=== PATIENT | male | born 1945 | race Caucasian/White ===

== ENCOUNTER 2021-03-07 12:52 | Outpatient (CLI) | payer MEDICARE, SELFPAY ==
--- NOTE | ~2021-03-07 | US_ITS ---
EXAMINATION: US venous doppler LE RT EXAM DATE: 03/07/2021 13:59 INDICATION: Right leg pain. TECHNIQUE: Multiple grayscale, color flow and Doppler images of the right lower extremity deep venous system were obtained and reviewed. There is no prior study for comparison. FINDINGS: The right common femoral, femoral and profunda veins demonstrate normal color flow, respira tory variation, augmentation and compressibility. Compressibility, color flow confirmed within the r ight popliteal, posterior tibial, peroneal, and greater saphenous veins. IMPRESSION: 1. No right lower extremity deep venous thrombosis. Reviewed, dictated and finalized at location A.
== END 2021-03-07 12:53 | disposition home or self-care (01) ==
PROVIDERS: PCP Family Medicine; Visit Provider Family Medicine
DX: M79.604 Pain in right leg (principal); M79.89 Other specified soft tissue disorders
CPT/HCPCS: 93971

== ENCOUNTER 2021-03-17 09:58 | Emergency (ER) | payer MEDICARE, SELFPAY ==
--- NOTE | ~2021-03-17 | US_ITS ---
EXAMINATION: US venous doppler LE RT EXAM DATE: 03/17/2021 12:17 INDICATION: Right lower extremity pain and swelling. TECHNIQUE: Multiple grayscale, color flow and Doppler images of the right lower extremity deep venous system were obtained and reviewed. Comparison is made to prior examination from 03/07/2021. FINDINGS: The right common femoral, femoral and profunda veins demonstrate normal color flow, respira tory variation, augmentation and compressibility. Compressibility, color flow confirmed within the r ight popliteal, posterior tibial, peroneal veins. Nearly completely thrombosed right greater saphenous vein and another serpiginous calf varicosity whi ch was imaged. There is calf edema. IMPRESSION: 1. Right greater saphenous and calf superficial thrombophlebitis. 2. No right lower extremity deep venous thrombosis. Reviewed, dictated and finalized at location A.
[2021-03-17 10:12] VITALS: BP 165/65; PULSE 68; RESP 18; TEMP 36.4; O2SAT 97
--- NOTE | 2021-03-17 11:11 | ED.LOWEXIN ---
HPI - Extremity Injury (Lower) General Chief Complaint: Extremity Injury, Lower Stated Complaint: right leg pain Time Seen by Provider: 03/17/21 11:10 History of Present Illness HPI Narrative: 76yo male w/ h/o htn, DM, presents to the ED for leg pain. Right leg pain for the past 2 weeks. Started in popiteal fossa. Negative Doppler 10 days ago. Since that time the pain has spread up the inner thigh to his groin and he now has swelling and a palpable cord there as well. The pain is moderate. Tender to touch. No Chest pain, SOB, fever. Related Data Allergies Allergy/AdvReac Type Severity Reaction Status Date / Time No Known Drug Allergies Allergy Unknown Verified 03/17/21 11:08 Review of Systems Review of Systems: All systems reviewed & are unremarkable except as noted in HPI and below Constitutional: Constitutional: Denies chills, Denies fever(s) and Denies weakness Eyes: Eyes: Reports no additional eye complaints ENT: Reports system reviewed and no additional complaints, except as documented Cardiovascular: Cardiovascular: Denies chest pain Respiratory: Respiratory: Denies dyspnea Gastrointestinal: Gastrointestinal: Denies nausea Musculoskeletal: Musculoskeletal: Denies back pain Neurologic: Denies dizziness and Denies weakness [facility] Past Medical History Medical History (Updated 03/17/21 @ 13:15 by Andres Garcia MD) Arm fracture (1958) Normal colonoscopy (06/29/12) 07/19/2012 Surgical History Surgical History H/O nasal septoplasty (1992) Hx of cholecystectomy (1991) Family History Family History Grandparent Diabetes mellitus Hypertension Cerebrovascular accident Father Hypertension Family history of elevated blood lipids, Onset Age: 89 Family history of cardiovascular disease Cerebrovascular accident Mother Family history of elevated blood lipids, Onset Age: 93 Family history of cardiovascular disease Diabetes mellitus Hypertension Cerebrovascular accident Social History Social History Alcohol intake: current Exam Const: General: no acute distress and alert Nutritional Appearance: obese Orientation/consciousness: patient oriented x3 HENMT: Head: normal to inspection Neck: Neck: normal visual inspection Resp: Effort & Inspection: normal respiratory effort Auscultation: clear to auscultation bilaterally, no rales, no rhonchi and no wheezes Cardio: Jugular venous distension: no JVD Rate: regular rate Rhythm: regular rhythm GI: Inspection: non-distended GI Palp: Yes Soft to palpation and No Tenderness to palpation present (GI) Skin: Other: Minimal hyperemia to medial aspect of right knee Neuro: General: patient oriented x3, moves all extremities, no focal motor deficits and CN's II-XI intact bilaterally Speech: normal speech Extrem: General: edema bilateral (2+ to lower third of lower leg) Other: Mild tenderness to medial thigh Psych: Appearance: well kempt Affect: normal affect Course Vital Signs Vital signs: Vital Signs Temperature 36.4 C 03/17/21 10:12 Pulse Rate 68 03/17/21 10:12 Respiratory Rate 18 03/17/21 10:12 Blood Pressure 165/65 H 03/17/21 10:12 Pulse Oximetry 97 03/17/21 10:12 Temperature 36.4 C 03/17/21 10:12 Pulse Rate 70 03/17/21 13:26 Respiratory Rate 17 03/17/21 13:26 Blood Pressure 158/79 H 03/17/21 13:26 Pulse Oximetry 98 03/17/21 13:26 MDM - Extremity Injury (Lower) MDM Narrative Medical decision making narrative: Exam suspicious for GSV clot. GSV thrombophlebitis on US. Results called to Dr. Freitas. Will start on aspirin and have him follow-up in a few days. Medical Records Attestation: I reviewed the patient's medical records. Imaging Data Radiologist's impression: ITS Impressions Venous Doppler Study
[2021-03-17] MEDS: ASPIRIN 81 MG ENTERIC TABLET PO (13:24)
[2021-03-17 13:26] VITALS: BP 158/79; PULSE 70; RESP 17; O2SAT 98
== END 2021-03-17 13:27 | disposition home or self-care (01) ==
PROVIDERS: Emergency Provider Emergency Medicine; PCP Family Medicine
DX: I80.01 Phlebitis and thrombophlebitis of superficial vessels of right lower extremity (principal)
CPT/HCPCS: 93971; 99284; A9270

== ENCOUNTER 2021-03-19 16:30 | Outpatient (CLI) | payer MEDICARE, SELFPAY ==
--- NOTE | ~2021-03-19 | MR_ITS ---
EXAMINATION: MR lumbar spine wo con DATE: 03/19/2021 17:30 INDICATION: Lumbar spinal stenosis TECHNIQUE: Magnetic resonance imaging (MRI) of the lumbar spine was performed without intravenous con trast. Sequences included sagittal T2-weighted FSE, sagittal T2-weighted FS FSE, sagittal T1-weighted FSE, and axial T2-weighted FSE. COMPARISON: 09/07/2016 FINDINGS: 2 mm retrolisthesis L1 on L2, 3 mm retrolisthesis L2 on L3, 5 mm retrolisthesis L3 on L4 and 4 mm ant erolisthesis L4 on L5. Chronic mild anterior wedging of the L1 vertebral body with Schmorl's node katie ng the superior endplate. Normal marrow signal. Severe disc height loss at L5-S1. Moderate disc heig ht loss at L1-L2 through L4-L5 and mild disc height loss at T10-T11. The conus medullaris terminates at L1-L2. There is normal signal in the caudal spinal cord. Paravertebral soft tissues are unremarkab le. The following disc levels are specifically discussed: T12-L1: Disc is mildly bulging. There is mild bilateral facet joint osteoarthritis. There is no neura l foraminal stenosis. There is no central canal stenosis. L1-L2: Disc is bulging There is mild to moderate bilateral facet joint osteoarthritis. There is moder ate bilateral neural foraminal stenosis. There is mild central canal stenosis. L2-L3: Disc is bulging. Mild anterior epidural lipomatosis. There is moderate left and mild to modera te right facet joint osteoarthritis. There is moderate bilateral neural foraminal stenosis. There is mild to moderate central canal stenosis. L3-L4: Disc is bulging. Prominent epidural lipomatosis. There is moderate left and severe right facet joint osteoarthritis. There is moderate bilateral neural foraminal stenosis. There is severe central canal stenosis. L4-L5: Disc is bulging. There is severe bilateral facet joint osteoarthritis. There is moderate bilat eral neural foraminal stenosis. There is severe central canal stenosis. L5-S1: Disc is bulging with annular fissure and superimposed central disc extrusion with disc materia l extending a few millimeters cephalad and caudal to the level of the endplates. There is moderate to severe left and severe right facet joint osteoarthritis. There is mild to moderate bilateral neural foraminal stenosis. There is mild to moderate central canal stenosis. IMPRESSION: 1. Minimal progression and severe lumbar spondylosis. Reviewed, dictated and finalized at location A.
== END 2021-03-19 16:31 | disposition home or self-care (01) ==
PROVIDERS: PCP Family Medicine; Visit Provider Family Medicine
DX: M48.061 Spinal stenosis, lumbar region without neurogenic claudication (principal); M54.5 Low back pain; M47.816 Spondylosis without myelopathy or radiculopathy, lumbar region
CPT/HCPCS: 72148

== ENCOUNTER 2022-04-01 15:38 | Outpatient (CLI) | payer MEDICARE, SELFPAY ==
--- NOTE | ~2022-04-01 | XR_ITS ---
XR knee RT min 4V DATE: 04/01/2022 16:20 INDICATION: Pain, popping, movement felt in left knee for past 6 months. No injury. TECHNIQUE: Pierpoint and standing AP, PA and lateral views COMPARISON: None FINDINGS: There is severe joint space narrowing at the medial compartment. There is associated varus deformity. There is periarticular spurring at all 3 compartments. No fracture or dislocation or joint effusion, radiopaque intra-articular loose body or, calcinosis is noted. No periosteal reaction or bone destruction. 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 IMPRESSION: Tricompartment osteoarthritis, particularly severe at the medial co mpartment
== END 2022-04-01 15:39 | disposition home or self-care (01) ==
PROVIDERS: PCP Family Medicine; Visit Provider Physician Assistant
DX: M25.561 Pain in right knee (principal); M17.11 Unilateral primary osteoarthritis, right knee
CPT/HCPCS: 73564

== ENCOUNTER 2022-05-08 12:37 | Outpatient (CLI) | payer MEDICARE, SELFPAY ==
--- NOTE | 2022-05-08 12:52 | ECHO_ITS ---
Patient Info Name: Yash Aguirre Age: 77 years : 1945 Gender: Male Ht: 66 in Wt: 290 lbs BSA: 2.55 m2 HR: 63 bpm BP: 184 / 100 mmHg Heart Rhythm: Sinus Rhythm Technical Quality: Good Exam Date: 05/08/2022 1:04 PM Exam Location: [facility] Patient Status: Outpatient Admit Date: 05/08/2022 Staff Ordering Physician: Ghazal Jones PA-C Pump Machine Operator: Linda Vargas RDCS Attending Provider: Ghazal Jones PA-C Referring Physician: Karen MINOR; Exam Type: CA echo doppler color flow Study Info Indications R01.1 - Cardiac murmur, unspecified Complete two-dimensional, color flow and Doppler transthoracic echocardiogram is performed. Summary 1. Complete two-dimensional, color flow and Doppler transthoracic echocardiogram is performed. 2. Left ventricular chamber dimension is normal. 3. Left ventricular systolic function is normal, estimated at 60-65%. 4. There is moderately increased left ventricular wall thickness. 5. The left ventricular diastolic function is grade I diastolic dysfunction. 6. E/e' 12 is mildly elevated. 7. Left atrial chamber dimension is mildly enlarged. 8. There is moderate aortic valve sclerosis. 9. There is mild aortic valve stenosis with a peak velocity of 275 cm/s, mean gradient of 12 mmHg, and aortic valve area of 2.7 cm2. 10. There is mild to moderate aortic valve regurgitation. 11. There is trace mitral valve regurgitation. 12. There is trace tricuspid valve regurgitation. 13. The aortic root size at the sinus of Valsalva is mildly dilated at 4.4 cm. Left Ventricle E/e' 12 is mildly elevated. Left ventricular chamber dimension is normal. Left ventricular systolic function is normal, estimated at 60-65%. There is moderately increased left ventricular wall thickness. The left ventricular diastolic function is grade I diastolic dysfunction. Right Ventricle Right ventricular systolic function is normal and with normal TAPSE 1.9 cm. Right ventricular chamber dimension is normal. Left Atria Left atrial chamber dimension is mildly enlarged. Right Atria Right atrial chamber dimension is normal. Aortic Valve The aortic valve is trileaflet. There is moderate aortic valve sclerosis. There is mild aortic valve stenosis with a peak velocity of 275 cm/s, mean gradient of 12 mmHg, and aortic valve area of 2.7 cm2. There is mild to moderate aortic valve regurgitation. Pulmonic Valve There is no pulmonic regurgitation. Mitral Valve There is no mitral valve stenosis. There is trace mitral valve regurgitation. Tricuspid Valve RVSP is not calculated due to an inadequate TR jet. There is trace tricuspid valve regurgitation. Pericardium/Pleural There is no pericardial effusion. Inferior Vena Cava Normal inferior vena cava with >50% collapse upon inspiration consistent with normal right atrial pressure, 5 mmHg. Aorta The aortic root size at the sinus of Valsalva is mildly dilated at 4.4 cm. Left Ventricular Outflow Tract Name Value Normal LVOT 2D LVOT Diameter 2.5 cm LVOT Doppler LVOT Peak Gradient 5 mmHg
== END 2022-05-08 12:38 | disposition home or self-care (01) ==
PROVIDERS: PCP Family Medicine; Visit Provider Physician Assistant
DX: R01.1 Cardiac murmur, unspecified (principal); I51.7 Cardiomegaly; I35.8 Other nonrheumatic aortic valve disorders
CPT/HCPCS: 93306

== ENCOUNTER 2022-08-06 10:52 | Outpatient (CLI) | payer MEDICARE, SELFPAY | END 2022-08-06 10:53 | disposition home or self-care (01) | PROVIDERS: PCP Family Medicine; Visit Provider Nurse Practitioner | DX: N18.30 Chronic kidney disease, stage 3 unspecified (principal); E78.2 Mixed hyperlipidemia; E11.21 Type 2 diabetes mellitus with diabetic nephropathy | CPT/HCPCS: 36415 ==

== ENCOUNTER 2022-11-24 15:22 | Emergency (ER) | payer MEDICARE, SELFPAY ==
--- NOTE | ~2022-11-24 | CT_ITS ---
EXAMINATION: CT abdomen pelvis w con DATE: 11/24/2022 22:44 INDICATION: GI bleed TECHNIQUE: Computed tomography (CT) of the abdomen and pelvis was performed with 100 mL Omnipaque-350 intravenous contrast. Automated exposure control and iterative reconstruction technique were employe d. The dose-length product was 1524.86 mGy-cm. COMPARISON: None. FINDINGS: Lower thorax: Cardiomegaly. Aortic ectasia. Coronary artery, aortic, and mitral calcifications. Liver: Normal. Biliary/Gallbladder: Gallbladder is absent. No bile duct dilation. Pancreas: No mass or duct dilation. Spleen: Multiple splenic cysts/hemangiomas Adrenals: 8 mm indeterminate right adrenal nodule, likely adenoma. Kidneys: No suspicious mass. No hydronephrosis. Multiple punctate bilateral renal calcifications. Sim ple midpole right cyst. GI tract: Mild distal esophageal and gastric wall edema. No small or large bowel dilation. Normal dimple endix. Diverticulosis without diverticulitis. Mesentery/Peritoneum: No ascites, mass, or free air. Retroperitoneum: No mass. Atherosclerotic abdominal aortic and/or arterial calcifications. Significan t lower abdominal and pelvic vessel tortuosity. Pelvis: Bladder wall thickening likely secondary to outlet compromise from marked prostatomegaly. Soft Tissues: Uncomplicated fat-containing bilateral inguinal hernias. Bones: No acute osseous finding. IMPRESSION: Mild esophagitis/gastritis. Otherwise, no acute abdominopelvic process detected Reviewed, dictated and finalized at location K. [employer] ATT[employer]
[2022-11-24 15:32] VITALS: BP 132/70; PULSE 83; RESP 16; TEMP 36.4; O2SAT 95
[2022-11-24 15:59] LABS: Basophils Percent Auto 0.4 % (0.2-1.2); Eosinophils Absolute Auto 0.2 K/mm3 (0-0.3); Eosinophils Percent Auto 2.4 % (0-4.4); Hematocrit 25.2 % (42.0-52.0); Hemoglobin 7.9 g/dL (14.0-18.0); Immature Granulocyte Absolute 0.05 K/mm3 (0.00-0.031); Immature Granulocyte Percent A 0.7 % (0-0.5); Lymphocytes Absolute Auto 2.01 K/mm3 (0.9-3.2); Lymphocytes Percent Auto 26.7 % (18.3-44.2); Mean Corpuscular HGB Conc 31.3 g/dl (32-36); Mean Corpuscular Hemoglobin 27.9 pg (26-34); Monocytes Absolute Auto 0.5 K/mm3 (0.1-0.6); Monocytes Percent Auto 6.8 % (2.6-8.5); Neutrophils Absolute Auto 4.8 K/mm3 (1.3-6.7); Nucleated Red Blood Cells Perc 0.3 % (0.0-0.2); Platelet Count Result 207 k/mm3 (150-375); Red Blood Count 2.83 M/mm3 (4.6-6.20); Red Cell Distribution Width 13.7 % (11.5-14.5); White Blood Count 7.5 K/mm3 (4.5-10.0)
[2022-11-24 16:10] LABS: Alanine Aminotransferase 48 U/L (6-50); Alkaline Phosphatase 24 U/L (38-126); Anion Gap 7 mmol/L (8-16); Aspartate Amino Transferase 43 U/L (17-59); Bilirubin,Total 0.2 mg/dL (0.2-1.3); Blood Urea Nitrogen 31 mg/dL (9-20); Calcium 8.7 mg/dL (8.4-10.2); Carbon Dioxide 28 mmol/L (22-30); Chloride 99 mmol/L (98-107); Estimated CRCL calculation 41 ml/min; Estimated Glomerular Filt Rate 39; Glucose 117 mg/dL (65-110); Potassium 3.9 mmol/L (3.4-5.0); Sodium 134 mmol/L (137-145)
[2022-11-24 16:18] LABS: INR 1.2; Prothrombin Time 14.5 Seconds (11.1-14.7)
[2022-11-24 16:19] LABS: Partial Thromboplastin Time 26.8 SECONDS (22.3-36.8)
[2022-11-24 18:31] VITALS: BP 134/70; PULSE 62; RESP 17; TEMP 36.7; O2SAT 96
[2022-11-24 21:54] VITALS: BP 149/84; PULSE 75; RESP 14; O2SAT 99
--- NOTE | 2022-11-24 22:31 | PC.NURSE ---
Patient off unit to CT.
--- NOTE | 2022-11-24 23:14 | ED.GIBLEED ---
HPI - GI Bleed General Chief complaint: GI Bleed Stated complaint: lightheaded-bloody diarrhea on Wednesday Time Seen by Provider: 11/24/22 21:49 History of Present Illness HPI Narrative: Patient states that on Wednesday he started having large amounts of bloody diarrhea, multiple episodes. Denied any abdominal pain. No nausea or vomiting. He finally came in today even though it was already starting to clear up and improve. Related Data Home Medications Medication Instructions Recorded Confirmed gabapentin 300 mg capsule 300 mg PO TID 12/10/21 08/04/22 Allergies Allergy/AdvReac Type Severity Reaction Status Date / Time No Known Drug Allergies Allergy Unknown Verified 08/04/22 10:59 Review of Systems Review of Systems: CONST: No fever. HEENT: No sore throat C/V: No chest pain RESP: No cough GI: Bloody diarrhea that has been improving, no nausea vomiting or abdominal pain : No dysuria. M/S: No joint pain. SKIN: No rash. NEURO: [No headache or focal numbness or weakness] PSYCH: [No depression] [facility] Past Medical History Medical History Arm fracture (195) History of chicken pox History of measles History of mumps Normal colonoscopy (06/29/12) 07/19/2012 Spinal stenosis Surgical History Surgical History H/O nasal septoplasty (1992) History of tonsillectomy (~1949) Hx of cholecystectomy (1991) Family History Family History Grandparent Diabetes mellitus Hypertension Cerebrovascular accident Father Hypertension Family history of elevated blood lipids, Onset Age: 89 Family history of cardiovascular disease Cerebrovascular accident Mother Family history of elevated blood lipids, Onset Age: 93 Family history of cardiovascular disease Diabetes mellitus Hypertension Cerebrovascular accident Social History Social History Smoking status: Never smoker Alcohol intake: current Alcohol use details: occasionnally Substance use: never Substance use type: does not use Gender identity (if verbalized by the patient): Male Agree to blood products: Yes Exam Narrative: EXAMINATION OF ORGAN SYSTEMS/BODY AREAS: Constitutional: Vital signs per nursing GENERAL:[No acute distress, non-toxic appearing.] HEAD: Normal with no signs of head trauma. EYES: EOMI, conjunctiva normal ENT: Hearing grossly intact LUNGS: Nonlabored breathing. HEART: [Regular rate and rhythm] ABD: [Soft], [nontender to palpation] RECTAL: Dark stool in rectal vault that is hemoccult positive EXT: Normal range of motion SKIN: [No rashes or lesions.] NEURO: [Alert and oriented x 3. No gross focal sensory or strength deficits.] PSYCH: Normal affect Course Vital Signs Vital signs: Vital Signs Temperature 97.6 F 11/24/22 15:32 Pulse Rate 83 11/24/22 15:32 Respiratory Rate 16 11/24/22 15:32 Blood Pressure 132/70 11/24/22 15:32 Pulse Oximetry 95 11/24/22 15:32 Oxygen Delivery Room Air 11/24/22 15:32 Temperature 98.0 F 11/24/22 18:31 Pulse Rate 75 11/24/22 21:54 Respiratory Rate 14 11/24/22 21:54 Blood Pressure 149/84 H 11/24/22 21:54 Pulse Oximetry 99 11/24/22 21:54 Oxygen Delivery Room Air 11/24/22 15:32 MDM - GI Bleed MDM Narrative Medical decision making narrative: 69-year-old male presenting with bloody diarrhea that has been resolving, vital signs stable here, abdomen is soft and nontender, rectal exam there is some dark stool in the vault that is Hemoccult positive. Hemoglobin here is low at 7.9, though I do not have a baseline. Coags are normal. CT abdomen/pelvis shows esophagitis, thus I suspect this may be the cause of his dark stools, he is started Protonix. I did tell the patient I would like him to be admitted, however he is adamant that he wants to go
--- NOTE | 2022-11-24 23:14 | PC.NURSE ---
Patient report given to DONA Bolaños. All questions answered and care of patient transferred.
[2022-11-24] MEDS: PANTOPRAZOLE SODIUM IV 40 MG VIAL IV PUSH (23:42)
== END 2022-11-25 00:05 | disposition home or self-care (01) ==
PROVIDERS: Emergency Medicine; Emergency Provider Emergency Medicine; PCP Family Medicine
DX: K62.5 Hemorrhage of anus and rectum (principal); K20.90 Esophagitis, unspecified without bleeding; Z79.82 Long term (current) use of aspirin; Z79.84 Long term (current) use of oral hypoglycemic drugs; Z79.01 Long term (current) use of anticoagulants
CPT/HCPCS: 36415; 74177; 80053; 85025; 85610; 85730; 86850; 86900; 86901; 96374; 99284; C9113; Q9967

== ENCOUNTER 2022-11-26 10:58 | Outpatient (CLI) | payer MEDICARE, SELFPAY ==
[2022-11-26 19:47] LABS: Hematocrit 26.9 % (42.0-52.0); Hemoglobin 8.5 g/dL (14.0-18.0); Mean Corpuscular HGB Conc 31.6 g/dl (32-36); Mean Corpuscular Hemoglobin 27.8 pg (26-34); Mean Corpuscular Volume 87.9 fl (80-100); Mean Platelet Volume 10.1 fl (7.4-10.4); Platelet Count Result 273 k/mm3 (150-375); Red Blood Count 3.06 M/mm3 (4.6-6.20); Red Cell Distribution Width 14.4 % (11.5-14.5); White Blood Count 7.3 K/mm3 (4.5-10.0)
== END 2022-11-26 10:59 | disposition home or self-care (01) ==
LOC: ANHGOSHLAB 11:00
PROVIDERS: PCP Family Medicine; Visit Provider Nurse Practitioner
DX: D64.9 Anemia, unspecified (principal); K20.90 Esophagitis, unspecified without bleeding; K62.5 Hemorrhage of anus and rectum
CPT/HCPCS: 36415; 85027

== ENCOUNTER 2023-03-18 11:01 | Outpatient (CLI) | payer MEDICARE, SELFPAY ==
[2023-03-18 18:54] LABS: Iron 59 ug/dL (49-181)
[2023-03-18 19:05] LABS: Percent Iron Saturation 12 % (20-50)
[2023-03-18 19:32] LABS: Hemoglobin 12.2 g/dL (14.0-18.0); Mean Corpuscular HGB Conc 30.5 g/dl (32-36); Mean Corpuscular Hemoglobin 25.1 pg (26-34); Mean Corpuscular Volume 82.1 fl (80-100); Mean Platelet Volume 10.5 fl (7.4-10.4); Platelet Count Result 236 k/mm3 (150-375); Red Blood Count 4.87 M/mm3 (4.6-6.20); Red Cell Distribution Width 15.3 % (11.5-14.5); White Blood Count 7.2 K/mm3 (4.5-10.0)
== END 2023-03-18 11:02 | disposition home or self-care (01) ==
LOC: ANHGOSHLAB 11:03
PROVIDERS: PCP Family Medicine; Visit Provider Family Medicine
DX: K62.5 Hemorrhage of anus and rectum (principal); D64.9 Anemia, unspecified
CPT/HCPCS: 36415; 82728; 83540; 83550; 85027

== ENCOUNTER → 2023-03-18 13:51 | Outpatient (CLI) | payer MEDICARE, SELFPAY ==
--- NOTE | ~2023-03-18 | XR_ITS ---
EXAMINATION: XR knee LT min 4V DATE: 03/18/2023 14:11 INDICATION: Left knee pain TECHNIQUE: Four views of the left knee were obtained. COMPARISON: None. FINDINGS: Alignment is normal. No fracture or osteochondral lesion. There is mild tricompartmental os teoarthritis characterized by tiny marginal osteophytes. There is a moderate size knee joint effusion . There is soft tissue swelling surrounding the knee. IMPRESSION: 1. Moderate size knee joint effusion and osteoarthritis without acute osseous abnormality. Reviewed, dictated and finalized at location L. IMPRESSION: 1. Moderate size knee joint effusion and osteoarthritis without acute osseous a bnormality.
--- NOTE | ~2023-03-18 | XR_ITS ---
EXAMINATION: XR knee RT min 4V DATE: 03/18/2023 14:11 INDICATION: Right knee pain. TECHNIQUE: 4 views of right knee were obtained. COMPARISON: Right knee radiographs 04/01/2022 FINDINGS: There is varus angulation at the knee. No fracture. There is severe osteoarthritis of media l compartment and mild osteoarthritis of lateral and patellofemoral compartments. There is a small kn ee joint effusion. IMPRESSION: 1. Severe right knee osteoarthritic 2. Small right knee joint effusion. Reviewed, dictated and finalized at location E.
== END ==
PROVIDERS: PCP Family Medicine; Visit Provider Family Medicine
DX: M17.0 Bilateral primary osteoarthritis of knee (principal); M25.461 Effusion, right knee; M25.462 Effusion, left knee
CPT/HCPCS: 73564

== ENCOUNTER 2023-06-25 09:30 | Outpatient (CLI) | payer MEDICARE, SELFPAY ==
[2023-06-25 14:20] LABS: Hemoglobin 13.3 g/dL (14.0-18.0); Mean Corpuscular HGB Conc 30.9 g/dl (32-36); Mean Corpuscular Hemoglobin 26.9 pg (26-34); Mean Platelet Volume 9.7 fl (7.4-10.4); Platelet Count Result 265 k/mm3 (150-375); Red Blood Count 4.94 M/mm3 (4.6-6.20); Red Cell Distribution Width 14.8 % (11.5-14.5)
[2023-06-25 14:39] LABS: Alanine Aminotransferase 50 U/L (6-50); Albumin Level 4.3 g/dL (3.5-5.1); Alkaline Phosphatase 23 U/L (38-126); Anion Gap 8 mmol/L (8-16); Aspartate Amino Transferase 62 U/L (17-59); Bilirubin,Total 0.5 mg/dL (0.2-1.3); Blood Urea Nitrogen 17 mg/dL (9-20); Calcium 9.5 mg/dL (8.4-10.2); Carbon Dioxide 31 mmol/L (22-30); Chloride 97 mmol/L (98-107); Cholesterol 151 mg/dL (0-200); Estimated Glomerular Filt Rate 58; Glucose 117 mg/dL (65-110); HDL Direct 21 mg/dL; Potassium 4.1 mmol/L (3.4-5.0); Sodium 136 mmol/L (137-145); Triglycerides 247 mg/dL (<150)
[2023-06-25 14:50] LABS: LDL Cholesterol Direct 84 mg/dL
[2023-06-25 15:50] LABS: Hemoglobin A1C 7.3 % (<5.7)
== END 2023-06-25 09:31 | disposition home or self-care (01) ==
LOC: ANHGOSHLAB 09:30
PROVIDERS: PCP Family Medicine; Visit Provider Family Medicine
DX: I12.9 Hypertensive chronic kidney disease with stage 1 through stage 4 chronic kidney disease, or unspecified chronic kidney disease (principal); D64.9 Anemia, unspecified; E11.21 Type 2 diabetes mellitus with diabetic nephropathy; E78.2 Mixed hyperlipidemia
CPT/HCPCS: 36415; 80053; 80061; 83036; 84443; 85027

== ENCOUNTER 2023-07-08 09:16 | Outpatient (CLI) | payer MEDICARE, SELFPAY ==
--- NOTE | ~2023-07-08 | US_ITS ---
EXAMINATION: US arterial ankle brachial ind DATE: 07/08/2023 10:12 INDICATION: Anesthesia of skin TECHNIQUE: Segmental pressures and plethysmographic and Doppler waveforms of the brachial and lower e xtremity arteries were obtained. COMPARISON: None. FINDINGS: Right and left brachial artery pressures of 168 mm Hg and 167 mm Hg, respectively, are concordant (no rmal difference <= 30 mmHg). The right ankle-brachial index (LORE) is 1.18 (normal >= 0.9-1.0). The right great toe-brachial index (TBI) is 0.54 (normal >= 0.65). Arterial Doppler waveforms are triphasic with brisk systolic upstroke s at both right posterior tibial and dorsalis pedis arteries. The left LORE is 1.17. The left TBI is 1.01. Arterial Doppler waveforms are biphasic with brisk systol ic upstrokes at both left posterior tibial and dorsalis pedis arteries. IMPRESSION: 1. Mild arterial occlusive disease to the right lower limb with normal right LORE but mildly decreased right TBI. 2. No significant arterial occlusive disease to the left lower limb with normal left LORE and TBI. Reviewed, dictated and finalized at location A. IMPRESSION: 1. Mild arterial occlusive disease to the right lower limb with normal right AB I but mildly decreased right TBI. 2. No significant arterial occlusive disease to the left lower limb with normal left LORE and TBI.
== END 2023-07-08 09:17 | disposition home or self-care (01) ==
PROVIDERS: PCP Family Medicine; Visit Provider Family Medicine
DX: I73.9 Peripheral vascular disease, unspecified (principal); M79.89 Other specified soft tissue disorders; R20.0 Anesthesia of skin
CPT/HCPCS: 93922

== ENCOUNTER 2023-07-20 13:49 | Outpatient (CLI) | payer MEDICARE, SELFPAY ==
[2023-07-20 19:26] LABS: Iron 80 ug/dL (49-181)
[2023-07-20 19:37] LABS: Percent Iron Saturation 16 % (20-50)
== END 2023-07-20 13:50 | disposition home or self-care (01) ==
LOC: ANHGOSHLAB 13:52
PROVIDERS: PCP Family Medicine; Visit Provider Nurse Practitioner
DX: D50.9 Iron deficiency anemia, unspecified (principal)
CPT/HCPCS: 36415; 83540; 83550

== ENCOUNTER 2023-11-29 08:34 | Outpatient (CLI) | payer MEDICARE, SELFPAY ==
[2023-11-29 13:18] LABS: Hematocrit 41.4 % (42.0-52.0); Mean Corpuscular HGB Conc 31.4 g/dl (32-36); Mean Corpuscular Hemoglobin 27.3 pg (26-34); Mean Corpuscular Volume 86.8 fl (80-100); Mean Platelet Volume 9.9 fl (7.4-10.4); Platelet Count Result 216 k/mm3 (150-375); Red Blood Count 4.77 M/mm3 (4.6-6.20); Red Cell Distribution Width 13.2 % (11.5-14.5); White Blood Count 6.1 K/mm3 (4.5-10.0)
[2023-11-29 13:20] LABS: Alanine Aminotransferase 52 U/L (6-50); Albumin Level 4.2 g/dL (3.5-5.1); Alkaline Phosphatase 29 U/L (38-126); Anion Gap 8 mmol/L (8-16); Aspartate Amino Transferase 56 U/L (17-59); Bilirubin,Total 0.6 mg/dL (0.2-1.3); Blood Urea Nitrogen 18 mg/dL (9-20); Calcium 9.6 mg/dL (8.4-10.2); Carbon Dioxide 33 mmol/L (22-30); Chloride 97 mmol/L (98-107); Cholesterol 114 mg/dL (0-200); Estimated Glomerular Filt Rate 53; Glucose 145 mg/dL (65-110); HDL Direct 24 mg/dL; Potassium 3.8 mmol/L (3.4-5.0); Sodium 138 mmol/L (137-145); Triglycerides 131 mg/dL (<150)
[2023-11-29 13:31] LABS: LDL Cholesterol Direct 69 mg/dL
[2023-11-29 13:49] LABS: Creatinine Urine 129.4 mg/dL
[2023-11-29 14:38] LABS: Hemoglobin A1C 7.5 % (<5.7)
[2023-11-29 14:49] LABS: MALB Creatinine Ratio 782.1 mg/g (0-30); Microalbumin Urine Random 1012.1 mg/L (0-16.7)
== END 2023-11-29 08:35 | disposition home or self-care (01) ==
LOC: ANHGOSHLAB 08:36
PROVIDERS: PCP Family Medicine; Visit Provider Nurse Practitioner
DX: E11.21 Type 2 diabetes mellitus with diabetic nephropathy (principal); E78.2 Mixed hyperlipidemia; D64.9 Anemia, unspecified
CPT/HCPCS: 36415; 80053; 80061; 82043; 83036; 85027

== ENCOUNTER 2023-12-08 15:06 | Outpatient (NON) | payer MEDICARE, SELFPAY ==
[2023-12-08 19:16] LABS: Creatinine Urine 80.5 mg/dL
[2023-12-08 19:24] LABS: IFOB Positive Control Positive; Immunochemical Fecal Occult Bl Negative (N)
[2023-12-08 19:58] LABS: MALB Creatinine Ratio 665.1 mg/g (0-30); Microalbumin Urine Random 535.4 mg/L (0-16.7)
== END 2023-12-08 15:07 | disposition home or self-care (01) ==
LOC: ANHGOSHLAB 15:08
PROVIDERS: PCP Family Medicine; Visit Provider Family Medicine
DX: R19.5 Other fecal abnormalities (principal); E11.21 Type 2 diabetes mellitus with diabetic nephropathy
CPT/HCPCS: 82043; 82274

== ENCOUNTER 2024-03-31 08:51 | Outpatient (CLI) | payer MEDICARE, SELFPAY ==
[2024-03-31 18:32] LABS: Hematocrit 42.2 % (42.0-52.0); Hemoglobin 13.2 g/dL (14.0-18.0); Mean Corpuscular HGB Conc 31.3 g/dl (32-36); Mean Corpuscular Hemoglobin 27.3 pg (26-34); Mean Corpuscular Volume 87.2 fl (80-100); Mean Platelet Volume 10.3 fl (7.4-10.4); Platelet Count Result 202 k/mm3 (150-375); Red Blood Count 4.84 M/mm3 (4.6-6.20); Red Cell Distribution Width 13.6 % (11.5-14.5)
[2024-03-31 18:41] LABS: Alanine Aminotransferase 47 U/L (6-50); Albumin Level 4.3 g/dL (3.5-5.1); Alkaline Phosphatase 26 U/L (38-126); Anion Gap 8 mmol/L (4-12); Aspartate Amino Transferase 55 U/L (17-59); Bilirubin,Total 0.8 mg/dL (0.2-1.3); Blood Urea Nitrogen 21 mg/dL (9-20); Calcium 9.8 mg/dL (8.4-10.2); Carbon Dioxide 29 mmol/L (22-30); Chloride 103 mmol/L (98-107); Cholesterol 110 mg/dL (0-200); Estimated Glomerular Filt Rate 53; Glucose 134 mg/dL (65-110); HDL Direct 22 mg/dL; Potassium 3.9 mmol/L (3.4-5.0); Sodium 140 mmol/L (137-145); Triglycerides 153 mg/dL (<150)
[2024-03-31 18:42] LABS: Complement C3 119 mg/dL (88-165)
[2024-03-31 18:44] LABS: Albumin Level 4.3 g/dL (3.5-5.1); Anion Gap 8 mmol/L (4-12); Blood Urea Nitrogen 21 mg/dL (9-20); Calcium 9.8 mg/dL (8.4-10.2); Carbon Dioxide 30 mmol/L (22-30); Chloride 102 mmol/L (98-107); Estimated Glomerular Filt Rate 53; Glucose 134 mg/dL (65-110); Phosphorus 3.7 mg/dL (2.5-4.5); Potassium 3.7 mmol/L (3.4-5.0); Sodium 140 mmol/L (137-145)
[2024-03-31 18:50] LABS: Creatinine Urine 118.1 mg/dL; Total Protein Urine Random 104 mg/dL; Ur Ttl Prot Creatinine Ratio 0.88 mg/mg (0-0.20)
[2024-03-31 18:52] LABS: LDL Cholesterol Direct 69 mg/dL
[2024-03-31 19:01] LABS: Hemoglobin A1C 7.2 % (<5.7)
[2024-04-02 04:58] LABS: Protein, Total 7.3 g/dL (6.1-8.1)
[2024-04-03 12:58] LABS: Abnormal Protein Band 1 0.7 g/dL (NONE DETECTED); Alpha 1 Globulin 0.3 g/dL (0.2-0.3); Alpha 2 Globulin 0.6 g/dL (0.5-0.9); Beta 1 Globulin 0.6 g/dL (0.4-0.6); Gamma Globulin 1.5 g/dL (0.8-1.7)
[2024-04-03 16:18] LABS: Creatinine, Random Urine 116 mg/dL (20-320); Total Protein/Creatinine Ratio 828 mg/g creat (25-148)
[2024-04-04 16:09] LABS: Anti Glomerular Basement Memb <1.0 AI
[2024-04-05 05:14] LABS: ANCA Screen NEGATIVE (NEGATIVE)
[2024-04-14 06:54] LABS: Abnormal Protein Band 1 2 mg/dL (NONE DETECTED)
== END 2024-03-31 08:52 | disposition home or self-care (01) ==
PROVIDERS: Internal Medicine Nephrology; PCP Family Medicine; Visit Provider Family Medicine
DX: D64.9 Anemia, unspecified (principal); I12.9 Hypertensive chronic kidney disease with stage 1 through stage 4 chronic kidney disease, or unspecified chronic kidney disease; N18.9 Chronic kidney disease, unspecified; E78.2 Mixed hyperlipidemia; R80.9 Proteinuria, unspecified; E11.21 Type 2 diabetes mellitus with diabetic nephropathy; E11.29 Type 2 diabetes mellitus with other diabetic kidney complication
CPT/HCPCS: 36415; 80053; 80061; 80069; 82570; 83036; 83520; 84100; 84155; 84156; 84165; 84166; 84443; 85027; 86036; 86038; 86160

== ENCOUNTER 2024-05-10 00:21 | Day surgery (SDC) | payer MEDICARE, SELFPAY ==
[2024-05-02 12:48] VITALS: BMI 46.2
--- NOTE | 2024-05-02 13:49 | PC.NURSE ---
Spoke with _PATIENT__ regarding medication _XARELTO_. Pt. verbalizes understanding that the last dose of _XARELTO_ is to be taken on _05/07/2024_ and the Endoscopist will instruct them when to restart after the procedure.
[2024-05-10 10:18] VITALS: BP 175/106; PULSE 74; RESP 20; TEMP 36.7; O2SAT 96; BMI 45.4
[2024-05-10] MEDS: LACTATED RINGERS 1,000 ML 150 ML IV CONT (10:30)
[2024-05-10 10:35] LABS: Glucose Point of Care 131 mg/dl (65-105)
[2024-05-10 10:37] VITALS: BP 176/88
--- NOTE | 2024-05-10 10:47 | WPDANESEPPF ---
Anes - Initial Pre Proc Eval Procedure: Operation Date: 05/10/24 11:30 Proposed Procedures p Screening Colonoscopy - Artur aGines MD Date/Time: 05/10/24 10:47 Surgeon: Artur Gaines MD Pre Op Diagnosis: Neoplasm screening Patient Data Age: 79 Gender: M Height: 1.7 m Weight: 131.6 kg Last Vital Signs Temp 98.1 F 05/10/24 10:18 Pulse 74 05/10/24 10:18 Resp 20 05/10/24 10:18 BP 176/88 H 05/10/24 10:37 Pulse Ox 96 05/10/24 10:18 O2 Del Method Room Air 05/10/24 10:18 Allergies Allergy/AdvReac Type Severity Reaction Status Date / Time No Known Drug Allergies Allergy Unknown Verified 05/10/24 10:16 Home Medications Medication Instructions Recorded Confirmed Type triamcinolone acetonide 0.1 % See Rx Instructions .Route 04/08/23 05/10/24 Rx topical cream .COMPLEX #80 grams simvastatin 10 mg tablet 10 mg PO DAILY #90 tabs 10/18/23 05/10/24 Rx metoprolol succinate 25 mg 25 mg PO DAILY #90 tabs 12/10/23 05/10/24 Rx tablet,extended release 24 hr lisinopril 20 See Rx Instructions .Route 01/17/24 05/10/24 Rx mg-hydrochlorothiazide 25 mg tablet .COMPLEX #90 tabs doxazosin 8 mg tablet See Rx Instructions .Route 02/16/24 05/10/24 Rx .COMPLEX #90 tabs rivaroxaban 20 mg tablet (Xarelto) See Rx Instructions .Route 02/16/24 05/10/24 Rx .COMPLEX #90 tabs metformin 1,000 mg tablet 1,000 mg PO BID #180 tabs 03/07/24 05/10/24 Rx fenofibrate micronized 134 mg See Rx Instructions .Route 03/08/24 05/10/24 Rx capsule .COMPLEX #90 caps ferrous sulfate 324 mg (65 mg See Rx Instructions .Route 03/20/24 05/10/24 Rx iron) tablet,delayed release .COMPLEX #60 tabs finasteride 5 mg tablet See Rx Instructions .Route 04/07/24 05/10/24 Rx .COMPLEX #90 tabs Glucosamine Chondroitin 1 cap PO DAILY 05/02/24 05/10/24 History acetaminophen 500 mg tablet 500 mg PO BID 05/02/24 05/10/24 History saw palmetto 450 mg capsule 450 mg PO DAILY 05/02/24 05/10/24 History gabapentin 300 mg capsule See Rx Instructions .Route 05/04/24 05/10/24 Rx .COMPLEX #90 caps Laboratory Tests 05/10/24 10:33 POC Capillary Glucose 131 H mg/dl (65-105) Patient hx anesthesia problems: none Family hx anesthesia problems: none Results Review: All pre-operative results and documents have been reviewed as part of the pre-operative evaluation. [facility] Past Medical History Medical History Anticoagulant long-term use Arm fracture (1958) Colon cancer screening History of chicken pox History of measles History of mumps Hx of deep venous thrombosis Intermittent diarrhea Lower GI bleed Normal colonoscopy (06/29/12) 07/19/2012 Spinal stenosis Surgical History Surgical History H/O nasal septoplasty (1992) History of tonsillectomy (~1949) Hx of cholecystectomy (1991) Family History Family History Grandparent Diabetes mellitus Hypertension Cerebrovascular accident Father Hypertension Family history of elevated blood lipids, Onset Age: 89 Family history of cardiovascular disease Cerebrovascular accident Mother Family history of elevated blood lipids, Onset Age: 93 Family history of cardiovascular disease Diabetes mellitus Hypertension Cerebrovascular accident Social History Social History Smoking status: Never smoker Alcohol intake: current Alcohol use details: occasionnally Substance use: never Substance use type: does not use Lack of Transportation: No Lack of Food: Never True Current Housing: I Have Housing Concerned About Future Housing: No Difficulty Paying Gas/Electric Bills: No Difficulty Paying for Meds: Decline to Answer Currently Unemployed: No Education: Bachelor's Degree Diffic
--- NOTE | 2024-05-10 11:05 | PM.HPGS ---
History of Present Illness History of Present Illness Consent: Risks, benefits, and alternatives have been discussed and questions answered. Patient agrees to proceed with procedure. Chief complaint: Neoplasm screening Narrative: Yash Aguirre is a 79 year old male here for colonoscopy, last one 2011, had episode rectal bleeding months ago Review of Systems Review of Systems: All systems reviewed & are unremarkable except as noted in HPI and below PMFSH Past Medical History Medical History Anticoagulant long-term use Arm fracture (1959) Colon cancer screening History of chicken pox History of measles History of mumps Hx of deep venous thrombosis Intermittent diarrhea Lower GI bleed Normal colonoscopy (06/29/12) 07/19/2012 Spinal stenosis Surgical History Surgical History H/O nasal septoplasty (1992) History of tonsillectomy (~1949) Hx of cholecystectomy (1991) Family History Family History Grandparent Diabetes mellitus Hypertension Cerebrovascular accident Father Hypertension Family history of elevated blood lipids, Onset Age: 89 Family history of cardiovascular disease Cerebrovascular accident Mother Family history of elevated blood lipids, Onset Age: 93 Family history of cardiovascular disease Diabetes mellitus Hypertension Cerebrovascular accident Social History Social History Smoking status: Never smoker Alcohol intake: current Alcohol use details: occasionnally Substance use: never Substance use type: does not use Lack of Transportation: No Lack of Food: Never True Current Housing: I Have Housing Concerned About Future Housing: No Difficulty Paying Gas/Electric Bills: No Difficulty Paying for Meds: Decline to Answer Currently Unemployed: No Education: Bachelor's Degree Difficulty w/ Childcare or Family Care: No Living arrangements: alone Occupation/Education: retired Gender identity (if verbalized by the patient): Male Spiritual care concerns: No Agree to blood products: Yes Meds Home Medications and Allergies Home Medications Medication Instructions Recorded Confirmed Type triamcinolone acetonide 0.1 % See Rx Instructions .Route 04/08/23 05/10/24 Rx topical cream .COMPLEX #80 grams simvastatin 10 mg tablet 10 mg PO DAILY #90 tabs 10/18/23 05/10/24 Rx metoprolol succinate 25 mg 25 mg PO DAILY #90 tabs 12/10/23 05/10/24 Rx tablet,extended release 24 hr lisinopril 20 See Rx Instructions .Route 01/17/24 05/10/24 Rx mg-hydrochlorothiazide 25 mg tablet .COMPLEX #90 tabs doxazosin 8 mg tablet See Rx Instructions .Route 02/16/24 05/10/24 Rx .COMPLEX #90 tabs rivaroxaban 20 mg tablet (Xarelto) See Rx Instructions .Route 02/16/24 05/10/24 Rx .COMPLEX #90 tabs metformin 1,000 mg tablet 1,000 mg PO BID #180 tabs 03/07/24 05/10/24 Rx fenofibrate micronized 134 mg See Rx Instructions .Route 03/08/24 05/10/24 Rx capsule .COMPLEX #90 caps ferrous sulfate 324 mg (65 mg See Rx Instructions .Route 03/20/24 05/10/24 Rx iron) tablet,delayed release .COMPLEX #60 tabs finasteride 5 mg tablet See Rx Instructions .Route 04/07/24 05/10/24 Rx .COMPLEX #90 tabs Glucosamine Chondroitin 1 cap PO DAILY 05/02/24 05/10/24 History acetaminophen 500 mg tablet 500 mg PO BID 05/02/24 05/10/24 History saw palmetto 450 mg capsule 450 mg PO DAILY 05/02/24 05/10/24 History gabapentin 300 mg capsule See Rx Instructions .Route 05/04/24 05/10/24 Rx .COMPLEX #90 caps Allergies Allergy/AdvReac Type Severity Reaction Status Date / Time No Known Drug Allergies Allergy Unknown Verified 05/10/24 10:16 Vital Signs Vital Signs - 24 hr 05/10/24 10:18 05/10/24 10:37 Temperature 98.1 F Pulse Rate 74
[2024-05-10 11:25] VITALS: BP 138/76; O2SAT 97
[2024-05-10 11:35] VITALS: BP 149/76; O2SAT 98
[2024-05-10 11:43] VITALS: BP 150/85; O2SAT 97
== END 2024-05-10 12:10 | disposition home or self-care (01) ==
PROVIDERS: PCP Family Medicine; Visit Provider Internal Medicine Gastroenterology
PROC: 0DJD8ZZ Inspection of Lower Intestinal Tract, Via Natural or Artificial Opening Endoscopic (ICD-10-PCS; CPT 45378; principal; 2024-05-10 11:30)
DX: Z12.11 Encounter for screening for malignant neoplasm of colon (principal); D12.4 Benign neoplasm of descending colon; D12.8 Benign neoplasm of rectum; K57.30 Diverticulosis of large intestine without perforation or abscess without bleeding; Z79.01 Long term (current) use of anticoagulants; Z79.84 Long term (current) use of oral hypoglycemic drugs; Z86.718 Personal history of other venous thrombosis and embolism; E66.01 Morbid (severe) obesity due to excess calories; Z68.42 Body mass index [BMI] 45.0-49.9, adult
CPT/HCPCS: 45385; 82948; 88305; J2001; J2704; J7120

== ENCOUNTER 2024-05-15 07:48 | Outpatient (CLI) | payer MEDICARE, SELFPAY ==
--- NOTE | ~2024-05-15 | US_ITS ---
EXAMINATION: US renal BI DATE: 05/15/2024 08:59 INDICATION: Proteinuria TECHNIQUE: Multiple ultrasound grayscale images of the kidneys were obtained. COMPARISON: CT dated 09/24/2023 FINDINGS: The right kidney measures 11.4 x 6.1 x 5.4 cm. The left kidney measures 13.0 x 7.6 x 4.9 cm. The kidn eys demonstrate normal echogenicity. Anechoic 2.5 cm exophytic cyst at the mid right kidney. There is no hydronephrosis in either kidney. There are few echogenic foci at both kidneys likely representin g renal stones as seen on prior CT but only one at the lower pole of the left kidney measuring 1.4 cm large enough to demonstrate posterior acoustic shadowing. The bladder is normal. IMPRESSION: 1. Bilateral nephrolithiasis without hydronephrosis. 2. 2.5 cm right renal cyst. Reviewed, dictated and finalized at location B.
== END 2024-05-15 07:49 | disposition home or self-care (01) ==
LOC: ANHIMG 07:51
PROVIDERS: PCP Family Medicine; Visit Provider Internal Medicine Nephrology
DX: N20.0 Calculus of kidney (principal); N28.1 Cyst of kidney, acquired; R80.9 Proteinuria, unspecified; E11.29 Type 2 diabetes mellitus with other diabetic kidney complication
CPT/HCPCS: 76775

== ENCOUNTER 2024-08-29 09:58 | Outpatient (CLI) | payer MEDICARE, SELFPAY ==
[2024-08-29 14:44] LABS: Alanine Aminotransferase 45 U/L (6-50); Albumin Level 4.2 g/dL (3.5-5.1); Alkaline Phosphatase 27 U/L (38-126); Anion Gap 12 mmol/L (4-12); Aspartate Amino Transferase 70 U/L (17-59); Bilirubin,Total 0.6 mg/dL (0.2-1.3); Blood Urea Nitrogen 18 mg/dL (9-20); Calcium 9.1 mg/dL (8.4-10.2); Carbon Dioxide 30 mmol/L (22-30); Chloride 95 mmol/L (98-107); Cholesterol 132 mg/dL (0-200); Estimated Glomerular Filt Rate 53; Glucose 174 mg/dL (65-110); HDL Direct 25 mg/dL; Potassium 3.9 mmol/L (3.4-5.0); Sodium 137 mmol/L (137-145); Triglycerides 187 mg/dL (<150)
[2024-08-29 14:50] LABS: Albumin Level 4.3 g/dL (3.5-5.1); Anion Gap 8 mmol/L (4-12); Blood Urea Nitrogen 18 mg/dL (9-20); Carbon Dioxide 32 mmol/L (22-30); Chloride 96 mmol/L (98-107); Estimated Glomerular Filt Rate 58; Glucose 171 mg/dL (65-110); Phosphorus 3.8 mg/dL (2.5-4.5); Potassium 3.9 mmol/L (3.4-5.0); Sodium 136 mmol/L (137-145)
[2024-08-29 14:52] LABS: Total Protein Urine Random 84 mg/dL; Ur Ttl Prot Creatinine Ratio 0.98 mg/mg (0-0.20)
[2024-08-29 14:57] LABS: LDL Cholesterol Direct 69 mg/dL
[2024-08-29 15:36] LABS: Hemoglobin A1C 7.9 % (<5.7)
[2024-08-29 15:42] LABS: Free T4 Free Thyroxine 0.92 ng/mL (0.78-2.19)
== END 2024-08-29 09:59 | disposition home or self-care (01) ==
PROVIDERS: Nurse Practitioner; PCP Family Medicine; Visit Provider Internal Medicine Nephrology
DX: I12.9 Hypertensive chronic kidney disease with stage 1 through stage 4 chronic kidney disease, or unspecified chronic kidney disease (principal); E11.29 Type 2 diabetes mellitus with other diabetic kidney complication; R80.9 Proteinuria, unspecified; E11.21 Type 2 diabetes mellitus with diabetic nephropathy; R79.89 Other specified abnormal findings of blood chemistry; E78.2 Mixed hyperlipidemia
CPT/HCPCS: 36415; 80053; 80061; 80069; 82570; 83036; 84156; 84439; 84443; 86225; 86334; 86335

== ENCOUNTER 2025-01-15 15:09 | Outpatient (CLI) | payer MEDICARE, SELFPAY ==
[2025-01-15 16:00] LABS: Albumin Level 4.5 g/dL (3.5-5.1); Anion Gap 12 mmol/L (4-12); Blood Urea Nitrogen 25 mg/dL (9-20); Calcium 9.6 mg/dL (8.4-10.2); Carbon Dioxide 29 mmol/L (22-30); Chloride 98 mmol/L (98-107); Estimated Glomerular Filt Rate 48; Glucose 107 mg/dL (65-110); Phosphorus 3.9 mg/dL (2.5-4.5); Potassium 3.9 mmol/L (3.4-5.0); Sodium 139 mmol/L (137-145)
[2025-01-15 16:24] LABS: Creatinine Urine 113.4 mg/dL; Total Protein Urine Random 102 mg/dL
--- OUTSIDE RECORDS SUMMARY | 2025-01-15 17:44 | XMS_ITS | Data Portability ---
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 He is not a good candidate therefore for nonsteroidal anti-inflammatory medications. He had several questions about this and I explained the risk of complications to him with combining these medications, in detail. I have discussed with him the option of trying a cortisone shot. He has never had 1 before knee would like to try that in both knees. Risk of side effects including risk of hemarthrosis elevated blood sugars and risk of infection were discussed. After ChloraPrep prep, 20 mg Kenalog and 4 cc of 0.5% ropivacaine were injected in each knee without difficulty. He tolerated this well and had immediate relief of his knee symptoms with walking. I have discussed with him that if his symptoms recur he can have cortisone shot as often as every 3 months if helpful and necessary. I had a long discussion with him about weight loss. He may get to the point where he would like to have a knee replacement of the right knee if his symptoms there become intractable at some point. He would not be a candidate for surgery because of his obesity particularly with his severe lymphedema which is likely related to his extreme obesity and the history of DVT on the right is likely the explanation for the increased lymphedema in the right leg with venous stasis dermatitis. Weight loss would be beneficial for these problems. He felt that seeing a dietitian for coaching and advice would be beneficial and he is going to call the hospital to make an appointment to see 1. I am happy to see him back if he has further problems. 30 minutes were spent in total care this patient more than half the time spent in kewp-sb-htey care. Not available 04/07/2023 10:57:45 07/12/2023 07/12/2023 HPI: Patient katarzyna epperson. He had cortisone injections in both his knees 3 months ago. Aside from benefit from the ropivacaine he does not feel the shots helped at all. She has moderately severe medial compartment osteoarthritis the right knee as well as the left. His right knee always bothers him more. is on Xarelto and unable take anti-inflammatories. He is super obese with BMI of 52. We discussed options. Unfortunately they are very limited. We did talk about viscosupplementation injections in patient feels he would like to try these to see if they will offer any benefit. His insurance dictates that we get prior authorization so we will work on getting this and then see him back for Monovisc injections into both knees. I did discuss with him that there is a likelihood that the shots will work no better than the cortisone injections. Ultimately he needs to work on getting his weight down as this will most likely improve his symptoms more than anything else. He can use a cane or walker at times as well and he will think about that. We will see him back after we have the authorization. 20 minutes was spent in discussion of all this with the patient [email or web address] Not available 07/12/2023 15:17:51 08/11/2023 08/11/2023 HPI: Patient katarzyna epperson. He is here for Monovisc injections into both of his knees. We did get prior authorization approval done. Again he has moderately severe medial compartment osteoarthritis in the right knee and moderate medial compartment osteoarthritis in the left. He has not a surgical candidate due to his obesity. He tried cortisone injections in the past with minimal improvement. I discussed with him that he may not get substantial relief from the Monovisc injections. Due to his significant osteoarthritis particularly in the right knee and his weight it may be very difficult to get his symptoms to a tolerable point. Physical exam: [age]-year-old male alert. He is 5 ft 4 and 305 lb BMI is 52.5. He has hsgi-wa-gfofvrnl palpable effusions in both knees. He has chronic lymphedema in both lower extremities with chronic skin changes in both lower extremities. No redness or signs symptoms cellulitis. He has abdl-ao-idkcewkg tenderness over medial joint lines to palpation. Range of motion is approximately 10 to 110 . ChloraPrep used on skin Monovisc injection was given in both knees without incident. Impression: 78-year-old male who has moderately severe medial compartment osteoarthritis the right knee and moderate medial compartment osteoarthritis in left. I discussed with him that he needs to get his weight down. This is going to be the most contributing factor. His BMI is over 50 which puts him in a super obesity and this is going to be certainly contributing to lot of his symptoms. He has reduced his caloric intake on a daily basis and try to get his weight down he understands that. Monovisc can be repeated every 6 months. If not feel that these helped much we can always try cortisone again in the future. I recommend that he wait at least 6 weeks before doing that. 20 minutes was spent in treatment patient more than half of this in [id number]-ow-xiii conversation [email or web address] Not available 08/11/2023 16:10:17 Plan of Treatment Reminders Order Date Submit Date Provider Last Modified By Organization Details Last Modified Time Details Appointments None recorded. Lab None recorded. Referral None recorded. Procedures knee aspiration/ injection (PROC) 2022 023 [email or web address] In-Office Order, Internal Use Only DO Not Attach Compendium DO Not Attach Compendium, Do Not Delete/merge, [id number] 14:49:13 injection/a spiration joint/bursa (PROC) - in office procedure, administere d by provider 2022 023 In-Office Order, Internal Use Only DO Not Attach Compendium DO Not Attach Compendium, Do Not Delete/merge, [id number] 3 10:30:52 Surgeries None recorded. Imaging None recorded. Medication Orders Monovisc 88 mg/4 mL intra-artic ular syringe 2022 023 [email or web address] [facility] [address] [place], [address], 3 16:11:19 Kenalog 10 mg/mL suspension for injection [address] [facility] [address] [place], [address], 3 10:30:52 ropivacaine (PF) 5 mg/mL (0.5 %) injection solution [address] [place], [address], 3 10:30:52 Patient TargetsNo targets recorded. Patient InstructionsNo instructions recorded. Reason for Referral None Reported. Results Created Date Observation Date Name Description Value Unit Range Abnormal Flag Note LastModifiedBy Organization Detail LastModifiedTime 03/19/2003/18/2023 XR, knee, 4 or more view No observ ation record ed. [email or web address] Not Available 02/21 15:52:36 Result Notes None recorded. Problems Name Problem SNOMED Code Status Onset Date Resolution Date Notes Provider Name and Address Organization Details Recorded Time Bilateral osteoarthri tis of knees 3223742518933 07 Active 2022 Lupe Gurrola CMA null, [facility] 10:43:17 Problem Notes None recorded. Procedures Surgical History Date Name Laterality Status Provider Name and Address Organization Details Recorded Time Gallstones completed FATMATA Muñoz [facility] 04/07/2023 10:20:03 Imaging Results Imaging Date Name Status LastModified by Organiz ation Details LastModified Time 03/18/2023 XR, knee, 4 or more view completed [email or web address] Information not available 03/19/2023 15:52:36 Procedure Notes None recorded. Medical Equipment None Reported. Allergies No known drug allergies Medications Name Sig Start Date Stop Date Status Note LastModified by Organization Details LastModified Time simvastatin 10 mg tablet active Not Available Not Available Not Available triamcinolo ne acetonide 0.1 % topical cream APPLY CREAM TOPICALLY TO AFFECTED AREA TWICE DAILY TO BOTH ARMS AND LOWER LEGS. active Not Available Not Available No t Available fenofibrate micronized 134 mg capsule TAKE 1 CAPSULE BY MOUTH ONCE DAILY active Not Available Not Available No t Available doxazosin 8 mg tablet TAKE 1 TABLET BY MOUTH ONCE DAILY active Not Available Not Available No t Available Kenalog 10 mg/mL suspension for injection in office procedure , administe red by provider 2022 active [facility]: 0003- 0494- 20 Not Available Not Available Not Available pantoprazol e 40 mg tablet,bety yed release TAKE 1 TABLET BY MOUTH ONCE DAILY IN THE MORNING 07/12 completed Not Available Not Available Not Available metformin 1,000 mg tablet TAKE 1 TABLET BY MOUTH TWICE DAILY active Not Available Not Available No t Available gabapentin 300 mg capsule TAKE 1 CAPSULE BY MOUTH THREE TIMES DAILY active Not Available Not Available No t Available lisinopril 20 mg-hydrochl orothiazide 25 mg tablet TAKE 1 TABLET BY MOUTH ONCE DAILY active Not Available Not Available No t Available metoprolol succinate ER 25 mg tablet,exte nded release 24 hr TAKE 1 TABLET BY MOUTH ONCE DAILY active Not Available Not Available No t Available metformin ER 500 mg tablet,exte nded release 24 hr TAKE 2 TABLETS BY MOUTH ONCE DAILY active Not Available Not Available No t Available finasteride 5 mg tablet TAKE 1 TABLET BY MOUTH ONCE DAILY active Not Available Not Available No t Available clindamycin phosphate 1 % topical solution APPLY TWO DROPS TO PROCEDURE SITE ONCE DAILY 04/07 completed Not Available Not Available Not Available acetaminoph en active Not Available Not Available Not Available Glucosamine active Not Available Not A vailable Not Available ferrous sulfate 324 mg (65 mg iron) tablet,bety yed release TAKE 1 TABLET BY MOUTH TWICE DAILY active Not Available Not Available No t Available ropivacaine (PF) 5 mg/mL (0.5 %) injection solution in office procedure , administe red by provider 2022 active [facility] 21549 -064- 01 Not Available Not Available Not Available Xarelto 20 mg tablet TAKE 1 TABLET BY MOUTH ONCE DAILY WITH EVENING MEAL active Not Available Not Available No t Available Monovisc 88 mg/4 mL intra-artic ular syringe in office 2022 active Not Available Not Available Not Avai lable Vitals Date Recorded Body height Body mass index (BMI) Body weight Provider Name and Address Organization Details Last Updated DateTime 04/07/2023 162.56 cm 52.5 kg/m2 718617.55 g FATMATA Muñoz [facility] [employer] [facility] 04/07/2023 10:27:39 Date Recorded Body height Provider Name an d Address Organization Details Last Updated DateTime 07/12/2023 162.56 cm FATMATA Muñoz [facility] 07/12/2023 14:46:05 Date Recorded Body height Provider Name an d Address Organization Details Last Updated DateTime 08/11/2023 162.56 cm FATMATA Muñoz [facility] [employer] [facility] 08/11/2023 14:46:12 Social History Question Answer Notes LastModified by Organizat ion Details LastModified Time Tobacco Smoking Status Never Smoker FATMATA Muñoz [facility] 04/07/2023 10:19:51 What Is Your Level Of Alcohol Consumption? None [email or web address] Information not available 04/07/2023 Sex: Unknown Functional Status None recorded. Mental Status None recorded. Family History Relationship Description Onset Age of this Age Resolved Age Notes LastModified by Organization Details LastModified Time Father Family history of stroke [email or web address] Not available 2022 10:19:17 Father Hypertensive disorder [email or web address] Not available 2022 10:19:33 Mother Family history of stroke [email or web address] Not available 2022 10:19:17 Maternal Grandmother Diabetes mellitus Not available 2022 10:19:42 Medical History Condition Response ARTHRITIS Y BLOOD CLOTS Y ANEMIA/BLOOD DISORDER Y HYPERTENSION Y Past Encounters Encounter ID Performer Location Encounter Start Date Encounter Closed Date Diagnosis/Indication Diagnosis SNOMED-CT Code Diagnosis ICD10 Code Diagnosis Note [id number] Gt Nolan MD [facility] [address] [place] [address] 04/07/2023 09:38:00 04/07/2023 11:07:18 Bilateral osteoarthritis of knees 5335307942 41287 M17.0 [id number] SANTINO Ayala [facility] [address] [place] [address] 07/12/2023 14:41:56 07/12/2023 15:23:05 Bilateral osteoarthritis of knees 2627400271 35846 M17.0 [id number] SANTINO Ayala [facility] [place] [address] [facility] [address] [place] [address] 08/11/2023 14:43:19 08/11/2023 16:57:09 Bilateral osteoarthritis of knees 8578021478 30733 M17.0 Health Concerns Section Related Observation LastModified by Organization Detai ls LastModified Time None Recorded Concern Status LastModified by Organization Details LastModified Time None Recorded Advance Directives Directive None Recorded Payers Encounter Date Sequence Insurance Name Policy Number Policy Gramajo Covered Member ID Gramajo Member ID Guarantor Name 04/07/2023 1 [employer] - [employer] (MEDICARE REPLACEMENT/ ADVANTAGE - HMO) [id number] L Yash Herrera Timothy [id number] Yash [place] 07/12/2023 1 [employer] - [employer] (MEDICARE REPLACEMENT/ ADVANTAGE - HMO) [id number] Yash Javier Timothy [id number] Yash [place] 08/11/2023 1 [employer] - [employer] (MEDICARE REPLACEMENT/ ADVANTAGE - HMO) [id number] L Yash Herrera Timothy [id number] Yash Escobarnely Notes Date Note Type Note Provider Name and Address Organization Details Recorded Time 04/07/2023 text/html patient is a 78-year-old gentleman who presents for evaluation of his bilateral knee pain. He has a many year history of medial pain in the right knee. His left knee never bothered him prior to approximately 3 weeks ago. He spent 4 hours a day on a riding lawnmower 2 days in a row. This does involve getting off the lawn more to squat down to spanish moss picker sticks. He had no trauma but after his 2nd day of mowing the lawn his whole body was quite sore. Has a history of lower back problems history of sciatica on the right leg. His past history is significant for DVT in the right thigh and he has been on Xarelto since that time. He has super obesity. He is 5 ft 4 in in height 305 lb BMI 52.8. History of borderline diabetes. I reviewed x-rays from 03/16/2023 which demonstrate on the right knee assp-vz-ruil medial compartment osteoarthritis in the left knee moderate medial joint space narrowing with probable effusion. These are nonweightbearing x-rays. Gt Nolan MD [address] [facility], [facility] [address], [place], [address], [facility] [employer] 04/07/2023 10:58:02
--- OUTSIDE RECORDS SUMMARY | 2025-01-15 17:44 | XMS_ITS | Clinical Summary ---
Author Organization [facility] Address [address] [place] [id number] Care Team Providers Care Customer Records Division Supervisor Name Role Phone Rachelle Freitas DO Primary Care Provider [phone]- [phone] Allergies No known active allergies Medications doxazosin (CARDURA) 8 mg tablet Take 8 mg by mouth daily 1 Active metoprolol XL (TOPROL-XL) 25 mg extended release tablet Take 25 mg by mouth daily 1 Active triamcinolone (KENALOG) 0.1 % cream APPLY CREAM EXTERNALLY TO AFFECTED AREA TWICE DAILY TO BOTH ARMS AND LOWER LEGS 1 Active metFORMIN XR (GLUCOPHAGE XR) 500 mg 24 hr tablet Take 500 mg by mouth nightly 1 Active lisinopril-hydr oCHLOROthiazide (ZESTORETIC) 20-25 mg per tablet Take 1 tablet by mouth daily 1 Active fenofibrate micronized (LOFIBRA) 134 mg capsule Take 134 mg by mouth daily 1 Active aspirin 81 mg enteric coated tablet Take 81 mg by mouth daily Active Xarelto 20 mg tablet 1 Active gabapentin (NEURONTIN) 300 mg capsule TAKE 1 CAPSULE BY MOUTH THREE TIMES DAILY 90 capsule 3 Active Active Problems Problem Noted Date Diagnosed Date Lymphedema of both lower extremities 08/07/2021 Assessment & Plan (03/04/2022 1:59 PM CDT): Continues to have chronic lymphedema. No open wounds. Encouraged pneumatic compression boots and stockings. Assessment & Plan (09/10/2021 2:59 PM CDT): Patient continues to have chronic lower extremity edema but otherwise at this point no new or worsening symptoms. Continue compression regimen involving pneumatic compression boots. Follow-up 6 months. Assessment & Plan (08/07/2021 9:37 AM CDT): Despite ongoing conservative measures patient continues to have hyperpigmentation and swelling from the toes to the groin. Would benefit from pneumatic compression devices. Continue ongoing compression therapy. Embolism and thrombosis of s uperficial vein of right lower extremity 08/07/2021 Assessment & Plan (03/04/2022 1:58 PM CDT): symptoms have resolved. Needs compression therapy. Encouraged the use of pumps and compression stockings. 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 Symptoms have resolved. Continue compression Assessment & Plan (08/07/2021 9:38 AM CDT): Superficial venous thrombosis of the right great saphenous vein. Continue compression therapy Immunizations Immunization Administration Dates Next Due Influenza, Quadrivalent, Hig h Dose, Preservative Free, Intrr 09/11/2020 Influenza, Quadrivalent, Spl it, Preservative Free, Intramuscular 08/22/2018 Influenza, Trivalent, Adjuvanted, Intramuscular 08/19/2019 Influenza, Trivalent, High D ose, Split, Preservative Free, Intramuscular 09/02/2018 Moderna SARS-CoV-2 Monovalent Vaccination (12+ Y RS) 02/10/2021,12/19/2020 Pneumococcal Conjugate PCV 13 09/11/2020 Surgical History Surgery Date Site/Laterality Comments EXPLORATORY LAPAROTOMY TONSILLECTOMY CHOLECYSTECTOMY Medical History Medical History Date Comments Hypertension Diabetes (HCC) Family History Medical History Relation Name Comments Diabetes Father Stroke Father Diabetes Mother Stroke Mother Venous thrombosis Mother lymphedema Mother Relation Name Status Comments Father Mother Social History Tobacco Use Types Packs/Day Years Used Date Smoking Tobacco: Never Smokeless Tobacco: Never Personal Safety Answer Date Recorded Getting School Help Needed Not on file 01/11 Sex and Gender Information Value Date Recorded Sex Assigned at Not on file 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 Gender Identity Not on file Sexual Orientation Not on file Obstetrics History Last Filed Vital Signs Vital Sign Reading Time Taken Comments Blood Pressure 156/94 03/04/2022 1:02 PM CDT Pulse 64 03/04/2022 1:02 PM CDT Temperature - - Respiratory Rate 18 11/25/2021 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 Oxygen Saturation 95% 11/25/2021 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 Inhaled Oxygen Concentration - - Weight 133.8 kg (295 lb) 03/04/2022 1:02 PM CDT Height 167.6 cm (5' 6 ) 03/04/2022 1:02 PM CDT Body Mass Index 47.61 03/04/2022 1:02 PM CDT Plan of Treatment Health Maintenance Due Date Last Done Comments Depression Screening 1944 DTaP/Tdap/Td Vaccine (1 - Tdap) 1955 Hepatitis B Screening 1962 Zoster Vaccine (1 of 2) 1994 Well Visit 65+ 2009 Pneumococcal vaccine 65+ (2 of 2 - PPSV23) 09/11/2021 09/11/2020 Fall Risk Assessment 11/25/2022 11/25/2021 Covid-19 Vaccine (3 - 2023-2 5 season) 2024 02/10/2021, 12/19/2020 Influenza Vaccine (#1) 2024 , 08/19/2019, 09/02/2018, Additional history exists Insurance [facility] MEDICARE GOLD [facility] [place] [address] [place] [address] REF Care Teams Customer Records Division Supervisor Relationship Specialty Start Date End Date Rachelle Freitas DO PCP - General Family Medicine 09/03/21
--- OUTSIDE RECORDS SUMMARY | 2025-01-15 17:44 | XMS_ITS | Referral Summary ---
Author Organization [facility] Address [address] [place] [phone] Care Team Providers Care Learning Technologies Specialist Name Role Phone Rachelle Freitas DO Primary Care Provider +1- [phone] Allergies No known active allergies Medications doxazosin [...] RS) 02/10/2021,12/19/2020 Pneumococcal Conjugate PCV 13 09/11/2020 Social History Tobacco Use Types Packs/Day Years Used Date Smoking Tobacco: Never Smokeless Tobacco: Never Personal Safety Answer Date Recorded Getting School Help Needed Not on file 01/11 Sex and Gender Information Value Date Recorded Sex Assigned at Not on file Legal 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 Gender Identity Not on file Sexual Orientation Not on file Last Filed Vital Signs Vital Sign Reading Time Taken Comments Blood Pressure 156/94 03/04/2022 1:02 PM CDT Pulse 64 03/04/2022 1:02 PM CDT Temperature - - Respiratory Rate 18 11/25/2021 10:42 AM WIND TURBINE SERVICE TECHNICIAN Oxygen Saturation 95% 11/25/2021 10:42 AM WIND TURBINE SERVICE TECHNICIAN Inhaled Oxygen Concentration - - Weight 133.8 kg (295 lb) 03/04/2022 1:02 PM CDT Height 167.6 cm (5' 6 ) 03/04/2022 1:02 PM CDT Body Mass Index 47.61 03/04/2022 1:02 PM CDT Plan of Treatment Not on file Insurance A[employer]NA MEDICARE GOLD [facility] AETNA [facility] GOLD REF Care Teams Learning Technologies Specialist Relationship Specialty Start Date End Date Rachelle Freitas DO PCP - General Family Medicine 09/03/21
--- OUTSIDE RECORDS SUMMARY | 2025-01-15 17:45 | XMS_ITS | Patient Health Record ---
Author Organization [facility] Address [address] [place] [address] Support Name Relationship Address Phone Yash Aguirre Guarantor Unknown [phone] Reason For Referral No Information Plan Of Treatment No Information Insurance Providers Payer Name Payer Address Payer Phone Subscriber Number Group Number Insured Name Patient Relationship to Insured Coverage Start Date Coverage End Date [facility]/ [employer] PPO/HMO [address] [place] [address] [id number] Yash Vargas Self - patient is the insured
== END 2025-01-15 15:10 | disposition home or self-care (01) ==
PROVIDERS: PCP Nurse Practitioner; Visit Provider Internal Medicine Nephrology
DX: R80.9 Proteinuria, unspecified (principal); E11.29 Type 2 diabetes mellitus with other diabetic kidney complication
CPT/HCPCS: 36415; 80069; 82570; 84156

== ENCOUNTER 2025-01-17 15:22 | Inpatient (IN) | payer MEDICARE, SELFPAY ==
[2025-01-17] VITALS (8 sets, daily range): BP systolic 136–204; BP diastolic 71–110; PULSE 65–95; RESP 17–18; TEMP 36.6–36.7; O2SAT 93–98; BMI 45.9
--- NOTE | ~2025-01-17 | XR_ITS ---
EXAMINATION: XR abdomen/kub 1V DATE: 01/30/2025 14:14 INDICATION: Abdominal distention. TECHNIQUE: A supine view of the abdomen on 4 radiographs was obtained. COMPARISON: CT abdomen and pelvis 01/17/2025 FINDINGS: There is gaseous distention of the stomach. There are multiple dilated loops of small bowel . Surgical clips in the right upper quadrant are likely from cholecystectomy. Skin danilo are noted. IMPRESSION: 1. Dilated small bowel, likely adynamic ileus. Reviewed, dictated and finalized at location B.
--- NOTE | ~2025-01-17 | XR_ITS ---
Exam: Abdomen 1V HISTORY: follow up post op ileus COMPARISON: 01/23/2025 TECHNIQUE: Supine images of the abdomen FINDINGS: Significant gaseous distention of the stomach and several loops of proximal small bowel. Nasogastric tube is present. Contrast opacified fecal stasis within the rectum, to the level of the sigmoid colon, for which impac tion is suspected. No pathologic calcifications are seen. Bones and soft tissues are unremarkable. IMPRESSION: Significant gaseous distention of the stomach and several loops of proximal small bowel with addition al findings suggesting fecal impaction, as detailed above. Reviewed, dictated and finalized at location A. L CNC OPERATOR IMPRESSION: Significant gaseous distention of the stomach and several loops of proximal sma ll bowel with additional findings suggesting fecal impaction, as detailed above .
--- NOTE | ~2025-01-17 | XR_ITS ---
Supine and upright views of the abdomen Clinical history: Obstruction COMPARISON: 01/22/2025 Findings: NG tube in satisfactory position. Surgical danilo noted vertically in the midline. There a re distended small bowel loops, as well as oral contrast in large bowel. No definite free air is seen . No abnormal mass lesion or calcification is seen. Osseous structures are intact. Impression: Small bowel obstruction versus postoperative ileus, similar to prior exam. NG tube in place. Reviewed, dictated and finalized at [facility]. E COACH Impression: Small bowel obstruction versus postoperative ileus, similar to prior exam. NG tube in place.
--- NOTE | ~2025-01-17 | XR_ITS ---
Portable chest x-ray Comparison: 01/22/2025 Clinical History: Respiratory failure Findings: NG tube in satisfactory position. Lungs are clear, without focal consolidation or pleural effusion. Cardiomediastinal silhouette is stable. Bones and soft tissues are unremarkable. Impression: Clear lungs. NG tube. Cardiomegaly. Reviewed, dictated and finalized at location . S WRITER Impression: Clear lungs. NG tube. Cardiomegaly.
--- NOTE | ~2025-01-17 | XR_ITS ---
XR abdomen/kub 1V Ordering provider: Eula Bradshaw APRN History: . NG placement verification . Comparison: None. FINDINGS/impression: Nasogastric tube with the tip in the fundus of the stomach. Reviewed, dictated and finalized at location A. SUPERINTENDENT
--- NOTE | ~2025-01-17 | XR_ITS ---
EXAM: XR abdomen gastric tube insert DATE: 01/17/2025 18:57 HISTORY: NG tube insertion . COMPARISON: CT abdomen and pelvis, same date. FINDINGS: NG tube, tip and side port project over the stomach. Cholecystectomy clips. Subsegmental at electasis/consolidation the left lung base Clear lung bases. Multiple loops of dilated small bowel in the upper abdomen. No organomegaly. No abnormal abdominal calcification. Regional bones and soft tis sues normal for age. IMPRESSION: NG tube, in good position. Subsegmental left basilar atelectasis/consolidation. Reviewed, dictated and finalized at location K. IMPRESSION: NG tube, in good position. Subsegmental left basilar atelectasis/co nsolidation.
--- NOTE | ~2025-01-17 | XR_ITS ---
EXAM: XR abdomen gastric tube insert DATE: 01/17/2025 21:11 HISTORY: NG tube replaced, check placement . COMPARISON: Same date at 6:53 PM. FINDINGS: Unchanged subsegmental left basilar airspace disease. Unchanged loops of dilated small bow el in the upper abdomen. The NG tube projects over the left upper quadrant, tip and side port project ing over the region of the gastric fundus. IMPRESSION: NG tube, in good position. Subsegmental left basilar atelectasis/consolidation, unchanged . Unchanged dilated small bowel loops. Reviewed, dictated and finalized at location K. ASTRUCTURE ADMINISTRATOR IMPRESSION: NG tube, in good position. Subsegmental left basilar atelectasis/co nsolidation, unchanged. Unchanged dilated small bowel loops.
--- NOTE | ~2025-01-17 | XR_ITS ---
XR abdomen obstructive series Ordering provider: Juan M Ellis History: . Small-bowel obstruction, ileus . Comparison: None. FINDINGS: Postoperative changes in the anterior abdominal wall. BOWEL: Contrast is seen in the large bowel slightly dilated bowel loops are seen in the left side of the abdomen. Nasogastric tube is seen with the tip in the stomach. ORGANOMEGALY: None. SIGNIFICANT PATHOLOGIC CALCIFICATIONS: None. OTHER: No free air is seen under the diaphragm. IMPRESSION: Contrast is seen in the large bowel. Slightly dilated bowel loops are in the left side of the abdomen which may indicate ileus. Follow-up advised. Reviewed, dictated and finalized at location A. BUILDER OPERATOR IMPRESSION: Contrast is seen in the large bowel. Slightly dilated bowel loops are in the le ft side of the abdomen which may indicate ileus. Follow-up advised.
--- NOTE | ~2025-01-17 | XR_ITS ---
Supine and upright views of the abdomen Clinical history: Postoperative ileus COMPARISON: 01/20/2025 Findings: Multiple distended small bowel loops are present, with oral contrast in large bowel. Surgic al danilo are present at the low midline. No free air evident. NG tube in place.. No abnormal mass l esion or calcification is seen. Osseous structures are intact. Impression: Postoperative ileus versus possibly small bowel obstruction. NG tube in place. Reviewed, dictated and finalized at location . MENT STONECUTTER Impression: Postoperative ileus versus possibly small bowel obstruction. NG tube in place.
--- NOTE | ~2025-01-17 | XR_ITS ---
EXAMINATION: XR abdomen gastric tube insert DATE: 01/27/2025 00:26 INDICATION: Nasogastric tube placement. TECHNIQUE: An upright view of the abdomen was obtained. COMPARISON: CT abdomen and pelvis 01/17/2025 FINDINGS: The lower abdomen is excluded. There are multiple dilated loops of small bowel. Skin staple s are noted. The nasogastric tube tip is in the stomach. Surgical clips in the right upper quadrant a re likely from cholecystectomy. Cardiomegaly is noted. IMPRESSION: 1. Dilated small bowel, likely adynamic ileus. 2. Nasogastric tube tip in the stomach. Reviewed, dictated and finalized at location A. PADDER
--- NOTE | ~2025-01-17 | CT_ITS ---
EXAMINATION: CT abdomen pelvis w con DATE: 01/17/2025 17:53 INDICATION: epigastric pain, abdominal distension TECHNIQUE: Computed tomography (CT) of the abdomen and pelvis was performed with 100 mL Omnipaque-350 intravenous contrast. Automated exposure control and iterative reconstruction technique were employe d. The dose-length product was 1648.49 mGy-cm. COMPARISON: 11/24/2022. FINDINGS: Lower thorax: Cardiomegaly. Ascending aortic aneurysm measuring up to 5.6 cm. The descending thoracic aorta measures up to 3.1 cm. Coronary artery, aortic valve, and mitral calcifications. Mild dependen t scar/atelectasis. Enlarged paraesophageal lymph nodes. Liver: Enlarged. Diffuse fatty infiltration. Biliary/Gallbladder: Gallbladder is absent. No bile duct dilation. Pancreas: No mass or duct dilation. Spleen: Multiple stable splenic hypodensities, likely representing cysts or hemangiomas. Adrenals: Stable 8 mm right adrenal nodule, likely adenoma. Kidneys: No suspicious mass, obstructing stone, or hydronephrosis. Simple exophytic right midpole cys t. Multiple bilateral nonobstructing punctate renal calcifications. GI tract: Mild distal esophageal and gastric wall edema. Multiple loops of dilated proximal and mid s mall bowel, with adjacent mesenteric stranding and vascular hyperemia, transition point in the left l ateral abdomen (axial image 111/239). Uniform bowel wall enhancement. Interloop fluid. No pneumatosis or portal venous gas. Normal appendix. Diverticulosis without diverticulitis. Mesentery/Peritoneum: Small volume perihepatic, right paracolic gutter, and perisplenic fluid. Retroperitoneum: No mass. Atherosclerotic calcifications of intra-abdominal arterial vessels. Pelvis: Partially distended urinary bladder, with mild wall thickening. Prostatomegaly. Soft Tissues: Small, uncomplicated appearing supraumbilical, umbilical, and bilateral inguinal fat-co ntaining hernias. Bones: No acute osseous finding. IMPRESSION: Ascending aortic aneurysm measuring up to 5.6 cm. The descending thoracic aorta is mildly dilated to 3.1 cm. Consider nonemergent but timely outpatient CT angiography of the chest and appropriate referr al for monitoring/potential intervention. Mild esophagitis/gastritis. Periesophageal lymphadenopathy. Hepatomegaly with steatosis. Mid small bowel obstruction, transition point in the left lateral abdomen. Small volume ascites. Bladder wall thickening, likely secondary to chronic outlet obstruction from prostatomegaly. Reviewed, dictated and finalized at location K. DENT MEDICAL OFFICER IMPRESSION: Ascending aortic aneurysm measuring up to 5.6 cm. The descending thoracic aorta is mildly dilated to 3.1 cm. Consider nonemergent but timely outpatient CT ang iography of the chest and appropriate referral for monitoring/potential interve ntion. Mild esophagitis/gastritis. Periesophageal lymphadenopathy. Hepatomegaly with steatosis. Mid small bowel obstruction, transition point in the left lateral abdomen. Small volume ascites. Bladder wall thickening, likely secondary to chronic outlet obstruction from pr ostatomegaly.
--- NOTE | ~2025-01-17 | XR_ITS ---
Upright portable view of the abdomen Clinical history: NG tube placement COMPARISON: 01/17/2025 Findings: NG tube in satisfactory position. Bowel gas pattern is nonspecific. No evidence for obstruc tion or free air. No abnormal mass lesion or calcification is seen. Osseous structures are intact. Impression: NG tube in satisfactory position. Reviewed, dictated and finalized at [facility]. AL SPRAYER Impression: NG tube in satisfactory position.
--- NOTE | ~2025-01-17 | XR_ITS ---
XR abdomen/kub 1V Ordering provider: Homar Muniz DO History: . abdominal pain belching . Comparison: None. FINDINGS: BOWEL: Slightly dilated bowel loops in the upper abdomen which may indicate ileus. Follow-up advised. Postoperative changes. ORGANOMEGALY: None. SIGNIFICANT PATHOLOGIC CALCIFICATIONS: None. OTHER: No free air is seen under the diaphragm. IMPRESSION: Dilated bowel loops in the upper abdomen suggestive of ileus. Obstruction cannot be excluded. Follow- up advised. Reviewed, dictated and finalized at location A. OUNT CLERK IMPRESSION: Dilated bowel loops in the upper abdomen suggestive of ileus. Obstruction canno t be excluded. Follow-up advised.
--- NOTE | ~2025-01-17 | XR_ITS ---
Portable chest x-ray Comparison: None Clinical History: Hypoxia Findings: NG tube in satisfactory position. There is probable central congestive change and mild bib asilar pulmonary edema. Cardiomediastinal silhouette is enlarged. Bones and soft tissues are unremar kable. Impression: Central congestive change and probable mild bibasilar pulmonary edema. Correlate clinically for pneum onia. Cardiomegaly. NG tube in place. Reviewed, dictated and finalized at location . S DESIGNER Impression: Central congestive change and probable mild bibasilar pulmonary edema. Correlat e clinically for pneumonia. Cardiomegaly. NG tube in place.
--- NOTE | ~2025-01-17 | XR_ITS ---
EXAMINATION: XR chest PICC line DATE: 01/24/2025 13:46 INDICATION: Central line placement. TECHNIQUE: A single frontal view of the chest was obtained. COMPARISON: Chest single view 01/23/2025, CT abdomen and pelvis 01/17/2025 FINDINGS: There is no pneumonia, pleural effusion or pneumothorax. Cardiomegaly is noted. The nasogas tric tube tip is in the stomach. A right upper extremity peripherally inserted central venous cathete r (PICC) is seen with tip in the right brachiocephalic vein. There is a fusiform aneurysm of thoracic aorta. IMPRESSION: 1. PICC tip in the right brachiocephalic vein. 2. Cardiomegaly. 3. Fusiform aneurysm of thoracic aorta. Consider chest CTA. Reviewed, dictated and finalized at location A. EDITOR
--- NOTE | ~2025-01-17 | XR_ITS ---
Portable chest x-ray Comparison: 01/21/2025 Clinical History: Vascular congestion Findings: NG tube in satisfactory position. There is mild central congestive change and possible min imal bibasilar pulmonary edema. Cardiomediastinal silhouette is stable. Bones and soft tissues are u nremarkable. Impression: Central congestive change and minimal bibasilar pulmonary edema. Stable marked cardiomegaly. NG tube in place. Reviewed, dictated and finalized at location M. STYLE BLOCK FARMER Impression: Central congestive change and minimal bibasilar pulmonary edema. Stable marked cardiomegaly. NG tube in place.
--- NOTE | ~2025-01-17 | XR_ITS ---
EXAMINATION: XR sm bowel follow through WS DATE: 01/18/2025 14:53 INDICATION: Small bowel obstruction. TECHNIQUE: Oral contrast was administered, and a time course of radiographs of the abdomen was obtain ed. Fluoroscopy of the small bowel was not performed. Fluoroscopy exposure time was 0 minutes. The to jacinta number of images was 10. COMPARISON: CT abdomen and pelvis 01/17/2025 FINDINGS: There are multiple dilated loops of small bowel. The nasogastric tube tip is in the stomach. Surgical clips in the right upper quadrant are likely from cholecystectomy. The colon is decompressed. At 2 h ours and 30 minutes, the contrast was still in the dilated small bowel. IMPRESSION: 1. Small bowel obstruction. Reviewed, dictated and finalized at location A. TURBINE SHEET METAL WORKER IMPRESSION: 1. Small bowel obstruction.
--- NOTE | ~2025-01-17 | XR_ITS ---
XR abdomen/kub 1V INDICATION: Evaluate NG tube position. TECHNIQUE: Limited KUB perform for evaluating NG tube . COMPARISON: 01/18/2025 FINDINGS: NG tube tip in the stomach. Visualized bowel gas pattern is nonspecific.There are surgical clips in the left abdomen partially visualized. Mildly dilated bowel in the upper abdomen, likely il eus. IMPRESSION: 1: NG tube tip in the stomach. Reviewed, dictated and finalized at location A. NUE ACCOUNTANT
--- NOTE | ~2025-01-17 | XR_ITS ---
XR chest PICC line Ordering provider: Jassi Cain MD History: 79 years Male with . PICC placement . Comparison: January 24, 2025 FINDINGS: MEDIASTINUM: The cardiac silhouette is moderately enlarged. Right PICC line with the tip overlying th e right atrium. Nasogastric tube extending to the stomach. Congestive des. LUNGS: No infiltrates, effusions or pneumothorax. Minimal opacification the left lung base. OTHER: No free air under the diaphragm. Degenerative changes of the spine. IMPRESSION: Right PICC line with the tip overlying the right atrium. Cardiomegaly. Minimal opacification in the left lung base. Reviewed, dictated and finalized at location A. NE DENTIST
--- NOTE | ~2025-01-17 | XR_ITS ---
Exam: Abdomen 1V HISTORY: new ab pain COMPARISON: 01/27/2025 TECHNIQUE: Supine images of the abdomen FINDINGS: Interval removal of the nasogastric tube seen on previous examination. Interval gaseous enlargement of both the stomach, and primarily the small bowel. Air is present within the rectum as well as more proximally within the colon. Mural thickening is present within small bowel loops. IMPRESSION: Findings consistent with at least a partial small bowel obstruction, as detailed above. Reviewed, dictated and finalized at location A. IMPRESSION: Findings consistent with at least a partial small bowel obstruction, as detaile d above.
--- NOTE | ~2025-01-17 | XR_ITS ---
EXAMINATION: XR abdomen gastric tube insert DATE: 01/30/2025 14:46 INDICATION: Nasogastric tube placement. TECHNIQUE: An upright view of the abdomen was obtained. COMPARISON: Abdomen radiograph at 1:46 PM FINDINGS: The lower abdomen is excluded. There are dilated loops of small bowel. Surgical clips in th e right upper quadrant are likely from cholecystectomy. The nasogastric tube tip is in the stomach. IMPRESSION: 1. Nasogastric tube tip in the stomach. 2. Dilated small bowel, likely adynamic ileus given the recent surgery. Reviewed, dictated and finalized at location B.
--- NOTE | 2025-01-17 15:29 | ED_ITS ---
HPI - Abdominal Pain General Chief Complaint: Abdominal Pain <NATALIE Rivas Last Filed: 01/18/25 10:18> Stated Complaint: abd pain, n/v <Luann Vasques PA-C - Last Filed: 01/18/25 10:18> Time Seen by Provider: 01/17/25 15:27 <Luann Vasques PA-C - Last Filed: 01/18/25 10:18> Focused HPI: This is a 79 year old male that presents to the ER for abdominal pain, nausea, vomiting. Ongoing since 4 this morning. Reports upper abdominal pain. He does not have a gallbladder. Believes he may have food poisoning. He did not take his blood pressure medication today. GENERAL: Uncomfortable, well-nourished, and in no acute distress. HEAD: Normocephalic, atraumatic. CHEST: Clear to auscultation. ?No respiratory distress. HEART: Regular rate and rhythm.? NEURO: ?Alert and oriented x3. Patient screened in triage and initial orders placed.? ?Additional care and disposition to be based upon?diagnostic testing and treatment. <NATALIE Rivas Last Filed: 01/18/25 10:18> Source: patient <NATALIE Ortega Last Filed: 01/17/25 22:01> Mode of arrival: ambulatory <NATALIE Ortega Last Filed: 01/17/25 22:01> Limitations: no limitations <NTAALIE Ortega Last Filed: 01/17/25 22:01> History of Present Illness HPI narrative: Agree With MSE note above. patient has that he has had normal pattern of bowel movements for him which is mild constipation, and having a bowel movement every couple of days. Reports pain is all across the upper and middle abdomen. He does feel bloated. Denies fevers, chills, diarrhea, GI bleeding symptoms, numbness, weakness to the extremities , chest pain, flank pain, urinary symptoms. Endorses abdominal surgical history of cholecystectomy that was plan is laparoscopic due to vascular complication, had to proceed with open surgery. < NATALIE Ortega Last Filed: 01/17/25 22:01> Related Data Home Medications: Home Medications ?Medication ?Instructions ?Recorded ?Confirmed ?Last Taken ?Type Glucosamine Chondroitin 1 cap PO DAILY 05/02/24 01/18/25 05/09/24 History saw palmetto 450 mg capsule 450 mg PO DAILY 05/02/24 01/18/25 05/09/24 History <Luann Vasques PA-C - Last Filed: 01/18/25 10:18> Allergies/Adverse Reactions: Allergies Allergy/AdvReac Type Severity Reaction Status Date / Time No Known Drug Allergies Allergy Unknown Verified 01/18/25 00:04 <Luann Vasques PA-C - Last Filed: 01/18/25 10:18> Review of Systems 2 Review of Systems: All systems as dictated in HPI <Jose Antonio Cook PA-C - Last Filed: 01/17/25 22:01> [facility] Past Medical History Medical History: Medical History Anticoagulant long-term use Arm fracture (1958) Colon cancer screening History of chicken pox History of measles History of mumps Hx of deep venous thrombosis Intermittent diarrhea Lower GI bleed Normal colonoscopy (06/29/12) 07/19/2012 Spinal stenosis <Luann Vasques PA-C - Last Filed: 01/18/25 10:18> Surgical History Surgical History: Surgical History H/O nasal septoplasty (1992) History of tonsillectomy (~1949) Hx of cholecystectomy (1991) <Luann Vasques PA-C - Last Filed: 01/18/25 10:18> Family History Family History: Family History Grandparent Diabetes mellitus Hypertension Cerebrovascular accident Father Hypertension Family history of elevated blood lipids, Onset Age: 89 Family history of cardiovascular disease Cerebrovascular accident Mother Family history of elevated blood lipids, Onset Age: 93 Family history of cardiovascular disease Diabetes mellitus Hypertension Cerebrovascular accident <Luann Vasques PA-C - Last Filed: 01/18/25 10:18> Social History Social History: Social History Smoking status: Never smoker Alcohol intake: current Drinks per week: 1 Alcohol use details: occasionnally Substance use: never Substance use type: does not use Do You Feel Safe in your Home?: Yes Lack of Transportation: No Lack of Food: Never True Current Housing: I Have Housing Concerned About Future Housing: No Difficulty Paying Gas/Electric Bills: No Difficulty Paying for Meds: No Currently Unemployed: No Education: Bachelor's Degree Difficulty w/ Childcare or Family Care: No Living arrangements: alone Occupation/Education: retired Gender identity (if verbalized by the patient): Male Spiritual care concerns: No Agree to blood products: Yes <Luann Vasques PA-C - Last Filed: 01/18/25 10:18> Exam 2 Narrative: GENERAL: Well-appearing, well-nourished, and in no acute distress. HEAD: Normocephalic, atraumatic. EYES: PERRLA and EOMI. ENT: Nares clear, no rhinorrhea or epistaxis. Mucous membranes moist. Oropharynx without tonsillar hypertrophy exudate or other lesions. NECK: Supple. No adenopathy or masses. CHEST: No respiratory distress. Clear to auscultation. No wheezes rales or rhonchi HEART: Regular rate and rhythm. No murmur heard. Normal peripheral pulses. ABDOMEN: significant abdominal distention present. There is generalized tenderness across the abdomen. Active bowel sounds. MSK: Normal range of motion. No edema. SKIN: Warm, dry, no rash. NEURO: Alert and oriented x4. No focal deficits. PSYCH: Normal mood and affect. <Jose Antonio Cook PA-C - Last Filed: 01/17/25 22:01> Course Vital Signs Vital signs: Vital Signs Temperature 97.9 F 01/17/25 15: Pulse Rate 78 01/17/25 15:26 Respiratory Rate 18 01/17/25 15: Blood Pressure 204/104 H 01/17/25 15:26 Pulse Oximetry 94 01/17/25 15:26 Oxygen Delivery Room Air 01/17/25 15:26 Temperature 97.5 F L 01/18/25 06:00 Pulse Rate 63 01/18/25 06:00 Respiratory Rate 18 01/18/25 06:00 Blood Pressure 149/99 H 01/18/25 06:00 Pulse Oximetry 91 01/18/25 08:07 Oxygen Delivery Room Air 01/18/25 08:07 <Luann Vasques PA-C - Last Filed: 01/18/25 10:18> Vital Signs Temperature 97.9 F 01/17/25 15:26 Pulse Rate 78 01/17/25 15: Respiratory Rate 18 01/17/25 15: Blood Pressure 204/104 H 01/17/25 15: Pulse Oximetry 94 01/17/25 15:26 Oxygen Delivery Room Air 01/17/25 15:26 Temperature 97.5 F L 01/18/25 06:00 Pulse Rate 63 01/18/25 06:00 Respiratory Rate 18 01/18/25 06:00 Blood Pressure 149/99 H 01/18/25 06:00 Pulse Oximetry 91 01/18/25 08:07 Oxygen Delivery Room Air 01/18/25 08:07 <Jose Antonio Cook PA-C - Last Filed: 01/17/25 22:01> MDM - Abdominal Pain MDM Narrative Medical decision making narrative: This is a 79-year-old male who presents to the ED for chief complaint of abdominal pain, nausea and vomiting. Vitals are showing elevated blood pressure but otherwise normal. Exam remarkable for abdominal distension and tenderness. Lab work shows elevated white count of 11. CMP shows elevated BUN and slightly elevated anion gap but normal bicarb. Viral swabs negative. CT imaging of the abdomen pelvis with IV contrast: IMPRESSION: Ascending aortic aneurysm measuring up to 5.6 cm. The descending thoracic aorta is mildly dilated to 3.1 cm. Consider nonemergent but timely outpatient CT angiography of the chest and appropriate referral for monitoring/potential intervention. Mild esophagitis/gastritis. Periesophageal lymphadenopathy. Hepatomegaly with steatosis. Mid small bowel obstruction, transition point in the left lateral abdomen. Small volume ascites. Bladder wall thickening, likely secondary to chronic outlet obstruction from prostatomegaly. Presentation is consistent with small-bowel obstruction. I do believe his symptoms correlate with this. His aneurysm is concerning, however there is no evidence of dissection on the CT report or on his exam. He was given NG-tube. He did eventually take the NG tube out himself due to being uncomfortable. I educated him on the importance of having the NG tube and he was given additional dose of pain medication. He was given fluids, pain medications, antiemetics here. He was given hydralazine for the blood pressure given that his aneurysm is 5.6 cm. Hopefully blood pressure will continue to trend down as we optimize pain control. spoke with Dr. Gonsales (general surgery): He does recommend starting Zosyn. Recommends continuing NG tube and continuing NPO status. Recommends preoperative labs in the morning. Discussed the plan of admission to the patient. He is understanding and agreeable. Discussed the case with Dr. Colmenares (hospitalist) who will admit the patient to medical floor. <Jose Antonio Cook PA-C - Last Filed: 01/17/25 22:01> Lab Data Result diagrams: 01/18/25 06:27 01/18/25 06:27 <Luann Vasques PA-C - Last Filed: 01/18/25 10:18> Labs: Lab Results 01/17/25 01/17/25 Range/Units 15:44 18:27 WBC 11.0 H (4.5-10.0) K/mm3 RBC 5.43 (4.6-6.20) M/mm3 Hgb 15.1 (14.0-18.0) g/dL Hct 46.0 (42.0-52.0) % MCV 84.7 (80-100) fl MCH 27.8 (26-34) pg MCHC 32.8 (32-36) g/dl RDW 13.4 (11.5-14.5) % Plt Count 228 (150-375) k/mm3 MPV 9.7 (7.4-10.4) fl Immature Gran % (Auto) 0.4 (0-0.5) % Neut % (Auto) 85.8 H (45.5-73.1) % Lymph % (Auto) 9.7 L (18.3-44.2) % [place] % (Auto) 3.7 (2.6-8.5) % Eos % (Auto) 0.2 (0-4.4) % Baso % (Auto) 0.2 (0.2-1.2) % Lymph # (Auto) 1.07 (0.9-3.2) K/mm3 [place] # (Auto) 0.4 (0.1-0.6) K/mm3 Eos # (Auto) 0.0 (0-0.3) K/mm3 Baso # (Auto) 0.0 (0.0-0.1) K/mm3 Abs Immat Gran (auto) 0.04 H (0.00-0.031) K/mm3 Absolute Neuts (auto) 9.4 H (1.3-6.7) K/mm3 Absolute Nucleated RBC 0.000 (0.0-0.012) K/mm3 Nucleated RBC % 0.0 (0.0-0.2) % Sodium 139 (137-145) mmol/L Potassium 3.8 (3.4-5.0) mmol/L Chloride 98 (98-107) mmol/L Carbon Dioxide 26 (22-30) mmol/L Anion Gap 15 H (4-12) mmol/L BUN 24 H (9-20) mg/dL Creatinine 1.29 (0.7-1.3) mg/dL Estim Creat Clear Calc 53 ml/min Estimated GFR 54 L (59 - ) Glucose 166 H (65-110) mg/dL Lactic Acid 1.7 (0.7-2.0) mmol/L Calcium 10.1 (8.4-10.2) mg/dL Total Bilirubin 1.0 (0.2-1.3) mg/dL AST 61 H (17-59) U/L ALT 60 H (6-50) U/L Alkaline Phosphatase 29 L (38-126) U/L Total Protein 9.0 H (6.3-8.2) g/dL Albumin 4.7 (3.5-5.1) g/dL Lipase 110 (23-300) U/L Influenza A (RT-PCR) Negative (Negative) Influenza B (RT-PCR) Negative (Negative) SARS-CoV-2 RNA (RT-PCR) Negative (Negative) <Luann Vasques PA-C - Last Filed: 01/18/25 10:18> Lab Results 01/17/25 01/17/25 Range/Units 15:44 18:27 WBC 11.0 H (4.5-10.0) K/mm3 RBC 5.43 (4.6-6.20) M/mm3 Hgb 15.1 (14.0-18.0) g/dL Hct 46.0 (42.0-52.0) % MCV 84.7 (80-100) fl MCH 27.8 (26-34) pg MCHC 32.8 (32-36) g/dl RDW 13.4 (11.5-14.5) % Plt Count 228 (150-375) k/mm3 MPV 9.7 (7.4-10.4) fl Immature Gran % (Auto) 0.4 (0-0.5) % Neut % (Auto) 85.8 H (45.5-73.1) % Lymph % (Auto) 9.7 L (18.3-44.2) % [place] % (Auto) 3.7 (2.6-8.5) % Eos % (Auto) 0.2 (0-4.4) % Baso % (Auto) 0.2 (0.2-1.2) % Lymph # (Auto) 1.07 (0.9-3.2) K/mm3 [place] # (Auto) 0.4 (0.1-0.6) K/mm3 Eos # (Auto) 0.0 (0-0.3) K/mm3 Baso # (Auto) 0.0 (0.0-0.1) K/mm3 Abs Immat Gran (auto) 0.04 H (0.00-0.031) K/mm3 Absolute Neuts (auto) 9.4 H (1.3-6.7) K/mm3 Absolute Nucleated RBC 0.000 (0.0-0.012) K/mm3 Nucleated RBC % 0.0 (0.0-0.2) % Sodium 139 (137-145) mmol/L Potassium 3.8 (3.4-5.0) mmol/L Chloride 98 (98-107) mmol/L Carbon Dioxide 26 (22-30) mmol/L Anion Gap 15 H (4-12) mmol/L BUN 24 H (9-20) mg/dL Creatinine 1.29 (0.7-1.3) mg/dL Estim Creat Clear Calc 53 ml/min Estimated GFR 54 L (59 - ) Glucose 166 H (65-110) mg/dL Lactic Acid 1.7 (0.7-2.0) mmol/L Calcium 10.1 (8.4-10.2) mg/dL Total Bilirubin 1.0 (0.2-1.3) mg/dL AST 61 H (17-59) U/L ALT 60 H (6-50) U/L Alkaline Phosphatase 29 L (38-126) U/L Total Protein 9.0 H (6.3-8.2) g/dL Albumin 4.7 (3.5-5.1) g/dL Lipase 110 (23-300) U/L Influenza A (RT-PCR) Negative (Negative) Influenza B (RT-PCR) Negative (Negative) SARS-CoV-2 RNA (RT-PCR) Negative (Negative) <Jose Antonio Cook PA-C - Last Filed: 01/17/25 22:01> Imaging Data Radiologist's impression: ITS Impressions Abdomen/Pelvis CT 01/17/25 18:07 IMPRESSION: Ascending aortic aneurysm measuring up to 5.6 cm. The descending thoracic aorta is mildly dilated to 3.1 cm. Consider nonemergent but timely outpatient CT angiography of the chest and appropriate referral for monitoring/potential intervention. Mild esophagitis/gastritis. Periesophageal lymphadenopathy. Hepatomegaly with steatosis. Mid small bowel obstruction, transition point in the left lateral abdomen. Small volume ascites. Bladder wall thickening, likely secondary to chronic outlet obstruction from prostatomegaly. Abdomen X-Ray 01/17/25 21:15 IMPRESSION: NG tube, in good position. Subsegmental left basilar atelectasis/consolidation, unchanged. Unchanged dilated small bowel loops. <Luann Vasques PA-C - Last Filed: 01/18/25 10:18> ITS Impressions Abdomen/Pelvis CT 01/17/25 18:07 IMPRESSION: Ascending aortic aneurysm measuring up to 5.6 cm. The descending thoracic aorta is mildly dilated to 3.1 cm. Consider nonemergent but timely outpatient CT angiography of the chest and appropriate referral for monitoring/potential intervention. Mild esophagitis/gastritis. Periesophageal lymphadenopathy. Hepatomegaly with steatosis. Mid small bowel obstruction, transition point in the left lateral abdomen. Small volume ascites. Bladder wall thickening, likely secondary to chronic outlet obstruction from prostatomegaly. Abdomen X-Ray 01/17/25 21:15 IMPRESSION: NG tube, in good position. Subsegmental left basilar atelectasis/consolidation, unchanged. Unchanged dilated small bowel loops. <Jose Antonio Cook PA-C - Last Filed: 01/17/25 22:01> Critical Care Time Critical Care Time Critical Care Time: No <Luann Vasques PA-C - Last Filed: 01/18/25 10:18> Discharge Plan Discharge Clinical Impression: SBO (small bowel obstruction) <Luann Vasques PA-C - Last Filed: 01/18/25 10:18> Patient Disposition: Still a Patient <Luann Vasques PA-C - Last Filed: 01/18/25 10:18> Condition: Stable <NATALIE Rivas Last Filed: 01/18/25 10:18>
--- NOTE | 2025-01-17 15:31 | ECG_ITS ---
Test Date: 2025-01-17 15:41:17 Measurements Intervals [place] Rate: 79 P: 14 AK: 217 QRS: -81 QRSD: 128 T: 94 QT: 438 QTc: 504 Interpretive Statements SINUS RHYTHM WITH FIRST DEGREE AV BLOCK RIGHT BUNDLE BRANCH BLOCK LEFT ANTERIOR FASCICULAR BLOCK BASELINE WANDER- V2-V6 ABNORMAL ECG No previous ECG available for comparison Electronically Signed On 01-17-2025 15:46:14 QUENCHING CAR OPERATOR by Alphonso Orlando D.O.
[2025-01-17 15:54] LABS: Basophils Percent Auto 0.2 % (0.2-1.2); Eosinophils Percent Auto 0.2 % (0-4.4); Hemoglobin 15.1 g/dL (14.0-18.0); Immature Granulocyte Absolute 0.04 K/mm3 (0.00-0.031); Immature Granulocyte Percent A 0.4 % (0-0.5); Lymphocytes Absolute Auto 1.07 K/mm3 (0.9-3.2); Lymphocytes Percent Auto 9.7 % (18.3-44.2); Mean Corpuscular HGB Conc 32.8 g/dl (32-36); Mean Corpuscular Hemoglobin 27.8 pg (26-34); Mean Corpuscular Volume 84.7 fl (80-100); Mean Platelet Volume 9.7 fl (7.4-10.4); Monocytes Absolute Auto 0.4 K/mm3 (0.1-0.6); Monocytes Percent Auto 3.7 % (2.6-8.5); Neutrophils Absolute Auto 9.4 K/mm3 (1.3-6.7); Neutrophils Percent Auto 85.8 % (45.5-73.1); Platelet Count Result 228 k/mm3 (150-375); Red Blood Count 5.43 M/mm3 (4.6-6.20); Red Cell Distribution Width 13.4 % (11.5-14.5)
[2025-01-17] MEDS: ONDANSETRON INJ 4 MG/2 ML VIAL IV PUSH ×2 (16:00→22:44)
[2025-01-17] MEDS: FAMOTIDINE 20 MG/2 ML VIAL IV PUSH (16:00)
[2025-01-17 16:29] LABS: Influenza A QL RT-PCR Negative (Negative); Influenza B QL RT-PCR Negative (Negative); SARS-CoV-2 RNA PCR Negative (Negative)
[2025-01-17 17:05] LABS: Alanine Aminotransferase 60 U/L (6-50); Albumin Level 4.7 g/dL (3.5-5.1); Alkaline Phosphatase 29 U/L (38-126); Anion Gap 15 mmol/L (4-12); Aspartate Amino Transferase 61 U/L (17-59); Blood Urea Nitrogen 24 mg/dL (9-20); Calcium 10.1 mg/dL (8.4-10.2); Carbon Dioxide 26 mmol/L (22-30); Chloride 98 mmol/L (98-107); Estimated CRCL calculation 53 ml/min; Estimated Glomerular Filt Rate 54; Glucose 166 mg/dL (65-110); Lipase 110 U/L (23-300); Potassium 3.8 mmol/L (3.4-5.0); Sodium 139 mmol/L (137-145)
--- OUTSIDE RECORDS SUMMARY | 2025-01-17 17:45 | XMS_ITS | Referral Summary ---
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 Gender Identity Not on file Sexual Orientation Not on file Last Filed Vital Signs Vital Sign Reading Time Taken Comments Blood Pressure 156/94 03/04/2022 1:02 PM CDT Pulse 64 03/04/2022 1:02 PM CDT Temperature - - Respiratory Rate 18 11/25/2021 10:42 AM DIRECTOR MEDICAL AFFAIRS Oxygen Saturation 95% 11/25/2021 10:42 AM DIRECTOR MEDICAL AFFAIRS Inhaled Oxygen Concentration - - Weight 133.8 kg (295 lb) 03/04/2022 1:02 PM CDT Height 167.6 cm (5' 6 ) 03/04/2022 1:02 PM CDT Body Mass Index 47.61 03/04/2022 1:02 PM CDT Plan of Treatment Not on file Insurance [employer] MEDICARE [facility] AETNA [facility] REF Care Teams Form Tamping Machine Operator Relationship Specialty Start Date End Date Rachelle Freitas DO PCP - General Family Medicine 09/03/21
--- OUTSIDE RECORDS SUMMARY | 2025-01-17 17:45 | XMS_ITS | Clinical Summary ---
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 Gender Identity Not on file Sexual Orientation Not on file Obstetrics History Last Filed Vital Signs Vital Sign Reading Time Taken Comments Blood Pressure 156/94 03/04/2022 1:02 PM CDT Pulse 64 03/04/2022 1:02 PM CDT Temperature - - Respiratory Rate 18 11/25/2021 10:42 AM SNAKE CHARMER Oxygen Saturation 95% 11/25/2021 10:42 AM SNAKE CHARMER Inhaled Oxygen Concentration - - Weight 133.8 [...] , 08/19/2019, 09/02/2018, Additional history exists Insurance [facility] MEDICARE [facility]OLD [facility] [place] [address] [place] [address] REF Care Teams Deputy Editor In Chief Relationship Specialty Start Date End Date Rachelle Freitas DO PCP - General Family Medicine 09/03/21
--- OUTSIDE RECORDS SUMMARY | 2025-01-17 17:45 | XMS_ITS | Data Portability ---
Author Organization [place] [employer], Main Office Address [address] [place] [address] Care Team Providers Care Game Developer Name Role Phone NED BETHEA Primary Care Provider [phone] NED BETHEA Referring Provider [phone] Assessment Encounter Date Assessment Date Assessment LastModified by Organization Details LastModified Time 04/07/2023 04/07/2023 Impression: Gayatri chadwick has moderate medial compartment osteoarthritis in the left knee which is new for him to have symptoms and longstanding ewhn-xh-uwum medial compartment osteoarthritis the right knee. He [...] more than half the time spent in dhis-ka-bnol care. Not available 04/07/2023 10:57:45 07/12/2023 07/12/2023 [...] 305 lb BMI is 52.5. He has deox-ly-zgdtslco palpable effusions in both knees. He has chronic lymphedema in both lower extremities with chronic skin changes in both lower extremities. No redness or signs symptoms cellulitis. He has wyud-ik-nxgjxslp tenderness over medial joint lines to palpation. [...] patient more than half of this in xutm-yj-kani conversation [email or web address] Not available 08/11/2023 16:10:17 Plan of Treatment Reminders Order Date Submit Date Provider Last Modified By Organization Details Last Modified Time Details Appointments None recorded. Lab None recorded. Referral None recorded. Procedures knee aspiration/ injection (PROC) 2022 023 In-Office Order, Internal Use Only DO Not Attach Compendium DO Not Attach Compendium, Do Not Delete/merge, [id number] 14:49:13 injection/a spiration joint/bursa (PROC) - in office procedure, administere d by provider 2022 023 In-Office Order, Internal Use Only DO Not Attach Compendium DO Not Attach Compendium, Do Not Delete/merge, [id number] 3 10:30:52 Surgeries None recorded. Imaging None recorded. Medication Orders Monovisc 88 mg/4 mL intra-artic ular syringe 2022 023 [email or web address] [facility] [address] [place], [address], 3 16:11:19 Kenalog 10 mg/mL suspension for injection [address] [facility] [address] [place], [address], 3 10:30:52 ropivacaine (PF) 5 mg/mL (0.5 %) injection solution [address] [place], [address], 3 10:30:52 Patient TargetsNo targets recorded. Patient [...] Recorded Time Bilateral osteoarthri tis of knees [id number] 07 Active 2022 Lupe Gurrola CMA null, [email or web address] 10:43:17 Problem Notes None recorded. Procedures Surgical History Date Name Laterality Status Provider Name and Address Organization Details Recorded Time Gallstones completed FATMATA Muñoz [employer] [facility] 04/07/2023 10:20:03 Imaging Results Imaging Date Name [...] , administe red by provider [address] [facility]: [phone] Not Available Not Available [...] , administe red by provider [address] [facility] [phone] Not Available Not Available Not [...] Updated DateTime 04/07/2023 162.56 cm 52.5 kg/m2 165520.55 g FATMATA Muñoz [facility] [employer] [facility] 04/07/2023 10:27:39 Date Recorded Body height Provider Name an d Address Organization Details Last Updated DateTime 07/12/2023 162.56 cm FATMATA Muñoz [facility] 07/12/2023 14:46:05 Date Recorded Body height Provider Name an d Address Organization Details Last Updated DateTime 08/11/2023 162.56 cm FATMATA Muñoz [facility] [employer] [facility] 08/11/2023 14:46:12 Social History Question Answer Notes LastModified by Organizat ion Details LastModified Time Tobacco Smoking Status Never Smoker FATMATA Muñoz [facility] 04/07/2023 10:19:51 What Is Your Level Of Alcohol Consumption? None [email or web address] Information not available 04/07/2023 Sex: Unknown Functional Status None recorded. Mental Status None recorded. Family History Relationship Description Onset Age of this Age Resolved Age Notes LastModified by Organization Details LastModified Time Father Family history of stroke [email or web address] Not available 2022 10:19:17 Father Hypertensive disorder [email or web address] Not available 2022 10:19:33 Mother Family history of stroke [email or web address] Not available 2022 10:19:17 Maternal Grandmother Diabetes mellitus Not available 2022 10:19:42 Medical History Condition Response ARTHRITIS Y BLOOD CLOTS Y ANEMIA/BLOOD DISORDER Y HYPERTENSION Y Past Encounters Encounter ID Performer Location Encounter Start Date Encounter Closed Date Diagnosis/Indication Diagnosis SNOMED-CT Code Diagnosis ICD10 Code Diagnosis Note [id number] Gt Nolan MD [facility] [address] [place] [address] 04/07/2023 09:38:00 04/07/2023 11:07:18 Bilateral osteoarthritis of knees [id number] 04898 M17.0 [id number] SANTINO Ayala [facility] [address] [place] [address] 07/12/2023 14:41:56 07/12/2023 15:23:05 Bilateral osteoarthritis of knees [id number] 98140 M17.0 [id number] SANTINO Ayala [facility] [address] [facility] [place] [address] 08/11/2023 14:43:19 08/11/2023 16:57:09 Bilateral osteoarthritis of knees [id number] 38103 M17.0 Health Concerns Section Related Observation LastModified by Organization Detai ls LastModified Time None Recorded Concern Status LastModified by Organization Details LastModified Time None Recorded Advance Directives Directive None Recorded Payers Encounter Date Sequence Insurance Name Policy Number Policy Gramajo Covered Member ID Gramajo Member ID Guarantor Name 04/07/2023 1 [employer] - [employer] (MEDICARE REPLACEMENT/ ADVANTAGE - HMO) [id number] Yash Herrera Timothy [id number] Yash [place] 07/12/2023 1 [employer] - [employer] (MEDICARE REPLACEMENT/ ADVANTAGE - HMO) [id number] Yash Javier Timothy [id number] Yash [place] 08/11/2023 1 [employer] - [employer]IME (MEDICARE REPLACEMENT/ ADVANTAGE - HMO) [id number] Yash Herrera Timothy [id number] Yash Escobarnely Notes Date Note Type Note [...] the lawn more 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 He had no trauma but after [...] 03/16/2023 which demonstrate on the right knee [id number] medial compartment osteoarthritis in the left knee moderate medial joint space narrowing with probable effusion. These are nonweightbearing x-rays. Gt Nolan MD [address] [facility], [facility] [address], [place], [address], [facility] [employer] 04/07/2023 10:58:02
--- OUTSIDE RECORDS SUMMARY | 2025-01-17 17:46 | XMS_ITS | Patient Health Record ---
Author Organization [facility] Address [address] [place] [address] Support Name Relationship Address Phone Yash Aguirre Guarantor Unknown [phone] Reason For Referral No Information Plan Of Treatment No Information Insurance Providers Payer Name Payer Address Payer Phone Subscriber Number Group Number Insured Name Patient Relationship to Insured Coverage Start Date Coverage End Date [facility]/ [employer] PPO/HMO [address] [place] [address] [id number] Yash Vargas Self - patient is the insured
[2025-01-17] MEDS: HYDROmorphone HCL INJ (*CRX) 1 MG/ML SYR 0.5 MG IV PUSH (18:01)
--- NOTE | 2025-01-17 18:05 | PC.NURSE ---
Patient aware of needed to obtain urine sample
--- OUTSIDE RECORDS SUMMARY | 2025-01-17 18:38 | XMS_ITS | Clinical Summary ---
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 Gender Identity Not on file Sexual Orientation Not on file Obstetrics History Last Filed Vital Signs Vital Sign Reading Time Taken Comments Blood Pressure 156/94 03/04/2022 1:02 PM CDT Pulse 64 03/04/2022 1:02 PM CDT Temperature - - Respiratory Rate 18 11/25/2021 10:42 AM LEAN COACH Oxygen Saturation 95% 11/25/2021 10:42 AM LEAN COACH Inhaled Oxygen Concentration - - Weight 133.8 [...] , 08/19/2019, 09/02/2018, Additional history exists Insurance [facility] MEDICARE GOLD [facility] [place] [address] [place] [address] REF Care Teams Cargo Bracer Relationship Specialty Start Date End Date Rachelle Freitas DO PCP - General Family Medicine 09/03/21
--- OUTSIDE RECORDS SUMMARY | 2025-01-17 18:38 | XMS_ITS | Referral Summary ---
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
[2025-01-17 18:45] LABS: Lactic Acid Reflex 1.7 mmol/L (0.7-2.0)
[2025-01-17] MEDS: hydrALAZINE HCL 20 MG/ML VIAL 10 MG IV PUSH (19:04)
[2025-01-17] MEDS: LABETALOL HCL INJ 100 MG/20 ML VIAL 20 MG IV PUSH (20:20)
[2025-01-17] MEDS: HYDROmorphone HCL INJ (*CRX) 2 MG/ML VIAL 0.5 MG IV PUSH (20:20)
[2025-01-17] MEDS: SODIUM CHLORIDE 0.9% IV 1,000 ML 125 ML IV CONT (20:21)
[2025-01-17] MEDS: PIPERACILLIN/TAZ 4.5G/NS 100ML 4.5 GM/100 ML BAG IVPB (20:21)
--- NOTE | 2025-01-17 20:58 | PC.NURSE ---
Upon entering pt room at 2020, pt found holding NG tube over the side of the bed with stomach contents all over the floor. Pt stated It was too uncomfortable. SANTINO Brady notified. NG tube replaced at 2044.
--- NOTE | 2025-01-17 21:19 | P.HP_ITS ---
H&P: HPI History of Present Illness Date/Time: 01/17/25 21:19 Chief Complaint: 1. Abdominal pain 2. Nausea and vomiting Narrative: Yash Aguirre is an 79 yo M with a mHx significant for obesity, s/p cholecystectomy; complications of robotic cholecystectomy leading to an Ex-lap, dyslipidemia, BPH, Hypothyroidism, DVT He presents with a few hours' history of central abdominal pain; it is localized; rated 10 in intensity, aggravated by meals/drinks, alleviated by fasting; associated with bilious but non-bloody emesis, malaise, anorexia, chills and rigors. His last BM was days ago; he denies chest pain, dizziness, LOC, flank pain, dysuria, hematuria or HILL. 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 Work-up findings: WbC 11 AG 15; BUN 24; Cr 1.29; GFR 54 LA 1.7; AST 61; ALT 60; ALP 29; T.Bili 1; Lipase 110 Influenza A/B, RSV, COVID-19: Not detected CTAP: Ascending aortic aneurysm measuring up to 5.6 cm. The descending thoracic aorta is mildly dilated to 3.1 cm. Consider nonemergent but timely outpatient CT angiography of the chest and appropriate referral for monitoring/potential intervention. Mild esophagitis/gastritis. Periesophageal lymphadenopathy. Hepatomegaly with steatosis. Mid small bowel obstruction, transition point in the left lateral abdomen. Small volume ascites. Bladder wall thickening, likely secondary to chronic outlet obstruction from prostatomegaly. Yash Aguirre will be admitted, evaluated and managed for SBO Review of Systems Review of Systems: All systems reviewed & are unremarkable except as noted in HPI and below PMFSH Past Medical History Medical History Anticoagulant long-term use Arm fracture (1958) Colon cancer screening History of chicken pox History of measles History of mumps Hx of deep venous thrombosis Intermittent diarrhea Lower GI bleed Normal colonoscopy (06/29/12) 07/19/2012 Spinal stenosis Surgical History Surgical History H/O nasal septoplasty (1992) History of tonsillectomy (~1949) Hx of cholecystectomy (1991) Family History Family History Grandparent Diabetes mellitus Hypertension Cerebrovascular accident Father Hypertension Family history of elevated blood lipids, Onset Age: 89 Family history of cardiovascular disease Cerebrovascular accident Mother Family history of elevated blood lipids, Onset Age: 93 Family history of cardiovascular disease Diabetes mellitus Hypertension Cerebrovascular accident Social History Social History Smoking status: Never smoker Alcohol intake: current Alcohol use details: occasionnally Substance use: never Substance use type: does not use Do You Feel Safe in your Home?: Yes Lack of Transportation: No Lack of Food: Never True Current Housing: I Have Housing Concerned About Future Housing: No Difficulty Paying Gas/Electric Bills: No Difficulty Paying for Meds: Decline to Answer Currently Unemployed: No Education: Bachelor's Degree Difficulty w/ Childcare or Family Care: No Living arrangements: alone Occupation/Education: retired Gender identity (if verbalized by the patient): Male Spiritual care concerns: No Agree to blood products: Yes Meds Home Medications and Allergies Home Medications ?Medication ?Instructions ?Recorded ?Confirmed ?Type Glucosamine Chondroitin 1 cap PO DAILY 05/02/24 10/05/24 History acetaminophen 500 mg tablet 500 mg PO BID 05/02/24 10/05/24 History saw palmetto 450 mg capsule 450 mg PO DAILY 05/02/24 10/05/24 History lisinopril 20 See Rx Instructions .Route 07/25/24 10/05/24 Rx mg-hydrochlorothiazide 25 mg tablet .COMPLEX #90 tabs levothyroxine 25 mcg tablet 25 mcg PO DAILY #90 tabs 08/30/24 10/05/24 Rx doxazosin 8 mg tablet See Rx Instructions .Route 09/13/24 10/05/24 Rx .COMPLEX #90 tabs ferrous sulfate 324 mg (65 mg See Rx Instructions .Route .COMPLEX 09/13/24 10/05/24 History iron) tablet,delayed release rivaroxaban 20 mg tablet (Xarelto) See Rx Instructions .Route 09/13/24 10/05/24 Rx .COMPLEX #90 tabs fenofibrate micronized 134 mg See Rx Instructions .Route 09/28/24 10/05/24 Rx capsule .COMPLEX #90 caps triamcinolone acetonide 0.1 % See Rx Instructions .Route 10/03/24 10/05/24 Rx topical cream .COMPLEX #80 grams prednisone 10 mg tablet 10 mg PO DIRECTED #42 tabs 10/05/24 10/05/24 Rx finasteride 5 mg tablet See Rx Instructions .Route 10/30/24 Rx .COMPLEX #90 tabs metformin 1,000 mg tablet 1,000 mg PO BID #180 tabs 12/12/24 Rx simvastatin 10 mg tablet 10 mg PO DAILY #90 tabs 12/12/24 Rx semaglutide 0.25 mg or 0.5 mg (2 0.5 mg (0.736 mL) subcut WEEKLY #3 12/19/24 Rx mg/3 mL) subcutaneous pen injector mL (Ozempic) metoprolol succinate 25 mg 25 mg PO DAILY #90 tabs 12/28/24 Rx tablet,extended release 24 hr gabapentin 300 mg capsule See Rx Instructions .Route 01/08/25 Rx .COMPLEX #90 caps Allergies Allergy/AdvReac Type Severity Reaction Status Date / Time No Known Drug Allergies Allergy Unknown Verified 01/17/25 07:40 Vital Signs Vital Signs - 24 hr 01/17/25 15:26 01/17/25 17:54 01/17/25 18:55 Temperature 97.9 F Pulse Rate 78 79 86 Respiratory Rate 18 18 18 Blood Pressure 204/104 H 173/71 H 187/110 H Pulse Oximetry 94 93 93 Oxygen Delivery Room Air 01/17/25 19:40 01/17/25 20:18 Temperature Pulse Rate 95 86 Respiratory Rate 17 Blood Pressure 189/95 H 197/85 H Pulse Oximetry 96 98 Oxygen Delivery Exam Const: General: in distress Eyes: General: appearance normal, both eyes and all related structures Neck: Neck: supple Resp: Effort & Inspection: normal respiratory effort Cardio: Rate: regular rate Rhythm: regular rhythm GI: Inspection: distended Auscultation: abnormal bowel sounds Skin: General skin exam: normal color Neuro: General: gait normal Motor exam (neuro): 5/5 motor strength present throughout and Normal motor muscle tone present throughout Extrem: General: normal to inspection Psych: Mental Status: mental status grossly normal Affect: normal affect H&P: Results Labs Labs: Short CBC 01/17/25 Range/Units 15:44 WBC 11.0 H (4.5-10.0) K/mm3 Hgb 15.1 (14.0-18.0) g/dL Hct 46.0 (42.0-52.0) % Plt Count 228 (150-375) k/mm3 BMP 01/17/25 15:44 Sodium 139 Potassium 3.8 Chloride 98 Carbon Dioxide 26 BUN 24 H Creatinine 1.29 Glucose 166 H Calcium 10.1 Liver Function 01/17/25 Range/Units 15:44 Total Bilirubin 1.0 (0.2-1.3) mg/dL AST 61 H (17-59) U/L ALT 60 H (6-50) U/L Alkaline Phosphatase 29 L (38-126) U/L Albumin 4.7 (3.5-5.1) g/dL Assessment and Plan Assessment and plan (1) SBO (small bowel obstruction): Code(s): K56.609 - Unspecified intestinal obstruction, unspecified as to partial versus complete obstruction Status: Acute Plan Acute and principal conditions 1. SBO 2. Esophagitis; Gastritis Rx: A. NPO; IVFs; PPI B. General surgery consulted C. Hold AC, Rivaroxaban D. NGT placed; removed by patient. Will replace Chronic and stable conditions 1. Ascending aortic aneurysm measuring up to 5.6 cm Descending thoracic aorta is mildly dilated to 3.1 cm. 2. Hepatomegaly with steatosis 3. BPH; prostatomegaly 4. Obesity, BMI 44 5. Hypothyroidism. 6. NIDDm2. Miscellaneous care. 1. Code status. Full 2. Nutrition. NPO 3. VTE prophylaxis. SCDs; resume AC post-procedure; may need Heparin gtt if surgery delaye.
[2025-01-17] MEDS: SODIUM CHLORIDE 0.9% IV 1,000 ML 100 ML IV CONT (21:28)
--- NOTE | 2025-01-17 21:34 | PC.NURSE ---
attempted to get pt to urinate, pt states is unable to urinate at this time. call light on pt lap and pt instructed to call if he needs to urinate. explained importance of obtaining urine sample, pt understands.
[2025-01-17] MEDS: PANTOPRAZOLE SODIUM IV 40 MG VIAL IV PUSH (22:44)
[2025-01-17 23:25] LABS: Add Urine Microscopic? YES; Appearance Urine Clear (Clear); Bacteria Urine None Seen /hpf; Bilirubin Urine Negative (Negative); Blood Urine Negative (Negative); Color Urine Yellow (Yellow); Glucose Urine UA Negative (Negative); Ketones Urine Trace mg/dL (Negative); Leukocyte Esterase Ur Negative LEU/UL (Negative); Nitrate Urine Negative (Negative); Non Pathogenic Casts 0-2; Protein Urine 4+ mg/dL (Negative); RBC Urine 0-2 /hpf (0-2); Specific Grav Ur > 1.045 (1.001-1.035); Squamous Epithelial Cell Urine None Seen /hpf (Few); WBC Urine 0-5 /hpf (0-3)
[2025-01-18] VITALS (15 sets, daily range): BP systolic 102–190; BP diastolic 43–99; PULSE 62–107; RESP 12–20; TEMP 36.1–36.8; O2SAT 91–99
--- NOTE | 2025-01-18 00:16 | ADMGEN ---
This patient, Yash Aguirre, was admitted to [facility] Surg Room 313-01. Patient/family oriented to hospital policies and general routines including ID bracelet, bed and alarms, visiting hours, pain management, procedures, bathroom and other care routines, personal items, smoking policy, room service/diet, and visiting hours. Information on how to activate the Rapid Response Team has been discussed. Patient/Family are encouraged to report perceived risks to care and to ask questions if they do not understand what they are told or what they should do.
[2025-01-18] MEDS: HYDROmorphone HCL INJ (*CRX) 2 MG/ML VIAL 0.5 MG IV PUSH ×2 (02:46→10:16)
[2025-01-18] MEDS: SODIUM CHLORIDE 0.9% IV 1,000 ML 100 ML IV CONT (05:33)
[2025-01-18 06:47] LABS: Basophils Percent Auto 0.3 % (0.2-1.2); Hematocrit 42.3 % (42.0-52.0); Hemoglobin 13.4 g/dL (14.0-18.0); Immature Granulocyte Absolute 0.03 K/mm3 (0.00-0.031); Immature Granulocyte Percent A 0.3 % (0-0.5); Lymphocytes Absolute Auto 1.24 K/mm3 (0.9-3.2); Lymphocytes Percent Auto 10.4 % (18.3-44.2); Mean Corpuscular HGB Conc 31.7 g/dl (32-36); Mean Corpuscular Hemoglobin 27.7 pg (26-34); Mean Corpuscular Volume 87.6 fl (80-100); Mean Platelet Volume 9.5 fl (7.4-10.4); Monocytes Absolute Auto 0.8 K/mm3 (0.1-0.6); Monocytes Percent Auto 6.9 % (2.6-8.5); Neutrophils Absolute Auto 9.8 K/mm3 (1.3-6.7); Neutrophils Percent Auto 82.1 % (45.5-73.1); Platelet Count Result 205 k/mm3 (150-375); Red Blood Count 4.83 M/mm3 (4.6-6.20); Red Cell Distribution Width 13.6 % (11.5-14.5); White Blood Count 11.9 K/mm3 (4.5-10.0)
[2025-01-18 06:56] LABS: INR 1.1; Partial Thromboplastin Time 25.6 Seconds (22.3-36.8); Prothrombin Time 15.1 Seconds (11.1-14.7)
[2025-01-18 07:06] LABS: Alanine Aminotransferase 42 U/L (6-50); Alkaline Phosphatase 22 U/L (38-126); Anion Gap 17 mmol/L (4-12); Aspartate Amino Transferase 40 U/L (17-59); Bilirubin,Total 0.9 mg/dL (0.2-1.3); Blood Urea Nitrogen 26 mg/dL (9-20); Calcium 9.3 mg/dL (8.4-10.2); Carbon Dioxide 20 mmol/L (22-30); Chloride 100 mmol/L (98-107); Estimated CRCL calculation 53 ml/min; Estimated Glomerular Filt Rate 53; Glucose 135 mg/dL (65-110); Potassium 3.8 mmol/L (3.4-5.0); Sodium 137 mmol/L (137-145)
[2025-01-18] MEDS: PIPERACILLN/TAZ 3.375GM/NS50ML 3.375 GM/50 ML BAG IVPB ×3 (10:10→21:33)
[2025-01-18] MEDS: PANTOPRAZOLE SODIUM IV 40 MG VIAL IV PUSH ×2 (10:10→23:09)
--- NOTE | 2025-01-18 11:09 | PM.CNGS ---
Assessment and Plan Assessment and plan (1) SBO (small bowel obstruction): Code(s): K56.609 - Unspecified intestinal obstruction, unspecified as to partial versus complete obstruction Status: Acute Assessment and Plan: Patient presented with upper abdominal pain x 3 days with nausea and vomiting. CT scan showed evidence of a mid small bowel obstruction with transition point in the left lateral abdomen. NG tube is in place. He does have a history of a laparotomy almost 30 years ago that could account for intraabdominal adhesions. He has had relief in his nausea since NG tube placement, but is still having abdominal pain. He does not have an acute surgical abdomen. He does endorse some flatus, but no bowel movement for the past 4 days. We would recommend to continue NG tube decompression, bowel rest, and IV fluids. Analgesics are available as needed. Will order a water soluble small bowel follow through to evaluate the small bowel obstruction. I discussed with the patient that surgical management is reserved for high-grade small bowel obstruction, perforation, or signs of bowel ischemia. If the SBS shows evidence of a high-grade obstruction, then he will need surgical exploration. To note, he has multiple co-morbidities that would increase his surgical risks. He is also on anticoagulation, but reportedly has not taken his Xarelto for 72 hours due to his symptoms. If the contrast moves through to the colon without signs of an obstruction, then we could potentially remove his NG tube and start a liquid diet. Will continue to follow along closely. (2) Type 2 diabetes mellitus with diabetic nephropathy: Code(s): E11.21 - Type 2 diabetes mellitus with diabetic nephropathy Status: Acute (3) Anticoagulant long-term use: Code(s): Z79.01 - terminal operations supervisor (current) use of anticoagulants Status: Acute Assessment and Plan: Hold Xarelto. (4) Hx of deep venous thrombosis: Code(s): Z86.718 - Personal history of other venous thrombosis and embolism Status: Acute (5) Aortic stenosis, mild: Code(s): I35.0 - Nonrheumatic aortic (valve) stenosis Status: Acute Assessment and Plan: Mild aortic stenosis noted on echo from 2021. (6) Hypertension: Qualifiers: Hypertension type: primary hypertension Qualified Code(s): I10 - Essential (primary) hypertension Code(s): I10 - Essential (primary) hypertension Status: Acute (7) Chronic kidney disease, stage 3 (moderate): Code(s): N18.3 - Chronic kidney disease, stage 3 (moderate) Status: Acute (8) Morbid obesity with body mass index (BMI) of 40.0 or higher: Code(s): E66.01 - Morbid (severe) obesity due to excess calories Status: Acute (9) Ascending aortic aneurysm: Code(s): I71.21 - Aneurysm of the ascending aorta, without rupture Status: Acute Assessment and Plan: New incidental finding on CT with ascending aortic aneurysm measuring 5.6 cm. Radiologist recommending timely outpatient CTA of chest for appropriate referral for monitoring/potential intervention. Discussed with patient. Plan I have discussed the patient's case and plan of care with Dr. Gonsales. Thank you for allowing us to see the patient in consultation and we will continue to follow along with you. History of Present Illness Consult details Consult date: 01/18/25 Reason for consult: other ( Small-bowel obstruction) Requesting physician: Jose Antonio Cook PA-C Narrative: This is an 79-year-old man with PMH of type 2 diabetes mellitus, hypertension, hyperlipidemia, on anticoagulation for history of DVT, and CKD, who we have been asked to see in surgical consultation for a small-bowel obstruction. He reports waking up with upper abdominal pain 3 days ago. His pain would come and go. He developed nausea and vomiting. He reports emesis appears bilious. His abdominal pain continued to progress and he eventually came into the ED yesterday for evaluation. Denies history of small-bowel obstructions. [place] [address], lactic acid 1.7. CT scan of the abdomen and pelvis showed mid small-bowel obstruction with transition point in the left lateral abdomen, small volume ascites, hepatomegaly with steatosis, bladder wall thickening likely secondary to chronic outlet obstruction from prostatomegaly,. Sulfa SHERRI lymphadenopathy, mild esophagitis / gastritis, ascending aortic aneurysm measuring up to 5.6 cm, descending thoracic aorta is mildly dilated to 3.1 cm. He had an NG tube placed and was admitted to the hospitalist service. He is currently NPO. He endorses some flatus this morning. Last bowel movement was 4 days ago. He reports having some chronic intermittent diarrhea, but no changes in his bowels recently. He is still having abdominal pain that improves with analgesics. Only previous abdominal surgery was a laparoscopic cholecystectomy with conversion to open for bleeding complications in . Review of Systems Review of Systems: All systems reviewed & are unremarkable except as noted in HPI and below PMFSH Past Medical History Medical History Anticoagulant long-term use Hx of deep venous thrombosis Intermittent diarrhea Lower GI bleed Colon cancer screening History of mumps History of measles History of chicken pox Spinal stenosis Arm fracture (1958) Normal colonoscopy (06/29/12) 07/19/2012 Surgical History Surgical History History of tonsillectomy (~1948) Hx of cholecystectomy (1991) H/O nasal septoplasty (1992) Family History Family History Grandparent Diabetes mellitus Hypertension Cerebrovascular accident Father Hypertension Family history of elevated blood lipids, Onset Age: 89 Family history of cardiovascular disease Cerebrovascular accident Mother Family history of elevated blood lipids, Onset Age: 93 Family history of cardiovascular disease Diabetes mellitus Hypertension Cerebrovascular accident Social History Social History Smoking status: Never smoker Alcohol intake: current Drinks per week: 1 Alcohol use details: occasionnally Substance use: never Substance use type: does not use Do You Feel Safe in your Home?: Yes Lack of Transportation: No Lack of Food: Never True Current Housing: I Have Housing Concerned About Future Housing: No Difficulty Paying Gas/Electric Bills: No Difficulty Paying for Meds: No Currently Unemployed: No Education: Bachelor's Degree Difficulty w/ Childcare or Family Care: No Living arrangements: alone Occupation/Education: retired Gender identity (if verbalized by the patient): Male Spiritual care concerns: No Agree to blood products: Yes Meds Home Medications and Allergies Home Medications ?Medication ?Instructions ?Recorded ?Confirmed ?Type Glucosamine Chondroitin 1 cap PO DAILY 05/02/24 01/18/25 History saw palmetto 450 mg capsule 450 mg PO DAILY 05/02/24 01/18/25 History lisinopril 20 See Rx Instructions .Route 07/25/24 01/18/25 Rx mg-hydrochlorothiazide 25 mg tablet .COMPLEX #90 tabs levothyroxine 25 mcg tablet 25 mcg PO DAILY #90 tabs 08/30/24 01/18/25 Rx doxazosin 8 mg tablet See Rx Instructions .Route 09/13/24 01/18/25 Rx .COMPLEX #90 tabs rivaroxaban 20 mg tablet (Xarelto) See Rx Instructions .Route 09/13/24 01/18/25 Rx .COMPLEX #90 tabs fenofibrate micronized 134 mg See Rx Instructions .Route 09/28/24 01/18/25 Rx capsule .COMPLEX #90 caps triamcinolone acetonide 0.1 % See Rx Instructions .Route 10/03/24 01/18/25 Rx topical cream .COMPLEX #80 grams finasteride 5 mg tablet See Rx Instructions .Route 10/30/24 01/18/25 Rx .COMPLEX #90 tabs metformin 1,000 mg tablet 1,000 mg PO BID #180 tabs 12/12/24 01/18/25 Rx simvastatin 10 mg tablet 10 mg PO DAILY #90 tabs 12/12/24 01/18/25 Rx semaglutide 0.25 mg or 0.5 mg (2 0.5 mg (0.736 mL) subcut WEEKLY #3 12/19/24 01/18/25 Rx mg/3 mL) subcutaneous pen injector mL (Ozempic) metoprolol succinate 25 mg 25 mg PO DAILY #90 tabs 12/28/24 01/18/25 Rx tablet,extended release 24 hr gabapentin 300 mg capsule See Rx Instructions .Route 01/08/25 01/18/25 Rx .COMPLEX #90 caps Allergies Allergy/AdvReac Type Severity Reaction Status Date / Time No Known Drug Allergies Allergy Unknown Verified 01/18/25 00:04 Vital Signs Vital Signs - 24 hr 01/17/25 15:26 01/17/25 17:54 01/17/25 18:55 Temperature 97.9 F Pulse Rate 78 79 86 Respiratory Rate 18 18 18 Blood Pressure 204/104 H 173/71 H 187/110 H Pulse Oximetry 94 93 93 Oxygen Delivery Room Air 01/17/25 19:40 01/17/25 20:18 01/17/25 22:49 Temperature Pulse Rate 95 86 69 Respiratory Rate 17 17 Blood Pressure 189/95 H 197/85 H 156/94 H Pulse Oximetry 96 98 94 Oxygen Delivery 01/17/25 22:58 01/17/25 23:46 01/18/25 06:00 Temperature 98.1 F 97.5 F L Pulse Rate 65 74 63 Respiratory Rate 17 18 18 Blood Pressure 136/87 149/99 H Pulse Oximetry 96 96 96 Oxygen Delivery 01/18/25 08:07 Temperature Pulse Rate Respiratory Rate Blood Pressure Pulse Oximetry 91 Oxygen Delivery Room Air Results Labs 01/18/25 06:27 01/18/25 06:27 Labs: Abnormal lab results 01/17/25 01/17/25 01/18/25 Range/Units 15:44 23:14 06:27 WBC 11.0 H 11.9 H (4.5-10.0) K/mm3 Hgb 13.4 L (14.0-18.0) g/dL MCHC 31.7 L (32-36) g/dl Neut % (Auto) 85.8 H 82.1 H (45.5-73.1) % Lymph % (Auto) 9.7 L 10.4 L (18.3-44.2) % [place] # (Auto) 0.8 H (0.1-0.6) K/mm3 Abs Immat Gran (auto) 0.04 H (0.00-0.031) K/mm3 Absolute Neuts (auto) 9.4 H 9.8 H (1.3-6.7) K/mm3 PT 15.1 H (11.1-14.7) Seconds Carbon Dioxide 20 L (22-30) mmol/L Anion Gap 15 H 17 H (4-12) mmol/L BUN 24 H 26 H (9-20) mg/dL Estimated GFR 54 L 53 L (59 - ) Glucose 166 H 135 H (65-110) mg/dL AST 61 H (17-59) U/L ALT 60 H (6-50) U/L Alkaline Phosphatase 29 L 22 L (38-126) U/L Total Protein 9.0 H (6.3-8.2) g/dL Ur Specific [place] > 1.045 H (1.001-1.035) Urine Protein 4+ H (Negative) mg/dL Urine Ketones Trace H (Negative) mg/dL Diabetes panel 01/17/25 01/18/25 Range/Units 15:44 06:27 Sodium 139 137 (137-145) mmol/L Potassium 3.8 3.8 (3.4-5.0) mmol/L Chloride 98 100 (98-107) mmol/L Carbon Dioxide 26 20 L (22-30) mmol/L BUN 24 H 26 H (9-20) mg/dL Creatinine 1.29 1.30 (0.7-1.3) mg/dL Glucose 166 H 135 H (65-110) mg/dL Calcium 10.1 9.3 (8.4-10.2) mg/dL AST 61 H 40 (17-59) U/L ALT 60 H 42 (6-50) U/L Alkaline Phosphatase 29 L 22 L (38-126) U/L Total Protein 9.0 H 8.0 (6.3-8.2) g/dL Albumin 4.7 4.0 (3.5-5.1) g/dL Calcium panel 01/17/25 01/18/25 Range/Units 15:44 06:27 Calcium 10.1 9.3 (8.4-10.2) mg/dL Albumin 4.7 4.0 (3.5-5.1) g/dL Pituitary panel 01/17/25 01/18/25 Range/Units 15:44 06:27 Sodium 139 137 (137-145) mmol/L Potassium 3.8 3.8 (3.4-5.0) mmol/L Chloride 98 100 (98-107) mmol/L Carbon Dioxide 26 20 L (22-30) mmol/L BUN 24 H 26 H (9-20) mg/dL Creatinine 1.29 1.30 (0.7-1.3) mg/dL Glucose 166 H 135 H (65-110) mg/dL Calcium 10.1 9.3 (8.4-10.2) mg/dL Adrenal panel 01/17/25 01/18/25 Range/Units 15:44 06:27 Sodium 139 137 (137-145) mmol/L Potassium 3.8 3.8 (3.4-5.0) mmol/L Chloride 98 100 (98-107) mmol/L Carbon Dioxide 26 20 L (22-30) mmol/L BUN 24 H 26 H (9-20) mg/dL Creatinine 1.29 1.30 (0.7-1.3) mg/dL Glucose 166 H 135 H (65-110) mg/dL Calcium 10.1 9.3 (8.4-10.2) mg/dL Total Bilirubin 1.0 0.9 (0.2-1.3) mg/dL AST 61 H 40 (17-59) U/L ALT 60 H 42 (6-50) U/L Alkaline Phosphatase 29 L 22 L (38-126) U/L Total Protein 9.0 H 8.0 (6.3-8.2) g/dL Albumin 4.7 4.0 (3.5-5.1) g/dL All other labs normal.
[2025-01-18] MEDS: HYDROmorphone HCL INJ (*CRX) 2 MG/ML VIAL 1 MG IV PUSH (14:12)
[2025-01-18] MEDS: hydrALAZINE HCL 20 MG/ML VIAL 10 MG IV PUSH ×2 (14:59→16:36)
--- NOTE | 2025-01-18 15:21 | P.PNIM_ITS ---
Progress Note: A&P Assessment and Plan (1) SBO (small bowel obstruction): Code(s): K56.609 - Unspecified intestinal obstruction, unspecified as to partial versus complete obstruction Status: Acute Assessment and Plan: Patient tih previous history of laparotomy incision for bleeding after an attempted laparoscopic cholecystectomy over 20 years ago * CTAP: Ascending aortic aneurysm measuring up to 5.6 cm. The descending thoracic aorta is mildly dilated to 3.1 cm. Consider nonemergent but timely outpatient CT angiography of the chest and appropriate referral for monitoring/potential intervention. Mild esophagitis/gastritis. Periesophageal lymphadenopathy. Hepatomegaly with steatosis. Mid small bowel obstruction, transition point in the left lateral abdomen. Small volume ascites. Bladder wall thickening, likely secondary to chronic outlet obstruction from prostatomegaly. * Surgery consulted * NG tube to suction * Small bowel series: At 2 hours and 30 minutes, the contrast was still in the dilated small bowel. * Pain management * IV Fluids * holding Xarelto * PPI * Zosyn IV * Plan for exploratory laparotomy 01/18/2025 * Would recommend stopping semaglutide (2) Hypertension: Qualifiers: Hypertension type: primary hypertension Qualified Code(s): I10 - Essential (primary) hypertension Code(s): I10 - Essential (primary) hypertension Status: Acute Assessment and Plan: * NPO * Hypertensive * added Hydralazine IVP 20 mg for systolic >160 * Need to keep controlled due to AAA (3) Ascending aortic aneurysm: Code(s): I71.21 - Aneurysm of the ascending aorta, without rupture Status: Acute Assessment and Plan: * Ascending aortic aneurysm measuring up to 5.6 cm. The descending thoracic aorta is mildly dilated to 3.1 cm * Will need follow-up with vascular surgeon * Keep BP well controlled (4) Type 2 diabetes mellitus with diabetic nephropathy: Code(s): E11.21 - Type 2 diabetes mellitus with diabetic nephropathy Status: Acute Assessment and Plan: * Accu-Cheks a.c. HS * sliding scale insulin * hold oral diabetic medications * Holding metformin and semaglutide * encourage lifestyle modifications and weight loss * Optimize Dung inhibitors and statins. * Watch for hypoglycemia/hypoglycemic protocol ordered Plan Code status: Full code per patient DVT prophylaxis: Xarelto on hold for surgery Stress ulcer prophylaxis: Protonix 40 BID PT/OT notes: NA Disposition: Patient continues admission for small bowel obstruction plan for surgery later today for exploratory laparotomy. Discharge to home when medically stable Time Spent With Patient Time with patient: 15 - 25 minutes Subjective Date/time seen: 01/18/25 15:21 Interval history: Patient admitted for treatment of SBO and plan for exploratory laparotomy. 01/18/2025: Assumed Care Patient sitting on side of bed still with ABD pain and worsening distention, WBC 11.9 this am small bowel series 2 hours and 30 minutes, the contrast was still in the dilated small bowel. Surgery planned today. Review of Systems Review of Systems: All systems reviewed & are unremarkable except as noted in HPI and below Exam Narrative: * GENERAL: Alert and oriented x 3. No acute distress. * EYES: PERRLA. * HEENT: Moist mucous membranes. * LUNGS: Clear to auscultation bilaterally. No accessory muscle use. * CARDIOVASCULAR: Regular rate and rhythm. No murmur. No JVD. S1-S2 * ABDOMEN: ABD tenderness and distention * EXTREMITIES: 2+ edema BLE. Non-tender * SKIN: No rashes or lesions. Skin warm, dry. * NEUROLOGIC: No focal neurological deficits. CN II-XII grossly intact * PSYCHIATRIC: Appropriate mood and affect. Good judgement and insight. Objective Data Vital Signs Vital Signs: Vital Signs - 24 hr 01/17/25 15:26 01/17/25 17:54 01/17/25 18:55 Temperature 97.9 F Pulse Rate 78 79 86 Respiratory Rate 18 18 18 Blood Pressure 204/104 H 173/71 H 187/110 H Pulse Oximetry 94 93 93 Oxygen Delivery Room Air 01/17/25 19:40 01/17/25 20:18 01/17/25 22:49 Temperature Pulse Rate 95 86 69 Respiratory Rate 17 17 Blood Pressure 189/95 H 197/85 H 156/94 H Pulse Oximetry 96 98 94 Oxygen Delivery 01/17/25 22:58 01/17/25 23:46 01/18/25 06:00 Temperature 98.1 F 97.5 F L Pulse Rate 65 74 63 Respiratory Rate 17 18 18 Blood Pressure 136/87 149/99 H Pulse Oximetry 96 96 96 Oxygen Delivery 01/18/25 08:00 01/18/25 08:07 Temperature Pulse Rate 63 Respiratory Rate 18 Blood Pressure Pulse Oximetry 91 91 Oxygen Delivery Room Air Room Air Intake/Output Intake/Output: Intake & Output 01/15/25 01/16/25 01/17/25 01/18/25 23:59 23:59 23:59 23:59 Intake Total 1100 858.3 Output Total 150 250 Balance 950 608.3 Meds/Results Medications: Active Medications Generic Name Dose Route Start Last Admin Trade Name Freq PRN Reason Stop Dose Admin Doxazosin Mesylate 8 mg 01/18/25 09:00 01/18/25 10:00 Doxazosin Mesylate 4 Mg Tablet PO Not Given DAILY AUGUSTINE Finasteride 5 mg 01/18/25 09:00 01/18/25 10:00 Finasteride 5 Mg Tablet PO Not Given DAILY AUGUSTINE Gabapentin 300 mg 01/18/25 09:00 01/18/25 10:01 Gabapentin 300 Mg Capsule PO Not Given BID AUGUSTINE Hydralazine HCl 10 mg 01/17/25 22:23 01/18/25 14:59 Hydralazine Hcl 20 Mg/Ml Vial IV PUSH 10 mg Q8H PRN Administration Blood Pressure - High Hydromorphone HCl 1 mg 01/18/25 13:49 01/18/25 14:12 Hydromorphone Hcl Inj (*Crx) 2 Mg/Ml Vial IV PUSH 1 mg Q4HR PRN Administration Pain Rated 7-10 Piperacillin/Tazobactam/Dextrose 3.375 gm in 50 mls @ 100 mls/hr 01/17/25 02:00 01/18/25 14:13 Zosyn 3.375 Gm/Ns 50 Ml IVPB 100 mls/hr Q6H AUGUSTINE Administration Sodium Chloride 1,000 mls @ 100 mls/hr 01/17/25 21:20 01/18/25 05:33 Normal Saline Iv IV CONT 100 mls/hr .Q10H AUGUSTINE Administration Levothyroxine Sodium 25 mcg 01/18/25 06:30 01/18/25 05:34 Levothyroxine Sodium 25 Mcg Tablet PO Not Given DAILY@0630 [facility] [place] Metoprolol Succinate 25 mg 01/18/25 09:00 01/18/25 10:01 Metoprolol Succinate Ext Rel 25 Mg Tabcr PO Not Given DAILY [facility] Ondansetron HCl 4 mg 01/17/25 19:07 01/17/25 22:44 Ondansetron Inj 4 Mg/2 Ml Vial IV PUSH 4 mg Q4H PRN Administration Nausea Pantoprazole Sodium 40 mg 01/17/25 22:30 01/18/25 10:10 Pantoprazole Sodium Iv 40 Mg Vial IV PUSH 40 mg Q12HR AUGUSTINE Administration Prochlorperazine Edisylate 10 mg 01/17/25 21:18 Prochlorperazine Edisylate 10 Mg/2 Ml Vial IV PUSH Q6H PRN Nausea And Vomiting Rivaroxaban 20 mg 01/18/25 17:00 Rivaroxaban 20 Mg Tablet PO DAILY@1700 [facility] [place] Simvastatin 10 mg 01/18/25 09:00 01/18/25 10:01 Simvastatin 10 Mg Tablet PO Not Given DAILY [facility] Radiology Results: ITS Impressions Abdomen/Pelvis CT 01/17/25 18:07 IMPRESSION: Ascending aortic aneurysm measuring up to 5.6 cm. The descending thoracic aorta is mildly dilated to 3.1 cm. Consider nonemergent but timely outpatient CT angiography of the chest and appropriate referral for monitoring/potential int ervention. Mild esophagitis/gastritis. Periesophageal lymphadenopathy. Hepatomegaly with steatosis. Mid small bowel obstruction, transition point in the left lateral abdomen. Small volume ascites. Bladder wall thickening, likely secondary to chronic outlet obstruction from prostatomegaly. Abdomen X-Ray 01/17/25 21:15 IMPRESSION: NG tube, in good position. Subsegmental left basilar atelect asis/consolidation, unchanged. Unchanged dilated small bowel loops. Small Bowel X-Ray 01/18/25 15:02 IMPRESSION: 1. Small bowel obstruction. Labs Labs: Laboratory Results - last 24 hr 01/17/25 01/17/25 01/17/25 15:44 18:27 23:14 WBC 11.0 H RBC 5.43 Hgb 15.1 Hct 46.0 MCV 84.7 MCH 27.8 MCHC 32.8 RDW 13.4 Plt Count 228 MPV 9.7 Immature Gran % (Auto) 0.4 Neut % (Auto) 85.8 H Lymph % (Auto) 9.7 L [place] % (Auto) 3.7 Eos % (Auto) 0.2 Baso % (Auto) 0.2 Lymph # (Auto) 1.07 [place] # (Auto) 0.4 Eos # (Auto) 0.0 Baso # (Auto) 0.0 Abs Immat Gran (auto) 0.04 H Absolute Neuts (auto) 9.4 H Absolute Nucleated RBC 0.000 Nucleated RBC % 0.0 PT INR APTT Sodium 139 Potassium 3.8 Chloride 98 Carbon Dioxide 26 Anion Gap 15 H BUN 24 H Creatinine 1.29 Estim Creat Clear Calc 53 Estimated GFR 54 L Glucose 166 H Lactic Acid 1.7 Calcium 10.1 Total Bilirubin 1.0 AST 61 H ALT 60 H Alkaline Phosphatase 29 L Total Protein 9.0 H Albumin 4.7 Lipase 110 Urine Color Yellow Urine Appearance Clear Urine pH 5.0 Ur Specific [place] > 1.045 H Urine Protein 4+ H Urine Glucose (UA) Negative Urine Ketones Trace H Ur Blood (Man) Negative Urine Nitrate Negative Urine Bilirubin Negative Urine Urobilinogen 1.0 Leukocyte Esterase Rfl Negative Urine RBC 0-2 Urine WBC 0-5 Ur Squamous Epith Cells None seen Urine Bacteria None seen Urine Casts 0-2 Influenza A (RT-PCR) Negative Influenza B (RT-PCR) Negative SARS-CoV-2 RNA (RT-PCR) Negative Blood Type Antibody Screen 01/18/25 06:27 WBC 11.9 H RBC 4.83 Hgb 13.4 L Hct 42.3 MCV 87.6 MCH 27.7 MCHC 31.7 L RDW 13.6 Plt Count 205 MPV 9.5 Immature Gran % (Auto) 0.3 Neut % (Auto) 82.1 H Lymph % (Auto) 10.4 L [place] % (Auto) 6.9 Eos % (Auto) 0.0 Baso % (Auto) 0.3 Lymph # (Auto) 1.24 [place] # (Auto) 0.8 H Eos # (Auto) 0.0 Baso # (Auto) 0.0 Abs Immat Gran (auto) 0.03 Absolute Neuts (auto) 9.8 H Absolute Nucleated RBC 0.000 Nucleated RBC % 0.0 PT 15.1 H INR 1.1 APTT 25.6 Sodium 137 Potassium 3.8 Chloride 100 Carbon Dioxide 20 L Anion Gap 17 H BUN 26 H Creatinine 1.30 Estim Creat Clear Calc 53 Estimated GFR 53 L Glucose 135 H Lactic Acid 2.0 Calcium 9.3 Total Bilirubin 0.9 AST 40 ALT 42 Alkaline Phosphatase 22 L Total Protein 8.0 Albumin 4.0 Lipase Urine Color Urine Appearance Urine pH Ur Specific [place] Urine Protein Urine Glucose (UA) Urine Ketones Ur Blood (Man) Urine Nitrate Urine Bilirubin Urine Urobilinogen Leukocyte Esterase Rfl Urine RBC Urine WBC Ur Squamous Epith Cells Urine Bacteria Urine Casts Influenza A (RT-PCR) Influenza B (RT-PCR) SARS-CoV-2 RNA (RT-PCR) Blood Type O Positive Antibody Screen Negative Quality VTE Prophylaxis VTE prophylaxis: mechanical ordered and pharmacologic ordered -Patient's previous records reviewed on admission -ER notes reviewed in detail on admission -discussed all findings and current treatment plan with patient/Family/POA -Consultations reviewed for recommendations -Patient's disposition for safe discharge discussed with bottle caser Dictation performed by [employer] direct speech recognition software, therefore roof truss detailer variants and typographical errors may occur. Hospitalist MIPS Advance Care Plan I have confirmed that the patient's Advanced Care Plan is present, code status is documented, or surrogate decision maker is listed in patient medical record.: Yes Medication Reconciliation I have utilized all available resources to obtain, update and review the patients current medications (includes all prescriptions, OTC, herbals, cannabis, and nutritional supplements).: Yes The patient is not eligible for med reconciliation; the patient is in a emergent medical situation where delaying treatment would jeopardize the patients health.: No
--- NOTE | 2025-01-18 16:42 | PC.NURSE ---
Pt to surgery via bed.
[2025-01-18 16:58] LABS: Glucose Point of Care 180 mg/dl (65-105)
[2025-01-18] MEDS: LACTATED RINGERS 1,000 ML 30 ML IV CONT ×2 (17:00→19:10)
--- NOTE | 2025-01-18 17:01 | WPDHPUPDATE1 ---
History and Physical Update Update Date/Time: 01/18/25 17:01 History and Physical has been reviewed, including an updated exam of the patient. There are NO changes in the patient's condition. Risks, benefits, and alternatives have been discussed and questions answered. Patient agrees to proceed with procedure.
--- NOTE | 2025-01-18 17:22 | WPDANESEPPF ---
Anes - Initial Pre Proc Eval Procedure: Operation Date: 01/18/25 16:30 Proposed Procedures p Exploratory Laparotomy, Possible Bowel Resection - Xavi Gonsales MD Date/Time: 01/18/25 17:22 Surgeon: Som Colmenares MD Pre Op Diagnosis: SBO Patient Data Age: 79 Gender: M Height: 1.7 m Weight: 133 kg Last Vital Signs Temp 36.3 C L 01/18/25 14:00 Pulse 62 01/18/25 14:00 Resp 20 01/18/25 14:00 BP 184/91 H 01/18/25 16:15 Pulse Ox 99 01/18/25 14:00 O2 Del Method Room Air 01/18/25 08:07 Allergies Allergy/AdvReac Type Severity Reaction Status Date / Time No Known Drug Allergies Allergy Unknown Verified 01/18/25 17:07 Home Medications ?Medication ?Instructions ?Recorded ?Confirmed ?Type Glucosamine Chondroitin 1 cap PO DAILY 05/02/24 01/18/25 History saw palmetto 450 mg capsule 450 mg PO DAILY 05/02/24 01/18/25 History lisinopril 20 See Rx Instructions .Route 07/25/24 01/18/25 Rx mg-hydrochlorothiazide 25 mg tablet .COMPLEX #90 tabs levothyroxine 25 mcg tablet 25 mcg PO DAILY #90 tabs 08/30/24 01/18/25 Rx doxazosin 8 mg tablet See Rx Instructions .Route 09/13/24 01/18/25 Rx .COMPLEX #90 tabs rivaroxaban 20 mg tablet (Xarelto) See Rx Instructions .Route 09/13/24 01/18/25 Rx .COMPLEX #90 tabs fenofibrate micronized 134 mg See Rx Instructions .Route 09/28/24 01/18/25 Rx capsule .COMPLEX #90 caps triamcinolone acetonide 0.1 % See Rx Instructions .Route 10/03/24 01/18/25 Rx topical cream .COMPLEX #80 grams finasteride 5 mg tablet See Rx Instructions .Route 10/30/24 01/18/25 Rx .COMPLEX #90 tabs metformin 1,000 mg tablet 1,000 mg PO BID #180 tabs 12/12/24 01/18/25 Rx simvastatin 10 mg tablet 10 mg PO DAILY #90 tabs 12/12/24 01/18/25 Rx semaglutide 0.25 mg or 0.5 mg (2 0.5 mg (0.736 mL) subcut WEEKLY #3 12/19/24 01/18/25 Rx mg/3 mL) subcutaneous pen injector mL (Ozempic) metoprolol succinate 25 mg 25 mg PO DAILY #90 tabs 12/28/24 01/18/25 Rx tablet,extended release 24 hr gabapentin 300 mg capsule See Rx Instructions .Route 01/08/25 01/18/25 Rx .COMPLEX #90 caps Laboratory Tests 01/17/25 01/17/25 01/18/25 18:27 23:14 06:27 WBC 11.9 H K/mm3 (4.5-10.0) RBC 4.83 M/mm3 (4.6-6.20) Hgb 13.4 L g/dL (14.0-18.0) Hct 42.3 % (42.0-52.0) MCV 87.6 fl (80-100) MCH 27.7 pg (26-34) MCHC 31.7 L g/dl (32-36) RDW 13.6 % (11.5-14.5) Plt Count 205 k/mm3 (150-375) MPV 9.5 fl (7.4-10.4) Immature Gran % (Auto) 0.3 % (0-0.5) Neut % (Auto) 82.1 H % (45.5-73.1) Lymph % (Auto) 10.4 L % (18.3-44.2) [place] % (Auto) 6.9 % (2.6-8.5) Eos % (Auto) 0.0 % (0-4.4) Baso % (Auto) 0.3 % (0.2-1.2) Lymph # (Auto) 1.24 K/mm3 (0.9-3.2) [place] # (Auto) 0.8 H K/mm3 (0.1-0.6) Eos # (Auto) 0.0 K/mm3 (0-0.3) Baso # (Auto) 0.0 K/mm3 (0.0-0.1) Abs Immat Gran (auto) 0.03 K/mm3 (0.00-0.031) Absolute Neuts (auto) 9.8 H K/mm3 (1.3-6.7) Absolute Nucleated RBC 0.000 K/mm3 (0.0-0.012) Nucleated RBC % 0.0 % (0.0-0.2) PT 15.1 H Seconds (11.1-14.7) INR 1.1 APTT 25.6 Seconds (22.3-36.8) Sodium 137 mmol/L (137-145) Potassium 3.8 mmol/L (3.4-5.0) Chloride 100 mmol/L (98-107) Carbon Dioxide 20 L mmol/L (22-30) Anion Gap 17 H mmol/L (4-12) BUN 26 H mg/dL (9-20) Creatinine 1.30 mg/dL (0.7-1.3) Estim Creat Clear Calc 53 ml/min Estimated GFR 53 L (59 - ) Glucose 135 H mg/dL (65-110) POC Capillary Glucose Lactic Acid 1.7 mmol/L 2.0 mmol/L (0.7-2.0) (0.7-2.0) Calcium 9.3 mg/dL (8.4-10.2) Total Bilirubin 0.9 mg/dL (0.2-1.3) AST 40 U/L (17-59) ALT 42 U/L (6-50) Alkaline Phosphatase 22 L U/L (38-126) Total Protein 8.0 g/dL (6.3-8.2) Albumin 4.0 g/dL (3.5-5.1) Urine Color Yellow (Yellow) Urine Appearance Clear (Clear) Urine pH 5.0 (5.0-9.0) Ur Specific [place] > 1.045 H (1.001-1.035) Urine Protein 4+ H mg/dL (Negative) Urine Glucose (UA) Negative mg/dL (Negative) Urine Ketones Trace H mg/dL (Negative) Ur Blood (Man) Negative (Negative) Urine Nitrate Negative (Negative) Urine Bilirubin Negative (Negative) Urine Urobilinogen 1.0 mg/dL (<2.0) Leukocyte Esterase Rfl Negative KULWINDER/UL (Negative) Urine RBC 0-2 /hpf (0-2) Urine WBC 0-5 /hpf (0-3) Ur Squamous Epith Cells None seen /hpf (Few) Urine Bacteria None seen /hpf Urine Casts 0-2 Blood Type O Positive Antibody Screen Negative 01/18/25 16:55 WBC RBC Hgb Hct MCV MCH MCHC RDW Plt Count MPV Immature Gran % (Auto) Neut % (Auto) Lymph % (Auto) [place] % (Auto) Eos % (Auto) Baso % (Auto) Lymph # (Auto) [place] # (Auto) Eos # (Auto) Baso # (Auto) Abs Immat Gran (auto) Absolute Neuts (auto) Absolute Nucleated RBC Nucleated RBC % PT INR APTT Sodium Potassium Chloride Carbon Dioxide Anion Gap BUN Creatinine Estim Creat Clear Calc Estimated GFR Glucose POC Capillary Glucose 180 H mg/dl (65-105) Lactic Acid Calcium Total Bilirubin AST ALT Alkaline Phosphatase Total Protein Albumin Urine Color Urine Appearance Urine pH Ur Specific [place] Urine Protein Urine Glucose (UA) Urine Ketones Ur Blood (Man) Urine Nitrate Urine Bilirubin Urine Urobilinogen Leukocyte Esterase Rfl Urine RBC Urine WBC Ur Squamous Epith Cells Urine Bacteria Urine Casts Blood Type Antibody Screen Patient hx anesthesia problems: none Family hx anesthesia problems: none Results Review: All pre-operative results and documents have been reviewed as part of the pre-operative evaluation. [facility] Past Medical History Medical History Anticoagulant long-term use Hx of deep venous thrombosis Intermittent diarrhea Lower GI bleed Colon cancer screening History of mumps History of measles History of chicken pox Spinal stenosis Arm fracture (1958) Normal colonoscopy (06/29/12) 07/19/2012 Surgical History Surgical History History of tonsillectomy (~194) Hx of cholecystectomy (1991) H/O nasal septoplasty (1992) Family History Family History Grandparent Diabetes mellitus Hypertension Cerebrovascular accident Father Hypertension Family history of elevated blood lipids, Onset Age: 89 Family history of cardiovascular disease Cerebrovascular accident Mother Family history of elevated blood lipids, Onset Age: 93 Family history of cardiovascular disease Diabetes mellitus Hypertension Cerebrovascular accident Social History Social History Smoking status: Never smoker Alcohol intake: current Drinks per week: 1 Alcohol use details: occasionnally Substance use: never Substance use type: does not use Do You Feel Safe in your Home?: Yes Lack of Transportation: No Lack of Food: Never True Current Housing: I Have Housing Concerned About Future Housing: No Difficulty Paying Gas/Electric Bills: No Difficulty Paying for Meds: No Currently Unemployed: No Education: Bachelor's Degree Difficulty w/ Childcare or Family Care: No Living arrangements: alone Occupation/Education: retired Gender identity (if verbalized by the patient): Male Spiritual care concerns: No Agree to blood products: Yes Anes - Eval Final PreProcedure Day of Procedure 01/18/25 17:22 Patient weight: morbidly obese Heart: regular rate and rhythm Lungs: decreased breath sounds Airway: Mallampati scale class II Neurological: alert and oriented Last oral intake: >/= 8 hours ASA classification: IV Emergent: yes Anesthetic plan: proceed Anesthesia type and monitoring: general ETT and standard monitoring Results Review: All pre-operative results and documents have been reviewed as part of the pre-operative evaluation. Informed Consent: The patient's anesthetic plan and its attendant risks and benefits were discussed with the patient/family/POA. Questions were solicited and answers provided to the satisfaction of the patient/family/POA.
[2025-01-18] MEDS: BUPivacaine HCL 0.5% 10 ML AMP 20 ML INFILTRATE (17:53)
[2025-01-18] MEDS: LIDO 1%/EPINEPHRINE 1:100,000 20 ML VIAL INFILTRATE (17:54)
--- NOTE | 2025-01-18 19:24 | P.OP_ITS ---
Procedure Note - Detailed Date of Procedure 01/18/25 Pre-op Diagnosis High-grade small-bowel obstruction secondary to abdominal adhesions Post-op Diagnosis Same Procedure Performed Exploratory laparotomy, abdominal adhesiolysis. Surgeon Xavi Gonsales MD Anesthesia General Indications Patient is an 79-year-old gentleman who presented to the emergency room 2 day history of worsening abdominal pain, abdominal distention, and nausea vomiting. He had a prior laparoscopic cholecystectomy concerned to open laparotomy in . No other abdominal surgery. No other admissions to the hospital for small-bowel obstructions. Small-bowel series revealed no contrast to the colon after 2hours. His abdominal exam was consistent with acute surgical abdomen and a high-grade small-bowel obstruction on imaging. He presents now for emergent exploratory laparotomy and possible bowel resection. Findings The patient had a single adhesive band in the left mid abdomen causing a a high- grade mid jejunal small bowel obstruction. All the bowel was completely viable. Perforation was noted. The patient also had omental adhesions in the upper abdomen but these were not causing the point of obstruction. Description of Procedure After informed consent was obtained patient brought to the operating room placed supine position and general endotracheal anesthesia was administered. A nasogastric tube was already in place. A Mckinney catheter was placed decompress the bladder. The abdomen was then prepped draped usual sterile fashion. A time-out was then performed correctly identifying the patient as well as procedure to be performed. He was already on scheduled IV antibiotics. I then started making a midline incision starting in the mid epigastric region and extending all the way down to just below the umbilicus. The upper portion of the incision went through his old scar. Dissection was carried down through the subcutaneous tissue electrocautery I encountered a small 1cm incisional hernia in the mid epigastric region. Was able to dissect down through this area and divide the fascia at the point of the defect and extended inferiorly enough that I could find the peritoneum and then very carefully opened the peritoneum with sharp scissors without injuring any the underlying bowel. Then placed my hand into the abdomen and there were no adhesions bowel or omentum to the anterior abdominal wall from the mid epigastric region all the way down to the lower portion of the abdomen. I then opened the fascia with electrocautery for the whole length of the skin incision. There was some adhesions of the omentum to the upper portion of the incision as well as the falciform ligament. These were then divided with the LigaSure it energy device to achieve hemostasis. Once this was done I was then able to feel all the way underneath the undersurface of this area and there were no further adhesions. I then began to viscera rate the small bowel and easily found a single adhesion the mid lateral left abdomen causing the transition point and acute angulation of the mid jejunum. This adhesive band was divided with electrocautery freeing the point of obstruction. All the small bowel was completely viable without evidence of any ischemia or necrosis. There is no perforation of the small bowel. I then ran the small bowel from the ligament Treitz all the way distally and there were no for other areas of small-bowel obstruction. The point of obstruction on small-bowel did dilate and was not stenotic. There was a small jejunal diverticulum just distal to the point of constriction which was completely intact without evidence of perforation. I then tried to milk back some of the small bowel contents proximally into the stomach and then have a aspirated with a nasogastric tube. Also milk some of the small bowel contents and air distally into the distal small bowel and ileum. This decompressed the small bowel enough so that I could placed small bowel back into the abdomen. I then proceeded to close the fascia utilizing a looped #1 PDS suture starting at each end of the incision and then running towards the middle where the 2 sutures were then tied together above the umbilicus. The fascia closed easily without any tension. I then irrigated out the subcutaneous tissues sterile saline solution hemostasis was good. I then injected 60cc of 1% lidocaine mixed with 0.5% Marcaine in the subcutaneous tissues around the incision. I then closed the subcutaneous tissue utilizing interrupted 3-0 Vicryl sutures. The skin edges were then approximated utilizing skin danilo. The patient tolerated the procedure well no complications. All sponges, needles, and instrument counts were correct at the end procedure. EBL was _50__cc. The patient was awakened and taken to recovery in stable and satisfactory condition. Implants None Estimated Blood Loss 50 Urine Output 150 Drains No Packing No Pathology None sent Complications No immediate complications Condition Stable Disposition PACU [facility] Billing Surgery - Charge Forward: Surgery Billing
[2025-01-18 19:44] LABS: Glucose Point of Care 178 mg/dl (65-105)
[2025-01-18] MEDS: HYDROmorphone HCL INJ (*CRX) 1 MG/ML SYR 0.25 MG IV PUSH (20:06)
[2025-01-18] MEDS: MAG HYDROX/AL HYDROX/SIMETH 30 ML UDC PO (20:57)
[2025-01-18] MEDS: IBUPROFEN IV 800 MG/200 ML 800 MG/200 ML BAG 400 MG IVPB (20:57)
[2025-01-18 22:47] LABS: Glucose Point of Care 174 mg/dl (65-105)
[2025-01-18] MEDS: METOCLOPRAMIDE HCL INJ 10 MG/2 ML VIAL IV PUSH (23:10)
[2025-01-19] VITALS (12 sets, daily range): BP systolic 145–191; BP diastolic 73–102; PULSE 71–107; RESP 16–20; TEMP 36.2–37.7; O2SAT 90–94
[2025-01-19] MEDS: SODIUM CHLORIDE 0.9% IV 1,000 ML 125 ML IV CONT (00:27)
[2025-01-19] MEDS: IBUPROFEN IV 800 MG/200 ML 800 MG/200 ML BAG 400 MG IVPB ×4 (00:27→16:55)
[2025-01-19] MEDS: HYDROmorphone HCL INJ (*CRX) 2 MG/ML VIAL 1 MG IV PUSH (01:07)
[2025-01-19] MEDS: PIPERACILLN/TAZ 3.375GM/NS50ML 3.375 GM/50 ML BAG IVPB ×4 (01:20→21:56)
--- NOTE | 2025-01-19 03:10 | PC.NURSE ---
Endoscopy Specialty Technician called to room by sitter. Patient has pulled NG at this time.
[2025-01-19] MEDS: METOCLOPRAMIDE HCL INJ 10 MG/2 ML VIAL IV PUSH ×4 (05:53→23:16)
[2025-01-19 06:55] LABS: Basophils Percent Auto 0.1 % (0.2-1.2); Hematocrit 45.9 % (42.0-52.0); Hemoglobin 14.3 g/dL (14.0-18.0); Immature Granulocyte Absolute 0.05 K/mm3 (0.00-0.031); Immature Granulocyte Percent A 0.3 % (0-0.5); Lymphocytes Absolute Auto 1.21 K/mm3 (0.9-3.2); Lymphocytes Percent Auto 8.4 % (18.3-44.2); Mean Corpuscular HGB Conc 31.2 g/dl (32-36); Mean Corpuscular Volume 86.6 fl (80-100); Mean Platelet Volume 9.6 fl (7.4-10.4); Monocytes Absolute Auto 1.2 K/mm3 (0.1-0.6); Monocytes Percent Auto 8.3 % (2.6-8.5); Neutrophils Absolute Auto 11.9 K/mm3 (1.3-6.7); Neutrophils Percent Auto 82.9 % (45.5-73.1); Platelet Count Result 234 k/mm3 (150-375); White Blood Count 14.4 K/mm3 (4.5-10.0)
[2025-01-19 07:00] LABS: Alanine Aminotransferase 37 U/L (6-50); Alkaline Phosphatase 25 U/L (38-126); Anion Gap 11 mmol/L (4-12); Aspartate Amino Transferase 34 U/L (17-59); Bilirubin,Total 0.9 mg/dL (0.2-1.3); Blood Urea Nitrogen 31 mg/dL (9-20); Calcium 9.4 mg/dL (8.4-10.2); Carbon Dioxide 29 mmol/L (22-30); Chloride 102 mmol/L (98-107); Estimated CRCL calculation 42 ml/min; Estimated Glomerular Filt Rate 40; Glucose 143 mg/dL (65-110); Potassium 3.5 mmol/L (3.4-5.0); Sodium 142 mmol/L (137-145)
[2025-01-19 07:56] LABS: Glucose Point of Care 139 mg/dl (65-105)
[2025-01-19] MEDS: PANTOPRAZOLE SODIUM IV 40 MG VIAL IV PUSH ×2 (08:42→21:56)
[2025-01-19] MEDS: hydrALAZINE HCL 20 MG/ML VIAL IV PUSH ×2 (08:43→16:55)
--- NOTE | 2025-01-19 11:19 | P.PNGS_ITS ---
Progress Note: A&P Assessment and Plan (1) SBO (small bowel obstruction): Code(s): K56.609 - Unspecified intestinal obstruction, unspecified as to partial versus complete obstruction Status: Acute Assessment and Plan: * Postop day 1 following exploratory laparotomy with lysis of adhesions. Will await return of bowel function. It would not be surprising for patient to have a postoperative ileus. Will continue NG tube decompression, bowel rest, and IV fluids for now. Will adjust his IV fluids to NS with 20 meq KCL at 125 mL/hr. Creatinine up slightly today and urine output slightly low overnight. Will give a one time 500 cc fluid bolus. Repeat labs tomorrow. Mckinney catheter removed this morning. (2) Type 2 diabetes mellitus with diabetic nephropathy: Code(s): E11.21 - Type 2 diabetes mellitus with diabetic nephropathy Status: Acute (3) Anticoagulant long-term use: Code(s): Z79.01 - residential (current) use of anticoagulants Status: Acute Assessment and Plan: * Continue to hold Xarelto for now. Will start prophylactic Lovenox. (4) Hx of deep venous thrombosis: Code(s): Z86.718 - Personal history of other venous thrombosis and embolism Status: Acute (5) Aortic stenosis, mild: Code(s): I35.0 - Nonrheumatic aortic (valve) stenosis Status: Acute (6) Hypertension: Qualifiers: Hypertension type: primary hypertension Qualified Code(s): I10 - Essential (primary) hypertension Code(s): I10 - Essential (primary) hypertension Status: Acute (7) Chronic kidney disease, stage 3 (moderate): Code(s): N18.3 - Chronic kidney disease, stage 3 (moderate) Status: Acute (8) Morbid obesity with body mass index (BMI) of 40.0 or higher: Code(s): E66.01 - Morbid (severe) obesity due to excess calories Status: Acute (9) Ascending aortic aneurysm: Code(s): I71.21 - Aneurysm of the ascending aorta, without rupture Status: Acute Assessment and Plan: * Will need a vascular referral as an outpatient. Plan I have discussed the patient's case and plan of care with Dr. Gonsales. Subjective Subjective Date/Time Seen: 01/19/25 11:19 Post Op day: 1 (ex lap, adhesiolysis) Patient reports: feels better, voiding w/o difficulty (Mckinney removed this am and voided x 1 this morning), flatus and no bowel movement Interval history: Patient denies abdominal pain. He has a sitter and his son at the bedside. He had confusion overnight and pulled his NG tube out to ice. They have replaced his NG tube. Exam Const: General: comfortable and no acute distress Orientation/consciousness: patient oriented x3 GI: Inspection: distended and incision (gauze dressing dry and intact) GI Palp: Yes Soft to palpation, Yes Tenderness to palpation present (GI) (mild diffuse tenderness), No Guarding due to palpation present (GI) and No Rebound tenderness present Auscultation: Hypoactive bowel sounds present Objective Data Vital Signs Vital Signs: Vital Signs - 24 hr 01/18/25 14:00 01/18/25 16:15 01/18/25 19:10 Temperature 97.3 F L 98.3 F Pulse Rate 62 66 Respiratory Rate 20 12 Blood Pressure 190/90 H 184/91 H 102/47 L Pulse Oximetry 99 93 Oxygen Delivery Simple Face Mask Oxygen Flow Rate 8 01/18/25 19:25 01/18/25 19:30 01/18/25 19:45 Temperature Pulse Rate 73 72 79 Respiratory Rate 18 17 16 Blood Pressure 104/43 L 111/52 L 143/65 H Pulse Oximetry 93 91 95 Oxygen Delivery Simple Face Mask Simple Face Mask Simple Face Mask Oxygen Flow Rate 8 8 8 01/18/25 19:50 01/18/25 20:00 01/18/25 20:15 Temperature Pulse Rate 89 90 Respiratory Rate 17 18 Blood Pressure 153/65 H 141/66 H Pulse Oximetry 97 94 92 Oxygen Delivery Room Air Nasal Cannula Nasal Cannula Oxygen Flow Rate 4 4 01/18/25 20:40 01/18/25 20:55 01/18/25 23:00 Temperature 97.2 F L 97.3 F L 97.0 F L Pulse Rate 64 107 H 98 Respiratory Rate 16 18 18 Blood Pressure 153/71 H 158/80 H 167/80 H Pulse Oximetry 93 94 97 Oxygen Delivery Oxygen Flow Rate 01/19/25 03:42 01/19/25 08:14 01/19/25 09:13 Temperature 97.1 F L 97.9 F Pulse Rate 71 73 Respiratory Rate 16 18 Blood Pressure 154/78 H 174/73 H 162/75 H Pulse Oximetry 91 90 Oxygen Delivery Oxygen Flow Rate Intake/Output Intake/Output: Intake & Output 01/16/25 01/17/25 01/18/25 01/19/25 23:59 23:59 23:59 23:59 Intake Total 1100 2458.3 450 Output Total 150 400 500 Balance 950 2058.3 -50 Meds/Results Medications: Active Medications Generic Name Dose Route Start Last Admin Trade Name Freq PRN Reason Stop Dose Admin Al Hydrox/Mg Hydrox/Simethicone 30 ml 01/18/25 19:20 01/19/25 06:46 Mag Hydrox/Al Hydrox/Simeth 30 Ml Udc PO Not Given Q8HR [facility] Dextrose 12.5 gm 01/18/25 15:51 Dextrose 50% 25 Gm/50 Ml Syringe IV PUSH PRN PRN Hypoglycemia Protocol Glucagon 1 mg 01/18/25 15:51 Glucagon For Inj 1 Mg Vial IM PRN PRN Hypoglycemia Protocol Glucose 15 gm 01/18/25 15:51 Glucose Oral Gel 15 Gm Of Glucse In 37.5 Gm Tube PO PRN PRN Hypoglycemia Protocol Hydralazine HCl 20 mg 01/18/25 15:31 01/19/25 08:43 Hydralazine Hcl 20 Mg/Ml Vial IV PUSH 20 mg Q8H PRN Administration Blood Pressure - High Hydromorphone HCl 1 mg 01/18/25 13:49 01/19/25 01:07 Hydromorphone Hcl Inj (*Crx) 2 Mg/Ml Vial IV PUSH 1 mg Q4HR PRN Administration Pain Rated 7-10 Hydromorphone HCl 0.25 mg 01/18/25 17:24 01/18/25 20:06 Hydromorphone Hcl Inj (*Crx) 1 Mg/Ml Syr IV PUSH 0.25 mg Q5M PRN Administration Pain Hydromorphone HCl 0.5 mg 01/18/25 19:13 Hydromorphone Hcl Inj (*Crx) 1 Mg/Ml Syr IV PUSH Q3H PRN Pain Rated 4-6 Piperacillin/Tazobactam/Dextrose 3.375 gm in 50 mls @ 100 mls/hr 01/17/25 02:00 01/19/25 08:42 Zosyn 3.375 Gm/Ns 50 Ml IVPB 100 mls/hr Q6H [facility] Administration Sodium Chloride 1,000 mls @ 125 mls/hr 01/17/25 21:20 01/19/25 00:27 Normal Saline Iv IV CONT 125 mls/hr .Q8H [facility] Administration Dextrose 1,000 mls @ 100 mls/hr 01/18/25 15:51 Dextrose 5% 1,000 Ml IVPB PRN PRN Hypoglycemia Protocol Lactated Ringer's 1,000 mls @ 30 mls/hr 01/18/25 17:25 01/18/25 19:10 Lr - Lactated Ringers Iv IV CONT Infused .Q24H [facility] Infusion Lactated Ringer's 1,000 mls @ 30 mls/hr 01/18/25 17:25 01/18/25 20:26 Lr - Lactated Ringers Iv IV CONT Infused .Q24H [facility] Infusion Ibuprofen 800 mg in 200 mls @ 400 mls/hr 01/18/25 19:15 01/19/25 06:22 Caldolor 800 Mg/200 Ml IVPB Infused Q6HR [facility] Infusion Insulin Aspart 2 - 5 units 01/18/25 17:00 01/19/25 08:41 Insulin Aspart (*Bkc) 100 Units/Ml SUB-Q Not Given TIDWM [facility] Protocol Metoclopramide HCl 10 mg 01/19/25 00:00 01/19/25 05:53 Metoclopramide Hcl Inj 10 Mg/2 Ml Vial IV PUSH 10 mg Q6HR [facility] Administration Metoprolol Tartrate 5 mg 01/18/25 19:11 Metoprolol Tartrate Inj 5 Mg/5 Ml Vial IV PUSH Q4H PRN hypertension SBP > 170 Ondansetron HCl 4 mg 01/17/25 19:07 01/17/25 22:44 Ondansetron Inj 4 Mg/2 Ml Vial IV PUSH 4 mg Q4H PRN Administration Nausea Ondansetron HCl 4 mg 01/18/25 17:24 Ondansetron Inj 4 Mg/2 Ml Vial IV PUSH ONCE PRN Nausea Pantoprazole Sodium 40 mg 01/17/25 22:30 01/19/25 08:42 Pantoprazole Sodium Iv 40 Mg Vial IV PUSH 40 mg Q12HR [facility] Administration Rivaroxaban 20 mg 01/18/25 17:00 Rivaroxaban 20 Mg Tablet PO DAILY@1700 [facility] Radiology Results: ITS Impressions Abdomen/Pelvis CT 01/17/25 18:07 IMPRESSION: Ascending aortic aneurysm measuring up to 5.6 cm. The descending thoracic aorta is mildly dilated to 3.1 cm. Consider nonemergent but timely outpatient CT angiography of the chest and appropriate referral for monitoring/potential intervention. Mild esophagitis/gastritis. Periesophageal lymphadenopathy. Hepatomegaly with steatosis. Mid small bowel obstruction, transition point in the left lateral abdomen. Small volume ascites. Bladder wall thickening, likely secondary to chronic outlet obstruction from prostatomegaly. Small Bowel X-Ray 01/18/25 15:02 IMPRESSION: 1. Small bowel obstruction. Abdomen X-Ray 01/19/25 06:23 IMPRESSION: 1: NG tube tip in the stomach. Labs Labs: Laboratory Results - last 24 hr 01/18/25 01/18/25 01/18/25 16:55 19:42 22:39 WBC RBC Hgb Hct MCV MCH MCHC RDW Plt Count MPV Immature Gran % (Auto) Neut % (Auto) Lymph % (Auto) [place] % (Auto) Eos % (Auto) Baso % (Auto) Lymph # (Auto) [place] # (Auto) Eos # (Auto) Baso # (Auto) Abs Immat Gran (auto) Absolute Neuts (auto) Absolute Nucleated RBC Nucleated RBC % Sodium Potassium Chloride Carbon Dioxide Anion Gap BUN Creatinine Estim Creat Clear Calc Estimated GFR Glucose POC Capillary Glucose 180 H 178 H 174 H Calcium Total Bilirubin AST ALT Alkaline Phosphatase Total Protein Albumin 01/19/25 01/19/25 06:24 07:46 WBC 14.4 H RBC 5.30 Hgb 14.3 Hct 45.9 MCV 86.6 MCH 27.0 MCHC 31.2 L RDW 14.0 Plt Count 234 MPV 9.6 Immature Gran % (Auto) 0.3 Neut % (Auto) 82.9 H Lymph % (Auto) 8.4 L [place] % (Auto) 8.3 Eos % (Auto) 0.0 Baso % (Auto) 0.1 L Lymph # (Auto) 1.21 [place] # (Auto) 1.2 H Eos # (Auto) 0.0 Baso # (Auto) 0.0 Abs Immat Gran (auto) 0.05 H Absolute Neuts (auto) 11.9 H Absolute Nucleated RBC 0.000 Nucleated RBC % 0.0 Sodium 142 Potassium 3.5 Chloride 102 Carbon Dioxide 29 Anion Gap 11 BUN 31 H Creatinine 1.68 H Estim Creat Clear Calc 42 Estimated GFR 40 L Glucose 143 H POC Capillary Glucose 139 H Calcium 9.4 Total Bilirubin 0.9 AST 34 ALT 37 Alkaline Phosphatase 25 L Total Protein 7.0 Albumin 4.0
--- NOTE | 2025-01-19 11:44 | P.PNIM_ITS ---
Progress Note: A&P Assessment and Plan (1) SBO (small bowel obstruction): Code(s): K56.609 - Unspecified intestinal obstruction, unspecified as to partial versus complete obstruction Status: Acute Assessment and Plan: Patient tih previous history of laparotomy incision for bleeding after an attempted laparoscopic cholecystectomy over 20 years ago * CTAP: Ascending aortic aneurysm measuring up to 5.6 cm. The descending thoracic aorta is mildly dilated to 3.1 cm. Consider nonemergent but timely outpatient CT angiography of the chest and appropriate referral for monitoring/potential intervention. Mild esophagitis/gastritis. Periesophageal lymphadenopathy. Hepatomegaly with steatosis. Mid small bowel obstruction, transition point in the left lateral abdomen. Small volume ascites. Bladder wall thickening, likely secondary to chronic outlet obstruction from prostatomegaly. * Surgery consulted * NG tube to suction * Small bowel series: At 2 hours and 30 minutes, the contrast was still in the dilated small bowel. * Pain management * IV Fluids * holding Xarelto * PPI * Zosyn IV * Plan for exploratory laparotomy 01/18/2025 * Would recommend stopping semaglutide 01/19: * Post-op day 1 patient had 1 lysis of adhesions tolerated procedure well * continue NG tube for decompression until bowel bowel function returned per surgery * will continue with pain management IV hydromorphone, IV fluids * will resume Xarelto when surgery clears to resume currently on lovenox for DVT * Small bump and CR continue with IV fluids (2) Hypertension: Qualifiers: Hypertension type: primary hypertension Qualified Code(s): I10 - Essential (primary) hypertension Code(s): I10 - Essential (primary) hypertension Status: Acute Assessment and Plan: * NPO * Hypertensive * added Hydralazine IVP 20 mg for systolic >160 * Need to keep controlled due to AAA 01/19/25: * Patient still hypertensive * Transition to IV Metoprolol (patient takes 25mg ER conversion to IV was 2.5mg Q6hr) * Increased Hydralazine to Q6hr PRN Systolic >160 (3) Ascending aortic aneurysm: Code(s): I71.21 - Aneurysm of the ascending aorta, without rupture Status: Acute Assessment and Plan: * Ascending aortic aneurysm measuring up to 5.6 cm. The descending thoracic aorta is mildly dilated to 3.1 cm * Will need follow-up with vascular surgeon * Keep BP well controlled (4) Type 2 diabetes mellitus with diabetic nephropathy: Code(s): E11.21 - Type 2 diabetes mellitus with diabetic nephropathy Status: Acute Assessment and Plan: * Accu-Cheks a.c. HS * sliding scale insulin * hold oral diabetic medications * Holding metformin and semaglutide * encourage lifestyle modifications and weight loss * Optimize Dung inhibitors and statins. * Watch for hypoglycemia/hypoglycemic protocol ordered (5) BPH (benign prostatic hyperplasia): Code(s): N40.0 - Benign prostatic hyperplasia without lower urinary tract symptoms Status: Acute Assessment and Plan: * HX of BPH * Currently having to hold Doxazosin and Proscar * monitor closely for urinary retention * Bladder scan PRN * may need to replace mosquera if unable to void until medications resumed Plan Code status: Full code per patient DVT prophylaxis: Xarelto on hold for surgery/Lovenox DVT until taking PO Stress ulcer prophylaxis: Protonix 40 BID PT/OT notes: NA Disposition: Patient continues admission for small bowel obstruction postop day 1 with lysis adhesions. will continue with NG tube for decompression and until bowel function returns patient at high risk for postop ileus. patient's plan is to return home when medically stable Time Spent With Patient Time with patient: 15 - 25 minutes Subjective Date/time seen: 01/19/25 11:44 Interval history: Patient admitted for treatment of SBO and plan for exploratory laparotomy. 01/19/2025: Patient was up in chair alert and oriented x3, reported from staff that he had acute confusion when he received hydromorphone which has been d/c. Patient post-op day 1 of adhesiolysis exploratory laparotomy. Patient reports pain is manageable with IV ibuprofen. Patient still hypertensive with due IV conversion on his oral metoprolol. Patient reports to abdominal pain as well as scant gas. Mosquera was removed and he voided however HX of BPH and currently of his medication p.r.n. bladder scans if no void 6 hours may need to replace Mosquera catheter until resuming oral medications. Discontinued sitter at this was placed due to acute confusion from pain medication. Review of Systems Review of Systems: All systems reviewed & are unremarkable except as noted in HPI and below Exam Narrative: * GENERAL: Alert and oriented x 3. No acute distress. * EYES: PERRLA. * HEENT: Moist mucous membranes. NG tube * LUNGS: Clear to auscultation bilaterally. No accessory muscle use. * CARDIOVASCULAR: Regular rate and rhythm. No murmur. No JVD. S1-S2 * ABDOMEN: ABD tenderness and distention improving 4 incisions Postop exploratory laparotomy * EXTREMITIES: 2+ edema BLE. Non-tender * SKIN: No rashes or lesions. Skin warm, dry. * NEUROLOGIC: No focal neurological deficits. CN II-XII grossly intact * PSYCHIATRIC: Appropriate mood and affect. Good judgement and insight. Objective Data Vital Signs Vital Signs: Vital Signs - 24 hr 01/18/25 14:00 01/18/25 16:15 01/18/25 19:10 Temperature 97.3 F L 98.3 F Pulse Rate 62 66 Respiratory Rate 20 12 Blood Pressure 190/90 H 184/91 H 102/47 L Pulse Oximetry 99 93 Oxygen Delivery Simple Face Mask Oxygen Flow Rate 8 01/18/25 19:25 01/18/25 19:30 01/18/25 19:45 Temperature Pulse Rate 73 72 79 Respiratory Rate 18 17 16 Blood Pressure 104/43 L 111/52 L 143/65 H Pulse Oximetry 93 91 95 Oxygen Delivery Simple Face Mask Simple Face Mask Simple Face Mask Oxygen Flow Rate 8 8 8 01/18/25 19:50 01/18/25 20:00 01/18/25 20:15 Temperature Pulse Rate 89 90 Respiratory Rate 17 18 Blood Pressure 153/65 H 141/66 H Pulse Oximetry 97 94 92 Oxygen Delivery Room Air Nasal Cannula Nasal Cannula Oxygen Flow Rate 4 4 01/18/25 20:40 01/18/25 20:55 01/18/25 23:00 Temperature 97.2 F L 97.3 F L 97.0 F L Pulse Rate 64 107 H 98 Respiratory Rate 16 18 18 Blood Pressure 153/71 H 158/80 H 167/80 H Pulse Oximetry 93 94 97 Oxygen Delivery Oxygen Flow Rate 01/19/25 03:42 01/19/25 08:14 01/19/25 09:13 Temperature 97.1 F L 97.9 F Pulse Rate 71 73 Respiratory Rate 16 18 Blood Pressure 154/78 H 174/73 H 162/75 H Pulse Oximetry 91 90 Oxygen Delivery Oxygen Flow Rate Intake/Output Intake/Output: Intake & Output 01/16/25 01/17/25 01/18/25 01/19/25 23:59 23:59 23:59 23:59 Intake Total 1100 2458.3 450 Output Total 150 400 500 Balance 950 2058.3 -50 Meds/Results Medications: Active Medications Generic Name Dose Route Start Last Admin Trade Name Freq PRN Reason Stop Dose Admin Al Hydrox/Mg Hydrox/Simethicone 30 ml 01/18/25 19:20 01/19/25 06:46 Mag Hydrox/Al Hydrox/Simeth 30 Ml Udc PO Not Given Q8HR [facility] Dextrose 12.5 gm 01/18/25 15:51 Dextrose 50% 25 Gm/50 Ml Syringe IV PUSH PRN PRN Hypoglycemia Protocol Glucagon 1 mg 01/18/25 15:51 Glucagon For Inj 1 Mg Vial IM PRN PRN Hypoglycemia Protocol Glucose 15 gm 01/18/25 15:51 Glucose Oral Gel 15 Gm Of Glucse In 37.5 Gm Tube PO PRN PRN Hypoglycemia Protocol Hydralazine HCl 20 mg 01/18/25 15:31 01/19/25 08:43 Hydralazine Hcl 20 Mg/Ml Vial IV PUSH 20 mg Q8H PRN Administration Blood Pressure - High Hydromorphone HCl 1 mg 01/18/25 13:49 01/19/25 01:07 Hydromorphone Hcl Inj (*Crx) 2 Mg/Ml Vial IV PUSH 1 mg Q4HR PRN Administration Pain Rated 7-10 Hydromorphone HCl 0.5 mg 01/18/25 19:13 Hydromorphone Hcl Inj (*Crx) 1 Mg/Ml Syr IV PUSH Q3H PRN Pain Rated 4-6 Piperacillin/Tazobactam/Dextrose 3.375 gm in 50 mls @ 100 mls/hr 01/17/25 02:00 01/19/25 08:42 Zosyn 3.375 Gm/Ns 50 Ml IVPB 100 mls/hr Q6H [facility] Administration Sodium Chloride 1,000 mls @ 125 mls/hr 01/17/25 21:20 01/19/25 00:27 Normal Saline Iv IV CONT 125 mls/hr .Q8H [facility] Administration Dextrose 1,000 mls @ 100 mls/hr 01/18/25 15:51 Dextrose 5% 1,000 Ml IVPB PRN PRN Hypoglycemia Protocol Ibuprofen 800 mg in 200 mls @ 400 mls/hr 01/18/25 19:15 01/19/25 06:22 Caldolor 800 Mg/200 Ml IVPB Infused Q6HR [facility] Infusion Insulin Aspart 2 - 5 units 01/18/25 17:00 01/19/25 08:41 Insulin Aspart (*Bkc) 100 Units/Ml SUB-Q Not Given TIDWM [facility] Protocol Metoclopramide HCl 10 mg 01/19/25 00:00 01/19/25 05:53 Metoclopramide Hcl Inj 10 Mg/2 Ml Vial IV PUSH 10 mg Q6HR [facility] Administration Metoprolol Tartrate 5 mg 01/18/25 19:11 Metoprolol Tartrate Inj 5 Mg/5 Ml Vial IV PUSH Q4H PRN hypertension SBP > 170 Ondansetron HCl 4 mg 01/17/25 19:07 01/17/25 22:44 Ondansetron Inj 4 Mg/2 Ml Vial IV PUSH 4 mg Q4H PRN Administration Nausea Ondansetron HCl 4 mg 01/18/25 17:24 Ondansetron Inj 4 Mg/2 Ml Vial IV PUSH ONCE PRN Nausea Pantoprazole Sodium 40 mg 01/17/25 22:30 01/19/25 08:42 Pantoprazole Sodium Iv 40 Mg Vial IV PUSH 40 mg Q12HR [facility] Administration Rivaroxaban 20 mg 01/18/25 17:00 Rivaroxaban 20 Mg Tablet PO DAILY@1700 [facility] Radiology Results: ITS Impressions Abdomen/Pelvis CT 01/17/25 18:07 IMPRESSION: Ascending aortic aneurysm measuring up to 5.6 cm. The descending thoracic aorta is mildly dilated to 3.1 cm. Consider nonemergent but timely outpatient CT angiography of the chest and appropriate referral for monitoring/potential intervention. Mild esophagitis/gastritis. Periesophageal lymphadenopathy. Hepatomegaly with steatosis. Mid small bowel obstruction, transition point in the left lateral abdomen. Small volume ascites. Bladder wall thickening, likely secondary to chronic outlet obstruction from prostatomegaly. Small Bowel X-Ray 01/18/25 15:02 IMPRESSION: 1. Small bowel obstruction. Abdomen X-Ray 01/19/25 06:23 IMPRESSION: 1: NG tube tip in the stomach. Labs Labs: Laboratory Results - last 24 hr 01/18/25 01/18/25 01/18/25 16:55 19:42 22:39 WBC RBC Hgb Hct MCV MCH MCHC RDW Plt Count MPV Immature Gran % (Auto) Neut % (Auto) Lymph % (Auto) [place] % (Auto) Eos % (Auto) Baso % (Auto) Lymph # (Auto) [place] # (Auto) Eos # (Auto) Baso # (Auto) Abs Immat Gran (auto) Absolute Neuts (auto) Absolute Nucleated RBC Nucleated RBC % Sodium Potassium Chloride Carbon Dioxide Anion Gap BUN Creatinine Estim Creat Clear Calc Estimated GFR Glucose POC Capillary Glucose 180 H 178 H 174 H Calcium Total Bilirubin AST ALT Alkaline Phosphatase Total Protein Albumin 01/19/25 01/19/25 06:24 07:46 WBC 14.4 H RBC 5.30 Hgb 14.3 Hct 45.9 MCV 86.6 MCH 27.0 MCHC 31.2 L RDW 14.0 Plt Count 234 MPV 9.6 Immature Gran % (Auto) 0.3 Neut % (Auto) 82.9 H Lymph % (Auto) 8.4 L [place] % (Auto) 8.3 Eos % (Auto) 0.0 Baso % (Auto) 0.1 L Lymph # (Auto) 1.21 [place] # (Auto) 1.2 H Eos # (Auto) 0.0 Baso # (Auto) 0.0 Abs Immat Gran (auto) 0.05 H Absolute Neuts (auto) 11.9 H Absolute Nucleated RBC 0.000 Nucleated RBC % 0.0 Sodium 142 Potassium 3.5 Chloride 102 Carbon Dioxide 29 Anion Gap 11 BUN 31 H Creatinine 1.68 H Estim Creat Clear Calc 42 Estimated GFR 40 L Glucose 143 H POC Capillary Glucose 139 H Calcium 9.4 Total Bilirubin 0.9 AST 34 ALT 37 Alkaline Phosphatase 25 L Total Protein 7.0 Albumin 4.0 Quality VTE Prophylaxis VTE prophylaxis: mechanical ordered and pharmacologic ordered -Patient's previous records reviewed on admission -ER notes reviewed in detail on admission -discussed all findings and current treatment plan with patient/Family/POA -Consultations reviewed for recommendations -Patient's disposition for safe discharge discussed with bilingual patient support caseworker Dictation performed by [employer] Fluency direct speech recognition software, therefore therapist's assistant variants and typographical errors may occur. Hospitalist MIPS Advance Care Plan I have confirmed that the patient's Advanced Care Plan is present, code status is documented, or surrogate decision maker is listed in patient medical record.: Yes Medication Reconciliation I have utilized all available resources to obtain, update and review the patients current medications (includes all prescriptions, OTC, herbals, cannabis, and nutritional supplements).: Yes The patient is not eligible for med reconciliation; the patient is in a emergent medical situation where delaying treatment would jeopardize the patients health.: No
[2025-01-19 12:03] LABS: Glucose Point of Care 155 mg/dl (65-105)
[2025-01-19] MEDS: ENOXAPARIN 40 MG/0.4 ML SYRINGE SUB-Q (13:46)
[2025-01-19] MEDS: KCL 20MEQ/0.9% SOD CHL 1,000 ML 75 ML IV CONT (13:46)
[2025-01-19] MEDS: METOPROLOL TARTRATE INJ 5 MG/5 ML VIAL 2.5 MG IV PUSH ×3 (13:47→23:17)
[2025-01-19] MEDS: LIDOCAINE 5% PATCH 1 PATCH TRANSDERM (13:49)
[2025-01-19] MEDS: MAG HYDROX/AL HYDROX/SIMETH 30 ML UDC PO ×2 (13:51→21:56)
[2025-01-19 17:07] LABS: Glucose Point of Care 153 mg/dl (65-105)
[2025-01-19 21:59] LABS: Glucose Point of Care 147 mg/dl (65-105)
[2025-01-19] MEDS: MELATONIN 3 MG TABLET PO (23:16)
[2025-01-20] VITALS (15 sets, daily range): BP systolic 155–194; BP diastolic 82–128; PULSE 58–107; RESP 20–22; TEMP 36.5–37.2; O2SAT 92–96
--- NOTE | 2025-01-20 02:16 | PC.NURSE ---
TONIGHT PATIENT HAD INTERMITTENT CONFUSION AND TOOK OUT HIS NG, IV AND SAWMILL SUPERVISOR. PATIENT WAS AGREEABLE TO IV BUT REFUSED VITALS, IV MEDICATIONS, TELEMETRY. CHARGE NURSE MADE AWARE AND SPOKE WITH PATIENT, ALSO MADE MD AWARE TONRICARDO. WILL ATTEMPT LATER TO SEE IF PATIENT WILL ALLOW ADVISED MEDICAL CARE.
[2025-01-20] MEDS: hydrALAZINE HCL 20 MG/ML VIAL IV PUSH ×3 (05:32→18:08)
[2025-01-20 06:30] LABS: Basophils Percent Auto 0.1 % (0.2-1.2); Eosinophils Absolute Auto 0.1 K/mm3 (0-0.3); Eosinophils Percent Auto 0.5 % (0-4.4); Hematocrit 45.2 % (42.0-52.0); Hemoglobin 14.3 g/dL (14.0-18.0); Immature Granulocyte Absolute 0.06 K/mm3 (0.00-0.031); Immature Granulocyte Percent A 0.4 % (0-0.5); Lymphocytes Absolute Auto 1.54 K/mm3 (0.9-3.2); Lymphocytes Percent Auto 11.4 % (18.3-44.2); Mean Corpuscular HGB Conc 31.6 g/dl (32-36); Mean Corpuscular Hemoglobin 27.6 pg (26-34); Mean Corpuscular Volume 87.3 fl (80-100); Mean Platelet Volume 9.7 fl (7.4-10.4); Monocytes Absolute Auto 1.2 K/mm3 (0.1-0.6); Monocytes Percent Auto 8.8 % (2.6-8.5); Neutrophils Absolute Auto 10.6 K/mm3 (1.3-6.7); Neutrophils Percent Auto 78.8 % (45.5-73.1); Platelet Count Result 244 k/mm3 (150-375); Red Blood Count 5.18 M/mm3 (4.6-6.20); Red Cell Distribution Width 13.9 % (11.5-14.5); White Blood Count 13.5 K/mm3 (4.5-10.0)
[2025-01-20 06:39] LABS: Anion Gap 12 mmol/L (4-12); Blood Urea Nitrogen 26 mg/dL (9-20); Calcium 9.3 mg/dL (8.4-10.2); Carbon Dioxide 28 mmol/L (22-30); Chloride 101 mmol/L (98-107); Estimated CRCL calculation 55 ml/min; Estimated Glomerular Filt Rate 55; Glucose 142 mg/dL (65-110); Potassium 3.3 mmol/L (3.4-5.0); Sodium 141 mmol/L (137-145)
[2025-01-20 06:40] LABS: Alanine Aminotransferase 42 U/L (6-50); Albumin Level 4.4 g/dL (3.5-5.1); Alkaline Phosphatase 31 U/L (38-126); Aspartate Amino Transferase 47 U/L (17-59); Bilirubin,Total 1.2 mg/dL (0.2-1.3)
--- NOTE | 2025-01-20 09:13 | P.PNIM_ITS ---
Progress Note: A&P Assessment and Plan (1) SBO (small bowel obstruction): Code(s): K56.609 - Unspecified intestinal obstruction, unspecified as to partial versus complete obstruction Status: Acute Assessment and Plan: Patient tih previous history of laparotomy incision for bleeding after an attempted laparoscopic cholecystectomy over 20 years ago * CTAP: Ascending aortic aneurysm measuring up to 5.6 cm. The descending thoracic aorta is mildly dilated to 3.1 cm. Consider nonemergent but timely outpatient CT angiography of the chest and appropriate referral for monitoring/potential intervention. Mild esophagitis/gastritis. Periesophageal lymphadenopathy. Hepatomegaly with steatosis. Mid small bowel obstruction, transition point in the left lateral abdomen. Small volume ascites. Bladder wall thickening, likely secondary to chronic outlet obstruction from prostatomegaly. * Surgery consulted * NG tube to suction * Small bowel series: At 2 hours and 30 minutes, the contrast was still in the dilated small bowel. * Pain management * IV Fluids * holding Xarelto * PPI * Zosyn IV * Plan for exploratory laparotomy 01/18/2025 * Would recommend stopping semaglutide 01/19: * Post-op day 1 patient had 1 lysis of adhesions tolerated procedure well * continue NG tube for decompression until bowel bowel function returned per surgery * will continue with pain management IV hydromorphone, IV fluids * will resume Xarelto when surgery clears to resume currently on lovenox for DVT * Small bump and CR continue with IV fluids 01/20: * Post-op day 2 * Dilaudid was discontinued patient with post confusion after administration reports pain is managed with IV ibuprofen * refusing NG tube * First flatulence * Hopefully can advance diet to clear liquids (2) Hypertension: Qualifiers: Hypertension type: primary hypertension Qualified Code(s): I10 - Essential (primary) hypertension Code(s): I10 - Essential (primary) hypertension Status: Acute Assessment and Plan: * NPO * Hypertensive * added Hydralazine IVP 20 mg for systolic >160 * Need to keep controlled due to AAA 01/19/25: * Patient still hypertensive * Transition to IV Metoprolol (patient takes 25mg ER conversion to IV was 2.5mg Q6hr) * Increased Hydralazine to Q6hr PRN Systolic >160 01/20: * remains hypertensive need better BP control * increase IV metoprolol 5 mg IV q.6 * switched hydralazine to scheduled * gave Labetalol x1 dose (3) Ascending aortic aneurysm: Code(s): I71.21 - Aneurysm of the ascending aorta, without rupture Status: Chronic Assessment and Plan: * Ascending aortic aneurysm measuring up to 5.6 cm. The descending thoracic aorta is mildly dilated to 3.1 cm * Will need follow-up with vascular surgeon * Keep BP well controlled (4) Type 2 diabetes mellitus with diabetic nephropathy: Code(s): E11.21 - Type 2 diabetes mellitus with diabetic nephropathy Status: Chronic Assessment and Plan: * Accu-Cheks a.c. HS * sliding scale insulin * hold oral diabetic medications * Holding metformin and semaglutide * encourage lifestyle modifications and weight loss * Optimize Dung inhibitors and statins. * Watch for hypoglycemia/hypoglycemic protocol ordered (5) BPH (benign prostatic hyperplasia): Code(s): N40.0 - Benign prostatic hyperplasia without lower urinary tract symptoms Status: Acute Assessment and Plan: * HX of BPH * Currently having to hold Doxazosin and Proscar * monitor closely for urinary retention * Bladder scan PRN * may need to replace mosquera if unable to void until medications resumed 01/20: * patient with adequate urine output Plan Code status: Full code per patient DVT prophylaxis: Xarelto on hold for surgery/Lovenox DVT until taking PO Stress ulcer prophylaxis: Protonix 40 BID PT/OT notes: NA Disposition: Patient continues admission for small bowel obstruction postop day 1 with lysis adhesions. will continue with NG tube for decompression and until bowel function returns patient at high risk for postop ileus. patient's plan is to return home when medically stable Time Spent With Patient Time with patient: 15 - 25 minutes Subjective Date/time seen: 01/20/25 09:13 Interval history: Patient admitted for treatment of SBO and plan for exploratory laparotomy. 01/20/2025: Patient still hypertensive will increase IV metoprolol to 5 mg scheduled and schedule his IV hydralazine. Patient refusing NG tube but denies ABD pain, distention slightly improved. Patient reported flatulence but still no BM. Review of Systems Review of Systems: All systems reviewed & are unremarkable except as noted in HPI and below Exam Narrative: * GENERAL: Alert and oriented x 3. No acute distress. * EYES: PERRLA. * HEENT: Moist mucous membranes. NG tube * LUNGS: Clear to auscultation bilaterally. No accessory muscle use. * CARDIOVASCULAR: Regular rate and rhythm. No murmur. No JVD. S1-S2 * ABDOMEN: ABD tenderness and distention improving Postop exploratory laparotomy midline incision * EXTREMITIES: 2+ edema BLE. Non-tender * SKIN: No rashes or lesions. Skin warm, dry. * NEUROLOGIC: No focal neurological deficits. CN II-XII grossly intact * PSYCHIATRIC: Appropriate mood and affect. Good judgement and insight. Objective Data Vital Signs Vital Signs: Vital Signs - 24 hr 01/19/25 12:11 01/19/25 13:20 01/19/25 13:22 Temperature 98.0 F Pulse Rate 82 Respiratory Rate 18 Blood Pressure 191/102 H 184/95 H Pulse Oximetry 93 93 Oxygen Delivery Room Air 01/19/25 13:47 01/19/25 16:01 01/19/25 16:57 Temperature 98.1 F 99.8 F H Pulse Rate 82 86 82 Respiratory Rate 17 18 Blood Pressure 183/91 H 184/92 H Pulse Oximetry 91 93 Oxygen Delivery 01/19/25 20:00 01/19/25 20:00 01/19/25 20:00 Temperature 97.9 F Pulse Rate 96 107 H Respiratory Rate 20 Blood Pressure 145/90 H Pulse Oximetry 94 Oxygen Delivery Room Air 01/19/25 23:17 01/20/25 00:00 01/20/25 00:00 Temperature 98.3 F Pulse Rate 80 78 107 H Respiratory Rate 20 Blood Pressure 180/100 H Pulse Oximetry 92 Oxygen Delivery 01/20/25 04:00 01/20/25 06:37 Temperature 97.7 F Pulse Rate 76 Respiratory Rate 20 Blood Pressure 192/128 H 176/82 H Pulse Oximetry 94 Oxygen Delivery Intake/Output Intake/Output: Intake & Output 01/17/25 01/18/25 01/19/25 01/20/25 23:59 23:59 23:59 23:59 Intake Total 1100 2458.3 950 Output Total 415 237 2564 1100 Balance 950 2058.3 -1450 -1100 Meds/Results Medications: Active Medications Generic Name Dose Route Start Last Admin Trade Name Freq PRN Reason Stop Dose Admin Al Hydrox/Mg Hydrox/Simethicone 30 ml 01/18/25 19:20 01/20/25 05:51 Mag Hydrox/Al Hydrox/Simeth 30 Ml Udc PO Not Given Q8HR AUGUSTINE Bisacodyl 10 mg 01/20/25 09:00 Bisacodyl 10 Mg Suppository RECTAL QAM AUGUSTINE Dextrose 12.5 gm 01/18/25 15:51 Dextrose 50% 25 Gm/50 Ml Syringe IV PUSH PRN PRN Hypoglycemia Protocol Enoxaparin Sodium 40 mg 01/19/25 11:45 01/19/25 13:46 Enoxaparin 40 Mg/0.4 Ml Syringe SUB-Q 40 mg DAILY AUGUSTINE Administration Glucagon 1 mg 01/18/25 15:51 Glucagon For Inj 1 Mg Vial IM PRN PRN Hypoglycemia Protocol Glucose 15 gm 01/18/25 15:51 Glucose Oral Gel 15 Gm Of Glucse In 37.5 Gm Tube PO PRN PRN Hypoglycemia Protocol Hydralazine HCl 20 mg 01/20/25 12:00 Hydralazine Hcl 20 Mg/Ml Vial IV PUSH Q6HR AUGUSTINE Piperacillin/Tazobactam/Dextrose 3.375 gm in 50 mls @ 100 mls/hr 01/17/25 02:00 01/20/25 05:00 Zosyn 3.375 Gm/Ns 50 Ml IVPB Not Given Q6H AUGUSTINE Dextrose 1,000 mls @ 100 mls/hr 01/18/25 15:51 Dextrose 5% 1,000 Ml IVPB PRN PRN Hypoglycemia Protocol Ibuprofen 800 mg in 200 mls @ 400 mls/hr 01/18/25 19:15 01/20/25 05:51 Caldolor 800 Mg/200 Ml IVPB Not Given Q6HR AUGUSTINE Potassium Chloride/Sodium Chloride 1,000 mls @ 75 mls/hr 01/19/25 11:45 01/19/25 13:46 Kcl 20 Meq/Ns IV CONT 75 mls/hr .[id number] AUGUSTINE Administration Insulin Aspart 2 - 5 units 01/18/25 17:00 01/19/25 17:03 Insulin Aspart (*Bkc) 100 Units/Ml SUB-Q Not Given TIDWM [facility] Protocol Lidocaine 1 patch 01/19/25 13:35 01/19/25 13:49 Lidocaine 5% Patch TRANSDERM 1 patch DAILY AUGUSTINE Administration Melatonin 3 mg 01/19/25 22:39 01/19/25 23:16 Melatonin 3 Mg Tablet PO 3 mg HS PRN Administration Insomnia Metoclopramide HCl 10 mg 01/19/25 00:00 01/20/25 05:51 Metoclopramide Hcl Inj 10 Mg/2 Ml Vial IV PUSH Not Given Q6HR AUGUSTINE Metoprolol Tartrate 5 mg 01/20/25 09:10 Metoprolol Tartrate Inj 5 Mg/5 Ml Vial IV PUSH Q6HR AUGUSTINE Ondansetron HCl 4 mg 01/17/25 19:07 01/17/25 22:44 Ondansetron Inj 4 Mg/2 Ml Vial IV PUSH 4 mg Q4H PRN Administration Nausea Ondansetron HCl 4 mg 01/18/25 17:24 Ondansetron Inj 4 Mg/2 Ml Vial IV PUSH ONCE PRN Nausea Pantoprazole Sodium 40 mg 01/17/25 22:30 01/19/25 21:56 Pantoprazole Sodium Iv 40 Mg Vial IV PUSH 40 mg Q12HR AUGUSTINE Administration Rivaroxaban 20 mg 01/18/25 17:00 Rivaroxaban 20 Mg Tablet PO DAILY@1700 [facility] Radiology Results: ITS Impressions Abdomen/Pelvis CT 01/17/25 18:07 IMPRESSION: Ascending aortic aneurysm measuring up to 5.6 cm. The descending thoracic aorta is mildly dilated to 3.1 cm. Consider nonemergent but timely outpatient CT angiography of the chest and appropriate referral for monitoring/potential intervention. Mild esophagitis/gastritis. Periesophageal lymphadenopathy. Hepatomegaly with steatosis. Mid small bowel obstruction, transition point in the left lateral abdomen. Small volume ascites. Bladder wall thickening, likely secondary to chronic outlet obstruction from prostatomegaly. Small Bowel X-Ray 01/18/25 15:02 IMPRESSION: 1. Small bowel obstruction. Abdomen X-Ray 01/19/25 06:23 IMPRESSION: 1: NG tube tip in the stomach. Labs Labs: Laboratory Results - last 24 hr 01/19/25 01/19/25 01/19/25 11:50 16:59 20:53 WBC RBC Hgb Hct MCV MCH MCHC RDW Plt Count MPV Immature Gran % (Auto) Neut % (Auto) Lymph % (Auto) [place] % (Auto) Eos % (Auto) Baso % (Auto) Lymph # (Auto) [place] # (Auto) Eos # (Auto) Baso # (Auto) Abs Immat Gran (auto) Absolute Neuts (auto) Absolute Nucleated RBC Nucleated RBC % Sodium Potassium Chloride Carbon Dioxide Anion Gap BUN Creatinine Estim Creat Clear Calc Estimated GFR Glucose POC Capillary Glucose 155 H 153 H 147 H Calcium Total Bilirubin AST ALT Alkaline Phosphatase Total Protein Albumin 01/20/25 06:02 WBC 13.5 H RBC 5.18 Hgb 14.3 Hct 45.2 MCV 87.3 MCH 27.6 MCHC 31.6 L RDW 13.9 Plt Count 244 MPV 9.7 Immature Gran % (Auto) 0.4 Neut % (Auto) 78.8 H Lymph % (Auto) 11.4 L [place] % (Auto) 8.8 H Eos % (Auto) 0.5 Baso % (Auto) 0.1 L Lymph # (Auto) 1.54 [place] # (Auto) 1.2 H Eos # (Auto) 0.1 Baso # (Auto) 0.0 Abs Immat Gran (auto) 0.06 H Absolute Neuts (auto) 10.6 H Absolute Nucleated RBC 0.000 Nucleated RBC % 0.0 Sodium 141 Potassium 3.3 L Chloride 101 Carbon Dioxide 28 Anion Gap 12 BUN 26 H Creatinine 1.27 Estim Creat Clear Calc 55 Estimated GFR 55 L Glucose 142 H POC Capillary Glucose Calcium 9.3 Total Bilirubin 1.2 AST 47 ALT 42 Alkaline Phosphatase 31 L Total Protein 8.0 Albumin 4.4 Quality VTE Prophylaxis VTE prophylaxis: mechanical ordered and pharmacologic ordered -Patient's previous records reviewed on admission -ER notes reviewed in detail on admission -discussed all findings and current treatment plan with patient/Family/POA -Consultations reviewed for recommendations -Patient's disposition for safe discharge discussed with briefcase sewer Dictation performed by [employer] direct speech recognition software, therefore news commentator variants and typographical errors may occur. Hospitalist [facility] Advance Care Plan I have confirmed that the patient's Advanced Care Plan is present, code status is documented, or surrogate decision maker is listed in patient medical record.: Yes Medication Reconciliation I have utilized all available resources to obtain, update and review the patients current medications (includes all prescriptions, OTC, herbals, cannabis, and nutritional supplements).: Yes The patient is not eligible for med reconciliation; the patient is in a emergent medical situation where delaying treatment would jeopardize the patients health.: No
[2025-01-20] MEDS: PIPERACILLN/TAZ 3.375GM/NS50ML 3.375 GM/50 ML BAG IVPB ×3 (09:37→23:52)
[2025-01-20] MEDS: ENOXAPARIN 40 MG/0.4 ML SYRINGE SUB-Q (09:37)
[2025-01-20] MEDS: PANTOPRAZOLE SODIUM IV 40 MG VIAL IV PUSH (09:37)
[2025-01-20] MEDS: LIDOCAINE 5% PATCH 1 PATCH TRANSDERM (09:37)
[2025-01-20] MEDS: KCL 20MEQ/0.9% SOD CHL 1,000 ML 75 ML IV CONT ×3 (12:23→23:52)
[2025-01-20] MEDS: IBUPROFEN IV 800 MG/200 ML 800 MG/200 ML BAG 400 MG IVPB ×2 (12:25→18:08)
[2025-01-20] MEDS: METOPROLOL TARTRATE INJ 5 MG/5 ML VIAL IV PUSH ×2 (12:36→18:09)
[2025-01-20] MEDS: METOCLOPRAMIDE HCL INJ 10 MG/2 ML VIAL IV PUSH ×2 (12:36→18:10)
--- NOTE | 2025-01-20 14:43 | PM.PNGS ---
Progress Note: A&P Assessment and Plan (1) SBO (small bowel obstruction): Code(s): K56.609 - Unspecified intestinal obstruction, unspecified as to partial versus complete obstruction Status: Acute Assessment and Plan: Patient removed NG tube Mckinney and IV earlier this morning. After speaking with him and reinforcing the need for the nasogastric tube, he has agreed to have it replaced. He is voiding adequately and IV has been replaced. He seems restless and with difficulty focusing. Increase ambulation. Continue NPO except ice chips and NG suction. Recheck labs and exam again tomorrow. 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 Will start prophylactic Lovenox. (4) Hx of deep venous thrombosis: Code(s): Z86.718 - Personal history of other venous thrombosis and embolism Status: Chronic (5) Chronic kidney disease, stage 3 (moderate): Code(s): N18.3 - Chronic kidney disease, stage 3 (moderate) Status: Chronic (6) Morbid obesity with body mass index (BMI) of 40.0 or higher: Code(s): E66.01 - Morbid (severe) obesity due to excess calories Status: Chronic (7) Ascending aortic aneurysm: Qualifiers: Presence of rupture: without rupture Qualified Code(s): I71.21 - Aneurysm of the ascending aorta, without rupture Code(s): I71.21 - Aneurysm of the ascending aorta, without rupture Status: Chronic Assessment and Plan: Will need a vascular referral as an outpatient. Subjective Subjective Date/Time Seen: 01/20/25 14:43 Post Op day: 2 Patient reports: no new complaints, pain is less, flatus, no bowel movement and afebrile Interval history: Patient pulled down nasogastric tube, Mckinney catheter, IV earlier this morning. IV has been replaced. He has been restless. Review of Systems Review of Systems: All systems reviewed & are unremarkable except as noted in HPI and below (HPI) Exam Const: General: cooperative, no acute distress, alert, awake, anxious and uncomfortable (Restless, difficulty focusing) Nutritional Appearance: obese Orientation/consciousness: oriented to person (Mr. Shen), oriented to place ([facility]) and oriented to time (January 20, 2025) GI: Inspection: distended, incision (Dry and healing) and obesity GI Palp: Yes Firmness to palpation present (GI), Yes Tenderness to palpation present (GI), No Guarding due to palpation present (GI), No Hernia present and No Palpable mass present Auscultation: Hypoactive bowel sounds present Skin: Lesions: no lesions Rashes: no rashes Neuro: General: patient oriented x3, gait normal and no focal motor deficits Cranial nerves: Yes Bilaterally intact EOM present, Yes facial symmetry and Yes Midline tongue present Speech: normal speech Extrem: General: no calf tenderness, no edema and other (Brawny edema and venous stasis disease both lower extremities) Psych: Speech and movement: Clear speech present Affect: Anxious affect present Attitude: cooperative Insight: Limited insight present (Psych) Judgement: Limited judgement present (Psych) Objective Data Vital Signs Vital Signs: Vital Signs - 24 hr 01/19/25 16:01 01/19/25 16:57 01/19/25 20:00 Temperature 36.7 C 37.7 C H 36.6 C Pulse Rate 86 82 96 Respiratory Rate 17 18 20 Blood Pressure 183/91 H 184/92 H 145/90 H Pulse Oximetry 91 93 94 Oxygen Delivery 01/19/25 20:00 01/19/25 20:00 01/19/25 23:17 Temperature Pulse Rate 107 H 80 Respiratory Rate Blood Pressure Pulse Oximetry Oxygen Delivery Room Air 01/20/25 00:00 01/20/25 00:00 01/20/25 04:00 Temperature 36.8 C 36.5 C Pulse Rate 78 107 H 76 Respiratory Rate 20 20 Blood Pressure 180/100 H 192/128 H Pulse Oximetry 92 94 Oxygen Delivery 01/20/25 06:37 01/20/25 08:00 01/20/25 08:00 Temperature Pulse Rate 86 86 Respiratory Rate 20 Blood Pressure 176/82 H Pulse Oximetry 94 Oxygen Delivery Room Air 01/20/25 08:58 01/20/25 10:25 01/20/25 11:33 Temperature 36.7 C Pulse Rate 86 96 Respiratory Rate 20 Blood Pressure 194/101 H Pulse Oximetry 96 Oxygen Delivery Room Air 01/20/25 12:00 01/20/25 12:36 01/20/25 13:53 Temperature Pulse Rate 103 H 101 H Respiratory Rate Blood Pressure Pulse Oximetry Oxygen Delivery Room Air Intake/Output Intake/Output: Intake & Output 01/17/25 01/18/25 01/19/25 01/20/25 23:59 23:59 23:59 23:59 Intake Total 1100 2458.3 1000 1201.3 Output Total 480 008 7258 1100 Balance 950 2058.3 -1400 101.3 Meds/Results Medications: Active Medications Generic Name Dose Route Start Last Admin Trade Name Freq PRN Reason Stop Dose Admin Al Hydrox/Mg Hydrox/Simethicone 30 ml 01/18/25 19:20 01/20/25 14:26 Mag Hydrox/Al Hydrox/Simeth 30 Ml Udc PO Not Given Q8HR AUGUSTINE Bisacodyl 10 mg 01/20/25 09:00 01/20/25 09:39 Bisacodyl 10 Mg Suppository RECTAL Not Given QAM AUGUSTINE Dextrose 12.5 gm 01/18/25 15:51 Dextrose 50% 25 Gm/50 Ml Syringe IV PUSH PRN PRN Hypoglycemia Protocol Enoxaparin Sodium 40 mg 01/19/25 11:45 01/20/25 09:37 Enoxaparin 40 Mg/0.4 Ml Syringe SUB-Q 40 mg DAILY AUGUSTINE Administration Glucagon 1 mg 01/18/25 15:51 Glucagon For Inj 1 Mg Vial IM PRN PRN Hypoglycemia Protocol Glucose 15 gm 01/18/25 15:51 Glucose Oral Gel 15 Gm Of Glucse In 37.5 Gm Tube PO PRN PRN Hypoglycemia Protocol Hydralazine HCl 20 mg 01/20/25 12:00 01/20/25 12:23 Hydralazine Hcl 20 Mg/Ml Vial IV PUSH 20 mg Q6HR AUGUSTINE Administration Piperacillin/Tazobactam/Dextrose 3.375 gm in 50 mls @ 100 mls/hr 01/17/25 02:00 01/20/25 14:24 Zosyn 3.375 Gm/Ns 50 Ml IVPB 100 mls/hr Q6H AUGUSTINE Administration Dextrose 1,000 mls @ 100 mls/hr 01/18/25 15:51 Dextrose 5% 1,000 Ml IVPB PRN PRN Hypoglycemia Protocol Ibuprofen 800 mg in 200 mls @ 400 mls/hr 01/18/25 19:15 01/20/25 12:25 Caldolor 800 Mg/200 Ml IVPB 400 mls/hr Q6HR AUGUSTINE Administration Potassium Chloride/Sodium Chloride 1,000 mls @ 75 mls/hr 01/19/25 11:45 01/20/25 14:24 Kcl 20 Meq/Ns IV CONT 75 mls/hr .[id number] AUGUSTINE Administration Insulin Aspart 2 - 5 units 01/18/25 17:00 01/20/25 12:26 Insulin Aspart (*Bkc) 100 Units/Ml SUB-Q Not Given TIDWM [facility] Protocol Lidocaine 1 patch 01/19/25 13:35 01/20/25 09:37 Lidocaine 5% Patch TRANSDERM 1 patch DAILY AUGUSTINE Administration Melatonin 3 mg 01/19/25 22:39 01/19/25 23:16 Melatonin 3 Mg Tablet PO 3 mg HS PRN Administration Insomnia Metoclopramide HCl 10 mg 01/19/25 00:00 01/20/25 12:36 Metoclopramide Hcl Inj 10 Mg/2 Ml Vial IV PUSH 10 mg Q6HR AUGUSTINE Administration Metoprolol Tartrate 5 mg 01/20/25 09:10 01/20/25 12:36 Metoprolol Tartrate Inj 5 Mg/5 Ml Vial IV PUSH 5 mg Q6HR AUGUSTINE Administration Ondansetron HCl 4 mg 01/17/25 19:07 01/17/25 22:44 Ondansetron Inj 4 Mg/2 Ml Vial IV PUSH 4 mg Q4H PRN Administration Nausea Pantoprazole Sodium 40 mg 01/17/25 22:30 01/20/25 09:37 Pantoprazole Sodium Iv 40 Mg Vial IV PUSH 40 mg Q12HR AUGUSTINE Administration Rivaroxaban 20 mg 01/18/25 17:00 Rivaroxaban 20 Mg Tablet PO DAILY@1700 [facility] Radiology Results: ITS Impressions Abdomen/Pelvis CT 01/17/25 18:07 IMPRESSION: Ascending aortic aneurysm measuring up to 5.6 cm. The descending thoracic aorta is mildly dilated to 3.1 cm. Consider nonemergent but timely outpatient CT angiography of the chest and appropriate referral for monitoring/potential intervention. Mild esophagitis/gastritis. Periesophageal lymphadenopathy. Hepatomegaly with steatosis. Mid small bowel obstruction, transition point in the left lateral abdomen. Small volume ascites. Bladder wall thickening, likely secondary to chronic outlet obstruction from prostatomegaly. Small Bowel X-Ray 01/18/25 15:02 IMPRESSION: 1. Small bowel obstruction. Abdomen X-Ray 01/19/25 06:23 IMPRESSION: 1: NG tube tip in the stomach. Labs Labs: Laboratory Results - last 24 hr 01/19/25 01/19/25 01/20/25 16:59 20:53 06:02 WBC 13.5 H RBC 5.18 Hgb 14.3 Hct 45.2 MCV 87.3 MCH 27.6 MCHC 31.6 L RDW 13.9 Plt Count 244 MPV 9.7 Immature Gran % (Auto) 0.4 Neut % (Auto) 78.8 H Lymph % (Auto) 11.4 L [place] % (Auto) 8.8 H Eos % (Auto) 0.5 Baso % (Auto) 0.1 L Lymph # (Auto) 1.54 [place] # (Auto) 1.2 H Eos # (Auto) 0.1 Baso # (Auto) 0.0 Abs Immat Gran (auto) 0.06 H Absolute Neuts (auto) 10.6 H Absolute Nucleated RBC 0.000 Nucleated RBC % 0.0 Sodium 141 Potassium 3.3 L Chloride 101 Carbon Dioxide 28 Anion Gap 12 BUN 26 H Creatinine 1.27 Estim Creat Clear Calc 55 Estimated GFR 55 L Glucose 142 H POC Capillary Glucose 153 H 147 H Calcium 9.3 Total Bilirubin 1.2 AST 47 ALT 42 Alkaline Phosphatase 31 L Total Protein 8.0 Albumin 4.4
[2025-01-20] MEDS: LABETALOL HCL INJ 100 MG/20 ML VIAL 20 MG IV PUSH (15:40)
[2025-01-20 17:02] LABS: Glucose Point of Care 164 mg/dl (65-105)
[2025-01-20 20:14] LABS: Glucose Point of Care 155 mg/dl (65-105)
[2025-01-20] MEDS: LORazepam INJ (*CRX) 2 MG/ML VIAL 0.5 MG IV PUSH (23:38)
[2025-01-21] VITALS (28 sets, daily range): BP systolic 135–201; BP diastolic 68–106; PULSE 72–144; RESP 22–33; TEMP 36.3–38.3; O2SAT 88–100
[2025-01-21] MEDS: LORazepam INJ (*CRX) 2 MG/ML VIAL 1 MG IV PUSH (01:42)
[2025-01-21] MEDS: OLANZapine 5 MG, WATER, STERILE FOR INJECTION 2.1 ML IM (01:43)
[2025-01-21] MEDS: METOPROLOL TARTRATE INJ 5 MG/5 ML VIAL IV PUSH ×5 (02:18→18:20)
--- NOTE | 2025-01-21 03:44 | PM.EVENT ---
Event Note Event Note Event Note: Concern: Patient became delirious and attempted to run out of the hospital. He resides alone and efforts to reach his son were unsuccessful; security agents were able to bring him back to the hospital. His confusional state has been refractory to Zyprexa and Ativan. Plan: Transfer to ICU IV Precedex titrate to conscious sedation Discussed with Commodity Loan Clerk
[2025-01-21] MEDS: dexmedeTOMIDine 400 MCG/100 ML 400 MCG/100 ML BAG 6.65 MCG IV CONT (04:45)
[2025-01-21] MEDS: hydrALAZINE HCL 20 MG/ML VIAL IV PUSH ×5 (04:58→21:55)
[2025-01-21] MEDS: DEXMEDETOMIDINE IVPB (05:00)
[2025-01-21] MEDS: SODIUM CHLORIDE 0.9% IVPB (05:00)
[2025-01-21] MEDS: METOCLOPRAMIDE HCL INJ 10 MG/2 ML VIAL IV PUSH ×3 (05:04→18:21)
[2025-01-21] MEDS: IBUPROFEN IV 800 MG/200 ML 800 MG/200 ML BAG 400 MG IVPB (05:11)
[2025-01-21 05:18] LABS: Basophils Percent Auto 0.3 % (0.2-1.2); Eosinophils Absolute Auto 0.1 K/mm3 (0-0.3); Eosinophils Percent Auto 0.9 % (0-4.4); Hematocrit 41.7 % (42.0-52.0); Hemoglobin 13.4 g/dL (14.0-18.0); Immature Granulocyte Absolute 0.06 K/mm3 (0.00-0.031); Immature Granulocyte Percent A 0.6 % (0-0.5); Lymphocytes Absolute Auto 0.83 K/mm3 (0.9-3.2); Lymphocytes Percent Auto 7.9 % (18.3-44.2); Mean Corpuscular HGB Conc 32.1 g/dl (32-36); Mean Corpuscular Hemoglobin 27.9 pg (26-34); Mean Corpuscular Volume 86.9 fl (80-100); Mean Platelet Volume 9.2 fl (7.4-10.4); Monocytes Absolute Auto 1.1 K/mm3 (0.1-0.6); Monocytes Percent Auto 10.2 % (2.6-8.5); Neutrophils Absolute Auto 8.4 K/mm3 (1.3-6.7); Neutrophils Percent Auto 80.1 % (45.5-73.1); Platelet Count Result 240 k/mm3 (150-375); Red Cell Distribution Width 13.9 % (11.5-14.5); White Blood Count 10.5 K/mm3 (4.5-10.0)
[2025-01-21 05:31] LABS: Alanine Aminotransferase 53 U/L (6-50); Albumin Level 3.9 g/dL (3.5-5.1); Alkaline Phosphatase 29 U/L (38-126); Anion Gap 11 mmol/L (4-12); Aspartate Amino Transferase 56 U/L (17-59); Bilirubin,Total 1.1 mg/dL (0.2-1.3); Blood Urea Nitrogen 26 mg/dL (9-20); Calcium 8.9 mg/dL (8.4-10.2); Carbon Dioxide 28 mmol/L (22-30); Chloride 103 mmol/L (98-107); Estimated CRCL calculation 58 ml/min; Estimated Glomerular Filt Rate 59; Glucose 161 mg/dL (65-110); Potassium 3.2 mmol/L (3.4-5.0); Sodium 142 mmol/L (137-145)
[2025-01-21] MEDS: KCL 20MEQ/0.9% SOD CHL 1,000 ML 75 ML IV CONT (05:49)
[2025-01-21] MEDS: MAG HYDROX/AL HYDROX/SIMETH 30 ML UDC PO ×3 (05:49→21:55)
[2025-01-21 08:11] LABS: MRSA (PCR) NOT DETECTED (NOT DETECTE)
[2025-01-21] MEDS: BISACODYL 10 MG SUPPOSITORY RECTAL (09:11)
[2025-01-21] MEDS: PANTOPRAZOLE SODIUM IV 40 MG VIAL IV PUSH ×2 (09:11→20:36)
[2025-01-21] MEDS: ENOXAPARIN 40 MG/0.4 ML SYRINGE SUB-Q (09:11)
[2025-01-21] MEDS: PIPERACILLN/TAZ 3.375GM/NS50ML 3.375 GM/50 ML BAG IVPB ×3 (09:12→20:36)
--- NOTE | 2025-01-21 09:40 | P.CONIN_ITS ---
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 Patient received Ativan, Zyprexa. Not combative and agitated so was transferred to the ICU for Precedex infusion. Patient did receive a bolus of the Precedex -currently very somnolent, Precedex at 0.1 mg/kg/hr. -patient is in restraints -bedside sitter in the room -will start small dose Seroquel 25 mg per tube q.12 hours (2) SBO (small bowel obstruction): Code(s): K56.609 - Unspecified intestinal obstruction, unspecified as to partial versus complete obstruction Status: Acute Assessment and Plan: 02/15: Patient was admitted for abdominal pain, small-bowel obstruction on abdominal CT scan -Surgery was consulted, patient was taken for surgery on 01/18/2025 for high- grade small-bowel obstruction secondary to abdominal adhesions, status post exploratory laparotomy with abdominal adhesiolysis. -continue Zosyn per surgery -NG tube in place to low intermittent suction -Reglan, Dulcolax suppository has been ordered per surgery -will discontinue ibuprofen, since patient has chronic kidney disease -also on Mylanta for esophagitis/gastritis -pain control with Tylenol elixir 02/14: CT scan of the abdomen and pelvis showed mid small-bowel obstruction with transition point in the left lateral abdomen, small volume ascites, hepatomegaly with steatosis, bladder wall thickening likely secondary to chronic outlet obstruction prostatomegaly. Ascending aortic aneurysm measuring 5.6 cm, descending thoracic aorta is mildly dilated to 3.1 cm mild esophagitis/gastritis, periesophageal lymphadenopathy. (3) Hypertension: Qualifiers: Hypertension type: primary hypertension Qualified Code(s): I10 - Essential (primary) hypertension Code(s): I10 - Essential (primary) hypertension Status: Acute Assessment and Plan: Patient is on IV metoprolol. -p.r.n. hydralazine (4) Diabetes mellitus with renal manifestation: Code(s): E11.29 - Type 2 diabetes mellitus with other diabetic kidney complication Status: Acute Assessment and Plan: Continue Accu-Cheks and sliding scale insulin q.6 hours (5) BPH (benign prostatic hyperplasia): Code(s): N40.0 - Benign prostatic hyperplasia without lower urinary tract symptoms Status: Acute Assessment and Plan: Patient currently has a purwick catheter -patient does has a history of BPH, it is not have urine output will place a Mckinney catheter Plan DVT prophylaxis: Enoxaparin Stress ulcer prophylaxis: Protonix IV q.12 hours Nutrition: NPO Code Status: Full code Critical Care Time Spent: 47 minutes Discussed with surgeon Due to a high probability of clinically significant, life threatening deterioration, the patient required my highest level of preparedness to intervene emergently and I personally spent this critical care time directly and personally managing the patient. This critical care time included obtaining a history; examining the patient; pulse oximetry; ordering and review of studies; arranging urgent treatment with development of a management plan; evaluation of patient's response to treatment; frequent reassessment; and discussions with other providers. It was exclusive of separately billable procedures and treating other patients and teaching time. Please see Assessment and Plan section and the rest of the note for further information on patient assessment and treatment This dictation may have been done utilizing a voice recognition system. Attempts have been made to correct errors. However, there may be uncorrected grammatical, spelling, and recognitions errors present. 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 He also complained of nausea and vomiting, emesis was bilious. Abdominal pain continued to progress and that brought him to the ED. patient denies any history of small-bowel obstruction. WBC count on admission was 11,000, lactic acid 1.7. CT scan of the abdomen and pelvis showed mid small-bowel obstruction with transition point in the left lateral abdomen, small volume ascites, hepatomegaly with steatosis, bladder wall thickening likely secondary to chronic outlet obstruction prostatomegaly. Ascending aortic aneurysm measuring 5.6 cm, descending thoracic aorta is mildly dilated to 3.1 cm mild esophagitis/gastritis, periesophageal lymphadenopathy surgery was consulted, patient was taken for surgery on 01/18/2025 for high-grade small-bowel obstruction secondary to abdominal adhesions, status post exploratory laparotomy with abdominal adhesiolysis. 01/20/2025: Patient was seen by surgery in the morning, he pulled out his NG tube , Mckinney catheter and IV line. IV was replaced. He was restless at that time. 01/21: Patient eloped alert of the hospital likely secondary to delirium, law enforcement/security brought him back to the hospital. He received Zyprexa and Ativan for his confusional states. Remained combative, was transferred to the ICU for Precedex infusion. Patient seen and examined this morning in the ICU, he is somnolent, currently on Precedex at 0.1 mcg/kg/hr. Hypertensive and tachycardic, patient given metoprolol 5 mg IV x1 with improvement in heart rate and blood pressures. On 4 L oxygen cannula which is in his mouth as he is a mouth breather. Urine output has been adequate, patient on maintenance IV fluid. Does not open his eyes or follow simple Review of Systems 2 Review of Systems: ROS unobtainable: Yes unobtainable due to mental status PMFSH Past Medical History Medical History Anticoagulant long-term use Hx of deep venous thrombosis Intermittent diarrhea Lower GI bleed Colon cancer screening History of mumps History of measles History of chicken pox Spinal stenosis Arm fracture (1958) Normal colonoscopy (06/29/12) 07/19/2012 Surgical History Surgical History History of tonsillectomy (~194) Hx of cholecystectomy (1991) H/O nasal septoplasty (1992) Family History Family History Grandparent Diabetes mellitus Hypertension Cerebrovascular accident Father Hypertension Family history of elevated blood lipids, Onset Age: 89 Family history of cardiovascular disease Cerebrovascular accident Mother Family history of elevated blood lipids, Onset Age: 93 Family history of cardiovascular disease Diabetes mellitus Hypertension Cerebrovascular accident Social History Social History Smoking status: Never smoker Alcohol intake: current Drinks per week: 1 Alcohol use details: occasionnally Substance use: never Substance use type: does not use Do You Feel Safe in your Home?: Yes Lack of Transportation: No Lack of Food: Never True Current Housing: I Have Housing Concerned About Future Housing: No Difficulty Paying Gas/Electric Bills: No Difficulty Paying for Meds: No Currently Unemployed: No Education: Bachelor's Degree Difficulty w/ Childcare or Family Care: No Living arrangements: alone Occupation/Education: retired Gender identity (if verbalized by the patient): Male Spiritual care concerns: No Agree to blood products: Yes Meds Home Medications and Allergies Home Medications ?Medication ?Instructions ?Recorded ?Confirmed ?Type Glucosamine Chondroitin 1 cap PO DAILY 05/02/24 01/18/25 History saw palmetto 450 mg capsule 450 mg PO DAILY 05/02/24 01/18/25 History lisinopril 20 See Rx Instructions .Route 07/25/24 01/18/25 Rx mg-hydrochlorothiazide 25 mg tablet .COMPLEX #90 tabs levothyroxine 25 mcg tablet 25 mcg PO DAILY #90 tabs 08/30/24 01/18/25 Rx doxazosin 8 mg tablet See Rx Instructions .Route 09/13/24 01/18/25 Rx .COMPLEX #90 tabs rivaroxaban 20 mg tablet (Xarelto) See Rx Instructions .Route 09/13/24 01/18/25 Rx .COMPLEX #90 tabs fenofibrate micronized 134 mg See Rx Instructions .Route 09/28/24 01/18/25 Rx capsule .COMPLEX #90 caps triamcinolone acetonide 0.1 % See Rx Instructions .Route 10/03/24 01/18/25 Rx topical cream .COMPLEX #80 grams finasteride 5 mg tablet See Rx Instructions .Route 10/30/24 01/18/25 Rx .COMPLEX #90 tabs metformin 1,000 mg tablet 1,000 mg PO BID #180 tabs 12/12/24 01/18/25 Rx simvastatin 10 mg tablet 10 mg PO DAILY #90 tabs 12/12/24 01/18/25 Rx semaglutide 0.25 mg or 0.5 mg (2 0.5 mg (0.736 mL) subcut WEEKLY #3 12/19/24 01/18/25 Rx mg/3 mL) subcutaneous pen injector mL (Ozempic) metoprolol succinate 25 mg 25 mg PO DAILY #90 tabs 12/28/24 01/18/25 Rx tablet,extended release 24 hr gabapentin 300 mg capsule See Rx Instructions .Route 01/08/25 01/18/25 Rx .COMPLEX #90 caps Allergies Allergy/AdvReac Type Severity Reaction Status Date / Time No Known Drug Allergies Allergy Unknown Verified 01/18/25 17:07 Vital Signs Vital Signs - 24 hr 01/20/25 10:25 01/20/25 11:33 01/20/25 12:00 Temperature 98.1 F Pulse Rate 86 96 103 H Respiratory Rate 20 Blood Pressure 194/101 H Pulse Oximetry 96 Oxygen Delivery 01/20/25 12:36 01/20/25 13:53 01/20/25 15:28 Temperature 98.2 F Pulse Rate 101 H 94 Respiratory Rate 20 Blood Pressure 177/102 H Pulse Oximetry 94 Oxygen Delivery Room Air 01/20/25 15:40 01/20/25 16:00 01/20/25 16:01 Temperature Pulse Rate 98 98 84 Respiratory Rate Blood Pressure Pulse Oximetry Oxygen Delivery 01/20/25 18:09 01/20/25 20:00 01/20/25 20:00 Temperature 98.6 F Pulse Rate 94 58 L Respiratory Rate 20 Blood Pressure 176/95 H Pulse Oximetry 95 Oxygen Delivery Room Air 01/20/25 20:00 01/20/25 23:55 01/21/25 00:00 Temperature 98.9 F Pulse Rate 88 101 H 99 Respiratory Rate 22 H Blood Pressure 155/104 H Pulse Oximetry 96 Oxygen Delivery 01/21/25 02:18 01/21/25 04:00 01/21/25 04:45 Temperature Pulse Rate 144 H 89 92 Respiratory Rate 27 H Blood Pressure Pulse Oximetry Oxygen Delivery 01/21/25 04:45 01/21/25 04:45 01/21/25 05:00 Temperature Pulse Rate 92 92 91 Respiratory Rate 27 H 27 H 26 H Blood Pressure 201/106 H Pulse Oximetry 90 90 Oxygen Delivery Room Air 01/21/25 05:03 01/21/25 05:20 01/21/25 06:00 Temperature Pulse Rate 94 76 Respiratory Rate Blood Pressure Pulse Oximetry 88 L Oxygen Delivery 01/21/25 06:00 01/21/25 06:52 01/21/25 08:00 Temperature 98.8 F 99.2 F Pulse Rate 76 81 96 Respiratory Rate 25 H 25 H 27 H Blood Pressure 182/100 H 191/94 H Pulse Oximetry 93 96 Oxygen Delivery 01/21/25 08:36 Temperature Pulse Rate 120 H Respiratory Rate Blood Pressure Pulse Oximetry Oxygen Delivery Exam 2 Narrative: General: Obese gentleman, currently no acute distress HEENT:? Pupils equal reactive, sclera is clear, nasal cannula in his mouth Neck:? Supple, thick neck Respiratory:? Clear to auscultation on the upper region, coarse breath sounds at bases with decreased air entry Cardiac: S1-S2 normal, regular rate and rhythm Abdomen:? Soft, nontender, obese, protuberant, hypoactive bowel sounds, midline incision with dressing in place Extremities:? Palpable pedal pulses, bilateral lower extremity edema Neuro:? Patient is somnolent, does not open his eyes or follow simple commands Skin:? Abdominal Dressing in place Psych:? Unable to assess at this time Results Labs 01/21/25 05:05 01/21/25 05:05 Labs: Short CBC 01/21/25 Range/Units 05:05 WBC 10.5 H (4.5-10.0) K/mm3 Hgb 13.4 L (14.0-18.0) g/dL Hct 41.7 L (42.0-52.0) % Plt Count 240 (150-375) k/mm3 BMP 01/21/25 05:05 Sodium 142 Potassium 3.2 L Chloride 103 Carbon Dioxide 28 BUN 26 H Creatinine 1.19 Glucose 161 H Calcium 8.9 Liver Function 01/21/25 Range/Units 05:05 Total Bilirubin 1.1 (0.2-1.3) mg/dL AST 56 (17-59) U/L ALT 53 H (6-50) U/L Alkaline Phosphatase 29 L (38-126) U/L Albumin 3.9 (3.5-5.1) g/dL
[2025-01-21 09:56] LABS: Glucose Point of Care 161 mg/dl (65-105)
[2025-01-21] MEDS: POTASSIUM CHLORIDE INJ 40 MEQ in SODIUM CHLORIDE 0.9% IV 500 ML 130 MEQ IVPB (10:54)
[2025-01-21] MEDS: LIDOCAINE 5% PATCH 1 PATCH TRANSDERM (10:57)
[2025-01-21 11:55] LABS: Glucose Point of Care 191 mg/dl (65-105)
--- NOTE | 2025-01-21 11:58 | PC.NURSE ---
Patient bladder scanned at 1158. Greater than 320 mls of residual urine residing in bladder. Orders per MD. Dr. Ellis to insert Mckinney Catheter.
[2025-01-21] MEDS: FUROSEMIDE INJ 40 MG/4 ML VIAL IV PUSH (12:27)
--- NOTE | 2025-01-21 12:50 | P.PNIM_ITS ---
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 Patient received Ativan, Zyprexa. Not combative and agitated so was transferred to the ICU for Precedex infusion. Patient did receive a bolus of the Precedex -currently very somnolent, Precedex at 0.1 mg/kg/hr. -patient is in restraints -bedside sitter in the room -will start small dose Seroquel 25 mg per tube q.12 hours (2) SBO (small bowel obstruction): Code(s): K56.609 - Unspecified intestinal obstruction, unspecified as to partial versus complete obstruction Status: Acute Assessment and Plan: 02/15: Patient was admitted for abdominal pain, small-bowel obstruction on abdominal CT scan -Surgery was consulted, patient was taken for surgery on 01/18/2025 for high- grade small-bowel obstruction secondary to abdominal adhesions, status post exploratory laparotomy with abdominal adhesiolysis. -continue Zosyn per surgery -NG tube in place to low intermittent suction -Reglan, Dulcolax suppository has been ordered per surgery -will discontinue ibuprofen, since patient has chronic kidney disease -also on Mylanta for esophagitis/gastritis -pain control with Tylenol elixir 02/14: CT scan of the abdomen and pelvis showed mid small-bowel obstruction with transition point in the left lateral abdomen, small volume ascites, hepatomegaly with steatosis, bladder wall thickening likely secondary to chronic outlet obstruction prostatomegaly. Ascending aortic aneurysm measuring 5.6 cm, descending thoracic aorta is mildly dilated to 3.1 cm mild esophagitis/gastritis, periesophageal lymphadenopathy. (3) Hypertension: Qualifiers: Hypertension type: primary hypertension Qualified Code(s): I10 - Essential (primary) hypertension Code(s): I10 - Essential (primary) hypertension Status: Acute Assessment and Plan: Patient is on IV metoprolol. -p.r.n. hydralazine (4) Diabetes mellitus with renal manifestation: Code(s): E11.29 - Type 2 diabetes mellitus with other diabetic kidney complication Status: Acute Assessment and Plan: Continue Accu-Cheks and sliding scale insulin q.6 hours (5) BPH (benign prostatic hyperplasia): Code(s): N40.0 - Benign prostatic hyperplasia without lower urinary tract symptoms Status: Acute Assessment and Plan: Patient currently has a purwick catheter -patient does has a history of BPH, it is not have urine output will place a Mckinney catheter Plan patient was found to have High-grade small-bowel obstruction secondary to abdominal adhesions was seen by surgery service had exploratory laparotomy, abdominal adhesiolysis on 01/18, however patient became confused removed his IV, and was wondering in the hospital, patient was brought back to the room, patient was aggressive, transferred to ICU for sedation with Precedex, patient is sedated and unable to provider any ROS. Subjective Date/time seen: 01/21/25 12:50 Interval history: Patient admitted for treatment of SBO and plan for exploratory laparotomy. Patient still hypertensive will increase IV metoprolol to 5 mg scheduled and schedule his IV hydralazine. Patient refusing NG tube but denies ABD pain, distention slightly improved. Patient reported flatulence but still no BM. H&P-Narrative He presents with a few hours' history of central abdominal pain; it is localized; rated 10 in intensity, aggravated by meals/drinks, alleviated by fasting; associated with bilious but non-bloody emesis, malaise, anorexia, chills and rigors. His last BM was days ago; he denies chest pain, dizziness, LOC, flank pain, dysuria, hematuria or [place]. patient was found to have High-grade small-bowel obstruction secondary to abdominal adhesions was seen by surgery service had exploratory laparotomy, abdominal adhesiolysis on 01/18, however patient became confused removed his IV, and was wondering in the hospital, patient was brought back to the room, patient was aggressive, transferred to ICU for sedation with Precedex, patient is sedated and unable to provider any ROS. Exam Narrative: Patient is comfortable, NAD HEENT: NG tube in place LUNGS:CTA ABD: distended Lower extremities: no edema SKIN: nonjaundiced Neuro: Sedated Objective Data Vital Signs Vital Signs: Vital Signs - 24 hr 01/20/25 13:53 01/20/25 15:28 01/20/25 15:40 Temperature 36.8 C Pulse Rate 94 98 Respiratory Rate 20 Blood Pressure 177/102 H Pulse Oximetry 94 Oxygen Delivery Room Air Oxygen Flow Rate Fraction of Inspired Oxygen 01/20/25 16:00 01/20/25 16:01 01/20/25 18:09 Temperature Pulse Rate 98 84 94 Respiratory Rate Blood Pressure Pulse Oximetry Oxygen Delivery Oxygen Flow Rate Fraction of Inspired Oxygen 01/20/25 20:00 01/20/25 20:00 01/20/25 20:00 Temperature 37.0 C Pulse Rate 58 L 88 Respiratory Rate 20 Blood Pressure 176/95 H Pulse Oximetry 95 Oxygen Delivery Room Air Oxygen Flow Rate Fraction of Inspired Oxygen 01/20/25 23:55 01/21/25 00:00 01/21/25 02:18 Temperature 37.2 C Pulse Rate 101 H 99 144 H Respiratory Rate 22 H Blood Pressure 155/104 H Pulse Oximetry 96 Oxygen Delivery Oxygen Flow Rate Fraction of Inspired Oxygen 01/21/25 04:00 01/21/25 04:45 01/21/25 04:45 Temperature Pulse Rate 89 92 92 Respiratory Rate 27 H 27 H Blood Pressure Pulse Oximetry 90 Oxygen Delivery Room Air Oxygen Flow Rate Fraction of Inspired Oxygen 01/21/25 04:45 01/21/25 05:00 01/21/25 05:03 Temperature Pulse Rate 92 91 94 Respiratory Rate 27 H 26 H Blood Pressure 201/106 H Pulse Oximetry 90 Oxygen Delivery Oxygen Flow Rate Fraction of Inspired Oxygen 01/21/25 05:20 01/21/25 06:00 01/21/25 06:00 Temperature 37.1 C Pulse Rate 76 76 Respiratory Rate 25 H Blood Pressure 182/100 H Pulse Oximetry 88 L 93 Oxygen Delivery Oxygen Flow Rate Fraction of Inspired Oxygen 01/21/25 06:52 01/21/25 08:00 01/21/25 08:00 Temperature 37.3 C Pulse Rate 81 96 89 Respiratory Rate 25 H 27 H 26 H Blood Pressure 191/94 H Pulse Oximetry 96 Oxygen Delivery Oxygen Flow Rate Fraction of Inspired Oxygen 01/21/25 08:00 01/21/25 08:36 01/21/25 10:00 Temperature Pulse Rate 120 H 76 Respiratory Rate 28 H Blood Pressure Pulse Oximetry 94 Oxygen Delivery Nasal Cannula Oxygen Flow Rate 4 Fraction of Inspired Oxygen 01/21/25 10:00 01/21/25 12:00 01/21/25 12:00 Temperature 37.0 C 36.3 C L Pulse Rate 76 82 84 Respiratory Rate 28 H 31 H 31 H Blood Pressure 135/68 150/81 H Pulse Oximetry 95 92 Oxygen Delivery Oxygen Flow Rate Fraction of Inspired Oxygen 01/21/25 12:00 01/21/25 12:31 01/21/25 12:33 Temperature Pulse Rate Respiratory Rate Blood Pressure Pulse Oximetry 92 91 92 Oxygen Delivery Nasal Cannula High Flow Therapy with Na High Flow Therapy with Na Oxygen Flow Rate 6 40 40 Fraction of Inspired Oxygen 65 65 01/21/25 12:38 Temperature Pulse Rate Respiratory Rate Blood Pressure Pulse Oximetry 93 Oxygen Delivery High Flow Therapy with Na Oxygen Flow Rate 40 Fraction of Inspired Oxygen 65 Intake/Output Intake/Output: Intake & Output 01/18/25 01/19/25 01/20/25 01/21/25 23:59 23:59 23:59 23:59 Intake Total 2458.3 1000 2272.5 1041.3 Output Total 400 2400 1400 250 Balance 2058.3 -1400 872.5 791.3 Meds/Results Medications: Active Medications Generic Name Dose Route Start Last Admin Trade Name Freq PRN Reason Stop Dose Admin Acetaminophen 650 mg 01/21/25 10:59 Acetaminophen Elixir 325 Mg/10.15 Ml Udc PO Q6H PRN Mild Pain (1-3) or Fever Al Hydrox/Mg Hydrox/Simethicone 30 ml 01/18/25 19:20 01/21/25 05:49 Mag Hydrox/Al Hydrox/Simeth 30 Ml Udc PO 30 ml Q8HR A[facility]INE Administration Bisacodyl 10 mg 01/20/25 09:00 01/21/25 09:11 Bisacodyl 10 Mg Suppository RECTAL 10 mg QAM AUGUSTINE Administration Dextrose 12.5 gm 01/18/25 15:51 Dextrose 50% 25 Gm/50 Ml Syringe IV PUSH PRN PRN Hypoglycemia Protocol Enoxaparin Sodium 40 mg 01/19/25 11:45 01/21/25 09:11 Enoxaparin 40 Mg/0.4 Ml Syringe SUB-Q 40 mg DAILY [facility]INE Administration Glucagon 1 mg 01/18/25 15:51 Glucagon For Inj 1 Mg Vial IM PRN PRN Hypoglycemia Protocol Glucose 15 gm 01/18/25 15:51 Glucose Oral Gel 15 Gm Of Glucse In 37.5 Gm Tube PO PRN PRN Hypoglycemia Protocol Hydralazine HCl 20 mg 01/21/25 10:00 01/21/25 09:13 Hydralazine Hcl 20 Mg/Ml Vial IV PUSH 20 mg Q4H A[facility]INE Administration Piperacillin/Tazobactam/Dextrose 3.375 gm in 50 mls @ 100 mls/hr 01/17/25 02:00 01/21/25 09:42 Zosyn 3.375 Gm/Ns 50 Ml IVPB Infused Q6H [facility] Infusion Dextrose 1,000 mls @ 100 mls/hr 01/18/25 15:51 Dextrose 5% 1,000 Ml IVPB PRN PRN Hypoglycemia Protocol Potassium Chloride/Sodium Chloride 1,000 mls @ 50 mls/hr 01/19/25 11:45 01/21/25 12:00 Kcl 20 Meq/Ns IV CONT 50 mls/hr .Q20H [facility]INE Infusion Dexmedetomidine HCl 400 mcg in 100 mls @ 0 mls/hr 01/21/25 03:40 01/21/25 12:00 Precedex 400 Mcg/100 Ml IV CONT 0 mcg/kg/hr .Q0M AUG[facility]INE 0 mls/hr Titration Protocol Potassium Chloride 40 meq/ 520 mls @ 130 mls/hr 01/21/25 09:56 01/21/25 10:54 Sodium Chloride IVPB 01/21/25 13:55 130 mls/hr ONCE ONE Administration Insulin Aspart 2 - 5 units 01/21/25 12:00 01/21/25 12:12 Insulin Aspart (*Bkc) 100 Units/Ml SUB-Q Not Given Q6H [facility]INE Protocol Lidocaine 1 patch 01/19/25 13:35 01/21/25 10:57 Lidocaine 5% Patch TRANSDERM 1 patch DAILY [facility]INE Administration Melatonin 3 mg 01/19/25 22:39 01/19/25 23:16 Melatonin 3 Mg Tablet PO 3 mg HS PRN Administration Insomnia Metoclopramide HCl 10 mg 01/19/25 00:00 01/21/25 11:02 Metoclopramide Hcl Inj 10 Mg/2 Ml Vial IV PUSH 10 mg Q6HR [facility]INE Administration Metoprolol Tartrate 5 mg 01/20/25 09:10 01/21/25 05:03 Metoprolol Tartrate Inj 5 Mg/5 Ml Vial IV PUSH 5 mg Q6HR [facility]INE Administration Ondansetron HCl 4 mg 01/17/25 19:07 01/17/25 22:44 Ondansetron Inj 4 Mg/2 Ml Vial IV PUSH 4 mg Q4H PRN Administration Nausea Pantoprazole Sodium 40 mg 01/17/25 22:30 01/21/25 09:11 Pantoprazole Sodium Iv 40 Mg Vial IV PUSH 40 mg Q12HR [facility]INE Administration Quetiapine Fumarate 25 mg 01/21/25 21:00 Quetiapine Fumarate 25 Mg Tablet PO Q12HR [facility] Radiology Results: ITS Impressions Abdomen/Pelvis CT 01/17/25 18:07 IMPRESSION: Ascending aortic aneurysm measuring up to 5.6 cm. The descending thoracic aorta is mildly dilated to 3.1 cm. Consider nonemergent but timely outpatient CT angiography of the chest and appropriate referral for monitoring/potential intervention. Mild esophagitis/gastritis. Periesophageal lymphadenopathy. Hepatomegaly with steatosis. Mid small bowel obstruction, transition point in the left lateral abdomen. Small volume ascites. Bladder wall thickening, likely secondary to chronic outlet obstruction from prostatomegaly. Small Bowel X-Ray 01/18/25 15:02 IMPRESSION: 1. Small bowel obstruction. Chest X-Ray 01/21/25 11:13 Impression: Central congestive change and probable mild bibasilar pulmonary edema. Correlate clinically for pneumonia. Cardiomegaly. NG tube in place. Abdomen X-Ray 01/21/25 11:14 Impression: Postoperative ileus versus possibly small bowel obstruction. NG tube in place. Labs Labs: Laboratory Results - last 24 hr 01/20/25 01/20/25 01/21/25 16:51 20:07 05:05 WBC 10.5 H RBC 4.80 Hgb 13.4 L Hct 41.7 L MCV 86.9 MCH 27.9 MCHC 32.1 RDW 13.9 Plt Count 240 MPV 9.2 Immature Gran % (Auto) 0.6 H Neut % (Auto) 80.1 H Lymph % (Auto) 7.9 L [place] % (Auto) 10.2 H Eos % (Auto) 0.9 Baso % (Auto) 0.3 Lymph # (Auto) 0.83 L [place] # (Auto) 1.1 H Eos # (Auto) 0.1 Baso # (Auto) 0.0 Abs Immat Gran (auto) 0.06 H Absolute Neuts (auto) 8.4 H Absolute Nucleated RBC 0.000 Nucleated RBC % 0.0 Sodium 142 Potassium 3.2 L Chloride 103 Carbon Dioxide 28 Anion Gap 11 BUN 26 H Creatinine 1.19 Estim Creat Clear Calc 58 Estimated GFR 59 Glucose 161 H POC Capillary Glucose 164 H 155 H Calcium 8.9 Total Bilirubin 1.1 AST 56 ALT 53 H Alkaline Phosphatase 29 L Total Protein 8.0 Albumin 3.9 Nasal MRSA (PCR) 01/21/25 01/21/25 01/21/25 06:53 09:10 11:44 WBC RBC Hgb Hct MCV MCH MCHC RDW Plt Count MPV Immature Gran % (Auto) Neut % (Auto) Lymph % (Auto) [place] % (Auto) Eos % (Auto) Baso % (Auto) Lymph # (Auto) [place] # (Auto) Eos # (Auto) Baso # (Auto) Abs Immat Gran (auto) Absolute Neuts (auto) Absolute Nucleated RBC Nucleated RBC % Sodium Potassium Chloride Carbon Dioxide Anion Gap BUN Creatinine Estim Creat Clear Calc Estimated GFR Glucose POC Capillary Glucose 161 H 191 H Calcium Total Bilirubin AST ALT Alkaline Phosphatase Total Protein Albumin Nasal MRSA (PCR) Not detected
--- NOTE | 2025-01-21 15:02 | P.PNGS_ITS ---
Progress Note: A&P Assessment and Plan (1) SBO (small bowel obstruction): Code(s): K56.609 - Unspecified intestinal obstruction, unspecified as to partial versus complete obstruction Status: Acute Assessment and Plan: Postop day 3. Wound intact and healing. Agree with current management. (2) Adynamic ileus: Code(s): K56.0 - Paralytic ileus Status: Acute Assessment and Plan: No bowel sounds and ileus evident on plain films. Not surprising as patient has pulled out his nasogastric tube twice and his delirium with subsequent sedation contribute to prolonged ileus. Continue nasogastric tube, IV fluids, NPO and medical management with sedation. (3) Delirium: Code(s): R41.0 - Disorientation, unspecified Status: Acute Assessment and Plan: Currently sedated. Management per managed care specialist, hospitalist service. 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 Hold off on therapeutic dose for now (5) Type 2 diabetes mellitus with diabetic nephropathy: Qualifiers: Diabetes mellitus off premise service representative insulin use: without long-term use Qualified Code(s): E11.21 - Type 2 diabetes mellitus with diabetic nephropathy Code(s): E11.21 - Type 2 diabetes mellitus with diabetic nephropathy Status: Chronic (6) Morbid obesity with body mass index (BMI) of 40.0 or higher: Code(s): E66.01 - Morbid (severe) obesity due to excess calories Status: Chronic (7) Ascending aortic aneurysm: Qualifiers: Presence of rupture: without rupture Qualified Code(s): I71.21 - Aneurysm of the ascending aorta, without rupture Code(s): I71.21 - Aneurysm of the ascending aorta, without rupture Status: Chronic Subjective Subjective Date/Time Seen: 01/21/25 15:02 Post Op day: 3 Patient reports: no flatus, no bowel movement, afebrile and other (Patient sedated in the ICU due to episode of delirium last night) Interval history: Patient developed delirium last night to the point that he dressed himself and escaped. He got as far as the [place] behind the hospital when security services were able to convince him to return. He is now in the ICU with sedation and a sitter. Discussed with Dr. Ellis Review of Systems Review of Systems: ROS unobtainable: Yes unobtainable due to mental status Exam Const: General: patient obtunded Nutritional Appearance: obese Orientation/consciousness: patient obtunded GI: Inspection: no abdominal wall ecchymosis, incision (Dry and healing well) and obesity GI Palp: Yes Soft to palpation and No Tenderness to palpation present (GI) (No apparent tenderness but patient heavily sedated) Auscultation: abnormal bowel sounds Extrem: General: no calf tenderness and no edema Objective Data Vital Signs Vital Signs: Vital Signs - 24 hr 01/20/25 15:28 01/20/25 15:40 01/20/25 16:00 Temperature 36.8 C Pulse Rate 94 98 98 Respiratory Rate 20 Blood Pressure 177/102 H Pulse Oximetry 94 Oxygen Delivery Oxygen Flow Rate Fraction of Inspired Oxygen 01/20/25 16:01 01/20/25 18:09 01/20/25 20:00 Temperature 37.0 C Pulse Rate 84 94 58 L Respiratory Rate 20 Blood Pressure 176/95 H Pulse Oximetry 95 Oxygen Delivery Oxygen Flow Rate Fraction of Inspired Oxygen 01/20/25 20:00 01/20/25 20:00 01/20/25 23:55 Temperature 37.2 C Pulse Rate 88 101 H Respiratory Rate 22 H Blood Pressure 155/104 H Pulse Oximetry 96 Oxygen Delivery Room Air Oxygen Flow Rate Fraction of Inspired Oxygen 01/21/25 00:00 01/21/25 02:18 01/21/25 04:00 Temperature Pulse Rate 99 144 H 89 Respiratory Rate Blood Pressure Pulse Oximetry Oxygen Delivery Oxygen Flow Rate Fraction of Inspired Oxygen 01/21/25 04:45 01/21/25 04:45 01/21/25 04:45 Temperature Pulse Rate 92 92 92 Respiratory Rate 27 H 27 H 27 H Blood Pressure 201/106 H Pulse Oximetry 90 90 Oxygen Delivery Room Air Oxygen Flow Rate Fraction of Inspired Oxygen 01/21/25 05:00 01/21/25 05:03 01/21/25 05:20 Temperature Pulse Rate 91 94 Respiratory Rate 26 H Blood Pressure Pulse Oximetry 88 L Oxygen Delivery Oxygen Flow Rate Fraction of Inspired Oxygen 01/21/25 06:00 01/21/25 06:00 01/21/25 06:52 Temperature 37.1 C Pulse Rate 76 76 81 Respiratory Rate 25 H 25 H Blood Pressure 182/100 H Pulse Oximetry 93 Oxygen Delivery Oxygen Flow Rate Fraction of Inspired Oxygen 01/21/25 08:00 01/21/25 08:00 01/21/25 08:00 Temperature 37.3 C Pulse Rate 96 89 Respiratory Rate 27 H 26 H Blood Pressure 191/94 H Pulse Oximetry 96 94 Oxygen Delivery Nasal Cannula Oxygen Flow Rate 4 Fraction of Inspired Oxygen 01/21/25 08:36 01/21/25 10:00 01/21/25 10:00 Temperature 37.0 C Pulse Rate 120 H 76 76 Respiratory Rate 28 H 28 H Blood Pressure 135/68 Pulse Oximetry 95 Oxygen Delivery Oxygen Flow Rate Fraction of Inspired Oxygen 01/21/25 12:00 01/21/25 12:00 01/21/25 12:00 Temperature 36.3 C L Pulse Rate 82 84 Respiratory Rate 31 H 31 H Blood Pressure 150/81 H Pulse Oximetry 92 92 Oxygen Delivery Nasal Cannula Oxygen Flow Rate 6 Fraction of Inspired Oxygen 01/21/25 12:31 01/21/25 12:33 01/21/25 12:38 Temperature Pulse Rate Respiratory Rate Blood Pressure Pulse Oximetry 91 92 93 Oxygen Delivery High Flow Therapy with Na High Flow Therapy with Na High Flow Therapy with Na Oxygen Flow Rate 40 40 40 Fraction of Inspired Oxygen 65 65 65 01/21/25 14:00 01/21/25 14:00 01/21/25 14:58 Temperature 36.9 C Pulse Rate 75 75 Respiratory Rate 27 H 27 H Blood Pressure 144/88 H Pulse Oximetry 96 100 Oxygen Delivery High Flow Therapy with Na Oxygen Flow Rate 40 Fraction of Inspired Oxygen 60 Intake/Output Intake/Output: Intake & Output 01/18/25 01/19/25 01/20/25 01/21/25 23:59 23:59 23:59 23:59 Intake Total 2458.3 1000 2272.5 1041.3 Output Total 400 2400 1400 250 Balance 2058.3 -1400 872.5 791.3 Meds/Results Medications: Active Medications Generic Name Dose Route Start Last Admin Trade Name Freq PRN Reason Stop Dose Admin Acetaminophen 650 mg 01/21/25 10:59 Acetaminophen Elixir 325 Mg/10.15 Ml Udc PO Q6H PRN Mild Pain (1-3) or Fever Al Hydrox/Mg Hydrox/Simethicone 30 ml 01/18/25 19:20 01/21/25 14:44 Mag Hydrox/Al Hydrox/Simeth 30 Ml Udc PO 30 ml Q8HR [facility]INE Administration Bisacodyl 10 mg 01/20/25 09:00 01/21/25 09:11 Bisacodyl 10 Mg Suppository RECTAL 10 mg QAM AUG[facility]INE Administration Dextrose 12.5 gm 01/18/25 15:51 Dextrose 50% 25 Gm/50 Ml Syringe IV PUSH PRN PRN Hypoglycemia Protocol Enoxaparin Sodium 40 mg 01/19/25 11:45 01/21/25 09:11 Enoxaparin 40 Mg/0.4 Ml Syringe SUB-Q 40 mg DAILY A[facility]INE Administration Glucagon 1 mg 01/18/25 15:51 Glucagon For Inj 1 Mg Vial IM PRN PRN Hypoglycemia Protocol Glucose 15 gm 01/18/25 15:51 Glucose Oral Gel 15 Gm Of Glucse In 37.5 Gm Tube PO PRN PRN Hypoglycemia Protocol Hydralazine HCl 20 mg 01/21/25 10:00 01/21/25 14:48 Hydralazine Hcl 20 Mg/Ml Vial IV PUSH 20 mg Q4H [facility]UG[facility]INE Administration Piperacillin/Tazobactam/Dextrose 3.375 gm in 50 mls @ 100 mls/hr 01/17/25 02:00 01/21/25 14:44 Zosyn 3.375 Gm/Ns 50 Ml IVPB 100 mls/hr Q6H [facility]INE Administration Dextrose 1,000 mls @ 100 mls/hr 01/18/25 15:51 Dextrose 5% 1,000 Ml IVPB PRN PRN Hypoglycemia Protocol Potassium Chloride/Sodium Chloride 1,000 mls @ 50 mls/hr 01/19/25 11:45 01/21/25 12:00 Kcl 20 Meq/Ns IV CONT 50 mls/hr .Q20H [facility]INE Infusion Dexmedetomidine HCl 400 mcg in 100 mls @ 0 mls/hr 01/21/25 03:40 01/21/25 14: 00 Precedex 400 Mcg/100 Ml IV CONT 0 mcg/kg/hr .Q0M AUG[facility]INE 0 mls/hr Titration Protocol Insulin Aspart 2 - 5 units 01/21/25 12:00 01/21/25 12:12 Insulin Aspart (*Bkc) 100 Units/Ml SUB-Q Not Given Q6H [facility]INE Protocol Lidocaine 1 patch 01/19/25 13:35 01/21/25 10:57 Lidocaine 5% Patch TRANSDERM 1 patch DAILY [facility]INE Administration Melatonin 3 mg 01/19/25 22:39 01/19/25 23:16 Melatonin 3 Mg Tablet PO 3 mg HS PRN Administration Insomnia Metoclopramide HCl 10 mg 01/19/25 00:00 01/21/25 11:02 Metoclopramide Hcl Inj 10 Mg/2 Ml Vial IV PUSH 10 mg Q6HR [facility]UG[facility]INE Administration Metoprolol Tartrate 5 mg 01/20/25 09:10 01/21/25 12:00 Metoprolol Tartrate Inj 5 Mg/5 Ml Vial IV PUSH 5 mg Q6HR AUG[facility]INE Administration Ondansetron HCl 4 mg 01/17/25 19:07 01/17/25 22:44 Ondansetron Inj 4 Mg/2 Ml Vial IV PUSH 4 mg Q4H PRN Administration Nausea Pantoprazole Sodium 40 mg 01/17/25 22:30 01/21/25 09:11 Pantoprazole Sodium Iv 40 Mg Vial IV PUSH 40 mg Q12HR [facility]UG[facility]INE Administration Quetiapine Fumarate 25 mg 01/21/25 21:00 Quetiapine Fumarate 25 Mg Tablet PO Q12HR [facility] Radiology Results: ITS Impressions Abdomen/Pelvis CT 01/17/25 18:07 IMPRESSION: Ascending aortic aneurysm measuring up to 5.6 cm. The descending thoracic aorta is mildly dilated to 3.1 cm. Consider nonemergent but timely outpatient CT angiography of the chest and appropriate referral for monitoring/potential intervention. Mild esophagitis/gastritis. Periesophageal lymphadenopathy. Hepatomegaly with steatosis. Mid small bowel obstruction, transition point in the left lateral abdomen. Small volume ascites. Bladder wall thickening, likely secondary to chronic outlet obstruction from prostatomegaly. Small Bowel X-Ray 01/18/25 15:02 IMPRESSION: 1. Small bowel obstruction. Chest X-Ray 01/21/25 11:13 Impression: Central congestive change and probable mild bibasilar pulmonary edema. Correlate clinically for pneumonia. Cardiomegaly. NG tube in place. Abdomen X-Ray 01/21/25 11:14 Impression: Postoperative ileus versus possibly small bowel obstruction. NG tube in place. Labs Labs: Laboratory Results - last 24 hr 01/20/25 01/20/25 01/21/25 16:51 20:07 05:05 WBC 10.5 H RBC 4.80 Hgb 13.4 L Hct 41.7 L MCV 86.9 MCH 27.9 MCHC 32.1 RDW 13.9 Plt Count 240 MPV 9.2 Immature Gran % (Auto) 0.6 H Neut % (Auto) 80.1 H Lymph % (Auto) 7.9 L [place] % (Auto) 10.2 H Eos % (Auto) 0.9 Baso % (Auto) 0.3 Lymph # (Auto) 0.83 L [place] # (Auto) 1.1 H Eos # (Auto) 0.1 Baso # (Auto) 0.0 Abs Immat Gran (auto) 0.06 H Absolute Neuts (auto) 8.4 H Absolute Nucleated RBC 0.000 Nucleated RBC % 0.0 Sodium 142 Potassium 3.2 L Chloride 103 Carbon Dioxide 28 Anion Gap 11 BUN 26 H Creatinine 1.19 Estim Creat Clear Calc 58 Estimated GFR 59 Glucose 161 H POC Capillary Glucose 164 H 155 H Calcium 8.9 Total Bilirubin 1.1 AST 56 ALT 53 H Alkaline Phosphatase 29 L Total Protein 8.0 Albumin 3.9 Nasal MRSA (PCR) 01/21/25 01/21/25 01/21/25 06:53 09:10 11:44 WBC RBC Hgb Hct MCV MCH MCHC RDW Plt Count MPV Immature Gran % (Auto) Neut % (Auto) Lymph % (Auto) [place] % (Auto) Eos % (Auto) Baso % (Auto) Lymph # (Auto) [place] # (Auto) Eos # (Auto) Baso # (Auto) Abs Immat Gran (auto) Absolute Neuts (auto) Absolute Nucleated RBC Nucleated RBC % Sodium Potassium Chloride Carbon Dioxide Anion Gap BUN Creatinine Estim Creat Clear Calc Estimated GFR Glucose POC Capillary Glucose 161 H 191 H Calcium Total Bilirubin AST ALT Alkaline Phosphatase Total Protein Albumin Nasal MRSA (PCR) Not detected Imaging Attestation: I personally reviewed and interpreted this imaging study as follows: (Abdominal films) My impression: Nasogastric tube in good position, adynamic ileus Radiologist's impression: Same
[2025-01-21] MEDS: KCL 20MEQ/0.9% SOD CHL 1,000 ML 50 ML IV CONT (18:20)
[2025-01-21 18:45] LABS: Glucose Point of Care 121 mg/dl (65-105)
[2025-01-21] MEDS: QUEtiapine FUMARATE 25 MG TABLET PO (20:36)
[2025-01-21 23:33] LABS: Glucose Point of Care 136 mg/dl (65-105)
[2025-01-22] VITALS (26 sets, daily range): BP systolic 98–194; BP diastolic 64–104; PULSE 57–136; RESP 14–27; TEMP 37.2–37.7; O2SAT 91–98
[2025-01-22] MEDS: METOPROLOL TARTRATE INJ 5 MG/5 ML VIAL IV PUSH ×3 (00:11→22:36)
[2025-01-22] MEDS: METOCLOPRAMIDE HCL INJ 10 MG/2 ML VIAL IV PUSH ×5 (00:11→23:57)
[2025-01-22] MEDS: dexmedeTOMIDine 400 MCG/100 ML 400 MCG/100 ML BAG 6.65 MCG IV CONT (02:00)
[2025-01-22] MEDS: hydrALAZINE HCL 20 MG/ML VIAL IV PUSH ×3 (02:12→09:23)
[2025-01-22] MEDS: PIPERACILLN/TAZ 3.375GM/NS50ML 3.375 GM/50 ML BAG IVPB ×4 (02:12→21:24)
[2025-01-22 04:03] LABS: Alanine Aminotransferase 78 U/L (6-50); Albumin Level 3.4 g/dL (3.5-5.1); Alkaline Phosphatase 22 U/L (38-126); Anion Gap 11 mmol/L (4-12); Aspartate Amino Transferase 81 U/L (17-59); Bilirubin,Total 1.1 mg/dL (0.2-1.3); Blood Urea Nitrogen 35 mg/dL (9-20); Calcium 8.5 mg/dL (8.4-10.2); Carbon Dioxide 27 mmol/L (22-30); Chloride 107 mmol/L (98-107); Estimated CRCL calculation 57 ml/min; Estimated Glomerular Filt Rate 59; Glucose 152 mg/dL (65-110); Magnesium 2.4 mg/dL (1.6-2.3); Phosphorus 3.3 mg/dL (2.5-4.5); Potassium 3.5 mmol/L (3.4-5.0); Sodium 145 mmol/L (137-145)
[2025-01-22] MEDS: MAG HYDROX/AL HYDROX/SIMETH 30 ML UDC PO ×3 (05:06→21:24)
[2025-01-22 06:01] LABS: Basophils Percent Auto 0.1 % (0.2-1.2); Eosinophils Absolute Auto 0.1 K/mm3 (0-0.3); Eosinophils Percent Auto 1.3 % (0-4.4); Hematocrit 43.6 % (42.0-52.0); Hemoglobin 13.4 g/dL (14.0-18.0); Immature Granulocyte Absolute 0.05 K/mm3 (0.00-0.031); Immature Granulocyte Percent A 0.5 % (0-0.5); Lymphocytes Absolute Auto 0.83 K/mm3 (0.9-3.2); Lymphocytes Percent Auto 7.7 % (18.3-44.2); Mean Corpuscular HGB Conc 30.7 g/dl (32-36); Mean Corpuscular Hemoglobin 27.5 pg (26-34); Mean Corpuscular Volume 89.3 fl (80-100); Mean Platelet Volume 9.2 fl (7.4-10.4); Monocytes Absolute Auto 1.1 K/mm3 (0.1-0.6); Monocytes Percent Auto 10.1 % (2.6-8.5); Neutrophils Absolute Auto 8.7 K/mm3 (1.3-6.7); Neutrophils Percent Auto 80.3 % (45.5-73.1); Platelet Count Result 244 k/mm3 (150-375); Red Blood Count 4.88 M/mm3 (4.6-6.20); White Blood Count 10.8 K/mm3 (4.5-10.0)
[2025-01-22] MEDS: ENOXAPARIN 40 MG/0.4 ML SYRINGE SUB-Q (08:20)
[2025-01-22] MEDS: PANTOPRAZOLE SODIUM IV 40 MG VIAL IV PUSH ×2 (08:21→21:24)
[2025-01-22] MEDS: BISACODYL 10 MG SUPPOSITORY RECTAL (08:21)
[2025-01-22] MEDS: LIDOCAINE 5% PATCH 1 PATCH TRANSDERM (08:21)
[2025-01-22] MEDS: KCL 40 MEQ/WATER 100 ML 100 ML 25 ML IVPB (08:22)
[2025-01-22] MEDS: QUEtiapine FUMARATE 25 MG TABLET PO ×2 (09:23→21:24)
[2025-01-22] MEDS: niCARdipine 20 MG/200 ML 20 MG/200 ML BAG 50 MG IV CONT ×2 (11:54→15:43)
[2025-01-22 12:11] LABS: Glucose Point of Care 133 mg/dl (65-105)
--- NOTE | 2025-01-22 12:13 | P.PNGS_ITS ---
Progress Note: A&P Assessment and Plan (1) SBO (small bowel obstruction): Code(s): K56.609 - Unspecified intestinal obstruction, unspecified as to partial versus complete obstruction Status: Acute Assessment and Plan: Postop day 4 following exploratory laparotomy, adhesiolysis. Incision healing well. Awaiting return of bowel function. Continue NG tube decompression, bowel rest, and IV fluids. (2) Adynamic ileus: Code(s): K56.0 - Paralytic ileus Status: Acute Assessment and Plan: Postoperative ileus, which is not unexpected. He has pulled his NG tube out multiple times since surgery due to his delirium. Continue NG tube, bowel rest, and IV fluids. Dulcolax suppository given this am. Continue to monitor electrolytes, potassium being replaced. He is currently sedated in the ICU due to his delirium and agitation. (3) Delirium: Code(s): R41.0 - Disorientation, unspecified Status: Acute Assessment and Plan: Currently sedated. Management per customer assistant, hospitalist service. 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 Currently on prophylactic dose of Lovenox. (5) Type 2 diabetes mellitus with diabetic nephropathy: Qualifiers: Diabetes mellitus senior living insulin use: without continuous churn buttermaker use Qualified Code(s): E11.21 - Type 2 diabetes mellitus with diabetic nephropathy Code(s): E11.21 - Type 2 diabetes mellitus with diabetic nephropathy Status: Chronic (6) Morbid obesity with body mass index (BMI) of 40.0 or higher: Code(s): E66.01 - Morbid (severe) obesity due to excess calories Status: Chronic (7) Ascending aortic aneurysm: Qualifiers: Presence of rupture: without rupture Qualified Code(s): I71.21 - Aneurysm of the ascending aorta, without rupture Code(s): I71.21 - Aneurysm of the ascending aorta, without rupture Status: Chronic Plan I have discussed the patient's case and plan of care with Dr. Gonsales. Subjective Subjective Date/Time Seen: 01/22/25 09:13 Post Op day: 4 (Exploratory laparotomy, abdominal adhesiolysis) Interval history: Patient in the ICU on Precedex infusion after an episode of agitation and confusion over the weekend that lead to him pulling out all his lines and attempting to leave the hospital. He is oriented x 3 today and his NG tube was replaced. He denies any abdominal pain. He cannot recall if he has had any BMs or flatus. Per nursing, no BMs since surgery but [facility] shift [facility] nurse did report some flatus last night. The nurse also gave him a dulcolax suppository this morning. Review of Systems Review of Systems: ROS unobtainable: Yes other (limited due to confusion) Exam Const: General: comfortable and no acute distress Orientation/consciousness: patient oriented x3 GI: Inspection: distended and incision (dry and danilo intact, no erythema) GI Palp: Yes Soft to palpation, Yes Tenderness to palpation present (GI) (expected tenderness near the incision), No Guarding due to palpation present (GI) and No Rebound tenderness present Auscultation: Hypoactive bowel sounds present Urinary Catheter: Urinary Catheter: patent and draining and urine clear Objective Data Vital Signs Vital Signs: Vital Signs - 24 hr 01/21/25 12:31 01/21/25 12:33 01/21/25 12:38 Temperature Pulse Rate Respiratory Rate Blood Pressure Pulse Oximetry 91 92 93 Oxygen Delivery High Flow Therapy with Na High Flow Therapy with Na High Flow Therapy with Na Oxygen Flow Rate 40 40 40 Fraction of Inspired Oxygen 65 65 65 01/21/25 14:00 01/21/25 14:00 01/21/25 14:00 Temperature 98.5 F Pulse Rate 75 75 76 Respiratory Rate 27 H 27 H Blood Pressure 144/88 H Pulse Oximetry 96 Oxygen Delivery Oxygen Flow Rate Fraction of Inspired Oxygen 01/21/25 14:58 01/21/25 14:58 01/21/25 15:20 Temperature Pulse Rate 77 Respiratory Rate 26 H Blood Pressure Pulse Oximetry 100 100 100 Oxygen Delivery High Flow Therapy with Na High Flow Therapy with Na High Flow Therapy with Na Oxygen Flow Rate 40 40 40 Fraction of Inspired Oxygen 60 60 55 01/21/25 16:00 01/21/25 16:00 01/21/25 16:00 Temperature 100.2 F H Pulse Rate 79 77 Respiratory Rate 31 H 30 H 33 H Blood Pressure 174/96 H Pulse Oximetry 99 98 Oxygen Delivery High Flow Therapy with Na Oxygen Flow Rate 40 Fraction of Inspired Oxygen 50 01/21/25 16:00 01/21/25 16:54 01/21/25 18:00 Temperature Pulse Rate 77 76 77 Respiratory Rate 32 H 27 H Blood Pressure Pulse Oximetry 98 Oxygen Delivery High Flow Therapy with Na Oxygen Flow Rate 40 Fraction of Inspired Oxygen 50 01/21/25 18:00 01/21/25 18:00 01/21/25 18:20 Temperature 101 F H Pulse Rate 78 75 80 Respiratory Rate 31 H Blood Pressure 163/90 H Pulse Oximetry 99 Oxygen Delivery Oxygen Flow Rate Fraction of Inspired Oxygen 01/21/25 18:33 01/21/25 20:00 01/21/25 20:00 Temperature Pulse Rate 83 Respiratory Rate 31 H 28 H 28 H Blood Pressure Pulse Oximetry 99 96 Oxygen Delivery High Flow Therapy with Na High Flow Therapy with Na Oxygen Flow Rate 40 40 Fraction of Inspired Oxygen 45 45 01/21/25 20:00 01/21/25 20:00 01/21/25 21:51 Temperature 101 F H Pulse Rate 78 72 77 Respiratory Rate 31 H 22 H Blood Pressure 168/90 H Pulse Oximetry 95 98 Oxygen Delivery High Flow Therapy with Na Oxygen Flow Rate 40 Fraction of Inspired Oxygen 50 01/21/25 22:00 01/21/25 22:00 01/21/25 22:00 Temperature 100.6 F H Pulse Rate 79 81 81 Respiratory Rate 30 H 22 H Blood Pressure 171/81 H Pulse Oximetry 96 Oxygen Delivery Oxygen Flow Rate Fraction of Inspired Oxygen 01/21/25 22:41 01/22/25 00:00 01/22/25 00:00 Temperature Pulse Rate 81 73 Respiratory Rate 30 H 27 H Blood Pressure Pulse Oximetry 97 Oxygen Delivery High Flow Therapy with Na Oxygen Flow Rate 40 Fraction of Inspired Oxygen 45 01/22/25 00:00 01/22/25 00:00 01/22/25 00:11 Temperature 99.7 F H Pulse Rate 71 71 71 Respiratory Rate 27 H 27 H Blood Pressure 162/78 H Pulse Oximetry 97 Oxygen Delivery Oxygen Flow Rate Fraction of Inspired Oxygen 01/22/25 02:00 01/22/25 02:00 01/22/25 02:00 Temperature Pulse Rate 59 L 59 L 64 Respiratory Rate 25 H 25 H Blood Pressure Pulse Oximetry Oxygen Delivery Oxygen Flow Rate Fraction of Inspired Oxygen 01/22/25 02:00 01/22/25 04:00 01/22/25 04:00 Temperature 99.8 F H Pulse Rate 64 62 Respiratory Rate 23 H 24 H Blood Pressure 155/90 H Pulse Oximetry 95 96 Oxygen Delivery High Flow Therapy with Na Oxygen Flow Rate 40 Fraction of Inspired Oxygen 45 01/22/25 04:00 01/22/25 04:00 01/22/25 05:06 Temperature 99.5 F Pulse Rate 60 60 68 Respiratory Rate 24 H 24 H Blood Pressure 145/86 H Pulse Oximetry 96 Oxygen Delivery Oxygen Flow Rate Fraction of Inspired Oxygen 01/22/25 06:00 01/22/25 06:00 01/22/25 06:00 Temperature 99.5 F Pulse Rate 57 L 57 L 57 L Respiratory Rate 24 H 24 H Blood Pressure 151/78 H Pulse Oximetry 97 Oxygen Delivery Oxygen Flow Rate Fraction of Inspired Oxygen 01/22/25 07:00 01/22/25 08:00 01/22/25 10:00 Temperature 99.5 F 99.5 F Pulse Rate 63 73 67 Respiratory Rate 24 H 24 H 23 H Blood Pressure 194/97 H 175/80 H Pulse Oximetry 95 96 Oxygen Delivery Oxygen Flow Rate Fraction of Inspired Oxygen 01/22/25 11:54 Temperature Pulse Rate 79 Respiratory Rate Blood Pressure 190/85 H Pulse Oximetry Oxygen Delivery Oxygen Flow Rate Fraction of Inspired Oxygen Intake/Output Intake/Output: Intake & Output 01/19/25 01/20/25 01/21/25 01/22/25 23:59 23:59 23:59 23:59 Intake Total 1000 2272.5 1518.0 147.6 Output Total 2400 1400 1900 750 Balance -1400 872.5 -382.0 -602.4 Meds/Results Medications: Active Medications Generic Name Dose Route Start Last Admin Trade Name Freq PRN Reason Stop Dose Admin Acetaminophen 650 mg 01/21/25 10:59 Acetaminophen Elixir 325 Mg/10.15 Ml Udc PO Q6H PRN Mild Pain (1-3) or Fever Al Hydrox/Mg Hydrox/Simethicone 30 ml 01/18/25 19:20 01/22/25 05:06 Mag Hydrox/Al Hydrox/Simeth 30 Ml Udc PO 30 ml Q8HR AUGUSTINE Administration Bisacodyl 10 mg 01/20/25 09:00 01/22/25 08:21 Bisacodyl 10 Mg Suppository RECTAL 10 mg QAM AUGUSTINE Administration Dextrose 12.5 gm 01/18/25 15:51 Dextrose 50% 25 Gm/50 Ml Syringe IV PUSH PRN PRN Hypoglycemia Protocol Enoxaparin Sodium 40 mg 01/19/25 11:45 01/22/25 08:20 Enoxaparin 40 Mg/0.4 Ml Syringe SUB-Q 40 mg DAILY AUGUSTINE Administration Glucagon 1 mg 01/18/25 15:51 Glucagon For Inj 1 Mg Vial IM PRN PRN Hypoglycemia Protocol Glucose 15 gm 01/18/25 15:51 Glucose Oral Gel 15 Gm Of Glucse In 37.5 Gm Tube PO PRN PRN Hypoglycemia Protocol Hydralazine HCl 20 mg 01/22/25 10:25 Hydralazine Hcl 20 Mg/Ml Vial IV PUSH Q4H PRN Blood Pressure - High Piperacillin/Tazobactam/Dextrose 3.375 gm in 50 mls @ 100 mls/hr 01/17/25 02:00 01/22/25 08:51 Zosyn 3.375 Gm/Ns 50 Ml IVPB Infused Q6H AUGUSTINE Infusion Dextrose 1,000 mls @ 100 mls/hr 01/18/25 15:51 Dextrose 5% 1,000 Ml IVPB PRN PRN Hypoglycemia Protocol Potassium Chloride/Sodium Chloride 1,000 mls @ 50 mls/hr 01/19/25 11:45 01/21/25 20:12 Kcl 20 Meq/Ns IV CONT Not Given .Q20H AUGUSTINE Dexmedetomidine HCl 400 mcg in 100 mls @ 0 mls/hr 01/21/25 03:40 01/22/25 07:00 Precedex 400 Mcg/100 Ml IV CONT 0 mcg/kg/hr .Q0M AUGUSTINE 0 mls/hr Titration Protocol 0 MCG/KG/HR Nicardipine/Sodium Chloride 20 mg in 200 mls @ 50 mls/hr 01/22/25 10:25 01/22/25 11:54 Cardene 20 Mg/200 Ml Ns IV CONT 5 mg/hr .Q4H AUGUSTINE 50 mls/hr Administration Protocol 5 MG/HR Insulin Aspart 2 - 5 units 01/21/25 12:00 01/22/25 04:08 Insulin Aspart (*Bkc) 100 Units/Ml SUB-Q Not Given Q6H AUGUSTINE Protocol Lidocaine 1 patch 01/19/25 13:35 01/22/25 08:21 Lidocaine 5% Patch TRANSDERM 1 patch DAILY AUGUSTINE Administration Melatonin 3 mg 01/19/25 22:39 01/19/25 23:16 Melatonin 3 Mg Tablet PO 3 mg HS PRN Administration Insomnia Metoclopramide HCl 10 mg 01/19/25 00:00 01/22/25 11:53 Metoclopramide Hcl Inj 10 Mg/2 Ml Vial IV PUSH 10 mg Q6HR AUGUSTINE Administration Ondansetron HCl 4 mg 01/17/25 19:07 01/17/25 22:44 Ondansetron Inj 4 Mg/2 Ml Vial IV PUSH 4 mg Q4H PRN Administration Nausea Pantoprazole Sodium 40 mg 01/17/25 22:30 01/22/25 08:21 Pantoprazole Sodium Iv 40 Mg Vial IV PUSH 40 mg Q12HR AUGUSTINE Administration Quetiapine Fumarate 25 mg 01/21/25 21:00 01/22/25 09:23 Quetiapine Fumarate 25 Mg Tablet PO 25 mg Q12HR AUGUSTINE Administration Radiology Results: ITS Impressions Abdomen/Pelvis CT 01/17/25 18:07 IMPRESSION: Ascending aortic aneurysm measuring up to 5.6 cm. The descending thoracic aorta is mildly dilated to 3.1 cm. Consider nonemergent but timely outpatient CT angiography of the chest and appropriate referral for monitoring/potential intervention. Mild esophagitis/gastritis. Periesophageal lymphadenopathy. Hepatomegaly with steatosis. Mid small bowel obstruction, transition point in the left lateral abdomen. Small volume ascites. Bladder wall thickening, likely secondary to chronic outlet obstruction from prostatomegaly. Small Bowel X-Ray 01/18/25 15:02 IMPRESSION: 1. Small bowel obstruction. Chest X-Ray 01/22/25 07:38 Impression: Central congestive change and minimal bibasilar pulmonary edema. Stable marked cardiomegaly. NG tube in place. Abdomen X-Ray 01/22/25 10:22 IMPRESSION: Contrast is seen in the large bowel. Slightly dilated bowel loops are in the left side of the abdomen which may indicate ileus. Follow-up advised. Labs Labs: Laboratory Results - last 24 hr 01/21/25 01/21/25 01/22/25 18:18 23:29 03:40 WBC RBC Hgb Hct MCV MCH MCHC RDW Plt Count MPV Immature Gran % (Auto) Neut % (Auto) Lymph % (Auto) Webb % (Auto) Eos % (Auto) Baso % (Auto) Lymph # (Auto) Webb # (Auto) Eos # (Auto) Baso # (Auto) Abs Immat Gran (auto) Absolute Neuts (auto) Absolute Nucleated RBC Nucleated RBC % Sodium 145 Potassium 3.5 Chloride 107 Carbon Dioxide 27 Anion Gap 11 BUN 35 H Creatinine 1.19 Estim Creat Clear Calc 57 Estimated GFR 59 Glucose 152 H POC Capillary Glucose 121 H 136 H Calcium 8.5 Phosphorus 3.3 Magnesium 2.4 H Total Bilirubin 1.1 AST 81 H ALT 78 H Alkaline Phosphatase 22 L Total Protein 7.0 Albumin 3.4 L 01/22/25 01/22/25 05:51 12:05 WBC 10.8 H RBC 4.88 Hgb 13.4 L Hct 43.6 MCV 89.3 MCH 27.5 MCHC 30.7 L RDW 14.0 Plt Count 244 MPV 9.2 Immature Gran % (Auto) 0.5 Neut % (Auto) 80.3 H Lymph % (Auto) 7.7 L Webb % (Auto) 10.1 H Eos % (Auto) 1.3 Baso % (Auto) 0.1 L Lymph # (Auto) 0.83 L Webb # (Auto) 1.1 H Eos # (Auto) 0.1 Baso # (Auto) 0.0 Abs Immat Gran (auto) 0.05 H Absolute Neuts (auto) 8.7 H Absolute Nucleated RBC 0.000 Nucleated RBC % 0.0 Sodium Potassium Chloride Carbon Dioxide Anion Gap BUN Creatinine Estim Creat Clear Calc Estimated GFR Glucose POC Capillary Glucose 133 H Calcium Phosphorus Magnesium Total Bilirubin AST ALT Alkaline Phosphatase Total Protein Albumin
--- NOTE | 2025-01-22 13:24 | PCPTNOTE ---
The patient treatment was not able to be completed on 01/22/2025, per RN: patient on new medication and M.D. does not want patient out of bed today, plus patient found wondering outside of hospital this weekend. Will plan to continue treatment per plan of care.
--- NOTE | 2025-01-22 14:54 | P.PNINT_ITS ---
Progress Note: A&P Assessment and Plan (1) Delirium: Code(s): R41.0 - Disorientation, unspecified Status: Acute Assessment and Plan: 01/21/2025, transport medic patient eloped was found across from the hospital) by law enforcement agency and security were scored him back to the hospital. Patient received Ativan, Zyprexa. Not combative and agitated so was transferred to the ICU for Precedex infusion. Patient did receive a bolus of the Precedex -01/22: Patient more awake, alert, oriented -restraints in place -, bedside sitter -continue Seroquel for 2 (2) SBO (small bowel obstruction): Code(s): K56.609 - Unspecified intestinal obstruction, unspecified as to partial versus complete obstruction Status: Acute Assessment and Plan: 02/15: Patient was admitted for abdominal pain, small-bowel obstruction on abdominal CT scan -Surgery was consulted, patient was taken for surgery on 01/18/2025 for high- grade small-bowel obstruction secondary to abdominal adhesions, status post exploratory laparotomy with abdominal adhesiolysis. -continue Zosyn per surgery -NG tube in place to low intermittent suction -Reglan, Dulcolax suppository has been ordered per surgery -will discontinue ibuprofen, since patient has chronic kidney disease -also on Mylanta for esophagitis/gastritis -pain control with Tylenol elixir -continue IV fluids at 50 mL/hour, bowel rest, NG tube decompression, -surgery following closely -01/22: Obstructive series indicated Ileus 02/14: CT scan of the abdomen and pelvis showed mid small-bowel obstruction with transition point in the left lateral abdomen, small volume ascites, hepatomegaly with steatosis, bladder wall thickening likely secondary to chronic outlet obstruction prostatomegaly. Ascending aortic aneurysm measuring 5.6 cm, descending thoracic aorta is mildly dilated to 3.1 cm mild esop hagitis/gastritis, periesophageal lymphadenopathy. (3) Hypertension: Qualifiers: Hypertension type: primary hypertension Qualified Code(s): I10 - Essential (primary) hypertension Code(s): I10 - Essential (primary) hypertension Status: Acute Assessment and Plan: Started patient on nicardipine infusion with improvement since he has abdominal aortic aneurysm. -p.r.n. hydralazine (4) Diabetes mellitus with renal manifestation: Code(s): E11.29 - Type 2 diabetes mellitus with other diabetic kidney complication Status: Acute Assessment and Plan: Continue Accu-Cheks and sliding scale insulin q.6 hours (5) BPH (benign prostatic hyperplasia): Code(s): N40.0 - Benign prostatic hyperplasia without lower urinary tract symptoms Status: Acute Assessment and Plan: Mckinney catheter in place, patient had adequate urine output Plan DVT prophylaxis: Enoxaparin Stress ulcer prophylaxis: Protonix IV q.12 hours Nutrition: NPO, NG tube in place Code Status: Full code Critical Care Time Spent: 33 minutes Discussed with surgery team Due to a high probability of clinically significant, life threatening deterioration, the patient required my highest level of preparedness to interv shasta emergently and I personally spent this critical care time directly and personally managing the patient. This critical care time included obtaining a history; examining the patient; pulse oximetry; ordering and review of studies; arranging urgent treatment with development of a management plan; evaluation of patient's response to treatment; frequent reassessment; and discussions with other providers. It was exclusive of separately billable procedures and treating other patients and teaching time. Please see Assessment and Plan section and the rest of the note for further information on patient assessment and treatment This dictation may have been done utilizing a voice recognition system. Attempts have been made to correct errors. However, there may be uncorrected grammatical, spelling, and recognitions errors present. Subjective Date/time seen: 01/22/25 14:54 Interval history: Reason for consult: Delirium, agitation, combativeness requiring Precedex infusion 01/22/2025: Patient seen examined the ICU, is more awake this morning, oriented x3, NG tube in place. Denies any abdominal pain, nausea, vomiting, shortness of breath. Patient currently is on high-flow therapy as he desaturates when he sleeping likely due to obstructive sleep apnea. Bedside RN states that patient has been passing gas but no bowel movements. Review of Systems Review of Systems: All systems reviewed & are unremarkable except as noted in HPI and below Exam Narrative: General: Obese gentleman, currently no acute distress HEENT:? Pupils equal reactive, sclera is clear, on high-flow therapy Neck:? Supple, thick neck Respiratory:? Coarse breath sounds bilaterally, decreased at bases, adequate air entry, no wheezing Cardiac: Irregularly irregular, rate controlled Abdomen:? Soft, nontender, obese, protuberant, hypoactive bowel sounds, midline incision with dressing in place Extremities:? Palpable pedal pulses, bilateral lower extremity edema Neuro:? Patient is more awake this morning, alert and oriented x3, able to answer questions and follow simple commands Skin:? Abdominal Dressing in place Psych:? Unable to assess at this time Objective Data Vital Signs Vital Signs: Vital Signs - 24 hr 01/21/25 14:58 01/21/25 14:58 01/21/25 15:20 Temperature Pulse Rate 77 Respiratory Rate 26 H Blood Pressure Pulse Oximetry 100 100 100 Oxygen Delivery High Flow Therapy with Na High Flow Therapy with Na High Flow Therapy with Na Oxygen Flow Rate 40 40 40 Fraction of Inspired Oxygen 60 60 55 01/21/25 16:00 01/21/25 16:00 01/21/25 16:00 Temperature 100.2 F H Pulse Rate 79 77 Respiratory Rate 31 H 30 H 33 H Blood Pressure 174/96 H Pulse Oximetry 99 98 Oxygen Delivery High Flow Therapy with Na Oxygen Flow Rate 40 Fraction of Inspired Oxygen 50 01/21/25 16:00 01/21/25 16:54 01/21/25 18:00 Temperature Pulse Rate 77 76 77 Respiratory Rate 32 H 27 H Blood Pressure Pulse Oximetry 98 Oxygen Delivery High Flow Therapy with Na Oxygen Flow Rate 40 Fraction of Inspired Oxygen 50 01/21/25 18:00 01/21/25 18:00 01/21/25 18:20 Temperature 101 F H Pulse Rate 78 75 80 Respiratory Rate 31 H Blood Pressure 163/90 H Pulse Oximetry 99 Oxygen Delivery Oxygen Flow Rate Fraction of Inspired Oxygen 01/21/25 18:33 01/21/25 20:00 01/21/25 20:00 Temperature Pulse Rate 83 Respiratory Rate 31 H 28 H 28 H Blood Pressure Pulse Oximetry 99 96 Oxygen Delivery High Flow Therapy with Na High Flow Therapy with Na Oxygen Flow Rate 40 40 Fraction of Inspired Oxygen 45 45 01/21/25 20:00 01/21/25 20:00 01/21/25 21:51 Temperature 101 F H Pulse Rate 78 72 77 Respiratory Rate 31 H 22 H Blood Pressure 168/90 H Pulse Oximetry 95 98 Oxygen Delivery High Flow Therapy with Na Oxygen Flow Rate 40 Fraction of Inspired Oxygen 50 01/21/25 22:00 01/21/25 22:00 01/21/25 22:00 Temperature 100.6 F H Pulse Rate 79 81 81 Respiratory Rate 30 H 22 H Blood Pressure 171/81 H Pulse Oximetry 96 Oxygen Delivery Oxygen Flow Rate Fraction of Inspired Oxygen 01/21/25 22:41 01/22/25 00:00 01/22/25 00:00 Temperature Pulse Rate 81 73 Respiratory Rate 30 H 27 H Blood Pressure Pulse Oximetry 97 Oxygen Delivery High Flow Therapy with Na Oxygen Flow Rate 40 Fraction of Inspired Oxygen 45 01/22/25 00:00 01/22/25 00:00 01/22/25 00:11 Temperature 99.7 F H Pulse Rate 71 71 71 Respiratory Rate 27 H 27 H Blood Pressure 162/78 H Pulse Oximetry 97 Oxygen Delivery Oxygen Flow Rate Fraction of Inspired Oxygen 01/22/25 02:00 01/22/25 02:00 01/22/25 02:00 Temperature Pulse Rate 59 L 59 L 64 Respiratory Rate 25 H 25 H Blood Pressure Pulse Oximetry Oxygen Delivery Oxygen Flow Rate Fraction of Inspired Oxygen 01/22/25 02:00 01/22/25 04:00 01/22/25 04:00 Temperature 99.8 F H Pulse Rate 64 62 Respiratory Rate 23 H 24 H Blood Pressure 155/90 H Pulse Oximetry 95 96 Oxygen Delivery High Flow Therapy with Na Oxygen Flow Rate 40 Fraction of Inspired Oxygen 45 01/22/25 04:00 01/22/25 04:00 01/22/25 05:06 Temperature 99.5 F Pulse Rate 60 60 68 Respiratory Rate 24 H 24 H Blood Pressure 145/86 H Pulse Oximetry 96 Oxygen Delivery Oxygen Flow Rate Fraction of Inspired Oxygen 01/22/25 06:00 01/22/25 06:00 01/22/25 06:00 Temperature 99.5 F Pulse Rate 57 L 57 L 57 L Respiratory Rate 24 H 24 H Blood Pressure 151/78 H Pulse Oximetry 97 Oxygen Delivery Oxygen Flow Rate Fraction of Inspired Oxygen 01/22/25 07:00 01/22/25 08:00 01/22/25 08:00 Temperature 99.5 F Pulse Rate 63 73 Respiratory Rate 24 H 24 H Blood Pressure 194/97 H Pulse Oximetry 95 97 Oxygen Delivery High Flow Therapy with Na Oxygen Flow Rate 40 Fraction of Inspired Oxygen 45 01/22/25 10:00 01/22/25 10:00 01/22/25 11:54 Temperature 99.5 F Pulse Rate 67 67 79 Respiratory Rate 23 H Blood Pressure 175/80 H 190/85 H Pulse Oximetry 96 Oxygen Delivery Oxygen Flow Rate Fraction of Inspired Oxygen 01/22/25 12:00 01/22/25 12:00 01/22/25 13:00 Temperature 99.7 F H Pulse Rate 81 80 Respiratory Rate 21 H Blood Pressure 156/74 H 150/78 H Pulse Oximetry 98 98 Oxygen Delivery High Flow Therapy with Na Oxygen Flow Rate 40 Fraction of Inspired Oxygen 45 01/22/25 14:00 01/22/25 14:00 Temperature 99 F Pulse Rate 75 82 Respiratory Rate 23 H Blood Pressure 158/75 H 158/75 H Pulse Oximetry 96 Oxygen Delivery Oxygen Flow Rate Fraction of Inspired Oxygen Intake/Output Intake/Output: Intake & Output 01/19/25 01/20/25 01/21/25 01/22/25 23:59 23:59 23:59 23:59 Intake Total 1000 2272.5 1518.0 252.6 Output Total 2400 1400 1900 750 Balance -1400 872.5 -382.0 -497.4 Meds/Results Medications: Active Medications Generic Name Dose Route Start Last Admin Trade Name Freq PRN Reason Stop Dose Admin Acetaminophen 650 mg 01/21/25 10:59 Acetaminophen Elixir 325 Mg/10.15 Ml Udc PO Q6H PRN Mild Pain (1-3) or Fever Al Hydrox/Mg Hydrox/Simethicone 30 ml 01/18/25 19:20 01/22/25 05:06 Mag Hydrox/Al Hydrox/Simeth 30 Ml Udc PO 30 ml Q8HR AUGUSTINE Administration Bisacodyl 10 mg 01/20/25 09:00 01/22/25 08:21 Bisacodyl 10 Mg Suppository RECTAL 10 mg QAM AUGUSTINE Administration Dextrose 12.5 gm 01/18/25 15:51 Dextrose 50% 25 Gm/50 Ml Syringe IV PUSH PRN PRN Hypoglycemia Protocol Enoxaparin Sodium 40 mg 01/19/25 11:45 01/22/25 08:20 Enoxaparin 40 Mg/0.4 Ml Syringe SUB-Q 40 mg DAILY AUGUSTINE Administration Glucagon 1 mg 01/18/25 15:51 Glucagon For Inj 1 Mg Vial IM PRN PRN Hypoglycemia Protocol Glucose 15 gm 01/18/25 15:51 Glucose Oral Gel 15 Gm Of Glucse In 37.5 Gm Tube PO PRN PRN Hypoglycemia Protocol Hydralazine HCl 20 mg 01/22/25 10:25 Hydralazine Hcl 20 Mg/Ml Vial IV PUSH Q4H PRN Blood Pressure - High Piperacillin/Tazobactam/Dextrose 3.375 gm in 50 mls @ 100 mls/hr 01/17/25 02:00 01/22/25 08:51 Zosyn 3.375 Gm/Ns 50 Ml IVPB Infused Q6H AUGUSTINE Infusion Dextrose 1,000 mls @ 100 mls/hr 01/18/25 15:51 Dextrose 5% 1,000 Ml IVPB PRN PRN Hypoglycemia Protocol Potassium Chloride/Sodium Chloride 1,000 mls @ 50 mls/hr 01/19/25 11:45 01/21/25 20:12 Kcl 20 Meq/Ns IV CONT Not Given .Q20H AUGUSTINE Dexmedetomidine HCl 400 mcg in 100 mls @ 0 mls/hr 01/21/25 03:40 01/22/25 07:00 Precedex 400 Mcg/100 Ml IV CONT 0 mcg/kg/hr .Q0M AUGUSTINE 0 mls/hr Titration Protocol 0 MCG/KG/HR Nicardipine/Sodium Chloride 20 mg in 200 mls @ 50 mls/hr 01/22/25 10:25 01/22/25 14:00 Cardene 20 Mg/200 Ml Ns IV CONT 5 mg/hr .Q4H AUGUSTINE 50 mls/hr Titration Protocol 5 MG/HR Insulin Aspart 2 - 5 units 01/21/25 12:00 01/22/25 13:58 Insulin Aspart (*Bkc) 100 Units/Ml SUB-Q Not Given Q6H AUGUSTINE Protocol Lidocaine 1 patch 01/19/25 13:35 01/22/25 08:21 Lidocaine 5% Patch TRANSDERM 1 patch DAILY AUGUSTINE Administration Melatonin 3 mg 01/19/25 22:39 01/19/25 23:16 Melatonin 3 Mg Tablet PO 3 mg HS PRN Administration Insomnia Metoclopramide HCl 10 mg 01/19/25 00:00 01/22/25 11:53 Metoclopramide Hcl Inj 10 Mg/2 Ml Vial IV PUSH 10 mg Q6HR AUGUSTINE Administration Ondansetron HCl 4 mg 01/17/25 19:07 01/17/25 22:44 Ondansetron Inj 4 Mg/2 Ml Vial IV PUSH 4 mg Q4H PRN Administration Nausea Pantoprazole Sodium 40 mg 01/17/25 22:30 01/22/25 08:21 Pantoprazole Sodium Iv 40 Mg Vial IV PUSH 40 mg Q12HR AUGUSTINE Administration Quetiapine Fumarate 25 mg 01/21/25 21:00 01/22/25 09:23 Quetiapine Fumarate 25 Mg Tablet PO 25 mg Q12HR AUGUSTINE Administration Radiology Results: ITS Impressions Abdomen/Pelvis CT 01/17/25 18:07 IMPRESSION: Ascending aortic aneurysm measuring up to 5.6 cm. The descending thoracic aorta is mildly dilated to 3.1 cm. Consider nonemergent but timely outpatient CT angiography of the chest and appropriate referral for monitoring/potential int ervention. Mild esophagitis/gastritis. Periesophageal lymphadenopathy. Hepatomegaly with steatosis. Mid small bowel obstruction, transition point in the left lateral abdomen. Small volume ascites. Bladder wall thickening, likely secondary to chronic outlet obstruction from prostatomegaly. Small Bowel X-Ray 01/18/25 15:02 IMPRESSION: 1. Small bowel obstruction. Chest X-Ray 01/22/25 07:38 Impression: Central congestive change and minimal bibasilar pulmonary edema. Stable marked cardiomegaly. NG tube in place. Abdomen X-Ray 01/22/25 10:22 IMPRESSION: Contrast is seen in the large bowel. Slightly dilated bowel loops are in the left side of the abdomen which may indicate ileus. Follow-up advised. Labs Labs: Laboratory Results - last 24 hr 01/21/25 01/21/25 01/22/25 18:18 23:29 03:40 WBC RBC Hgb Hct MCV MCH MCHC RDW Plt Count MPV Immature Gran % (Auto) Neut % (Auto) Lymph % (Auto) [place] % (Auto) Eos % (Auto) Baso % (Auto) Lymph # (Auto) [place] # (Auto) Eos # (Auto) Baso # (Auto) Abs Immat Gran (auto) Absolute Neuts (auto) Absolute Nucleated RBC Nucleated RBC % Sodium 145 Potassium 3.5 Chloride 107 Carbon Dioxide 27 Anion Gap 11 BUN 35 H Creatinine 1.19 Estim Creat Clear Calc 57 Estimated GFR 59 Glucose 152 H POC Capillary Glucose 121 H 136 H Calcium 8.5 Phosphorus 3.3 Magnesium 2.4 H Total Bilirubin 1.1 AST 81 H ALT 78 H Alkaline Phosphatase 22 L Total Protein 7.0 Albumin 3.4 L 01/22/25 01/22/25 05:51 12:05 WBC 10.8 H RBC 4.88 Hgb 13.4 L Hct 43.6 MCV 89.3 MCH 27.5 MCHC 30.7 L RDW 14.0 Plt Count 244 MPV 9.2 Immature Gran % (Auto) 0.5 Neut % (Auto) 80.3 H Lymph % (Auto) 7.7 L [place] % (Auto) 10.1 H Eos % (Auto) 1.3 Baso % (Auto) 0.1 L Lymph # (Auto) 0.83 L [place] # (Auto) 1.1 H Eos # (Auto) 0.1 Baso # (Auto) 0.0 Abs Immat Gran (auto) 0.05 H Absolute Neuts (auto) 8.7 H Absolute Nucleated RBC 0.000 Nucleated RBC % 0.0 Sodium Potassium Chloride Carbon Dioxide Anion Gap BUN Creatinine Estim Creat Clear Calc Estimated GFR Glucose POC Capillary Glucose 133 H Calcium Phosphorus Magnesium Total Bilirubin AST ALT Alkaline Phosphatase Total Protein Albumin Quality VTE Prophylaxis VTE prophylaxis: mechanical ordered and pharmacologic ordered
--- NOTE | 2025-01-22 16:07 | PM.IMPN ---
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 Patient received Ativan, Zyprexa. Not combative and agitated so was transferred to the ICU for Precedex infusion. Patient did receive a bolus of the Precedex -01/22: Patient more awake, alert, oriented -restraints in place -, bedside sitter -continue Seroquel for 2 (2) SBO (small bowel obstruction): Code(s): K56.609 - Unspecified intestinal obstruction, unspecified as to partial versus complete obstruction Status: Acute Assessment and Plan: 02/15: Patient was admitted for abdominal pain, small-bowel obstruction on abdominal CT scan -Surgery was consulted, patient was taken for surgery on 01/18/2025 for high-grade small-bowel obstruction secondary to abdominal adhesions, status post exploratory laparotomy with abdominal adhesiolysis. -continue Zosyn per surgery -NG tube in place to low intermittent suction -Reglan, Dulcolax suppository has been ordered per surgery -will discontinue ibuprofen, since patient has chronic kidney disease -also on Mylanta for esophagitis/gastritis -pain control with Tylenol elixir -continue IV fluids at 50 mL/hour, bowel rest, NG tube decompression, -surgery following closely -01/22: Obstructive series indicated Ileus 02/14: CT scan of the abdomen and pelvis showed mid small-bowel obstruction with transition point in the left lateral abdomen, small volume ascites, hepatomegaly with steatosis, bladder wall thickening likely secondary to chronic outlet obstruction prostatomegaly. Ascending aortic aneurysm measuring 5.6 cm, descending thoracic aorta is mildly dilated to 3.1 cm mild esophagitis/gastritis, periesophageal lymphadenopathy. (3) Hypertension: Qualifiers: Hypertension type: primary hypertension Qualified Code(s): I10 - Essential (primary) hypertension Code(s): I10 - Essential (primary) hypertension Status: Acute Assessment and Plan: Started patient on nicardipine infusion with improvement since he has abdominal aortic aneurysm. -p.r.n. hydralazine (4) Diabetes mellitus with renal manifestation: Code(s): E11.29 - Type 2 diabetes mellitus with other diabetic kidney complication Status: Acute Assessment and Plan: Continue Accu-Cheks and sliding scale insulin q.6 hours (5) BPH (benign prostatic hyperplasia): Code(s): N40.0 - Benign prostatic hyperplasia without lower urinary tract symptoms Status: Acute Assessment and Plan: Mckinney catheter in place, patient had adequate urine output Plan patient was found to have High-grade small-bowel obstruction secondary to abdominal adhesions was seen by surgery service had exploratory laparotomy, abdominal adhesiolysis on 01/18, however patient became confused removed his IV, and was wondering in the hospital, patient was brought back to the room, patient was aggressive, transferred to ICU for sedation with Precedex, patient remains clinically stable still sedated patient is sedated and unable to provider any ROS. will continue to monitor Subjective Date/time seen: 01/22/25 16:07 Interval history: Patient admitted for treatment of SBO and plan for exploratory laparotomy. Patient still hypertensive will increase IV metoprolol to 5 mg scheduled and schedule his IV hydralazine. Patient refusing NG tube but denies ABD pain, distention slightly improved. Patient reported flatulence but still no BM. H&P-Narrative He presents with a few hours' history of central abdominal pain; it is localized; rated 10 in intensity, aggravated by meals/drinks, alleviated by fasting; associated with bilious but non-bloody emesis, malaise, anorexia, chills and rigors. His last BM was days ago; he denies chest pain, dizziness, LOC, flank pain, dysuria, hematuria or [place]. patient was found to have High-grade small-bowel obstruction secondary to abdominal adhesions was seen by surgery service had exploratory laparotomy, abdominal adhesiolysis on 01/18, however patient became confused removed his IV, and was wondering in the hospital, patient was brought back to the room, patient was aggressive, transferred to ICU for sedation with Precedex, patient remains clinically stable still sedated patient is sedated and unable to provider any ROS. will continue to monitor Exam Narrative: Patient is comfortable, NAD HEENT: NG tube in place LUNGS:CTA ABD: distended Lower extremities: no edema SKIN: nonjaundiced Neuro: Sedated Objective Data Vital Signs Vital Signs: Vital Signs - 24 hr 01/21/25 16:54 01/21/25 18:00 01/21/25 18:00 Temperature Pulse Rate 76 77 78 Respiratory Rate 32 H 27 H Blood Pressure Pulse Oximetry 98 Oxygen Delivery High Flow Therapy with Na Oxygen Flow Rate 40 Fraction of Inspired Oxygen 50 01/21/25 18:00 01/21/25 18:20 01/21/25 18:33 Temperature 38.3 C H Pulse Rate 75 80 Respiratory Rate 31 H 31 H Blood Pressure 163/90 H Pulse Oximetry 99 99 Oxygen Delivery High Flow Therapy with Na Oxygen Flow Rate 40 Fraction of Inspired Oxygen 45 01/21/25 20:00 01/21/25 20:00 01/21/25 20:00 Temperature 38.3 C H Pulse Rate 83 78 Respiratory Rate 28 H 28 H 31 H Blood Pressure 168/90 H Pulse Oximetry 96 95 Oxygen Delivery High Flow Therapy with Na Oxygen Flow Rate 40 Fraction of Inspired Oxygen 45 01/21/25 20:00 01/21/25 21:51 01/21/25 22:00 Temperature Pulse Rate 72 77 79 Respiratory Rate 22 H 30 H Blood Pressure Pulse Oximetry 98 Oxygen Delivery High Flow Therapy with Na Oxygen Flow Rate 40 Fraction of Inspired Oxygen 50 01/21/25 22:00 01/21/25 22:00 01/21/25 22:41 Temperature 38.1 C H Pulse Rate 81 81 81 Respiratory Rate 22 H 30 H Blood Pressure 171/81 H Pulse Oximetry 96 Oxygen Delivery Oxygen Flow Rate Fraction of Inspired Oxygen 01/22/25 00:00 01/22/25 00:00 01/22/25 00:00 Temperature 37.6 C H Pulse Rate 73 71 Respiratory Rate 27 H 27 H Blood Pressure 162/78 H Pulse Oximetry 97 97 Oxygen Delivery High Flow Therapy with Na Oxygen Flow Rate 40 Fraction of Inspired Oxygen 45 01/22/25 00:00 01/22/25 00:11 01/22/25 02:00 Temperature Pulse Rate 71 71 59 L Respiratory Rate 27 H 25 H Blood Pressure Pulse Oximetry Oxygen Delivery Oxygen Flow Rate Fraction of Inspired Oxygen 01/22/25 02:00 01/22/25 02:00 01/22/25 02:00 Temperature 37.7 C H Pulse Rate 59 L 64 64 Respiratory Rate 25 H 23 H Blood Pressure 155/90 H Pulse Oximetry 95 Oxygen Delivery Oxygen Flow Rate Fraction of Inspired Oxygen 01/22/25 04:00 01/22/25 04:00 01/22/25 04:00 Temperature 37.5 C Pulse Rate 62 60 Respiratory Rate 24 H 24 H Blood Pressure 145/86 H Pulse Oximetry 96 96 Oxygen Delivery High Flow Therapy with Na Oxygen Flow Rate 40 Fraction of Inspired Oxygen 45 01/22/25 04:00 01/22/25 05:06 01/22/25 06:00 Temperature Pulse Rate 60 68 57 L Respiratory Rate 24 H Blood Pressure Pulse Oximetry Oxygen Delivery Oxygen Flow Rate Fraction of Inspired Oxygen 01/22/25 06:00 01/22/25 06:00 01/22/25 07:00 Temperature 37.5 C Pulse Rate 57 L 57 L 63 Respiratory Rate 24 H 24 H 24 H Blood Pressure 151/78 H Pulse Oximetry 97 Oxygen Delivery Oxygen Flow Rate Fraction of Inspired Oxygen 01/22/25 08:00 01/22/25 08:00 01/22/25 08:00 Temperature 37.5 C Pulse Rate 73 69 Respiratory Rate 24 H Blood Pressure 194/97 H Pulse Oximetry 95 97 Oxygen Delivery High Flow Therapy with Na Oxygen Flow Rate 40 Fraction of Inspired Oxygen 45 01/22/25 10:00 01/22/25 10:00 01/22/25 10:00 Temperature 37.5 C Pulse Rate 67 67 67 Respiratory Rate 23 H Blood Pressure 175/80 H Pulse Oximetry 96 Oxygen Delivery Oxygen Flow Rate Fraction of Inspired Oxygen 01/22/25 11:54 01/22/25 12:00 01/22/25 12:00 Temperature 37.6 C H Pulse Rate 79 81 Respiratory Rate 21 H Blood Pressure 190/85 H 156/74 H Pulse Oximetry 98 98 Oxygen Delivery High Flow Therapy with Na Oxygen Flow Rate 40 Fraction of Inspired Oxygen 45 01/22/25 12:00 01/22/25 13:00 01/22/25 14:00 Temperature 37.2 C Pulse Rate 88 80 75 Respiratory Rate 23 H Blood Pressure 150/78 H 158/75 H Pulse Oximetry 96 Oxygen Delivery Oxygen Flow Rate Fraction of Inspired Oxygen 01/22/25 14:00 01/22/25 14:00 01/22/25 15:13 Temperature Pulse Rate 82 81 82 Respiratory Rate 22 H Blood Pressure 158/75 H Pulse Oximetry 91 Oxygen Delivery High Flow Therapy with Na Oxygen Flow Rate 35 Fraction of Inspired Oxygen 40 01/22/25 15:43 01/22/25 15:43 Temperature Pulse Rate 71 71 Respiratory Rate Blood Pressure 155/79 H 155/79 H Pulse Oximetry Oxygen Delivery Oxygen Flow Rate Fraction of Inspired Oxygen Intake/Output Intake/Output: Intake & Output 01/19/25 01/20/25 01/21/25 01/22/25 23:59 23:59 23:59 23:59 Intake Total 1000 2272.5 1518.0 338.4 Output Total 2400 1400 1900 750 Balance -1400 872.5 -382.0 -411.6 Meds/Results Medications: Active Medications Generic Name Dose Route Start Last Admin Trade Name Freq PRN Reason Stop Dose Admin Acetaminophen 650 mg 01/21/25 10:59 Acetaminophen Elixir 325 Mg/10.15 Ml Udc PO Q6H PRN Mild Pain (1-3) or Fever Al Hydrox/Mg Hydrox/Simethicone 30 ml 01/18/25 19:20 01/22/25 15:19 Mag Hydrox/Al Hydrox/Simeth 30 Ml Udc PO 30 ml Q8HR AUGUSTINE Administration Bisacodyl 10 mg 01/20/25 09:00 01/22/25 08:21 Bisacodyl 10 Mg Suppository RECTAL 10 mg QAM AUGUSTINE Administration Dextrose 12.5 gm 01/18/25 15:51 Dextrose 50% 25 Gm/50 Ml Syringe IV PUSH PRN PRN Hypoglycemia Protocol Enoxaparin Sodium 40 mg 01/19/25 11:45 01/22/25 08:20 Enoxaparin 40 Mg/0.4 Ml Syringe SUB-Q 40 mg DAILY AUGUSTINE Administration Glucagon 1 mg 01/18/25 15:51 Glucagon For Inj 1 Mg Vial IM PRN PRN Hypoglycemia Protocol Glucose 15 gm 01/18/25 15:51 Glucose Oral Gel 15 Gm Of Glucse In 37.5 Gm Tube PO PRN PRN Hypoglycemia Protocol Hydralazine HCl 20 mg 01/22/25 10:25 Hydralazine Hcl 20 Mg/Ml Vial IV PUSH Q4H PRN Blood Pressure - High Piperacillin/Tazobactam/Dextrose 3.375 gm in 50 mls @ 100 mls/hr 01/17/25 02:00 01/22/25 15:19 Zosyn 3.375 Gm/Ns 50 Ml IVPB 100 mls/hr Q6H AUGUSTINE Administration Dextrose 1,000 mls @ 100 mls/hr 01/18/25 15:51 Dextrose 5% 1,000 Ml IVPB PRN PRN Hypoglycemia Protocol Potassium Chloride/Sodium Chloride 1,000 mls @ 50 mls/hr 01/19/25 11:45 01/21/25 20:12 Kcl 20 Meq/Ns IV CONT Not Given .Q20H AUGUSTINE Dexmedetomidine HCl 400 mcg in 100 mls @ 0 mls/hr 01/21/25 03:40 01/22/25 07:00 Precedex 400 Mcg/100 Ml IV CONT 0 mcg/kg/hr .Q0M AUGUSTINE 0 mls/hr Titration Protocol 0 MCG/KG/HR Nicardipine/Sodium Chloride 20 mg in 200 mls @ 50 mls/hr 01/22/25 10:25 01/22/25 15:43 Cardene 20 Mg/200 Ml Ns IV CONT 5 mg/hr .Q4H AUGUSTINE 50 mls/hr Administration Protocol 5 MG/HR Insulin Aspart 2 - 5 units 01/21/25 12:00 01/22/25 13:58 Insulin Aspart (*Bkc) 100 Units/Ml SUB-Q Not Given Q6H AUGUSTINE Protocol Lidocaine 1 patch 01/19/25 13:35 01/22/25 08:21 Lidocaine 5% Patch TRANSDERM 1 patch DAILY AUGUSTINE Administration Melatonin 3 mg 01/19/25 22:39 01/19/25 23:16 Melatonin 3 Mg Tablet PO 3 mg HS PRN Administration Insomnia Metoclopramide HCl 10 mg 01/19/25 00:00 01/22/25 11:53 Metoclopramide Hcl Inj 10 Mg/2 Ml Vial IV PUSH 10 mg Q6HR AUGUSTINE Administration Ondansetron HCl 4 mg 01/17/25 19:07 01/17/25 22:44 Ondansetron Inj 4 Mg/2 Ml Vial IV PUSH 4 mg Q4H PRN Administration Nausea Pantoprazole Sodium 40 mg 01/17/25 22:30 01/22/25 08:21 Pantoprazole Sodium Iv 40 Mg Vial IV PUSH 40 mg Q12HR AUGUSTINE Administration Quetiapine Fumarate 25 mg 01/21/25 21:00 01/22/25 09:23 Quetiapine Fumarate 25 Mg Tablet PO 25 mg Q12HR AUGUSTINE Administration Radiology Results: ITS Impressions Abdomen/Pelvis CT 01/17/25 18:07 IMPRESSION: Ascending aortic aneurysm measuring up to 5.6 cm. The descending thoracic aorta is mildly dilated to 3.1 cm. Consider nonemergent but timely outpatient CT angiography of the chest and appropriate referral for monitoring/potential intervention. Mild esophagitis/gastritis. Periesophageal lymphadenopathy. Hepatomegaly with steatosis. Mid small bowel obstruction, transition point in the left lateral abdomen. Small volume ascites. Bladder wall thickening, likely secondary to chronic outlet obstruction from prostatomegaly. Small Bowel X-Ray 01/18/25 15:02 IMPRESSION: 1. Small bowel obstruction. Chest X-Ray 01/22/25 07:38 Impression: Central congestive change and minimal bibasilar pulmonary edema. Stable marked cardiomegaly. NG tube in place. Abdomen X-Ray 01/22/25 10:22 IMPRESSION: Contrast is seen in the large bowel. Slightly dilated bowel loops are in the left side of the abdomen which may indicate ileus. Follow-up advised. Labs Labs: Laboratory Results - last 24 hr 01/21/25 01/21/25 01/22/25 18:18 23:29 03:40 WBC RBC Hgb Hct MCV MCH MCHC RDW Plt Count MPV Immature Gran % (Auto) Neut % (Auto) Lymph % (Auto) [place] % (Auto) Eos % (Auto) Baso % (Auto) Lymph # (Auto) [place] # (Auto) Eos # (Auto) Baso # (Auto) Abs Immat Gran (auto) Absolute Neuts (auto) Absolute Nucleated RBC Nucleated RBC % Sodium 145 Potassium 3.5 Chloride 107 Carbon Dioxide 27 Anion Gap 11 BUN 35 H Creatinine 1.19 Estim Creat Clear Calc 57 Estimated GFR 59 Glucose 152 H POC Capillary Glucose 121 H 136 H Calcium 8.5 Phosphorus 3.3 Magnesium 2.4 H Total Bilirubin 1.1 AST 81 H ALT 78 H Alkaline Phosphatase 22 L Total Protein 7.0 Albumin 3.4 L 01/22/25 01/22/25 05:51 12:05 WBC 10.8 H RBC 4.88 Hgb 13.4 L Hct 43.6 MCV 89.3 MCH 27.5 MCHC 30.7 L RDW 14.0 Plt Count 244 MPV 9.2 Immature Gran % (Auto) 0.5 Neut % (Auto) 80.3 H Lymph % (Auto) 7.7 L [place] % (Auto) 10.1 H Eos % (Auto) 1.3 Baso % (Auto) 0.1 L Lymph # (Auto) 0.83 L [place] # (Auto) 1.1 H Eos # (Auto) 0.1 Baso # (Auto) 0.0 Abs Immat Gran (auto) 0.05 H Absolute Neuts (auto) 8.7 H Absolute Nucleated RBC 0.000 Nucleated RBC % 0.0 Sodium Potassium Chloride Carbon Dioxide Anion Gap BUN Creatinine Estim Creat Clear Calc Estimated GFR Glucose POC Capillary Glucose 133 H Calcium Phosphorus Magnesium Total Bilirubin AST ALT Alkaline Phosphatase Total Protein Albumin
[2025-01-22 17:13] LABS: Anion Gap 11 mmol/L (4-12); Blood Urea Nitrogen 35 mg/dL (9-20); Calcium 8.4 mg/dL (8.4-10.2); Carbon Dioxide 28 mmol/L (22-30); Chloride 109 mmol/L (98-107); Estimated CRCL calculation 59 ml/min; Estimated Glomerular Filt Rate > 60; Glucose 143 mg/dL (65-110); Potassium 3.8 mmol/L (3.4-5.0); Sodium 148 mmol/L (137-145)
[2025-01-22] MEDS: KCL 20MEQ/0.9% SOD CHL 1,000 ML 50 ML IV CONT (17:41)
[2025-01-22 18:23] LABS: Glucose Point of Care 154 mg/dl (65-105)
[2025-01-22] MEDS: niCARdipine 20 MG/200 ML 20 MG/200 ML BAG 75 MG IV CONT ×2 (19:01→21:31)
[2025-01-22 19:40] LABS: Magnesium 2.6 mg/dL (1.6-2.3)
[2025-01-23] VITALS (40 sets, daily range): BP systolic 114–183; BP diastolic 59–126; PULSE 68–175; RESP 16–28; TEMP 36.4–37.9; O2SAT 92–96
[2025-01-23 00:03] LABS: Glucose Point of Care 152 mg/dl (65-105)
[2025-01-23] MEDS: dilTIAZem 100 MG/100 ML 100 MG/100 ML BAG IV CONT (01:00)
[2025-01-23] MEDS: PIPERACILLN/TAZ 3.375GM/NS50ML 3.375 GM/50 ML BAG IVPB ×4 (01:00→20:00)
[2025-01-23 04:48] LABS: Basophils Percent Auto 0.3 % (0.2-1.2); Eosinophils Absolute Auto 0.3 K/mm3 (0-0.3); Hematocrit 45.8 % (42.0-52.0); Hemoglobin 13.9 g/dL (14.0-18.0); Immature Granulocyte Absolute 0.06 K/mm3 (0.00-0.031); Immature Granulocyte Percent A 0.6 % (0-0.5); Lymphocytes Absolute Auto 1.13 K/mm3 (0.9-3.2); Mean Corpuscular HGB Conc 30.3 g/dl (32-36); Mean Corpuscular Hemoglobin 27.4 pg (26-34); Mean Corpuscular Volume 90.3 fl (80-100); Mean Platelet Volume 9.3 fl (7.4-10.4); Monocytes Percent Auto 9.8 % (2.6-8.5); Neutrophils Absolute Auto 7.8 K/mm3 (1.3-6.7); Neutrophils Percent Auto 75.3 % (45.5-73.1); Platelet Count Result 254 k/mm3 (150-375); Red Blood Count 5.07 M/mm3 (4.6-6.20); Red Cell Distribution Width 14.1 % (11.5-14.5); White Blood Count 10.3 K/mm3 (4.5-10.0)
[2025-01-23 05:04] LABS: Alanine Aminotransferase 114 U/L (6-50); Albumin Level 3.4 g/dL (3.5-5.1); Alkaline Phosphatase 35 U/L (38-126); Anion Gap 8 mmol/L (4-12); Aspartate Amino Transferase 101 U/L (17-59); Blood Urea Nitrogen 32 mg/dL (9-20); Calcium 8.2 mg/dL (8.4-10.2); Carbon Dioxide 33 mmol/L (22-30); Chloride 109 mmol/L (98-107); Estimated CRCL calculation 56 ml/min; Estimated Glomerular Filt Rate 57; Glucose 150 mg/dL (65-110); Magnesium 2.5 mg/dL (1.6-2.3); Phosphorus 2.4 mg/dL (2.5-4.5); Potassium 3.7 mmol/L (3.4-5.0); Sodium 150 mmol/L (137-145)
[2025-01-23] MEDS: METOCLOPRAMIDE HCL INJ 10 MG/2 ML VIAL IV PUSH ×3 (05:26→17:09)
[2025-01-23] MEDS: MAG HYDROX/AL HYDROX/SIMETH 30 ML UDC PO ×3 (05:26→22:12)
--- NOTE | 2025-01-23 06:03 | PC.NURSE ---
This nurse spoke with Dr. Ellis r/t pt's high blood pressure and HR. Pt currently on diltizam drip for Afib RVR with nicardipine drip on hold for low pressures. with orders to give PRN dose of hydralazine and 5mg IVP of metoprolol tartate. If blood pressure continues to run high, restart nicardipine drip.
[2025-01-23] MEDS: METOPROLOL TARTRATE INJ 5 MG/5 ML VIAL IV PUSH (06:13)
[2025-01-23] MEDS: hydrALAZINE HCL 20 MG/ML VIAL IV PUSH (06:13)
[2025-01-23] MEDS: METOPROLOL TARTRATE 25 MG TABLET FEED TUBE ×2 (08:44→20:37)
[2025-01-23] MEDS: ENOXAPARIN 40 MG/0.4 ML SYRINGE SUB-Q (08:45)
[2025-01-23] MEDS: QUEtiapine FUMARATE 25 MG TABLET PO ×2 (08:45→20:38)
[2025-01-23] MEDS: amLODIPine BESYLATE 5 MG TABLET FEED TUBE (08:45)
[2025-01-23] MEDS: BISACODYL 10 MG SUPPOSITORY RECTAL (08:49)
[2025-01-23] MEDS: LIDOCAINE 5% PATCH 1 PATCH TRANSDERM (08:54)
[2025-01-23] MEDS: PANTOPRAZOLE SODIUM IV 40 MG VIAL IV PUSH ×2 (08:54→20:38)
[2025-01-23] MEDS: KCL 20 MEQ/0.45% NS 1,000 ML 50 ML IV CONT (08:55)
[2025-01-23] MEDS: KCL 20 MEQ/SW 100 ML 100 ML 50 MEQ IVPB (08:55)
--- NOTE | 2025-01-23 08:57 | WPDPN ---
Progress Note: A&P Assessment and Plan (1) Ascending aortic aneurysm: Qualifiers: Presence of rupture: without rupture Qualified Code(s): I71.21 - Aneurysm of the ascending aorta, without rupture Code(s): I71.21 - Aneurysm of the ascending aorta, without rupture Status: Chronic Assessment and Plan: Stable. Once he has recovered from his present health issues he should get an outpatient evaluation by a vascular surgeon for repair of the aneurysm. (2) SBO (small bowel obstruction): Code(s): K56.609 - Unspecified intestinal obstruction, unspecified as to partial versus complete obstruction Status: Acute Assessment and Plan: Resolved. Postop day 6 after exploratory laparotomy and adhesiolysis for high-grade small-bowel obstruction. He has a postoperative ileus. Continue nasogastric tube decompression. Abdomen is less distended but no bowel movement yet. We will go ahead and start a clamping schedule for the NG tube (3) Adynamic ileus: Code(s): K56.0 - Paralytic ileus Status: Acute Assessment and Plan: Continue to try to limit narcotic pain medications. Ambulate to chair when possible. For today due to is a AFib in RVR last night licensed insurance sales agent this morning to get him out of bed today. Will make sure we a PT and OT ordered so they can start in the near future. Continue rectal suppository daily. (4) A-fib: Code(s): I48.91 - Unspecified atrial fibrillation Status: Acute Subjective Date/time seen: 01/23/25 08:57 Interval history: Bed today. Easily converses. No complaints of pain. States he is having some flatus but no documented bowel movements. No nausea. KUB this morning showed some mildly dilated loops of small bowel. There is some 0 contrast in the colon. Still has an ileus. Last night he went into AFib with RVR. Rate is now controlled. White blood cell count essentially normal. Potassium is 3.8 today. Was little bit hypernatremic likely secondary to nasogastric tube suctioning. Fluid status seems to be make this time. Mckinney catheter still in place. Exam GI: Other: Abdomen is obese but soft. Mild distention but midline incision is healing well without redness or drainage. No cellulitis. Objective Data Vital Signs Vital Signs: Vital Signs - 24 hr 01/22/25 10:00 01/22/25 10:00 01/22/25 10:00 Temperature 37.5 C Pulse Rate 67 67 67 Respiratory Rate 23 H Blood Pressure 175/80 H Pulse Oximetry 96 Oxygen Delivery Oxygen Flow Rate Fraction of Inspired Oxygen 01/22/25 11:54 01/22/25 12:00 01/22/25 12:00 Temperature 37.6 C H Pulse Rate 79 81 Respiratory Rate 21 H Blood Pressure 190/85 H 156/74 H Pulse Oximetry 98 98 Oxygen Delivery High Flow Therapy with Na Oxygen Flow Rate 40 Fraction of Inspired Oxygen 45 01/22/25 12:00 01/22/25 13:00 01/22/25 14:00 Temperature 37.2 C Pulse Rate 88 80 75 Respiratory Rate 23 H Blood Pressure 150/78 H 158/75 H Pulse Oximetry 96 Oxygen Delivery Oxygen Flow Rate Fraction of Inspired Oxygen 01/22/25 14:00 01/22/25 14:00 01/22/25 15:13 Temperature Pulse Rate 82 81 82 Respiratory Rate 22 H Blood Pressure 158/75 H Pulse Oximetry 91 Oxygen Delivery High Flow Therapy with Na Oxygen Flow Rate 35 Fraction of Inspired Oxygen 40 01/22/25 15:43 01/22/25 15:43 01/22/25 16:00 Temperature Pulse Rate 71 71 77 Respiratory Rate Blood Pressure 155/79 H 155/79 H 155/104 H Pulse Oximetry Oxygen Delivery Oxygen Flow Rate Fraction of Inspired Oxygen 01/22/25 16:00 01/22/25 16:00 01/22/25 16:00 Temperature 37.2 C Pulse Rate 73 68 Respiratory Rate 14 Blood Pressure 149/78 H Pulse Oximetry 95 96 Oxygen Delivery High Flow Therapy with Na Oxygen Flow Rate 35 Fraction of Inspired Oxygen 40 01/22/25 17:20 01/22/25 17:35 01/22/25 18:00 Temperature 37.2 C Pulse Rate 79 92 89 Respiratory Rate 22 H 22 H Blood Pressure 165/95 H 151/78 H Pulse Oximetry 95 93 Oxygen Delivery High Flow Therapy with Na Oxygen Flow Rate 30 Fraction of Inspired Oxygen 35 01/22/25 18:00 01/22/25 18:00 01/22/25 19:01 Temperature Pulse Rate 89 89 89 Respiratory Rate Blood Pressure 151/68 H 151/68 H Pulse Oximetry Oxygen Delivery Oxygen Flow Rate Fraction of Inspired Oxygen 01/22/25 19:01 01/22/25 19:01 01/22/25 20:00 Temperature Pulse Rate 89 89 Respiratory Rate Blood Pressure 151/68 H 159/80 H Pulse Oximetry 94 Oxygen Delivery High Flow Therapy with Na Oxygen Flow Rate 35 Fraction of Inspired Oxygen 40 01/22/25 20:00 01/22/25 20:00 01/22/25 20:00 Temperature 37.3 C Pulse Rate 87 87 87 Respiratory Rate 22 H 22 H Blood Pressure 157/71 H 157/71 H Pulse Oximetry 94 Oxygen Delivery Oxygen Flow Rate Fraction of Inspired Oxygen 01/22/25 20:00 01/22/25 21:02 01/22/25 21:31 Temperature Pulse Rate 86 90 Respiratory Rate Blood Pressure 150/74 H Pulse Oximetry 94 Oxygen Delivery High Flow Therapy with Na Oxygen Flow Rate 30 Fraction of Inspired Oxygen 35 01/22/25 21:31 01/22/25 22:00 01/22/25 22:00 Temperature 37.3 C Pulse Rate 90 85 85 Respiratory Rate 22 H Blood Pressure 150/74 H 143/81 H 143/81 H Pulse Oximetry 93 Oxygen Delivery Oxygen Flow Rate Fraction of Inspired Oxygen 01/22/25 22:00 01/22/25 22:00 01/22/25 22:36 Temperature Pulse Rate 85 81 136 H Respiratory Rate 22 H Blood Pressure Pulse Oximetry Oxygen Delivery Oxygen Flow Rate Fraction of Inspired Oxygen 01/22/25 22:36 01/22/25 22:45 01/23/25 00:00 Temperature Pulse Rate 122 H 118 H 139 H Respiratory Rate 21 H Blood Pressure 111/69 98/64 L Pulse Oximetry Oxygen Delivery Oxygen Flow Rate Fraction of Inspired Oxygen 01/23/25 00:00 01/23/25 00:00 01/23/25 00:00 Temperature 37.6 C Pulse Rate 139 H 139 H Respiratory Rate 21 H Blood Pressure 127/94 H 127/94 H Pulse Oximetry 93 92 Oxygen Delivery High Flow Therapy with Na Oxygen Flow Rate 35 Fraction of Inspired Oxygen 40 01/23/25 00:00 01/23/25 01:00 01/23/25 02:00 Temperature Pulse Rate 139 H 130 H 153 H Respiratory Rate Blood Pressure 114/92 H 127/80 Pulse Oximetry Oxygen Delivery Oxygen Flow Rate Fraction of Inspired Oxygen 01/23/25 02:00 01/23/25 02:00 01/23/25 02:00 Temperature 37.7 C H Pulse Rate 150 H 150 H 150 H Respiratory Rate 23 H 23 H Blood Pressure 127/80 127/80 Pulse Oximetry 95 Oxygen Delivery Oxygen Flow Rate Fraction of Inspired Oxygen 01/23/25 02:00 01/23/25 02:45 01/23/25 04:00 Temperature 37.9 C H Pulse Rate 150 H 149 H 144 H Respiratory Rate 23 H Blood Pressure 140/104 H 168/96 H Pulse Oximetry 93 Oxygen Delivery Oxygen Flow Rate Fraction of Inspired Oxygen 01/23/25 04:00 01/23/25 04:00 01/23/25 04:00 Temperature Pulse Rate 144 H 144 H Respiratory Rate 23 H Blood Pressure 168/96 H Pulse Oximetry 93 Oxygen Delivery High Flow Therapy with Na Oxygen Flow Rate 35 Fraction of Inspired Oxygen 40 01/23/25 04:00 01/23/25 04:00 01/23/25 06:00 Temperature 37.9 C H Pulse Rate 144 H 145 H 145 H Respiratory Rate 20 Blood Pressure 168/96 H 175/126 H Pulse Oximetry 95 Oxygen Delivery Oxygen Flow Rate Fraction of Inspired Oxygen 01/23/25 06:00 01/23/25 06:00 01/23/25 06:00 Temperature Pulse Rate 145 H 175 H 145 H Respiratory Rate 20 Blood Pressure 175/126 H Pulse Oximetry Oxygen Delivery Oxygen Flow Rate Fraction of Inspired Oxygen 01/23/25 06:00 01/23/25 06:13 01/23/25 06:36 Temperature Pulse Rate 145 H 144 H 95 Respiratory Rate Blood Pressure 175/126 H 131/79 Pulse Oximetry Oxygen Delivery Oxygen Flow Rate Fraction of Inspired Oxygen 01/23/25 07:00 01/23/25 08:23 01/23/25 08:29 Temperature Pulse Rate 82 76 Respiratory Rate 28 H Blood Pressure 178/100 H Pulse Oximetry 96 96 Oxygen Delivery High Flow Therapy with Na Nasal Cannula Oxygen Flow Rate 30 3 Fraction of Inspired Oxygen 35 01/23/25 08:44 Temperature Pulse Rate 82 Respiratory Rate Blood Pressure Pulse Oximetry Oxygen Delivery Oxygen Flow Rate Fraction of Inspired Oxygen Intake/Output Intake/Output: Intake & Output 01/20/25 01/21/25 01/22/25 01/23/25 23:59 23:59 23:59 23:59 Intake Total 2272.5 1518.0 1899.6 240.3 Output Total 1400 1900 1650 1500 Balance 872.5 -382.0 249.6 -1259.7 Meds/Results Medications: Active Medications Generic Name Dose Route Start Last Admin Trade Name Freq PRN Reason Stop Dose Admin Acetaminophen 650 mg 01/21/25 10:59 Acetaminophen Elixir 325 Mg/10.15 Ml Udc PO Q6H PRN Mild Pain (1-3) or Fever Al Hydrox/Mg Hydrox/Simethicone 30 ml 01/18/25 19:20 01/23/25 05:26 Mag Hydrox/Al Hydrox/Simeth 30 Ml Udc PO 30 ml Q8HR [facility] Administration Amlodipine Besylate 5 mg 01/23/25 09:00 01/23/25 08:45 Amlodipine Besylate 5 Mg Tablet FEED TUBE 5 mg DAILY [facility] Administration Bisacodyl 10 mg 01/20/25 09:00 01/23/25 08:49 Bisacodyl 10 Mg Suppository RECTAL 10 mg QAM A[facility]INE Administration Dextrose 12.5 gm 01/18/25 15:51 Dextrose 50% 25 Gm/50 Ml Syringe IV PUSH PRN PRN Hypoglycemia Protocol Enoxaparin Sodium 40 mg 01/19/25 11:45 01/23/25 08:45 Enoxaparin 40 Mg/0.4 Ml Syringe SUB-Q 40 mg DAILY [facility] Administration Glucagon 1 mg 01/18/25 15:51 Glucagon For Inj 1 Mg Vial IM PRN PRN Hypoglycemia Protocol Glucose 15 gm 01/18/25 15:51 Glucose Oral Gel 15 Gm Of Glucse In 37.5 Gm Tube PO PRN PRN Hypoglycemia Protocol Hydralazine HCl 20 mg 01/22/25 10:25 01/23/25 06:13 Hydralazine Hcl 20 Mg/Ml Vial IV PUSH 20 mg Q4H PRN Administration Blood Pressure - High Piperacillin/Tazobactam/Dextrose 3.375 gm in 50 mls @ 100 mls/hr 01/17/25 02:00 01/23/25 08:44 Zosyn 3.375 Gm/Ns 50 Ml IVPB 100 mls/hr Q6H [facility] Administration Dextrose 1,000 mls @ 100 mls/hr 01/18/25 15:51 Dextrose 5% 1,000 Ml IVPB PRN PRN Hypoglycemia Protocol Nicardipine/Sodium Chloride 20 mg in 200 mls @ 50 mls/hr 01/22/25 10:25 01/23/25 07:00 Cardene 20 Mg/200 Ml Ns IV CONT 5 mg/hr .Q4H AUG[facility]INE 50 mls/hr Titration Protocol 5 MG/HR Potassium Chloride/Sodium Chloride 1,000 mls @ 50 mls/hr 01/23/25 09:00 Kcl 20 Meq/0.45% Ns IV CONT 01/24/25 08:59 .Q20H [facility] Potassium Chloride 100 mls @ 50 mls/hr 01/23/25 08:30 Kcl 20 Meq/Sw 100 Ml IVPB 01/23/25 10:29 ONCE ONE Insulin Aspart 2 - 5 units 01/21/25 12:00 01/23/25 05:27 Insulin Aspart (*Bkc) 100 Units/Ml SUB-Q Not Given Q6H [facility] Protocol Levothyroxine Sodium 25 mcg 01/24/25 06:30 Levothyroxine Sodium 25 Mcg Tablet PO DAILY@0630 [facility] Lidocaine 1 patch 01/19/25 13:35 01/22/25 08:21 Lidocaine 5% Patch TRANSDERM 1 patch DAILY [facility] Administration Melatonin 3 mg 01/19/25 22:39 01/19/25 23:16 Melatonin 3 Mg Tablet PO 3 mg HS PRN Administration Insomnia Metoclopramide HCl 10 mg 01/19/25 00:00 01/23/25 05:26 Metoclopramide Hcl Inj 10 Mg/2 Ml Vial IV PUSH 10 mg Q6HR [facility] Administration Metoprolol Tartrate 25 mg 01/23/25 09:00 01/23/25 08:44 Metoprolol Tartrate 25 Mg Tablet FEED TUBE 25 mg Q12HR [facility] Administration Ondansetron HCl 4 mg 01/17/25 19:07 01/17/25 22:44 Ondansetron Inj 4 Mg/2 Ml Vial IV PUSH 4 mg Q4H PRN Administration Nausea Pantoprazole Sodium 40 mg 01/17/25 22:30 01/22/25 21:24 Pantoprazole Sodium Iv 40 Mg Vial IV PUSH 40 mg Q12HR [facility] Administration Quetiapine Fumarate 25 mg 01/21/25 21:00 01/23/25 08:45 Quetiapine Fumarate 25 Mg Tablet PO 25 mg Q12HR [facility] Administration Radiology Results: ITS Impressions Abdomen/Pelvis CT 01/17/25 18:07 IMPRESSION: Ascending aortic aneurysm measuring up to 5.6 cm. The descending thoracic aorta is mildly dilated to 3.1 cm. Consider nonemergent but timely outpatient CT angiography of the chest and appropriate referral for monitoring/potential intervention. Mild esophagitis/gastritis. Periesophageal lymphadenopathy. Hepatomegaly with steatosis. Mid small bowel obstruction, transition point in the left lateral abdomen. Small volume ascites. Bladder wall thickening, likely secondary to chronic outlet obstruction from prostatomegaly. Small Bowel X-Ray 01/18/25 15:02 IMPRESSION: 1. Small bowel obstruction. Chest X-Ray 01/23/25 06:19 Impression: Clear lungs. NG tube. Cardiomegaly. Abdomen X-Ray 01/23/25 06:21 Impression: Small bowel obstruction versus postoperative ileus, similar to prior exam. NG tube in place. Labs Labs: Laboratory Results - last 24 hr 01/22/25 01/22/25 01/22/25 12:05 16:48 16:52 WBC RBC Hgb Hct MCV MCH MCHC RDW Plt Count MPV Immature Gran % (Auto) Neut % (Auto) Lymph % (Auto) Leake % (Auto) Eos % (Auto) Baso % (Auto) Lymph # (Auto) Leake # (Auto) Eos # (Auto) Baso # (Auto) Abs Immat Gran (auto) Absolute Neuts (auto) Absolute Nucleated RBC Nucleated RBC % Sodium 148 H Potassium 3.8 Chloride 109 H Carbon Dioxide 28 Anion Gap 11 BUN 35 H Creatinine 1.15 Estim Creat Clear Calc 59 Estimated GFR > 60 Glucose 143 H POC Capillary Glucose 133 H Calcium 8.4 Phosphorus Magnesium 2.6 H Total Bilirubin AST ALT Alkaline Phosphatase Total Protein Albumin 01/22/25 01/22/25 01/23/25 18:13 23:55 04:27 WBC 10.3 H RBC 5.07 Hgb 13.9 L Hct 45.8 MCV 90.3 MCH 27.4 MCHC 30.3 L RDW 14.1 Plt Count 254 MPV 9.3 Immature Gran % (Auto) 0.6 H Neut % (Auto) 75.3 H Lymph % (Auto) 11.0 L Leake % (Auto) 9.8 H Eos % (Auto) 3.0 Baso % (Auto) 0.3 Lymph # (Auto) 1.13 Leake # (Auto) 1.0 H Eos # (Auto) 0.3 Baso # (Auto) 0.0 Abs Immat Gran (auto) 0.06 H Absolute Neuts (auto) 7.8 H Absolute Nucleated RBC 0.000 Nucleated RBC % 0.0 Sodium 150 H Potassium 3.7 Chloride 109 H Carbon Dioxide 33 H Anion Gap 8 BUN 32 H Creatinine 1.22 Estim Creat Clear Calc 56 Estimated GFR 57 L Glucose 150 H POC Capillary Glucose 154 H 152 H Calcium 8.2 L Phosphorus 2.4 L Magnesium 2.5 H Total Bilirubin 1.0 AST 101 H ALT 114 H Alkaline Phosphatase 35 L Total Protein 7.0 Albumin 3.4 L
[2025-01-23] MEDS: niCARdipine 20 MG/200 ML 20 MG/200 ML BAG 50 MG IV CONT ×3 (09:26→22:00)
--- NOTE | 2025-01-23 10:09 | WPDINTPN ---
Progress Note: A&P Assessment and Plan (1) Delirium: Code(s): R41.0 - Disorientation, unspecified Status: Acute Assessment and Plan: Off Precedex infusion. Improved. Much more alert and oriented. Restraints have been discontinued Sitter at bedside Continue Seroquel (2) SBO (small bowel obstruction): Code(s): K56.609 - Unspecified intestinal obstruction, unspecified as to partial versus complete obstruction Status: Acute Assessment and Plan: 02/15: Patient was admitted for abdominal pain, small-bowel obstruction on abdominal CT scan -Surgery was consulted, patient was taken for surgery on 01/18/2025 for high-grade small-bowel obstruction secondary to abdominal adhesions, status post exploratory laparotomy with abdominal adhesiolysis. -continue Zosyn per surgery -. Patient has developed ileus. Patient has NG tube in place which is on continue suction -clinically improved and discussed with general surgery plan to switch to clamp for 6 hours and suction for 6 hours -continue reglan, Dulcolax suppository has been ordered per surgery -continue IV fluids at 50 mL/hour, bowel rest, NG tube decompression, -surgery following closely -01/22: Obstructive series indicated Ileus 02/14: CT scan of the abdomen and pelvis showed mid small-bowel obstruction with transition point in the left lateral abdomen, small volume ascites, hepatomegaly with steatosis, bladder wall thickening likely secondary to chronic outlet obstruction prostatomegaly. Ascending aortic aneurysm measuring 5.6 cm, descending thoracic aorta is mildly dilated to 3.1 cm mild esophagitis/gastritis, periesophageal lymphadenopathy. (3) Hypertension: Qualifiers: Hypertension type: primary hypertension Qualified Code(s): I10 - Essential (primary) hypertension Code(s): I10 - Essential (primary) hypertension Status: Acute Assessment and Plan: Patient currently on nicardipine and Cardizem infusion with improvement since he has abdominal aortic aneurysm. DC Cardizem infusion as patient is in sinus rhythm. Start p.o. metoprolol and Norvasc Wean off nicardipine (4) Diabetes mellitus with renal manifestation: Code(s): E11.29 - Type 2 diabetes mellitus with other diabetic kidney complication Status: Acute Assessment and Plan: Continue Accu-Cheks and sliding scale insulin q.6 hours (5) BPH (benign prostatic hyperplasia): Code(s): N40.0 - Benign prostatic hyperplasia without lower urinary tract symptoms Status: Acute Assessment and Plan: Mckinney catheter in place, patient had adequate urine output (6) Atrial fibrillation with RVR: Code(s): I48.91 - Unspecified atrial fibrillation Status: Acute Assessment and Plan: Converted to sinus rhythm. Discontinue Cardizem infusion Start p.o. metoprolol Systemic anticoagulation is on hold due to surgery (7) Acute respiratory failure: Code(s): J96.00 - Acute respiratory failure, unspecified whether with hypoxia or hypercapnia Status: Acute Assessment and Plan: Patient was on Airvo. Switched to nasal cannula. Likely atelectasis. Add incentive spirometry. Plan DVT prophylaxis: Enoxaparin subcutaneous Stress ulcer prophylaxis: Protonix IV q.12 hours Nutrition: NG tube management as above, npo Code Status: Full code Switched to nasal cannula, incentive spirometry PT OT Critical Care Time Spent: 32 minutes Discussed with surgery team Due to a high probability of clinically significant, life threatening deterioration, the patient required my highest level of preparedness to intervene emergently and I personally spent this critical care time directly and personally managing the patient. This critical care time included obtaining a history; examining the patient; pulse oximetry; ordering and review of studies; arranging urgent treatment with development of a management plan; evaluation of patient's response to treatment; frequent reassessment; and discussions with other providers. It was exclusive of separately billable procedures and treating other patients and teaching time. Please see Assessment and Plan section and the rest of the note for further information on patient assessment and treatment This dictation may have been done utilizing a voice recognition system. Attempts have been made to correct errors. However, there may be uncorrected grammatical, spelling, and recognitions errors present. Subjective Date/time seen: 01/23/25 Patient states he be feels much better today and denies any new complaints. He is passing gas. He states he is hungry and would like to eat food. He has NG tube in place which is to continuous suction. He denies any nausea vomiting abdominal pain chest pain shortness a breath cough. All other systems were reviewed and were negative. Interval history: Reason for consult: Delirium, agitation, combativeness requiring Precedex infusion 01/22/2025: Patient seen examined the ICU, is more awake this morning, oriented x3, NG tube in place. Denies any abdominal pain, nausea, vomiting, shortness of breath. Patient currently is on high-flow therapy as he desaturates when he sleeping likely due to obstructive sleep apnea. Bedside RN states that patient has been passing gas but no bowel movements. Review of Systems Review of Systems: All systems reviewed & are unremarkable except as noted in HPI and below Exam Narrative: General: Obese gentleman, currently no acute distress HEENT:? Pupils equal reactive, sclera is clear, on high-flow therapy Neck:? Supple, thick neck Respiratory:? Coarse breath sounds bilaterally, decreased at bases, adequate air entry, no wheezing Cardiac: Irregularly irregular, rate controlled Abdomen:? Soft, nontender, obese, protuberant, hypoactive but present bowel sounds, midline incision with dressing in place Extremities:? Palpable pedal pulses, bilateral lower extremity edema Neuro:? Patient is more awake this morning, alert and oriented x3, able to answer questions and follow simple commands Skin:? Abdominal Dressing in place Psych:? Unable to assess at this time Objective Data Vital Signs Vital Signs: Vital Signs - 24 hr 01/22/25 11:54 01/22/25 12:00 01/22/25 12:00 Temperature 37.6 C H Pulse Rate 79 81 Respiratory Rate 21 H Blood Pressure 190/85 H 156/74 H Pulse Oximetry 98 98 Oxygen Delivery High Flow Therapy with Na Oxygen Flow Rate 40 Fraction of Inspired Oxygen 45 01/22/25 12:00 01/22/25 13:00 01/22/25 14:00 Temperature 37.2 C Pulse Rate 88 80 75 Respiratory Rate 23 H Blood Pressure 150/78 H 158/75 H Pulse Oximetry 96 Oxygen Delivery Oxygen Flow Rate Fraction of Inspired Oxygen 01/22/25 14:00 01/22/25 14:00 01/22/25 15:13 Temperature Pulse Rate 82 81 82 Respiratory Rate 22 H Blood Pressure 158/75 H Pulse Oximetry 91 Oxygen Delivery High Flow Therapy with Na Oxygen Flow Rate 35 Fraction of Inspired Oxygen 40 01/22/25 15:43 01/22/25 15:43 01/22/25 16:00 Temperature Pulse Rate 71 71 77 Respiratory Rate Blood Pressure 155/79 H 155/79 H 155/104 H Pulse Oximetry Oxygen Delivery Oxygen Flow Rate Fraction of Inspired Oxygen 01/22/25 16:00 01/22/25 16:00 01/22/25 16:00 Temperature 37.2 C Pulse Rate 73 68 Respiratory Rate 14 Blood Pressure 149/78 H Pulse Oximetry 95 96 Oxygen Delivery High Flow Therapy with Na Oxygen Flow Rate 35 Fraction of Inspired Oxygen 40 01/22/25 17:20 01/22/25 17:35 01/22/25 18:00 Temperature 37.2 C Pulse Rate 79 92 89 Respiratory Rate 22 H 22 H Blood Pressure 165/95 H 151/78 H Pulse Oximetry 95 93 Oxygen Delivery High Flow Therapy with Na Oxygen Flow Rate 30 Fraction of Inspired Oxygen 35 01/22/25 18:00 01/22/25 18:00 01/22/25 19:01 Temperature Pulse Rate 89 89 89 Respiratory Rate Blood Pressure 151/68 H 151/68 H Pulse Oximetry Oxygen Delivery Oxygen Flow Rate Fraction of Inspired Oxygen 01/22/25 19:01 01/22/25 19:01 01/22/25 20:00 Temperature Pulse Rate 89 89 Respiratory Rate Blood Pressure 151/68 H 159/80 H Pulse Oximetry 94 Oxygen Delivery High Flow Therapy with Na Oxygen Flow Rate 35 Fraction of Inspired Oxygen 40 01/22/25 20:00 01/22/25 20:00 01/22/25 20:00 Temperature 37.3 C Pulse Rate 87 87 87 Respiratory Rate 22 H 22 H Blood Pressure 157/71 H 157/71 H Pulse Oximetry 94 Oxygen Delivery Oxygen Flow Rate Fraction of Inspired Oxygen 01/22/25 20:00 01/22/25 21:02 01/22/25 21:31 Temperature Pulse Rate 86 90 Respiratory Rate Blood Pressure 150/74 H Pulse Oximetry 94 Oxygen Delivery High Flow Therapy with Na Oxygen Flow Rate 30 Fraction of Inspired Oxygen 35 01/22/25 21:31 01/22/25 22:00 01/22/25 22:00 Temperature 37.3 C Pulse Rate 90 85 85 Respiratory Rate 22 H Blood Pressure 150/74 H 143/81 H 143/81 H Pulse Oximetry 93 Oxygen Delivery Oxygen Flow Rate Fraction of Inspired Oxygen 01/22/25 22:00 01/22/25 22:00 01/22/25 22:36 Temperature Pulse Rate 85 81 136 H Respiratory Rate 22 H Blood Pressure Pulse Oximetry Oxygen Delivery Oxygen Flow Rate Fraction of Inspired Oxygen 01/22/25 22:36 01/22/25 22:45 01/23/25 00:00 Temperature Pulse Rate 122 H 118 H 139 H Respiratory Rate 21 H Blood Pressure 111/69 98/64 L Pulse Oximetry Oxygen Delivery Oxygen Flow Rate Fraction of Inspired Oxygen 01/23/25 00:00 01/23/25 00:00 01/23/25 00:00 Temperature 37.6 C Pulse Rate 139 H 139 H Respiratory Rate 21 H Blood Pressure 127/94 H 127/94 H Pulse Oximetry 93 92 Oxygen Delivery High Flow Therapy with Na Oxygen Flow Rate 35 Fraction of Inspired Oxygen 40 01/23/25 00:00 01/23/25 01:00 01/23/25 02:00 Temperature Pulse Rate 139 H 130 H 153 H Respiratory Rate Blood Pressure 114/92 H 127/80 Pulse Oximetry Oxygen Delivery Oxygen Flow Rate Fraction of Inspired Oxygen 01/23/25 02:00 01/23/25 02:00 01/23/25 02:00 Temperature 37.7 C H Pulse Rate 150 H 150 H 150 H Respiratory Rate 23 H 23 H Blood Pressure 127/80 127/80 Pulse Oximetry 95 Oxygen Delivery Oxygen Flow Rate Fraction of Inspired Oxygen 01/23/25 02:00 01/23/25 02:45 01/23/25 04:00 Temperature 37.9 C H Pulse Rate 150 H 149 H 144 H Respiratory Rate 23 H Blood Pressure 140/104 H 168/96 H Pulse Oximetry 93 Oxygen Delivery Oxygen Flow Rate Fraction of Inspired Oxygen 01/23/25 04:00 01/23/25 04:00 01/23/25 04:00 Temperature Pulse Rate 144 H 144 H Respiratory Rate 23 H Blood Pressure 168/96 H Pulse Oximetry 93 Oxygen Delivery High Flow Therapy with Na Oxygen Flow Rate 35 Fraction of Inspired Oxygen 40 01/23/25 04:00 01/23/25 04:00 01/23/25 06:00 Temperature 37.9 C H Pulse Rate 144 H 145 H 145 H Respiratory Rate 20 Blood Pressure 168/96 H 175/126 H Pulse Oximetry 95 Oxygen Delivery Oxygen Flow Rate Fraction of Inspired Oxygen 01/23/25 06:00 01/23/25 06:00 01/23/25 06:00 Temperature Pulse Rate 145 H 175 H 145 H Respiratory Rate 20 Blood Pressure 175/126 H Pulse Oximetry Oxygen Delivery Oxygen Flow Rate Fraction of Inspired Oxygen 01/23/25 06:00 01/23/25 06:13 01/23/25 06:36 Temperature Pulse Rate 145 H 144 H 95 Respiratory Rate Blood Pressure 175/126 H 131/79 Pulse Oximetry Oxygen Delivery Oxygen Flow Rate Fraction of Inspired Oxygen 01/23/25 07:00 01/23/25 08:00 01/23/25 08:23 Temperature Pulse Rate 82 83 Respiratory Rate Blood Pressure 178/100 H 167/77 H Pulse Oximetry 96 Oxygen Delivery High Flow Therapy with Na Oxygen Flow Rate 30 Fraction of Inspired Oxygen 35 01/23/25 08:29 01/23/25 08:44 01/23/25 09:25 Temperature Pulse Rate 76 82 83 Respiratory Rate 28 H Blood Pressure 159/80 H Pulse Oximetry 96 Oxygen Delivery Nasal Cannula Oxygen Flow Rate 3 Fraction of Inspired Oxygen 01/23/25 09:26 Temperature Pulse Rate 83 Respiratory Rate Blood Pressure 159/80 H Pulse Oximetry Oxygen Delivery Oxygen Flow Rate Fraction of Inspired Oxygen Intake/Output Intake/Output: Intake & Output 01/20/25 01/21/25 01/22/25 01/23/25 23:59 23:59 23:59 23:59 Intake Total 2272.5 1518.0 1899.6 351.6 Output Total 1400 1900 1650 1500 Balance 872.5 -382.0 249.6 -1148.4 Meds/Results Medications: Active Medications Generic Name Dose Route Start Last Admin Trade Name Freq PRN Reason Stop Dose Admin Acetaminophen 650 mg 01/21/25 10:59 Acetaminophen Elixir 325 Mg/10.15 Ml Udc PO Q6H PRN Mild Pain (1-3) or Fever Al Hydrox/Mg Hydrox/Simethicone 30 ml 01/18/25 19:20 01/23/25 05:26 Mag Hydrox/Al Hydrox/Simeth 30 Ml Udc PO 30 ml Q8HR AUGUSTINE Administration Amlodipine Besylate 5 mg 01/23/25 09:00 01/23/25 08:45 Amlodipine Besylate 5 Mg Tablet FEED TUBE 5 mg DAILY AUGUSTINE Administration Bisacodyl 10 mg 01/20/25 09:00 01/23/25 08:49 Bisacodyl 10 Mg Suppository RECTAL 10 mg QAM AUGUSTINE Administration Dextrose 12.5 gm 01/18/25 15:51 Dextrose 50% 25 Gm/50 Ml Syringe IV PUSH PRN PRN Hypoglycemia Protocol Enoxaparin Sodium 40 mg 01/19/25 11:45 01/23/25 08:45 Enoxaparin 40 Mg/0.4 Ml Syringe SUB-Q 40 mg DAILY AUGUSTINE Administration Glucagon 1 mg 01/18/25 15:51 Glucagon For Inj 1 Mg Vial IM PRN PRN Hypoglycemia Protocol Glucose 15 gm 01/18/25 15:51 Glucose Oral Gel 15 Gm Of Glucse In 37.5 Gm Tube PO PRN PRN Hypoglycemia Protocol Hydralazine HCl 20 mg 01/22/25 10:25 01/23/25 06:13 Hydralazine Hcl 20 Mg/Ml Vial IV PUSH 20 mg Q4H PRN Administration Blood Pressure - High Piperacillin/Tazobactam/Dextrose 3.375 gm in 50 mls @ 100 mls/hr 01/17/25 02:00 01/23/25 08:44 Zosyn 3.375 Gm/Ns 50 Ml IVPB 100 mls/hr Q6H AUG[facility]INE Administration Dextrose 1,000 mls @ 100 mls/hr 01/18/25 15:51 Dextrose 5% 1,000 Ml IVPB PRN PRN Hypoglycemia Protocol Nicardipine/Sodium Chloride 20 mg in 200 mls @ 50 mls/hr 01/22/25 10:25 01/23/25 09:26 Cardene 20 Mg/200 Ml Ns IV CONT 5 mg/hr .Q4H AUGUSTINE 50 mls/hr Administration Protocol 5 MG/HR Potassium Chloride/Sodium Chloride 1,000 mls @ 50 mls/hr 01/23/25 09:00 01/23/25 08:55 Kcl 20 Meq/0.45% Ns IV CONT 01/24/25 08:59 50 mls/hr .Q20H AUG[facility]INE Administration Potassium Chloride 100 mls @ 50 mls/hr 01/23/25 08:30 01/23/25 08:55 Kcl 20 Meq/Sw 100 Ml IVPB 01/23/25 10:29 50 mls/hr ONCE ONE Administration Insulin Aspart 2 - 5 units 01/21/25 12:00 01/23/25 05:27 Insulin Aspart (*Bkc) 100 Units/Ml SUB-Q Not Given Q6H AUGUSTINE Protocol Levothyroxine Sodium 25 mcg 01/24/25 06:30 Levothyroxine Sodium 25 Mcg Tablet PO DAILY@0630 AUG[facility]INE Lidocaine 1 patch 01/19/25 13:35 01/23/25 08:54 Lidocaine 5% Patch TRANSDERM 1 patch DAILY AUG[facility]INE Administration Melatonin 3 mg 01/19/25 22:39 01/19/25 23:16 Melatonin 3 Mg Tablet PO 3 mg HS PRN Administration Insomnia Metoclopramide HCl 10 mg 01/19/25 00:00 01/23/25 05:26 Metoclopramide Hcl Inj 10 Mg/2 Ml Vial IV PUSH 10 mg Q6HR AUG[facility]INE Administration Metoprolol Tartrate 25 mg 01/23/25 09:00 01/23/25 08:44 Metoprolol Tartrate 25 Mg Tablet FEED TUBE 25 mg Q12HR AUG[facility]INE Administration Ondansetron HCl 4 mg 01/17/25 19:07 01/17/25 22:44 Ondansetron Inj 4 Mg/2 Ml Vial IV PUSH 4 mg Q4H PRN Administration Nausea Pantoprazole Sodium 40 mg 01/17/25 22:30 01/23/25 08:54 Pantoprazole Sodium Iv 40 Mg Vial IV PUSH 40 mg Q12HR AUG[facility]INE Administration Quetiapine Fumarate 25 mg 01/21/25 21:00 01/23/25 08:45 Quetiapine Fumarate 25 Mg Tablet PO 25 mg Q12HR AUGUSTINE Administration Radiology Results: ITS Impressions Abdomen/Pelvis CT 01/17/25 18:07 IMPRESSION: Ascending aortic aneurysm measuring up to 5.6 cm. The descending thoracic aorta is mildly dilated to 3.1 cm. Consider nonemergent but timely outpatient CT angiography of the chest and appropriate referral for monitoring/potential intervention. Mild esophagitis/gastritis. Periesophageal lymphadenopathy. Hepatomegaly with steatosis. Mid small bowel obstruction, transition point in the left lateral abdomen. Small volume ascites. Bladder wall thickening, likely secondary to chronic outlet obstruction from prostatomegaly. Small Bowel X-Ray 01/18/25 15:02 IMPRESSION: 1. Small bowel obstruction. Chest X-Ray 01/23/25 06:19 Impression: Clear lungs. NG tube. Cardiomegaly. Abdomen X-Ray 01/23/25 06:21 Impression: Small bowel obstruction versus postoperative ileus, similar to prior exam. NG tube in place. Labs Labs: Laboratory Results - last 24 hr 01/22/25 01/22/25 01/22/25 12:05 16:48 16:52 WBC RBC Hgb Hct MCV MCH MCHC RDW Plt Count MPV Immature Gran % (Auto) Neut % (Auto) Lymph % (Auto) [place] % (Auto) Eos % (Auto) Baso % (Auto) Lymph # (Auto) [place] # (Auto) Eos # (Auto) Baso # (Auto) Abs Immat Gran (auto) Absolute Neuts (auto) Absolute Nucleated RBC Nucleated RBC % Sodium 148 H Potassium 3.8 Chloride 109 H Carbon Dioxide 28 Anion Gap 11 BUN 35 H Creatinine 1.15 Estim Creat Clear Calc 59 Estimated GFR > 60 Glucose 143 H POC Capillary Glucose 133 H Calcium 8.4 Phosphorus Magnesium 2.6 H Total Bilirubin AST ALT Alkaline Phosphatase Total Protein Albumin 01/22/25 01/22/25 01/23/25 18:13 23:55 04:27 WBC 10.3 H RBC 5.07 Hgb 13.9 L Hct 45.8 MCV 90.3 MCH 27.4 MCHC 30.3 L RDW 14.1 Plt Count 254 MPV 9.3 Immature Gran % (Auto) 0.6 H Neut % (Auto) 75.3 H Lymph % (Auto) 11.0 L [place] % (Auto) 9.8 H Eos % (Auto) 3.0 Baso % (Auto) 0.3 Lymph # (Auto) 1.13 [place] # (Auto) 1.0 H Eos # (Auto) 0.3 Baso # (Auto) 0.0 Abs Immat Gran (auto) 0.06 H Absolute Neuts (auto) 7.8 H Absolute Nucleated RBC 0.000 Nucleated RBC % 0.0 Sodium 150 H Potassium 3.7 Chloride 109 H Carbon Dioxide 33 H Anion Gap 8 BUN 32 H Creatinine 1.22 Estim Creat Clear Calc 56 Estimated GFR 57 L Glucose 150 H POC Capillary Glucose 154 H 152 H Calcium 8.2 L Phosphorus 2.4 L Magnesium 2.5 H Total Bilirubin 1.0 AST 101 H ALT 114 H Alkaline Phosphatase 35 L Total Protein 7.0 Albumin 3.4 L Quality VTE Prophylaxis VTE prophylaxis: mechanical ordered and pharmacologic ordered
[2025-01-23 11:42] LABS: Glucose Point of Care 144 mg/dl (65-105)
--- NOTE | 2025-01-23 13:11 | PCPTNOTE ---
Attempted to see patient for PT, however per RN asked to hold on PT for today due to elevated heart rate.
[2025-01-23 17:16] LABS: Glucose Point of Care 147 mg/dl (65-105)
--- NOTE | 2025-01-23 17:46 | P.PNIM_ITS ---
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 Patient received Ativan, Zyprexa. Not combative and agitated so was transferred to the ICU for Precedex infusion. Patient did receive a bolus of the Precedex -01/22: Patient more awake, alert, oriented -restraints in place -, bedside sitter -continue Seroquel for 2 (2) SBO (small bowel obstruction): Code(s): K56.609 - Unspecified intestinal obstruction, unspecified as to partial versus complete obstruction Status: Acute Assessment and Plan: 02/15: Patient was admitted for abdominal pain, small-bowel obstruction on abdominal CT scan -Surgery was consulted, patient was taken for surgery on 01/18/2025 for high- grade small-bowel obstruction secondary to abdominal adhesions, status post exploratory laparotomy with abdominal adhesiolysis. -continue Zosyn per surgery -NG tube in place to low intermittent suction -Reglan, Dulcolax suppository has been ordered per surgery -will discontinue ibuprofen, since patient has chronic kidney disease -also on Mylanta for esophagitis/gastritis -pain control with Tylenol elixir -continue IV fluids at 50 mL/hour, bowel rest, NG tube decompression, -surgery following closely -01/22: Obstructive series indicated Ileus 02/14: CT scan of the abdomen and pelvis showed mid small-bowel obstruction with transition point in the left lateral abdomen, small volume ascites, hepatomegaly with steatosis, bladder wall thickening likely secondary to chronic outlet obstruction prostatomegaly. Ascending aortic aneurysm measuring 5.6 cm, descending thoracic aorta is mildly dilated to 3.1 cm mild esop hagitis/gastritis, periesophageal lymphadenopathy. (3) Hypertension: Qualifiers: Hypertension type: primary hypertension Qualified Code(s): I10 - Essential (primary) hypertension Code(s): I10 - Essential (primary) hypertension Status: Acute Assessment and Plan: Started patient on nicardipine infusion with improvement since he has abdominal aortic aneurysm. -p.r.n. hydralazine (4) Diabetes mellitus with renal manifestation: Code(s): E11.29 - Type 2 diabetes mellitus with other diabetic kidney complication Status: Acute Assessment and Plan: Continue Accu-Cheks and sliding scale insulin q.6 hours (5) BPH (benign prostatic hyperplasia): Code(s): N40.0 - Benign prostatic hyperplasia without lower urinary tract symptoms Status: Acute Assessment and Plan: Mckinney catheter in place, patient had adequate urine output Plan patient was found to have High-grade small-bowel obstruction secondary to abdominal adhesions was seen by surgery service had exploratory laparotomy, abdominal adhesiolysis on 01/18, however patient became confused removed his IV, and was wondering in the hospital, patient was brought back to the room, patient was aggressive, transferred to ICU for sedation with Precedex, patient is now off Precedex, more alert and eating ice, stats does some gas, patient is clinically improving. patient will be seen by surgery service and further recommendation to follow. Subjective Date/time seen: 01/23/25 17:46 Interval history: Patient admitted for treatment of SBO and plan for exploratory laparotomy. Patient still hypertensive will increase IV metoprolol to 5 mg scheduled and schedule his IV hydralazine. Patient refusing NG tube but denies ABD pain, distention slightly improved. Patient reported flatulence but still no BM. H&P-Narrative He presents with a few hours' history of central abdominal pain; it is localized; rated 10 in intensity, aggravated by meals/drinks, alleviated by fasting; associated with bilious but non-bloody emesis, malaise, anorexia, chills and rigors. His last BM was days ago; he denies chest pain, dizziness, LOC, flank pain, dysuria, hematuria or H[place]. patient was found to have High-grade small-bowel obstruction secondary to abdominal adhesions was seen by surgery service had exploratory laparotomy, abdominal adhesiolysis on 01/18, however patient became confused removed his IV, and was wondering in the hospital, patient was brought back to the room, patient was aggressive, transferred to ICU for sedation with Precedex, patient is now off Precedex, more alert and eating ice, stats does some gas, patient is clinically improving. patient will be seen by surgery service and further recommendation to follow. Review of Systems Review of Systems: ROS unobtainable: Yes unobtainable due to mental status Exam Narrative: Patient is comfortable, NAD HEENT: NG tube in place LUNGS:CTA ABD: distended Lower extremities: no edema SKIN: nonjaundiced Neuro: Sedated Objective Data Vital Signs Vital Signs: Vital Signs - 24 hr 01/22/25 18:00 01/22/25 18:00 01/22/25 18:00 Temperature 37.2 C Pulse Rate 89 89 89 Respiratory Rate 22 H Blood Pressure 151/78 H 151/68 H Pulse Oximetry 93 Oxygen Delivery Oxygen Flow Rate Fraction of Inspired Oxygen 01/22/25 19:01 01/22/25 19:01 01/22/25 19:01 Temperature Pulse Rate 89 89 89 Respiratory Rate Blood Pressure 151/68 H 151/68 H 159/80 H Pulse Oximetry Oxygen Delivery Oxygen Flow Rate Fraction of Inspired Oxygen 01/22/25 20:00 01/22/25 20:00 01/22/25 20:00 Temperature 37.3 C Pulse Rate 87 87 Respiratory Rate 22 H Blood Pressure 157/71 H 157/71 H Pulse Oximetry 94 94 Oxygen Delivery High Flow Therapy with Na Oxygen Flow Rate 35 Fraction of Inspired Oxygen 40 01/22/25 20:00 01/22/25 20:00 01/22/25 21:02 Temperature Pulse Rate 87 86 Respiratory Rate 22 H Blood Pressure Pulse Oximetry 94 Oxygen Delivery High Flow Therapy with Na Oxygen Flow Rate 30 Fraction of Inspired Oxygen 35 01/22/25 21:31 01/22/25 21:31 01/22/25 22:00 Temperature Pulse Rate 90 90 85 Respiratory Rate Blood Pressure 150/74 H 150/74 H 143/81 H Pulse Oximetry Oxygen Delivery Oxygen Flow Rate Fraction of Inspired Oxygen 01/22/25 22:00 01/22/25 22:00 01/22/25 22:00 Temperature 37.3 C Pulse Rate 85 85 81 Respiratory Rate 22 H 22 H Blood Pressure 143/81 H Pulse Oximetry 93 Oxygen Delivery Oxygen Flow Rate Fraction of Inspired Oxygen 01/22/25 22:36 01/22/25 22:36 01/22/25 22:45 Temperature Pulse Rate 136 H 122 H 118 H Respiratory Rate Blood Pressure 111/69 98/64 L Pulse Oximetry Oxygen Delivery Oxygen Flow Rate Fraction of Inspired Oxygen 01/23/25 00:00 01/23/25 00:00 01/23/25 00:00 Temperature Pulse Rate 139 H 139 H Respiratory Rate 21 H Blood Pressure 127/94 H Pulse Oximetry 93 Oxygen Delivery High Flow Therapy with Na Oxygen Flow Rate 35 Fraction of Inspired Oxygen 40 01/23/25 00:00 01/23/25 00:00 01/23/25 01:00 Temperature 37.6 C Pulse Rate 139 H 139 H 130 H Respiratory Rate 21 H Blood Pressure 127/94 H 114/92 H Pulse Oximetry 92 Oxygen Delivery Oxygen Flow Rate Fraction of Inspired Oxygen 01/23/25 02:00 01/23/25 02:00 01/23/25 02:00 Temperature Pulse Rate 153 H 150 H 150 H Respiratory Rate 23 H Blood Pressure 127/80 127/80 Pulse Oximetry Oxygen Delivery Oxygen Flow Rate Fraction of Inspired Oxygen 01/23/25 02:00 01/23/25 02:00 01/23/25 02:45 Temperature 37.7 C H Pulse Rate 150 H 150 H 149 H Respiratory Rate 23 H Blood Pressure 127/80 140/104 H Pulse Oximetry 95 Oxygen Delivery Oxygen Flow Rate Fraction of Inspired Oxygen 01/23/25 04:00 01/23/25 04:00 01/23/25 04:00 Temperature 37.9 C H Pulse Rate 144 H 144 H Respiratory Rate 23 H Blood Pressure 168/96 H 168/96 H Pulse Oximetry 93 93 Oxygen Delivery High Flow Therapy with Na Oxygen Flow Rate 35 Fraction of Inspired Oxygen 40 01/23/25 04:00 01/23/25 04:00 01/23/25 04:00 Temperature Pulse Rate 144 H 144 H 145 H Respiratory Rate 23 H Blood Pressure 168/96 H Pulse Oximetry Oxygen Delivery Oxygen Flow Rate Fraction of Inspired Oxygen 01/23/25 06:00 01/23/25 06:00 01/23/25 06:00 Temperature 37.9 C H Pulse Rate 145 H 145 H 175 H Respiratory Rate 20 Blood Pressure 175/126 H 175/126 H Pulse Oximetry 95 Oxygen Delivery Oxygen Flow Rate Fraction of Inspired Oxygen 01/23/25 06:00 01/23/25 06:00 01/23/25 06:13 Temperature Pulse Rate 145 H 145 H 144 H Respiratory Rate 20 Blood Pressure 175/126 H Pulse Oximetry Oxygen Delivery Oxygen Flow Rate Fraction of Inspired Oxygen 01/23/25 06:36 01/23/25 07:00 01/23/25 08:00 Temperature Pulse Rate 95 82 83 Respiratory Rate Blood Pressure 131/79 178/100 H 167/77 H Pulse Oximetry Oxygen Delivery Oxygen Flow Rate Fraction of Inspired Oxygen 01/23/25 08:00 01/23/25 08:00 01/23/25 08:00 Temperature 37.7 C H Pulse Rate 83 83 Respiratory Rate 21 H Blood Pressure 183/86 H 167/77 H Pulse Oximetry 93 93 Oxygen Delivery Nasal Cannula Oxygen Flow Rate 30 Fraction of Inspired Oxygen 35 01/23/25 08:00 01/23/25 08:23 01/23/25 08:29 Temperature Pulse Rate 81 76 Respiratory Rate 28 H Blood Pressure Pulse Oximetry 96 96 Oxygen Delivery High Flow Therapy with Na Nasal Cannula Oxygen Flow Rate 30 3 Fraction of Inspired Oxygen 35 01/23/25 08:44 01/23/25 09:00 01/23/25 09:25 Temperature Pulse Rate 82 83 83 Respiratory Rate Blood Pressure 139/75 159/80 H Pulse Oximetry Oxygen Delivery Oxygen Flow Rate Fraction of Inspired Oxygen 01/23/25 09:26 01/23/25 10:00 01/23/25 10:00 Temperature 37.6 C H Pulse Rate 83 76 71 Respiratory Rate 21 H Blood Pressure 159/80 H 126/69 126/69 Pulse Oximetry 94 Oxygen Delivery Oxygen Flow Rate Fraction of Inspired Oxygen 01/23/25 10:00 01/23/25 10:15 01/23/25 10:30 Temperature Pulse Rate 75 72 71 Respiratory Rate Blood Pressure 116/73 138/75 Pulse Oximetry Oxygen Delivery Oxygen Flow Rate Fraction of Inspired Oxygen 01/23/25 12:00 01/23/25 12:00 01/23/25 12:00 Temperature 36.4 C L Pulse Rate 74 74 Respiratory Rate 19 Blood Pressure 132/88 128/74 Pulse Oximetry 96 96 Oxygen Delivery Nasal Cannula Oxygen Flow Rate 3 Fraction of Inspired Oxygen 01/23/25 12:00 01/23/25 12:15 01/23/25 13:00 Temperature Pulse Rate 71 75 77 Respiratory Rate Blood Pressure 144/72 H 171/83 H Pulse Oximetry Oxygen Delivery Oxygen Flow Rate Fraction of Inspired Oxygen 01/23/25 13:15 01/23/25 13:35 01/23/25 13:35 Temperature Pulse Rate 75 81 81 Respiratory Rate Blood Pressure 164/108 H 134/71 134/71 Pulse Oximetry Oxygen Delivery Oxygen Flow Rate Fraction of Inspired Oxygen 01/23/25 14:00 01/23/25 14:00 01/23/25 14:00 Temperature Pulse Rate 76 79 79 Respiratory Rate 20 Blood Pressure 133/70 133/70 Pulse Oximetry 94 Oxygen Delivery Oxygen Flow Rate Fraction of Inspired Oxygen 01/23/25 14:15 01/23/25 14:22 01/23/25 16:00 Temperature Pulse Rate 70 75 78 Respiratory Rate Blood Pressure 149/59 H 167/84 H Pulse Oximetry 95 Oxygen Delivery Nasal Cannula Oxygen Flow Rate 3 Fraction of Inspired Oxygen 01/23/25 16:15 01/23/25 17:00 01/23/25 17:08 Temperature Pulse Rate 78 77 75 Respiratory Rate Blood Pressure 166/75 H 158/76 H 158/76 H Pulse Oximetry Oxygen Delivery Oxygen Flow Rate Fraction of Inspired Oxygen Intake/Output Intake/Output: Intake & Output 01/20/25 01/21/25 01/22/25 01/23/25 23:59 23:59 23:59 23:59 Intake Total 2272.5 1518.0 1899.6 675.6 Output Total 1400 1900 1650 1500 Balance 872.5 -382.0 249.6 -824.4 Meds/Results Medications: Active Medications Generic Name Dose Route Start Last Admin Trade Name Freq PRN Reason Stop Dose Admin Acetaminophen 650 mg 01/21/25 10:59 Acetaminophen Elixir 325 Mg/10.15 Ml Udc PO Q6H PRN Mild Pain (1-3) or Fever Al Hydrox/Mg Hydrox/Simethicone 30 ml 01/18/25 19:20 01/23/25 13:23 Mag Hydrox/Al Hydrox/Simeth 30 Ml Udc PO 30 ml Q8HR AUGUSTINE Administration Amlodipine Besylate 5 mg 01/23/25 09:00 01/23/25 08:45 Amlodipine Besylate 5 Mg Tablet FEED TUBE 5 mg DAILY AUGUSTINE Administration Bisacodyl 10 mg 01/20/25 09:00 01/23/25 08:49 Bisacodyl 10 Mg Suppository RECTAL 10 mg QAM AUGUSTINE Administration Dextrose 12.5 gm 01/18/25 15:51 Dextrose 50% 25 Gm/50 Ml Syringe IV PUSH PRN PRN Hypoglycemia Protocol Enoxaparin Sodium 40 mg 01/19/25 11:45 01/23/25 08:45 Enoxaparin 40 Mg/0.4 Ml Syringe SUB-Q 40 mg DAILY AUGUSTINE Administration Glucagon 1 mg 01/18/25 15:51 Glucagon For Inj 1 Mg Vial IM PRN PRN Hypoglycemia Protocol Glucose 15 gm 01/18/25 15:51 Glucose Oral Gel 15 Gm Of Glucse In 37.5 Gm Tube PO PRN PRN Hypoglycemia Protocol Hydralazine HCl 20 mg 01/22/25 10:25 01/23/25 06:13 Hydralazine Hcl 20 Mg/Ml Vial IV PUSH 20 mg Q4H PRN Administration Blood Pressure - High Piperacillin/Tazobactam/Dextrose 3.375 gm in 50 mls @ 100 mls/hr 01/17/25 02:00 01/23/25 13:53 Zosyn 3.375 Gm/Ns 50 Ml IVPB Infused Q6H AUGUSTINE Infusion Dextrose 1,000 mls @ 100 mls/hr 01/18/25 15:51 Dextrose 5% 1,000 Ml IVPB PRN PRN Hypoglycemia Protocol Nicardipine/Sodium Chloride 20 mg in 200 mls @ 25 mls/hr 01/22/25 10:25 01/23/25 17:08 Cardene 20 Mg/200 Ml Ns IV CONT 5 mg/hr .Q8H AUGUSTINE 50 mls/hr Administration Protocol 2.5 MG/HR Potassium Chloride/Sodium Chloride 1,000 mls @ 50 mls/hr 01/23/25 09:00 01/23/25 08:55 Kcl 20 Meq/0.45% Ns IV CONT 01/24/25 08:59 50 mls/hr .Q20H AUGUSTINE Administration Insulin Aspart 2 - 5 units 01/21/25 12:00 01/23/25 17:23 Insulin Aspart (*Bkc) 100 Units/Ml SUB-Q Not Given Q6H AUGUSTINE Protocol Levothyroxine Sodium 25 mcg 01/24/25 06:30 Levothyroxine Sodium 25 Mcg Tablet PO DAILY@0630 AUGUSTINE Lidocaine 1 patch 01/19/25 13:35 01/23/25 08:54 Lidocaine 5% Patch TRANSDERM 1 patch DAILY AUG[facility]INE Administration Melatonin 3 mg 01/19/25 22:39 01/19/25 23:16 Melatonin 3 Mg Tablet PO 3 mg HS PRN Administration Insomnia Metoclopramide HCl 10 mg 01/19/25 00:00 01/23/25 17:09 Metoclopramide Hcl Inj 10 Mg/2 Ml Vial IV PUSH 10 mg Q6HR AUGUSTINE Administration Metoprolol Tartrate 25 mg 01/23/25 09:00 01/23/25 08:44 Metoprolol Tartrate 25 Mg Tablet FEED TUBE 25 mg Q12HR AUGUSTINE Administration Ondansetron HCl 4 mg 01/17/25 19:07 01/17/25 22:44 Ondansetron Inj 4 Mg/2 Ml Vial IV PUSH 4 mg Q4H PRN Administration Nausea Pantoprazole Sodium 40 mg 01/17/25 22:30 01/23/25 08:54 Pantoprazole Sodium Iv 40 Mg Vial IV PUSH 40 mg Q12HR AUGUSTINE Administration Quetiapine Fumarate 25 mg 01/21/25 21:00 01/23/25 08:45 Quetiapine Fumarate 25 Mg Tablet PO 25 mg Q12HR AUGUSTINE Administration Radiology Results: ITS Impressions Abdomen/Pelvis CT 01/17/25 18:07 IMPRESSION: Ascending aortic aneurysm measuring up to 5.6 cm. The descending thoracic aorta is mildly dilated to 3.1 cm. Consider nonemergent but timely outpatient CT angiography of the chest and appropriate referral for monitoring/potential intervention. Mild esophagitis/gastritis. Periesophageal lymphadenopathy. Hepatomegaly with steatosis. Mid small bowel obstruction, transition point in the left lateral abdomen. Small volume ascites. Bladder wall thickening, likely secondary to chronic outlet obstruction from prostatomegaly. Small Bowel X-Ray 01/18/25 15:02 IMPRESSION: 1. Small bowel obstruction. Chest X-Ray 01/23/25 06:19 Impression: Clear lungs. NG tube. Cardiomegaly. Abdomen X-Ray 01/23/25 06:21 Impression: Small bowel obstruction versus postoperative ileus, similar to prior exam. NG tube in place. Labs Labs: Laboratory Results - last 24 hr 01/22/25 01/22/25 01/22/25 16:48 18:13 23:55 WBC RBC Hgb Hct MCV MCH MCHC RDW Plt Count MPV Immature Gran % (Auto) Neut % (Auto) Lymph % (Auto) [place] % (Auto) Eos % (Auto) Baso % (Auto) Lymph # (Auto) [place] # (Auto) Eos # (Auto) Baso # (Auto) Abs Immat Gran (auto) Absolute Neuts (auto) Absolute Nucleated RBC Nucleated RBC % Sodium Potassium Chloride Carbon Dioxide Anion Gap BUN Creatinine Estim Creat Clear Calc Estimated GFR Glucose POC Capillary Glucose 154 H 152 H Calcium Phosphorus Magnesium 2.6 H Total Bilirubin AST ALT Alkaline Phosphatase Total Protein Albumin 01/23/25 01/23/25 01/23/25 04:27 11:29 17:13 WBC 10.3 H RBC 5.07 Hgb 13.9 L Hct 45.8 MCV 90.3 MCH 27.4 MCHC 30.3 L RDW 14.1 Plt Count 254 MPV 9.3 Immature Gran % (Auto) 0.6 H Neut % (Auto) 75.3 H Lymph % (Auto) 11.0 L [place] % (Auto) 9.8 H Eos % (Auto) 3.0 Baso % (Auto) 0.3 Lymph # (Auto) 1.13 [place] # (Auto) 1.0 H Eos # (Auto) 0.3 Baso # (Auto) 0.0 Abs Immat Gran (auto) 0.06 H Absolute Neuts (auto) 7.8 H Absolute Nucleated RBC 0.000 Nucleated RBC % 0.0 Sodium 150 H Potassium 3.7 Chloride 109 H Carbon Dioxide 33 H Anion Gap 8 BUN 32 H Creatinine 1.22 Estim Creat Clear Calc 56 Estimated GFR 57 L Glucose 150 H POC Capillary Glucose 144 H 147 H Calcium 8.2 L Phosphorus 2.4 L Magnesium 2.5 H Total Bilirubin 1.0 AST 101 H ALT 114 H Alkaline Phosphatase 35 L Total Protein 7.0 Albumin 3.4 L
[2025-01-23] MEDS: niCARdipine 20 MG/200 ML 20 MG/200 ML BAG 100 MG IV CONT (19:50)
[2025-01-23 23:34] LABS: Glucose Point of Care 138 mg/dl (65-105)
[2025-01-24] VITALS (33 sets, daily range): BP systolic 120–175; BP diastolic 60–96; PULSE 56–83; RESP 14–23; TEMP 36.4–37.2; O2SAT 92–98; BMI 44.4
[2025-01-24] MEDS: niCARdipine 20 MG/200 ML 20 MG/200 ML BAG 100 MG IV CONT ×2 (00:45→02:45)
[2025-01-24] MEDS: METOCLOPRAMIDE HCL INJ 10 MG/2 ML VIAL IV PUSH ×5 (00:52→23:50)
[2025-01-24] MEDS: PIPERACILLN/TAZ 3.375GM/NS50ML 3.375 GM/50 ML BAG IVPB ×4 (01:06→20:30)
--- NOTE | 2025-01-24 01:30 | PC.NURSE ---
Pt attempted to get out bed and pull at lines. Staff redirected pt back into bed. Pt easily redirected, but verbally aggressive.
[2025-01-24] MEDS: hydrALAZINE HCL 20 MG/ML VIAL IV PUSH ×3 (02:21→23:51)
[2025-01-24 04:31] LABS: Basophils Percent Auto 0.4 % (0.2-1.2); Eosinophils Absolute Auto 0.2 K/mm3 (0-0.3); Eosinophils Percent Auto 2.3 % (0-4.4); Hematocrit 45.1 % (42.0-52.0); Hemoglobin 13.8 g/dL (14.0-18.0); Immature Granulocyte Absolute 0.05 K/mm3 (0.00-0.031); Immature Granulocyte Percent A 0.5 % (0-0.5); Lymphocytes Percent Auto 9.4 % (18.3-44.2); Mean Corpuscular HGB Conc 30.6 g/dl (32-36); Mean Corpuscular Hemoglobin 27.9 pg (26-34); Mean Corpuscular Volume 91.1 fl (80-100); Mean Platelet Volume 9.1 fl (7.4-10.4); Monocytes Absolute Auto 0.8 K/mm3 (0.1-0.6); Monocytes Percent Auto 8.4 % (2.6-8.5); Neutrophils Absolute Auto 7.6 K/mm3 (1.3-6.7); Platelet Count Result 237 k/mm3 (150-375); Red Blood Count 4.95 M/mm3 (4.6-6.20); Red Cell Distribution Width 14.3 % (11.5-14.5); White Blood Count 9.6 K/mm3 (4.5-10.0)
[2025-01-24 04:43] LABS: Alanine Aminotransferase 143 U/L (6-50); Albumin Level 3.6 g/dL (3.5-5.1); Alkaline Phosphatase 36 U/L (38-126); Anion Gap 8 mmol/L (4-12); Aspartate Amino Transferase 117 U/L (17-59); Bilirubin,Total 0.9 mg/dL (0.2-1.3); Blood Urea Nitrogen 33 mg/dL (9-20); Calcium 8.2 mg/dL (8.4-10.2); Carbon Dioxide 33 mmol/L (22-30); Chloride 111 mmol/L (98-107); Estimated CRCL calculation 59 ml/min; Estimated Glomerular Filt Rate > 60; Glucose 162 mg/dL (65-110); Potassium 3.7 mmol/L (3.4-5.0); Sodium 152 mmol/L (137-145)
--- NOTE | 2025-01-24 05:27 | PC.NURSE ---
Pt refusing to stay in bed at this time until he talks to [facility] police. Pt verbally aggressive, hard to redirect. Pt education given on hospitalization, diagnosis, medications, and safety.
[2025-01-24] MEDS: MAG HYDROX/AL HYDROX/SIMETH 30 ML UDC PO ×3 (05:50→20:30)
[2025-01-24] MEDS: LEVOTHYROXINE SODIUM 25 MCG TABLET PO (05:50)
[2025-01-24] MEDS: niCARdipine 20 MG/200 ML 20 MG/200 ML BAG 125 MG IV CONT ×2 (06:30→08:24)
[2025-01-24] MEDS: amLODIPine BESYLATE 10 MG TABLET FEED TUBE (08:25)
[2025-01-24] MEDS: ENOXAPARIN 40 MG/0.4 ML SYRINGE SUB-Q (08:25)
[2025-01-24] MEDS: lisinopriL 20 MG TABLET PO (08:25)
[2025-01-24] MEDS: METOPROLOL TARTRATE 25 MG TABLET FEED TUBE ×2 (08:25→20:29)
[2025-01-24] MEDS: PANTOPRAZOLE SODIUM IV 40 MG VIAL IV PUSH ×2 (08:25→20:29)
[2025-01-24] MEDS: KCL 20 MEQ/D5W 1,000 ML 1,000 ML 50 ML IV CONT (08:41)
[2025-01-24] MEDS: QUEtiapine FUMARATE 25 MG TABLET PO ×2 (08:58→20:29)
[2025-01-24] MEDS: LIDOCAINE 5% PATCH 1 PATCH TRANSDERM (08:59)
--- NOTE | 2025-01-24 09:52 | WPDINTPN ---
Progress Note: A&P Assessment and Plan (1) Delirium: Code(s): R41.0 - Disorientation, unspecified Status: Acute Assessment and Plan: Off Precedex infusion. Improved. Much more alert and oriented. Restraints have been discontinued Sitter at bedside Continue Seroquel (2) SBO (small bowel obstruction): Code(s): K56.609 - Unspecified intestinal obstruction, unspecified as to partial versus complete obstruction Status: Acute Assessment and Plan: 02/15: Patient was admitted for abdominal pain, small-bowel obstruction on abdominal CT scan -Surgery was consulted, patient was taken for surgery on 01/18/2025 for high-grade small-bowel obstruction secondary to abdominal adhesions, status post exploratory laparotomy with abdominal adhesiolysis. -continue Zosyn per surgery -. Patient has developed ileus. Patient has NG tube in place which is on continue suction -clinically improved and discussed with general surgery plan to switch to clamp for 6 hours and suction for 6 hours -continue reglan, Dulcolax suppository has been ordered per surgery -continue IV fluids at 50 mL/hour, bowel rest, NG tube decompression, -surgery following closely -01/22: Obstructive series indicated Ileus 02/14: CT scan of the abdomen and pelvis showed mid small-bowel obstruction with transition point in the left lateral abdomen, small volume ascites, hepatomegaly with steatosis, bladder wall thickening likely secondary to chronic outlet obstruction prostatomegaly. Ascending aortic aneurysm measuring 5.6 cm, descending thoracic aorta is mildly dilated to 3.1 cm mild esophagitis/gastritis, periesophageal lymphadenopathy. (3) Hypertension: Qualifiers: Hypertension type: primary hypertension Qualified Code(s): I10 - Essential (primary) hypertension Code(s): I10 - Essential (primary) hypertension Status: Acute Assessment and Plan: Patient currently on nicardipine infusion with improvement since he has abdominal aortic aneurysm. DC Cardizem infusion as patient is in sinus rhythm. Continue p.o. metoprolol and Increase Norvasc to 10 mg Resume lisinopril Wean off nicardipine (4) Diabetes mellitus with renal manifestation: Code(s): E11.29 - Type 2 diabetes mellitus with other diabetic kidney complication Status: Acute Assessment and Plan: Continue Accu-Cheks and sliding scale insulin q.6 hours (5) BPH (benign prostatic hyperplasia): Code(s): N40.0 - Benign prostatic hyperplasia without lower urinary tract symptoms Status: Acute Assessment and Plan: Mckinney catheter in place, patient had adequate urine output (6) Atrial fibrillation with RVR: Code(s): I48.91 - Unspecified atrial fibrillation Status: Acute Assessment and Plan: Converted to sinus rhythm. Discontinue Cardizem infusion Continue p.o. metoprolol Systemic anticoagulation is on hold and resumption as per General surgery (7) Acute respiratory failure: Code(s): J96.00 - Acute respiratory failure, unspecified whether with hypoxia or hypercapnia Status: Acute Assessment and Plan: Currently on nasal cannula. Likely atelectasis. Continue incentive spirometry. PT OT Plan DVT prophylaxis: Enoxaparin subcutaneous Stress ulcer prophylaxis: Protonix IV q.12 hours Nutrition: NG tube management as above, npo Code Status: Full code Switched to nasal cannula, incentive spirometry PT OT Subjective Date/time seen: 01/24/25 Patient had agitation overnight. Requested nurse to help him sit in a recliner so he could sleep. Patient slept in his recliner. Continues to be on Cardene infusion. Passing gas but no bowel movement. NG tube in place. Had episode of distention yesterday but denies any abdominal pain at this time. No nausea vomiting. No fever chest pain shortness a breath Interval history: Reason for consult: Delirium, agitation, combativeness requiring Precedex infusion Review of Systems Review of Systems: All systems reviewed & are unremarkable except as noted in HPI and below Exam Narrative: General: Obese gentleman, currently no acute distress HEENT:? Pupils equal reactive, sclera is clear, on high-flow therapy Neck:? Supple, thick neck Respiratory:? Coarse breath sounds bilaterally, decreased at bases, adequate air entry, no wheezing Cardiac: Irregularly irregular, rate controlled Abdomen:? Soft, nontender, obese, protuberant, hypoactive but present bowel sounds, midline incision with dressing in place Extremities:? Palpable pedal pulses, bilateral lower extremity edema Neuro:? Patient is more awake this morning, alert and oriented x3, able to answer questions and follow simple commands Skin:? Abdominal Dressing in place Psych:? Unable to assess at this time Objective Data Vital Signs Vital Signs: Vital Signs - 24 hr 01/23/25 10:00 01/23/25 10:00 01/23/25 10:00 Temperature 37.6 C H Pulse Rate 76 71 75 Respiratory Rate 21 H Blood Pressure 126/69 126/69 Pulse Oximetry 94 Oxygen Delivery Oxygen Flow Rate 01/23/25 10:15 01/23/25 10:30 01/23/25 12:00 Temperature 36.4 C L Pulse Rate 72 71 74 Respiratory Rate 19 Blood Pressure 116/73 138/75 132/88 Pulse Oximetry 96 Oxygen Delivery Oxygen Flow Rate 01/23/25 12:00 01/23/25 12:00 01/23/25 12:00 Temperature Pulse Rate 74 71 Respiratory Rate Blood Pressure 128/74 Pulse Oximetry 96 Oxygen Delivery Nasal Cannula Oxygen Flow Rate 3 01/23/25 12:15 01/23/25 13:00 01/23/25 13:15 Temperature Pulse Rate 75 77 75 Respiratory Rate Blood Pressure 144/72 H 171/83 H 164/108 H Pulse Oximetry Oxygen Delivery Oxygen Flow Rate 01/23/25 13:35 01/23/25 13:35 01/23/25 14:00 Temperature Pulse Rate 81 81 76 Respiratory Rate Blood Pressure 134/71 134/71 133/70 Pulse Oximetry Oxygen Delivery Oxygen Flow Rate 01/23/25 14:00 01/23/25 14:00 01/23/25 14:15 Temperature Pulse Rate 79 79 70 Respiratory Rate 20 Blood Pressure 133/70 149/59 H Pulse Oximetry 94 Oxygen Delivery Oxygen Flow Rate 01/23/25 14:22 01/23/25 16:00 01/23/25 16:00 Temperature Pulse Rate 75 78 Respiratory Rate Blood Pressure 167/84 H Pulse Oximetry 95 95 Oxygen Delivery Nasal Cannula Nasal Cannula Oxygen Flow Rate 3 3 01/23/25 16:00 01/23/25 16:00 01/23/25 16:15 Temperature 36.6 C Pulse Rate 77 75 78 Respiratory Rate 16 Blood Pressure 159/100 H 166/75 H Pulse Oximetry Oxygen Delivery Oxygen Flow Rate 01/23/25 17:00 01/23/25 17:08 01/23/25 18:00 Temperature Pulse Rate 77 75 89 Respiratory Rate Blood Pressure 158/76 H 158/76 H 170/79 H Pulse Oximetry Oxygen Delivery Oxygen Flow Rate 01/23/25 18:00 01/23/25 18:00 01/23/25 18:15 Temperature Pulse Rate 89 89 86 Respiratory Rate 24 H Blood Pressure 170/79 H 168/77 H Pulse Oximetry Oxygen Delivery Oxygen Flow Rate 01/23/25 19:04 01/23/25 19:50 01/23/25 19:50 Temperature Pulse Rate 87 90 90 Respiratory Rate Blood Pressure 166/77 H 161/85 H 161/85 H Pulse Oximetry Oxygen Delivery Oxygen Flow Rate 01/23/25 20:00 01/23/25 20:00 01/23/25 20:00 Temperature 36.7 C Pulse Rate 81 82 Respiratory Rate 24 H Blood Pressure 161/88 H Pulse Oximetry 95 95 Oxygen Delivery Nasal Cannula Oxygen Flow Rate 3 01/23/25 20:37 01/23/25 22:00 01/23/25 22:00 Temperature Pulse Rate 86 72 72 Respiratory Rate Blood Pressure 139/81 139/81 Pulse Oximetry Oxygen Delivery Oxygen Flow Rate 01/23/25 22:00 01/23/25 22:28 01/23/25 23:30 Temperature Pulse Rate 68 68 80 Respiratory Rate 21 H Blood Pressure 139/81 166/82 H Pulse Oximetry 95 Oxygen Delivery Oxygen Flow Rate 01/24/25 00:00 01/24/25 00:00 01/24/25 00:00 Temperature 36.6 C Pulse Rate 76 76 Respiratory Rate 23 H Blood Pressure 175/96 H 175/96 H Pulse Oximetry 98 98 Oxygen Delivery Nasal Cannula Oxygen Flow Rate 3 01/24/25 00:00 01/24/25 00:45 01/24/25 00:45 Temperature Pulse Rate 76 80 80 Respiratory Rate Blood Pressure 168/91 H 168/91 H Pulse Oximetry Oxygen Delivery Oxygen Flow Rate 01/24/25 02:00 01/24/25 02:00 01/24/25 02:00 Temperature Pulse Rate 79 80 80 Respiratory Rate 20 Blood Pressure 169/96 H 169/96 H Pulse Oximetry 97 Oxygen Delivery Oxygen Flow Rate 01/24/25 02:45 01/24/25 02:45 01/24/25 03:45 Temperature Pulse Rate 77 77 64 Respiratory Rate Blood Pressure 157/76 H 157/76 H 124/61 Pulse Oximetry Oxygen Delivery Oxygen Flow Rate 01/24/25 04:00 01/24/25 04:00 01/24/25 04:00 Temperature 36.7 C Pulse Rate 62 62 Respiratory Rate 22 H Blood Pressure 142/60 H 142/60 H Pulse Oximetry 92 92 Oxygen Delivery Nasal Cannula Oxygen Flow Rate 3 01/24/25 04:00 01/24/25 05:15 01/24/25 06:00 Temperature Pulse Rate 61 76 83 Respiratory Rate Blood Pressure 165/86 H 160/77 H Pulse Oximetry Oxygen Delivery Oxygen Flow Rate 01/24/25 06:00 01/24/25 06:00 01/24/25 06:30 Temperature Pulse Rate 83 83 82 Respiratory Rate 19 Blood Pressure 164/90 H 169/84 H Pulse Oximetry 96 Oxygen Delivery Oxygen Flow Rate 01/24/25 06:30 01/24/25 08:00 01/24/25 08:06 Temperature 37.1 C Pulse Rate 82 66 71 Respiratory Rate 14 Blood Pressure 169/84 H 151/81 H 156/84 H Pulse Oximetry 97 Oxygen Delivery Oxygen Flow Rate 01/24/25 08:24 01/24/25 08:25 01/24/25 09:09 Temperature 36.4 C Pulse Rate 71 73 Respiratory Rate Blood Pressure 156/84 H Pulse Oximetry Oxygen Delivery Oxygen Flow Rate 01/24/25 09:48 Temperature Pulse Rate 60 Respiratory Rate Blood Pressure 120/75 Pulse Oximetry Oxygen Delivery Oxygen Flow Rate Intake/Output Intake/Output: Intake & Output 01/21/25 01/22/25 01/23/25 01/24/25 23:59 23:59 23:59 23:59 Intake Total 1518.0 1899.6 1320.6 1060 Output Total 1900 1650 2100 1900 Balance -382.0 249.6 -779.4 -840 Meds/Results Medications: Active Medications Generic Name Dose Route Start Last Admin Trade Name Freq PRN Reason Stop Dose Admin Acetaminophen 650 mg 01/21/25 10:59 Acetaminophen Elixir 325 Mg/10.15 Ml Udc PO Q6H PRN Mild Pain (1-3) or Fever Al Hydrox/Mg Hydrox/Simethicone 30 ml 01/18/25 19:20 01/24/25 05:50 Mag Hydrox/Al Hydrox/Simeth 30 Ml Udc PO 30 ml Q8HR AUGUSTINE Administration Amlodipine Besylate 10 mg 01/24/25 09:00 01/24/25 08:25 Amlodipine Besylate 10 Mg Tablet FEED TUBE 10 mg DAILY AUGUSTINE Administration Bisacodyl 10 mg 01/20/25 09:00 01/23/25 08:49 Bisacodyl 10 Mg Suppository RECTAL 10 mg QAM AUGUSTINE Administration Dextrose 12.5 gm 01/18/25 15:51 Dextrose 50% 25 Gm/50 Ml Syringe IV PUSH PRN PRN Hypoglycemia Protocol Enoxaparin Sodium 40 mg 01/19/25 11:45 01/24/25 08:25 Enoxaparin 40 Mg/0.4 Ml Syringe SUB-Q 40 mg DAILY AUGUSTINE Administration Glucagon 1 mg 01/18/25 15:51 Glucagon For Inj 1 Mg Vial IM PRN PRN Hypoglycemia Protocol Glucose 15 gm 01/18/25 15:51 Glucose Oral Gel 15 Gm Of Glucse In 37.5 Gm Tube PO PRN PRN Hypoglycemia Protocol Hydralazine HCl 20 mg 01/22/25 10:25 01/24/25 02:21 Hydralazine Hcl 20 Mg/Ml Vial IV PUSH 20 mg Q4H PRN Administration Blood Pressure - High Piperacillin/Tazobactam/Dextrose 3.375 gm in 50 mls @ 100 mls/hr 01/17/25 02:00 01/24/25 08:54 Zosyn 3.375 Gm/Ns 50 Ml IVPB Infused Q6H AUGUSTINE Infusion Dextrose 1,000 mls @ 100 mls/hr 01/18/25 15:51 Dextrose 5% 1,000 Ml IVPB PRN PRN Hypoglycemia Protocol Nicardipine/Sodium Chloride 20 mg in 200 mls @ 100 mls/hr 01/22/25 10:25 01/24/25 09:48 Cardene 20 Mg/200 Ml Ns IV CONT 10 mg/hr .Q2H AUGUSTINE 100 mls/hr Titration Protocol 10 MG/HR Potassium Chloride/Dextrose 1,000 mls @ 50 mls/hr 01/24/25 08:15 01/24/25 08:41 Kcl 20 Meq/D5w 1,000 Ml IV CONT 50 mls/hr .Q20H AUGUSTINE Administration Insulin Aspart 2 - 5 units 01/21/25 12:00 01/24/25 05:51 Insulin Aspart (*Bkc) 100 Units/Ml SUB-Q Not Given Q6H AUGUSTINE Protocol Levothyroxine Sodium 25 mcg 01/24/25 06:30 01/24/25 05:50 Levothyroxine Sodium 25 Mcg Tablet PO 25 mcg DAILY@0630 AUGUSTINE Administration Lidocaine 1 patch 01/19/25 13:35 01/24/25 08:59 Lidocaine 5% Patch TRANSDERM 1 patch DAILY AUG[facility]INE Administration Lisinopril 20 mg 01/24/25 09:00 01/24/25 08:25 Lisinopril 20 Mg Tablet PO 20 mg QAM AUGUSTINE Administration Melatonin 3 mg 01/19/25 22:39 01/19/25 23:16 Melatonin 3 Mg Tablet PO 3 mg HS PRN Administration Insomnia Metoclopramide HCl 10 mg 01/19/25 00:00 01/24/25 05:50 Metoclopramide Hcl Inj 10 Mg/2 Ml Vial IV PUSH 10 mg Q6HR AUGUSTINE Administration Metoprolol Tartrate 25 mg 01/23/25 09:00 01/24/25 08:25 Metoprolol Tartrate 25 Mg Tablet FEED TUBE 25 mg Q12HR AUGUSTINE Administration Ondansetron HCl 4 mg 01/17/25 19:07 01/17/25 22:44 Ondansetron Inj 4 Mg/2 Ml Vial IV PUSH 4 mg Q4H PRN Administration Nausea Pantoprazole Sodium 40 mg 01/17/25 22:30 01/24/25 08:25 Pantoprazole Sodium Iv 40 Mg Vial IV PUSH 40 mg Q12HR AUGUSTINE Administration Quetiapine Fumarate 25 mg 01/21/25 21:00 01/24/25 08:58 Quetiapine Fumarate 25 Mg Tablet PO 25 mg Q12HR AUGUSTINE Administration Radiology Results: ITS Impressions Abdomen/Pelvis CT 01/17/25 18:07 IMPRESSION: Ascending aortic aneurysm measuring up to 5.6 cm. The descending thoracic aorta is mildly dilated to 3.1 cm. Consider nonemergent but timely outpatient CT angiography of the chest and appropriate referral for monitoring/potential intervention. Mild esophagitis/gastritis. Periesophageal lymphadenopathy. Hepatomegaly with steatosis. Mid small bowel obstruction, transition point in the left lateral abdomen. Small volume ascites. Bladder wall thickening, likely secondary to chronic outlet obstruction from prostatomegaly. Small Bowel X-Ray 01/18/25 15:02 IMPRESSION: 1. Small bowel obstruction. Chest X-Ray 01/23/25 06:19 Impression: Clear lungs. NG tube. Cardiomegaly. Abdomen X-Ray 01/23/25 06:21 Impression: Small bowel obstruction versus postoperative ileus, similar to prior exam. NG tube in place. Labs Labs: Laboratory Results - last 24 hr 01/23/25 01/23/25 01/23/25 11:29 17:13 23:28 WBC RBC Hgb Hct MCV MCH MCHC RDW Plt Count MPV Immature Gran % (Auto) Neut % (Auto) Lymph % (Auto) Mcintosh % (Auto) Eos % (Auto) Baso % (Auto) Lymph # (Auto) Mcintosh # (Auto) Eos # (Auto) Baso # (Auto) Abs Immat Gran (auto) Absolute Neuts (auto) Absolute Nucleated RBC Nucleated RBC % Sodium Potassium Chloride Carbon Dioxide Anion Gap BUN Creatinine Estim Creat Clear Calc Estimated GFR Glucose POC Capillary Glucose 144 H 147 H 138 H Calcium Total Bilirubin AST ALT Alkaline Phosphatase Total Protein Albumin 01/24/25 04:25 WBC 9.6 RBC 4.95 Hgb 13.8 L Hct 45.1 MCV 91.1 MCH 27.9 MCHC 30.6 L RDW 14.3 Plt Count 237 MPV 9.1 Immature Gran % (Auto) 0.5 Neut % (Auto) 79.0 H Lymph % (Auto) 9.4 L Mcintosh % (Auto) 8.4 Eos % (Auto) 2.3 Baso % (Auto) 0.4 Lymph # (Auto) 0.90 Mcintosh # (Auto) 0.8 H Eos # (Auto) 0.2 Baso # (Auto) 0.0 Abs Immat Gran (auto) 0.05 H Absolute Neuts (auto) 7.6 H Absolute Nucleated RBC 0.000 Nucleated RBC % 0.0 Sodium 152 H Potassium 3.7 Chloride 111 H Carbon Dioxide 33 H Anion Gap 8 BUN 33 H Creatinine 1.14 Estim Creat Clear Calc 59 Estimated GFR > 60 Glucose 162 H POC Capillary Glucose Calcium 8.2 L Total Bilirubin 0.9 AST 117 H ALT 143 H Alkaline Phosphatase 36 L Total Protein 7.0 Albumin 3.6 Quality VTE Prophylaxis VTE prophylaxis: mechanical ordered and pharmacologic ordered
[2025-01-24] MEDS: niCARdipine 20 MG/200 ML 20 MG/200 ML BAG 75 MG IV CONT (10:05)
[2025-01-24] MEDS: BISACODYL 10 MG SUPPOSITORY RECTAL (11:00)
[2025-01-24 11:28] LABS: Glucose Point of Care 148 mg/dl (65-105)
--- NOTE | 2025-01-24 11:46 | WPDPN ---
Progress Note: A&P Assessment and Plan (1) Atrial fibrillation with RVR: Code(s): I48.91 - Unspecified atrial fibrillation Status: Acute Assessment and Plan: Now rate controlled on Cardizem drip. Continue management as per tdp displays analyst. (2) Ascending aortic aneurysm: Qualifiers: Presence of rupture: without rupture Qualified Code(s): I71.21 - Aneurysm of the ascending aorta, without rupture Code(s): I71.21 - Aneurysm of the ascending aorta, without rupture Status: Chronic Assessment and Plan: Incidentally noted on CT scan when he was admitted to the hospital. He is asymptomatic at this time. It is large enough that he will need to seek outpatient evaluation from a vascular surgeon in the future. (3) SBO (small bowel obstruction): Code(s): K56.609 - Unspecified intestinal obstruction, unspecified as to partial versus complete obstruction Status: Acute Assessment and Plan: Resolved after exploratory laparotomy adhesiolysis. All the bowel was viable. He is now postoperative day number 7. (4) Adynamic ileus: Code(s): K56.0 - Paralytic ileus Status: Acute Assessment and Plan: Continues to have this adynamic ileus postoperatively. Continue NG tube decompression. Will put the NG tube back to low continuous suction. Since he is now postoperative day 7. And he still appears to have a prolonged ileus I min into the tdp displays analyst that we start TPN and have a PICC line placed. [employer] Merchandiser will have PICC line placed an order TPN. Subjective Date/time seen: 01/24/25 11:46 Interval history: Patient resting comfortably sitting up in a chair at the bedside this morning. Appears to be sleeping. Sitter is in the room with him. According to the nurses he was up all night pretty agitated and combative. That is been the case for the last couple of nights. Is now starting to get some rest. NG tube output is still high and bilious. No bowel movements or flatus yet. Some faint bowel sounds are noted. Exam GI: Other: Abdomen is obese but soft. Moderate distention is noted. Midline incision is healing well without any redness or drainage. Minimal bowel sounds are noted. Objective Data Vital Signs Vital Signs: Vital Signs - 24 hr 01/23/25 12:00 01/23/25 12:00 01/23/25 12:00 Temperature 36.4 C L Pulse Rate 74 74 Respiratory Rate 19 Blood Pressure 132/88 128/74 Pulse Oximetry 96 96 Oxygen Delivery Nasal Cannula Oxygen Flow Rate 3 01/23/25 12:00 01/23/25 12:15 01/23/25 13:00 Temperature Pulse Rate 71 75 77 Respiratory Rate Blood Pressure 144/72 H 171/83 H Pulse Oximetry Oxygen Delivery Oxygen Flow Rate 01/23/25 13:15 01/23/25 13:35 01/23/25 13:35 Temperature Pulse Rate 75 81 81 Respiratory Rate Blood Pressure 164/108 H 134/71 134/71 Pulse Oximetry Oxygen Delivery Oxygen Flow Rate 01/23/25 14:00 01/23/25 14:00 01/23/25 14:00 Temperature Pulse Rate 76 79 79 Respiratory Rate 20 Blood Pressure 133/70 133/70 Pulse Oximetry 94 Oxygen Delivery Oxygen Flow Rate 01/23/25 14:15 01/23/25 14:22 01/23/25 16:00 Temperature Pulse Rate 70 75 78 Respiratory Rate Blood Pressure 149/59 H 167/84 H Pulse Oximetry 95 Oxygen Delivery Nasal Cannula Oxygen Flow Rate 3 01/23/25 16:00 01/23/25 16:00 01/23/25 16:00 Temperature 36.6 C Pulse Rate 77 75 Respiratory Rate 16 Blood Pressure 159/100 H Pulse Oximetry 95 Oxygen Delivery Nasal Cannula Oxygen Flow Rate 3 01/23/25 16:15 01/23/25 17:00 01/23/25 17:08 Temperature Pulse Rate 78 77 75 Respiratory Rate Blood Pressure 166/75 H 158/76 H 158/76 H Pulse Oximetry Oxygen Delivery Oxygen Flow Rate 01/23/25 18:00 01/23/25 18:00 01/23/25 18:00 Temperature Pulse Rate 89 89 89 Respiratory Rate 24 H Blood Pressure 170/79 H 170/79 H Pulse Oximetry Oxygen Delivery Oxygen Flow Rate 01/23/25 18:15 01/23/25 19:04 01/23/25 19:50 Temperature Pulse Rate 86 87 90 Respiratory Rate Blood Pressure 168/77 H 166/77 H 161/85 H Pulse Oximetry Oxygen Delivery Oxygen Flow Rate 01/23/25 19:50 01/23/25 20:00 01/23/25 20:00 Temperature 36.7 C Pulse Rate 90 81 Respiratory Rate 24 H Blood Pressure 161/85 H 161/88 H Pulse Oximetry 95 95 Oxygen Delivery Nasal Cannula Oxygen Flow Rate 3 01/23/25 20:00 01/23/25 20:37 01/23/25 22:00 Temperature Pulse Rate 82 86 72 Respiratory Rate Blood Pressure 139/81 Pulse Oximetry Oxygen Delivery Oxygen Flow Rate 01/23/25 22:00 01/23/25 22:00 01/23/25 22:28 Temperature Pulse Rate 72 68 68 Respiratory Rate 21 H Blood Pressure 139/81 139/81 Pulse Oximetry 95 Oxygen Delivery Oxygen Flow Rate 01/23/25 23:30 01/24/25 00:00 01/24/25 00:00 Temperature 36.6 C Pulse Rate 80 76 76 Respiratory Rate 23 H Blood Pressure 166/82 H 175/96 H 175/96 H Pulse Oximetry 98 Oxygen Delivery Oxygen Flow Rate 01/24/25 00:00 01/24/25 00:00 01/24/25 00:45 Temperature Pulse Rate 76 80 Respiratory Rate Blood Pressure 168/91 H Pulse Oximetry 98 Oxygen Delivery Nasal Cannula Oxygen Flow Rate 3 01/24/25 00:45 01/24/25 02:00 01/24/25 02:00 Temperature Pulse Rate 80 79 80 Respiratory Rate 20 Blood Pressure 168/91 H 169/96 H 169/96 H Pulse Oximetry 97 Oxygen Delivery Oxygen Flow Rate 01/24/25 02:00 01/24/25 02:45 01/24/25 02:45 Temperature Pulse Rate 80 77 77 Respiratory Rate Blood Pressure 157/76 H 157/76 H Pulse Oximetry Oxygen Delivery Oxygen Flow Rate 01/24/25 03:45 01/24/25 04:00 01/24/25 04:00 Temperature 36.7 C Pulse Rate 64 62 Respiratory Rate 22 H Blood Pressure 124/61 142/60 H Pulse Oximetry 92 92 Oxygen Delivery Nasal Cannula Oxygen Flow Rate 3 01/24/25 04:00 01/24/25 04:00 01/24/25 05:15 Temperature Pulse Rate 62 61 76 Respiratory Rate Blood Pressure 142/60 H 165/86 H Pulse Oximetry Oxygen Delivery Oxygen Flow Rate 01/24/25 06:00 01/24/25 06:00 01/24/25 06:00 Temperature Pulse Rate 83 83 83 Respiratory Rate 19 Blood Pressure 160/77 H 164/90 H Pulse Oximetry 96 Oxygen Delivery Oxygen Flow Rate 01/24/25 06:30 01/24/25 06:30 01/24/25 08:00 Temperature 37.1 C Pulse Rate 82 82 66 Respiratory Rate 14 Blood Pressure 169/84 H 169/84 H 151/81 H Pulse Oximetry 97 Oxygen Delivery Oxygen Flow Rate 01/24/25 08:00 01/24/25 08:06 01/24/25 08:24 Temperature Pulse Rate 71 71 Respiratory Rate Blood Pressure 156/84 H 156/84 H Pulse Oximetry 97 Oxygen Delivery Nasal Cannula Oxygen Flow Rate 3 01/24/25 08:25 01/24/25 09:09 01/24/25 09:48 Temperature 36.4 C Pulse Rate 73 60 Respiratory Rate Blood Pressure 120/75 Pulse Oximetry Oxygen Delivery Oxygen Flow Rate 01/24/25 10:00 01/24/25 10:03 01/24/25 10:05 Temperature Pulse Rate 59 L 56 L 57 L Respiratory Rate 19 Blood Pressure 128/76 128/76 128/76 Pulse Oximetry 95 Oxygen Delivery Oxygen Flow Rate 01/24/25 10:10 01/24/25 10:19 01/24/25 10:30 Temperature Pulse Rate 59 L 59 L 66 Respiratory Rate Blood Pressure 129/71 130/76 131/82 Pulse Oximetry Oxygen Delivery Oxygen Flow Rate 01/24/25 10:45 Temperature Pulse Rate 64 Respiratory Rate Blood Pressure 136/85 Pulse Oximetry Oxygen Delivery Oxygen Flow Rate Intake/Output Intake/Output: Intake & Output 01/21/25 01/22/25 01/23/25 01/24/25 23:59 23:59 23:59 23:59 Intake Total 1518.0 1899.6 1320.6 1103.3 Output Total 1900 1650 2100 1900 Balance -382.0 249.6 -779.4 -796.7 Meds/Results Medications: Active Medications Generic Name Dose Route Start Last Admin Trade Name Freq PRN Reason Stop Dose Admin Acetaminophen 650 mg 01/21/25 10:59 Acetaminophen Elixir 325 Mg/10.15 Ml Udc PO Q6H PRN Mild Pain (1-3) or Fever Al Hydrox/Mg Hydrox/Simethicone 30 ml 01/18/25 19:20 01/24/25 05:50 Mag Hydrox/Al Hydrox/Simeth 30 Ml Udc PO 30 ml Q8HR [facility] Administration Amlodipine Besylate 10 mg 01/24/25 09:00 01/24/25 08:25 Amlodipine Besylate 10 Mg Tablet FEED TUBE 10 mg DAILY [facility] Administration Bisacodyl 10 mg 01/20/25 09:00 01/23/25 08:49 Bisacodyl 10 Mg Suppository RECTAL 10 mg QAM [facility] Administration Dextrose 12.5 gm 01/18/25 15:51 Dextrose 50% 25 Gm/50 Ml Syringe IV PUSH PRN PRN Hypoglycemia Protocol Enoxaparin Sodium 40 mg 01/19/25 11:45 01/24/25 08:25 Enoxaparin 40 Mg/0.4 Ml Syringe SUB-Q 40 mg DAILY [facility] Administration Glucagon 1 mg 01/18/25 15:51 Glucagon For Inj 1 Mg Vial IM PRN PRN Hypoglycemia Protocol Glucose 15 gm 01/18/25 15:51 Glucose Oral Gel 15 Gm Of Glucse In 37.5 Gm Tube PO PRN PRN Hypoglycemia Protocol Hydralazine HCl 20 mg 01/22/25 10:25 01/24/25 02:21 Hydralazine Hcl 20 Mg/Ml Vial IV PUSH 20 mg Q4H PRN Administration Blood Pressure - High Piperacillin/Tazobactam/Dextrose 3.375 gm in 50 mls @ 100 mls/hr 01/17/25 02:00 01/24/25 08:54 Zosyn 3.375 Gm/Ns 50 Ml IVPB Infused Q6H [facility] Infusion Dextrose 1,000 mls @ 100 mls/hr 01/18/25 15:51 Dextrose 5% 1,000 Ml IVPB PRN PRN Hypoglycemia Protocol Nicardipine/Sodium Chloride 20 mg in 200 mls @ 25 mls/hr 01/22/25 10:25 01/24/25 10:45 Cardene 20 Mg/200 Ml Ns IV CONT 0 mg/hr .Q8H [facility] 0 mls/hr Titration Protocol 2.5 MG/HR Potassium Chloride/Dextrose 1,000 mls @ 50 mls/hr 01/24/25 08:15 01/24/25 08:41 Kcl 20 Meq/D5w 1,000 Ml IV CONT 50 mls/hr .Q20H [facility] Administration Dextrose 1,000 mls @ 50 mls/hr 01/24/25 11:38 Dextrose 10% IV CONT .Q20H PRN if PN is interrupted Multivitamins 1.25 ml/ 1,002.5 mls @ 40 mls/hr 01/24/25 14:00 Multivitamins 1.25 ml/ Amino IV CONT Acids/Electrolytes/Dextrose .Q24H [facility] Protocol Insulin Aspart 2 - 5 units 01/21/25 12:00 01/24/25 05:51 Insulin Aspart (*Bkc) 100 Units/Ml SUB-Q Not Given Q6H [facility] Protocol Levothyroxine Sodium 25 mcg 01/24/25 06:30 01/24/25 05:50 Levothyroxine Sodium 25 Mcg Tablet PO 25 mcg DAILY@0630 [facility] Administration Lidocaine 1 patch 01/19/25 13:35 01/24/25 08:59 Lidocaine 5% Patch TRANSDERM 1 patch DAILY [facility] Administration Lisinopril 20 mg 01/24/25 09:00 01/24/25 08:25 Lisinopril 20 Mg Tablet PO 20 mg QAM [facility] Administration Melatonin 3 mg 01/19/25 22:39 01/19/25 23:16 Melatonin 3 Mg Tablet PO 3 mg HS PRN Administration Insomnia Metoclopramide HCl 10 mg 01/19/25 00:00 01/24/25 05:50 Metoclopramide Hcl Inj 10 Mg/2 Ml Vial IV PUSH 10 mg Q6HR [facility] Administration Metoprolol Tartrate 25 mg 01/23/25 09:00 01/24/25 08:25 Metoprolol Tartrate 25 Mg Tablet FEED TUBE 25 mg Q12HR [facility] Administration Ondansetron HCl 4 mg 01/17/25 19:07 01/17/25 22:44 Ondansetron Inj 4 Mg/2 Ml Vial IV PUSH 4 mg Q4H PRN Administration Nausea Pantoprazole Sodium 40 mg 01/17/25 22:30 01/24/25 08:25 Pantoprazole Sodium Iv 40 Mg Vial IV PUSH 40 mg Q12HR [facility] Administration Quetiapine Fumarate 25 mg 01/21/25 21:00 01/24/25 08:58 Quetiapine Fumarate 25 Mg Tablet PO 25 mg Q12HR [facility] Administration Radiology Results: ITS Impressions Abdomen/Pelvis CT 01/17/25 18:07 IMPRESSION: Ascending aortic aneurysm measuring up to 5.6 cm. The descending thoracic aorta is mildly dilated to 3.1 cm. Consider nonemergent but timely outpatient CT angiography of the chest and appropriate referral for monitoring/potential intervention. Mild esophagitis/gastritis. Periesophageal lymphadenopathy. Hepatomegaly with steatosis. Mid small bowel obstruction, transition point in the left lateral abdomen. Small volume ascites. Bladder wall thickening, likely secondary to chronic outlet obstruction from prostatomegaly. Small Bowel X-Ray 01/18/25 15:02 IMPRESSION: 1. Small bowel obstruction. Chest X-Ray 01/23/25 06:19 Impression: Clear lungs. NG tube. Cardiomegaly. Abdomen X-Ray 01/23/25 06:21 Impression: Small bowel obstruction versus postoperative ileus, similar to prior exam. NG tube in place. Labs Labs: Laboratory Results - last 24 hr 01/23/25 01/23/25 01/24/25 17:13 23:28 04:25 WBC 9.6 RBC 4.95 Hgb 13.8 L Hct 45.1 MCV 91.1 MCH 27.9 MCHC 30.6 L RDW 14.3 Plt Count 237 MPV 9.1 Immature Gran % (Auto) 0.5 Neut % (Auto) 79.0 H Lymph % (Auto) 9.4 L [place] % (Auto) 8.4 Eos % (Auto) 2.3 Baso % (Auto) 0.4 Lymph # (Auto) 0.90 [place] # (Auto) 0.8 H Eos # (Auto) 0.2 Baso # (Auto) 0.0 Abs Immat Gran (auto) 0.05 H Absolute Neuts (auto) 7.6 H Absolute Nucleated RBC 0.000 Nucleated RBC % 0.0 Sodium 152 H Potassium 3.7 Chloride 111 H Carbon Dioxide 33 H Anion Gap 8 BUN 33 H Creatinine 1.14 Estim Creat Clear Calc 59 Estimated GFR > 60 Glucose 162 H POC Capillary Glucose 147 H 138 H Calcium 8.2 L Total Bilirubin 0.9 AST 117 H ALT 143 H Alkaline Phosphatase 36 L Total Protein 7.0 Albumin 3.6 01/24/25 11:21 WBC RBC Hgb Hct MCV MCH MCHC RDW Plt Count MPV Immature Gran % (Auto) Neut % (Auto) Lymph % (Auto) [place] % (Auto) Eos % (Auto) Baso % (Auto) Lymph # (Auto) [place] # (Auto) Eos # (Auto) Baso # (Auto) Abs Immat Gran (auto) Absolute Neuts (auto) Absolute Nucleated RBC Nucleated RBC % Sodium Potassium Chloride Carbon Dioxide Anion Gap BUN Creatinine Estim Creat Clear Calc Estimated GFR Glucose POC Capillary Glucose 148 H Calcium Total Bilirubin AST ALT Alkaline Phosphatase Total Protein Albumin
[2025-01-24 12:53] LABS: Magnesium 2.9 mg/dL (1.6-2.3)
[2025-01-24 12:57] LABS: Partial Thromboplastin Time 23.9 Seconds (22.3-36.8)
[2025-01-24 12:59] LABS: Transferrin 235 mg/dL (206-381)
[2025-01-24] MEDS: LIDOCAINE 1% PF INJ 5 ML VIAL INFILTRATE (13:45)
[2025-01-24] MEDS: AMINO ACIDS 5%/D15W/E-LYTES/CA 1,000 ML with MULTIVITAMINS-12 INJ VIAL 1 1.25 ML, MULTI... 40 ML IV CONT (15:14)
[2025-01-24] MEDS: FAT EMULSIONS IV 20% 250 ML 20.83 ML IVPB (15:16)
[2025-01-24 16:13] LABS: Glucose Point of Care 142 mg/dl (65-105)
--- NOTE | 2025-01-24 18:13 | PM.IMPN ---
Progress Note: A&P Assessment and Plan (1) SBO (small bowel obstruction): Code(s): K56.609 - Unspecified intestinal obstruction, unspecified as to partial versus complete obstruction Status: Acute Assessment and Plan: 02/15: Patient was admitted for abdominal pain, small-bowel obstruction on abdominal CT scan -Surgery was consulted, patient was taken for surgery on 01/18/2025 for high-grade small-bowel obstruction secondary to abdominal adhesions, status post exploratory laparotomy with abdominal adhesiolysis. -continue Zosyn per surgery -Patient has developed ileus. Patient has NG tube in place which is on continue suction -management per General surgery -continue reglan, Dulcolax suppository has been ordered per surgery - bowel rest, NG tube decompression, -discussed with general surgeon -01/24 started TPN 01/22: Obstructive series indicated Ileus 02/14: CT scan of the abdomen and pelvis showed mid small-bowel obstruction with transition point in the left lateral abdomen, small volume ascites, hepatomegaly with steatosis, bladder wall thickening likely secondary to chronic outlet obstruction prostatomegaly. Ascending aortic aneurysm measuring 5.6 cm, descending thoracic aorta is mildly dilated to 3.1 cm mild esophagitis/gastritis, periesophageal lymphadenopathy. (2) Hypertension: Qualifiers: Hypertension type: primary hypertension Qualified Code(s): I10 - Essential (primary) hypertension Code(s): I10 - Essential (primary) hypertension Status: Acute Assessment and Plan: Patient currently on nicardipine infusion with improvement since he has abdominal aortic aneurysm. Off Cardizem infusion as patient is in sinus rhythm. Continue p.o. metoprolol and increase dose Continue Norvasc to 10 mg but switched to p.m. dosing Increase lisinopril to 40 Resume doxazosin 4 mg Clonidine transdermal patch considering unreliable p.o. absorption Wean off nicardipine if past IV Lasix (3) Diabetes mellitus with renal manifestation: Code(s): E11.29 - Type 2 diabetes mellitus with other diabetic kidney complication Status: Acute Assessment and Plan: Continue Accu-Cheks and sliding scale insulin Add Lantus (4) BPH (benign prostatic hyperplasia): Code(s): N40.0 - Benign prostatic hyperplasia without lower urinary tract symptoms Status: Acute Assessment and Plan: Mckinney catheter in place, patient had adequate urine output (5) Atrial fibrillation with RVR: Code(s): I48.91 - Unspecified atrial fibrillation Status: Acute Assessment and Plan: Converted to sinus rhythm. Discontinue Cardizem infusion Continue p.o. metoprolol Systemic anticoagulation is on hold and resumption as per General surgery (6) Acute respiratory failure: Code(s): J96.00 - Acute respiratory failure, unspecified whether with hypoxia or hypercapnia Status: Acute Assessment and Plan: Currently on nasal cannula. Likely atelectasis. Continue incentive spirometry. PT OT (7) Delirium: Code(s): R41.0 - Disorientation, unspecified Status: Acute Assessment and Plan: Off Precedex infusion. Improved. Much more alert and oriented. Restraints have been discontinued Sitter at bedside Continue Seroquel (8) Electrolyte abnormality: Code(s): E87.8 - Other disorders of electrolyte and fluid balance, not elsewhere classified Status: Acute Assessment and Plan: Replace low potassium Plan patient was found to have High-grade small-bowel obstruction secondary to abdominal adhesions was seen by surgery service had exploratory laparotomy, abdominal adhesiolysis on 01/18, however patient became confused removed his IV, and was wondering in the hospital, patient was brought back to the room, patient was aggressive, transferred to ICU for sedation with Precedex, patient is now off Precedex, more alert and eating ice, stats does pass some gas, today patient talking stats feels better, his son is present in the room, patient is clinically improving. patient had been NPO for last seven day, surgeon has started patient has o+PICC line on TPN, will continue until patient bowl function return, patient will be seen by surgery service and sausage inspector and further recommendation to follow. DVT prophylaxis: Enoxaparin subcutaneous Stress ulcer prophylaxis: Protonix IV q.12 hours Nutrition: NG tube management as above, npo Code Status: Full code Switched to nasal cannula, incentive spirometry PT OT Subjective Date/time seen: 01/24/25 18:13 Interval history: Patient admitted for treatment of SBO and plan for exploratory laparotomy. Patient still hypertensive will increase IV metoprolol to 5 mg scheduled and schedule his IV hydralazine. Patient refusing NG tube but denies ABD pain, distention slightly improved. Patient reported flatulence but still no BM. H&P-Narrative He presents with a few hours' history of central abdominal pain; it is localized; rated 10 in intensity, aggravated by meals/drinks, alleviated by fasting; associated with bilious but non-bloody emesis, malaise, anorexia, chills and rigors. His last BM was days ago; he denies chest pain, dizziness, LOC, flank pain, dysuria, hematuria or H[place]. patient was found to have High-grade small-bowel obstruction secondary to abdominal adhesions was seen by surgery service had exploratory laparotomy, abdominal adhesiolysis on 01/18, however patient became confused removed his IV, and was wondering in the hospital, patient was brought back to the room, patient was aggressive, transferred to ICU for sedation with Precedex, patient is now off Precedex, more alert and eating ice, stats does pass some gas, today patient talking stats feels better, his son is present in the room, patient is clinically improving. patient had been NPO for last seven day, surgeon has started patient has o+PICC line on TPN, will continue until patient bowl function return, patient will be seen by surgery service and sausage inspector and further recommendation to follow. Review of Systems Review of Systems: ROS unobtainable: Yes unobtainable due to mental status Exam Narrative: Patient is comfortable, NAD HEENT: NG tube in place LUNGS:CTA ABD: distended Lower extremities: no edema SKIN: nonjaundiced Neuro: Sedated Objective Data Vital Signs Vital Signs: Vital Signs - 24 hr 01/23/25 18:15 01/23/25 19:04 01/23/25 19:50 Temperature Pulse Rate 86 87 90 Respiratory Rate Blood Pressure 168/77 H 166/77 H 161/85 H Pulse Oximetry Oxygen Delivery Oxygen Flow Rate 01/23/25 19:50 01/23/25 20:00 01/23/25 20:00 Temperature 36.7 C Pulse Rate 90 81 Respiratory Rate 24 H Blood Pressure 161/85 H 161/88 H Pulse Oximetry 95 95 Oxygen Delivery Nasal Cannula Oxygen Flow Rate 3 01/23/25 20:00 01/23/25 20:37 01/23/25 22:00 Temperature Pulse Rate 82 86 72 Respiratory Rate Blood Pressure 139/81 Pulse Oximetry Oxygen Delivery Oxygen Flow Rate 01/23/25 22:00 01/23/25 22:00 01/23/25 22:28 Temperature Pulse Rate 72 68 68 Respiratory Rate 21 H Blood Pressure 139/81 139/81 Pulse Oximetry 95 Oxygen Delivery Oxygen Flow Rate 01/23/25 23:30 01/24/25 00:00 01/24/25 00:00 Temperature 36.6 C Pulse Rate 80 76 76 Respiratory Rate 23 H Blood Pressure 166/82 H 175/96 H 175/96 H Pulse Oximetry 98 Oxygen Delivery Oxygen Flow Rate 01/24/25 00:00 01/24/25 00:00 01/24/25 00:45 Temperature Pulse Rate 76 80 Respiratory Rate Blood Pressure 168/91 H Pulse Oximetry 98 Oxygen Delivery Nasal Cannula Oxygen Flow Rate 3 01/24/25 00:45 01/24/25 02:00 01/24/25 02:00 Temperature Pulse Rate 80 79 80 Respiratory Rate 20 Blood Pressure 168/91 H 169/96 H 169/96 H Pulse Oximetry 97 Oxygen Delivery Oxygen Flow Rate 01/24/25 02:00 01/24/25 02:45 01/24/25 02:45 Temperature Pulse Rate 80 77 77 Respiratory Rate Blood Pressure 157/76 H 157/76 H Pulse Oximetry Oxygen Delivery Oxygen Flow Rate 01/24/25 03:45 01/24/25 04:00 01/24/25 04:00 Temperature 36.7 C Pulse Rate 64 62 Respiratory Rate 22 H Blood Pressure 124/61 142/60 H Pulse Oximetry 92 92 Oxygen Delivery Nasal Cannula Oxygen Flow Rate 3 01/24/25 04:00 01/24/25 04:00 01/24/25 05:15 Temperature Pulse Rate 62 61 76 Respiratory Rate Blood Pressure 142/60 H 165/86 H Pulse Oximetry Oxygen Delivery Oxygen Flow Rate 01/24/25 06:00 01/24/25 06:00 01/24/25 06:00 Temperature Pulse Rate 83 83 83 Respiratory Rate 19 Blood Pressure 160/77 H 164/90 H Pulse Oximetry 96 Oxygen Delivery Oxygen Flow Rate 01/24/25 06:30 01/24/25 06:30 01/24/25 08:00 Temperature 37.1 C Pulse Rate 82 82 66 Respiratory Rate 14 Blood Pressure 169/84 H 169/84 H 151/81 H Pulse Oximetry 97 Oxygen Delivery Oxygen Flow Rate 01/24/25 08:00 01/24/25 08:00 01/24/25 08:06 Temperature Pulse Rate 74 71 Respiratory Rate Blood Pressure 156/84 H Pulse Oximetry 97 Oxygen Delivery Nasal Cannula Oxygen Flow Rate 3 01/24/25 08:24 01/24/25 08:25 01/24/25 09:09 Temperature 36.4 C Pulse Rate 71 73 Respiratory Rate Blood Pressure 156/84 H Pulse Oximetry Oxygen Delivery Oxygen Flow Rate 01/24/25 09:48 01/24/25 10:00 01/24/25 10:00 Temperature Pulse Rate 60 59 L 58 L Respiratory Rate 19 Blood Pressure 120/75 128/76 Pulse Oximetry 95 Oxygen Delivery Oxygen Flow Rate 01/24/25 10:03 01/24/25 10:05 01/24/25 10:10 Temperature Pulse Rate 56 L 57 L 59 L Respiratory Rate Blood Pressure 128/76 128/76 129/71 Pulse Oximetry Oxygen Delivery Oxygen Flow Rate 01/24/25 10:19 01/24/25 10:30 01/24/25 10:45 Temperature Pulse Rate 59 L 66 64 Respiratory Rate Blood Pressure 130/76 131/82 136/85 Pulse Oximetry Oxygen Delivery Oxygen Flow Rate 01/24/25 11:30 01/24/25 12:00 01/24/25 12:00 Temperature Pulse Rate 69 77 71 Respiratory Rate 21 H Blood Pressure 151/89 H 155/84 H Pulse Oximetry 97 Oxygen Delivery Oxygen Flow Rate 01/24/25 12:00 01/24/25 12:30 01/24/25 14:00 Temperature 37.2 C Pulse Rate 67 Respiratory Rate Blood Pressure Pulse Oximetry 96 Oxygen Delivery Nasal Cannula Oxygen Flow Rate 3 01/24/25 14:00 01/24/25 14:00 01/24/25 16:00 Temperature Pulse Rate 73 73 77 Respiratory Rate 23 H 18 Blood Pressure 150/81 H 150/81 H 158/89 H Pulse Oximetry 96 98 Oxygen Delivery Oxygen Flow Rate 01/24/25 16:00 01/24/25 16:00 01/24/25 16:00 Temperature Pulse Rate 70 77 Respiratory Rate Blood Pressure 158/89 H Pulse Oximetry 98 Oxygen Delivery Nasal Cannula Oxygen Flow Rate 3 01/24/25 17:12 01/24/25 17:25 01/24/25 18:00 Temperature 36.6 C Pulse Rate 75 Respiratory Rate 22 H Blood Pressure 168/91 H Pulse Oximetry 98 96 Oxygen Delivery Nasal Cannula Oxygen Flow Rate 2 Intake/Output Intake/Output: Intake & Output 01/21/25 01/22/25 01/23/25 01/24/25 23:59 23:59 23:59 23:59 Intake Total 1518.0 1899.6 1320.6 1153.3 Output Total 1900 1650 2100 3350 Balance -382.0 249.6 -779.4 -2196.7 Meds/Results Medications: Active Medications Generic Name Dose Route Start Last Admin Trade Name Freq PRN Reason Stop Dose Admin Acetaminophen 650 mg 01/21/25 10:59 Acetaminophen Elixir 325 Mg/10.15 Ml Udc PO Q6H PRN Mild Pain (1-3) or Fever Al Hydrox/Mg Hydrox/Simethicone 30 ml 01/18/25 19:20 01/24/25 13:57 Mag Hydrox/Al Hydrox/Simeth 30 Ml Udc PO 30 ml Q8HR AUGUSTINE Administration Amlodipine Besylate 10 mg 01/24/25 09:00 01/24/25 08:25 Amlodipine Besylate 10 Mg Tablet FEED TUBE 10 mg DAILY AUGUSTINE Administration Bisacodyl 10 mg 01/20/25 09:00 01/24/25 11:00 Bisacodyl 10 Mg Suppository RECTAL 10 mg QAM AUGUSTINE Administration Dextrose 12.5 gm 01/18/25 15:51 Dextrose 50% 25 Gm/50 Ml Syringe IV PUSH PRN PRN Hypoglycemia Protocol Enoxaparin Sodium 40 mg 01/19/25 11:45 01/24/25 08:25 Enoxaparin 40 Mg/0.4 Ml Syringe SUB-Q 40 mg DAILY AUGUSTINE Administration Glucagon 1 mg 01/18/25 15:51 Glucagon For Inj 1 Mg Vial IM PRN PRN Hypoglycemia Protocol Glucose 15 gm 01/18/25 15:51 Glucose Oral Gel 15 Gm Of Glucse In 37.5 Gm Tube PO PRN PRN Hypoglycemia Protocol Hydralazine HCl 20 mg 01/22/25 10:25 01/24/25 02:21 Hydralazine Hcl 20 Mg/Ml Vial IV PUSH 20 mg Q4H PRN Administration Blood Pressure - High Piperacillin/Tazobactam/Dextrose 3.375 gm in 50 mls @ 100 mls/hr 01/17/25 02:00 01/24/25 14:27 Zosyn 3.375 Gm/Ns 50 Ml IVPB 01/26/25 14:29 Infused Q6H AUGUSTINE Infusion Dextrose 1,000 mls @ 100 mls/hr 01/18/25 15:51 Dextrose 5% 1,000 Ml IVPB PRN PRN Hypoglycemia Protocol Nicardipine/Sodium Chloride 20 mg in 200 mls @ 25 mls/hr 01/22/25 10:25 01/24/25 16:00 Cardene 20 Mg/200 Ml Ns IV CONT 0 mg/hr .Q8H AUGUSTINE 0 mls/hr Titration Protocol 2.5 MG/HR Dextrose 1,000 mls @ 50 mls/hr 01/24/25 11:38 Dextrose 10% IV CONT .Q20H PRN if PN is interrupted Multivitamins 1.25 ml/ 1,002.5 mls @ 40 mls/hr 01/24/25 14:00 01/24/25 15:14 Multivitamins 1.25 ml/ Amino IV CONT 40 mls/hr Acids/Electrolytes/Dextrose .Q24H AUGUSTINE Administration Protocol Fat Emulsion Intravenous 250 mls @ 20.833 mls/hr 01/24/25 14:00 01/24/25 15:16 Lipids 20% IVPB 20.83 mls/hr Q24H AUGUSTINE Administration Insulin Aspart 3 - 6 units 01/24/25 11:50 01/24/25 16:36 Insulin Aspart (*Bkc) 100 Units/Ml SUB-Q Not Given Q4H AUGUSTINE Protocol Levothyroxine Sodium 25 mcg 01/24/25 06:30 01/24/25 05:50 Levothyroxine Sodium 25 Mcg Tablet PO 25 mcg DAILY@0630 AUGUSTINE Administration Lidocaine 1 patch 01/19/25 13:35 01/24/25 08:59 Lidocaine 5% Patch TRANSDERM 1 patch DAILY AUGUSTINE Administration Lisinopril 20 mg 01/24/25 09:00 01/24/25 08:25 Lisinopril 20 Mg Tablet PO 20 mg QAM AUGUSTINE Administration Melatonin 3 mg 01/19/25 22:39 01/19/25 23:16 Melatonin 3 Mg Tablet PO 3 mg HS PRN Administration Insomnia Metoclopramide HCl 10 mg 01/19/25 00:00 01/24/25 13:57 Metoclopramide Hcl Inj 10 Mg/2 Ml Vial IV PUSH 10 mg Q6HR AUGUSTINE Administration Metoprolol Tartrate 25 mg 01/23/25 09:00 01/24/25 08:25 Metoprolol Tartrate 25 Mg Tablet FEED TUBE 25 mg Q12HR AUGUSTINE Administration Ondansetron HCl 4 mg 01/17/25 19:07 01/17/25 22:44 Ondansetron Inj 4 Mg/2 Ml Vial IV PUSH 4 mg Q4H PRN Administration Nausea Pantoprazole Sodium 40 mg 01/17/25 22:30 01/24/25 08:25 Pantoprazole Sodium Iv 40 Mg Vial IV PUSH 40 mg Q12HR AUGUSTINE Administration Quetiapine Fumarate 25 mg 01/21/25 21:00 01/24/25 08:58 Quetiapine Fumarate 25 Mg Tablet PO 25 mg Q12HR AUGUSTINE Administration Sodium Chloride 20 ml 01/24/25 14:41 Central Line Flush IV PUSH PRN PRN after blood draws Sodium Chloride 10 ml 01/24/25 14:41 Central Line Flush IV PUSH PRN PRN with TPN bag changes Sodium Chloride 10 ml 01/24/25 22:00 Central Line Flush IV PUSH Q8HR [facility] Radiology Results: ITS Impressions Abdomen/Pelvis CT 01/17/25 18:07 IMPRESSION: Ascending aortic aneurysm measuring up to 5.6 cm. The descending thoracic aorta is mildly dilated to 3.1 cm. Consider nonemergent but timely outpatient CT angiography of the chest and appropriate referral for monitoring/potential intervention. Mild esophagitis/gastritis. Periesophageal lymphadenopathy. Hepatomegaly with steatosis. Mid small bowel obstruction, transition point in the left lateral abdomen. Small volume ascites. Bladder wall thickening, likely secondary to chronic outlet obstruction from prostatomegaly. Small Bowel X-Ray 01/18/25 15:02 IMPRESSION: 1. Small bowel obstruction. Abdomen X-Ray 01/23/25 06:21 Impression: Small bowel obstruction versus postoperative ileus, similar to prior exam. NG tube in place. Chest X-Ray 01/24/25 14:53 IMPRESSION: Right PICC line with the tip overlying the right atrium. Cardiomegaly. Minimal opacification in the left lung base. Labs Labs: Laboratory Results - last 24 hr 01/23/25 01/24/25 01/24/25 23:28 04:25 11:21 WBC 9.6 RBC 4.95 Hgb 13.8 L Hct 45.1 MCV 91.1 MCH 27.9 MCHC 30.6 L RDW 14.3 Plt Count 237 MPV 9.1 Immature Gran % (Auto) 0.5 Neut % (Auto) 79.0 H Lymph % (Auto) 9.4 L Mccracken % (Auto) 8.4 Eos % (Auto) 2.3 Baso % (Auto) 0.4 Lymph # (Auto) 0.90 Mccracken # (Auto) 0.8 H Eos # (Auto) 0.2 Baso # (Auto) 0.0 Abs Immat Gran (auto) 0.05 H Absolute Neuts (auto) 7.6 H Absolute Nucleated RBC 0.000 Nucleated RBC % 0.0 APTT Sodium 152 H Potassium 3.7 Chloride 111 H Carbon Dioxide 33 H Anion Gap 8 BUN 33 H Creatinine 1.14 Estim Creat Clear Calc 59 Estimated GFR > 60 Glucose 162 H POC Capillary Glucose 138 H 148 H Calcium 8.2 L Magnesium Transferrin Total Bilirubin 0.9 AST 117 H ALT 143 H Alkaline Phosphatase 36 L Total Protein 7.0 Albumin 3.6 01/24/25 01/24/25 12:28 16:11 WBC RBC Hgb Hct MCV MCH MCHC RDW Plt Count MPV Immature Gran % (Auto) Neut % (Auto) Lymph % (Auto) Mccracken % (Auto) Eos % (Auto) Baso % (Auto) Lymph # (Auto) Mccracken # (Auto) Eos # (Auto) Baso # (Auto) Abs Immat Gran (auto) Absolute Neuts (auto) Absolute Nucleated RBC Nucleated RBC % APTT 23.9 Sodium Potassium Chloride Carbon Dioxide Anion Gap BUN Creatinine Estim Creat Clear Calc Estimated GFR Glucose POC Capillary Glucose 142 H Calcium Magnesium 2.9 H Transferrin 235 Total Bilirubin AST ALT Alkaline Phosphatase Total Protein Albumin
[2025-01-24] MEDS: CENTRAL LINE FLUSH 10 ML IV PUSH (20:30)
[2025-01-24 20:45] LABS: Glucose Point of Care 174 mg/dl (65-105)
[2025-01-25] VITALS (31 sets, daily range): BP systolic 115–197; BP diastolic 67–97; PULSE 50–79; RESP 14–23; TEMP 36.4–37.1; O2SAT 91–97
[2025-01-25 00:50] LABS: Glucose Point of Care 169 mg/dl (65-105)
[2025-01-25] MEDS: PIPERACILLN/TAZ 3.375GM/NS50ML 3.375 GM/50 ML BAG IVPB ×4 (02:44→20:39)
[2025-01-25] MEDS: hydrALAZINE HCL 20 MG/ML VIAL IV PUSH (03:27)
[2025-01-25] MEDS: CENTRAL LINE FLUSH 10 ML IV PUSH ×3 (04:19→20:40)
[2025-01-25] MEDS: MAG HYDROX/AL HYDROX/SIMETH 30 ML UDC PO ×3 (05:50→20:40)
[2025-01-25] MEDS: METOCLOPRAMIDE HCL INJ 10 MG/2 ML VIAL IV PUSH ×4 (05:50→23:48)
[2025-01-25] MEDS: LEVOTHYROXINE SODIUM 25 MCG TABLET PO (05:50)
[2025-01-25 06:13] LABS: Basophils Absolute Auto 0.1 K/mm3 (0.0-0.1); Basophils Percent Auto 0.5 % (0.2-1.2); Eosinophils Absolute Auto 0.4 K/mm3 (0-0.3); Eosinophils Percent Auto 3.2 % (0-4.4); Hematocrit 47.4 % (42.0-52.0); Hemoglobin 14.2 g/dL (14.0-18.0); Immature Granulocyte Absolute 0.07 K/mm3 (0.00-0.031); Immature Granulocyte Percent A 0.6 % (0-0.5); Lymphocytes Absolute Auto 1.17 K/mm3 (0.9-3.2); Lymphocytes Percent Auto 10.5 % (18.3-44.2); Mean Corpuscular Hemoglobin 27.4 pg (26-34); Mean Corpuscular Volume 91.5 fl (80-100); Mean Platelet Volume 9.3 fl (7.4-10.4); Monocytes Percent Auto 8.8 % (2.6-8.5); Neutrophils Absolute Auto 8.5 K/mm3 (1.3-6.7); Neutrophils Percent Auto 76.4 % (45.5-73.1); Platelet Count Result 252 k/mm3 (150-375); Red Blood Count 5.18 M/mm3 (4.6-6.20); White Blood Count 11.1 K/mm3 (4.5-10.0)
[2025-01-25 06:27] LABS: Alanine Aminotransferase 186 U/L (6-50); Albumin Level 3.5 g/dL (3.5-5.1); Alkaline Phosphatase 41 U/L (38-126); Anion Gap 8 mmol/L (4-12); Aspartate Amino Transferase 132 U/L (17-59); Bilirubin,Total 0.8 mg/dL (0.2-1.3); Blood Urea Nitrogen 36 mg/dL (9-20); Calcium 8.5 mg/dL (8.4-10.2); Carbon Dioxide 33 mmol/L (22-30); Chloride 111 mmol/L (98-107); Estimated CRCL calculation 57 ml/min; Estimated Glomerular Filt Rate 59; Glucose 187 mg/dL (65-110); Magnesium 2.8 mg/dL (1.6-2.3); Phosphorus 2.7 mg/dL (2.5-4.5); Potassium 3.5 mmol/L (3.4-5.0); Sodium 152 mmol/L (137-145)
[2025-01-25] MEDS: niCARdipine 20 MG/200 ML 20 MG/200 ML BAG 100 MG IV CONT ×2 (06:36→08:34)
[2025-01-25 08:06] LABS: Glucose Point of Care 199 mg/dl (65-105)
[2025-01-25] MEDS: QUEtiapine FUMARATE 25 MG TABLET PO ×2 (09:21→20:40)
[2025-01-25] MEDS: ENOXAPARIN 40 MG/0.4 ML SYRINGE SUB-Q (09:21)
[2025-01-25] MEDS: PANTOPRAZOLE SODIUM IV 40 MG VIAL IV PUSH ×2 (09:21→20:40)
[2025-01-25] MEDS: METOPROLOL TARTRATE 25 MG TABLET FEED TUBE ×2 (09:21→20:37)
--- NOTE | 2025-01-25 09:22 | WPDINTPN ---
Progress Note: A&P Assessment and Plan (1) SBO (small bowel obstruction): Code(s): K56.609 - Unspecified intestinal obstruction, unspecified as to partial versus complete obstruction Status: Acute Assessment and Plan: 02/15: Patient was admitted for abdominal pain, small-bowel obstruction on abdominal CT scan -Surgery was consulted, patient was taken for surgery on 01/18/2025 for high-grade small-bowel obstruction secondary to abdominal adhesions, status post exploratory laparotomy with abdominal adhesiolysis. -continue Zosyn per surgery -Patient has developed ileus. Patient has NG tube in place which is on continue suction -management per General surgery -continue reglan, Dulcolax suppository has been ordered per surgery - bowel rest, NG tube decompression, -discussed with general surgeon -01/24 started TPN 01/22: Obstructive series indicated Ileus 02/14: CT scan of the abdomen and pelvis showed mid small-bowel obstruction with transition point in the left lateral abdomen, small volume ascites, hepatomegaly with steatosis, bladder wall thickening likely secondary to chronic outlet obstruction prostatomegaly. Ascending aortic aneurysm measuring 5.6 cm, descending thoracic aorta is mildly dilated to 3.1 cm mild esophagitis/gastritis, periesophageal lymphadenopathy. (2) Hypertension: Qualifiers: Hypertension type: primary hypertension Qualified Code(s): I10 - Essential (primary) hypertension Code(s): I10 - Essential (primary) hypertension Status: Acute Assessment and Plan: Patient currently on nicardipine infusion with improvement since he has abdominal aortic aneurysm. Off Cardizem infusion as patient is in sinus rhythm. Continue p.o. metoprolol and increase dose Continue Norvasc to 10 mg but switched to p.m. dosing Increase lisinopril to 40 Resume doxazosin 4 mg Clonidine transdermal patch considering unreliable p.o. absorption Wean off nicardipine if past IV Lasix (3) Diabetes mellitus with renal manifestation: Code(s): E11.29 - Type 2 diabetes mellitus with other diabetic kidney complication Status: Acute Assessment and Plan: Continue Accu-Cheks and sliding scale insulin Add Lantus (4) BPH (benign prostatic hyperplasia): Code(s): N40.0 - Benign prostatic hyperplasia without lower urinary tract symptoms Status: Acute Assessment and Plan: Mckinney catheter in place, patient had adequate urine output (5) Atrial fibrillation with RVR: Code(s): I48.91 - Unspecified atrial fibrillation Status: Acute Assessment and Plan: Converted to sinus rhythm. Discontinue Cardizem infusion Continue p.o. metoprolol Systemic anticoagulation is on hold and resumption as per General surgery (6) Acute respiratory failure: Code(s): J96.00 - Acute respiratory failure, unspecified whether with hypoxia or hypercapnia Status: Acute Assessment and Plan: Currently on nasal cannula. Likely atelectasis. Continue incentive spirometry. PT OT (7) Delirium: Code(s): R41.0 - Disorientation, unspecified Status: Acute Assessment and Plan: Off Precedex infusion. Improved. Much more alert and oriented. Restraints have been discontinued Sitter at bedside Continue Seroquel (8) Electrolyte abnormality: Code(s): E87.8 - Other disorders of electrolyte and fluid balance, not elsewhere classified Status: Acute Assessment and Plan: Replace low potassium Plan DVT prophylaxis: Enoxaparin subcutaneous Stress ulcer prophylaxis: Protonix IV q.12 hours Nutrition: NG tube management as above, npo Code Status: Full code Switched to nasal cannula, incentive spirometry PT OT Subjective Date/time seen: 01/25/25 Patient was started on TPN yesterday. Patient states that he is still belching and passing gas but does not have any bowel movement. He denies any abdominal pain shortness a breath nausea vomiting chest pain she fever. All other systems were reviewed and were negative Overnight his blood pressure is elevated patient was restarted on nicardipine infusion He is sitting in chair this morning Good urine output Afebrile Review of Systems Review of Systems: All systems reviewed & are unremarkable except as noted in HPI and below (HPI) Exam Narrative: General: Obese gentleman, currently no acute distress HEENT:? Pupils equal reactive, sclera is clear, on high-flow therapy Neck:? Supple, thick neck Respiratory:? Coarse breath sounds bilaterally, decreased at bases, adequate air entry, no wheezing Cardiac: Irregularly irregular, rate controlled Abdomen:? Soft, nontender, obese, protuberant, hypoactive but present bowel sounds, midline incision with dressing in place Extremities:? Palpable pedal pulses, bilateral lower extremity edema Neuro:? Patient is more awake this morning, alert and oriented x3, able to answer questions and follow simple commands Skin:? Abdominal Dressing in place Psych:? Unable to assess at this time Objective Data Vital Signs Vital Signs: Vital Signs - 24 hr 01/24/25 09:48 01/24/25 10:00 01/24/25 10:00 Temperature Pulse Rate 60 59 L 58 L Respiratory Rate 19 Blood Pressure 120/75 128/76 Pulse Oximetry 95 Oxygen Delivery Oxygen Flow Rate 01/24/25 10:03 01/24/25 10:05 01/24/25 10:10 Temperature Pulse Rate 56 L 57 L 59 L Respiratory Rate Blood Pressure 128/76 128/76 129/71 Pulse Oximetry Oxygen Delivery Oxygen Flow Rate 01/24/25 10:19 01/24/25 10:30 01/24/25 10:45 Temperature Pulse Rate 59 L 66 64 Respiratory Rate Blood Pressure 130/76 131/82 136/85 Pulse Oximetry Oxygen Delivery Oxygen Flow Rate 01/24/25 11:30 01/24/25 12:00 01/24/25 12:00 Temperature Pulse Rate 69 77 71 Respiratory Rate 21 H Blood Pressure 151/89 H 155/84 H Pulse Oximetry 97 Oxygen Delivery Oxygen Flow Rate 01/24/25 12:00 01/24/25 12:30 01/24/25 14:00 Temperature 37.2 C Pulse Rate 67 Respiratory Rate Blood Pressure Pulse Oximetry 96 Oxygen Delivery Nasal Cannula Oxygen Flow Rate 3 01/24/25 14:00 01/24/25 14:00 01/24/25 16:00 Temperature Pulse Rate 73 73 77 Respiratory Rate 23 H 18 Blood Pressure 150/81 H 150/81 H 158/89 H Pulse Oximetry 96 98 Oxygen Delivery Oxygen Flow Rate 01/24/25 16:00 01/24/25 16:00 01/24/25 16:00 Temperature Pulse Rate 70 77 Respiratory Rate Blood Pressure 158/89 H Pulse Oximetry 98 Oxygen Delivery Nasal Cannula Oxygen Flow Rate 3 01/24/25 17:12 01/24/25 17:25 01/24/25 18:00 Temperature 36.6 C Pulse Rate 77 Respiratory Rate Blood Pressure Pulse Oximetry 98 Oxygen Delivery Nasal Cannula Oxygen Flow Rate 2 01/24/25 18:00 01/24/25 20:00 01/24/25 20:00 Temperature 36.5 C Pulse Rate 75 64 Respiratory Rate 22 H 21 H Blood Pressure 168/91 H 174/83 H Pulse Oximetry 96 94 94 Oxygen Delivery Nasal Cannula Oxygen Flow Rate 2 01/24/25 20:00 01/24/25 20:29 01/24/25 22:00 Temperature Pulse Rate 77 69 66 Respiratory Rate 20 Blood Pressure 156/81 H Pulse Oximetry 95 Oxygen Delivery Oxygen Flow Rate 01/25/25 00:00 01/25/25 00:00 01/25/25 00:00 Temperature 36.4 C L Pulse Rate 65 65 Respiratory Rate 21 H Blood Pressure 156/84 H Pulse Oximetry 95 93 Oxygen Delivery Nasal Cannula Oxygen Flow Rate 2 01/25/25 00:52 01/25/25 02:00 01/25/25 02:00 Temperature Pulse Rate 64 63 67 Respiratory Rate 21 H Blood Pressure 197/94 H Pulse Oximetry 93 Oxygen Delivery Oxygen Flow Rate 01/25/25 03:35 01/25/25 03:40 01/25/25 04:00 Temperature Pulse Rate 69 62 Respiratory Rate 21 H Blood Pressure 191/97 H Pulse Oximetry 95 94 Oxygen Delivery Nasal Cannula Oxygen Flow Rate 2 01/25/25 04:18 01/25/25 05:00 01/25/25 05:30 Temperature Pulse Rate 69 73 72 Respiratory Rate Blood Pressure 191/97 H 181/91 H 170/80 H Pulse Oximetry Oxygen Delivery Oxygen Flow Rate 01/25/25 06:00 01/25/25 06:00 01/25/25 06:36 Temperature 36.6 C Pulse Rate 69 75 77 Respiratory Rate 21 H Blood Pressure 159/89 H 159/89 H Pulse Oximetry 94 Oxygen Delivery Oxygen Flow Rate 01/25/25 06:36 01/25/25 08:00 01/25/25 08:34 Temperature 37.1 C Pulse Rate 73 79 67 Respiratory Rate 21 H Blood Pressure 183/75 H 159/80 H 180/87 H Pulse Oximetry 94 Oxygen Delivery Oxygen Flow Rate 01/25/25 08:34 Temperature Pulse Rate 67 Respiratory Rate Blood Pressure 180/87 H Pulse Oximetry Oxygen Delivery Oxygen Flow Rate Intake/Output Intake/Output: Intake & Output 01/22/25 01/23/25 01/24/25 01/25/25 23:59 23:59 23:59 23:59 Intake Total 1899.6 1320.6 1203.3 678.4 Output Total 1650 2100 3350 1200 Balance 249.6 -779.4 -2146.7 -521.6 Meds/Results Medications: Active Medications Generic Name Dose Route Start Last Admin Trade Name Freq PRN Reason Stop Dose Admin Acetaminophen 650 mg 01/21/25 10:59 Acetaminophen Elixir 325 Mg/10.15 Ml Udc PO Q6H PRN Mild Pain (1-3) or Fever Al Hydrox/Mg Hydrox/Simethicone 30 ml 01/18/25 19:20 01/25/25 05:50 Mag Hydrox/Al Hydrox/Simeth 30 Ml Udc PO 30 ml Q8HR [facility] Administration Amlodipine Besylate 10 mg 01/24/25 09:00 01/24/25 08:25 Amlodipine Besylate 10 Mg Tablet FEED TUBE 01/26/25 09:00 10 mg DAILY [facility] Administration Amlodipine Besylate 10 mg 01/26/25 18:00 Amlodipine Besylate 10 Mg Tablet FEED TUBE QPM [facility] Bisacodyl 10 mg 01/20/25 09:00 01/24/25 11:00 Bisacodyl 10 Mg Suppository RECTAL 10 mg QAM [facility] Administration Clonidine HCl 1 patch 02/01/25 09:00 Clonidine 0.1 Mg/24 Hr Patch TRANSDERM WEEKLY [facility] Dextrose 12.5 gm 01/18/25 15:51 Dextrose 50% 25 Gm/50 Ml Syringe IV PUSH PRN PRN Hypoglycemia Protocol Doxazosin Mesylate 4 mg 01/26/25 09:00 Doxazosin Mesylate 4 Mg Tablet PO DAILY [facility] Enoxaparin Sodium 40 mg 01/19/25 11:45 01/24/25 08:25 Enoxaparin 40 Mg/0.4 Ml Syringe SUB-Q 40 mg DAILY [facility] Administration Furosemide 40 mg 01/25/25 17:00 Furosemide Inj 40 Mg/4 Ml Vial IV PUSH 01/26/25 09:01 BID [facility] Glucagon 1 mg 01/18/25 15:51 Glucagon For Inj 1 Mg Vial IM PRN PRN Hypoglycemia Protocol Glucose 15 gm 01/18/25 15:51 Glucose Oral Gel 15 Gm Of Glucse In 37.5 Gm Tube PO PRN PRN Hypoglycemia Protocol Hydralazine HCl 20 mg 01/22/25 10:25 01/25/25 03:27 Hydralazine Hcl 20 Mg/Ml Vial IV PUSH 20 mg Q4H PRN Administration Blood Pressure - High Piperacillin/Tazobactam/Dextrose 3.375 gm in 50 mls @ 100 mls/hr 01/17/25 02:00 01/25/25 03:23 Zosyn 3.375 Gm/Ns 50 Ml IVPB 01/26/25 14:29 Infused Q6H [facility] Infusion Dextrose 1,000 mls @ 100 mls/hr 01/18/25 15:51 Dextrose 5% 1,000 Ml IVPB PRN PRN Hypoglycemia Protocol Nicardipine/Sodium Chloride 20 mg in 200 mls @ 100 mls/hr 01/22/25 10:25 01/25/25 08:34 Cardene 20 Mg/200 Ml Ns IV CONT 10 mg/hr .Q2H [facility] 100 mls/hr Administration Protocol 10 MG/HR Dextrose 1,000 mls @ 50 mls/hr 01/24/25 11:38 Dextrose 10% IV CONT .Q20H PRN if PN is interrupted Multivitamins 1.25 ml/ 1,002.5 mls @ 40 mls/hr 01/24/25 14:00 01/24/25 15:14 Multivitamins 1.25 ml/ Amino IV CONT 40 mls/hr Acids/Electrolytes/Dextrose .Q24H [facility] Administration Protocol Fat Emulsion Intravenous 250 mls @ 20.833 mls/hr 01/24/25 14:00 01/25/25 03:23 Lipids 20% IVPB Infused Q24H [facility] Infusion Insulin Aspart 3 - 6 units 01/24/25 11:50 01/25/25 06:35 Insulin Aspart (*Bkc) 100 Units/Ml SUB-Q Not Given Q4H [facility] Protocol Levothyroxine Sodium 25 mcg 01/24/25 06:30 01/25/25 05:50 Levothyroxine Sodium 25 Mcg Tablet PO 25 mcg DAILY@0630 [facility] Administration Lidocaine 1 patch 01/19/25 13:35 01/24/25 08:59 Lidocaine 5% Patch TRANSDERM 1 patch DAILY [facility] Administration Lisinopril 40 mg 01/26/25 09:00 Lisinopril 20 Mg Tablet PO QAM [facility] Melatonin 3 mg 01/19/25 22:39 01/19/25 23:16 Melatonin 3 Mg Tablet PO 3 mg HS PRN Administration Insomnia Metoclopramide HCl 10 mg 01/19/25 00:00 01/25/25 05:50 Metoclopramide Hcl Inj 10 Mg/2 Ml Vial IV PUSH 10 mg Q6HR [facility] Administration Metoprolol Tartrate 25 mg 01/23/25 09:00 01/24/25 20:29 Metoprolol Tartrate 25 Mg Tablet FEED TUBE 25 mg Q12HR [facility] Administration Ondansetron HCl 4 mg 01/17/25 19:07 01/17/25 22:44 Ondansetron Inj 4 Mg/2 Ml Vial IV PUSH 4 mg Q4H PRN Administration Nausea Pantoprazole Sodium 40 mg 01/17/25 22:30 01/24/25 20:29 Pantoprazole Sodium Iv 40 Mg Vial IV PUSH 40 mg Q12HR [facility] Administration Quetiapine Fumarate 25 mg 01/21/25 21:00 01/24/25 20:29 Quetiapine Fumarate 25 Mg Tablet PO 25 mg Q12HR [facility] Administration Sodium Chloride 20 ml 01/24/25 14:41 Central Line Flush IV PUSH PRN PRN after blood draws Sodium Chloride 10 ml 01/24/25 14:41 Central Line Flush IV PUSH PRN PRN with TPN bag changes Sodium Chloride 10 ml 01/24/25 22:00 01/25/25 04:19 Central Line Flush IV PUSH 10 ml Q8HR [facility] Administration Radiology Results: ITS Impressions Abdomen/Pelvis CT 01/17/25 18:07 IMPRESSION: Ascending aortic aneurysm measuring up to 5.6 cm. The descending thoracic aorta is mildly dilated to 3.1 cm. Consider nonemergent but timely outpatient CT angiography of the chest and appropriate referral for monitoring/potential intervention. Mild esophagitis/gastritis. Periesophageal lymphadenopathy. Hepatomegaly with steatosis. Mid small bowel obstruction, transition point in the left lateral abdomen. Small volume ascites. Bladder wall thickening, likely secondary to chronic outlet obstruction from prostatomegaly. Small Bowel X-Ray 01/18/25 15:02 IMPRESSION: 1. Small bowel obstruction. Abdomen X-Ray 01/23/25 06:21 Impression: Small bowel obstruction versus postoperative ileus, similar to prior exam. NG tube in place. Chest X-Ray 01/24/25 14:53 IMPRESSION: Right PICC line with the tip overlying the right atrium. Cardiomegaly. Minimal opacification in the left lung base. Labs Labs: Laboratory Results - last 24 hr 01/24/25 01/24/25 01/24/25 11:21 12:28 16:11 WBC RBC Hgb Hct MCV MCH MCHC RDW Plt Count MPV Immature Gran % (Auto) Neut % (Auto) Lymph % (Auto) [place] % (Auto) Eos % (Auto) Baso % (Auto) Lymph # (Auto) [place] # (Auto) Eos # (Auto) Baso # (Auto) Abs Immat Gran (auto) Absolute Neuts (auto) Absolute Nucleated RBC Nucleated RBC % APTT 23.9 Sodium Potassium Chloride Carbon Dioxide Anion Gap BUN Creatinine Estim Creat Clear Calc Estimated GFR Glucose POC Capillary Glucose 148 H 142 H Calcium Phosphorus Magnesium 2.9 H Transferrin 235 Total Bilirubin AST ALT Alkaline Phosphatase Total Protein Albumin 01/24/25 01/25/25 01/25/25 20:26 00:47 06:05 WBC 11.1 H RBC 5.18 Hgb 14.2 Hct 47.4 MCV 91.5 MCH 27.4 MCHC 30.0 L RDW 14.0 Plt Count 252 MPV 9.3 Immature Gran % (Auto) 0.6 H Neut % (Auto) 76.4 H Lymph % (Auto) 10.5 L [place] % (Auto) 8.8 H Eos % (Auto) 3.2 Baso % (Auto) 0.5 Lymph # (Auto) 1.17 [place] # (Auto) 1.0 H Eos # (Auto) 0.4 H Baso # (Auto) 0.1 Abs Immat Gran (auto) 0.07 H Absolute Neuts (auto) 8.5 H Absolute Nucleated RBC 0.000 Nucleated RBC % 0.0 APTT Sodium 152 H Potassium 3.5 Chloride 111 H Carbon Dioxide 33 H Anion Gap 8 BUN 36 H Creatinine 1.18 Estim Creat Clear Calc 57 Estimated GFR 59 Glucose 187 H POC Capillary Glucose 174 H 169 H Calcium 8.5 Phosphorus 2.7 Magnesium Transferrin Total Bilirubin AST ALT Alkaline Phosphatase Total Protein Albumin 01/25/25 01/25/25 01/25/25 06:05 06:05 07:54 WBC RBC Hgb Hct MCV MCH MCHC RDW Plt Count MPV Immature Gran % (Auto) Neut % (Auto) Lymph % (Auto) [place] % (Auto) Eos % (Auto) Baso % (Auto) Lymph # (Auto) [place] # (Auto) Eos # (Auto) Baso # (Auto) Abs Immat Gran (auto) Absolute Neuts (auto) Absolute Nucleated RBC Nucleated RBC % APTT Sodium Potassium Chloride Carbon Dioxide Anion Gap BUN Creatinine Estim Creat Clear Calc Estimated GFR Glucose POC Capillary Glucose 199 H Calcium Phosphorus Cancelled Magnesium 2.8 H Cancelled Transferrin Total Bilirubin 0.8 AST 132 H ALT 186 H Alkaline Phosphatase 41 Total Protein 7.0 Albumin 3.5 Quality VTE Prophylaxis VTE prophylaxis: mechanical ordered and pharmacologic ordered
[2025-01-25] MEDS: BISACODYL 10 MG SUPPOSITORY RECTAL (09:30)
[2025-01-25] MEDS: LIDOCAINE 5% PATCH 1 PATCH TRANSDERM (09:34)
[2025-01-25] MEDS: cloNIDine 0.1 MG/24 HR PATCH 1 PATCH TRANSDERM (09:52)
[2025-01-25] MEDS: FUROSEMIDE INJ 40 MG/4 ML VIAL IV PUSH ×2 (09:54→17:34)
[2025-01-25] MEDS: lisinopriL 20 MG TABLET 40 MG PO (09:54)
[2025-01-25] MEDS: INSULIN GLARGINE (*BKC) 100 UNITS/ML 15 UNITS SUB-Q (09:56)
[2025-01-25] MEDS: KCL 40 MEQ/WATER 100 ML 100 ML 25 ML IVPB (09:56)
[2025-01-25] MEDS: METOPROLOL TARTRATE 50 MG TAB FEED TUBE (09:57)
--- NOTE | 2025-01-25 09:59 | PCFNICU ---
ICU Rounding Note: Pt current nutrition is TPN at 40 ml/hr. Nutrition recommendation: increase to 50 ml/hr today. Last recorded weight is 128.7 kg, stable Bowel Motility: No BM reported. Labs Reviewed: Mg 2.8,BUN 36, Na 152, Glu 187 Meds Noted: Protonix, NovoLog, Reglan, Lantus, Seroquel Skin: WNL Additional Notes: Patient remains TPN at 40 ml/hr. NGT in place. Spoke with nursing and report programmer today, TPN is providing 1182 kcal and 48 gm protein which is meeting 60% kcal needs and 62% protein needs. With the TPN would recommend increasing to 50 ml/hr to better meet energy needs. Following daily in ICU rounds. Monitoring orders, diet advancement, weights, labs, plan of care Follow up every Wednesday/Wednesday.
--- NOTE | 2025-01-25 10:00 | P.PN_ITS ---
Progress Note: A&P Assessment and Plan (1) Atrial fibrillation with RVR: Code(s): I48.91 - Unspecified atrial fibrillation Status: Acute Assessment and Plan: Rate now controlled on medications. 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 (2) Ascending aortic aneurysm: Qualifiers: Presence of rupture: without rupture Qualified Code(s): I71.21 - Aneurysm of the ascending aorta, without rupture Code(s): I71.21 - Aneurysm of the ascending aorta, without rupture Status: Chronic Assessment and Plan: Asymptomatic but will need to have further workup as an outpatient by vascular surgery. Continue close monitoring of blood pressure and treat for hypertension as needed. (3) SBO (small bowel obstruction): Code(s): K56.609 - Unspecified intestinal obstruction, unspecified as to partial versus complete obstruction Status: Acute Assessment and Plan: Resolved after exploratory laparotomy and adhesiolysis. Patient has a prolonged postoperative ileus. (4) Adynamic ileus: Code(s): K56.0 - Paralytic ileus Status: Acute Assessment and Plan: Prolonged postoperative ileus. Continue NG tube decompression for now. The past the bit of flatus yesterday. Hopefully his bowels will start to wake up. Continue TPN for now. Continue supportive management intensive care unit management as per tractor sweeper driver. Patient had ambulate in the intensive care unit with nasogastric tube off suction to ambulate. (5) Malnutrition compromising bodily function: Code(s): E46 - Unspecified protein-calorie malnutrition Status: Acute Assessment and Plan: TPN via PICC line started yesterday since he has been NPO for 7 days after his exploratory laparotomy. Continue TPN until bowel function has returned. Subjective Date/time seen: 01/25/25 10:00 Interval history: Patient awake and alert sitting up in a chair today. No significant complaints of pain. Did have a small amount of flatus yesterday but no bowel movements. White blood cell count is a little elevated but still only at 10,000. No fever. Blood pressure under control with IV medications in the ICU. He is now on TPN PICC line in place. NG tube output is still bilious in appearance. Output was about 1000cc over the past 24hours. Exam GI: Other: Abdomen is obese still moderately distended. Some bowel sounds are noted. Midline incision is healing well without redness or drainage. Objective Data Vital Signs Vital Signs: Vital Signs - 24 hr 01/24/25 10:03 01/24/25 10:05 01/24/25 10:10 Temperature Pulse Rate 56 L 57 L 59 L Respiratory Rate Blood Pressure 128/76 128/76 129/71 Pulse Oximetry Oxygen Delivery Oxygen Flow Rate 01/24/25 10:19 01/24/25 10:30 01/24/25 10:45 Temperature Pulse Rate 59 L 66 64 Respiratory Rate Blood Pressure 130/76 131/82 136/85 Pulse Oximetry Oxygen Delivery Oxygen Flow Rate 01/24/25 11:30 01/24/25 12:00 01/24/25 12:00 Temperature Pulse Rate 69 77 71 Respiratory Rate 21 H Blood Pressure 151/89 H 155/84 H Pulse Oximetry 97 Oxygen Delivery Oxygen Flow Rate 01/24/25 12:00 01/24/25 12:30 01/24/25 14:00 Temperature 37.2 C Pulse Rate 67 Respiratory Rate Blood Pressure Pulse Oximetry 96 Oxygen Delivery Nasal Cannula Oxygen Flow Rate 3 01/24/25 14:00 01/24/25 14:00 01/24/25 16:00 Temperature Pulse Rate 73 73 77 Respiratory Rate 23 H 18 Blood Pressure 150/81 H 150/81 H 158/89 H Pulse Oximetry 96 98 Oxygen Delivery Oxygen Flow Rate 01/24/25 16:00 01/24/25 16:00 01/24/25 16:00 Temperature Pulse Rate 70 77 Respiratory Rate Blood Pressure 158/89 H Pulse Oximetry 98 Oxygen Delivery Nasal Cannula Oxygen Flow Rate 3 01/24/25 17:12 01/24/25 17:25 01/24/25 18:00 Temperature 36.6 C Pulse Rate 77 Respiratory Rate Blood Pressure Pulse Oximetry 98 Oxygen Delivery Nasal Cannula Oxygen Flow Rate 2 01/24/25 18:00 01/24/25 20:00 01/24/25 20:00 Temperature 36.5 C Pulse Rate 75 64 Respiratory Rate 22 H 21 H Blood Pressure 168/91 H 174/83 H Pulse Oximetry 96 94 94 Oxygen Delivery Nasal Cannula Oxygen Flow Rate 2 01/24/25 20:00 01/24/25 20:29 01/24/25 22:00 Temperature Pulse Rate 77 69 66 Respiratory Rate 20 Blood Pressure 156/81 H Pulse Oximetry 95 Oxygen Delivery Oxygen Flow Rate 01/25/25 00:00 01/25/25 00:00 01/25/25 00:00 Temperature 36.4 C L Pulse Rate 65 65 Respiratory Rate 21 H Blood Pressure 156/84 H Pulse Oximetry 95 93 Oxygen Delivery Nasal Cannula Oxygen Flow Rate 2 01/25/25 00:52 01/25/25 02:00 01/25/25 02:00 Temperature Pulse Rate 64 63 67 Respiratory Rate 21 H Blood Pressure 197/94 H Pulse Oximetry 93 Oxygen Delivery Oxygen Flow Rate 01/25/25 03:35 01/25/25 03:40 01/25/25 04:00 Temperature Pulse Rate 69 62 Respiratory Rate 21 H Blood Pressure 191/97 H Pulse Oximetry 95 94 Oxygen Delivery Nasal Cannula Oxygen Flow Rate 2 01/25/25 04:18 01/25/25 05:00 01/25/25 05:30 Temperature Pulse Rate 69 73 72 Respiratory Rate Blood Pressure 191/97 H 181/91 H 170/80 H Pulse Oximetry Oxygen Delivery Oxygen Flow Rate 01/25/25 06:00 01/25/25 06:00 01/25/25 06:36 Temperature 36.6 C Pulse Rate 69 75 77 Respiratory Rate 21 H Blood Pressure 159/89 H 159/89 H Pulse Oximetry 94 Oxygen Delivery Oxygen Flow Rate 01/25/25 06:36 01/25/25 08:00 01/25/25 08:34 Temperature 37.1 C Pulse Rate 73 79 67 Respiratory Rate 21 H Blood Pressure 183/75 H 159/80 H 180/87 H Pulse Oximetry 94 Oxygen Delivery Oxygen Flow Rate 01/25/25 08:34 Temperature Pulse Rate 67 Respiratory Rate Blood Pressure 180/87 H Pulse Oximetry Oxygen Delivery Oxygen Flow Rate Intake/Output Intake/Output: Intake & Output 01/22/25 01/23/25 01/24/25 01/25/25 23:59 23:59 23:59 23:59 Intake Total 1899.6 1320.6 1203.3 678.4 Output Total 1650 2100 3350 1200 Balance 249.6 -779.4 -2146.7 -521.6 Meds/Results Medications: Active Medications Generic Name Dose Route Start Last Admin Trade Name Freq PRN Reason Stop Dose Admin Acetaminophen 650 mg 01/21/25 10:59 Acetaminophen Elixir 325 Mg/10.15 Ml Udc PO Q6H PRN Mild Pain (1-3) or Fever Al Hydrox/Mg Hydrox/Simethicone 30 ml 01/18/25 19:20 01/25/25 05:50 Mag Hydrox/Al Hydrox/Simeth 30 Ml Udc PO 30 ml Q8HR [facility] Administration Amlodipine Besylate 10 mg 01/25/25 18:00 Amlodipine Besylate 10 Mg Tablet FEED TUBE QPM [facility] Bisacodyl 10 mg 01/20/25 09:00 01/25/25 09:21 Bisacodyl 10 Mg Suppository RECTAL 10 mg QAM [facility] Administration Clonidine HCl 1 patch 01/25/25 09:00 Clonidine 0.1 Mg/24 Hr Patch TRANSDERM WEEKLY [facility] Dextrose 12.5 gm 01/18/25 15:51 Dextrose 50% 25 Gm/50 Ml Syringe IV PUSH PRN PRN Hypoglycemia Protocol Doxazosin Mesylate 4 mg 01/25/25 09:30 Doxazosin Mesylate 4 Mg Tablet PO DAILY [facility] Enoxaparin Sodium 40 mg 01/19/25 11:45 01/25/25 09:21 Enoxaparin 40 Mg/0.4 Ml Syringe SUB-Q 40 mg DAILY [facility] Administration Furosemide 40 mg 01/25/25 09:30 Furosemide Inj 40 Mg/4 Ml Vial IV PUSH 01/25/25 17:01 BID [facility] Glucagon 1 mg 01/18/25 15:51 Glucagon For Inj 1 Mg Vial IM PRN PRN Hypoglycemia Protocol Glucose 15 gm 01/18/25 15:51 Glucose Oral Gel 15 Gm Of Glucse In 37.5 Gm Tube PO PRN PRN Hypoglycemia Protocol Hydralazine HCl 20 mg 01/22/25 10:25 01/25/25 03:27 Hydralazine Hcl 20 Mg/Ml Vial IV PUSH 20 mg Q4H PRN Administration Blood Pressure - High Piperacillin/Tazobactam/Dextrose 3.375 gm in 50 mls @ 100 mls/hr 01/17/25 02:00 01/25/25 09:19 Zosyn 3.375 Gm/Ns 50 Ml IVPB 01/26/25 14:29 100 mls/hr Q6H [facility] Administration Dextrose 1,000 mls @ 100 mls/hr 01/18/25 15:51 Dextrose 5% 1,000 Ml IVPB PRN PRN Hypoglycemia Protocol Nicardipine/Sodium Chloride 20 mg in 200 mls @ 100 mls/hr 01/22/25 10:25 01/25/25 08:34 Cardene 20 Mg/200 Ml Ns IV CONT 10 mg/hr .Q2H [facility] 100 mls/hr Administration Protocol 10 MG/HR Dextrose 1,000 mls @ 50 mls/hr 01/24/25 11:38 Dextrose 10% IV CONT .Q20H PRN if PN is interrupted Multivitamins 1.25 ml/ 1,002.5 mls @ 40 mls/hr 01/24/25 14:00 01/24/25 15:14 Multivitamins 1.25 ml/ Amino IV CONT 40 mls/hr Acids/Electrolytes/Dextrose .Q24H [facility] Administration Protocol Fat Emulsion Intravenous 250 mls @ 20.833 mls/hr 01/24/25 14:00 01/25/25 03:23 Lipids 20% IVPB Infused Q24H [facility] Infusion Potassium Chloride 100 mls @ 25 mls/hr 01/25/25 09:34 Kcl 40 Meq/Water 100 Ml IVPB 01/25/25 13:33 ONCE ONE Insulin Aspart 3 - 6 units 01/24/25 11:50 01/25/25 09:19 Insulin Aspart (*Bkc) 100 Units/Ml SUB-Q Not Given Q4H [facility] Protocol Insulin Glargine 15 units 01/25/25 09:35 Insulin Glargine (*Bkc) 100 Units/Ml SUB-Q QAM [facility] Levothyroxine Sodium 25 mcg 01/24/25 06:30 01/25/25 05:50 Levothyroxine Sodium 25 Mcg Tablet PO 25 mcg DAILY@0630 [facility] Administration Lidocaine 1 patch 01/19/25 13:35 01/25/25 09:34 Lidocaine 5% Patch TRANSDERM 1 patch DAILY [facility] Administration Lisinopril 40 mg 01/25/25 09:30 Lisinopril 20 Mg Tablet PO QAM [facility] Melatonin 3 mg 01/19/25 22:39 01/19/25 23:16 Melatonin 3 Mg Tablet PO 3 mg HS PRN Administration Insomnia Metoclopramide HCl 10 mg 01/19/25 00:00 01/25/25 05:50 Metoclopramide Hcl Inj 10 Mg/2 Ml Vial IV PUSH 10 mg Q6HR [facility] Administration Metoprolol Tartrate 50 mg 01/25/25 09:35 Metoprolol Tartrate 50 Mg Tab FEED TUBE Q12HR [facility] Ondansetron HCl 4 mg 01/17/25 19:07 01/17/25 22:44 Ondansetron Inj 4 Mg/2 Ml Vial IV PUSH 4 mg Q4H PRN Administration Nausea Pantoprazole Sodium 40 mg 01/17/25 22:30 01/25/25 09:21 Pantoprazole Sodium Iv 40 Mg Vial IV PUSH 40 mg Q12HR [facility] Administration Quetiapine Fumarate 25 mg 01/21/25 21:00 01/25/25 09:21 Quetiapine Fumarate 25 Mg Tablet PO 25 mg Q12HR [facility] Administration Sodium Chloride 20 ml 01/24/25 14:41 Central Line Flush IV PUSH PRN PRN after blood draws Sodium Chloride 10 ml 01/24/25 14:41 Central Line Flush IV PUSH PRN PRN with TPN bag changes Sodium Chloride 10 ml 01/24/25 22:00 01/25/25 04:19 Central Line Flush IV PUSH 10 ml Q8HR [facility] Administration Radiology Results: ITS Impressions Abdomen/Pelvis CT 01/17/25 18:07 IMPRESSION: Ascending aortic aneurysm measuring up to 5.6 cm. The descending thoracic aorta is mildly dilated to 3.1 cm. Consider nonemergent but timely outpatient CT angiography of the chest and appropriate referral for monitoring/potential intervention. Mild esophagitis/gastritis. Periesophageal lymphadenopathy. Hepatomegaly with steatosis. Mid small bowel obstruction, transition point in the left lateral abdomen. Small volume ascites. Bladder wall thickening, likely secondary to chronic outlet obstruction from prostatomegaly. Small Bowel X-Ray 01/18/25 15:02 IMPRESSION: 1. Small bowel obstruction. Chest X-Ray 01/24/25 14:53 IMPRESSION: Right PICC line with the tip overlying the right atrium. Cardiomegaly. Minimal opacification in the left lung base. Labs Labs: Laboratory Results - last 24 hr 01/24/25 01/24/25 01/24/25 11:21 12:28 16:11 WBC RBC Hgb Hct MCV MCH MCHC RDW Plt Count MPV Immature Gran % (Auto) Neut % (Auto) Lymph % (Auto) [place] % (Auto) Eos % (Auto) Baso % (Auto) Lymph # (Auto) [place] # (Auto) Eos # (Auto) Baso # (Auto) Abs Immat Gran (auto) Absolute Neuts (auto) Absolute Nucleated RBC Nucleated RBC % APTT 23.9 Sodium Potassium Chloride Carbon Dioxide Anion Gap BUN Creatinine Estim Creat Clear Calc Estimated GFR Glucose POC Capillary Glucose 148 H 142 H Calcium Phosphorus Magnesium 2.9 H Transferrin 235 Total Bilirubin AST ALT Alkaline Phosphatase Total Protein Albumin 01/24/25 01/25/25 01/25/25 20:26 00:47 06:05 WBC 11.1 H RBC 5.18 Hgb 14.2 Hct 47.4 MCV 91.5 MCH 27.4 MCHC 30.0 L RDW 14.0 Plt Count 252 MPV 9.3 Immature Gran % (Auto) 0.6 H Neut % (Auto) 76.4 H Lymph % (Auto) 10.5 L [place] % (Auto) 8.8 H Eos % (Auto) 3.2 Baso % (Auto) 0.5 Lymph # (Auto) 1.17 [place] # (Auto) 1.0 H Eos # (Auto) 0.4 H Baso # (Auto) 0.1 Abs Immat Gran (auto) 0.07 H Absolute Neuts (auto) 8.5 H Absolute Nucleated RBC 0.000 Nucleated RBC % 0.0 APTT Sodium 152 H Potassium 3.5 Chloride 111 H Carbon Dioxide 33 H Anion Gap 8 BUN 36 H Creatinine 1.18 Estim Creat Clear Calc 57 Estimated GFR 59 Glucose 187 H POC Capillary Glucose 174 H 169 H Calcium 8.5 Phosphorus 2.7 Magnesium Transferrin Total Bilirubin AST ALT Alkaline Phosphatase Total Protein Albumin 01/25/25 01/25/25 01/25/25 06:05 06:05 07:54 WBC RBC Hgb Hct MCV MCH MCHC RDW Plt Count MPV Immature Gran % (Auto) Neut % (Auto) Lymph % (Auto) [place] % (Auto) Eos % (Auto) Baso % (Auto) Lymph # (Auto) [place] # (Auto) Eos # (Auto) Baso # (Auto) Abs Immat Gran (auto) Absolute Neuts (auto) Absolute Nucleated RBC Nucleated RBC % APTT Sodium Potassium Chloride Carbon Dioxide Anion Gap BUN Creatinine Estim Creat Clear Calc Estimated GFR Glucose POC Capillary Glucose 199 H Calcium Phosphorus Cancelled Magnesium 2.8 H Cancelled Transferrin Total Bilirubin 0.8 AST 132 H ALT 186 H Alkaline Phosphatase 41 Total Protein 7.0 Albumin 3.5
[2025-01-25] MEDS: niCARdipine 20 MG/200 ML 20 MG/200 ML BAG 50 MG IV CONT (10:40)
[2025-01-25 11:00] LABS: Triglycerides 232 mg/dL (<150)
[2025-01-25 11:48] LABS: Glucose Point of Care 198 mg/dl (65-105)
[2025-01-25] MEDS: FAT EMULSIONS IV 20% 250 ML 20.83 ML IVPB (13:57)
[2025-01-25] MEDS: AMINO ACIDS 5%/D15W/E-LYTES/CA 1,000 ML with MULTIVITAMINS-12 INJ VIAL 1 1.25 ML, MULTI... 40 ML IV CONT (13:58)
[2025-01-25 16:52] LABS: Glucose Point of Care 157 mg/dl (65-105)
[2025-01-25] MEDS: amLODIPine BESYLATE 10 MG TABLET FEED TUBE (17:35)
--- NOTE | 2025-01-25 17:38 | PM.IMPN ---
Progress Note: A&P Assessment and Plan (1) SBO (small bowel obstruction): Code(s): K56.609 - Unspecified intestinal obstruction, unspecified as to partial versus complete obstruction Status: Acute Assessment and Plan: 02/15: Patient was admitted for abdominal pain, small-bowel obstruction on abdominal CT scan -Surgery was consulted, patient was taken for surgery on 01/18/2025 for high-grade small-bowel obstruction secondary to abdominal adhesions, status post exploratory laparotomy with abdominal adhesiolysis. -continue Zosyn per surgery -Patient has developed ileus. Patient has NG tube in place which is on continue suction. bowel rest, NG tube decompression, -patient had a bowel movement. ? Trial of p.o. diet -management per General surgery -continue reglan, Dulcolax suppository has been ordered per surgery -discussed with general surgeon -01/24 started TPN 01/22: Obstructive series indicated Ileus 02/14: CT scan of the abdomen and pelvis showed mid small-bowel obstruction with transition point in the left lateral abdomen, small volume ascites, hepatomegaly with steatosis, bladder wall thickening likely secondary to chronic outlet obstruction prostatomegaly. Ascending aortic aneurysm measuring 5.6 cm, descending thoracic aorta is mildly dilated to 3.1 cm mild esophagitis/gastritis, periesophageal lymphadenopathy. (2) Hypertension: Qualifiers: Hypertension type: primary hypertension Qualified Code(s): I10 - Essential (primary) hypertension Code(s): I10 - Essential (primary) hypertension Status: Acute Assessment and Plan: Patient currently off nicardipine infusion with improvement since he has abdominal aortic aneurysm. Off Cardizem infusion as patient is in sinus rhythm. Continue p.o. metoprolol , Norvasc, lisinopril Increase doxazosin to 8 mg mg Clonidine transdermal patch considering unreliable p.o. absorption (3) Diabetes mellitus with renal manifestation: Code(s): E11.29 - Type 2 diabetes mellitus with other diabetic kidney complication Status: Acute Assessment and Plan: Continue Accu-Cheks and sliding scale insulin Continue Lantus (4) BPH (benign prostatic hyperplasia): Code(s): N40.0 - Benign prostatic hyperplasia without lower urinary tract symptoms Status: Acute Assessment and Plan: Mckinney catheter in place, patient had adequate urine output (5) Atrial fibrillation with RVR: Code(s): I48.91 - Unspecified atrial fibrillation Status: Acute Assessment and Plan: Converted to sinus rhythm. Discontinue Cardizem infusion Continue p.o. metoprolol Systemic anticoagulation is on hold and resumption as per General surgery Aspirin (6) Acute respiratory failure: Code(s): J96.00 - Acute respiratory failure, unspecified whether with hypoxia or hypercapnia Status: Acute Assessment and Plan: Currently on nasal cannula. Likely atelectasis. Continue incentive spirometry. PT OT (7) Delirium: Code(s): R41.0 - Disorientation, unspecified Status: Acute Assessment and Plan: Off Precedex infusion. Improved. Much more alert and oriented. Restraints have been discontinued Sitter at bedside Continue Seroquel (8) Electrolyte abnormality: Code(s): E87.8 - Other disorders of electrolyte and fluid balance, not elsewhere classified Status: Acute Assessment and Plan: Replace low potassium and phos D5 water for hypernatremia (9) Elevated serum creatinine: Code(s): R79.89 - Other specified abnormal findings of blood chemistry Status: Acute Assessment and Plan: Patient was given Lasix yesterday 2 doses and there is elevation of creatinine is CO2 suggestive of contraction alkalosis Hold diuretics and will give some fluids today. Monitor urine output electrolytes and creatinine Plan patient was found to have High-grade small-bowel obstruction secondary to abdominal adhesions was seen by surgery service had exploratory laparotomy, abdominal adhesiolysis on 01/18, however patient became confused removed his IV, and was wondering in the hospital, patient was brought back to the room, patient was aggressive, transferred to ICU for sedation with Precedex, patient is now off Precedex, more alert and eating ice, stats does pass some gas, today patient talking stats feels better, his son is present in the room, patient is clinically improving. on 01/24 patient had been NPO for last seven day, surgeon has started patient has PICC line on TPN, will continue until patient bowl function return, patient is seen by surgery service and machine specialist and further recommendation to follow. DVT prophylaxis: Enoxaparin subcutaneous Stress ulcer prophylaxis: Protonix IV q.12 hours Nutrition: NG tube management as above, npo Code Status: Full code Switched to nasal cannula, incentive spirometry PT OT Subjective Date/time seen: 01/25/25 17:38 Interval history: Patient admitted for treatment of SBO and plan for exploratory laparotomy. Patient still hypertensive will increase IV metoprolol to 5 mg scheduled and schedule his IV hydralazine. Patient refusing NG tube but denies ABD pain, distention slightly improved. Patient reported flatulence but still no BM. H&P-Narrative He presents with a few hours' history of central abdominal pain; it is localized; rated 10 in intensity, aggravated by meals/drinks, alleviated by fasting; associated with bilious but non-bloody emesis, malaise, anorexia, chills and rigors. His last BM was days ago; he denies chest pain, dizziness, LOC, flank pain, dysuria, hematuria or [place]. patient was found to have High-grade small-bowel obstruction secondary to abdominal adhesions was seen by surgery service had exploratory laparotomy, abdominal adhesiolysis on 01/18, however patient became confused removed his IV, and was wondering in the hospital, patient was brought back to the room, patient was aggressive, transferred to ICU for sedation with Precedex, patient is now off Precedex, more alert and eating ice, stats does pass some gas, today patient talking stats feels better, his son is present in the room, patient is clinically improving. on 01/24 patient had been NPO for last seven day, surgeon has started patient has PICC line on TPN, will continue until patient bowl function return, patient is seen by surgery service and machine specialist and further recommendation to follow. Review of Systems Review of Systems: ROS unobtainable: Yes unobtainable due to mental status Exam Narrative: Patient is comfortable, NAD HEENT: NG tube in place LUNGS:CTA ABD: distended Lower extremities: no edema SKIN: nonjaundiced Neuro: Sedated Objective Data Vital Signs Vital Signs: Vital Signs - 24 hr 01/24/25 18:00 01/24/25 18:00 01/24/25 20:00 Temperature Pulse Rate 77 75 Respiratory Rate 22 H Blood Pressure 168/91 H Pulse Oximetry 96 94 Oxygen Delivery Nasal Cannula Oxygen Flow Rate 2 01/24/25 20:00 01/24/25 20:00 01/24/25 20:29 Temperature 36.5 C Pulse Rate 64 77 69 Respiratory Rate 21 H Blood Pressure 174/83 H Pulse Oximetry 94 Oxygen Delivery Oxygen Flow Rate 01/24/25 22:00 01/25/25 00:00 01/25/25 00:00 Temperature 36.4 C L Pulse Rate 66 65 Respiratory Rate 20 21 H Blood Pressure 156/81 H 156/84 H Pulse Oximetry 95 95 93 Oxygen Delivery Nasal Cannula Oxygen Flow Rate 2 01/25/25 00:00 01/25/25 00:52 01/25/25 02:00 Temperature Pulse Rate 65 64 63 Respiratory Rate 21 H Blood Pressure 197/94 H Pulse Oximetry 93 Oxygen Delivery Oxygen Flow Rate 01/25/25 02:00 01/25/25 03:35 01/25/25 03:40 Temperature Pulse Rate 67 69 Respiratory Rate Blood Pressure Pulse Oximetry 95 Oxygen Delivery Nasal Cannula Oxygen Flow Rate 2 01/25/25 04:00 01/25/25 04:18 01/25/25 05:00 Temperature Pulse Rate 62 69 73 Respiratory Rate 21 H Blood Pressure 191/97 H 191/97 H 181/91 H Pulse Oximetry 94 Oxygen Delivery Oxygen Flow Rate 01/25/25 05:30 01/25/25 06:00 01/25/25 06:00 Temperature 36.6 C Pulse Rate 72 69 75 Respiratory Rate 21 H Blood Pressure 170/80 H 159/89 H 159/89 H Pulse Oximetry 94 Oxygen Delivery Oxygen Flow Rate 01/25/25 06:36 01/25/25 06:36 01/25/25 08:00 Temperature 37.1 C Pulse Rate 77 73 79 Respiratory Rate 21 H Blood Pressure 183/75 H 159/80 H Pulse Oximetry 94 Oxygen Delivery Oxygen Flow Rate 01/25/25 08:00 01/25/25 08:34 01/25/25 08:34 Temperature Pulse Rate 75 67 67 Respiratory Rate Blood Pressure 180/87 H 180/87 H Pulse Oximetry Oxygen Delivery Oxygen Flow Rate 01/25/25 09:57 01/25/25 10:00 01/25/25 10:00 Temperature 36.4 C L Pulse Rate 73 78 70 Respiratory Rate 23 H Blood Pressure 131/67 131/67 Pulse Oximetry 94 Oxygen Delivery Oxygen Flow Rate 01/25/25 10:00 01/25/25 10:15 01/25/25 10:40 Temperature Pulse Rate 69 65 69 Respiratory Rate Blood Pressure 132/70 122/71 Pulse Oximetry Oxygen Delivery Oxygen Flow Rate 01/25/25 10:40 01/25/25 11:05 01/25/25 11:10 Temperature Pulse Rate 69 59 L 59 L Respiratory Rate Blood Pressure 122/71 115/67 115/72 Pulse Oximetry Oxygen Delivery Oxygen Flow Rate 01/25/25 11:15 01/25/25 12:00 01/25/25 12:00 Temperature 37.0 C Pulse Rate 59 L 61 61 Respiratory Rate 22 H Blood Pressure 117/69 127/75 127/75 Pulse Oximetry 96 Oxygen Delivery Oxygen Flow Rate 01/25/25 12:00 01/25/25 14:00 01/25/25 14:00 Temperature Pulse Rate 61 71 60 Respiratory Rate Blood Pressure 131/73 Pulse Oximetry Oxygen Delivery Oxygen Flow Rate 01/25/25 14:00 01/25/25 16:00 01/25/25 16:00 Temperature 36.6 C Pulse Rate 62 64 56 L Respiratory Rate 20 Blood Pressure 131/73 139/83 Pulse Oximetry 92 Oxygen Delivery Oxygen Flow Rate 01/25/25 16:00 01/25/25 17:08 Temperature 36.6 C Pulse Rate 58 L Respiratory Rate 17 Blood Pressure 137/75 Pulse Oximetry 91 97 Oxygen Delivery Nasal Cannula Oxygen Flow Rate 2 Intake/Output Intake/Output: Intake & Output 01/22/25 01/23/25 01/24/25 01/25/25 23:59 23:59 23:59 23:59 Intake Total 1899.6 1320.6 1203.3 2904.0 Output Total 1650 2100 3350 1950 Balance 249.6 -779.4 -2146.7 954.0 Meds/Results Medications: Active Medications Generic Name Dose Route Start Last Admin Trade Name Freq PRN Reason Stop Dose Admin Acetaminophen 650 mg 01/21/25 10:59 Acetaminophen Elixir 325 Mg/10.15 Ml Udc PO Q6H PRN Mild Pain (1-3) or Fever Al Hydrox/Mg Hydrox/Simethicone 30 ml 01/18/25 19:20 01/25/25 14:04 Mag Hydrox/Al Hydrox/Simeth 30 Ml Udc PO 30 ml Q8HR [facility] Administration Amlodipine Besylate 10 mg 01/25/25 18:00 Amlodipine Besylate 10 Mg Tablet FEED TUBE QPM [facility] Bisacodyl 10 mg 01/20/25 09:00 01/25/25 09:21 Bisacodyl 10 Mg Suppository RECTAL 10 mg QAM [facility] Administration Clonidine HCl 1 patch 01/25/25 09:00 01/25/25 09:52 Clonidine 0.1 Mg/24 Hr Patch TRANSDERM 1 patch WEEKLY [facility] Administration Dextrose 12.5 gm 01/18/25 15:51 Dextrose 50% 25 Gm/50 Ml Syringe IV PUSH PRN PRN Hypoglycemia Protocol Doxazosin Mesylate 4 mg 01/25/25 09:30 01/25/25 09:54 Doxazosin Mesylate 4 Mg Tablet PO 4 mg DAILY [facility] Administration Enoxaparin Sodium 40 mg 01/19/25 11:45 01/25/25 09:21 Enoxaparin 40 Mg/0.4 Ml Syringe SUB-Q 40 mg DAILY [facility] Administration Glucagon 1 mg 01/18/25 15:51 Glucagon For Inj 1 Mg Vial IM PRN PRN Hypoglycemia Protocol Glucose 15 gm 01/18/25 15:51 Glucose Oral Gel 15 Gm Of Glucse In 37.5 Gm Tube PO PRN PRN Hypoglycemia Protocol Hydralazine HCl 20 mg 01/22/25 10:25 01/25/25 03:27 Hydralazine Hcl 20 Mg/Ml Vial IV PUSH 20 mg Q4H PRN Administration Blood Pressure - High Piperacillin/Tazobactam/Dextrose 3.375 gm in 50 mls @ 100 mls/hr 01/17/25 02:00 01/25/25 15:51 Zosyn 3.375 Gm/Ns 50 Ml IVPB 01/26/25 14:29 Infused Q6H [facility] Infusion Dextrose 1,000 mls @ 100 mls/hr 01/18/25 15:51 Dextrose 5% 1,000 Ml IVPB PRN PRN Hypoglycemia Protocol Nicardipine/Sodium Chloride 20 mg in 200 mls @ 0 mls/hr 01/22/25 10:25 01/25/25 16:00 Cardene 20 Mg/200 Ml Ns IV CONT 0 mg/hr .Q0M [facility] 0 mls/hr Titration Protocol Dextrose 1,000 mls @ 50 mls/hr 01/24/25 11:38 Dextrose 10% IV CONT .Q20H PRN if PN is interrupted Multivitamins 1.25 ml/ 1,002.5 mls @ 40 mls/hr 01/24/25 14:00 01/25/25 13:58 Multivitamins 1.25 ml/ Amino IV CONT 40 mls/hr Acids/Electrolytes/Dextrose .Q24H [facility] Administration Protocol Fat Emulsion Intravenous 250 mls @ 20.833 mls/hr 01/24/25 14:00 01/25/25 13:57 Lipids 20% IVPB 20.83 mls/hr Q24H [facility] Administration Insulin Aspart 3 - 6 units 01/24/25 11:50 01/25/25 17:08 Insulin Aspart (*Bkc) 100 Units/Ml SUB-Q Not Given Q4H [facility] Protocol Insulin Glargine 15 units 01/25/25 09:35 01/25/25 09:56 Insulin Glargine (*Bkc) 100 Units/Ml SUB-Q 15 units QAM [facility] Administration Levothyroxine Sodium 25 mcg 01/24/25 06:30 01/25/25 05:50 Levothyroxine Sodium 25 Mcg Tablet PO 25 mcg DAILY@0630 [facility] Administration Lidocaine 1 patch 01/19/25 13:35 01/25/25 09:34 Lidocaine 5% Patch TRANSDERM 1 patch DAILY [facility] Administration Lisinopril 40 mg 01/25/25 09:30 01/25/25 09:54 Lisinopril 20 Mg Tablet PO 40 mg QAM [facility] Administration Melatonin 3 mg 01/19/25 22:39 01/19/25 23:16 Melatonin 3 Mg Tablet PO 3 mg HS PRN Administration Insomnia Metoclopramide HCl 10 mg 01/19/25 00:00 01/25/25 12:01 Metoclopramide Hcl Inj 10 Mg/2 Ml Vial IV PUSH 10 mg Q6HR [facility] Administration Metoprolol Tartrate 25 mg 01/25/25 21:00 Metoprolol Tartrate 25 Mg Tablet FEED TUBE Q12HR [facility] Miscellaneous Information 1 each 01/25/25 00:01 Clinamix Needs To Be Renewed Or It Will Automatically Discontinue. XX 02/24/25 00:00 CLARIFY [facility] Ondansetron HCl 4 mg 01/17/25 19:07 01/17/25 22:44 Ondansetron Inj 4 Mg/2 Ml Vial IV PUSH 4 mg Q4H PRN Administration Nausea Pantoprazole Sodium 40 mg 01/17/25 22:30 01/25/25 09:21 Pantoprazole Sodium Iv 40 Mg Vial IV PUSH 40 mg Q12HR [facility] Administration Quetiapine Fumarate 25 mg 01/21/25 21:00 01/25/25 09:21 Quetiapine Fumarate 25 Mg Tablet PO 25 mg Q12HR [facility] Administration Sodium Chloride 20 ml 01/24/25 14:41 Central Line Flush IV PUSH PRN PRN after blood draws Sodium Chloride 10 ml 01/24/25 14:41 Central Line Flush IV PUSH PRN PRN with TPN bag changes Sodium Chloride 10 ml 01/24/25 22:00 01/25/25 14:04 Central Line Flush IV PUSH 10 ml Q8HR [facility] Administration Radiology Results: ITS Impressions Abdomen/Pelvis CT 01/17/25 18:07 IMPRESSION: Ascending aortic aneurysm measuring up to 5.6 cm. The descending thoracic aorta is mildly dilated to 3.1 cm. Consider nonemergent but timely outpatient CT angiography of the chest and appropriate referral for monitoring/potential intervention. Mild esophagitis/gastritis. Periesophageal lymphadenopathy. Hepatomegaly with steatosis. Mid small bowel obstruction, transition point in the left lateral abdomen. Small volume ascites. Bladder wall thickening, likely secondary to chronic outlet obstruction from prostatomegaly. Small Bowel X-Ray 01/18/25 15:02 IMPRESSION: 1. Small bowel obstruction. Chest X-Ray 01/24/25 14:53 IMPRESSION: Right PICC line with the tip overlying the right atrium. Cardiomegaly. Minimal opacification in the left lung base. Abdomen X-Ray 01/25/25 10:01 IMPRESSION: Significant gaseous distention of the stomach and several loops of proximal small bowel with additional findings suggesting fecal impaction, as detailed above. Labs Labs: Laboratory Results - last 24 hr 01/24/25 01/25/25 01/25/25 20:26 00:47 06:00 WBC RBC Hgb Hct MCV MCH MCHC RDW Plt Count MPV Immature Gran % (Auto) Neut % (Auto) Lymph % (Auto) [place] % (Auto) Eos % (Auto) Baso % (Auto) Lymph # (Auto) [place] # (Auto) Eos # (Auto) Baso # (Auto) Abs Immat Gran (auto) Absolute Neuts (auto) Absolute Nucleated RBC Nucleated RBC % Sodium Potassium Chloride Carbon Dioxide Anion Gap BUN Creatinine Estim Creat Clear Calc Estimated GFR Glucose POC Capillary Glucose 174 H 169 H Calcium Phosphorus Magnesium Total Bilirubin AST ALT Alkaline Phosphatase Total Protein Albumin Triglycerides 232 H 01/25/25 01/25/25 01/25/25 06:05 06:05 06:05 WBC 11.1 H RBC 5.18 Hgb 14.2 Hct 47.4 MCV 91.5 MCH 27.4 MCHC 30.0 L RDW 14.0 Plt Count 252 MPV 9.3 Immature Gran % (Auto) 0.6 H Neut % (Auto) 76.4 H Lymph % (Auto) 10.5 L [place] % (Auto) 8.8 H Eos % (Auto) 3.2 Baso % (Auto) 0.5 Lymph # (Auto) 1.17 [place] # (Auto) 1.0 H Eos # (Auto) 0.4 H Baso # (Auto) 0.1 Abs Immat Gran (auto) 0.07 H Absolute Neuts (auto) 8.5 H Absolute Nucleated RBC 0.000 Nucleated RBC % 0.0 Sodium 152 H Potassium 3.5 Chloride 111 H Carbon Dioxide 33 H Anion Gap 8 BUN 36 H Creatinine 1.18 Estim Creat Clear Calc 57 Estimated GFR 59 Glucose 187 H POC Capillary Glucose Calcium 8.5 Phosphorus 2.7 Cancelled Magnesium 2.8 H Cancelled Total Bilirubin 0.8 AST 132 H ALT 186 H Alkaline Phosphatase 41 Total Protein 7.0 Albumin 3.5 Triglycerides 01/25/25 01/25/25 01/25/25 07:54 11:37 16:48 WBC RBC Hgb Hct MCV MCH MCHC RDW Plt Count MPV Immature Gran % (Auto) Neut % (Auto) Lymph % (Auto) [place] % (Auto) Eos % (Auto) Baso % (Auto) Lymph # (Auto) [place] # (Auto) Eos # (Auto) Baso # (Auto) Abs Immat Gran (auto) Absolute Neuts (auto) Absolute Nucleated RBC Nucleated RBC % Sodium Potassium Chloride Carbon Dioxide Anion Gap BUN Creatinine Estim Creat Clear Calc Estimated GFR Glucose POC Capillary Glucose 199 H 198 H 157 H Calcium Phosphorus Magnesium Total Bilirubin AST ALT Alkaline Phosphatase Total Protein Albumin Triglycerides Quality VTE Prophylaxis VTE prophylaxis: mechanical ordered and pharmacologic ordered
[2025-01-25 20:36] LABS: Glucose Point of Care 122 mg/dl (65-105)
[2025-01-26] VITALS (16 sets, daily range): BP systolic 106–175; BP diastolic 62–93; PULSE 56–93; RESP 15–20; TEMP 36.3–37.3; O2SAT 95–100
[2025-01-26 00:03] LABS: Glucose Point of Care 150 mg/dl (65-105)
[2025-01-26] MEDS: PIPERACILLN/TAZ 3.375GM/NS50ML 3.375 GM/50 ML BAG IVPB ×2 (03:30→08:02)
[2025-01-26] MEDS: hydrALAZINE HCL 20 MG/ML VIAL IV PUSH (04:00)
[2025-01-26] MEDS: METOCLOPRAMIDE HCL INJ 10 MG/2 ML VIAL IV PUSH (05:49)
[2025-01-26] MEDS: MAG HYDROX/AL HYDROX/SIMETH 30 ML UDC PO (05:49)
[2025-01-26] MEDS: CENTRAL LINE FLUSH 10 ML IV PUSH ×3 (05:50→20:44)
[2025-01-26] MEDS: LEVOTHYROXINE SODIUM 25 MCG TABLET PO (05:50)
[2025-01-26 06:10] LABS: Basophils Percent Auto 0.3 % (0.2-1.2); Eosinophils Absolute Auto 0.3 K/mm3 (0-0.3); Hematocrit 44.6 % (42.0-52.0); Hemoglobin 13.5 g/dL (14.0-18.0); Immature Granulocyte Absolute 0.06 K/mm3 (0.00-0.031); Immature Granulocyte Percent A 0.8 % (0-0.5); Lymphocytes Absolute Auto 1.35 K/mm3 (0.9-3.2); Mean Corpuscular HGB Conc 30.3 g/dl (32-36); Mean Corpuscular Hemoglobin 27.6 pg (26-34); Mean Platelet Volume 9.8 fl (7.4-10.4); Monocytes Absolute Auto 0.7 K/mm3 (0.1-0.6); Monocytes Percent Auto 8.2 % (2.6-8.5); Neutrophils Absolute Auto 5.5 K/mm3 (1.3-6.7); Neutrophils Percent Auto 69.7 % (45.5-73.1); Platelet Count Result 214 k/mm3 (150-375); Red Cell Distribution Width 14.2 % (11.5-14.5); White Blood Count 7.9 K/mm3 (4.5-10.0)
[2025-01-26 06:21] LABS: Alanine Aminotransferase 189 U/L (6-50); Albumin Level 3.6 g/dL (3.5-5.1); Alkaline Phosphatase 40 U/L (38-126); Anion Gap 8 mmol/L (4-12); Aspartate Amino Transferase 122 U/L (17-59); Bilirubin,Total 0.8 mg/dL (0.2-1.3); Blood Urea Nitrogen 38 mg/dL (9-20); Calcium 8.7 mg/dL (8.4-10.2); Carbon Dioxide 31 mmol/L (22-30); Chloride 112 mmol/L (98-107); Estimated CRCL calculation 50 ml/min; Estimated Glomerular Filt Rate 51; Glucose 170 mg/dL (65-110); Phosphorus 2.3 mg/dL (2.5-4.5); Potassium 3.4 mmol/L (3.4-5.0); Sodium 151 mmol/L (137-145)
[2025-01-26] MEDS: ENOXAPARIN 40 MG/0.4 ML SYRINGE SUB-Q (07:59)
[2025-01-26] MEDS: ACETAMINOPHEN ELIXIR 325 MG/10.15 ML UDC 650 MG PO (07:59)
[2025-01-26] MEDS: LIDOCAINE 5% PATCH 1 PATCH TRANSDERM (08:01)
[2025-01-26] MEDS: PANTOPRAZOLE SODIUM IV 40 MG VIAL IV PUSH ×2 (08:02→20:44)
[2025-01-26] MEDS: lisinopriL 20 MG TABLET 40 MG PO (08:02)
[2025-01-26] MEDS: METOPROLOL TARTRATE 25 MG TABLET FEED TUBE ×2 (08:02→20:44)
[2025-01-26] MEDS: QUEtiapine FUMARATE 25 MG TABLET PO ×2 (08:02→20:44)
[2025-01-26] MEDS: DOXAZOSIN MESYLATE 4 MG TABLET PO (08:02)
[2025-01-26 08:08] LABS: Glucose Point of Care 149 mg/dl (65-105)
[2025-01-26] MEDS: DOXAZOSIN MESYLATE 4 MG TABLET 8 MG PO (08:12)
[2025-01-26] MEDS: INSULIN GLARGINE (*BKC) 100 UNITS/ML 15 UNITS SUB-Q (08:13)
[2025-01-26] MEDS: KCL 20 MEQ/D5W 1,000 ML 1,000 ML 100 ML IV CONT (08:30)
--- NOTE | 2025-01-26 08:59 | P.PNINT_ITS ---
Progress Note: A&P Assessment and Plan (1) SBO (small bowel obstruction): Code(s): K56.609 - Unspecified intestinal obstruction, unspecified as to partial versus complete obstruction Status: Acute Assessment and Plan: 02/15: Patient was admitted for abdominal pain, small-bowel obstruction on abdominal CT scan -Surgery was consulted, patient was taken for surgery on 01/18/2025 for high- grade small-bowel obstruction secondary to abdominal adhesions, status post exploratory laparotomy with abdominal adhesiolysis. -continue Zosyn per surgery -Patient has developed ileus. Patient has NG tube in place which is on continue suction. bowel rest, NG tube decompression, -patient had a bowel movement. ? Trial of p.o. diet -management per General surgery -continue reglan, Dulcolax suppository has been ordered per surgery -discussed with general surgeon -01/24 started TPN 01/22: Obstructive series indicated Ileus 02/14: CT scan of the abdomen and pelvis showed mid small-bowel obstruction with transition point in the left lateral abdomen, small volume ascites, hepatomegaly with steatosis, bladder wall thickening likely secondary to chronic outlet obstruction prostatomegaly. Ascending aortic aneurysm measuring 5.6 cm, descending thoracic aorta is mildly dilated to 3.1 cm mild esophagitis/gastritis, periesophageal lymphadenopathy. (2) Hypertension: Qualifiers: Hypertension type: primary hypertension Qualified Code(s): I10 - Essential (primary) hypertension Code(s): I10 - Essential (primary) hypertension Status: Acute Assessment and Plan: Patient currently off nicardipine infusion with improvement since he has abdominal aortic aneurysm. Off Cardizem infusion as patient is in sinus rhythm. Continue p.o. metoprolol , Norvasc, lisinopril Increase doxazosin to 8 mg mg Clonidine transdermal patch considering unreliable p.o. absorption (3) Diabetes mellitus with renal manifestation: Code(s): E11.29 - Type 2 diabetes mellitus with other diabetic kidney complication Status: Acute Assessment and Plan: Continue Accu-Cheks and sliding scale insulin Continue Lantus (4) BPH (benign prostatic hyperplasia): Code(s): N40.0 - Benign prostatic hyperplasia without lower urinary tract symptoms Status: Acute Assessment and Plan: Mckinney catheter in place, patient had adequate urine output (5) Atrial fibrillation with RVR: Code(s): I48.91 - Unspecified atrial fibrillation Status: Acute Assessment and Plan: Converted to sinus rhythm. Discontinue Cardizem infusion Continue p.o. metoprolol Systemic anticoagulation is on hold and resumption as per General surgery Aspirin (6) Acute respiratory failure: Code(s): J96.00 - Acute respiratory failure, unspecified whether with hypoxia or hypercapnia Status: Acute Assessment and Plan: Currently on nasal cannula. Likely atelectasis. Continue incentive spirometry. PT OT (7) Delirium: Code(s): R41.0 - Disorientation, unspecified Status: Acute Assessment and Plan: Off Precedex infusion. Improved. Much more alert and oriented. Restraints have been discontinued Sitter at bedside Continue Seroquel (8) Electrolyte abnormality: Code(s): E87.8 - Other disorders of electrolyte and fluid balance, not elsewhere classified Status: Acute Assessment and Plan: Replace low potassium and phos D5 water for hypernatremia (9) Elevated serum creatinine: Code(s): R79.89 - Other specified abnormal findings of blood chemistry Status: Acute Assessment and Plan: Patient was given Lasix yesterday 2 doses and there is elevation of creatinine is CO2 suggestive of contraction alkalosis Hold diuretics and will give some fluids today. Monitor urine output electrolytes and creatinine Plan DVT prophylaxis: Enoxaparin subcutaneous Stress ulcer prophylaxis: Protonix IV q.12 hours Nutrition: NG tube management as above, npo Code Status: Full code Switched to nasal cannula, incentive spirometry PT OT Subjective Date/time seen: 01/26/25 Overnight events reviewed. Afebrile Continues to be on nasal cannula On TPN Blood pressure elevated but off of nicardipine infusion since yesterday Other Vitals acceptable He states he feels markedly better. He had a bowel movement yesterday which was large. He is passing gas. NG tube is in place. Patient denies fever, chest pain, shortness of breath, cough, nausea vomiting, abdominal pain,, diarrhea, headache or constipation. All other systems were reviewed were negative Interval history: Reason for consult: Delirium, agitation, combativeness requiring Precedex infusion Review of Systems Review of Systems: All systems reviewed & are unremarkable except as noted in HPI and below (HPI) Exam Narrative: General: Obese gentleman, currently no acute distress HEENT:? Pupils equal reactive, sclera is clear, on high-flow therapy Neck:? Supple, thick neck Respiratory:? Coarse breath sounds bilaterally, decreased at bases, adequate air entry, no wheezing Cardiac: Irregularly irregular, rate controlled Abdomen:? Soft, nontender, obese, protuberant, hypoactive but present bowel sounds, midline incision with dressing in place Extremities:? Palpable pedal pulses, bilateral lower extremity edema Neuro:? Patient is more awake this morning, alert and oriented x3, able to answer questions and follow simple commands Skin:? Abdominal Dressing in place Psych:? Unable to assess at this time Objective Data Vital Signs Vital Signs: Vital Signs - 24 hr 01/25/25 09:57 01/25/25 10:00 01/25/25 10:00 Temperature 36.4 C L Pulse Rate 73 78 70 Respiratory Rate 23 H Blood Pressure 131/67 131/67 Pulse Oximetry 94 Oxygen Delivery Oxygen Flow Rate 01/25/25 10:00 01/25/25 10:15 01/25/25 10:40 Temperature Pulse Rate 69 65 69 Respiratory Rate Blood Pressure 132/70 122/71 Pulse Oximetry Oxygen Delivery Oxygen Flow Rate 01/25/25 10:40 01/25/25 11:05 01/25/25 11:10 Temperature Pulse Rate 69 59 L 59 L Respiratory Rate Blood Pressure 122/71 115/67 115/72 Pulse Oximetry Oxygen Delivery Oxygen Flow Rate 01/25/25 11:15 01/25/25 12:00 01/25/25 12:00 Temperature 37.0 C Pulse Rate 59 L 61 61 Respiratory Rate 22 H Blood Pressure 117/69 127/75 127/75 Pulse Oximetry 96 Oxygen Delivery Oxygen Flow Rate 01/25/25 12:00 01/25/25 14:00 01/25/25 14:00 Temperature Pulse Rate 61 71 60 Respiratory Rate Blood Pressure 131/73 Pulse Oximetry Oxygen Delivery Oxygen Flow Rate 01/25/25 14:00 01/25/25 16:00 01/25/25 16:00 Temperature 36.6 C Pulse Rate 62 64 56 L Respiratory Rate 20 Blood Pressure 131/73 139/83 Pulse Oximetry 92 Oxygen Delivery Oxygen Flow Rate 01/25/25 16:00 01/25/25 17:08 01/25/25 18:00 Temperature 36.6 C Pulse Rate 58 L 66 Respiratory Rate 17 Blood Pressure 137/75 143/81 H Pulse Oximetry 91 97 Oxygen Delivery Nasal Cannula Oxygen Flow Rate 2 01/25/25 18:00 01/25/25 18:00 01/25/25 19:57 Temperature 36.7 C Pulse Rate 76 66 Respiratory Rate 14 Blood Pressure 127/92 H Pulse Oximetry 96 91 Oxygen Delivery Nasal Cannula Oxygen Flow Rate 1 01/25/25 20:00 01/25/25 20:00 01/25/25 20:00 Temperature 36.7 C Pulse Rate 57 L 59 L 50 L Respiratory Rate 17 Blood Pressure 154/86 H 165/89 H Pulse Oximetry 92 Oxygen Delivery Oxygen Flow Rate 01/25/25 20:35 01/25/25 20:37 01/25/25 22:00 Temperature 36.7 C Pulse Rate 72 54 L Respiratory Rate 19 Blood Pressure 160/83 H Pulse Oximetry 96 91 Oxygen Delivery Nasal Cannula Oxygen Flow Rate 1 01/25/25 22:00 01/25/25 23:36 01/26/25 00:00 Temperature 36.7 C Pulse Rate 54 L 60 Respiratory Rate 20 Blood Pressure 155/77 H 163/79 H Pulse Oximetry 94 96 Oxygen Delivery Room Air Oxygen Flow Rate 01/26/25 00:00 01/26/25 00:00 01/26/25 02:00 Temperature Pulse Rate 60 57 L 56 L Respiratory Rate 20 Blood Pressure 170/84 H Pulse Oximetry 99 Oxygen Delivery Oxygen Flow Rate 01/26/25 02:00 01/26/25 04:00 01/26/25 04:00 Temperature 36.9 C Pulse Rate 67 72 68 Respiratory Rate 17 Blood Pressure 154/79 H Pulse Oximetry 96 Oxygen Delivery Oxygen Flow Rate 01/26/25 04:00 01/26/25 04:00 01/26/25 05:19 Temperature Pulse Rate 65 68 Respiratory Rate 17 Blood Pressure 155/91 H Pulse Oximetry 97 95 Oxygen Delivery Room Air Oxygen Flow Rate 01/26/25 06:00 01/26/25 08:00 01/26/25 08:00 Temperature 37.3 C Pulse Rate 68 67 67 Respiratory Rate 15 Blood Pressure 175/93 H Pulse Oximetry 97 Oxygen Delivery Oxygen Flow Rate Intake/Output Intake/Output: Intake & Output 01/23/25 01/24/25 01/25/25 01/26/25 23:59 23:59 23:59 23:59 Intake Total 1320.6 1203.3 2954.0 500 Output Total 2100 3350 2750 1200 Balance -779.4 -2146.7 204.0 -700 Meds/Results Medications: Active Medications Generic Name Dose Route Start Last Admin Trade Name Freq PRN Reason Stop Dose Admin Acetaminophen 650 mg 01/21/25 10:59 01/26/25 07:59 Acetaminophen Elixir 325 Mg/10.15 Ml Udc PO 650 mg Q6H PRN Administration Mild Pain (1-3) or Fever Al Hydrox/Mg Hydrox/Simethicone 30 ml 01/18/25 19:20 01/26/25 05:49 Mag Hydrox/Al Hydrox/Simeth 30 Ml Udc PO 30 ml Q8HR [facility] Administration Amlodipine Besylate 10 mg 01/25/25 18:00 01/25/25 17:35 Amlodipine Besylate 10 Mg Tablet FEED TUBE 10 mg QPM [facility] Administration Bisacodyl 10 mg 01/20/25 09:00 01/26/25 08:34 Bisacodyl 10 Mg Suppository RECTAL Not Given QAM AUG[facility]INE Clonidine HCl 1 patch 01/25/25 09:00 01/25/25 09:52 Clonidine 0.1 Mg/24 Hr Patch TRANSDERM 1 patch WEEKLY A[facility] Administration Dextrose 12.5 gm 01/18/25 15:51 Dextrose 50% 25 Gm/50 Ml Syringe IV PUSH PRN PRN Hypoglycemia Protocol Doxazosin Mesylate 8 mg 01/26/25 09:00 01/26/25 08:12 Doxazosin Mesylate 4 Mg Tablet PO 8 mg DAILY [facility] Administration Enoxaparin Sodium 40 mg 01/19/25 11:45 01/26/25 07:59 Enoxaparin 40 Mg/0.4 Ml Syringe SUB-Q 40 mg DAILY [facility] Administration Glucagon 1 mg 01/18/25 15:51 Glucagon For Inj 1 Mg Vial IM PRN PRN Hypoglycemia Protocol Glucose 15 gm 01/18/25 15:51 Glucose Oral Gel 15 Gm Of Glucse In 37.5 Gm Tube PO PRN PRN Hypoglycemia Protocol Hydralazine HCl 20 mg 01/22/25 10:25 01/26/25 04:00 Hydralazine Hcl 20 Mg/Ml Vial IV PUSH 20 mg Q4H PRN Administration Blood Pressure - High Piperacillin/Tazobactam/Dextrose 3.375 gm in 50 mls @ 100 mls/hr 01/17/25 02:00 01/26/25 08:02 Zosyn 3.375 Gm/Ns 50 Ml IVPB 01/26/25 14:29 100 mls/hr Q6H [facility] Administration Dextrose 1,000 mls @ 100 mls/hr 01/18/25 15:51 Dextrose 5% 1,000 Ml IVPB PRN PRN Hypoglycemia Protocol Nicardipine/Sodium Chloride 20 mg in 200 mls @ 0 mls/hr 01/22/25 10:25 01/26/25 06:00 Cardene 20 Mg/200 Ml Ns IV CONT 0 mg/hr .Q0M A[facility] 0 mls/hr Titration Protocol Dextrose 1,000 mls @ 50 mls/hr 01/24/25 11:38 Dextrose 10% IV CONT .Q20H PRN if PN is interrupted Multivitamins 1.25 ml/ 1,002.5 mls @ 40 mls/hr 01/24/25 14:00 01/25/25 13:58 Multivitamins 1.25 ml/ Amino IV CONT 40 mls/hr Acids/Electrolytes/Dextrose .Q24H [facility] Administration Protocol Fat Emulsion Intravenous 250 mls @ 20.833 mls/hr 01/24/25 14:00 01/26/25 04:03 Lipids 20% IVPB Infused Q24H [facility] Infusion Potassium Phosphate 20 mmol/ 256.6667 mls @ 64.167 mls/hr 01/26/25 09:00 Sodium Chloride IVPB 01/26/25 12:59 ONCE ONE Insulin Aspart 3 - 6 units 01/24/25 11:50 01/26/25 08:34 Insulin Aspart (*Bkc) 100 Units/Ml SUB-Q Not Given Q4H [facility] Protocol Insulin Glargine 15 units 01/25/25 09:35 01/26/25 08:13 Insulin Glargine (*Bkc) 100 Units/Ml SUB-Q 15 units QAM [facility]INE Administration Levothyroxine Sodium 25 mcg 01/24/25 06:30 01/26/25 05:50 Levothyroxine Sodium 25 Mcg Tablet PO 25 mcg DAILY@0630 [facility] Administration Lidocaine 1 patch 01/19/25 13:35 01/26/25 08:01 Lidocaine 5% Patch TRANSDERM 1 patch DAILY [facility] Administration Lisinopril 40 mg 01/25/25 09:30 01/26/25 08:02 Lisinopril 20 Mg Tablet PO 40 mg QAM [facility] Administration Melatonin 3 mg 01/19/25 22:39 01/19/25 23:16 Melatonin 3 Mg Tablet PO 3 mg HS PRN Administration Insomnia Metoclopramide HCl 10 mg 01/19/25 00:00 01/26/25 05:49 Metoclopramide Hcl Inj 10 Mg/2 Ml Vial IV PUSH 10 mg Q6HR [facility] Administration Metoprolol Tartrate 25 mg 01/25/25 21:00 01/26/25 08:02 Metoprolol Tartrate 25 Mg Tablet FEED TUBE 25 mg Q12HR [facility] Administration Ondansetron HCl 4 mg 01/17/25 19:07 01/17/25 22:44 Ondansetron Inj 4 Mg/2 Ml Vial IV PUSH 4 mg Q4H PRN Administration Nausea Pantoprazole Sodium 40 mg 01/17/25 22:30 01/26/25 08:02 Pantoprazole Sodium Iv 40 Mg Vial IV PUSH 40 mg Q12HR [facility] Administration Quetiapine Fumarate 25 mg 01/21/25 21:00 01/26/25 08:02 Quetiapine Fumarate 25 Mg Tablet PO 25 mg Q12HR [facility] Administration Sodium Chloride 20 ml 01/24/25 14:41 Central Line Flush IV PUSH PRN PRN after blood draws Sodium Chloride 10 ml 01/24/25 14:41 Central Line Flush IV PUSH PRN PRN with TPN bag changes Sodium Chloride 10 ml 01/24/25 22:00 01/26/25 05:50 Central Line Flush IV PUSH 10 ml Q8HR [facility] Administration Radiology Results: ITS Impressions Abdomen/Pelvis CT 01/17/25 18:07 IMPRESSION: Ascending aortic aneurysm measuring up to 5.6 cm. The descending thoracic aorta is mildly dilated to 3.1 cm. Consider nonemergent but timely outpatient CT angiography of the chest and appropriate referral for monitoring/potential intervention. Mild esophagitis/gastritis. Periesophageal lymphadenopathy. Hepatomegaly with steatosis. Mid small bowel obstruction, transition point in the left lateral abdomen. Small volume ascites. Bladder wall thickening, likely secondary to chronic outlet obstruction from prostatomegaly. Small Bowel X-Ray 01/18/25 15:02 IMPRESSION: 1. Small bowel obstruction. Chest X-Ray 01/24/25 14:53 IMPRESSION: Right PICC line with the tip overlying the right atrium. Cardiomegaly. Minimal opacification in the left lung base. Abdomen X-Ray 01/25/25 10:01 IMPRESSION: Significant gaseous distention of the stomach and several loops of proximal small bowel with additional findings suggesting fecal impaction, as detailed above. Labs Labs: Laboratory Results - last 24 hr 01/25/25 01/25/25 01/25/25 06:00 11:37 16:48 WBC RBC Hgb Hct MCV MCH MCHC RDW Plt Count MPV Immature Gran % (Auto) Neut % (Auto) Lymph % (Auto) [place] % (Auto) Eos % (Auto) Baso % (Auto) Lymph # (Auto) [place] # (Auto) Eos # (Auto) Baso # (Auto) Abs Immat Gran (auto) Absolute Neuts (auto) Absolute Nucleated RBC Nucleated RBC % Sodium Potassium Chloride Carbon Dioxide Anion Gap BUN Creatinine Estim Creat Clear Calc Estimated GFR Glucose POC Capillary Glucose 198 H 157 H Calcium Phosphorus Total Bilirubin AST ALT Alkaline Phosphatase Total Protein Albumin Triglycerides 232 H 01/25/25 01/25/25 01/26/25 20:34 23:56 05:51 WBC 7.9 RBC 4.90 Hgb 13.5 L Hct 44.6 MCV 91.0 MCH 27.6 MCHC 30.3 L RDW 14.2 Plt Count 214 MPV 9.8 Immature Gran % (Auto) 0.8 H Neut % (Auto) 69.7 Lymph % (Auto) 17.0 L [place] % (Auto) 8.2 Eos % (Auto) 4.0 Baso % (Auto) 0.3 Lymph # (Auto) 1.35 [place] # (Auto) 0.7 H Eos # (Auto) 0.3 Baso # (Auto) 0.0 Abs Immat Gran (auto) 0.06 H Absolute Neuts (auto) 5.5 Absolute Nucleated RBC 0.000 Nucleated RBC % 0.0 Sodium 151 H Potassium 3.4 Chloride 112 H Carbon Dioxide 31 H Anion Gap 8 BUN 38 H Creatinine 1.35 H Estim Creat Clear Calc 50 Estimated GFR 51 L Glucose 170 H POC Capillary Glucose 122 H 150 H Calcium 8.7 Phosphorus 2.3 L Total Bilirubin 0.8 AST 122 H ALT 189 H Alkaline Phosphatase 40 Total Protein 7.0 Albumin 3.6 Triglycerides 01/26/25 07:46 WBC RBC Hgb Hct MCV MCH MCHC RDW Plt Count MPV Immature Gran % (Auto) Neut % (Auto) Lymph % (Auto) [place] % (Auto) Eos % (Auto) Baso % (Auto) Lymph # (Auto) [place] # (Auto) Eos # (Auto) Baso # (Auto) Abs Immat Gran (auto) Absolute Neuts (auto) Absolute Nucleated RBC Nucleated RBC % Sodium Potassium Chloride Carbon Dioxide Anion Gap BUN Creatinine Estim Creat Clear Calc Estimated GFR Glucose POC Capillary Glucose 149 H Calcium Phosphorus Total Bilirubin AST ALT Alkaline Phosphatase Total Protein Albumin Triglycerides Quality VTE Prophylaxis VTE prophylaxis: mechanical ordered and pharmacologic ordered
[2025-01-26] MEDS: POTASSIUM PHOS,M-BASIC-D-BASIC 20 MMOL in SODIUM CHLORIDE 0.9% IV 250 ML 64.17 MMOL IVPB (09:23)
[2025-01-26] MEDS: ASPIRIN 325 MG TABLET FEED TUBE (09:23)
[2025-01-26] MEDS: BISACODYL 10 MG SUPPOSITORY RECTAL (10:24)
--- NOTE | 2025-01-26 11:02 | PCNFU ---
Nutrition Follow-Up Complete: Inadequate oral intake related to ileus as evidenced by NPO/CL day 6 goal: Meet estimated nutrition needs Patient will continue current goal. Pt current nutrition is TPN. Last recorded weight is 128.7 kg, stable. Bowel Motility: +BM report 01/25 Labs Reviewed:Glu 170, Cr 1.35, BUN 38, PO4 2.3, NA 151 Meds Noted:Seroquel, Lopressor, Lantus, Reglan, Protonix Skin: WNL Additional Notes: Patient remains on TPN at 40 ml/hr. Spoke with [employer] today, regarding diet orders. Plan is to try and upgrade diet to clear liquids. TPN remains at 40 ml/hr providing 1182 kcal and 48 gm protein. When advancing diet recommend advancing as tolerated per MD orders. Monitoring orders, diet advancement, weights, labs, plan of care Follow up every 3 days.
--- NOTE | 2025-01-26 11:25 | P.PN_ITS ---
Progress Note: A&P Assessment and Plan (1) SBO (small bowel obstruction): Code(s): K56.609 - Unspecified intestinal obstruction, unspecified as to partial versus complete obstruction Status: Acute Assessment and Plan: Resolved after exploratory laparotomy and abdominal adhesiolysis. (2) Adynamic ileus: Code(s): K56.0 - Paralytic ileus Status: Acute Assessment and Plan: Ileus is finally resolved. He had 2 bowel movements last evening. Can remove his NG tube and start him on clear liquids. Can transition oral medications as per hospitalist and [employer] contact [employer]. Can restart his systemic oral anticoagulation if needed as well. Subjective Date/time seen: 01/26/25 11:25 Interval history: Patient is doing well today. Sitting up in chair and is totally oriented. Had 2 large bowel movements last evening. Nasogastric tube output is not bilious today. He remains on TPN for his prolonged ileus. Heart rate blood pressure well controlled. Exam GI: Other: Abdomen is soft and minimally distended. Midline incision is healing well with danilo in place. No redness or drainage. Objective Data Vital Signs Vital Signs: Vital Signs - 24 hr 01/25/25 12:00 01/25/25 12:00 01/25/25 12:00 Temperature 37.0 C Pulse Rate 61 61 61 Respiratory Rate 22 H Blood Pressure 127/75 127/75 Pulse Oximetry 96 Oxygen Delivery Oxygen Flow Rate 01/25/25 14:00 01/25/25 14:00 01/25/25 14:00 Temperature 36.6 C Pulse Rate 71 60 62 Respiratory Rate 20 Blood Pressure 131/73 131/73 Pulse Oximetry 92 Oxygen Delivery Oxygen Flow Rate 01/25/25 16:00 01/25/25 16:00 01/25/25 16:00 Temperature 36.6 C Pulse Rate 64 56 L 58 L Respiratory Rate 17 Blood Pressure 139/83 137/75 Pulse Oximetry 91 Oxygen Delivery Oxygen Flow Rate 01/25/25 17:08 01/25/25 18:00 01/25/25 18:00 Temperature Pulse Rate 66 76 Respiratory Rate Blood Pressure 143/81 H Pulse Oximetry 97 Oxygen Delivery Nasal Cannula Oxygen Flow Rate 2 01/25/25 18:00 01/25/25 19:57 01/25/25 20:00 Temperature 36.7 C Pulse Rate 66 57 L Respiratory Rate 14 Blood Pressure 127/92 H Pulse Oximetry 96 91 Oxygen Delivery Nasal Cannula Oxygen Flow Rate 1 01/25/25 20:00 01/25/25 20:00 01/25/25 20:35 Temperature 36.7 C Pulse Rate 59 L 50 L Respiratory Rate 17 Blood Pressure 154/86 H 165/89 H Pulse Oximetry 92 96 Oxygen Delivery Nasal Cannula Oxygen Flow Rate 1 01/25/25 20:37 01/25/25 22:00 01/25/25 22:00 Temperature 36.7 C Pulse Rate 72 54 L 54 L Respiratory Rate 19 Blood Pressure 160/83 H 155/77 H Pulse Oximetry 91 Oxygen Delivery Oxygen Flow Rate 01/25/25 23:36 01/26/25 00:00 01/26/25 00:00 Temperature 36.7 C Pulse Rate 60 60 Respiratory Rate 20 Blood Pressure 163/79 H Pulse Oximetry 94 96 Oxygen Delivery Room Air Oxygen Flow Rate 01/26/25 00:00 01/26/25 02:00 01/26/25 02:00 Temperature Pulse Rate 57 L 56 L 67 Respiratory Rate 20 Blood Pressure 170/84 H Pulse Oximetry 99 Oxygen Delivery Oxygen Flow Rate 01/26/25 04:00 01/26/25 04:00 01/26/25 04:00 Temperature 36.9 C Pulse Rate 72 68 Respiratory Rate 17 Blood Pressure 154/79 H Pulse Oximetry 96 97 Oxygen Delivery Room Air Oxygen Flow Rate 01/26/25 04:00 01/26/25 05:19 01/26/25 06:00 Temperature Pulse Rate 65 68 68 Respiratory Rate 17 Blood Pressure 155/91 H Pulse Oximetry 95 Oxygen Delivery Oxygen Flow Rate 01/26/25 08:00 01/26/25 08:00 01/26/25 08:00 Temperature 37.3 C Pulse Rate 67 67 93 Respiratory Rate 15 Blood Pressure 175/93 H 126/67 Pulse Oximetry 97 Oxygen Delivery Oxygen Flow Rate 01/26/25 10:00 01/26/25 10:00 01/26/25 10:00 Temperature Pulse Rate 62 74 70 Respiratory Rate 16 Blood Pressure 152/83 H 152/83 H Pulse Oximetry 99 Oxygen Delivery Oxygen Flow Rate Intake/Output Intake/Output: Intake & Output 01/23/25 01/24/25 01/25/25 01/26/25 23:59 23:59 23:59 23:59 Intake Total 1320.6 1203.3 2954.0 638.3 Output Total 2100 3350 2750 1200 Balance -779.4 -2146.7 204.0 -561.7 Meds/Results Medications: Active Medications Generic Name Dose Route Start Last Admin Trade Name Freq PRN Reason Stop Dose Admin Acetaminophen 650 mg 01/21/25 10:59 01/26/25 07:59 Acetaminophen Elixir 325 Mg/10.15 Ml Udc PO 650 mg Q6H PRN Administration Mild Pain (1-3) or Fever Al Hydrox/Mg Hydrox/Simethicone 30 ml 01/18/25 19:20 01/26/25 05:49 Mag Hydrox/Al Hydrox/Simeth 30 Ml Udc PO 30 ml Q8HR [facility] Administration Amlodipine Besylate 10 mg 01/25/25 18:00 01/25/25 17:35 Amlodipine Besylate 10 Mg Tablet FEED TUBE 10 mg QPM [facility] Administration Aspirin 325 mg 01/26/25 09:05 01/26/25 09:23 Aspirin 325 Mg Tablet FEED TUBE 325 mg DAILY@0800 [facility] Administration Bisacodyl 10 mg 01/20/25 09:00 01/26/25 10:24 Bisacodyl 10 Mg Suppository RECTAL 10 mg QAM [facility] Administration Clonidine HCl 1 patch 01/25/25 09:00 01/25/25 09:52 Clonidine 0.1 Mg/24 Hr Patch TRANSDERM 1 patch WEEKLY [facility] Administration Dextrose 12.5 gm 01/18/25 15:51 Dextrose 50% 25 Gm/50 Ml Syringe IV PUSH PRN PRN Hypoglycemia Protocol Doxazosin Mesylate 8 mg 01/26/25 09:00 01/26/25 08:12 Doxazosin Mesylate 4 Mg Tablet PO 8 mg DAILY [facility] Administration Enoxaparin Sodium 40 mg 01/19/25 11:45 01/26/25 07:59 Enoxaparin 40 Mg/0.4 Ml Syringe SUB-Q 40 mg DAILY [facility] Administration Glucagon 1 mg 01/18/25 15:51 Glucagon For Inj 1 Mg Vial IM PRN PRN Hypoglycemia Protocol Glucose 15 gm 01/18/25 15:51 Glucose Oral Gel 15 Gm Of Glucse In 37.5 Gm Tube PO PRN PRN Hypoglycemia Protocol Hydralazine HCl 20 mg 01/22/25 10:25 01/26/25 04:00 Hydralazine Hcl 20 Mg/Ml Vial IV PUSH 20 mg Q4H PRN Administration Blood Pressure - High Piperacillin/Tazobactam/Dextrose 3.375 gm in 50 mls @ 100 mls/hr 01/17/25 02:00 01/26/25 08:32 Zosyn 3.375 Gm/Ns 50 Ml IVPB 01/26/25 14:29 Infused Q6H [facility] Infusion Dextrose 1,000 mls @ 100 mls/hr 01/18/25 15:51 Dextrose 5% 1,000 Ml IVPB PRN PRN Hypoglycemia Protocol Dextrose 1,000 mls @ 50 mls/hr 01/24/25 11:38 Dextrose 10% IV CONT .Q20H PRN if PN is interrupted Multivitamins 1.25 ml/ 1,002.5 mls @ 40 mls/hr 01/24/25 14:00 01/25/25 13:58 Multivitamins 1.25 ml/ Amino IV CONT 01/26/25 14:00 40 mls/hr Acids/Electrolytes/Dextrose .Q24H [facility] Administration Protocol Fat Emulsion Intravenous 250 mls @ 20.833 mls/hr 01/24/25 14:00 01/26/25 04 :03 Lipids 20% IVPB Infused Q24H [facility] Infusion Potassium Phosphate 20 mmol/ 256.6667 mls @ 64.167 mls/hr 01/26/25 09:00 01/26/25 09:23 Sodium Chloride IVPB 01/26/25 12:59 64.17 mls/hr ONCE ONE Administration Insulin Aspart 3 - 6 units 01/24/25 11:50 01/26/25 08:34 Insulin Aspart (*Bkc) 100 Units/Ml SUB-Q Not Given Q4H [facility] Protocol Insulin Glargine 15 units 01/25/25 09:35 01/26/25 08:13 Insulin Glargine (*Bkc) 100 Units/Ml SUB-Q 15 units QAM [facility] Administration Levothyroxine Sodium 25 mcg 01/24/25 06:30 01/26/25 05:50 Levothyroxine Sodium 25 Mcg Tablet PO 25 mcg DAILY@0630 [facility] Administration Lidocaine 1 patch 01/19/25 13:35 01/26/25 08:01 Lidocaine 5% Patch TRANSDERM 1 patch DAILY [facility] Administration Lisinopril 40 mg 01/25/25 09:30 01/26/25 08:02 Lisinopril 20 Mg Tablet PO 40 mg QAM [facility] Administration Melatonin 3 mg 01/19/25 22:39 01/19/25 23:16 Melatonin 3 Mg Tablet PO 3 mg HS PRN Administration Insomnia Metoclopramide HCl 10 mg 01/19/25 00:00 01/26/25 05:49 Metoclopramide Hcl Inj 10 Mg/2 Ml Vial IV PUSH 10 mg Q6HR [facility] Administration Metoprolol Tartrate 25 mg 01/25/25 21:00 01/26/25 08:02 Metoprolol Tartrate 25 Mg Tablet FEED TUBE 25 mg Q12HR [facility] Administration Ondansetron HCl 4 mg 01/17/25 19:07 01/17/25 22:44 Ondansetron Inj 4 Mg/2 Ml Vial IV PUSH 4 mg Q4H PRN Administration Nausea Pantoprazole Sodium 40 mg 01/17/25 22:30 01/26/25 08:02 Pantoprazole Sodium Iv 40 Mg Vial IV PUSH 40 mg Q12HR [facility] Administration Quetiapine Fumarate 25 mg 01/21/25 21:00 01/26/25 08:02 Quetiapine Fumarate 25 Mg Tablet PO 25 mg Q12HR [facility] Administration Sodium Chloride 20 ml 01/24/25 14:41 Central Line Flush IV PUSH PRN PRN after blood draws Sodium Chloride 10 ml 01/24/25 14:41 Central Line Flush IV PUSH PRN PRN with TPN bag changes Sodium Chloride 10 ml 01/24/25 22:00 01/26/25 05:50 Central Line Flush IV PUSH 10 ml Q8HR [facility] Administration Radiology Results: ITS Impressions Abdomen/Pelvis CT 01/17/25 18:07 IMPRESSION: Ascending aortic aneurysm measuring up to 5.6 cm. The descending thoracic aorta is mildly dilated to 3.1 cm. Consider nonemergent but timely outpatient CT angiography of the chest and appropriate referral for monitoring/potential intervention. Mild esophagitis/gastritis. Periesophageal lymphadenopathy. Hepatomegaly with steatosis. Mid small bowel obstruction, transition point in the left lateral abdomen. Small volume ascites. Bladder wall thickening, likely secondary to chronic outlet obstruction from prostatomegaly. Small Bowel X-Ray 01/18/25 15:02 IMPRESSION: 1. Small bowel obstruction. Chest X-Ray 01/24/25 14:53 IMPRESSION: Right PICC line with the tip overlying the right atrium. Cardiomegaly. Minimal opacification in the left lung base. Abdomen X-Ray 01/25/25 10:01 IMPRESSION: Significant gaseous distention of the stomach and several loops of proximal smal l bowel with additional findings suggesting fecal impaction, as detailed above. Labs Labs: Laboratory Results - last 24 hr 01/25/25 01/25/25 01/25/25 11:37 16:48 20:34 WBC RBC Hgb Hct MCV MCH MCHC RDW Plt Count MPV Immature Gran % (Auto) Neut % (Auto) Lymph % (Auto) [place] % (Auto) Eos % (Auto) Baso % (Auto) Lymph # (Auto) [place] # (Auto) Eos # (Auto) Baso # (Auto) Abs Immat Gran (auto) Absolute Neuts (auto) Absolute Nucleated RBC Nucleated RBC % Sodium Potassium Chloride Carbon Dioxide Anion Gap BUN Creatinine Estim Creat Clear Calc Estimated GFR Glucose POC Capillary Glucose 198 H 157 H 122 H Calcium Phosphorus Total Bilirubin AST ALT Alkaline Phosphatase Total Protein Albumin 01/25/25 01/26/25 01/26/25 23:56 05:51 07:46 WBC 7.9 RBC 4.90 Hgb 13.5 L Hct 44.6 MCV 91.0 MCH 27.6 MCHC 30.3 L RDW 14.2 Plt Count 214 MPV 9.8 Immature Gran % (Auto) 0.8 H Neut % (Auto) 69.7 Lymph % (Auto) 17.0 L [place] % (Auto) 8.2 Eos % (Auto) 4.0 Baso % (Auto) 0.3 Lymph # (Auto) 1.35 [place] # (Auto) 0.7 H Eos # (Auto) 0.3 Baso # (Auto) 0.0 Abs Immat Gran (auto) 0.06 H Absolute Neuts (auto) 5.5 Absolute Nucleated RBC 0.000 Nucleated RBC % 0.0 Sodium 151 H Potassium 3.4 Chloride 112 H Carbon Dioxide 31 H Anion Gap 8 BUN 38 H Creatinine 1.35 H Estim Creat Clear Calc 50 Estimated GFR 51 L Glucose 170 H POC Capillary Glucose 150 H 149 H Calcium 8.7 Phosphorus 2.3 L Total Bilirubin 0.8 AST 122 H ALT 189 H Alkaline Phosphatase 40 Total Protein 7.0 Albumin 3.6
[2025-01-26 12:07] LABS: Glucose Point of Care 126 mg/dl (65-105)
[2025-01-26 17:08] LABS: Glucose Point of Care 140 mg/dl (65-105)
[2025-01-26] MEDS: amLODIPine BESYLATE 10 MG TABLET FEED TUBE (17:42)
--- NOTE | 2025-01-26 18:52 | P.PNIM_ITS ---
Progress Note: A&P Assessment and Plan (1) SBO (small bowel obstruction): Code(s): K56.609 - Unspecified intestinal obstruction, unspecified as to partial versus complete obstruction Status: Acute Assessment and Plan: 02/15: Patient was admitted for abdominal pain, small-bowel obstruction on abdominal CT scan -Surgery was consulted, patient was taken for surgery on 01/18/2025 for high- grade small-bowel obstruction secondary to abdominal adhesions, status post exploratory laparotomy with abdominal adhesiolysis. -continue Zosyn per surgery -Patient has developed ileus. Patient has NG tube in place which is on continue suction. bowel rest, NG tube decompression, -patient had a bowel movement. ? Trial of p.o. diet -management per General surgery -continue reglan, Dulcolax suppository has been ordered per surgery -discussed with general surgeon -01/24 started TPN 01/22: Obstructive series indicated Ileus 02/14: CT scan of the abdomen and pelvis showed mid small-bowel obstruction with transition point in the left lateral abdomen, small volume ascites, hepatomegaly with steatosis, bladder wall thickening likely secondary to chronic outlet obstruction prostatomegaly. Ascending aortic aneurysm measuring 5.6 cm, descending thoracic aorta is mildly dilated to 3.1 cm mild esophagitis/gastritis, periesophageal lymphadenopathy. (2) Hypertension: Qualifiers: Hypertension type: primary hypertension Qualified Code(s): I10 - Essential (primary) hypertension Code(s): I10 - Essential (primary) hypertension Status: Acute Assessment and Plan: Patient currently off nicardipine infusion with improvement since he has abdominal aortic aneurysm. Off Cardizem infusion as patient is in sinus rhythm. Continue p.o. metoprolol , Norvasc, lisinopril Increase doxazosin to 8 mg mg Clonidine transdermal patch considering unreliable p.o. absorption (3) Diabetes mellitus with renal manifestation: Code(s): E11.29 - Type 2 diabetes mellitus with other diabetic kidney complication Status: Acute Assessment and Plan: Continue Accu-Cheks and sliding scale insulin Continue Lantus (4) BPH (benign prostatic hyperplasia): Code(s): N40.0 - Benign prostatic hyperplasia without lower urinary tract symptoms Status: Acute Assessment and Plan: Mckinney catheter in place, patient had adequate urine output (5) Atrial fibrillation with RVR: Code(s): I48.91 - Unspecified atrial fibrillation Status: Acute Assessment and Plan: Converted to sinus rhythm. Discontinue Cardizem infusion Continue p.o. metoprolol Systemic anticoagulation is on hold and resumption as per General surgery Aspirin (6) Acute respiratory failure: Code(s): J96.00 - Acute respiratory failure, unspecified whether with hypoxia or hypercapnia Status: Acute Assessment and Plan: Currently on nasal cannula. Likely atelectasis. Continue incentive spirometry. PT OT (7) Delirium: Code(s): R41.0 - Disorientation, unspecified Status: Acute Assessment and Plan: Off Precedex infusion. Improved. Much more alert and oriented. Restraints have been discontinued Sitter at bedside Continue Seroquel (8) Electrolyte abnormality: Code(s): E87.8 - Other disorders of electrolyte and fluid balance, not elsewhere classified Status: Acute Assessment and Plan: Replace low potassium and phos D5 water for hypernatremia (9) Elevated serum creatinine: Code(s): R79.89 - Other specified abnormal findings of blood chemistry Status: Acute Assessment and Plan: Patient was given Lasix yesterday 2 doses and there is elevation of creatinine is CO2 suggestive of contraction alkalosis Hold diuretics and will give some fluids today. Monitor urine output electrolytes and creatinine Plan patient was found to have High-grade small-bowel obstruction secondary to abdominal adhesions was seen by surgery service had exploratory laparotomy, abdominal adhesiolysis on 01/18, however patient became confused removed his IV, and was wondering in the hospital, patient was brought back to the room, patient was aggressive, transferred to ICU for sedation with Precedex, patient is now off Precedex, more alert and eating ice, stats does pass some gas, today patient talking stats feels better, his son is present in the room, patient is clinically improving. on 01/24 patient had been NPO for last seven day, surgeon has started patient has PICC line on TPN, currently patient is sleeping, patient is clinically improving, will transfer patient out of ICU to IMU. will continue until patient bowl function return, patient is seen by surgery service and dye reel operator helper and further recommendation to follow. DVT prophylaxis: Enoxaparin subcutaneous Stress ulcer prophylaxis: Protonix IV q.12 hours Nutrition: NG tube management as above, npo Code Status: Full code Switched to nasal cannula, incentive spirometry PT OT Subjective Date/time seen: 01/26/25 18:52 Interval history: Patient admitted for treatment of SBO and plan for exploratory laparotomy. Patient still hypertensive will increase IV metoprolol to 5 mg scheduled and schedule his IV hydralazine. Patient refusing NG tube but denies ABD pain, distention slightly improved. Patient reported flatulence but still no BM. H&P-Narrative He presents with a few hours' history of central abdominal pain; it is localized; rated 10 in intensity, aggravated by meals/drinks, alleviated by fasting; associated with bilious but non-bloody emesis, malaise, anorexia, chills and rigors. His last BM was days ago; he denies chest pain, dizziness, LOC, flank pain, dysuria, hematuria or [place]. patient was found to have High-grade small-bowel obstruction secondary to abdominal adhesions was seen by surgery service had exploratory laparotomy, abdominal adhesiolysis on 01/18, however patient became confused removed his IV, and was wondering in the hospital, patient was brought back to the room, patient was aggressive, transferred to ICU for sedation with Precedex, patient is now off Precedex, more alert and eating ice, stats does pass some gas, today patient talking stats feels better, his son is present in the room, patient is clinically improving. on 01/24 patient had been NPO for last seven day, surgeon has started patient has PICC line on TPN, currently patient is sleeping, patient is clinically improving, will transfer patient out of ICU to IMU. will continue until patient bowl function return, patient is seen by surgery service and dye reel operator helper and further recommendation to follow. Review of Systems Review of Systems: ROS unobtainable: Yes unobtainable due to mental status Exam Narrative: Patient is comfortable, NAD HEENT: NG tube in place LUNGS:CTA ABD: distended Lower extremities: no edema SKIN: nonjaundiced Neuro: Sedated Objective Data Vital Signs Vital Signs: Vital Signs - 24 hr 01/25/25 19:57 01/25/25 20:00 01/25/25 20:00 Temperature 36.7 C Pulse Rate 57 L 59 L Respiratory Rate 17 Blood Pressure 154/86 H Pulse Oximetry 91 92 Oxygen Delivery Nasal Cannula Oxygen Flow Rate 1 01/25/25 20:00 01/25/25 20:35 01/25/25 20:37 Temperature Pulse Rate 50 L 72 Respiratory Rate Blood Pressure 165/89 H Pulse Oximetry 96 Oxygen Delivery Nasal Cannula Oxygen Flow Rate 1 01/25/25 22:00 01/25/25 22:00 01/25/25 23:36 Temperature 36.7 C Pulse Rate 54 L 54 L Respiratory Rate 19 Blood Pressure 160/83 H 155/77 H Pulse Oximetry 91 94 Oxygen Delivery Room Air Oxygen Flow Rate 01/26/25 00:00 01/26/25 00:00 01/26/25 00:00 Temperature 36.7 C Pulse Rate 60 60 57 L Respiratory Rate 20 Blood Pressure 163/79 H Pulse Oximetry 96 Oxygen Delivery Oxygen Flow Rate 01/26/25 02:00 01/26/25 02:00 01/26/25 04:00 Temperature Pulse Rate 56 L 67 72 Respiratory Rate 20 Blood Pressure 170/84 H Pulse Oximetry 99 Oxygen Delivery Oxygen Flow Rate 01/26/25 04:00 01/26/25 04:00 01/26/25 04:00 Temperature 36.9 C Pulse Rate 68 65 Respiratory Rate 17 Blood Pressure 154/79 H Pulse Oximetry 96 97 Oxygen Delivery Room Air Oxygen Flow Rate 01/26/25 05:19 01/26/25 06:00 01/26/25 08:00 Temperature Pulse Rate 68 68 67 Respiratory Rate 17 Blood Pressure 155/91 H Pulse Oximetry 95 Oxygen Delivery Oxygen Flow Rate 01/26/25 08:00 01/26/25 08:00 01/26/25 10:00 Temperature 37.3 C Pulse Rate 67 93 62 Respiratory Rate 15 16 Blood Pressure 175/93 H 126/67 152/83 H Pulse Oximetry 97 99 Oxygen Delivery Oxygen Flow Rate 01/26/25 10:00 01/26/25 10:00 01/26/25 12:00 Temperature Pulse Rate 74 70 80 Respiratory Rate Blood Pressure 152/83 H Pulse Oximetry Oxygen Delivery Oxygen Flow Rate 01/26/25 12:00 01/26/25 12:00 01/26/25 14:00 Temperature 37.1 C Pulse Rate 69 83 Respiratory Rate 15 Blood Pressure 106/74 Pulse Oximetry 95 Oxygen Delivery Room Air Oxygen Flow Rate 01/26/25 14:00 01/26/25 15:44 01/26/25 16:00 Temperature 37.1 C Pulse Rate 87 76 Respiratory Rate 19 17 Blood Pressure 132/72 144/86 H Pulse Oximetry 96 97 Oxygen Delivery Room Air Oxygen Flow Rate 01/26/25 16:00 01/26/25 18:00 Temperature Pulse Rate 77 70 Respiratory Rate Blood Pressure Pulse Oximetry Oxygen Delivery Oxygen Flow Rate Intake/Output Intake/Output: Intake & Output 01/23/25 01/24/25 01/25/25 01/26/25 23:59 23:59 23:59 23:59 Intake Total 1320.6 1203.3 2954.0 2091.6 Output Total 2100 3350 2750 2050 Balance -779.4 -2146.7 204.0 41.6 Meds/Results Medications: Active Medications Generic Name Dose Route Start Last Admin Trade Name Freq PRN Reason Stop Dose Admin Acetaminophen 650 mg 01/21/25 10:59 01/26/25 07:59 Acetaminophen Elixir 325 Mg/10.15 Ml Udc PO 650 mg Q6H PRN Administration Mild Pain (1-3) or Fever Amlodipine Besylate 10 mg 01/25/25 18:00 01/26/25 17:42 Amlodipine Besylate 10 Mg Tablet FEED TUBE 10 mg QPM [facility] Administration Aspirin 325 mg 01/26/25 09:05 01/26/25 09:23 Aspirin 325 Mg Tablet FEED TUBE 325 mg DAILY@0800 [facility] Administration Clonidine HCl 1 patch 01/25/25 09:00 01/25/25 09:52 Clonidine 0.1 Mg/24 Hr Patch TRANSDERM 1 patch WEEKLY [facility] Administration Dextrose 12.5 gm 01/18/25 15:51 Dextrose 50% 25 Gm/50 Ml Syringe IV PUSH PRN PRN Hypoglycemia Protocol Doxazosin Mesylate 8 mg 01/26/25 09:00 01/26/25 08:12 Doxazosin Mesylate 4 Mg Tablet PO 8 mg DAILY [facility] Administration Enoxaparin Sodium 40 mg 01/19/25 11:45 01/26/25 07:59 Enoxaparin 40 Mg/0.4 Ml Syringe SUB-Q 40 mg DAILY [facility] Administration Glucagon 1 mg 01/18/25 15:51 Glucagon For Inj 1 Mg Vial IM PRN PRN Hypoglycemia Protocol Glucose 15 gm 01/18/25 15:51 Glucose Oral Gel 15 Gm Of Glucse In 37.5 Gm Tube PO PRN PRN Hypoglycemia Protocol Hydralazine HCl 20 mg 01/22/25 10:25 01/26/25 04:00 Hydralazine Hcl 20 Mg/Ml Vial IV PUSH 20 mg Q4H PRN Administration Blood Pressure - High Dextrose 1,000 mls @ 100 mls/hr 01/18/25 15:51 Dextrose 5% 1,000 Ml IVPB PRN PRN Hypoglycemia Protocol Dextrose 1,000 mls @ 50 mls/hr 01/24/25 11:38 Dextrose 10% IV CONT .Q20H PRN if PN is interrupted Fat Emulsion Intravenous 250 mls @ 20.833 mls/hr 01/24/25 14:00 01/26/25 13:48 Lipids 20% IVPB Not Given Q24H [facility] Insulin Aspart 3 - 6 units 01/24/25 11:50 01/26/25 17:16 Insulin Aspart (*Bkc) 100 Units/Ml SUB-Q Not Given Q4H [facility] Protocol Insulin Glargine 15 units 01/25/25 09:35 01/26/25 08:13 Insulin Glargine (*Bkc) 100 Units/Ml SUB-Q 15 units QAM [facility] Administration Levothyroxine Sodium 25 mcg 01/24/25 06:30 01/26/25 05:50 Levothyroxine Sodium 25 Mcg Tablet PO 25 mcg DAILY@0630 [facility] Administration Lidocaine 1 patch 01/19/25 13:35 01/26/25 08:01 Lidocaine 5% Patch TRANSDERM 1 patch DAILY [facility] Administration Lisinopril 40 mg 01/25/25 09:30 01/26/25 08:02 Lisinopril 20 Mg Tablet PO 40 mg QAM [facility] Administration Melatonin 3 mg 01/19/25 22:39 01/19/25 23:16 Melatonin 3 Mg Tablet PO 3 mg HS PRN Administration Insomnia Metoprolol Tartrate 25 mg 01/25/25 21:00 01/26/25 08:02 Metoprolol Tartrate 25 Mg Tablet FEED TUBE 25 mg Q12HR [facility] Administration Ondansetron HCl 4 mg 01/17/25 19:07 01/17/25 22:44 Ondansetron Inj 4 Mg/2 Ml Vial IV PUSH 4 mg Q4H PRN Administration Nausea Pantoprazole Sodium 40 mg 01/17/25 22:30 01/26/25 08:02 Pantoprazole Sodium Iv 40 Mg Vial IV PUSH 40 mg Q12HR [facility] Administration Quetiapine Fumarate 25 mg 01/21/25 21:00 01/26/25 08:02 Quetiapine Fumarate 25 Mg Tablet PO 25 mg Q12HR [facility] Administration Sodium Chloride 20 ml 01/24/25 14:41 Central Line Flush IV PUSH PRN PRN after blood draws Sodium Chloride 10 ml 01/24/25 14:41 Central Line Flush IV PUSH PRN PRN with TPN bag changes Sodium Chloride 10 ml 01/24/25 22:00 01/26/25 13:39 Central Line Flush IV PUSH 10 ml Q8HR [facility] Administration Radiology Results: ITS Impressions Abdomen/Pelvis CT 01/17/25 18:07 IMPRESSION: Ascending aortic aneurysm measuring up to 5.6 cm. The descending thoracic aorta is mildly dilated to 3.1 cm. Consider nonemergent but timely outpatient CT angiography of the chest and appropriate referral for monitoring/potential intervention. Mild esophagitis/gastritis. Periesophageal lymphadenopathy. Hepatomegaly with steatosis. Mid small bowel obstruction, transition point in the left lateral abdomen. Small volume ascites. Bladder wall thickening, likely secondary to chronic outlet obstruction from prostatomegaly. Small Bowel X-Ray 01/18/25 15:02 IMPRESSION: 1. Small bowel obstruction. Chest X-Ray 01/24/25 14:53 IMPRESSION: Right PICC line with the tip overlying the right atrium. Cardiomegaly. Minimal opacification in the left lung base. Abdomen X-Ray 01/25/25 10:01 IMPRESSION: Significant gaseous distention of the stomach and several loops of proximal small bowel with additional findings suggesting fecal impaction, as detailed above. Labs Labs: Laboratory Results - last 24 hr 01/25/25 01/25/25 01/26/25 20:34 23:56 05:51 WBC 7.9 RBC 4.90 Hgb 13.5 L Hct 44.6 MCV 91.0 MCH 27.6 MCHC 30.3 L RDW 14.2 Plt Count 214 MPV 9.8 Immature Gran % (Auto) 0.8 H Neut % (Auto) 69.7 Lymph % (Auto) 17.0 L [place] % (Auto) 8.2 Eos % (Auto) 4.0 Baso % (Auto) 0.3 Lymph # (Auto) 1.35 [place] # (Auto) 0.7 H Eos # (Auto) 0.3 Baso # (Auto) 0.0 Abs Immat Gran (auto) 0.06 H Absolute Neuts (auto) 5.5 Absolute Nucleated RBC 0.000 Nucleated RBC % 0.0 Sodium 151 H Potassium 3.4 Chloride 112 H Carbon Dioxide 31 H Anion Gap 8 BUN 38 H Creatinine 1.35 H Estim Creat Clear Calc 50 Estimated GFR 51 L Glucose 170 H POC Capillary Glucose 122 H 150 H Calcium 8.7 Phosphorus 2.3 L Total Bilirubin 0.8 AST 122 H ALT 189 H Alkaline Phosphatase 40 Total Protein 7.0 Albumin 3.6 01/26/25 01/26/25 01/26/25 07:46 12:04 16:37 WBC RBC Hgb Hct MCV MCH MCHC RDW Plt Count MPV Immature Gran % (Auto) Neut % (Auto) Lymph % (Auto) [place] % (Auto) Eos % (Auto) Baso % (Auto) Lymph # (Auto) [place] # (Auto) Eos # (Auto) Baso # (Auto) Abs Immat Gran (auto) Absolute Neuts (auto) Absolute Nucleated RBC Nucleated RBC % Sodium Potassium Chloride Carbon Dioxide Anion Gap BUN Creatinine Estim Creat Clear Calc Estimated GFR Glucose POC Capillary Glucose 149 H 126 H 140 H Calcium Phosphorus Total Bilirubin AST ALT Alkaline Phosphatase Total Protein Albumin
[2025-01-26] MEDS: ONDANSETRON INJ 4 MG/2 ML VIAL IV PUSH (22:03)
[2025-01-27] VITALS (14 sets, daily range): BP systolic 77–141; BP diastolic 41–81; PULSE 68–99; RESP 18–25; TEMP 36.4–37.4; O2SAT 93–100
[2025-01-27] MEDS: LACTATED RINGERS 1,000 ML 999 ML IV CONT ×2 (01:14→10:49)
[2025-01-27 04:53] LABS: Basophils Percent Auto 0.3 % (0.2-1.2); Eosinophils Absolute Auto 0.2 K/mm3 (0-0.3); Eosinophils Percent Auto 1.8 % (0-4.4); Hematocrit 41.5 % (42.0-52.0); Hemoglobin 12.3 g/dL (14.0-18.0); Immature Granulocyte Absolute 0.05 K/mm3 (0.00-0.031); Immature Granulocyte Percent A 0.5 % (0-0.5); Lymphocytes Absolute Auto 1.11 K/mm3 (0.9-3.2); Lymphocytes Percent Auto 11.6 % (18.3-44.2); Mean Corpuscular HGB Conc 29.6 g/dl (32-36); Mean Corpuscular Hemoglobin 27.4 pg (26-34); Mean Corpuscular Volume 92.4 fl (80-100); Mean Platelet Volume 10.1 fl (7.4-10.4); Monocytes Absolute Auto 0.8 K/mm3 (0.1-0.6); Monocytes Percent Auto 7.8 % (2.6-8.5); Neutrophils Absolute Auto 7.5 K/mm3 (1.3-6.7); Platelet Count Result 203 k/mm3 (150-375); Red Blood Count 4.49 M/mm3 (4.6-6.20); Red Cell Distribution Width 14.2 % (11.5-14.5); White Blood Count 9.6 K/mm3 (4.5-10.0)
[2025-01-27 05:10] LABS: Alanine Aminotransferase 174 U/L (6-50); Albumin Level 3.5 g/dL (3.5-5.1); Alkaline Phosphatase 36 U/L (38-126); Anion Gap 13 mmol/L (4-12); Aspartate Amino Transferase 92 U/L (17-59); Bilirubin,Total 0.6 mg/dL (0.2-1.3); Blood Urea Nitrogen 44 mg/dL (9-20); Calcium 8.5 mg/dL (8.4-10.2); Carbon Dioxide 26 mmol/L (22-30); Chloride 110 mmol/L (98-107); Estimated CRCL calculation 31 ml/min; Estimated Glomerular Filt Rate 29; Glucose 121 mg/dL (65-110); Phosphorus 6.4 mg/dL (2.5-4.5); Potassium 3.9 mmol/L (3.4-5.0); Sodium 149 mmol/L (137-145)
[2025-01-27] MEDS: CENTRAL LINE FLUSH 10 ML IV PUSH ×3 (06:24→20:30)
[2025-01-27] MEDS: LEVOTHYROXINE SODIUM 25 MCG TABLET PO ×2 (06:24→10:51)
[2025-01-27 06:38] LABS: Glucose Point of Care 107 mg/dl (65-105)
[2025-01-27 07:31] LABS: Triglycerides 234 mg/dL (<150)
--- NOTE | 2025-01-27 08:54 | P.PN_ITS ---
Progress Note: A&P Assessment and Plan (1) Ascending aortic aneurysm: Qualifiers: Presence of rupture: without rupture Qualified Code(s): I71.21 - Aneurysm of the ascending aorta, without rupture Code(s): I71.21 - Aneurysm of the ascending aorta, without rupture Status: Chronic Assessment and Plan: Stable. Continue close monitor his blood pressure. (2) SBO (small bowel obstruction): Code(s): K56.609 - Unspecified intestinal obstruction, unspecified as to partial versus complete obstruction Status: Acute Assessment and Plan: Resolved. Not having bowel movements. NG tube to be removed today. We will advance him to full liquids. (3) Adynamic ileus: Code(s): K56.0 - Paralytic ileus Status: Acute Assessment and Plan: Resolved. (4) Chronic kidney disease, stage 3 (moderate): Code(s): N18.3 - Chronic kidney disease, stage 3 (moderate) Status: Chronic Assessment and Plan: Creatinine increased to 2.2 today. Likely due to hypovolemia from iatrogenic reasons. Will give off IV fluid bolus today. He can drink ad tawanda. Subjective Date/time seen: 01/27/25 08:54 Interval history: Patient doing well this morning. Sitting up in chair. Completely oriented. Still has nasogastric tube in place after being transferred out of the intensive care unit to the IMU. He was given a clear liquid diet but this saw get sucked out through the NG tube. He no longer has IV fluids running there. His creatinine has increased to 2.2 today. Likely due to hypovolemia due to having all of his liquids aspirated through the NG tube and stopping his TPN. White blood count is normal. Vital signs are stable. He continues to have bowel movements. Exam GI: Other: Abdomen is soft and minimally distended.. Obese. Midline incision has danilo in place. There is no redness or drainage. Psych: Affect: normal affect (No anxiety or confusion.) Objective Data Vital Signs Vital Signs: Vital Signs - 24 hr 01/26/25 10:01/26/25 10:01/26/25 10:00 Temperature Pulse Rate 62 74 70 Respiratory Rate 16 Blood Pressure 152/83 H 152/83 H Pulse Oximetry 99 Oxygen Delivery Fraction of Inspired Oxygen 01/26/25 12:00 01/26/25 12:01/26/25 12:00 Temperature 37.1 C Pulse Rate 80 69 Respiratory Rate 15 Blood Pressure 106/74 Pulse Oximetry 95 Oxygen Delivery Room Air Fraction of Inspired Oxygen 01/26/25 14:00 01/26/25 14:00 01/26/25 15:44 Temperature Pulse Rate 83 87 Respiratory Rate 19 Blood Pressure 132/72 Pulse Oximetry 96 Oxygen Delivery Room Air Fraction of Inspired Oxygen 01/26/25 16:00 01/26/25 16:00 01/26/25 18:00 Temperature 37.1 C Pulse Rate 76 77 70 Respiratory Rate 17 Blood Pressure 144/86 H Pulse Oximetry 97 Oxygen Delivery Fraction of Inspired Oxygen 01/26/25 19:00 01/26/25 19:50 01/26/25 20:00 Temperature 36.3 C L Pulse Rate 68 70 Respiratory Rate 18 18 Blood Pressure 130/62 Pulse Oximetry 97 96 96 Oxygen Delivery Room Air Room Air Fraction of Inspired Oxygen 21 01/26/25 20:00 01/26/25 20:00 01/26/25 20:44 Temperature 36.7 C Pulse Rate 70 81 80 Respiratory Rate 18 Blood Pressure 155/89 H Pulse Oximetry 100 Oxygen Delivery Fraction of Inspired Oxygen 01/26/25 22:00 01/27/25 00:00 01/27/25 00:00 Temperature 36.7 C Pulse Rate 80 78 85 Respiratory Rate 18 18 Blood Pressure 77/41 L Pulse Oximetry 100 100 Oxygen Delivery Room Air Fraction of Inspired Oxygen 01/27/25 00:00 01/27/25 04:00 01/27/25 04:00 Temperature Pulse Rate 85 87 87 Respiratory Rate 18 Blood Pressure Pulse Oximetry 100 Oxygen Delivery Room Air Fraction of Inspired Oxygen 01/27/25 04:00 01/27/25 06:00 01/27/25 08:00 Temperature 36.4 C L 36.9 C Pulse Rate 80 88 87 Respiratory Rate 19 20 Blood Pressure 83/56 L 141/80 H Pulse Oximetry 98 94 Oxygen Delivery Fraction of Inspired Oxygen Intake/Output Intake/Output: Intake & Output 01/24/25 01/25/25 01/26/25 01/27/25 23:59 23:59 23:59 23:59 Intake Total 1203.3 2954.0 2091.6 1220 Output Total 3350 2750 2300 2500 Balance -2146.7 204.0 -208.4 -1280 Meds/Results Medications: Active Medications Generic Name Dose Route Start Last Admin Trade Name Freq PRN Reason Stop Dose Admin Acetaminophen 650 mg 01/26/25 23:32 Acetaminophen Elixir 325 Mg/10.15 Ml Udc PO Q4H PRN Mild Pain (1-3) or Fever Amlodipine Besylate 10 mg 01/25/25 18:00 01/26/25 17:42 Amlodipine Besylate 10 Mg Tablet FEED TUBE 10 mg QPM [facility] Administration Aspirin 325 mg 01/26/25 09:05 01/26/25 09:23 Aspirin 325 Mg Tablet FEED TUBE 325 mg DAILY@0800 [facility] Administration Clonidine HCl 1 patch 01/25/25 09:00 01/25/25 09:52 Clonidine 0.1 Mg/24 Hr Patch TRANSDERM 1 patch WEEKLY [facility] Administration Dextrose 12.5 gm 01/18/25 15:51 Dextrose 50% 25 Gm/50 Ml Syringe IV PUSH PRN PRN Hypoglycemia Protocol Doxazosin Mesylate 8 mg 01/26/25 09:00 01/26/25 08:12 Doxazosin Mesylate 4 Mg Tablet PO 8 mg DAILY [facility] Administration Enoxaparin Sodium 40 mg 01/19/25 11:45 01/26/25 07:59 Enoxaparin 40 Mg/0.4 Ml Syringe SUB-Q 40 mg DAILY [facility] Administration Glucagon 1 mg 01/18/25 15:51 Glucagon For Inj 1 Mg Vial IM PRN PRN Hypoglycemia Protocol Glucose 15 gm 01/18/25 15:51 Glucose Oral Gel 15 Gm Of Glucse In 37.5 Gm Tube PO PRN PRN Hypoglycemia Protocol Hydralazine HCl 20 mg 01/22/25 10:25 01/26/25 04:00 Hydralazine Hcl 20 Mg/Ml Vial IV PUSH 20 mg Q4H PRN Administration Blood Pressure - High Dextrose 1,000 mls @ 100 mls/hr 01/18/25 15:51 Dextrose 5% 1,000 Ml IVPB PRN PRN Hypoglycemia Protocol Dextrose 1,000 mls @ 50 mls/hr 01/24/25 11:38 Dextrose 10% IV CONT .Q20H PRN if PN is interrupted Fat Emulsion Intravenous 250 mls @ 20.833 mls/hr 01/24/25 14:00 01/26/25 13:48 Lipids 20% IVPB Not Given Q24H [facility] Insulin Aspart 3 - 6 units 01/27/25 06:00 01/27/25 06:23 Insulin Aspart (*Bkc) 100 Units/Ml SUB-Q Not Given Q6HR [facility] Protocol Insulin Glargine 15 units 01/25/25 09:35 01/26/25 08:13 Insulin Glargine (*Bkc) 100 Units/Ml SUB-Q 15 units QAM [facility] Administration Levothyroxine Sodium 25 mcg 01/24/25 06:30 01/27/25 06:24 Levothyroxine Sodium 25 Mcg Tablet PO 25 mcg DAILY@0630 [facility] Administration Lidocaine 1 patch 01/19/25 13:35 01/26/25 08:01 Lidocaine 5% Patch TRANSDERM 1 patch DAILY [facility] Administration Lisinopril 40 mg 01/25/25 09:30 01/26/25 08:02 Lisinopril 20 Mg Tablet PO 40 mg QAM [facility] Administration Melatonin 3 mg 01/19/25 22:39 01/19/25 23:16 Melatonin 3 Mg Tablet PO 3 mg HS PRN Administration Insomnia Metoprolol Tartrate 25 mg 01/25/25 21:00 01/26/25 20:44 Metoprolol Tartrate 25 Mg Tablet FEED TUBE 25 mg Q12HR [facility] Administration Morphine Sulfate 4 mg 01/26/25 23:52 Morphine Sulfate (*Crx) 4 Mg/Ml Inj IV PUSH Q4H PRN Pain Rated 7-10 Ondansetron HCl 4 mg 01/17/25 19:07 01/26/25 22:03 Ondansetron Inj 4 Mg/2 Ml Vial IV PUSH 4 mg Q4H PRN Administration Nausea Pantoprazole Sodium 40 mg 01/17/25 22:30 01/26/25 20:44 Pantoprazole Sodium Iv 40 Mg Vial IV PUSH 40 mg Q12HR [facility] Administration Quetiapine Fumarate 25 mg 01/21/25 21:00 01/26/25 20:44 Quetiapine Fumarate 25 Mg Tablet PO 25 mg Q12HR [facility] Administration Sodium Chloride 20 ml 01/24/25 14:41 Central Line Flush IV PUSH PRN PRN after blood draws Sodium Chloride 10 ml 01/24/25 14:41 Central Line Flush IV PUSH PRN PRN with TPN bag changes Sodium Chloride 10 ml 01/24/25 22:00 01/27/25 06:24 Central Line Flush IV PUSH 10 ml Q8HR [facility] Administration Radiology Results: ITS Impressions Abdomen/Pelvis CT 01/17/25 18:07 IMPRESSION: Ascending aortic aneurysm measuring up to 5.6 cm. The descending thoracic aorta is mildly dilated to 3.1 cm. Consider nonemergent but timely outpatient CT angiography of the chest and appropriate referral for monitoring/potential intervention. Mild esophagitis/gastritis. Periesophageal lymphadenopathy. Hepatomegaly with steatosis. Mid small bowel obstruction, transition point in the left lateral abdomen. Small volume ascites. Bladder wall thickening, likely secondary to chronic outlet obstruction from prostatomegaly. Small Bowel X-Ray 01/18/25 15:02 IMPRESSION: 1. Small bowel obstruction. Chest X-Ray 01/24/25 14:53 IMPRESSION: Right PICC line with the tip overlying the right atrium. Cardiomegaly. Minimal opacification in the left lung base. Abdomen X-Ray 01/27/25 06:38 IMPRESSION: 1. Dilated small bowel, likely adynamic ileus. 2. Nasogastric tube tip in the stomach. Labs Labs: Laboratory Results - last 24 hr 01/26/25 01/26/25 01/27/25 12:04 16:37 04:36 WBC 9.6 RBC 4.49 L Hgb 12.3 L Hct 41.5 L MCV 92.4 MCH 27.4 MCHC 29.6 L RDW 14.2 Plt Count 203 MPV 10.1 Immature Gran % (Auto) 0.5 Neut % (Auto) 78.0 H Lymph % (Auto) 11.6 L [place] % (Auto) 7.8 Eos % (Auto) 1.8 Baso % (Auto) 0.3 Lymph # (Auto) 1.11 [place] # (Auto) 0.8 H Eos # (Auto) 0.2 Baso # (Auto) 0.0 Abs Immat Gran (auto) 0.05 H Absolute Neuts (auto) 7.5 H Absolute Nucleated RBC 0.000 Nucleated RBC % 0.0 Sodium 149 H Potassium 3.9 Chloride 110 H Carbon Dioxide 26 Anion Gap 13 H BUN 44 H Creatinine 2.22 H Estim Creat Clear Calc 31 Estimated GFR 29 L Glucose 121 H POC Capillary Glucose 126 H 140 H Calcium 8.5 Phosphorus 6.4 H Total Bilirubin 0.6 AST 92 H ALT 174 H Alkaline Phosphatase 36 L Total Protein 6.0 L Albumin 3.5 Triglycerides 234 H 01/27/25 06:26 WBC RBC Hgb Hct MCV MCH MCHC RDW Plt Count MPV Immature Gran % (Auto) Neut % (Auto) Lymph % (Auto) [place] % (Auto) Eos % (Auto) Baso % (Auto) Lymph # (Auto) [place] # (Auto) Eos # (Auto) Baso # (Auto) Abs Immat Gran (auto) Absolute Neuts (auto) Absolute Nucleated RBC Nucleated RBC % Sodium Potassium Chloride Carbon Dioxide Anion Gap BUN Creatinine Estim Creat Clear Calc Estimated GFR Glucose POC Capillary Glucose 107 H Calcium Phosphorus Total Bilirubin AST ALT Alkaline Phosphatase Total Protein Albumin Triglycerides
[2025-01-27 09:12] LABS: Glucose Point of Care 105 mg/dl (65-105)
[2025-01-27] MEDS: DOXAZOSIN MESYLATE 4 MG TABLET 8 MG PO (10:50)
[2025-01-27] MEDS: ENOXAPARIN 40 MG/0.4 ML SYRINGE SUB-Q (10:50)
[2025-01-27] MEDS: lisinopriL 20 MG TABLET 40 MG PO (10:51)
[2025-01-27] MEDS: LIDOCAINE 5% PATCH 1 PATCH TRANSDERM (10:51)
[2025-01-27] MEDS: QUEtiapine FUMARATE 25 MG TABLET PO ×2 (10:51→20:30)
[2025-01-27] MEDS: INSULIN GLARGINE (*BKC) 100 UNITS/ML 15 UNITS SUB-Q (10:52)
[2025-01-27 12:08] LABS: Glucose Point of Care 138 mg/dl (65-105)
--- NOTE | 2025-01-27 15:14 | PM.IMPN ---
Progress Note: A&P Assessment and Plan (1) SBO (small bowel obstruction): Code(s): K56.609 - Unspecified intestinal obstruction, unspecified as to partial versus complete obstruction Status: Acute Assessment and Plan: 02/15: Patient was admitted for abdominal pain, small-bowel obstruction on abdominal CT scan -Surgery was consulted, patient was taken for surgery on 01/18/2025 for high-grade small-bowel obstruction secondary to abdominal adhesions, status post exploratory laparotomy with abdominal adhesiolysis. -continue Zosyn per surgery -Patient has developed ileus. Patient has NG tube in place which is on continue suction. bowel rest, NG tube decompression, -patient had a bowel movement. ? Trial of p.o. diet -management per General surgery -continue reglan, Dulcolax suppository has been ordered per surgery -discussed with general surgeon -01/24 started TPN 01/22: Obstructive series indicated Ileus 02/14: CT scan of the abdomen and pelvis showed mid small-bowel obstruction with transition point in the left lateral abdomen, small volume ascites, hepatomegaly with steatosis, bladder wall thickening likely secondary to chronic outlet obstruction prostatomegaly. Ascending aortic aneurysm measuring 5.6 cm, descending thoracic aorta is mildly dilated to 3.1 cm mild esophagitis/gastritis, periesophageal lymphadenopathy. (2) Hypertension: Qualifiers: Hypertension type: primary hypertension Qualified Code(s): I10 - Essential (primary) hypertension Code(s): I10 - Essential (primary) hypertension Status: Acute Assessment and Plan: Patient currently off nicardipine infusion with improvement since he has abdominal aortic aneurysm. Off Cardizem infusion as patient is in sinus rhythm. Continue p.o. metoprolol , Norvasc, lisinopril Increase doxazosin to 8 mg mg Clonidine transdermal patch considering unreliable p.o. absorption (3) Diabetes mellitus with renal manifestation: Code(s): E11.29 - Type 2 diabetes mellitus with other diabetic kidney complication Status: Acute Assessment and Plan: Continue Accu-Cheks and sliding scale insulin Continue Lantus (4) BPH (benign prostatic hyperplasia): Code(s): N40.0 - Benign prostatic hyperplasia without lower urinary tract symptoms Status: Acute Assessment and Plan: Mckinney catheter in place, patient had adequate urine output (5) Atrial fibrillation with RVR: Code(s): I48.91 - Unspecified atrial fibrillation Status: Acute Assessment and Plan: Converted to sinus rhythm. Discontinue Cardizem infusion Continue p.o. metoprolol Systemic anticoagulation is on hold and resumption as per General surgery Aspirin (6) Acute respiratory failure: Code(s): J96.00 - Acute respiratory failure, unspecified whether with hypoxia or hypercapnia Status: Acute Assessment and Plan: Currently on nasal cannula. Likely atelectasis. Continue incentive spirometry. PT OT (7) Delirium: Code(s): R41.0 - Disorientation, unspecified Status: Acute Assessment and Plan: Off Precedex infusion. Improved. Much more alert and oriented. Restraints have been discontinued Sitter at bedside Continue Seroquel (8) Electrolyte abnormality: Code(s): E87.8 - Other disorders of electrolyte and fluid balance, not elsewhere classified Status: Acute Assessment and Plan: Replace low potassium and phos D5 water for hypernatremia (9) Elevated serum creatinine: Code(s): R79.89 - Other specified abnormal findings of blood chemistry Status: Acute Assessment and Plan: Patient was given Lasix yesterday 2 doses and there is elevation of creatinine is CO2 suggestive of contraction alkalosis Hold diuretics and will give some fluids today. Monitor urine output electrolytes and creatinine Plan patient was found to have High-grade small-bowel obstruction secondary to abdominal adhesions was seen by surgery service had exploratory laparotomy, abdominal adhesiolysis on 01/18, however patient became confused removed his IV, and was wondering in the hospital, patient was brought back to the room, patient was aggressive, transferred to ICU for sedation with Precedex, patient is now off Precedex, more alert and eating ice, stats does pass some gas, today patient talking stats feels better, his son is present in the room, patient is clinically improving. on 01/24 patient had been NPO for last seven day, surgeon has started patient has PICC line on TPN, last night patient had two large BM and he is now in IMU, NG tube is out and eating ice cream, still confused sitter is with him, will monitor further recommendation to follow. DVT prophylaxis: Enoxaparin subcutaneous Stress ulcer prophylaxis: Protonix IV q.12 hours Nutrition: NG tube management as above, npo Code Status: Full code Switched to nasal cannula, incentive spirometry PT OT Subjective Date/time seen: 01/27/25 15:14 Interval history: Patient admitted for treatment of SBO and plan for exploratory laparotomy. Patient still hypertensive will increase IV metoprolol to 5 mg scheduled and schedule his IV hydralazine. Patient refusing NG tube but denies ABD pain, distention slightly improved. Patient reported flatulence but still no BM. H&P-Narrative He presents with a few hours' history of central abdominal pain; it is localized; rated 10 in intensity, aggravated by meals/drinks, alleviated by fasting; associated with bilious but non-bloody emesis, malaise, anorexia, chills and rigors. His last BM was days ago; he denies chest pain, dizziness, LOC, flank pain, dysuria, hematuria or [place]. patient was found to have High-grade small-bowel obstruction secondary to abdominal adhesions was seen by surgery service had exploratory laparotomy, abdominal adhesiolysis on 01/18, however patient became confused removed his IV, and was wondering in the hospital, patient was brought back to the room, patient was aggressive, transferred to ICU for sedation with Precedex, patient is now off Precedex, more alert and eating ice, stats does pass some gas, today patient talking stats feels better, his son is present in the room, patient is clinically improving. on 01/24 patient had been NPO for last seven day, surgeon has started patient has PICC line on TPN, last night patient had two large BM and he is now in IMU, NG tube is out and eating ice cream, still confused sitter is with him, will monitor further recommendation to follow. Review of Systems Review of Systems: All systems reviewed & are unremarkable except as noted in HPI and below (HPI) Exam Narrative: Patient is comfortable, NAD HEENT: clear LUNGS:CTA ABD: distended Lower extremities: no edema SKIN: nonjaundiced Neuro: Sedated Objective Data Vital Signs Vital Signs: Vital Signs - 24 hr 01/26/25 15:44 01/26/25 16:00 01/26/25 16:00 Temperature 37.1 C Pulse Rate 76 77 Respiratory Rate 17 Blood Pressure 144/86 H Pulse Oximetry 97 Oxygen Delivery Room Air Fraction of Inspired Oxygen 01/26/25 18:00 01/26/25 19:00 01/26/25 19:50 Temperature 36.3 C L Pulse Rate 70 68 Respiratory Rate 18 Blood Pressure 130/62 Pulse Oximetry 97 96 Oxygen Delivery Room Air Fraction of Inspired Oxygen 21 01/26/25 20:00 01/26/25 20:00 01/26/25 20:00 Temperature 36.7 C Pulse Rate 70 70 81 Respiratory Rate 18 18 Blood Pressure 155/89 H Pulse Oximetry 96 100 Oxygen Delivery Room Air Fraction of Inspired Oxygen 01/26/25 20:44 01/26/25 22:00 01/27/25 00:00 Temperature 36.7 C Pulse Rate 80 80 78 Respiratory Rate 18 Blood Pressure 77/41 L Pulse Oximetry 100 Oxygen Delivery Fraction of Inspired Oxygen 01/27/25 00:00 01/27/25 00:00 01/27/25 04:00 Temperature Pulse Rate 85 85 87 Respiratory Rate 18 Blood Pressure Pulse Oximetry 100 Oxygen Delivery Room Air Fraction of Inspired Oxygen 01/27/25 04:00 01/27/25 04:00 01/27/25 06:00 Temperature 36.4 C L Pulse Rate 87 80 88 Respiratory Rate 18 19 Blood Pressure 83/56 L Pulse Oximetry 100 98 Oxygen Delivery Room Air Fraction of Inspired Oxygen 01/27/25 08:00 01/27/25 08:00 01/27/25 11:54 Temperature 36.9 C 36.4 C L Pulse Rate 87 94 Respiratory Rate 20 20 Blood Pressure 141/80 H 125/81 Pulse Oximetry 94 95 Oxygen Delivery Room Air Fraction of Inspired Oxygen 01/27/25 12:00 Temperature Pulse Rate Respiratory Rate Blood Pressure Pulse Oximetry Oxygen Delivery Room Air Fraction of Inspired Oxygen Intake/Output Intake/Output: Intake & Output 01/24/25 01/25/25 01/26/25 01/27/25 23:59 23:59 23:59 23:59 Intake Total 1203.3 2954.0 2091.6 2220 Output Total 3350 2750 2300 2500 Balance -2146.7 204.0 -208.4 -280 Meds/Results Medications: Active Medications Generic Name Dose Route Start Last Admin Trade Name Freq PRN Reason Stop Dose Admin Acetaminophen 650 mg 01/26/25 23:32 Acetaminophen Elixir 325 Mg/10.15 Ml Udc PO Q4H PRN Mild Pain (1-3) or Fever Hydrocodone Bitart/Acetaminophen 1 tab 01/27/25 09:05 Hydrocodone/Acetaminophen (*Crx) 5-325 Mg Tablet PO Q4H PRN Pain Rated 4-6 Amlodipine Besylate 10 mg 01/27/25 18:00 Amlodipine Besylate 10 Mg Tablet BY MOUTH QPM [facility] Aspirin 325 mg 01/28/25 08:00 Aspirin 325 Mg Tablet BY MOUTH DAILY@0800 [facility] Clonidine HCl 1 patch 01/25/25 09:00 01/25/25 09:52 Clonidine 0.1 Mg/24 Hr Patch TRANSDERM 1 patch WEEKLY [facility] Administration Dextrose 12.5 gm 01/18/25 15:51 Dextrose 50% 25 Gm/50 Ml Syringe IV PUSH PRN PRN Hypoglycemia Protocol Doxazosin Mesylate 8 mg 01/26/25 09:00 01/27/25 10:50 Doxazosin Mesylate 4 Mg Tablet PO 8 mg DAILY [facility] Administration Enoxaparin Sodium 40 mg 01/19/25 11:45 01/27/25 10:50 Enoxaparin 40 Mg/0.4 Ml Syringe SUB-Q 40 mg DAILY [facility] Administration Glucagon 1 mg 01/18/25 15:51 Glucagon For Inj 1 Mg Vial IM PRN PRN Hypoglycemia Protocol Glucose 15 gm 01/18/25 15:51 Glucose Oral Gel 15 Gm Of Glucse In 37.5 Gm Tube PO PRN PRN Hypoglycemia Protocol Hydralazine HCl 20 mg 01/22/25 10:25 01/26/25 04:00 Hydralazine Hcl 20 Mg/Ml Vial IV PUSH 20 mg Q4H PRN Administration Blood Pressure - High Dextrose 1,000 mls @ 100 mls/hr 01/18/25 15:51 Dextrose 5% 1,000 Ml IVPB PRN PRN Hypoglycemia Protocol Dextrose 1,000 mls @ 50 mls/hr 01/24/25 11:38 Dextrose 10% IV CONT .Q20H PRN if PN is interrupted Insulin Aspart 3 - 6 units 01/27/25 06:00 01/27/25 11:46 Insulin Aspart (*Bkc) 100 Units/Ml SUB-Q Not Given Q6HR [facility] Protocol Insulin Glargine 15 units 01/25/25 09:35 01/27/25 10:52 Insulin Glargine (*Bkc) 100 Units/Ml SUB-Q 15 units QAM [facility] Administration Levothyroxine Sodium 25 mcg 01/24/25 06:30 01/27/25 10:51 Levothyroxine Sodium 25 Mcg Tablet PO 25 mcg DAILY@0630 [facility] Administration Lidocaine 1 patch 01/19/25 13:35 01/27/25 10:51 Lidocaine 5% Patch TRANSDERM 1 patch DAILY [facility] Administration Lisinopril 40 mg 01/25/25 09:30 01/27/25 10:51 Lisinopril 20 Mg Tablet PO 40 mg QAM [facility] Administration Melatonin 3 mg 01/19/25 22:39 01/19/25 23:16 Melatonin 3 Mg Tablet PO 3 mg HS PRN Administration Insomnia Metoprolol Tartrate 25 mg 01/27/25 21:00 Metoprolol Tartrate 25 Mg Tablet BY MOUTH Q12HR [facility] Morphine Sulfate 4 mg 01/26/25 23:52 Morphine Sulfate (*Crx) 4 Mg/Ml Inj IV PUSH Q4H PRN Pain Rated 7-10 Ondansetron HCl 4 mg 01/17/25 19:07 01/26/25 22:03 Ondansetron Inj 4 Mg/2 Ml Vial IV PUSH 4 mg Q4H PRN Administration Nausea Oxycodone HCl 5 mg 01/27/25 09:05 Oxycodone Hcl (*Crx) 5 Mg Tab Ir PO Q4H PRN Pain Rated 7-10 Pantoprazole Sodium 40 mg 01/28/25 09:00 Pantoprazole 40 Mg Tablet PO QAM [facility] Quetiapine Fumarate 25 mg 01/21/25 21:00 01/27/25 10:51 Quetiapine Fumarate 25 Mg Tablet PO 25 mg Q12HR [facility] Administration Sodium Chloride 20 ml 01/24/25 14:41 Central Line Flush IV PUSH PRN PRN after blood draws Sodium Chloride 10 ml 01/24/25 14:41 Central Line Flush IV PUSH PRN PRN with TPN bag changes Sodium Chloride 10 ml 01/24/25 22:00 01/27/25 14:31 Central Line Flush IV PUSH 10 ml Q8HR [facility] Administration Radiology Results: ITS Impressions Abdomen/Pelvis CT 01/17/25 18:07 IMPRESSION: Ascending aortic aneurysm measuring up to 5.6 cm. The descending thoracic aorta is mildly dilated to 3.1 cm. Consider nonemergent but timely outpatient CT angiography of the chest and appropriate referral for monitoring/potential intervention. Mild esophagitis/gastritis. Periesophageal lymphadenopathy. Hepatomegaly with steatosis. Mid small bowel obstruction, transition point in the left lateral abdomen. Small volume ascites. Bladder wall thickening, likely secondary to chronic outlet obstruction from prostatomegaly. Small Bowel X-Ray 01/18/25 15:02 IMPRESSION: 1. Small bowel obstruction. Chest X-Ray 01/24/25 14:53 IMPRESSION: Right PICC line with the tip overlying the right atrium. Cardiomegaly. Minimal opacification in the left lung base. Abdomen X-Ray 01/27/25 06:38 IMPRESSION: 1. Dilated small bowel, likely adynamic ileus. 2. Nasogastric tube tip in the stomach. Labs Labs: Laboratory Results - last 24 hr 01/26/25 01/27/25 01/27/25 16:37 04:36 06:26 WBC 9.6 RBC 4.49 L Hgb 12.3 L Hct 41.5 L MCV 92.4 MCH 27.4 MCHC 29.6 L RDW 14.2 Plt Count 203 MPV 10.1 Immature Gran % (Auto) 0.5 Neut % (Auto) 78.0 H Lymph % (Auto) 11.6 L [place] % (Auto) 7.8 Eos % (Auto) 1.8 Baso % (Auto) 0.3 Lymph # (Auto) 1.11 [place] # (Auto) 0.8 H Eos # (Auto) 0.2 Baso # (Auto) 0.0 Abs Immat Gran (auto) 0.05 H Absolute Neuts (auto) 7.5 H Absolute Nucleated RBC 0.000 Nucleated RBC % 0.0 Sodium 149 H Potassium 3.9 Chloride 110 H Carbon Dioxide 26 Anion Gap 13 H BUN 44 H Creatinine 2.22 H Estim Creat Clear Calc 31 Estimated GFR 29 L Glucose 121 H POC Capillary Glucose 140 H 107 H Calcium 8.5 Phosphorus 6.4 H Total Bilirubin 0.6 AST 92 H ALT 174 H Alkaline Phosphatase 36 L Total Protein 6.0 L Albumin 3.5 Triglycerides 234 H 01/27/25 01/27/25 07:38 11:32 WBC RBC Hgb Hct MCV MCH MCHC RDW Plt Count MPV Immature Gran % (Auto) Neut % (Auto) Lymph % (Auto) [place] % (Auto) Eos % (Auto) Baso % (Auto) Lymph # (Auto) [place] # (Auto) Eos # (Auto) Baso # (Auto) Abs Immat Gran (auto) Absolute Neuts (auto) Absolute Nucleated RBC Nucleated RBC % Sodium Potassium Chloride Carbon Dioxide Anion Gap BUN Creatinine Estim Creat Clear Calc Estimated GFR Glucose POC Capillary Glucose 105 138 H Calcium Phosphorus Total Bilirubin AST ALT Alkaline Phosphatase Total Protein Albumin Triglycerides Quality VTE Prophylaxis VTE prophylaxis: mechanical ordered and pharmacologic ordered
[2025-01-27 16:37] LABS: Glucose Point of Care 159 mg/dl (65-105)
[2025-01-27] MEDS: amLODIPine BESYLATE 10 MG TABLET BY MOUTH (17:05)
[2025-01-27] MEDS: METOPROLOL TARTRATE 25 MG TABLET BY MOUTH (20:30)
[2025-01-27 20:38] LABS: Glucose Point of Care 119 mg/dl (65-105)
[2025-01-28] VITALS (16 sets, daily range): BP systolic 99–140; BP diastolic 52–81; PULSE 64–91; RESP 18–24; TEMP 36.4–37.1; O2SAT 93–97
--- NOTE | 2025-01-28 03:02 | PC.NURSE ---
Daylight Savings Time For Daylight Savings Time Ending in the Fall - Clocks are moved back. For Daylight Savings Time Beginning in the Spring - Clocks are moved ahead. For [facility], the time of change occurs at 0200 hrs. Time is taken from the electrical prospecting observer. This entry on the patient's chart recognizes the change in time reflected during documentation. Example: 2 entries for vital signs may be charted for 0200 hrs.
[2025-01-28] MEDS: CENTRAL LINE FLUSH 10 ML IV PUSH ×3 (04:27→20:34)
[2025-01-28 05:01] LABS: Basophils Percent Auto 0.3 % (0.2-1.2); Eosinophils Absolute Auto 0.2 K/mm3 (0-0.3); Eosinophils Percent Auto 3.3 % (0-4.4); Hematocrit 38.1 % (42.0-52.0); Hemoglobin 11.5 g/dL (14.0-18.0); Immature Granulocyte Absolute 0.05 K/mm3 (0.00-0.031); Immature Granulocyte Percent A 0.7 % (0-0.5); Lymphocytes Absolute Auto 1.47 K/mm3 (0.9-3.2); Mean Corpuscular HGB Conc 30.2 g/dl (32-36); Mean Corpuscular Hemoglobin 27.6 pg (26-34); Mean Corpuscular Volume 91.6 fl (80-100); Mean Platelet Volume 10.5 fl (7.4-10.4); Monocytes Absolute Auto 0.6 K/mm3 (0.1-0.6); Monocytes Percent Auto 8.2 % (2.6-8.5); Neutrophils Percent Auto 67.5 % (45.5-73.1); Platelet Count Result 177 k/mm3 (150-375); Red Blood Count 4.16 M/mm3 (4.6-6.20); Red Cell Distribution Width 14.3 % (11.5-14.5); White Blood Count 7.4 K/mm3 (4.5-10.0)
[2025-01-28 05:06] LABS: Anion Gap 11 mmol/L (4-12); Blood Urea Nitrogen 52 mg/dL (9-20); Calcium 8.3 mg/dL (8.4-10.2); Carbon Dioxide 25 mmol/L (22-30); Chloride 107 mmol/L (98-107); Estimated CRCL calculation 25 ml/min; Estimated Glomerular Filt Rate 22; Glucose 141 mg/dL (65-110); Magnesium 2.5 mg/dL (1.6-2.3); Potassium 3.5 mmol/L (3.4-5.0); Sodium 143 mmol/L (137-145)
[2025-01-28 07:59] LABS: Glucose Point of Care 112 mg/dl (65-105)
[2025-01-28] MEDS: LIDOCAINE 5% PATCH 1 PATCH TRANSDERM (09:34)
[2025-01-28] MEDS: ASPIRIN 325 MG TABLET BY MOUTH (09:35)
[2025-01-28] MEDS: QUEtiapine FUMARATE 25 MG TABLET PO ×2 (09:35→20:33)
[2025-01-28] MEDS: lisinopriL 20 MG TABLET 40 MG PO (09:35)
[2025-01-28] MEDS: DOXAZOSIN MESYLATE 4 MG TABLET 8 MG PO (09:35)
[2025-01-28] MEDS: PANTOPRAZOLE 40 MG TABLET PO (09:36)
[2025-01-28] MEDS: ENOXAPARIN 40 MG/0.4 ML SYRINGE SUB-Q (09:36)
[2025-01-28] MEDS: METOPROLOL TARTRATE 25 MG TABLET BY MOUTH ×2 (09:36→20:33)
[2025-01-28] MEDS: INSULIN GLARGINE (*BKC) 100 UNITS/ML 15 UNITS SUB-Q (09:37)
--- NOTE | 2025-01-28 11:41 | PM.PNGS ---
Progress Note: A&P Assessment and Plan (1) SBO (small bowel obstruction): Code(s): K56.609 - Unspecified intestinal obstruction, unspecified as to partial versus complete obstruction Status: Acute Assessment and Plan: Advance to soft diet. Monitor for recurrent vomiting. (2) Adynamic ileus: Code(s): K56.0 - Paralytic ileus Status: Acute Assessment and Plan: Resolved. (3) Ascending aortic aneurysm: Qualifiers: Presence of rupture: without rupture Qualified Code(s): I71.21 - Aneurysm of the ascending aorta, without rupture Code(s): I71.21 - Aneurysm of the ascending aorta, without rupture Status: Chronic Assessment and Plan: Stable. Continue close monitor his blood pressure. (4) Chronic kidney disease, stage 3 (moderate): Code(s): N18.3 - Chronic kidney disease, stage 3 (moderate) Status: Chronic Assessment and Plan: Creatinine increased to 2.2 today. Likely due to hypovolemia from iatrogenic reasons. Will give off IV fluid bolus today. He can drink ad tawanda. Subjective Subjective Date/Time Seen: 01/28/25 11:41 Interval history: Tolerating full liquids. Bowels moving. Denies Nausea/vomiting. Exam GI: Other: Abdomen is soft and minimally distended.. Obese. Midline incision has danilo in place. There is no redness or drainage. Psych: Affect: normal affect (No anxiety or confusion.) Objective Data Vital Signs Vital Signs: Vital Signs - 24 hr 01/27/25 11:54 01/27/25 12:00 01/27/25 12:00 Temperature 97.5 F L Pulse Rate 94 99 Respiratory Rate 20 Blood Pressure 125/81 Pulse Oximetry 95 95 Oxygen Delivery Room Air Fraction of Inspired Oxygen 01/27/25 14:00 01/27/25 15:23 01/27/25 16:00 Temperature 99.3 F Pulse Rate 80 76 Respiratory Rate 25 H Blood Pressure 121/65 Pulse Oximetry 93 95 Oxygen Delivery Room Air Fraction of Inspired Oxygen 01/27/25 16:00 01/27/25 18:00 01/27/25 20:00 Temperature 98.5 F Pulse Rate 95 82 80 Respiratory Rate 18 Blood Pressure 92/54 L Pulse Oximetry 93 Oxygen Delivery Fraction of Inspired Oxygen 01/27/25 20:00 01/27/25 20:00 01/27/25 20:30 Temperature Pulse Rate 86 86 84 Respiratory Rate 18 Blood Pressure Pulse Oximetry 93 Oxygen Delivery Room Air Fraction of Inspired Oxygen 21 01/27/25 22:00 01/28/25 00:00 01/28/25 00:00 Temperature 97.9 F Pulse Rate 78 89 86 Respiratory Rate 18 18 Blood Pressure 109/56 L Pulse Oximetry 93 93 Oxygen Delivery Room Air Fraction of Inspired Oxygen 21 01/28/25 00:00 01/28/25 01:59 01/28/25 04:00 Temperature Pulse Rate 86 88 91 Respiratory Rate 18 Blood Pressure Pulse Oximetry 93 Oxygen Delivery Room Air Fraction of Inspired Oxygen 21 01/28/25 04:00 01/28/25 04:00 01/28/25 06:00 Temperature 97.9 F Pulse Rate 91 65 64 Respiratory Rate 20 Blood Pressure 99/52 L Pulse Oximetry 96 Oxygen Delivery Fraction of Inspired Oxygen 01/28/25 08:00 01/28/25 08:00 01/28/25 09:36 Temperature 97.9 F Pulse Rate 68 68 70 Respiratory Rate 20 Blood Pressure 116/68 Pulse Oximetry 97 97 Oxygen Delivery Room Air Fraction of Inspired Oxygen Intake/Output Intake/Output: Intake & Output 01/25/25 01/26/25 01/27/25 01/29/25 23:59 23:59 23:59 00:59 Intake Total 2954.0 2091.6 2770 550 Output Total 2750 2300 2500 Balance 204.0 -208.4 270 550 Meds/Results Medications: Active Medications Generic Name Dose Route Start Last Admin Trade Name Freq PRN Reason Stop Dose Admin Acetaminophen 650 mg 01/26/25 23:32 Acetaminophen Elixir 325 Mg/10.15 Ml Udc PO Q4H PRN Mild Pain (1-3) or Fever Hydrocodone Bitart/Acetaminophen 1 tab 01/27/25 09:05 Hydrocodone/Acetaminophen (*Crx) 5-325 Mg Tablet PO Q4H PRN Pain Rated 4-6 Amlodipine Besylate 10 mg 01/27/25 18:00 01/27/25 17:05 Amlodipine Besylate 10 Mg Tablet BY MOUTH 10 mg QPM AUGUSTINE Administration Aspirin 325 mg 01/28/25 08:00 01/28/25 09:35 Aspirin 325 Mg Tablet BY MOUTH 325 mg DAILY@0800 AUGUSTINE Administration Clonidine HCl 1 patch 01/25/25 09:00 01/25/25 09:52 Clonidine 0.1 Mg/24 Hr Patch TRANSDERM 1 patch WEEKLY AUGUSTINE Administration Dextrose 12.5 gm 01/18/25 15:51 Dextrose 50% 25 Gm/50 Ml Syringe IV PUSH PRN PRN Hypoglycemia Protocol Doxazosin Mesylate 8 mg 01/26/25 09:00 01/28/25 09:35 Doxazosin Mesylate 4 Mg Tablet PO 8 mg DAILY AUGUSTINE Administration Enoxaparin Sodium 40 mg 01/19/25 11:45 01/28/25 09:36 Enoxaparin 40 Mg/0.4 Ml Syringe SUB-Q 40 mg DAILY AUGUSTINE Administration Glucagon 1 mg 01/18/25 15:51 Glucagon For Inj 1 Mg Vial IM PRN PRN Hypoglycemia Protocol Glucose 15 gm 01/18/25 15:51 Glucose Oral Gel 15 Gm Of Glucse In 37.5 Gm Tube PO PRN PRN Hypoglycemia Protocol Hydralazine HCl 20 mg 01/22/25 10:25 01/26/25 04:00 Hydralazine Hcl 20 Mg/Ml Vial IV PUSH 20 mg Q4H PRN Administration Blood Pressure - High Dextrose 1,000 mls @ 100 mls/hr 01/18/25 15:51 Dextrose 5% 1,000 Ml IVPB PRN PRN Hypoglycemia Protocol Dextrose 1,000 mls @ 50 mls/hr 01/24/25 11:38 Dextrose 10% IV CONT .Q20H PRN if PN is interrupted Insulin Aspart 3 - 6 units 01/28/25 08:00 01/28/25 09:36 Insulin Aspart (*Bkc) 100 Units/Ml SUB-Q Not Given T[facility] Protocol Insulin Glargine 15 units 01/25/25 09:35 01/28/25 09:37 Insulin Glargine (*Bkc) 100 Units/Ml SUB-Q 15 units QAM AUGUSTINE Administration Levothyroxine Sodium 25 mcg 01/24/25 06:30 01/27/25 10:51 Levothyroxine Sodium 25 Mcg Tablet PO 25 mcg DAILY@0630 AUGUSTINE Administration Lidocaine 1 patch 01/19/25 13:35 01/28/25 09:34 Lidocaine 5% Patch TRANSDERM 1 patch DAILY AUGUSTINE Administration Lisinopril 40 mg 01/25/25 09:30 01/28/25 09:35 Lisinopril 20 Mg Tablet PO 40 mg QAM AUGUSTINE Administration Melatonin 3 mg 01/19/25 22:39 01/19/25 23:16 Melatonin 3 Mg Tablet PO 3 mg HS PRN Administration Insomnia Metoprolol Tartrate 25 mg 01/27/25 21:00 01/28/25 09:36 Metoprolol Tartrate 25 Mg Tablet BY MOUTH 25 mg Q12HR AUGUSTINE Administration Morphine Sulfate 4 mg 01/26/25 23:52 Morphine Sulfate (*Crx) 4 Mg/Ml Inj IV PUSH Q4H PRN Pain Rated 7-10 Ondansetron HCl 4 mg 01/17/25 19:07 01/26/25 22:03 Ondansetron Inj 4 Mg/2 Ml Vial IV PUSH 4 mg Q4H PRN Administration Nausea Oxycodone HCl 5 mg 01/27/25 09:05 Oxycodone Hcl (*Crx) 5 Mg Tab Ir PO Q4H PRN Pain Rated 7-10 Pantoprazole Sodium 40 mg 01/28/25 09:00 01/28/25 09:36 Pantoprazole 40 Mg Tablet PO 40 mg QAM AUGUSTINE Administration Quetiapine Fumarate 25 mg 01/21/25 21:00 01/28/25 09:35 Quetiapine Fumarate 25 Mg Tablet PO 25 mg Q12HR AUGUSTINE Administration Sodium Chloride 20 ml 01/24/25 14:41 Central Line Flush IV PUSH PRN PRN after blood draws Sodium Chloride 10 ml 01/24/25 14:41 Central Line Flush IV PUSH PRN PRN with TPN bag changes Sodium Chloride 10 ml 01/24/25 22:00 01/28/25 04:27 Central Line Flush IV PUSH 10 ml Q8HR AUGUSTINE Administration Radiology Results: ITS Impressions Abdomen/Pelvis CT 01/17/25 18:07 IMPRESSION: Ascending aortic aneurysm measuring up to 5.6 cm. The descending thoracic aorta is mildly dilated to 3.1 cm. Consider nonemergent but timely outpatient CT angiography of the chest and appropriate referral for monitoring/potential intervention. Mild esophagitis/gastritis. Periesophageal lymphadenopathy. Hepatomegaly with steatosis. Mid small bowel obstruction, transition point in the left lateral abdomen. Small volume ascites. Bladder wall thickening, likely secondary to chronic outlet obstruction from prostatomegaly. Small Bowel X-Ray 01/18/25 15:02 IMPRESSION: 1. Small bowel obstruction. Chest X-Ray 01/24/25 14:53 IMPRESSION: Right PICC line with the tip overlying the right atrium. Cardiomegaly. Minimal opacification in the left lung base. Abdomen X-Ray 01/27/25 06:38 IMPRESSION: 1. Dilated small bowel, likely adynamic ileus. 2. Nasogastric tube tip in the stomach. Labs Labs: Laboratory Results - last 24 hr 01/27/25 01/27/25 01/27/25 11:32 16:20 20:09 WBC RBC Hgb Hct MCV MCH MCHC RDW Plt Count MPV Immature Gran % (Auto) Neut % (Auto) Lymph % (Auto) [place] % (Auto) Eos % (Auto) Baso % (Auto) Lymph # (Auto) [place] # (Auto) Eos # (Auto) Baso # (Auto) Abs Immat Gran (auto) Absolute Neuts (auto) Absolute Nucleated RBC Nucleated RBC % Sodium Potassium Chloride Carbon Dioxide Anion Gap BUN Creatinine Estim Creat Clear Calc Estimated GFR Glucose POC Capillary Glucose 138 H 159 H 119 H Calcium Magnesium 01/28/25 01/28/25 04:22 07:56 WBC 7.4 RBC 4.16 L Hgb 11.5 L Hct 38.1 L MCV 91.6 MCH 27.6 MCHC 30.2 L RDW 14.3 Plt Count 177 MPV 10.5 H Immature Gran % (Auto) 0.7 H Neut % (Auto) 67.5 Lymph % (Auto) 20.0 [place] % (Auto) 8.2 Eos % (Auto) 3.3 Baso % (Auto) 0.3 Lymph # (Auto) 1.47 [place] # (Auto) 0.6 Eos # (Auto) 0.2 Baso # (Auto) 0.0 Abs Immat Gran (auto) 0.05 H Absolute Neuts (auto) 5.0 Absolute Nucleated RBC 0.000 Nucleated RBC % 0.0 Sodium 143 Potassium 3.5 Chloride 107 Carbon Dioxide 25 Anion Gap 11 BUN 52 H Creatinine 2.80 H Estim Creat Clear Calc 25 Estimated GFR 22 L Glucose 141 H POC Capillary Glucose 112 H Calcium 8.3 L Magnesium 2.5 H
[2025-01-28 12:27] LABS: Glucose Point of Care 176 mg/dl (65-105)
--- NOTE | 2025-01-28 14:54 | PM.IMPN ---
Progress Note: A&P Assessment and Plan (1) SBO (small bowel obstruction): Code(s): K56.609 - Unspecified intestinal obstruction, unspecified as to partial versus complete obstruction Status: Acute Assessment and Plan: 02/15: Patient was admitted for abdominal pain, small-bowel obstruction on abdominal CT scan -Surgery was consulted, patient was taken for surgery on 01/18/2025 for high-grade small-bowel obstruction secondary to abdominal adhesions, status post exploratory laparotomy with abdominal adhesiolysis. -continue Zosyn per surgery -Patient has developed ileus. Patient has NG tube in place which is on continue suction. bowel rest, NG tube decompression, -patient had a bowel movement. ? Trial of p.o. diet -management per General surgery -continue reglan, Dulcolax suppository has been ordered per surgery -discussed with general surgeon -01/24 started TPN 01/22: Obstructive series indicated Ileus 02/14: CT scan of the abdomen and pelvis showed mid small-bowel obstruction with transition point in the left lateral abdomen, small volume ascites, hepatomegaly with steatosis, bladder wall thickening likely secondary to chronic outlet obstruction prostatomegaly. Ascending aortic aneurysm measuring 5.6 cm, descending thoracic aorta is mildly dilated to 3.1 cm mild esophagitis/gastritis, periesophageal lymphadenopathy. (2) Hypertension: Qualifiers: Hypertension type: primary hypertension Qualified Code(s): I10 - Essential (primary) hypertension Code(s): I10 - Essential (primary) hypertension Status: Acute Assessment and Plan: Patient currently off nicardipine infusion with improvement since he has abdominal aortic aneurysm. Off Cardizem infusion as patient is in sinus rhythm. Continue p.o. metoprolol , Norvasc, lisinopril Increase doxazosin to 8 mg mg Clonidine transdermal patch considering unreliable p.o. absorption (3) Diabetes mellitus with renal manifestation: Code(s): E11.29 - Type 2 diabetes mellitus with other diabetic kidney complication Status: Acute Assessment and Plan: Continue Accu-Cheks and sliding scale insulin Continue Lantus (4) BPH (benign prostatic hyperplasia): Code(s): N40.0 - Benign prostatic hyperplasia without lower urinary tract symptoms Status: Acute Assessment and Plan: Mckinney catheter in place, patient had adequate urine output (5) Atrial fibrillation with RVR: Code(s): I48.91 - Unspecified atrial fibrillation Status: Acute Assessment and Plan: Converted to sinus rhythm. Discontinue Cardizem infusion Continue p.o. metoprolol Systemic anticoagulation is on hold and resumption as per General surgery Aspirin (6) Acute respiratory failure: Code(s): J96.00 - Acute respiratory failure, unspecified whether with hypoxia or hypercapnia Status: Acute Assessment and Plan: Currently on nasal cannula. Likely atelectasis. Continue incentive spirometry. PT OT (7) Delirium: Code(s): R41.0 - Disorientation, unspecified Status: Acute Assessment and Plan: Off Precedex infusion. Improved. Much more alert and oriented. Restraints have been discontinued Sitter at bedside Continue Seroquel (8) Electrolyte abnormality: Code(s): E87.8 - Other disorders of electrolyte and fluid balance, not elsewhere classified Status: Acute Assessment and Plan: Replace low potassium and phos D5 water for hypernatremia (9) Elevated serum creatinine: Code(s): R79.89 - Other specified abnormal findings of blood chemistry Status: Acute Assessment and Plan: Patient was given Lasix yesterday 2 doses and there is elevation of creatinine is CO2 suggestive of contraction alkalosis Hold diuretics and will give some fluids today. Monitor urine output electrolytes and creatinine Plan patient was found to have High-grade small-bowel obstruction secondary to abdominal adhesions was seen by surgery service had exploratory laparotomy, abdominal adhesiolysis on 01/18, however patient became confused removed his IV, and was wondering in the hospital, patient was brought back to the room, patient was aggressive, transferred to ICU for sedation with Precedex, patient is now off Precedex, more alert and eating ice, stats does pass some gas, today patient talking stats feels better, his son is present in the room, patient is clinically improving. on 01/24 patient had been NPO for last seven day, surgeon has started patient has PICC line on TPN, last night patient had two large BM and he is now in IMU, NG tube is out and still some what confused sitter is with him, will monitor further recommendation to follow. possible discharge tomorrow it it is okay with the surgery service. DVT prophylaxis: Enoxaparin subcutaneous Stress ulcer prophylaxis: Protonix IV q.12 hours Nutrition: NG tube management as above, npo Code Status: Full code Switched to nasal cannula, incentive spirometry PT OT Subjective Date/time seen: 01/28/25 14:54 Interval history: Patient admitted for treatment of SBO and plan for exploratory laparotomy. Patient still hypertensive will increase IV metoprolol to 5 mg scheduled and schedule his IV hydralazine. Patient refusing NG tube but denies ABD pain, distention slightly improved. Patient reported flatulence but still no BM. H&P-Narrative He presents with a few hours' history of central abdominal pain; it is localized; rated 10 in intensity, aggravated by meals/drinks, alleviated by fasting; associated with bilious but non-bloody emesis, malaise, anorexia, chills and rigors. His last BM was days ago; he denies chest pain, dizziness, LOC, flank pain, dysuria, hematuria or [place]. patient was found to have High-grade small-bowel obstruction secondary to abdominal adhesions was seen by surgery service had exploratory laparotomy, abdominal adhesiolysis on 01/18, however patient became confused removed his IV, and was wondering in the hospital, patient was brought back to the room, patient was aggressive, transferred to ICU for sedation with Precedex, patient is now off Precedex, more alert and eating ice, stats does pass some gas, today patient talking stats feels better, his son is present in the room, patient is clinically improving. on 01/24 patient had been NPO for last seven day, surgeon has started patient has PICC line on TPN, last night patient had two large BM and he is now in IMU, NG tube is out and still some what confused sitter is with him, will monitor further recommendation to follow. possible discharge tomorrow it it is okay with the surgery service. Review of Systems Review of Systems: All systems reviewed & are unremarkable except as noted in HPI and below (HPI) ROS unobtainable: Yes unobtainable due to mental status Exam Narrative: Patient is comfortable, NAD HEENT: clear LUNGS:CTA ABD: distended Lower extremities: no edema SKIN: nonjaundiced Neuro: Confused Objective Data Vital Signs Vital Signs: Vital Signs - 24 hr 01/27/25 14:00 01/27/25 15:23 01/27/25 16:00 Temperature 37.4 C Pulse Rate 80 76 Respiratory Rate 25 H Blood Pressure 121/65 Pulse Oximetry 93 95 Oxygen Delivery Room Air Fraction of Inspired Oxygen 01/27/25 16:00 01/27/25 18:00 01/27/25 20:00 Temperature 36.9 C Pulse Rate 95 82 80 Respiratory Rate 18 Blood Pressure 92/54 L Pulse Oximetry 93 Oxygen Delivery Fraction of Inspired Oxygen 01/27/25 20:00 01/27/25 20:00 01/27/25 20:30 Temperature Pulse Rate 86 86 84 Respiratory Rate 18 Blood Pressure Pulse Oximetry 93 Oxygen Delivery Room Air Fraction of Inspired Oxygen 21 01/27/25 22:00 01/28/25 00:00 01/28/25 00:00 Temperature 36.6 C Pulse Rate 78 89 86 Respiratory Rate 18 18 Blood Pressure 109/56 L Pulse Oximetry 93 93 Oxygen Delivery Room Air Fraction of Inspired Oxygen 21 01/28/25 00:00 01/28/25 01:59 01/28/25 04:00 Temperature Pulse Rate 86 88 91 Respiratory Rate 18 Blood Pressure Pulse Oximetry 93 Oxygen Delivery Room Air Fraction of Inspired Oxygen 21 01/28/25 04:00 01/28/25 04:00 01/28/25 06:00 Temperature 36.6 C Pulse Rate 91 65 64 Respiratory Rate 20 Blood Pressure 99/52 L Pulse Oximetry 96 Oxygen Delivery Fraction of Inspired Oxygen 01/28/25 08:00 01/28/25 08:00 01/28/25 09:36 Temperature 36.6 C Pulse Rate 68 68 70 Respiratory Rate 20 Blood Pressure 116/68 Pulse Oximetry 97 97 Oxygen Delivery Room Air Fraction of Inspired Oxygen 01/28/25 12:00 01/28/25 12:00 Temperature 36.6 C Pulse Rate 69 Respiratory Rate 24 H Blood Pressure 121/67 Pulse Oximetry 96 96 Oxygen Delivery Room Air Fraction of Inspired Oxygen Intake/Output Intake/Output: Intake & Output 01/25/25 01/26/25 01/27/25 01/29/25 23:59 23:59 23:59 00:59 Intake Total 2954.0 2091.6 2770 550 Output Total 2750 2300 2500 Balance 204.0 -208.4 270 550 Meds/Results Medications: Active Medications Generic Name Dose Route Start Last Admin Trade Name Freq PRN Reason Stop Dose Admin Acetaminophen 650 mg 01/26/25 23:32 Acetaminophen Elixir 325 Mg/10.15 Ml Udc PO Q4H PRN Mild Pain (1-3) or Fever Hydrocodone Bitart/Acetaminophen 1 tab 01/27/25 09:05 Hydrocodone/Acetaminophen (*Crx) 5-325 Mg Tablet PO Q4H PRN Pain Rated 4-6 Amlodipine Besylate 10 mg 01/27/25 18:00 01/27/25 17:05 Amlodipine Besylate 10 Mg Tablet BY MOUTH 10 mg QPM AUGUSTINE Administration Aspirin 325 mg 01/28/25 08:00 01/28/25 09:35 Aspirin 325 Mg Tablet BY MOUTH 325 mg DAILY@0800 AUGUSTINE Administration Clonidine HCl 1 patch 01/25/25 09:00 01/25/25 09:52 Clonidine 0.1 Mg/24 Hr Patch TRANSDERM 1 patch WEEKLY AUGUSTINE Administration Dextrose 12.5 gm 01/18/25 15:51 Dextrose 50% 25 Gm/50 Ml Syringe IV PUSH PRN PRN Hypoglycemia Protocol Doxazosin Mesylate 8 mg 01/26/25 09:00 01/28/25 09:35 Doxazosin Mesylate 4 Mg Tablet PO 8 mg DAILY AUGUSTINE Administration Enoxaparin Sodium 40 mg 01/19/25 11:45 01/28/25 09:36 Enoxaparin 40 Mg/0.4 Ml Syringe SUB-Q 40 mg DAILY AUGUSTINE Administration Glucagon 1 mg 01/18/25 15:51 Glucagon For Inj 1 Mg Vial IM PRN PRN Hypoglycemia Protocol Glucose 15 gm 01/18/25 15:51 Glucose Oral Gel 15 Gm Of Glucse In 37.5 Gm Tube PO PRN PRN Hypoglycemia Protocol Hydralazine HCl 20 mg 01/22/25 10:25 01/26/25 04:00 Hydralazine Hcl 20 Mg/Ml Vial IV PUSH 20 mg Q4H PRN Administration Blood Pressure - High Dextrose 1,000 mls @ 100 mls/hr 01/18/25 15:51 Dextrose 5% 1,000 Ml IVPB PRN PRN Hypoglycemia Protocol Dextrose 1,000 mls @ 50 mls/hr 01/24/25 11:38 Dextrose 10% IV CONT .Q20H PRN if PN is interrupted Insulin Aspart 3 - 6 units 01/28/25 08:00 01/28/25 11:53 Insulin Aspart (*Bkc) 100 Units/Ml SUB-Q Not Given TIDWM AUGUSTINE Protocol Insulin Glargine 15 units 01/25/25 09:35 01/28/25 09:37 Insulin Glargine (*Bkc) 100 Units/Ml SUB-Q 15 units QAM AUGUSTINE Administration Levothyroxine Sodium 25 mcg 01/24/25 06:30 01/27/25 10:51 Levothyroxine Sodium 25 Mcg Tablet PO 25 mcg DAILY@0630 AUGUSTINE Administration Lidocaine 1 patch 01/19/25 13:35 01/28/25 09:34 Lidocaine 5% Patch TRANSDERM 1 patch DAILY AUGUSTINE Administration Lisinopril 40 mg 01/25/25 09:30 01/28/25 09:35 Lisinopril 20 Mg Tablet PO 40 mg QAM AUGUSTINE Administration Melatonin 3 mg 01/19/25 22:39 01/19/25 23:16 Melatonin 3 Mg Tablet PO 3 mg HS PRN Administration Insomnia Metoprolol Tartrate 25 mg 01/27/25 21:00 01/28/25 09:36 Metoprolol Tartrate 25 Mg Tablet BY MOUTH 25 mg Q12HR AUGUSTINE Administration Morphine Sulfate 4 mg 01/26/25 23:52 Morphine Sulfate (*Crx) 4 Mg/Ml Inj IV PUSH Q4H PRN Pain Rated 7-10 Ondansetron HCl 4 mg 01/17/25 19:07 01/26/25 22:03 Ondansetron Inj 4 Mg/2 Ml Vial IV PUSH 4 mg Q4H PRN Administration Nausea Oxycodone HCl 5 mg 01/27/25 09:05 Oxycodone Hcl (*Crx) 5 Mg Tab Ir PO Q4H PRN Pain Rated 7-10 Pantoprazole Sodium 40 mg 01/28/25 09:00 01/28/25 09:36 Pantoprazole 40 Mg Tablet PO 40 mg QAM AUGUSTINE Administration Quetiapine Fumarate 25 mg 01/21/25 21:00 01/28/25 09:35 Quetiapine Fumarate 25 Mg Tablet PO 25 mg Q12HR AUGUSTINE Administration Sodium Chloride 20 ml 01/24/25 14:41 Central Line Flush IV PUSH PRN PRN after blood draws Sodium Chloride 10 ml 01/24/25 14:41 Central Line Flush IV PUSH PRN PRN with TPN bag changes Sodium Chloride 10 ml 01/24/25 22:00 01/28/25 04:27 Central Line Flush IV PUSH 10 ml Q8HR AUGUSTINE Administration Radiology Results: ITS Impressions Abdomen/Pelvis CT 01/17/25 18:07 IMPRESSION: Ascending aortic aneurysm measuring up to 5.6 cm. The descending thoracic aorta is mildly dilated to 3.1 cm. Consider nonemergent but timely outpatient CT angiography of the chest and appropriate referral for monitoring/potential intervention. Mild esophagitis/gastritis. Periesophageal lymphadenopathy. Hepatomegaly with steatosis. Mid small bowel obstruction, transition point in the left lateral abdomen. Small volume ascites. Bladder wall thickening, likely secondary to chronic outlet obstruction from prostatomegaly. Small Bowel X-Ray 01/18/25 15:02 IMPRESSION: 1. Small bowel obstruction. Chest X-Ray 01/24/25 14:53 IMPRESSION: Right PICC line with the tip overlying the right atrium. Cardiomegaly. Minimal opacification in the left lung base. Abdomen X-Ray 01/27/25 06:38 IMPRESSION: 1. Dilated small bowel, likely adynamic ileus. 2. Nasogastric tube tip in the stomach. Labs Labs: Laboratory Results - last 24 hr 01/27/25 01/27/25 01/28/25 16:20 20:09 04:22 WBC 7.4 RBC 4.16 L Hgb 11.5 L Hct 38.1 L MCV 91.6 MCH 27.6 MCHC 30.2 L RDW 14.3 Plt Count 177 MPV 10.5 H Immature Gran % (Auto) 0.7 H Neut % (Auto) 67.5 Lymph % (Auto) 20.0 [place] % (Auto) 8.2 Eos % (Auto) 3.3 Baso % (Auto) 0.3 Lymph # (Auto) 1.47 [place] # (Auto) 0.6 Eos # (Auto) 0.2 Baso # (Auto) 0.0 Abs Immat Gran (auto) 0.05 H Absolute Neuts (auto) 5.0 Absolute Nucleated RBC 0.000 Nucleated RBC % 0.0 Sodium 143 Potassium 3.5 Chloride 107 Carbon Dioxide 25 Anion Gap 11 BUN 52 H Creatinine 2.80 H Estim Creat Clear Calc 25 Estimated GFR 22 L Glucose 141 H POC Capillary Glucose 159 H 119 H Calcium 8.3 L Magnesium 2.5 H 01/28/25 01/28/25 07:56 11:51 WBC RBC Hgb Hct MCV MCH MCHC RDW Plt Count MPV Immature Gran % (Auto) Neut % (Auto) Lymph % (Auto) [place] % (Auto) Eos % (Auto) Baso % (Auto) Lymph # (Auto) [place] # (Auto) Eos # (Auto) Baso # (Auto) Abs Immat Gran (auto) Absolute Neuts (auto) Absolute Nucleated RBC Nucleated RBC % Sodium Potassium Chloride Carbon Dioxide Anion Gap BUN Creatinine Estim Creat Clear Calc Estimated GFR Glucose POC Capillary Glucose 112 H 176 H Calcium Magnesium Quality VTE Prophylaxis VTE prophylaxis: mechanical ordered and pharmacologic ordered
[2025-01-28] MEDS: amLODIPine BESYLATE 10 MG TABLET BY MOUTH (16:33)
[2025-01-28 16:53] LABS: Glucose Point of Care 106 mg/dl (65-105)
[2025-01-28 20:43] LABS: Glucose Point of Care 138 mg/dl (65-105)
[2025-01-29] VITALS (14 sets, daily range): BP systolic 120–134; BP diastolic 67–81; PULSE 70–81; RESP 20–28; TEMP 36.1–37; O2SAT 91–98
[2025-01-29] MEDS: CENTRAL LINE FLUSH 10 ML IV PUSH ×3 (03:59→22:27)
[2025-01-29] MEDS: LEVOTHYROXINE SODIUM 25 MCG TABLET PO (04:01)
[2025-01-29 04:21] LABS: Basophils Percent Auto 0.2 % (0.2-1.2); Eosinophils Absolute Auto 0.2 K/mm3 (0-0.3); Eosinophils Percent Auto 2.4 % (0-4.4); Hemoglobin 12.2 g/dL (14.0-18.0); Immature Granulocyte Absolute 0.04 K/mm3 (0.00-0.031); Immature Granulocyte Percent A 0.4 % (0-0.5); Lymphocytes Absolute Auto 1.14 K/mm3 (0.9-3.2); Lymphocytes Percent Auto 12.3 % (18.3-44.2); Mean Corpuscular HGB Conc 30.5 g/dl (32-36); Mean Corpuscular Hemoglobin 27.1 pg (26-34); Mean Corpuscular Volume 88.7 fl (80-100); Mean Platelet Volume 10.4 fl (7.4-10.4); Monocytes Absolute Auto 0.9 K/mm3 (0.1-0.6); Monocytes Percent Auto 9.6 % (2.6-8.5); Neutrophils Percent Auto 75.1 % (45.5-73.1); Platelet Count Result 205 k/mm3 (150-375); Red Blood Count 4.51 M/mm3 (4.6-6.20); Red Cell Distribution Width 13.9 % (11.5-14.5); White Blood Count 9.3 K/mm3 (4.5-10.0)
[2025-01-29 04:33] LABS: Anion Gap 10 mmol/L (4-12); Blood Urea Nitrogen 45 mg/dL (9-20); Calcium 8.8 mg/dL (8.4-10.2); Carbon Dioxide 29 mmol/L (22-30); Chloride 104 mmol/L (98-107); Estimated CRCL calculation 41 ml/min; Estimated Glomerular Filt Rate 40; Glucose 136 mg/dL (65-110); Magnesium 2.2 mg/dL (1.6-2.3); Sodium 143 mmol/L (137-145)
[2025-01-29 08:11] LABS: Glucose Point of Care 145 mg/dl (65-105)
[2025-01-29] MEDS: PANTOPRAZOLE 40 MG TABLET PO (09:06)
[2025-01-29] MEDS: METOPROLOL TARTRATE 25 MG TABLET BY MOUTH ×2 (09:06→21:03)
[2025-01-29] MEDS: lisinopriL 20 MG TABLET 40 MG PO (09:06)
[2025-01-29] MEDS: DOXAZOSIN MESYLATE 4 MG TABLET 8 MG PO (09:06)
[2025-01-29] MEDS: ASPIRIN 325 MG TABLET BY MOUTH (09:06)
[2025-01-29] MEDS: ENOXAPARIN 40 MG/0.4 ML SYRINGE SUB-Q (09:07)
[2025-01-29] MEDS: QUEtiapine FUMARATE 25 MG TABLET PO ×2 (09:07→21:04)
[2025-01-29] MEDS: LIDOCAINE 5% PATCH 1 PATCH TRANSDERM (09:07)
[2025-01-29] MEDS: INSULIN GLARGINE (*BKC) 100 UNITS/ML 15 UNITS SUB-Q (09:09)
--- NOTE | 2025-01-29 11:28 | PCNFU ---
Nutrition Follow-Up Complete: Inadequate oral intake related to ileus as evidenced by NPO/CL day 6 goal: Meet estimated nutrition needs Patient has limited progress towards goal. We will continue current goal. Pt current nutrition is Low Fiber with Glucerna shakes TID. Last recorded weight is 128.7 kg, no new weight to report. Recommend re-weight Bowel Motility: +BM reported 01/27 Labs Reviewed:Glu 136, BUN 45, GFR 40, Cr 1.68, Hct 40.0, Hgb 12.2 Meds Noted: Seroquel, Lopressor, Lantus, Reglan Skin:WNL Additional Notes: TPN has been discontinued, diet order has been advanced to a Low fiber diet. Spoke with nursing today, patient refused breakfast. Diet supplements are being providing on trays for an additional 220 kcal and 10 gm protein. PO intake encouraged. Monitoring orders, diet advancement, weights, labs, plan of care Follow up every 3 days.
[2025-01-29 12:14] LABS: Glucose Point of Care 139 mg/dl (65-105)
--- NOTE | 2025-01-29 15:44 | P.PNGS_ITS ---
Progress Note: A&P Assessment and Plan (1) SBO (small bowel obstruction): Code(s): K56.609 - Unspecified intestinal obstruction, unspecified as to partial versus complete obstruction Status: Acute Assessment and Plan: * Continues to improve 11 days postop following exploratory laparotomy, adhesiolysis. Tolerating a soft diet and bowels are moving. Incision is healing well with danilo intact. He is far enough out postop that we could consider removing the danilo prior to discharge and have him follow-up with Dr. Gonsales in the office in 2 weeks. PT signed off as patient is tolerating activity well and they are not recommending any needs for rehab. He is planning to discharge home and have his son stay with him initially after discharge. Hopefully the patient can discharge tomorrow if he continues to i mprove. (2) Adynamic ileus: Code(s): K56.0 - Paralytic ileus Status: Acute Assessment and Plan: * Resolved. (3) Ascending aortic aneurysm: Qualifiers: Presence of rupture: without rupture Qualified Code(s): I71.21 - Aneurysm of the ascending aorta, without rupture Code(s): I71.21 - Aneurysm of the ascending aorta, without rupture Status: Chronic Assessment and Plan: * Stable. Continue to closely monitor his blood pressure. (4) Chronic kidney disease, stage 3 (moderate): Code(s): N18.3 - Chronic kidney disease, stage 3 (moderate) Status: Chronic Assessment and Plan: * Creatinine improved today after fluid bolus yesterday. Plan I have discussed the patient's case and plan of care with Dr. Gonsales. Subjective Subjective Date/Time Seen: 01/29/25 10:44 Post Op day: 11 Patient reports: no new complaints and feels better Interval history: When patient was seen this morning, he reported feeling well. He was able to ambulate in the halls with therapy over 300 ft with a walker and tolerate this well. He reports tolerating his diet and denies any abdominal pain. No vomiting last night or this morning. He states he still has some mild intermittent nausea, but is feeling okay right now. He is passing flatus and reports having a bowel movement last night. Nursing called later in the day that the patient had some abdominal pain and nausea that improved after passing flatus and having a good BM. She reports he had refused breakfast and lunch due to the discomfort. No vomiting. Exam Const: General: comfortable and no acute distress Orientation/consciousness: patient oriented x3 GI: Inspection: incision (dry and danilo intact, no erythema) and other (large, rounded protuberant abdomen) GI Palp: Yes Soft to palpation, No Tenderness to palpation present (GI), No Guarding due to palpation present (GI) and No Rebound tenderness present Auscultation: normal bowel sounds Extrem: General: no calf tenderness and edema bilateral (equal bilaterally) Objective Data Vital Signs Vital Signs: Vital Signs - 24 hr 01/28/25 16:00 01/28/25 16:00 01/28/25 16:00 Temperature 97.6 F Pulse Rate 79 68 Respiratory Rate 20 Blood Pressure 137/81 Pulse Oximetry 96 95 Oxygen Delivery Room Air Fraction of Inspired Oxygen 01/28/25 18:00 01/28/25 20:00 01/28/25 20:00 Temperature 98.6 F Pulse Rate 78 76 77 Respiratory Rate 20 20 Blood Pressure 126/71 Pulse Oximetry 94 94 Oxygen Delivery Room Air Fraction of Inspired Oxygen 21 01/28/25 20:00 01/28/25 20:33 01/28/25 22:00 Temperature Pulse Rate 77 78 76 Respiratory Rate Blood Pressure Pulse Oximetry Oxygen Delivery Fraction of Inspired Oxygen 01/28/25 23:44 01/28/25 23:44 01/28/25 23:57 Temperature 98.8 F Pulse Rate 78 78 71 Respiratory Rate 20 18 Blood Pressure 140/74 Pulse Oximetry 94 94 Oxygen Delivery Room Air Fraction of Inspired Oxygen 21 01/29/25 01:52 01/29/25 04:00 01/29/25 04:00 Temperature 98.3 F Pulse Rate 70 77 71 Respiratory Rate 20 20 Blood Pressure 134/79 Pulse Oximetry 94 94 Oxygen Delivery Room Air Fraction of Inspired Oxygen 21 01/29/25 04:00 01/29/25 06:00 01/29/25 08:00 Temperature 98.6 F Pulse Rate 71 78 71 Respiratory Rate 24 H Blood Pressure 120/81 Pulse Oximetry 94 Oxygen Delivery Fraction of Inspired Oxygen 01/29/25 09:06 01/29/25 12:00 Temperature 98.1 F Pulse Rate 73 74 Respiratory Rate 28 H Blood Pressure 132/72 Pulse Oximetry 91 Oxygen Delivery Fraction of Inspired Oxygen Intake/Output Intake/Output: Intake & Output 03/06/1501/27/25 01/29/25 01/29/25 23:59 23:59 00:59 23:59 Intake Total 2091.6 2770 550 240 Output Total 2300 2500 Balance -208.4 270 550 240 Meds/Results Medications: Active Medications Generic Name Dose Route Start Last Admin Trade Name Freq PRN Reason Stop Dose Admin Acetaminophen 650 mg 01/26/25 23:32 Acetaminophen Elixir 325 Mg/10.15 Ml Udc PO Q4H PRN Mild Pain (1-3) or Fever Hydrocodone Bitart/Acetaminophen 1 tab 01/27/25 09:05 Hydrocodone/Acetaminophen (*Crx) 5-325 Mg Tablet PO Q4H PRN Pain Rated 4-6 Amlodipine Besylate 10 mg 01/27/25 18:00 01/28/25 16:33 Amlodipine Besylate 10 Mg Tablet BY MOUTH 10 mg QPM AUGUSTINE Administration Aspirin 325 mg 01/28/25 08:00 01/29/25 09:06 Aspirin 325 Mg Tablet BY MOUTH 325 mg DAILY@0800 AUGUSTINE Administration Clonidine HCl 1 patch 01/25/25 09:00 01/25/25 09:52 Clonidine 0.1 Mg/24 Hr Patch TRANSDERM 1 patch WEEKLY AUGUSTINE Administration Dextrose 12.5 gm 01/18/25 15:51 Dextrose 50% 25 Gm/50 Ml Syringe IV PUSH PRN PRN Hypoglycemia Protocol Doxazosin Mesylate 8 mg 01/26/25 09:00 01/29/25 09:06 Doxazosin Mesylate 4 Mg Tablet PO 8 mg DAILY AUGUSTINE Administration Enoxaparin Sodium 40 mg 01/19/25 11:45 01/29/25 09:07 Enoxaparin 40 Mg/0.4 Ml Syringe SUB-Q 40 mg DAILY AUGUSTINE Administration Glucagon 1 mg 01/18/25 15:51 Glucagon For Inj 1 Mg Vial IM PRN PRN Hypoglycemia Protocol Glucose 15 gm 01/18/25 15:51 Glucose Oral Gel 15 Gm Of Glucse In 37.5 Gm Tube PO PRN PRN Hypoglycemia Protocol Hydralazine HCl 20 mg 01/22/25 10:25 01/26/25 04:00 Hydralazine Hcl 20 Mg/Ml Vial IV PUSH 20 mg Q4H PRN Administration Blood Pressure - High Dextrose 1,000 mls @ 100 mls/hr 01/18/25 15:51 Dextrose 5% 1,000 Ml IVPB PRN PRN Hypoglycemia Protocol Dextrose 1,000 mls @ 50 mls/hr 01/24/25 11:38 Dextrose 10% IV CONT .Q20H PRN if PN is interrupted Insulin Aspart 3 - 6 units 01/28/25 08:00 01/29/25 12:14 Insulin Aspart (*Bkc) 100 Units/Ml SUB-Q Not Given TIDWM AUGUSTINE Protocol Insulin Glargine 15 units 01/25/25 09:35 01/29/25 09:09 Insulin Glargine (*Bkc) 100 Units/Ml SUB-Q 15 units QAM AUGUSTINE Administration Levothyroxine Sodium 25 mcg 01/24/25 06:30 01/29/25 04:01 Levothyroxine Sodium 25 Mcg Tablet PO 25 mcg DAILY@0630 AUGUSTINE Administration Lidocaine 1 patch 01/19/25 13:35 01/29/25 09:07 Lidocaine 5% Patch TRANSDERM 1 patch DAILY AUGUSTINE Administration Lisinopril 40 mg 01/25/25 09:30 01/29/25 09:06 Lisinopril 20 Mg Tablet PO 40 mg QAM AUGUSTINE Administration Melatonin 3 mg 01/19/25 22:39 01/19/25 23:16 Melatonin 3 Mg Tablet PO 3 mg HS PRN Administration Insomnia Metoprolol Tartrate 25 mg 01/27/25 21:00 01/29/25 09:06 Metoprolol Tartrate 25 Mg Tablet BY MOUTH 25 mg Q12HR AUGUSTINE Administration Morphine Sulfate 4 mg 01/26/25 23:52 Morphine Sulfate (*Crx) 4 Mg/Ml Inj IV PUSH Q4H PRN Pain Rated 7-10 Ondansetron HCl 4 mg 01/17/25 19:07 01/26/25 22:03 Ondansetron Inj 4 Mg/2 Ml Vial IV PUSH 4 mg Q4H PRN Administration Nausea Oxycodone HCl 5 mg 01/27/25 09:05 Oxycodone Hcl (*Crx) 5 Mg Tab Ir PO Q4H PRN Pain Rated 7-10 Pantoprazole Sodium 40 mg 01/28/25 09:00 01/29/25 09:06 Pantoprazole 40 Mg Tablet PO 40 mg QAM AUGUSTINE Administration Quetiapine Fumarate 25 mg 01/21/25 21:00 01/29/25 09:07 Quetiapine Fumarate 25 Mg Tablet PO 25 mg Q12HR AUGUSTINE Administration Sodium Chloride 20 ml 01/24/25 14:41 Central Line Flush IV PUSH PRN PRN after blood draws Sodium Chloride 10 ml 01/24/25 14:41 Central Line Flush IV PUSH PRN PRN with TPN bag changes Sodium Chloride 10 ml 01/24/25 22:00 01/29/25 03:59 Central Line Flush IV PUSH 10 ml Q8HR AUGUSTINE Administration Radiology Results: ITS Impressions Abdomen/Pelvis CT 01/17/25 18:07 IMPRESSION: Ascending aortic aneurysm measuring up to 5.6 cm. The descending thoracic aorta is mildly dilated to 3.1 cm. Consider nonemergent but timely outpatient CT angiography of the chest and appropriate referral for monitoring/potential intervention. Mild esophagitis/gastritis. Periesophageal lymphadenopathy. Hepatomegaly with steatosis. Mid small bowel obstruction, transition point in the left lateral abdomen. Small volume ascites. Bladder wall thickening, likely secondary to chronic outlet obstruction from prostatomegaly. Small Bowel X-Ray 01/18/25 15:02 IMPRESSION: 1. Small bowel obstruction. Chest X-Ray 01/24/25 14:53 IMPRESSION: Right PICC line with the tip overlying the right atrium. Cardiomegaly. Minimal opacification in the left lung base. Abdomen X-Ray 01/27/25 06:38 IMPRESSION: 1. Dilated small bowel, likely adynamic ileus. 2. Nasogastric tube tip in the stomach. Labs Labs: Laboratory Results - last 24 hr 01/28/25 01/28/25 01/29/25 15:46 20:39 03:57 WBC 9.3 RBC 4.51 L Hgb 12.2 L Hct 40.0 L MCV 88.7 MCH 27.1 MCHC 30.5 L RDW 13.9 Plt Count 205 MPV 10.4 Immature Gran % (Auto) 0.4 Neut % (Auto) 75.1 H Lymph % (Auto) 12.3 L [place] % (Auto) 9.6 H Eos % (Auto) 2.4 Baso % (Auto) 0.2 Lymph # (Auto) 1.14 [place] # (Auto) 0.9 H Eos # (Auto) 0.2 Baso # (Auto) 0.0 Abs Immat Gran (auto) 0.04 H Absolute Neuts (auto) 7.0 H Absolute Nucleated RBC 0.000 Nucleated RBC % 0.0 Sodium 143 Potassium 4.0 Chloride 104 Carbon Dioxide 29 Anion Gap 10 BUN 45 H Creatinine 1.68 H Estim Creat Clear Calc 41 Estimated GFR 40 L Glucose 136 H POC Capillary Glucose 106 H 138 H Calcium 8.8 Magnesium 2.2 01/29/25 01/29/25 08:09 12:01 WBC RBC Hgb Hct MCV MCH MCHC RDW Plt Count MPV Immature Gran % (Auto) Neut % (Auto) Lymph % (Auto) [place] % (Auto) Eos % (Auto) Baso % (Auto) Lymph # (Auto) [place] # (Auto) Eos # (Auto) Baso # (Auto) Abs Immat Gran (auto) Absolute Neuts (auto) Absolute Nucleated RBC Nucleated RBC % Sodium Potassium Chloride Carbon Dioxide Anion Gap BUN Creatinine Estim Creat Clear Calc Estimated GFR Glucose POC Capillary Glucose 145 H 139 H Calcium Magnesium
[2025-01-29 16:35] LABS: Glucose Point of Care 127 mg/dl (65-105)
[2025-01-29] MEDS: amLODIPine BESYLATE 10 MG TABLET BY MOUTH (17:17)
--- NOTE | 2025-01-29 17:59 | PM.IMPN ---
Progress Note: A&P Assessment and Plan (1) SBO (small bowel obstruction): Code(s): K56.609 - Unspecified intestinal obstruction, unspecified as to partial versus complete obstruction Status: Acute Assessment and Plan: 02/15: Patient was admitted for abdominal pain, small-bowel obstruction on abdominal CT scan -Surgery was consulted, patient was taken for surgery on 01/18/2025 for high-grade small-bowel obstruction secondary to abdominal adhesions, status post exploratory laparotomy with abdominal adhesiolysis. -continue Zosyn per surgery -Patient has developed ileus. Patient has NG tube in place which is on continue suction. bowel rest, NG tube decompression, -patient had a bowel movement. ? Trial of p.o. diet -management per General surgery -continue reglan, Dulcolax suppository has been ordered per surgery -discussed with general surgeon -01/24 started TPN 01/22: Obstructive series indicated Ileus 02/14: CT scan of the abdomen and pelvis showed mid small-bowel obstruction with transition point in the left lateral abdomen, small volume ascites, hepatomegaly with steatosis, bladder wall thickening likely secondary to chronic outlet obstruction prostatomegaly. Ascending aortic aneurysm measuring 5.6 cm, descending thoracic aorta is mildly dilated to 3.1 cm mild esophagitis/gastritis, periesophageal lymphadenopathy. (2) Hypertension: Qualifiers: Hypertension type: primary hypertension Qualified Code(s): I10 - Essential (primary) hypertension Code(s): I10 - Essential (primary) hypertension Status: Acute Assessment and Plan: Patient currently off nicardipine infusion with improvement since he has abdominal aortic aneurysm. Off Cardizem infusion as patient is in sinus rhythm. Continue p.o. metoprolol , Norvasc, lisinopril Increase doxazosin to 8 mg mg Clonidine transdermal patch considering unreliable p.o. absorption (3) Diabetes mellitus with renal manifestation: Code(s): E11.29 - Type 2 diabetes mellitus with other diabetic kidney complication Status: Acute Assessment and Plan: Continue Accu-Cheks and sliding scale insulin Continue Lantus (4) BPH (benign prostatic hyperplasia): Code(s): N40.0 - Benign prostatic hyperplasia without lower urinary tract symptoms Status: Acute Assessment and Plan: Mckinney catheter in place, patient had adequate urine output (5) Atrial fibrillation with RVR: Code(s): I48.91 - Unspecified atrial fibrillation Status: Acute Assessment and Plan: Converted to sinus rhythm. Discontinue Cardizem infusion Continue p.o. metoprolol Systemic anticoagulation is on hold and resumption as per General surgery Aspirin (6) Acute respiratory failure: Code(s): J96.00 - Acute respiratory failure, unspecified whether with hypoxia or hypercapnia Status: Acute Assessment and Plan: Currently on nasal cannula. Likely atelectasis. Continue incentive spirometry. PT OT (7) Delirium: Code(s): R41.0 - Disorientation, unspecified Status: Acute Assessment and Plan: Off Precedex infusion. Improved. Much more alert and oriented. Restraints have been discontinued Sitter at bedside Continue Seroquel (8) Electrolyte abnormality: Code(s): E87.8 - Other disorders of electrolyte and fluid balance, not elsewhere classified Status: Acute Assessment and Plan: Replace low potassium and phos D5 water for hypernatremia (9) Elevated serum creatinine: Code(s): R79.89 - Other specified abnormal findings of blood chemistry Status: Acute Assessment and Plan: Patient was given Lasix yesterday 2 doses and there is elevation of creatinine is CO2 suggestive of contraction alkalosis Hold diuretics and will give some fluids today. Monitor urine output electrolytes and creatinine Plan patient was found to have High-grade small-bowel obstruction secondary to abdominal adhesions was seen by surgery service had exploratory laparotomy, abdominal adhesiolysis on 01/18, however patient became confused removed his IV, and was wondering in the hospital, patient was brought back to the room, patient was aggressive, transferred to ICU for sedation with Precedex, patient is now off Precedex, more alert and eating ice, stats does pass some gas, today patient talking stats feels better, his son is present in the room, patient is clinically improving. on 01/24 patient had been NPO for last seven day, surgeon has started patient has PICC line on TPN, last night patient had two large BM and he is now in IMU, NG tube is out and still some what confused sitter is with him, today patient is more alert, and oriented, no sitter however his family is present in the room, he does stats he does not feel like eating, he had BM and he is passing gas, will do KUB, will monitor further recommendation to follow. possible discharge tomorrow it it is okay with the surgery service. I called patient primary care Alida Dunn ERMA and informed that patient has Ascending aortic aneurysm measuring up to 5.6 cm. Ms Dunn will refer patient to a vascular surgeon and will see patient in her clinic after discharge. DVT prophylaxis: Enoxaparin subcutaneous Stress ulcer prophylaxis: Protonix IV q.12 hours Nutrition: NG tube management as above, npo Code Status: Full code Switched to nasal cannula, incentive spirometry PT OT Subjective Date/time seen: 01/29/25 17:59 Interval history: Patient admitted for treatment of SBO and plan for exploratory laparotomy. Patient still hypertensive will increase IV metoprolol to 5 mg scheduled and schedule his IV hydralazine. Patient refusing NG tube but denies ABD pain, distention slightly improved. Patient reported flatulence but still no BM. H&P-Narrative He presents with a few hours' history of central abdominal pain; it is localized; rated 10 in intensity, aggravated by meals/drinks, alleviated by fasting; associated with bilious but non-bloody emesis, malaise, anorexia, chills and rigors. His last BM was days ago; he denies chest pain, dizziness, LOC, flank pain, dysuria, hematuria or HILL. patient was found to have High-grade small-bowel obstruction secondary to abdominal adhesions was seen by surgery service had exploratory laparotomy, abdominal adhesiolysis on 01/18, however patient became confused removed his IV, and was wondering in the hospital, patient was brought back to the room, patient was aggressive, transferred to ICU for sedation with Precedex, patient is now off Precedex, more alert and eating ice, stats does pass some gas, today patient talking stats feels better, his son is present in the room, patient is clinically improving. on 01/24 patient had been NPO for last seven day, surgeon has started patient has PICC line on TPN, last night patient had two large BM and he is now in IMU, NG tube is out and still some what confused sitter is with him, today patient is more alert, and oriented, no sitter however his family is present in the room, he does stats he does not feel like eating, he had BM and he is passing gas, will do KUB, will monitor further recommendation to follow. possible discharge tomorrow it it is okay with the surgery service. I called patient primary care Alida Dunn ERMA and informed that patient has Ascending aortic aneurysm measuring up to 5.6 cm. Ms Dunn will refer patient to a vascular surgeon and will see patient in her clinic after discharge. Review of Systems Review of Systems: All systems reviewed & are unremarkable except as noted in HPI and below (HPI) Exam Narrative: Patient is comfortable, NAD HEENT: clear LUNGS:CTA ABD: distended Lower extremities: no edema SKIN: nonjaundiced Neuro: Confused Objective Data Vital Signs Vital Signs: Vital Signs - 24 hr 01/28/25 18:00 01/28/25 20:00 01/28/25 20:00 Temperature 37.0 C Pulse Rate 78 76 77 Respiratory Rate 20 20 Blood Pressure 126/71 Pulse Oximetry 94 94 Oxygen Delivery Room Air Fraction of Inspired Oxygen 21 01/28/25 20:00 01/28/25 20:33 01/28/25 22:00 Temperature Pulse Rate 77 78 76 Respiratory Rate Blood Pressure Pulse Oximetry Oxygen Delivery Fraction of Inspired Oxygen 01/28/25 23:44 01/28/25 23:44 01/28/25 23:57 Temperature 37.1 C Pulse Rate 78 78 71 Respiratory Rate 20 18 Blood Pressure 140/74 Pulse Oximetry 94 94 Oxygen Delivery Room Air Fraction of Inspired Oxygen 21 01/29/25 01:52 01/29/25 04:00 01/29/25 04:00 Temperature 36.8 C Pulse Rate 70 77 71 Respiratory Rate 20 20 Blood Pressure 134/79 Pulse Oximetry 94 94 Oxygen Delivery Room Air Fraction of Inspired Oxygen 21 01/29/25 04:00 01/29/25 06:00 01/29/25 08:00 Temperature 37.0 C Pulse Rate 71 78 71 Respiratory Rate 24 H Blood Pressure 120/81 Pulse Oximetry 94 Oxygen Delivery Fraction of Inspired Oxygen 01/29/25 08:00 01/29/25 09:06 01/29/25 10:00 Temperature Pulse Rate 79 73 75 Respiratory Rate Blood Pressure Pulse Oximetry Oxygen Delivery Fraction of Inspired Oxygen 01/29/25 12:00 01/29/25 12:00 01/29/25 14:00 Temperature 36.7 C Pulse Rate 74 71 77 Respiratory Rate 28 H Blood Pressure 132/72 Pulse Oximetry 91 Oxygen Delivery Fraction of Inspired Oxygen 01/29/25 16:00 01/29/25 16:00 Temperature 36.9 C Pulse Rate 77 78 Respiratory Rate 28 H Blood Pressure 132/78 Pulse Oximetry 92 Oxygen Delivery Fraction of Inspired Oxygen Intake/Output Intake/Output: Intake & Output 01/26/25 01/27/25 01/29/25 01/29/25 23:59 23:59 00:59 23:59 Intake Total 2091.6 2770 550 240 Output Total 2300 2500 Balance -208.4 270 550 240 Meds/Results Medications: Active Medications Generic Name Dose Route Start Last Admin Trade Name Freq PRN Reason Stop Dose Admin Acetaminophen 650 mg 01/26/25 23:32 Acetaminophen Elixir 325 Mg/10.15 Ml Udc PO Q4H PRN Mild Pain (1-3) or Fever Hydrocodone Bitart/Acetaminophen 1 tab 01/27/25 09:05 Hydrocodone/Acetaminophen (*Crx) 5-325 Mg Tablet PO Q4H PRN Pain Rated 4-6 Amlodipine Besylate 10 mg 01/27/25 18:00 01/29/25 17:17 Amlodipine Besylate 10 Mg Tablet BY MOUTH 10 mg QPM AUGUSTINE Administration Aspirin 325 mg 01/28/25 08:00 01/29/25 09:06 Aspirin 325 Mg Tablet BY MOUTH 325 mg DAILY@0800 AUGUSTINE Administration Clonidine HCl 1 patch 01/25/25 09:00 01/25/25 09:52 Clonidine 0.1 Mg/24 Hr Patch TRANSDERM 1 patch WEEKLY AUGUSTINE Administration Dextrose 12.5 gm 01/18/25 15:51 Dextrose 50% 25 Gm/50 Ml Syringe IV PUSH PRN PRN Hypoglycemia Protocol Doxazosin Mesylate 8 mg 01/26/25 09:00 01/29/25 09:06 Doxazosin Mesylate 4 Mg Tablet PO 8 mg DAILY AUGUSTINE Administration Enoxaparin Sodium 40 mg 01/19/25 11:45 01/29/25 09:07 Enoxaparin 40 Mg/0.4 Ml Syringe SUB-Q 40 mg DAILY AUGUSTINE Administration Glucagon 1 mg 01/18/25 15:51 Glucagon For Inj 1 Mg Vial IM PRN PRN Hypoglycemia Protocol Glucose 15 gm 01/18/25 15:51 Glucose Oral Gel 15 Gm Of Glucse In 37.5 Gm Tube PO PRN PRN Hypoglycemia Protocol Hydralazine HCl 20 mg 01/22/25 10:25 01/26/25 04:00 Hydralazine Hcl 20 Mg/Ml Vial IV PUSH 20 mg Q4H PRN Administration Blood Pressure - High Dextrose 1,000 mls @ 100 mls/hr 01/18/25 15:51 Dextrose 5% 1,000 Ml IVPB PRN PRN Hypoglycemia Protocol Dextrose 1,000 mls @ 50 mls/hr 01/24/25 11:38 Dextrose 10% IV CONT .Q20H PRN if PN is interrupted Insulin Aspart 3 - 6 units 01/28/25 08:00 01/29/25 17:17 Insulin Aspart (*Bkc) 100 Units/Ml SUB-Q Not Given TIDWM AUGUSTINE Protocol Insulin Glargine 15 units 01/25/25 09:35 01/29/25 09:09 Insulin Glargine (*Bkc) 100 Units/Ml SUB-Q 15 units QAM AUGUSTINE Administration Levothyroxine Sodium 25 mcg 01/24/25 06:30 01/29/25 04:01 Levothyroxine Sodium 25 Mcg Tablet PO 25 mcg DAILY@0630 AUGUSTINE Administration Lidocaine 1 patch 01/19/25 13:35 01/29/25 09:07 Lidocaine 5% Patch TRANSDERM 1 patch DAILY AUGUSTINE Administration Lisinopril 40 mg 01/25/25 09:30 01/29/25 09:06 Lisinopril 20 Mg Tablet PO 40 mg QAM AUGUSTINE Administration Melatonin 3 mg 01/19/25 22:39 01/19/25 23:16 Melatonin 3 Mg Tablet PO 3 mg HS PRN Administration Insomnia Metoprolol Tartrate 25 mg 01/27/25 21:00 01/29/25 09:06 Metoprolol Tartrate 25 Mg Tablet BY MOUTH 25 mg Q12HR AUGUSTINE Administration Morphine Sulfate 4 mg 01/26/25 23:52 Morphine Sulfate (*Crx) 4 Mg/Ml Inj IV PUSH Q4H PRN Pain Rated 7-10 Ondansetron HCl 4 mg 01/17/25 19:07 01/26/25 22:03 Ondansetron Inj 4 Mg/2 Ml Vial IV PUSH 4 mg Q4H PRN Administration Nausea Oxycodone HCl 5 mg 01/27/25 09:05 Oxycodone Hcl (*Crx) 5 Mg Tab Ir PO Q4H PRN Pain Rated 7-10 Pantoprazole Sodium 40 mg 01/28/25 09:00 01/29/25 09:06 Pantoprazole 40 Mg Tablet PO 40 mg QAM AUGUSTINE Administration Quetiapine Fumarate 25 mg 01/21/25 21:00 01/29/25 09:07 Quetiapine Fumarate 25 Mg Tablet PO 25 mg Q12HR AUGUSTINE Administration Sodium Chloride 20 ml 01/24/25 14:41 Central Line Flush IV PUSH PRN PRN after blood draws Sodium Chloride 10 ml 01/24/25 14:41 Central Line Flush IV PUSH PRN PRN with TPN bag changes Sodium Chloride 10 ml 01/24/25 22:00 01/29/25 17:17 Central Line Flush IV PUSH 10 ml Q8HR AUGUSTINE Administration Radiology Results: ITS Impressions Abdomen/Pelvis CT 01/17/25 18:07 IMPRESSION: Ascending aortic aneurysm measuring up to 5.6 cm. The descending thoracic aorta is mildly dilated to 3.1 cm. Consider nonemergent but timely outpatient CT angiography of the chest and appropriate referral for monitoring/potential intervention. Mild esophagitis/gastritis. Periesophageal lymphadenopathy. Hepatomegaly with steatosis. Mid small bowel obstruction, transition point in the left lateral abdomen. Small volume ascites. Bladder wall thickening, likely secondary to chronic outlet obstruction from prostatomegaly. Small Bowel X-Ray 01/18/25 15:02 IMPRESSION: 1. Small bowel obstruction. Chest X-Ray 01/24/25 14:53 IMPRESSION: Right PICC line with the tip overlying the right atrium. Cardiomegaly. Minimal opacification in the left lung base. Labs Labs: Laboratory Results - last 24 hr 01/28/25 01/29/25 01/29/25 20:39 03:57 08:09 WBC 9.3 RBC 4.51 L Hgb 12.2 L Hct 40.0 L MCV 88.7 MCH 27.1 MCHC 30.5 L RDW 13.9 Plt Count 205 MPV 10.4 Immature Gran % (Auto) 0.4 Neut % (Auto) 75.1 H Lymph % (Auto) 12.3 L [place] % (Auto) 9.6 H Eos % (Auto) 2.4 Baso % (Auto) 0.2 Lymph # (Auto) 1.14 [place] # (Auto) 0.9 H Eos # (Auto) 0.2 Baso # (Auto) 0.0 Abs Immat Gran (auto) 0.04 H Absolute Neuts (auto) 7.0 H Absolute Nucleated RBC 0.000 Nucleated RBC % 0.0 Sodium 143 Potassium 4.0 Chloride 104 Carbon Dioxide 29 Anion Gap 10 BUN 45 H Creatinine 1.68 H Estim Creat Clear Calc 41 Estimated GFR 40 L Glucose 136 H POC Capillary Glucose 138 H 145 H Calcium 8.8 Magnesium 2.2 01/29/25 01/29/25 12:01 16:14 WBC RBC Hgb Hct MCV MCH MCHC RDW Plt Count MPV Immature Gran % (Auto) Neut % (Auto) Lymph % (Auto) [place] % (Auto) Eos % (Auto) Baso % (Auto) Lymph # (Auto) [place] # (Auto) Eos # (Auto) Baso # (Auto) Abs Immat Gran (auto) Absolute Neuts (auto) Absolute Nucleated RBC Nucleated RBC % Sodium Potassium Chloride Carbon Dioxide Anion Gap BUN Creatinine Estim Creat Clear Calc Estimated GFR Glucose POC Capillary Glucose 139 H 127 H Calcium Magnesium Quality VTE Prophylaxis VTE prophylaxis: mechanical ordered and pharmacologic ordered
[2025-01-29 21:00] LABS: Glucose Point of Care 144 mg/dl (65-105)
[2025-01-30] VITALS (20 sets, daily range): BP systolic 126–139; BP diastolic 63–74; PULSE 70–84; RESP 20–33; TEMP 36.7–37.6; O2SAT 93–98
[2025-01-30] MEDS: CENTRAL LINE FLUSH 10 ML IV PUSH ×3 (04:40→20:30)
[2025-01-30] MEDS: LEVOTHYROXINE SODIUM 25 MCG TABLET PO (04:40)
[2025-01-30 04:56] LABS: Basophils Percent Auto 0.2 % (0.2-1.2); Eosinophils Absolute Auto 0.1 K/mm3 (0-0.3); Eosinophils Percent Auto 0.7 % (0-4.4); Hematocrit 39.5 % (42.0-52.0); Hemoglobin 12.2 g/dL (14.0-18.0); Immature Granulocyte Absolute 0.06 K/mm3 (0.00-0.031); Immature Granulocyte Percent A 0.7 % (0-0.5); Lymphocytes Absolute Auto 0.67 K/mm3 (0.9-3.2); Lymphocytes Percent Auto 7.3 % (18.3-44.2); Mean Corpuscular HGB Conc 30.9 g/dl (32-36); Mean Corpuscular Hemoglobin 27.6 pg (26-34); Mean Corpuscular Volume 89.4 fl (80-100); Mean Platelet Volume 10.4 fl (7.4-10.4); Monocytes Absolute Auto 0.8 K/mm3 (0.1-0.6); Monocytes Percent Auto 8.3 % (2.6-8.5); Neutrophils Absolute Auto 7.6 K/mm3 (1.3-6.7); Neutrophils Percent Auto 82.8 % (45.5-73.1); Platelet Count Result 199 k/mm3 (150-375); Red Blood Count 4.42 M/mm3 (4.6-6.20); White Blood Count 9.2 K/mm3 (4.5-10.0)
[2025-01-30 05:08] LABS: Anion Gap 9 mmol/L (4-12); Blood Urea Nitrogen 44 mg/dL (9-20); Calcium 8.5 mg/dL (8.4-10.2); Carbon Dioxide 29 mmol/L (22-30); Chloride 105 mmol/L (98-107); Estimated CRCL calculation 50 ml/min; Estimated Glomerular Filt Rate 51; Glucose 156 mg/dL (65-110); Magnesium 2.1 mg/dL (1.6-2.3); Potassium 4.2 mmol/L (3.4-5.0); Sodium 143 mmol/L (137-145)
[2025-01-30 07:50] LABS: Glucose Point of Care 150 mg/dl (65-105)
[2025-01-30] MEDS: PANTOPRAZOLE 40 MG TABLET PO (09:01)
[2025-01-30] MEDS: ENOXAPARIN 40 MG/0.4 ML SYRINGE SUB-Q (09:01)
[2025-01-30] MEDS: LIDOCAINE 5% PATCH 1 PATCH TRANSDERM (09:01)
[2025-01-30] MEDS: DOXAZOSIN MESYLATE 4 MG TABLET 8 MG PO (09:01)
[2025-01-30] MEDS: lisinopriL 20 MG TABLET 40 MG PO (09:01)
[2025-01-30] MEDS: METOPROLOL TARTRATE 25 MG TABLET BY MOUTH (09:02)
[2025-01-30] MEDS: QUEtiapine FUMARATE 25 MG TABLET PO (09:02)
[2025-01-30] MEDS: ASPIRIN 325 MG TABLET BY MOUTH (09:02)
[2025-01-30] MEDS: INSULIN GLARGINE (*BKC) 100 UNITS/ML 15 UNITS SUB-Q (09:03)
[2025-01-30 09:43] LABS: Alveolar/Arterial O2 Gradient 51.5 mmHg; Base Excess ABG 1.2 mEq/l (+/-2.0); Fractional Inspired Oxygen 28 %; HCO3 ABG 28.3 mEq/l (22.0-26.0); Oxygen Content ABG 17.1 %vol (16.0-22.0); Oxygen Saturation ABG 95.1 % (95.0-100.0); PO2 ABG 82.1 mmHg (80.0-100.0); PO2 FiO2 Ratio Arterial Blood 2.93 %; Total Hemoglobin 12.9 g/dL (12.0-18.0); pH ABG 7.322 (7.350-7.450)
[2025-01-30 09:45] LABS: Site Drawn LEFT RADIAL
[2025-01-30 09:47] LABS: Device NASAL CANNULA
[2025-01-30 11:35] LABS: Glucose Point of Care 183 mg/dl (65-105)
--- NOTE | 2025-01-30 11:47 | PCPTNOTE ---
Attempted to see patient for PT, however patient unable to be seen for PT this date. Per RN: patient is on continuous Bipap due to decrease O2 SATs and not appropriate for PT at this time.
--- NOTE | 2025-01-30 14:14 | WPDPN ---
Progress Note: A&P Assessment and Plan (1) Adynamic ileus: Code(s): K56.0 - Paralytic ileus Status: Acute Assessment and Plan: Patient is now having some pulmonary issues causing him to be on BiPAP. V/Q study is been ordered by primary service. Patient has been on SCDs and subcu heparin for DVT prophylaxis. His abdomen is very distended again likely recurrent ileus. KUB today shows a large stomach bubble with dilated loops of small bowel. Will place an NG tube to low continuous suction. May need to restart TPN tomorrow. He still has a PICC line placed. Subjective Date/time seen: 01/30/25 14:14 Interval history: Patient is currently on BiPAP. He was found to be less responsive last evening and had a pCO2 of greater than 50. He low more responsive this morning. His abdomen is much more distended again. He was on a low residual diet and tolerated that well having bowel movements up until yesterday. Exam GI: Other: The abdomen is much more distended today. Midline incision is intact. No redness. Virgie in place. No drainage. Objective Data Vital Signs Vital Signs: Vital Signs - 24 hr 01/29/25 16:00 01/29/25 16:00 01/29/25 18:00 Temperature 36.9 C Pulse Rate 77 78 71 Respiratory Rate 28 H Blood Pressure 132/78 Pulse Oximetry 92 Oxygen Delivery Oxygen Flow Rate Fraction of Inspired Oxygen 01/29/25 20:00 01/29/25 20:00 01/29/25 20:00 Temperature 36.1 C L Pulse Rate 75 72 72 Respiratory Rate 20 20 Blood Pressure 127/67 Pulse Oximetry 94 94 Oxygen Delivery Room Air Oxygen Flow Rate Fraction of Inspired Oxygen 01/29/25 21:03 01/29/25 22:00 01/29/25 23:58 Temperature 36.4 C Pulse Rate 78 76 81 Respiratory Rate 20 Blood Pressure 133/73 Pulse Oximetry 98 Oxygen Delivery Oxygen Flow Rate Fraction of Inspired Oxygen 01/30/25 00:00 01/30/25 00:00 01/30/25 02:00 Temperature Pulse Rate 80 80 84 Respiratory Rate 20 Blood Pressure Pulse Oximetry 98 Oxygen Delivery Room Air Oxygen Flow Rate Fraction of Inspired Oxygen 01/30/25 04:00 01/30/25 04:00 01/30/25 04:00 Temperature 37.0 C Pulse Rate 78 73 73 Respiratory Rate 24 H 24 H Blood Pressure 133/67 Pulse Oximetry 93 93 Oxygen Delivery Nasal Cannula Oxygen Flow Rate 2 Fraction of Inspired Oxygen 21 01/30/25 06:00 01/30/25 07:39 01/30/25 08:00 Temperature 36.8 C Pulse Rate 78 78 74 Respiratory Rate 20 Blood Pressure 129/63 Pulse Oximetry 95 Oxygen Delivery Oxygen Flow Rate Fraction of Inspired Oxygen 01/30/25 09:02 01/30/25 09:14 01/30/25 10:00 Temperature Pulse Rate 79 77 Respiratory Rate Blood Pressure Pulse Oximetry 93 Oxygen Delivery Nasal Cannula Oxygen Flow Rate 2 Fraction of Inspired Oxygen 01/30/25 10:07 01/30/25 11:30 01/30/25 12:00 Temperature 37.6 C H Pulse Rate 71 76 76 Respiratory Rate 24 H 33 H Blood Pressure 139/68 Pulse Oximetry 96 93 Oxygen Delivery BiPAP Oxygen Flow Rate Fraction of Inspired Oxygen Intake/Output Intake/Output: Intake & Output 01/27/25 01/29/25 01/29/25 01/30/25 23:59 00:59 23:59 23:59 Intake Total 2770 550 540 690 Output Total 2500 Balance 270 550 540 690 Meds/Results Medications: Active Medications Generic Name Dose Route Start Last Admin Trade Name Freq PRN Reason Stop Dose Admin Acetaminophen 650 mg 01/30/25 12:41 Acetaminophen 325 Mg Tablet PO Q4H PRN Mild Pain (1-3) or Fever Hydrocodone Bitart/Acetaminophen 1 tab 01/27/25 09:05 Hydrocodone/Acetaminophen (*Crx) 5-325 Mg Tablet PO Q4H PRN Pain Rated 4-6 Amlodipine Besylate 10 mg 01/27/25 18:00 01/29/25 17:17 Amlodipine Besylate 10 Mg Tablet BY MOUTH 10 mg QPM AUGUSTINE Administration Aspirin 325 mg 01/28/25 08:00 01/30/25 09:02 Aspirin 325 Mg Tablet BY MOUTH 325 mg DAILY@0800 AUGUSTINE Administration Clonidine HCl 1 patch 01/25/25 09:00 01/25/25 09:52 Clonidine 0.1 Mg/24 Hr Patch TRANSDERM 1 patch WEEKLY AUGUSTINE Administration Dextrose 12.5 gm 01/18/25 15:51 Dextrose 50% 25 Gm/50 Ml Syringe IV PUSH PRN PRN Hypoglycemia Protocol Doxazosin Mesylate 8 mg 01/26/25 09:00 01/30/25 09:01 Doxazosin Mesylate 4 Mg Tablet PO 8 mg DAILY AUGUSTINE Administration Enoxaparin Sodium 40 mg 01/19/25 11:45 01/30/25 09:01 Enoxaparin 40 Mg/0.4 Ml Syringe SUB-Q 40 mg DAILY AUGUSTINE Administration Glucagon 1 mg 01/18/25 15:51 Glucagon For Inj 1 Mg Vial IM PRN PRN Hypoglycemia Protocol Glucose 15 gm 01/18/25 15:51 Glucose Oral Gel 15 Gm Of Glucse In 37.5 Gm Tube PO PRN PRN Hypoglycemia Protocol Hydralazine HCl 20 mg 01/22/25 10:25 01/26/25 04:00 Hydralazine Hcl 20 Mg/Ml Vial IV PUSH 20 mg Q4H PRN Administration Blood Pressure - High Dextrose 1,000 mls @ 100 mls/hr 01/18/25 15:51 Dextrose 5% 1,000 Ml IVPB PRN PRN Hypoglycemia Protocol Insulin Aspart 3 - 6 units 01/28/25 08:00 01/30/25 12:18 Insulin Aspart (*Bkc) 100 Units/Ml SUB-Q Not Given TIDWM AUGUSTINE Protocol Insulin Glargine 15 units 01/25/25 09:35 01/30/25 09:03 Insulin Glargine (*Bkc) 100 Units/Ml SUB-Q 15 units QAM AUGUSTINE Administration Levothyroxine Sodium 25 mcg 01/24/25 06:30 01/30/25 04:40 Levothyroxine Sodium 25 Mcg Tablet PO 25 mcg DAILY@0630 AUGUSTINE Administration Lidocaine 1 patch 01/19/25 13:35 01/30/25 09:01 Lidocaine 5% Patch TRANSDERM 1 patch DAILY AUGUSTINE Administration Lisinopril 40 mg 01/25/25 09:30 01/30/25 09:01 Lisinopril 20 Mg Tablet PO 40 mg QAM AUGUSTINE Administration Melatonin 3 mg 01/19/25 22:39 01/19/25 23:16 Melatonin 3 Mg Tablet PO 3 mg HS PRN Administration Insomnia Metoprolol Tartrate 25 mg 01/27/25 21:00 01/30/25 09:02 Metoprolol Tartrate 25 Mg Tablet BY MOUTH 25 mg Q12HR AUGUSTINE Administration Morphine Sulfate 4 mg 01/26/25 23:52 Morphine Sulfate (*Crx) 4 Mg/Ml Inj IV PUSH Q4H PRN Pain Rated 7-10 Ondansetron HCl 4 mg 01/17/25 19:07 01/26/25 22:03 Ondansetron Inj 4 Mg/2 Ml Vial IV PUSH 4 mg Q4H PRN Administration Nausea Oxycodone HCl 5 mg 01/27/25 09:05 Oxycodone Hcl (*Crx) 5 Mg Tab Ir PO Q4H PRN Pain Rated 7-10 Pantoprazole Sodium 40 mg 01/28/25 09:00 01/30/25 09:01 Pantoprazole 40 Mg Tablet PO 40 mg QAM AUGUSTINE Administration Quetiapine Fumarate 25 mg 01/21/25 21:00 01/30/25 09:02 Quetiapine Fumarate 25 Mg Tablet PO 25 mg Q12HR AUGUSTINE Administration Sodium Chloride 20 ml 01/24/25 14:41 Central Line Flush IV PUSH PRN PRN after blood draws Sodium Chloride 10 ml 01/24/25 14:41 Central Line Flush IV PUSH PRN PRN with TPN bag changes Sodium Chloride 10 ml 01/24/25 22:00 01/30/25 04:40 Central Line Flush IV PUSH 10 ml Q8HR AUGUSTINE Administration Radiology Results: ITS Impressions Abdomen/Pelvis CT 01/17/25 18:07 IMPRESSION: Ascending aortic aneurysm measuring up to 5.6 cm. The descending thoracic aorta is mildly dilated to 3.1 cm. Consider nonemergent but timely outpatient CT angiography of the chest and appropriate referral for monitoring/potential intervention. Mild esophagitis/gastritis. Periesophageal lymphadenopathy. Hepatomegaly with steatosis. Mid small bowel obstruction, transition point in the left lateral abdomen. Small volume ascites. Bladder wall thickening, likely secondary to chronic outlet obstruction from prostatomegaly. Small Bowel X-Ray 01/18/25 15:02 IMPRESSION: 1. Small bowel obstruction. Chest X-Ray 01/24/25 14:53 IMPRESSION: Right PICC line with the tip overlying the right atrium. Cardiomegaly. Minimal opacification in the left lung base. Labs Labs: Laboratory Results - last 24 hr 01/29/25 01/29/25 01/30/25 16:14 20:22 04:38 WBC 9.2 RBC 4.42 L Hgb 12.2 L Hct 39.5 L MCV 89.4 MCH 27.6 MCHC 30.9 L RDW 14.0 Plt Count 199 MPV 10.4 Immature Gran % (Auto) 0.7 H Neut % (Auto) 82.8 H Lymph % (Auto) 7.3 L [place] % (Auto) 8.3 Eos % (Auto) 0.7 Baso % (Auto) 0.2 Lymph # (Auto) 0.67 L [place] # (Auto) 0.8 H Eos # (Auto) 0.1 Baso # (Auto) 0.0 Abs Immat Gran (auto) 0.06 H Absolute Neuts (auto) 7.6 H Absolute Nucleated RBC 0.000 Nucleated RBC % 0.0 Puncture Site ABG pH ABG pCO2 ABG pO2 ABG PO2/FiO2 Ratio ABG HCO3 ABG O2 Saturation ABG O2 Content ABG Base Excess A-a Gradient Oxyhemoglobin Total Hemoglobin O2 Delivery Device O2 Liters/Min FiO2 Sodium 143 Potassium 4.2 Chloride 105 Carbon Dioxide 29 Anion Gap 9 BUN 44 H Creatinine 1.35 H Estim Creat Clear Calc 50 Estimated GFR 51 L Glucose 156 H POC Capillary Glucose 127 H 144 H Calcium 8.5 Magnesium 2.1 01/30/25 01/30/25 01/30/25 07:43 09:40 11:33 WBC RBC Hgb Hct MCV MCH MCHC RDW Plt Count MPV Immature Gran % (Auto) Neut % (Auto) Lymph % (Auto) [place] % (Auto) Eos % (Auto) Baso % (Auto) Lymph # (Auto) [place] # (Auto) Eos # (Auto) Baso # (Auto) Abs Immat Gran (auto) Absolute Neuts (auto) Absolute Nucleated RBC Nucleated RBC % Puncture Site Left radial ABG pH 7.322 L ABG pCO2 56.0 H ABG pO2 82.1 ABG PO2/FiO2 Ratio 2.93 ABG HCO3 28.3 H ABG O2 Saturation 95.1 ABG O2 Content 17.1 ABG Base Excess 1.2 A-a Gradient 51.5 Oxyhemoglobin 94.0 Total Hemoglobin 12.9 O2 Delivery Device Nasal cannula O2 Liters/Min 2.0 FiO2 28 Sodium Potassium Chloride Carbon Dioxide Anion Gap BUN Creatinine Estim Creat Clear Calc Estimated GFR Glucose POC Capillary Glucose 150 H 183 H Calcium Magnesium
[2025-01-30 15:45] LABS: Glucose Point of Care 152 mg/dl (65-105)
--- NOTE | 2025-01-30 17:02 | PM.IMPN ---
Progress Note: A&P Assessment and Plan (1) SBO (small bowel obstruction): Code(s): K56.609 - Unspecified intestinal obstruction, unspecified as to partial versus complete obstruction Status: Acute Assessment and Plan: 02/15: Patient was admitted for abdominal pain, small-bowel obstruction on abdominal CT scan -Surgery was consulted, patient was taken for surgery on 01/18/2025 for high-grade small-bowel obstruction secondary to abdominal adhesions, status post exploratory laparotomy with abdominal adhesiolysis. -continue Zosyn per surgery -Patient has developed ileus. Patient has NG tube in place which is on continue suction. bowel rest, NG tube decompression, -patient had a bowel movement. ? Trial of p.o. diet -management per General surgery -continue reglan, Dulcolax suppository has been ordered per surgery -discussed with general surgeon -01/24 started TPN 01/22: Obstructive series indicated Ileus 02/14: CT scan of the abdomen and pelvis showed mid small-bowel obstruction with transition point in the left lateral abdomen, small volume ascites, hepatomegaly with steatosis, bladder wall thickening likely secondary to chronic outlet obstruction prostatomegaly. Ascending aortic aneurysm measuring 5.6 cm, descending thoracic aorta is mildly dilated to 3.1 cm mild esophagitis/gastritis, periesophageal lymphadenopathy. (2) Hypertension: Qualifiers: Hypertension type: primary hypertension Qualified Code(s): I10 - Essential (primary) hypertension Code(s): I10 - Essential (primary) hypertension Status: Acute Assessment and Plan: Patient currently off nicardipine infusion with improvement since he has abdominal aortic aneurysm. Off Cardizem infusion as patient is in sinus rhythm. Continue p.o. metoprolol , Norvasc, lisinopril Increase doxazosin to 8 mg mg Clonidine transdermal patch considering unreliable p.o. absorption (3) Diabetes mellitus with renal manifestation: Code(s): E11.29 - Type 2 diabetes mellitus with other diabetic kidney complication Status: Acute Assessment and Plan: Continue Accu-Cheks and sliding scale insulin Continue Lantus (4) BPH (benign prostatic hyperplasia): Code(s): N40.0 - Benign prostatic hyperplasia without lower urinary tract symptoms Status: Acute Assessment and Plan: Mckinney catheter in place, patient had adequate urine output (5) Atrial fibrillation with RVR: Code(s): I48.91 - Unspecified atrial fibrillation Status: Acute Assessment and Plan: Converted to sinus rhythm. Discontinue Cardizem infusion Continue p.o. metoprolol Systemic anticoagulation is on hold and resumption as per General surgery Aspirin (6) Acute respiratory failure: Code(s): J96.00 - Acute respiratory failure, unspecified whether with hypoxia or hypercapnia Status: Acute Assessment and Plan: Currently on nasal cannula. Likely atelectasis. Continue incentive spirometry. PT OT (7) Delirium: Code(s): R41.0 - Disorientation, unspecified Status: Acute Assessment and Plan: Off Precedex infusion. Improved. Much more alert and oriented. Restraints have been discontinued Sitter at bedside Continue Seroquel (8) Electrolyte abnormality: Code(s): E87.8 - Other disorders of electrolyte and fluid balance, not elsewhere classified Status: Acute Assessment and Plan: Replace low potassium and phos D5 water for hypernatremia (9) Elevated serum creatinine: Code(s): R79.89 - Other specified abnormal findings of blood chemistry Status: Acute Assessment and Plan: Patient was given Lasix yesterday 2 doses and there is elevation of creatinine is CO2 suggestive of contraction alkalosis Hold diuretics and will give some fluids today. Monitor urine output electrolytes and creatinine Plan patient was found to have High-grade small-bowel obstruction secondary to abdominal adhesions was seen by surgery service had exploratory laparotomy, abdominal adhesiolysis on 01/18, however patient became confused removed his IV, and was wondering in the hospital, patient was brought back to the room, patient was aggressive, transferred to ICU for sedation with Precedex, patient is now off Precedex, more alert and eating ice, stats does pass some gas, today patient talking stats feels better, his son is present in the room, patient is clinically improving. on 01/24 patient had been NPO for last seven day, surgeon has started patient has PICC line on TPN, last night patient had two large BM and he is now in IMU, NG tube is out and still some what confused sitter is with him, today patient is more alert, and oriented, no sitter however his family is present in the room, he does stats he does not feel like eating, he had BM and he is passing gas, will do KUB, will monitor further recommendation to follow. possible discharge tomorrow it it is okay with the surgery service. I called patient primary care Alida Dunn APRN and informed that patient has Ascending aortic aneurysm measuring up to 5.6 cm. Ms Dunn will refer patient to a vascular surgeon and will see patient in her clinic after discharge. today patient complains not feeling well, passing very little, poor appetite, patient had KUB showed partial obstruction, surgery service, reinserted NG tube, will monitor. DVT prophylaxis: Enoxaparin subcutaneous Stress ulcer prophylaxis: Protonix IV q.12 hours Nutrition: NG tube management as above, npo Code Status: Full code Switched to nasal cannula, incentive spirometry PT OT Subjective Date/time seen: 01/30/25 17:02 Interval history: Patient admitted for treatment of SBO and plan for exploratory laparotomy. Patient still hypertensive will increase IV metoprolol to 5 mg scheduled and schedule his IV hydralazine. Patient refusing NG tube but denies ABD pain, distention slightly improved. Patient reported flatulence but still no BM. H&P-Narrative He presents with a few hours' history of central abdominal pain; it is localized; rated 10 in intensity, aggravated by meals/drinks, alleviated by fasting; associated with bilious but non-bloody emesis, malaise, anorexia, chills and rigors. His last BM was days ago; he denies chest pain, dizziness, LOC, flank pain, dysuria, hematuria or HILL. patient was found to have High-grade small-bowel obstruction secondary to abdominal adhesions was seen by surgery service had exploratory laparotomy, abdominal adhesiolysis on 01/18, however patient became confused removed his IV, and was wondering in the hospital, patient was brought back to the room, patient was aggressive, transferred to ICU for sedation with Precedex, patient is now off Precedex, more alert and eating ice, stats does pass some gas, today patient talking stats feels better, his son is present in the room, patient is clinically improving. on 01/24 patient had been NPO for last seven day, surgeon has started patient has PICC line on TPN, last night patient had two large BM and he is now in IMU, NG tube is out and still some what confused sitter is with him, today patient is more alert, and oriented, no sitter however his family is present in the room, he does stats he does not feel like eating, he had BM and he is passing gas, will do KUB, will monitor further recommendation to follow. possible discharge tomorrow it it is okay with the surgery service. I called patient primary care Alida Dunn ERMA and informed that patient has Ascending aortic aneurysm measuring up to 5.6 cm. Ms Dunn will refer patient to a vascular surgeon and will see patient in her clinic after discharge. today patient complains not feeling well, passing very little, poor appetite, patient had KUB showed partial obstruction, surgery service, reinserted NG tube, will monitor. Review of Systems Review of Systems: All systems reviewed & are unremarkable except as noted in HPI and below (HPI) Exam Narrative: Patient is comfortable, NAD HEENT: NG tube in place LUNGS:CTA ABD: distended Lower extremities: no edema SKIN: nonjaundiced Neuro: Confused Objective Data Vital Signs Vital Signs: Vital Signs - 24 hr 01/29/25 18:00 01/29/25 20:00 01/29/25 20:00 Temperature 36.1 C L Pulse Rate 71 75 72 Respiratory Rate 20 20 Blood Pressure 127/67 Pulse Oximetry 94 94 Oxygen Delivery Room Air Oxygen Flow Rate Fraction of Inspired Oxygen 01/29/25 20:00 01/29/25 21:03 01/29/25 22:00 Temperature Pulse Rate 72 78 76 Respiratory Rate Blood Pressure Pulse Oximetry Oxygen Delivery Oxygen Flow Rate Fraction of Inspired Oxygen 01/29/25 23:58 01/30/25 00:00 01/30/25 00:00 Temperature 36.4 C Pulse Rate 81 80 80 Respiratory Rate 20 20 Blood Pressure 133/73 Pulse Oximetry 98 98 Oxygen Delivery Room Air Oxygen Flow Rate Fraction of Inspired Oxygen 01/30/25 02:00 01/30/25 04:00 01/30/25 04:00 Temperature 37.0 C Pulse Rate 84 78 73 Respiratory Rate 24 H 24 H Blood Pressure 133/67 Pulse Oximetry 93 93 Oxygen Delivery Nasal Cannula Oxygen Flow Rate 2 Fraction of Inspired Oxygen 01/30/25 04:00 01/30/25 06:00 01/30/25 07:39 Temperature 36.8 C Pulse Rate 73 78 78 Respiratory Rate 20 Blood Pressure 129/63 Pulse Oximetry 95 Oxygen Delivery Oxygen Flow Rate Fraction of Inspired Oxygen 01/30/25 08:00 01/30/25 09:02 01/30/25 09:14 Temperature Pulse Rate 74 79 Respiratory Rate Blood Pressure Pulse Oximetry 93 Oxygen Delivery Nasal Cannula Oxygen Flow Rate 2 Fraction of Inspired Oxygen 01/30/25 10:00 01/30/25 10:07 01/30/25 11:30 Temperature 37.6 C H Pulse Rate 77 71 76 Respiratory Rate 24 H 33 H Blood Pressure 139/68 Pulse Oximetry 96 93 Oxygen Delivery BiPAP Oxygen Flow Rate Fraction of Inspired Oxygen 01/30/25 12:00 01/30/25 15:37 Temperature 37.4 C Pulse Rate 76 84 Respiratory Rate 30 H Blood Pressure 137/69 Pulse Oximetry 94 Oxygen Delivery Oxygen Flow Rate Fraction of Inspired Oxygen Intake/Output Intake/Output: Intake & Output 01/27/25 01/29/25 01/29/25 01/30/25 23:59 00:59 23:59 23:59 Intake Total 2770 550 540 690 Output Total 2500 1100 Balance 270 550 540 -410 Meds/Results Medications: Active Medications Generic Name Dose Route Start Last Admin Trade Name Freq PRN Reason Stop Dose Admin Acetaminophen 650 mg 01/30/25 12:41 Acetaminophen 325 Mg Tablet PO Q4H PRN Mild Pain (1-3) or Fever Hydrocodone Bitart/Acetaminophen 1 tab 01/27/25 09:05 Hydrocodone/Acetaminophen (*Crx) 5-325 Mg Tablet PO Q4H PRN Pain Rated 4-6 Amlodipine Besylate 10 mg 01/27/25 18:00 01/30/25 16:38 Amlodipine Besylate 10 Mg Tablet BY MOUTH Not Given QPM [facility] Aspirin 325 mg 01/28/25 08:00 01/30/25 09:02 Aspirin 325 Mg Tablet BY MOUTH 325 mg DAILY@0800 A[facility]INE Administration Clonidine HCl 1 patch 01/25/25 09:00 01/25/25 09:52 Clonidine 0.1 Mg/24 Hr Patch TRANSDERM 1 patch WEEKLY A[facility]INE Administration Dextrose 12.5 gm 01/18/25 15:51 Dextrose 50% 25 Gm/50 Ml Syringe IV PUSH PRN PRN Hypoglycemia Protocol Doxazosin Mesylate 8 mg 01/26/25 09:00 01/30/25 09:01 Doxazosin Mesylate 4 Mg Tablet PO 8 mg DAILY [facility] Administration Enoxaparin Sodium 40 mg 01/19/25 11:45 01/30/25 09:01 Enoxaparin 40 Mg/0.4 Ml Syringe SUB-Q 40 mg DAILY [facility] Administration Glucagon 1 mg 01/18/25 15:51 Glucagon For Inj 1 Mg Vial IM PRN PRN Hypoglycemia Protocol Glucose 15 gm 01/18/25 15:51 Glucose Oral Gel 15 Gm Of Glucse In 37.5 Gm Tube PO PRN PRN Hypoglycemia Protocol Hydralazine HCl 20 mg 01/22/25 10:25 01/26/25 04:00 Hydralazine Hcl 20 Mg/Ml Vial IV PUSH 20 mg Q4H PRN Administration Blood Pressure - High Hydralazine HCl 10 mg 01/30/25 16:37 Hydralazine Hcl 20 Mg/Ml Vial IV PUSH Q8H PRN Blood Pressure - High Dextrose 1,000 mls @ 100 mls/hr 01/18/25 15:51 Dextrose 5% 1,000 Ml IVPB PRN PRN Hypoglycemia Protocol Insulin Aspart 3 - 6 units 01/28/25 08:00 01/30/25 16:06 Insulin Aspart (*Bkc) 100 Units/Ml SUB-Q Not Given TIDWM AUG[facility]INE Protocol Insulin Glargine 15 units 01/25/25 09:35 01/30/25 09:03 Insulin Glargine (*Bkc) 100 Units/Ml SUB-Q 15 units QAM [facility] Administration Levothyroxine Sodium 25 mcg 01/24/25 06:30 01/30/25 04:40 Levothyroxine Sodium 25 Mcg Tablet PO 25 mcg DAILY@0630 A[facility]INE Administration Lidocaine 1 patch 01/19/25 13:35 01/30/25 09:01 Lidocaine 5% Patch TRANSDERM 1 patch DAILY [facility] Administration Lisinopril 40 mg 01/25/25 09:30 01/30/25 09:01 Lisinopril 20 Mg Tablet PO 40 mg QAM [facility] Administration Melatonin 3 mg 01/19/25 22:39 01/19/25 23:16 Melatonin 3 Mg Tablet PO 3 mg HS PRN Administration Insomnia Metoprolol Tartrate 25 mg 01/27/25 21:00 01/30/25 16:38 Metoprolol Tartrate 25 Mg Tablet BY MOUTH Not Given Q12HR [facility] Morphine Sulfate 4 mg 01/26/25 23:52 Morphine Sulfate (*Crx) 4 Mg/Ml Inj IV PUSH Q4H PRN Pain Rated 7-10 Morphine Sulfate 2 mg 01/30/25 16:38 Morphine Sulfate (*Crx) 2 Mg/Ml Inj IV PUSH Q4H PRN Pain Rated 7-10 Ondansetron HCl 4 mg 01/17/25 19:07 01/26/25 22:03 Ondansetron Inj 4 Mg/2 Ml Vial IV PUSH 4 mg Q4H PRN Administration Nausea Oxycodone HCl 5 mg 01/27/25 09:05 Oxycodone Hcl (*Crx) 5 Mg Tab Ir PO Q4H PRN Pain Rated 7-10 Pantoprazole Sodium 40 mg 01/28/25 09:00 01/30/25 09:01 Pantoprazole 40 Mg Tablet PO 40 mg QAM [facility]INE Administration Sodium Chloride 20 ml 01/24/25 14:41 Central Line Flush IV PUSH PRN PRN after blood draws Sodium Chloride 10 ml 01/24/25 14:41 Central Line Flush IV PUSH PRN PRN with TPN bag changes Sodium Chloride 10 ml 01/24/25 22:00 01/30/25 16:39 Central Line Flush IV PUSH 10 ml Q8HR [facility] Administration Radiology Results: ITS Impressions Abdomen/Pelvis CT 01/17/25 18:07 IMPRESSION: Ascending aortic aneurysm measuring up to 5.6 cm. The descending thoracic aorta is mildly dilated to 3.1 cm. Consider nonemergent but timely outpatient CT angiography of the chest and appropriate referral for monitoring/potential intervention. Mild esophagitis/gastritis. Periesophageal lymphadenopathy. Hepatomegaly with steatosis. Mid small bowel obstruction, transition point in the left lateral abdomen. Small volume ascites. Bladder wall thickening, likely secondary to chronic outlet obstruction from prostatomegaly. Small Bowel X-Ray 01/18/25 15:02 IMPRESSION: 1. Small bowel obstruction. Chest X-Ray 01/24/25 14:53 IMPRESSION: Right PICC line with the tip overlying the right atrium. Cardiomegaly. Minimal opacification in the left lung base. Abdomen X-Ray 01/30/25 14:53 IMPRESSION: 1. Nasogastric tube tip in the stomach. 2. Dilated small bowel, likely adynamic ileus given the recent surgery. Labs Labs: Laboratory Results - last 24 hr 01/29/25 01/30/25 01/30/25 20:22 04:38 07:43 WBC 9.2 RBC 4.42 L Hgb 12.2 L Hct 39.5 L MCV 89.4 MCH 27.6 MCHC 30.9 L RDW 14.0 Plt Count 199 MPV 10.4 Immature Gran % (Auto) 0.7 H Neut % (Auto) 82.8 H Lymph % (Auto) 7.3 L [place] % (Auto) 8.3 Eos % (Auto) 0.7 Baso % (Auto) 0.2 Lymph # (Auto) 0.67 L [place] # (Auto) 0.8 H Eos # (Auto) 0.1 Baso # (Auto) 0.0 Abs Immat Gran (auto) 0.06 H Absolute Neuts (auto) 7.6 H Absolute Nucleated RBC 0.000 Nucleated RBC % 0.0 Puncture Site ABG pH ABG pCO2 ABG pO2 ABG PO2/FiO2 Ratio ABG HCO3 ABG O2 Saturation ABG O2 Content ABG Base Excess A-a Gradient Oxyhemoglobin Total Hemoglobin O2 Delivery Device O2 Liters/Min FiO2 Sodium 143 Potassium 4.2 Chloride 105 Carbon Dioxide 29 Anion Gap 9 BUN 44 H Creatinine 1.35 H Estim Creat Clear Calc 50 Estimated GFR 51 L Glucose 156 H POC Capillary Glucose 144 H 150 H Calcium 8.5 Magnesium 2.1 01/30/25 01/30/25 01/30/25 09:40 11:33 15:38 WBC RBC Hgb Hct MCV MCH MCHC RDW Plt Count MPV Immature Gran % (Auto) Neut % (Auto) Lymph % (Auto) [place] % (Auto) Eos % (Auto) Baso % (Auto) Lymph # (Auto) [place] # (Auto) Eos # (Auto) Baso # (Auto) Abs Immat Gran (auto) Absolute Neuts (auto) Absolute Nucleated RBC Nucleated RBC % Puncture Site Left radial ABG pH 7.322 L ABG pCO2 56.0 H ABG pO2 82.1 ABG PO2/FiO2 Ratio 2.93 ABG HCO3 28.3 H ABG O2 Saturation 95.1 ABG O2 Content 17.1 ABG Base Excess 1.2 A-a Gradient 51.5 Oxyhemoglobin 94.0 Total Hemoglobin 12.9 O2 Delivery Device Nasal cannula O2 Liters/Min 2.0 FiO2 28 Sodium Potassium Chloride Carbon Dioxide Anion Gap BUN Creatinine Estim Creat Clear Calc Estimated GFR Glucose POC Capillary Glucose 183 H 152 H Calcium Magnesium Quality VTE Prophylaxis VTE prophylaxis: mechanical ordered and pharmacologic ordered
[2025-01-30 20:48] LABS: Anion Gap 6 mmol/L (4-12); Blood Urea Nitrogen 47 mg/dL (9-20); Calcium 8.2 mg/dL (8.4-10.2); Carbon Dioxide 32 mmol/L (22-30); Chloride 107 mmol/L (98-107); Estimated CRCL calculation 45 ml/min; Estimated Glomerular Filt Rate 44; Glucose 114 mg/dL (65-110); Potassium 3.9 mmol/L (3.4-5.0); Sodium 145 mmol/L (137-145)
[2025-01-30 21:11] LABS: Glucose Point of Care 113 mg/dl (65-105)
[2025-01-30] MEDS: MORPHINE SULFATE (*CRX) 2 MG/ML INJ IV PUSH (22:49)
[2025-01-31] VITALS (17 sets, daily range): BP systolic 98–155; BP diastolic 50–75; PULSE 65–82; RESP 16–30; TEMP 36.7–36.9; O2SAT 94–99
[2025-01-31] MEDS: CENTRAL LINE FLUSH 10 ML IV PUSH ×3 (04:32→22:00)
[2025-01-31 04:38] LABS: Anion Gap 7 mmol/L (4-12); Blood Urea Nitrogen 44 mg/dL (9-20); Calcium 8.1 mg/dL (8.4-10.2); Carbon Dioxide 31 mmol/L (22-30); Chloride 108 mmol/L (98-107); Estimated CRCL calculation 49 ml/min; Estimated Glomerular Filt Rate 49; Glucose 113 mg/dL (65-110); Magnesium 2.3 mg/dL (1.6-2.3); Potassium 3.7 mmol/L (3.4-5.0); Sodium 146 mmol/L (137-145)
[2025-01-31 07:44] LABS: Glucose Point of Care 103 mg/dl (65-105)
[2025-01-31] MEDS: LIDOCAINE 5% PATCH 1 PATCH TRANSDERM (09:15)
[2025-01-31] MEDS: ENOXAPARIN 40 MG/0.4 ML SYRINGE SUB-Q (09:15)
--- NOTE | 2025-01-31 10:25 | P.PN_ITS ---
Progress Note: A&P Assessment and Plan (1) Malnutrition compromising bodily function: Code(s): E46 - Unspecified protein-calorie malnutrition Status: Acute Assessment and Plan: Patient had recurrent ileus after his pulmonary condition decompensated had to go on BiPAP. He still has an ileus today and so he remains on NG tube decompression of his GI tract. Will restart his TPN. His PICC line is still in place. (2) Adynamic ileus: Code(s): K56.0 - Paralytic ileus Status: Acute Assessment and Plan: Abdomen is much softer today. NG tube output is not very bilious. He is passing some flatus but no bowel movement yet. We will continue to monitor his abdomen and continue with NG tube decompression today. If he still has a distended abdomen tomorrow then might consider getting a water-soluble small bowel series. Will need to get him up out of bed and up to a chair. PT and OT will need to be restarted. (3) SBO (small bowel obstruction): Code(s): K56.609 - Unspecified intestinal obstruction, unspecified as to partial versus complete obstruction Status: Acute Assessment and Plan: Resolved after exploratory laparotomy and adhesiolysis. (4) Chronic kidney disease, stage 3 (moderate): Code(s): N18.3 - Chronic kidney disease, stage 3 (moderate) Status: Chronic Assessment and Plan: Creatinine initially increased to about 3. It is trending back down now. Continue supportive management. (5) Acute respiratory failure: Code(s): J96.00 - Acute respiratory failure, unspecified whether with hypoxia or hypercapnia Status: Acute Assessment and Plan: Patient is better now. His now off of BiPAP. Continue management poor condition as per hospitalist service. Subjective Date/time seen: 01/31/25 10:25 Interval history: Patient improved today. Mental status has improved and converses today. He is only oriented x2 to person and place. Nasogastric tube was placed yesterday and his abdomen is much less distended today. He states he is passing flatus. No bowel movements. He still has a Mckinney catheter in place. His breathing is better is no longer on BiPAP. Exam GI: Other: Abdomen is mildly distended but much less than yesterday. Midline incision is intact without redness or drainage. Virgie in place. Some bowel sounds are noted. Objective Data Vital Signs Vital Signs: Vital Signs - 24 hr 01/30/25 11:30 01/30/25 12:00 01/30/25 14:00 Temperature 37.6 C H Pulse Rate 76 76 70 Respiratory Rate 33 H Blood Pressure 139/68 Pulse Oximetry 93 Oxygen Delivery Oxygen Flow Rate Fraction of Inspired Oxygen 01/30/25 15:37 01/30/25 16:00 01/30/25 17:57 Temperature 37.4 C Pulse Rate 84 78 74 Respiratory Rate 30 H Blood Pressure 137/69 Pulse Oximetry 94 Oxygen Delivery Oxygen Flow Rate Fraction of Inspired Oxygen 01/30/25 20:00 01/30/25 20:00 01/30/25 20:32 Temperature 36.8 C Pulse Rate 74 74 76 Respiratory Rate 30 H 30 H Blood Pressure Pulse Oximetry 93 93 Oxygen Delivery Nasal Cannula Oxygen Flow Rate 2 Fraction of Inspired Oxygen 21 01/30/25 22:00 01/30/25 23:50 01/31/25 00:00 Temperature 36.7 C Pulse Rate 78 73 71 Respiratory Rate 30 H 30 H Blood Pressure 126/74 Pulse Oximetry 96 96 Oxygen Delivery Nasal Cannula Oxygen Flow Rate 2 Fraction of Inspired Oxygen 21 01/31/25 00:00 01/31/25 02:00 01/31/25 03:58 Temperature 36.7 C Pulse Rate 71 78 65 Respiratory Rate 30 H Blood Pressure 133/75 Pulse Oximetry 98 Oxygen Delivery Oxygen Flow Rate Fraction of Inspired Oxygen 01/31/25 04:00 01/31/25 04:00 01/31/25 05:59 Temperature Pulse Rate 73 73 78 Respiratory Rate 30 H Blood Pressure Pulse Oximetry 98 Oxygen Delivery Nasal Cannula Oxygen Flow Rate 2 Fraction of Inspired Oxygen 01/31/25 08:00 01/31/25 08:29 Temperature 36.7 C Pulse Rate 80 Respiratory Rate 26 H Blood Pressure 152/68 H Pulse Oximetry 98 95 Oxygen Delivery Nasal Cannula Oxygen Flow Rate 2 Fraction of Inspired Oxygen Intake/Output Intake/Output: Intake & Output 01/29/25 01/29/25 01/30/25 01/31/25 00:59 23:59 23:59 23:59 Intake Total 550 540 690 Output Total 2350 1600 Balance 550 540 1660 -1600 Meds/Results Medications: Active Medications Generic Name Dose Route Start Last Admin Trade Name Freq PRN Reason Stop Dose Admin Acetaminophen 650 mg 01/30/25 12:41 Acetaminophen 325 Mg Tablet PO Q4H PRN Mild Pain (1-3) or Fever Hydrocodone Bitart/Acetaminophen 1 tab 01/27/25 09:05 Hydrocodone/Acetaminophen (*Crx) 5-325 Mg Tablet PO Q4H PRN Pain Rated 4-6 Amlodipine Besylate 10 mg 01/27/25 18:00 01/30/25 16:38 Amlodipine Besylate 10 Mg Tablet BY MOUTH Not Given QPM [facility] Aspirin 325 mg 01/28/25 08:00 01/30/25 09:02 Aspirin 325 Mg Tablet BY MOUTH 325 mg DAILY@0800 [facility] Administration Clonidine HCl 1 patch 01/25/25 09:00 01/25/25 09:52 Clonidine 0.1 Mg/24 Hr Patch TRANSDERM 1 patch WEEKLY [facility] Administration Dextrose 12.5 gm 01/18/25 15:51 Dextrose 50% 25 Gm/50 Ml Syringe IV PUSH PRN PRN Hypoglycemia Protocol Doxazosin Mesylate 8 mg 01/26/25 09:00 01/30/25 09:01 Doxazosin Mesylate 4 Mg Tablet PO 8 mg DAILY [facility] Administration Enoxaparin Sodium 40 mg 01/19/25 11:45 01/31/25 09:15 Enoxaparin 40 Mg/0.4 Ml Syringe SUB-Q 40 mg DAILY [facility] Administration Glucagon 1 mg 01/18/25 15:51 Glucagon For Inj 1 Mg Vial IM PRN PRN Hypoglycemia Protocol Glucose 15 gm 01/18/25 15:51 Glucose Oral Gel 15 Gm Of Glucse In 37.5 Gm Tube PO PRN PRN Hypoglycemia Protocol Hydralazine HCl 20 mg 01/22/25 10:25 01/26/25 04:00 Hydralazine Hcl 20 Mg/Ml Vial IV PUSH 20 mg Q4H PRN Administration Blood Pressure - High Hydralazine HCl 10 mg 01/30/25 16:37 Hydralazine Hcl 20 Mg/Ml Vial IV PUSH Q8H PRN Blood Pressure - High Dextrose 1,000 mls @ 100 mls/hr 01/18/25 15:51 Dextrose 5% 1,000 Ml IVPB PRN PRN Hypoglycemia Protocol Dextrose 1,000 mls @ 50 mls/hr 01/31/25 10:24 Dextrose 10% IV CONT .Q20H PRN if PN is interrupted Multivitamins 1.25 ml/ 1,002.5 mls @ 40 mls/hr 01/31/25 10:25 Multivitamins 1.25 ml/ Amino IV CONT Acids/Electrolytes/Dextrose .Q24H [facility] Protocol Fat Emulsion Intravenous 250 mls @ 20.833 mls/hr 01/31/25 10:25 Lipids 20% IVPB Q24H [facility] Insulin Aspart 3 - 6 units 01/28/25 08:00 01/31/25 09:14 Insulin Aspart (*Bkc) 100 Units/Ml SUB-Q Not Given TIDWM [facility] Protocol Insulin Glargine 15 units 01/25/25 09:35 01/30/25 09:03 Insulin Glargine (*Bkc) 100 Units/Ml SUB-Q 15 units QAM [facility] Administration Insulin Human Regular 0 units 01/31/25 12:00 Insulin Human Regular (*Bkc) 100 Units/Ml SUB-Q Q6HR [facility] Protocol Levothyroxine Sodium 25 mcg 01/24/25 06:30 01/30/25 04:40 Levothyroxine Sodium 25 Mcg Tablet PO 25 mcg DAILY@0630 [facility] Administration Lidocaine 1 patch 01/19/25 13:35 01/31/25 09:15 Lidocaine 5% Patch TRANSDERM 1 patch DAILY [facility] Administration Lisinopril 40 mg 01/25/25 09:30 01/30/25 09:01 Lisinopril 20 Mg Tablet PO 40 mg QAM [facility] Administration Melatonin 3 mg 01/19/25 22:39 01/19/25 23:16 Melatonin 3 Mg Tablet PO 3 mg HS PRN Administration Insomnia Metoprolol Tartrate 25 mg 01/27/25 21:00 01/30/25 16:38 Metoprolol Tartrate 25 Mg Tablet BY MOUTH Not Given Q12HR [facility] Morphine Sulfate 2 mg 01/30/25 16:38 01/30/25 22:49 Morphine Sulfate (*Crx) 2 Mg/Ml Inj IV PUSH 2 mg Q4H PRN Administration Pain Rated 7-10 Ondansetron HCl 4 mg 01/17/25 19:07 01/26/25 22:03 Ondansetron Inj 4 Mg/2 Ml Vial IV PUSH 4 mg Q4H PRN Administration Nausea Oxycodone HCl 5 mg 01/27/25 09:05 Oxycodone Hcl (*Crx) 5 Mg Tab Ir PO Q4H PRN Pain Rated 7-10 Pantoprazole Sodium 40 mg 01/28/25 09:00 01/30/25 09:01 Pantoprazole 40 Mg Tablet PO 40 mg QAM [facility] Administration Sodium Chloride 20 ml 01/24/25 14:41 Central Line Flush IV PUSH PRN PRN after blood draws Sodium Chloride 10 ml 01/24/25 14:41 Central Line Flush IV PUSH PRN PRN with TPN bag changes Sodium Chloride 10 ml 01/24/25 22:00 01/31/25 04:32 Central Line Flush IV PUSH 10 ml Q8HR [facility] Administration Radiology Results: ITS Impressions Abdomen/Pelvis CT 01/17/25 18:07 IMPRESSION: Ascending aortic aneurysm measuring up to 5.6 cm. The descending thoracic aorta is mildly dilated to 3.1 cm. Consider nonemergent but timely outpatient CT angiography of the chest and appropriate referral for monitoring/potential intervention. Mild esophagitis/gastritis. Periesophageal lymphadenopathy. Hepatomegaly with steatosis. Mid small bowel obstruction, transition point in the left lateral abdomen. Small volume ascites. Bladder wall thickening, likely secondary to chronic outlet obstruction from prostatomegaly. Small Bowel X-Ray 01/18/25 15:02 IMPRESSION: 1. Small bowel obstruction. Chest X-Ray 01/24/25 14:53 IMPRESSION: Right PICC line with the tip overlying the right atrium. Cardiomegaly. Minimal opacification in the left lung base. Abdomen X-Ray 01/30/25 14:53 IMPRESSION: 1. Nasogastric tube tip in the stomach. 2. Dilated small bowel, likely adynamic ileus given the recent surgery. Labs Labs: Laboratory Results - last 24 hr 01/30/25 01/30/25 01/30/25 11:33 15:38 20:24 Sodium 145 Potassium 3.9 Chloride 107 Carbon Dioxide 32 H Anion Gap 6 BUN 47 H Creatinine 1.52 H Estim Creat Clear Calc 45 Estimated GFR 44 L Glucose 114 H POC Capillary Glucose 183 H 152 H Calcium 8.2 L Magnesium 01/30/25 01/31/25 01/31/25 21:08 04:06 07:26 Sodium 146 H Potassium 3.7 Chloride 108 H Carbon Dioxide 31 H Anion Gap 7 BUN 44 H Creatinine 1.39 H Estim Creat Clear Calc 49 Estimated GFR 49 L Glucose 113 H POC Capillary Glucose 113 H 103 Calcium 8.1 L Magnesium 2.3
--- NOTE | 2025-01-31 11:47 | PCNFU ---
Nutrition Follow-Up Complete: Inadequate oral intake related to ileus as evidenced by NPO/CL day 6 Meet estimated nutrition needs- Meeting ~ 60% estimated needs with TPN Goal: Pt current nutrition is NPO with ice chips + TPN Clinmix E 5/15 with lipids @ 40 ml/h. Nutrition recommendation: Advance TPN to 70 ml/h to better meet estimated energy needs (Clinmix 5/15@ 70 ml/h provides 1693 kcal, 72 g protein, 1930 ml total volume) Last recorded weight is 129.6 kg. Bowel Motility: +2 BMs 01/29 Labs Reviewed: Na 146, GFR 49, BUN 44, Cre 1.39, Glu 13 Meds Noted: Protonix, Reglan, novolog, lantus Skin: No skin issues Additional Notes: TPN restarted because of recurrent ileus. Clinmix E 5/15 @ 40 ml/h provides 1182 kcal, 48 g protein, 1210 ml total volume. Agree with orders Monitoring orders, diet advancement, weights, labs, plan of care Follow up every 3 days. Daily in rounds
[2025-01-31 11:54] LABS: Glucose Point of Care 112 mg/dl (65-105)
[2025-01-31] MEDS: FAT EMULSIONS IV 20% 250 ML 20.83 ML IVPB (13:34)
[2025-01-31] MEDS: PANTOPRAZOLE SODIUM IV 40 MG VIAL IV PUSH (13:35)
[2025-01-31] MEDS: AMINO ACIDS 5%/D15W/E-LYTES/CA 1,000 ML with MULTIVITAMINS-12 INJ VIAL 1 1.25 ML, MULTI... 40 ML IV CONT (13:35)
[2025-01-31 15:35] LABS: Basophils Percent Auto 0.3 % (0.2-1.2); Eosinophils Absolute Auto 0.3 K/mm3 (0-0.3); Eosinophils Percent Auto 3.3 % (0-4.4); Hematocrit 38.4 % (42.0-52.0); Hemoglobin 11.5 g/dL (14.0-18.0); Immature Granulocyte Absolute 0.04 K/mm3 (0.00-0.031); Immature Granulocyte Percent A 0.5 % (0-0.5); Lymphocytes Absolute Auto 0.82 K/mm3 (0.9-3.2); Lymphocytes Percent Auto 10.4 % (18.3-44.2); Mean Corpuscular HGB Conc 29.9 g/dl (32-36); Mean Corpuscular Hemoglobin 27.6 pg (26-34); Mean Corpuscular Volume 92.1 fl (80-100); Mean Platelet Volume 10.4 fl (7.4-10.4); Monocytes Absolute Auto 0.7 K/mm3 (0.1-0.6); Neutrophils Percent Auto 76.5 % (45.5-73.1); Platelet Count Result 214 k/mm3 (150-375); Red Blood Count 4.17 M/mm3 (4.6-6.20); Red Cell Distribution Width 14.1 % (11.5-14.5); White Blood Count 7.9 K/mm3 (4.5-10.0)
[2025-01-31 15:51] LABS: Alanine Aminotransferase 64 U/L (6-50); Albumin Level 3.4 g/dL (3.5-5.1); Alkaline Phosphatase 42 U/L (38-126); Anion Gap 5 mmol/L (4-12); Aspartate Amino Transferase 32 U/L (17-59); Bilirubin,Total 0.5 mg/dL (0.2-1.3); Blood Urea Nitrogen 38 mg/dL (9-20); Calcium 8.2 mg/dL (8.4-10.2); Carbon Dioxide 33 mmol/L (22-30); Chloride 110 mmol/L (98-107); Estimated CRCL calculation 55 ml/min; Estimated Glomerular Filt Rate 56; Glucose 121 mg/dL (65-110); Magnesium 2.3 mg/dL (1.6-2.3); Potassium 3.9 mmol/L (3.4-5.0); Sodium 148 mmol/L (137-145)
[2025-01-31 15:55] LABS: Platelet Estimate Adequate (Adequate); Schistocytes None Seen
[2025-01-31 15:56] LABS: Band Neutrophils Percent 0 % (0-6); Hypochromasia 1+
[2025-01-31 16:06] LABS: Transferrin 210 mg/dL (206-381)
[2025-01-31 16:31] LABS: Glucose Point of Care 128 mg/dl (65-105)
[2025-01-31 16:49] LABS: Partial Thromboplastin Time 26.3 Seconds (22.3-36.8)
--- NOTE | 2025-01-31 18:16 | PM.IMPN ---
Progress Note: A&P Assessment and Plan (1) SBO (small bowel obstruction): Code(s): K56.609 - Unspecified intestinal obstruction, unspecified as to partial versus complete obstruction Status: Acute Assessment and Plan: 02/15: Patient was admitted for abdominal pain, small-bowel obstruction on abdominal CT scan -Surgery was consulted, patient was taken for surgery on 01/18/2025 for high-grade small-bowel obstruction secondary to abdominal adhesions, status post exploratory laparotomy with abdominal adhesiolysis. -continue Zosyn per surgery -Patient has developed ileus. Patient has NG tube in place which is on continue suction. bowel rest, NG tube decompression, -patient had a bowel movement. ? Trial of p.o. diet -management per General surgery -continue reglan, Dulcolax suppository has been ordered per surgery -discussed with general surgeon -01/24 started TPN 01/22: Obstructive series indicated Ileus 02/14: CT scan of the abdomen and pelvis showed mid small-bowel obstruction with transition point in the left lateral abdomen, small volume ascites, hepatomegaly with steatosis, bladder wall thickening likely secondary to chronic outlet obstruction prostatomegaly. Ascending aortic aneurysm measuring 5.6 cm, descending thoracic aorta is mildly dilated to 3.1 cm mild esophagitis/gastritis, periesophageal lymphadenopathy. (2) Hypertension: Qualifiers: Hypertension type: primary hypertension Qualified Code(s): I10 - Essential (primary) hypertension Code(s): I10 - Essential (primary) hypertension Status: Acute Assessment and Plan: Patient currently off nicardipine infusion with improvement since he has abdominal aortic aneurysm. Off Cardizem infusion as patient is in sinus rhythm. Continue p.o. metoprolol , Norvasc, lisinopril Increase doxazosin to 8 mg mg Clonidine transdermal patch considering unreliable p.o. absorption (3) Diabetes mellitus with renal manifestation: Code(s): E11.29 - Type 2 diabetes mellitus with other diabetic kidney complication Status: Acute Assessment and Plan: Continue Accu-Cheks and sliding scale insulin Continue Lantus (4) BPH (benign prostatic hyperplasia): Code(s): N40.0 - Benign prostatic hyperplasia without lower urinary tract symptoms Status: Acute Assessment and Plan: Mckinney catheter in place, patient had adequate urine output (5) Atrial fibrillation with RVR: Code(s): I48.91 - Unspecified atrial fibrillation Status: Acute Assessment and Plan: Converted to sinus rhythm. Discontinue Cardizem infusion Continue p.o. metoprolol Systemic anticoagulation is on hold and resumption as per General surgery Aspirin (6) Acute respiratory failure: Code(s): J96.00 - Acute respiratory failure, unspecified whether with hypoxia or hypercapnia Status: Acute Assessment and Plan: Currently on nasal cannula. Likely atelectasis. Continue incentive spirometry. PT OT (7) Delirium: Code(s): R41.0 - Disorientation, unspecified Status: Acute Assessment and Plan: Off Precedex infusion. Improved. Much more alert and oriented. Restraints have been discontinued Sitter at bedside Continue Seroquel (8) Electrolyte abnormality: Code(s): E87.8 - Other disorders of electrolyte and fluid balance, not elsewhere classified Status: Acute Assessment and Plan: Replace low potassium and phos D5 water for hypernatremia (9) Elevated serum creatinine: Code(s): R79.89 - Other specified abnormal findings of blood chemistry Status: Acute Assessment and Plan: Patient was given Lasix yesterday 2 doses and there is elevation of creatinine is CO2 suggestive of contraction alkalosis Hold diuretics and will give some fluids today. Monitor urine output electrolytes and creatinine Plan patient was found to have High-grade small-bowel obstruction secondary to abdominal adhesions was seen by surgery service had exploratory laparotomy, abdominal adhesiolysis on 01/18, however patient became confused removed his IV, and was wondering in the hospital, patient was brought back to the room, patient was aggressive, transferred to ICU for sedation with Precedex, patient is now off Precedex, more alert and eating ice, stats does pass some gas, today patient talking stats feels better, his son is present in the room, patient is clinically improving. on 01/24 patient had been NPO for last seven day, surgeon has started patient has PICC line on TPN, last night patient had two large BM and he is now in IMU, NG tube is out and still some what confused sitter is with him, today patient is more alert, and oriented, no sitter however his family is present in the room, he does stats he does not feel like eating, he had BM and he is passing gas, will do KUB, will monitor further recommendation to follow. possible discharge tomorrow it it is okay with the surgery service. I called patient primary care Alida Dunn APRN and informed that patient has Ascending aortic aneurysm measuring up to 5.6 cm. Ms Dunn will refer patient to a vascular surgeon and will see patient in her clinic after discharge. today patient complains not feeling well, passing very little, poor appetite, patient had KUB showed partial obstruction, surgery service, reinserted NG tube, will monitor. today patient with NG tube stats feeling better and passing gas, seen surgery service recommended, have PT move the patient out of the bed and possible ambulate the patient. DVT prophylaxis: Enoxaparin subcutaneous Stress ulcer prophylaxis: Protonix IV q.12 hours Nutrition: NG tube management as above, npo Code Status: Full code Switched to nasal cannula, incentive spirometry PT OT Subjective Date/time seen: 01/31/25 18:16 Interval history: Patient admitted for treatment of SBO and plan for exploratory laparotomy. Patient still hypertensive will increase IV metoprolol to 5 mg scheduled and schedule his IV hydralazine. Patient refusing NG tube but denies ABD pain, distention slightly improved. Patient reported flatulence but still no BM. H&P-Narrative He presents with a few hours' history of central abdominal pain; it is localized; rated 10 in intensity, aggravated by meals/drinks, alleviated by fasting; associated with bilious but non-bloody emesis, malaise, anorexia, chills and rigors. His last BM was days ago; he denies chest pain, dizziness, LOC, flank pain, dysuria, hematuria or HILL. patient was found to have High-grade small-bowel obstruction secondary to abdominal adhesions was seen by surgery service had exploratory laparotomy, abdominal adhesiolysis on 01/18, however patient became confused removed his IV, and was wondering in the hospital, patient was brought back to the room, patient was aggressive, transferred to ICU for sedation with Precedex, patient is now off Precedex, more alert and eating ice, stats does pass some gas, today patient talking stats feels better, his son is present in the room, patient is clinically improving. on 01/24 patient had been NPO for last seven day, surgeon has started patient has PICC line on TPN, last night patient had two large BM and he is now in IMU, NG tube is out and still some what confused sitter is with him, today patient is more alert, and oriented, no sitter however his family is present in the room, he does stats he does not feel like eating, he had BM and he is passing gas, will do KUB, will monitor further recommendation to follow. possible discharge tomorrow it it is okay with the surgery service. I called patient primary care Alida Dunn APRN and informed that patient has Ascending aortic aneurysm measuring up to 5.6 cm. Ms Dunn will refer patient to a vascular surgeon and will see patient in her clinic after discharge. today patient complains not feeling well, passing very little, poor appetite, patient had KUB showed partial obstruction, surgery service, reinserted NG tube, will monitor. today patient with NG tube stats feeling better and passing gas, seen surgery service recommended, have PT move the patient out of the bed and possible ambulate the patient. Review of Systems Review of Systems: All systems reviewed & are unremarkable except as noted in HPI and below (HPI) ROS unobtainable: Yes unobtainable due to mental status Exam Narrative: Patient is comfortable, NAD HEENT: NG tube in place LUNGS:CTA ABD: distended Lower extremities: no edema SKIN: nonjaundiced Neuro: Confused Objective Data Vital Signs Vital Signs: Vital Signs - 24 hr 01/30/25 20:00 01/30/25 20:00 01/30/25 20:32 Temperature 36.8 C Pulse Rate 74 74 76 Respiratory Rate 30 H 30 H Blood Pressure Pulse Oximetry 93 93 Oxygen Delivery Nasal Cannula Oxygen Flow Rate 2 Fraction of Inspired Oxygen 01/30/25 22:00 01/30/25 23:50 01/31/25 00:00 Temperature 36.7 C Pulse Rate 78 73 71 Respiratory Rate 30 H 30 H Blood Pressure 126/74 Pulse Oximetry 96 96 Oxygen Delivery Nasal Cannula Oxygen Flow Rate 2 Fraction of Inspired Oxygen 01/31/25 00:00 01/31/25 02:00 01/31/25 03:58 Temperature 36.7 C Pulse Rate 71 78 65 Respiratory Rate 30 H Blood Pressure 133/75 Pulse Oximetry 98 Oxygen Delivery Oxygen Flow Rate Fraction of Inspired Oxygen 01/31/25 04:00 01/31/25 04:00 01/31/25 05:59 Temperature Pulse Rate 73 73 78 Respiratory Rate 30 H Blood Pressure Pulse Oximetry 98 Oxygen Delivery Nasal Cannula Oxygen Flow Rate 2 Fraction of Inspired Oxygen 01/31/25 08:00 01/31/25 08:00 01/31/25 08:00 Temperature 36.7 C Pulse Rate 80 68 Respiratory Rate 26 H Blood Pressure 152/68 H Pulse Oximetry 98 96 Oxygen Delivery Nasal Cannula Oxygen Flow Rate 2 Fraction of Inspired Oxygen 01/31/25 08:29 01/31/25 10:00 01/31/25 11:30 Temperature 36.8 C Pulse Rate 70 67 Respiratory Rate 24 H Blood Pressure 139/63 Pulse Oximetry 95 96 Oxygen Delivery Nasal Cannula Oxygen Flow Rate 2 Fraction of Inspired Oxygen 01/31/25 12:00 01/31/25 12:00 01/31/25 14:00 Temperature Pulse Rate 66 72 Respiratory Rate Blood Pressure Pulse Oximetry 96 Oxygen Delivery Nasal Cannula Oxygen Flow Rate 2 Fraction of Inspired Oxygen 01/31/25 16:00 Temperature 36.8 C Pulse Rate 82 Respiratory Rate 22 H Blood Pressure 98/50 L Pulse Oximetry 98 Oxygen Delivery Oxygen Flow Rate Fraction of Inspired Oxygen Intake/Output Intake/Output: Intake & Output 01/29/25 01/29/25 01/30/25 01/31/25 00:59 23:59 23:59 23:59 Intake Total 550 540 690 Output Total 2350 1600 Balance 550 540 -1660 -1600 Meds/Results Medications: Active Medications Generic Name Dose Route Start Last Admin Trade Name Freq PRN Reason Stop Dose Admin Acetaminophen 650 mg 01/30/25 12:41 Acetaminophen 325 Mg Tablet PO Q4H PRN Mild Pain (1-3) or Fever Hydrocodone Bitart/Acetaminophen 1 tab 01/27/25 09:05 Hydrocodone/Acetaminophen (*Crx) 5-325 Mg Tablet PO Q4H PRN Pain Rated 4-6 Amlodipine Besylate 10 mg 01/27/25 18:00 01/30/25 16:38 Amlodipine Besylate 10 Mg Tablet BY MOUTH Not Given QPM [facility] Aspirin 325 mg 01/28/25 08:00 01/30/25 09:02 Aspirin 325 Mg Tablet BY MOUTH 325 mg DAILY@0800 [facility] Administration Clonidine HCl 1 patch 01/25/25 09:00 01/25/25 09:52 Clonidine 0.1 Mg/24 Hr Patch TRANSDERM 1 patch WEEKLY [facility] Administration Dextrose 12.5 gm 01/18/25 15:51 Dextrose 50% 25 Gm/50 Ml Syringe IV PUSH PRN PRN Hypoglycemia Protocol Doxazosin Mesylate 8 mg 01/26/25 09:00 01/30/25 09:01 Doxazosin Mesylate 4 Mg Tablet PO 8 mg DAILY [facility] Administration Enoxaparin Sodium 40 mg 01/19/25 11:45 01/31/25 09:15 Enoxaparin 40 Mg/0.4 Ml Syringe SUB-Q 40 mg DAILY [facility] Administration Glucagon 1 mg 01/18/25 15:51 Glucagon For Inj 1 Mg Vial IM PRN PRN Hypoglycemia Protocol Glucose 15 gm 01/18/25 15:51 Glucose Oral Gel 15 Gm Of Glucse In 37.5 Gm Tube PO PRN PRN Hypoglycemia Protocol Hydralazine HCl 20 mg 01/22/25 10:25 01/26/25 04:00 Hydralazine Hcl 20 Mg/Ml Vial IV PUSH 20 mg Q4H PRN Administration Blood Pressure - High Hydralazine HCl 10 mg 01/30/25 16:37 Hydralazine Hcl 20 Mg/Ml Vial IV PUSH Q8H PRN Blood Pressure - High Dextrose 1,000 mls @ 100 mls/hr 01/18/25 15:51 Dextrose 5% 1,000 Ml IVPB PRN PRN Hypoglycemia Protocol Dextrose 1,000 mls @ 50 mls/hr 01/31/25 12:00 Dextrose 10% IV CONT .Q20H PRN if PN is interrupted Multivitamins 1.25 ml/ 1,002.5 mls @ 40 mls/hr 01/31/25 12:00 01/31/25 13:35 Multivitamins 1.25 ml/ Amino IV CONT 40 mls/hr Acids/Electrolytes/Dextrose .Q24H [facility]INE Administration Protocol Fat Emulsion Intravenous 250 mls @ 20.833 mls/hr 01/31/25 12:00 01/31/25 13:34 Lipids 20% IVPB 20.83 mls/hr Q24H [facility] Administration Insulin Aspart 3 - 6 units 01/31/25 12:05 01/31/25 13:36 Insulin Aspart (*Bkc) 100 Units/Ml SUB-Q Not Given Q6HR [facility] Protocol Insulin Glargine 15 units 01/25/25 09:35 01/30/25 09:03 Insulin Glargine (*Bkc) 100 Units/Ml SUB-Q 15 units QAM [facility]UG[facility]INE Administration Levothyroxine Sodium 25 mcg 01/24/25 06:30 01/30/25 04:40 Levothyroxine Sodium 25 Mcg Tablet PO 25 mcg DAILY@0630 [facility] Administration Lidocaine 1 patch 01/19/25 13:35 01/31/25 09:15 Lidocaine 5% Patch TRANSDERM 1 patch DAILY [facility] Administration Lisinopril 40 mg 01/25/25 09:30 01/30/25 09:01 Lisinopril 20 Mg Tablet PO 40 mg QAM [facility] Administration Melatonin 3 mg 01/19/25 22:39 01/19/25 23:16 Melatonin 3 Mg Tablet PO 3 mg HS PRN Administration Insomnia Metoprolol Tartrate 25 mg 01/27/25 21:00 01/30/25 16:38 Metoprolol Tartrate 25 Mg Tablet BY MOUTH Not Given Q12HR [facility] Morphine Sulfate 2 mg 01/30/25 16:38 01/30/25 22:49 Morphine Sulfate (*Crx) 2 Mg/Ml Inj IV PUSH 2 mg Q4H PRN Administration Pain Rated 7-10 Ondansetron HCl 4 mg 01/17/25 19:07 01/26/25 22:03 Ondansetron Inj 4 Mg/2 Ml Vial IV PUSH 4 mg Q4H PRN Administration Nausea Oxycodone HCl 5 mg 01/27/25 09:05 Oxycodone Hcl (*Crx) 5 Mg Tab Ir PO Q4H PRN Pain Rated 7-10 Pantoprazole Sodium 40 mg 01/31/25 11:40 01/31/25 13:35 Pantoprazole Sodium Iv 40 Mg Vial IV PUSH 40 mg QAM AUG[facility]INE Administration Sodium Chloride 20 ml 01/24/25 14:41 Central Line Flush IV PUSH PRN PRN after blood draws Sodium Chloride 10 ml 01/24/25 14:41 Central Line Flush IV PUSH PRN PRN with TPN bag changes Sodium Chloride 10 ml 01/24/25 22:00 01/31/25 13:36 Central Line Flush IV PUSH 10 ml Q8HR [facility] Administration Radiology Results: ITS Impressions Abdomen/Pelvis CT 01/17/25 18:07 IMPRESSION: Ascending aortic aneurysm measuring up to 5.6 cm. The descending thoracic aorta is mildly dilated to 3.1 cm. Consider nonemergent but timely outpatient CT angiography of the chest and appropriate referral for monitoring/potential intervention. Mild esophagitis/gastritis. Periesophageal lymphadenopathy. Hepatomegaly with steatosis. Mid small bowel obstruction, transition point in the left lateral abdomen. Small volume ascites. Bladder wall thickening, likely secondary to chronic outlet obstruction from prostatomegaly. Small Bowel X-Ray 01/18/25 15:02 IMPRESSION: 1. Small bowel obstruction. Chest X-Ray 01/24/25 14:53 IMPRESSION: Right PICC line with the tip overlying the right atrium. Cardiomegaly. Minimal opacification in the left lung base. Abdomen X-Ray 01/30/25 14:53 IMPRESSION: 1. Nasogastric tube tip in the stomach. 2. Dilated small bowel, likely adynamic ileus given the recent surgery. Labs Labs: Laboratory Results - last 24 hr 01/30/25 01/30/25 01/31/25 20:24 21:08 04:06 WBC RBC Hgb Hct MCV MCH MCHC RDW Plt Count MPV Immature Gran % (Auto) Neut % (Auto) Lymph % (Auto) [place] % (Auto) Eos % (Auto) Baso % (Auto) Lymph # (Auto) [place] # (Auto) Eos # (Auto) Baso # (Auto) Abs Immat Gran (auto) Absolute Neuts (auto) Absolute Nucleated RBC Band Neutrophils % Nucleated RBC % Platelet Estimate Hypochromasia Schistocytes APTT Sodium 145 146 H Potassium 3.9 3.7 Chloride 107 108 H Carbon Dioxide 32 H 31 H Anion Gap 6 7 BUN 47 H 44 H Creatinine 1.52 H 1.39 H Estim Creat Clear Calc 45 49 Estimated GFR 44 L 49 L Glucose 114 H 113 H POC Capillary Glucose 113 H Calcium 8.2 L 8.1 L Magnesium 2.3 Transferrin Total Bilirubin AST ALT Alkaline Phosphatase Total Protein Albumin 01/31/25 01/31/25 01/31/25 07:26 11:34 15:14 WBC 7.9 RBC 4.17 L Hgb 11.5 L Hct 38.4 L MCV 92.1 MCH 27.6 MCHC 29.9 L RDW 14.1 Plt Count 214 MPV 10.4 Immature Gran % (Auto) 0.5 Neut % (Auto) 76.5 H Lymph % (Auto) 10.4 L [place] % (Auto) 9.0 H Eos % (Auto) 3.3 Baso % (Auto) 0.3 Lymph # (Auto) 0.82 L [place] # (Auto) 0.7 H Eos # (Auto) 0.3 Baso # (Auto) 0.0 Abs Immat Gran (auto) 0.04 H Absolute Neuts (auto) 6.0 Absolute Nucleated RBC 0.000 Band Neutrophils % 0 Nucleated RBC % 0.0 Platelet Estimate Adequate Hypochromasia 1+ Schistocytes None seen APTT 26.3 Sodium 148 H Potassium 3.9 Chloride 110 H Carbon Dioxide 33 H Anion Gap 5 BUN 38 H Creatinine 1.24 Estim Creat Clear Calc 55 Estimated GFR 56 L Glucose 121 H POC Capillary Glucose 103 112 H Calcium 8.2 L Magnesium 2.3 Transferrin 210 Total Bilirubin 0.5 AST 32 ALT 64 H Alkaline Phosphatase 42 Total Protein 7.0 Albumin 3.4 L 01/31/25 16:04 WBC RBC Hgb Hct MCV MCH MCHC RDW Plt Count MPV Immature Gran % (Auto) Neut % (Auto) Lymph % (Auto) [place] % (Auto) Eos % (Auto) Baso % (Auto) Lymph # (Auto) [place] # (Auto) Eos # (Auto) Baso # (Auto) Abs Immat Gran (auto) Absolute Neuts (auto) Absolute Nucleated RBC Band Neutrophils % Nucleated RBC % Platelet Estimate Hypochromasia Schistocytes APTT Sodium Potassium Chloride Carbon Dioxide Anion Gap BUN Creatinine Estim Creat Clear Calc Estimated GFR Glucose POC Capillary Glucose 128 H Calcium Magnesium Transferrin Total Bilirubin AST ALT Alkaline Phosphatase Total Protein Albumin Quality VTE Prophylaxis VTE prophylaxis: mechanical ordered and pharmacologic ordered
[2025-01-31 20:06] LABS: Glucose Point of Care 159 mg/dl (65-105)
[2025-01-31 23:26] LABS: Glucose Point of Care 136 mg/dl (65-105)
[2025-02-01] VITALS (11 sets, daily range): BP systolic 122–155; BP diastolic 66–76; PULSE 64–75; RESP 18–22; TEMP 36.6–37.2; O2SAT 96–100
[2025-02-01 03:51] LABS: Basophils Percent Auto 0.4 % (0.2-1.2); Eosinophils Absolute Auto 0.2 K/mm3 (0-0.3); Eosinophils Percent Auto 3.1 % (0-4.4); Hematocrit 40.1 % (42.0-52.0); Hemoglobin 12.1 g/dL (14.0-18.0); Immature Granulocyte Absolute 0.05 K/mm3 (0.00-0.031); Immature Granulocyte Percent A 0.6 % (0-0.5); Lymphocytes Absolute Auto 1.03 K/mm3 (0.9-3.2); Lymphocytes Percent Auto 13.4 % (18.3-44.2); Mean Corpuscular HGB Conc 30.2 g/dl (32-36); Mean Corpuscular Hemoglobin 27.6 pg (26-34); Mean Corpuscular Volume 91.3 fl (80-100); Mean Platelet Volume 10.2 fl (7.4-10.4); Monocytes Absolute Auto 0.7 K/mm3 (0.1-0.6); Monocytes Percent Auto 9.1 % (2.6-8.5); Neutrophils Absolute Auto 5.7 K/mm3 (1.3-6.7); Neutrophils Percent Auto 73.4 % (45.5-73.1); Platelet Count Result 217 k/mm3 (150-375); Red Blood Count 4.39 M/mm3 (4.6-6.20); Red Cell Distribution Width 14.2 % (11.5-14.5); White Blood Count 7.7 K/mm3 (4.5-10.0)
[2025-02-01 04:02] LABS: Alanine Aminotransferase 58 U/L (6-50); Albumin Level 3.4 g/dL (3.5-5.1); Alkaline Phosphatase 42 U/L (38-126); Anion Gap 7 mmol/L (4-12); Aspartate Amino Transferase 30 U/L (17-59); Bilirubin,Total 0.4 mg/dL (0.2-1.3); Blood Urea Nitrogen 36 mg/dL (9-20); Calcium 8.4 mg/dL (8.4-10.2); Carbon Dioxide 32 mmol/L (22-30); Chloride 109 mmol/L (98-107); Estimated CRCL calculation 54 ml/min; Estimated Glomerular Filt Rate 56; Glucose 142 mg/dL (65-110); Magnesium 2.4 mg/dL (1.6-2.3); Phosphorus 3.4 mg/dL (2.5-4.5); Potassium 3.8 mmol/L (3.4-5.0); Sodium 148 mmol/L (137-145); Triglycerides 213 mg/dL (<150)
[2025-02-01 06:13] LABS: Glucose Point of Care 152 mg/dl (65-105)
[2025-02-01] MEDS: CENTRAL LINE FLUSH 10 ML IV PUSH ×3 (06:29→21:25)
[2025-02-01] MEDS: ENOXAPARIN 40 MG/0.4 ML SYRINGE SUB-Q (09:24)
[2025-02-01] MEDS: cloNIDine 0.1 MG/24 HR PATCH 1 PATCH TRANSDERM (09:24)
[2025-02-01] MEDS: LIDOCAINE 5% PATCH 1 PATCH TRANSDERM (09:24)
[2025-02-01] MEDS: PANTOPRAZOLE SODIUM IV 40 MG VIAL IV PUSH (09:25)
--- NOTE | 2025-02-01 10:33 | P.PNIM_ITS ---
Progress Note: A&P Assessment and Plan (1) SBO (small bowel obstruction): Code(s): K56.609 - Unspecified intestinal obstruction, unspecified as to partial versus complete obstruction Status: Acute Assessment and Plan: 02/15: Patient was admitted for abdominal pain, small-bowel obstruction on abdominal CT scan -Surgery was consulted, patient was taken for surgery on 01/18/2025 for high- grade small-bowel obstruction secondary to abdominal adhesions, status post exploratory laparotomy with abdominal adhesiolysis. -continue Zosyn per surgery -Patient has developed ileus. Patient has NG tube in place which is on continue suction. bowel rest, NG tube decompression, -patient had a bowel movement. ? Trial of p.o. diet -management per General surgery -continue reglan, Dulcolax suppository has been ordered per surgery -discussed with general surgeon -01/24 started TPN 01/22: Obstructive series indicated Ileus 02/14: CT scan of the abdomen and pelvis showed mid small-bowel obstruction with transition point in the left lateral abdomen, small volume ascites, hepatomegaly with steatosis, bladder wall thickening likely secondary to chronic outlet obstruction prostatomegaly. Ascending aortic aneurysm measuring 5.6 cm, descending thoracic aorta is mildly dilated to 3.1 cm mild esophagitis/gastritis, periesophageal lymphadenopathy. (2) Hypertension: Qualifiers: Hypertension type: primary hypertension Qualified Code(s): I10 - Essential (primary) hypertension Code(s): I10 - Essential (primary) hypertension Status: Acute Assessment and Plan: Patient currently off nicardipine infusion with improvement since he has abdominal aortic aneurysm. Off Cardizem infusion as patient is in sinus rhythm. Continue p.o. metoprolol , Norvasc, lisinopril Increase doxazosin to 8 mg mg Clonidine transdermal patch considering unreliable p.o. absorption (3) Diabetes mellitus with renal manifestation: Code(s): E11.29 - Type 2 diabetes mellitus with other diabetic kidney complication Status: Acute Assessment and Plan: Continue Accu-Cheks and sliding scale insulin Continue Lantus (4) BPH (benign prostatic hyperplasia): Code(s): N40.0 - Benign prostatic hyperplasia without lower urinary tract symptoms Status: Acute Assessment and Plan: Mckinney catheter in place, patient had adequate urine output (5) Atrial fibrillation with RVR: Code(s): I48.91 - Unspecified atrial fibrillation Status: Acute Assessment and Plan: Converted to sinus rhythm. Discontinue Cardizem infusion Continue p.o. metoprolol Systemic anticoagulation is on hold and resumption as per General surgery Aspirin (6) Acute respiratory failure: Code(s): J96.00 - Acute respiratory failure, unspecified whether with hypoxia or hypercapnia Status: Acute Assessment and Plan: Currently on nasal cannula. Likely atelectasis. Continue incentive spirometry. PT OT (7) Delirium: Code(s): R41.0 - Disorientation, unspecified Status: Acute Assessment and Plan: Off Precedex infusion. Improved. Much more alert and oriented. Restraints have been discontinued Sitter at bedside Continue Seroquel (8) Electrolyte abnormality: Code(s): E87.8 - Other disorders of electrolyte and fluid balance, not elsewhere classified Status: Acute Assessment and Plan: Replace low potassium and phos D5 water for hypernatremia (9) Elevated serum creatinine: Code(s): R79.89 - Other specified abnormal findings of blood chemistry Status: Acute Assessment and Plan: Patient was given Lasix yesterday 2 doses and there is elevation of creatinine is CO2 suggestive of contraction alkalosis Hold diuretics and will give some fluids today. Monitor urine output electrolytes and creatinine Plan patient was found to have High-grade small-bowel obstruction secondary to abdominal adhesions was seen by surgery service had exploratory laparotomy, abdominal adhesiolysis on 01/18, however patient became confused removed his IV, and was wondering in the hospital, patient was brought back to the room, patient was aggressive, transferred to ICU for sedation with Precedex, patient is now off Precedex, more alert and eating ice, stats does pass some gas, today patient talking stats feels better, his son is present in the room, patient is clinically improving. on 01/24 patient had been NPO for last seven day, surgeon has started patient has PICC line on TPN, last night patient had two large BM and he is now in IMU, NG tube is out and still some what confused sitter is with him, today patient is more alert, and oriented, no sitter however his family is present in the room, he does stats he does not feel like eating, he had BM and he is passing gas, will do KUB, will monitor further recommendation to follow. possible discharge tomorrow it it is okay with the surgery service. I called patient primary care Alida Dunn APRN and informed that patient has Ascending aortic aneurysm measuring up to 5.6 cm. Ms Dunn will refer patient to a vascular surgeon and will see patient in her clinic after discharge. today patient complains not feeling well, passing very little, poor appetite, patient had KUB showed partial obstruction, surgery service, reinserted NG tube, will monitor. today patient with NG tube stats feeling better and passing gas, seen surgery service recommended, have PT move the patient out of the bed and possible ambulate the patient. DVT prophylaxis: Enoxaparin subcutaneous Stress ulcer prophylaxis: Protonix IV q.12 hours Nutrition: NG tube management as above, npo Code Status: Full code Switched to nasal cannula, incentive spirometry PT OT Subjective Date/time seen: 02/01/25 10:33 Interval history: Patient admitted for treatment of SBO and plan for exploratory laparotomy. Patient still hypertensive will increase IV metoprolol to 5 mg scheduled and schedule his IV hydralazine. Patient refusing NG tube but denies ABD pain, distention slightly improved. Patient reported flatulence but still no BM. H&P-Narrative He presents with a few hours' history of central abdominal pain; it is localized; rated 10 in intensity, aggravated by meals/drinks, alleviated by fasting; associated with bilious but non-bloody emesis, malaise, anorexia, chills and rigors. His last BM was days ago; he denies chest pain, dizziness, LOC, flank pain, dysuria, hematuria or HILL. patient was found to have High-grade small-bowel obstruction secondary to ab dominal adhesions was seen by surgery service had exploratory laparotomy, abdominal adhesiolysis on 01/18, however patient became confused removed his IV, and was wondering in the hospital, patient was brought back to the room, patient was aggressive, transferred to ICU for sedation with Precedex, patient is now off Precedex, more alert and eating ice, stats does pass some gas, today patient talking stats feels better, his son is present in the room, patient is clinically improving. on 01/24 patient had been NPO for last seven day, surgeon has started patient has PICC line on TPN, last night patient had two large BM and he is now in IMU, NG tube is out and still some what confused sitter is with him, today patient is more alert, and oriented, no sitter however his family is present in the room, he does stats he does not feel like eating, he had BM and he is passing gas, will do KUB, will monitor further recommendation to follow. possible discharge tomorrow it it is okay with the surgery service. I called patient primary care Aliad Dunn APRN and informed that patient has Ascending aortic aneurysm measuring up to 5.6 cm. Ms Dunn will refer patient to a vascular surgeon and will see patient in her clinic after discharge. today patient complains not feeling well, passing very little, poor appetite, patient had KUB showed partial obstruction, surgery service, reinserted NG tube, will monitor. on 01/31 patient with NG tube stated feeling better and was passing gas, seen surgery service recommended, have PT move the patient out of the bed and possible ambulate the patient. Today patient is out of bed, sitting in the chair, still will NG tube, had a BM, was seen by surgery service and started patient on juice, will give ice chips, will encourage patient to ambulate, will monitor and plan. Review of Systems Review of Systems: All systems reviewed & are unremarkable except as noted in HPI and below (HPI) Exam Narrative: Patient is comfortable, NAD HEENT: NG tube in place LUNGS:CTA ABD: distended Lower extremities: no edema SKIN: nonjaundiced Neuro: Confused Objective Data Vital Signs Vital Signs: Vital Signs - 24 hr 01/31/25 11:30 01/31/25 12:00 01/31/25 12:00 Temperature 36.8 C Pulse Rate 67 66 Respiratory Rate 24 H Blood Pressure 139/63 Pulse Oximetry 96 96 Oxygen Delivery Nasal Cannula Oxygen Flow Rate 2 01/31/25 14:00 01/31/25 16:00 01/31/25 16:00 Temperature 36.8 C Pulse Rate 72 82 82 Respiratory Rate 22 H Blood Pressure 98/50 L Pulse Oximetry 98 Oxygen Delivery Oxygen Flow Rate 01/31/25 16:00 01/31/25 18:00 01/31/25 20:00 Temperature 36.9 C Pulse Rate 73 72 Respiratory Rate 16 Blood Pressure 139/64 Pulse Oximetry 98 94 Oxygen Delivery Nasal Cannula Oxygen Flow Rate 2 01/31/25 20:00 01/31/25 20:00 01/31/25 22:00 Temperature Pulse Rate 73 67 Respiratory Rate Blood Pressure Pulse Oximetry 97 Oxygen Delivery Nasal Cannula Oxygen Flow Rate 2 01/31/25 22:37 01/31/25 22:37 01/31/25 23:24 Temperature 36.8 C Pulse Rate 67 67 70 Respiratory Rate 18 20 Blood Pressure 155/74 H Pulse Oximetry 97 97 99 Oxygen Delivery Nasal Cannula Nasal Cannula Oxygen Flow Rate 2 02/01/25 00:00 02/01/25 00:00 02/01/25 02:00 Temperature Pulse Rate 71 69 Respiratory Rate Blood Pressure Pulse Oximetry 99 Oxygen Delivery Nasal Cannula Oxygen Flow Rate 2 02/01/25 04:00 02/01/25 04:00 02/01/25 04:00 Temperature 37.2 C Pulse Rate 72 74 Respiratory Rate 20 Blood Pressure 131/69 Pulse Oximetry 96 97 Oxygen Delivery Nasal Cannula Oxygen Flow Rate 2 02/01/25 06:00 02/01/25 08:00 02/01/25 08:00 Temperature 36.8 C Pulse Rate 73 69 Respiratory Rate 20 Blood Pressure 138/66 Pulse Oximetry 97 99 Oxygen Delivery Nasal Cannula Oxygen Flow Rate 2 02/01/25 08:00 02/01/25 10:00 Temperature Pulse Rate 69 69 Respiratory Rate Blood Pressure Pulse Oximetry Oxygen Delivery Oxygen Flow Rate Intake/Output Intake/Output: Intake & Output 01/29/25 01/30/25 01/31/25 02/01/25 23:59 23:59 23:59 23:59 Intake Total 540 690 100 250 Output Total 2350 2600 475 Balance 540 -1660 -2500 -225 Meds/Results Medications: Active Medications Generic Name Dose Route Start Last Admin Trade Name Freq PRN Reason Stop Dose Admin Acetaminophen 650 mg 01/30/25 12:41 Acetaminophen 325 Mg Tablet PO Q4H PRN Mild Pain (1-3) or Fever Hydrocodone Bitart/Acetaminophen 1 tab 01/27/25 09:05 Hydrocodone/Acetaminophen (*Crx) 5-325 Mg Tablet PO Q4H PRN Pain Rated 4-6 Amlodipine Besylate 10 mg 01/27/25 18:00 01/30/25 16:38 Amlodipine Besylate 10 Mg Tablet BY MOUTH Not Given QPM [facility] Aspirin 325 mg 01/28/25 08:00 01/30/25 09:02 Aspirin 325 Mg Tablet BY MOUTH 325 mg DAILY@0800 [facility] Administration Clonidine HCl 1 patch 01/25/25 09:00 02/01/25 09:24 Clonidine 0.1 Mg/24 Hr Patch TRANSDERM 1 patch WEEKLY [facility] Administration Dextrose 12.5 gm 01/18/25 15:51 Dextrose 50% 25 Gm/50 Ml Syringe IV PUSH PRN PRN Hypoglycemia Protocol Doxazosin Mesylate 8 mg 01/26/25 09:00 01/30/25 09:01 Doxazosin Mesylate 4 Mg Tablet PO 8 mg DAILY [facility] Administration Enoxaparin Sodium 40 mg 01/19/25 11:45 02/01/25 09:24 Enoxaparin 40 Mg/0.4 Ml Syringe SUB-Q 40 mg DAILY [facility] Administration Glucagon 1 mg 01/18/25 15:51 Glucagon For Inj 1 Mg Vial IM PRN PRN Hypoglycemia Protocol Glucose 15 gm 01/18/25 15:51 Glucose Oral Gel 15 Gm Of Glucse In 37.5 Gm Tube PO PRN PRN Hypoglycemia Protocol Hydralazine HCl 20 mg 01/22/25 10:25 01/26/25 04:00 Hydralazine Hcl 20 Mg/Ml Vial IV PUSH 20 mg Q4H PRN Administration Blood Pressure - High Hydralazine HCl 10 mg 01/30/25 16:37 Hydralazine Hcl 20 Mg/Ml Vial IV PUSH Q8H PRN Blood Pressure - High Dextrose 1,000 mls @ 100 mls/hr 01/18/25 15:51 Dextrose 5% 1,000 Ml IVPB PRN PRN Hypoglycemia Protocol Dextrose 1,000 mls @ 50 mls/hr 01/31/25 12:00 Dextrose 10% IV CONT .Q20H PRN if PN is interrupted Multivitamins 1.25 ml/ 1,002.5 mls @ 40 mls/hr 01/31/25 12:00 01/31/25 13:35 Multivitamins 1.25 ml/ Amino IV CONT 40 mls/hr Acids/Electrolytes/Dextrose .Q24H [facility] Administration Protocol Fat Emulsion Intravenous 250 mls @ 20.833 mls/hr 01/31/25 12:00 02/01/25 01:35 Lipids 20% IVPB Infused Q24H [facility] Infusion Insulin Aspart 3 - 6 units 01/31/25 12:05 02/01/25 06:29 Insulin Aspart (*Bkc) 100 Units/Ml SUB-Q Not Given Q6HR [facility] Protocol Insulin Glargine 15 units 01/25/25 09:35 01/30/25 09:03 Insulin Glargine (*Bkc) 100 Units/Ml SUB-Q 15 units QAM [facility] Administration Levothyroxine Sodium 25 mcg 01/24/25 06:30 01/30/25 04:40 Levothyroxine Sodium 25 Mcg Tablet PO 25 mcg DAILY@0630 [facility] Administration Lidocaine 1 patch 01/19/25 13:35 02/01/25 09:24 Lidocaine 5% Patch TRANSDERM 1 patch DAILY [facility] Administration Lisinopril 40 mg 01/25/25 09:30 01/30/25 09:01 Lisinopril 20 Mg Tablet PO 40 mg QAM [facility] Administration Melatonin 3 mg 01/19/25 22:39 01/19/25 23:16 Melatonin 3 Mg Tablet PO 3 mg HS PRN Administration Insomnia Metoprolol Tartrate 25 mg 01/27/25 21:00 01/30/25 16:38 Metoprolol Tartrate 25 Mg Tablet BY MOUTH Not Given Q12HR [facility] Morphine Sulfate 2 mg 01/30/25 16:38 01/30/25 22:49 Morphine Sulfate (*Crx) 2 Mg/Ml Inj IV PUSH 2 mg Q4H PRN Administration Pain Rated 7-10 Ondansetron HCl 4 mg 01/17/25 19:07 01/26/25 22:03 Ondansetron Inj 4 Mg/2 Ml Vial IV PUSH 4 mg Q4H PRN Administration Nausea Oxycodone HCl 5 mg 01/27/25 09:05 Oxycodone Hcl (*Crx) 5 Mg Tab Ir PO Q4H PRN Pain Rated 7-10 Pantoprazole Sodium 40 mg 01/31/25 11:40 02/01/25 09:25 Pantoprazole Sodium Iv 40 Mg Vial IV PUSH 40 mg QAM [facility] Administration Sodium Chloride 20 ml 01/24/25 14:41 Central Line Flush IV PUSH PRN PRN after blood draws Sodium Chloride 10 ml 01/24/25 14:41 Central Line Flush IV PUSH PRN PRN with TPN bag changes Sodium Chloride 10 ml 01/24/25 22:00 02/01/25 06:29 Central Line Flush IV PUSH 10 ml Q8HR [facility] Administration Radiology Results: ITS Impressions Abdomen/Pelvis CT 01/17/25 18:07 IMPRESSION: Ascending aortic aneurysm measuring up to 5.6 cm. The descending thoracic aorta is mildly dilated to 3.1 cm. Consider nonemergent but timely outpatient CT angiography of the chest and appropriate referral for monitoring/potential intervention. Mild esophagitis/gastritis. Periesophageal lymphadenopathy. Hepatomegaly with steatosis. Mid small bowel obstruction, transition point in the left lateral abdomen. Small volume ascites. Bladder wall thickening, likely secondary to chronic outlet obstruction from prostatomegaly. Small Bowel X-Ray 01/18/25 15:02 IMPRESSION: 1. Small bowel obstruction. Chest X-Ray 01/24/25 14:53 IMPRESSION: Right PICC line with the tip overlying the right atrium. Cardiomegaly. Minimal opacification in the left lung base. Abdomen X-Ray 01/30/25 14:53 IMPRESSION: 1. Nasogastric tube tip in the stomach. 2. Dilated small bowel, likely adynamic ileus given the recent surgery. Labs Labs: Laboratory Results - last 24 hr 01/31/25 01/31/25 01/31/25 11:34 15:14 16:04 WBC 7.9 RBC 4.17 L Hgb 11.5 L Hct 38.4 L MCV 92.1 MCH 27.6 MCHC 29.9 L RDW 14.1 Plt Count 214 MPV 10.4 Immature Gran % (Auto) 0.5 Neut % (Auto) 76.5 H Lymph % (Auto) 10.4 L Bertie % (Auto) 9.0 H Eos % (Auto) 3.3 Baso % (Auto) 0.3 Lymph # (Auto) 0.82 L Bertie # (Auto) 0.7 H Eos # (Auto) 0.3 Baso # (Auto) 0.0 Abs Immat Gran (auto) 0.04 H Absolute Neuts (auto) 6.0 Absolute Nucleated RBC 0.000 Band Neutrophils % 0 Nucleated RBC % 0.0 Platelet Estimate Adequate Hypochromasia 1+ Schistocytes None seen APTT 26.3 Sodium 148 H Potassium 3.9 Chloride 110 H Carbon Dioxide 33 H Anion Gap 5 BUN 38 H Creatinine 1.24 Estim Creat Clear Calc 55 Estimated GFR 56 L Glucose 121 H POC Capillary Glucose 112 H 128 H Calcium 8.2 L Phosphorus Magnesium 2.3 Transferrin 210 Total Bilirubin 0.5 AST 32 ALT 64 H Alkaline Phosphatase 42 Total Protein 7.0 Albumin 3.4 L Triglycerides 01/31/25 01/31/25 02/01/25 19:44 23:11 03:40 WBC 7.7 RBC 4.39 L Hgb 12.1 L Hct 40.1 L MCV 91.3 MCH 27.6 MCHC 30.2 L RDW 14.2 Plt Count 217 MPV 10.2 Immature Gran % (Auto) 0.6 H Neut % (Auto) 73.4 H Lymph % (Auto) 13.4 L Bertie % (Auto) 9.1 H Eos % (Auto) 3.1 Baso % (Auto) 0.4 Lymph # (Auto) 1.03 Bertie # (Auto) 0.7 H Eos # (Auto) 0.2 Baso # (Auto) 0.0 Abs Immat Gran (auto) 0.05 H Absolute Neuts (auto) 5.7 Absolute Nucleated RBC 0.000 Band Neutrophils % Nucleated RBC % 0.0 Platelet Estimate Hypochromasia Schistocytes APTT Sodium 148 H Potassium 3.8 Chloride 109 H Carbon Dioxide 32 H Anion Gap 7 BUN 36 H Creatinine 1.25 Estim Creat Clear Calc 54 Estimated GFR 56 L Glucose 142 H POC Capillary Glucose 159 H 136 H Calcium 8.4 Phosphorus 3.4 Magnesium 2.4 H Transferrin Total Bilirubin 0.4 AST 30 ALT 58 H Alkaline Phosphatase 42 Total Protein 7.0 Albumin 3.4 L Triglycerides 213 H 02/01/25 06:09 WBC RBC Hgb Hct MCV MCH MCHC RDW Plt Count MPV Immature Gran % (Auto) Neut % (Auto) Lymph % (Auto) Bertie % (Auto) Eos % (Auto) Baso % (Auto) Lymph # (Auto) Bertie # (Auto) Eos # (Auto) Baso # (Auto) Abs Immat Gran (auto) Absolute Neuts (auto) Absolute Nucleated RBC Band Neutrophils % Nucleated RBC % Platelet Estimate Hypochromasia Schistocytes APTT Sodium Potassium Chloride Carbon Dioxide Anion Gap BUN Creatinine Estim Creat Clear Calc Estimated GFR Glucose POC Capillary Glucose 152 H Calcium Phosphorus Magnesium Transferrin Total Bilirubin AST ALT Alkaline Phosphatase Total Protein Albumin Triglycerides Quality VTE Prophylaxis VTE prophylaxis: mechanical ordered and pharmacologic ordered
--- NOTE | 2025-02-01 13:33 | P.PNGS_ITS ---
Progress Note: A&P Assessment and Plan (1) Adynamic ileus: Code(s): K56.0 - Paralytic ileus Status: Acute Assessment and Plan: His ileus seems to be resolving and bowel function has returned. He tolerated the NG clamping trial yesterday. Will remove his NG tube today and start a clear liquid diet. Will continue his TPN for today. Encouraged increasing his activity. He is up in the chair today and PT/OT is working with the patient. (2) Malnutrition compromising bodily function: Code(s): E46 - Unspecified protein-calorie malnutrition Status: Acute Assessment and Plan: Patient had recurrent ileus after his pulmonary condition decompensated. Continue TPN through his PICC line again today and consider stopping the TPN in the next 1-2 days if he is tolerating his diet. (3) SBO (small bowel obstruction): Code(s): K56.609 - Unspecified intestinal obstruction, unspecified as to partial versus complete obstruction Status: Acute Assessment and Plan: Resolved after exploratory laparotomy and adhesiolysis. (4) Chronic kidney disease, stage 3 (moderate): Code(s): N18.3 - Chronic kidney disease, stage 3 (moderate) Status: Chronic Assessment and Plan: Creatinine initially increased to about 3 but has come back down to normal now. Continue to monitor. (5) Acute respiratory failure: Code(s): J96.00 - Acute respiratory failure, unspecified whether with hypoxia or hypercapnia Status: Acute Assessment and Plan: Improving, remains off Bipap and only on 2 liters NC. Continue management per hospitalist service. Plan I have discussed the patient's case and plan of care with Dr. Gonsales. Subjective Subjective Date/Time Seen: 02/01/25 13:33 Post Op day: 14 Patient reports: no new complaints, flatus and bowel movement (x2) Interval history: Patient tolerated the clamping trial. No nausea, vomiting, or abdominal pain. He reports feeling well this morning with no specific complaints. He has had 2 BMs overnight. Exam Const: General: comfortable, no acute distress and awake Nutritional Appearance: obese GI: Other: Abdomen is mildly distended but improving. Midline incision is intact without redness or drainage. Virgie removed and steri strips applied. No tenderness or guarding. Bowels sounds present. Extrem: General: no calf tenderness and other (Brawny edema and venous stasis disease both lower extremities) Objective Data Vital Signs Vital Signs: Vital Signs - 24 hr 01/31/25 14:00 01/31/25 16:00 01/31/25 16:00 Temperature 98.2 F Pulse Rate 72 82 82 Respiratory Rate 22 H Blood Pressure 98/50 L Pulse Oximetry 98 Oxygen Delivery Oxygen Flow Rate 01/31/25 16:00 01/31/25 18:00 01/31/25 20:00 Temperature 98.4 F Pulse Rate 73 72 Respiratory Rate 16 Blood Pressure 139/64 Pulse Oximetry 98 94 Oxygen Delivery Nasal Cannula Oxygen Flow Rate 2 01/31/25 20:00 01/31/25 20:00 01/31/25 22:00 Temperature Pulse Rate 73 67 Respiratory Rate Blood Pressure Pulse Oximetry 97 Oxygen Delivery Nasal Cannula Oxygen Flow Rate 2 01/31/25 22:37 01/31/25 22:37 01/31/25 23:24 Temperature 98.2 F Pulse Rate 67 67 70 Respiratory Rate 18 20 Blood Pressure 155/74 H Pulse Oximetry 97 97 99 Oxygen Delivery Nasal Cannula Nasal Cannula Oxygen Flow Rate 2 02/01/25 00:00 02/01/25 00:00 02/01/25 02:00 Temperature Pulse Rate 71 69 Respiratory Rate Blood Pressure Pulse Oximetry 99 Oxygen Delivery Nasal Cannula Oxygen Flow Rate 2 02/01/25 04:00 02/01/25 04:00 02/01/25 04:00 Temperature 98.9 F Pulse Rate 72 74 Respiratory Rate 20 Blood Pressure 131/69 Pulse Oximetry 96 97 Oxygen Delivery Nasal Cannula Oxygen Flow Rate 2 02/01/25 06:00 02/01/25 08:00 02/01/25 08:00 Temperature 98.2 F Pulse Rate 73 69 Respiratory Rate 20 Blood Pressure 138/66 Pulse Oximetry 97 99 Oxygen Delivery Nasal Cannula Oxygen Flow Rate 2 02/01/25 08:00 02/01/25 10:00 02/01/25 12:00 Temperature 98 F Pulse Rate 69 69 72 Respiratory Rate 22 H Blood Pressure 155/76 H Pulse Oximetry 98 Oxygen Delivery Oxygen Flow Rate Intake/Output Intake/Output: Intake & Output 01/29/25 01/30/25 01/31/25 02/01/25 23:59 23:59 23:59 23:59 Intake Total 540 690 100 250 Output Total 2350 1690 675 Balance 540 -1660 -2500 -425 Meds/Results Medications: Active Medications Generic Name Dose Route Start Last Admin Trade Name Freq PRN Reason Stop Dose Admin Acetaminophen 650 mg 01/30/25 12:41 Acetaminophen 325 Mg Tablet PO Q4H PRN Mild Pain (1-3) or Fever Hydrocodone Bitart/Acetaminophen 1 tab 01/27/25 09:05 Hydrocodone/Acetaminophen (*Crx) 5-325 Mg Tablet PO Q4H PRN Pain Rated 4-6 Amlodipine Besylate 10 mg 01/27/25 18:00 01/30/25 16:38 Amlodipine Besylate 10 Mg Tablet BY MOUTH Not Given QPM [facility] Aspirin 325 mg 01/28/25 08:00 01/30/25 09:02 Aspirin 325 Mg Tablet BY MOUTH 325 mg DAILY@0800 [facility] Administration Clonidine HCl 1 patch 01/25/25 09:00 02/01/25 09:24 Clonidine 0.1 Mg/24 Hr Patch TRANSDERM 1 patch WEEKLY [facility] Administration Dextrose 12.5 gm 01/18/25 15:51 Dextrose 50% 25 Gm/50 Ml Syringe IV PUSH PRN PRN Hypoglycemia Protocol Doxazosin Mesylate 8 mg 01/26/25 09:00 01/30/25 09:01 Doxazosin Mesylate 4 Mg Tablet PO 8 mg DAILY [facility] Administration Enoxaparin Sodium 40 mg 01/19/25 11:45 02/01/25 09:24 Enoxaparin 40 Mg/0.4 Ml Syringe SUB-Q 40 mg DAILY [facility] Administration Glucagon 1 mg 01/18/25 15:51 Glucagon For Inj 1 Mg Vial IM PRN PRN Hypoglycemia Protocol Glucose 15 gm 01/18/25 15:51 Glucose Oral Gel 15 Gm Of Glucse In 37.5 Gm Tube PO PRN PRN Hypoglycemia Protocol Dextrose 1,000 mls @ 100 mls/hr 01/18/25 15:51 Dextrose 5% 1,000 Ml IVPB PRN PRN Hypoglycemia Protocol Dextrose 1,000 mls @ 50 mls/hr 01/31/25 12:00 Dextrose 10% IV CONT .Q20H PRN if PN is interrupted Multivitamins 1.25 ml/ 1,002.5 mls @ 40 mls/hr 01/31/25 12:00 01/31/25 13:35 Multivitamins 1.25 ml/ Amino IV CONT 40 mls/hr Acids/Electrolytes/Dextrose .Q24H [facility] Administration Protocol Fat Emulsion Intravenous 250 mls @ 20.833 mls/hr 01/31/25 12:00 02/01/25 01:35 Lipids 20% IVPB Infused Q24H [facility] Infusion Insulin Aspart 3 - 6 units 01/31/25 12:05 02/01/25 06:29 Insulin Aspart (*Bkc) 100 Units/Ml SUB-Q Not Given Q6HR [facility] Protocol Insulin Glargine 15 units 01/25/25 09:35 01/30/25 09:03 Insulin Glargine (*Bkc) 100 Units/Ml SUB-Q 15 units QAM [facility] Administration Levothyroxine Sodium 25 mcg 01/24/25 06:30 01/30/25 04:40 Levothyroxine Sodium 25 Mcg Tablet PO 25 mcg DAILY@0630 [facility] Administration Lidocaine 1 patch 01/19/25 13:35 02/01/25 09:24 Lidocaine 5% Patch TRANSDERM 1 patch DAILY [facility] Administration Lisinopril 40 mg 01/25/25 09:30 01/30/25 09:01 Lisinopril 20 Mg Tablet PO 40 mg QAM [facility] Administration Melatonin 3 mg 01/19/25 22:39 01/19/25 23:16 Melatonin 3 Mg Tablet PO 3 mg HS PRN Administration Insomnia Metoprolol Tartrate 25 mg 01/27/25 21:00 01/30/25 16:38 Metoprolol Tartrate 25 Mg Tablet BY MOUTH Not Given Q12HR [facility] Morphine Sulfate 2 mg 01/30/25 16:38 01/30/25 22:49 Morphine Sulfate (*Crx) 2 Mg/Ml Inj IV PUSH 2 mg Q4H PRN Administration Pain Rated 7-10 Ondansetron HCl 4 mg 01/17/25 19:07 01/26/25 22:03 Ondansetron Inj 4 Mg/2 Ml Vial IV PUSH 4 mg Q4H PRN Administration Nausea Oxycodone HCl 5 mg 01/27/25 09:05 Oxycodone Hcl (*Crx) 5 Mg Tab Ir PO Q4H PRN Pain Rated 7-10 Pantoprazole Sodium 40 mg 01/31/25 11:40 02/01/25 09:25 Pantoprazole Sodium Iv 40 Mg Vial IV PUSH 40 mg QAM [facility] Administration Sodium Chloride 20 ml 01/24/25 14:41 Central Line Flush IV PUSH PRN PRN after blood draws Sodium Chloride 10 ml 01/24/25 14:41 Central Line Flush IV PUSH PRN PRN with TPN bag changes Sodium Chloride 10 ml 01/24/25 22:00 02/01/25 06:29 Central Line Flush IV PUSH 10 ml Q8HR [facility] Administration Radiology Results: ITS Impressions Abdomen/Pelvis CT 01/17/25 18:07 IMPRESSION: Ascending aortic aneurysm measuring up to 5.6 cm. The descending thoracic aorta is mildly dilated to 3.1 cm. Consider nonemergent but timely outpatient CT angiography of the chest and appropriate referral for monitoring/potential intervention. Mild esophagitis/gastritis. Periesophageal lymphadenopathy. Hepatomegaly with steatosis. Mid small bowel obstruction, transition point in the left lateral abdomen. Small volume ascites. Bladder wall thickening, likely secondary to chronic outlet obstruction from prostatomegaly. Small Bowel X-Ray 01/18/25 15:02 IMPRESSION: 1. Small bowel obstruction. Chest X-Ray 01/24/25 14:53 IMPRESSION: Right PICC line with the tip overlying the right atrium. Cardiomegaly. Minimal opacification in the left lung base. Abdomen X-Ray 01/30/25 14:53 IMPRESSION: 1. Nasogastric tube tip in the stomach. 2. Dilated small bowel, likely adynamic ileus given the recent surgery. Labs Labs: Laboratory Results - last 24 hr 01/31/25 01/31/25 01/31/25 15:14 16:04 19:44 WBC 7.9 RBC 4.17 L Hgb 11.5 L Hct 38.4 L MCV 92.1 MCH 27.6 MCHC 29.9 L RDW 14.1 Plt Count 214 MPV 10.4 Immature Gran % (Auto) 0.5 Neut % (Auto) 76.5 H Lymph % (Auto) 10.4 L [place] % (Auto) 9.0 H Eos % (Auto) 3.3 Baso % (Auto) 0.3 Lymph # (Auto) 0.82 L [place] # (Auto) 0.7 H Eos # (Auto) 0.3 Baso # (Auto) 0.0 Abs Immat Gran (auto) 0.04 H Absolute Neuts (auto) 6.0 Absolute Nucleated RBC 0.000 Band Neutrophils % 0 Nucleated RBC % 0.0 Platelet Estimate Adequate Hypochromasia 1+ Schistocytes None seen APTT 26.3 Sodium 148 H Potassium 3.9 Chloride 110 H Carbon Dioxide 33 H Anion Gap 5 BUN 38 H Creatinine 1.24 Estim Creat Clear Calc 55 Estimated GFR 56 L Glucose 121 H POC Capillary Glucose 128 H 159 H Calcium 8.2 L Phosphorus Magnesium 2.3 Transferrin 210 Total Bilirubin 0.5 AST 32 ALT 64 H Alkaline Phosphatase 42 Total Protein 7.0 Albumin 3.4 L Triglycerides 01/31/25 02/01/25 02/01/25 23:11 03:40 06:09 WBC 7.7 RBC 4.39 L Hgb 12.1 L Hct 40.1 L MCV 91.3 MCH 27.6 MCHC 30.2 L RDW 14.2 Plt Count 217 MPV 10.2 Immature Gran % (Auto) 0.6 H Neut % (Auto) 73.4 H Lymph % (Auto) 13.4 L [place] % (Auto) 9.1 H Eos % (Auto) 3.1 Baso % (Auto) 0.4 Lymph # (Auto) 1.03 [place] # (Auto) 0.7 H Eos # (Auto) 0.2 Baso # (Auto) 0.0 Abs Immat Gran (auto) 0.05 H Absolute Neuts (auto) 5.7 Absolute Nucleated RBC 0.000 Band Neutrophils % Nucleated RBC % 0.0 Platelet Estimate Hypochromasia Schistocytes APTT Sodium 148 H Potassium 3.8 Chloride 109 H Carbon Dioxide 32 H Anion Gap 7 BUN 36 H Creatinine 1.25 Estim Creat Clear Calc 54 Estimated GFR 56 L Glucose 142 H POC Capillary Glucose 136 H 152 H Calcium 8.4 Phosphorus 3.4 Magnesium 2.4 H Transferrin Total Bilirubin 0.4 AST 30 ALT 58 H Alkaline Phosphatase 42 Total Protein 7.0 Albumin 3.4 L Triglycerides 213 H
[2025-02-01] MEDS: AMINO ACIDS 5%/D15W/E-LYTES/CA 1,000 ML with MULTIVITAMINS-12 INJ VIAL 1 1.25 ML, MULTI... 40 ML IV CONT (15:57)
[2025-02-01] MEDS: FAT EMULSIONS IV 20% 250 ML 20.8 ML IVPB (15:58)
[2025-02-01 16:19] LABS: Glucose Point of Care 146 mg/dl (65-105)
[2025-02-01 21:24] LABS: Glucose Point of Care 135 mg/dl (65-105)
[2025-02-02] MEDS: CENTRAL LINE FLUSH 10 ML IV PUSH ×3 (05:29→20:58)
[2025-02-02 05:41] LABS: Basophils Percent Auto 0.3 % (0.2-1.2); Eosinophils Absolute Auto 0.2 K/mm3 (0-0.3); Eosinophils Percent Auto 3.1 % (0-4.4); Hematocrit 38.6 % (42.0-52.0); Hemoglobin 11.5 g/dL (14.0-18.0); Immature Granulocyte Absolute 0.03 K/mm3 (0.00-0.031); Immature Granulocyte Percent A 0.5 % (0-0.5); Lymphocytes Absolute Auto 1.38 K/mm3 (0.9-3.2); Lymphocytes Percent Auto 22.4 % (18.3-44.2); Mean Corpuscular HGB Conc 29.8 g/dl (32-36); Mean Corpuscular Hemoglobin 27.6 pg (26-34); Mean Corpuscular Volume 92.8 fl (80-100); Mean Platelet Volume 10.1 fl (7.4-10.4); Monocytes Absolute Auto 0.6 K/mm3 (0.1-0.6); Monocytes Percent Auto 9.9 % (2.6-8.5); Neutrophils Absolute Auto 3.9 K/mm3 (1.3-6.7); Neutrophils Percent Auto 63.8 % (45.5-73.1); Platelet Count Result 219 k/mm3 (150-375); Red Blood Count 4.16 M/mm3 (4.6-6.20); Red Cell Distribution Width 14.2 % (11.5-14.5); White Blood Count 6.2 K/mm3 (4.5-10.0)
[2025-02-02 05:49] VITALS: BP 152/78; PULSE 62; RESP 18; TEMP 36.4; O2SAT 100
[2025-02-02 05:52] LABS: Anion Gap 6 mmol/L (4-12); Blood Urea Nitrogen 32 mg/dL (9-20); Carbon Dioxide 32 mmol/L (22-30); Chloride 105 mmol/L (98-107); Estimated CRCL calculation 60 ml/min; Estimated Glomerular Filt Rate > 60; Glucose 134 mg/dL (65-110); Magnesium 2.2 mg/dL (1.6-2.3); Potassium 3.7 mmol/L (3.4-5.0); Sodium 143 mmol/L (137-145)
[2025-02-02 05:59] LABS: Band Neutrophils Percent 0 % (0-6); Platelet Estimate Adequate (Adequate)
[2025-02-02 06:00] LABS: Anisocytosis 1+; Ovalocytes 1+; Schistocytes None Seen
[2025-02-02 08:00] VITALS: O2SAT 100
[2025-02-02 08:30] VITALS: O2SAT 92
[2025-02-02 08:53] LABS: Glucose Point of Care 127 mg/dl (65-105)
[2025-02-02] MEDS: ENOXAPARIN 40 MG/0.4 ML SYRINGE SUB-Q (10:25)
[2025-02-02] MEDS: LIDOCAINE 5% PATCH 1 PATCH TRANSDERM (10:25)
[2025-02-02] MEDS: PANTOPRAZOLE SODIUM IV 40 MG VIAL IV PUSH (10:25)
--- NOTE | 2025-02-02 11:01 | PCNFU ---
Nutrition Follow-Up Complete: Inadequate oral intake related to ileus as evidenced by NPO/CL day 6 Goal: Meet estimated nutrition needs Patient is progressing towards goal. Pt current nutrition is Clear Liquids/TPN at 40 ml/hr. Last recorded weight is 125.8 kg, down from 128.7 kg on admit. Bowel Motility: +BM reported 02/02 Labs Reviewed:Glu 134, BUN 32, HCt 38.6, Hgb 11.4, Alb 3.4 Meds Noted: Seroquel, Lopressor, Lantus, Protonix. Skin: WNL Additional Notes: Patient remains on a TPN at 40 m/hr, providing 1182 kcal/48 gm protein. He is tolerating clear liquids at this time. When advancing diet recommend Diabetic Consistent carb diet/Heart Healthy. Monitoring orders, diet advancement, weights, labs, plan of care Follow up every 3 days.
[2025-02-02 12:31] LABS: Glucose Point of Care 184 mg/dl (65-105)
--- NOTE | 2025-02-02 12:56 | P.PN_ITS ---
Progress Note: A&P Assessment and Plan (1) SBO (small bowel obstruction): Code(s): K56.609 - Unspecified intestinal obstruction, unspecified as to partial versus complete obstruction Status: Acute Assessment and Plan: Resolved after exploratory laparotomy and adhesiolysis. (2) Adynamic ileus: Code(s): K56.0 - Paralytic ileus Status: Acute Assessment and Plan: Patient had prolonged postoperative ileus after 1st laparotomy. Then he had some pulmonary issues and had a 2nd episode of ileus. That has now seemed to resolved. He has tolerated have a nasogastric tube removed and started on clear liquids. We will go ahead advanced to full liquids today. Hopefully will be able advanced into solid food tomorrow and then consider discharging from the hospital the next few days. We will need therapy to make a recommendation as to whether he will need correction care or perhaps even have him evaluate for acute rehab if he meets qualifications. Will convert him back to his home oral medications. Continue supportive management. Going to stop his TPN and lipids today. PICC line remains in place and will remove that prior to discharge. Subjective Date/time seen: 02/02/25 12:56 Interval history: Patient is doing well. Sitting up in a chair today. Had a nasogastric tube removed yesterday and started on clear liquids which he has tolerated well. No nausea vomiting. No worsening abdominal distension. He is passing a lot of flatus. White blood cell is normal. No fever tachycardia. Exam GI: Other: Abdomen is obese but soft. Minimal distention. Midline incision danilo have been removed and Steri-Strips in place. No redness or drainage from the incision. No incisional hernia. Neuro: Speech: normal speech Sensory Exam: normal sensation Extrem: General: normal to inspection Psych: Mental Status: mental status grossly normal Affect: normal affect Objective Data Vital Signs Vital Signs: Vital Signs - 24 hr 02/01/25 15:01 02/01/25 15:02 02/01/25 16:00 Temperature 36.8 C Pulse Rate 70 69 64 Respiratory Rate 18 22 H Blood Pressure 151/72 H Pulse Oximetry 97 97 97 Oxygen Delivery Nasal Cannula Nasal Cannula Oxygen Flow Rate 2 02/01/25 20:47 02/02/25 05:49 02/02/25 08:00 Temperature 36.8 C 36.4 C Pulse Rate 75 62 Respiratory Rate 20 18 Blood Pressure 122/66 152/78 H Pulse Oximetry 100 100 100 Oxygen Delivery Nasal Cannula Oxygen Flow Rate 1 02/02/25 08:30 Temperature Pulse Rate Respiratory Rate Blood Pressure Pulse Oximetry 92 Oxygen Delivery Nasal Cannula Oxygen Flow Rate 2 Intake/Output Intake/Output: Intake & Output 01/30/25 01/31/25 02/01/25 02/02/25 23:59 23:59 23:59 23:59 Intake Total 129 653 4365.5 980 Output Total 2350 2600 1575 Balance -1660 -2500 227.5 980 Meds/Results Medications: Active Medications Generic Name Dose Route Start Last Admin Trade Name Freq PRN Reason Stop Dose Admin Acetaminophen 650 mg 01/30/25 12:41 Acetaminophen 325 Mg Tablet PO Q4H PRN Mild Pain (1-3) or Fever Hydrocodone Bitart/Acetaminophen 1 tab 01/27/25 09:05 Hydrocodone/Acetaminophen (*Crx) 5-325 Mg Tablet PO Q4H PRN Pain Rated 4-6 Amlodipine Besylate 10 mg 01/27/25 18:00 01/30/25 16:38 Amlodipine Besylate 10 Mg Tablet BY MOUTH Not Given QPM [facility] Aspirin 325 mg 01/28/25 08:00 01/30/25 09:02 Aspirin 325 Mg Tablet BY MOUTH 325 mg DAILY@0800 [facility] Administration Clonidine HCl 1 patch 01/25/25 09:00 02/01/25 09:24 Clonidine 0.1 Mg/24 Hr Patch TRANSDERM 1 patch WEEKLY [facility] Administration Dextrose 12.5 gm 01/18/25 15:51 Dextrose 50% 25 Gm/50 Ml Syringe IV PUSH PRN PRN Hypoglycemia Protocol Doxazosin Mesylate 8 mg 01/26/25 09:00 01/30/25 09:01 Doxazosin Mesylate 4 Mg Tablet PO 8 mg DAILY [facility] Administration Enoxaparin Sodium 40 mg 01/19/25 11:45 02/02/25 10:25 Enoxaparin 40 Mg/0.4 Ml Syringe SUB-Q 40 mg DAILY [facility] Administration Glucagon 1 mg 01/18/25 15:51 Glucagon For Inj 1 Mg Vial IM PRN PRN Hypoglycemia Protocol Glucose 15 gm 01/18/25 15:51 Glucose Oral Gel 15 Gm Of Glucse In 37.5 Gm Tube PO PRN PRN Hypoglycemia Protocol Dextrose 1,000 mls @ 100 mls/hr 01/18/25 15:51 Dextrose 5% 1,000 Ml IVPB PRN PRN Hypoglycemia Protocol Dextrose 1,000 mls @ 50 mls/hr 01/31/25 12:00 Dextrose 10% IV CONT .Q20H PRN if PN is interrupted Insulin Aspart 3 - 6 units 02/01/25 17:00 02/02/25 12:48 Insulin Aspart (*Bkc) 100 Units/Ml SUB-Q Not Given TIDWM [facility] Protocol Insulin Glargine 15 units 01/25/25 09:35 01/30/25 09:03 Insulin Glargine (*Bkc) 100 Units/Ml SUB-Q 15 units QAM [facility] Administration Levothyroxine Sodium 25 mcg 01/24/25 06:30 01/30/25 04:40 Levothyroxine Sodium 25 Mcg Tablet PO 25 mcg DAILY@0630 [facility] Administration Lisinopril 40 mg 01/25/25 09:30 01/30/25 09:01 Lisinopril 20 Mg Table[facility] Administration Melatonin 3 mg 01/19/25 22:39 01/19/25 23:16 Melatonin 3 Mg Tablet PO 3 mg HS PRN Administration Insomnia Metoprolol Tartrate 25 mg 01/27/25 21:00 01/30/25 16:38 Metoprolol Tartrate 25 Mg Tablet BY MOUTH Not Given Q12HR [facility] Morphine Sulfate 2 mg 01/30/25 16:38 01/30/25 22:49 Morphine Sulfate (*Crx) 2 Mg/Ml Inj IV PUSH 2 mg Q4H PRN Administration Pain Rated 7-10 Ondansetron HCl 4 mg 01/17/25 19:07 01/26/25 22:03 Ondansetron Inj 4 Mg/2 Ml Vial IV PUSH 4 mg Q4H PRN Administration Nausea Oxycodone HCl 5 mg 01/27/25 09:05 Oxycodone Hcl (*Crx) 5 Mg Tab Ir PO Q4H PRN Pain Rated 7-10 Pantoprazole Sodium 40 mg 02/03/25 09:00 Pantoprazole 40 Mg Tablet PO QAM [facility] Sodium Chloride 20 ml 01/24/25 14:41 Central Line Flush IV PUSH PRN PRN after blood draws Sodium Chloride 10 ml 01/24/25 14:41 Central Line Flush IV PUSH PRN PRN with TPN bag changes Sodium Chloride 10 ml 01/24/25 22:00 02/02/25 05:29 Central Line Flush IV PUSH 10 ml Q8HR [facility] Administration Radiology Results: ITS Impressions Abdomen/Pelvis CT 01/17/25 18:07 IMPRESSION: Ascending aortic aneurysm measuring up to 5.6 cm. The descending thoracic aorta is mildly dilated to 3.1 cm. Consider nonemergent but timely outpatient CT angiography of the chest and appropriate referral for monitoring/potential intervention. Mild esophagitis/gastritis. Periesophageal lymphadenopathy. Hepatomegaly with steatosis. Mid small bowel obstruction, transition point in the left lateral abdomen. Small volume ascites. Bladder wall thickening, likely secondary to chronic outlet obstruction from prostatomegaly. Small Bowel X-Ray 01/18/25 15:02 IMPRESSION: 1. Small bowel obstruction. Chest X-Ray 01/24/25 14:53 IMPRESSION: Right PICC line with the tip overlying the right atrium. Cardiomegaly. Minimal opacification in the left lung base. Abdomen X-Ray 01/30/25 14:53 IMPRESSION: 1. Nasogastric tube tip in the stomach. 2. Dilated small bowel, likely adynamic ileus given the recent surgery. Labs Labs: Laboratory Results - last 24 hr 02/01/25 02/01/25 02/02/25 15:41 20:45 05:35 WBC 6.2 RBC 4.16 L Hgb 11.5 L Hct 38.6 L MCV 92.8 MCH 27.6 MCHC 29.8 L RDW 14.2 Plt Count 219 MPV 10.1 Immature Gran % (Auto) 0.5 Neut % (Auto) 63.8 Lymph % (Auto) 22.4 [place] % (Auto) 9.9 H Eos % (Auto) 3.1 Baso % (Auto) 0.3 Lymph # (Auto) 1.38 [place] # (Auto) 0.6 Eos # (Auto) 0.2 Baso # (Auto) 0.0 Abs Immat Gran (auto) 0.03 Absolute Neuts (auto) 3.9 Absolute Nucleated RBC 0.000 Band Neutrophils % 0 Nucleated RBC % 0.0 Platelet Estimate Adequate Anisocytosis 1+ Ovalocytes 1+ Schistocytes None seen Sodium 143 Potassium 3.7 Chloride 105 Carbon Dioxide 32 H Anion Gap 6 BUN 32 H Creatinine 1.12 Estim Creat Clear Calc 60 Estimated GFR > 60 Glucose 134 H POC Capillary Glucose 146 H 135 H Calcium 8.0 L Phosphorus 4.0 Magnesium 2.2 02/02/25 02/02/25 08:33 12:10 WBC RBC Hgb Hct MCV MCH MCHC RDW Plt Count MPV Immature Gran % (Auto) Neut % (Auto) Lymph % (Auto) [place] % (Auto) Eos % (Auto) Baso % (Auto) Lymph # (Auto) [place] # (Auto) Eos # (Auto) Baso # (Auto) Abs Immat Gran (auto) Absolute Neuts (auto) Absolute Nucleated RBC Band Neutrophils % Nucleated RBC % Platelet Estimate Anisocytosis Ovalocytes Schistocytes Sodium Potassium Chloride Carbon Dioxide Anion Gap BUN Creatinine Estim Creat Clear Calc Estimated GFR Glucose POC Capillary Glucose 127 H 184 H Calcium Phosphorus Magnesium
[2025-02-02 14:07] VITALS: BP 137/79; PULSE 74; RESP 18; TEMP 36.6; O2SAT 98
--- NOTE | 2025-02-02 17:00 | PM.IMPN ---
Progress Note: A&P Assessment and Plan (1) SBO (small bowel obstruction): Code(s): K56.609 - Unspecified intestinal obstruction, unspecified as to partial versus complete obstruction Status: Acute Assessment and Plan: 02/15: Patient was admitted for abdominal pain, small-bowel obstruction on abdominal CT scan -Surgery was consulted, patient was taken for surgery on 01/18/2025 for high-grade small-bowel obstruction secondary to abdominal adhesions, status post exploratory laparotomy with abdominal adhesiolysis. -continue Zosyn per surgery -Patient has developed ileus. Patient has NG tube in place which is on continue suction. bowel rest, NG tube decompression, -patient had a bowel movement. ? Trial of p.o. diet -management per General surgery -continue reglan, Dulcolax suppository has been ordered per surgery -discussed with general surgeon -01/24 started TPN 01/22: Obstructive series indicated Ileus 02/14: CT scan of the abdomen and pelvis showed mid small-bowel obstruction with transition point in the left lateral abdomen, small volume ascites, hepatomegaly with steatosis, bladder wall thickening likely secondary to chronic outlet obstruction prostatomegaly. Ascending aortic aneurysm measuring 5.6 cm, descending thoracic aorta is mildly dilated to 3.1 cm mild esophagitis/gastritis, periesophageal lymphadenopathy. (2) Hypertension: Qualifiers: Hypertension type: primary hypertension Qualified Code(s): I10 - Essential (primary) hypertension Code(s): I10 - Essential (primary) hypertension Status: Acute Assessment and Plan: Patient currently off nicardipine infusion with improvement since he has abdominal aortic aneurysm. Off Cardizem infusion as patient is in sinus rhythm. Continue p.o. metoprolol , Norvasc, lisinopril Increase doxazosin to 8 mg mg Clonidine transdermal patch considering unreliable p.o. absorption (3) Diabetes mellitus with renal manifestation: Code(s): E11.29 - Type 2 diabetes mellitus with other diabetic kidney complication Status: Acute Assessment and Plan: Continue Accu-Cheks and sliding scale insulin Continue Lantus (4) BPH (benign prostatic hyperplasia): Code(s): N40.0 - Benign prostatic hyperplasia without lower urinary tract symptoms Status: Acute Assessment and Plan: Mckinney catheter in place, patient had adequate urine output (5) Atrial fibrillation with RVR: Code(s): I48.91 - Unspecified atrial fibrillation Status: Acute Assessment and Plan: Converted to sinus rhythm. Discontinue Cardizem infusion Continue p.o. metoprolol Systemic anticoagulation is on hold and resumption as per General surgery Aspirin (6) Acute respiratory failure: Code(s): J96.00 - Acute respiratory failure, unspecified whether with hypoxia or hypercapnia Status: Acute Assessment and Plan: Currently on nasal cannula. Likely atelectasis. Continue incentive spirometry. PT OT (7) Delirium: Code(s): R41.0 - Disorientation, unspecified Status: Acute Assessment and Plan: Off Precedex infusion. Improved. Much more alert and oriented. Restraints have been discontinued Sitter at bedside Continue Seroquel (8) Electrolyte abnormality: Code(s): E87.8 - Other disorders of electrolyte and fluid balance, not elsewhere classified Status: Acute Assessment and Plan: Replace low potassium and phos D5 water for hypernatremia (9) Elevated serum creatinine: Code(s): R79.89 - Other specified abnormal findings of blood chemistry Status: Acute Assessment and Plan: Patient was given Lasix yesterday 2 doses and there is elevation of creatinine is CO2 suggestive of contraction alkalosis Hold diuretics and will give some fluids today. Monitor urine output electrolytes and creatinine Plan patient was found to have High-grade small-bowel obstruction secondary to abdominal adhesions was seen by surgery service had exploratory laparotomy, abdominal adhesiolysis on 01/18, however patient became confused removed his IV, and was wondering in the hospital, patient was brought back to the room, patient was aggressive, transferred to ICU for sedation with Precedex, patient is now off Precedex, more alert and eating ice, stats does pass some gas, today patient talking stats feels better, his son is present in the room, patient is clinically improving. on 01/24 patient had been NPO for last seven day, surgeon has started patient has PICC line on TPN, last night patient had two large BM and he is now in IMU, NG tube is out and still some what confused sitter is with him, today patient is more alert, and oriented, no sitter however his family is present in the room, he does stats he does not feel like eating, he had BM and he is passing gas, will do KUB, will monitor further recommendation to follow. possible discharge tomorrow it it is okay with the surgery service. I called patient primary care Alida Dunn APRN and informed that patient has Ascending aortic aneurysm measuring up to 5.6 cm. Ms Dunn will refer patient to a vascular surgeon and will see patient in her clinic after discharge. today patient complains not feeling well, passing very little, poor appetite, patient had KUB showed partial obstruction, surgery service, reinserted NG tube, will monitor. on 01/31 patient with NG tube stated feeling better and was passing gas, seen surgery service recommended, have PT move the patient out of the bed and possible ambulate the patient. Today patient is out of bed, sitting in the chair, he had several BM, NG tube is out, was tolerating clear liquids, was seen by surgery service, advance to full liquids, goal to adavance to solid food as tolerated, will encourage patient to ambulate, will monitor and plan. DVT prophylaxis: Enoxaparin subcutaneous Stress ulcer prophylaxis: Protonix IV q.12 hours Nutrition: NG tube management as above, npo Code Status: Full code Switched to nasal cannula, incentive spirometry PT OT Subjective Date/time seen: 02/02/25 17:00 Interval history: Patient admitted for treatment of SBO and plan for exploratory laparotomy. Patient still hypertensive will increase IV metoprolol to 5 mg scheduled and schedule his IV hydralazine. Patient refusing NG tube but denies ABD pain, distention slightly improved. Patient reported flatulence but still no BM. H&P-Narrative He presents with a few hours' history of central abdominal pain; it is localized; rated 10 in intensity, aggravated by meals/drinks, alleviated by fasting; associated with bilious but non-bloody emesis, malaise, anorexia, chills and rigors. His last BM was days ago; he denies chest pain, dizziness, LOC, flank pain, dysuria, hematuria or HILL. patient was found to have High-grade small-bowel obstruction secondary to abdominal adhesions was seen by surgery service had exploratory laparotomy, abdominal adhesiolysis on 01/18, however patient became confused removed his IV, and was wondering in the hospital, patient was brought back to the room, patient was aggressive, transferred to ICU for sedation with Precedex, patient is now off Precedex, more alert and eating ice, stats does pass some gas, today patient talking stats feels better, his son is present in the room, patient is clinically improving. on 01/24 patient had been NPO for last seven day, surgeon has started patient has PICC line on TPN, last night patient had two large BM and he is now in IMU, NG tube is out and still some what confused sitter is with him, today patient is more alert, and oriented, no sitter however his family is present in the room, he does stats he does not feel like eating, he had BM and he is passing gas, will do KUB, will monitor further recommendation to follow. possible discharge tomorrow it it is okay with the surgery service. I called patient primary care Alida Dunn ERMA and informed that patient has Ascending aortic aneurysm measuring up to 5.6 cm. Ms Dunn will refer patient to a vascular surgeon and will see patient in her clinic after discharge. today patient complains not feeling well, passing very little, poor appetite, patient had KUB showed partial obstruction, surgery service, reinserted NG tube, will monitor. on 01/31 patient with NG tube stated feeling better and was passing gas, seen surgery service recommended, have PT move the patient out of the bed and possible ambulate the patient. Today patient is out of bed, sitting in the chair, he had several BM, NG tube is out, was tolerating clear liquids, was seen by surgery service, advance to full liquids, goal to adavance to solid food as tolerated, will encourage patient to ambulate, will monitor and plan. Review of Systems Review of Systems: All systems reviewed & are unremarkable except as noted in HPI and below (HPI) Exam Narrative: Patient is comfortable, NAD HEENT: clear LUNGS:CTA ABD: distended Lower extremities: no edema SKIN: nonjaundiced Neuro: Confused Objective Data Vital Signs Vital Signs: Vital Signs - 24 hr 02/01/25 20:47 02/02/25 05:49 02/02/25 08:00 Temperature 36.8 C 36.4 C Pulse Rate 75 62 Respiratory Rate 20 18 Blood Pressure 122/66 152/78 H Pulse Oximetry 100 100 100 Oxygen Delivery Nasal Cannula Oxygen Flow Rate 1 02/02/25 08:30 02/02/25 14:07 Temperature 36.6 C Pulse Rate 74 Respiratory Rate 18 Blood Pressure 137/79 Pulse Oximetry 92 98 Oxygen Delivery Nasal Cannula Oxygen Flow Rate 2 Intake/Output Intake/Output: Intake & Output 01/30/25 01/31/25 02/01/25 02/02/25 23:59 23:59 23:59 23:59 Intake Total 155 681 0783.5 1460 Output Total 2350 2600 1575 Balance -1660 -2500 227.5 1460 Meds/Results Medications: Active Medications Generic Name Dose Route Start Last Admin Trade Name Freq PRN Reason Stop Dose Admin Acetaminophen 650 mg 01/30/25 12:41 Acetaminophen 325 Mg Tablet PO Q4H PRN Mild Pain (1-3) or Fever Hydrocodone Bitart/Acetaminophen 1 tab 01/27/25 09:05 Hydrocodone/Acetaminophen (*Crx) 5-325 Mg Tablet PO Q4H PRN Pain Rated 4-6 Amlodipine Besylate 10 mg 01/27/25 18:00 01/30/25 16:38 Amlodipine Besylate 10 Mg Tablet BY MOUTH Not Given QPM [facility] Aspirin 325 mg 01/28/25 08:00 01/30/25 09:02 Aspirin 325 Mg Tablet BY MOUTH 325 mg DAILY@0800 [facility] Administration Clonidine HCl 1 patch 01/25/25 09:00 02/01/25 09:24 Clonidine 0.1 Mg/24 Hr Patch TRANSDERM 1 patch WEEKLY [facility] Administration Dextrose 12.5 gm 01/18/25 15:51 Dextrose 50% 25 Gm/50 Ml Syringe IV PUSH PRN PRN Hypoglycemia Protocol Doxazosin Mesylate 8 mg 01/26/25 09:00 01/30/25 09:01 Doxazosin Mesylate 4 Mg Tablet PO 8 mg DAILY [facility] Administration Enoxaparin Sodium 40 mg 01/19/25 11:45 02/02/25 10:25 Enoxaparin 40 Mg/0.4 Ml Syringe SUB-Q 40 mg DAILY [facility] Administration Glucagon 1 mg 01/18/25 15:51 Glucagon For Inj 1 Mg Vial IM PRN PRN Hypoglycemia Protocol Glucose 15 gm 01/18/25 15:51 Glucose Oral Gel 15 Gm Of Glucse In 37.5 Gm Tube PO PRN PRN Hypoglycemia Protocol Dextrose 1,000 mls @ 100 mls/hr 01/18/25 15:51 Dextrose 5% 1,000 Ml IVPB PRN PRN Hypoglycemia Protocol Dextrose 1,000 mls @ 50 mls/hr 01/31/25 12:00 Dextrose 10% IV CONT .Q20H PRN if PN is interrupted Insulin Aspart 3 - 6 units 02/01/25 17:00 02/02/25 12:48 Insulin Aspart (*Bkc) 100 Units/Ml SUB-Q Not Given TIDWM [facility] Protocol Insulin Glargine 15 units 01/25/25 09:35 01/30/25 09:03 Insulin Glargine (*Bkc) 100 Units/Ml SUB-Q 15 units QAM [facility] Administration Levothyroxine Sodium 25 mcg 01/24/25 06:30 01/30/25 04:40 Levothyroxine Sodium 25 Mcg Tablet PO 25 mcg DAILY@0630 [facility] Administration Lisinopril 40 mg 01/25/25 09:30 01/30/25 09:01 Lisinopril 20 Mg Tablet PO 40 mg QAM [facility] Administration Melatonin 3 mg 01/19/25 22:39 01/19/25 23:16 Melatonin 3 Mg Tablet PO 3 mg HS PRN Administration Insomnia Metoprolol Tartrate 25 mg 01/27/25 21:00 01/30/25 16:38 Metoprolol Tartrate 25 Mg Tablet BY MOUTH Not Given Q12HR [facility] Morphine Sulfate 2 mg 01/30/25 16:38 01/30/25 22:49 Morphine Sulfate (*Crx) 2 Mg/Ml Inj IV PUSH 2 mg Q4H PRN Administration Pain Rated 7-10 Ondansetron HCl 4 mg 01/17/25 19:07 01/26/25 22:03 Ondansetron Inj 4 Mg/2 Ml Vial IV PUSH 4 mg Q4H PRN Administration Nausea Oxycodone HCl 5 mg 01/27/25 09:05 Oxycodone Hcl (*Crx) 5 Mg Tab Ir PO Q4H PRN Pain Rated 7-10 Pantoprazole Sodium 40 mg 02/03/25 09:00 Pantoprazole 40 Mg Tablet PO QAM [facility] Sodium Chloride 20 ml 01/24/25 14:41 Central Line Flush IV PUSH PRN PRN after blood draws Sodium Chloride 10 ml 01/24/25 14:41 Central Line Flush IV PUSH PRN PRN with TPN bag changes Sodium Chloride 10 ml 01/24/25 22:00 02/02/25 13:19 Central Line Flush IV PUSH 10 ml Q8HR [facility] Administration Radiology Results: ITS Impressions Abdomen/Pelvis CT 01/17/25 18:07 IMPRESSION: Ascending aortic aneurysm measuring up to 5.6 cm. The descending thoracic aorta is mildly dilated to 3.1 cm. Consider nonemergent but timely outpatient CT angiography of the chest and appropriate referral for monitoring/potential intervention. Mild esophagitis/gastritis. Periesophageal lymphadenopathy. Hepatomegaly with steatosis. Mid small bowel obstruction, transition point in the left lateral abdomen. Small volume ascites. Bladder wall thickening, likely secondary to chronic outlet obstruction from prostatomegaly. Small Bowel X-Ray 01/18/25 15:02 IMPRESSION: 1. Small bowel obstruction. Chest X-Ray 01/24/25 14:53 IMPRESSION: Right PICC line with the tip overlying the right atrium. Cardiomegaly. Minimal opacification in the left lung base. Abdomen X-Ray 01/30/25 14:53 IMPRESSION: 1. Nasogastric tube tip in the stomach. 2. Dilated small bowel, likely adynamic ileus given the recent surgery. Labs Labs: Laboratory Results - last 24 hr 02/01/25 02/02/25 02/02/25 20:45 05:35 08:33 WBC 6.2 RBC 4.16 L Hgb 11.5 L Hct 38.6 L MCV 92.8 MCH 27.6 MCHC 29.8 L RDW 14.2 Plt Count 219 MPV 10.1 Immature Gran % (Auto) 0.5 Neut % (Auto) 63.8 Lymph % (Auto) 22.4 Bacon % (Auto) 9.9 H Eos % (Auto) 3.1 Baso % (Auto) 0.3 Lymph # (Auto) 1.38 Bacon # (Auto) 0.6 Eos # (Auto) 0.2 Baso # (Auto) 0.0 Abs Immat Gran (auto) 0.03 Absolute Neuts (auto) 3.9 Absolute Nucleated RBC 0.000 Band Neutrophils % 0 Nucleated RBC % 0.0 Platelet Estimate Adequate Anisocytosis 1+ Ovalocytes 1+ Schistocytes None seen Sodium 143 Potassium 3.7 Chloride 105 Carbon Dioxide 32 H Anion Gap 6 BUN 32 H Creatinine 1.12 Estim Creat Clear Calc 60 Estimated GFR > 60 Glucose 134 H POC Capillary Glucose 135 H 127 H Calcium 8.0 L Phosphorus 4.0 Magnesium 2.2 02/02/25 12:10 WBC RBC Hgb Hct MCV MCH MCHC RDW Plt Count MPV Immature Gran % (Auto) Neut % (Auto) Lymph % (Auto) Bacon % (Auto) Eos % (Auto) Baso % (Auto) Lymph # (Auto) Bacon # (Auto) Eos # (Auto) Baso # (Auto) Abs Immat Gran (auto) Absolute Neuts (auto) Absolute Nucleated RBC Band Neutrophils % Nucleated RBC % Platelet Estimate Anisocytosis Ovalocytes Schistocytes Sodium Potassium Chloride Carbon Dioxide Anion Gap BUN Creatinine Estim Creat Clear Calc Estimated GFR Glucose POC Capillary Glucose 184 H Calcium Phosphorus Magnesium Quality VTE Prophylaxis VTE prophylaxis: mechanical ordered and pharmacologic ordered
[2025-02-02 17:31] LABS: Glucose Point of Care 128 mg/dl (65-105)
[2025-02-02] MEDS: amLODIPine BESYLATE 10 MG TABLET BY MOUTH (17:33)
[2025-02-02 20:00] VITALS: O2SAT 100
[2025-02-02] MEDS: METOPROLOL TARTRATE 25 MG TABLET BY MOUTH (20:58)
[2025-02-02] MEDS: MELATONIN 3 MG TABLET PO (20:58)
[2025-02-02 23:22] VITALS: BP 139/76; PULSE 62; RESP 20; TEMP 36.7; O2SAT 97
[2025-02-02 23:57] LABS: Glucose Point of Care 139 mg/dl (65-105)
[2025-02-03 04:34] VITALS: BP 117/68; PULSE 61; RESP 18; TEMP 36.7; O2SAT 97
[2025-02-03 07:53] VITALS: O2SAT 95
[2025-02-03] MEDS: CENTRAL LINE FLUSH 10 ML IV PUSH ×3 (08:45→21:38)
[2025-02-03] MEDS: PANTOPRAZOLE 40 MG TABLET PO (08:46)
[2025-02-03] MEDS: lisinopriL 20 MG TABLET 40 MG PO (08:46)
[2025-02-03] MEDS: DOXAZOSIN MESYLATE 4 MG TABLET 8 MG PO (08:46)
[2025-02-03 08:47] VITALS: PULSE 64
[2025-02-03] MEDS: METOPROLOL TARTRATE 25 MG TABLET BY MOUTH ×2 (08:47→21:37)
[2025-02-03] MEDS: ENOXAPARIN 40 MG/0.4 ML SYRINGE SUB-Q (08:47)
[2025-02-03 08:56] LABS: Glucose Point of Care 113 mg/dl (65-105)
[2025-02-03 09:03] LABS: Hematocrit 38.2 % (42.0-52.0); Hemoglobin 11.7 g/dL (14.0-18.0); Mean Corpuscular HGB Conc 30.6 g/dl (32-36); Mean Corpuscular Hemoglobin 27.5 pg (26-34); Mean Corpuscular Volume 89.7 fl (80-100); Platelet Count Result 236 k/mm3 (150-375); Red Blood Count 4.26 M/mm3 (4.6-6.20); White Blood Count 6.4 K/mm3 (4.5-10.0)
[2025-02-03 09:17] LABS: Anion Gap 8 mmol/L (4-12); Blood Urea Nitrogen 24 mg/dL (9-20); Calcium 8.4 mg/dL (8.4-10.2); Carbon Dioxide 31 mmol/L (22-30); Chloride 101 mmol/L (98-107); Estimated CRCL calculation 66 ml/min; Estimated Glomerular Filt Rate > 60; Glucose 123 mg/dL (65-110); Magnesium 1.9 mg/dL (1.6-2.3); Potassium 3.6 mmol/L (3.4-5.0); Sodium 140 mmol/L (137-145)
--- NOTE | 2025-02-03 09:35 | PCPTNOTE ---
Attempted to see patient at 932, but reports he needs some more time to let his meal settle before getting up. Physical therapy will attempt later as time allows.
--- NOTE | 2025-02-03 09:37 | PCPTNOTE ---
Attempted to see at 932, but patient wanting his meal to settle after eating. Physical therapy will attempt to see later as time allows.
--- NOTE | 2025-02-03 11:29 | WPDPN ---
Progress Note: A&P Assessment and Plan (1) SBO (small bowel obstruction): Code(s): K56.609 - Unspecified intestinal obstruction, unspecified as to partial versus complete obstruction Status: Acute Assessment and Plan: Resolved after exploratory laparotomy and adhesiolysis. (2) Adynamic ileus: Code(s): K56.0 - Paralytic ileus Status: Acute Assessment and Plan: Resolved now. Having bowel movements. Tolerating soft food. He continues to work on physical therapy and occupational therapy. I think [facility] this he lives at home alone and then transition to going back home and being independent. Will have case management work on placement. (3) Ascending aortic aneurysm: Qualifiers: Presence of rupture: without rupture Qualified Code(s): I71.21 - Aneurysm of the ascending aorta, without rupture Code(s): I71.21 - Aneurysm of the ascending aorta, without rupture Status: Chronic Assessment and Plan: Patient will need outpatient evaluation by Cardiothoracic surgery. I did check with Vascular surgery at [facility] and they recommended outpatient evaluation by Cardiothoracic surgery for an ascending aortic aneurysm. Subjective Date/time seen: 02/03/25 11:29 Interval history: Patient is doing well today. Up in chair. He is off oxygen. Had bowel movements last couple of days. Has tolerated soft diet. Seems to be doing pretty well. Exam GI: Other: Abdomen is obese and minimally distended. Midline incision is healing well without redness or drainage. No cellulitis. No incisional hernia. Objective Data Vital Signs Vital Signs: Vital Signs - 24 hr 02/02/25 14:07 02/02/25 20:00 02/02/25 23:22 Temperature 36.6 C 36.7 C Pulse Rate 74 62 Respiratory Rate 18 20 Blood Pressure 137/79 139/76 Pulse Oximetry 98 100 97 Oxygen Delivery Nasal Cannula Oxygen Flow Rate 1 02/03/25 04:34 02/03/25 07:53 02/03/25 08:47 Temperature 36.7 C Pulse Rate 61 64 Respiratory Rate 18 Blood Pressure 117/68 Pulse Oximetry 97 95 Oxygen Delivery Room Air Oxygen Flow Rate Intake/Output Intake/Output: Intake & Output 01/31/25 02/01/25 02/02/25 02/03/25 23:59 23:59 23:59 23:59 Intake Total 100 1802.5 1460 886 Output Total 2600 1575 Balance -2500 227.5 1460 886 Meds/Results Medications: Active Medications Generic Name Dose Route Start Last Admin Trade Name Freq PRN Reason Stop Dose Admin Acetaminophen 650 mg 01/30/25 12:41 Acetaminophen 325 Mg Tablet PO Q4H PRN Mild Pain (1-3) or Fever Hydrocodone Bitart/Acetaminophen 1 tab 01/27/25 09:05 Hydrocodone/Acetaminophen (*Crx) 5-325 Mg Tablet PO Q4H PRN Pain Rated 4-6 Amlodipine Besylate 10 mg 01/27/25 18:00 02/02/25 17:33 Amlodipine Besylate 10 Mg Tablet BY MOUTH 10 mg QPM [facility] Administration Aspirin 325 mg 01/28/25 08:00 01/30/25 09:02 Aspirin 325 Mg Tablet BY MOUTH 325 mg DAILY@0800 [facility] Administration Clonidine HCl 1 patch 01/25/25 09:00 02/01/25 09:24 Clonidine 0.1 Mg/24 Hr Patch TRANSDERM 1 patch WEEKLY [facility] Administration Dextrose 12.5 gm 01/18/25 15:51 Dextrose 50% 25 Gm/50 Ml Syringe IV PUSH PRN PRN Hypoglycemia Protocol Doxazosin Mesylate 8 mg 01/26/25 09:00 02/03/25 08:46 Doxazosin Mesylate 4 Mg Tablet PO 8 mg DAILY [facility] Administration Enoxaparin Sodium 40 mg 01/19/25 11:45 02/03/25 08:47 Enoxaparin 40 Mg/0.4 Ml Syringe SUB-Q 40 mg DAILY [facility] Administration Glucagon 1 mg 01/18/25 15:51 Glucagon For Inj 1 Mg Vial IM PRN PRN Hypoglycemia Protocol Glucose 15 gm 01/18/25 15:51 Glucose Oral Gel 15 Gm Of Glucse In 37.5 Gm Tube PO PRN PRN Hypoglycemia Protocol Dextrose 1,000 mls @ 100 mls/hr 01/18/25 15:51 Dextrose 5% 1,000 Ml IVPB PRN PRN Hypoglycemia Protocol Dextrose 1,000 mls @ 50 mls/hr 01/31/25 12:00 Dextrose 10% IV CONT .Q20H PRN if PN is interrupted Insulin Aspart 3 - 6 units 02/01/25 17:00 02/03/25 08:52 Insulin Aspart (*Bkc) 100 Units/Ml SUB-Q Not Given TIDWM [facility] Protocol Insulin Glargine 15 units 01/25/25 09:35 01/30/25 09:03 Insulin Glargine (*Bkc) 100 Units/Ml [facility] Levothyroxine Sodium 25 mcg 01/24/25 06:30 01/30/25 04:40 Levothyroxine Sodium 25 Mcg Tablet PO 25 mcg DAILY@0630 [facility] Administration Lisinopril 40 mg 01/25/25 09:30 02/03/25 08:46 Lisinopril 20 Mg Tablet PO 40 mg QAM [facility] Administration Melatonin 3 mg 01/19/25 22:39 02/02/25 20:58 Melatonin 3 Mg Tablet PO 3 mg HS PRN Administration Insomnia Metoprolol Tartrate 25 mg 01/27/25 21:00 02/03/25 08:47 Metoprolol Tartrate 25 Mg Tablet BY MOUTH 25 mg Q12HR [facility] Administration Morphine Sulfate 2 mg 01/30/25 16:38 01/30/25 22:49 Morphine Sulfate (*Crx) 2 Mg/Ml Inj IV PUSH 2 mg Q4H PRN Administration Pain Rated 7-10 Ondansetron HCl 4 mg 01/17/25 19:07 01/26/25 22:03 Ondansetron Inj 4 Mg/2 Ml Vial IV PUSH 4 mg Q4H PRN Administration Nausea Oxycodone HCl 5 mg 01/27/25 09:05 Oxycodone Hcl (*Crx) 5 Mg Tab Ir PO Q4H PRN Pain Rated 7-10 Pantoprazole Sodium 40 mg 02/03/25 09:00 02/03/25 08:46 Pantoprazole 40 Mg Tablet PO 40 mg QAM [facility] Administration Sodium Chloride 20 ml 01/24/25 14:41 Central Line Flush IV PUSH PRN PRN after blood draws Sodium Chloride 10 ml 01/24/25 14:41 Central Line Flush IV PUSH PRN PRN with TPN bag changes Sodium Chloride 10 ml 01/24/25 22:00 02/03/25 08:45 Central Line Flush IV PUSH 10 ml Q8HR [facility] Administration Radiology Results: ITS Impressions Abdomen/Pelvis CT 01/17/25 18:07 IMPRESSION: Ascending aortic aneurysm measuring up to 5.6 cm. The descending thoracic aorta is mildly dilated to 3.1 cm. Consider nonemergent but timely outpatient CT angiography of the chest and appropriate referral for monitoring/potential intervention. Mild esophagitis/gastritis. Periesophageal lymphadenopathy. Hepatomegaly with steatosis. Mid small bowel obstruction, transition point in the left lateral abdomen. Small volume ascites. Bladder wall thickening, likely secondary to chronic outlet obstruction from prostatomegaly. Small Bowel X-Ray 01/18/25 15:02 IMPRESSION: 1. Small bowel obstruction. Chest X-Ray 01/24/25 14:53 IMPRESSION: Right PICC line with the tip overlying the right atrium. Cardiomegaly. Minimal opacification in the left lung base. Abdomen X-Ray 01/30/25 14:53 IMPRESSION: 1. Nasogastric tube tip in the stomach. 2. Dilated small bowel, likely adynamic ileus given the recent surgery. Labs Labs: Laboratory Results - last 24 hr 02/02/25 02/02/25 02/02/25 12:10 16:53 23:16 WBC RBC Hgb Hct MCV MCH MCHC RDW Plt Count MPV Sodium Potassium Chloride Carbon Dioxide Anion Gap BUN Creatinine Estim Creat Clear Calc Estimated GFR Glucose POC Capillary Glucose 184 H 128 H 139 H Calcium Magnesium 02/03/25 02/03/25 08:46 08:58 WBC 6.4 RBC 4.26 L Hgb 11.7 L Hct 38.2 L MCV 89.7 MCH 27.5 MCHC 30.6 L RDW 14.0 Plt Count 236 MPV 10.0 Sodium 140 Potassium 3.6 Chloride 101 Carbon Dioxide 31 H Anion Gap 8 BUN 24 H Creatinine 1.01 Estim Creat Clear Calc 66 Estimated GFR > 60 Glucose 123 H POC Capillary Glucose 113 H Calcium 8.4 Magnesium 1.9
[2025-02-03 12:14] LABS: Glucose Point of Care 137 mg/dl (65-105)
--- NOTE | 2025-02-03 13:53 | PM.IMPN ---
Progress Note: A&P Assessment and Plan (1) SBO (small bowel obstruction): Code(s): K56.609 - Unspecified intestinal obstruction, unspecified as to partial versus complete obstruction Status: Acute Assessment and Plan: 02/15: Patient was admitted for abdominal pain, small-bowel obstruction on abdominal CT scan -Surgery was consulted, patient was taken for surgery on 01/18/2025 for high-grade small-bowel obstruction secondary to abdominal adhesions, status post exploratory laparotomy with abdominal adhesiolysis. -continue Zosyn per surgery -Patient has developed ileus. Patient has NG tube in place which is on continue suction. bowel rest, NG tube decompression, -patient had a bowel movement. ? Trial of p.o. diet -management per General surgery -continue reglan, Dulcolax suppository has been ordered per surgery -discussed with general surgeon -01/24 started TPN 01/22: Obstructive series indicated Ileus 02/14: CT scan of the abdomen and pelvis showed mid small-bowel obstruction with transition point in the left lateral abdomen, small volume ascites, hepatomegaly with steatosis, bladder wall thickening likely secondary to chronic outlet obstruction prostatomegaly. Ascending aortic aneurysm measuring 5.6 cm, descending thoracic aorta is mildly dilated to 3.1 cm mild esophagitis/gastritis, periesophageal lymphadenopathy. (2) Hypertension: Qualifiers: Hypertension type: primary hypertension Qualified Code(s): I10 - Essential (primary) hypertension Code(s): I10 - Essential (primary) hypertension Status: Acute Assessment and Plan: Patient currently off nicardipine infusion with improvement since he has abdominal aortic aneurysm. Off Cardizem infusion as patient is in sinus rhythm. Continue p.o. metoprolol , Norvasc, lisinopril Increase doxazosin to 8 mg mg Clonidine transdermal patch considering unreliable p.o. absorption (3) Diabetes mellitus with renal manifestation: Code(s): E11.29 - Type 2 diabetes mellitus with other diabetic kidney complication Status: Acute Assessment and Plan: Continue Accu-Cheks and sliding scale insulin Continue Lantus (4) BPH (benign prostatic hyperplasia): Code(s): N40.0 - Benign prostatic hyperplasia without lower urinary tract symptoms Status: Acute Assessment and Plan: Mckinney catheter in place, patient had adequate urine output (5) Atrial fibrillation with RVR: Code(s): I48.91 - Unspecified atrial fibrillation Status: Acute Assessment and Plan: Converted to sinus rhythm. Discontinue Cardizem infusion Continue p.o. metoprolol Systemic anticoagulation is on hold and resumption as per General surgery Aspirin (6) Acute respiratory failure: Code(s): J96.00 - Acute respiratory failure, unspecified whether with hypoxia or hypercapnia Status: Acute Assessment and Plan: Currently on nasal cannula. Likely atelectasis. Continue incentive spirometry. PT OT (7) Delirium: Code(s): R41.0 - Disorientation, unspecified Status: Acute Assessment and Plan: Off Precedex infusion. Improved. Much more alert and oriented. Restraints have been discontinued Sitter at bedside Continue Seroquel (8) Electrolyte abnormality: Code(s): E87.8 - Other disorders of electrolyte and fluid balance, not elsewhere classified Status: Acute Assessment and Plan: Replace low potassium and phos D5 water for hypernatremia (9) Elevated serum creatinine: Code(s): R79.89 - Other specified abnormal findings of blood chemistry Status: Acute Assessment and Plan: Patient was given Lasix yesterday 2 doses and there is elevation of creatinine is CO2 suggestive of contraction alkalosis Hold diuretics and will give some fluids today. Monitor urine output electrolytes and creatinine Plan patient was found to have High-grade small-bowel obstruction secondary to abdominal adhesions was seen by surgery service had exploratory laparotomy, abdominal adhesiolysis on 01/18, however patient became confused removed his IV, and was wondering in the hospital, patient was brought back to the room, patient was aggressive, transferred to ICU for sedation with Precedex, patient is now off Precedex, more alert and eating ice, stats does pass some gas, today patient talking stats feels better, his son is present in the room, patient is clinically improving. on 01/24 patient had been NPO for last seven day, surgeon has started patient has PICC line on TPN, last night patient had two large BM and he is now in IMU, NG tube is out and still some what confused sitter is with him, today patient is more alert, and oriented, no sitter however his family is present in the room, he does stats he does not feel like eating, he had BM and he is passing gas, will do KUB, will monitor further recommendation to follow. possible discharge tomorrow it it is okay with the surgery service. I called patient primary care Alida Dunn APRN and informed that patient has Ascending aortic aneurysm measuring up to 5.6 cm. Ms Dunn will refer patient to a vascular surgeon and will see patient in her clinic after discharge. today patient complains not feeling well, passing very little, poor appetite, patient had KUB showed partial obstruction, surgery service, reinserted NG tube, will monitor. on 01/31 patient with NG tube stated feeling better and was passing gas, seen surgery service recommended, have PT move the patient out of the bed and possible ambulate the patient. Today patient is out of bed, sitting in the chair, he had several BM, NG tube is out, was tolerating clear liquids, was seen by surgery service, advance to full liquids, and today advance his diet to soft low fiber and low residue, and patient can be discharged to acute rehab, will encourage patient to ambulate, will monitor and plan. DVT prophylaxis: Enoxaparin subcutaneous Stress ulcer prophylaxis: Protonix IV q.12 hours Nutrition: NG tube management as above, npo Code Status: Full code Switched to nasal cannula, incentive spirometry PT OT Subjective Date/time seen: 02/03/25 13:53 Interval history: Patient admitted for treatment of SBO and plan for exploratory laparotomy. Patient still hypertensive will increase IV metoprolol to 5 mg scheduled and schedule his IV hydralazine. Patient refusing NG tube but denies ABD pain, distention slightly improved. Patient reported flatulence but still no BM. H&P-Narrative He presents with a few hours' history of central abdominal pain; it is localized; rated 10 in intensity, aggravated by meals/drinks, alleviated by fasting; associated with bilious but non-bloody emesis, malaise, anorexia, chills and rigors. His last BM was days ago; he denies chest pain, dizziness, LOC, flank pain, dysuria, hematuria or HILL. patient was found to have High-grade small-bowel obstruction secondary to abdominal adhesions was seen by surgery service had exploratory laparotomy, abdominal adhesiolysis on 01/18, however patient became confused removed his IV, and was wondering in the hospital, patient was brought back to the room, patient was aggressive, transferred to ICU for sedation with Precedex, patient is now off Precedex, more alert and eating ice, stats does pass some gas, today patient talking stats feels better, his son is present in the room, patient is clinically improving. on 01/24 patient had been NPO for last seven day, surgeon has started patient has PICC line on TPN, last night patient had two large BM and he is now in IMU, NG tube is out and still some what confused sitter is with him, today patient is more alert, and oriented, no sitter however his family is present in the room, he does stats he does not feel like eating, he had BM and he is passing gas, will do KUB, will monitor further recommendation to follow. possible discharge tomorrow it it is okay with the surgery service. I called patient primary care Alida Dunn ERMA and informed that patient has Ascending aortic aneurysm measuring up to 5.6 cm. Ms Dunn will refer patient to a vascular surgeon and will see patient in her clinic after discharge. today patient complains not feeling well, passing very little, poor appetite, patient had KUB showed partial obstruction, surgery service, reinserted NG tube, will monitor. on 01/31 patient with NG tube stated feeling better and was passing gas, seen surgery service recommended, have PT move the patient out of the bed and possible ambulate the patient. Today patient is out of bed, sitting in the chair, he had several BM, NG tube is out, was tolerating clear liquids, was seen by surgery service, advance to full liquids, and today advance his diet to soft low fiber and low residue, and patient can be discharged to acute rehab, will encourage patient to ambulate, will monitor and plan. Review of Systems Review of Systems: All systems reviewed & are unremarkable except as noted in HPI and below (HPI) Exam Narrative: Patient is comfortable, NAD HEENT: clear LUNGS:CTA ABD: distended Lower extremities: no edema SKIN: nonjaundiced Neuro: Confused Objective Data Vital Signs Vital Signs: Vital Signs - 24 hr 02/02/25 14:07 02/02/25 20:00 02/02/25 23:22 Temperature 36.6 C 36.7 C Pulse Rate 74 62 Respiratory Rate 18 20 Blood Pressure 137/79 139/76 Pulse Oximetry 98 100 97 Oxygen Delivery Nasal Cannula Oxygen Flow Rate 1 02/03/25 04:34 02/03/25 07:53 02/03/25 08:47 Temperature 36.7 C Pulse Rate 61 64 Respiratory Rate 18 Blood Pressure 117/68 Pulse Oximetry 97 95 Oxygen Delivery Room Air Oxygen Flow Rate Intake/Output Intake/Output: Intake & Output 01/31/25 02/01/25 02/02/25 02/03/25 23:59 23:59 23:59 23:59 Intake Total 100 1802.5 1460 886 Output Total 2600 1575 Balance -2500 227.5 1460 886 Meds/Results Medications: Active Medications Generic Name Dose Route Start Last Admin Trade Name Freq PRN Reason Stop Dose Admin Acetaminophen 650 mg 01/30/25 12:41 Acetaminophen 325 Mg Tablet PO Q4H PRN Mild Pain (1-3) or Fever Hydrocodone Bitart/Acetaminophen 1 tab 01/27/25 09:05 Hydrocodone/Acetaminophen (*Crx) 5-325 Mg Tablet PO Q4H PRN Pain Rated 4-6 Amlodipine Besylate 10 mg 01/27/25 18:00 02/02/25 17:33 Amlodipine Besylate 10 Mg Tablet BY MOUTH 10 mg QPM [facility] Administration Aspirin 325 mg 01/28/25 08:00 01/30/25 09:02 Aspirin 325 Mg Tablet BY MOUTH 325 mg DAILY@0800 [facility] Administration Clonidine HCl 1 patch 01/25/25 09:00 02/01/25 09:24 Clonidine 0.1 Mg/24 Hr Patch TRANSDERM 1 patch WEEKLY [facility] Administration Dextrose 12.5 gm 01/18/25 15:51 Dextrose 50% 25 Gm/50 Ml Syringe IV PUSH PRN PRN Hypoglycemia Protocol Doxazosin Mesylate 8 mg 01/26/25 09:00 02/03/25 08:46 Doxazosin Mesylate 4 Mg Tablet PO 8 mg DAILY [facility] Administration Enoxaparin Sodium 40 mg 01/19/25 11:45 02/03/25 08:47 Enoxaparin 40 Mg/0.4 Ml Syringe SUB-Q 40 mg DAILY [facility] Administration Glucagon 1 mg 01/18/25 15:51 Glucagon For Inj 1 Mg Vial IM PRN PRN Hypoglycemia Protocol Glucose 15 gm 01/18/25 15:51 Glucose Oral Gel 15 Gm Of Glucse In 37.5 Gm Tube PO PRN PRN Hypoglycemia Protocol Dextrose 1,000 mls @ 100 mls/hr 01/18/25 15:51 Dextrose 5% 1,000 Ml IVPB PRN PRN Hypoglycemia Protocol Dextrose 1,000 mls @ 50 mls/hr 01/31/25 12:00 Dextrose 10% IV CONT .Q20H PRN if PN is interrupted Insulin Aspart 3 - 6 units 02/01/25 17:00 02/03/25 11:44 Insulin Aspart (*Bkc) 100 Units/Ml SUB-Q Not Given TIDWM [facility] Protocol Insulin Glargine 15 units 01/25/25 09:35 01/30/25 09:03 Insulin Glargine (*Bkc) 100 Units/Ml SUB-Q 15 units QAM [facility] Administration Levothyroxine Sodium 25 mcg 01/24/25 06:30 01/30/25 04:40 Levothyroxine Sodium 25 Mcg Tablet PO 25 mcg DAILY@0630 [facility] Administration Lisinopril 40 mg 01/25/25 09:30 02/03/25 08:46 Lisinopril 20 Mg Tablet PO 40 mg QAM [facility] Administration Melatonin 3 mg 01/19/25 22:39 02/02/25 20:58 Melatonin 3 Mg Tablet PO 3 mg HS PRN Administration Insomnia Metoprolol Tartrate 25 mg 01/27/25 21:00 02/03/25 08:47 Metoprolol Tartrate 25 Mg Tablet BY MOUTH 25 mg Q12HR [facility] Administration Morphine Sulfate 2 mg 01/30/25 16:38 01/30/25 22:49 Morphine Sulfate (*Crx) 2 Mg/Ml Inj IV PUSH 2 mg Q4H PRN Administration Pain Rated 7-10 Ondansetron HCl 4 mg 01/17/25 19:07 01/26/25 22:03 Ondansetron Inj 4 Mg/2 Ml Vial IV PUSH 4 mg Q4H PRN Administration Nausea Oxycodone HCl 5 mg 01/27/25 09:05 Oxycodone Hcl (*Crx) 5 Mg Tab Ir PO Q4H PRN Pain Rated 7-10 Pantoprazole Sodium 40 mg 02/03/25 09:00 02/03/25 08:46 Pantoprazole 40 Mg Tablet PO 40 mg QAM [facility] Administration Sodium Chloride 20 ml 01/24/25 14:41 Central Line Flush IV PUSH PRN PRN after blood draws Sodium Chloride 10 ml 01/24/25 14:41 Central Line Flush IV PUSH PRN PRN with TPN bag changes Sodium Chloride 10 ml 01/24/25 22:00 02/03/25 08:45 Central Line Flush IV PUSH 10 ml Q8HR [facility] Administration Radiology Results: ITS Impressions Abdomen/Pelvis CT 01/17/25 18:07 IMPRESSION: Ascending aortic aneurysm measuring up to 5.6 cm. The descending thoracic aorta is mildly dilated to 3.1 cm. Consider nonemergent but timely outpatient CT angiography of the chest and appropriate referral for monitoring/potential intervention. Mild esophagitis/gastritis. Periesophageal lymphadenopathy. Hepatomegaly with steatosis. Mid small bowel obstruction, transition point in the left lateral abdomen. Small volume ascites. Bladder wall thickening, likely secondary to chronic outlet obstruction from prostatomegaly. Small Bowel X-Ray 01/18/25 15:02 IMPRESSION: 1. Small bowel obstruction. Chest X-Ray 01/24/25 14:53 IMPRESSION: Right PICC line with the tip overlying the right atrium. Cardiomegaly. Minimal opacification in the left lung base. Abdomen X-Ray 01/30/25 14:53 IMPRESSION: 1. Nasogastric tube tip in the stomach. 2. Dilated small bowel, likely adynamic ileus given the recent surgery. Labs Labs: Laboratory Results - last 24 hr 02/02/25 02/02/25 02/03/25 16:53 23:16 08:46 WBC RBC Hgb Hct MCV MCH MCHC RDW Plt Count MPV Sodium Potassium Chloride Carbon Dioxide Anion Gap BUN Creatinine Estim Creat Clear Calc Estimated GFR Glucose POC Capillary Glucose 128 H 139 H 113 H Calcium Magnesium 02/03/25 02/03/25 08:58 11:44 WBC 6.4 RBC 4.26 L Hgb 11.7 L Hct 38.2 L MCV 89.7 MCH 27.5 MCHC 30.6 L RDW 14.0 Plt Count 236 MPV 10.0 Sodium 140 Potassium 3.6 Chloride 101 Carbon Dioxide 31 H Anion Gap 8 BUN 24 H Creatinine 1.01 Estim Creat Clear Calc 66 Estimated GFR > 60 Glucose 123 H POC Capillary Glucose 137 H Calcium 8.4 Magnesium 1.9 Quality VTE Prophylaxis VTE prophylaxis: mechanical ordered and pharmacologic ordered
[2025-02-03 14:00] VITALS: BP 120/70; PULSE 81; RESP 18; TEMP 36.8; O2SAT 96
[2025-02-03 16:45] LABS: Glucose Point of Care 139 mg/dl (65-105)
[2025-02-03] MEDS: amLODIPine BESYLATE 10 MG TABLET BY MOUTH (18:12)
[2025-02-03 20:00] VITALS: O2SAT 100
[2025-02-03 20:56] VITALS: BP 149/82; PULSE 61; RESP 18; TEMP 36.6; O2SAT 97
[2025-02-03 23:15] LABS: Glucose Point of Care 152 mg/dl (65-105)
[2025-02-04 04:04] VITALS: BP 135/76; PULSE 56; RESP 18; TEMP 36.7; O2SAT 97
[2025-02-04] MEDS: CENTRAL LINE FLUSH 10 ML IV PUSH ×3 (05:04→22:59)
[2025-02-04 06:10] LABS: Hematocrit 35.6 % (42.0-52.0); Mean Corpuscular HGB Conc 30.9 g/dl (32-36); Mean Corpuscular Hemoglobin 27.5 pg (26-34); Mean Platelet Volume 9.9 fl (7.4-10.4); Platelet Count Result 225 k/mm3 (150-375); Red Cell Distribution Width 13.6 % (11.5-14.5); White Blood Count 5.7 K/mm3 (4.5-10.0)
[2025-02-04 06:26] LABS: Anion Gap 9 mmol/L (4-12); Blood Urea Nitrogen 19 mg/dL (9-20); Calcium 8.6 mg/dL (8.4-10.2); Carbon Dioxide 29 mmol/L (22-30); Chloride 100 mmol/L (98-107); Estimated CRCL calculation 68 ml/min; Estimated Glomerular Filt Rate > 60; Glucose 138 mg/dL (65-110); Magnesium 1.8 mg/dL (1.6-2.3); Potassium 3.7 mmol/L (3.4-5.0); Sodium 138 mmol/L (137-145)
[2025-02-04 07:53] LABS: Glucose Point of Care 136 mg/dl (65-105)
[2025-02-04 09:30] VITALS: BP 125/76
[2025-02-04 09:32] VITALS: PULSE 65
[2025-02-04] MEDS: lisinopriL 20 MG TABLET 40 MG PO (09:32)
[2025-02-04] MEDS: METOPROLOL TARTRATE 25 MG TABLET BY MOUTH ×2 (09:32→20:25)
[2025-02-04] MEDS: ENOXAPARIN 40 MG/0.4 ML SYRINGE SUB-Q (09:32)
[2025-02-04] MEDS: PANTOPRAZOLE 40 MG TABLET PO (09:33)
[2025-02-04] MEDS: DOXAZOSIN MESYLATE 4 MG TABLET 8 MG PO (09:33)
--- NOTE | 2025-02-04 09:35 | P.PN_ITS ---
Progress Note: A&P Assessment and Plan (1) SBO (small bowel obstruction): Code(s): K56.609 - Unspecified intestinal obstruction, unspecified as to partial versus complete obstruction Status: Acute Assessment and Plan: Resolved after exploratory laparotomy and adhesiolysis. Postoperative ileus is final resolved as well. He can discharge the hospital at the discretion of the hospitalist. Home with home health PT/OT versus long term facility. Patient will need to follow-up to see me in the office in 2 weeks. Can call the office for an appointment. Wound care and activity instructions are as noted in the discharge instructions. (2) Ascending aortic aneurysm: Qualifiers: Presence of rupture: without rupture Qualified Code(s): I71.21 - Aneurysm of the ascending aorta, without rupture Code(s): I71.21 - Aneurysm of the ascending aorta, without rupture Status: Chronic Assessment and Plan: Asymptomatic at this time. The aneurysm measures 5.6cm on CT scan. At the appropriate time as an outpatient he should be referred to see a cardiothoracic surgeon for evaluation. For an ascending aortic aneurysm the cardiothoracic surgeon is the more appropriate referral than vascular surgery. 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 Subjective Date/time seen: 02/04/25 09:35 Interval history: Patient is doing well this morning. No complaints. Has not had a bowel movement for couple days but is not complaining any abdominal pain and no nausea. He is tolerating full liquid and soft diet. Exam GI: Other: Abdomen is soft and obese. Nondistended. Midline incision is healing well without redness or drainage. Steri-Strips are in place. Virgie are out. Objective Data Vital Signs Vital Signs: Vital Signs - 24 hr 02/03/25 14:00 02/03/25 15:26 02/03/25 20:00 Temperature 36.8 C Pulse Rate 81 Respiratory Rate 18 Blood Pressure 120/70 Pulse Oximetry 96 100 Oxygen Delivery Room Air Nasal Cannula Oxygen Flow Rate 1 02/03/25 20:56 02/04/25 04:04 02/04/25 09:32 Temperature 36.6 C 36.7 C Pulse Rate 61 56 L 65 Respiratory Rate 18 18 Blood Pressure 149/82 H 135/76 Pulse Oximetry 97 97 Oxygen Delivery Oxygen Flow Rate Intake/Output Intake/Output: Intake & Output 02/01/25 02/02/25 02/03/25 02/04/25 23:59 23:59 23:59 23:59 Intake Total 1802.5 1460 1916 300 Output Total 1575 0 Balance 227.5 1460 1916 300 Meds/Results Medications: Active Medications Generic Name Dose Route Start Last Admin Trade Name Freq PRN Reason Stop Dose Admin Acetaminophen 650 mg 01/30/25 12:41 Acetaminophen 325 Mg Tablet PO Q4H PRN Mild Pain (1-3) or Fever Hydrocodone Bitart/Acetaminophen 1 tab 01/27/25 09:05 Hydrocodone/Acetaminophen (*Crx) 5-325 Mg Tablet PO Q4H PRN Pain Rated 4-6 Amlodipine Besylate 10 mg 01/27/25 18:00 02/03/25 18:12 Amlodipine Besylate 10 Mg Tablet BY MOUTH 10 mg QPM [facility] Administration Aspirin 325 mg 01/28/25 08:00 01/30/25 09:02 Aspirin 325 Mg Tablet BY MOUTH 325 mg DAILY@0800 [facility] Administration Clonidine HCl 1 patch 01/25/25 09:00 02/01/25 09:24 Clonidine 0.1 Mg/24 Hr Patch TRANSDERM 1 patch WEEKLY [facility] Administration Dextrose 12.5 gm 01/18/25 15:51 Dextrose 50% 25 Gm/50 Ml Syringe IV PUSH PRN PRN Hypoglycemia Protocol Doxazosin Mesylate 8 mg 01/26/25 09:00 02/04/25 09:33 Doxazosin Mesylate 4 Mg Tablet PO 8 mg DAILY [facility] Administration Enoxaparin Sodium 40 mg 01/19/25 11:45 02/04/25 09:32 Enoxaparin 40 Mg/0.4 Ml Syringe SUB-Q 40 mg DAILY [facility] Administration Glucagon 1 mg 01/18/25 15:51 Glucagon For Inj 1 Mg Vial IM PRN PRN Hypoglycemia Protocol Glucose 15 gm 01/18/25 15:51 Glucose Oral Gel 15 Gm Of Glucse In 37.5 Gm Tube PO PRN PRN Hypoglycemia Protocol Dextrose 1,000 mls @ 100 mls/hr 01/18/25 15:51 Dextrose 5% 1,000 Ml IVPB PRN PRN Hypoglycemia Protocol Dextrose 1,000 mls @ 50 mls/hr 01/31/25 12:00 Dextrose 10% IV CONT .Q20H PRN if PN is interrupted Insulin Aspart 3 - 6 units 02/01/25 17:00 02/04/25 08:11 Insulin Aspart (*Bkc) 100 Units/Ml SUB-Q Not Given TIDWM [facility] Protocol Insulin Glargine 15 units 01/25/25 09:35 01/30/25 09:03 Insulin Glargine (*Bkc) 100 Units/Ml SUB-Q 15 units QAM [facility] Administration Levothyroxine Sodium 25 mcg 01/24/25 06:30 01/30/25 04:40 Levothyroxine Sodium 25 Mcg Tablet PO 25 mcg DAILY@0630 [facility] Administration Lisinopril 40 mg 01/25/25 09:30 02/04/25 09:32 Lisinopril 20 Mg Tablet PO 40 mg QAM [facility] Administration Melatonin 3 mg 01/19/25 22:39 02/02/25 20:58 Melatonin 3 Mg Tablet PO 3 mg HS PRN Administration Insomnia Metoprolol Tartrate 25 mg 01/27/25 21:00 02/04/25 09:32 Metoprolol Tartrate 25 Mg Tablet BY MOUTH 25 mg Q12HR [facility] Administration Morphine Sulfate 2 mg 01/30/25 16:38 01/30/25 22:49 Morphine Sulfate (*Crx) 2 Mg/Ml Inj IV PUSH 2 mg Q4H PRN Administration Pain Rated 7-10 Ondansetron HCl 4 mg 01/17/25 19:07 01/26/25 22:03 Ondansetron Inj 4 Mg/2 Ml Vial IV PUSH 4 mg Q4H PRN Administration Nausea Oxycodone HCl 5 mg 01/27/25 09:05 Oxycodone Hcl (*Crx) 5 Mg Tab Ir PO Q4H PRN Pain Rated 7-10 Pantoprazole Sodium 40 mg 02/03/25 09:00 02/04/25 09:33 Pantoprazole 40 Mg Tablet PO 40 mg QAM [facility] Administration Sodium Chloride 20 ml 01/24/25 14:41 Central Line Flush IV PUSH PRN PRN after blood draws Sodium Chloride 10 ml 01/24/25 14:41 Central Line Flush IV PUSH PRN PRN with TPN bag changes Sodium Chloride 10 ml 01/24/25 22:00 02/04/25 05:04 Central Line Flush IV PUSH 10 ml Q8HR [facility] Administration Radiology Results: ITS Impressions Abdomen/Pelvis CT 01/17/25 18:07 IMPRESSION: Ascending aortic aneurysm measuring up to 5.6 cm. The descending thoracic aorta is mildly dilated to 3.1 cm. Consider nonemergent but timely outpatient CT angiography of the chest and appropriate referral for monitoring/potential intervention. Mild esophagitis/gastritis. Periesophageal lymphadenopathy. Hepatomegaly with steatosis. Mid small bowel obstruction, transition point in the left lateral abdomen. Small volume ascites. Bladder wall thickening, likely secondary to chronic outlet obstruction from prostatomegaly. Small Bowel X-Ray 01/18/25 15:02 IMPRESSION: 1. Small bowel obstruction. Chest X-Ray 01/24/25 14:53 IMPRESSION: Right PICC line with the tip overlying the right atrium. Cardiomegaly. Minimal opacification in the left lung base. Abdomen X-Ray 01/30/25 14:53 IMPRESSION: 1. Nasogastric tube tip in the stomach. 2. Dilated small bowel, likely adynamic ileus given the recent surgery. Labs Labs: Laboratory Results - last 24 hr 02/03/25 02/03/25 02/03/25 11:44 16:18 21:01 WBC RBC Hgb Hct MCV MCH MCHC RDW Plt Count MPV Sodium Potassium Chloride Carbon Dioxide Anion Gap BUN Creatinine Estim Creat Clear Calc Estimated GFR Glucose POC Capillary Glucose 137 H 139 H 152 H Calcium Magnesium 02/04/25 02/04/25 06:00 07:38 WBC 5.7 RBC 4.00 L Hgb 11.0 L Hct 35.6 L MCV 89.0 MCH 27.5 MCHC 30.9 L RDW 13.6 Plt Count 225 MPV 9.9 Sodium 138 Potassium 3.7 Chloride 100 Carbon Dioxide 29 Anion Gap 9 BUN 19 Creatinine 0.97 Estim Creat Clear Calc 68 Estimated GFR > 60 Glucose 138 H POC Capillary Glucose 136 H Calcium 8.6 Magnesium 1.8
[2025-02-04 09:56] LABS: Glucose Point of Care 165 mg/dl (65-105)
[2025-02-04 11:31] LABS: Glucose Point of Care 167 mg/dl (65-105)
[2025-02-04 14:00] VITALS: BP 127/63; PULSE 61; RESP 18; TEMP 36.4; O2SAT 97
--- NOTE | 2025-02-04 15:23 | PM.IMPN ---
Progress Note: A&P Assessment and Plan (1) SBO (small bowel obstruction): Code(s): K56.609 - Unspecified intestinal obstruction, unspecified as to partial versus complete obstruction Status: Acute Assessment and Plan: 02/15: Patient was admitted for abdominal pain, small-bowel obstruction on abdominal CT scan -Surgery was consulted, patient was taken for surgery on 01/18/2025 for high-grade small-bowel obstruction secondary to abdominal adhesions, status post exploratory laparotomy with abdominal adhesiolysis. -continue Zosyn per surgery -Patient has developed ileus. Patient has NG tube in place which is on continue suction. bowel rest, NG tube decompression, -patient had a bowel movement. ? Trial of p.o. diet -management per General surgery -continue reglan, Dulcolax suppository has been ordered per surgery -discussed with general surgeon -01/24 started TPN 01/22: Obstructive series indicated Ileus 02/14: CT scan of the abdomen and pelvis showed mid small-bowel obstruction with transition point in the left lateral abdomen, small volume ascites, hepatomegaly with steatosis, bladder wall thickening likely secondary to chronic outlet obstruction prostatomegaly. Ascending aortic aneurysm measuring 5.6 cm, descending thoracic aorta is mildly dilated to 3.1 cm mild esophagitis/gastritis, periesophageal lymphadenopathy. (2) Hypertension: Qualifiers: Hypertension type: primary hypertension Qualified Code(s): I10 - Essential (primary) hypertension Code(s): I10 - Essential (primary) hypertension Status: Acute Assessment and Plan: Patient currently off nicardipine infusion with improvement since he has abdominal aortic aneurysm. Off Cardizem infusion as patient is in sinus rhythm. Continue p.o. metoprolol , Norvasc, lisinopril Increase doxazosin to 8 mg mg Clonidine transdermal patch considering unreliable p.o. absorption (3) Diabetes mellitus with renal manifestation: Code(s): E11.29 - Type 2 diabetes mellitus with other diabetic kidney complication Status: Acute Assessment and Plan: Continue Accu-Cheks and sliding scale insulin Continue Lantus (4) BPH (benign prostatic hyperplasia): Code(s): N40.0 - Benign prostatic hyperplasia without lower urinary tract symptoms Status: Acute Assessment and Plan: Mckinney catheter in place, patient had adequate urine output (5) Atrial fibrillation with RVR: Code(s): I48.91 - Unspecified atrial fibrillation Status: Acute Assessment and Plan: Converted to sinus rhythm. Discontinue Cardizem infusion Continue p.o. metoprolol Systemic anticoagulation is on hold and resumption as per General surgery Aspirin (6) Acute respiratory failure: Code(s): J96.00 - Acute respiratory failure, unspecified whether with hypoxia or hypercapnia Status: Acute Assessment and Plan: Currently on nasal cannula. Likely atelectasis. Continue incentive spirometry. PT OT (7) Delirium: Code(s): R41.0 - Disorientation, unspecified Status: Acute Assessment and Plan: Off Precedex infusion. Improved. Much more alert and oriented. Restraints have been discontinued Sitter at bedside Continue Seroquel (8) Electrolyte abnormality: Code(s): E87.8 - Other disorders of electrolyte and fluid balance, not elsewhere classified Status: Acute Assessment and Plan: Replace low potassium and phos D5 water for hypernatremia (9) Elevated serum creatinine: Code(s): R79.89 - Other specified abnormal findings of blood chemistry Status: Acute Assessment and Plan: Patient was given Lasix yesterday 2 doses and there is elevation of creatinine is CO2 suggestive of contraction alkalosis Hold diuretics and will give some fluids today. Monitor urine output electrolytes and creatinine Plan patient was found to have High-grade small-bowel obstruction secondary to abdominal adhesions was seen by surgery service had exploratory laparotomy, abdominal adhesiolysis on 01/18, however patient became confused removed his IV, and was wondering in the hospital, patient was brought back to the room, patient was aggressive, transferred to ICU for sedation with Precedex, patient is now off Precedex, more alert and eating ice, stats does pass some gas, today patient talking stats feels better, his son is present in the room, patient is clinically improving. on 01/24 patient had been NPO for last seven day, surgeon has started patient has PICC line on TPN, last night patient had two large BM and he is now in IMU, NG tube is out and still some what confused sitter is with him, today patient is more alert, and oriented, no sitter however his family is present in the room, he does stats he does not feel like eating, he had BM and he is passing gas, will do KUB, will monitor further recommendation to follow. possible discharge tomorrow it it is okay with the surgery service. I called patient primary care Alida Dunn APRN and informed that patient has Ascending aortic aneurysm measuring up to 5.6 cm. Ms Dunn will refer patient to a vascular surgeon and will see patient in her clinic after discharge. today patient complains not feeling well, passing very little, poor appetite, patient had KUB showed partial obstruction, surgery service, reinserted NG tube, will monitor. on 01/31 patient with NG tube stated feeling better and was passing gas, seen surgery service recommended, have PT move the patient out of the bed and possible ambulate the patient. Today patient is out of bed, sitting in the chair, he had several BM, NG tube is out, was tolerating clear liquids, was seen by surgery service, advance to full liquids, and on 02/03 advanced his diet to soft low fiber and low residue, today discuss with Dr. Gonsales, patient can be discharged today, Talk to women's health care nurse practitioner will work on transferring patient to acute rehab before going home. will encourage patient to ambulate, will monitor and plan. DVT prophylaxis: Enoxaparin subcutaneous Stress ulcer prophylaxis: Protonix IV q.12 hours Nutrition: NG tube management as above, npo Code Status: Full code Switched to nasal cannula, incentive spirometry PT OT Subjective Date/time seen: 02/04/25 15:23 Interval history: Patient admitted for treatment of SBO and plan for exploratory laparotomy. Patient still hypertensive will increase IV metoprolol to 5 mg scheduled and schedule his IV hydralazine. Patient refusing NG tube but denies ABD pain, distention slightly improved. Patient reported flatulence but still no BM. H&P-Narrative He presents with a few hours' history of central abdominal pain; it is localized; rated 10 in intensity, aggravated by meals/drinks, alleviated by fasting; associated with bilious but non-bloody emesis, malaise, anorexia, chills and rigors. His last BM was days ago; he denies chest pain, dizziness, LOC, flank pain, dysuria, hematuria or HILL. patient was found to have High-grade small-bowel obstruction secondary to abdominal adhesions was seen by surgery service had exploratory laparotomy, abdominal adhesiolysis on 01/18, however patient became confused removed his IV, and was wondering in the hospital, patient was brought back to the room, patient was aggressive, transferred to ICU for sedation with Precedex, patient is now off Precedex, more alert and eating ice, stats does pass some gas, today patient talking stats feels better, his son is present in the room, patient is clinically improving. on 01/24 patient had been NPO for last seven day, surgeon has started patient has PICC line on TPN, last night patient had two large BM and he is now in IMU, NG tube is out and still some what confused sitter is with him, today patient is more alert, and oriented, no sitter however his family is present in the room, he does stats he does not feel like eating, he had BM and he is passing gas, will do KUB, will monitor further recommendation to follow. possible discharge tomorrow it it is okay with the surgery service. I called patient primary care Alida Dunn APRN and informed that patient has Ascending aortic aneurysm measuring up to 5.6 cm. Ms Dunn will refer patient to a vascular surgeon and will see patient in her clinic after discharge. today patient complains not feeling well, passing very little, poor appetite, patient had KUB showed partial obstruction, surgery service, reinserted NG tube, will monitor. on 01/31 patient with NG tube stated feeling better and was passing gas, seen surgery service recommended, have PT move the patient out of the bed and possible ambulate the patient. Today patient is out of bed, sitting in the chair, he had several BM, NG tube is out, was tolerating clear liquids, was seen by surgery service, advance to full liquids, and on 02/03 advanced his diet to soft low fiber and low residue, today discuss with Dr. Gonsales, patient can be discharged today, Talk to women's health care nurse practitioner will work on transferring patient to acute rehab before going home. will encourage patient to ambulate, will monitor and plan. Review of Systems Review of Systems: All systems reviewed & are unremarkable except as noted in HPI and below (HPI) Exam Narrative: Patient is comfortable, NAD HEENT: clear LUNGS:CTA ABD: distended Lower extremities: no edema SKIN: nonjaundiced Neuro: Confused Objective Data Vital Signs Vital Signs: Vital Signs - 24 hr 02/03/25 15:26 02/03/25 20:00 02/03/25 20:56 Temperature 36.6 C Pulse Rate 61 Respiratory Rate 18 Blood Pressure 149/82 H Pulse Oximetry 100 97 Oxygen Delivery Room Air Nasal Cannula Oxygen Flow Rate 1 02/04/25 04:04 02/04/25 09:30 02/04/25 09:32 Temperature 36.7 C Pulse Rate 56 L 65 Respiratory Rate 18 Blood Pressure 135/76 125/76 Pulse Oximetry 97 Oxygen Delivery Oxygen Flow Rate 02/04/25 09:32 02/04/25 14:00 Temperature 36.4 C Pulse Rate 61 Respiratory Rate 18 Blood Pressure 127/63 Pulse Oximetry 97 Oxygen Delivery Room Air Oxygen Flow Rate Intake/Output Intake/Output: Intake & Output 02/01/25 02/02/25 02/03/25 02/04/25 23:59 23:59 23:59 23:59 Intake Total 1802.5 1460 1916 660 Output Total 1575 1 Balance 227.5 1460 1916 659 Meds/Results Medications: Active Medications Generic Name Dose Route Start Last Admin Trade Name Freq PRN Reason Stop Dose Admin Acetaminophen 650 mg 01/30/25 12:41 Acetaminophen 325 Mg Tablet PO Q4H PRN Mild Pain (1-3) or Fever Hydrocodone Bitart/Acetaminophen 1 tab 01/27/25 09:05 Hydrocodone/Acetaminophen (*Crx) 5-325 Mg Tablet PO Q4H PRN Pain Rated 4-6 Amlodipine Besylate 10 mg 01/27/25 18:00 02/03/25 18:12 Amlodipine Besylate 10 Mg Tablet BY MOUTH 10 mg QPM [facility] Administration Aspirin 325 mg 01/28/25 08:00 01/30/25 09:02 Aspirin 325 Mg Tablet BY MOUTH 325 mg DAILY@0800 [facility] Administration Clonidine HCl 1 patch 01/25/25 09:00 02/01/25 09:24 Clonidine 0.1 Mg/24 Hr Patch TRANSDERM 1 patch WEEKLY [facility] Administration Dextrose 12.5 gm 01/18/25 15:51 Dextrose 50% 25 Gm/50 Ml Syringe IV PUSH PRN PRN Hypoglycemia Protocol Doxazosin Mesylate 8 mg 01/26/25 09:00 02/04/25 09:33 Doxazosin Mesylate 4 Mg Tablet PO 8 mg DAILY [facility] Administration Enoxaparin Sodium 40 mg 01/19/25 11:45 02/04/25 09:32 Enoxaparin 40 Mg/0.4 Ml Syringe SUB-Q 40 mg DAILY [facility] Administration Glucagon 1 mg 01/18/25 15:51 Glucagon For Inj 1 Mg Vial IM PRN PRN Hypoglycemia Protocol Glucose 15 gm 01/18/25 15:51 Glucose Oral Gel 15 Gm Of Glucse In 37.5 Gm Tube PO PRN PRN Hypoglycemia Protocol Dextrose 1,000 mls @ 100 mls/hr 01/18/25 15:51 Dextrose 5% 1,000 Ml IVPB PRN PRN Hypoglycemia Protocol Dextrose 1,000 mls @ 50 mls/hr 01/31/25 12:00 Dextrose 10% IV CONT .Q20H PRN if PN is interrupted Insulin Aspart 3 - 6 units 02/01/25 17:00 02/04/25 12:04 Insulin Aspart (*Bkc) 100 Units/Ml SUB-Q Not Given TIDWM [facility] Protocol Insulin Glargine 15 units 01/25/25 09:35 01/30/25 09:03 Insulin Glargine (*Bkc) 100 Units/Ml SUB-Q 15 units QAM [facility] Administration Levothyroxine Sodium 25 mcg 01/24/25 06:30 01/30/25 04:40 Levothyroxine Sodium 25 Mcg Tablet PO 25 mcg DAILY@0630 [facility] Administration Lisinopril 40 mg 01/25/25 09:30 02/04/25 09:32 Lisinopril 20 Mg Tablet PO 40 mg QAM [facility] Administration Melatonin 3 mg 01/19/25 22:39 02/02/25 20:58 Melatonin 3 Mg Tablet PO 3 mg HS PRN Administration Insomnia Metoprolol Tartrate 25 mg 01/27/25 21:00 02/04/25 09:32 Metoprolol Tartrate 25 Mg Tablet BY MOUTH 25 mg Q12HR [facility] Administration Morphine Sulfate 2 mg 01/30/25 16:38 01/30/25 22:49 Morphine Sulfate (*Crx) 2 Mg/Ml Inj IV PUSH 2 mg Q4H PRN Administration Pain Rated 7-10 Ondansetron HCl 4 mg 01/17/25 19:07 01/26/25 22:03 Ondansetron Inj 4 Mg/2 Ml Vial IV PUSH 4 mg Q4H PRN Administration Nausea Oxycodone HCl 5 mg 01/27/25 09:05 Oxycodone Hcl (*Crx) 5 Mg Tab Ir PO Q4H PRN Pain Rated 7-10 Pantoprazole Sodium 40 mg 02/03/25 09:00 02/04/25 09:33 Pantoprazole 40 Mg Tablet PO 40 mg QAM [facility] Administration Sodium Chloride 20 ml 01/24/25 14:41 Central Line Flush IV PUSH PRN PRN after blood draws Sodium Chloride 10 ml 01/24/25 14:41 Central Line Flush IV PUSH PRN PRN with TPN bag changes Sodium Chloride 10 ml 01/24/25 22:00 02/04/25 14:59 Central Line Flush IV PUSH 10 ml Q8HR [facility] Administration Radiology Results: ITS Impressions Abdomen/Pelvis CT 01/17/25 18:07 IMPRESSION: Ascending aortic aneurysm measuring up to 5.6 cm. The descending thoracic aorta is mildly dilated to 3.1 cm. Consider nonemergent but timely outpatient CT angiography of the chest and appropriate referral for monitoring/potential intervention. Mild esophagitis/gastritis. Periesophageal lymphadenopathy. Hepatomegaly with steatosis. Mid small bowel obstruction, transition point in the left lateral abdomen. Small volume ascites. Bladder wall thickening, likely secondary to chronic outlet obstruction from prostatomegaly. Small Bowel X-Ray 01/18/25 15:02 IMPRESSION: 1. Small bowel obstruction. Chest X-Ray 01/24/25 14:53 IMPRESSION: Right PICC line with the tip overlying the right atrium. Cardiomegaly. Minimal opacification in the left lung base. Abdomen X-Ray 01/30/25 14:53 IMPRESSION: 1. Nasogastric tube tip in the stomach. 2. Dilated small bowel, likely adynamic ileus given the recent surgery. Labs Labs: Laboratory Results - last 24 hr 02/03/25 02/03/25 02/04/25 16:18 21:01 06:00 WBC 5.7 RBC 4.00 L Hgb 11.0 L Hct 35.6 L MCV 89.0 MCH 27.5 MCHC 30.9 L RDW 13.6 Plt Count 225 MPV 9.9 Sodium 138 Potassium 3.7 Chloride 100 Carbon Dioxide 29 Anion Gap 9 BUN 19 Creatinine 0.97 Estim Creat Clear Calc 68 Estimated GFR > 60 Glucose 138 H POC Capillary Glucose 139 H 152 H Calcium 8.6 Magnesium 1.8 02/04/25 02/04/25 02/04/25 07:38 09:54 11:27 WBC RBC Hgb Hct MCV MCH MCHC RDW Plt Count MPV Sodium Potassium Chloride Carbon Dioxide Anion Gap BUN Creatinine Estim Creat Clear Calc Estimated GFR Glucose POC Capillary Glucose 136 H 165 H 167 H Calcium Magnesium Quality VTE Prophylaxis VTE prophylaxis: mechanical ordered and pharmacologic ordered
[2025-02-04 16:50] LABS: Glucose Point of Care 140 mg/dl (65-105)
[2025-02-04] MEDS: amLODIPine BESYLATE 10 MG TABLET BY MOUTH (17:16)
[2025-02-04] MEDS: MELATONIN 3 MG TABLET PO (20:25)
[2025-02-04 20:38] LABS: Glucose Point of Care 137 mg/dl (65-105)
[2025-02-04 21:09] VITALS: BP 144/76; PULSE 59; RESP 16; TEMP 36.7
[2025-02-05 05:55] VITALS: BP 130/75; PULSE 58; RESP 16; TEMP 36.6; O2SAT 96
[2025-02-05] MEDS: CENTRAL LINE FLUSH 10 ML IV PUSH (06:00)
[2025-02-05 07:51] LABS: Hemoglobin 11.6 g/dL (14.0-18.0); Mean Corpuscular HGB Conc 31.4 g/dl (32-36); Mean Corpuscular Hemoglobin 27.9 pg (26-34); Mean Corpuscular Volume 88.9 fl (80-100); Mean Platelet Volume 10.6 fl (7.4-10.4); Platelet Count Result 230 k/mm3 (150-375); Red Blood Count 4.16 M/mm3 (4.6-6.20); Red Cell Distribution Width 13.8 % (11.5-14.5); White Blood Count 6.5 K/mm3 (4.5-10.0)
[2025-02-05 08:07] LABS: Anion Gap 7 mmol/L (4-12); Blood Urea Nitrogen 17 mg/dL (9-20); Calcium 8.8 mg/dL (8.4-10.2); Carbon Dioxide 30 mmol/L (22-30); Chloride 101 mmol/L (98-107); Estimated CRCL calculation 66 ml/min; Estimated Glomerular Filt Rate > 60; Glucose 145 mg/dL (65-110); Magnesium 1.7 mg/dL (1.6-2.3); Potassium 3.8 mmol/L (3.4-5.0); Sodium 138 mmol/L (137-145)
[2025-02-05 08:15] VITALS: BP 144/74
[2025-02-05 08:18] VITALS: PULSE 58
[2025-02-05] MEDS: ENOXAPARIN 40 MG/0.4 ML SYRINGE SUB-Q (08:18)
[2025-02-05] MEDS: PANTOPRAZOLE 40 MG TABLET PO (08:18)
[2025-02-05] MEDS: DOXAZOSIN MESYLATE 4 MG TABLET 8 MG PO (08:18)
[2025-02-05] MEDS: METOPROLOL TARTRATE 25 MG TABLET BY MOUTH ×2 (08:18→20:12)
[2025-02-05] MEDS: lisinopriL 20 MG TABLET 40 MG PO (08:18)
[2025-02-05 08:41] LABS: Glucose Point of Care 126 mg/dl (65-105)
--- NOTE | 2025-02-05 11:20 | PM.PNGS ---
Progress Note: A&P Assessment and Plan (1) SBO (small bowel obstruction): Code(s): K56.609 - Unspecified intestinal obstruction, unspecified as to partial versus complete obstruction Status: Acute Assessment and Plan: Resolved after exploratory laparotomy and adhesiolysis. Postoperative ileus resolved. He can discharge the hospital at the discretion of the hospitalist. CC is working on SNF placement. Patient will need to follow-up with Dr. Gonsales in the office in 2 weeks. Can call the office for an appointment. Wound care and activity instructions are as noted in the discharge instructions. (2) Ascending aortic aneurysm: Qualifiers: Presence of rupture: without rupture Qualified Code(s): I71.21 - Aneurysm of the ascending aorta, without rupture Code(s): I71.21 - Aneurysm of the ascending aorta, without rupture Status: Chronic Assessment and Plan: Asymptomatic at this time. The aneurysm measures 5.6cm on CT scan. At the appropriate time as an outpatient he should be referred to see a cardiothoracic surgeon for evaluation. For an ascending aortic aneurysm the cardiothoracic surgeon is the more appropriate referral than vascular surgery. (3) Anticoagulant long-term use: Code(s): Z79.01 - stable hand (current) use of anticoagulants Status: Chronic Assessment and Plan: Patient may resume his systemic oral anticoagulation medications from a surgery standpoint. Plan I have discussed the patient's case and plan of care with Dr. Gonsales. Subjective Subjective Date/Time Seen: 02/05/25 11:20 Patient reports: no new complaints, tolerating a regular diet, flatus, bowel movement and afebrile Interval history: No abdominal pain. Bowels are moving. No new complaints. Waiting for SNF placement. Exam Const: General: comfortable and no acute distress GI: Other: Abdomen is soft and obese. Nondistended. Midline incision is healing well without redness or drainage. Steri-Strips are in place. Virgie are out. Objective Data Vital Signs Vital Signs: Vital Signs - 24 hr 02/04/25 14:00 02/04/25 21:09 02/05/25 05:55 Temperature 97.6 F 98.1 F 98 F Pulse Rate 61 59 L 58 L Respiratory Rate 18 16 16 Blood Pressure 127/63 144/76 H 130/75 Pulse Oximetry 97 96 Oxygen Delivery 02/05/25 08:15 02/05/25 08:18 02/05/25 08:26 Temperature Pulse Rate 58 L Respiratory Rate Blood Pressure 144/74 H Pulse Oximetry Oxygen Delivery Room Air Intake/Output Intake/Output: Intake & Output 02/02/25 02/03/25 02/04/25 02/05/25 23:59 23:59 23:59 23:59 Intake Total 1460 1916 840 480 Output Total 3 1 Balance 1460 1916 837 479 Meds/Results Medications: Active Medications Generic Name Dose Route Start Last Admin Trade Name Freq PRN Reason Stop Dose Admin Acetaminophen 650 mg 01/30/25 12:41 Acetaminophen 325 Mg Tablet PO Q4H PRN Mild Pain (1-3) or Fever Hydrocodone Bitart/Acetaminophen 1 tab 01/27/25 09:05 Hydrocodone/Acetaminophen (*Crx) 5-325 Mg Tablet PO Q4H PRN Pain Rated 4-6 Amlodipine Besylate 10 mg 01/27/25 18:00 02/04/25 17:16 Amlodipine Besylate 10 Mg Tablet BY MOUTH 10 mg QPM [facility] Administration Aspirin 325 mg 01/28/25 08:00 01/30/25 09:02 Aspirin 325 Mg Tablet BY MOUTH 325 mg DAILY@0800 [facility] Administration Clonidine HCl 1 patch 01/25/25 09:00 02/01/25 09:24 Clonidine 0.1 Mg/24 Hr Patch TRANSDERM 1 patch WEEKLY [facility] Administration Dextrose 12.5 gm 01/18/25 15:51 Dextrose 50% 25 Gm/50 Ml Syringe IV PUSH PRN PRN Hypoglycemia Protocol Doxazosin Mesylate 8 mg 01/26/25 09:00 02/05/25 08:18 Doxazosin Mesylate 4 Mg Tablet PO 8 mg DAILY [facility] Administration Enoxaparin Sodium 40 mg 01/19/25 11:45 02/05/25 08:18 Enoxaparin 40 Mg/0.4 Ml Syringe SUB-Q 40 mg DAILY [facility] Administration Glucagon 1 mg 01/18/25 15:51 Glucagon For Inj 1 Mg Vial IM PRN PRN Hypoglycemia Protocol Glucose 15 gm 01/18/25 15:51 Glucose Oral Gel 15 Gm Of Glucse In 37.5 Gm Tube PO PRN PRN Hypoglycemia Protocol Dextrose 1,000 mls @ 100 mls/hr 01/18/25 15:51 Dextrose 5% 1,000 Ml IVPB PRN PRN Hypoglycemia Protocol Dextrose 1,000 mls @ 50 mls/hr 01/31/25 12:00 Dextrose 10% IV CONT .Q20H PRN if PN is interrupted Insulin Aspart 3 - 6 units 02/01/25 17:00 02/05/25 08:12 Insulin Aspart (*Bkc) 100 Units/Ml SUB-Q Not Given TIDWM [facility] Protocol Insulin Glargine 15 units 01/25/25 09:35 01/30/25 09:03 Insulin Glargine (*Bkc) 100 Units/Ml SUB-Q 15 units QAM [facility] [place] Administration Levothyroxine Sodium 25 mcg 01/24/25 06:30 01/30/25 04:40 Levothyroxine Sodium 25 Mcg Tablet PO 25 mcg DAILY@0630 [facility] [place] Administration Lisinopril 40 mg 01/25/25 09:30 02/05/25 08:18 Lisinopril 20 Mg Tablet PO 40 mg QAM [facility] [place] Administration Melatonin 3 mg 01/19/25 22:39 02/04/25 20:25 Melatonin 3 Mg Tablet PO 3 mg HS PRN Administration Insomnia Metoprolol Tartrate 25 mg 01/27/25 21:00 02/05/25 08:18 Metoprolol Tartrate 25 Mg Tablet BY MOUTH 25 mg Q12HR [facility] [place] Administration Morphine Sulfate 2 mg 01/30/25 16:38 01/30/25 22:49 Morphine Sulfate (*Crx) 2 Mg/Ml Inj IV PUSH 2 mg Q4H PRN Administration Pain Rated 7-10 Ondansetron HCl 4 mg 01/17/25 19:07 01/26/25 22:03 Ondansetron Inj 4 Mg/2 Ml Vial IV PUSH 4 mg Q4H PRN Administration Nausea Oxycodone HCl 5 mg 01/27/25 09:05 Oxycodone Hcl (*Crx) 5 Mg Tab Ir PO Q4H PRN Pain Rated 7-10 Pantoprazole Sodium 40 mg 02/03/25 09:00 02/05/25 08:18 Pantoprazole 40 Mg Tablet PO 40 mg QAM [facility] [place] Administration Sodium Chloride 20 ml 01/24/25 14:41 Central Line Flush IV PUSH PRN PRN after blood draws Sodium Chloride 10 ml 01/24/25 14:41 Central Line Flush IV PUSH PRN PRN with TPN bag changes Sodium Chloride 10 ml 01/24/25 22:00 02/05/25 06:00 Central Line Flush IV PUSH 10 ml Q8HR [facility] Administration Radiology Results: ITS Impressions Abdomen/Pelvis CT 01/17/25 18:07 IMPRESSION: Ascending aortic aneurysm measuring up to 5.6 cm. The descending thoracic aorta is mildly dilated to 3.1 cm. Consider nonemergent but timely outpatient CT angiography of the chest and appropriate referral for monitoring/potential intervention. Mild esophagitis/gastritis. Periesophageal lymphadenopathy. Hepatomegaly with steatosis. Mid small bowel obstruction, transition point in the left lateral abdomen. Small volume ascites. Bladder wall thickening, likely secondary to chronic outlet obstruction from prostatomegaly. Small Bowel X-Ray 01/18/25 15:02 IMPRESSION: 1. Small bowel obstruction. Chest X-Ray 01/24/25 14:53 IMPRESSION: Right PICC line with the tip overlying the right atrium. Cardiomegaly. Minimal opacification in the left lung base. Abdomen X-Ray 01/30/25 14:53 IMPRESSION: 1. Nasogastric tube tip in the stomach. 2. Dilated small bowel, likely adynamic ileus given the recent surgery. Labs Labs: Laboratory Results - last 24 hr 02/04/25 02/04/25 02/04/25 11:27 16:46 20:05 WBC RBC Hgb Hct MCV MCH MCHC RDW Plt Count MPV Sodium Potassium Chloride Carbon Dioxide Anion Gap BUN Creatinine Estim Creat Clear Calc Estimated GFR Glucose POC Capillary Glucose 167 H 140 H 137 H Calcium Magnesium 02/05/25 02/05/25 07:02 08:10 WBC 6.5 RBC 4.16 L Hgb 11.6 L Hct 37.0 L MCV 88.9 MCH 27.9 MCHC 31.4 L RDW 13.8 Plt Count 230 MPV 10.6 H Sodium 138 Potassium 3.8 Chloride 101 Carbon Dioxide 30 Anion Gap 7 BUN 17 Creatinine 1.00 Estim Creat Clear Calc 66 Estimated GFR > 60 Glucose 145 H POC Capillary Glucose 126 H Calcium 8.8 Magnesium 1.7
--- NOTE | 2025-02-05 11:29 | PCNFU ---
Nutrition Follow-Up Complete: Inadequate oral intake related to ileus as evidenced by NPO/CL day 6 - RESOLVED Meet estimated nutrition needs - Meeting goal with PO intake Goal: Pt current nutrition is Soft and low fiber diet. 80-100% intakes Nutrition recommendation: No new nutrition recommendations Last recorded weight is 125.8 kg. Bowel Motility: +1 BM 02/05/25 Labs Reviewed: Hgb 11.6, Hct 37, Na 126, Glu 145 Meds Noted: Protonix, mylanta, novolog, lantus Skin: No skin issues Additional Notes: Advanced to soft and low fiber and eating okay. Discharge to SNF soon Monitoring orders, diet advancement, weights, labs, plan of care Follow up every 3 days. Daily in rounds
[2025-02-05 11:56] LABS: Glucose Point of Care 149 mg/dl (65-105)
--- NOTE | 2025-02-05 14:19 | PC.NURSE ---
ALTERATIONS TAILOR was taking patient's vitals and noticed PICC line laying on bedside table. ALTERATIONS TAILOR updated RN on findings. RN went to patient room and asked patient, What happened? Patient responded, It just fell out. It was dangling and fell out. RN assessed the site and hemostasis was established. RN applied a gauze to site and educated patient on picc line removal.
[2025-02-05 14:56] VITALS: BP 139/73; PULSE 59; RESP 18; TEMP 36.6; O2SAT 98
--- NOTE | 2025-02-05 16:15 | P.PNIM_ITS ---
Progress Note: A&P Assessment and Plan (1) SBO (small bowel obstruction): Code(s): K56.609 - Unspecified intestinal obstruction, unspecified as to partial versus complete obstruction Status: Acute Assessment and Plan: 02/15: Patient was admitted for abdominal pain, small-bowel obstruction on abdominal CT scan -Surgery was consulted, patient was taken for surgery on 01/18/2025 for high- grade small-bowel obstruction secondary to abdominal adhesions, status post exploratory laparotomy with abdominal adhesiolysis. -continue Zosyn per surgery -Patient has developed ileus. Patient has NG tube in place which is on continue suction. bowel rest, NG tube decompression, -patient had a bowel movement. ? Trial of p.o. diet -management per General surgery -continue reglan, Dulcolax suppository has been ordered per surgery -discussed with general surgeon -01/24 started TPN 01/22: Obstructive series indicated Ileus 02/14: CT scan of the abdomen and pelvis showed mid small-bowel obstruction with transition point in the left lateral abdomen, small volume ascites, hepatomegaly with steatosis, bladder wall thickening likely secondary to chronic outlet obstruction prostatomegaly. Ascending aortic aneurysm measuring 5.6 cm, descending thoracic aorta is mildly dilated to 3.1 cm mild esophagitis/gastritis, periesophageal lymphadenopathy. (2) Hypertension: Qualifiers: Hypertension type: primary hypertension Qualified Code(s): I10 - Essential (primary) hypertension Code(s): I10 - Essential (primary) hypertension Status: Acute Assessment and Plan: Patient currently off nicardipine infusion with improvement since he has abdominal aortic aneurysm. Off Cardizem infusion as patient is in sinus rhythm. Continue p.o. metoprolol , Norvasc, lisinopril Increase doxazosin to 8 mg mg Clonidine transdermal patch considering unreliable p.o. absorption (3) Diabetes mellitus with renal manifestation: Code(s): E11.29 - Type 2 diabetes mellitus with other diabetic kidney complication Status: Acute Assessment and Plan: Continue Accu-Cheks and sliding scale insulin Continue Lantus (4) BPH (benign prostatic hyperplasia): Code(s): N40.0 - Benign prostatic hyperplasia without lower urinary tract symptoms Status: Acute Assessment and Plan: Mckinney catheter in place, patient had adequate urine output (5) Atrial fibrillation with RVR: Code(s): I48.91 - Unspecified atrial fibrillation Status: Acute Assessment and Plan: Converted to sinus rhythm. Discontinue Cardizem infusion Continue p.o. metoprolol Systemic anticoagulation is on hold and resumption as per General surgery Aspirin (6) Acute respiratory failure: Code(s): J96.00 - Acute respiratory failure, unspecified whether with hypoxia or hypercapnia Status: Acute Assessment and Plan: Currently on nasal cannula. Likely atelectasis. Continue incentive spirometry. PT OT (7) Delirium: Code(s): R41.0 - Disorientation, unspecified Status: Acute Assessment and Plan: Off Precedex infusion. Improved. Much more alert and oriented. Restraints have been discontinued Sitter at bedside Continue Seroquel (8) Electrolyte abnormality: Code(s): E87.8 - Other disorders of electrolyte and fluid balance, not elsewhere classified Status: Acute Assessment and Plan: Replace low potassium and phos D5 water for hypernatremia (9) Elevated serum creatinine: Code(s): R79.89 - Other specified abnormal findings of blood chemistry Status: Acute Assessment and Plan: Patient was given Lasix yesterday 2 doses and there is elevation of creatinine is CO2 suggestive of contraction alkalosis Hold diuretics and will give some fluids today. Monitor urine output electrolytes and creatinine Plan patient was found to have High-grade small-bowel obstruction secondary to abdominal adhesions was seen by surgery service had exploratory laparotomy, abdominal adhesiolysis on 01/18, however patient became confused removed his IV, and was wondering in the hospital, patient was brought back to the room, patient was aggressive, transferred to ICU for sedation with Precedex, patient is now off Precedex, more alert and eating ice, stats does pass some gas, today patient talking stats feels better, his son is present in the room, patient is clinically improving. on 01/24 patient had been NPO for last seven day, surgeon has started patient has PICC line on TPN, last night patient had two large BM and he is now in IMU, NG tube is out and still some what confused sitter is with him, today patient is more alert, and oriented, no sitter however his family is present in the room, he does stats he does not feel like eating, he had BM and he is passing gas, will do KUB, will monitor further recommendation to follow. possible discharge tomorrow it it is okay with the surgery service. I called patient primary care Alida Dunn APRN and informed that patient has Ascending aortic aneurysm measuring up to 5.6 cm. Ms Dunn will refer patient to a vascular surgeon and will see patient in her clinic after discharge. today patient complains not feeling well, passing very little, poor appetite, patient had KUB showed partial obstruction, surgery service, reinserted NG tube, will monitor. on 01/31 patient with NG tube stated feeling better and was passing gas, seen surgery service recommended, have PT move the patient out of the bed and possible ambulate the patient. Today patient is out of bed, sitting in the chair, he had several BM, NG tube is out, was tolerating clear liquids, was seen by surgery service, advance to full liquids, and on 02/03 advanced his diet to soft low fiber and low residue, on 02/[address] Gonsales, patient can be discharged, Talk to home child care provider will work on transferring patient to acute rehab before going home. will encourage patient to ambulate, will monitor and plan. today patient is been accepted by the rehab and his insurance has approved it, will discharged patient today. DVT prophylaxis: Enoxaparin subcutaneous Stress ulcer prophylaxis: Protonix IV q.12 hours Nutrition: NG tube management as above, npo Code Status: Full code Switched to nasal cannula, incentive spirometry PT OT Subjective Date/time seen: 02/05/25 16:15 Interval history: Patient admitted for treatment of SBO and plan for exploratory laparotomy. Patient still hypertensive will increase IV metoprolol to 5 mg scheduled and schedule his IV hydralazine. Patient refusing NG tube but denies ABD pain, distention slightly improved. Patient reported flatulence but still no BM. H&P-Narrative He presents with a few hours' history of central abdominal pain; it is localized; rated 10 in intensity, aggravated by meals/drinks, alleviated by fasting; associated with bilious but non-bloody emesis, malaise, anorexia, chills and rigors. His last BM was days ago; he denies chest pain, dizziness, LOC, flank pain, dysuria, hematuria or HILL. patient was found to have High-grade small-bowel obstruction secondary to abdominal adhesions was seen by surgery service had exploratory laparotomy, abdominal adhesiolysis on 01/18, however patient became confused removed his IV, and was wondering in the hospital, patient was brought back to the room, patient was aggressive, transferred to ICU for sedation with Precedex, patient is now off Precedex, more alert and eating ice, stats does pass some gas, today patient talking stats feels better, his son is present in the room, patient is clinically improving. on 01/24 patient had been NPO for last seven day, surgeon has started patient has PICC line on TPN, last night patient had two large BM and he is now in IMU, NG tube is out and still some what confused sitter is with him, today patient is more alert, and oriented, no sitter however his family is present in the room, he does stats he does not feel like eating, he had BM and he is passing gas, will do KUB, will monitor further recommendation to follow. possible discharge tomorrow it it is okay with the surgery service. I called patient primary care Alida Dunn APRN and informed that patient has Ascending aortic aneurysm measuring up to 5.6 cm. Ms Dunn will refer patient to a vascular surgeon and will see patient in her clinic after discharge. today patient complains not feeling well, passing very little, poor appetite, patient had KUB showed partial obstruction, surgery service, reinserted NG tube, will monitor. on 01/31 patient with NG tube stated feeling better and was passing gas, seen surgery service recommended, have PT move the patient out of the bed and possible ambulate the patient. Today patient is out of bed, sitting in the chair, he had several BM, NG tube is out, was tolerating clear liquids, was seen by surgery service, advance to full liquids, and on 02/03 advanced his diet to soft low fiber and low residue, on 02/[address] Gonsales, patient can be discharged, Talk to home child care provider will work on transferring patient to acute rehab before going home. will encourage patient to ambulate, will monitor and plan. today patient is been accepted by the rehab and his insurance has approved it, will discharged patient today. Review of Systems Review of Systems: All systems reviewed & are unremarkable except as noted in HPI and below (HPI) Exam Narrative: Patient is comfortable, NAD HEENT: clear LUNGS:CTA ABD: distended Lower extremities: no edema SKIN: nonjaundiced Neuro: Confused Objective Data Vital Signs Vital Signs: Vital Signs - 24 hr 02/04/25 21:09 02/05/25 05:55 02/05/25 08:15 Temperature 36.7 C 36.6 C Pulse Rate 59 L 58 L Respiratory Rate 16 16 Blood Pressure 144/76 H 130/75 144/74 H Pulse Oximetry 96 Oxygen Delivery 02/05/25 08:18 02/05/25 08:26 02/05/25 14:56 Temperature 36.6 C Pulse Rate 58 L 59 L Respiratory Rate 18 Blood Pressure 139/73 Pulse Oximetry 98 Oxygen Delivery Room Air Intake/Output Intake/Output: Intake & Output 02/02/25 02/03/25 02/04/25 02/05/25 23:59 23:59 23:59 23:59 Intake Total 1460 1916 840 960 Output Total 3 1 Balance 1460 1916 837 959 Meds/Results Medications: Active Medications Generic Name Dose Route Start Last Admin Trade Name Freq PRN Reason Stop Dose Admin Acetaminophen 650 mg 01/30/25 12:41 Acetaminophen 325 Mg Tablet PO Q4H PRN Mild Pain (1-3) or Fever Hydrocodone Bitart/Acetaminophen 1 tab 01/27/25 09:05 Hydrocodone/Acetaminophen (*Crx) 5-325 Mg Tablet PO Q4H PRN Pain Rated 4-6 Amlodipine Besylate 10 mg 01/27/25 18:00 02/04/25 17:16 Amlodipine Besylate 10 Mg Tablet BY MOUTH 10 mg QPM AUGUSTINE Administration Aspirin 325 mg 01/28/25 08:00 01/30/25 09:02 Aspirin 325 Mg Tablet BY MOUTH 325 mg DAILY@0800 AUGUSTINE Administration Clonidine HCl 1 patch 01/25/25 09:00 02/01/25 09:24 Clonidine 0.1 Mg/24 Hr Patch TRANSDERM 1 patch WEEKLY AUGUSTINE Administration Dextrose 12.5 gm 01/18/25 15:51 Dextrose 50% 25 Gm/50 Ml Syringe IV PUSH PRN PRN Hypoglycemia Protocol Doxazosin Mesylate 8 mg 01/26/25 09:00 02/05/25 08:18 Doxazosin Mesylate 4 Mg Tablet PO 8 mg DAILY AUGUSTINE Administration Enoxaparin Sodium 40 mg 01/19/25 11:45 02/05/25 08:18 Enoxaparin 40 Mg/0.4 Ml Syringe SUB-Q 40 mg DAILY AUGUSTINE Administration Glucagon 1 mg 01/18/25 15:51 Glucagon For Inj 1 Mg Vial IM PRN PRN Hypoglycemia Protocol Glucose 15 gm 01/18/25 15:51 Glucose Oral Gel 15 Gm Of Glucse In 37.5 Gm Tube PO PRN PRN Hypoglycemia Protocol Dextrose 1,000 mls @ 100 mls/hr 01/18/25 15:51 Dextrose 5% 1,000 Ml IVPB PRN PRN Hypoglycemia Protocol Dextrose 1,000 mls @ 50 mls/hr 01/31/25 12:00 Dextrose 10% IV CONT .Q20H PRN if PN is interrupted Insulin Aspart 3 - 6 units 02/01/25 17:00 02/05/25 12:10 Insulin Aspart (*Bkc) 100 Units/Ml SUB-Q Not Given TIDWM AUGUSTINE Protocol Insulin Glargine 15 units 01/25/25 09:35 01/30/25 09:03 Insulin Glargine (*Bkc) 100 Units/Ml SUB-Q 15 units QAM AUGUSTINE Administration Levothyroxine Sodium 25 mcg 01/24/25 06:30 01/30/25 04:40 Levothyroxine Sodium 25 Mcg Tablet PO 25 mcg DAILY@0630 AUGUSTINE Administration Lisinopril 40 mg 01/25/25 09:30 02/05/25 08:18 Lisinopril 20 Mg Tablet PO 40 mg QAM AUGUSTINE Administration Melatonin 3 mg 01/19/25 22:39 02/04/25 20:25 Melatonin 3 Mg Tablet PO 3 mg HS PRN Administration Insomnia Metoprolol Tartrate 25 mg 01/27/25 21:00 02/05/25 08:18 Metoprolol Tartrate 25 Mg Tablet BY MOUTH 25 mg Q12HR AUGUSTINE Administration Morphine Sulfate 2 mg 01/30/25 16:38 01/30/25 22:49 Morphine Sulfate (*Crx) 2 Mg/Ml Inj IV PUSH 2 mg Q4H PRN Administration Pain Rated 7-10 Ondansetron HCl 4 mg 01/17/25 19:07 01/26/25 22:03 Ondansetron Inj 4 Mg/2 Ml Vial IV PUSH 4 mg Q4H PRN Administration Nausea Oxycodone HCl 5 mg 01/27/25 09:05 Oxycodone Hcl (*Crx) 5 Mg Tab Ir PO Q4H PRN Pain Rated 7-10 Pantoprazole Sodium 40 mg 02/03/25 09:00 02/05/25 08:18 Pantoprazole 40 Mg Tablet PO 40 mg QAM AUGUSTINE Administration Sodium Chloride 20 ml 01/24/25 14:41 Central Line Flush IV PUSH PRN PRN after blood draws Sodium Chloride 10 ml 01/24/25 14:41 Central Line Flush IV PUSH PRN PRN with TPN bag changes Radiology Results: ITS Impressions Abdomen/Pelvis CT 01/17/25 18:07 IMPRESSION: Ascending aortic aneurysm measuring up to 5.6 cm. The descending thoracic aorta is mildly dilated to 3.1 cm. Consider nonemergent but timely outpatient CT angiography of the chest and appropriate referral for monitoring/potential intervention. Mild esophagitis/gastritis. Periesophageal lymphadenopathy. Hepatomegaly with steatosis. Mid small bowel obstruction, transition point in the left lateral abdomen. Small volume ascites. Bladder wall thickening, likely secondary to chronic outlet obstruction from prostatomegaly. Small Bowel X-Ray 01/18/25 15:02 IMPRESSION: 1. Small bowel obstruction. Chest X-Ray 01/24/25 14:53 IMPRESSION: Right PICC line with the tip overlying the right atrium. Cardiomegaly. Minimal opacification in the left lung base. Abdomen X-Ray 01/30/25 14:53 IMPRESSION: 1. Nasogastric tube tip in the stomach. 2. Dilated small bowel, likely adynamic ileus given the recent surgery. Labs Labs: Laboratory Results - last 24 hr 02/04/25 02/04/25 02/05/25 16:46 20:05 07:02 WBC 6.5 RBC 4.16 L Hgb 11.6 L Hct 37.0 L MCV 88.9 MCH 27.9 MCHC 31.4 L RDW 13.8 Plt Count 230 MPV 10.6 H Sodium 138 Potassium 3.8 Chloride 101 Carbon Dioxide 30 Anion Gap 7 BUN 17 Creatinine 1.00 Estim Creat Clear Calc 66 Estimated GFR > 60 Glucose 145 H POC Capillary Glucose 140 H 137 H Calcium 8.8 Magnesium 1.7 02/05/25 02/05/25 08:10 11:38 WBC RBC Hgb Hct MCV MCH MCHC RDW Plt Count MPV Sodium Potassium Chloride Carbon Dioxide Anion Gap BUN Creatinine Estim Creat Clear Calc Estimated GFR Glucose POC Capillary Glucose 126 H 149 H Calcium Magnesium Quality VTE Prophylaxis VTE prophylaxis: mechanical ordered and pharmacologic ordered
[2025-02-05 17:20] LABS: Glucose Point of Care 137 mg/dl (65-105)
[2025-02-05] MEDS: amLODIPine BESYLATE 10 MG TABLET BY MOUTH (17:52)
[2025-02-05] MEDS: MELATONIN 3 MG TABLET PO (20:13)
[2025-02-05 21:46] VITALS: BP 148/73; PULSE 63; RESP 20; TEMP 36.6; O2SAT 98
[2025-02-06 05:43] LABS: Glucose Point of Care 145 mg/dl (65-105)
[2025-02-06 05:46] LABS: Hemoglobin 11.1 g/dL (14.0-18.0); Mean Corpuscular HGB Conc 30.8 g/dl (32-36); Mean Corpuscular Hemoglobin 27.1 pg (26-34); Mean Corpuscular Volume 87.8 fl (80-100); Platelet Count Result 236 k/mm3 (150-375); Red Cell Distribution Width 13.7 % (11.5-14.5); White Blood Count 7.2 K/mm3 (4.5-10.0)
[2025-02-06 06:00] VITALS: BP 145/68; PULSE 58; RESP 20; TEMP 36.1; O2SAT 100
[2025-02-06 06:04] LABS: Anion Gap 6 mmol/L (4-12); Blood Urea Nitrogen 16 mg/dL (9-20); Calcium 8.6 mg/dL (8.4-10.2); Carbon Dioxide 30 mmol/L (22-30); Chloride 101 mmol/L (98-107); Estimated CRCL calculation 64 ml/min; Estimated Glomerular Filt Rate > 60; Glucose 126 mg/dL (65-110); Magnesium 1.4 mg/dL (1.6-2.3); Potassium 3.7 mmol/L (3.4-5.0); Sodium 137 mmol/L (137-145)
[2025-02-06] MEDS: DOXAZOSIN MESYLATE 4 MG TABLET 8 MG PO (08:28)
[2025-02-06] MEDS: ENOXAPARIN 40 MG/0.4 ML SYRINGE SUB-Q (08:28)
[2025-02-06 08:29] VITALS: PULSE 65
[2025-02-06] MEDS: PANTOPRAZOLE 40 MG TABLET PO (08:29)
[2025-02-06] MEDS: METOPROLOL TARTRATE 25 MG TABLET BY MOUTH (08:29)
[2025-02-06] MEDS: lisinopriL 20 MG TABLET 40 MG PO (08:29)
[2025-02-06 08:41] LABS: Glucose Point of Care 124 mg/dl (65-105)
[2025-02-06] MEDS: MAGNESIUM SULF 2 GM/WATER 50ML 2 GM/50 ML BAG IVPB (11:39)
[2025-02-06 11:54] LABS: Glucose Point of Care 160 mg/dl (65-105)
--- NOTE | 2025-02-06 13:04 | PM.DS ---
DS: Summary Time Spent with Patient Time attestation: Total time spent providing and/or coordinating discharge services: DS: Data Data Completed and Pending Labs on day of discharge: Labs from last 24 hours 02/06/25 02/06/25 02/06/25 11:50 08:15 05:09 WBC 7.2 RBC 4.10 L Hgb 11.1 L Hct 36.0 L MCV 87.8 MCH 27.1 MCHC 30.8 L RDW 13.7 Plt Count 236 MPV 10.0 Sodium 137 Potassium 3.7 Chloride 101 Carbon Dioxide 30 Anion Gap 6 BUN 16 Creatinine 1.03 Estim Creat Clear Calc 64 Estimated GFR > 60 Glucose 126 H POC Capillary Glucose 160 H 124 H Calcium 8.6 Magnesium 1.4 L 02/05/25 02/05/25 21:25 16:33 WBC RBC Hgb Hct MCV MCH MCHC RDW Plt Count MPV Sodium Potassium Chloride Carbon Dioxide Anion Gap BUN Creatinine Estim Creat Clear Calc Estimated GFR Glucose POC Capillary Glucose 145 H 137 H Calcium Magnesium Discharge Plan Discharge Attending physician on discharge: Som Colmenares Consulting providers: Eula Bradshaw; Xavi Gonsales Discharging Clinician: Aleta Richter Activity: may shower Diet: heart healthy Discharge Instructions: Per Care Coordination: [facility] has been arranged ([phone]) they will call you regarding start of first visit. May discharge home in stable. Follow-up in the office with Dr. Gonsales in 2 weeks. Call [phone] for an appointment. No lifting more than 5 to 10 lb for 4 to 6 weeks. May shower in 24hours after surgery but no soaking incision under water for 2 weeks. Resume all home medications and a prescription for narcotic pain medications if needed will be sent to the patient's pharmacy. May use Tylenol and/or ibuprofen in addition to or in place of narcotic pain medications. patient to follow discharge care instruction from his surgeon and follow up as scheduled, patient to follow up with his vascular surgeon for his aortic aneurysm, patient to follow up with his primary care provider as soon as possible. PLEASE CHECK PATIENT ELECTROLYTES AND Magnesium levels daily. Patient Instructions: Blood Thinners (GEN) Patient Language: Irish Follow-up/Referrals: Xavi Gonsales MD [Physician] - (Patient a call [phone] for an appointment to see Dr. Gonsales in 2 weeks.) Discharge Medications: New hydrocodone-acetaminophen 5-325 mg tablet 1 tablet PO Q4H PRN (Reason: pain) Qty: 15 0RF amlodipine 10 mg Tablet 10 mg BYMOUTH QPM Qty: 30 0RF Pedia-Lax (mag hydroxide) 400 mg (170 mg magnesium) tablet,chewable 400 mg PO DAILY Qty: 30 0RF melatonin 3 mg Tablet 3 mg PO HS PRN (Reason: Insomnia) Qty: 30 0RF clonidine 0.1 mg/24 hr Patch Weekly 1 patch transdermal WEEKLY Qty: 4 0RF aspirin 325 mg Tablet 325 mg BYMOUTH DAILY@0800 Qty: 30 0RF pantoprazole 40 mg Tablet,Delayed Release (Dr/Ec) 40 mg PO QAM Qty: 30 0RF Continued levothyroxine 25 mcg tablet 25 mcg PO DAILY Qty: 90 1RF saw palmetto 450 mg Capsule 450 mg PO DAILY Glucosamine Chondroitin 1 cap PO DAILY lisinopril-hydrochlorothiazide 20-25 mg tablet See Rx Instructions .ROUTE .COMPLEX Qty: 90 1RF Dose Instruction: Take 1 tablet by mouth once daily Rx Instructions: Take 1 tablet by mouth once daily Xarelto 20 mg tablet See Rx Instructions .ROUTE .COMPLEX Qty: 90 1RF Dose Instruction: Take 1 tablet by mouth once daily Rx Instructions: Take 1 tablet by mouth once daily doxazosin 8 mg tablet See Rx Instructions .ROUTE .COMPLEX Qty: 90 1RF Dose Instruction: Take 1 tablet by mouth once daily Rx Instructions: Take 1 tablet by mouth once daily fenofibrate micronized 134 mg capsule See Rx Instructions .ROUTE .COMPLEX Qty: 90 1RF Dose Instruction: Take 1 capsule by mouth once daily Rx Instructions: Take 1 capsule by mouth once daily triamcinolone acetonide 0.1 % cream See Rx Instructions .ROUTE .COMPLEX Qty: 80 1RF Dose Instruction: APPLY CREAM EXTERNALLY TO AFFECTED AREA TWICE DAILY TO BOTH ARMS AND LOWER LEGS Rx Instructions: APPLY CREAM EXTERNALLY TO AFFECTED AREA TWICE DAILY TO BOTH ARMS AND LOWER LEGS finasteride 5 mg tablet See Rx Instructions .ROUTE .COMPLEX Qty: 90 1RF Dose Instruction: Take 1 tablet by mouth once daily Rx Instructions: Take 1 tablet by mouth once daily simvastatin 10 mg tablet 10 mg PO DAILY Qty: 90 1RF metformin 1,000 mg tablet 1,000 mg PO BID Qty: 180 1RF Ozempic 0.25 mg or 0.5 mg (2 mg/3 mL) pen injector 0.5 mg subcut WEEKLY Qty: 3 0RF Rx Instructions: for 4 weeks metoprolol succinate 25 mg tablet extended release 24 hr 25 mg PO DAILY Qty: 90 1RF gabapentin 300 mg capsule See Rx Instructions .ROUTE .COMPLEX Qty: 90 1RF Dose Instruction: TAKE 1 CAPSULE BY MOUTH THREE TIMES DAILY Patient Comments: takes twice a day Rx Instructions: TAKE 1 CAPSULE BY MOUTH TWO TIMES DAILY Date of admission: 01/18/25 10:21 Primary Care Provider: Alida Dunn Admitting Provider: Som Colmenares Attending physician on admission: Som Colmenares Condition: Stable
== END 2025-02-06 14:45 | DRG 335 ==
LOC: ANHED 19:09 → ANH3MEDSUR 21:23 → ANHICU 01-21 19:21 → ANHIMU 01-31 13:50 → ANH3MED 02-06 13:31 → ANH3MEDSUR 02-07 08:52 → ANHICU 02-07 08:52 → ANHIMU 02-07 08:52
PROVIDERS: Internal Medicine; Physician Assistant; Surgery; Admitting Provider Internal Medicine; Emergency Provider Physician Assistant; PCP Nurse Practitioner; Visit Provider Family Medicine
PROC: 0DNU0ZZ Release Omentum, Open Approach (ICD-10-PCS; CPT 49000; principal; 2025-01-18 16:30)
DX: K56.50 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], unspecified as to partial versus complete obstruction (principal); J96.00 Acute respiratory failure, unspecified whether with hypoxia or hypercapnia; J98.11 Atelectasis; Z68.41 Body mass index [BMI] 40.0-44.9, adult; K91.89 Other postprocedural complications and disorders of digestive system; E46 Unspecified protein-calorie malnutrition; E11.29 Type 2 diabetes mellitus with other diabetic kidney complication; N40.0 Benign prostatic hyperplasia without lower urinary tract symptoms; K56.7 Ileus, unspecified; I48.91 Unspecified atrial fibrillation; I12.9 Hypertensive chronic kidney disease with stage 1 through stage 4 chronic kidney disease, or unspecified chronic kidney disease; N18.30 Chronic kidney disease, stage 3 unspecified; R41.0 Disorientation, unspecified; E87.8 Other disorders of electrolyte and fluid balance, not elsewhere classified; E78.5 Hyperlipidemia, unspecified; R79.89 Other specified abnormal findings of blood chemistry; E66.01 Morbid (severe) obesity due to excess calories; I71.21 Aneurysm of the ascending aorta, without rupture; K20.90 Esophagitis, unspecified without bleeding; K29.70 Gastritis, unspecified, without bleeding; R16.0 Hepatomegaly, not elsewhere classified; M48.00 Spinal stenosis, site unspecified; Z90.49 Acquired absence of other specified parts of digestive tract; Z86.718 Personal history of other venous thrombosis and embolism; Z79.01 Long term (current) use of anticoagulants
CPT/HCPCS: 36415; 36569; 36600; 71045; 74018; 74019; 74177; 74250; 80048; 80053; 81001; 82805; 82948; 83605; 83690; 83735; 84100; 84466; 84478; 85018; 85025; 85027; 85610; 85730; 86850; 86900; 86901; 87040; 87086; 87636; 87641; 93005; 94002; 96361; 96365; 96375; 96376; 97110; 97116; 97161; 97165; 97530; 99285; A9270; C1751; G0378; J0330; J0360; J1100; J1171; J1650; J1741; J1815; J1940; J2003; J2004; J2060; J2250; J2270; J2359; J2404; J2405; J2470; J2543; J2704; J2765; J3010; J3475; J3480; J7030; J7040; J7050; J7120; Q9967

== ENCOUNTER 2025-04-19 14:21 | Outpatient (CLI) | payer MEDICARE, SELFPAY ==
--- NOTE | ~2025-04-19 | XR_ITS ---
[id number] Ordering provider: Alida Dunn, [employer] History: . fell down bleachers 3 wks ago, mid ant Lt rib pain . Comparison: None. FINDINGS: BONES: Fracture of the left 6th, seventh and eighth ribs. LEFT LUNG: No effusions or infiltrates. No pneumothorax. SOFT TISSUES: Normal. IMPRESSION: Fracture of the left sixth , seventh and eighth ribs. No evidence of pneumothorax. Reviewed, dictated and finalized at location A.
== END 2025-04-19 14:22 | disposition home or self-care (01) ==
LOC: GOSHIMG 14:22
PROVIDERS: PCP Nurse Practitioner; Visit Provider Nurse Practitioner
DX: S22.42XA Multiple fractures of ribs, left side, initial encounter for closed fracture (principal); X58.XXXA Exposure to other specified factors, initial encounter; R07.81 Pleurodynia
CPT/HCPCS: 71101

== ENCOUNTER 2025-05-23 13:15 | Inpatient (IN) | payer MEDICARE, SELFPAY ==
[2025-05-23] VITALS (7 sets, daily range): BP systolic 132–187; BP diastolic 58–107; PULSE 66–86; RESP 14–18; TEMP 36.5–36.9; O2SAT 96–98; BMI 45.7
--- NOTE | ~2025-05-23 | US_ITS ---
LEFT LOWER EXTREMITY VENOUS ULTRASOUND Ordering provider: Kat Armenta APRN History: . swelling, edema . Comparison: None. FINDINGS: --COMMON FEMORAL: Patent and free of thrombus. Normal compressibility, phasic flow and augmentation. --PROXIMAL SUPERFICIAL FEMORAL: Patent and free of thrombus. Normal compressibility, phasic flow and augmentation. --DISTAL SUPERFICIAL FEMORAL: Patent and free of thrombus. Normal compressibility, phasic flow and au gmentation. --POPLITEAL: Patent and free of thrombus. Normal compressibility, phasic flow and augmentation. --POSTERIOR TIBIAL: Patent and free of thrombus. Normal compressibility, phasic flow and augmentation . IMPRESSION: Negative left lower extremity venous US. No deep vein thrombosis. Reviewed, dictated and finalized at location A.
--- NOTE | ~2025-05-23 | CT_ITS ---
EXAMINATION: CT knee LT w con DATE: 05/23/2025 15:35 INDICATION: Left knee trauma and bursitis with one week of erythema and swelling TECHNIQUE: High resolution computed tomography (CT) of the left knee was performed without intravenou s contrast. Additional sagittal and coronal reconstructions were performed. Automated exposure contro l and iterative reconstruction technique were employed. The dose-length product was 519.42 mGy-cm. COMPARISON: None FINDINGS: Bone alignment is normal. No fracture. Tricompartmental osteoarthritis with small marginal osteophyte s in all 3 compartments of the knee and at least mild joint space narrowing in the medial compartment . Severity of joint space narrowing can however be underestimated on nonweightbearing imaging. Althou gh sensitivity and specificity centimeters significantly lower with CT than MRI there appears to be a low-attenuation vertically oriented radial versus parrot beak configuration tear extending across th e inner two thirds of the posterior horn of the medial meniscus. Small knee joint effusion. There is a larger peripherally enhancing prepatellar fluid collection which extends 10 cm AP and measures 9.6 x 5.2 cm in transaxial dimensions positioned along the anterolateral margin of the patella and distal quadriceps muscle and tendon. Mild surrounding subcutaneous edema with more prominent subcutaneous e jong diffusely about the visualized proximal calf. IMPRESSION: 1. 10 x 9.6 x 5.2 cm organized anterolateral prepatellar fluid collection which in the setting of tra michael most consistent with a hematoma. Differential would include bursitis on the positioning is more l ateral and cephalad than typical or abscess in the appropriate clinical setting. 2. At least mild medial compartment predominant tricompartmental osteoarthritis at the left knee alth ough severity of joint space narrowing can be underestimated on nonweightbearing imaging. 2. Likely vertical radial versus parrot beak configuration tear of the posterior horn of the medial m eniscus although specificity is lower than with MRI which could be obtained as clinically indicated f or more definitive determination. Reviewed, dictated and finalized at location A. IMPRESSION: 1. 10 x 9.6 x 5.2 cm organized anterolateral prepatellar fluid collection which in the setting of trauma most consistent with a hematoma. Differential would i nclude bursitis on the positioning is more lateral and cephalad than typical or abscess in the appropriate clinical setting. 2. At least mild medial compartment predominant tricompartmental osteoarthritis at the left knee although severity of joint space narrowing can be underestima jos on nonweightbearing imaging. 2. Likely vertical radial versus parrot beak configuration tear of the posterio r horn of the medial meniscus although specificity is lower than with MRI which could be obtained as clinically indicated for more definitive determination.
--- NOTE | ~2025-05-23 | XR_ITS ---
Left Knee Technique: AP, lateral, and sunrise views were obtained. Clinical History: Bursitis, arthritis Findings: No fracture or dislocation is seen. Osseous alignment is anatomic. There is mild tricompart mental degenerative change. There is mild diffuse subcutaneous soft tissue edema, with focal prominen t soft tissue swelling in the anterior subcutaneous soft tissues superficial to the distal quadriceps tendon.. No joint effusion is seen. Impression: Marked soft tissue swelling with probable fluid collection in the prepatellar soft tissues, suggestiv e of prepatellar bursitis. Mild tricompartmental degenerative change of the knee. Reviewed, dictated and finalized at location . Impression: Marked soft tissue swelling with probable fluid collection in the prepatellar s oft tissues, suggestive of prepatellar bursitis. Mild tricompartmental degenerative change of the knee.
--- OUTSIDE RECORDS SUMMARY | 2025-05-23 13:18 | XMS_ITS | Data Portability ---
Author Organization [place] [facility], Main Office Address [address] [place] [address] Care Team Providers Care Dental Director Name Role Phone [facility] FAX OTHER ALDO DUNN Primary Care Provider [phone] Assessment Encounter Date Assessment Date Assessment LastModified by Organization Details LastModified Time 02/07/2025 02/07/2025 check bmp, cbc, mg, 02/14 [email or web address] Not available 02/12/2025 04:25:27 02/13/2025 02/13/2025 Add [email or web address] Miralax. Labs on 02/14. Not available 02/13/2025 14:53:24 02/16/2025 02/16/2025 Pt will d/c home on 02/16 with [facility]. Not available 02/16/2025 13:30:17 Plan of Treatment Reminders Order Date Submit Date Provider Last Modified By Organization Details Last Modified Time Details Appointments None recorded. Lab None recorded. Referral None recorded. Procedures None recorded. Surgeries None recorded. Imaging None recorded. Medication Orders pantoprazol e 40 mg tablet,bety yed release [address] [facility] [address] [place], [address], 13:33:06 clonidine 0.1 mg/24 hr weekly transdermal patch [address] [facility] [address] [place], [address], 13:33:08 amlodipine 10 mg tablet [address] [facility] [address] [place], [address], 13:33:08 Patient TargetsNo targets recorded. Patient Instructions Encounter Date Encounter Id Patient Instructions Last Modified By Organization Details Last Modified Time 02/07/2025 [id number] I spent >50 minutes providing care to the patient today. More than 50% of that time was spent in discussing the expected course of the disease, discussing prognosis, coordinating care and counseling of the patient/family. I spent 16 minutes counseling and discussing advance directives and/or end of life care planning and decisions with the patient and surrogate today. I reviewed the current relevant diagnoses, treatment options, natural history, and prognosis and clarified the patient's goals of care. code status is DNR selective [email or web address] Not available 02/09/2025 05:38:02 02/16/2025 [id number] I spent 45 minutes providing care to the patient today. More than 50% of that time was spent in discussing the expected course of the disease, discussing prognosis, coordinating care and counseling of the patient/family. The patient will be discharged home with home health orders of home health RN / PT / OT to evaluate and treat. The patient is homebound because of fall risk and is unable to leave home safely because requires considerable and taxing effort to leave home. The patient requires home health nursing for instruction, observation and assessment; PT for training to restore safe independent functional ambulation in community; and OT for training to improve ability to fulfill ADLs. Please follow-up with your primary care provider within 1 week. Call your primary care provider for instructions or go to the emergency room for new or worsening symptoms. [email or web address] Not available 02/16/2025 13:32:57 Reason for Referral None Reported. Results Created Date Observation Date Name Description Value Unit Range Abnormal Flag Note LastModifiedBy Organization Detail LastModifiedTime 02/15/20 25 02/14/2025 lab* A1C 6.7 Not Available [facility] [address] [facility], [place], [address], 02/15/2025 11:17:01 Result Notes None recorded. Procedures Surgical History Date Name Laterality Status Provider Name and Address Organization Details Recorded Time 11/22/18 93 nasal septoplasty completed Ana M Cook [facility] 02/09/2025 12:02:44 11/22/18 92 Cholecystectomy completed Ana M Khan [place] [facility] 02/09/2025 12:03:10 11/22/18 49 Tonsillectomy completed Ana M Khan [place] [facility] 02/09/2025 12:03:00 partial excision [place] [address] [place], [address], [place] [facility] 02/12/2025 03:10:25 Imaging Results None recorded. Procedure Notes None recorded. Medical Equipment None Reported. Allergies No known drug allergies Medications Name Sig Start Date Stop Date Status Note LastModified by Organization Details LastModified Time Miralax 17 gram oral powder packet Take 1 packet every other day by oral route. active Not Available Not Available No t Available clonidine 0.1 mg/24 hr weekly transdermal patch Apply 1 patch every week by transdermal route. 2024 active Not Available Not Available Not Avai lable aspirin 325 mg tablet Take 1 tablet every day by oral route. active Not Available Not Available No t Available hydrocodone 5 mg-acetamino phen 325 mg tablet Take 1 tablet every 4 hours by oral route as needed. 2024 active Not Available Not Available Not Avai lable simvastatin 10 mg tablet Take 1 tablet every day by oral route. active Not Available Not Available No t Available melatonin 3 mg tablet Take 1 tablet every day by oral route as needed. active Not Available Not Available No t Available triamcinolon e acetonide 0.1 % topical cream Apply 1 application twice a day by topical route. active Not Available Not Available No t Available fenofibrate micronized 134 mg capsule Take 1 capsule every day by oral route. active Not Available Not Available No t Available levothyroxin e 25 mcg tablet Take 1 tablet every day by oral route. active Not Available Not Available No t Available doxazosin 8 mg tablet Take 1 tablet every day by oral route. active Not Available Not Available No t Available amlodipine 10 mg tablet Take 1 tablet every day by oral route. 2024 active Not Available Not Available Not Avai lable pantoprazole 40 mg tablet,delay ed release Take 1 tablet every day by oral route. 2024 active Not Available Not Available Not Avai lable metformin 1,000 mg tablet Take 1 tablet twice a day by oral route. active Not Available Not Available No t Available gabapentin 300 mg capsule Take 1 capsule twice a day by oral route. active Not Available Not Available No t Available lisinopril 20 mg-hydrochlo rothiazide 25 mg tablet Take 1 tablet every day by oral route. active Not Available Not Available No t Available metoprolol succinate ER 25 mg tablet,exten ded release 24 hr Take 1 tablet every day by oral route. active Not Available Not Available No t Available finasteride 5 mg tablet Take 1 tablet every day by oral route. active Not Available Not Available No t Available saw palmetto 450 mg capsule Take 1 capsule every day by oral route. active Not Available Not Available No t Available Pedia-Lax (mag hydroxide) 400 mg (170 mg magnesium) chewable tablet Take 1 tablet every day by oral route. active Not Available Not Available No t Available Xarelto 20 mg tablet Take 1 tablet every day by oral route. active Not Available Not Available No t Available Glucosamine Chondroitin 550 mg-30 mg-1 mg capsule Take 1 capsule every day by oral route. active Not Available Not Available No t Available Ozempic 0.25 mg or 0.5 mg (2 mg/3 mL) subcutaneous pen injector Inject 0.5 mg every week by subcutaneou s route. active Not Available Not Available No t Available Vitals Date Recorded Heart rate Body temperature Respiratory rate Oxygen saturation Oxygen saturation in Arterial blood by Pulse oximetry Body weight Systolic blood pressure Diastolic blood pressure Provider Name and Address Organization Details Last Updated DateTime 5 71 /min 97.9 [degF] 18 /min 97 % 97 % 493346. 79 g 153 mm[Hg] 77 mm[Hg] [place] [address] [place], [address], [place] [facility] 5 04:54:53 Date Recorded Heart rate Body temperature Respiratory rate Oxygen saturation Oxygen saturation in Arterial blood by Pulse oximetry Body weight Body mass index (BMI) Body height Systolic blood pressure Diastolic blood pressure Provider Name and Address Organization Details Last Updated DateTime 5 59 /min 97.8 [degF] 18 /min 95 % 95 % 711753. 79 g 44.1 kg/m2 172.72 cm 151 mm[Hg] 77 mm[Hg] Edita Riley, ANDRÉS [address] [place], [address], [place] [facility] 14:35:45 Date Recorded Body height Heart rate Body temperature Respiratory rate Oxygen saturation Oxygen saturation in Arterial blood by Pulse oximetry Body mass index (BMI) Body weight Systolic blood pressure Diastolic blood pressure Provider Name and Address Organization Details Last Updated DateTime 172.72 cm 69 /min 97.4 [degF] 20 /min 94 % 94 % 44.1 kg/m2 761405. 79 g 140 mm[Hg] 72 mm[Hg] [place] [address] [facility], [place], [address], [place] [facility] 13:11:47 Social History Question Answer Notes LastModified by [employer] Details LastModified Time Tobacco Smoking Status Never Smoker Ana M Khan null, [place] [facility] 02/09/2025 12:08:57 What Is Your Code Status? DNR [email or web address] Information not available 02/07/2025 Sex: Unknown Functional Status Question Answer Note LastModified by [employer] Details LastModified Time What is your level of alcohol consumption? Occasional Information not available 02/09/2025 Mental Status None recorded. Family History Relationship Description Onset Age of this Age Resolved Age Notes LastModified by Organization Details LastModified Time Unspecified Relation Diabetes mellitus unspec ified grandp arent Not available 02/09/2025 12:04:21 Unspecified Relation Hypertensive disorder unspec ified grandp arents u26 Not available 02/09/2025 12:05:01 Unspecified Relation Cerebrovascu lar accident unspec ified grandp arent Not available 02/09/2025 12:05:17 Father Hypertensive disorder Not available 2024 12:05:32 Father Family history of Raised blood lipids Not available 2024 12:06:17 Father Cerebrovascu lar accident u26 Not available 12:06:39 Father History of cardiovascul ar disease u26 Not available 02/09 12:08:17 Mother Hypertensive disorder u26 Not available 2024 12:05:40 Mother Family history of Raised blood lipids Not available 2024 12:06:17 Mother Diabetes mellitus twu Not available 2024 12:06:25 Mother Cerebrovascu lar accident twu Not available 12:06:43 Mother History of cardiovascul ar disease twu Not available 02/09 12:08:17 Medical History Condition Response Spinal Stenosis Y Ulcer -- Venous Stasis Y GI Bleed Y Fracture Y Past Encounters Encounter ID Performer Location Encounter Start Date Encounter Closed Date Diagnosis/Indication Diagnosis SNOMED-CT Code Diagnosis ICD10 Code Diagnosis Note [id number] Caity Thomas, DO [address] [address] 02/07/2025 08:50:05 02/18/2025 03:05:38 Small bowel obstruction 701718863 K56.609 s/p surgical interventi on 01/18contin ue wound caref/u with Dr. Gonsales 2 weeks - appt needs to be scheduledt he patient is tolerating a regular dietbowels are movingprn norco ordered for painmonito r clinically Aneurysm o f thoracic aorta 116394156 I71.20 descending thoracic aneurysm measuring 3.1 cmthe patient has been referred to [facility] - son has already called to schedule appointmen t. The office has requested records from [place] prior to scheduling appointmen tcontinue ASA, optimize blood pressure control and monitor closely Aneurysm o f ascending aorta 311358966 I71.21 ascending aneurysm measuring 5.6 cmsee above Steatotic liver disease 535930442 K76.0 with hepatomega ly and mild ascites per CT imaging done during his hospitaliz ationLFTs were mildly elevated during his inpatient stay - they have since normalized He will need outpatient observatio n related to this Benign pro static hyperplasia without outflow obstruction 807400113 N40.0 he denies recent urinary retentionc ontinue proscar and doxazosin Hypothyroidism 15942176 E03.9 presumed stable - continue synthroid Essential hypertension 07415076 I10 poorly controlled during his hospitaliz ationhe had addition of amlodipine and clonidine patch to his usual outpatient meds to include lisinopril -HCTZ, doxazosin and metoprolol continue to trend and adjust meds as clinically indicated Diabetes mellitus 976453 09 E11.51 the patient was taking metformin as an outpatient - he also has ozempic ordered but he reports he was taking this for weight loss, not diabeteshe does not check blood sugars at home - does not have a glucometer no recent Hba1c per current hospital documents - might consider checking while herefor now, will follow blood sugars, continue metformin Hyperlipidemia 62561108 E78.5 presumed stable - continue statin therapy as well as fenofibrat e Gastritis 0680391 K29.70 continue ppi therapy History of deep vein thrombosis 619140915 Z86.718 continue xarelto Chronic ki dney disease stage 3 646789557 N18.30 stage 3 by history - avoid nephrotoxi ns, trend labs Delirium 6007651 F09 this complicate d his post operative course with a hospital elopement attempt - he ultimately required ICU admission and a precedex drip for sedationco nfusion is resolved and he has not required continued antipsycho tic meds or sedating medswill monitor clinically Obesity 144435028 E66.9 the patient had been taking ozempic as an outpatient per PCP for weight loss - he reports about a 30 pound weight loss over the recent monthsthis medication was ordered on hospital discharge - the patient would need to bring in from home to continueha ve discussed with patient and family continued use especially in light of recent GI issues and surgery and the patient will hold medication for now. He can further discuss resumption of this with PCP as an outpatient . Diabetic p eripheral neuropathy 906426047 E11.40 continue neurontin and prn norco Physical deconditioning 0820022205 9102 R68.89 related to advanced age, recent hospitaliz ation / surgery and comorbidit iestherapi es are in place - the patient is hopeful to return home alone soon - will monitor progress [id number] Caity Thomas, DO [place] [address] [place] [address] 02/13/2025 09:52:07 02/18/2025 03:03:31 Small bowel obstruction 302274612 K56.609 s/p explorator y lap with abdominal adhesiolys is on 01/18.Robert nue wound careTolera ting a regular diet.Add q15cigl Miralax.Co ntinue PRN APAP & Metuchen for pain.Monit or clinically .F/U with Dr. Gonsales on 02/22. Aneurysm o f thoracic aorta 642249853 I71.20 Descending thoracic aneurysm measuring 3.1 cm.Has been referred to CT [facility]. Son has already called to schedule appointmen t. The office has requested records from [place] prior to scheduling appointmen tContinue ASA, optimize blood pressure control, and monitor closely. Aneurysm o f ascending aorta 624680248 I71.21 Ascending aneurysm measuring 5.6 cm.SEE ABOVE... Steatotic liver disease 179603075 K76.0 with hepatomega ly and mild ascites per CT imaging done during his hospitaliz ation.LFTs were mildly elevated during his inpatient stay. They have since normalized .He will need outpatient observatio n related to this. Benign pro static hyperplasia without outflow obstruction 610168745 N40.0 Denies recent urinary retention. Continue Proscar and Doxazosin. Hypothyroidism 80468387 E03.9 Presumed stable. Continue Synthroid. Essential hypertension 07853847 I10 Poorly-con trolled during his hospitaliz ation. Added Amlodipine and Clonidine patch to his usual outpatient regimen of Lisinopril -HCTZ, Doxazosin, and Metoprolol .Stable here. Continue to trend blood pressures, monitor lytes and renal function, and adjust meds as clinically indicated. Diabetes mellitus 466805 09 E11.51 Was taking Metformin and Ozempic as an outpatient . Continues on this regimen here.He does not check blood sugars at home - does not have a glucometer .No recent Hba1c per current hospital documents. Consider checking while here.For now, will follow blood sugars. Hyperlipidemia 02017917 E78.5 Presumed stable. Continue statin and fenofibrat e. Gastritis 8317412 K29.70 Stable. Continue PPI, especially as pt is on full-dose ASA & Xarelto. History of deep vein thrombosis 538784170 Z86.718 Details unclear. Continue full-dose ASA & Xarelto -- monitor for bleeding. Chronic ki dney disease stage 3 144406336 N18.30 Stage 3 by history.Av oid nephrotoxi ns and trend labs. Delirium 1958466 F09 Complicate d his post operative course with a hospital elopement attempt. He ultimately required ICU admission and a Precedex drip for sedation.C onfusion is resolved and he has not required continued antipsycho tic meds or sedating meds.Monit or clinically . Obesity 164369545 E66.9 Patient had been taking Ozempic as an outpatient per PCP for weight loss. He reports about a 30 pound weight loss over the recent months. Dr. Martha leiva discussed with patient and family continued use especially in light of recent GI issues and surgery. Diabetic p eripheral neuropathy 595512148 E11.40 Stable. Continue Neurontin and PRN APAP & Metuchen. Physical deconditioning 5343600265 9102 R68.89 Related to advanced age, recent hospitaliz ation/surg raul, and comorbidit ies.Contin ue to monitor progress with therapies. Patient is hopeful to return home alone soon. Monitor progress. [id number] Caity Thomas, DO [address] [address] 02/16/2025 12:46:58 02/18/2025 03:05:00 Small bowel obstruction 388760526 K56.609 s/p explorator y lap with abdominal adhesiolys is on 01/18.Robert nue wound careTolera ting a regular diet.Add [id number] Miralax.Co ntinue PRN APAP & Metuchen for pain.Monit or clinically .F/U with Dr. Gonsales on 02/22. Aneurysm o f thoracic aorta 426388008 I71.20 Descending thoracic aneurysm measuring 3.1 cm.Has been referred to [facility]. Son has already called to schedule appointmen t. The office has requested records from [place] prior to scheduling appointmen tContinue ASA, optimize blood pressure control, and monitor closely. Aneurysm o f ascending aorta 350835156 I71.21 Ascending aneurysm measuring 5.6 cm.SEE ABOVE... Essential hypertension 90661233 I10 Poorly-con trolled during his hospitaliz ation. Added Amlodipine and Clonidine patch to his usual outpatient regimen of Lisinopril -HCTZ, Doxazosin, and Metoprolol .Stable here. Continue to trend blood pressures. Diabetes mellitus 490574 09 E11.51 Was taking Metformin and Ozempic as an outpatient . Continues on this regimen here.He does not check blood sugars at home - does not have a glucometer .No recent Hba1c per current hospital documents. HgA1c on 02/14 is 6.7%.Follo w blood sugars as OP. Diabetic p eripheral neuropathy 916704964 E11.40 Stable. Continue Neurontin and PRN APAP & Metuchen. Chronic ki dney disease stage 3 175612502 N18.30 Stage 3 by history.Av oid nephrotoxi ns and trend labs. Hypothyroidism 35974433 E03.9 Presumed stable. Continue Synthroid. Hyperlipidemia 09587040 E78.5 Presumed stable. Continue statin and fenofibrat e. Benign pro static hyperplasia without outflow obstruction 262689200 N40.0 Denies recent urinary retention. Continue Proscar and Doxazosin. Steatotic liver disease 105843813 K76.0 with hepatomega ly and mild ascites per CT imaging done during his hospitaliz ation.LFTs were mildly elevated during his inpatient stay. They have since normalized .He will need outpatient observatio n related to this. Gastritis 1773224 K29.70 Stable. Continue PPI, especially as pt is on full-dose ASA & Xarelto. Obesity 823532068 E66.9 Patient had been taking Ozempic as an outpatient per PCP for weight loss. He reports about a 30 pound weight loss over the recent months. Dr. Thomas has discussed with patient and family continued use especially in light of recent GI issues and surgery. Delirium 7145773 F09 Complicate d his post operative course with a hospital elopement attempt. He ultimately required ICU admission and a Precedex drip for sedation.C onfusion is resolved and he has not required continued antipsycho tic meds or sedating meds.Monit or clinically . History of deep vein thrombosis 739483075 Z86.718 Details unclear. Continue full-dose ASA & Xarelto -- monitor for bleeding. Health Concerns Section Related Observation LastModified by Organization Detai ls LastModified Time None Recorded Concern Status LastModified by Organization Details LastModified Time None Recorded Advance Directives Directive None Recorded Payers Insurance Date Sequence Insurance Name Policy Number Policy Gramajo Covered Member ID Gramajo Member ID Guarantor Name 02/18/2025 1 [employer] (MEDICARE REPLACEMENT/ ADVANTAGE - HMO) [id number] Yash Aguirre [id number] Yash Aguirre 02/07/2025 1 [facility] (MEDICARE REPLACEMENT/ ADVANTAGE - HMO) Yash Aguirre [id number] Yash Aguirre Notes Date Note Type Note Provider Name and Address Organization Details Recorded Time 02/07/2025 text/html 79 Y/O male with a PMH of DM, HTN, HLD, DVT, BPH, obesity and CKD admitted to [facility] for post acute rehab subsequent to an inpatient stay at [facility] 01/17-02/07/2025 related to abdominal pain. He was found to have a small bowel obstruction that ultimately required surgical intervention. He is s/p exploratory laparotomy with abdominal adhesiolysis 01/18/[address] Gonsales. His post-operative course was complicated by delirium with an elopement attempt. The patient actually left the hospital and was found across the street by law enforcement agency. He ultimately required admission to the ICU after this incident for a precedex infusion, restraints, ativan and multiple antipsychotics. He also had very elevated blood pressures during his hospitalization that required IV antihypertensives and now addition of new oral antihypertensives on hospital discharge. He was also noted to have an AAA and thoracic aneurysm per imaging and has been referred to CT surgery at [facility] for further outpatient evaluation. There is no discharge summary available for review related to his hospitalization at this time. I have reviewed the few progress notes provided on transfer to [facility] as well as labs and imaging available. Additionally, some details have been provided from the patient and family today. New medications: Metuchen, Amlodipine, ASA, clonidine patch, melatonin, pantoprazole The patient is sitting at the bedside today visiting with his sister, Chel and one of his sons, Anthony, who is here from [place]. The patient reports he is feeling well. He doesn't really believe he needs to be here as he thinks he can care for himself at home at this time. He has no pain and no medical concerns. He is unaware of his new medications added during his hospitalization and doesn't remember many of the details related to his stay. He has lost about 10 pounds during his inpatient stay as his usual weight is >300 pounds. He does not usually check blood sugars or blood pressures at home. His son has contacted CTS at [facility] for a f/u appointment related to the patient's aneurysms. Anthony reports they are awaiting further records from [place] before scheduling an appointment. No nursing concerns today. The patient lives alone in a home, drives and cares for himself - he will return home alone upon d/c from [facility] contacts are his sons Orion and Anthony or his sister, Chel who lives locallyCode status is DNR selectivePCP Aldo Dunn, NPPharmacy is [facility]ia [facility], [address] [place], [address], [facility] 02/12/2025 04:32:45 02/13/2025 text/html F/U [facility] s/p exploratory lap with abdominal adhesiolysis, post-operative delirium with elopement attempt, HTN, AAA and thoracic aneurysms, deconditioning, and chronic medical conditions.---02/07/25T he patient is sitting at the bedside today visiting with his sister, Chel and one of his sons, Anthony, who is here from [place]. The patient reports he is feeling well. He doesn't really believe he needs to be here as he thinks he can care for himself at home at this time. He has no pain and no medical concerns. He is unaware of his new medications added during his hospitalization and doesn't remember many of the details related to his stay. He has lost about 10 pounds during his inpatient stay as his usual weight is >300 pounds. He does not usually check blood sugars or blood pressures at home. His son has contacted [facility] at [place] for a f/u appointment related to the patient's aneurysms. Anthony reports they are awaiting further records from [place] before scheduling an appointment. No nursing concerns today. The patient lives alone in a home, drives and cares for himself - he will return home alone upon d/c from .---02/13/25Robert is doing well today, without concerns or pain to speak of, even when we discuss his abdominal incision. He does report that he has not had a BM in 3-4 days. On review, he last had a BM on 02/11. He does not report having issues with constipation as OP and does not typically take cathartics. He is in agreement to start daily Miralax. VSS. Staff is without concerns today. Edita Riley, ANDRÉS [address] [facility], [place], [id number], [employer] [facility] 02/13/2025 14:58:53 02/16/2025 text/html 79 Y/O male with a PMH of DM, HTN, HLD, DVT, BPH, obesity and CKD admitted to [place] for post acute rehab subsequent to an inpatient stay at [facility] 01/17-02/07/2025 related to abdominal pain. He was found to have a small bowel obstruction that ultimately required surgical intervention. He is s/p exploratory laparotomy with abdominal adhesiolysis 01/18/[address] Gonsales. His post-operative course was complicated by delirium with an elopement attempt. The patient actually left the hospital and was found across the street by law enforcement agency. He ultimately required admission to the ICU after this incident for a precedex infusion, restraints, ativan and multiple antipsychotics. He also had very elevated blood pressures during his hospitalization that required IV antihypertensives and now addition of new oral antihypertensives on hospital discharge. He was also noted to have an AAA and thoracic aneurysm per imaging and has been referred to CT surgery at [facility] for further outpatient evaluation. There is no discharge summary available for review related to his hospitalization at this time. I have reviewed the few progress notes provided on transfer to [place] as well as labs and imaging available. Additionally, some details have been provided from the patient and family today. New medications: [place], Amlodipine, ASA, clonidine patch, melatonin, pantoprazole Alternate contacts are his sons Wes or his sister, Chel who lives locallyCode status is DNR selectivePCMing Dunn NP---02/07/25 patient is sitting at the bedside today visiting with his sister, Chel and one of his sons, Anthony, who is here from [place]. The patient reports he is feeling well. He doesn't really believe he needs to be here as he thinks he can care for himself at home at this time. He has no pain and no medical concerns. He is unaware of his new medications added during his hospitalization and doesn't remember many of the details related to his stay. He has lost about 10 pounds during his inpatient stay as his usual weight is >300 pounds. He does not usually check blood sugars or blood pressures at home. His son has contacted [facility] at [place] for a f/u appointment related to the patient's aneurysms. Anthony reports they are awaiting further records from [place] before scheduling an appointment. No nursing concerns today. The patient lives alone in a home, drives and cares for himself - he will return home alone upon d/c from .---02/13/25Yash is doing well today, without concerns or pain to speak of, even when we discuss his abdominal incision. He does report that he has not had a BM in 3-4 days. On review, he last had a BM on 02/11. He does not report having issues with constipation as OP and does not typically take cathartics. He is in agreement to start daily Miralax. VSS. Staff is without concerns today.---02/16/25Yash is seated in his recliner, doing well, without concerns and is looking forward to discharging back to his home today. He feels safe regarding his discharge plan and prepared. I review his medications with him at length, as he seems somewhat resistant to taking them, so I take the time to review precisely why he needs his new clonidine patches, Amlodipine etc. He expresses understanding. VSS. Staff is without concerns at present. Edita Riley, ANDRÉS [address] [place], [id number], [place] [facility] 02/16/2025 13:33:45
--- OUTSIDE RECORDS SUMMARY | 2025-05-23 13:19 | XMS_ITS ---
Author Name Auto Generated, Auto Generated Organization [facility] ices Address [address] [place] [address] Phone [phone] Care Team Providers Care Stacker Attendant Name Role Phone Vincent Noonan Unavailable [phone] MatildeyoelRachelle hay Unavailable [phone] Edita Riley Unavailable Daniellekristine Caity Unavailable Functional Status No Results Mental Status No Results Allergies and Intolerances Name Onset Date Reaction Severity No Known Allergies (Allergy) WedFeb 06 15:59:00 EDT 2024 Encounters Program Name Primary Diagnosis Admission Date/Time Dis charge Date/Time Home Care [place] Feb 18 20:00 :00 EDT 2024Mar 09 19:59:59 EDT 2024 [facility] WedFeb 06 11:00:00 EDT 2024Feb 16 09:57:00 EDT 2024 Immunizations Name Dates Status TST-PPD intradermal WedFeb 06 01:00:00 EDT 2024 Completed TST-PPD intradermal [place] Feb 08 01:00:00 EDT 2024 Completed TST-PPD intradermal [facility] Feb 15 01:00:00 EDT 2024 Completed TST-PPD intradermal WedFeb 13 01:00:00 EDT 2024 Completed Medications Medication Directions Start Date End Date levothyroxine 25 mcg tablet 1 TAB TABLET Oral Every 1 Day WedFeb 19 01:00:00 EDT 2024Mar 09 01:00:00 EDT 2024 aspirin 325 mg tablet 1 TAB TABLET Oral Every 1 Day WedFeb 19 01:00:00 EDT 2024Mar 09 01:00:00 EDT 2024 cloNIDine 0.1 mg/24 hr weekly transdermal patch 1 PATCH PATCH, TRANSDERMAL WEEKLY Transdermal 1 Time Weekly CHANGE EVERY WednesdayFeb 19:00:00 EDT 2024Mar 09:00:00 EDT 2024 doxazosin 8 mg tablet 1 TAB TABLET Oral Every 1 Day WedFeb 19:00:00 EDT 2024Mar 09:00:00 EDT 2024 fenofibrate micronized 134 mg capsule 1 CAP CAPSULE Oral Every 1 Day WedFeb 19:00:00 EDT 2024Mar 09:00:00 EDT 2024 finasteride 5 mg tablet 1 TAB TABLET Ora l Every 1 Day WedFeb 19:00:00 EDT 2024Mar 09:00:00 EDT 2024 Glucosamine Chondroitin Maximum Strength 500 mg-400 mg capsule 1 CAP CAPSULE Oral Every 1 Day WedFeb 19:00:00 EDT 2024Mar 09:00:00 EDT 2024 metoprolol succinate ER 25 mg tablet,extended release 24 hr 1 TAB TABLET, EXTENDED RELEASE 24 HR Oral Every 1 Day WedFeb 19:00:00 EDT 2024Mar 09::00 EDT 2024 pantoprazole 40 mg tablet,delayed release 1 TAB TABLET, DELAYED RELEASE (ENTERIC COATED) Oral Every 1 Day WedFeb 19:00:00 EDT 2024Mar 09:00:00 EDT 2024 polyethylene glycoL 3350 17 gram oral powder packet 17 GRAM POWDER IN PACKET (EA) Oral Every 2 Days WedFeb 19:00:00 EDT 2024Mar 09:00:00 EDT 2024 saw palmetto 450 mg capsule 1 CAP CAPSULE Oral Every 1 Day WedFeb 19::00 EDT 2024Mar 09:00:00 EDT 2024 simvastatin 10 mg tablet 1 TAB TABLET Or al Every 1 Day WedFeb 19:00:00 EDT 2024Mar 09:00:00 EDT 2024 gabapentin 300 mg capsule 1 CAP CAPSULE Oral 2 Times Daily WedFeb 19:00:00 EDT 2024Mar 09:00:00 EDT 2024 metFORMIN 1,000 mg tablet 1 TAB TABLET O ral 2 Times Daily WedFeb 19:00:00 EDT 2024Mar 09:00:00 EDT 2024 triamcinolone acetonide 0.1 % topical cream 1 APPLICATION CREAM (GRAM) Topical 2 Times Daily TO REDNESS ON ARMS AND LEGS WedFeb 19 01:00:00 EDT 2024Mar 09 01:00:00 EDT 2024 amLODIPine 10 mg tablet 1 TAB TABLET Ora l Every 1 Day WedFeb 19 01:00:00 EDT 2024Mar 09 01:00:00 EDT 2024 Xarelto 20 mg tablet 1 TAB TABLET Oral E very 1 Day WedFeb 19 01:00:00 EDT 2024Mar 09 01:00:00 EDT 2024 acetaminophen 325 mg tablet 2 TAB TABLET Oral PRN Every 4 Hours PRN PANIDO NOT EXCEED 3 GRAM/ DAY WedFeb 19 01:00:00 EDT 2024Mar 09 01:00:00 EDT 2024 melatonin 3 mg tablet 2 tablets TABLET O ral 1 Time Daily Indication: insomnia WedFeb 15 21:00:00 EDT 2024Feb 16 01:00:00 T 2024 polyethylene glycoL 3350 17 gram/dose oral powder 17 gram POWDER (GRAM) Oral Every 2 Days Indication: constipation WedFeb 14 07:00:00 EDT 2024Feb 16 01:00:00 EDT 2024 acetaminophen 325 mg tablet 2 tablets TABLET Oral PRN Every 4 Hours Indication: pain. Do not exceed 3gm/24 hours WedFeb 13 15:14:00 EDT 2024Feb 16 01:00:00 EDT 2024 melatonin 3 mg tablet 3 mg TABLET Oral P RN 1 Time Daily for 90 Days Indication: insomnia WedFeb 12 11:52:00 ED2024Feb 15 10:42:00 EDT 2024 melatonin 3 mg tablet 3 mg TABLET Oral P RN 1 Time Daily Indication: insomnia WedFeb 07 02:00:00 EDT 2024Feb 12 11:53:00 EDT 2024 Ozempic 0.25 mg or 0.5 mg (2 mg/3 mL) subcutaneous pen injector 0.5 mg PEN INJECTOR (ML) Subcutaneous 1 Time Weekly for 4 Weeks Indication: diabetes WedFeb 07 02:00:00 EDT 2024Feb 16 01:00:00 EDT 2024 cloNIDine 0.1 mg/24 hr weekly transdermal patch 1 patch PATCH, TRANSDERMAL WEEKLY Transdermal 1 Time Weekly Indication: HTNREMOVE old patch, place new one; alternate site WedFeb 07 12:57:00 EDT 2024Feb 16 01:00:00 EDT 2024 doxazosin 8 mg tablet 8 mg TABLET Oral 1 Time Daily Indication: HTN WedFeb 07 13:02:00 EDT 2024Feb 16 01:00:00 ED2024 metoprolol succinate ER 25 mg tablet,extended release 24 hr 25 mg TABLET, EXTENDED RELEASE 24 HR Oral 1 Time Daily Indication: HTN WedFeb 07 13:04:00 EDT 2024Feb 16 01:00:00 EDT 2024 amLODIPine 10 mg tablet 10 mg TABLET Ora l 1 Time Daily Indication: HTN WedFeb 06 13:00:00 EDT 2024Feb 16 01:00:00 EDT 2024 aspirin 325 mg tablet 325 mg TABLET Oral 1 Time Daily Indication: pain WedFeb 06 13:00:00 EDT 2024Feb 16 01:00:00 ED2024 Pedia-Lax (mag hydroxide) 400 mg (170 mg magnesium) chewable tablet 400 mg TABLET,CHEWABLE Oral 1 Time Daily Indication: constipation WedFeb 06 13:00:00 ED2024Feb 16 01:00:00 EDT 2024 cloNIDine 0.1 mg/24 hr weekly transdermal patch 1 patch PATCH, TRANSDERMAL WEEKLY Transdermal 1 Time Weekly Indication: HTN WedFeb 06 13:00:00 ED2024Feb 07 12:59:00 EDT 2024 melatonin 3 mg tablet 3 mg TABLET Oral 1 Time Daily Indication: insomnia WedFeb 06 13:00:00 ED2024Feb 07 02:04:00 EDT 2024 pantoprazole 40 mg tablet,delayed release 40 mg TABLET, DELAYED RELEASE (ENTERIC COATED) Oral 1 Time Daily Indication: GERD WedFeb 06 13:00:00 EDT 2024Feb 16 01:00:00 EDT 2024 Glucosamine Chondroitin 550 mg-30 mg-1 mg capsule 1 capsule CAPSULE Oral 1 Time Daily Indication: osteoarthritis WedFeb 06 13:00:00 EDT 2024Feb 16 01:00:00 ED2024 saw palmetto 450 mg capsule 450 mg CAPSULE Oral 1 Time Daily Indication: supplement Wed 18 13:00:00 EDT 2024Feb 16 01:00:00 ED2024 lisinopriL 20 mg-hydrochlorothiazide 25 mg tablet 20-25mg TABLET Oral 1 Time Daily Indication: HTN WedFeb 06 13:00:00 ED2024Feb 16 01:00:00 EDT 2024 levothyroxine 25 mcg tablet 25 mcg TABLET Oral 1 Time Daily Indication: thyroid WedFeb 06 13:00:00 EDT 2024Feb 16 01:00:00 EDT 2024 Xarelto 20 mg tablet 20 mg TABLET Oral 1 Time Daily Indication: blood clots Wed 18 13:00:00 EDT 2024Feb 16 01:00:00 EDT 2024 doxazosin 8 mg tablet 8 mg TABLET Oral 1 Time Daily Indication: HTN Wed 18 13:00:00 EDT 2024Feb 07 13:03:00 EDT 2024 fenofibrate micronized 134 mg capsule 134 mg CAPSULE Oral 1 Time Daily Indication: HDL WedFeb 06 13:00:00 EDT 2024Feb 16 01:00:00 EDT 2024 triamcinolone acetonide 0.1 % topical cream 1 application CREAM (GRAM) Topical 2 Times Daily Indication: redness apply to affected areas to both arms and legs WedFeb 06 13:00:00 EDT 2024Feb 16 01:00:00 EDT 2024 finasteride 5 mg tablet 5 mg TABLET Oral 1 Time Daily Indication: BPH WedFeb 06 13:00:00 EDT 2024Feb 16 01:00:00 EDT 2024 simvastatin 10 mg tablet 10 mg TABLET Or al 1 Time Daily Indication: high cholesterol WedFeb 06 13:00:00 EDT 2024Feb 16 01:00:00 EDT 2024 metFORMIN 1,000 mg tablet 1000 TABLET Or al 2 Times Daily Indication: diabetes WedFeb 06 13:00:00 EDT 2024Feb 16 01:00:00 EDT 2024 metoprolol succinate ER 25 mg tablet,extended release 24 hr 25 mg TABLET, EXTENDED RELEASE 24 HR Oral 1 Time Daily Indication: HTN WedFeb 06 13:00:00 EDT 2024Feb 07 13:06:00 EDT 2024 gabapentin 300 mg capsule 300 mg CAPSULE Oral 2 Times Daily Indication: nerve pain WedFeb 06 13:00:00 EDT 2024Feb 16 01:00:00 EDT 2024 HYDROcodone 5 mg-acetaminophen 325 mg tablet 5-325mg TABLET Oral PRN Every 4 Hours Indication: pain WedFeb 06 13:00:00 EDT 2024Feb 16 01:00:00 EDT 2024 TubersoL 5 tub. unit/0.1 mL intradermal injection solution 0.1 ml VIAL (ML) Intradermal 1 Time Weekly for 2 Weeks Indication: admit 1st injection on admission, then one week after. Read between 48 and 72 hours WedFeb 06 13:00:00 EDT 2024Feb 16 01:00:00 EDT 2024 TubersoL 5 tub. unit/0.1 mL intradermal injection solution Read Results VIAL (ML) Other 1 Time Weekly for 2 Weeks Indication: admit Read results between 48-72 hours after 1st and 2nd (1 week apart). Any reading of 10mm or greater results in a positive test, an x-ray will need to be ordered as a follow up. WedFeb 08 07:00:00 EDT 2024Feb 16 01:00:00 EDT 2024 Problems Active Concerns * Personal history of other venous thrombosis and embolism* Code: * Start Date: WedFeb 06 00:00:00 EDT 2024 * End Date: * Text: * Personal history of other diseases of the digestive system* Code: * Start Date: WedFeb 06 00:00:00 EDT 2024 * End Date: * Text: * Fatty (change of) liver, not elsewhere classified* Code: * Start Date: WedFeb 06 00:00:00 EDT 2024 * End Date: * Text: * Benign prostatic hyperplasia without lower urinary tract symptoms* Code: * Start Date: WedFeb 06 00:00:00 EDT 2024 * End Date: * Text: * Morbid (severe) obesity due to excess calories* Code: * Start Date: WedFeb 06 00:00:00 EDT 2024 * End Date: * Text: * Body mass index [BMI]40.0-44.9, adult* Code: * Start Date: WedFeb 06 00:00:00 EDT 2024 * End Date: * Text: * Hypothyroidism, unspecified* Code: * Start Date: WedFeb 06 00:00:00 EDT 2024 * End Date: * Text: * Encounter for surgical aftercare following surgery on the digestive system* Code: * Start Date: WedFeb 06 00:00:00 EDT 2024 * End Date: * Text: * meterman (current) use of anticoagulants* Code: * Start Date: WedFeb 06 00:00:00 EDT 2024 * End Date: * Text: * Nonrheumatic aortic (valve) stenosis* Code: * Start Date: WedFeb 06 00:00:00 EDT 2024 * End Date: * Text: * Hypertensive chronic kidney disease with stage 1 through stage 4 chronic kidney disease, or unspecified chronic kidney disease* Code: * Start Date: WedFeb 06 00:00:00 EDT 2024 * End Date: * Text: * Type 2 diabetes mellitus with diabetic chronic kidney disease* Code: * Start Date: WedFeb 06 00:00:00 EDT 2024 * End Date: * Text: * Chronic kidney disease, stage 3 unspecified* Code: * Start Date: WedFeb 06 00:00:00 EDT 2024 * End Date: * Text: * Aneurysm of the ascending aorta, without rupture* Code: * Start Date: WedFeb 06 00:00:00 EDT 2024 * End Date: * Text: * Other ascites* Code: * Start Date: WedFeb 06 00:00:00 EDT 2024 * End Date: * Text: * 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], with partial obstruction* Code: * Start Date: WedFeb 06 00:00:00 EDT 2024 * End Date: * Text: * assisted (current) use of aspirin* Code: * Start Date: WedFeb 06 00:00:00 EDT 2024 * End Date: * Text: * Constipation, unspecified* Code: * Start Date: WedFeb 06 00:00:00 EDT 2024 * End Date: * Text: * Gastro-esophageal reflux disease with esophagitis, without bleeding* Code: * Start Date: WedFeb 06 00:00:00 EDT 2024 * End Date: * Text: * Hyperlipidemia, unspecified* Code: * Start Date: WedFeb 06 00:00:00 EDT 2024 * End Date: * Text: * assisted (current) use of oral hypoglycemic drugs* Code: * Start Date: WedFeb 06 00:00:00 EDT 2024 * End Date: * Text: * assisted (current) use of opiate analgesic* Code: * Start Date: WedFeb 06 00:00:00 EDT 2024 * End Date: * Text: * Insomnia, unspecified* Code: * Start Date: WedFeb 06 00:00:00 EDT 2024 * End Date: * Text: * Gastritis, unspecified, without bleeding* Code: * Start Date: WedFeb 06 00:00:00 EDT 2024 * End Date: * Text: * Type 2 diabetes mellitus with diabetic polyneuropathy* Code: * Start Date: WedFeb 06 00:00:00 EDT 2024 * End Date: * Text: * Other penitentiary (current) drug therapy* Code: * Start Date: WedFeb 19 00:00:00 EDT 2024 * End Date: * Text: * Body mass index [BMI] 45.0-49.9, adult* Code: * Start Date: WedFeb 19 00:00:00 EDT 2024 * End Date: * Text: * Obesity, unspecified* Code: * Start Date: WedFeb 19 00:00:00 EDT 2024 * End Date: * Text: * Gastro-esophageal reflux disease without esophagitis* Code: * Start Date: WedFeb 19 00:00:00 EDT 2024 * End Date: * Text: * Type 2 diabetes mellitus with diabetic neuropathy, unspecified* Code: * Start Date: WedFeb 19 00:00:00 EDT 2024 * End Date: * Text: * Chronic kidney disease, unspecified* Code: * Start Date: WedFeb 19 00:00:00 EDT 2024 * End Date: * Text: * Thoracic aortic aneurysm, without rupture, unspecified* Code: * Start Date: WedFeb 19 00:00:00 EDT 2024 * End Date: * Text: * [id number] Yash receives a therapeutic diet. (12)* Code: * Start Date: WedFeb 14 00:00:00 EDT 2024 * End Date: * Text: [id number] Yash receives a therapeutic diet. (12) Vital Signs Vital Sign Measurement Date Systolic Blood Pressure 140.00 mm[Hg] WedFeb 16 09:36:10 EDT 2024 Diastolic Blood Pressure 72.00 mm[Hg] WedFeb 16 09:36:10 EDT 2024 Systolic Blood Pressure 140.00 mm[Hg] WedFeb 16 09:36:10 EDT 2024 Diastolic Blood Pressure 72.00 mm[Hg] WedFeb 16 09:36:10 EDT 2024 Systolic Blood Pressure 140.00 mm[Hg] WedFeb 16 09:36:10 EDT 2024 Diastolic Blood Pressure 72.00 mm[Hg] WedFeb 16 09:36:10 EDT 2024 Systolic Blood Pressure 140.00 mm[Hg] WedFeb 16 09:36:10 EDT 2024 Diastolic Blood Pressure 72.00 mm[Hg] WedFeb 16 09:36:10 EDT 2024 Pulse Oximetry 94.00 % WedFeb 16 09:36 :10 EDT 2024 Heart Rate 69.00 /min WedFeb 16 09:36 :10 EDT 2024 Heart Rate 69.00 /min WedFeb 16 09:36 :10 EDT 2024 Body temperature 97.40 [degF] WedFeb 16 09:3 6:10 EDT 2024 Respiratory rate 20.00 /min WedFeb 16 09:3 6:10 EDT 2024 Systolic Blood Pressure 169.00 mm[Hg] WedFeb 16 00:53:31 EDT 2024 Diastolic Blood Pressure 86.00 mm[Hg] WedFeb 16 00:53:31 EDT 2024 Pulse Oximetry 94.00 % WedFeb 16 00:53 :31 EDT 2024 Heart Rate 70.00 /min WedFeb 16 00:53 :31 EDT 2024 Body temperature 98.00 [degF] WedFeb 16 00:5 3:31 EDT 2024 Respiratory rate 20.00 /min WedFeb 16 00:5 3:31 EDT 2024 Systolic Blood Pressure 152.00 mm[Hg] WedFeb 15 17:29:57 EDT 2024 Diastolic Blood Pressure 75.00 mm[Hg] [facility] Feb 15 17:29:57 EDT 2024 Body weight 290.00 [lb_av] [facility] Feb 15 13:17 :59 EDT 2024 Systolic Blood Pressure 149.00 mm[Hg] [facility] Feb 15 10:46:48 EDT 2024 Diastolic Blood Pressure 78.00 mm[Hg] [facility] Feb 15 10:46:48 EDT 2024 Pulse Oximetry 94.00 % [facility] Feb 15 10:46 :48 EDT 2024 Heart Rate 69.00 /min [facility] Feb 15 10:46 :48 EDT 2024 Body temperature 97.80 [degF] [facility] Feb 15 10:4 6:48 EDT 2024 Respiratory rate 18.00 /min [facility] Feb 15 10:4 6:48 EDT 2024 Systolic Blood Pressure 149.00 mm[Hg] [facility] Feb 15 09:25:24 EDT 2024 Diastolic Blood Pressure 78.00 mm[Hg] [facility] Feb 15 09:25:24 EDT 2024 Systolic Blood Pressure 149.00 mm[Hg] [facility] Feb 15 09:25:24 EDT 2024 Diastolic Blood Pressure 78.00 mm[Hg] [facility] Feb 15 09:25:24 EDT 2024 Systolic Blood Pressure 149.00 mm[Hg] [facility] Feb 15 09:25:24 EDT 2024 Diastolic Blood Pressure 78.00 mm[Hg] [facility] Feb 15 09:25:24 EDT 2024 Heart Rate 69.00 /min WedFeb 15 09:25 :24 EDT 2024 Systolic Blood Pressure 138.00 mm[Hg] WedFeb 14 22:55:56 EDT 2024 Diastolic Blood Pressure 68.00 mm[Hg] WedFeb 14 22:55:56 EDT 2024 Pulse Oximetry 94.00 % WedFeb 14 22:55 :56 EDT 2024 Heart Rate 57.00 /min WedFeb 14 22:55 :56 EDT 2024 Body temperature 98.20 [degF] WedFeb 14 22:5 5:56 EDT 2024 Respiratory rate 18.00 /min WedFeb 14 22:5 5:56 EDT 2024 Systolic Blood Pressure 148.00 mm[Hg] WedFeb 14 17:49:21 EDT 2024 Diastolic Blood Pressure 72.00 mm[Hg] WedFeb 14 17:49:21 EDT 2024 Body weight 289.90 [lb_av] WedFeb 14 14:31 :57 EDT 2024 Systolic Blood Pressure 152.00 mm[Hg] WedFeb 14 10:40:31 EDT 2024 Diastolic Blood Pressure 80.00 mm[Hg] WedFeb 14 10:40:31 EDT 2024 Pulse Oximetry 94.00 % WedFeb 14 10:40 :31 EDT 2024 Heart Rate 73.00 /min WedFeb 14 10:40 :31 EDT 2024 Body temperature 97.80 [degF] WedFeb 14 10:4 0:31 EDT 2024 Respiratory rate 18.00 /min WedFeb 14 10:4 0:31 EDT 2024 Systolic Blood Pressure 152.00 mm[Hg] WedFeb 14 09:34:03 EDT 2024 Diastolic Blood Pressure 80.00 mm[Hg] WedFeb 14 09:34:03 EDT 2024 Systolic Blood Pressure 152.00 mm[Hg] WedFeb 14 09:34:03 EDT 2024 Diastolic Blood Pressure 80.00 mm[Hg] WedFeb 14 09:34:03 EDT 2024 Systolic Blood Pressure 152.00 mm[Hg] WedFeb 14 09:34:03 EDT 2024 Diastolic Blood Pressure 80.00 mm[Hg] WedFeb 14 09:34:03 EDT 2024 Heart Rate 60.00 /min WedFeb 14 09:34 :03 EDT 2024 Systolic Blood Pressure 155.00 mm[Hg] WedFeb 13 23:56:09 EDT 2024 Diastolic Blood Pressure 80.00 mm[Hg] WedFeb 13 23:56:09 EDT 2024 Pulse Oximetry 96.00 % WedFeb 13 23:56 :09 EDT 2024 Heart Rate 64.00 /min WedFeb 13 23:56 :09 EDT 2024 Body temperature 98.70 [degF] WedFeb 13 23:5 6:09 EDT 2024 Respiratory rate 18.00 /min WedFeb 13 23:5 6:09 EDT 2024 Systolic Blood Pressure 156.00 mm[Hg] WedFeb 13 17:52:33 EDT 2024 Diastolic Blood Pressure 86.00 mm[Hg] WedFeb 13 17:52:33 EDT 2024 Body weight 290.00 [lb_av] WedFeb 13 11:01 :53 EDT 2024 Systolic Blood Pressure 151.00 mm[Hg] WedFeb 13 09:27:56 EDT 2024 Diastolic Blood Pressure 77.00 mm[Hg] WedFeb 13 09:27:56 EDT 2024 Systolic Blood Pressure 151.00 mm[Hg] WedFeb 13 09:27:56 EDT 2024 Diastolic Blood Pressure 77.00 mm[Hg] WedFeb 13 09:27:56 EDT 2024 Systolic Blood Pressure 151.00 mm[Hg] WedFeb 13 09:27:56 EDT 2024 Diastolic Blood Pressure 77.00 mm[Hg] WedFeb 13 09:27:56 EDT 2024 Systolic Blood Pressure 151.00 mm[Hg] WedFeb 13 09:27:56 EDT 2024 Diastolic Blood Pressure 77.00 mm[Hg] WedFeb 13 09:27:56 EDT 2024 Pulse Oximetry 95.00 % WedFeb 13 09:27 :56 EDT 2024 Heart Rate 59.00 /min WedFeb 13 09:27 :56 EDT 2024 Heart Rate 59.00 /min WedFeb 13 09:27 :56 EDT 2024 Body temperature 97.80 [degF] WedFeb 13 09:2 7:56 EDT 2024 Respiratory rate 18.00 /min WedFeb 13 09:2 7:56 EDT 2024 Systolic Blood Pressure 128.00 mm[Hg] WedFeb 13 00:20:14 EDT 2024 Diastolic Blood Pressure 54.00 mm[Hg] WedFeb 13 00:20:14 EDT 2024 Pulse Oximetry 96.00 % WedFeb 13 00:20 :14 EDT 2024 Heart Rate 88.00 /min WedFeb 13 00:20 :14 EDT 2024 Body temperature 97.20 [degF] WedFeb 13 00:2 0:14 EDT 2024 Respiratory rate 18.00 /min WedFeb 13 00:2 0:14 EDT 2024 Systolic Blood Pressure 174.00 mm[Hg] WedFeb 12 18:03:16 EDT 2024 Diastolic Blood Pressure 86.00 mm[Hg] WedFeb 12 18:03:16 EDT 2024 Body Height 68.00 [in_i] WedFeb 12 12:37 :37 EDT 2024 Body weight 290.20 [lb_av] WedFeb 12 12:22 :09 EDT 2024 Systolic Blood Pressure 158.00 mm[Hg] WedFeb 12 10:45:41 EDT 2024 Diastolic Blood Pressure 78.00 mm[Hg] WedFeb 12 10:45:41 EDT 2024 Systolic Blood Pressure 158.00 mm[Hg] WedFeb 12 10:45:41 EDT 2024 Diastolic Blood Pressure 78.00 mm[Hg] WedFeb 12 10:45:41 EDT 2024 Systolic Blood Pressure 158.00 mm[Hg] WedFeb 12 10:45:41 EDT 2024 Diastolic Blood Pressure 78.00 mm[Hg] WedFeb 12 10:45:41 EDT 2024 Systolic Blood Pressure 158.00 mm[Hg] WedFeb 12 10:45:41 EDT 2024 Diastolic Blood Pressure 78.00 mm[Hg] WedFeb 12 10:45:41 EDT 2024 Pulse Oximetry 95.00 % WedFeb 12 10:45 :41 EDT 2024 Heart Rate 64.00 /min WedFeb 12 10:45 :41 EDT 2024 Heart Rate 64.00 /min WedFeb 12 10:45 :41 EDT 2024 Body temperature 98.10 [degF] WedFeb 12 10:4 5:41 EDT 2024 Respiratory rate 18.00 /min WedFeb 12 10:4 5:41 EDT 2024 Systolic Blood Pressure 159.00 mm[Hg] Wed Mar 23 22:52:16 EDT 2024 Diastolic Blood Pressure 81.00 mm[Hg] Wed Mar 23 22:52:16 EDT 2024 Pulse Oximetry 95.00 % WedFeb 11 22:52 :16 EDT 2024 Heart Rate 65.00 /min WedFeb 11 22:52 :16 EDT 2024 Body temperature 98.10 [degF] WedFeb 11 22:5 2:16 EDT 2024 Respiratory rate 20.00 /min WedFeb 11 22:5 2:16 EDT 2024 Systolic Blood Pressure 181.00 mm[Hg] Wed Mar 23 18:52:14 EDT 2024 Diastolic Blood Pressure 79.00 mm[Hg] Wed Mar 18:52:14 EDT 2024 Systolic Blood Pressure 175.00 mm[Hg] WedFeb 11 13:44:05 EDT 2024 Diastolic Blood Pressure 78.00 mm[Hg] WedFeb 11 13:44:05 EDT 2024 Systolic Blood Pressure 175.00 mm[Hg] WedFeb 11 13:44:05 EDT 2024 Diastolic Blood Pressure 78.00 mm[Hg] Wed Mar 13:44:05 EDT 2024 Systolic Blood Pressure 175.00 mm[Hg] Wed Mar 23 13:44:05 EDT 2024 Diastolic Blood Pressure 78.00 mm[Hg] Wed Mar 23 13:44:05 EDT 2024 Systolic Blood Pressure 175.00 mm[Hg] Wed Mar 23 13:44:05 EDT 2024 Diastolic Blood Pressure 78.00 mm[Hg] Wed Mar 23 13:44:05 EDT 2024 Pulse Oximetry 97.00 % Wed 23 13:44 :05 EDT 2024 Heart Rate 62.00 /min Wed 23 13:44 :05 EDT 2024 Body temperature 98.00 [degF] Wed 23 13:4 4:05 EDT 2025 Respiratory rate 22.00 /min Sun Mar 23 13:4 4:05 EDT 2024 Body weight 292.80 [lb_av] Sun Mar 23 13:44 :05 EDT 2024 Heart Rate 62.00 /min Sun Mar 23 13:44 :05 EDT 2024 Systolic Blood Pressure 157.00 mm[Hg] Sat Mar 22 20:29:38 EDT 2024 Diastolic Blood Pressure 78.00 mm[Hg] Sat Mar 22 20:29:38 EDT 2024 Pulse Oximetry 94.00 % Sat Mar 22 20:29 :38 EDT 2024 Heart Rate 65.00 /min Sat Mar 22 20:29 :38 EDT 2024 Body temperature 981.00 [degF] Sat Mar 22 20:2 9:38 EDT 2024 Respiratory rate 18.00 /min Sat Mar 22 20:2 9:38 EDT 2024 Systolic Blood Pressure 149.00 mm[Hg] Sat Mar 22 17:47:49 EDT 2024 Diastolic Blood Pressure 74.00 mm[Hg] Sat Mar 22 17:47:49 EDT 2024 Systolic Blood Pressure 142.00 mm[Hg] Sat Mar 22 10:34:09 EDT 2024 Diastolic Blood Pressure 81.00 mm[Hg] Sat Mar 22 10:34:09 EDT 2024 Pulse Oximetry 98.00 % Sat Mar 22 10:34 :09 EDT 2024 Body weight 291.60 [lb_av] [facility] Mar 22 10:34 :09 EDT 2024 Heart Rate 64.00 /min Sat Mar 22 10:34 :09 EDT 2024 Body temperature 97.50 [degF] Sat Mar 22 10:3 4:09 EDT 2024 Respiratory rate 20.00 /min Sat Mar 22 10:3 4:09 EDT 2024 Systolic Blood Pressure 142.00 mm[Hg] Sat Mar 22 09:28:28 EDT 2024 Diastolic Blood Pressure 81.00 mm[Hg] Sat Mar 22 09:28:28 EDT 2024 Systolic Blood Pressure 142.00 mm[Hg] Sat Mar 22 09:28:28 EDT 2024 Diastolic Blood Pressure 81.00 mm[Hg] Sat Mar 22 09:28:28 EDT 2024 Heart Rate 64.00 /min Sat Mar 22 09:28 :28 EDT 2024 Systolic Blood Pressure 152.00 mm[Hg] Sat Mar 22 01:56:21 EDT 2024 Diastolic Blood Pressure 75.00 mm[Hg] [facility] Jan 22 01:56:21 EDT 2024 Pulse Oximetry 95.00 % [facility] Feb 10 01:56 :21 EDT 2024 Heart Rate 76.00 /min [facility] Feb 10 01:56 :21 EDT 2024 Body temperature 97.90 [degF] [facility] Feb 10 01:5 6:21 EDT 2024 Respiratory rate 20.00 /min [facility] Feb 10 01:5 6:21 EDT 5 Systolic Blood Pressure 166.00 mm[Hg] WedFeb 09 17:51:21 EDT 2024 Diastolic Blood Pressure 85.00 mm[Hg] WedFeb 09 17:51:21 EDT 2024 Body weight 293.60 [lb_av] WedFeb 09 13:49 :18 EDT 2024 Systolic Blood Pressure 145.00 mm[Hg] WedFeb 09 08:55:54 EDT 2024 Diastolic Blood Pressure 81.00 mm[Hg] WedFeb 09 08:55:54 EDT 2024 Systolic Blood Pressure 145.00 mm[Hg] WedFeb 09 08:55:54 EDT 2024 Diastolic Blood Pressure 81.00 mm[Hg] WedFeb 09 08:55:54 EDT 2024 Systolic Blood Pressure 145.00 mm[Hg] WedFeb 09 08:55:54 EDT 2024 Diastolic Blood Pressure 81.00 mm[Hg] WedFeb 09 08:55:54 EDT 2024 Systolic Blood Pressure 145.00 mm[Hg] WedFeb 09 08:55:54 EDT 2024 Diastolic Blood Pressure 81.00 mm[Hg] WedFeb 09 08:55:54 EDT 2024 Pulse Oximetry 98.00 % WedFeb 09 08:55 :54 EDT 2024 Heart Rate 66.00 /min WedFeb 09 08:55 :54 EDT 2024 Heart Rate 66.00 /min WedFeb 09 08:55 :54 EDT 2024 Body temperature 97.30 [degF] WedFeb 09 08:5 5:54 EDT 2024 Respiratory rate 20.00 /min WedFeb 09 08:5 5:54 EDT 2024 Systolic Blood Pressure 157.00 mm[Hg] [facility] Feb 08 22:03:02 EDT 2024 Diastolic Blood Pressure 81.00 mm[Hg] [facility] Feb 08 22:03:02 EDT 2024 Pulse Oximetry 98.00 % Eleonorajan 20 22:03 :02 EDT 2024 Heart Rate 65.00 /min [facility]orajan 20 22:03 :02 EDT 2024 Body temperature 97.90 [degF] [facility] Jan 20 22:0 3:02 EDT 2024 Respiratory rate 18.00 /min [facility] Jan 20 22:0 3:02 EDT 2024 Systolic Blood Pressure 146.00 mm[Hg] Eleonorajan 20 17:52:16 EDT 2024 Diastolic Blood Pressure 80.00 mm[Hg] [facility] Jan 20 17:52:16 EDT 2024 Body weight 289.40 [lb_av] [facility] Jan 20 10:11 :44 EDT 2024 Systolic Blood Pressure 150.00 mm[Hg] Eleonorajan 20 10:10:16 EDT 2024 Diastolic Blood Pressure 81.00 mm[Hg] [facility] Jan 20 10:10:16 EDT 2024 Pulse Oximetry 95.00 % Eleonorajan 20 10:10 :16 EDT 2024 Heart Rate 63.00 /min [facility] Jan 20 10:10 :16 EDT 2024 Body temperature 97.70 [degF] [facility] Jan 20 10:1 0:16 EDT 2024 Respiratory rate 18.00 /min [facility] Jan 20 10:1 0:16 EDT 2024 Systolic Blood Pressure 150.00 mm[Hg] Eleonorajan 20 09:30:21 EDT 2024 Diastolic Blood Pressure 81.00 mm[Hg] Eleonora Jan 20 09:30:21 EDT 2024 Systolic Blood Pressure 150.00 mm[Hg] Eleonorajan 20 09:30:21 EDT 2024 Diastolic Blood Pressure 81.00 mm[Hg] Eleonora Jan 20 09:30:21 EDT 2024 Systolic Blood Pressure 150.00 mm[Hg] Eleonora Jan 20 09:30:21 EDT 2024 Diastolic Blood Pressure 81.00 mm[Hg] Eleonora Jan 20 09:30:21 EDT 2024 Heart Rate 63.00 /min Eleonora Jan 20 09:30 :21 EDT 2024 Systolic Blood Pressure 165.00 mm[Hg] Wed 19 23:48:43 EDT 2024 Diastolic Blood Pressure 80.00 mm[Hg] Wed 19 23:48:43 EDT 2024 Pulse Oximetry 99.00 % Wed 19 23:48 :43 EDT 2024 Heart Rate 67.00 /min Wed 19 23:48 :43 EDT 2024 Body temperature 98.20 [degF] Wed 19 23:4 8:43 EDT 2024 Respiratory rate 20.00 /min WedFeb 07 23:4 8:43 EDT 2024 Systolic Blood Pressure 153.00 mm[Hg] Wed 19 18:55:54 EDT 2024 Diastolic Blood Pressure 77.00 mm[Hg] Wed 19 18:55:54 EDT 2024 Systolic Blood Pressure 146.00 mm[Hg] Wed 19 09:04:06 EDT 2024 Diastolic Blood Pressure 83.00 mm[Hg] Wed 19 09:04:06 EDT 2024 Systolic Blood Pressure 146.00 mm[Hg] WedFeb 07 09:04:06 EDT 2024 Diastolic Blood Pressure 83.00 mm[Hg] WedFeb 07 09:04:06 EDT 2024 Systolic Blood Pressure 146.00 mm[Hg] WedFeb 07 09:04:06 EDT 2024 Diastolic Blood Pressure 83.00 mm[Hg] WedFeb 07 09:04:06 EDT 2024 Pulse Oximetry 97.00 % WedFeb 07 09:04 :06 EDT 2024 Body weight 290.00 [lb_av] WedFeb 07 09:04 :06 EDT 2024 Heart Rate 71.00 /min WedFeb 07 09:04 :06 EDT 2024 Body temperature 97.90 [degF] WedFeb 07 09:0 4:06 EDT 2024 Respiratory rate 18.00 /min WedFeb 07 09:0 4:06 EDT 2024 Systolic Blood Pressure 138.00 mm[Hg] WedFeb 07 00:19:47 EDT 2024 Diastolic Blood Pressure 74.00 mm[Hg] WedFeb 07 00:19:47 EDT 2024 Pulse Oximetry 97.00 % WedFeb 07 00:19 :47 EDT 2024 Heart Rate 71.00 /min WedFeb 07 00:19 :47 EDT 2024 Body temperature 98.10 [degF] WedFeb 07 00:1 9:47 EDT 2024 Respiratory rate 20.00 /min WedFeb 07 00:1 9:47 EDT 2024 Systolic Blood Pressure 154.00 mm[Hg] Wed 18 18:52:00 EDT 2024 Diastolic Blood Pressure 70.00 mm[Hg] WedFeb 06 18:52:00 EDT 2024 Pulse Oximetry 97.00 % WedFeb 06 18:52 :00 EDT 2024 Heart Rate 62.00 /min WedFeb 06 18:52 :00 EDT 2024 Body temperature 97.30 [degF] WedFeb 06 18:5 2:00 EDT 2024 Respiratory rate 18.00 /min WedFeb 06 18:5 2:00 EDT 2024 Systolic Blood Pressure 154.00 mm[Hg] WedFeb 06 18:20:58 EDT 2024 Diastolic Blood Pressure 70.00 mm[Hg] WedFeb 06 18:20:58 EDT 2024 Reason for Referral
--- OUTSIDE RECORDS SUMMARY | 2025-05-23 13:19 | XMS_ITS | Clinical Summary ---
Author Organization [facility] Address [facility] [place] [address] Care Team Providers Care Cable Operator Name Role Phone Rachelle Freitas Primary Care Provider [phone] Allergies No known active allergies Medications doxazosin (CARDURA) 8 mg tablet Take 1 tablet (8 mg total) by mouth daily 1 Active metoprolol XL (TOPROL-XL) 25 mg extended release tablet Take 1 tablet (25 mg total) by mouth daily 1 Active triamcinolone (KENALOG) 0.1 % cream 1 Active metFORMIN XR (GLUCOPHAGE XR) 500 mg 24 hr tablet Take 1 tablet (500 mg total) by mouth nightly 1 Active lisinopril-hydr oCHLOROthiazide (ZESTORETIC) 20-25 mg per tablet Take 1 tablet by mouth daily 1 Active fenofibrate micronized (LOFIBRA) 134 mg capsule Take 1 capsule (134 mg total) by mouth daily 1 Active aspirin 81 mg enteric coated tablet Take 1 tablet (81 mg total) by mouth daily Active Xarelto 20 mg tablet 1 Active gabapentin (NEURONTIN) 300 mg capsule TAKE 1 CAPSULE BY MOUTH THREE TIMES DAILY 90 capsule 3 Active cloNIDine (CATAPRES-TTS) 0.1 mg/[address] 0.1 mg on the skin once a week 5 Active amLODIPine (NORVASC) 10 mg tablet Take 1 tablet (10 mg total) by mouth daily 5 Active ferrous sulfate ER 324 mg (65 mg iron) EC tablet Take 1 tablet (324 mg total) by mouth 2 (two) times a day Active finasteride (PROSCAR) 5 mg tablet Take 1 tablet (5 mg total) by mouth daily [address] (PROTONIX) 40 mg EC tablet Take 1 tablet (40 mg total) by mouth daily 5 Active levothyroxine (SYNTHROID) 25 mcg tablet Take 1 tablet (25 mcg total) by mouth press officer before breakfast 5 Active simvastatin (ZOCOR) 10 mg tablet Take 1 tablet (10 mg total) by mouth nightly 5 Active Active Problems Problem Noted Date Diagnosed [...] right great saphenous vein. Continue compression therapy Encounters Date Type Department Care Team Description 05/23/2025 12:30 PM CDT Office Visit [facility] Medical [facility] at [address] [phone] Robyn Dunn PA Cellulitis of left lower extremity (Primary Dx) 04/25/2025 2:24 PM CDT - 04/25/2025 11:59 PM CDT Hospital Encounter [facility] Cardiac Diagnostic Lab [address] [place] [phone] Krysta Arora MD Aneurysm of the ascending aorta, without rupture Discharge Disposition: Discharge to home or self care 04/25/2025 1:15 PM CDT - 04/25/2025 11:59 PM CDT Hospital Encounter [facility] [address] [place] [id number] Krysta Arora MD Aneurysm of the ascending aorta, without rupture Discharge Disposition: Discharge to home or self care 04/11/2025 Orders Only [facility] Cardiothoracic Surgery [address] [place] [address] Advanced Medicine 8th Floor [address] Room [address] [place] [phone] Krysta Arora MD Aneurysm of the ascending aorta, without rupture (Primary Dx) 03/08/2025 11:30 AM CDT Office Visit [facility] Cardiothoracic Surgery [address] [place] [address] Advanced Medicine 8th Floor [address] Room [address] [place] [phone] Krysta Arora MD Aneurysm of the ascending aorta, without rupture 03/06/2025 2:10 AM CDT - 03/06/2025 11:59 PM CDT Hospital Encounter [facility]) [address] [place] [id number] Discharge Disposition: Discharge to home or self care 03/02/2025 5:06 PM CDT - 03/02/2025 11:59 PM CDT Hospital Encounter [facility]) [address] [place] [address] Discharge Disposition: Discharge to home or self care 03/02/2025 5:05 PM CDT - 03/02/2025 11:59 PM CDT Hospital Encounter [facility] ([facility]) [address] [place] [address] Discharge Disposition: Discharge to home or self care from Last 3 Months Immunizations Immunization Administration Dates Next Due Influenza, [...] Date Smoking Tobacco: Never Smokeless Tobacco: Never Sex and Gender Information Value Date Recorded Sex Assigned at Not on file 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 Gender Identity Not on file Sexual Orientation Not on file Obstetrics History Last Filed Vital Signs Vital Sign Reading Time Taken Comments Blood Pressure 153/86 05/23/2025 12:30 PM CDT Pulse 82 05/23/2025 12:30 PM CDT Temperature 36.9 C (98.5 F) 05/23/2025 12:30 PM CDT Respiratory Rate 20 05/23/2025 12:30 PM CDT Oxygen Saturation 95% 05/23/2025 12:30 PM CDT Inhaled Oxygen Concentration - - Weight 128 kg (282 lb 1.6 oz) 05/23/2025 12:30 P M CDT Height 167.6 cm (5' 6) 03/08/2025 11:33 AM CDT Body Mass Index 45.53 03/08/2025 11:33 AM CDT Plan of Treatment Health Maintenance Due Date Last Done Comments Depression Screening 1945 DTaP/Tdap/Td Vaccine (1 - Tdap) 1955 Hepatitis B Screening 1962 Zoster Vaccine (1 of 2) 1994 Well Visit 65+ 2009 Pneumococcal vaccine 65+ (2 of 2 - PPSV23) 09/11/2021 09/11/2020 Fall Risk Assessment 11/25/2022 11/25/2021 Covid-19 Vaccine (3 - 2023-2 5 season) 2024 02/10/2021, 12/19/2020 Influenza Vaccine (#1) 2025 0, 08/19/2019, 09/02/2018, Additional history exists Procedures Procedure Name Priority Date/Time Associated Diagnosis Comments TRANSTHORACIC ECHO (TTE) COMPLETE W DOPPLER/CF W CONTRAST Routine 04/25/2025 4:29 PM CDT Aneurysm of the ascending aorta, without rupture CTA CHEST ABDOMEN PELVIS Schedule Routine, Read Routine (OP Routine) 04/25/2025 2:05 PM CDT Aneurysm of the ascending aorta, without rupture CT BODY OUTSIDE REFERENCE Routine 03/06/2025 2:10 AM CDT XR TRANSFER OF OUTSIDE FILMS Routine 03/02/2025 5:06 PM CDT XR TRANSFER OF OUTSIDE FILMS Routine 03/02/2025 5:05 PM CDT from Last 3 Months Results * TRANSTHORACIC ECHO (TTE) COMPLETE W DOPPLER/CF W CONTRAST (04/25/2025 4:29 PM CDT) EF Mod BP 58 % CONS SCIMAGE Anatomical Region Laterality Modality Ultrasound 04/25/2025 2:48 PM CDT Narrative 04/25/2025 5:27 PM CDT [facility] [place] [place] [address] [place] [address] Transthoracic Echocardiographic Report Patient Name: SHERICE ARMAS H : 1945 (80y 1m) Gender: M Study Date: 04/25/2025 02:48:03 PM Ht(Inch): 66 Wt(Lb): 287.92 BSA: 2.47 Senior Systems Programmer: Cheryle Oseguera MARKO Location: [facility] Order Provider: KRYSTA ARORA Heart Rate: 65 BMI: 46.47 BP: 147 / 84 Ref Provider: KRYSTA ARORA PROCEDURES: Echocardiographic Report: Transthoracic complete echo with strain imaging and contrast, 2D, spectral and tissue Doppler, color flow Doppler, M-mode. Contrast: Contrast Enhancement was Employed: After initial imaging due to sub- optimal quality related to co-morbidity defined by patient's body habitus, due to suboptimal image quality with inadequate visualization of at least 2 of 16 LV wall segments in any view after initial imaging. Perflutren contrast was administered using the volume necessary to obtain adequate images and. 0.23 ml Definity Administered, (1.27 ml wasted). INDICATIONS: I71.21 Aneurysm of the ascending aorta, without rupture. CONCLUSIONS: 1. Normal left ventricular size based on volume index. Concentric LV hypertrophy. Normal left ventricular systolic function. The Ejection Fraction (Chicas's) is measured at 58 %. Grade II diastolic dysfunction (elevated mean LA pressure). 2. Normal right ventricular size. Normal right ventricular systolic function. ATTESTATION: I have personally reviewed and interpreted this study without fellow or resident. - DISCLAIMER: The study images and the final report will be retained in the patient chart by the Echo Laboratory for the legally required time period. This chart constitutes the legal record of any testing performed. FINDINGS: Left Ventricle: Normal left ventricular size based on volume index. Concentric LV hypertrophy. Normal left ventricular systolic function. The Ejection Fraction (Chicas's) is measured at 58 %. Grade II diastolic dysfunction (elevated mean LA pressure). LV Myocardial Strain data was not obtained. Right Ventricle: Normal right ventricular size. Normal right ventricular systolic function. Left Atrium: Moderately dilated left atrium. Right Atrium: The right atrium is normal in size. Mitral Valve: Normal Mitral Valve Structure. Mild mitral annular calcification. Mild mitral valve regurgitation. The mitral valve area by pressure half-time is 2.7 cm2. Aortic Valve: Normal trileaflet aortic valve. Moderately thickened aortic valve leaflets. Mildly restricted aortic cusps. Mild aortic valve regurgitation. Mild aortic valve stenosis. The mean transaortic gradient is 10 mmHg. The aortic valve area by the continuity equation (using VTI) is 1.92 cm2. Aortic valve dimensionless index is 0.54. Tricuspid Valve: Normal tricuspid valve structure. No tricuspid regurgitation. No tricuspid valve stenosis. Pulmonic Valve: Normal pulmonic valve structure. No pulmonic regurgitation. No pulmonic valve stenosis present. Pericardium: Normal pericardium without pericardial effusion. Aorta: Mild aortic root dilation at sinuses of Valsalva. Normal aortic root size when indexed. PASP: Normal estimated pulmonary artery systolic pressure. Rhythm: Normal Sinus rhythm was seen during the study. MEASUREMENTS: 2D/MM Value Range Doppler Value Range LVIDd 2D 5.28 cm [ 4.20 - 5.80 ] AV Peak Mark 2.0 m/s [ 1.0 - 1.7 ] LVIDs 2D 3.71 cm [ 2.50 - 4.00 ] AV Peak PG 16.00 mmHg IVSd 2D 1.45 cm [ 0.60 - 1.00 ] AV Mean PG 10 mmHg LVPWd 2D 1.46 cm [ 0.60 - 1.00 ] AV VTI 47.3 cm LV Thickness Ratio 1.0 LVOT Peak Mark 1.1 m/s [ 0.7 - 1.1 ] LV FS 2D 29.74 % [ 25.00 - 43.00 ] LVOT Peak PG 4.84 mmHg LV Mass 2D 339.90 g LVOT Mean PG 3 mmHg LV Mass Index 2D 137.61 g/m2 LVOT VTI 25.5 cm RWT 0.55 LVOT Diam 2.13 cm EDV Mod BP 164.39 ml [ 62.00 - 150.00 ] CLARENCE VTI 1.92 cm2 LV EDV Index 66.55 ml/m2 LVOT/AV VTI 0.54 - Dimensionless index (DVI) ESV Mod BP 69.69 ml [ 21.00 - 61.00 ] AI Peak Mark 3.6 m/s EF Mod BP 58 % [ 52 - 72 ] AI Peak PG 52 mmHg LA Length 4C 6.50 cm AI Decel Time 2256.71 sec LA Length 2C 6.67 cm AI Decel [place] 1.60 m/s2 LA Volume BP 108.13 ml AI PHT 654.45 msec LA Volume Index 43.78 ml/m2 [ 16.00 - 34.00 ] MV E Peak Mark 0.7 m/s [ 0.6 - 1.3 ] MV Annulus 2D 3.18 cm MV A Peak Mark 0.9 m/s [ 1.0 - 1.2 ] RV Base Dimen 2D 2.9 cm [ 2.5 - 4.2 ] MV E/A 0.8 ratio [ 0.8 - 1.5 ] TAPSE 1.94 cm [ 1.71 - 5.00 ] MV Peak Mark 1.0 m/s RA Volume 48.73 ml MV Peak PG 4.00 mmHg RA Volume Index 19.73 ml/m2 MV Mean PG 2 mmHg AoR Diam 2D 4.12 cm [ 3.10 - 3.70 ] MV VTI 37.0 cm Ao Root Index 1.67 cm/m2 [ 1.00 - 2.00 ] MV PHT 80.59 msec [ 20.00 - 100.00 ] Asc Ao Diam 2D 4.38 cm MVA PHT 2.73 cm2 Asc Ao Index 1.77 cm/m2 MV Decel Time 158.81 msec [ 104.00 - 258.00 ] Med E` Mark 4.9 cm/sec [ 8.0 - 25.0 ] Lat E` Mark 6.6 cm/sec [ 10.0 - 25.0 ] Average E/E` 12.17 MR Peak Mark 5.5 m/s MR Peak PG 121.00 mmHg MV Alias Mark 0 m/s MR VTI 203.1 cm MR Flow 0.00 ml/sec MR PISA 0.8 MR EROA 0.2 cm2 PISA Regurgitant Volume 40.6 ml RV S` 14.12 cm/sec PV Peak Mark 0.9 m/s [ 0.4 - 0.8 ] PV Peak PG 3.24 mmHg Electronically Signed By: Kd Cisneros MD 04/25/2025 5:26:24 PM CDT Procedure Note Kd Cisneros MD - 04/25/2025 [facility] Card[facility] [place] [address] [place] [address] Transthoracic Echocardiographic Report Patient Name: SHERICE ARMAS H : 1945 (80y 1m) Gender: M Study Date: 04/25/2025 02:48:03 PM Ht(Inch): 66 Wt(Lb): 287.92 BSA: 2.47 Senior Systems Programmer: Cheryle Oseguera RDCS Location: [facility] Order Provider:KRYSTA ARORA Heart Rate: 65 BMI: 46.47 BP: 147 / 84 Ref Provider: KRYSTA ARORA PROCEDURES: Echocardiographic Report: Transthoracic complete echo with strain imagingand contrast, 2D, spectral and tissue Doppler, color flow Doppler, M-mode. Contrast: Contrast Enhancement was Employed: After initial imaging due tosub- optimal quality related to co-morbidity defined by patient's body habitus, due tosuboptimal image quality with inadequate visualization of at least 2 of 16 LV wallsegments in any view after initial imaging. Perflutren contrast was administered using thevolume necessary to obtain adequate images and. 0.23 ml Definity Administered,(1.27 ml wasted). INDICATIONS: I71.21 Aneurysm of the ascending aorta, without rupture. CONCLUSIONS: 1. Normal left ventricular size based on volume index. Concentric LVhypertrophy. Normal left ventricular systolic function. The Ejection Fraction (Chicas's) ismeasured at 58 %. Grade II diastolic dysfunction (elevated mean LA pressure). 2. Normal right ventricular size. Normal right ventricular systolicfunction. ATTESTATION: I have personally reviewed and interpreted this study without fellow orresident. - DISCLAIMER: The study images and the final report will be retained in the patientchart by the Echo Laboratory for the legally required time period. This chart constitutesthe legal record of any testing performed. FINDINGS: Left Ventricle: Normal left ventricular size based on volume index.Concentric LV hypertrophy. Normal left ventricular systolic function. The EjectionFraction (Chicas's) is measured at 58 %. Grade II diastolic dysfunction (elevated mean LApressure). LV Myocardial Strain data was not obtained. Right Ventricle: Normal right ventricular size. Normal right ventricularsystolic function. Left Atrium: Moderately dilated left atrium. Right Atrium: The right atrium is normal in size. Mitral Valve: Normal Mitral Valve Structure. Mild mitral annularcalcification. Mild mitral valve regurgitation. The mitral valve area by pressure half-time is2.7 cm2. Aortic Valve: Normal trileaflet aortic valve. Moderately thickened aorticvalve leaflets. Mildly restricted aortic cusps. Mild aortic valve regurgitation. Mildaortic valve stenosis. The mean transaortic gradient is 10 mmHg. The aortic valve areaby the continuity equation (using VTI) is 1.92 cm2. Aortic valve dimensionlessindex is 0.54. Tricuspid Valve: Normal tricuspid valve structure. No tricuspidregurgitation. No tricuspid valve stenosis. Pulmonic Valve: Normal pulmonic valve structure. No pulmonicregurgitation. No pulmonic valve stenosis present. Pericardium: Normal pericardium without pericardial effusion. Aorta: Mild aortic root dilation at sinuses of Valsalva. Normal aorticroot size when indexed. PASP: Normal estimated pulmonary artery systolic pressure. Rhythm: Normal Sinus rhythm was seen during the study. MEASUREMENTS: 2D/MM Value Range DopplerValue Range LVIDd 2D 5.28 cm [ 4.20 - 5.80 ] AV Peak Vel2.0 m/s [ 1.0 - 1.7 ] LVIDs 2D 3.71 cm [ 2.50 - 4.00 ] AV Peak PG16.00 mmHg IVSd 2D 1.45 cm [ 0.60 - 1.00 ] AV Mean PG10 mmHg LVPWd 2D 1.46 cm [ 0.60 - 1.00 ] AV VTI47.3 cm LV Thickness Ratio 1.0 LVOT Peak Vel1.1 m/s [ 0.7 - 1.1 ] LV FS 2D 29.74 % [ 25.00 - 43.00 ] LVOT Peak PG4.84 mmHg LV Mass 2D 339.90 g LVOT Mean PG3 mmHg LV Mass Index 2D 137.61 g/m2 LVOT VTI25.5 cm RWT 0.55 LVOT Diam2.13 cm EDV Mod BP 164.39 ml [ 62.00 - 150.00 ] CLARENCE VTI1.92 cm2 LV EDV Index 66.55 ml/m2 LVOT/AV VTI0.54 - Dimensionless index (DVI) ESV Mod BP 69.69 ml [ 21.00 - 61.00 ] AI Peak Vel3.6 m/s EF Mod BP 58 % [ 52 - 72 ] AI Peak PG52 mmHg LA Length 4C 6.50 cm AI Decel [id number] sec LA Length 2C 6.67 cm AI Decel Slope1.60 m/s2 LA Volume BP 108.13 ml AI GMZ127.45 msec LA Volume Index 43.78 ml/m2 [ 16.00 - 34.00 ] MV E Peak Vel0.7 m/s [ 0.6 - 1.3 ] MV Annulus 2D 3.18 cm MV A Peak Vel0.9 m/s [ 1.0 - 1.2 ] RV Base Dimen 2D 2.9 cm [ 2.5 - 4.2 ] MV E/A0.8 ratio [ 0.8 - 1.5 ] TAPSE 1.94 cm [ 1.71 - 5.00 ] MV Peak Vel1.0 m/s RA Volume 48.73 ml MV Peak PG4.00 mmHg RA Volume Index 19.73 ml/m2 MV Mean PG2 mmHg AoR Diam 2D 4.12 cm [ 3.10 - 3.70 ] MV VTI37.0 cm Ao Root Index 1.67 cm/m2 [ 1.00 - 2.00 ] MV PHT80.59 msec [ 20.00 - 100.00 ] Asc Ao Diam 2D 4.38 cm MVA PHT2.73 cm2 Asc Ao Index 1.77 cm/m2 MV Decel Prtb289.81 msec [ 104.00 - 258.00 ] Med E` Mark 4.9 cm/sec [ 8.0 -25.0 ] Lat E` Mark 6.6 cm/sec [ 10.0 -25.0 ] Average E/E` 12.17 MR Peak Mark 5.5 m/s MR Peak PG 121.00 mmHg MV Alias Mark 0 m/s MR VTI 203.1 cm MR Flow 0.00 ml/sec MR PISA 0.8 MR EROA 0.2 cm2 PISA Regurgitant Volume 40.6 ml RV S` 14.12 cm/sec PV Peak Mark 0.9 m/s [ 0.4 - 0.8] PV Peak PG 3.24 mmHg Electronically Signed By: Kd Cisneros MD 04/25/2025 5:26:24 PM CDT us Krysta Arora MD CV ECHO PROCEDURES Final Resu lt * CTA Chest Abdomen Pelvis (04/25/2025 2:05 PM CDT) Anatomical Region Laterality Modality Body N/A Computed Tomogra phy 04/25/2025 7:30 PM CDT Impressions 04/25/2025 7:30 PM CDT 1. Ascending aortic aneurysm measuring up to 5.1 cm. Electronically signed by: Esteban Hall M.D. Narrative 04/25/2025 7:30 PM CDT Examination: Computed tomography of the chest, abdomen, and pelvis with intravenous contrast DATE: 04/25/2025. HISTORY: Ascending aortic aneurysm. TECHNIQUE: Computed tomography of the chest, abdomen, and pelvis was obtained after the uneventful administration of 118 mL of Optiray 350 according to standard protocol. FINDINGS: The aorta measures 3.6 x 3.4 x 3.9 cm at the level of the sinuses of Valsalva. Aorta measures 3.9 x 3.6 at the sinotubular junction. Maximum ascending aorta is 4.9 x 5.1 cm at the level of the pulmonary artery bifurcation. Great vessels are normal. There is a prominent ductus bump/diverticulum along the proximal descending aorta. Descending aorta is otherwise normal. There are tortuous iliac arteries. No dissection, intramural hematoma, or other acute aortic pathology. No supraclavicular, axillary, mediastinal, or hilar lymphadenopathy. Heart size is normal, no pericardial effusion. There is mild coronary calcifications. Some lymph nodes adjacent to the mid to distal aorta are mildly enlarged, up to 12 mm in short axis, but unchanged. No consolidation, effusion, or pneumothorax. No suspicious pulmonary nodules or masses. Liver is normal. Spleen is normal. Pancreas is normal. Perihepatic free fluid seen on the prior exam has resolved. No adrenal lesions. No suspicious renal lesions or hydronephrosis. Small retroperitoneal nodes are unchanged from the prior. The prostate is at least mildly enlarged. The bowel is normal in caliber without evidence of any focal wall thickening or obstruction. The appendix is well seen and is normal. No omental or mesenteric lesions. Bone windows demonstrate no lytic or blastic lesions. Procedure Note Esteban Hall MD - 04/25/2025 Examination: Computed tomography of the chest, abdomen, and pelvis with intravenous contrast DATE: 04/25/2025. HISTORY: Ascending aortic aneurysm. TECHNIQUE: Computed tomography of the chest, abdomen, and pelvis was obtained after the uneventful administration of 118 mL of Optiray 350 according to standard protocol. FINDINGS: The aorta measures 3.6 x 3.4 x 3.9 cm at the level of the sinuses of Valsalva. Aorta measures 3.9 x 3.6 at the sinotubular junction. Maximum ascending aorta is 4.9 x 5.1 cm at the level of the pulmonary artery bifurcation. Great vessels are normal. There is a prominent ductus bump/diverticulum along the proximal descending aorta. Descending aorta is otherwise normal. There are tortuous iliac arteries. No dissection, intramural hematoma, or other acute aortic pathology. No supraclavicular, axillary, mediastinal, or hilar lymphadenopathy. Heart size is normal, no pericardial effusion. There is mild coronary calcifications. Some lymph nodes adjacent to the mid to distal aorta are mildly enlarged, up to 12 mm in short axis, but unchanged. No consolidation, effusion, or pneumothorax. No suspicious pulmonary nodules or masses. Liver is normal. Spleen is normal. Pancreas is normal. Perihepatic free fluid seen on the prior exam has resolved. No adrenal lesions. No suspicious renal lesions or hydronephrosis. Small retroperitoneal nodes are unchanged from the prior. The prostate is at least mildly enlarged. The bowel is normal in caliber without evidence of any focal wall thickening or obstruction. The appendix is well seen and is normal. No omental or mesenteric lesions. Bone windows demonstrate no lytic or blastic lesions. IMPRESSION: 1. Ascending aortic aneurysm measuring up to 5.1 cm. Electronically signed by: Esteban Hall M.D. us Krysta Arora MD [facility] CT PROCEDURES Final Resul t * CT Body Outside Reference (03/06/2025 2:10 AM CDT) Impressions [email or web address] - 03/06/2025 2:10 AM CDT These images are for Reference purposes only and have not been reviewed by [facility] Radiology. There will be no report generated by a [facility] Radiologist. Narrative [email or web address] - 03/06/2025 2:10 AM CDT EXAMINATION: Images For Reference Purposes Only us Krysta Arora MD [facility] CT PROCEDURES Final Resul t [email or web address] * XR Outside Reference (03/02/2025 5:06 PM CDT) Impressions [email or web address] - 03/02/2025 5:06 PM CDT These images are for Reference purposes only and have not been reviewed by [facility] Radiology. There will be no report generated by a [facility] Radiologist. Narrative [email or web address] - 03/02/2025 5:06 PM CDT EXAMINATION: Images For Reference Purposes Only Krysta Arora MD IMG XR PROCEDURES Final Resul t Performing Organization Address City/[facility]/ZIP Co de Phone Number [email or web address] * XR Outside Reference (03/02/2025 5:05 PM CDT) Impressions [email or web address] - 03/02/2025 5:05 PM CDT These images are for Reference purposes only and have not been reviewed by [facility]. There will be no report generated by a [facility] Radiologist. Narrative [email or web address] - 03/02/2025 5:05 PM CDT EXAMINATION: Images For Reference Purposes Only Krysta Arora MD IMG XR PROCEDURES Final Resul t Performing Organization Address [facility] Co de Phone Number [facility] from Last 3 Months Insurance [facility] MEDICARE [facility] T MEDICARE GOLD [facility] REF Care Teams Cable Operator Relationship Specialty Start Date End Date Rachelle Freitas DO [facility] [facility] [address] [place] [address] [place] [id number] PCP - General Family Medicine 03/08/25
--- OUTSIDE RECORDS SUMMARY | 2025-05-23 13:19 | XMS_ITS | Patient Health Record ---
Author Organization [facility] Address [address] [place] [address] Support Name Relationship Address Phone Yash Aguirre Guarantor Unknown Reason For Referral No Information Social History Social History Drugs/Alcohol: Social Info Question Answer Notes Drug Use Have you used drugs other than those for medical reasons in the past 12 months? No General Social Info Question Answer Notes Advanced Directives Do you have advanced directives? No Provided patient with DNR, living will and durable power of transactional attorney for healthcare decision forms. Risk Questionnaire Social Info Question Answer Notes How much difficulty (on average) do you have with the following physical activities? Stooping, crouching or kneeling? A little difficulty Lifting, or carrying objects as heavy as 10 poun ds? No difficulty Reaching or extending arms above shoulder level? No difficulty Writing, or grasping/handling small objects? A l ittle difficulty Walking a Quarter of a Mile? No difficulty Heavy housework such as scrubbing floors or wash ing windows? No difficulty Doing light housework (washi ng dishes, straightening up, dusting) No difficulty Because of your health or ph ysical condition, do you have difficulty with: Shopping for personal items (toilet, medicine etc) No Managing Money No Walking across the room No Functional Ability/Safety Screening Was the patient's timed Up & Go test unsteady or longer than 30 seconds? No Have you noticed any hearing difficulties? Yes Hearing Evaluation Notes: Does n ot wear hearing aids. Vision Examination Notes: Wears prescription glasses daily. Motor Vehicle Safety Do you always faste n your seat belt when you are in the car? Yes Do you ever drive after drin lyudmila alcohol, or ride with a log truck driver who has been drinking alcohol? No Eating Patterns How many times a wee k do you eat fast food, snacks or pizza? Once a month In the past week, how many servings of f ruits/vegetables did you eat each day? 1 In the past week, how many s chuyita and sugar sweetened drinks (regular, not diet) do you drink each day? 0 Plan Of Treatment No Information Insurance Providers Payer Name Payer Address Payer Phone Subscriber Number Group Number Insured Name Patient Relationship to Insured Coverage Start Date Coverage End Date [facility]/ [employer] PPO/HMO [address] [place] [id number] Yash Vargas Self - patient is the insured
--- OUTSIDE RECORDS SUMMARY | 2025-05-23 13:19 | XMS_ITS | Data Portability ---
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 He [...] more than half the time spent in jgbj-ew-ctcx care. Not available 04/07/2023 10:57:45 07/12/2023 07/12/2023 [...] 305 lb BMI is 52.5. He has qwpy-pv-inevrqmr palpable effusions in both knees. He has chronic lymphedema in both lower extremities with chronic skin changes in both lower extremities. No redness or signs symptoms cellulitis. He has rvie-jt-sgyyzidg tenderness over medial joint lines to palpation. [...] patient more than half of this in xpwa-vk-bprn conversation herb Not available 08/11/2023 16:10:17 Plan of Treatment Reminders Order Date Submit Date Provider Last Modified By Organization Details Last Modified Time Details Appointments None recorded. Lab None recorded. Referral None recorded. Procedures knee aspiration/ injection (PROC) 2022 023 [email or web address] In-Office Order, Internal Use Only DO Not Attach Compendium DO Not Attach Compendium, Do Not Delete/merge, [id number] 3 14:49:13 injection/a spiration joint/bursa (PROC) - in office procedure, administere d by provider 2022 023 In-Office Order, Internal Use Only DO Not Attach Compendium DO Not Attach Compendium, Do Not Delete/merge, [id number] 3 10:30:52 Surgeries None recorded. Imaging None recorded. Medication Orders Monovisc 88 mg/4 mL intra-artic ular syringe 2022 023 [email or web address] [facility] [place], [address], 3 16:11:19 Kenalog 10 mg/mL suspension for injection [address] [facility] [address] [place], [address], 3 10:30:52 ropivacaine (PF) 5 mg/mL (0.5 %) injection solution [address] [facility] [address] [place], [address], 3 10:30:52 Patient TargetsNo targets recorded. 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 Procedures Surgical History Date Name Laterality Status Provider Name and Address Organization Details Recorded Time Gallstones completed FATMATA Muñoz [place] [employer] [facility] [employer] 04/07/2023 10:20:03 Imaging Results None recorded. Procedure Notes None [...] , administe red by provider 2022 active [facility]: [phone] [phone] Not Available Not Available [...] , administe red by provider 2022 active [facility] [phone] Not Available Not Available Not [...] Updated DateTime 04/07/2023 162.56 cm 52.5 kg/m2 531412.55 g FATMATA Muñoz - [facility] [employer] [facility] 04/07/2023 10:27:39 Date Recorded Body height Provider Name an d Address Organization Details Last Updated DateTime 07/12/2023 162.56 cm FATMATA Muñoz [facility] [employer] [facility] 07/12/2023 14:46:05 Date Recorded Body height Provider Name an d Address Organization Details Last Updated DateTime 08/11/2023 162.56 cm FATMATA Muñoz [facility] [employer] [facility] 08/11/2023 14:46:12 Social History None recorded. Functional Status Question Answer Note LastModified by Organization D etails LastModified Time What is your level of alcohol consumption? None [email or web address] Information not available 04/07/2023 Mental Status None recorded. Family History Relationship Description Onset Age of this Age Resolved Age Notes LastModified by Organization Details LastModified Time Father Family history of stroke Not available 2022 10:19:17 Father Hypertensive disorder [email or web address] Not available 2022 10:19:33 Mother Family history of stroke [email or web address] Not available 2022 10:19:17 Maternal Grandmother Diabetes mellitus [email or web address] Not available 2022 10:19:42 Medical History Condition Response ARTHRITIS Y BLOOD CLOTS Y HYPERTENSION Y ANEMIA/BLOOD DISORDER Y Past Encounters Encounter ID Performer Location Encounter Start Date Encounter Closed Date Diagnosis/Indication Diagnosis SNOMED-CT Code Diagnosis ICD10 Code Diagnosis Note [id number] Gt Nolan MD [facility] [place] [address] [place] [address] 04/07/2023 09:38:00 04/07/2023 11:07:18 Bilateral osteoarthritis of knees [id number] 61882 M17.[id number] [facility] [place] [address] [place] [address] 07/12/2023 14:41:56 07/12/2023 15:23:05 Bilateral osteoarthritis of knees [id number] 19395 M17.[id number] [facility] [place] [address] [place] [address] 08/11/2023 14:43:19 08/11/2023 16:57:09 Bilateral osteoarthritis of knees 3762351765 15412 M17.0 Health Concerns Section Related Observation LastModified by Organization Detai ls LastModified Time None Recorded Concern Status LastModified by Organization Details LastModified Time None Recorded Advance Directives Directive None Recorded Payers Insurance Date Sequence Insurance Name Policy Number Policy Gramajo Covered Member ID Gramajo Member ID Guarantor Name 08/16/2023 1 [employer] - PRIME (MEDICARE REPLACEMENT/ ADVANTAGE - HMO) [id number] L Yash Herrera [place] [id number] Yash Aguirre Notes Date Note Type Note [...] the lawn more to squat down to picker tender sticks. He had no trauma but after [...] 03/16/2023 which demonstrate on the right knee dukl-fq-jbta medial compartment osteoarthritis in the left knee moderate medial joint space narrowing with probable effusion. These are nonweightbearing x-rays. Gt Nolan MD [address] [place] [address], [facility] [address], [place], [address], [facility] [employer] [facility] 04/07/2023 10:58:02
--- OUTSIDE RECORDS SUMMARY | 2025-05-23 13:19 | XMS_ITS | Encounter Summary ---
Author Organization [facility] Address [address] [place] [address] Care Team Providers Care Civil Engineering Intern Name Role Phone Rachelle Freitas DO Primary Care Provider [phone] Reason for Visit * Reason Comments Knee Pain Left knee. Had fall while visiting son in [place]. Has progressively been getting worse. New onset of swelling and warm to the touch. 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 documented in this encounter Progress Notes * Robyn Dunn PA - 05/23/2025 12:30 PM CDT Images from the original note were not included. Subjective/Objective Patient ID: Yash Aguirre is a 80 y.o. male. Chief Complaint Knee Pain (Left knee. Had fall while visiting son in [place]. Has progressively been getting worse. New onset of swelling and warm to the touch. ) Pt presents w/ L knee pain x 2 months s/p fall while in [place]. States he had an open cut on the front of the knee. Has had progressively worsening pain, swelling, and redness x 1 month. Redness now spreading down the leg. Has pain when straightening or bending the knee. Reports purulent drainage at times on his shorts. No fever. Review of Systems All systems reviewed and are negative or non contributory for this patient's presentation today other than as stated in the HPI . Physical Exam Constitutional: General: He is not in acute distress. HENT: Head: Normocephalic and atraumatic. Mouth/Throat: Pharynx: Oropharynx is clear. Eyes: Pupils: Pupils are equal, round, and reactive to light. Cardiovascular: Rate and Rhythm: Normal rate. Pulmonary: Effort: Pulmonary effort is normal. Musculoskeletal: General: Normal range of motion. Cervical back: Normal range of motion. Skin: General: Skin is warm and dry. Comments: See photo Neurological: General: No focal deficit present. Mental Status: He is alert and oriented to person, place, and time. Psychiatric: Mood and Affect: Mood normal. Behavior: Behavior normal. Vitals: 05/23/25 1230 BP: 153/86 Pulse: 82 Resp: 20 Temp: 36.9 ??C (98.5 ??F) TempSrc: Oral SpO2: 95% Weight: 128 kg (282 lb 1.6 oz) Assessment/Plan -pt had fall w/ abrasion of the L knee 2 months ago and presents w/ increasing pain, swelling, redness, and drainage x 1 month -acutely infected L knee on exam, hot to touch, erythema extending down the entire leg, anterior knee fluctuant w/ purulent drainage being expressed, unable to extend knee fully due to pain -concern for abscess vs septic joint -pt referred to ED for further evaluation and management Diagnoses and all orders for this visit: Cellulitis of left lower extremity (Primary) No results found for this or any previous visit (from the past 4 hours). Disposition ER - SANTINO Hanson 05/23/25 12:52 PM Cosigned by Jak Quach MD at 05/23/2025 1:02 PM CDT documented in this encounter Plan of Treatment Not on file documented as of this encounter Visit Diagnoses Diagnosis Cellulitis of left lower extremity- Primary documented in this encounter Care Teams Civil Engineering Intern Relationship Specialty Start Date End Date Rachelle Freitas DO [address] [facility] [address] [address] PCP - General Family Medicine 03/08/25 documented as of this encounter
--- OUTSIDE RECORDS SUMMARY | 2025-05-23 13:19 | XMS_ITS | Referral Summary ---
Author Organization [facility] Address [address] [place] [address] Care Team Providers Care Steward Racetrack Name Role Phone Rachelle Freitas DO Primary Care Provider [phone] Encounters Date Type Department Care Team Description 05/23/2025 12:30 PM CDT Office Visit [facility] Care at [address] [phone] Robyn Dunn PA Cellulitis of left lower extremity (Primary Dx) 04/25/2025 2:24 PM CDT - 04/25/2025 11:59 PM CDT Hospital Encounter [facility] [address] [place] [address] [address] [place] [phone] Krysta Arora MD Aneurysm of the ascending aorta, without rupture Discharge Disposition: Discharge to home or self care 04/25/2025 1:15 PM CDT - 04/25/2025 11:59 PM CDT Hospital Encounter [facility] [address] [place] [phone] Krysta Arora MD Aneurysm of the ascending aorta, without rupture Discharge Disposition: Discharge to home or self care 04/11/2025 Orders Only [facility] Cardiothoracic Surgery [address] [place] [address] Advanced Medicine 8th Floor [address] [place] [address] Krysta Arora MD Aneurysm of the ascending aorta, without rupture (Primary Dx) 03/08/2025 11:30 AM CDT Office Visit [facility] Cardiothoracic Surgery [address] [place] [address] Advanced Medicine 8th Floor [address] Room [address] [place] [phone] Krysta Arora MD Aneurysm of the ascending aorta, without rupture 03/06/2025 2:10 AM CDT - 03/06/2025 11:59 PM CDT Hospital Encounter [facility]) [address] [place] [address] Discharge Disposition: Discharge to home or self care 03/02/2025 5:06 PM CDT - 03/02/2025 11:59 PM CDT Hospital Encounter [facility] ([facility]) [address] [place] [id number] Discharge Disposition: Discharge to home or self care 03/02/2025 5:05 PM CDT - 03/02/2025 11:59 PM CDT Hospital Encounter [facility] ([facility]) [address] [place] [address] Discharge Disposition: Discharge to home or self care from Last 3 Months Allergies No known active allergies Medications doxazosin [...] 1 tablet (25 mcg total) by mouth laundromat manager before breakfast 5 Active simvastatin (ZOCOR) 10 [...] on file 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 Gender Identity Not on file Sexual Orientation [...] 03/08/2025 11:33 AM CDT Plan of Treatment Not on file Procedures Procedure Name Priority Date/Time Associated Diagnosis [...] CDT [facility] Cardiac [place] [address] Transthoracic Echocardiographic Report Patient Name: SHERICE ARMAS H : 1945 (80y 1m) Gender: M Study Date: 04/25/2025 02:48:03 PM Ht(Inch): 66 Wt(Lb): 287.92 BSA: 2.47 Quartz Miner: Cheryle Oseguera RDCS Location: [facility] Order Provider: KRYSTA ARORA [...] LA Length 2C 6.67 cm AI Decel Luce 1.60 m/s2 LA Volume BP 108.13 ml [...] - 04/25/2025 [facility] [place] [address] Transthoracic Echocardiographic Report Patient Name: SHERICE ARMAS H : 1945 (80y 1m) Gender: M Study Date: 04/25/2025 02:48:03 PM Ht(Inch): 66 Wt(Lb): 287.92 BSA: 2.47 Quartz Miner: Cheryle Oseguera RDCS Location: [facility] Order [...] LA Length 4C 6.50 cm AI Decel Zrue6915.71 sec LA Length 2C 6.67 cm AI Decel Slope1.60 m/s2 LA Volume BP 108.13 ml AI NRF580.45 msec LA Volume Index 43.78 ml/m2 [ [...] Asc Ao Index 1.77 cm/m2 MV Decel Lndl672.81 msec [ 104.00 - 258.00 ] Med [...] cm. Electronically signed by: Esteban Hall M.D. Krysta Arora MD [facility] PROCEDURES Final Resul t * CT Body Outside Reference (03/06/2025 2:10 AM CDT) Impressions [facility] - 03/06/2025 2:10 AM CDT These images are for Reference purposes only and have not been reviewed by [facility] Radiology. There will be no report generated by a [facility] Radiologist. Narrative [facility] - 03/06/2025 2:10 AM CDT EXAMINATION: Images For Reference Purposes Only Krysta Arora MD IMG CT PROCEDURES Final Resul t Performing Organization Address [facility] de Phone Number [facility] * XR Outside Reference (03/02/2025 5:06 PM CDT) Impressions [facility] - 03/02/2025 5:06 PM CDT These images are for Reference purposes only and have not been reviewed by [facility] Radiology. There will be no report generated by a [facility] Radiologist. Narrative [facility] - 03/02/2025 5:06 PM CDT EXAMINATION: Images For Reference Purposes Only us Krysta Arora MD IMG XR PROCEDURES Final Resul t Performing Organization Address [facility] de Phone Number [facility] * XR Outside Reference (03/02/2025 5:05 PM CDT) Impressions [facility] - 03/02/2025 5:05 PM CDT These images are for Reference purposes only and have not been reviewed by [facility] Radiology. There will be no report generated by a [facility] Radiologist. Narrative [facility] - 03/02/2025 5:05 PM CDT EXAMINATION: Images For Reference Purposes Only us Krysta Arora MD IMG XR PROCEDURES Final Resul t Performing Organization Address [facility] Co de Phone Number [facility] from Last 3 Months Insurance AETNA MEDICARE GOLD AETNA MEDICARE GOLD [facility] Care Teams Steward Racetrack Relationship Specialty Start Date End Date Rachelle Freitas DO [address] [facility] [address] [place] [address] [place] [address] PCP - General Family Medicine 03/08/25
--- OUTSIDE RECORDS SUMMARY | 2025-05-23 13:19 | XMS_ITS ---
Author Name Auto Generated, Auto Generated Organization [employer] [facility] ices Address [address] [place] [address] Phone [phone] Care Team Providers Care Supervisor Hand Silvering Name Role Phone Vincent Noonan Unavailable MatildeyoelRachelle hay Unavailable [phone] Edita Riley Unavailable [phone] Daniellekristine Caity Unavailable Functional Status No Results Mental Status No Results Allergies and Intolerances Name Onset Date Reaction Severity No Known Allergies (Allergy) WedFeb 06 15:59:00 EDT 2024 Encounters Program Name Primary Diagnosis Admission Date/Time Dis charge Date/Time Supervisor Carbon Paper Coating Care Facility [facility] WedFeb 06 11:00:00 EDT 2024Feb 16 09:57:00 EDT 2024 [facility] Feb 18 20:00 :00 EDT 2024Mar 09 19:59:59 EDT 2024 Immunizations Name Dates Status TST-PPD [...] 2024 * End Date: * Text: * terminal makeup operator (current) use of anticoagulants* Code: * Start [...] 2024 * End Date: * Text: * custodial (current) use of aspirin* Code: * Start [...] 2024 * End Date: * Text: * custodial (current) use of oral hypoglycemic drugs* Code: * Start Date: WedFeb 06 00:00:00 EDT 2024 * End Date: * Text: * custodial (current) use of opiate analgesic* Code: * [...] * End Date: * Text: * Other [facility] (current) drug therapy* Code: * Start Date: [...] 2024 * End Date: * Text: * [id number] Yash receives a therapeutic diet. (12)* Code: * Start Date: WedFeb 14 00:00:00 EDT 2024 * End Date: * Text: [id number] Yash receives a therapeutic diet. (12) Vital [...] :09 EDT 2024 Body weight 291.60 [lb_av] [facility] Mar 22 10:34 :09 EDT 2024 [...] EDT 2024 Diastolic Blood Pressure 75.00 mm[Hg] [facility] Jan 22 01:56:21 EDT 2024 Pulse Oximetry 95.00 % [facility] Feb 10 01:56 :21 EDT 2024 Heart Rate 76.00 /min [facility] Feb 10 01:56 :21 EDT 2024 Body temperature 97.90 [degF] [facility] Feb 10 01:5 6:21 EDT 2024 Respiratory rate 20.00 /min [facility] Feb 10 01:5 6:21 EDT 5 [...] EDT 2024 Diastolic Blood Pressure 81.00 mm[Hg] [facility] Feb 08 22:03:02 EDT 2024 Pulse Oximetry 98.00 % Eleonorajan 20 22:03 :02 EDT 2024 Heart Rate 65.00 /min Eleonoarjan 20 22:03 :02 EDT 2024 Body temperature 97.90 [degF] [facility] Jan 20 22:0 3:02 EDT 2024 Respiratory rate 18.00 /min Eleonora Jan 20 22:0 3:02 EDT 2024 Systolic Blood Pressure 146.00 mm[Hg] Eleonorajan 20 17:52:16 EDT 2024 Diastolic Blood Pressure 80.00 mm[Hg] Eleonora Jan 20 17:52:16 EDT 2024 Body weight 289.40 [lb_av] [facility] Jan 20 10:11 :44 EDT 2024 Systolic Blood Pressure 150.00 mm[Hg] Eleonorajan 20 10:10:16 EDT 2024 Diastolic Blood Pressure 81.00 mm[Hg] [facility] Jan 20 10:10:16 EDT 2024 Pulse Oximetry 95.00 % Eleonorajan 20 10:10 :16 EDT 2024 Heart Rate 63.00 /min [facility] Jan 20 10:10 :16 EDT 2024 Body temperature 97.70 [degF] [facility] Jan 20 10:1 0:16 EDT 2024 Respiratory rate 18.00 /min [facility] Jan 20 10:1 0:16 EDT 2024 [...]
--- NOTE | 2025-05-23 13:25 | ECG_ITS ---
Test Date: 2025-05-23 13:36:37 Measurements Intervals [place] Rate: 80 P: 26 IN: 218 QRS: -75 QRSD: 126 T: 51 QT: 402 QTc: 464 Interpretive Statements SINUS RHYTHM WITH FIRST DEGREE AV BLOCK RIGHT BUNDLE BRANCH BLOCK [120+ ms QRS DURATION, UPRIGHT V1, 40+ ms S IN I/aVL/V4/V5/V6] LEFT ANTERIOR FASCICULAR BLOCK [QRS AXIS <= -45, QR IN I, RS IN II] Compared to ECG 01/17/2025 15:41:17 No significant changes Electronically Signed On 05-24-2025 16:31:56 CDT by Cinthya Esqueda
--- NOTE | 2025-05-23 13:26 | ED.LOWEXIN ---
HPI - Extremity Injury (Lower) General Chief Complaint: Extremity Injury, Lower <Kat Armenta APRN - Last Filed: 05/23/25 13:35> Stated Complaint: knee injuey 03/30, possible infection? <Kat Armenta APRN - Last Filed: 05/23/25 13:35> Time Seen by Provider: 05/23/25 13:20 <Kat Armenta APRN - Last Filed: 05/23/25 13:35> Focused HPI: Patient is an 80-year-old male who presents to the ER with left knee pain following an injury. He reports he fell on March 30, 2025. Patient reports he was climbing on the bleachers and his foot slipped. He reports his left knee hit the concrete and a scab developed. Patient reports he has not had healthcare provider evaluate his knee since the injury. Over the past week patient's left knee has swollen and an abscess has developed into the skin. Earlier today patient went to urgent care who advised him to come to the ER for evaluation. Patient endorses a history of an aortic aneurysm in need of repair, diabetes, high blood pressure, hyperlipidemia. He denies any new shortness of breath, calf pain, recent fevers. GENERAL: Well-appearing, obese, and mild respiratory distress (baseline). HEAD: Normocephalic, atraumatic. CHEST: Clear to auscultation. ?No respiratory distress. HEART: + murmur NEURO: ?Alert and oriented x3. SKIN: L lower extremity redness and edema around knee, approximately quarter-sized abscess with noticeable dried drainage down leg, but no drainage produced with palpation to site Patient screened in triage and initial orders placed.? ?Additional care and disposition to be based upon?diagnostic testing and treatment. <Kat Armenta APRN - Last Filed: 05/23/25 13:35> History of Present Illness HPI Narrative: Agree with HPI. Progressive swelling and redness of the left knee over last 6 weeks since a fall in [place] down the last seat on bleachers. Able bear weight. No fevers or chills or sweats. <Zoltan Key MD - Last Filed: 05/23/25 17:23> Related Data Home Medications: Home Medications ?Medication ?Instructions ?Recorded ?Confirmed ?Last Taken ?Type Glucosamine Chondroitin 1 cap PO DAILY 05/02/24 04/19/25 05/09/24 History ferrous sulfate 324 mg (65 mg mg PO 03/07/25 04/19/25 Unknown History iron) tablet,delayed release levothyroxine 25 mcg capsule 25 mcg PO DAILY 03/07/25 04/19/25 Unknown History <Kat Armenta APRN - Last Filed: 05/23/25 13:35> Allergies/Adverse Reactions: Allergies Allergy/AdvReac Type Severity Reaction Status Date / Time No Known Drug Allergies Allergy Unknown Verified 04/19/25 13:53 <Kat Armenta APRN - Last Filed: 05/23/25 13:35> Review of Systems Review of Systems: All systems reviewed & are unremarkable except as noted in HPI and below <Zoltan Key MD - Last Filed: 05/23/25 17:23> Constitutional: Constitutional: Reports no additional constitutional complaints <Zoltan Key MD - Last Filed: 05/23/25 17:23> ENT: Reports system reviewed and no additional complaints, except as documented <Zoltan Key MD - Last Filed: 05/23/25 17:23> Respiratory: Respiratory: Reports no additional respiratory complaints <Zoltan Key MD - Last Filed: 05/23/25 17:23> Gastrointestinal: Gastrointestinal: Reports no additional gastrointestinal complaints <Zoltan Key MD - Last Filed: 05/23/25 17:23> Musculoskeletal: Musculoskeletal: Reports no additional musculoskeletal complaints <Zoltan Key MD - Last Filed: 05/23/25 17:23> [facility]LY [facility] Past Medical History Medical History: Medical History Anticoagulant long-term use Hx of deep venous thrombosis Intermittent diarrhea Lower GI bleed Colon cancer screening History of mumps History of measles History of chicken pox Spinal stenosis Arm fracture (1958) Normal colonoscopy (06/29/12) 07/19/2012 <Kat Armenta APRN - Last Filed: 05/23/25 13:35> Surgical History Surgical History: Surgical History H/O exploratory laparotomy 01/18/25 Exploratory laparotomy, abdominal adhesiolysis. Dr. roberts History of tonsillectomy (~1949) Hx of cholecystectomy (1991) H/O nasal septoplasty (1992) <Kat Armenta, PASTEURIZING MACHINE OPERATOR - Last Filed: 05/23/25 13:35> Family History Family History: Family History Grandparent Diabetes mellitus Hypertension Cerebrovascular accident Father Hypertension Family history of elevated blood lipids, Onset Age: 89 Family history of cardiovascular disease Cerebrovascular accident Mother Family history of elevated blood lipids, Onset Age: 93 Family history of cardiovascular disease Diabetes mellitus Hypertension Cerebrovascular accident <Kat Armenta APRN - Last Filed: 05/23/25 13:35> Social History Social History: Social History Smoking status: Never smoker Alcohol intake: current Drinks per week: 1 Alcohol use details: occasionnally Substance use: never Substance use type: does not use Do You Feel Safe in your Home?: Yes Lack of Transportation: No Lack of Food: Never True Current Housing: I Have Housing Concerned About Future Housing: No Difficulty Paying Gas/Electric Bills: No Difficulty Paying for Meds: No Currently Unemployed: No Education: Bachelor's Degree Difficulty w/ Childcare or Family Care: No Living arrangements: alone Occupation/Education: retired Gender identity (if verbalized by the patient): Male Spiritual care concerns: No Agree to blood products: Yes <Kat Armenta, PASTEURIZING MACHINE OPERATOR - Last Filed: 05/23/25 13:35> Exam Narrative: GENERAL: Chronically ill-appearing, obese, and in no acute distress. HEAD: Normocephalic, atraumatic. ENT: Nares clear, no rhinorrhea or epistaxis. Mucous membranes moist. NECK: Supple. CHEST: Clear to auscultation. No respiratory distress. HEART: Regular rate and rhythm. Normal peripheral pulses. EXTREMITIES: Bilateral lower extremities with 3+ lower extremity edema. Left knee with significant effusion in the suprapatellar region and mild erythema and warmth extending down to the mid fitzpatrick. SKIN: Warm, dry, no rash. See above. NEURO: Alert and oriented x3. PSYCH: Normal mood and affect. <Zoltan Key MD - Last Filed: 05/23/25 17:23> Course Course Emergency Course: Discussed with Orthopedic surgery. Options of inpatient verses outpatient management discussed. Patient at risk of poor healing due to chronic debility and diabetes. Will admit for IV antibiotics and drainage/evaluation of the hematoma. This will also likely help him better schedule a AAA repair that he has tentatively scheduled for 06/08/2025. Ancef and vancomycin ordered for septic bursitis. Accepted by hospitalist. <Zoltan Key MD - Last Filed: 05/23/25 17:23> Vital Signs Vital signs: Vital Signs Temperature 98.4 F 05/23/25 13:23 Pulse Rate 86 05/23/25 13:23 Respiratory Rate 16 05/23/25 13:23 Blood Pressure 187/107 H 05/23/25 13:23 Pulse Oximetry 98 05/23/25 13:23 Oxygen Delivery Room Air 05/23/25 13:23 Temperature 98.4 F 05/23/25 13:23 Pulse Rate 80 05/23/25 16:31 Respiratory Rate 18 05/23/25 16:31 Blood Pressure 145/83 H 05/23/25 16:31 Pulse Oximetry 97 05/23/25 16:31 Oxygen Delivery Room Air 05/23/25 14:18 <Kat Armenta, PASTEURIZING MACHINE OPERATOR - Last Filed: 05/23/25 13:35> Vital Signs Temperature 98.4 F 05/23/25 13:23 Pulse Rate 86 05/23/25 13:23 Respiratory Rate 16 05/23/25 13:23 Blood Pressure 187/107 H 05/23/25 13:23 Pulse Oximetry 98 05/23/25 13:23 Oxygen Delivery Room Air 05/23/25 13:23 Temperature 98.4 F 05/23/25 13:23 Pulse Rate 80 05/23/25 16:31 Respiratory Rate 18 05/23/25 16:31 Blood Pressure 145/83 H 05/23/25 16:31 Pulse Oximetry 97 05/23/25 16:31 Oxygen Delivery Room Air 05/23/25 14:18 <Zoltan Key MD - Last Filed: 05/23/25 17:23> MDM - Extremity Injury (Lower) Lab Data Result diagrams: 05/23/25 13:45 05/23/25 13:45 <Kat Armenta, PASTEURIZING MACHINE OPERATOR - Last Filed: 05/23/25 13:35> Labs: Lab Results 05/23/25 05/23/25 Range/Units 13:45 16:23 WBC 12.1 H (4.5-10.0) K/mm3 RBC 4.30 L (4.6-6.20) M/mm3 Hgb 11.7 L (14.0-18.0) g/dL Hct 36.8 L (42.0-52.0) % MCV 85.6 (80-100) fl MCH 27.2 (26-34) pg MCHC 31.8 L (32-36) g/dl RDW 12.9 (11.5-14.5) % Plt Count 287 (150-375) k/mm3 MPV 9.2 (7.4-10.4) fl Immature Gran % (Auto) 1.2 H (0-0.5) % Neut % (Auto) 75.9 H (45.5-73.1) % Lymph % (Auto) 10.7 L (18.3-44.2) % Christian % (Auto) 8.8 H (2.6-8.5) % Eos % (Auto) 3.1 (0-4.4) % Baso % (Auto) 0.3 (0.2-1.2) % Lymph # (Auto) 1.29 (0.9-3.2) K/mm3 Christian # (Auto) 1.1 H (0.1-0.6) K/mm3 Eos # (Auto) 0.4 H (0-0.3) K/mm3 Baso # (Auto) 0.0 (0.0-0.1) K/mm3 Abs Immat Gran (auto) 0.14 H (0.00-0.031) K/mm3 Absolute Neuts (auto) 9.2 H (1.3-6.7) K/mm3 Absolute Nucleated RBC 0.000 (0.0-0.012) K/mm3 Nucleated RBC % 0.0 (0.0-0.2) % PT 14.8 H (11.1-14.7) Seconds INR 1.1 APTT 26.1 (22.3-36.8) Seconds Sodium 136 L (137-145) mmol/L Potassium 3.8 (3.4-5.0) mmol/L Chloride 97 L (98-107) mmol/L Carbon Dioxide 26 (22-30) mmol/L Anion Gap 13 H (4-12) mmol/L BUN 20 (9-20) mg/dL Creatinine 1.41 H (0.7-1.3) mg/dL Estim Creat Clear Calc 48 ml/min Estimated GFR 48 L (59 - ) Glucose 216 H (65-110) mg/dL Lactic Acid 1.6 (0.7-2.0) mmol/L Calcium 10.0 (8.4-10.2) mg/dL Total Bilirubin 0.5 (0.2-1.3) mg/dL AST 48 (17-59) U/L ALT 49 (6-50) U/L Alkaline Phosphatase 45 (38-126) U/L C-Reactive Protein 7.9 H (<1.0) mg/dL Total Protein 8.6 H (6.3-8.2) g/dL Albumin 4.2 (3.5-5.1) g/dL Urine Color Yellow (Yellow) Urine Appearance Clear (Clear) Urine pH 5.5 (5.0-9.0) Ur Specific [place] 1.018 (1.001-1.035) Urine Protein 2+ H (Negative) mg/dL Urine Glucose (UA) Negative (Negative) mg/dL Urine Ketones Negative (Negative) mg/dL Ur Blood (Man) Negative (Negative) Urine Nitrate Negative (Negative) Urine Bilirubin Negative (Negative) Urine Urobilinogen 1.0 (<2.0) mg/dL Leukocyte Esterase Rfl Negative (Negative) KULWINDER/UL Urine RBC 0-2 (0-2) /hpf Urine WBC 0-5 (0-3) /hpf Ur Squamous Epith Cells None seen (Few) /hpf Urine Bacteria None seen /hpf Urine Casts 0-2 <Kat Armenta, PASTEURIZING MACHINE OPERATOR - Last Filed: 05/23/25 13:35> Lab Results 05/23/25 05/23/25 Range/Units 13:45 16:23 WBC 12.1 H (4.5-10.0) K/mm3 RBC 4.30 L (4.6-6.20) M/mm3 Hgb 11.7 L (14.0-18.0) g/dL Hct 36.8 L (42.0-52.0) % MCV 85.6 (80-100) fl MCH 27.2 (26-34) pg MCHC 31.8 L (32-36) g/dl RDW 12.9 (11.5-14.5) % Plt Count 287 (150-375) k/mm3 MPV 9.2 (7.4-10.4) fl Immature Gran % (Auto) 1.2 H (0-0.5) % Neut % (Auto) 75.9 H (45.5-73.1) % Lymph % (Auto) 10.7 L (18.3-44.2) % Christian % (Auto) 8.8 H (2.6-8.5) % Eos % (Auto) 3.1 (0-4.4) % Baso % (Auto) 0.3 (0.2-1.2) % Lymph # (Auto) 1.29 (0.9-3.2) K/mm3 Christian # (Auto) 1.1 H (0.1-0.6) K/mm3 Eos # (Auto) 0.4 H (0-0.3) K/mm3 Baso # (Auto) 0.0 (0.0-0.1) K/mm3 Abs Immat Gran (auto) 0.14 H (0.00-0.031) K/mm3 Absolute Neuts (auto) 9.2 H (1.3-6.7) K/mm3 Absolute Nucleated RBC 0.000 (0.0-0.012) K/mm3 Nucleated RBC % 0.0 (0.0-0.2) % PT 14.8 H (11.1-14.7) Seconds INR 1.1 APTT 26.1 (22.3-36.8) Seconds Sodium 136 L (137-145) mmol/L Potassium 3.8 (3.4-5.0) mmol/L Chloride 97 L (98-107) mmol/L Carbon Dioxide 26 (22-30) mmol/L Anion Gap 13 H (4-12) mmol/L BUN 20 (9-20) mg/dL Creatinine 1.41 H (0.7-1.3) mg/dL Estim Creat Clear Calc 48 ml/min Estimated GFR 48 L (59 - ) Glucose 216 H (65-110) mg/dL Lactic Acid 1.6 (0.7-2.0) mmol/L Calcium 10.0 (8.4-10.2) mg/dL Total Bilirubin 0.5 (0.2-1.3) mg/dL AST 48 (17-59) U/L ALT 49 (6-50) U/L Alkaline Phosphatase 45 (38-126) U/L C-Reactive Protein 7.9 H (<1.0) mg/dL Total Protein 8.6 H (6.3-8.2) g/dL Albumin 4.2 (3.5-5.1) g/dL Urine Color Yellow (Yellow) Urine Appearance Clear (Clear) Urine pH 5.5 (5.0-9.0) Ur Specific [place] 1.018 (1.001-1.035) Urine Protein 2+ H (Negative) mg/dL Urine Glucose (UA) Negative (Negative) mg/dL Urine Ketones Negative (Negative) mg/dL Ur Blood (Man) Negative (Negative) Urine Nitrate Negative (Negative) Urine Bilirubin Negative (Negative) Urine Urobilinogen 1.0 (<2.0) mg/dL Leukocyte Esterase Rfl Negative (Negative) KULWINDER/UL Urine RBC 0-2 (0-2) /hpf Urine WBC 0-5 (0-3) /hpf Ur Squamous Epith Cells None seen (Few) /hpf Urine Bacteria None seen /hpf Urine Casts 0-2 <Zoltan Key MD - Last Filed: 05/23/25 17:23> Imaging Data Radiologist's impression: ITS Impressions Venous Doppler Study 05/23/25 15:18 IMPRESSION: Negative left lower extremity venous US. No deep vein thrombosis. Knee CT 05/23/25 15:39 IMPRESSION: 1. 10 x 9.6 x 5.2 cm organized anterolateral prepatellar fluid collection which in the setting of trauma most consistent with a hematoma. Differential would include bursitis on the positioning is more lateral and cephalad than typical or abscess in the appropriate clinical setting. 2. 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 2. Likely vertical radial versus parrot beak configuration tear of the posterior horn of the medial meniscus although specificity is lower than with MRI which could be obtained as clinically indicated for more definitive determination. <Zoltan Key MD - Last Filed: 05/23/25 17:23> Discharge Plan Discharge Clinical Impression: Septic bursitis, Hematoma of left knee region <Kat Armenta APRN - Last Filed: 05/23/25 13:35> Patient Disposition: Still a Patient <Kat Armenta APRN - Last Filed: 05/23/25 13:35> Condition: Stable <Kat Armenta APRN - Last Filed: 05/23/25 13:35> Patient Language: Sami <Kat Armenta APRN - Last Filed: 05/23/25 13:35> Prescriptions: No Action levothyroxine 25 mcg capsule 25 mcg PO DAILY ferrous sulfate 324 mg (65 mg iron) tablet,delayed release (DR/EC) PO clonidine 0.1 mg/24 hr patch weekly 1 patch transdermal WEEKLY Qty: 4 0RF Glucosamine Chondroitin 1 cap PO DAILY fenofibrate micronized 134 mg capsule See Rx Instructions .ROUTE .COMPLEX Qty: 90 1RF Dose Instruction: Take 1 capsule by mouth once daily Rx Instructions: Take 1 capsule by mouth once daily triamcinolone acetonide 0.1 % cream See Rx Instructions .ROUTE .COMPLEX Qty: 80 1RF Dose Instruction: APPLY CREAM EXTERNALLY TO AFFECTED AREA TWICE DAILY TO BOTH ARMS AND LOWER LEGS Rx Instructions: APPLY CREAM EXTERNALLY TO AFFECTED AREA TWICE DAILY TO BOTH ARMS AND LOWER LEGS finasteride 5 mg tablet See Rx Instructions .ROUTE .COMPLEX Qty: 90 1RF Dose Instruction: Take 1 tablet by mouth once daily Rx Instructions: Take 1 tablet by mouth once daily simvastatin 10 mg tablet 10 mg PO DAILY Qty: 90 1RF metformin 1,000 mg tablet 1,000 mg PO BID Qty: 180 1RF metoprolol succinate 25 mg tablet extended release 24 hr 25 mg PO DAILY Qty: 90 1RF gabapentin 300 mg capsule See Rx Instructions .ROUTE .COMPLEX Qty: 90 1RF Dose Instruction: TAKE 1 CAPSULE BY MOUTH THREE TIMES DAILY Patient Comments: takes twice a day Rx Instructions: TAKE 1 CAPSULE BY MOUTH TWO TIMES DAILY amlodipine 10 mg tablet 10 mg BYMOUTH QPM Qty: 90 1RF lisinopril-hydrochlorothiazide 20-25 mg tablet See Rx Instructions .ROUTE .COMPLEX Qty: 90 1RF Dose Instruction: Take 1 tablet by mouth once daily Rx Instructions: Take 1 tablet by mouth once daily doxazosin 8 mg tablet See Rx Instructions .ROUTE .COMPLEX Qty: 90 1RF Dose Instruction: Take 1 tablet by mouth once daily Rx Instructions: Take 1 tablet by mouth once daily Xarelto 20 mg tablet 20 mg PO DAILY Qty: 90 1RF pantoprazole 40 mg tablet,delayed release (DR/EC) 40 mg PO QAM Qty: 90 1RF <Kat Armenta APRN - Last Filed: 05/23/25 13:35> Follow-up/Referrals: Alida Dunn, MANAGING EDITOR-C [Primary Care Provider] - <Kat Armenta APRN - Last Filed: 05/23/25 13:35>
[2025-05-23 13:58] LABS: Hematocrit 36.8 % (42.0-52.0); Hemoglobin 11.7 g/dL (14.0-18.0); Immature Granulocyte Percent A 1.2 % (0-0.5); Lymphocytes Absolute Auto 1.29 K/mm3 (0.9-3.2); Mean Corpuscular HGB Conc 31.8 g/dl (32-36); Mean Corpuscular Hemoglobin 27.2 pg (26-34); Mean Corpuscular Volume 85.6 fl (80-100); Nucleated Red Blood Cells Absolute Auto 0.000 K/mm3 (0.0-0.012); Nucleated Red Blood Cells Perc 0.0 % (0.0-0.2); Platelet Count Result 287 k/mm3 (150-375); Red Blood Count 4.30 M/mm3 (4.6-6.20); White Blood Count 12.1 K/mm3 (4.5-10.0)
--- OUTSIDE RECORDS SUMMARY | 2025-05-23 13:58 | XMS_ITS ---
Author Name Auto Generated, Auto Generated Organization [facility] ices Address [address] [place] [address] Phone [phone] Care Team Providers Care Documentation Designer Name Role Phone Vincent Noonan Unavailable MatildeyoelRachelle hay Unavailable [phone] Edita Riley Unavailable Daniellekristine Caity Unavailable Functional Status No Results Mental Status No Results Allergies and Intolerances Name Onset Date Reaction Severity No Known Allergies (Allergy) WedFeb 06 15:59:00 EDT 2024 Encounters Program Name Primary Diagnosis Admission Date/Time Dis charge Date/Time Home Care [place] Feb 18 20:00 :00 EDT 2024Mar 09 19:59:59 EDT 2024 [facility] Care Facility [facility] [...] 2024 * End Date: * Text: * manager long term care (current) use of anticoagulants* Code: * Start [...] 2024 * End Date: * Text: * detention (current) use of aspirin* Code: * Start [...] 2024 * End Date: * Text: * detention (current) use of oral hypoglycemic drugs* Code: * Start Date: WedFeb 06 00:00:00 EDT 2024 * End Date: * Text: * detention (current) use of opiate analgesic* Code: * [...] * End Date: * Text: * Other detention (current) drug therapy* Code: * Start Date: [...] 2024 * End Date: * Text: * [id number] Yash receives a therapeutic diet. (12)* Code: * Start Date: WedFeb 14 00:00:00 EDT 2024 * End Date: * Text: [id number] Yash receives a therapeutic diet. (12) Vital [...] :09 EDT 2024 Body weight 291.60 [lb_av] [facility] Mar 22 10:34 :09 EDT 2024 [...] EDT 2024 Diastolic Blood Pressure 75.00 mm[Hg] [facility] Jan 22 01:56:21 EDT 2024 Pulse Oximetry 95.00 % [facility] Feb 10 01:56 :21 EDT 2024 Heart Rate 76.00 /min [facility] Feb 10 01:56 :21 EDT 2024 Body temperature 97.90 [degF] [facility] Feb 10 01:5 6:21 EDT 2024 Respiratory rate 20.00 /min [facility] Feb 10 01:5 6:21 EDT 5 [...] EDT 2024 Diastolic Blood Pressure 81.00 mm[Hg] [facility] Feb 08 22:03:02 EDT 2024 Pulse Oximetry 98.00 % [facility] 20 22:03 :02 EDT 2024 Heart Rate 65.00 /min [facility] 20 22:03 :02 EDT 2024 Body temperature 97.90 [degF] [facility] Jan 20 22:0 3:02 EDT 2024 Respiratory rate 18.00 /min [facility] Jan 20 22:0 3:02 EDT 2024 Systolic Blood Pressure 146.00 mm[Hg] [facility] 20 17:52:16 EDT 2024 Diastolic Blood Pressure 80.00 mm[Hg] [facility] Jan 20 17:52:16 EDT 2024 Body weight 289.40 [lb_av] [facility] Jan 20 10:11 :44 EDT 2024 Systolic Blood Pressure 150.00 mm[Hg] [facility] 20 10:10:16 EDT 2024 Diastolic Blood Pressure 81.00 mm[Hg] [facility] Jan 20 10:10:16 EDT 2024 Pulse Oximetry 95.00 % [facility] 20 10:10 :16 EDT 2024 Heart Rate 63.00 /min [facility] Jan 20 10:10 :16 EDT 2024 Body temperature 97.70 [degF] [facility] Jan 20 10:1 0:16 EDT 2024 Respiratory rate 18.00 /min [facility] Jan 20 10:1 0:16 EDT 2024 Systolic [...]
--- OUTSIDE RECORDS SUMMARY | 2025-05-23 13:58 | XMS_ITS ---
Author Name Auto Generated, Auto Generated Organization [employer] [facility] [facility] ices Address [address] [place] [address] Phone [phone] Care Team Providers Care Manager Port Name Role Phone Vincent Noonan Unavailable [phone] MatildeyoelRachelle hay Unavailable [phone] Edita Riley Unavailable Daniellekristine Caity Unavailable Functional Status No Results Mental Status No Results Allergies and Intolerances Name Onset Date Reaction Severity No Known Allergies (Allergy) WedFeb 06 15:59:00 EDT 2024 Encounters Program Name Primary Diagnosis Admission Date/Time Dis charge Date/Time Home Care [place] Feb 18 20:00 :00 EDT 2024Mar 09 19:59:59 EDT 2024 Longterm Care Facility [facility] WedFeb 06 11:00:00 EDT [...] 2024 * End Date: * Text: * extermination inspector (current) use of anticoagulants* Code: * Start [...] 2024 * End Date: * Text: * [facility] (current) use of aspirin* Code: * Start [...] 2024 * End Date: * Text: * [facility] (current) use of oral hypoglycemic drugs* Code: * Start Date: WedFeb 06 00:00:00 EDT 2024 * End Date: * Text: * [facility] (current) use of opiate analgesic* Code: * [...] * End Date: * Text: * Other senior care (current) drug therapy* Code: * Start Date: [...] 2024 * End Date: * Text: * [id number] Yash receives a therapeutic diet. (12)* Code: * Start Date: WedFeb 14 00:00:00 EDT 2024 * End Date: * Text: [id number] Yash receives a therapeutic diet. (12) Vital [...] EDT 2024 Diastolic Blood Pressure 81.00 mm[Hg] [facility] Feb 08 22:03:02 EDT 2024 Pulse Oximetry 98.00 % [facility] 20 22:03 :02 EDT 2024 Heart Rate 65.00 /min [facility] 20 22:03 :02 EDT 2024 Body temperature 97.90 [degF] [facility] Jan 20 22:0 3:02 EDT 2024 Respiratory rate 18.00 /min [facility] Jan 20 22:0 3:02 EDT 2024 Systolic Blood Pressure 146.00 mm[Hg] [facility] 20 17:52:16 EDT 2024 Diastolic Blood Pressure 80.00 mm[Hg] [facility] Jan 20 17:52:16 EDT 2024 Body weight 289.40 [lb_av] [facility] Jan 20 10:11 :44 EDT 2024 Systolic Blood Pressure 150.00 mm[Hg] [facility] 20 10:10:16 EDT 2024 Diastolic Blood Pressure 81.00 mm[Hg] [facility] Jan 20 10:10:16 EDT 2024 Pulse Oximetry 95.00 % [facility] 20 10:10 :16 EDT 2024 Heart Rate 63.00 /min [facility] Jan 20 10:10 :16 EDT 2024 Body temperature 97.70 [degF] [facility] Jan 20 10:1 0:16 EDT 2024 Respiratory rate 18.00 /min [facility] Jan 20 10:1 0:16 EDT 2024 [...]
--- OUTSIDE RECORDS SUMMARY | 2025-05-23 13:58 | XMS_ITS | Referral Summary ---
Author Organization [facility] [address] [place] [id number] Care Team Providers Care Die Reamer Name Role Phone Rachelle Freitas DO Primary Care Provider +1- [phone] Encounters Date Type Department Care Team Description 05/23/2025 12:30 PM CDT Office Visit [facility] at [address] [phone] Robyn Dunn PA Cellulitis of left lower extremity (Primary Dx) 04/25/2025 2:24 PM CDT - 04/25/2025 11:59 PM CDT Hospital Encounter [facility] Cardiac Diagnostic Lab [address] [place] [address] [address] [place] [phone] Krysta Arora MD Aneurysm of the ascending aorta, without rupture Discharge Disposition: Discharge to home or self care 04/25/2025 1:15 PM CDT - 04/25/2025 11:59 PM CDT Hospital Encounter [facility] [place] [facility] ([facility]) [address] [place] [id number] Krysta Arora MD Aneurysm of the ascending aorta, without rupture Discharge Disposition: Discharge to home or self care 04/11/2025 Orders Only [facility] Cardiothoracic Surgery [address] [place] [address] Advanced Medicine 8th Floor [address] Room 08[address]085 [place] [address] Krysta Arora MD Aneurysm of the ascending aorta, without rupture (Primary Dx) 03/08/2025 11:30 AM CDT Office Visit [facility] Cardiothoracic Surgery [address] [place] [address] Advanced Medicine 8th Floor [address] Room [address] [place] [phone] Krysta Arora MD Aneurysm of the ascending aorta, without rupture 03/06/2025 2:10 AM CDT - 03/06/2025 11:59 PM CDT Hospital Encounter [facility]) [address] [place] [address] Discharge Disposition: Discharge to home or self care 03/02/2025 5:06 PM CDT - 03/02/2025 11:59 PM CDT Hospital Encounter [facility] ([facility]) [address] [place] [address] Discharge Disposition: Discharge to home or self care 03/02/2025 5:05 PM CDT - 03/02/2025 11:59 PM CDT Hospital Encounter [facility] ([facility]) [address] [place] [address] Discharge Disposition: Discharge to home or self [...] 1 tablet (25 mcg total) by mouth coding compliance auditor before breakfast 5 Active simvastatin (ZOCOR) 10 [...] on file 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 Gender Identity Not on file Sexual Orientation [...] PM CDT Narrative 04/25/2025 5:27 PM CDT [facility] Cardiac [place] [address] Transthoracic Echocardiographic Report Patient Name: SHERICE ARMAS H : 1945 (80y 1m) Gender: M Study Date: 04/25/2025 02:48:03 PM Ht(Inch): 66 Wt(Lb): 287.92 BSA: 2.47 Pump Mechanic: Cheryle Oseguera RDCS Location: [facility] Order Provider: KRYSTA ARORA Heart Rate: 65 [...] LA Length 2C 6.67 cm AI Decel Bailey 1.60 m/s2 LA Volume BP 108.13 ml [...] Procedure Note Kd Cisneros MD - 04/25/2025 [facility] [place]iac [place] [address] Transthoracic Echocardiographic Report Patient Name: SHERICE ARMAS H : 1945 (80y 1m) Gender: M Study Date: 04/25/2025 02:48:03 PM Ht(Inch): 66 Wt(Lb): 287.92 BSA: 2.47 Pump Mechanic: Cheryle Oseguera RDCS Location: [facility] Order Provider:KRYSTA ARORA Heart Rate: 65 BMI: [...] LA Length 4C 6.50 cm AI Decel [id number] sec LA Length 2C 6.67 cm AI Decel Slope1.60 m/s2 LA Volume BP 108.13 ml AI AHX786.45 msec LA Volume Index 43.78 ml/m2 [ [...] Asc Ao Index 1.77 cm/m2 MV Decel Xlik612.81 msec [ 104.00 - 258.00 ] Med [...] by: Esteban Hall M.D. Krysta Arora MD [facility]ED[place] Final Resul t * CT Body Outside Reference (03/06/2025 2:10 AM CDT) Impressions [facility] - 03/06/2025 2:10 AM CDT These images are for Reference purposes only and have not been reviewed by [facility]. There will be no report generated by a [facility] Radiologist. Narrative [facility] - 03/06/2025 2:10 AM CDT EXAMINATION: Images For Reference Purposes Only Krysta Arora MD IMG CT PROCEDURES Final Resul t Performing Organization Address [facility] de Phone Number [facility] * XR Outside Reference (03/02/2025 5:06 PM CDT) Impressions [facility] - 03/02/2025 5:06 PM CDT These images are for Reference purposes only and have not been reviewed by [facility]. There will be no report generated by a [facility] Radiologist. Narrative [facility] - 03/02/2025 5:06 PM CDT EXAMINATION: Images For Reference Purposes Only us Krysta Arora MD IMG XR PROCEDURES Final Resul t Performing Organization Address [facility] [place]/[facility] de Phone Number [facility] * XR Outside Reference (03/02/2025 5:05 PM CDT) Impressions [facility] - 03/02/2025 5:05 PM CDT These images are for Reference purposes only and have not been reviewed by [facility]. There will be no report generated by a [facility] Radiologist. Narrative [facility] - 03/02/2025 5:05 PM CDT EXAMINATION: Images For Reference Purposes Only us Krysta Arora MD IMG XR PROCEDURES Final Resul t Performing Organization Address [facility] Co de Phone Number [facility] from Last 3 Months Insurance [employer] MEDICARE GOLD AETNA MEDICARE GOLD [facility] Care Teams Die Reamer Relationship Specialty Start Date End Date Rachelle Freitas DO [address] [facility] [address] [place] [address] [place] [address] PCP - General Family Medicine 03/08/25
--- OUTSIDE RECORDS SUMMARY | 2025-05-23 13:58 | XMS_ITS | Encounter Summary ---
Author Organization [facility] Healthcare Address [address] [place] [address] Care Team Providers Care Field Court Researcher Name Role Phone Rachelle Freitas DO Primary Care Provider +1- [phone] Reason for Visit * Reason Comments Knee Pain Left knee. Had fall while visiting son in [place]. Has progressively been getting worse. New onset of swelling and warm to the touch. Encounter Details Date Type Department Care Team (Late st Contact Info) Description 05/23/2025 12:30 PM CDT Office Visit 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 Had fall while visiting son in [place]. Has progressively been getting worse. New onset of swelling and warm to the touch. ) Pt presents w/ L knee pain x 2 months s/p fall while in [place]. States he had an open cut on [...] Primary documented in this encounter Care Teams Field Court Researcher Relationship Specialty Start Date End Date Rachelle Freitas DO [address] [facility] [address] [address] PCP - General Family Medicine 03/08/25 documented as of this encounter
--- OUTSIDE RECORDS SUMMARY | 2025-05-23 13:58 | XMS_ITS | Clinical Summary ---
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 5 Active simvastatin (ZOCOR) 10 [...] Description 05/23/2025 12:30 PM CDT Office Visit [facility] Medical Group [facility] Care at [address] [phone] Robny Dunn PA Cellulitis of left lower extremity (Primary Dx) 04/25/2025 2:24 PM CDT - 04/25/2025 11:59 PM CDT Hospital Encounter [facility] Cardiac Diagnostic Lab [address] [place] [phone] Krysta Arora MD Aneurysm of the ascending aorta, without rupture Discharge Disposition: Discharge to home or self care 04/25/2025 1:15 PM CDT - 04/25/2025 11:59 PM CDT Hospital Encounter [facility] ([facility]) [address] [place] [address] Krysta Arora MD Aneurysm of the ascending aorta, without rupture Discharge Disposition: Discharge to home or self care 04/11/2025 Orders Only [facility] Cardiothoracic Surgery [address] [place] [address] Advanced Medicine 8th Floor [address] Room [address] [place] [phone] Krysta Arora MD Aneurysm of the ascending aorta, without rupture (Primary Dx) 03/08/2025 11:30 AM CDT Office Visit [facility] Cardiothoracic Surgery [address] [place] [address] Advanced Medicine 8th Floor [address] Room [address] [place] [phone] Krysta Arora MD Aneurysm of the ascending aorta, without rupture 03/06/2025 2:10 AM CDT - 03/06/2025 11:59 PM CDT Hospital Encounter [facility] ([facility]) [address] [place] [address] Discharge Disposition: Discharge to home or self care 03/02/2025 5:06 PM CDT - 03/02/2025 11:59 PM CDT Hospital Encounter [facility] ([facility]) [address] [place] [address] Discharge Disposition: Discharge to home or self care 03/02/2025 5:05 PM CDT - 03/02/2025 11:59 PM CDT Hospital Encounter [facility] ([facility]) [address] [place] [address] Discharge Disposition: Discharge to home or self [...] on file 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 Gender Identity Not on file Sexual Orientation [...] PM CDT Narrative 04/25/2025 5:27 PM CDT [facility] Cardiac [place] [address] Transthoracic Echocardiographic Report Patient Name: SHERICE ARMAS H : 1945 (80y 1m) Gender: M Study Date: 04/25/2025 02:48:03 PM Ht(Inch): 66 Wt(Lb): 287.92 BSA: 2.47 Supplier Quality Engineering Manager: Cheryle Oseguera MARKO Location: [facility] Order Provider: KRYSTA ARORA Heart Rate: [...] LA Length 2C 6.67 cm AI Decel [place] 1.60 m/s2 LA Volume BP 108.13 ml [...] Procedure Note Kd Cisneros MD - 04/25/2025 [facility] Cardiac [place] [address] Transthoracic Echocardiographic Report Patient Name: SHERICE ARMAS H : 1945 (80y 1m) Gender: M Study Date: 04/25/2025 02:48:03 PM Ht(Inch): 66 Wt(Lb): 287.92 BSA: 2.47 Supplier Quality Engineering Manager: Cheryle Oseguera RDCS Location: [facility] Order Provider:KRYSTA ARORA Heart Rate: 65 [...] LA Length 4C 6.50 cm AI Decel [id number] sec LA Length 2C 6.67 cm AI Decel Slope1.60 m/s2 LA Volume BP 108.13 ml AI ZGV351.45 msec LA Volume Index 43.78 ml/m2 [ [...] Asc Ao Index 1.77 cm/m2 MV Decel Dvgq554.81 msec [ 104.00 - 258.00 ] Med [...] Esteban Hall M.D. us Krysta Arora MD [facility] [place] PROCEDURES Final Resul t * CT Body Outside Reference (03/06/2025 2:10 AM CDT) Impressions [facility] - 03/06/2025 2:10 AM CDT These images are for Reference purposes only and have not been reviewed by [facility] Radiology. There will be no report generated by a [facility] Radiologist. Narrative [facility] - 03/06/2025 2:10 AM CDT EXAMINATION: Images For Reference Purposes Only us Krysta Arora MD [facility] [place] PROCEDURES Final Resul t [facility] * XR Outside Reference (03/02/2025 5:06 PM CDT) Impressions [facility] - 03/02/2025 5:06 PM CDT These images are for Reference purposes only and have not been reviewed by [facility]iology. There will be no report generated by a [facility] Radiologist. Narrative [facility] - 03/02/2025 5:06 PM CDT EXAMINATION: Images For Reference Purposes Only Krysta Arora MD IMG XR PROCEDURES Final Resul t Performing Organization Address City/[facility]/ZIP Co de Phone Number [facility] * XR Outside Reference (03/02/2025 5:05 PM CDT) Impressions [facility] - 03/02/2025 5:05 PM CDT These images are for Reference purposes only and have not been reviewed by [facility]iology. There will be no report generated by a [facility] Radiologist. Narrative [facility] - 03/02/2025 5:05 PM CDT EXAMINATION: Images For Reference Purposes Only Krysta Arora MD IMG XR PROCEDURES Final Resul t Performing Organization Address [facility]/[facility] Co de Phone Number [facility] from Last 3 Months Insurance [facility] MEDICARE [facility] T MEDICARE GOLD [facility] REF Care Teams Environmental Lead Relationship Specialty Start Date End Date Rachelle Freitas DO [facility] [address] [place] [address] [place] [address] PCP - General Family Medicine 03/08/25
[2025-05-23 14:09] LABS: INR 1.1; Partial Thromboplastin Time 26.1 Seconds (22.3-36.8); Prothrombin Time 14.8 Seconds (11.1-14.7)
[2025-05-23 14:16] LABS: Alanine Aminotransferase 49 U/L (6-50); Albumin Level 4.2 g/dL (3.5-5.1); Alkaline Phosphatase 45 U/L (38-126); Anion Gap 13 mmol/L (4-12); Aspartate Amino Transferase 48 U/L (17-59); Bilirubin,Total 0.5 mg/dL (0.2-1.3); Blood Urea Nitrogen 20 mg/dL (9-20); CRP 7.9 mg/dL (<1.0); Calcium 10.0 mg/dL (8.4-10.2); Carbon Dioxide 26 mmol/L (22-30); Chloride 97 mmol/L (98-107); Estimated CRCL calculation 48 ml/min; Estimated Glomerular Filt Rate 48; Glucose 216 mg/dL (65-110); Potassium 3.8 mmol/L (3.4-5.0); Sodium 136 mmol/L (137-145); Total Protein 8.6 g/dL (6.3-8.2)
--- NOTE | 2025-05-23 14:58 | PC.NURSE ---
ordered a urine sample. Pt. does not have to urinate at this time. facilities operations technician to bedside to bladder scan pt.
--- NOTE | 2025-05-23 15:24 | PC.NURSE ---
Pt bladder scanned with max amount 281. DONA cochran.
[2025-05-23 16:37] LABS: Add Urine Microscopic? YES; Appearance Urine Clear (Clear); Glucose Urine UA Negative (Negative); Leukocyte Esterase Ur Negative LEU/UL (Negative); Nitrate Urine Negative (Negative); Non Pathogenic Casts 0-2; Specific Grav Ur 1.018 (1.001-1.035)
--- NOTE | 2025-05-23 17:34 | P.HP_ITS ---
H&P: HPI History of Present Illness Date/Time: 05/23/25 17:34 Chief Complaint: Knee Swelling Narrative: 80 y/o M with PMH of DVT, AFib, chronic anticoagulation, AAA, BPH, arthritis, sleep apnea, HLD, HTN, and diabetes presents here with knee swelling. The patient presents here with ongoing left knee swelling. He reports trauma to the left knee on March 30. He reports a fall where he slipped walking down the bleachers hitting his left knee on the concrete. no immediate swelling or tenderness to the knee post fall. He reports the swelling and redness started and progressively worsened over the last week and now has scant drainage. He describes the drainage as clear and more like seepage. Knee is now also warm to the touch and very tender to the touch. He denies fever, chills, body aches, nausea, vomiting, or diarrhea. Of note, he is scheduled for an upcoming aortic aneurysm repair 2 weeks from now. Initial VS at presentation: 98.4? F, HR 86, R 16, 187/107, and 98% on RA. ED workup showed: WBC 12.1, hemoglobin 11.7, INR 1.1, creatinine 1.41 and GFR 48 (1.03 and GFR >60 on 02/06/25), glucose 216, lactic 1.6, CRP 7.9, UA showed 2+ protein otherwise unremarkable. 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 LLE UA negative for DVT. Review of Systems Review of Systems: All systems reviewed & are unremarkable except as noted in HPI and below [facility] Past Medical History Medical History A-fib Type 2 diabetes mellitus with diabetic nephropathy BPH (benign prostatic hyperplasia) SBO (small bowel obstruction) Ascending aortic aneurysm Hypertension Mixed hyperlipidemia Heart murmur Anticoagulant long-term use Hx of deep venous thrombosis (2020) Lower GI bleed Colon cancer screening History of mumps History of measles History of chicken pox Spinal stenosis Arm fracture (1958) Normal colonoscopy (06/29/12) 07/19/2012 Surgical History Surgical History H/O exploratory laparotomy 01/18/25 Exploratory laparotomy, abdominal adhesiolysis. Dr. roberts History of cataract extraction with lens replacement History of tonsillectomy (~1949) Hx of cholecystectomy (1991) H/O nasal septoplasty (1992) Family History Family History Grandparent Diabetes mellitus Hypertension Cerebrovascular accident Father Hypertension Family history of elevated blood lipids, Onset Age: 89 Family history of cardiovascular disease Cerebrovascular accident Mother Family history of elevated blood lipids, Onset Age: 93 Family history of cardiovascular disease Diabetes mellitus Hypertension Cerebrovascular accident Social History Social History Smoking status: Never smoker Alcohol intake: current Drinks per week: 1 Alcohol use details: occasionnally Substance use: never Substance use type: does not use Do You Feel Safe in your Home?: Yes Lack of Transportation: No Lack of Food: Never True Current Housing: I Have Housing Concerned About Future Housing: No Difficulty Paying Gas/Electric Bills: No Difficulty Paying for Meds: YES Currently Unemployed: No Education: Bachelor's Degree Difficulty w/ Childcare or Family Care: No Living arrangements: alone Occupation/Education: retired Gender identity (if verbalized by the patient): Male Spiritual care concerns: No Agree to blood products: Yes Meds Home Medications and Allergies Home Medications ?Medication ?Instructions ?Recorded ?Confirmed ?Type finasteride 5 mg tablet See Rx Instructions .Route 10/30/24 05/23/25 Rx .COMPLEX #90 tabs metformin 1,000 mg tablet 1,000 mg PO BID #180 tabs 12/12/24 05/23/25 Rx simvastatin 10 mg tablet 10 mg PO DAILY #90 tabs 12/12/24 05/23/25 Rx metoprolol succinate 25 mg 25 mg PO DAILY #90 tabs 12/28/24 05/23/25 Rx tablet,extended release 24 hr gabapentin 300 mg capsule See Rx Instructions .Route 01/08/25 05/23/25 Rx .COMPLEX #90 caps amlodipine 10 mg tablet 10 mg BYMOUTH QPM #90 tabs 04/07/25 07/02/25 Rx levothyroxine 25 mcg capsule 25 mcg PO DAILY 03/07/25 05/23/25 History lisinopril 20 See Rx Instructions .Route 03/09/25 05/23/25 Rx mg-hydrochlorothiazide 25 mg tablet .COMPLEX #90 tabs clonidine 0.1 mg/24 hr weekly 1 patch transdermal WEEKLY #4 ea 04/19/25 05/23/25 Rx transdermal patch doxazosin 8 mg tablet See Rx Instructions .Route 05/02/25 05/23/25 Rx .COMPLEX #90 tabs rivaroxaban 20 mg tablet (Xarelto) 20 mg PO DAILY #90 tabs 05/02/25 05/23/25 Rx Allergies Allergy/AdvReac Type Severity Reaction Status Date / Time No Known Drug Allergies Allergy Unknown Verified 05/23/25 18:45 Vital Signs Vital Signs - 24 hr 05/23/25 13:23 05/23/25 14:18 05/23/25 16:31 Temperature 98.4 F Pulse Rate 86 66 80 Respiratory Rate 16 14 18 Blood Pressure 187/107 H 145/76 H 145/83 H Pulse Oximetry 98 97 97 Oxygen Delivery Room Air Room Air Exam Const: General: comfortable and no acute distress Other: , male, obese body habitus, nontoxic appearance HENMT: Face/Nose/Sinus: Normal nares present Mouth: Yes moist mucous membranes Eyes: General: appearance normal, both eyes and all related structures Sclera: sclerae normal Pupils: Equal, round and reactive pupils present EOM: EOMs intact bilaterally Resp: Effort & Inspection: normal respiratory effort Auscultation: clear to auscultation bilaterally Cardio: Rate: regular rate Rhythm: regular rhythm Other: S1-S2 present without murmur, rub, ectopy GI: Other: Abdomen soft, nondistended, nontender. Normoactive bowel sounds in all quadrants. Skin: General skin exam: normal color and no rashes or lesions noted Other: soft ball size swelling to the left knee with extreme tenderness with palpation. +painful ROM. scant clear drainage from knee. Neuro: Speech: normal speech Motor exam (neuro): 5/5 motor strength present throughout Sensory Exam: normal sensation Other: A&O x4 Extrem: Other: 2+ pitting edema to BLE with woody appea marion. Psych: Mental Status: mental status grossly normal Affect: normal affect Other: Good insight and judgment, pleasant H&P: Results Labs Labs: Short CBC 05/23/25 Range/Units 13:45 WBC 12.1 H (4.5-10.0) K/mm3 Hgb 11.7 L (14.0-18.0) g/dL Hct 36.8 L (42.0-52.0) % Plt Count 287 (150-375) k/mm3 BMP 05/23/25 13:45 Sodium 136 L Potassium 3.8 Chloride 97 L Carbon Dioxide 26 BUN 20 Creatinine 1.41 H Glucose 216 H Calcium 10.0 Liver Function 05/23/25 Range/Units 13:45 Total Bilirubin 0.5 (0.2-1.3) mg/dL AST 48 (17-59) U/L ALT 49 (6-50) U/L Alkaline Phosphatase 45 (38-126) U/L Albumin 4.2 (3.5-5.1) g/dL Urine 05/23/25 Range/Units 16:23 Urine Color Yellow (Yellow) Urine Appearance Clear (Clear) Urine pH 5.5 (5.0-9.0) Ur Specific [place] 1.018 (1.001-1.035) Urine Protein 2+ H (Negative) mg/dL Urine Glucose (UA) Negative (Negative) mg/dL Assessment and Plan Assessment and plan (1) Septic bursitis: Code(s): M71.10 - Other infective bursitis, unspecified site Status: Acute Assessment and Plan: - Knee CT: 1. 10 x 9.6 x 5.2 cm organized anterolateral prepatellar fluid collection which in the setting of trauma most consistent with a hematoma. Differential would include bursitis on the positioning is more lateral and cephalad than typical or abscess in the appropriate clinical setting. 2. 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 3. Likely vertical radial versus parrot beak configuration tear of the posterior horn of the medial meniscus although specificity is lower than with MRI which could be obtained as clinically indicated for more definitive determination. - US LLE: negative for DVT - orthopedist consulted - started on Ancef and Vancomycin on 05/23 - hold Xarelto in case of need for procedure and make NPO at midnight - analgesics prn: Tylenol, Coggon, Morphine - antiemetic p.r.n. 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 insulin use: without senior care use Qualified Code(s): E11.21 - Type 2 diabetes mellitus with diabetic nephropathy Code(s): E11.21 - Type 2 diabetes mellitus with diabetic nephropathy Status: Chronic Assessment and Plan: - hypoglycemia protocol - POC blood glucose ACHS - home medication: hold metformin in cased of need for contrast - correct regimen ordered - high dose TIDWM, based off BMI - A1C 7.9% in Aug, update (3) A-fib: Qualifiers: Atrial fibrillation type: unspecified Qualified Code(s): I48.91 - Unspecified atrial fibrillation Code(s): I48.91 - Unspecified atrial fibrillation Status: Chronic Assessment and Plan: - initial EKG shows sinus rhythm with first-degree AV block - continue metoprolol XL. Hold Xarelto in case of need for procedure. (4) Hypertension: Qualifiers: Hypertension type: primary hypertension Qualified Code(s): I10 - Essential (primary) hypertension Code(s): I10 - Essential (primary) hypertension Status: Chronic Assessment and Plan: - chronic, currently 153/86 - continue home medications: amlodipine, clonidine, cardura, lisinopril-HCTZ - monitor Plan Diet: Heart healthy, NPO midnight GI Prophylaxis: not currently indicated DVT Prophylaxis: SCDs, hold Xarelto IV fluids: none Lines/Tubes: peripheral IV Code Status: full code Quality VTE Prophylaxis VTE prophylaxis: mechanical ordered Hospitalist [facility] Advance Care Plan I have confirmed that the patient's Advanced Care Plan is present, code status is documented, or surrogate decision maker is listed in patient medical record.: Yes Medication Reconciliation I have utilized all available resources to obtain, update and review the patients current medications (includes all prescriptions, OTC, herbals, cannabis, and nutritional supplements).: Yes
[2025-05-23] MEDS: ceFAZolin 2 GM/D5W 50 ML 2 GM/50 ML BAG IVPB (17:35)
[2025-05-23] MEDS: VANCOMYCIN 1,250 MG/NS 250 ML 1,250 MG/250 ML BAG 166.67 MG IVPB ×2 (17:50→20:54)
--- NOTE | 2025-05-23 18:38 | ADMGEN ---
This patient, Yash Aguirre, was admitted to 2 Medical Room 259-. Patient/family oriented to hospital policies and general routines including ID bracelet, bed and alarms, visiting hours, pain management, procedures, bathroom and other care routines, personal items, smoking policy, room service/diet, and visiting hours. Information on how to activate the Rapid Response Team has been discussed. Patient/Family are encouraged to report perceived risks to care and to ask questions if they do not understand what they are told or what they should do.
--- NOTE | 2025-05-23 19:36 | PC.NURSE ---
pt unsure of home med list and dosages, uses [facility] in [place], we will place a call to pharmacy to confirm
[2025-05-24 04:43] VITALS: BP 139/84; PULSE 96; RESP 18; TEMP 36.9; O2SAT 97
[2025-05-24] MEDS: ceFAZolin 2 GM/D5W 50 ML 2 GM/50 ML BAG IVPB ×2 (05:14→17:32)
[2025-05-24 05:32] LABS: Hematocrit 36.5 % (42.0-52.0); Hemoglobin 11.6 g/dL (14.0-18.0); Immature Granulocyte Percent A 1.3 % (0-0.5); Lymphocytes Absolute Auto 1.42 K/mm3 (0.9-3.2); Mean Corpuscular HGB Conc 31.8 g/dl (32-36); Mean Corpuscular Hemoglobin 27.0 pg (26-34); Mean Corpuscular Volume 85.1 fl (80-100); Nucleated Red Blood Cells Absolute Auto 0.000 K/mm3 (0.0-0.012); Nucleated Red Blood Cells Perc 0.0 % (0.0-0.2); Platelet Count Result 314 k/mm3 (150-375); Red Blood Count 4.29 M/mm3 (4.6-6.20); White Blood Count 12.7 K/mm3 (4.5-10.0)
[2025-05-24 05:42] LABS: INR 1.1; Prothrombin Time 14.7 Seconds (11.1-14.7)
[2025-05-24 05:43] LABS: Anion Gap 12 mmol/L (4-12); Blood Urea Nitrogen 21 mg/dL (9-20); Calcium 9.5 mg/dL (8.4-10.2); Carbon Dioxide 24 mmol/L (22-30); Chloride 100 mmol/L (98-107); Estimated CRCL calculation 43 ml/min; Estimated Glomerular Filt Rate 44; Glucose 170 mg/dL (65-110); Partial Thromboplastin Time 27.4 Seconds (22.3-36.8); Potassium 3.8 mmol/L (3.4-5.0); Sodium 136 mmol/L (137-145)
[2025-05-24 06:04] LABS: Hemoglobin A1C 7.1 % (<5.7)
--- NOTE | 2025-05-24 07:26 | PM.IMPN ---
Progress Note: A&P Assessment and Plan (1) Septic bursitis: Code(s): M71.10 - Other infective bursitis, unspecified site Status: Acute Assessment and Plan: Knee CT: 10 x 9.6 x 5.2 cm organized anterolateral prepatellar fluid collection which in the setting of trauma most consistent with a hematoma. Differential would include bursitis on the positioning is more lateral and cephalad than typical or abscess in the appropriate clinical setting. 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 Likely vertical radial versus parrot beak configuration tear of the posterior horn of the medial meniscus although specificity is lower than with MRI which could be obtained as clinically indicated for more definitive determination. US LLE: negative for DVT Started on Ancef and Vancomycin on 05/23 Hold Xarelto in case of need for procedure and make NPO at midnight Analgesics prn: Tylenol, [place], Morphine Antiemetic p.r.n. 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 Qualified Code(s): E11.21 - Type 2 diabetes mellitus with diabetic nephropathy Code(s): E11.21 - Type 2 diabetes mellitus with diabetic nephropathy Status: Chronic Assessment and Plan: Hypoglycemia protocol POC blood glucose ACHS Home medication: hold metformin in cased of need for contrast Correct regimen ordered - high dose TIDWM, based off BMI A1C 7.9% in Aug, update 05/24: A1c 7.1% (3) A-fib: Qualifiers: Atrial fibrillation type: unspecified Qualified Code(s): I48.91 - Unspecified atrial fibrillation Code(s): I48.91 - Unspecified atrial fibrillation Status: Chronic Assessment and Plan: - initial EKG shows sinus rhythm with first-degree AV block - continue metoprolol XL. Hold Xarelto in case of need for procedure. - stable (4) Hypertension: Qualifiers: Hypertension type: primary hypertension Qualified Code(s): I10 - Essential (primary) hypertension Code(s): I10 - Essential (primary) hypertension Status: Chronic Assessment and Plan: - chronic, currently 153/86 - continue home medications: amlodipine, clonidine, cardura, lisinopril-HCTZ - monitor Plan Diet: Heart healthy, NPO midnight GI Prophylaxis: not currently indicated DVT Prophylaxis: SCDs, hold Xarelto IV fluids: none Lines/Tubes: peripheral IV Code Status: full code Subjective Date/time seen: 05/24/25 07:26 Interval history: 80 y/o M with PMH of DVT, AFib, chronic anticoagulation, AAA, BPH, arthritis, sleep apnea, HLD, HTN, and diabetes presents here with knee swelling. The patient presents here with ongoing left knee swelling. 05/24/2025 Patient sitting comfortably at beside at time of exam. Denies any CP, SOB, n/v, abdominal pain at this time. Ortho consulted, plan for aspiration left knee today. Will determine further plan of care pending results of synovial tissue. No other comments or concerns. Review of Systems Review of Systems: All systems reviewed & are unremarkable except as noted in HPI and below Exam Narrative: soft ball size swelling to the left knee with extreme tenderness with palpation. +painful ROM. scant clear drainage from knee. 2+ pitting edema to BLE with woody appearance. benign exam otherwise. Const: General: comfortable and no acute distress Other: , male, obese body habitus, nontoxic appearance HENMT: Face/Nose/Sinus: Normal nares present Mouth: Yes moist mucous membranes Eyes: General: appearance normal, both eyes and all related structures Sclera: sclerae normal Pupils: Equal, round and reactive pupils present EOM: EOMs intact bilaterally Resp: Effort & Inspection: normal respiratory effort Auscultation: clear to auscultation bilaterally Cardio: Rate: regular rate Rhythm: regular rhythm Other: S1-S2 present without murmur, rub, ectopy GI: Other: Abdomen soft, nondistended, nontender. Normoactive bowel sounds in all quadrants. Skin: General skin exam: normal color and no rashes or lesions noted Other: soft ball size swelling to the left knee with extreme tenderness with palpation. +painful ROM. scant clear drainage from knee. Neuro: Cranial nerves: Yes Equal, round and reactive pupils present Speech: normal speech Motor exam (neuro): 5/5 motor strength present throughout Sensory Exam: normal sensation Other: A&O x4 Extrem: Other: 2+ pitting edema to BLE with woody appearance. Psych: Mental Status: mental status grossly normal Affect: normal affect Other: Good insight and judgment, pleasant Objective Data Vital Signs Vital Signs: Vital Signs - 24 hr 05/23/25 13:23 05/23/25 14:18 05/23/25 16:31 Temperature 98.4 F Pulse Rate 86 66 80 Respiratory Rate 16 14 18 Blood Pressure 187/107 H 145/76 H 145/83 H Pulse Oximetry 98 97 97 Oxygen Delivery Room Air Room Air 05/23/25 17:51 05/23/25 19:02 05/23/25 19:03 Temperature 98.1 F 97.7 F Pulse Rate 82 79 86 Respiratory Rate 18 18 16 Blood Pressure 153/86 H 178/66 H 132/58 L Pulse Oximetry 98 97 97 Oxygen Delivery 05/23/25 20:33 05/23/25 20:45 05/24/25 04:43 Temperature 98.1 F 98.5 F Pulse Rate 82 96 Respiratory Rate 17 18 Blood Pressure 147/59 H 139/84 Pulse Oximetry 96 97 Oxygen Delivery Room Air Intake/Output Intake/Output: Intake & Output 05/21/25 05/22/25 05/23/25 05/24/25 23:59 23:59 23:59 23:59 Intake Total 550 50 Balance 550 50 Meds/Results Medications: Active Medications Generic Name Dose Route Start Last Admin Trade Name Freq PRN Reason Stop Dose Admin Acetaminophen 650 mg 05/23/25 17:23 Acetaminophen 325 Mg Tablet PO Q4H PRN Mild Pain (1-3) or Fever Hydrocodone Bitart/Acetaminophen 1 tab 05/23/25 17:23 Hydrocodone/Acetaminophen (*Crx) 5-325 Mg Tablet PO Q4H PRN Pain Rated 4-6 Amlodipine Besylate 10 mg 05/23/25 23:15 05/23/25 23:24 Amlodipine Besylate 10 Mg Tablet BY MOUTH 10 mg QHS AUGUSTINE Administration Clonidine HCl 1 patch 05/25/25 09:00 Clonidine 0.1 Mg/24 Hr Patch TRANSDERM WEEKLY [facility] Dextrose 12.5 gm 05/23/25 18:08 Dextrose 50% 25 Gm/50 Ml Syringe IV PUSH PRN PRN Hypoglycemia Protocol Doxazosin Mesylate 4 mg 05/24/25 09:00 Doxazosin Mesylate 4 Mg Tablet PO DAILY [facility] Finasteride 5 mg 05/24/25 09:00 Finasteride 5 Mg Tablet PO DAILY [facility] Gabapentin 300 mg 05/24/25 09:00 Gabapentin 300 Mg Capsule PO BID [facility] Glucagon 1 mg 05/23/25 18:08 Glucagon For Inj 1 Mg Vial IM PRN PRN Hypoglycemia Protocol Glucose 15 gm 05/23/25 18:08 Glucose Oral Gel 15 Gm Of Glucse In 37.5 Gm Tube PO PRN PRN Hypoglycemia Protocol Hydrochlorothiazide 25 mg 05/24/25 09:00 Hydrochlorothiazide 25 Mg Tablet PO QAM [facility] Cefazolin Sodium 2 gm in 50 mls @ 100 mls/hr 05/24/25 06:00 05/24/25 05:44 Ancef 2 Gm/D5w 50 Ml IVPB Infused Q12H [facility] Infusion Dextrose 1,000 mls @ 100 mls/hr 05/23/25 18:08 Dextrose 5% 1,000 Ml IVPB PRN PRN Hypoglycemia Protocol Vancomycin HCl 1,500 mg in 500 mls @ 250 mls/hr 05/24/25 18:00 Vancomycin 1,500 Mg/Ns 500 Ml IVPB Q24H [facility] Insulin Aspart 4 - 8 units 05/24/25 08:00 Insulin Aspart (*Bkc) 100 Units/Ml SUB-Q TIDWM [facility] Protocol Levothyroxine Sodium 25 mcg 05/24/25 06:30 05/24/25 06:23 Levothyroxine Sodium 25 Mcg Tablet PO Not Given DAILY@0630 [facility] Lisinopril 20 mg 05/24/25 09:00 Lisinopril 20 Mg Tablet PO QAM [facility] Metoprolol Succinate 25 mg 05/24/25 09:00 Metoprolol Succinate Ext Rel 25 Mg Tabcr PO DAILY [facility] Morphine Sulfate 2 mg 05/23/25 17:23 Morphine Sulfate (*Crx) 2 Mg/Ml Inj IV PUSH Q2H PRN Pain Rated 7-10 Ondansetron HCl 4 mg 05/23/25 17:23 Ondansetron Inj 4 Mg/2 Ml Vial IV PUSH Q4H PRN Nausea Rivaroxaban 20 mg 05/24/25 17:00 Rivaroxaban 20 Mg Tablet PO DAILY@1700 [facility] Simvastatin 10 mg 05/24/25 09:00 Simvastatin 10 Mg Tablet PO DAILY [facility] Radiology Results: ITS Impressions Venous Doppler Study 05/23/25 15:18 IMPRESSION: Negative left lower extremity venous US. No deep vein thrombosis. Knee CT 05/23/25 15:39 IMPRESSION: 1. 10 x 9.6 x 5.2 cm organized anterolateral prepatellar fluid collection which in the setting of trauma most consistent with a hematoma. Differential would include bursitis on the positioning is more lateral and cephalad than typical or abscess in the appropriate clinical setting. 2. 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 2. Likely vertical radial versus parrot beak configuration tear of the posterior horn of the medial meniscus although specificity is lower than with MRI which could be obtained as clinically indicated for more definitive determination. Labs Labs: Laboratory Results - last 24 hr 05/23/25 05/23/25 05/23/25 13:45 16:23 20:30 WBC 12.1 H RBC 4.30 L Hgb 11.7 L Hct 36.8 L MCV 85.6 MCH 27.2 MCHC 31.8 L RDW 12.9 Plt Count 287 MPV 9.2 Immature Gran % (Auto) 1.2 H Neut % (Auto) 75.9 H Lymph % (Auto) 10.7 L [place] % (Auto) 8.8 H Eos % (Auto) 3.1 Baso % (Auto) 0.3 Lymph # (Auto) 1.29 [place] # (Auto) 1.1 H Eos # (Auto) 0.4 H Baso # (Auto) 0.0 Abs Immat Gran (auto) 0.14 H Absolute Neuts (auto) 9.2 H Absolute Nucleated RBC 0.000 Nucleated RBC % 0.0 PT 14.8 H INR 1.1 APTT 26.1 Sodium 136 L Potassium 3.8 Chloride 97 L Carbon Dioxide 26 Anion Gap 13 H BUN 20 Creatinine 1.41 H Estim Creat Clear Calc 48 Estimated GFR 48 L Glucose 216 H POC Capillary Glucose 209 H Hemoglobin A1c Lactic Acid 1.6 Calcium 10.0 Total Bilirubin 0.5 AST 48 ALT 49 Alkaline Phosphatase 45 C-Reactive Protein 7.9 H Total Protein 8.6 H Albumin 4.2 Urine Color Yellow Urine Appearance Clear Urine pH 5.5 Ur Specific [place] 1.018 Urine Protein 2+ H Urine Glucose (UA) Negative Urine Ketones Negative Ur Blood (Man) Negative Urine Nitrate Negative Urine Bilirubin Negative Urine Urobilinogen 1.0 Leukocyte Esterase Rfl Negative Urine RBC 0-2 Urine WBC 0-5 Ur Squamous Epith Cells None seen Urine Bacteria None seen Urine Casts 0-2 05/24/25 05:08 WBC 12.7 H RBC 4.29 L Hgb 11.6 L Hct 36.5 L MCV 85.1 MCH 27.0 MCHC 31.8 L RDW 13.0 Plt Count 314 MPV 9.6 Immature Gran % (Auto) 1.3 H Neut % (Auto) 74.7 H Lymph % (Auto) 11.2 L [place] % (Auto) 9.8 H Eos % (Auto) 2.5 Baso % (Auto) 0.5 Lymph # (Auto) 1.42 [place] # (Auto) 1.2 H Eos # (Auto) 0.3 Baso # (Auto) 0.1 Abs Immat Gran (auto) 0.16 H Absolute Neuts (auto) 9.5 H Absolute Nucleated RBC 0.000 Nucleated RBC % 0.0 PT 14.7 INR 1.1 APTT 27.4 Sodium 136 L Potassium 3.8 Chloride 100 Carbon Dioxide 24 Anion Gap 12 BUN 21 H Creatinine 1.53 H Estim Creat Clear Calc 43 Estimated GFR 44 L Glucose 170 H POC Capillary Glucose Hemoglobin A1c 7.1 H Lactic Acid Calcium 9.5 Total Bilirubin AST ALT Alkaline Phosphatase C-Reactive Protein Total Protein Albumin Urine Color Urine Appearance Urine pH Ur Specific [place] Urine Protein Urine Glucose (UA) Urine Ketones Ur Blood (Man) Urine Nitrate Urine Bilirubin Urine Urobilinogen Leukocyte Esterase Rfl Urine RBC Urine WBC Ur Squamous Epith Cells Urine Bacteria Urine Casts Quality VTE Prophylaxis VTE prophylaxis: mechanical ordered
--- NOTE | 2025-05-24 09:43 | PM.CNOR ---
Assessment and Plan Assessment and plan (1) Septic bursitis: Code(s): M71.10 - Other infective bursitis, unspecified site <SILKE Jamison - Last Filed: 05/24/25 13:34> Status: Acute <SILKE Jamison - Last Filed: 05/24/25 13:34> Assessment and Plan: History, exam, radiographs, CT scan reviewed with the patient. Large left knee prepatellar swelling with surrounding erythema. Discussed condition, nature, etiology and course of natural history. Conservative and operative treatment options reviewed as well as the risks and benefits of each. Recommended aspiration of the left knee at this time for cell count, stat Gram stain and aerobe again anaerobic culture. Patient verbalized understanding agrees with plan of care. The risks of injection were reviewed including but not limited to skin color changes, atrophy of the soft tissue, tendon or soft tissue rupture, joint degeneration, hyper inflammatory response, allergic reaction, continued pain or dysfunction. Specific risks of the procedure including deep infection or soft tissue rupture or recurrence of symptoms reviewed. No guarantees were offered. The patient understands the need for possible further treatment. Plan: Left Knee Aspiration See Procedure notes for details. Will determine further plan of care pending results of synovial tissue. <SILKE Jamison - Last Filed: 05/24/25 13:34> History, exam, radiographs, CT scan reviewed with the patient. Large left knee prepatellar swelling with surrounding erythema. Discussed condition, nature, etiology and course of natural history. Conservative and operative treatment options reviewed as well as the risks and benefits of each. Recommended aspiration of the left knee at this time for cell count, stat Gram stain and aerobe again anaerobic culture. Patient verbalized understanding agrees with plan of care. The risks of injection were reviewed including but not limited to skin color changes, atrophy of the soft tissue, tendon or soft tissue rupture, joint degeneration, hyper inflammatory response, allergic reaction, continued pain or dysfunction. Specific risks of the procedure including deep infection or soft tissue rupture or recurrence of symptoms reviewed. No guarantees were offered. The patient understands the need for possible further treatment. Plan: Left Knee Aspiration See Procedure notes for details. Will determine further plan of care pending results of synovial fluid analysis. <Sandip Clayton MD - Last Filed: 05/24/25 13:44> (2) Patellar bursitis of left knee: Code(s): M70.52 - Other bursitis of knee, left knee <SILKE Jamison - Last Filed: 05/24/25 13:34> Status: Acute <SILKE Jamison - Last Filed: 05/24/25 13:34> Assessment and Plan: Guidobing: Patient seen and examined. CT scan reviewed. Knee x-ray pending. Discussed with Isael EDOUARD. I agree with consult findings and plan. Left knee aspirate. Will proceed based on fluid results. <Sandip Clayton MD - Last Filed: 05/24/25 13:44> Assessment and Plan: Reviewed history, exam, radiographs and current labs with attending MD and covering surgeon, Dr. Clayton, who agrees with current plan as indicated above. No further recommendations from Dr. Clayton at this time. <SILKE Jamison - Last Filed: 05/24/25 13:34> History of Present Illness HPI Consult date: 05/24/25 <SILKE Jamison - Last Filed: 05/24/25 13:34> 05/24/25 <Sandip Clayton MD - Last Filed: 05/24/25 13:44> Chief complaint: septic bursitis,prepatellar bursitis <SILKE Jamison - Last Filed: 05/24/25 13:34> Narrative: 80-year-old male admitted due to left knee swelling and pain. He reports trauma 2 months ago where he fell slipping down bleachers on the left knee and reported post injury abrasions. He notes a 1 week onset of increased redness, warmth and swelling of the left knee. This prompted his arrival to the emergency room. A CT of the left knee revealed a prepatellar fluid collection as well as underlying degenerative changes. Radiographs confirm the same. Orthopedic consult requested. <SILKE Jamison - Last Filed: 05/24/25 13:34> Review of Systems Review of Systems: All systems reviewed & are unremarkable except as noted in HPI and below <SILKE Jamison - Last Filed: 05/24/25 13:34> Constitutional: Constitutional: Denies fever(s) <Sandip Clayton MD - Last Filed: 05/24/25 13:44> Eyes: Eyes: Denies blurry vision <Sandip Clayton MD - Last Filed: 05/24/25 13:44> ENT: Reports Normal hearing present <Sandip Clayton MD - Last Filed: 05/24/25 13:44> Cardiovascular: Cardiovascular: Denies chest pain and Denies dyspnea <Sandip Clayton MD - Last Filed: 05/24/25 13:44> Respiratory: Respiratory: Denies dyspnea and Denies wheezing <Sandip Clayton MD - Last Filed: 05/24/25 13:44> Gastrointestinal: Gastrointestinal: Denies abdominal pain <Sandip Clayton MD - Last Filed: 05/24/25 13:44> Genitourinary: Genitourinary: Denies urinary urgency <Sandip Clayton MD - Last Filed: 05/24/25 13:44> Musculoskeletal: Musculoskeletal: Reports as per HPI and Denies numbness <Sandip Clayton MD - Last Filed: 05/24/25 13:44> Integumentary/Breasts: Skin/Breast: Denies changing lesions and Denies sores <Sandip Clayton MD - Last Filed: 05/24/25 13:44> Neurologic: Reports Normal hearing present, Denies behavioral changes, Denies confusion, Denies numbness and Denies convulsions <Sandip Clayton MD - Last Filed: 05/24/25 13:44> Psychiatric: Psychiatric: Denies behavioral changes, Denies confusion and Denies hallucinations <Sandip Clayton MD - Last Filed: 05/24/25 13:44> Endocrine: Endocrine: Denies heat intolerance <Sandip Clayton MD - Last Filed: 05/24/25 13:44> Hematologic/Lymphatic: Hematologic/Lymphatic: Denies easy bleeding <Sandip Clayton MD - Last Filed: 05/24/25 13:44> Allergic/Immunologic: Allergic/Immunologic: Denies wheezing <Sandip Clayton MD - Last Filed: 05/24/25 13:44> [facility] Past Medical History Medical History: Medical History (Updated 05/24/25 @ 13:42 by Sandip Clayton MD) Patellar bursitis of left knee A-fib Type 2 diabetes mellitus with diabetic nephropathy BPH (benign prostatic hyperplasia) SBO (small bowel obstruction) Ascending aortic aneurysm Hypertension Mixed hyperlipidemia Heart murmur Anticoagulant long-term use Hx of deep venous thrombosis (2020) Lower GI bleed Colon cancer screening History of mumps History of measles History of chicken pox Spinal stenosis Arm fracture (1958) Normal colonoscopy (06/29/12) 07/19/2012 <SILKE Jamison - Last Filed: 05/24/25 13:34> Surgical History Surgical History: Surgical History H/O exploratory laparotomy 01/18/25 Exploratory laparotomy, abdominal adhesiolysis. Dr. roberts History of cataract extraction with lens replacement History of tonsillectomy (~1948) Hx of cholecystectomy (1991) H/O nasal septoplasty (1992) <SILKE Jamison - Last Filed: 05/24/25 13:34> Family History Family History: Family History Grandparent Diabetes mellitus Hypertension Cerebrovascular accident Father Hypertension Family history of elevated blood lipids, Onset Age: 89 Family history of cardiovascular disease Cerebrovascular accident Mother Family history of elevated blood lipids, Onset Age: 93 Family history of cardiovascular disease Diabetes mellitus Hypertension Cerebrovascular accident <SILKE Jamison - Last Filed: 05/24/25 13:34> Social History Social History: Social History Smoking status: Never smoker Alcohol intake: current Drinks per week: 1 Alcohol use details: occasionnally Substance use: never Substance use type: does not use Do You Feel Safe in your Home?: Yes Lack of Transportation: No Lack of Food: Never True Current Housing: I Have Housing Concerned About Future Housing: No Difficulty Paying Gas/Electric Bills: No Difficulty Paying for Meds: YES Currently Unemployed: No Education: Bachelor's Degree Difficulty w/ Childcare or Family Care: No Living arrangements: alone Occupation/Education: retired Gender identity (if verbalized by the patient): Male Spiritual care concerns: No Agree to blood products: Yes <SILKE Jamison - Last Filed: 05/24/25 13:34> Meds Home Medications and Allergies Home medications: Home Medications ?Medication ?Instructions ?Recorded ?Confirmed ?Type finasteride 5 mg tablet See Rx Instructions .Route 10/30/24 05/23/25 Rx .COMPLEX #90 tabs metformin 1,000 mg tablet 1,000 mg PO BID #180 tabs 12/12/24 05/23/25 Rx simvastatin 10 mg tablet 10 mg PO DAILY #90 tabs 12/12/24 05/23/25 Rx metoprolol succinate 25 mg 25 mg PO DAILY #90 tabs 12/28/24 05/23/25 Rx tablet,extended release 24 hr gabapentin 300 mg capsule See Rx Instructions .Route 01/08/25 05/23/25 Rx .COMPLEX #90 caps amlodipine 10 mg tablet 10 mg BYMOUTH QPM #90 tabs 02/26/25 05/23/25 Rx levothyroxine 25 mcg capsule 25 mcg PO DAILY 03/07/25 05/23/25 History lisinopril 20 See Rx Instructions .Route 03/09/25 05/23/25 Rx mg-hydrochlorothiazide 25 mg tablet .COMPLEX #90 tabs clonidine 0.1 mg/24 hr weekly 1 patch transdermal WEEKLY #4 ea 04/19/25 05/23/25 Rx transdermal patch doxazosin 8 mg tablet See Rx Instructions .Route 05/02/25 05/23/25 Rx .COMPLEX #90 tabs rivaroxaban 20 mg tablet (Xarelto) 20 mg PO DAILY #90 tabs 05/02/25 05/23/25 Rx <SILKE Jamison - Last Filed: 05/24/25 13:34> Allergies/Adverse reactions: Allergies Allergy/AdvReac Type Severity Reaction Status Date / Time No Known Drug Allergies Allergy Unknown Verified 05/23/25 18:45 <SILKE Jamison - Last Filed: 05/24/25 13:34> Vital Signs Vital Signs - 24 hr 05/23/25 13:23 05/23/25 14:18 05/23/25 16:31 Temperature 36.9 C Pulse Rate 86 66 80 Respiratory Rate 16 14 18 Blood Pressure 187/107 H 145/76 H 145/83 H Pulse Oximetry 98 97 97 Oxygen Delivery Room Air Room Air 05/23/25 17:51 05/23/25 19:02 05/23/25 19:03 Temperature 36.7 C 36.5 C Pulse Rate 82 79 86 Respiratory Rate 18 18 16 Blood Pressure 153/86 H 178/66 H 132/58 L Pulse Oximetry 98 97 97 Oxygen Delivery 05/23/25 20:33 05/23/25 20:45 05/24/25 04:43 Temperature 36.7 C 36.9 C Pulse Rate 82 96 Respiratory Rate 17 18 Blood Pressure 147/59 H 139/84 Pulse Oximetry 96 97 Oxygen Delivery Room Air <THERESA JamisonP - Last Filed: 05/24/25 13:34> Exam Const: General: comfortable and no acute distress <Patt Butterfield [facility] - Last Filed: 05/24/25 13:34> Nutritional Appearance: obese <Patt Butterfield [facility] - Last Filed: 05/24/25 13:34> HENMT: Mouth: Yes moist mucous membranes <Patt Butterfield [facility] - Last Filed: 05/24/25 13:34> Eyes: General: appearance normal, both eyes and all related structures <Patt Butterfield [facility] - Last Filed: 05/24/25 13:34> Neck: Neck: supple and no JVD <Patt Butterfield [facility] - Last Filed: 05/24/25 13:34> Resp: Effort & Inspection: normal respiratory effort <Patt Butterfield [facility] - Last Filed: 05/24/25 13:34> Cardio: Rate: regular rate <Patt Butterfield [facility] - Last Filed: 05/24/25 13:34> Rhythm: regular rhythm <Patt Butterfield [facility] - Last Filed: 05/24/25 13:34> GI: Inspection: non-distended <THERESA JamisonP - Last Filed: 05/24/25 13:34> GI Palp: Yes Soft to palpation and No Tenderness to palpation present (GI) <Patt SILKE Avendaño - Last Filed: 05/24/25 13:34> Neuro: General: gait normal <Patt SILKE Avendaño - Last Filed: 05/24/25 13:34> Cognition (Neuro): normal cognition <Patt Anu Butterfield [employer] - Last Filed: 05/24/25 13:34> Speech: normal speech <PattSILKE Villegas - Last Filed: 05/24/25 13:34> Extrem: Left lower extremity: knee Details: normal to inspection, tenderness, swelling Location: of the patella, abnormal ROM Details: pain with active ROM Details: with extension and with flexion and pain with passive ROM Details: with extension and with flexion, abrasion, ecchymosis and warmth, lower leg Details: normal to inspection, ankle Details: normal to inspection, no edema and normal ROM; no tenderness and foot Details: normal capillary refill, normal to inspection and toes with normal ROM; no tenderness <Patt SILKE Avendaño - Last Filed: 05/24/25 13:34> Psych: Mental Status: mental status grossly normal <Patt SILKE Avendaño - Last Filed: 05/24/25 13:34> Affect: normal affect <PattSILKE Villegas - Last Filed: 05/24/25 13:34> Results Labs Result Diagrams: 05/24/25 05:08 05/24/25 05:08 <PattSILKE Villegas - Last Filed: 05/24/25 13:34> Labs: Abnormal lab results 05/23/25 05/23/25 05/23/25 Range/Units 13:45 16:23 20:30 WBC 12.1 H (4.5-10.0) K/mm3 RBC 4.30 L (4.6-6.20) M/mm3 Hgb 11.7 L (14.0-18.0) g/dL Hct 36.8 L (42.0-52.0) % MCHC 31.8 L (32-36) g/dl Immature Gran % (Auto) 1.2 H (0-0.5) % Neut % (Auto) 75.9 H (45.5-73.1) % Lymph % (Auto) 10.7 L (18.3-44.2) % [place] % (Auto) 8.8 H (2.6-8.5) % [place] # (Auto) 1.1 H (0.1-0.6) K/mm3 Eos # (Auto) 0.4 H (0-0.3) K/mm3 Abs Immat Gran (auto) 0.14 H (0.00-0.031) K/mm3 Absolute Neuts (auto) 9.2 H (1.3-6.7) K/mm3 PT 14.8 H (11.1-14.7) Seconds Sodium 136 L (137-145) mmol/L Chloride 97 L (98-107) mmol/L Anion Gap 13 H (4-12) mmol/L BUN (9-20) mg/dL Creatinine 1.41 H (0.7-1.3) mg/dL Estimated GFR 48 L (59 - ) Glucose 216 H (65-110) mg/dL POC Capillary Glucose 209 H (65-105) mg/dl Hemoglobin A1c (<5.7) % C-Reactive Protein 7.9 H (<1.0) mg/dL Total Protein 8.6 H (6.3-8.2) g/dL Urine Protein 2+ H (Negative) mg/dL 05/24/25 05/24/25 Range/Units 05:08 08:41 WBC 12.7 H (4.5-10.0) K/mm3 RBC 4.29 L (4.6-6.20) M/mm3 Hgb 11.6 L (14.0-18.0) g/dL Hct 36.5 L (42.0-52.0) % MCHC 31.8 L (32-36) g/dl Immature Gran % (Auto) 1.3 H (0-0.5) % Neut % (Auto) 74.7 H (45.5-73.1) % Lymph % (Auto) 11.2 L (18.3-44.2) % [place] % (Auto) 9.8 H (2.6-8.5) % [place] # (Auto) 1.2 H (0.1-0.6) K/mm3 Eos # (Auto) (0-0.3) K/mm3 Abs Immat Gran (auto) 0.16 H (0.00-0.031) K/mm3 Absolute Neuts (auto) 9.5 H (1.3-6.7) K/mm3 PT (11.1-14.7) Seconds Sodium 136 L (137-145) mmol/L Chloride (98-107) mmol/L Anion Gap (4-12) mmol/L BUN 21 H (9-20) mg/dL Creatinine 1.53 H (0.7-1.3) mg/dL Estimated GFR 44 L (59 - ) Glucose 170 H (65-110) mg/dL POC Capillary Glucose 173 H (65-105) mg/dl Hemoglobin A1c 7.1 H (<5.7) % C-Reactive Protein (<1.0) mg/dL Total Protein (6.3-8.2) g/dL Urine Protein (Negative) mg/dL H & H 05/23/25 05/24/25 Range/Units 13:45 05:08 Hgb 11.7 L 11.6 L (14.0-18.0) g/dL Hct 36.8 L 36.5 L (42.0-52.0) % Coagulation 05/23/25 05/24/25 Range/Units 13:45 05:08 INR 1.1 1.1 All other labs normal. <SILKE Jamison - Last Filed: 05/24/25 13:34> Diagnostic results Knee CT: image reviewed (Large fluid collection anterolateral knee above the patella. Moderate degenerative changes knee joint. No fracture.) <Sandip Clayton MD - Last Filed: 05/24/25 13:44> Joint Aspiration & Injection Pre-Procedure Pre-procedure care: Consent was obtained, Procedures/risks were explained, Questions were answered, Correct patient identified and Correct side and site confirmed <SILKE Jamison - Last Filed: 05/24/25 13:34> Post Procedure Patient tolerated the procedure well?: Tolerated procedure well <SILKE Jamison - Last Filed: 05/24/25 13:34> Site Prepped Technique: sterile technique <SILKE Jamison - Last Filed: 05/24/25 13:34> Anesthetic: lidocaine 1% plain <SILKE Jamison - Last Filed: 05/24/25 13:34> Fluid: Inflammatory <SILKE Jamison - Last Filed: 05/24/25 13:34> Fluid Withdrawn (mL): 55 <SILKE Jamison - Last Filed: 05/24/25 13:34> Sterile Dressing Sterile Dressing: Adhesive <SILKE Jamison - Last Filed: 05/24/25 13:34> KNEE Knee Procedure: bursa Manual palpation <SILKE Jamison - Last Filed: 05/24/25 13:34>
--- NOTE | 2025-05-24 12:56 | PC.NURSE ---
Patt Butterfield [facility] CRIER aspirated left knee at bedside, ordered labs were sent through [facility]
[2025-05-24 13:38] VITALS: PULSE 90
[2025-05-24] MEDS: FINASTERIDE 5 MG TABLET PO (13:38)
[2025-05-24] MEDS: SIMVASTATIN 10 MG TABLET PO (13:38)
[2025-05-24] MEDS: GABAPENTIN 300 MG CAPSULE PO ×2 (13:38→17:32)
[2025-05-24] MEDS: METOPROLOL SUCCINATE EXT REL 25 MG TABCR PO (13:38)
[2025-05-24] MEDS: DOXAZOSIN MESYLATE 4 MG TABLET PO (13:39)
[2025-05-24 13:51] LABS: Color Synovial Fluid Yellow (Colorless); Source Synovial Fluid Lt Knee Syn Fluid
[2025-05-24 13:52] LABS: Lymphocytes Synovial Fluid 37 %; Monocytes Synovial Fluid 1 %; Neutrophils Synovial Fluid 59 % (0-25); Other Cells Synovial Fluid 3 %
[2025-05-24 14:00] VITALS: BP 140/77; PULSE 81; RESP 16; TEMP 36.6; O2SAT 96
[2025-05-24 14:00] LABS: Nucleated Cell Synovial Fluid 444450 /uL (0-200); RBC Synovial Fluid 450000 /uL (0-0)
[2025-05-24 15:19] LABS: Uric Acid 6.2 mg/dL (3.5-8.5)
[2025-05-24] MEDS: INSULIN ASPART (*BKC) 100 UNITS/ML SUB-Q (17:29)
[2025-05-24] MEDS: RIVAROXABAN 20 MG TABLET PO (17:32)
--- NOTE | 2025-05-24 18:54 | PC.NURSE ---
call to pharm for missing dose of vanco, they will send up
[2025-05-24] MEDS: VANCOMYCIN 1,500 MG/NS 500 ML 1,500 MG/500 ML BAG 250 MG IVPB (19:08)
[2025-05-24 20:45] VITALS: BP 153/78; PULSE 82; RESP 16; TEMP 36.5; O2SAT 97
[2025-05-25] VITALS (16 sets, daily range): BP systolic 111–153; BP diastolic 65–79; PULSE 57–81; RESP 12–20; TEMP 36.2–36.6; O2SAT 93–100
[2025-05-25] MEDS: ceFAZolin 2 GM/D5W 50 ML 2 GM/50 ML BAG IVPB ×2 (05:18→17:01)
[2025-05-25] MEDS: LEVOTHYROXINE SODIUM 25 MCG TABLET PO (05:18)
[2025-05-25 05:45] LABS: Estimated CRCL calculation 39 ml/min; Estimated Glomerular Filt Rate 39
--- NOTE | 2025-05-25 07:21 | P.PNIM_ITS ---
Progress Note: A&P Assessment and Plan (1) Septic bursitis: Code(s): M71.10 - Other infective bursitis, unspecified site Status: Acute Assessment and Plan: * Knee CT: * 10 x 9.6 x 5.2 cm organized anterolateral prepatellar fluid collection which in the setting of trauma most consistent with a hematoma. Differential would include bursitis on the positioning is more lateral and cephalad than typical or abscess in the appropriate clinical setting. 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 * Likely vertical radial versus parrot beak configuration tear of the posterior horn of the medial meniscus although specificity is lower than with MRI which could be obtained as clinically indicated for more definitive determination. * US LLE: negative for DVT * Started on Ancef and Vancomycin on 05/23 * Hold Xarelto in case of need for procedure and make NPO at midnight * Analgesics prn: Tylenol, Quapaw, Morphine * Antiemetic p.r.n. * Monitor WBC * Orthopedist consulted * Left knee aspiration yesterday * Rest of plan of care to be determined upon analysis of synovial fluid * POD 1 Excision of left knee suprapatellar bursa with excisional debridement of left knee septic bursitis * Continue post op wound care * PT/OT (2) Type 2 diabetes mellitus with diabetic nephropathy: Qualifiers: Diabetes mellitus long-term insulin use: without foreign collection clerk use Qualifi ed Code(s): E11.21 - Type 2 diabetes mellitus with diabetic nephropathy Code(s): E11.21 - Type 2 diabetes mellitus with diabetic nephropathy Status: Chronic Assessment and Plan: * Hypoglycemia protocol * POC blood glucose ACHS * Home medication: hold metformin in cased of need for contrast * Correct regimen ordered - high dose TIDWM, based off BMI * A1C 7.9% in Aug, update * 05/24: A1c 7.1% (3) A-fib: Qualifiers: Atrial fibrillation type: unspecified Qualified Code(s): I48.91 - Unspecified atrial fibrillation Code(s): I48.91 - Unspecified atrial fibrillation Status: Chronic Assessment and Plan: - initial EKG shows sinus rhythm with first-degree AV block - continue metoprolol XL. Hold Xarelto in case of need for procedure. - stable (4) Hypertension: Qualifiers: Hypertension type: primary hypertension Qualified Code(s): I10 - Essential (primary) hypertension Code(s): I10 - Essential (primary) hypertension Status: Chronic Assessment and Plan: - chronic, currently 153/86 - continue home medications: amlodipine, clonidine, cardura, lisinopril-HCTZ - monitor Plan Diet: Heart healthy, NPO midnight GI Prophylaxis: not currently indicated DVT Prophylaxis: SCDs, hold Xarelto IV fluids: none Lines/Tubes: peripheral IV Code Status: full code Subjective Date/time seen: 05/25/25 07:21 Interval history: 80 y/o M with PMH of DVT, AFib, chronic anticoagulation, AAA, BPH, arthritis, sleep apnea, HLD, HTN, and diabetes presents here with knee swelling. The patient presents here with ongoing left knee swelling. 05/25/2025 Patient sitting comfortably at beside at time of exam. Denies any CP, SOB, n/v, abdominal pain at this time. POD 1 Excision of left knee suprapatellar bursa with excisional debridement of left knee septic bursitis. Wound culture showed growth of Gram-positive cocci. Review of Systems Review of Systems: All systems reviewed & are unremarkable except as noted in HPI and below Exam Narrative: soft ball size swelling to the left knee with extreme tenderness with palpation. +painful ROM. scant clear drainage from knee. 2+ pitting edema to BLE with woody appearance. benign exam otherwise. Const: General: comfortable and no acute distress Other: , male, obese body habitus, nontoxic appearance HENMT: Face/Nose/Sinus: Normal nares present Mouth: Yes moist mucous membranes Eyes: General: appearance normal, both eyes and all related structures Sclera: sclerae normal Pupils: Equal, round and reactive pupils present EOM: EOMs intact bilaterally Resp: Effort & Inspection: normal respiratory effort Auscultation: clear to auscultation bilaterally Cardio: Rate: regular rate Rhythm: regular rhythm Other: S1-S2 present without murmur, rub, ectopy GI: Other: Abdomen soft, nondistended, nontender. Normoactive bowel sounds in all quadrants. Skin: General skin exam: normal color and no rashes or lesions noted Other: soft ball size swelling to the left knee with extreme tenderness with palpation. +painful ROM. scant clear drainage from knee. Neuro: Cranial nerves: Yes Equal, round and reactive pupils present Speech: normal speech Motor exam (neuro): 5/5 motor strength present throughout Sensory Exam: normal sensation Other: A&O x4 Extrem: Other: 2+ pitting edema to BLE with woody appea marion. Psych: Mental Status: mental status grossly normal Affect: normal affect Other: Good insight and judgment, pleasant Objective Data Vital Signs Vital Signs: Vital Signs - 24 hr 05/24/25 08:30 05/24/25 13:38 05/24/25 14:00 Temperature 97.9 F Pulse Rate 90 81 Respiratory Rate 16 Blood Pressure 140/77 Pulse Oximetry 96 Oxygen Delivery Room Air 05/24/25 20:45 05/25/25 05:48 Temperature 97.7 F 97.6 F Pulse Rate 82 78 Respiratory Rate 16 16 Blood Pressure 153/78 H 140/73 Pulse Oximetry 97 97 Oxygen Delivery Intake/Output Intake/Output: Intake & Output 05/22/25 05/23/25 05/24/25 05/25/25 23:59 23:59 23:59 23:59 Intake Total 550 1730 450 Balance 550 1730 450 Meds/Results Medications: Active Medications Generic Name Dose Route Start Last Admin Trade Name Freq PRN Reason Stop Dose Admin Acetaminophen 650 mg 05/23/25 17:23 Acetaminophen 325 Mg Tablet PO Q4H PRN Mild Pain (1-3) or Fever Hydrocodone Bitart/Acetaminophen 1 tab 05/23/25 17:23 Hydrocodone/Acetaminophen (*Crx) 5-325 Mg Tablet PO Q4H PRN Pain Rated 4-6 Amlodipine Besylate 10 mg 05/23/25 23:15 05/24/25 20:44 Amlodipine Besylate 10 Mg Tablet BY MOUTH 10 mg QHS AUGUSTINE Administration Clonidine HCl 1 patch 05/25/25 09:00 Clonidine 0.1 Mg/24 Hr Patch TRANSDERM WEEKLY AUGUSTINE Dextrose 12.5 gm 05/23/25 18:08 Dextrose 50% 25 Gm/50 Ml Syringe IV PUSH PRN PRN Hypoglycemia Protocol Doxazosin Mesylate 4 mg 05/24/25 09:00 05/24/25 13:39 Doxazosin Mesylate 4 Mg Tablet PO 4 mg DAILY AUGUSTINE Administration Finasteride 5 mg 05/24/25 09:00 05/24/25 13:38 Finasteride 5 Mg Tablet PO 5 mg DAILY AUGUSTINE Administration Gabapentin 300 mg 05/24/25 09:00 05/24/25 17:32 Gabapentin 300 Mg Capsule PO 300 mg BID AUGUSTINE Administration Glucagon 1 mg 05/23/25 18:08 Glucagon For Inj 1 Mg Vial IM PRN PRN Hypoglycemia Protocol Glucose 15 gm 05/23/25 18:08 Glucose Oral Gel 15 Gm Of Glucse In 37.5 Gm Tube PO PRN PRN Hypoglycemia Protocol Hydrochlorothiazide 25 mg 05/24/25 09:00 05/24/25 13:38 Hydrochlorothiazide 25 Mg Tablet PO 25 mg QAM AUGUSTINE Administration Cefazolin Sodium 2 gm in 50 mls @ 100 mls/hr 05/24/25 06:00 05/25/25 05:50 Ancef 2 Gm/D5w 50 Ml IVPB Infused Q12H AUGUSTINE Infusion Dextrose 1,000 mls @ 100 mls/hr 05/23/25 18:08 Dextrose 5% 1,000 Ml IVPB PRN PRN Hypoglycemia Protocol Vancomycin HCl 1,500 mg in 500 mls @ 250 mls/hr 05/24/25 18:00 05/24/25 21:10 Vancomycin 1,500 Mg/Ns 500 Ml IVPB Infused Q24H AUGUSTINE Infusion Sodium Chloride 1,000 mls @ 100 mls/hr 05/25/25 07:15 Normal Saline Iv IV CONT .Q10H AUGUSTINE Insulin Aspart 4 - 8 units 05/24/25 08:00 05/24/25 17:29 Insulin Aspart (*Bkc) 100 Units/Ml SUB-Q 4 units TIDWM AUGUSTINE Administration Protocol Levothyroxine Sodium 25 mcg 05/24/25 06:30 05/25/25 05:18 Levothyroxine Sodium 25 Mcg Tablet PO 25 mcg DAILY@0630 AUGUSTINE Administration Lisinopril 20 mg 05/24/25 09:00 05/24/25 13:39 Lisinopril 20 Mg Tablet PO 20 mg QAM AUGUSTINE Administration Metoprolol Succinate 25 mg 05/24/25 09:00 05/24/25 13:38 Metoprolol Succinate Ext Rel 25 Mg Tabcr PO 25 mg DAILY AUGUSTINE Administration Morphine Sulfate 2 mg 05/23/25 17:23 Morphine Sulfate (*Crx) 2 Mg/Ml Inj IV PUSH Q2H PRN Pain Rated 7-10 Ondansetron HCl 4 mg 05/23/25 17:23 Ondansetron Inj 4 Mg/2 Ml Vial IV PUSH Q4H PRN Nausea Rivaroxaban 20 mg 05/24/25 17:00 05/24/25 17:32 Rivaroxaban 20 Mg Tablet PO 20 mg DAILY@1700 AUGUSTINE Administration Simvastatin 10 mg 05/24/25 09:00 05/24/25 13:38 Simvastatin 10 Mg Tablet PO 10 mg DAILY AUGUSTINE Administration Radiology Results: ITS Impressions Venous Doppler Study 05/23/25 15:18 IMPRESSION: Negative left lower extremity venous US. No deep vein thrombosis. Knee CT 05/23/25 15:39 IMPRESSION: 1. 10 x 9.6 x 5.2 cm organized anterolateral prepatellar fluid collection which in the setting of trauma most consistent with a hematoma. Differential would include bursitis on the positioning is more lateral and cephalad than typical or abscess in the appropriate clinical setting. 2. 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 2. Likely vertical radial versus parrot beak configuration tear of the posterior horn of the medial meniscus although specificity is lower than with MRI which could be obtained as clinically indicated for more definitive determination. Knee X-Ray 05/24/25 08:10 Impression: Marked soft tissue swelling with probable fluid collection in the prepatellar soft tissues, suggestive of prepatellar bursitis. Mild tricompartmental degenerative change of the knee. Labs Labs: Laboratory Results - last 24 hr 05/24/25 05/24/25 05/24/25 08:41 11:08 12:42 Creatinine Estim Creat Clear Calc Estimated GFR POC Capillary Glucose 173 H 160 H Uric Acid Synovial Source Lt knee syn fluid Synovial Color Yellow Synovial Appearance Turbid A Synovial RBC 250538 H Synovial Nuc Cells [id number] H Synovial Neutrophils 59 H Synovial Lymphocytes 37 Synovial Monocytes 1 Synovial Other Cells 3 05/24/25 05/24/25 05/24/25 15:06 16:09 20:38 Creatinine Estim Creat Clear Calc Estimated GFR POC Capillary Glucose 207 H 207 H Uric Acid 6.2 Synovial Source Synovial Color Synovial Appearance Synovial RBC Synovial Nuc Cells Synovial Neutrophils Synovial Lymphocytes Synovial Monocytes Synovial Other Cells 05/25/25 05/25/25 05:16 07:06 Creatinine 1.70 H Estim Creat Clear Calc 39 Estimated GFR 39 L POC Capillary Glucose 232 H Uric Acid Synovial Source Synovial Color Synovial Appearance Synovial RBC Synovial Nuc Cells Synovial Neutrophils Synovial Lymphocytes Synovial Monocytes Synovial Other Cells Quality VTE Prophylaxis VTE prophylaxis: mechanical ordered
[2025-05-25 07:32] LABS: Hematocrit 34.7 % (42.0-52.0); Hemoglobin 10.7 g/dL (14.0-18.0); Immature Granulocyte Percent A 2.0 % (0-0.5); Lymphocytes Absolute Auto 1.26 K/mm3 (0.9-3.2); Mean Corpuscular HGB Conc 30.8 g/dl (32-36); Mean Corpuscular Hemoglobin 26.8 pg (26-34); Mean Corpuscular Volume 87.0 fl (80-100); Nucleated Red Blood Cells Absolute Auto 0.000 K/mm3 (0.0-0.012); Nucleated Red Blood Cells Perc 0.0 % (0.0-0.2); Platelet Count Result 313 k/mm3 (150-375); Red Blood Count 3.99 M/mm3 (4.6-6.20); White Blood Count 10.0 K/mm3 (4.5-10.0)
[2025-05-25 07:50] LABS: Alanine Aminotransferase 38 U/L (6-50); Albumin Level 3.5 g/dL (3.5-5.1); Alkaline Phosphatase 38 U/L (38-126); Anion Gap 13 mmol/L (4-12); Aspartate Amino Transferase 41 U/L (17-59); Bilirubin,Total 0.3 mg/dL (0.2-1.3); Blood Urea Nitrogen 32 mg/dL (9-20); Calcium 9.2 mg/dL (8.4-10.2); Carbon Dioxide 23 mmol/L (22-30); Chloride 100 mmol/L (98-107); Estimated CRCL calculation 39 ml/min; Estimated Glomerular Filt Rate 38; Glucose 198 mg/dL (65-110); Potassium 4.0 mmol/L (3.4-5.0); Sodium 136 mmol/L (137-145); Total Protein 7.6 g/dL (6.3-8.2)
[2025-05-25] MEDS: METOPROLOL SUCCINATE EXT REL 25 MG TABCR PO (08:01)
--- NOTE | 2025-05-25 08:39 | P.PNOP_ITS ---
Progress Note: A&P Assessment and Plan (1) Septic bursitis: Code(s): M71.10 - Other infective bursitis, unspecified site Status: Acute Assessment and Plan: Aspiration of 50 cc of purulent material yesterday. G stain shows Gram-positive cocci. Greater than 400,000 nucleated cells. Discussed with patient septic bursitis of left knee. Operative and non operative treatment reviewed. Recommend debridement of the bursa. Risks and benefits discussed. Questions answered. He understands risk of recurrent infection or need for future treatment and surgery. Will need long-term antibiotics. (2) Patellar bursitis of left knee: Code(s): M70.52 - Other bursitis of knee, left knee Status: Acute Assessment and Plan: Discussed nonoperative and operative treatment options with the patient. Risks and benefits of each as well as alternatives were reviewed. All of the patient's questions were answered. The risks of surgery reviewed including but not limited to: Neurovascular damage, wound complication, infection, blood clot, pulmonary embolus, stroke, myocardial infarction, and anesthetic risks up to and including . Continued pain and possible dysfunction were explained. Specific risks of the procedure including later recurrence of deformity. No guarantees were offered. If hardware used, discussed risk of failure/ breakage and possible need for removal. If complications occur, the patient understands the need for further treatment, possible further surgery. Patient verbalizes understanding and wishes to proceed. PLAN: Excisional debridement with irrigation left knee septic bursitis. Subjective Subjective Date/Time Seen: 05/25/25 08:39 Principal diagnosis: Left knee septic bursitis Interval history: Status post aspiration yesterday with abundant white cells and Gram-positive cocci. Patient states pain improved. No other changes. Review of Systems Review of Systems: All systems reviewed & are unremarkable except as noted in HPI and below Constitutional: Constitutional: Denies fever(s) Eyes: Eyes: Denies blurry vision ENT: Reports Normal hearing present Cardiovascular: Cardiovascular: Denies chest pain and Denies dyspnea Respiratory: Respiratory: Denies dyspnea and Denies wheezing Gastrointestinal: Gastrointestinal: Denies abdominal pain Genitourinary: Genitourinary: Denies urinary urgency Musculoskeletal: Musculoskeletal: Reports as per HPI and Denies numbness Integumentary/Breasts: Skin/Breast: Denies changing lesions and Denies sores Neurologic: Reports Normal hearing present, Denies behavioral changes, Denies confusion, Denies numbness and Denies convulsions Psychiatric: Psychiatric: Denies behavioral changes, Denies confusion and Denies hallucinations Endocrine: Endocrine: Denies heat intolerance Hematologic/Lymphatic: Hematologic/Lymphatic: Denies easy bleeding Allergic/Immunologic: Allergic/Immunologic: Denies wheezing Exam Const: General: comfortable and no acute distress Nutritional Appearance: obese HENMT: Mouth: Yes moist mucous membranes Eyes: General: appearance normal, both eyes and all related structures Neck: Neck: supple and no JVD Resp: Effort & Inspection: normal respiratory effort Cardio: Rate: regular rate Rhythm: regular rhythm GI: Inspection: non-distended GI Palp: Yes Soft to palpation and No Tenderness to palpation present (GI) Neuro: General: gait normal Cognition (Neuro): normal cognition Speech: normal speech Extrem: Left lower extremity: knee Details: normal to inspection, tenderness, swelling Location: of the patella, abnormal ROM Details: pain with active ROM Details: with extension and with flexion and pain with passive ROM Details: with extension and with flexion, abrasion, ecchymosis and warmth, lower leg Details: normal to inspection, ankle Details: normal to inspection, no edema and normal ROM; no tenderness and foot Details: normal capillary refill, normal to inspection and toes with normal ROM; no tenderness Psych: Mental Status: mental status grossly normal Affect: normal affect Objective Data Vital Signs Vital Signs: Vital Signs - 24 hr 05/24/25 13:38 05/24/25 14:00 05/24/25 20:45 Temperature 97.9 F 97.7 F Pulse Rate 90 81 82 Respiratory Rate 16 16 Blood Pressure 140/77 153/78 H Pulse Oximetry 96 97 Oxygen Delivery 05/25/25 05:48 05/25/25 08:01 05/25/25 08:05 Temperature 97.6 F Pulse Rate 78 76 76 Respiratory Rate 16 16 Blood Pressure 140/73 Pulse Oximetry 97 97 Oxygen Delivery Room Air Intake/Output Intake/Output: Intake & Output 05/22/25 05/23/25 05/24/25 05/25/25 23:59 23:59 23:59 23:59 Intake Total 550 1730 450 Balance 550 1730 450 Meds/Results Medications: Active Medications Generic Name Dose Route Start Last Admin Trade Name Freq PRN Reason Stop Dose Admin Acetaminophen 650 mg 05/23/25 17:23 Acetaminophen 325 Mg Tablet PO Q4H PRN Mild Pain (1-3) or Fever Hydrocodone Bitart/Acetaminophen 1 tab 05/23/25 17:23 Hydrocodone/Acetaminophen (*Crx) 5-325 Mg Tablet PO Q4H PRN Pain Rated 4-6 Amlodipine Besylate 10 mg 05/23/25 23:15 05/24/25 20:44 Amlodipine Besylate 10 Mg Tablet BY MOUTH 10 mg QHS [facility] Administration Clonidine HCl 1 patch 05/25/25 09:00 Clonidine 0.1 Mg/24 Hr Patch TRANSDERM WEEKLY [facility] Dextrose 12.5 gm 05/23/25 18:08 Dextrose 50% 25 Gm/50 Ml Syringe IV PUSH PRN PRN Hypoglycemia Protocol Doxazosin Mesylate 4 mg 05/24/25 09:00 05/24/25 13:39 Doxazosin Mesylate 4 Mg Tablet PO 4 mg DAILY [facility] Administration Finasteride 5 mg 05/24/25 09:00 05/24/25 13:38 Finasteride 5 Mg Tablet PO 5 mg DAILY [facility] Administration Gabapentin 300 mg 05/24/25 09:00 05/24/25 17:32 Gabapentin 300 Mg Capsule PO 300 mg BID [facility] Administration Glucagon 1 mg 05/23/25 18:08 Glucagon For Inj 1 Mg Vial IM PRN PRN Hypoglycemia Protocol Glucose 15 gm 05/23/25 18:08 Glucose Oral Gel 15 Gm Of Glucse In 37.5 Gm Tube PO PRN PRN Hypoglycemia Protocol Hydrochlorothiazide 25 mg 05/24/25 09:00 05/24/25 13:38 Hydrochlorothiazide 25 Mg Tablet PO 25 mg QAM [facility] Administration Cefazolin Sodium 2 gm in 50 mls @ 100 mls/hr 05/24/25 06:00 05/25/25 05:50 Ancef 2 Gm/D5w 50 Ml IVPB Infused Q12H [facility] Infusion Dextrose 1,000 mls @ 100 mls/hr 05/23/25 18:08 Dextrose 5% 1,000 Ml IVPB PRN PRN Hypoglycemia Protocol Vancomycin HCl 1,500 mg in 500 mls @ 250 mls/hr 05/24/25 18:00 05/24/25 21:10 Vancomycin 1,500 Mg/Ns 500 Ml IVPB Infused Q24H [facility] Infusion Sodium Chloride 1,000 mls @ 100 mls/hr 05/25/25 07:15 Normal Saline Iv IV CONT .Q10H [facility] Insulin Aspart 4 - 8 units 05/24/25 08:00 05/25/25 07:10 Insulin Aspart (*Bkc) 100 Units/Ml SUB-Q Not Given TIDWM [facility] Protocol Levothyroxine Sodium 25 mcg 05/24/25 06:30 05/25/25 05:18 Levothyroxine Sodium 25 Mcg Tablet PO 25 mcg DAILY@0630 [facility] Administration Lisinopril 20 mg 05/24/25 09:00 05/24/25 13:39 Lisinopril 20 Mg Tablet PO 20 mg QAM [facility] Administration Metoprolol Succinate 25 mg 05/24/25 09:00 05/25/25 08:01 Metoprolol Succinate Ext Rel 25 Mg Tabcr PO 25 mg DAILY [facility] Administration Morphine Sulfate 2 mg 05/23/25 17:23 Morphine Sulfate (*Crx) 2 Mg/Ml Inj IV PUSH Q2H PRN Pain Rated 7-10 Ondansetron HCl 4 mg 05/23/25 17:23 Ondansetron Inj 4 Mg/2 Ml Vial IV PUSH Q4H PRN Nausea Rivaroxaban 20 mg 05/24/25 17:00 05/24/25 17:32 Rivaroxaban 20 Mg Tablet PO 20 mg DAILY@1700 [facility] Administration Simvastatin 10 mg 05/24/25 09:00 05/24/25 13:38 Simvastatin 10 Mg Tablet PO 10 mg DAILY [facility] Administration Radiology Results: ITS Impressions Venous Doppler Study 05/23/25 15:18 IMPRESSION: Negative left lower extremity venous US. No deep vein thrombosis. Knee CT 05/23/25 15:39 IMPRESSION: 1. 10 x 9.6 x 5.2 cm organized anterolateral prepatellar fluid collection which in the setting of trauma most consistent with a hematoma. Differential would in clude bursitis on the positioning is more lateral and cephalad than typical or abscess in the appropriate clinical setting. 2. 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 2. Likely vertical radial versus parrot beak configuration tear of the posterior horn of the medial meniscus although specificity is lower than with MRI which could be obtained as clinically indicated for more definitive determination. Knee X-Ray 05/24/25 08:10 Impression: Marked soft tissue swelling with probable fluid collection in the prepatellar soft tissues, suggestive of prepatellar bursitis. Mild tricompartmental degenerative change of the knee. Labs Labs: Laboratory Results - last 24 hr 05/24/25 05/24/25 05/24/25 08:41 11:08 12:42 WBC RBC Hgb Hct MCV MCH MCHC RDW Plt Count MPV Immature Gran % (Auto) Neut % (Auto) Lymph % (Auto) [place] % (Auto) Eos % (Auto) Baso % (Auto) Lymph # (Auto) [place] # (Auto) Eos # (Auto) Baso # (Auto) Abs Immat Gran (auto) Absolute Neuts (auto) Absolute Nucleated RBC Nucleated RBC % Sodium Potassium Chloride Carbon Dioxide Anion Gap BUN Creatinine Estim Creat Clear Calc Estimated GFR Glucose POC Capillary Glucose 173 H 160 H Uric Acid Calcium Total Bilirubin AST ALT Alkaline Phosphatase Total Protein Albumin Synovial Source Lt knee syn fluid Synovial Color Yellow Synovial Appearance Turbid A Synovial RBC 490687 H Synovial Nuc Cells 173967 H Synovial Neutrophils 59 H Synovial Lymphocytes 37 Synovial Monocytes 1 Synovial Other Cells 3 05/24/25 05/24/25 05/24/25 15:06 16:09 20:38 WBC RBC Hgb Hct MCV MCH MCHC RDW Plt Count MPV Immature Gran % (Auto) Neut % (Auto) Lymph % (Auto) [place] % (Auto) Eos % (Auto) Baso % (Auto) Lymph # (Auto) [place] # (Auto) Eos # (Auto) Baso # (Auto) Abs Immat Gran (auto) Absolute Neuts (auto) Absolute Nucleated RBC Nucleated RBC % Sodium Potassium Chloride Carbon Dioxide Anion Gap BUN Creatinine Estim Creat Clear Calc Estimated GFR Glucose POC Capillary Glucose 207 H 207 H Uric Acid 6.2 Calcium Total Bilirubin AST ALT Alkaline Phosphatase Total Protein Albumin Synovial Source Synovial Color Synovial Appearance Synovial RBC Synovial Nuc Cells Synovial Neutrophils Synovial Lymphocytes Synovial Monocytes Synovial Other Cells 05/25/25 05/25/25 05/25/25 05:14 05:16 05:16 WBC 10.0 RBC 3.99 L Hgb 10.7 L Hct 34.7 L MCV 87.0 MCH 26.8 MCHC 30.8 L RDW 13.0 Plt Count 313 MPV 9.5 Immature Gran % (Auto) 2.0 H Neut % (Auto) 71.6 Lymph % (Auto) 12.7 L [place] % (Auto) 9.2 H Eos % (Auto) 4.0 Baso % (Auto) 0.5 Lymph # (Auto) 1.26 [place] # (Auto) 0.9 H Eos # (Auto) 0.4 H Baso # (Auto) 0.1 Abs Immat Gran (auto) 0.20 H Absolute Neuts (auto) 7.1 H Absolute Nucleated RBC 0.000 Nucleated RBC % 0.0 Sodium 136 L Potassium 4.0 Chloride 100 Carbon Dioxide 23 Anion Gap 13 H BUN 32 H D Creatinine 1.70 H 1.72 H Estim Creat Clear Calc 39 Estimated GFR Glucose POC Capillary Glucose Uric Acid Calcium Total Bilirubin AST ALT Alkaline Phosphatase Total Protein Albumin Synovial Source Synovial Color Synovial Appearance Synovial RBC Synovial Nuc Cells Synovial Neutrophils Synovial Lymphocytes Synovial Monocytes Synovial Other Cells 05/25/25 05/25/25 05/25/25 05:16 05:16 07:06 WBC RBC Hgb Hct MCV MCH MCHC RDW Plt Count MPV Immature Gran % (Auto) Neut % (Auto) Lymph % (Auto) [place] % (Auto) Eos % (Auto) Baso % (Auto) Lymph # (Auto) [place] # (Auto) Eos # (Auto) Baso # (Auto) Abs Immat Gran (auto) Absolute Neuts (auto) Absolute Nucleated RBC Nucleated RBC % Sodium Potassium Chloride Carbon Dioxide Anion Gap BUN Creatinine Estim Creat Clear Calc 39 Estimated GFR 39 L 38 L Glucose 198 H POC Capillary Glucose 232 H Uric Acid Calcium 9.2 Total Bilirubin 0.3 AST 41 ALT 38 Alkaline Phosphatase 38 Total Protein 7.6 Albumin 3.5 Synovial Source Synovial Color Synovial Appearance Synovial RBC Synovial Nuc Cells Synovial Neutrophils Synovial Lymphocytes Synovial Monocytes Synovial Other Cells [facility] Medical History Patellar bursitis of left knee A-fib Type 2 diabetes mellitus with diabetic nephropathy BPH (benign prostatic hyperplasia) SBO (small bowel obstruction) Ascending aortic aneurysm Hypertension Mixed hyperlipidemia Heart murmur Anticoagulant long-term use Hx of deep venous thrombosis (2020) Lower GI bleed Colon cancer screening History of mumps History of measles History of chicken pox Spinal stenosis Arm fracture (1958) Normal colonoscopy (06/29/12) 07/19/2012 Surgical History H/O exploratory laparotomy 01/18/25 Exploratory laparotomy, abdominal adhesiolysis. Dr. roberts History of cataract extraction with lens replacement History of tonsillectomy (~1949) Hx of cholecystectomy (1991) H/O nasal septoplasty (1992) Family History Grandparent Diabetes mellitus Hypertension Cerebrovascular accident Father Hypertension Family history of elevated blood lipids, Onset Age: 89 Family history of cardiovascular disease Cerebrovascular accident Mother Family history of elevated blood lipids, Onset Age: 93 Family history of cardiovascular disease Diabetes mellitus Hypertension Cerebrovascular accident Social History Social History Smoking status: Never smoker Alcohol intake: current Drinks per week: 1 Alcohol use details: occasionnally Substance use: never Substance use type: does not use Do You Feel Safe in your Home?: Yes Lack of Transportation: No Lack of Food: Never True Current Housing: I Have Housing Concerned About Future Housing: No Difficulty Paying Gas/Electric Bills: No Difficulty Paying for Meds: YES Currently Unemployed: No Education: Bachelor's Degree Difficulty w/ Childcare or Family Care: No Living arrangements: alone Occupation/Education: retired Gender identity (if verbalized by the patient): Male Spiritual care concerns: No Agree to blood products: Yes
--- NOTE | 2025-05-25 09:11 | WPDHPUPDATE1 ---
History and Physical Update Update Date/Time: 05/25/25 09:11 History and Physical has been reviewed, including an updated exam of the patient. There are NO changes in the patient's condition. Risks, benefits, and alternatives have been discussed and questions answered. Patient agrees to proceed with procedure.
--- NOTE | 2025-05-25 09:25 | PC.NURSE ---
To OR via bed.
--- NOTE | 2025-05-25 09:39 | P.PNAN_ITS ---
Anes - Initial Pre Proc Eval Procedure: Operation Date: 05/25/25 10:00 Proposed Procedures p I&D Debride Lower Extremity Leg(Left) - Sandip Clayton MD Date/Time: 05/25/25 09:39 Surgeon: Amari Pemberton MD Pre Op Diagnosis: septic bursitis,prepatellar bursitis Patient Data Age: 80 Gender: M Height: 1.68 m Weight: 128.5 kg Last Vital Signs Temp 36.4 C 05/25/25 05:48 Pulse 76 05/25/25 08:05 Resp 16 05/25/25 08:05 BP 140/73 05/25/25 05:48 Pulse Ox 97 05/25/25 08:05 O2 Del Method Room Air 05/25/25 08:05 Allergies Allergy/AdvReac Type Severity Reaction Status Date / Time No Known Drug Allergies Allergy Unknown Verified 05/23/25 18:45 Home Medications ?Medication ?Instructions ?Recorded ?Confirmed ?Type finasteride 5 mg tablet See Rx Instructions .Route 10/30/24 05/23/25 Rx .COMPLEX #90 tabs metformin 1,000 mg tablet 1,000 mg PO BID #180 tabs 12/12/24 05/23/25 Rx simvastatin 10 mg tablet 10 mg PO DAILY #90 tabs 12/12/24 05/23/25 Rx metoprolol succinate 25 mg 25 mg PO DAILY #90 tabs 12/28/24 05/23/25 Rx tablet,extended release 24 hr gabapentin 300 mg capsule See Rx Instructions .Route 01/08/25 05/23/25 Rx .COMPLEX #90 caps amlodipine 10 mg tablet 10 mg BYMOUTH QPM #90 tabs 02/26/25 05/23/25 Rx levothyroxine 25 mcg capsule 25 mcg PO DAILY 03/07/25 05/23/25 History lisinopril 20 See Rx Instructions .Route 03/09/25 05/23/25 Rx mg-hydrochlorothiazide 25 mg tablet .COMPLEX #90 tabs clonidine 0.1 mg/24 hr weekly 1 patch transdermal WEEKLY #4 ea 04/19/25 05/23/25 Rx transdermal patch doxazosin 8 mg tablet See Rx Instructions .Route 05/02/25 05/23/25 Rx .COMPLEX #90 tabs rivaroxaban 20 mg tablet (Xarelto) 20 mg PO DAILY #90 tabs 05/02/25 05/23/25 Rx Laboratory Tests 05/24/25 05/24/25 05/24/25 11:08 12:42 15:06 WBC RBC Hgb Hct MCV MCH MCHC RDW Plt Count MPV Immature Gran % (Auto) Neut % (Auto) Lymph % (Auto) [place] % (Auto) Eos % (Auto) Baso % (Auto) Lymph # (Auto) [place] # (Auto) Eos # (Auto) Baso # (Auto) Abs Immat Gran (auto) Absolute Neuts (auto) Absolute Nucleated RBC Nucleated RBC % Sodium Potassium Chloride Carbon Dioxide Anion Gap BUN Creatinine Estim Creat Clear Calc Estimated GFR Glucose POC Capillary Glucose 160 H mg/dl (65-105) Uric Acid 6.2 mg/dL (3.5-8.5) Calcium Total Bilirubin AST ALT Alkaline Phosphatase Total Protein Albumin Synovial Source Lt knee syn fluid Synovial Color Yellow (Colorless) Synovial Appearance Turbid A (Clear) Synovial RBC 854387 H /uL (0-0) Synovial Nuc Cells 497653 H /uL (0-200) Synovial Neutrophils 59 H % (0-25) Synovial Lymphocytes 37 % Synovial Monocytes 1 % Synovial Other Cells 3 % 05/24/25 05/24/25 05/25/25 16:09 20:38 05:14 WBC 10.0 K/mm3 (4.5-10.0) RBC 3.99 L M/mm3 (4.6-6.20) Hgb 10.7 L g/dL (14.0-18.0) Hct 34.7 L % (42.0-52.0) MCV 87.0 fl (80-100) MCH 26.8 pg (26-34) MCHC 30.8 L g/dl (32-36) RDW 13.0 % (11.5-14.5) Plt Count 313 k/mm3 (150-375) MPV 9.5 fl (7.4-10.4) Immature Gran % (Auto) 2.0 H % (0-0.5) Neut % (Auto) 71.6 % (45.5-73.1) Lymph % (Auto) 12.7 L % (18.3-44.2) [place] % (Auto) 9.2 H % (2.6-8.5) Eos % (Auto) 4.0 % (0-4.4) Baso % (Auto) 0.5 % (0.2-1.2) Lymph # (Auto) 1.26 K/mm3 (0.9-3.2) [place] # (Auto) 0.9 H K/mm3 (0.1-0.6) Eos # (Auto) 0.4 H K/mm3 (0-0.3) Baso # (Auto) 0.1 K/mm3 (0.0-0.1) Abs Immat Gran (auto) 0.20 H K/mm3 (0.00-0.031) Absolute Neuts (auto) 7.1 H K/mm3 (1.3-6.7) Absolute Nucleated RBC 0.000 K/mm3 (0.0-0.012) Nucleated RBC % 0.0 % (0.0-0.2) Sodium Potassium Chloride Carbon Dioxide Anion Gap BUN Creatinine Estim Creat Clear Calc Estimated GFR Glucose POC Capillary Glucose 207 H mg/dl 207 H mg/dl (65-105) (65-105) Uric Acid Calcium Total Bilirubin AST ALT Alkaline Phosphatase Total Protein Albumin Synovial Source Synovial Color Synovial Appearance Synovial RBC Synovial Nuc Cells Synovial Neutrophils Synovial Lymphocytes Synovial Monocytes Synovial Other Cells 05/25/25 05/25/25 05/25/25 05:16 05:16 05:16 WBC RBC Hgb Hct MCV MCH MCHC RDW Plt Count MPV Immature Gran % (Auto) Neut % (Auto) Lymph % (Auto) [place] % (Auto) Eos % (Auto) Baso % (Auto) Lymph # (Auto) [place] # (Auto) Eos # (Auto) Baso # (Auto) Abs Immat Gran (auto) Absolute Neuts (auto) Absolute Nucleated RBC Nucleated RBC % Sodium 136 L mmol/L (137-145) Potassium 4.0 mmol/L (3.4-5.0) Chloride 100 mmol/L (98-107) Carbon Dioxide 23 mmol/L (22-30) Anion Gap 13 H mmol/L (4-12) BUN 32 H D mg/dL (9-20) Creatinine 1.70 H mg/dL 1.72 H mg/dL (0.7-1.3) (0.7-1.3) Estim Creat Clear Calc 39 ml/min 39 ml/min Estimated GFR 39 L (59 - ) Glucose POC Capillary Glucose Uric Acid Calcium Total Bilirubin AST ALT Alkaline Phosphatase Total Protein Albumin Synovial Source Synovial Color Synovial Appearance Synovial RBC Synovial Nuc Cells Synovial Neutrophils Synovial Lymphocytes Synovial Monocytes Synovial Other Cells 05/25/25 05/25/25 05:16 07:06 WBC RBC Hgb Hct MCV MCH MCHC RDW Plt Count MPV Immature Gran % (Auto) Neut % (Auto) Lymph % (Auto) [place] % (Auto) Eos % (Auto) Baso % (Auto) Lymph # (Auto) [place] # (Auto) Eos # (Auto) Baso # (Auto) Abs Immat Gran (auto) Absolute Neuts (auto) Absolute Nucleated RBC Nucleated RBC % Sodium Potassium Chloride Carbon Dioxide Anion Gap BUN Creatinine Estim Creat Clear Calc Estimated GFR 38 L (59 - ) Glucose 198 H mg/dL (65-110) POC Capillary Glucose 232 H mg/dl (65-105) Uric Acid Calcium 9.2 mg/dL (8.4-10.2) Total Bilirubin 0.3 mg/dL (0.2-1.3) AST 41 U/L (17-59) ALT 38 U/L (6-50) Alkaline Phosphatase 38 U/L (38-126) Total Protein 7.6 g/dL (6.3-8.2) Albumin 3.5 g/dL (3.5-5.1) Synovial Source Synovial Color Synovial Appearance Synovial RBC Synovial Nuc Cells Synovial Neutrophils Synovial Lymphocytes Synovial Monocytes Synovial Other Cells Patient hx anesthesia problems: none Family hx anesthesia problems: none Results Review: All pre-operative results and documents have been reviewed as part of the pre- operative evaluation. [facility] Past Medical History Medical History Patellar bursitis of left knee A-fib Type 2 diabetes mellitus with diabetic nephropathy BPH (benign prostatic hyperplasia) SBO (small bowel obstruction) Ascending aortic aneurysm Hypertension Mixed hyperlipidemia Heart murmur Anticoagulant long-term use Hx of deep venous thrombosis (2020) Lower GI bleed Colon cancer screening History of mumps History of measles History of chicken pox Spinal stenosis Arm fracture (1958) Normal colonoscopy (06/29/12) 07/19/2012 Surgical History Surgical History H/O exploratory laparotomy 01/18/25 Exploratory laparotomy, abdominal adhesiolysis. Dr. roberts History of cataract extraction with lens replacement History of tonsillectomy (~1949) Hx of cholecystectomy (1991) H/O nasal septoplasty (1992) Family History Family History Grandparent Diabetes mellitus Hypertension Cerebrovascular accident Father Hypertension Family history of elevated blood lipids, Onset Age: 89 Family history of cardiovascular disease Cerebrovascular accident Mother Family history of elevated blood lipids, Onset Age: 93 Family history of cardiovascular disease Diabetes mellitus Hypertension Cerebrovascular accident Social History Social History Smoking status: Never smoker Alcohol intake: current Drinks per week: 1 Alcohol use details: occasionnally Substance use: never Substance use type: does not use Do You Feel Safe in your Home?: Yes Lack of Transportation: No Lack of Food: Never True Current Housing: I Have Housing Concerned About Future Housing: No Difficulty Paying Gas/Electric Bills: No Difficulty Paying for Meds: YES Currently Unemployed: No Education: Bachelor's Degree Difficulty w/ Childcare or Family Care: No Living arrangements: alone Occupation/Education: retired Gender identity (if verbalized by the patient): Male Spiritual care concerns: No Agree to blood products: Yes Anes - Eval Final PreProcedure Day of Procedure 05/25/25 09:39 Patient weight: morbidly obese Heart: regular rate and rhythm Lungs: clear to auscultation Airway: Mallampati scale class II Neurological: alert and oriented Last oral intake: >/= 8 hours ASA classification: IV Emergent: no Anesthetic plan: proceed Anesthesia type and monitoring: general ETT and standard monitoring Results Review: All pre-operative results and documents have been reviewed as part of the pre- operative evaluation. Informed Consent: The patient's anesthetic plan and its attendant risks and benefits were discussed with the patient/family/POA. Questions were solicited and answers provided to the satisfaction of the patient/family/POA.
[2025-05-25] MEDS: VANCOMYCIN HCL 1,000 MG VIAL 1000 MG TOPICAL (10:51)
[2025-05-25] MEDS: LACTATED RINGERS 1,000 ML 30 ML IV CONT (10:51)
--- NOTE | 2025-05-25 11:01 | W.PM.PROC2 ---
Procedure Note - Detailed Date of Procedure 05/25/25 Pre-op Diagnosis septic bursitis,prepatellar bursitis Post-op Diagnosis Same Procedure Performed Excision of left knee suprapatellar bursa with excisional debridement of left knee septic bursitis Surgeon Sandip Clayton MD [employer] Anesthesia General Indications 80-year-old with left knee suprapatellar septic bursitis confirmed with aspiration. Presents for operative debridement. Findings Left knee suprapatellar septic bursitis with copious amounts of purulent fluid in the bursa. Bursal sac measured 8 cm at the 5 o'clock position, 6 cm at the 9 o'clock position and 4 cm at the 2 o'clock position superolateral to the patella. Description of Procedure Patient identified in the preoperative holding. Informed consent given. Operative extremity marked. Patient received intravenous antibiotics. Patient brought to the operating room where underwent general anesthetic by anesthesia team. Positioned supine on operating room table. Time-out performed confirming the patient, site of the surgery and the plan. Left knee prepped and draped usual sterile surgical fashion using Betadine prep solution. There was purulent fluid draining from the aspiration site. The aspiration site was in the midline at the most dorsal aspect of the area of fluctuance which was dorsal lateral to the patella. 10 blade knife used to make an incision from the aspiration site proximally, approximately 3 cm. Dissection was carried down through the fascia. This allowed entry into the suprapatellar bursa. Copious amount of purulent fluid and material was expressed and suctioned out. This left as empty bursal pocket with the above measurements. 15 blade knife and rongeur used to remove synovial tissue and infected material from the bursa. Rongeur used to remove large pieces which were excised and passed off. The bursal tissue was then sharply excised with 15 blade knife and rongeur. The bursa was then irrigated with 3 L of antibiotic solution saline. Vancomycin powder was placed into the wound. A suction drain was placed and brought out the lateral aspect of the bursa. Wound was closed with 0 Prolene interrupted suture. Sterile dressing applied. The patient was then woken from anesthesia, extubated and taken to the recovery room in stable condition. All sponge, needle, instrument counts were correct at the end of the case. Estimated Blood Loss 100 Tourniquet Time Total Tourniquet Time: 0 Drains Yes Packing No Pathology None sent Complications None Condition Stable Disposition PACU [facility] Billing Surgery - Charge Forward: Surgery Billing ([id number])
[2025-05-25] MEDS: fentaNYL CITRATE INJ (*CRX) 100 MCG/2 ML VIAL 25 MCG IV PUSH (11:30)
--- NOTE | 2025-05-25 12:10 | PC.NURSE ---
Returned from OR via bed. Family t bedside.
[2025-05-25] MEDS: FINASTERIDE 5 MG TABLET PO (12:16)
[2025-05-25] MEDS: DOXAZOSIN MESYLATE 4 MG TABLET PO (12:16)
[2025-05-25] MEDS: SIMVASTATIN 10 MG TABLET PO (12:16)
[2025-05-25] MEDS: RIVAROXABAN 20 MG TABLET PO (16:35)
[2025-05-25] MEDS: GABAPENTIN 300 MG CAPSULE PO (16:35)
[2025-05-25] MEDS: VANCOMYCIN 2,000 MG/NS 500 ML 2,000 MG/500 ML BAG 250 MG IVPB (20:59)
[2025-05-26] VITALS (7 sets, daily range): BP systolic 132–166; BP diastolic 76–88; PULSE 65–84; RESP 12–20; TEMP 36.2–36.8; O2SAT 95–99
[2025-05-26 05:18] LABS: Hematocrit 37.2 % (42.0-52.0); Hemoglobin 11.3 g/dL (14.0-18.0); Immature Granulocyte Percent A 3.2 % (0-0.5); Lymphocytes Absolute Auto 1.27 K/mm3 (0.9-3.2); Mean Corpuscular HGB Conc 30.4 g/dl (32-36); Mean Corpuscular Hemoglobin 27.0 pg (26-34); Mean Corpuscular Volume 89.0 fl (80-100); Nucleated Red Blood Cells Absolute Auto 0.000 K/mm3 (0.0-0.012); Nucleated Red Blood Cells Perc 0.0 % (0.0-0.2); Platelet Count Result 307 k/mm3 (150-375); Red Blood Count 4.18 M/mm3 (4.6-6.20); White Blood Count 8.3 K/mm3 (4.5-10.0)
[2025-05-26 05:31] LABS: Alanine Aminotransferase 29 U/L (6-50); Albumin Level 3.7 g/dL (3.5-5.1); Alkaline Phosphatase 38 U/L (38-126); Anion Gap 11 mmol/L (4-12); Aspartate Amino Transferase 37 U/L (17-59); Bilirubin,Total 0.2 mg/dL (0.2-1.3); Blood Urea Nitrogen 31 mg/dL (9-20); Calcium 8.8 mg/dL (8.4-10.2); Carbon Dioxide 24 mmol/L (22-30); Chloride 101 mmol/L (98-107); Estimated CRCL calculation 40 ml/min; Estimated Glomerular Filt Rate 40; Glucose 196 mg/dL (65-110); Potassium 3.8 mmol/L (3.4-5.0); Sodium 136 mmol/L (137-145); Total Protein 7.9 g/dL (6.3-8.2)
[2025-05-26] MEDS: LEVOTHYROXINE SODIUM 25 MCG TABLET PO (06:16)
[2025-05-26] MEDS: ceFAZolin 2 GM/D5W 50 ML 2 GM/50 ML BAG IVPB ×2 (06:20→17:39)
--- NOTE | 2025-05-26 07:57 | P.PNIM_ITS ---
Progress Note: A&P Assessment and Plan (1) Septic bursitis: Code(s): M71.10 - Other infective bursitis, unspecified site Status: Acute Assessment and Plan: * Knee CT: * 10 x 9.6 x 5.2 cm organized anterolateral prepatellar fluid collection which in the setting of trauma most consistent with a hematoma. Differential would include bursitis on the positioning is more lateral and cephalad than typical or abscess in the appropriate clinical setting. 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 * Likely vertical radial versus parrot beak configuration tear of the posterior horn of the medial meniscus although specificity is lower than with MRI which could be obtained as clinically indicated for more definitive determination. * US LLE: negative for DVT * Started on Ancef and Vancomycin on 05/23 * Hold Xarelto in case of need for procedure and make NPO at midnight * Analgesics prn: Tylenol, Hamlin, Morphine * Antiemetic p.r.n. * Monitor WBC * Orthopedist consulted * Left knee aspiration yesterday * Rest of plan of care to be determined upon analysis of synovial fluid * 05/26: Post op Excision of left knee suprapatellar bursa with excisional debridement of left knee septic bursitis * Still waiting on culture results/sensitivity * Continue IV abx, daily wound changes (2) Type 2 diabetes mellitus with diabetic nephropathy: Qualifiers: Diabetes mellitus mcfp insulin use: without mcfp use Qualified Code(s): E11.21 - Type 2 diabetes mellitus with diabetic nephropathy Code(s): E11.21 - Type 2 diabetes mellitus with diabetic nephropathy Status: Chronic Assessment and Plan: * Hypoglycemia protocol * POC blood glucose ACHS * Home medication: hold metformin in cased of need for contrast * Correct regimen ordered - high dose TIDWM, based off BMI * A1C 7.9% in Aug, update * 05/24: A1c 7.1% (3) A-fib: Qualifiers: Atrial fibrillation type: unspecified Qualified Code(s): I48.91 - Unspecified atrial fibrillation Code(s): I48.91 - Unspecified atrial fibrillation Status: Chronic Assessment and Plan: - initial EKG shows sinus rhythm with first-degree AV block - continue metoprolol XL. Hold Xarelto in case of need for procedure. - stable (4) Hypertension: Qualifiers: Hypertension type: primary hypertension Qualified Code(s): I10 - Essential (primary) hypertension Code(s): I10 - Essential (primary) hypertension Status: Chronic Assessment and Plan: - chronic, currently 153/86 - continue home medications: amlodipine, clonidine, cardura, lisinopril-HCTZ - monitor Plan Diet: Heart healthy, NPO midnight GI Prophylaxis: not currently indicated DVT Prophylaxis: SCDs, hold Xarelto IV fluids: none Lines/Tubes: peripheral IV Code Status: full code Subjective Date/time seen: 05/26/25 07:57 Interval history: 80 y/o M with PMH of DVT, AFib, chronic anticoagulation, AAA, BPH, arthritis, sleep apnea, HLD, HTN, and diabetes presents here with knee swelling. The patient presents here with ongoing left knee swelling. 05/26/2025 Patient sitting comfortably at beside at time of exam. Post op day 1 of Excision of left knee suprapatellar bursa with excisional debridement of left knee septic bursitis. Healing well, drain taken out by ortho with dressing change. Continue daily gauze change. Still waiting on culture results/sensitivity - continue IV abx until these have resulted and can direct oral coverage. Pt otherwise doing well and has no complaints or concerns. Review of Systems Review of Systems: All systems reviewed & are unremarkable except as noted in HPI and below Exam Const: General: comfortable and no acute distress Other: , male, obese body habitus, nontoxic appearance HENMT: Face/Nose/Sinus: Normal nares present Mouth: Yes moist mucous membranes Eyes: General: appearance normal, both eyes and all related structures Sclera: sclerae normal Pupils: Equal, round and reactive pupils present EOM: EOMs intact bilaterally Resp: Effort & Inspection: normal respiratory effort Auscultation: clear to auscultation bilaterally Cardio: Rate: regular rate Rhythm: regular rhythm Other: S1-S2 present without murmur, rub, ectopy GI: Other: Abdomen soft, nondistended, nontender. Normoactive bowel sounds in all quadrants. Skin: General skin exam: normal color and no rashes or lesions noted Other: Incision clean/dry, sanguineous drainage from drain hole per ortho note. 4+ Pitting edema to BL LE. Dorsalis pedis pulse present, normal cap refill. Neuro: Cranial nerves: Yes Equal, round and reactive pupils present Speech: normal speech Motor exam (neuro): 5/5 motor strength present throughout Sensory Exam: normal sensation Other: A&O x4 Extrem: Other: 2+ pitting edema to BLE with woody appea marion. Psych: Mental Status: mental status grossly normal Affect: normal affect Other: Good insight and judgment, pleasant Objective Data Vital Signs Vital Signs: Vital Signs - 24 hr 05/25/25 08:01 05/25/25 08:05 05/25/25 10:51 Temperature 97.9 F Pulse Rate 76 76 70 Respiratory Rate 16 14 Blood Pressure 111/65 Pulse Oximetry 97 97 Oxygen Delivery Room Air Simple Face Mask Oxygen Flow Rate 10 05/25/25 11:05 05/25/25 11:20 05/25/25 11:35 Temperature Pulse Rate 68 64 60 Respiratory Rate 19 16 15 Blood Pressure 120/71 123/68 126/73 Pulse Oximetry 100 94 99 Oxygen Delivery Simple Face Mask Room Air Room Air Oxygen Flow Rate 10 05/25/25 11:50 05/25/25 12:13 05/25/25 12:18 Temperature 97.2 F L Pulse Rate 57 L 62 Respiratory Rate 12 16 14 Blood Pressure 127/79 119/71 Pulse Oximetry 99 100 99 Oxygen Delivery Nasal Cannula Nasal Cannula Oxygen Flow Rate 2 2 05/25/25 12:28 05/25/25 13:09 05/25/25 14:00 Temperature 97.8 F 97.8 F Pulse Rate 60 67 Respiratory Rate 18 18 Blood Pressure 129/70 119/66 Pulse Oximetry 100 95 93 Oxygen Delivery Room Air Oxygen Flow Rate 05/25/25 14:09 05/25/25 17:48 05/25/25 20:00 Temperature 97.8 F 97.4 F L Pulse Rate 65 81 Respiratory Rate 16 18 Blood Pressure 124/67 153/76 H Pulse Oximetry 96 95 Oxygen Delivery Room Air Oxygen Flow Rate 05/25/25 21:09 05/26/25 01:48 05/26/25 05:16 Temperature 97.4 F L 97.9 F 97.2 F L Pulse Rate 62 81 84 Respiratory Rate 20 18 20 Blood Pressure 144/73 H 140/87 166/78 H Pulse Oximetry 96 95 95 Oxygen Delivery Oxygen Flow Rate Intake/Output Intake/Output: Intake & Output 05/23/25 05/24/25 05/25/25 05/26/25 23:59 23:59 23:59 23:59 Intake Total 550 1730 2510 120 Output Total 15 16 Balance 550 1730 2495 104 Meds/Results Medications: Active Medications Generic Name Dose Route Start Last Admin Trade Name Freq PRN Reason Stop Dose Admin Acetaminophen 650 mg 05/23/25 17:23 Acetaminophen 325 Mg Tablet PO Q4H PRN Mild Pain (1-3) or Fever Hydrocodone Bitart/Acetaminophen 1 tab 05/23/25 17:23 Hydrocodone/Acetaminophen (*Crx) 5-325 Mg Tablet PO Q4H PRN Pain Rated 4-6 Amlodipine Besylate 10 mg 05/23/25 23:15 05/25/25 20:59 Amlodipine Besylate 10 Mg Tablet BY MOUTH 10 mg QHS [facility] Administration Clonidine HCl 1 patch 05/25/25 09:00 05/25/25 12:18 Clonidine 0.1 Mg/24 Hr Patch TRANSDERM 1 patch WEEKLY [facility] Administration Dextrose 12.5 gm 05/23/25 18:08 Dextrose 50% 25 Gm/50 Ml Syringe IV PUSH PRN PRN Hypoglycemia Protocol Doxazosin Mesylate 4 mg 05/24/25 09:00 05/25/25 12:16 Doxazosin Mesylate 4 Mg Tablet PO 4 mg DAILY [facility] Administration Fentanyl Citrate 25 mcg 05/25/25 09:41 05/25/25 11:30 Fentanyl Citrate Inj (*Crx) 100 Mcg/2 Ml Vial IV PUSH 25 mcg Q2M PRN Administration Pain Finasteride 5 mg 05/24/25 09:00 05/25/25 12:16 Finasteride 5 Mg Tablet PO 5 mg DAILY [facility] Administration Gabapentin 300 mg 05/24/25 09:00 05/25/25 16:35 Gabapentin 300 Mg Capsule PO 300 mg BID [facility] Administration Glucagon 1 mg 05/23/25 18:08 Glucagon For Inj 1 Mg Vial IM PRN PRN Hypoglycemia Protocol Glucose 15 gm 05/23/25 18:08 Glucose Oral Gel 15 Gm Of Glucse In 37.5 Gm Tube PO PRN PRN Hypoglycemia Protocol Hydrochlorothiazide 25 mg 05/24/25 09:00 05/25/25 12:16 Hydrochlorothiazide 25 Mg Tablet PO 25 mg QAM [facility] Administration Hydroxyzine Pamoate 50 mg 05/25/25 12:03 Hydroxyzine Pamoate 25 Mg Capsule PO Q4H PRN Itching Cefazolin Sodium 2 gm in 50 mls @ 100 mls/hr 05/24/25 06:00 05/26/25 06:20 Ancef 2 Gm/D5w 50 Ml IVPB 100 mls/hr Q12H [facility] Administration Dextrose 1,000 mls @ 100 mls/hr 05/23/25 18:08 Dextrose 5% 1,000 Ml IVPB PRN PRN Hypoglycemia Protocol Vancomycin HCl 2,000 mg in 500 mls @ 250 mls/hr 05/25/25 20:00 05/25/25 20:59 Vancomycin 2,000 Mg/Ns 500 Ml IVPB 250 mls/hr Q24H [facility] Administration Insulin Aspart 4 - 8 units 05/24/25 08:00 05/25/25 16:33 Insulin Aspart (*Bkc) 100 Units/Ml SUB-Q Not Given TIDWM [facility] Protocol Levothyroxine Sodium 25 mcg 05/24/25 06:30 05/26/25 06:16 Levothyroxine Sodium 25 Mcg Tablet PO 25 mcg DAILY@0630 [facility] Administration Lisinopril 20 mg 05/24/25 09:00 05/25/25 12:17 Lisinopril 20 Mg Tablet PO 20 mg QAM [facility] Administration Metoprolol Succinate 25 mg 05/24/25 09:00 05/25/25 08:01 Metoprolol Succinate Ext Rel 25 Mg Tabcr PO 25 mg DAILY [facility] Administration Morphine Sulfate 2 mg 05/23/25 17:23 Morphine Sulfate (*Crx) 2 Mg/Ml Inj IV PUSH Q2H PRN Pain Rated 7-10 Naloxone HCl 0.1 mg 05/25/25 12:03 Naloxone Hcl 0.4 Mg/Ml Vial IV PUSH Q2M PRN Opiate Reversal Ondansetron HCl 4 mg 05/23/25 17:23 Ondansetron Inj 4 Mg/2 Ml Vial IV PUSH Q4H PRN Nausea Ondansetron HCl 4 mg 05/25/25 09:41 Ondansetron Inj 4 Mg/2 Ml Vial IV PUSH ONCE PRN Nausea Ondansetron HCl 4 mg 05/25/25 12:03 Ondansetron Inj 4 Mg/2 Ml Vial IV PUSH Q4H PRN Nausea And Vomiting Polyethylene Glycol 17 gm 05/26/25 09:00 Polyethylene Glycol 3350 17 Gm Powd.Pack PO QAM [facility] Rivaroxaban 20 mg 05/24/25 17:00 05/25/25 16:35 Rivaroxaban 20 Mg Tablet PO 20 mg DAILY@1700 [facility] Administration Senna/Docusate Sodium 2 tab 05/25/25 17:00 05/25/25 16:35 Senna/Docusate Sodium Tablet PO Not Given BID [facility] Simvastatin 10 mg 05/24/25 09:00 05/25/25 12:16 Simvastatin 10 Mg Tablet PO 10 mg DAILY [facility] Administration Radiology Results: ITS Impressions Venous Doppler Study 05/23/25 15:18 IMPRESSION: Negative left lower extremity venous US. No deep vein thrombosis. Knee CT 05/23/25 15:39 IMPRESSION: 1. 10 x 9.6 x 5.2 cm organized anterolateral prepatellar fluid collection which in the setting of trauma most consistent with a hematoma. Differential would include bursitis on the positioning is more lateral and cephalad than typical or abscess in the appropriate clinical setting. 2. 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 2. Likely vertical radial versus parrot beak configuration tear of the posterior horn of the medial meniscus although specificity is lower than with MRI which could be obtained as clinically indicated for more definitive determination. Knee X-Ray 05/24/25 08:10 Impression: Marked soft tissue swelling with probable fluid collection in the prepatellar soft tissues, suggestive of prepatellar bursitis. Mild tricompartmental degenerative change of the knee. Labs Labs: Laboratory Results - last 24 hr 05/25/25 05/25/25 05/25/25 10:09 11:24 16:25 WBC RBC Hgb Hct MCV MCH MCHC RDW Plt Count MPV Immature Gran % (Auto) Neut % (Auto) Lymph % (Auto) [place] % (Auto) Eos % (Auto) Baso % (Auto) Lymph # (Auto) [place] # (Auto) Eos # (Auto) Baso # (Auto) Abs Immat Gran (auto) Absolute Neuts (auto) Absolute Nucleated RBC Nucleated RBC % Sodium Potassium Chloride Carbon Dioxide Anion Gap BUN Creatinine Estim Creat Clear Calc Estimated GFR Glucose POC Capillary Glucose 162 H 147 H 166 H Calcium Total Bilirubin AST ALT Alkaline Phosphatase Total Protein Albumin Vancomycin Trough 05/25/25 05/25/25 05/26/25 17:01 20:21 04:46 WBC 8.3 RBC 4.18 L Hgb 11.3 L Hct 37.2 L MCV 89.0 MCH 27.0 MCHC 30.4 L RDW 12.9 Plt Count 307 MPV 9.3 Immature Gran % (Auto) 3.2 H Neut % (Auto) 68.1 Lymph % (Auto) 15.4 L [place] % (Auto) 8.4 Eos % (Auto) 4.2 Baso % (Auto) 0.7 Lymph # (Auto) 1.27 [place] # (Auto) 0.7 H Eos # (Auto) 0.4 H Baso # (Auto) 0.1 Abs Immat Gran (auto) 0.26 H Absolute Neuts (auto) 5.6 Absolute Nucleated RBC 0.000 Nucleated RBC % 0.0 Sodium 136 L Potassium 3.8 Chloride 101 Carbon Dioxide 24 Anion Gap 11 BUN 31 H Creatinine 1.65 H Estim Creat Clear Calc 40 Estimated GFR 40 L Glucose 196 H POC Capillary Glucose 206 H Calcium 8.8 Total Bilirubin 0.2 AST 37 ALT 29 Alkaline Phosphatase 38 Total Protein 7.9 Albumin 3.7 Vancomycin Trough 11.5 05/26/25 07:48 WBC RBC Hgb Hct MCV MCH MCHC RDW Plt Count MPV Immature Gran % (Auto) Neut % (Auto) Lymph % (Auto) [place] % (Auto) Eos % (Auto) Baso % (Auto) Lymph # (Auto) [place] # (Auto) Eos # (Auto) Baso # (Auto) Abs Immat Gran (auto) Absolute Neuts (auto) Absolute Nucleated RBC Nucleated RBC % Sodium Potassium Chloride Carbon Dioxide Anion Gap BUN Creatinine Estim Creat Clear Calc Estimated GFR Glucose POC Capillary Glucose 236 H Calcium Total Bilirubin AST ALT Alkaline Phosphatase Total Protein Albumin Vancomycin Trough Quality VTE Prophylaxis VTE prophylaxis: mechanical ordered
[2025-05-26] MEDS: INSULIN ASPART (*BKC) 100 UNITS/ML SUB-Q (07:58)
[2025-05-26] MEDS: SIMVASTATIN 10 MG TABLET PO (08:04)
[2025-05-26] MEDS: FINASTERIDE 5 MG TABLET PO (08:05)
[2025-05-26] MEDS: DOXAZOSIN MESYLATE 4 MG TABLET PO (08:05)
[2025-05-26] MEDS: METOPROLOL SUCCINATE EXT REL 25 MG TABCR PO (08:05)
[2025-05-26] MEDS: GABAPENTIN 300 MG CAPSULE PO ×2 (08:11→16:24)
--- NOTE | 2025-05-26 08:59 | P.PNOP_ITS ---
Progress Note: A&P Assessment and Plan (1) Septic bursitis: Code(s): M71.10 - Other infective bursitis, unspecified site Status: Acute Assessment and Plan: Left knee septic bursitis, POD 1. Left knee debridement. Operative findings reviewed with the patient. Drain with minimal output. Removed this morning with dressing change. Start daily gauze dressing changes to the left knee. Continue weight-bearing as tolerated. Awaiting culture results and sensitivity. Continue empiric IV antibiotics in the interim. Subjective Subjective Date/Time Seen: 05/26/25 08:59 Post Op day: 1 Principal diagnosis: Left knee septic bursitis Interval history: pod 1. Left knee debridement, excision bursa. Patient up to chair. Minimal pain left knee. No problems overnight. Drain 30 cc output. Exam Const: General: comfortable; No acute distress Resp: Effort & Inspection: normal respiratory effort and no audible wheezes Extrem: Right lower extremity: lower leg ( Negative Homans sign), ankle Details: normal ROM ( dorsiflexion and plantar flexion intact) and foot Details: vascular exam Details: dorsalis pedis pulse present and normal capillary refill, tendon exam Details: active flexion normal and active extension normal and motor-sensory exam Details: light-touch normal Location: in all toes; no edema Left lower extremity: knee Details: abnormal to inspection Details: erythematous ( Slightly improved) and with a suprapatellar bulge ( decreased), abnormal ROM Details: pain with active ROM Details: with flexion and other ( dressing changed. Incision clean and dry. Mild sanguinous drainage from the drain hole.), lower leg Details: pitting edema Details: 4+, ankle Details: normal ROM and foot Details: edema, vascular exam Details: dorsalis pedis pulse present and normal capillary refill and motor-sensory exam light-touch normal in all toes Objective Data Vital Signs Vital Signs: Vital Signs - 24 hr 05/25/25 10:51 05/25/25 11:05 05/25/25 11:20 Temperature 97.9 F Pulse Rate 70 68 64 Respiratory Rate 14 19 16 Blood Pressure 111/65 120/71 123/68 Pulse Oximetry 97 100 94 Oxygen Delivery Simple Face Mask Simple Face Mask Room Air Oxygen Flow Rate 10 10 05/25/25 11:35 05/25/25 11:50 05/25/25 12:13 Temperature 97.2 F L Pulse Rate 60 57 L 62 Respiratory Rate 15 12 16 Blood Pressure 126/73 127/79 119/71 Pulse Oximetry 99 99 100 Oxygen Delivery Room Air Nasal Cannula Oxygen Flow Rate 2 05/25/25 12:18 05/25/25 12:28 05/25/25 13:09 Temperature 97.8 F 97.8 F Pulse Rate 60 67 Respiratory Rate 14 18 18 Blood Pressure 129/70 119/66 Pulse Oximetry 99 100 95 Oxygen Delivery Nasal Cannula Oxygen Flow Rate 2 05/25/25 14:00 05/25/25 14:09 05/25/25 17:48 Temperature 97.8 F 97.4 F L Pulse Rate 65 81 Respiratory Rate 16 18 Blood Pressure 124/67 153/76 H Pulse Oximetry 93 96 95 Oxygen Delivery Room Air Oxygen Flow Rate 05/25/25 20:00 05/25/25 21:09 05/26/25 01:48 Temperature 97.4 F L 97.9 F Pulse Rate 62 81 Respiratory Rate 20 18 Blood Pressure 144/73 H 140/87 Pulse Oximetry 96 95 Oxygen Delivery Room Air Oxygen Flow Rate 05/26/25 05:16 05/26/25 08:05 Temperature 97.2 F L Pulse Rate 84 76 Respiratory Rate 20 Blood Pressure 166/78 H Pulse Oximetry 95 Oxygen Delivery Oxygen Flow Rate Intake/Output Intake/Output: Intake & Output 05/23/25 05/24/25 05/25/25 05/26/25 23:59 23:59 23:59 23:59 Intake Total 550 1730 2510 120 Output Total 15 16 Balance 550 1730 2495 104 Meds/Results Medications: Active Medications Generic Name Dose Route Start Last Admin Trade Name Freq PRN Reason Stop Dose Admin Acetaminophen 650 mg 05/23/25 17:23 Acetaminophen 325 Mg Tablet PO Q4H PRN Mild Pain (1-3) or Fever Hydrocodone Bitart/Acetaminophen 1 tab 05/23/25 17:23 Hydrocodone/Acetaminophen (*Crx) 5-325 Mg Tablet PO Q4H PRN Pain Rated 4-6 Amlodipine Besylate 10 mg 05/23/25 23:15 05/25/25 20:59 Amlodipine Besylate 10 Mg Tablet BY MOUTH 10 mg QHS [facility] Administration Clonidine HCl 1 patch 05/25/25 09:00 05/25/25 12:18 Clonidine 0.1 Mg/24 Hr Patch TRANSDERM 1 patch WEEKLY [facility] Administration Dextrose 12.5 gm 05/23/25 18:08 Dextrose 50% 25 Gm/50 Ml Syringe IV PUSH PRN PRN Hypoglycemia Protocol Doxazosin Mesylate 4 mg 05/24/25 09:00 05/26/25 08:05 Doxazosin Mesylate 4 Mg Tablet PO 4 mg DAILY [facility] Administration Fentanyl Citrate 25 mcg 05/25/25 09:41 05/25/25 11:30 Fentanyl Citrate Inj (*Crx) 100 Mcg/2 Ml Vial IV PUSH 25 mcg Q2M PRN Administration Pain Finasteride 5 mg 05/24/25 09:00 05/26/25 08:05 Finasteride 5 Mg Tablet PO 5 mg DAILY [facility] Administration Gabapentin 300 mg 05/24/25 09:00 05/26/25 08:11 Gabapentin 300 Mg Capsule PO 300 mg BID [facility] Administration Glucagon 1 mg 05/23/25 18:08 Glucagon For Inj 1 Mg Vial IM PRN PRN Hypoglycemia Protocol Glucose 15 gm 05/23/25 18:08 Glucose Oral Gel 15 Gm Of Glucse In 37.5 Gm Tube PO PRN PRN Hypoglycemia Protocol Hydrochlorothiazide 25 mg 05/24/25 09:00 05/26/25 08:04 Hydrochlorothiazide 25 Mg Tablet PO 25 mg QAM [facility] Administration Hydroxyzine Pamoate 50 mg 05/25/25 12:03 Hydroxyzine Pamoate 25 Mg Capsule PO Q4H PRN Itching Cefazolin Sodium 2 gm in 50 mls @ 100 mls/hr 05/24/25 06:00 05/26/25 06:20 Ancef 2 Gm/D5w 50 Ml IVPB 100 mls/hr Q12H [facility] Administration Dextrose 1,000 mls @ 100 mls/hr 05/23/25 18:08 Dextrose 5% 1,000 Ml IVPB PRN PRN Hypoglycemia Protocol Vancomycin HCl 2,000 mg in 500 mls @ 250 mls/hr 05/25/25 20:00 05/25/25 20:59 Vancomycin 2,000 Mg/Ns 500 Ml IVPB 250 mls/hr Q24H [facility] Administration Insulin Aspart 4 - 8 units 05/24/25 08:00 05/26/25 07:58 Insulin Aspart (*Bkc) 100 Units/Ml SUB-Q 4 units TIDWM [facility] Administration Protocol Levothyroxine Sodium 25 mcg 05/24/25 06:30 05/26/25 06:16 Levothyroxine Sodium 25 Mcg Tablet PO 25 mcg DAILY@0630 [facility] Administration Lisinopril 20 mg 05/24/25 09:00 05/26/25 08:06 Lisinopril 20 Mg Tablet PO 20 mg QAM [facility] Administration Metoprolol Succinate 25 mg 05/24/25 09:00 05/26/25 08:05 Metoprolol Succinate Ext Rel 25 Mg Tabcr PO 25 mg DAILY [facility] Administration Morphine Sulfate 2 mg 05/23/25 17:23 Morphine Sulfate (*Crx) 2 Mg/Ml Inj IV PUSH Q2H PRN Pain Rated 7-10 Naloxone HCl 0.1 mg 05/25/25 12:03 Naloxone Hcl 0.4 Mg/Ml Vial IV PUSH Q2M PRN Opiate Reversal Ondansetron HCl 4 mg 05/23/25 17:23 Ondansetron Inj 4 Mg/2 Ml Vial IV PUSH Q4H PRN Nausea Ondansetron HCl 4 mg 05/25/25 09:41 Ondansetron Inj 4 Mg/2 Ml Vial IV PUSH ONCE PRN Nausea Ondansetron HCl 4 mg 05/25/25 12:03 Ondansetron Inj 4 Mg/2 Ml Vial IV PUSH Q4H PRN Nausea And Vomiting Polyethylene Glycol 17 gm 05/26/25 09:00 05/26/25 08:07 Polyethylene Glycol 3350 17 Gm Powd.Pack PO Not Given QAM [facility] Rivaroxaban 20 mg 05/24/25 17:00 05/25/25 16:35 Rivaroxaban 20 Mg Tablet PO 20 mg DAILY@1700 [facility] Administration Senna/Docusate Sodium 2 tab 05/25/25 17:00 05/26/25 08:07 Senna/Docusate Sodium Tablet PO Not Given BID [facility] Simvastatin 10 mg 05/24/25 09:00 05/26/25 08:04 Simvastatin 10 Mg Tablet PO 10 mg DAILY [facility] Administration Radiology Results: ITS Impressions Venous Doppler Study 05/23/25 15:18 IMPRESSION: Negative left lower extremity venous US. No deep vein thrombosis. Knee CT 05/23/25 15:39 IMPRESSION: 1. 10 x 9.6 x 5.2 cm organized anterolateral prepatellar fluid collection which in the setting of trauma most consistent with a hematoma. Differential would include bursitis on the positioning is more lateral and cephalad than typical or abscess in the appropriate clinical setting. 2. 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 2. Likely vertical radial versus parrot beak configuration tear of the posterior horn of the medial meniscus although specificity is lower than with MRI which could be obtained as clinically indicated for more definitive determination. Knee X-Ray 05/24/25 08:10 Impression: Marked soft tissue swelling with probable fluid collection in the prepatellar soft tissues, suggestive of prepatellar bursitis. Mild tricompartmental degenerative change of the knee. Labs Labs: Laboratory Results - last 24 hr 05/25/25 05/25/25 05/25/25 10:09 11:24 16:25 WBC RBC Hgb Hct MCV MCH MCHC RDW Plt Count MPV Immature Gran % (Auto) Neut % (Auto) Lymph % (Auto) [place] % (Auto) Eos % (Auto) Baso % (Auto) Lymph # (Auto) [place] # (Auto) Eos # (Auto) Baso # (Auto) Abs Immat Gran (auto) Absolute Neuts (auto) Absolute Nucleated RBC Nucleated RBC % Sodium Potassium Chloride Carbon Dioxide Anion Gap BUN Creatinine Estim Creat Clear Calc Estimated GFR Glucose POC Capillary Glucose 162 H 147 H 166 H Calcium Total Bilirubin AST ALT Alkaline Phosphatase Total Protein Albumin Vancomycin Trough 05/25/25 05/25/25 05/26/25 17:01 20:21 04:46 WBC 8.3 RBC 4.18 L Hgb 11.3 L Hct 37.2 L MCV 89.0 MCH 27.0 MCHC 30.4 L RDW 12.9 Plt Count 307 MPV 9.3 Immature Gran % (Auto) 3.2 H Neut % (Auto) 68.1 Lymph % (Auto) 15.4 L [place] % (Auto) 8.4 Eos % (Auto) 4.2 Baso % (Auto) 0.7 Lymph # (Auto) 1.27 [place] # (Auto) 0.7 H Eos # (Auto) 0.4 H Baso # (Auto) 0.1 Abs Immat Gran (auto) 0.26 H Absolute Neuts (auto) 5.6 Absolute Nucleated RBC 0.000 Nucleated RBC % 0.0 Sodium 136 L Potassium 3.8 Chloride 101 Carbon Dioxide 24 Anion Gap 11 BUN 31 H Creatinine 1.65 H Estim Creat Clear Calc 40 Estimated GFR 40 L Glucose 196 H POC Capillary Glucose 206 H Calcium 8.8 Total Bilirubin 0.2 AST 37 ALT 29 Alkaline Phosphatase 38 Total Protein 7.9 Albumin 3.7 Vancomycin Trough 11.5 05/26/25 07:48 WBC RBC Hgb Hct MCV MCH MCHC RDW Plt Count MPV Immature Gran % (Auto) Neut % (Auto) Lymph % (Auto) [place] % (Auto) Eos % (Auto) Baso % (Auto) Lymph # (Auto) [place] # (Auto) Eos # (Auto) Baso # (Auto) Abs Immat Gran (auto) Absolute Neuts (auto) Absolute Nucleated RBC Nucleated RBC % Sodium Potassium Chloride Carbon Dioxide Anion Gap BUN Creatinine Estim Creat Clear Calc Estimated GFR Glucose POC Capillary Glucose 236 H Calcium Total Bilirubin AST ALT Alkaline Phosphatase Total Protein Albumin Vancomycin Trough
[2025-05-26] MEDS: RIVAROXABAN 20 MG TABLET PO (16:24)
[2025-05-26] MEDS: VANCOMYCIN 2,000 MG/NS 500 ML 2,000 MG/500 ML BAG 250 MG IVPB (20:25)
[2025-05-27 04:28] VITALS: BP 155/75; PULSE 67; RESP 12; TEMP 36.6; O2SAT 98
[2025-05-27 05:21] LABS: Hematocrit 35.3 % (42.0-52.0); Hemoglobin 11.0 g/dL (14.0-18.0); Immature Granulocyte Percent A 3.0 % (0-0.5); Lymphocytes Absolute Auto 1.28 K/mm3 (0.9-3.2); Mean Corpuscular HGB Conc 31.2 g/dl (32-36); Mean Corpuscular Hemoglobin 27.1 pg (26-34); Mean Corpuscular Volume 86.9 fl (80-100); Nucleated Red Blood Cells Absolute Auto 0.000 K/mm3 (0.0-0.012); Nucleated Red Blood Cells Perc 0.0 % (0.0-0.2); Platelet Count Result 333 k/mm3 (150-375); Red Blood Count 4.06 M/mm3 (4.6-6.20); White Blood Count 8.1 K/mm3 (4.5-10.0)
[2025-05-27 05:34] LABS: Alanine Aminotransferase 24 U/L (6-50); Albumin Level 3.7 g/dL (3.5-5.1); Alkaline Phosphatase 38 U/L (38-126); Anion Gap 9 mmol/L (4-12); Aspartate Amino Transferase 38 U/L (17-59); Bilirubin,Total 0.2 mg/dL (0.2-1.3); Blood Urea Nitrogen 28 mg/dL (9-20); Calcium 8.7 mg/dL (8.4-10.2); Carbon Dioxide 26 mmol/L (22-30); Chloride 102 mmol/L (98-107); Estimated CRCL calculation 47 ml/min; Estimated Glomerular Filt Rate 48; Glucose 143 mg/dL (65-110); Potassium 3.8 mmol/L (3.4-5.0); Sodium 137 mmol/L (137-145); Total Protein 7.9 g/dL (6.3-8.2)
[2025-05-27] MEDS: ceFAZolin 2 GM/D5W 50 ML 2 GM/50 ML BAG IVPB ×2 (05:45→16:59)
[2025-05-27] MEDS: LEVOTHYROXINE SODIUM 25 MCG TABLET PO (05:46)
--- NOTE | 2025-05-27 07:22 | P.PNIM_ITS ---
Progress Note: A&P Assessment and Plan (1) Septic bursitis: Code(s): M71.10 - Other infective bursitis, unspecified site Status: Acute Assessment and Plan: * Knee CT: * 10 x 9.6 x 5.2 cm organized anterolateral prepatellar fluid collection which in the setting of trauma most consistent with a hematoma. Differential would include bursitis on the positioning is more lateral and cephalad than typical or abscess in the appropriate clinical setting. 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 * Likely vertical radial versus parrot beak configuration tear of the posterior horn of the medial meniscus although specificity is lower than with MRI which could be obtained as clinically indicated for more definitive determination. * US LLE: negative for DVT * Started on Ancef and Vancomycin on 05/23 * Hold Xarelto in case of need for procedure and make NPO at midnight * Analgesics prn: Tylenol, [place], Morphine * Antiemetic p.r.n. 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 Qualified Code(s): E11.21 - Type 2 diabetes mellitus with diabetic nephropathy Code(s): E11.21 - Type 2 diabetes mellitus with diabetic nephropathy Status: Chronic Assessment and Plan: * Hypoglycemia protocol * POC blood glucose ACHS * Home medication: hold metformin in cased of need for contrast * Correct regimen ordered - high dose TIDWM, based off BMI * A1C 7.9% in Aug, update * 05/24: A1c 7.1% (3) A-fib: Qualifiers: Atrial fibrillation type: unspecified Qualified Code(s): I48.91 - Unspecified atrial fibrillation Code(s): I48.91 - Unspecified atrial fibrillation Status: Chronic Assessment and Plan: - initial EKG shows sinus rhythm with first-degree AV block - continue metoprolol XL. Hold Xarelto in case of need for procedure. - stable (4) Hypertension: Qualifiers: Hypertension type: primary hypertension Qualified Code(s): I10 - Essential (primary) hypertension Code(s): I10 - Essential (primary) hypertension Status: Chronic Assessment and Plan: - chronic, currently 153/86 - continue home medications: amlodipine, clonidine, cardura, lisinopril-HCTZ - monitor Plan Diet: Heart healthy, NPO midnight GI Prophylaxis: not currently indicated DVT Prophylaxis: SCDs, hold Xarelto IV fluids: none Lines/Tubes: peripheral IV Code Status: full code Subjective Date/time seen: 05/27/25 07:22 Interval history: 80 y/o M with PMH of DVT, AFib, chronic anticoagulation, AAA, BPH, arthritis, sleep apnea, HLD, HTN, and diabetes presents here with knee swelling. The patient presents here with ongoing left knee swelling. 05/27/2025 Patient sitting comfortably at beside at time of exam. Post op day 2 of Excision of left knee suprapatellar bursa with excisional debridement of left knee septic bursitis. Wound culture resulted - vicente-sensitive. Discussed with ortho - they recommend pt/ot eval as ambulation will be difficult and pt may need continued rehab. Review of Systems Review of Systems: All systems reviewed & are unremarkable except as noted in HPI and below Exam Const: General: comfortable and no acute distress Other: , male, obese body habitus, nontoxic appearance HENMT: Face/Nose/Sinus: Normal nares present Mouth: Yes moist mucous membranes Eyes: General: appearance normal, both eyes and all related structures Sclera: sclerae normal Pupils: Equal, round and reactive pupils present EOM: EOMs intact bilaterally Resp: Effort & Inspection: normal respiratory effort Auscultation: clear to auscultation bilaterally Cardio: Rate: regular rate Rhythm: regular rhythm Other: S1-S2 present without murmur, rub, ectopy GI: Other: Abdomen soft, nondistended, nontender. Normoactive bowel sounds in all quadrants. Skin: General skin exam: normal color and no rashes or lesions noted Other: Incision clean/dry, sanguineous drainage from drain hole per ortho note. 4+ Pi tting edema to BL LE. Dorsalis pedis pulse present, normal cap refill. Neuro: Cranial nerves: Yes Equal, round and reactive pupils present Speech: normal speech Motor exam (neuro): 5/5 motor strength present throughout Sensory Exam: normal sensation Other: A&O x4 Extrem: Other: 2+ pitting edema to BLE with woody appea marion. Psych: Mental Status: mental status grossly normal Affect: normal affect Other: Good insight and judgment, pleasant Objective Data Vital Signs Vital Signs: Vital Signs - 24 hr 05/26/25 08:05 05/26/25 08:11 05/26/25 09:48 Temperature 97.1 F L Pulse Rate 76 76 71 Respiratory Rate 20 20 Blood Pressure 132/88 Pulse Oximetry 95 99 Oxygen Delivery Room Air 05/26/25 14:00 05/26/25 20:00 05/26/25 21:05 Temperature 97.6 F 98.2 F Pulse Rate 68 65 Respiratory Rate 20 12 Blood Pressure 147/76 H 156/77 H Pulse Oximetry 99 96 Oxygen Delivery Room Air 05/27/25 04:28 Temperature 97.8 F Pulse Rate 67 Respiratory Rate 12 Blood Pressure 155/75 H Pulse Oximetry 98 Oxygen Delivery Intake/Output Intake/Output: Intake & Output 05/24/25 05/25/25 05/26/25 05/27/25 23:59 23:59 23:59 23:59 Intake Total 1730 3010 920 300 Output Total 15 16 Balance 1730 2995 904 300 Meds/Results Medications: Active Medications Generic Name Dose Route Start Last Admin Trade Name Freq PRN Reason Stop Dose Admin Acetaminophen 650 mg 05/23/25 17:23 Acetaminophen 325 Mg Tablet PO Q4H PRN Mild Pain (1-3) or Fever Hydrocodone Bitart/Acetaminophen 1 tab 05/23/25 17:23 Hydrocodone/Acetaminophen (*Crx) 5-325 Mg Tablet PO Q4H PRN Pain Rated 4-6 Amlodipine Besylate 10 mg 05/23/25 23:15 05/26/25 20:25 Amlodipine Besylate 10 Mg Tablet BY MOUTH 10 mg QHS [facility] Administration Clonidine HCl 1 patch 05/25/25 09:00 05/25/25 12:18 Clonidine 0.1 Mg/24 Hr Patch TRANSDERM 1 patch WEEKLY [facility] Administration Dextrose 12.5 gm 05/23/25 18:08 Dextrose 50% 25 Gm/50 Ml Syringe IV PUSH PRN PRN Hypoglycemia Protocol Doxazosin Mesylate 4 mg 05/24/25 09:00 05/26/25 08:05 Doxazosin Mesylate 4 Mg Tablet PO 4 mg DAILY [facility] Administration Fentanyl Citrate 25 mcg 05/25/25 09:41 05/25/25 11:30 Fentanyl Citrate Inj (*Crx) 100 Mcg/2 Ml Vial IV PUSH 25 mcg Q2M PRN Administration Pain Finasteride 5 mg 05/24/25 09:00 05/26/25 08:05 Finasteride 5 Mg Tablet PO 5 mg DAILY [facility] Administration Gabapentin 300 mg 05/24/25 09:00 05/26/25 16:24 Gabapentin 300 Mg Capsule PO 300 mg BID [facility] Administration Glucagon 1 mg 05/23/25 18:08 Glucagon For Inj 1 Mg Vial IM PRN PRN Hypoglycemia Protocol Glucose 15 gm 05/23/25 18:08 Glucose Oral Gel 15 Gm Of Glucse In 37.5 Gm Tube PO PRN PRN Hypoglycemia Protocol Hydrochlorothiazide 25 mg 05/24/25 09:00 05/26/25 08:04 Hydrochlorothiazide 25 Mg Tablet PO 25 mg QAM [facility] Administration Hydroxyzine Pamoate 50 mg 05/25/25 12:03 Hydroxyzine Pamoate 25 Mg Capsule PO Q4H PRN Itching Cefazolin Sodium 2 gm in 50 mls @ 100 mls/hr 05/24/25 06:00 05/27/25 05:45 Ancef 2 Gm/D5w 50 Ml IVPB 100 mls/hr Q12H [facility] Administration Dextrose 1,000 mls @ 100 mls/hr 05/23/25 18:08 Dextrose 5% 1,000 Ml IVPB PRN PRN Hypoglycemia Protocol Vancomycin HCl 2,000 mg in 500 mls @ 250 mls/hr 05/25/25 20:00 05/26/25 20:25 Vancomycin 2,000 Mg/Ns 500 Ml IVPB 250 mls/hr Q24H [facility] Administration Insulin Aspart 4 - 8 units 05/24/25 08:00 05/26/25 16:39 Insulin Aspart (*Bkc) 100 Units/Ml SUB-Q Not Given TIDWM [facility] [place] Protocol Levothyroxine Sodium 25 mcg 05/24/25 06:30 05/27/25 05:46 Levothyroxine Sodium 25 Mcg Tablet PO 25 mcg DAILY@0630 [facility] Administration Lisinopril 20 mg 05/24/25 09:00 05/26/25 08:06 Lisinopril 20 Mg Tablet PO 20 mg QAM [facility] Administration Metoprolol Succinate 25 mg 05/24/25 09:00 05/26/25 08:05 Metoprolol Succinate Ext Rel 25 Mg Tabcr PO 25 mg DAILY [facility] [place] Administration Morphine Sulfate 2 mg 05/23/25 17:23 Morphine Sulfate (*Crx) 2 Mg/Ml Inj IV PUSH Q2H PRN Pain Rated 7-10 Naloxone HCl 0.1 mg 05/25/25 12:03 Naloxone Hcl 0.4 Mg/Ml Vial IV PUSH Q2M PRN Opiate Reversal Ondansetron HCl 4 mg 05/23/25 17:23 Ondansetron Inj 4 Mg/2 Ml Vial IV PUSH Q4H PRN Nausea Ondansetron HCl 4 mg 05/25/25 09:41 Ondansetron Inj 4 Mg/2 Ml Vial IV PUSH ONCE PRN Nausea Ondansetron HCl 4 mg 05/25/25 12:03 Ondansetron Inj 4 Mg/2 Ml Vial IV PUSH Q4H PRN Nausea And Vomiting Polyethylene Glycol 17 gm 05/26/25 09:00 05/26/25 08:07 Polyethylene Glycol 3350 17 Gm Powd.Pack PO Not Given QAM [facility] [place] Rivaroxaban 20 mg 05/24/25 17:00 05/26/25 16:24 Rivaroxaban 20 Mg Tablet PO 20 mg DAILY@1700 [facility] Administration Senna/Docusate Sodium 2 tab 05/25/25 17:00 05/26/25 16:24 Senna/Docusate Sodium Tablet PO Not Given BID [facility] Simvastatin 10 mg 05/24/25 09:00 05/26/25 08:04 Simvastatin 10 Mg Tablet PO 10 mg DAILY [facility] [place] Administration Radiology Results: ITS Impressions Venous Doppler Study 05/23/25 15:18 IMPRESSION: Negative left lower extremity venous US. No deep vein thrombosis. Knee CT 05/23/25 15:39 IMPRESSION: 1. 10 x 9.6 x 5.2 cm organized anterolateral prepatellar fluid collection which in the setting of trauma most consistent with a hematoma. Differential would include bursitis on the positioning is more lateral and cephalad than typical or abscess in the appropriate clinical setting. 2. 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 2. Likely vertical radial versus parrot beak configuration tear of the posterior horn of the medial meniscus although specificity is lower than with MRI which could be obtained as clinically indicated for more definitive determination. Knee X-Ray 05/24/25 08:10 Impression: Marked soft tissue swelling with probable fluid collection in the prepatellar soft tissues, suggestive of prepatellar bursitis. Mild tricompartmental degenerative change of the knee. Labs Labs: Laboratory Results - last 24 hr 05/26/25 05/26/25 05/26/25 07:48 11:21 16:29 WBC RBC Hgb Hct MCV MCH MCHC RDW Plt Count MPV Immature Gran % (Auto) Neut % (Auto) Lymph % (Auto) [place] % (Auto) Eos % (Auto) Baso % (Auto) Lymph # (Auto) [place] # (Auto) Eos # (Auto) Baso # (Auto) Abs Immat Gran (auto) Absolute Neuts (auto) Absolute Nucleated RBC Nucleated RBC % Sodium Potassium Chloride Carbon Dioxide Anion Gap BUN Creatinine Estim Creat Clear Calc Estimated GFR Glucose POC Capillary Glucose 236 H 193 H 130 H Calcium Total Bilirubin AST ALT Alkaline Phosphatase Total Protein Albumin 05/26/25 05/27/25 21:02 04:44 WBC 8.1 RBC 4.06 L Hgb 11.0 L Hct 35.3 L MCV 86.9 MCH 27.1 MCHC 31.2 L RDW 12.8 Plt Count 333 MPV 9.2 Immature Gran % (Auto) 3.0 H Neut % (Auto) 67.4 Lymph % (Auto) 15.8 L [place] % (Auto) 8.4 Eos % (Auto) 4.8 H Baso % (Auto) 0.6 Lymph # (Auto) 1.28 [place] # (Auto) 0.7 H Eos # (Auto) 0.4 H Baso # (Auto) 0.1 Abs Immat Gran (auto) 0.24 H Absolute Neuts (auto) 5.5 Absolute Nucleated RBC 0.000 Nucleated RBC % 0.0 Sodium 137 Potassium 3.8 Chloride 102 Carbon Dioxide 26 Anion Gap 9 BUN 28 H Creatinine 1.42 H Estim Creat Clear Calc 47 Estimated GFR 48 L Glucose 143 H POC Capillary Glucose 156 H Calcium 8.7 Total Bilirubin 0.2 AST 38 ALT 24 Alkaline Phosphatase 38 Total Protein 7.9 Albumin 3.7 Quality VTE Prophylaxis VTE prophylaxis: mechanical ordered
[2025-05-27 09:17] VITALS: BP 154/80; PULSE 73; RESP 16; TEMP 36.4; O2SAT 96
[2025-05-27] MEDS: GABAPENTIN 300 MG CAPSULE PO ×2 (09:21→16:50)
[2025-05-27 09:22] VITALS: PULSE 72; RESP 16; O2SAT 96
[2025-05-27] MEDS: SENNA/DOCUSATE SODIUM TABLET 2 TAB PO ×2 (09:22→16:50)
[2025-05-27] MEDS: FINASTERIDE 5 MG TABLET PO (09:22)
[2025-05-27] MEDS: METOPROLOL SUCCINATE EXT REL 25 MG TABCR PO (09:22)
[2025-05-27] MEDS: DOXAZOSIN MESYLATE 4 MG TABLET PO (09:22)
[2025-05-27] MEDS: SIMVASTATIN 10 MG TABLET PO (09:23)
[2025-05-27 14:59] VITALS: BP 157/80; PULSE 79; RESP 16; TEMP 36.1; O2SAT 97
--- NOTE | 2025-05-27 15:16 | P.PNOP_ITS ---
Progress Note: A&P Assessment and Plan (1) Septic bursitis: Code(s): M71.10 - Other infective bursitis, unspecified site Status: Acute Assessment and Plan: Left knee septic bursitis, POD 2. Left knee debridement. Daily gauze dressing changes to the left knee. Continue weight-bearing as tolerated. Cultures shows oxacillin sensitive Staph aureus. Plan to finish out IV antibiotics today. Switched to oral antibiotics tomorrow. Home tomorrow with home health for dressing changes and therapy on oral antibiotics. Follow up orthopedics in 2 weeks for suture removal. Subjective Subjective Date/Time Seen: 05/27/25 15:16 Post Op day: 2 Principal diagnosis: Left knee septic bursitis Interval history: pod 2. Left knee debridement, excision bursa. Patient up to chair. Minimal pain left knee. No problems overnight. Drain out Exam Const: General: comfortable; No acute distress Resp: Effort & Inspection: normal respiratory effort and no audible wheezes Extrem: Right lower extremity: lower leg ( Negative Homans sign), ankle Details: normal ROM ( dorsiflexion and plantar flexion intact) and foot Details: vascular exam Details: dorsalis pedis pulse present and normal capillary refill, tendon exam Details: active flexion normal and active extension normal and motor-sensory exam Details: light-touch normal Location: in all toes; no edema Left lower extremity: knee Details: abnormal to inspection Details: erythematous ( Slightly improved) and with a suprapatellar bulge ( decreased), abnormal ROM Details: pain with active ROM Details: with flexion and other (Incision clean and dry. Mild sanguinous drainage from the drain hole.), lower leg Details: pitting edema Details: 4+, ankle Details: normal ROM and foot Details: edema, vascular exam Details: dorsalis pedis pulse present and normal capillary refill and motor-sensory exam light-touch normal in all toes Objective Data Vital Signs Vital Signs: Vital Signs - 24 hr 05/26/25 20:00 05/26/25 21:05 05/27/25 04:28 Temperature 98.2 F 97.8 F Pulse Rate 65 67 Respiratory Rate 12 12 Blood Pressure 156/77 H 155/75 H Pulse Oximetry 96 98 Oxygen Delivery Room Air 05/27/25 09:17 05/27/25 09:22 05/27/25 09:22 Temperature 97.6 F Pulse Rate 73 72 72 Respiratory Rate 16 16 Blood Pressure 154/80 H Pulse Oximetry 96 96 Oxygen Delivery Room Air 05/27/25 14:31 Temperature Pulse Rate Respiratory Rate Blood Pressure Pulse Oximetry Oxygen Delivery Room Air Intake/Output Intake/Output: Intake & Output 05/24/25 05/25/25 05/26/25 05/27/25 23:59 23:59 23:59 23:59 Intake Total 1730 3010 920 780 Output Total 15 16 Balance 1730 2995 904 780 Meds/Results Medications: Active Medications Generic Name Dose Route Start Last Admin Trade Name Freq PRN Reason Stop Dose Admin Acetaminophen 650 mg 05/23/25 17:23 Acetaminophen 325 Mg Tablet PO Q4H PRN Mild Pain (1-3) or Fever Hydrocodone Bitart/Acetaminophen 1 tab 05/23/25 17:23 Hydrocodone/Acetaminophen (*Crx) 5-325 Mg Tablet PO Q4H PRN Pain Rated 4-6 Amlodipine Besylate 10 mg 05/23/25 23:15 05/26/25 20:25 Amlodipine Besylate 10 Mg Tablet BY MOUTH 10 mg QHS [facility]INE Administration Clonidine HCl 1 patch 05/25/25 09:00 05/25/25 12:18 Clonidine 0.1 Mg/24 Hr Patch TRANSDERM 1 patch WEEKLY A[facility]INE Administration Dextrose 12.5 gm 05/23/25 18:08 Dextrose 50% 25 Gm/50 Ml Syringe IV PUSH PRN PRN Hypoglycemia Protocol Doxazosin Mesylate 4 mg 05/24/25 09:00 05/27/25 09:22 Doxazosin Mesylate 4 Mg Tablet PO 4 mg DAILY [facility] Administration Fentanyl Citrate 25 mcg 05/25/25 09:41 05/25/25 11:30 Fentanyl Citrate Inj (*Crx) 100 Mcg/2 Ml Vial IV PUSH 25 mcg Q2M PRN Administration Pain Finasteride 5 mg 05/24/25 09:00 05/27/25 09:22 Finasteride 5 Mg Tablet PO 5 mg DAILY [facility] Administration Gabapentin 300 mg 05/24/25 09:00 05/27/25 09:21 Gabapentin 300 Mg Capsule PO 300 mg BID [facility] Administration Glucagon 1 mg 05/23/25 18:08 Glucagon For Inj 1 Mg Vial IM PRN PRN Hypoglycemia Protocol Glucose 15 gm 05/23/25 18:08 Glucose Oral Gel 15 Gm Of Glucse In 37.5 Gm Tube PO PRN PRN Hypoglycemia Protocol Hydrochlorothiazide 25 mg 05/24/25 09:00 05/27/25 09:22 Hydrochlorothiazide 25 Mg Tablet PO 25 mg QAM [facility]INE Administration Hydroxyzine Pamoate 50 mg 05/25/25 12:03 Hydroxyzine Pamoate 25 Mg Capsule PO Q4H PRN Itching Cefazolin Sodium 2 gm in 50 mls @ 100 mls/hr 05/24/25 06:00 05/27/25 05:45 Ancef 2 Gm/D5w 50 Ml IVPB 100 mls/hr Q12H [facility] Administration Dextrose 1,000 mls @ 100 mls/hr 05/23/25 18:08 Dextrose 5% 1,000 Ml IVPB PRN PRN Hypoglycemia Protocol Vancomycin HCl 2,000 mg in 500 mls @ 250 mls/hr 05/25/25 20:00 05/26/25 20:25 Vancomycin 2,000 Mg/Ns 500 Ml IVPB 250 mls/hr Q24H [facility] Administration Insulin Aspart 4 - 8 units 05/24/25 08:00 05/27/25 09:18 Insulin Aspart (*Bkc) 100 Units/Ml SUB-Q Not Given TIDWM [facility] Protocol Levothyroxine Sodium 25 mcg 05/24/25 06:30 05/27/25 05:46 Levothyroxine Sodium 25 Mcg Tablet PO 25 mcg DAILY@0630 [facility] Administration Lisinopril 20 mg 05/24/25 09:00 05/27/25 09:23 Lisinopril 20 Mg Tablet PO 20 mg QAM [facility] Administration Metoprolol Succinate 25 mg 05/24/25 09:00 05/27/25 09:22 Metoprolol Succinate Ext Rel 25 Mg Tabcr PO 25 mg DAILY [facility] Administration Morphine Sulfate 2 mg 05/23/25 17:23 Morphine Sulfate (*Crx) 2 Mg/Ml Inj IV PUSH Q2H PRN Pain Rated 7-10 Naloxone HCl 0.1 mg 05/25/25 12:03 Naloxone Hcl 0.4 Mg/Ml Vial IV PUSH Q2M PRN Opiate Reversal Ondansetron HCl 4 mg 05/23/25 17:23 Ondansetron Inj 4 Mg/2 Ml Vial IV PUSH Q4H PRN Nausea Ondansetron HCl 4 mg 05/25/25 09:41 Ondansetron Inj 4 Mg/2 Ml Vial IV PUSH ONCE PRN Nausea Ondansetron HCl 4 mg 05/25/25 12:03 Ondansetron Inj 4 Mg/2 Ml Vial IV PUSH Q4H PRN Nausea And Vomiting Polyethylene Glycol 17 gm 05/26/25 09:00 05/27/25 09:23 Polyethylene Glycol 3350 17 Gm Powd.Pack PO 17 gm QAM [facility] Administration Rivaroxaban 20 mg 05/24/25 17:00 05/26/25 16:24 Rivaroxaban 20 Mg Tablet PO 20 mg DAILY@1700 [facility] Administration Senna/Docusate Sodium 2 tab 05/25/25 17:00 05/27/25 09:22 Senna/Docusate Sodium Tablet PO 2 tab BID [facility] Administration Simvastatin 10 mg 05/24/25 09:00 05/27/25 09:23 Simvastatin 10 Mg Tablet PO 10 mg DAILY [facility] Administration Radiology Results: ITS Impressions Venous Doppler Study 05/23/25 15:18 IMPRESSION: Negative left lower extremity venous US. No deep vein thrombosis. Knee CT 05/23/25 15:39 IMPRESSION: 1. 10 x 9.6 x 5.2 cm organized anterolateral prepatellar fluid collection which in the setting of trauma most consistent with a hematoma. Differential would include bursitis on the positioning is more lateral and cephalad than typical or abscess in the appropriate clinical setting. 2. 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 2. Likely vertical radial versus parrot beak configuration tear of the posterior horn of the medial meniscus although specificity is lower than with MRI which could be obtained as clinically indicated for more definitive determination. Knee X-Ray 05/24/25 08:10 Impression: Marked soft tissue swelling with probable fluid collection in the prepatellar soft tissues, suggestive of prepatellar bursitis. Mild tricompartmental degenerative change of the knee. Labs Labs: Laboratory Results - last 24 hr 05/26/25 05/26/25 05/27/25 16:29 21:02 04:44 WBC 8.1 RBC 4.06 L Hgb 11.0 L Hct 35.3 L MCV 86.9 MCH 27.1 MCHC 31.2 L RDW 12.8 Plt Count 333 MPV 9.2 Immature Gran % (Auto) 3.0 H Neut % (Auto) 67.4 Lymph % (Auto) 15.8 L [place] % (Auto) 8.4 Eos % (Auto) 4.8 H Baso % (Auto) 0.6 Lymph # (Auto) 1.28 [place] # (Auto) 0.7 H Eos # (Auto) 0.4 H Baso # (Auto) 0.1 Abs Immat Gran (auto) 0.24 H Absolute Neuts (auto) 5.5 Absolute Nucleated RBC 0.000 Nucleated RBC % 0.0 Sodium 137 Potassium 3.8 Chloride 102 Carbon Dioxide 26 Anion Gap 9 BUN 28 H Creatinine 1.42 H Estim Creat Clear Calc 47 Estimated GFR 48 L Glucose 143 H POC Capillary Glucose 130 H 156 H Calcium 8.7 Total Bilirubin 0.2 AST 38 ALT 24 Alkaline Phosphatase 38 Total Protein 7.9 Albumin 3.7 05/27/25 05/27/25 08:15 11:59 WBC RBC Hgb Hct MCV MCH MCHC RDW Plt Count MPV Immature Gran % (Auto) Neut % (Auto) Lymph % (Auto) [place] % (Auto) Eos % (Auto) Baso % (Auto) Lymph # (Auto) [place] # (Auto) Eos # (Auto) Baso # (Auto) Abs Immat Gran (auto) Absolute Neuts (auto) Absolute Nucleated RBC Nucleated RBC % Sodium Potassium Chloride Carbon Dioxide Anion Gap BUN Creatinine Estim Creat Clear Calc Estimated GFR Glucose POC Capillary Glucose 154 H 186 H Calcium Total Bilirubin AST ALT Alkaline Phosphatase Total Protein Albumin
[2025-05-27] MEDS: RIVAROXABAN 20 MG TABLET PO (16:50)
[2025-05-27] MEDS: VANCOMYCIN 1,750 MG/NS 500 ML 1,750 MG/500 ML BAG 250 MG IVPB (21:38)
[2025-05-27 22:16] VITALS: BP 167/79; PULSE 67; RESP 16; TEMP 36.4; O2SAT 95
[2025-05-28 04:53] LABS: Hematocrit 35.1 % (42.0-52.0); Hemoglobin 11.1 g/dL (14.0-18.0); Immature Granulocyte Percent A 2.9 % (0-0.5); Lymphocytes Absolute Auto 1.52 K/mm3 (0.9-3.2); Mean Corpuscular HGB Conc 31.6 g/dl (32-36); Mean Corpuscular Hemoglobin 27.1 pg (26-34); Mean Corpuscular Volume 85.8 fl (80-100); Nucleated Red Blood Cells Absolute Auto 0.000 K/mm3 (0.0-0.012); Nucleated Red Blood Cells Perc 0.0 % (0.0-0.2); Platelet Count Result 351 k/mm3 (150-375); Red Blood Count 4.09 M/mm3 (4.6-6.20); White Blood Count 8.3 K/mm3 (4.5-10.0)
[2025-05-28 04:58] VITALS: BP 168/81; PULSE 71; RESP 16; TEMP 36.4; O2SAT 98
[2025-05-28 05:07] LABS: Alanine Aminotransferase 23 U/L (6-50); Albumin Level 3.6 g/dL (3.5-5.1); Alkaline Phosphatase 37 U/L (38-126); Anion Gap 8 mmol/L (4-12); Aspartate Amino Transferase 40 U/L (17-59); Bilirubin,Total 0.4 mg/dL (0.2-1.3); Blood Urea Nitrogen 27 mg/dL (9-20); Calcium 8.9 mg/dL (8.4-10.2); Carbon Dioxide 30 mmol/L (22-30); Chloride 101 mmol/L (98-107); Estimated CRCL calculation 45 ml/min; Estimated Glomerular Filt Rate 46; Glucose 149 mg/dL (65-110); Potassium 4.3 mmol/L (3.4-5.0); Sodium 139 mmol/L (137-145); Total Protein 8.0 g/dL (6.3-8.2)
[2025-05-28] MEDS: ceFAZolin 2 GM/D5W 50 ML 2 GM/50 ML BAG IVPB (05:56)
[2025-05-28] MEDS: LEVOTHYROXINE SODIUM 25 MCG TABLET PO (05:56)
[2025-05-28 09:50] VITALS: PULSE 84
[2025-05-28] MEDS: METOPROLOL SUCCINATE EXT REL 25 MG TABCR PO (09:50)
[2025-05-28] MEDS: SIMVASTATIN 10 MG TABLET PO (09:50)
[2025-05-28] MEDS: GABAPENTIN 300 MG CAPSULE PO (09:50)
[2025-05-28 09:51] VITALS: PULSE 84; RESP 16; O2SAT 98
[2025-05-28] MEDS: FINASTERIDE 5 MG TABLET PO (09:51)
[2025-05-28] MEDS: DOXAZOSIN MESYLATE 4 MG TABLET PO (09:51)
[2025-05-28] MEDS: DOXYCYCLINE HYCLATE 100 MG TABLET PO (09:54)
[2025-05-28 09:56] VITALS: BP 143/88; PULSE 84
--- NOTE | 2025-05-28 10:09 | PM.DS ---
DS: Admitting Diagnosis Discharge Date 05/28/2025 Admitting Diagnosis Septic bursitis DS: Discharge Diagnosis Discharge Diagnosis (1) Septic bursitis: Code(s): M71.10 - Other infective bursitis, unspecified site Status: Acute Assessment and Plan: Knee CT: 10 x 9.6 x 5.2 cm organized anterolateral prepatellar fluid collection which in the setting of trauma most consistent with a hematoma. Differential would include bursitis on the positioning is more lateral and cephalad than typical or abscess in the appropriate clinical setting. 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 Likely vertical radial versus parrot beak configuration tear of the posterior horn of the medial meniscus although specificity is lower than with MRI which could be obtained as clinically indicated for more definitive determination. US LLE: negative for DVT Started on Ancef and Vancomycin on 05/23 Hold Xarelto in case of need for procedure and make NPO at midnight Analgesics prn: Tylenol, Kosse, Morphine Antiemetic p.r.n. Monitor WBC Orthopedist consulted Left knee aspiration yesterday Rest of plan of care to be determined upon analysis of synovial fluid 05/27: Post op 2 Excision of left knee suprapatellar bursa with excisional debridement of left knee septic bursitis Wound culture/sensitivity - Staph A: Vicente sensitive Continue IV abx, daily wound changes (2) Type 2 diabetes mellitus with diabetic nephropathy: Qualifiers: Diabetes mellitus nursing home insulin use: without nursing home use Qualified Code(s): E11.21 - Type 2 diabetes mellitus with diabetic nephropathy Code(s): E11.21 - Type 2 diabetes mellitus with diabetic nephropathy Status: Chronic Assessment and Plan: Hypoglycemia protocol POC blood glucose ACHS Home medication: hold metformin in cased of need for contrast Correct regimen ordered - high dose TIDWM, based off BMI A1C 7.9% in Aug, update 05/24: A1c 7.1% (3) A-fib: Qualifiers: Atrial fibrillation type: unspecified Qualified Code(s): I48.91 - Unspecified atrial fibrillation Code(s): I48.91 - Unspecified atrial fibrillation Status: Chronic Assessment and Plan: - initial EKG shows sinus rhythm with first-degree AV block - continue metoprolol XL. Hold Xarelto in case of need for procedure. - stable (4) Hypertension: Qualifiers: Hypertension type: primary hypertension Qualified Code(s): I10 - Essential (primary) hypertension Code(s): I10 - Essential (primary) hypertension Status: Chronic Assessment and Plan: - chronic, currently 153/86 - continue home medications: amlodipine, clonidine, cardura, lisinopril-HCTZ - monitor Plan Diet: Heart healthy, NPO midnight GI Prophylaxis: not currently indicated DVT Prophylaxis: SCDs, hold Xarelto IV fluids: none Lines/Tubes: peripheral IV Code Status: full code DS: Summary Hospital Course Reason for hospitalization: Knee pain Hospital Course: 80 y/o M with PMH of DVT, AFib, chronic anticoagulation, AAA, BPH, arthritis, sleep apnea, HLD, HTN, and diabetes presents here with knee swelling. The patient presents here with ongoing left knee swelling. He reports trauma to the left knee on March 30. He reports a fall where he slipped walking down the bleachers hitting his left knee on the concrete. no immediate swelling or tenderness to the knee post fall. He reports the swelling and redness started and progressively worsened over the last week and now has scant drainage. He describes the drainage as clear and more like seepage. Knee is now also warm to the touch and very tender to the touch. He denies fever, chills, body aches, nausea, vomiting, or diarrhea. Of note, he is scheduled for an upcoming aortic aneurysm repair 2 weeks from now. Initial VS at presentation: 98.4? F, HR 86, R 16, 187/107, and 98% on RA. ED workup showed: WBC 12.1, hemoglobin 11.7, INR 1.1, creatinine 1.41 and GFR 48 (1.03 and GFR >60 on 02/06/25), glucose 216, lactic 1.6, CRP 7.9, UA showed 2+ protein otherwise unremarkable. 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 LLE UA negative for DVT. General surgery consulted for septic arthritis. Patient given the option between conservative and operative treatments, general surgery recommends a left knee aspiration given large amount of left knee prepatellar swelling with surrounding erythema. Patient was amenable to this plan and patient underwent left knee aspiration on 05/24. Patient then underwent an excision of the left knee suprapatellar bursa with excisional debridement of left knee septic bursitis on 05/25. Patient tolerated this procedure well, a drain was put in place and subsequently removed on pod 1. Wound culture was obtained which showed growth of Streptococcus aureus. Sensitivities were obtained which showed vicente sensitivity. Discussed this with 80 pharmacist who recommended placing the patient doxycycline 100 mg q.12 for 34 total doses, to be taken until 06/13. Patient was followed by Orthopedics throughout hospitalization. They recommended finishing out IV antibiotics until 05/27 with transition to oral antibiotics on 05/28. On 05/28, patient appeared hemodynamically stable with appropriate wound healing. Patient has been transitioned to oral antibiotics and can be discharged at this time. PT/OT did not recommend any further rehabilitation. Plan for discharge home with oral doxycycline. Will instruct the patient to follow up with Orthopedics in 2 weeks for suture removal. Status at Discharge Functional status at discharge: independent ambulation Overall status at discharge: patient is back to baseline Time Spent with Patient Time attestation: Total time spent providing and/or coordinating discharge services: 42 Exam Const: General: comfortable and no acute distress Other: , male, obese body habitus, nontoxic appearance HENMT: Face/Nose/Sinus: Normal nares present Mouth: Yes moist mucous membranes Eyes: General: appearance normal, both eyes and all related structures Sclera: sclerae normal Pupils: Equal, round and reactive pupils present EOM: EOMs intact bilaterally Resp: Effort & Inspection: normal respiratory effort Auscultation: clear to auscultation bilaterally Cardio: Rate: regular rate Rhythm: regular rhythm Other: S1-S2 present without murmur, rub, ectopy GI: Other: Abdomen soft, nondistended, nontender. Normoactive bowel sounds in all quadrants. Skin: General skin exam: normal color and no rashes or lesions noted Other: Incision clean/dry, sanguineous drainage from drain hole per ortho note. 4+ Pitting edema to BL LE. Dorsalis pedis pulse present, normal cap refill. Neuro: Cranial nerves: Yes Equal, round and reactive pupils present Speech: normal speech Motor exam (neuro): 5/5 motor strength present throughout Sensory Exam: normal sensation Other: A&O x4 Extrem: Other: 2+ pitting edema to BLE with woody appearance. Psych: Mental Status: mental status grossly normal Affect: normal affect Other: Good insight and judgment, pleasant DS: Data Data Completed and Pending Labs on day of discharge: Labs from last 24 hours 05/28/25 05/28/25 05/27/25 07:49 04:43 22:34 WBC 8.3 RBC 4.09 L Hgb 11.1 L Hct 35.1 L MCV 85.8 MCH 27.1 MCHC 31.6 L RDW 12.9 Plt Count 351 MPV 8.9 Immature Gran % (Auto) 2.9 H Neut % (Auto) 65.6 Lymph % (Auto) 18.4 [place] % (Auto) 8.7 H Eos % (Auto) 3.8 Baso % (Auto) 0.6 Lymph # (Auto) 1.52 [place] # (Auto) 0.7 H Eos # (Auto) 0.3 Baso # (Auto) 0.1 Abs Immat Gran (auto) 0.24 H Absolute Neuts (auto) 5.4 Absolute Nucleated RBC 0.000 Nucleated RBC % 0.0 Sodium 139 Potassium 4.3 Chloride 101 Carbon Dioxide 30 Anion Gap 8 BUN 27 H Creatinine 1.46 H Estim Creat Clear Calc 45 Estimated GFR 46 L Glucose 149 H POC Capillary Glucose 153 H 150 H Calcium 8.9 Total Bilirubin 0.4 AST 40 ALT 23 Alkaline Phosphatase 37 L Total Protein 8.0 Albumin 3.6 Vancomycin Trough 05/27/25 05/27/25 05/27/25 19:51 17:11 11:59 WBC RBC Hgb Hct MCV MCH MCHC RDW Plt Count MPV Immature Gran % (Auto) Neut % (Auto) Lymph % (Auto) [place] % (Auto) Eos % (Auto) Baso % (Auto) Lymph # (Auto) [place] # (Auto) Eos # (Auto) Baso # (Auto) Abs Immat Gran (auto) Absolute Neuts (auto) Absolute Nucleated RBC Nucleated RBC % Sodium Potassium Chloride Carbon Dioxide Anion Gap BUN Creatinine Estim Creat Clear Calc Estimated GFR Glucose POC Capillary Glucose 116 H 186 H Calcium Total Bilirubin AST ALT Alkaline Phosphatase Total Protein Albumin Vancomycin Trough 14.5 Preliminary micro results at discharge 05/24/25 12:42 Anaerobic Culture - Preliminary Knee Left 05/23/25 13:45 Blood Culture - Preliminary Blood 05/23/25 13:47 Blood Culture - Preliminary Blood Discharge Plan Discharge Attending physician on discharge: Aleta Richter Consulting providers: Lele Harris; Sandip Clayton Discharging Clinician: Lele Harris Anticipated Discharge Date/Time: 05/28/25 10:07 Patient Disposition: Home with Home Health Service Activity: as tolerated Diet: as tolerated Discharge Instructions: Discharge disposition: Stable Take medications as prescribed. You will be prescribed doxycycline to be taken every 12 hours. You will be given a total of 34 doses to be taken until June 13. Monitor blood pressures Take caution while standing, rising, or moving Change positions slowly taking a break between each position change If you standing feel dizzy sit back down and take a break Encouraged to continue with yearly vaccinations Return to the emergency department if he developed sudden shortness of breath, chest pain, nausea, vomiting, upset stomach or intractable diarrhea Return to the emergency department if you develop fever greater than 101.5 Follow-up with the primary care physician within 1-2 weeks Follow-up with orthopedics in 2 weeks for suture removal. Call the office on the attached sheet to schedule an appointment. Thank you for choosing [facility] for your healthcare needs Per Care Coordination. Patient to have [facility] for transitions rn care coordinator/PT/OT eval and treat [phone]. They will contact you to schedule first visit. Patient Instructions: Antibiotic Form, Rivaroxaban (By mouth), Safe Use of Anticoagulants (GEN), Blood Thinners (GEN) Patient Language: Greenlandic Stand Alone Forms: General Discharge Information Follow-up/Referrals: Sandip Clayton MD [Physician] - Alida Dunn DIRECTOR [employer]VENUE[employer] [Primary Care Provider] - Discharge Medications: New doxycycline hyclate 100 mg Tablet 100 mg PO Q12HR Qty: 34 0RF Continued levothyroxine 25 mcg capsule 25 mcg PO DAILY clonidine 0.1 mg/24 hr patch weekly 1 patch transdermal WEEKLY Qty: 4 0RF finasteride 5 mg tablet See Rx Instructions .ROUTE .COMPLEX Qty: 90 1RF Dose Instruction: Take 1 tablet by mouth once daily Rx Instructions: Take 1 tablet by mouth once daily simvastatin 10 mg tablet 10 mg PO DAILY Qty: 90 1RF metformin 1,000 mg tablet 1,000 mg PO BID Qty: 180 1RF metoprolol succinate 25 mg tablet extended release 24 hr 25 mg PO DAILY Qty: 90 1RF gabapentin 300 mg capsule See Rx Instructions .ROUTE .COMPLEX Qty: 90 1RF Dose Instruction: TAKE 1 CAPSULE BY MOUTH THREE TIMES DAILY Patient Comments: takes twice a day Rx Instructions: TAKE 1 CAPSULE BY MOUTH TWO TIMES DAILY amlodipine 10 mg tablet 10 mg BYMOUTH QPM Qty: 90 1RF lisinopril-hydrochlorothiazide 20-25 mg tablet See Rx Instructions .ROUTE .COMPLEX Qty: 90 1RF Dose Instruction: Take 1 tablet by mouth once daily Rx Instructions: Take 1 tablet by mouth once daily doxazosin 8 mg tablet See Rx Instructions .ROUTE .COMPLEX Qty: 90 1RF Dose Instruction: Take 1 tablet by mouth once daily Rx Instructions: Take 1 tablet by mouth once daily Xarelto 20 mg tablet 20 mg PO DAILY Qty: 90 1RF Date of admission: 05/24/25 15:36 Primary Care Provider: Alida Dunn Admitting Provider: Doc Pemberton Attending physician on admission: Doc Pemberton Condition: Stable Quality VTE Prophylaxis VTE prophylaxis: mechanical ordered
== END 2025-05-28 12:59 | disposition home health service (06) | DRG 501 ==
LOC: ANHED 17:23 → ANH3MEDSUR 17:58 → ANH2MED 18:31
PROVIDERS: Nurse Practitioner Family; Orthopaedic Surgery; Registered Nurse; Student in an Organized Health Care Education/Training Program; Admitting Provider Internal Medicine; Emergency Provider Emergency Medicine; PCP Nurse Practitioner; Visit Provider Physician Assistant
PROC: 0MBP0ZZ Excision of Left Knee Bursa and Ligament, Open Approach (ICD-10-PCS; principal; 2025-05-25 10:00)
DX: M71.162 Other infective bursitis, left knee (principal); I48.20 Chronic atrial fibrillation, unspecified; Z68.42 Body mass index [BMI] 45.0-49.9, adult; B95.61 Methicillin susceptible Staphylococcus aureus infection as the cause of diseases classified elsewhere; S80.02XA Contusion of left knee, initial encounter; W10.8XXA Fall (on) (from) other stairs and steps, initial encounter; E11.21 Type 2 diabetes mellitus with diabetic nephropathy; I10 Essential (primary) hypertension; M48.00 Spinal stenosis, site unspecified; E78.2 Mixed hyperlipidemia; E66.9 Obesity, unspecified; N40.0 Benign prostatic hyperplasia without lower urinary tract symptoms; M19.90 Unspecified osteoarthritis, unspecified site; Z79.01 Long term (current) use of anticoagulants; Z86.718 Personal history of other venous thrombosis and embolism; Z90.49 Acquired absence of other specified parts of digestive tract
CPT/HCPCS: 20610; 36415; 73564; 73701; 80048; 80053; 80202; 81001; 82565; 82948; 83036; 83605; 84550; 85025; 85610; 85730; 86140; 87040; 87070; 87075; 87181; 87205; 89051; 93005; 93971; 96365; 96366; 96367; 96375; 97161; 97165; 99285; A9270; G0378; J0330; J0690; J1815; J2405; J2704; J3010; J3373; J7120; Q9967

== ENCOUNTER 2025-09-28 10:39 | Outpatient (CLI) | payer MEDICARE, SELFPAY ==
--- OUTSIDE RECORDS SUMMARY | 2025-09-28 11:20 | XMS_ITS | Patient Health Record ---
Author Organization [facility] Address [address] [place] [address] Support Name Relationship Address Phone Yash Aguirre Guarantor Unknown [phone] Reason For Referral No Information Social History Social History Drugs/Alcohol: Social Info Question Answer Notes Drug Use Have you used drugs other than those for medical reasons in the past 12 months? No General Social Info Question Answer Notes Advanced Directives Do you have advanced directives? No Provided patient with DNR, living will and durable power of weight control lecturer for healthcare decision forms. Risk Questionnaire Social [...] drin lyudmila alcohol, or ride with a driver operator who has been drinking alcohol? No Eating [...] Start Date Coverage End Date [facility]/ [employer] PPO/HMO [address] [place] [id number] Yash Vargas Self - patient is the insured
--- OUTSIDE RECORDS SUMMARY | 2025-09-28 11:20 | XMS_ITS | Clinical Summary ---
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 Name Role Phone MatildeyoelRachelle hay Primary Care Provider [phone] Washington Zaman MD Unavailable [phone] Unknown, Notinfile Unavailable Unavailable Allergies No known active allergies Medications doxazosin (CARDURA) 8 mg tablet Take 1 tablet (8 mg total) by mouth loan servicing representative before breakfast 05/12/20 21 Active Xarelto 20 mg tablet Take 1 tablet (20 mg total) by mouth every evening 08/15/20 21 Active amLODIPine (NORVASC) 10 mg tablet Take 1 tablet (10 mg total) by mouth loan servicing representative before breakfast 02/20/20 25 Active finasteride (PROSCAR) 5 mg tablet Take 1 tablet (5 mg total) by mouth loan servicing representative before breakfast 02/20/20 25 Active levothyroxine (SYNTHROID) 25 mcg tablet Take 1 tablet (25 mcg total) by mouth loan servicing representative before breakfast 02/20/20 25 Active gabapentin (NEURONTIN) 300 mg capsule Take 1 capsule (300 mg total) by mouth 2 (two) times a day Active blood glucose diagnostic strip 1 each by other route as directed 1 strip 1 08/13/20 25 Active lancets misc 1 each by other route as directed 30 each 1 08/13/20 25 Active acetaminophen 500 mg capsule Take 2 capsules (1,000 mg total) by mouth every 6 (six) hours as needed for pain, headaches or fever 08/14/20 Active aspirin 81 mg chewable tablet Take 1 tablet (81 mg total) by mouth daily 08/15/20 Active carvediloL (COREG) 25 mg tablet Take 1 tablet (25 mg total) by mouth 2 (two) times a day 08/14/20 Active fenofibrate nanocrystallized (TRICOR) 145 mg tablet Take 1 tablet (145 mg total) by mouth daily 08/15/20 Active traZODone (DESYREL) 50 mg tablet Take 1 tablet (50 mg total) by mouth nightly 08/14/20 Active rosuvastatin (CRESTOR) 10 mg tablet Take 1 tablet (10 mg total) by mouth nightly 08/14/20 Active hydrALAZINE (APRESOLINE) 25 mg tablet Take 3 tablets (75 mg total) by mouth 3 (three) times a day 08/14/20 Active pen needle, diabetic (Pen Needle) 32 gauge x 5/32 needle Use as directed once a day. 100 each 08/14/20 25 Active pen needle, diabetic 32 gauge x 5/32 needle Use as directed 3 times a day. 100 each 08/14/20 Active glucagon 1 mg kit Inject 1 mg into the muscle once as directed by provider for low blood sugar. 1 kit 08/14/20 Active furosemide (LASIX) 40 mg tablet Take 1 tablet (40 mg total) by mouth daily 30 tablet 09/20/20 25 Active blood-glucose meter kit 1 kit 2 (two) times a day 1 kit 08/13/20 25 amiodarone (PACERONE) 200 mg tablet Take 1 tablet (200 mg total) by mouth 2 (two) times a day for 6 doses 08/15/20 25 Discontinu ed(Stop Taking at Discharge) amiodarone (PACERONE) 200 mg tablet Take 1 tablet (200 mg total) by mouth daily for 3 doses 08/18/20 25 Discontinu ed(Stop Taking at Discharge) amiodarone (PACERONE) 400 mg tablet Take 1 tablet (400 mg total) by mouth 2 (two) times a day for 1 dose 08/14/20 025 Discontinu ed(Stop Taking at Discharge) insulin degludec (TRESIBA) 100 unit/mL (3 mL) pen for injection Inject 0.22 mL (22 Units total) under the skin nightly 08/14/20 Discontinu ed(Stop Taking at Discharge) insulin lispro (ADMELOG) 100 unit/mL pen for injection Inject 11 Units under the skin 3 (three) times a day with meals (plus blood glucose mg/dL 150-199: 1 unit, 200-249: 2 units, 250-299: 3 units, 300-349: 4 units, 350 or greater: 5 units. Notify provider for blood glucose greater than 299 mg/dL. Max daily dose ) Refer to After Visit Summary for Sliding Scale Insulin Instructions . 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 Required BiPAP in ICU and continued at night after failed nocturnal desat study. Blood gases with respiratory acidosis and hypercapnia, improved with NIV (BiPAP). Pulm consulted. Patient qualifies for home BiPAP based on hypoventilation. Respiratory status has significantly improved and currently stable on nightly BiPAP - Continue lasix 40 mg PO daily - Continue BiPAP 15/6. 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 Required BiPAP in ICU and continued at night after failed nocturnal desat study. Blood gases with respiratory acidosis and hypercapnia, improved with NIV (BiPAP). Pulm consulted. Patient qualifies for home BiPAP based on hypoventilation. Respiratory status has significantly improved and currently stable on nightly BiPAP - Change lasix to 40 mg PO daily - Continue BiPAP 15/6. 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 Required bipap in ICU and continued at night after failed nocturnal desat study. Blood gases with respiratory acidosis and hypercapnia, improved with NIV (BiPAP). 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 Required bipap in ICU and continued at night after failed nocturnal desat study. Blood gases with respiratory acidosis and hypercapnia, improved with NIV (BiPAP). 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 Required bipap in ICU and continued at night after failed nocturnal desat study. Blood gases with respiratory acidosis and hypercapnia, improved with NIV (BiPAP). 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 Required bipap in ICU and continued at night after failed nocturnal desat study. Blood gases with respiratory acidosis and hypercapnia, improved with NIV (BiPAP). 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 Required bipap in ICU and continued at night after failed nocturnal desat study. Blood gases with respiratory acidosis and hypercapnia, improved with NIV (BiPAP). 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 Required bipap in ICU and continued at night after failed nocturnal desat study. Blood gases with respiratory acidosis and hypercapnia, improved with NIV (BiPAP). 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 Required bipap in ICU and continued at night after failed nocturnal desat study. Blood gases with respiratory acidosis and hypercapnia, improved with NIV (BiPAP). 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 Required bipap in ICU and continued at night after failed nocturnal desat study. Blood gases with respiratory acidosis and hypercapnia, improved with NIV (BiPAP). Wean oxygen as tolerated, currently needing 3L NC at rest and walking at short distances, trial 21% FIO2 with BiPAP, will need formal O2 assessment on DC Pulm c/s for BiPaP, continue settings at 15/6; home unit ordered; continue monitor tolerance and need to wear during sleep at night and with daytime naps. Unable to obtain morning ABG, but venous blood gas with acceptable PCO2 55 09/06 TTE: Concentric LV hypertrophy, LVEF 52%, G3DD (elevated LA pressure, restrictive physiology), Right ventricular dilatation, Severe right ventricular hypokinesis, estimated PASP 46.0 mmHg and is consistent with mild pulmonary hypertension (35-50mmHg). The IVC was >2.1 cm and collapsibility <50% (est. RA pressure 15 mmHg). 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 Required bipap in ICU and continued at night after failed nocturnal desat study. Blood gases with respiratory acidosis and hypercapnia, improved with NIV (BiPAP). Wean oxygen as tolerated, currently needing 3L NC at rest and walking at short distances, trial 21% FIO2 with BiPAP, will need formal O2 assessment on DC Pulm c/s for BiPaP, continue settings at 15/6; home unit ordered; continue monitor tolerance and need to wear during sleep at night and with daytime naps. Repeat ABG in am to see if need to adjust pressures 09/06 TTE: Concentric LV hypertrophy, LVEF 52%, G3DD (elevated LA pressure, restrictive physiology), Right ventricular dilatation, Severe right ventricular hypokinesis, estimated PASP 46.0 mmHg and is consistent with mild pulmonary hypertension (35-50mmHg). The IVC was >2.1 cm and collapsibility <50% (est. RA pressure 15 mmHg). 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 Required bipap in ICU and continued at night after failed nocturnal desat study. Blood gases with respiratory acidosis and hypercapnia, improved with NIV (BiPAP). Wean oxygen as tolerated, currently needing 3L NC at rest and walking at short distances, trial 21% FIO2 with BiPAP, will need formal O2 assessment on DC Pulm c/s for BiPaP, continue settings at 15/6; home unit ordered; continue monitor tolerance and need to wear during sleep at night and with daytime naps. Repeat ABG in am to see if need to adjust pressures 09/06 TTE: Concentric LV hypertrophy, LVEF 52%, G3DD (elevated LA pressure, restrictive physiology), Right ventricular dilatation, Severe right ventricular hypokinesis, estimated PASP 46.0 mmHg and is consistent with mild pulmonary hypertension (35-50mmHg). The IVC was >2.1 cm and collapsibility <50% (est. RA pressure 15 mmHg). 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 Required BiPAP in ICU and continued at night after failed nocturnal desat study. Blood gases with respiratory acidosis and hypercapnia, improved with NIV (BiPAP). Pulm consulted. Patient qualifies for home BiPAP based on hypoventilation. Respiratory status has significantly improved and currently stable on nightly BiPAP - Continue lasix 40 mg PO daily - Continue BiPAP 15/6. 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 Required BiPAP in ICU and continued at night after failed nocturnal desat study. Blood gases with respiratory acidosis and hypercapnia, improved with NIV (BiPAP). Pulm consulted. Patient qualifies for home BiPAP based on hypoventilation. Respiratory status has significantly improved and currently stable on nightly BiPAP - Change lasix to 40 mg PO daily - Continue BiPAP 15/6. 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 Required bipap in ICU and continued at night after failed nocturnal desat study. Blood gases with respiratory acidosis and hypercapnia, improved with NIV (BiPAP). 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 Required bipap in ICU and continued at night after failed nocturnal desat study. Blood gases with respiratory acidosis and hypercapnia, improved with NIV (BiPAP). 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 Required bipap in ICU and continued at night after failed nocturnal desat study. Blood gases with respiratory acidosis and hypercapnia, improved with NIV (BiPAP). 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 Required bipap in ICU and continued at night after failed nocturnal desat study. Blood gases with respiratory acidosis and hypercapnia, improved with NIV (BiPAP). 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 Required bipap in ICU and continued at night after failed nocturnal desat study. Blood gases with respiratory acidosis and hypercapnia, improved with NIV (BiPAP). 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 Required bipap in ICU and continued at night after failed nocturnal desat study. Blood gases with respiratory acidosis and hypercapnia, improved with NIV (BiPAP). 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 Required bipap in ICU and continued at night after failed nocturnal desat study. Blood gases with respiratory acidosis and hypercapnia, improved with NIV (BiPAP). 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 Required bipap in ICU and continued at night after failed nocturnal desat study. Blood gases with respiratory acidosis and hypercapnia, improved with NIV (BiPAP). Wean oxygen as tolerated, currently needing 3L NC at rest and walking at short distances, trial 21% FIO2 with BiPAP, will need formal O2 assessment on DC Pulm c/s for BiPaP, continue settings at 15/6; home unit ordered; continue monitor tolerance and need to wear during sleep at night and with daytime naps. Unable to obtain morning ABG, but venous blood gas with acceptable PCO2 55 09/06 TTE: Concentric LV hypertrophy, LVEF 52%, G3DD (elevated LA pressure, restrictive physiology), Right ventricular dilatation, Severe right ventricular hypokinesis, estimated PASP 46.0 mmHg and is consistent with mild pulmonary hypertension (35-50mmHg). The IVC was >2.1 cm and collapsibility <50% (est. RA pressure 15 mmHg). 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 Required bipap in ICU and continued at night after failed nocturnal desat study. Blood gases with respiratory acidosis and hypercapnia, improved with NIV (BiPAP). Wean oxygen as tolerated, currently needing 3L NC at rest and walking at short distances, trial 21% FIO2 with BiPAP, will need formal O2 assessment on DC Pulm c/s for BiPaP, continue settings at 15/6; home unit ordered; continue monitor tolerance and need to wear during sleep at night and with daytime naps. Repeat ABG in am to see if need to adjust pressures 09/06 TTE: Concentric LV hypertrophy, LVEF 52%, G3DD (elevated LA pressure, restrictive physiology), Right ventricular dilatation, Severe right ventricular hypokinesis, estimated PASP 46.0 mmHg and is consistent with mild pulmonary hypertension (35-50mmHg). The IVC was >2.1 cm and collapsibility <50% (est. RA pressure 15 mmHg). 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 Required bipap in ICU and continued at night after failed nocturnal desat study. Blood gases with respiratory acidosis and hypercapnia, improved with NIV (BiPAP). Wean oxygen as tolerated, currently needing 3L NC at rest and walking at short distances, trial 21% FIO2 with BiPAP, will need formal O2 assessment on DC Pulm c/s for BiPaP, continue settings at 15/6; home unit ordered; continue monitor tolerance and need to wear during sleep at night and with daytime naps. Repeat ABG in am to see if need to adjust pressures 09/06 TTE: Concentric LV hypertrophy, LVEF 52%, G3DD (elevated LA pressure, restrictive physiology), Right ventricular dilatation, Severe right ventricular hypokinesis, estimated PASP 46.0 mmHg and is consistent with mild pulmonary hypertension (35-50mmHg). The IVC was >2.1 cm and collapsibility <50% (est. RA pressure 15 mmHg). 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 Required BiPAP in ICU and continued at night after failed nocturnal desat study. Blood gases with respiratory acidosis and hypercapnia, improved with NIV (BiPAP). Pulm consulted. Patient qualifies for home BiPAP based on hypoventilation. Respiratory status has significantly improved and currently stable on nightly BiPAP - Continue lasix 40 mg PO daily - Continue BiPAP 15/6. 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 Required BiPAP in ICU and continued at night after failed nocturnal desat study. Blood gases with respiratory acidosis and hypercapnia, improved with NIV (BiPAP). Pulm consulted. Patient qualifies for home BiPAP based on hypoventilation. Respiratory status has significantly improved and currently stable on nightly BiPAP - Change lasix to 40 mg PO daily - Continue BiPAP 15/6. 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 Required bipap in ICU and continued at night after failed nocturnal desat study. Blood gases with respiratory acidosis and hypercapnia, improved with NIV (BiPAP). 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 Required bipap in ICU and continued at night after failed nocturnal desat study. Blood gases with respiratory acidosis and hypercapnia, improved with NIV (BiPAP). 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 Required bipap in ICU and continued at night after failed nocturnal desat study. Blood gases with respiratory acidosis and hypercapnia, improved with NIV (BiPAP). 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 Required bipap in ICU and continued at night after failed nocturnal desat study. Blood gases with respiratory acidosis and hypercapnia, improved with NIV (BiPAP). 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 Required bipap in ICU and continued at night after failed nocturnal desat study. Blood gases with respiratory acidosis and hypercapnia, improved with NIV (BiPAP). 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 Required bipap in ICU and continued at night after failed nocturnal desat study. Blood gases with respiratory acidosis and hypercapnia, improved with NIV (BiPAP). 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 Required bipap in ICU and continued at night after failed nocturnal desat study. Blood gases with respiratory acidosis and hypercapnia, improved with NIV (BiPAP). 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 Required bipap in ICU and continued at night after failed nocturnal desat study. Blood gases with respiratory acidosis and hypercapnia, improved with NIV (BiPAP). Wean oxygen as tolerated, currently needing 3L NC at rest and walking at short distances, trial 21% FIO2 with BiPAP, will need formal O2 assessment on DC Pulm c/s for BiPaP, continue settings at 15/6; home unit ordered; continue monitor tolerance and need to wear during sleep at night and with daytime naps. Unable to obtain morning ABG, but venous blood gas with acceptable PCO2 55 09/06 TTE: Concentric LV hypertrophy, LVEF 52%, G3DD (elevated LA pressure, restrictive physiology), Right ventricular dilatation, Severe right ventricular hypokinesis, estimated PASP 46.0 mmHg and is consistent with mild pulmonary hypertension (35-50mmHg). The IVC was >2.1 cm and collapsibility <50% (est. RA pressure 15 mmHg). 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 Required bipap in ICU and continued at night after failed nocturnal desat study. Blood gases with respiratory acidosis and hypercapnia, improved with NIV (BiPAP). Wean oxygen as tolerated, currently needing 3L NC at rest and walking at short distances, trial 21% FIO2 with BiPAP, will need formal O2 assessment on DC Pulm c/s for BiPaP, continue settings at 15/6; home unit ordered; continue monitor tolerance and need to wear during sleep at night and with daytime naps. Repeat ABG in am to see if need to adjust pressures 09/06 TTE: Concentric LV hypertrophy, LVEF 52%, G3DD (elevated LA pressure, restrictive physiology), Right ventricular dilatation, Severe right ventricular hypokinesis, estimated PASP 46.0 mmHg and is consistent with mild pulmonary hypertension (35-50mmHg). The IVC was >2.1 cm and collapsibility <50% (est. RA pressure 15 mmHg). 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 Required bipap in ICU and continued at night after failed nocturnal desat study. Blood gases with respiratory acidosis and hypercapnia, improved with NIV (BiPAP). Wean oxygen as tolerated, currently needing 3L NC at rest and walking at short distances, trial 21% FIO2 with BiPAP, will need formal O2 assessment on DC Pulm c/s for BiPaP, continue settings at 15/6; home unit ordered; continue monitor tolerance and need to wear during sleep at night and with daytime naps. Repeat ABG in am to see if need to adjust pressures 09/06 TTE: Concentric LV hypertrophy, LVEF 52%, G3DD (elevated LA pressure, restrictive physiology), Right ventricular dilatation, Severe right ventricular hypokinesis, estimated PASP 46.0 mmHg and is consistent with mild pulmonary hypertension (35-50mmHg). The IVC was >2.1 cm and collapsibility <50% (est. RA pressure 15 mmHg). Continue Lasix IV 20 mg IV daily, increased to 40 mg BID 09/08 Assessment & Plan (09/07/2025 6:02 PM CDT): Presented for acute hypercarbic resp failure that improved with NIV. Suspect chronic respiratory muscle weakness from BHARATHI/OHS?, possible restriction from cardiac surgery, diaphragmatic paresis/paralysis post op. Will benefit from [facility] non- invasive support given hospitalization for respiratory failure requiring ICU stay. - ABG 7.43 on usual FiO2 - PFTs 07/31/2025 showed normal lung volumes and low ERV and no obstruction. - overnight desat study with 9:26 under 88% spo2 - Should qualify for nocturnal non-invasive given above data - continue Bipap 15/6 qhs, wean Fio2 as tolerated - walk test when nearing discharge - please discuss Bilevel qualification with CM - Recommend outpatient follow up sleep medicine physician near home Assessment & Plan (09/07/2025 5:00 PM CDT): Suspected 2/2 untreated BHARATHI/OHS, VOL, ?possible reestrictive component from recent surgery/?phrenic nerve injury. Required bipap in ICU now down to 1L NC during the day and NPPV at night after failed nocturnal desat study. Blood gases with respiratory acidosis and hypercapnia, improved with NIV (BiPAP) -Wean oxygen as tolerated -Pulm hygiene -Pulm c/s for nocturnal BiPaP, continue settings at 15/6, will attempt to start Fio2 at 21%, home unit ordered -Diuresis: IV lasix 20mg daily -09/06 TTE: Concentric LV hypertrophy, LVEF 52%, G3DD (elevated LA pressure, restrictive physiology), Right ventricular dilatation, Severe right ventricular hypokinesis, estimated pulmonary artery systolic pressure is 46.0 mmHg. Estimated pulmonary artery systolic pressure is consistent with mild pulmonary hypertension (35-50mmHg). The IVC was >2.1 cm and collapsibility <50% (est. RA pressure 15 mmHg). Assessment & Plan (09/06/2025 8:31 AM CDT): Suspected 2/2 untreated BHARATHI/OHVS, VOL, ?possible reestrictive component from recent surgery/?phrenic nerve injury. Required bipap in ICU now down to 1L NC during the day and NPPV at night after failed nocturnal desat study -Wean oxygen as tolerated -Pulm hygiene -Pulm c/s for nocturnal bipap -Diuresis: IV lasix 20mg daily Assessment & Plan (09/06/2025 4:10 PM CDT): Presented for acute hypercarbic resp failure that improved with NIV. Suspect chronic respiratory muscle weakness from BHARATHI/OHS?, possible restriction from cardiac surgery. Will benefit from termite control service representative non-invasive support given hospitalization for respiratory failure requiring ICU stay. - ABG 7.43/62 on usual FiO2 - PFTs 07/31/2025 showed normal lung volumes and low ERV and no obstruction. - overnight desat study with 9:26 under 88% spo2 - Should qualify for nocturnal non-invasive given above data - continue Bipap 15/6 qhs, wean Fio2 as tolerated - walk test when nearing discharge Assessment & Plan (09/05/2025 6:16 PM CDT): Suspected 2/2 untreated BHARATHI/OHVS, VOL, ?possible reestrictive component from recent surgery/?phrenic nerve injury. Required bipap in ICU now down to 1L NC during the day and NPPV at night after failed nocturnal desat study -Wean oxygen as tolerated -Pulm hygiene -Pulm c/s for nocturnal bipap -Diuresis: IV lasix 20mg daily Debility 09/05/2025 Assessment & Plan (09/19/2025 9:31 AM CDT): Multifactorial - post cardiac as above needing inpatient rehabilitation, respiratory compromise as above, morbid obesity limiting mobility - PT/OT Assessment & Plan (09/18/2025 10:15 AM CDT): Multifactorial - post cardiac as above needing inpatient rehabilitation, respiratory compromise as above, morbid obesity limiting mobility - PT/OT Assessment & Plan (09/17/2025 8:40 AM CDT): Multifactorial - post cardiac as above needing inpatient rehabilitation, respiratory compromise as above, morbid obesity limiting mobility PT/OT Assessment & Plan (09/16/2025 3:20 PM CDT): Multifactorial - post cardiac as above needing inpatient rehabilitation, respiratory compromise as above, morbid obesity limiting mobility PT/OT Assessment & Plan (09/15/2025 8:32 AM CDT): Multifactorial - post cardiac as above needing inpatient rehabilitation, respiratory compromise as above, morbid obesity limiting mobility PT/OT Assessment & Plan (09/14/2025 8:26 AM CDT): Multifactorial - post cardiac as above needing inpatient rehabilitation, respiratory compromise as above, morbid obesity limiting mobility PT/OT Assessment & Plan (09/13/2025 8:09 AM CDT): Multifactorial - post cardiac as above needing inpatient rehabilitation, respiratory compromise as above, morbid obesity limiting mobility PT/OT Assessment & Plan (09/12/2025 7:54 AM CDT): Multifactorial - post cardiac as above needing inpatient rehabilitation, respiratory compromise as above, morbid obesity limiting mobility PT/OT Assessment & Plan (09/11/2025 7:46 AM CDT): Multifactorial - post cardiac as above needing inpatient rehabilitation, respiratory compromise as above, morbid obesity limiting mobility PT/OT Assessment & Plan (09/10/2025 3:01 PM CDT): Multifactorial - post cardiac as above needing inpatient rehabilitation, respiratory compromise as above, morbid obesity limiting mobility PT/OT Assessment & Plan (09/09/2025 8:06 AM CDT): Multifactorial - post cardiac as above needing inpatient rehabilitation, respiratory compromise as above, morbid obesity limiting mobility PT/OT Assessment & Plan (09/08/2025 3:16 PM CDT): Multifactorial - post cardiac as above needing inpatient rehabilitation, respiratory compromise as above, morbid obesity limiting mobility PT/OT Assessment & Plan (09/07/2025 5:00 PM CDT): -Multifactorial - post cardiac as above needing inpatient rehabilitation, respiratory compromise as above, morbid obesity limiting mobility -PT/OT Assessment & Plan (09/06/2025 8:31 AM CDT): -PT/OT Assessment & Plan (09/05/2025 6:16 PM CDT): -PT/OT Allergic rhinitis 08/13/2025 Esophagitis 08/13/2025 Hypertensive chronic kidney disease with stage 1 through stage 4 chronic kidney disease, or unspecified chronic kidney disease 08/13/2025 Metabolic syndrome 08/13/2025 Lumbago 08/13/2025 Patellar bursitis of left knee 08/13/2025 Positive for microalbuminuria 08/13/2025 Proteinuria 08/13/2025 Spinal stenosis of lumbar region 08/13/2025 Spondylosis of lumbar joint 08/13/2025 Tinea cruris 08/13/2025 Ulcers of both great toes 08/13/2025 Morbid obesity with body mass index (BMI) of 40. 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 Required BiPAP in ICU and continued at night after failed nocturnal desat study. Blood gases with respiratory acidosis and hypercapnia, improved with NIV (BiPAP). Pulm consulted. Patient qualifies for home BiPAP based on hypoventilation. Respiratory status has significantly improved and currently stable on nightly BiPAP - Continue lasix 40 mg PO daily - Continue BiPAP 15/6. 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 Required BiPAP in ICU and continued at night after failed nocturnal desat study. Blood gases with respiratory acidosis and hypercapnia, improved with NIV (BiPAP). Pulm consulted. Patient qualifies for home BiPAP based on hypoventilation. Respiratory status has significantly improved and currently stable on nightly BiPAP - Change lasix to 40 mg PO daily - Continue BiPAP 15/. 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 Required bipap in ICU and continued at night after failed nocturnal desat study. Blood gases with respiratory acidosis and hypercapnia, improved with NIV (BiPAP). 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 Required bipap in ICU and continued at night after failed nocturnal desat study. Blood gases with respiratory acidosis and hypercapnia, improved with NIV (BiPAP). 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 Required bipap in ICU and continued at night after failed nocturnal desat study. Blood gases with respiratory acidosis and hypercapnia, improved with NIV (BiPAP). 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 Required bipap in ICU and continued at night after failed nocturnal desat study. Blood gases with respiratory acidosis and hypercapnia, improved with NIV (BiPAP). 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 Required bipap in ICU and continued at night after failed nocturnal desat study. Blood gases with respiratory acidosis and hypercapnia, improved with NIV (BiPAP). 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 Required bipap in ICU and continued at night after failed nocturnal desat study. Blood gases with respiratory acidosis and hypercapnia, improved with NIV (BiPAP). 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 Required bipap in ICU and continued at night after failed nocturnal desat study. Blood gases with respiratory acidosis and hypercapnia, improved with NIV (BiPAP). 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 Required bipap in ICU and continued at night after failed nocturnal desat study. Blood gases with respiratory acidosis and hypercapnia, improved with NIV (BiPAP). Wean oxygen as tolerated, currently needing 3L NC at rest and walking at short distances, trial 21% FIO2 with BiPAP, will need formal O2 assessment on DC Pulm c/s for BiPaP, continue settings at 15/6; home unit ordered; continue monitor tolerance and need to wear during sleep at night and with daytime naps. Unable to obtain morning ABG, but venous blood gas with acceptable PCO2 55 09/06 TTE: Concentric LV hypertrophy, LVEF 52%, G3DD (elevated LA pressure, restrictive physiology), Right ventricular dilatation, Severe right ventricular hypokinesis, estimated PASP 46.0 mmHg and is consistent with mild pulmonary hypertension (35-50mmHg). The IVC was >2.1 cm and collapsibility <50% (est. RA pressure 15 mmHg). 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 Required bipap in ICU and continued at night after failed nocturnal desat study. Blood gases with respiratory acidosis and hypercapnia, improved with NIV (BiPAP). Wean oxygen as tolerated, currently needing 3L NC at rest and walking at short distances, trial 21% FIO2 with BiPAP, will need formal O2 assessment on DC Pulm c/s for BiPaP, continue settings at 15/6; home unit ordered; continue monitor tolerance and need to wear during sleep at night and with daytime naps. Repeat ABG in am to see if need to adjust pressures 09/06 TTE: Concentric LV hypertrophy, LVEF 52%, G3DD (elevated LA pressure, restrictive physiology), Right ventricular dilatation, Severe right ventricular hypokinesis, estimated PASP 46.0 mmHg and is consistent with mild pulmonary hypertension (35-50mmHg). The IVC was >2.1 cm and collapsibility <50% (est. RA pressure 15 mmHg). 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 Required bipap in ICU and continued at night after failed nocturnal desat study. Blood gases with respiratory acidosis and hypercapnia, improved with NIV (BiPAP). Wean oxygen as tolerated, currently needing 3L NC at rest and walking at short distances, trial 21% FIO2 with BiPAP, will need formal O2 assessment on DC Pulm c/s for BiPaP, continue settings at 15/6; home unit ordered; continue monitor tolerance and need to wear during sleep at night and with daytime naps. Repeat ABG in am to see if need to adjust pressures 09/06 TTE: Concentric LV hypertrophy, LVEF 52%, G3DD (elevated LA pressure, restrictive physiology), Right ventricular dilatation, Severe right ventricular hypokinesis, estimated PASP 46.0 mmHg and is consistent with mild pulmonary hypertension (35-50mmHg). The IVC was >2.1 cm and collapsibility <50% (est. RA pressure 15 mmHg). Continue Lasix IV 20 mg IV daily, increased to 40 mg BID 09/08 Assessment & Plan (09/07/2025 6:02 PM CDT): Presented for acute hypercarbic resp failure that improved with NIV. Suspect chronic respiratory muscle weakness from BHARATHI/OHS?, possible restriction from cardiac surgery, diaphragmatic paresis/paralysis post op. Will benefit from [facility] non- invasive support given hospitalization for respiratory failure requiring ICU stay. - ABG 7.43/62 on usual FiO2 - PFTs 07/31/2025 showed normal lung volumes and low ERV and no obstruction. - overnight desat study with 9:26 under 88% spo2 - Should qualify for nocturnal non-invasive given above data - continue Bipap 15/6 qhs, wean Fio2 as tolerated - walk test when nearing discharge - please discuss Bilevel qualification with CM - Recommend outpatient follow up sleep medicine physician near home Assessment & Plan (09/06/2025 4:10 PM CDT): Presented for acute hypercarbic resp failure that improved with NIV. Suspect chronic respiratory muscle weakness from BHARATHI/OHS?, possible restriction from cardiac surgery. Will benefit from termite control service representative non-invasive support given hospitalization for respiratory failure requiring ICU stay. - ABG 7.43/62 on usual FiO2 - PFTs 07/31/2025 showed normal lung volumes and low ERV and no obstruction. - overnight desat study with 9:26 under 88% spo2 - Should qualify for nocturnal non-invasive given above data - continue Bipap 15/6 qhs, wean Fio2 as tolerated - walk test when nearing discharge Renal insufficiency 08/12/2025 Assessment & Plan (08/13/2025 4:18 PM CDT): Had been on IV lasix for LE edema Has chronic lymphedema which is relatively the same - changed 08/13 Creat today up to 2.1, switched to po lasix but will hold today Home diuretic is: Zestoretic daily BMP daily Abdominal aortic aneurysm (AAA) 07/31/2025 Hypertension 07/30/2025 Assessment & Plan (09/19/2025 9:31 AM CDT): On amlodipine, carvedilol, doxazosin, and hydralazine. Held initially on arrival to ICU due to critical illness but BP has been stable and reintroducing as able. - Continue home amlodipine, carvedilol, doxazosin - Restart home hydralazine on discharge Assessment & Plan (09/18/2025 10:15 AM CDT): On amlodipine, carvedilol, doxazosin, and hydralazine. Held initially on arrival to ICU due to critical illness but BP has been stable and reintroducing as able. - Continue home amlodipine, carvedilol - Restart home doxazosin - Hold home hydralazine for now Assessment & Plan (09/17/2025 8:40 AM CDT): Continue home amlodipine, carvedilol Home cardura, hydralazine on hold for now Assessment & Plan (09/16/2025 3:20 PM CDT): Continue home amlodipine, carvedilol Home cardura, hydralazine on hold for now Assessment & Plan (09/15/2025 10:35 AM CDT): Continue home amlodipine, carvedilol Home cardura, hydralazine on hold for now Assessment & Plan (09/14/2025 8:26 AM CDT): Continue home amlodipine, coreg, hydralazine Home cardura on hold for now Assessment & Plan (09/13/2025 8:09 AM CDT): Continue home amlodipine, coreg, hydralazine Home cardura on hold for now Assessment & Plan (09/12/2025 7:54 AM CDT): Continue home amlodipine, coreg, hydralazine Home cardura on hold for now Assessment & Plan (09/11/2025 7:46 AM CDT): Continue home amlodipine, coreg, hydralazine Home cardura on hold for now Assessment & Plan (09/10/2025 3:01 PM CDT): Continue home amlodipine, coreg, hydralazine Home cardura on hold for now Assessment & Plan (09/09/2025 8:06 AM CDT): Continue home amlodipine, coreg, hydralazine Home cardura on hold for now Assessment & Plan (09/08/2025 3:16 PM CDT): Continue home amlodipine, coreg, hydralazine Home cardura on hold for now Assessment & Plan (09/07/2025 5:00 PM CDT): -Continue home amlodipine, coreg, hydralazine -Home cardura on hold for now Assessment & Plan (09/06/2025 8:31 AM CDT): -Continue home amlodipine, coreg, hydralazine -Home cardura on hold for now Assessment & Plan (09/05/2025 6:16 PM CDT): -Continue home amlodipine, coreg, hydralazine -Home cardura on hold for now Assessment & Plan (08/12/2025 11:37 AM CDT): -Monitor VS Q4H and continuous telemetry -Continue Amlodipine 10mg, coreg 25 BID, hydral 75 TID -IV lasix 40 daily - hold today due to elevation in creatinine -Holding home clonidine -q4h vitals Type 2 diabetes mellitus 07/30/2025 Assessment & Plan (09/19/2025 9:31 AM CDT): Home regimen: tresiba 35U QHS. Has been on SSI only in ICU with fair control. Will stop as patient's BG has remained very stable over several days - Stop POCT glucose Assessment & Plan (09/18/2025 10:15 AM CDT): Home regimen: tresiba 35U QHS. Has been on SSI only in ICU with fair control. Will stop as patient's BG has remained very stable over several days - Stop POCT glucose Assessment & Plan (09/17/2025 8:40 AM CDT): Home regimen: tresiba 35U QHS. Has been on SSI only in ICU with fair control SSI continued BG checks within acceptable range Assessment & Plan (09/16/2025 3:20 PM CDT): Home regimen: tresiba 35U QHS. Has been on SSI only in ICU with fair control SSI continued BG checks within acceptable range Assessment & Plan (09/15/2025 8:32 AM CDT): Home regimen: tresiba 35U QHS. Has been on SSI only in ICU with fair control SSI continued BG checks within acceptable range Assessment & Plan (09/14/2025 8:26 AM CDT): Home regimen: tresiba 35U QHS. Has been on SSI only in ICU with fair control SSI continued BG checks within acceptable range Assessment & Plan (09/13/2025 8:09 AM CDT): Home regimen: tresiba 35U QHS. Has been on SSI only in ICU with fair control SSI continued BG checks within acceptable range Assessment & Plan (09/12/2025 7:54 AM CDT): Home regimen: tresiba 35U QHS. Has been on SSI only in ICU with fair control SSI continued BG checks within acceptable range Assessment & Plan (09/11/2025 7:46 AM CDT): Home regimen: tresiba 35U QHS. Has been on SSI only in ICU with fair control SSI continued BG checks within acceptable range Assessment & Plan (09/10/2025 3:01 PM CDT): Home regimen: tresiba 35U QHS. Has been on SSI only in ICU with fair control SSI continued BG checks within acceptable range Assessment & Plan (09/09/2025 8:06 AM CDT): Home regimen: tresiba 35U QHS. Has been on SSI only in ICU with fair control SSI continued BG checks within acceptable range Assessment & Plan (09/08/2025 3:16 PM CDT): Home regimen: tresiba 35U QHS. Has been on SSI only in ICU with fair control SSI continued BG checks within acceptable range Assessment & Plan (09/07/2025 8:45 AM CDT): Home regimen: tresiba 35U QHS -Has been on SSI only in ICU with fair control; continue and add basal as needed Assessment & Plan (09/06/2025 8:31 AM CDT): Home regimen: tresiba 35U QHS -Has been on SSI only in ICU with fair control; continue and add basal as needed Assessment & Plan (09/05/2025 6:16 PM CDT): Home regimen: tresiba 35U QHS -Has been on SSI only in ICU with fair control; continue and add basal as needed Assessment & Plan (08/13/2025 4:17 PM CDT): -Admit A1C 7.0 -Holding home Metformin -Monitor accu-checks ACHS -Added nightly Tresiba - increase as needed -Continue with meal scheduled lispro and SSI -Continue carb consistent diet - glucoses 170-186 Pt without a solid understanding of his diabetes or meds. Ask for Endo to see today based on the nurse educator's belief that his home regime isn't going to be sufficient. They saw and will leave recs for us BPH (benign prostatic hyperplasia) 07/30/2025 Assessment & Plan (09/19/2025 9:31 AM CDT): - Continue finasteride - External catheter in place Assessment & Plan (09/18/2025 10:15 AM CDT): - Continue finasteride - External catheter in place Assessment & Plan (09/17/2025 8:40 AM CDT): Continue finasteride External catheter in place Assessment & Plan (09/16/2025 3:20 PM CDT): Continue finasteride External catheter in place Assessment & Plan (09/15/2025 8:32 AM CDT): Continue finasteride External catheter in place Assessment & Plan (09/14/2025 8:26 AM CDT): Continue finasteride External catheter in place Assessment & Plan (09/13/2025 8:09 AM CDT): Continue finasteride External catheter in place Assessment & Plan (09/12/2025 7:54 AM CDT): Continue finasteride External catheter in place Assessment & Plan (09/11/2025 7:46 AM CDT): Continue finasteride External catheter in place Assessment & Plan (09/10/2025 3:01 PM CDT): Continue finasteride External catheter in place Assessment & Plan (09/09/2025 8:06 AM CDT): Continue finasteride External catheter in place Assessment & Plan (09/08/2025 3:16 PM CDT): Continue finasteride External catheter in place Assessment & Plan (09/07/2025 8:45 AM CDT): -Continue finasteride Assessment & Plan (09/06/2025 8:31 AM CDT): -Continue finasteride Assessment & Plan (09/05/2025 6:16 PM CDT): -Continue finasteride Assessment & Plan (07/31/2025 12:32 PM CDT): -Continue home Doxazosin 8mg daily -Continue home Proscar 5mg daily Hyperlipidemia 07/30/2025 Assessment & Plan (09/19/2025 9:31 AM CDT): - Continue crestor, fenofibrate Assessment & Plan (09/18/2025 10:15 AM CDT): - Continue crestor Assessment & Plan (09/17/2025 8:40 AM CDT): Continue crestor Assessment & Plan (09/16/2025 3:20 PM CDT): Continue crestor Assessment & Plan (09/15/2025 8:32 AM CDT): Continue crestor Assessment & Plan (09/14/2025 8:26 AM CDT): Continue crestor Assessment & Plan (09/13/2025 8:09 AM CDT): Continue crestor Assessment & Plan (09/12/2025 7:54 AM CDT): Continue crestor Assessment & Plan (09/11/2025 7:46 AM CDT): Continue crestor Assessment & Plan (09/10/2025 3:01 PM CDT): Continue crestor Assessment & Plan (09/09/2025 8:06 AM CDT): Continue crestor Assessment & Plan (09/08/2025 3:16 PM CDT): Continue crestor Assessment & Plan (09/07/2025 8:45 AM CDT): -Continue crestor Assessment & Plan (09/06/2025 8:31 AM CDT): -Continue crestor Assessment & Plan (09/05/2025 6:16 PM CDT): -Continue crestor Assessment & Plan (08/08/2025 3:04 PM CDT): -Continue rosuvastatin and Tricor -Encourage low fat diet Hypothyroidism 07/30/2025 Assessment & Plan (09/19/2025 9:31 AM CDT): - Continue home synthroid Assessment & Plan (09/18/2025 10:15 AM CDT): - Continue home synthroid Assessment & Plan (09/17/2025 8:40 AM CDT): Continue home synthroid Assessment & Plan (09/16/2025 3:20 PM CDT): Continue home synthroid Assessment & Plan (09/15/2025 8:32 AM CDT): Continue home synthroid Assessment & Plan (09/14/2025 8:26 AM CDT): Continue home synthroid Assessment & Plan (09/13/2025 8:09 AM CDT): Continue home synthroid Assessment & Plan (09/12/2025 7:54 AM CDT): Continue home synthroid Assessment & Plan (09/11/2025 7:46 AM CDT): Continue home synthroid Assessment & Plan (09/10/2025 3:01 PM CDT): Continue home synthroid Assessment & Plan (09/09/2025 8:06 AM CDT): Continue home synthroid Assessment & Plan (09/08/2025 3:16 PM CDT): Continue home synthroid Assessment & Plan (09/07/2025 8:45 AM CDT): -Continue home synthroid Assessment & Plan (09/06/2025 8:31 AM CDT): -Continue home synthroid Assessment & Plan (09/05/2025 6:16 PM CDT): -Continue home synthroid Assessment & Plan (08/08/2025 3:05 PM CDT): -Continue home Levothyroxine 25mcg daily Atrial fibrillation 07/30/2025 Assessment & Plan (09/19/2025 9:31 AM CDT): S/p Maze and SANAZ clip Jul 2025 - Continue home coreg, xarelto Assessment & Plan (09/18/2025 10:15 AM CDT): S/p Maze and SANAZ clip Sept 2024 - Continue home coreg, xarelto Assessment & Plan (09/17/2025 8:40 AM CDT): S/p Maze and SANAZ clip Sept 2024 Continue home coreg, xarelto Assessment & Plan (09/16/2025 3:20 PM CDT): S/p Maze and SANAZ clip Sept 2024 Continue home coreg, xarelto Assessment & Plan (09/15/2025 8:32 AM CDT): S/p Maze and SANAZ clip Sept 2024 Continue home coreg, xarelto Assessment & Plan (09/14/2025 8:26 AM CDT): S/p Maze and SANAZ clip Jul 2025 Continue home coreg, xarelto Assessment & Plan (09/13/2025 8:09 AM CDT): S/p Maze and SANAZ clip Jul 2025 Continue home coreg, xarelto Assessment & Plan (09/12/2025 7:54 AM CDT): S/p Maze and SANAZ clip Jul 2025 Continue home coreg, xarelto Assessment & Plan (09/11/2025 7:46 AM CDT): S/p Maze and SANAZ clip Jul 2025 Continue home coreg, xarelto Assessment & Plan (09/10/2025 3:01 PM CDT): S/p Maze and SANAZ clip Sept 2024 Continue home coreg, xarelto Assessment & Plan (09/09/2025 8:06 AM CDT): S/p Maze and SANAZ clip Sept 2024 Continue home coreg, xarelto Assessment & Plan (09/08/2025 3:16 PM CDT): S/p Maze and SANAZ clip Jul 2025 Continue home coreg, xarelto Assessment & Plan (09/07/2025 8:45 AM CDT): S/p Maze and SANAZ clip Jul 2025 -Continue home coreg, xarelto Assessment & Plan (09/06/2025 8:31 AM CDT): S/p Maze and SANAZ clip Jul 2025 -Continue home coreg, xarelto Assessment & Plan (09/05/2025 5:50 PM CDT): S/p Maze and SANAZ clip Jul 2025 -Continue home coreg, xarelto Assessment & Plan (08/13/2025 4:21 PM CDT): -Patient uncertain of Afib diagnosis, but documented in chart, anticoagulated with Xarelto at home. Re-educated -Afib RVR post op on 08/07- given several amio boluses then transitioned to infusion -Home metoprolol changed to coreg 25 mg BID -Amio infusion completed 08/09- transitioned to po 400 mg TID x 3 days, then 400 mg BID x 3 days, 200 mg BID x 3 days, 200 mg daily x 3 days, then off -Daily Qtc checks (today 481) -Monitor electrolytes and replace as needed -Bival transitioned back to home Xarelto 08/09 - went into NSR 08/13 History of small bowel obstruction 07/30/2025 Assessment & Plan (07/30/2025 5:28 PM CDT): 12/2024: s/p exploratory laparotomy for SBO with abdominal adhesiolysis Cellulitis of left knee 07/30/2025 Assessment & Plan (07/30/2025 5:32 PM CDT): History of cellulitis of left knee in May 2025 -s/p I&D of left knee -Completed IV antibiotics and PO Doxycycline Aortic regurgitation 07/30/2025 Assessment & Plan (08/13/2025 4:23 PM CDT): 08/01: S/p ascending aortic aneurysm repair (28MM gelweave), bio AVR (29mm magna ease), MAZE, SANAZ clip with sternal plating Intra-op AMNA: Normal biventricular function, no AI on no inotropes. Currently NSR 50s, stable BP. - Daily ASA/statin/fenofibrate - BP goals: MAP 70-70 and SBP <150. - EPW capped - will cut at discharge - continue Coreg 25 mg BID - continue Hydralazine 75 mg BID - Amlodipine 10 mg daily - Restarted xarelto and doxazosin - Lasix 40 mg IV daily- patient with chronic LE lymphedema - switched to po lasix today (creat up today) - Afib with RVR, to NSR 08/13 - Continue carvedilol 25 BID - On bival infusion for Afib and hx RLE DVT- changed to home Xarelto 08/09 - Wean O2 for SpO2 > 92%- aggressive IS and pulm hygiene, currently on 1L n.c with sleep and prn. - 2vCXR: 08/09 Slightly increased opacity in left mid to lower hemithorax represents combination of effusion and atelectasis. - Lymphedema wraps replaced to LE -changed 08/13 History of DVT (deep vein thrombosis) 07/30/2025 Assessment & Plan (08/09/2025 1:24 PM CDT): Venous dopplers (08/03): + DVT in the R femoral & peroneal veins - Hx Afib, currently rate controlled s/p MAZE, SANAZ clip - Home Xarelto resumed Aneurysm of ascending aorta without rupture 05/23 Assessment & Plan (08/08/2025 3:10 PM CDT): S/p ascending aortic aneurysm repair, bio AVR, MAZE, LLA clip See Aortic regurgitation problem Aneurysm of the ascending aorta, without rupture 06/06/2025 Osteoarthritis of both knees 04/07/2023 Lymphedema of both lower extremities 08/07/2021 Assessment & Plan (09/19/2025 9:31 AM CDT): Suspect due to obesity, RHF with PH. Lymphedema team consulted. Would benefit from long-term therapy but not short-term. Would not benefit from compression from tubigrip given abnormal LE contours and compression bandaging contraindicated due to recent AMS and high fall risk. Managing with PO lasix - Lymphedema consulted - Lasix as elsewhere Assessment & Plan (09/18/2025 10:15 AM CDT): Suspect due to obesity, RHF with PH. Lymphedema team consulted. Would benefit from long-term therapy but not short-term. Would not benefit from compression from tubigrip given abnormal LE contours and compression bandaging contraindicated due to recent AMS and high fall risk. Managing with PO lasix - Lymphedema consulted - Lasix as elsewhere Assessment & Plan (09/17/2025 8:40 AM CDT): Suspect due to obesity, RHF with PH Lymphedema c/s: Patient would benefit from long-term lymphedema therapy, but would not benefit from lymphedema therapy provided short-term. Additionally, due to abnormal LE contours patient would not benefit from compression provided by tubigrip. Compression bandaging is contraindicated, secondary to patient with altered mental status and high fall risk. Assessment & Plan (09/16/2025 3:20 PM CDT): Suspect due to obesity, RHF with PH Lymphedema c/s: Patient would benefit from long-term lymphedema therapy, but would not benefit from lymphedema therapy provided short-term. Additionally, due to abnormal LE contours patient would not benefit from compression provided by tubigrip. Compression bandaging is contraindicated, secondary to patient with altered mental status and high fall risk. Assessment & Plan (09/15/2025 8:32 AM CDT): Suspect due to obesity, RHF with PH Lymphedema c/s: Patient would benefit from long-term lymphedema therapy, but would not benefit from lymphedema therapy provided short-term. Additionally, due to abnormal LE contours patient would not benefit from compression provided by tubigrip. Compression bandaging is contraindicated, secondary to patient with altered mental status and high fall risk. Assessment & Plan (09/14/2025 8:26 AM CDT): Suspect due to obesity, RHF with PH Lymphedema c/s: Patient would benefit from long-term lymphedema therapy, but would not benefit from lymphedema therapy provided short-term. Additionally, due to abnormal LE contours patient would not benefit from compression provided by tubigrip. Compression bandaging is contraindicated, secondary to patient with altered mental status and high fall risk. Assessment & Plan (09/13/2025 8:09 AM CDT): Suspect due to obesity, RHF with PH Lymphedema c/s: Patient would benefit from long-term lymphedema therapy, but would not benefit from lymphedema therapy provided short-term. Additionally, due to abnormal LE contours patient would not benefit from compression provided by tubigrip. Compression bandaging is contraindicated, secondary to patient with altered mental status and high fall risk. Assessment & Plan (09/12/2025 7:54 AM CDT): Suspect due to obesity, RHF with PH Lymphedema c/s: Patient would benefit from long-term lymphedema therapy, but would not benefit from lymphedema therapy provided short-term. Additionally, due to abnormal LE contours patient would not benefit from compression provided by tubigrip. Compression bandaging is contraindicated, secondary to patient with altered mental status and high fall risk. Assessment & Plan (09/11/2025 3:49 PM CDT): Suspect due to obesity, RHF with PH Lymphedema c/s: Patient would benefit from long-term lymphedema therapy, but would not benefit from lymphedema therapy provided short-term. Additionally, due to abnormal LE contours patient would not benefit from compression provided by tubigrip. Compression bandaging is contraindicated, secondary to patient with altered mental status and high fall risk. Assessment & Plan (09/10/2025 3:01 PM CDT): Suspect due to obesity, RHF with PH Lymphedema c/s: Patient would benefit from long-term lymphedema therapy, but would not benefit from lymphedema therapy provided short-term. Additionally, due to abnormal LE contours patient would not benefit from compression provided by tubigrip. Compression bandaging is contraindicated, secondary to patient with altered mental status and high fall risk. Improving on diuretics Assessment & Plan (09/09/2025 12:32 PM CDT): Suspect due to obesity, RHF with PH Lymphedema c/s: Patient would benefit from long-term lymphedema therapy, but would not benefit from lymphedema therapy provided short-term. Additionally, due to abnormal LE contours patient would not benefit from compression provided by tubigrip. Compression bandaging is contraindicated, secondary to patient with altered mental status and high fall risk. Continue diuretics, improved edema Assessment & Plan (09/08/2025 3:16 PM CDT): Suspect due to obesity, RHF with PH Lymphedema c/s: Patient would benefit from long-term lymphedema therapy, but would not benefit from lymphedema therapy provided short-term. Additionally, due to abnormal LE contours patient would not benefit from compression provided by tubigrip. Compression bandaging is contraindicated, secondary to patient with altered mental status and high fall risk. Continue diuretics Assessment & Plan (09/07/2025 5:00 PM CDT): -Lymphedema c/s, recommend outpt therapy -Continue diuretics Assessment & Plan (09/06/2025 8:31 AM CDT): -Lymphedema c/s Assessment & Plan (09/05/2025 5:50 PM CDT): -Lymphedema c/s Assessment & Plan (03/04/2022 1:59 PM CDT): [...] right lower extremity 08/07/2021 Assessment & Plan (09/19/2025 9:31 AM CDT): - Continue home Xarelto Assessment & Plan (09/18/2025 10:15 AM CDT): - Continue home Xarelto Assessment & Plan (09/17/2025 8:40 AM CDT): Continue home Xarelto Assessment & Plan (09/16/2025 3:20 PM CDT): Continue home Xarelto Assessment & Plan (09/15/2025 8:32 AM CDT): Continue home Xarelto Assessment & Plan (09/14/2025 8:26 AM CDT): Continue home Xarelto Assessment & Plan (09/13/2025 8:09 AM CDT): Continue home Xarelto Assessment & Plan (09/12/2025 7:54 AM CDT): Continue home Xarelto Assessment & Plan (09/11/2025 7:46 AM CDT): Continue home Xarelto Assessment & Plan (09/10/2025 3:01 PM CDT): Continue home Xarelto Assessment & Plan (09/09/2025 8:06 AM CDT): Continue home Xarelto Assessment & Plan (09/08/2025 3:16 PM CDT): Continue home Xarelto Assessment & Plan (09/07/2025 8:45 AM CDT): -Continue home Xarelto Assessment & Plan (09/06/2025 8:31 AM CDT): -Continue home Xarelto Assessment & Plan (09/05/2025 5:50 PM CDT): -Continue home Xarelto Assessment & Plan (03/04/2022 1:58 PM CDT): symptoms have resolved. Needs compression therapy. Encouraged the use of pumps and compression stockings. 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 Symptoms have resolved. Continue compression Assessment & Plan (08/07/2021 9:38 AM CDT): Superficial venous thrombosis of the right great saphenous vein. Continue compression therapy Resolved Problems Problem Noted Date Diagnosed Date Resolved Date GOLDIE (acute kidney injury) 09/05/2025 Assessment & Plan (09/18/2025 10:15 AM CDT): Unclear baseline Cr, adm 1.93, last discharge 2.29. Resolved to baseline with monitoring Assessment & Plan (09/17/2025 8:40 AM CDT): Unclear baseline Cr, adm 1.93, last discharge 2.29. As low as 1.5 this admission. Diurese as tolerated Avoid renal toxins, renally dose meds Trend BMP and improved Assessment & Plan (09/16/2025 3:20 PM CDT): Unclear baseline Cr, adm 1.93, last discharge 2.29. As low as 1.5 this admission. Diurese as tolerated Avoid renal toxins, renally dose meds Trend BMP and improved Assessment & Plan (09/15/2025 8:32 AM CDT): Unclear baseline Cr, adm 1.93, last discharge 2.29. As low as 1.5 this admission. Diurese as tolerated Avoid renal toxins, renally dose meds Trend BMP and improved Assessment & Plan (09/14/2025 8:26 AM CDT): Unclear baseline Cr, adm 1.93, last discharge 2.29. As low as 1.5 this admission. Diurese as tolerated Avoid renal toxins, renally dose meds Trend BMP and improved Assessment & Plan (09/13/2025 8:09 AM CDT): Unclear baseline Cr, adm 1.93, last discharge 2.29. As low as 1.5 this admission. Diurese as tolerated Avoid renal toxins, renally dose meds Trend BMP and improved Assessment & Plan (09/12/2025 7:54 AM CDT): Unclear baseline Cr, adm 1.93, last discharge 2.29. As low as 1.5 this admission. Diurese as tolerated Avoid renal toxins, renally dose meds Trend BMP and improved Assessment & Plan (09/11/2025 3:49 PM CDT): Unclear baseline Cr, adm 1.93, last discharge 2.29. As low as 1.5 this admission. Diurese as tolerated Avoid renal toxins, renally dose meds Trend BMP and improved Assessment & Plan (09/10/2025 3:01 PM CDT): Unclear baseline Cr, adm 1.93, last discharge 2.29 Diurese as tolerated Avoid renal toxins, renally dose meds Trend BMP and improved Hold today's Lasix and reassess in am Assessment & Plan (09/09/2025 8:06 AM CDT): Unclear baseline Cr, adm 1.93, last discharge 2.29 Gentle diuresis Avoid renal toxins, renally dose meds Trend BMP and improving Assessment & Plan (09/08/2025 3:16 PM CDT): Unclear baseline Cr, adm 1.93, last discharge 2.29 Gentle diuresis Avoid renal toxins, renally dose meds Trend BMP and improving Assessment & Plan (09/07/2025 5:00 PM CDT): Unclear baseline Cr, adm 1.93, last discharge 2.29 -Gentle diuresis -Avoid renal toxins, renally dose meds -Trend BMP and improving Assessment & Plan (09/06/2025 8:31 AM CDT): Unclear baseline Cr, adm 1.93, last discharge 2.29 -Trend BMP -Gentle diuresis -Avoid renal toxins, renally dose meds Assessment & Plan (09/05/2025 6:16 PM CDT): Unclear baseline Cr, adm 1.93, last discharge 2.29 -Trend BMP -Gentle diuresis -Avoid renal toxins, renally dose meds Encephalopathy 09/03/2025 09/18/2025 Assessment & Plan (09/18/2025 10:15 AM CDT): Was somonolent in setting of hypercapnea. Resolved with treatment of hypercarbia as elsewhere - Management of acute respiratory failure as elsewhere - Avoid sedating meds Assessment & Plan (09/17/2025 8:40 AM CDT): Was somonolent in setting of hypercapnea, improved with improvement in blood gas. Use BiPAP when asleep and with naps Avoid and adjust down sedating meds Assessment & Plan (09/16/2025 3:20 PM CDT): Was somonolent in setting of hypercapnea, improved with improvement in blood gas. Use BiPAP when asleep and with naps Avoid and adjust down sedating meds Assessment & Plan (09/15/2025 10:35 AM CDT): Was somonolent in setting of hypercapnea, improved with improvement in blood gas. Use BiPAP when asleep and with naps Avoid and adjust down sedating meds Assessment & Plan (09/14/2025 8:26 AM CDT): Was somonolent in setting of hypercapnea, improved with improvement in blood gas. Use BiPAP with naps Avoid and adjust down sedating meds Assessment & Plan (09/13/2025 8:09 AM CDT): Was somonolent in setting of hypercapnea, improved with improvement in blood gas. Use BiPAP with naps Avoid and adjust down sedating meds Assessment & Plan (09/12/2025 7:54 AM CDT): Was somonolent in setting of hypercapnea, improved with improvement in blood gas. Use BiPAP with naps Avoid and adjust down sedating meds Assessment & Plan (09/11/2025 3:49 PM CDT): Was somonolent in setting of hypercapnea, improved with improvement in blood gas. Use BiPAP with naps Avoid and adjust down sedating meds Assessment & Plan (09/10/2025 3:01 PM CDT): Was somonolent in setting of hypercapnea, improved with improvement in blood gas. Use BiPAP with naps Avoid and adjust down sedating meds Assessment & Plan (09/09/2025 8:06 AM CDT): Was somonolent in setting of hypercapnea, improved with improvement in blood gas. Use BiPAP with naps Avoid and adjust down sedating meds Assessment & Plan (09/08/2025 3:16 PM CDT): Was somonolent in setting of hypercapnea, improved with improvement in blood gas. Use BiPAP with naps Avoid and adjust down sedating meds Assessment & Plan (09/07/2025 8:45 AM CDT): Was somonolent in setting of hypercapnea, improved with improvement in blood gas. Had an episode of confusion this morning which seems to have resolved. Possible delirium component -CTM -If recurs/worsens, may need to reduce gabapentin Assessment & Plan (09/06/2025 8:31 AM CDT): Was somonolent in setting of hypercapnea, improved with improvement in blood gas. Had an episode of confusion this morning which seems to have resolved. Possible delirium component -CTM -If recurs/worsens, may need to reduce gabapentin Assessment & Plan (09/05/2025 5:50 PM CDT): Was somonolent in setting of hypercapnea, improved with improvement in blood gas. Had an episode of confusion this morning which seems to have resolved. 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 07/30/2025 07/30/2025 Encounters Date Type Department Care Team Description 09/25/2025 [facility] Initial Outreach [facility] [address] [address] Silvia Mcdaniels, DONA 09/21/2025 [facility] Initial [facility]reach [facility] [address] [address] Silvia Mcdaniels, DONA 09/20/2025 [facility] Initial Outreach [facility] [address] [address] Silvia Mcdaniels, DONA 09/20/2025 SHOP/CHAP Initial Eligibility Review [facility] [address] [phone] Silvia Mcdaniels, DONA 09/03/2025 1:43 PM CDT - 09/19/2025 2:28 PM CDT Hospital Encounter [facility] [address] Nanette Ferris MD Kollef, Marin H., MD Schroeder, MD Rios Layne, MD Mary Jane Lu, MD Som Hackett Edward, MD PhD Somnolence (Primary Dx); Hypercarbia; Acute on chronic respiratory failure with hypoxia and hypercapnia (HCC); Acute respiratory failure with hypoxia and hypercapnia (HCC); Lymphedema of both lower extremities Discharge Disposition: Discharge to home, home health skilled care 08/24/2025 Documentation [facility] Medicine Cardiothoracic Surgery Critical access hospital1 [facility] 8th Floor [id number] [place] [phone] Yokasta Pretty NP 08/03/2025 11:05 AM CDT Ancillary Procedure [facility] Medicine Vascular Lab IP [address] [facility] [address] [place] [address] 08/01/2025 8:00 AM CDT - 08/01/2025 2:40 PM CDT Surgery [facility] Operating Room [address] [place] [address] Washington Zaman MD REPLACEMENT ANEURYSM ASCENDING AORTIC HEMIARCH-28MM GELWEAVE GRAFT 08/01/2025 7:40 AM CDT Anesthesia Event [facility] Operating Room [address] [place] [address] Juju Valenzuela MD Montgomery, Andrea J., NP 08/01/2025 12:35 AM CDT Ancillary Procedure [facility] Operating Room [address] [place] [address] 07/31/2025 11:30 AM CDT - 07/31/2025 11:59 PM CDT Hospital Encounter [facility] Medicine Pulmonary 1 [place] [address] Discharge Disposition: Discharge to home or self care 07/30/2025 2:10 PM CDT Ancillary Procedure [facility] Vascular Lab IP [address] [facility] [address] [place] [address] 07/30/2025 11:47 AM CDT - 08/14/2025 12:43 PM CDT Hospital Encounter [facility] 1 [place] [address] Washington Zaman MD Cellulitis of left knee (Primary Dx); Aneurysm of ascending aorta without rupture; Abdominal aortic aneurysm (AAA) without rupture, unspecified part; Rheumatic aortic valve insufficiency; S/P Maze operation for atrial fibrillation; S/P AVR (aortic valve replacement) Discharge Disposition: Discharge to [facility] 07/30/2025 10:20 AM CDT - 07/30/2025 11:59 PM CDT Hospital Encounter [facility] [address] [place] [phone] Pre-operative exam Discharge Disposition: Discharge to home or self care 07/30/2025 8:30 AM CDT Pre-Admission Testing [facility] Center for Preoperative Assessment and Planning [facility] ([facility]) [address] [place] [phone] Pre-operative exam (Primary Dx); Preoperative testing 07/19/2025 9:00 AM CDT Telemedicine [facility] Cardiothoracic Surgery [address] [place] [address] Advanced Medicine 8th Floor [address] Room [address] [address] Washington Zaman MD Aneurysm of the ascending aorta, without rupture (Primary Dx) 07/12/2025 Telephone [facility] Cardiothoracic Surgery [address] [place] [address] 8th Floor [address] Room [address] [phone] Washington Zaman MD from Last 3 Months Immunizations Immunization Administration Dates Next Due Influenza, Quadrivalent, Hig h Dose, Preservative Free, Intrr 09/11/2020 Influenza, Quadrivalent, Spl it, Preservative Free, Intramuscular 08/22/2018 Influenza, Trivalent, Adjuvanted, Intramuscular 08/19/2019 Influenza, Trivalent, High D ose, Split, Preservative Free, Intramuscular 09/10/2025,09/02/2018 Moderna SARS-CoV-2 Monovalent Vaccination (12+ Y RS) 02/10/2021,12/19/2020 Pneumococcal Conjugate PCV 13 09/11/2020 Surgical History Surgery Date Site/Laterality Comments EXPLORATORY LAPAROTOMY 12/23/2024 - 01/19/2025 SBO w/ abdominal adhesiolysis TONSILLECTOMY CHOLECYSTECTOMY INCISION AND DRAINAGE ABSCESS / HEMATOMA OF BURSA / KNEE / THIGH 05/22/2025 - 06/21/2025 CARDIAC CATHETERIZATION 06/27/2025 Chest/N/A Procedure: LEFT HEART CATHETERIZATION WITH CORONARY ANGIOGRAPHY AND WITH OR WITHOUT LEFT VENTRICULOGRAM [id number]; Surgeon: Halina Gonzalez MD; Location: [facility] CARDIAC [employer]; Service: Cardiovascular; Laterality: N/A; Medical devices from this surgery are in the Medical Devices section. AORTIC VALVE REPLACEMENT 08/01/2025 Chest/N/A Procedure: REPLACEMENT AORTIC VALVE- 29 mm AORTIC MAGNA EASE; Surgeon: Washington Zaman MD; Location: [facility] OR POD 3; Service: Cardiothoracic; Laterality: N/A; Medical devices from this surgery are in the Medical Devices section. Medical History Medical History Date Comments Hypertension Diabetes CKD (chronic kidney disease) BPH (benign prostatic hyperplasia) A-fib (HCC) Hypothyroidism Sleep apnea Postoperative delirium confusion lasting several days following exp lap in 01/2025 Heart murmur Hyperlipidemia Acute respiratory failure 08/13/2025 Aneurysm of ascending aorta without rupture 06/11/2025 Aortic regurgitation 07/30/2025 Atrial fibrillation (HCC) 07/30/2025 Cellulitis of left knee 07/30/2025 History of DVT (deep vein thrombosis) 07/30/2025 History of small bowel obstruction 07/30/2025 Renal insufficiency 08/12/2025 Abdominal aortic aneurysm (AAA) 07/31/2025 Adynamic ileus 08/13/2025 Allergic rhinitis 08/13/2025 Aneurysm of the ascending ao rta, without rupture 06/06/2025 Delirium 08/13/2025 Enlarged prostate without lo wer urinary tract symptoms (luts) 08/13/2025 Hypertensive chronic kidney disease with stage 1 through stage 4 chronic kidney disease, or unspecified chronic kidney disease 08/13/2025 Knee effusion, left 08/13/2025 Lower GI bleed 08/13/2025 Lumbago 08/13/2025 Lymphedema of both lower extremities 08/07/2021 Metabolic syndrome 08/13/2025 Morbid obesity with body mas s index (BMI) of 40.0 or higher ([facility]) 08/13/2025 Osteoarthritis of both knees 04/07/2023 Patellar bursitis of left knee 08/13/2025 Positive for microalbuminuria 08/13/2025 Proteinuria 08/13/2025 Spondylosis of lumbar joint 08/13/2025 Tinea cruris 08/13/2025 Ulcers of both great toes (HCC) 08/13/2025 Family History Medical History Relation Name Comments Sleep apnea Brother Hypertension Father Stroke Father Hypertension Mother Stroke Mother Anesthesia problems Neg Hx Relation Name Status Comments Brother Father Mother Social History Tobacco Use Types Packs/Day Years Used Date Smoking Tobacco: Never Smokeless Tobacco: Never Alcohol Use Standard Drinks/Week Comments Yes 0 (1 standard drink = 0.6 oz pur e alcohol) PHQ-2 Answer Date Recorded PHQ-2 Total Score 0 09/05/2025 Social Connection and Isolation Panel Answer Date Recorded In a typical week, how many times do you talk on the phone with family, friends, or neighbors? More than three times a week 09/05/2025 How often do you get togethe r with friends or relatives? More than three times a week 09/05/2025 How often do you attend chur or voodoo services? 1 to 4 times per year 09/05/2025 Do you belong to any clubs o r organizations such as restoration groups, unions, fraternal or athletic groups, or school groups? No 09/05/2025 How often do you attend meet ings of the clubs or organizations you belong to? Never 09/05/2025 Are you , , di vorced, , never , or living with a partner? 09/05/2025 AUDIT-C Answer Date Recorded Q1: How often do you have a drink containing alc ohol? Monthly or less 08/01/2025 Q2: How many drinks containi ng alcohol do you have on a typical day when you are drinking? 1 or 2 08/01/2025 Q3: How often do you have si x or more drinks on one occasion? Never 08/01/2025 Overall Financial Resource Strain (CARDIA) Answe r Date Recorded How hard is it for you to pa y for the very basics like food, housing, medical care, and heating? Not hard at all 09/05/2025 Hunger Vital Sign Answer Date Recorded Within the past 12 months, y ou worried that your food would run out before you got the money to buy more. Never true 09/05/20 25 Within the past 12 months, t he food you bought just didn't last and you didn't have money to get more. Never true 09/05/2025 PRAPARE - Transportation Answer Date Re corded In the past 12 months, has l ack of transportation kept you from medical appointments or from getting medications? No 08/22 In the past 12 months, has l ack of transportation kept you from meetings, work, or from getting things needed for daily living? No 09/05/2025 Housing Stability Vital Sign Answer Kenneth e Recorded In the last 12 months, was t here a time when you were not able to pay the mortgage or rent on time? No 09/05/2025 In the past 12 months, how m any times have you moved where you were living? 0 09/05/2025 At any time in the past 12 m [facility], were you homeless or living in a intermediate (including now)? No 09/05/2025 [facility] Utilities Answer Date Recorded In the past 12 months has th e electric, gas, oil, or water company threatened to shut off services in your home? No 09/05/2025 Personal Safety Answer Date Recorded Have you ever been in or are you currently in a harmful physical or emotional relationship or is someone making you feel afraid or unsafe? 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 Gender Identity Not on file Sexual Orientation Not on file Last Filed Vital Signs Vital Sign Reading Time Taken Comments Blood Pressure 126/65 09/19/2025 7:37 AM CDT Pulse 54 09/19/2025 7:37 AM CDT Temperature 36.5 C (97.7 F) 09/19/2025 7:37 AM CDT Respiratory Rate 16 09/19/2025 7:37 AM CDT Oxygen Saturation 96% 09/19/2025 7:37 AM CDT Inhaled Oxygen Concentration - - Weight 127.7 kg (281 lb 9.6 oz) 09/19/2025 6:30 AM CDT Height 167.6 cm (5' 6) 09/03/2025 9:39 PM CDT Body Mass Index 45.45 09/03/2025 9:39 PM CDT Plan of Treatment Health Maintenance Due Date Last Done Comments Albumin Creatinine Ratio, Urine 1944 Dilated Eye Exam 1944 Foot Exam 1944 Hepatitis B Screening 1962 Zoster Vaccine (1 of 2) 1994 Well Visit 65+ 2009 DTaP/Tdap/Td Vaccine (2 - Td or Tdap) 11/05/2016 11/05/2006, 08/22/1995 Covid-19 Vaccine (4 - 2024-2 6 season) 2025 10/27/2021, 02/10/2021, 12/19/2020 Hemoglobin A1C 01/27/2026 07/30/2025 Lipid Panel 07/30/2026 07/30/2025 Depression Screening 09/03/2026 09/03/2025 eGFR 09/15/2026 09/15/2025, 08/23, 09/11/2025, Additional history exists Fall Risk Assessment 09/19/2026 09/19/2025 Pneumococcal vaccine 65+ Completed 022, 09/11/2020, 12/13/2014, Additional history exists Influenza Vaccine Completed 09/10/2025, , 08/04/2022, Additional history exists Medical Devices Implanted Type Area Sugar Cane Planter Machine Operator Device Identifier Shelf Expiration Date Model / Serial / Lot [employer]rik Medical Cass Angio-Seal Vip 6fr Closere Device [id number] - [id number] - [id number] Implanted:Qty: 1 on 06/27/2025 by Halina Gonzalez MD at [facility] Vascular Closure Device Right: Femoral Ter[employer]o Medical Cass 02/01/2026 [id number] / [id number] / [id number] [employer] Screw Bone Slf Drl Full Thread Locking 3.5x20mm Ti 100.035.20 - [id number] Implanted:Qty: 7 on 08/01/2025 by Washington Zaman MD at [facility] N/A: Sternum [employer] 100.035. 20 / / Terumo Cardio Vascular Graft Vascular 28x8mm 20cm Gelweave Wvn Ante-Kolby Strl 121341/8e - [id number] - [id number] Implanted:Qty: 1 on 08/01/2025 by Washington Zaman MD at [facility] N/A: Aorta Terumo Cardio Vascular [id number] 12/22/2027 375872/8 E / [id number] / Atricure Device Left Atrial Appendage Malleable Shaft 180 Degree Rotation White Atriclip Flex V 45mm Flexv45 - [id number] Implanted:Qty: 1 on 08/01/2025 by Washington Zaman MD at [facility] N/A: Heart Atricure 02/21/2028 [id number] / / [id number] [employer] Valve Coronary Aortic Tissue Bioprosthesis Perimount 29mm 5662ney25el - [id number] - [id number] Implanted:Qty: 1 on 08/01/2025 by Washington Zaman MD at [facility] N/A: Aorta [employer] [id number] 11/02/2028 [id number] 9MM / [id number] / [employer] Device Closure Fibertape Sternal Cerclage Blunt Needle Ar-7289 - [id number] Implanted:Qty: 3 on 08/01/2025 by Washington Zaman MD at [facility] N/A: Sternum [employer] [id number] 05/21/2030 AR-7289 / / [id number] Bard Peripheral Vascular 6x6in Patch Thk1.65mm Sandy Cardiovascular Ptfe Sterile Latex Free [id number] - [id number] Implanted:Qty: 1 on 08/01/2025 by Washington Zaman MD at [facility] N/A: Aorta Bard Peripheral Vascular [id number] / / [employer] Plate Bone Low Profile 6 Hole H Shape Sternum Ti 115.102.06 - [id number] Implanted:Qty: 2 on 08/01/2025 by Washington Zaman MD at [facility] N/A: Sternum [employer] 115.102. 06 / / [employer] Plate Bone Low Profile 6 Hole O Shape Sternum Ti 115.104.06 - [id number] Implanted:Qty: 1 on 08/01/2025 by Washington Zaman MD at [facility] N/A: Sternum [employer] 115.104. 06 / / [employer] Screw Bone Slf Drl Full Thread Locking 3.5x18mm Ti 100.035.18 - [id number] Implanted:Qty: 11 on 08/01/2025 by Washington Zaman MD at [facility] N/A: Sternum [employer] 100.035. 18 / / Procedures Procedure Name Priority Date/Time Associated Diagnosis Comments POCT GLUCOSE DEVICE Routine 09/19/2025 1 1:43 AM CDT POCT GLUCOSE DEVICE Routine 09/19/2025 7 :34 AM CDT POCT GLUCOSE DEVICE Routine 09/18/2025 4 :45 PM CDT POCT GLUCOSE DEVICE Routine 09/18/2025 1 1:40 AM CDT POCT GLUCOSE DEVICE Routine 09/18/2025 8 :36 AM CDT POCT GLUCOSE DEVICE Routine 09/17/2025 8 :29 PM CDT POCT GLUCOSE DEVICE Routine 09/17/2025 4 :13 PM CDT POCT GLUCOSE DEVICE Routine 09/17/2025 1 1:27 AM CDT POCT GLUCOSE DEVICE Routine 09/17/2025 7 :34 AM CDT POCT GLUCOSE DEVICE Routine 09/16/2025 8 :37 PM CDT POCT GLUCOSE DEVICE Routine 09/16/2025 4 :17 PM CDT POCT GLUCOSE DEVICE Routine 09/16/2025 1 1:39 AM CDT POCT GLUCOSE DEVICE Routine 09/16/2025 7 :55 AM CDT EGFR Routine 09/15/2025 10:09 PM CDT MAGNESIUM Routine 09/15/2025 10:09 PM CDT BASIC METABOLIC PANEL Routine 09/15/2025 10:09 PM CDT CBC WITHOUT DIFFERENTIAL Routine 09/15/2025 10:09 PM CDT POCT GLUCOSE DEVICE Routine 09/15/2025 8 :09 PM CDT POCT GLUCOSE DEVICE Routine 09/15/2025 4 :33 PM CDT POCT GLUCOSE DEVICE Routine 09/15/2025 4 :18 PM CDT POCT GLUCOSE DEVICE Routine 09/15/2025 1 1:13 AM CDT POCT GLUCOSE DEVICE Routine 09/15/2025 8 :39 AM CDT POCT GLUCOSE DEVICE Routine 09/15/2025 6 :15 AM CDT POCT GLUCOSE DEVICE Routine 09/14/2025 8 :00 PM CDT POCT GLUCOSE DEVICE Routine 09/14/2025 4 :37 PM CDT POCT GLUCOSE DEVICE Routine 09/14/2025 1 1:37 AM CDT POCT GLUCOSE DEVICE Routine 09/14/2025 6 :32 AM CDT EGFR Routine 09/13/2025 11:54 PM CDT BASIC METABOLIC PANEL Routine 09/13/2025 11:54 PM CDT POCT GLUCOSE DEVICE Routine 09/13/2025 8 :04 PM CDT POCT GLUCOSE DEVICE Routine 09/13/2025 4 :33 PM CDT POCT GLUCOSE DEVICE Routine 09/13/2025 1 1:35 AM CDT POCT GLUCOSE DEVICE Routine 09/13/2025 8 :00 AM CDT POCT GLUCOSE DEVICE Routine 09/13/2025 6 :29 AM CDT POCT GLUCOSE DEVICE Routine 09/12/2025 8 :07 PM CDT POCT GLUCOSE DEVICE Routine 09/12/2025 4 :16 PM CDT POCT GLUCOSE DEVICE Routine 09/12/2025 1 1:03 AM CDT POCT GLUCOSE DEVICE Routine 09/12/2025 8 :08 AM CDT POCT GLUCOSE DEVICE Routine 09/12/2025 6 :23 AM CDT EGFR Routine 09/11/2025 10:52 PM CDT DIFFERENTIAL AUTO Routine 09/11/2025 10: 52 PM CDT CBC WITH AUTO DIFFERENTIAL Routine 09/11/2025 10:52 PM CDT BASIC METABOLIC PANEL Routine 09/11/2025 10:52 PM CDT POCT GLUCOSE DEVICE Routine 09/11/2025 8 :33 PM CDT POCT GLUCOSE DEVICE Routine 09/11/2025 5 :37 PM CDT POCT GLUCOSE DEVICE Routine 09/11/2025 5 :04 PM CDT POCT GLUCOSE DEVICE Routine 09/11/2025 1 2:28 PM CDT POCT GLUCOSE DEVICE Routine 09/11/2025 8 :06 AM CDT POCT GLUCOSE DEVICE Routine 09/11/2025 6 :18 AM CDT POCT GLUCOSE DEVICE Routine 09/10/2025 9 :11 PM CDT EGFR Routine 09/10/2025 9:01 PM CDT DIFFERENTIAL AUTO Routine 09/10/2025 9:0 1 PM CDT CBC WITH AUTO DIFFERENTIAL Routine 09/10/2025 9:01 PM CDT BASIC METABOLIC PANEL Routine 09/10/2025 9:01 PM CDT POCT GLUCOSE DEVICE Routine 09/10/2025 4 :18 PM CDT POCT GLUCOSE DEVICE Routine 09/10/2025 1 :05 PM CDT POCT GLUCOSE DEVICE Routine 09/10/2025 1 1:38 AM CDT POCT GLUCOSE DEVICE Routine 09/10/2025 7 :51 AM CDT BLOOD GAS, VENOUS Routine 09/10/2025 5:5 6 AM CDT POCT GLUCOSE DEVICE Routine 09/09/2025 9 :00 PM CDT EGFR Routine 09/09/2025 8:46 PM CDT DIFFERENTIAL AUTO Routine 09/09/2025 8:4 6 PM CDT CBC WITH AUTO DIFFERENTIAL Routine 09/09/2025 8:46 PM CDT BASIC METABOLIC PANEL Routine 09/09/2025 8:46 PM CDT POCT GLUCOSE DEVICE Routine 09/09/2025 4 :30 PM CDT POCT GLUCOSE DEVICE Routine 09/09/2025 1 :25 PM CDT POCT GLUCOSE DEVICE Routine 09/09/2025 1 1:46 AM CDT POCT GLUCOSE DEVICE Routine 09/09/2025 6 :43 AM CDT EGFR Routine 09/09/2025 3:54 AM CDT DIFFERENTIAL AUTO Routine 09/09/2025 3:5 4 AM CDT HEPATIC FUNCTION PANEL Routine 09/09/2025 3:54 AM CDT PRO B-TYPE NATRIURETIC PEPTIDE Routine 09/09/2025 3:54 AM CDT VITAMIN D 25 HYDROXY Routine 09/09/2025 3:54 AM CDT PHOSPHORUS Routine 09/09/2025 3:54 AM CDT MAGNESIUM Routine 09/09/2025 3:54 AM CDT CBC WITH AUTO DIFFERENTIAL Routine 09/09/2025 3:54 AM CDT BASIC METABOLIC PANEL Routine 09/09/2025 3:54 AM CDT POCT GLUCOSE DEVICE Routine 09/08/2025 9 :19 PM CDT POCT GLUCOSE DEVICE Routine 09/08/2025 4 :25 PM CDT POCT GLUCOSE DEVICE Routine 09/08/2025 1 1:25 AM CDT BLOOD GAS, ARTERIAL STAT 09/08/2025 1 0:46 AM CDT XR CHEST 1 VIEW ED Urgent/IP Urgent 09/08/2025 9:50 AM CDT POCT GLUCOSE DEVICE Routine 09/08/2025 6 :16 AM CDT POCT GLUCOSE DEVICE Routine 09/07/2025 8 :15 PM CDT POCT GLUCOSE DEVICE Routine 09/07/2025 4 :33 PM CDT POCT GLUCOSE DEVICE Routine 09/07/2025 1 1:52 AM CDT POCT GLUCOSE DEVICE Routine 09/07/2025 7 :25 AM CDT POCT GLUCOSE DEVICE Routine 09/06/2025 7 :46 PM CDT POCT GLUCOSE DEVICE Routine 09/06/2025 4 :23 PM CDT BLOOD GAS, ARTERIAL STAT 09/06/2025 2 :21 PM CDT POCT GLUCOSE DEVICE Routine 09/06/2025 2 :15 PM CDT POCT GLUCOSE DEVICE Routine 09/06/2025 1 1:14 AM CDT POCT GLUCOSE DEVICE Routine 09/06/2025 8 :30 AM CDT TRANSTHORACIC ECHO (TTE) COMPLETE W DOPPLER/CF W CONTRAST ED Urgent/IP Urgent 09/06/2025 8:16 AM CDT PRO B-TYPE NATRIURETIC PEPTIDE Routine 09/05/2025 10:44 PM CDT EGFR Routine 09/05/2025 10:44 PM CDT MAGNESIUM Routine 09/05/2025 10:44 PM CDT BASIC METABOLIC PANEL Routine 09/05/2025 10:44 PM CDT CBC WITHOUT DIFFERENTIAL Routine 09/05/2025 10:44 PM CDT POCT GLUCOSE DEVICE Routine 09/05/2025 8 :07 PM CDT POCT GLUCOSE DEVICE Routine 09/05/2025 4 :28 PM CDT POCT GLUCOSE DEVICE Routine 09/05/2025 1 1:56 AM CDT BLOOD GAS, ARTERIAL Timed 09/05/2025 1 1:15 AM CDT POCT GLUCOSE DEVICE Routine 09/05/2025 8 :04 AM CDT EGFR Timed 09/04/2025 9:03 PM CDT CBC WITHOUT DIFFERENTIAL Timed 09/04/2025 9:03 PM CDT COMPREHENSIVE METABOLIC PANEL Timed 09/04/2025 9:03 PM CDT POCT GLUCOSE DEVICE Routine 09/04/2025 8 :49 PM CDT POCT GLUCOSE DEVICE Routine 09/04/2025 6 :21 PM CDT CRITICAL RESULT CALLBACK CHEMISTRY STAT 09/04/2025 1:10 PM CDT BLOOD GAS, VENOUS STAT 09/04/2025 1:1 0 PM CDT POCT GLUCOSE DEVICE Routine 09/04/2025 1 1:08 AM CDT EGFR Timed 09/04/2025 11:07 AM CDT MAGNESIUM Timed 09/04/2025 11:07 AM CDT BASIC METABOLIC PANEL Timed 09/04/2025 11:07 AM CDT PULSE OXIMETRY STUDY Routine 09/04/2025 9:01 AM CDT BLOOD GAS, VENOUS STAT 09/04/2025 8:3 2 AM CDT POCT GLUCOSE DEVICE Routine 09/04/2025 7 :54 AM CDT BLOOD GAS, VENOUS Timed 09/04/2025 5:3 2 AM CDT POCT GLUCOSE DEVICE Routine 09/04/2025 4 :19 AM CDT CRITICAL RESULT CALLBACK CHEMISTRY Timed 09/03/2025 11:27 PM CDT BLOOD GAS, VENOUS Timed 09/03/2025 11: 27 PM CDT POCT GLUCOSE DEVICE Routine 09/03/2025 1 1:20 PM CDT DIFFERENTIAL AUTO STAT 09/03/2025 10: 14 PM CDT BLOOD GAS, VENOUS Timed 09/03/2025 10: 14 PM CDT CBC WITH AUTO DIFFERENTIAL STAT 09/03/2025 10:14 PM CDT PRO B-TYPE NATRIURETIC PEPTIDE STAT 09/03/2025 10:13 PM CDT IRON PROFILE W/ IBC STAT 09/03/2025 1 0:13 PM CDT T4, FREE STAT 09/03/2025 10:13 PM CDT THYROID FUNCTION CASCADE STAT 09/03/2025 10:13 PM CDT FERRITIN STAT 09/03/2025 10:13 PM CDT MAGNESIUM STAT 09/03/2025 10:13 PM CDT PHOSPHORUS STAT 09/03/2025 10:13 PM CDT EGFR STAT 09/03/2025 10:13 PM CDT COMPREHENSIVE METABOLIC PANEL STAT 09/03/2025 10:13 PM CDT TYPE AND SCREEN STAT 09/03/2025 10:13 PM CDT INFECTION PREVENTION MRSA ONLY (STAPHYLOCOCCUS AUREUS) CULTURE Routine 09/03/2025 10:13 PM CDT POC BLOOD GAS AND CHEMISTRIES, VENOUS Routine 09/03/2025 10:12 PM CDT ECG 12-LEAD STAT 09/03/2025 9:39 PM CDT CRITICAL RESULT CALLBACK CHEMISTRY STAT 09/03/2025 6:56 PM CDT BLOOD GAS, VENOUS STAT 09/03/2025 6:5 6 PM CDT TROPONIN I HIGH-SENSITIVITY 2-HOUR Timed 09/03/2025 4:42 PM CDT GA CRITICAL CARE ILL/INJURED PATIENT INIT 30-74 MIN Routine 09/03/2025 4:[address] HEAD WO CONTRAST ED 09/03/2025 4 :30 PM CDT CTA CHEST ABDOMEN PELVIS ED Urgent/IP Urgent 09/03/2025 4:30 PM CDT POCT GLUCOSE DEVICE Routine 09/03/2025 4 :09 PM CDT CRITICAL RESULT CALLBACK CHEMISTRY STAT 09/03/2025 3:15 PM CDT BLOOD GAS, VENOUS STAT 09/03/2025 3:1 5 PM CDT RESPIRATORY PATHOGEN PANEL STAT 09/03/2025 3:15 PM CDT XR CHEST 1 VIEW ED Urgent/IP Urgent 09/03/2025 2:40 PM CDT ECG 12-LEAD STAT 09/03/2025 2:29 PM CDT PRO B-TYPE NATRIURETIC PEPTIDE STAT 09/03/2025 2:12 PM CDT EGFR STAT 09/03/2025 2:12 PM CDT DIFFERENTIAL AUTO STAT 09/03/2025 2:1 2 PM CDT TROPONIN I HIGH-SENSITIVITY SERIES (BASELINE, 2HR, 4HR, 6HR) STAT 09/03/2025 2:12 PM CDT CBC WITH AUTO DIFFERENTIAL STAT 09/03/2025 2:12 PM CDT COMPREHENSIVE METABOLIC PANEL STAT 09/03/2025 2:12 PM CDT POCT GLUCOSE DEVICE Routine 09/03/2025 2 :09 PM CDT POCT GLUCOSE DEVICE Routine 08/14/2025 1 2:08 PM CDT POCT GLUCOSE DEVICE Routine 08/14/2025 8 :19 AM CDT ECG 12-LEAD Routine 08/14/2025 6:31 AM CDT POCT GLUCOSE DEVICE Routine 08/14/2025 2 :02 AM CDT POCT GLUCOSE DEVICE Routine 08/13/2025 8 :16 PM CDT EGFR Routine 08/13/2025 8:06 PM CDT MAGNESIUM Routine 08/13/2025 8:06 PM CDT PHOSPHORUS Routine 08/13/2025 8:06 PM CDT CBC WITHOUT DIFFERENTIAL Routine 08/13/2025 8:06 PM CDT BASIC METABOLIC PANEL Routine 08/13/2025 8:06 PM CDT POCT GLUCOSE DEVICE Routine 08/13/2025 5 :10 PM CDT POCT GLUCOSE DEVICE Routine 08/13/2025 1 2:03 PM CDT POCT GLUCOSE DEVICE Routine 08/13/2025 8 :18 AM CDT EGFR Routine 08/12/2025 9:35 PM CDT MAGNESIUM Routine 08/12/2025 9:35 PM CDT PHOSPHORUS Routine 08/12/2025 9:35 PM CDT CBC WITHOUT DIFFERENTIAL Routine 08/12/2025 9:35 PM CDT BASIC METABOLIC PANEL Routine 08/12/2025 9:35 PM CDT POCT GLUCOSE DEVICE Routine 08/12/2025 8 :11 PM CDT POCT GLUCOSE DEVICE Routine 08/12/2025 4 :40 PM CDT XR CHEST PA LATERAL 2 VIEWS IP Routine 08/12/2025 3:01 PM CDT ECG 12-LEAD Routine 08/12/2025 12:47 PM CDT POCT GLUCOSE DEVICE Routine 08/12/2025 1 1:11 AM CDT POCT GLUCOSE DEVICE Routine 08/12/2025 7 :29 AM CDT EGFR Routine 08/11/2025 9:08 PM CDT MAGNESIUM Routine 08/11/2025 9:08 PM CDT TYPE AND SCREEN Timed 08/11/2025 9:08 PM CDT PHOSPHORUS Routine 08/11/2025 9:08 PM CDT CBC WITHOUT DIFFERENTIAL Routine 08/11/2025 9:08 PM CDT BASIC METABOLIC PANEL Routine 08/11/2025 9:08 PM CDT POCT GLUCOSE DEVICE Routine 08/11/2025 9 :05 PM CDT POCT GLUCOSE DEVICE Routine 08/11/2025 8 :38 PM CDT POCT GLUCOSE DEVICE Routine 08/11/2025 5 :18 PM CDT POCT GLUCOSE DEVICE Routine 08/11/2025 1 1:48 AM CDT POCT GLUCOSE DEVICE Routine 08/11/2025 7 :42 AM CDT EGFR Routine 08/10/2025 9:13 PM CDT PHOSPHORUS Routine 08/10/2025 9:13 PM CDT CBC WITHOUT DIFFERENTIAL Routine 08/10/2025 9:13 PM CDT BASIC METABOLIC PANEL Routine 08/10/2025 9:13 PM CDT POCT GLUCOSE DEVICE Routine 08/10/2025 7 :38 PM CDT POCT GLUCOSE DEVICE Routine 08/10/2025 5 :17 PM CDT POCT GLUCOSE DEVICE Routine 08/10/2025 1 1:11 AM CDT POCT GLUCOSE DEVICE Routine 08/10/2025 7 :56 AM CDT EGFR Routine 08/09/2025 9:56 PM CDT PHOSPHORUS Routine 08/09/2025 9:56 PM CDT CBC WITHOUT DIFFERENTIAL Routine 08/09/2025 9:56 PM CDT BASIC METABOLIC PANEL Routine 08/09/2025 9:56 PM CDT POCT GLUCOSE DEVICE Routine 08/09/2025 9 :34 PM CDT POCT GLUCOSE DEVICE Routine 08/09/2025 7 :49 PM CDT POCT GLUCOSE DEVICE Routine 08/09/2025 5 :18 PM CDT POCT GLUCOSE DEVICE Routine 08/09/2025 1 1:29 AM CDT POCT GLUCOSE DEVICE Routine 08/09/2025 7 :12 AM CDT POCT GLUCOSE DEVICE Routine 08/08/2025 7 :59 PM CDT EGFR Routine 08/08/2025 6:41 PM CDT APTT STAT 08/08/2025 6:41 PM CDT MAGNESIUM Routine 08/08/2025 6:41 PM CDT PHOSPHORUS Routine 08/08/2025 6:41 PM CDT CBC WITHOUT DIFFERENTIAL Routine 08/08/2025 6:41 PM CDT BASIC METABOLIC PANEL Routine 08/08/2025 6:41 PM CDT POCT GLUCOSE DEVICE Routine 08/08/2025 4 :50 PM CDT XR CHEST PA LATERAL 2 VIEWS Timed 08/08/2025 4:06 PM CDT APTT STAT 08/08/2025 3:19 PM CDT POCT GLUCOSE DEVICE Routine 08/08/2025 1 1:54 AM CDT POCT GLUCOSE DEVICE Routine 08/08/2025 1 1:09 AM CDT APTT STAT 08/08/2025 11:07 AM CDT POCT GLUCOSE DEVICE Routine 08/08/2025 7 :30 AM CDT EGFR Routine 08/08/2025 12:08 AM CDT PHOSPHORUS Routine 08/08/2025 12:08 AM CDT MAGNESIUM Routine 08/08/2025 12:08 AM CDT CBC WITHOUT DIFFERENTIAL Routine 08/08/2025 12:08 AM CDT BASIC METABOLIC PANEL Routine 08/08/2025 12:08 AM CDT TYPE AND SCREEN Timed 08/08/2025 12:08 AM CDT POCT GLUCOSE DEVICE Routine 08/07/2025 7 :40 PM CDT CRITICAL CARE Routine 08/07/2025 5:54 PM CDT Cellulitis of left knee POCT GLUCOSE DEVICE Routine 08/07/2025 5 :42 PM CDT APTT STAT 08/07/2025 2:10 PM CDT POCT GLUCOSE DEVICE Routine 08/07/2025 1 1:49 AM CDT POTASSIUM, WHOLE BLOOD STAT 08/07/2025 11:49 AM CDT APTT STAT 08/07/2025 11:49 AM CDT APTT STAT 08/07/2025 7:57 AM CDT POCT GLUCOSE DEVICE Routine 08/07/2025 7 :56 AM CDT CRITICAL CARE Routine 08/07/2025 7:23 AM CDT Cellulitis of left knee APTT STAT 08/07/2025 5:50 AM CDT APTT STAT 08/07/2025 3:05 AM CDT EGFR Routine 08/07/2025 12:01 AM CDT CALCIUM, IONIZED Routine 08/07/2025 12:0 1 AM CDT PHOSPHORUS Routine 08/07/2025 12:01 AM CDT MAGNESIUM Routine 08/07/2025 12:01 AM CDT CBC WITHOUT DIFFERENTIAL Routine 08/07/2025 12:01 AM CDT BASIC METABOLIC PANEL Routine 08/07/2025 12:01 AM CDT APTT STAT 08/06/2025 11:51 PM CDT POCT GLUCOSE DEVICE Routine 08/06/2025 8 :17 PM CDT POTASSIUM, WHOLE BLOOD Routine 08/06/2025 6:51 PM CDT POCT GLUCOSE DEVICE Routine 08/06/2025 6 :01 PM CDT CRITICAL CARE Routine 08/06/2025 5:54 PM CDT Cellulitis of left knee POCT GLUCOSE DEVICE Routine 08/06/2025 4 :47 PM CDT POCT GLUCOSE DEVICE Routine 08/06/2025 1 2:16 PM CDT POCT GLUCOSE DEVICE Routine 08/06/2025 8 :15 AM CDT CRITICAL CARE Routine 08/06/2025 6:46 AM CDT Cellulitis of left knee EGFR Routine 08/06/2025 12:04 AM CDT CALCIUM, IONIZED Routine 08/06/2025 12:0 4 AM CDT PHOSPHORUS Routine 08/06/2025 12:04 AM CDT MAGNESIUM Routine 08/06/2025 12:04 AM CDT CBC WITHOUT DIFFERENTIAL Routine 08/06/2025 12:04 AM CDT BASIC METABOLIC PANEL Routine 08/06/2025 12:04 AM CDT APTT STAT 08/05/2025 10:02 PM CDT POCT GLUCOSE DEVICE Routine 08/05/2025 8 :30 PM CDT POTASSIUM, WHOLE BLOOD STAT 08/05/2025 8:30 PM CDT APTT STAT 08/05/2025 8:30 PM CDT XR CHEST 1 VIEW IP Routine 08/05/2025 7:01 PM CDT OXYHEMOGLOBIN, CENTRAL VENOUS Routine 08/05/2025 5:40 PM CDT APTT STAT 08/05/2025 5:40 PM CDT POTASSIUM, WHOLE BLOOD Routine 08/05/2025 5:40 PM CDT POCT GLUCOSE DEVICE Routine 08/05/2025 5 :28 PM CDT APTT STAT 08/05/2025 4:07 PM CDT APTT STAT 08/05/2025 2:01 PM CDT POCT GLUCOSE DEVICE Routine 08/05/2025 1 1:03 AM CDT POCT GLUCOSE DEVICE Routine 08/05/2025 1 1:01 AM CDT APTT STAT 08/05/2025 10:59 AM CDT APTT STAT 08/05/2025 8:53 AM CDT POCT GLUCOSE DEVICE Routine 08/05/2025 7 :36 AM CDT CRITICAL CARE Routine 08/05/2025 7:01 AM CDT Cellulitis of left knee APTT STAT 08/05/2025 12:17 AM CDT EGFR Routine 08/04/2025 11:50 PM CDT CALCIUM, IONIZED Routine 08/04/2025 11:5 0 PM CDT PHOSPHORUS Routine 08/04/2025 11:50 PM CDT MAGNESIUM Routine 08/04/2025 11:50 PM CDT CBC WITHOUT DIFFERENTIAL Routine 08/04/2025 11:50 PM CDT BASIC METABOLIC PANEL Routine 08/04/2025 11:50 PM CDT TYPE AND SCREEN Timed 08/04/2025 11:50 PM CDT XR CHEST 1 VIEW IP Routine 08/04/2025 8:46 PM CDT POTASSIUM, WHOLE BLOOD STAT 08/04/2025 8:17 PM CDT POCT GLUCOSE DEVICE Routine 08/04/2025 8 :12 PM CDT POTASSIUM, WHOLE BLOOD STAT 08/04/2025 4:57 PM CDT POCT GLUCOSE DEVICE Routine 08/04/2025 3 :59 PM CDT POCT GLUCOSE DEVICE Routine 08/04/2025 1 0:49 AM CDT POCT GLUCOSE DEVICE Routine 08/04/2025 8 :23 AM CDT CRITICAL CARE Routine 08/04/2025 7:18 AM CDT Cellulitis of left knee XR ABDOMEN AP 1 VIEW ED Urgent/IP Urgent 08/04/2025 3:49 AM CDT EGFR Routine 08/03/2025 11:48 PM CDT CALCIUM, IONIZED Routine 08/03/2025 11:4 8 PM CDT PHOSPHORUS Routine 08/03/2025 11:48 PM CDT MAGNESIUM Routine 08/03/2025 11:48 PM CDT CBC WITHOUT DIFFERENTIAL Routine 08/03/2025 11:48 PM CDT BASIC METABOLIC PANEL Routine 08/03/2025 11:48 PM CDT APTT STAT 08/03/2025 9:30 PM CDT POCT GLUCOSE DEVICE Routine 08/03/2025 7 :51 PM CDT APTT STAT 08/03/2025 7:05 PM CDT XR CHEST 1 VIEW IP Routine 08/03/2025 6:42 PM CDT XR ABDOMEN AP 1 VIEW IP Routine 08/03/2025 6:41 PM CDT POTASSIUM, WHOLE BLOOD STAT 08/03/2025 4:16 PM CDT APTT STAT 08/03/2025 4:16 PM CDT CBC WITHOUT DIFFERENTIAL STAT 08/03/2025 4:16 PM CDT PROTIME-INR STAT 08/03/2025 4:16 PM CDT POCT GLUCOSE DEVICE Routine 08/03/2025 4 :15 PM CDT POCT GLUCOSE DEVICE Routine 08/03/2025 1 :04 PM CDT US VEIN DUPLEX LOWER EXTREMITY BILATERAL COMPLETE IP Routine 08/03/2025 12:27 PM CDT XR ABDOMEN AP 1 VIEW ED Urgent/IP Urgent 08/03/2025 12:09 PM CDT BLOOD GAS, VENOUS Routine 08/03/2025 10: 24 AM CDT LACTATE, WHOLE BLOOD Routine 08/03/2025 10:24 AM CDT POCT GLUCOSE DEVICE Routine 08/03/2025 9 :22 AM CDT XR ABDOMEN AP 1 VIEW ED Urgent/IP Urgent 08/03/2025 8:50 AM CDT POCT GLUCOSE DEVICE Routine 08/03/2025 7 :54 AM CDT CRITICAL CARE Routine 08/03/2025 7:04 AM CDT Cellulitis of left knee EGFR Routine 08/02/2025 11:51 PM CDT CALCIUM, IONIZED Routine 08/02/2025 11:5 1 PM CDT PHOSPHORUS Routine 08/02/2025 11:51 PM CDT MAGNESIUM Routine 08/02/2025 11:51 PM CDT CBC WITHOUT DIFFERENTIAL Routine 08/02/2025 11:51 PM CDT BASIC METABOLIC PANEL Routine 08/02/2025 11:51 PM CDT CRITICAL CARE Routine 08/02/2025 9:36 PM CDT Cellulitis of left knee POCT GLUCOSE DEVICE Routine 08/02/2025 8 :47 PM CDT XR CHEST 1 VIEW IP Routine 08/02/2025 7:49 PM CDT POTASSIUM, WHOLE BLOOD Timed 08/02/2025 4:35 PM CDT POCT GLUCOSE DEVICE Routine 08/02/2025 4 :34 PM CDT POCT GLUCOSE DEVICE Routine 08/02/2025 1 2:02 PM CDT BLOOD GAS, ARTERIAL STAT 08/02/2025 1 2:01 PM CDT POTASSIUM, WHOLE BLOOD Timed 08/02/2025 12:01 PM CDT EGFR Routine 08/02/2025 8:13 AM CDT POTASSIUM, WHOLE BLOOD Routine 08/02/2025 8:13 AM CDT CBC WITHOUT DIFFERENTIAL Routine 08/02/2025 8:13 AM CDT LACTATE, WHOLE BLOOD STAT 08/02/2025 8:13 AM CDT COMPREHENSIVE METABOLIC PANEL Routine 08/02/2025 8:13 AM CDT POCT GLUCOSE DEVICE Routine 08/02/2025 8 :11 AM CDT POCT GLUCOSE DEVICE Routine 08/02/2025 6 :16 AM CDT CRITICAL CARE Routine 08/02/2025 5:52 AM CDT Cellulitis of left knee POTASSIUM, WHOLE BLOOD Timed 08/02/2025 4:32 AM CDT POCT GLUCOSE DEVICE Routine 08/02/2025 4 :16 AM CDT EXTUBATION Routine 08/02/2025 4:07 AM CDT POCT GLUCOSE DEVICE Routine 08/02/2025 2 :08 AM CDT EGFR Routine 08/01/2025 11:52 PM CDT HEPATIC FUNCTION PANEL Routine 08/01/2025 11:52 PM CDT CALCIUM, IONIZED Routine 08/01/2025 11:5 2 PM CDT PHOSPHORUS Routine 08/01/2025 11:52 PM CDT MAGNESIUM Routine 08/01/2025 11:52 PM CDT CBC WITHOUT DIFFERENTIAL Routine 08/01/2025 11:52 PM CDT BASIC METABOLIC PANEL Routine 08/01/2025 11:52 PM CDT BLOOD GAS, ARTERIAL STAT 08/01/2025 1 1:52 PM CDT POTASSIUM, WHOLE BLOOD STAT 08/01/2025 11:52 PM CDT OXYHEMOGLOBIN, PULMONARY ARTERY STAT 08/01/2025 11:52 PM CDT POCT GLUCOSE DEVICE Routine 08/01/2025 1 1:51 PM CDT CRITICAL CARE Routine 08/01/2025 10:37 PM CDT Aneurysm of ascending aorta without rupture POCT GLUCOSE DEVICE Routine 08/01/2025 9 :59 PM CDT CALCIUM,IONIZED, WHOLE BLOOD STAT 08/01/2025 9:58 PM CDT BLOOD GAS, ARTERIAL STAT 08/01/2025 9 :56 PM CDT POTASSIUM, WHOLE BLOOD Routine 08/01/2025 9:56 PM CDT TRIGLYCERIDES Routine 08/01/2025 8:41 PM CDT EGFR Routine 08/01/2025 8:41 PM CDT PHOSPHORUS Routine 08/01/2025 8:41 PM CDT MAGNESIUM Routine 08/01/2025 8:41 PM CDT BASIC METABOLIC PANEL Routine 08/01/2025 8:41 PM CDT CBC WITHOUT DIFFERENTIAL Routine 08/01/2025 8:41 PM CDT POC BLOOD GAS AND CHEMISTRIES, ARTERIAL Routine 08/01/2025 8:14 PM CDT POCT GLUCOSE DEVICE Routine 08/01/2025 8 :06 PM CDT POTASSIUM, WHOLE BLOOD STAT 08/01/2025 7:03 PM CDT POCT GLUCOSE DEVICE Routine 08/01/2025 6 :58 PM CDT POCT GLUCOSE DEVICE Routine 08/01/2025 5 :59 PM CDT POC BLOOD GAS AND CHEMISTRIES, ARTERIAL Routine 08/01/2025 5:04 PM CDT XR CHEST 1 VIEW ED Urgent/IP Urgent 08/01/2025 4:29 PM CDT OXYHEMOGLOBIN, PULMONARY ARTERY STAT 08/01/2025 4:10 PM CDT EGFR STAT 08/01/2025 4:09 PM CDT APTT STAT 08/01/2025 4:09 PM CDT PROTIME-INR STAT 08/01/2025 4:09 PM CDT CBC WITHOUT DIFFERENTIAL STAT 08/01/2025 4:09 PM CDT MAGNESIUM STAT 08/01/2025 4:09 PM CDT BASIC METABOLIC PANEL STAT 08/01/2025 4:09 PM CDT TYPE AND SCREEN Timed 08/01/2025 4:09 PM CDT POC BLOOD GAS AND CHEMISTRIES, ARTERIAL Routine 08/01/2025 3:58 PM CDT CRITICAL CARE Routine 08/01/2025 3:51 PM CDT CV HYBRID ROOM (DEFAULT ORDERABLE) Routine 08/01/2025 3:44 PM CDT Aneurysm of ascending aorta without rupture POCT HEPARIN/ACT CPB Routine 08/01/2025 2:23 PM CDT POCT PARTIAL THROMBOPLASTIN TIME (PTT) Routine 08/01/2025 2:21 PM CDT POCT PROTHROMBIN TIME Routine 08/01/2025 2:21 PM CDT POC BLOOD GAS AND CHEMISTRIES, ARTERIAL Routine 08/01/2025 2:21 PM CDT POCT PLATELET COUNT AND HEMATOCRIT Routine 08/01/2025 2:18 PM CDT POCT HEPARIN/ACT CPB Routine 08/01/2025 1:24 PM CDT POC BLOOD GAS AND CHEMISTRIES, ARTERIAL Routine 08/01/2025 1:18 PM CDT POCT HEPARIN/ACT CPB Routine 08/01/2025 12:57 PM CDT POC BLOOD GAS AND CHEMISTRIES, ARTERIAL Routine 08/01/2025 12:51 PM CDT POCT HEPARIN/ACT CPB Routine 08/01/2025 12:26 PM CDT POC BLOOD GAS AND CHEMISTRIES, ARTERIAL Routine 08/01/2025 12:20 PM CDT POCT HEPARIN/ACT CPB Routine 08/01/2025 11:53 AM CDT POC BLOOD GAS AND CHEMISTRIES, ARTERIAL Routine 08/01/2025 11:47 AM CDT POCT HEPARIN/ACT CPB Routine 08/01/2025 11:15 AM CDT POC BLOOD GAS AND CHEMISTRIES, ARTERIAL Routine 08/01/2025 11:10 AM CDT SURGICAL PATHOLOGY Routine 08/01/2025 11 :04 AM CDT Aneurysm of ascending aorta without rupture POCT HEPARIN/ACT CPB Routine 08/01/2025 10:52 AM CDT POC BLOOD GAS AND CHEMISTRIES, ARTERIAL Routine 08/01/2025 10:52 AM CDT POCT HEPARIN/ACT CPB Routine 08/01/2025 10:23 AM CDT POC BLOOD GAS AND CHEMISTRIES, ARTERIAL Routine 08/01/2025 10:17 AM CDT POCT HEPARIN/ACT CPB Routine 08/01/2025 10:13 AM CDT POCT HEPARIN/ACT CPB Routine 08/01/2025 9:55 AM CDT GA AN PROCEDURE PLACEHOLDER Routine 08/01/2025 9:46 AM CDT GA AN PROCEDURE PLACEHOLDER Routine 08/01/2025 8:56 AM CDT GA AN CENTRAL LINE QUADRUPLE LUMEN Routine 08/01/2025 8:56 AM CDT GA AN PROCEDURE PLACEHOLDER Routine 08/01/2025 8:56 AM CDT ANESTHESIA CENTRAL VENOUS LINE PLACEMENT Routine 08/01/2025 8:56 AM CDT ANESTHESIA CENTRAL VENOUS LINE PLACEMENT Routine 08/01/2025 8:56 AM CDT GA AN PROCEDURE PLACEHOLDER Routine 08/01/2025 8:55 AM CDT POCT HEPARIN DOSE RESPONSE, CPB Routine 08/01/2025 8:25 AM CDT POC BLOOD GAS AND CHEMISTRIES, ARTERIAL Routine 08/01/2025 8:21 AM CDT GA AN PROCEDURE PLACEHOLDER Routine 08/01/2025 8:19 AM CDT GA AN ELECTIVE ENDOTRACHEAL AIRWAY Routine 08/01/2025 8:19 AM CDT CLOSURE STERNAL - WITH PLATES 08/01/2025 7:50 AM CDT Aneurysm of 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 08/01/2025 7:50 AM CDT Aneurysm of ascending aorta without rupture REPLACEMENT AORTIC VALVE. 08/01/2025 7:50 AM CDT Aneurysm of ascending aorta without rupture AMNA ADD-ON FOR OR Routine 08/01/2025 7:0 3 AM CDT EGFR STAT 08/01/2025 5:14 AM CDT BASIC METABOLIC PANEL STAT 08/01/2025 5:14 AM CDT POCT GLUCOSE DEVICE Routine 07/31/2025 8 :20 PM CDT EGFR Routine 07/31/2025 8:18 PM CDT ANTITHROMBIN Routine 07/31/2025 8:18 PM CDT MAGNESIUM Routine 07/31/2025 8:18 PM CDT BASIC METABOLIC PANEL Routine 07/31/2025 8:18 PM CDT CBC WITHOUT DIFFERENTIAL Routine 07/31/2025 8:18 PM CDT APTT STAT 07/31/2025 6:20 PM CDT POCT GLUCOSE DEVICE Routine 07/31/2025 5 :05 PM CDT B CHECK SAMPLE STAT 07/31/2025 4:16 PM CDT PREPARE RBC Timed 07/31/2025 3:25 PM CDT PULMONARY FUNCTION TEST (PFT) STAT 07/31/2025 1:45 PM CDT APTT STAT 07/31/2025 11:42 AM CDT POCT GLUCOSE DEVICE Routine 07/31/2025 1 1:04 AM CDT POCT GLUCOSE DEVICE Routine 07/31/2025 7 :52 AM CDT APTT STAT 07/31/2025 5:53 AM CDT EGFR Routine 07/30/2025 9:53 PM CDT BASIC METABOLIC PANEL Routine 07/30/2025 9:53 PM CDT APTT STAT 07/30/2025 9:53 PM CDT MAGNESIUM Routine 07/30/2025 9:53 PM CDT POCT GLUCOSE DEVICE Routine 07/30/2025 8 :48 PM CDT POCT GLUCOSE DEVICE Routine 07/30/2025 5 :47 PM CDT US CAROTIDS DUPLEX BILATERAL IP Routine 07/30/2025 4:27 PM CDT ECG 12-LEAD Routine 07/30/2025 1:47 PM CDT TSH STAT 07/30/2025 1:44 PM CDT TROPONIN I HIGH-SENSITIVITY STAT 07/30/2025 1:44 PM CDT T4, FREE STAT 07/30/2025 1:44 PM CDT PRO B-TYPE NATRIURETIC PEPTIDE STAT 07/30/2025 1:44 PM CDT PHOSPHORUS STAT 07/30/2025 1:44 PM CDT MAGNESIUM STAT 07/30/2025 1:44 PM CDT LIPID PANEL STAT 07/30/2025 1:44 PM CDT APTT STAT 07/30/2025 1:44 PM CDT PROTIME-INR STAT 07/30/2025 1:44 PM CDT XR CHEST PA LATERAL 2 VIEWS Schedule Routine, Read Routine (OP Routine) 07/30/2025 10:28 AM CDT Pre-operative exam URINALYSIS, MICROSCOPIC ONLY Routine 07/30/2025 10:11 AM CDT Preoperative testing URINALYSIS AND REFLEX TO MICROSCOPIC AND CULTURE Routine 07/30/2025 10:11 AM CDT Preoperative testing EGFR Routine 07/30/2025 10:04 AM CDT Preoperative testing DIFFERENTIAL AUTO Routine 07/30/2025 10: 04 AM CDT Preoperative testing COMPREHENSIVE METABOLIC PANEL Routine 07/30/2025 10:04 AM CDT Preoperative testing CBC WITH AUTO DIFFERENTIAL Routine 07/30/2025 10:04 AM CDT Preoperative testing TYPE AND SCREEN Routine 07/30/2025 10:04 AM CDT Preoperative testing POCT HEMOGLOBIN A1C Routine 07/30/2025 8 :47 AM CDT from Last 3 Months Results * POCT glucose (09/19/2025 11:43 AM CDT) Glucose, POC 130 70 - 199 mg/dL Blood 09/19/2025 11:4 3 AM CDT 09/19/2025 11:43 AM CDT us Harley Kearns MD PhD LAB POCT ORDERABLES - DEVIC E Final Result [facility] Department [place] [address] * POCT glucose (09/19/2025 7:34 AM CDT) Glucose, POC 102 70 - 199 mg/dL Blood 09/19/2025 7:34 AM CDT 09/19/2025 7:34 AM CDT Harley Kearns MD PhD LAB POCT ORDERABLES - DEVIC E Final Result Performing Organization Address [facility] Co de Phone Number [facility] [place] [address] * POCT glucose (09/18/2025 4:45 PM CDT) Glucose, POC 123 70 - 199 mg/dL Blood 09/18/2025 4:45 PM CDT 09/18/2025 4:45 PM CDT Harley Kearns MD PhD LAB POCT ORDERABLES - DEVIC E Final Result Performing Organization Address [facility] de Phone Number [facility] [place] [address] * POCT glucose (09/18/2025 11:40 AM CDT) Glucose, POC 134 70 - 199 mg/dL Blood 09/18/2025 11:4 0 AM CDT 09/18/2025 11:40 AM CDT Harley Kearns MD PhD LAB POCT ORDERABLES - DEVIC E Final Result Performing Organization Address [facility] de Phone Number [facility] Department [place] [address] * POCT glucose (09/18/2025 8:36 AM CDT) Glucose, POC 95 70 - 199 mg/dL Blood 09/18/2025 8:36 AM CDT 09/18/2025 8:36 AM CDT Harley Kearns MD PhD LAB POCT ORDERABLES - DEVIC E Final Result Performing Organization Address City/[facility] Co de Phone Number [facility] [place] [address] * POCT glucose (09/17/2025 8:29 PM CDT) Glucose, POC 146 70 - 199 mg/dL Comment:Glu2: RN/MD Notified Glucose comment 1 Glu2: RN/MD Notified [facility] Blood 09/17/2025 8:29 PM CDT 09/17/2025 8:29 PM CDT Leonardo Hinton MD LAB POCT ORDERABLES - DEVICE Final Result Performing Organization Address [facility] [place] [address] * POCT glucose (09/17/2025 4:13 PM CDT) Glucose, POC 137 70 - 199 mg/dL Blood 09/17/2025 4:13 PM CDT 09/17/2025 4:13 PM CDT Leonardo Hinton MD LAB POCT ORDERABLES - DEVICE Final Result Performing Organization Address City/[facility] Co de Phone Number [facility] of [employer] [place] [address] * POCT glucose (09/17/2025 11:27 AM CDT) Glucose, POC 132 70 - 199 mg/dL Blood 09/17/2025 11:2 7 AM CDT 09/17/2025 11:27 AM CDT us Leonardo Hinton MD LAB POCT ORDERABLES - DEVICE Final Result Performing Organization Address City/[facility]/ZIP Co de Phone Number [facility] [place] [address] * POCT glucose (09/17/2025 7:34 AM CDT) Glucose, POC 118 70 - 199 mg/dL Blood 09/17/2025 7:34 AM CDT 09/17/2025 7:34 AM CDT Leonardo Hinton MD LAB POCT ORDERABLES - DEVICE Final Result Performing Organization Address City/[facility] Co de Phone Number [facility] [place] [address] * POCT glucose (09/16/2025 8:37 PM CDT) Glucose, POC 134 70 - 199 mg/dL Blood 09/16/2025 8:37 PM CDT 09/16/2025 8:37 PM CDT Leonardo Hinton MD LAB POCT ORDERABLES - DEVICE Final Result Performing Organization Address [facility] Co de Phone Number [facility] [place] [address] * POCT glucose (09/16/2025 4:17 PM CDT) Glucose, POC 168 70 - 199 mg/dL Blood 09/16/2025 4:17 PM CDT 09/16/2025 4:17 PM CDT Leonardo Hinton MD LAB POCT ORDERABLES - DEVICE Final Result Performing Organization Address [facility] Co de Phone Number [facility] [place] [address] * POCT glucose (09/16/2025 11:39 AM CDT) Glucose, POC 140 70 - 199 mg/dL Blood 09/16/2025 11:3 9 AM CDT 09/16/2025 11:39 AM CDT Leonardo Hinton MD LAB POCT ORDERABLES - DEVICE Final Result Performing Organization Address City/[facility] Co [facility] [place] [address] * POCT glucose (09/16/2025 7:55 AM CDT) Glucose, POC 99 70 - 199 mg/dL Blood 09/16/2025 7:55 AM CDT 09/16/2025 7:55 AM CDT Leonardo Hinton MD LAB POCT ORDERABLES - DEVICE Final Result Performing Organization Address [facility] de Phone Number [facility] Department [place] [address] * (ABNORMAL) eGFR (09/15/2025 10:09 PM CDT) eGFR 45(L) >=60 mL/min/1. 73 m2 Comment: Interpretive Data Reference Interval Normal >/= 90 mL/min/1.73m2 Mildly decreased* 60 - 89 mL/min/1.73m2 Mildly to moderately decreased 45 - 59 mL/min/1.73m2 Moderately to severely decreased 30 - 44 mL/min/1.73m2 Severely decreased 15 - 29 mL/min/1.73m2 Kidney Failure < 15 mL/min/1.73m2 *Relative to young adult level Estimated glomerular filtration rate is determined by the 2020 CKD-EPI equation recommended by the National Kidney [employer] (A Unifying Approach to GFR Estimation: Recommendations of the NKF-ASK Task Force on Reassessing the Inclusion of Race in Diagnosing Kidney Disease, JASN 2020). The CKD-EPI equation should not be used for patients with unstable renal function and has not been validated in children and those over 70. Current interpretive data was last reviewed 2021. Blood 09/15/2025 10:0 9 PM CDT 09/15/2025 10:50 PM CDT Leonardo Hinton MD LAB BLOOD ORDERABLES Final Result Performing Organization Address [facility] Co de Phone Number [facility] Department [place] [address] * (ABNORMAL) CBC without differential (09/15/2025 10:09 PM CDT) Pathologist [facility] WBC 5.85 3.80 - 9.90 K/cumm Hgb 8.7(L) 13.0 - 17.5 g/dL [facility] Hct 27.9(L) 38.9 - 50.3 % [facility] Plt 266 150 - 400 K/cumm [facility] MPV 9.4 9.1 - 12.3 fL [facility] RBC 3.34(L) 4.30 - 5.80 M/cumm [facility] MCV 83.5 81.3 - 96.4 fL [facility] MCH 26.0(L) 27.1 - 33.3 pg [facility] MCHC 31.2(L) 32.3 - 35.7 g/dL [facility] RDW CV 15.2(H) 11.1 - 14.9 % [facility] RDW SD 45.6 35.7 - 48.1 fL [facility] NRBC abs 0.00 0.00 - 0.01 K/cumm [facility] Blood 09/15/2025 10:0 9 PM CDT 09/15/2025 10:57 PM CDT Leonardo Hinton MD LAB BLOOD ORDERABLES Final Result Performing Organization Address [facility]/ZIP Co de Phone Number [facility] [place] [address] * Magnesium (09/15/2025 10:09 PM CDT) Pathologist [facility] Magnesium 1.9 1.4 - 2.5 mg/dL Blood 09/15/2025 10:0 9 PM CDT 09/15/2025 10:50 PM CDT Leonardo Hinton MD LAB BLOOD ORDERABLES Final Result Performing Organization Address City/[facility]/ZIP Co de Phone Number [facility] Department [place] [address] * (ABNORMAL) Basic metabolic panel (09/15/2025 10:09 PM CDT) Pathologist [facility] Sodium 142 135 - 145 mmol/L Potassium, pl 3.8 3.3 - 4.9 mmol/L [facility] Chloride 101 97 - 110 mmol/L [facility] CO2 30 22 - 32 mmol/L [facility] Anion gap 11 2 - 15 mmol/L [facility] BUN 27(H) 6 - 25 mg/dL [facility] Creatinine 1.55(H) 0.80 - 1.30 mg/dL [facility] Glucose 141 70 - 199 mg/dL [facility] Comment: Interpretive Data Fasting glucose >/= 126 mg/dl is diagnostic for diabetes. Fasting is defined as no caloric intake for at least 8 hours. Fasting glucose between 100 mg/dl to 125 mg/dl is diagnostic of prediabetes. In a patient with classic symptoms of hyperglycemia or hyperglycemic crisis, a random glucose >/= 200 mg/dl is diagnostic for diabetes. In the absence of unequivocal hyperglycemia, results should be confirmed by repeat testing. The classification and Diagnosis of Diabetes Diabetes Care 2021; 46: S19-S40. Current interpretive data was last revised 2022. Calcium 9.2 8.5 - 10.3 mg/dL [facility] Blood 09/15/2025 10:0 9 PM CDT 09/15/2025 10:50 PM CDT Leonardo Hinton MD LAB BLOOD ORDERABLES Final Result Performing Organization Address [facility] Co de Phone Number [facility] Department [place] [address] * POCT glucose (09/15/2025 8:09 PM CDT) Glucose, POC 134 70 - 199 mg/dL Blood 09/15/2025 8:09 PM CDT 09/15/2025 8:09 PM CDT Leonardo Hinton MD LAB POCT ORDERABLES - DEVICE Final Result [facility] [place] [address] * POCT glucose (09/15/2025 4:33 PM CDT) Glucose, POC 118 70 - 199 mg/dL Blood 09/15/2025 4:33 PM CDT 09/15/2025 4:33 PM CDT Leonardo Hinton MD LAB POCT ORDERABLES - DEVICE Final Result Performing Organization Address City/[facility]/ZIP [place] [address] * POCT glucose (09/15/2025 4:18 PM CDT) Glucose, POC 124 70 - 199 mg/dL Blood 09/15/2025 4:18 PM CDT 09/15/2025 4:18 PM CDT Leonardo Hinton MD LAB POCT ORDERABLES - DEVICE Final Result Performing Organization Address City/[facility] [place] [address] * POCT glucose (09/15/2025 11:13 AM CDT) Glucose, POC 138 70 - 199 mg/dL Blood 09/15/2025 11:1 3 AM CDT 09/15/2025 11:13 AM CDT us Leonardo Hinton MD LAB POCT ORDERABLES - DEVICE Final Result Performing Organization Address [facility] de Phone Number [facility] [place] [address] * POCT glucose (09/15/2025 8:39 AM CDT) Glucose, POC 100 70 - 199 mg/dL Blood 09/15/2025 8:39 AM CDT 09/15/2025 8:39 AM CDT us Leonardo Hinton MD LAB POCT ORDERABLES - DEVICE Final Result Performing Organization Address [facility] de Phone Number [facility] of [employer] [place] [address] * POCT glucose (09/15/2025 6:15 AM CDT) Glucose, POC 106 70 - 199 mg/dL Blood 09/15/2025 6:15 AM CDT 09/15/2025 6:15 AM CDT Leonardo Hinton MD LAB POCT ORDERABLES - DEVICE Final Result Performing Organization Address [facility] de Phone Number [facility] [place] [address] * POCT glucose (09/14/2025 8:00 PM CDT) Glucose, POC 154 70 - 199 mg/dL Blood 09/14/2025 8:00 PM CDT 09/14/2025 8:00 PM CDT Leonardo Hinton MD LAB POCT ORDERABLES - DEVICE Final Result Performing Organization Address City/[facility]/ZIP Co de Phone Number [facility] [place] [address] * POCT glucose (09/14/2025 4:37 PM CDT) Glucose, POC 131 70 - 199 mg/dL Blood 09/14/2025 4:37 PM CDT 09/14/2025 4:37 PM CDT Leonardo Hinton MD LAB POCT ORDERABLES - DEVICE Final Result Performing Organization Address [facility] Co de Phone Number [facility] [place] [address] * POCT glucose (09/14/2025 11:37 AM CDT) Glucose, POC 142 70 - 199 mg/dL Blood 09/14/2025 11:3 7 AM CDT 09/14/2025 11:37 AM CDT Leonardo Hinton MD LAB POCT ORDERABLES - DEVICE Final Result Performing Organization Address City/[facility]/ZIP Co de Phone Number [facility] [place] [address] * POCT glucose (09/14/2025 6:32 AM CDT) Glucose, POC 100 70 - 199 mg/dL Blood 09/14/2025 6:32 AM CDT 09/14/2025 6:32 AM CDT Leonardo Hinton MD LAB POCT ORDERABLES - DEVICE Final Result Performing Organization Address City/[facility]/ZIP Co de Phone Number [facility] [place] [address] * (ABNORMAL) eGFR (09/13/2025 11:54 PM CDT) eGFR 43(L) >=60 mL/min/1. 73 m2 Comment: Interpretive Data Reference Interval Normal >/= 90 mL/min/1.73m2 Mildly decreased* 60 - 89 mL/min/1.73m2 Mildly to moderately decreased 45 - 59 mL/min/1.73m2 Moderately to severely decreased 30 - 44 mL/min/1.73m2 Severely decreased 15 - 29 mL/min/1.73m2 Kidney Failure < 15 mL/min/1.73m2 *Relative to young adult level Estimated glomerular filtration rate is determined by the 2020 CKD-EPI equation recommended by the National Kidney Foundation (A Unifying Approach to GFR Estimation: Recommendations of the [employer]F-ASK Task Force on Reassessing the Inclusion of Race in Diagnosing Kidney Disease, JASN 2020). The CKD-EPI equation should not be used for patients with unstable renal function and has not been validated in children and those over 70. Current interpretive data was last reviewed 2021. Blood 09/13/2025 11:5 4 PM CDT 09/14/2025 12:32 AM CDT Leonardo Hinton MD LAB BLOOD ORDERABLES Final Result [facility] Department [place] [address] * (ABNORMAL) Basic metabolic panel (09/13/2025 11:54 PM CDT) Pathologist [facility] Sodium 139 135 - 145 mmol/L Potassium, pl 3.6 3.3 - 4.9 mmol/L [facility] Chloride 99 97 - 110 mmol/L [facility] CO2 31 22 - 32 mmol/L [facility] Anion gap 9 2 - 15 mmol/L [facility] BUN 28(H) 6 - 25 mg/dL [facility] Creatinine 1.61(H) 0.80 - 1.30 mg/dL [facility] Glucose 102 70 - 199 mg/dL [facility] Comment: Interpretive Data Fasting glucose >/= 126 mg/dl is diagnostic for diabetes. Fasting is defined as no caloric intake for at least 8 hours. Fasting glucose between 100 mg/dl to 125 mg/dl is diagnostic of prediabetes. In a patient with classic symptoms of hyperglycemia or hyperglycemic crisis, a random glucose >/= 200 mg/dl is diagnostic for diabetes. In the absence of unequivocal hyperglycemia, results should be confirmed by repeat testing. The classification and Diagnosis of Diabetes Diabetes Care 2021; 46: S19-S40. Current interpretive data was last revised 2022. Calcium 9.3 8.5 - 10.3 mg/dL [facility] Blood 09/13/2025 11:5 4 PM CDT 09/14/2025 12:32 AM CDT Leonardo Hinton MD LAB BLOOD ORDERABLES Final Result Performing Organization Address [facility] Co de Phone Number [facility] Department [place] [address] * POCT glucose (09/13/2025 8:04 PM CDT) Glucose, POC 153 70 - 199 mg/dL Blood 09/13/2025 8:04 PM CDT 09/13/2025 8:04 PM CDT Leonardo Hinton MD LAB POCT ORDERABLES - DEVICE Final Result Performing Organization Address City/[facility]/ZIP Co de Phone Number [facility] Department [place] [address] * POCT glucose (09/13/2025 4:33 PM CDT) Glucose, POC 109 70 - 199 mg/dL Blood 09/13/2025 4:33 PM CDT 09/13/2025 4:33 PM CDT Leonardo Hinton MD LAB POCT ORDERABLES - DEVICE Final Result Performing Organization Address City/[facility]/[place] [address] * POCT glucose (09/13/2025 11:35 AM CDT) Glucose, POC 140 70 - 199 mg/dL Blood 09/13/2025 11:3 5 AM CDT 09/13/2025 11:35 AM CDT Leonardo Hinton MD LAB POCT ORDERABLES - DEVICE Final Result Performing Organization Address [facility] [place] [address] * POCT glucose (09/13/2025 8:00 AM CDT) Glucose, POC 108 70 - 199 mg/dL Blood 09/13/2025 8:00 AM CDT 09/13/2025 8:00 AM CDT Leonardo Hinton MD LAB POCT ORDERABLES - DEVICE Final Result Performing Organization Address [facility]/ZIP Co de Phone Number [facility] [place] [address] * POCT glucose (09/13/2025 6:29 AM CDT) Glucose, POC 109 70 - 199 mg/dL Blood 09/13/2025 6:29 AM CDT 09/13/2025 6:29 AM CDT Leonardo Hinton MD LAB POCT ORDERABLES - DEVICE Final Result Performing Organization Address City/[facility]/ZIP Co de Phone Number [facility] [place] [address] * POCT glucose (09/12/2025 8:07 PM CDT) Glucose, POC 174 70 - 199 mg/dL Blood 09/12/2025 8:07 PM CDT 09/12/2025 8:07 PM CDT Leonardo Hinton MD LAB POCT ORDERABLES - DEVICE Final Result Performing Organization Address City/[facility] Co de Phone Number [facility] [place] [address] * POCT glucose (09/12/2025 4:16 PM CDT) Glucose, POC 126 70 - 199 mg/dL Blood 09/12/2025 4:16 PM CDT 09/12/2025 4:16 PM CDT Leonardo Hinton MD LAB POCT ORDERABLES - DEVICE Final Result Performing Organization Address [facility] de Phone Number [facility] [place] [address] * POCT glucose (09/12/2025 11:03 AM CDT) Glucose, POC 127 70 - 199 mg/dL Blood 09/12/2025 11:0 3 AM CDT 09/12/2025 11:03 AM CDT Leonardo Hinton MD LAB POCT ORDERABLES - DEVICE Final Result Performing Organization Address City/[facility] Co de Phone Number [facility] [place] [address] * POCT glucose (09/12/2025 8:08 AM CDT) Glucose, POC 121 70 - 199 mg/dL Blood 09/12/2025 8:08 AM CDT 09/12/2025 8:08 AM CDT Leonardo Hinton MD LAB POCT ORDERABLES - DEVICE Final Result Performing Organization Address City/[facility] Co de Phone Number [facility] Department [place] [address] * POCT glucose (09/12/2025 6:23 AM CDT) Pathologist [facility] Glucose, POC 126 70 - 199 mg/dL Comment:Glu2: RN/MD Notified Glucose comment 1 Glu2: RN/MD Notified [facility] Blood 09/12/2025 6:23 AM CDT 09/12/2025 6:23 AM CDT Leonardo Hinton MD LAB POCT ORDERABLES - DEVICE Final Result Performing Organization Address [facility] Co de Phone Number [facility] Department [place] [address] * (ABNORMAL) eGFR (09/11/2025 10:52 PM CDT) [facility] eGFR 42(L) >=60 mL/min/1. 73 m2 Comment: Interpretive Data Reference Interval Normal >/= 90 mL/min/1.73m2 Mildly decreased* 60 - 89 mL/min/1.73m2 Mildly to moderately decreased 45 - 59 mL/min/1.73m2 Moderately to severely decreased 30 - 44 mL/min/1.73m2 Severely decreased 15 - 29 mL/min/1.73m2 Kidney Failure < 15 mL/min/1.73m2 *Relative to young adult level Estimated glomerular filtration rate is determined by the 2020 CKD-EPI equation recommended by the National Kidney Foundation (A Unifying Approach to GFR Estimation: Recommendations of the NKF-ASK Task Force on Reassessing the Inclusion of Race in Diagnosing Kidney Disease, JASN 2020). The CKD-EPI equation should not be used for patients with unstable renal function and has not been validated in children and those over 70. Current interpretive data was last reviewed 2021. Blood 09/11/2025 10:5 2 PM CDT 09/11/2025 11:40 PM CDT Bouchra Dueñas MD LAB BLOOD ORDERABLES Final Result [facility] Department [place] [address] * Differential, auto (09/11/2025 10:52 PM CDT) Neutrophil abs 3.81 1.50 - 6.50 K/cumm Imm gran abs 0.02 0.00 - 0.10 K/cumm [facility] Lymphocyte abs 1.10 0.80 - 3.30 K/cumm [facility] Monocyte abs 0.65 0.20 - 0.80 K/cumm [facility] Eosinophil abs 0.21 0.00 - 0.50 K/cumm [facility] Basophil abs 0.02 0.00 - 0.10 K/cumm [facility] Neutrophil pct 65.7 % [facility] Comment: Interpretive Data Percent cell count reference ranges are not reported, since discordance with absolute values may lead to misinterpretation of CBC data. Current Interpretive Data was last revised on 2018. Imm gran pct 0.3 % [facility] Comment: Interpretive Data Percent cell count reference ranges are not reported, since discordance with absolute values may lead to misinterpretation of CBC data. Current Interpretive Data was last revised on 2018. Lymphocyte pct 18.9 % [facility] Comment: Interpretive Data Percent cell count reference ranges are not reported, since discordance with absolute values may lead to misinterpretation of CBC data. Current Interpretive Data was last revised on 2018. Monocyte pct 11.2 % [facility] Comment: Interpretive Data Percent cell count reference ranges are not reported, since discordance with absolute values may lead to misinterpretation of CBC data. Current Interpretive Data was last revised on 2018. Eosinophil pct 3.6 % [facility] Comment: Interpretive Data Percent cell count reference ranges are not reported, since discordance with absolute values may lead to misinterpretation of CBC data. Current Interpretive Data was last revised on 2018. Basophil pct 0.3 % [facility] Comment: Interpretive Data Percent cell count reference ranges are not reported, since discordance with absolute values may lead to misinterpretation of CBC data. Current Interpretive Data was last revised on 2018. Blood 09/11/2025 10:5 2 PM CDT 09/11/2025 11:41 PM CDT us Bouchra Dueñas MD LAB BLOOD ORDERABLES Final Result [facility] Department [place] [address] * (ABNORMAL) CBC with auto differential (09/11/2025 10:52 PM CDT) WBC 5.81 3.80 - 9.90 K/cumm Hgb 8.1(L) 13.0 - 17.5 g/dL [facility] Hct 26.0(L) 38.9 - 50.3 % [facility] Plt 247 150 - 400 K/cumm [facility] MPV 9.4 9.1 - 12.3 fL [facility] RBC 3.15(L) 4.30 - 5.80 M/cumm [facility] MCV 82.5 81.3 - 96.4 fL [facility] MCH 25.7(L) 27.1 - 33.3 pg [facility] MCHC 31.2(L) 32.3 - 35.7 g/dL [facility] RDW CV 14.6 11.1 - 14.9 % [facility] RDW SD 43.3 35.7 - 48.1 fL [facility] NRBC abs 0.00 0.00 - 0.01 K/cumm [facility] Blood 09/11/2025 10:5 2 PM CDT 09/11/2025 11:41 PM CDT us Bouchra Dueñas MD LAB BLOOD ORDERABLES Final Result [facility] Department [place] [address] * (ABNORMAL) Basic metabolic panel (09/11/2025 10:52 PM CDT) Pathologist [facility] Sodium 139 135 - 145 mmol/L Potassium, pl 3.6 3.3 - 4.9 mmol/L [facility] Chloride 99 97 - 110 mmol/L [facility] CO2 32 22 - 32 mmol/L [facility] Anion gap 8 2 - 15 mmol/L [facility] BUN 29(H) 6 - 25 mg/dL [facility] Creatinine 1.64(H) 0.80 - 1.30 mg/dL [facility] Glucose 113 70 - 199 mg/dL [facility] Comment: Interpretive Data Fasting glucose >/= 126 mg/dl is diagnostic for diabetes. Fasting is defined as no caloric intake for at least 8 hours. Fasting glucose between 100 mg/dl to 125 mg/dl is diagnostic of prediabetes. In a patient with classic symptoms of hyperglycemia or hyperglycemic crisis, a random glucose >/= 200 mg/dl is diagnostic for diabetes. In the absence of unequivocal hyperglycemia, results should be confirmed by repeat testing. The classification and Diagnosis of Diabetes Diabetes Care 202; 46: S19-S40. Current interpretive data was last revised 2022. Calcium 9.1 8.5 - 10.3 mg/dL [facility] Blood 09/11/2025 10:5 2 PM CDT 09/11/2025 11:40 PM CDT Bouchra Dueñas MD LAB BLOOD ORDERABLES Final Result [facility] Department [place] [address] * POCT glucose (09/11/2025 8:33 PM CDT) Glucose, POC 156 70 - 199 mg/dL Comment:Glu2: RN/MD Notified Glucose comment 1 Glu2: RN/MD Notified [facility] Blood 09/11/2025 8:33 PM CDT 09/11/2025 8:33 PM CDT Leonardo Hinton MD LAB POCT ORDERABLES - DEVICE Final Result Performing Organization Address City/[facility] Co de Phone Number [facility] [place] [address] * POCT glucose (09/11/2025 5:37 PM CDT) Glucose, POC 106 70 - 199 mg/dL Blood 09/11/2025 5:37 PM CDT 09/11/2025 5:37 PM CDT Leonardo Hinton MD LAB POCT ORDERABLES - DEVICE Final Result Performing Organization Address [facility] Co de Phone Number [facility] [place] [address] * POCT glucose (09/11/2025 5:04 PM CDT) Glucose, POC 124 70 - 199 mg/dL Blood 09/11/2025 5:04 PM CDT 09/11/2025 5:04 PM CDT Leonardo Hinton MD LAB POCT ORDERABLES - DEVICE Final Result Performing Organization Address City/[facility] Co de Phone Number [facility] [place] [address] * POCT glucose (09/11/2025 12:28 PM CDT) Glucose, POC 155 70 - 199 mg/dL Blood 09/11/2025 12:2 8 PM CDT 09/11/2025 12:28 PM CDT Leonardo Hinton MD LAB POCT ORDERABLES - DEVICE Final Result Performing Organization Address [facility] Co de Phone Number [facility] [place] [address] * POCT glucose (09/11/2025 8:06 AM CDT) Glucose, POC 104 70 - 199 mg/dL Blood 09/11/2025 8:06 AM CDT 09/11/2025 8:06 AM CDT Leonardo Hinton MD LAB POCT ORDERABLES - DEVICE Final Result Performing Organization Address [facility] de Phone Number [facility] [place] [address] * POCT glucose (09/11/2025 6:18 AM CDT) Glucose, POC 102 70 - 199 mg/dL Comment:Glu2: RN/MD Notified Glucose comment 1 Glu2: RN/MD Notified [facility] Blood 09/11/2025 6:18 AM CDT 09/11/2025 6:18 AM CDT Leonardo Hinton MD LAB POCT ORDERABLES - DEVICE Final Result Performing Organization Address [facility] Co de Phone Number [facility] [place] [address] * POCT glucose (09/10/2025 9:11 PM CDT) Glucose, POC 135 70 - 199 mg/dL Blood 09/10/2025 9:11 PM CDT 09/10/2025 9:11 PM CDT us Bouchra Dueñas MD LAB POCT O RDERABLES - DEVICE Final Result Performing Organization Address City/[facility]/ZIP Co de Phone Number [facility] [place] [address] * (ABNORMAL) eGFR (09/10/2025 9:01 PM CDT) Pathologist [facility] eGFR 41(L) >=60 mL/min/1. 73 m2 Comment: Interpretive Data Reference Interval Normal >/= 90 mL/min/1.73m2 Mildly decreased* 60 - 89 mL/min/1.73m2 Mildly to moderately decreased 45 - 59 mL/min/1.73m2 Moderately to severely decreased 30 - 44 mL/min/1.73m2 Severely decreased 15 - 29 mL/min/1.73m2 Kidney Failure < 15 mL/min/1.73m2 *Relative to young adult level Estimated glomerular filtration rate is determined by the 2020 CKD-EPI equation recommended by the National Kidney Foundation (A Unifying Approach to GFR Estimation: Recommendations of the NKF-ASK Task Force on Reassessing the Inclusion of Race in Diagnosing Kidney Disease, JASN 2020). The CKD-EPI equation should not be used for patients with unstable renal function and has not been validated in children and those over 70. Current interpretive data was last reviewed 2021. Blood 09/10/2025 9:01 PM CDT 09/10/2025 10:36 PM CDT Bouchra Dueñas MD LAB BLOOD ORDERABLES Final Result [facility] Department [place] [address] * Differential, auto (09/10/2025 9:01 PM CDT) Pathologist [facility] Neutrophil abs 3.25 1.50 - 6.50 K/cumm Imm gran abs 0.03 0.00 - 0.10 K/cumm [facility] Lymphocyte abs 1.15 0.80 - 3.30 K/cumm [facility] Monocyte abs 0.67 0.20 - 0.80 K/cumm [facility] Eosinophil abs 0.18 0.00 - 0.50 K/cumm [facility] Basophil abs 0.02 0.00 - 0.10 K/cumm [facility] Neutrophil pct 61.3 % [facility] Comment: Interpretive Data Percent cell count reference ranges are not reported, since discordance with absolute values may lead to misinterpretation of CBC data. Current Interpretive Data was last revised on 2018. Imm gran pct 0.6 % [facility] Comment: Interpretive Data Percent cell count reference ranges are not reported, since discordance with absolute values may lead to misinterpretation of CBC data. Current Interpretive Data was last revised on 2018. Lymphocyte pct 21.7 % [facility] Comment: Interpretive Data Percent cell count reference ranges are not reported, since discordance with absolute values may lead to misinterpretation of CBC data. Current Interpretive Data was last revised on 2018. Monocyte pct 12.6 % [facility] Comment: Interpretive Data Percent cell count reference ranges are not reported, since discordance with absolute values may lead to misinterpretation of CBC data. Current Interpretive Data was last revised on 2018. Eosinophil pct 3.4 % [facility] Comment: Interpretive Data Percent cell count reference ranges are not reported, since discordance with absolute values may lead to misinterpretation of CBC data. Current Interpretive Data was last revised on 2018. Basophil pct 0.4 % [facility] Comment: Interpretive Data Percent cell count reference ranges are not reported, since discordance with absolute values may lead to misinterpretation of CBC data. Current Interpretive Data was last revised on 2018. Blood 09/10/2025 9:01 PM CDT 09/10/2025 10:35 PM CDT Bouchra Dueñas MD LAB BLOOD ORDERABLES Final Result [facility] Department [place] [address] * (ABNORMAL) CBC with auto differential (09/10/2025 9:01 PM CDT) [facility] WBC 5.30 3.80 - 9.90 K/cumm Hgb 7.9(L) 13.0 - 17.5 g/dL [facility] Hct 25.1(L) 38.9 - 50.3 % [facility] Plt 227 150 - 400 K/cumm [facility] MPV 9.8 9.1 - 12.3 fL [facility] RBC 2.99(L) 4.30 - 5.80 M/cumm [facility] MCV 83.9 81.3 - 96.4 fL [facility] MCH 26.4(L) 27.1 - 33.3 pg [facility] MCHC 31.5(L) 32.3 - 35.7 g/dL [facility] RDW CV 14.7 11.1 - 14.9 % [facility] RDW SD 44.6 35.7 - 48.1 fL [facility] NRBC abs 0.00 0.00 - 0.01 K/cumm [facility] Blood 09/10/2025 9:01 PM CDT 09/10/2025 10:35 PM CDT Bouchra Dueñas MD LAB BLOOD ORDERABLES Final Result [facility] Department [place] [address] * (ABNORMAL) Basic metabolic panel (09/10/2025 9:01 PM CDT) [facility] Sodium 141 135 - 145 mmol/L Potassium, pl 3.9 3.3 - 4.9 mmol/L [facility] Chloride 97 97 - 110 mmol/L [facility] CO2 33(H) 22 - 32 mmol/L [facility] Anion gap 11 2 - 15 mmol/L [facility] BUN 32(H) 6 - 25 mg/dL [facility] Creatinine 1.68(H) 0.80 - 1.30 mg/dL [facility] Glucose 118 70 - 199 mg/dL [facility] Comment: Interpretive Data Fasting glucose >/= 126 mg/dl is diagnostic for diabetes. Fasting is defined as no caloric intake for at least 8 hours. Fasting glucose between 100 mg/dl to 125 mg/dl is diagnostic of prediabetes. In a patient with classic symptoms of hyperglycemia or hyperglycemic crisis, a random glucose >/= 200 mg/dl is diagnostic for diabetes. In the absence of unequivocal hyperglycemia, results should be confirmed by repeat testing. The classification and Diagnosis of Diabetes Diabetes Care 2021; 46: S19-S40. Current interpretive data was last revised 2022. Calcium 9.5 8.5 - 10.3 mg/dL [facility] Blood 09/10/2025 9:01 PM CDT 09/10/2025 10:36 PM CDT Result [facility] Bouchra Dueñas MD LAB BLOOD ORDERABLES Final Result Performing Organization Address City/[facility] Co de Phone Number [facility] Department of [employer] [place] [address] * POCT glucose (09/10/2025 4:18 PM CDT) Glucose, POC 130 70 - 199 mg/dL Blood 09/10/2025 4:18 PM CDT 09/10/2025 4:18 PM CDT Result [facility] Bouchra Dueñas MD LAB POCT O RDERABLES - DEVICE Final Result [facility] Department of [employer] [place] [address] * POCT glucose (09/10/2025 1:05 PM CDT) Glucose, POC 140 70 - 199 mg/dL Blood 09/10/2025 1:05 PM CDT 09/10/2025 1:05 PM CDT Result [facility] Bouchra Dueñas MD LAB POCT O RDERABLES - DEVICE Final Result Performing Organization Address City/[facility]/ZIP Co de Phone Number [facility] [place] [address] * POCT glucose (09/10/2025 11:38 AM CDT) Glucose, POC 179 70 - 199 mg/dL Blood 09/10/2025 11:3 8 AM CDT 09/10/2025 11:38 AM CDT us Bouchra Dueñas MD LAB POCT O RDERABLES - DEVICE Final Result Performing Organization Address [facility] Co de Phone Number [facility] [place] [address] * POCT glucose (09/10/2025 7:51 AM CDT) Glucose, POC 123 70 - 199 mg/dL Blood 09/10/2025 7:51 AM CDT 09/10/2025 7:51 AM CDT Bouchra Dueñas MD LAB POCT O RDERABLES - DEVICE Final Result Performing Organization Address City/[facility] Co de Phone Number [facility] [place] [address] * (ABNORMAL) Blood gas, venous (09/10/2025 5:56 AM CDT) pH, Venous 7.43 7.32 - 7.43 PCO2, Venous 55(H) 40 - 50 mmHg [facility] PO2, Venous 28 mmHg [facility] Comment: Interpretive Data No Reference Range Established Current Interpretive Data was last revised on 2018. HCO3 Venous, Calculated 36(H) 20 - 30 mmol/L [facility] BE, venous 10 mmol/L [facility] Comment: Interpretive Data No Reference Range Established Current Interpretive Data was last revised on 2018. Blood 09/10/2025 5:56 AM CDT 09/10/2025 6:33 AM CDT Bouchra Dueñas MD LAB BLOOD ORDERABLES Final Result [facility] Department [place] [address] * POCT glucose (09/09/2025 9:00 PM CDT) Glucose, POC 156 70 - 199 mg/dL Blood 09/09/2025 9:00 PM CDT 09/09/2025 9:00 PM CDT Bouchra Dueñas MD LAB POCT O RDERABLES - DEVICE Final Result Performing Organization Address [facility] Co de Phone Number [facility] [place] [address] * (ABNORMAL) eGFR (09/09/2025 8:46 PM CDT) eGFR 36(L) >=60 mL/min/1. 73 m2 Comment: Interpretive Data Reference Interval Normal >/= 90 mL/min/1.73m2 Mildly decreased* 60 - 89 mL/min/1.73m2 Mildly to moderately decreased 45 - 59 mL/min/1.73m2 Moderately to severely decreased 30 - 44 mL/min/1.73m2 Severely decreased 15 - 29 mL/min/1.73m2 Kidney Failure < 15 mL/min/1.73m2 *Relative to young adult level Estimated glomerular filtration rate is determined by the 2020 CKD-EPI equation recommended by the National Kidney Foundation (A Unifying Approach to GFR Estimation: Recommendations of the NKF-ASK Task Force on Reassessing the Inclusion of Race in Diagnosing Kidney Disease, JASN 202). The CKD-EPI equation should not be used for patients with unstable renal function and has not been validated in children and those over 70. Current interpretive data was last reviewed 2021. Blood 09/09/2025 8:46 PM CDT 09/09/2025 10:37 PM CDT Bouchra Dueñas MD LAB BLOOD ORDERABLES Final Result [facility] [place] [address] * Differential, auto (09/09/2025 8:46 PM CDT) Neutrophil abs 3.53 1.50 - 6.50 K/cumm Imm gran abs 0.03 0.00 - 0.10 K/cumm [facility] [facility] Lymphocyte abs 0.98 0.80 - 3.30 K/cumm [facility] Monocyte abs 0.64 0.20 - 0.80 K/cumm [facility] Eosinophil abs 0.20 0.00 - 0.50 K/cumm [facility] Basophil abs 0.01 0.00 - 0.10 K/cumm [facility] Neutrophil pct 65.4 % [facility] Comment: Interpretive Data Percent cell count reference ranges are not reported, since discordance with absolute values may lead to misinterpretation of CBC data. Current Interpretive Data was last revised on 2018. Imm gran pct 0.6 % [facility] Comment: Interpretive Data Percent cell count reference ranges are not reported, since discordance with absolute values may lead to misinterpretation of CBC data. Current Interpretive Data was last revised on 2018. Lymphocyte pct 18.2 % [facility] Comment: Interpretive Data Percent cell count reference ranges are not reported, since discordance with absolute values may lead to misinterpretation of CBC data. Current Interpretive Data was last revised on 2018. Monocyte pct 11.9 % [facility] Comment: Interpretive Data Percent cell count reference ranges are not reported, since discordance with absolute values may lead to misinterpretation of CBC data. Current Interpretive Data was last revised on 2018. Eosinophil pct 3.7 % [facility] Comment: Interpretive Data Percent cell count reference ranges are not reported, since discordance with absolute values may lead to misinterpretation of CBC data. Current Interpretive Data was last revised on 2018. Basophil pct 0.2 % [facility] Comment: Interpretive Data Percent cell count reference ranges are not reported, since discordance with absolute values may lead to misinterpretation of CBC data. Current Interpretive Data was last revised on 2018. Blood 09/09/2025 8:46 PM CDT 09/09/2025 10:36 PM CDT us Bouchra Dueñas MD LAB BLOOD ORDERABLES Final Result [facility] Department [place] [address] * (ABNORMAL) CBC with auto differential (09/09/2025 8:46 PM CDT) Pathologist [facility] WBC 5.39 3.80 - 9.90 K/cumm Hgb 8.0(L) 13.0 - 17.5 g/dL [facility] Hct 26.7(L) 38.9 - 50.3 % [facility] Plt 215 150 - 400 K/cumm [facility] MPV 9.9 9.1 - 12.3 fL [facility] RBC 3.09(L) 4.30 - 5.80 M/cumm [facility] MCV 86.4 81.3 - 96.4 fL [facility] MCH 25.9(L) 27.1 - 33.3 pg [facility] MCHC 30.0(L) 32.3 - 35.7 g/dL [facility] RDW CV 14.5 11.1 - 14.9 % [facility] RDW SD 44.8 35.7 - 48.1 fL [facility] NRBC abs 0.00 0.00 - 0.01 K/cumm [facility] Blood 09/09/2025 8:46 PM CDT 09/09/2025 10:36 PM CDT us Bouchra Dueñas MD LAB BLOOD ORDERABLES Final Result [facility] Department [place] [address] * (ABNORMAL) Basic metabolic panel (09/09/2025 8:46 PM CDT) [facility] Sodium 142 135 - 145 mmol/L Potassium, pl 4.3 3.3 - 4.9 mmol/L [facility] Chloride 98 97 - 110 mmol/L [facility] CO2 36(H) 22 - 32 mmol/L [facility] Anion gap 8 2 - 15 mmol/L [facility] BUN 32(H) 6 - 25 mg/dL [facility] Creatinine 1.86(H) 0.80 - 1.30 mg/dL [facility] Glucose 136 70 - 199 mg/dL [facility] Comment: Interpretive Data Fasting glucose >/= 126 mg/dl is diagnostic for diabetes. Fasting is defined as no caloric intake for at least 8 hours. Fasting glucose between 100 mg/dl to 125 mg/dl is diagnostic of prediabetes. In a patient with classic symptoms of hyperglycemia or hyperglycemic crisis, a random glucose >/= 200 mg/dl is diagnostic for diabetes. In the absence of unequivocal hyperglycemia, results should be confirmed by repeat testing. The classification and Diagnosis of Diabetes Diabetes Care 202; 46: S19-S40. Current interpretive data was last revised 2022. Calcium 9.9 8.5 - 10.3 mg/dL [facility] Blood 09/09/2025 8:46 PM CDT 09/09/2025 10:37 PM CDT Bouchra Dueñas MD LAB BLOOD ORDERABLES Final Result [facility] Department [place] [address] * POCT glucose (09/09/2025 4:30 PM CDT) Glucose, POC 146 70 - 199 mg/dL Blood 09/09/2025 4:30 PM CDT 09/09/2025 4:30 PM CDT Bouchra Dueñas MD LAB POCT O RDERABLES - DEVICE Final Result Performing Organization Address [facility] Co de Phone Number [facility] [employer] [place] [address] * POCT glucose (09/09/2025 1:25 PM CDT) Glucose, POC 141 70 - 199 mg/dL Blood 09/09/2025 1:25 PM CDT 09/09/2025 1:25 PM CDT Bouchra Dueñas MD LAB POCT O RDERABLES - DEVICE Final Result Performing Organization Address [facility] Co de Phone Number [facility] [employer] [place] [address] * POCT glucose (09/09/2025 11:46 AM CDT) Glucose, POC 147 70 - 199 mg/dL Blood 09/09/2025 11:4 6 AM CDT 09/09/2025 11:46 AM CDT Bouchra Dueñas MD LAB POCT O RDERABLES - DEVICE Final Result Performing Organization Address City/[facility] Co de Phone Number [facility] [employer] [place] [address] * POCT glucose (09/09/2025 6:43 AM CDT) Glucose, POC 109 70 - 199 mg/dL Blood 09/09/2025 6:43 AM CDT 09/09/2025 6:43 AM CDT us Bouchra Dueñas MD LAB POCT O RDERABLES - DEVICE Final Result Performing Organization Address [facility] Co de Phone Number DAMIAN [facility] Department [place] [address] * (ABNORMAL) eGFR (09/09/2025 3:54 AM CDT) eGFR 48(L) >=60 mL/min/1. 73 m2 Comment: Interpretive Data Reference Interval Normal >/= 90 mL/min/1.73m2 Mildly decreased* 60 - 89 mL/min/1.73m2 Mildly to moderately decreased 45 - 59 mL/min/1.73m2 Moderately to severely decreased 30 - 44 mL/min/1.73m2 Severely decreased 15 - 29 mL/min/1.73m2 Kidney Failure < 15 mL/min/1.73m2 *Relative to young adult level Estimated glomerular filtration rate is determined by the 2020 CKD-EPI equation recommended by the National Kid[employer] (A Unifying Approach to GFR Estimation: Recommendations of the NKF-ASK Task Force on Reassessing the Inclusion of Race in Diagnosing Kidney Disease, JASN 2020). The CKD-EPI equation should not be used for patients with unstable renal function and has not been validated in children and those over 70. Current interpretive data was last reviewed 2021. Blood 09/09/2025 3:54 AM CDT 09/09/2025 5:01 AM CDT us Bouchra Dueñas MD LAB BLOOD ORDERABLES Final Result Performing Organization Address City/[facility]/ZIP Co de Phone Number [facility] [place] [address] * Differential, auto (09/09/2025 3:54 AM CDT) Neutrophil abs 2.93 1.50 - 6.50 K/cumm Imm gran abs 0.04 0.00 - 0.10 K/cumm [facility] Lymphocyte abs 1.20 0.80 - 3.30 K/cumm [facility] Monocyte abs 0.65 0.20 - 0.80 K/cumm [facility] Eosinophil abs 0.20 0.00 - 0.50 K/cumm [facility] Basophil abs 0.02 0.00 - 0.10 K/cumm [facility] Neutrophil pct 58.1 % [facility] Comment: Interpretive Data Percent cell count reference ranges are not reported, since discordance with absolute values may lead to misinterpretation of CBC data. Current Interpretive Data was last revised on 2018. Imm gran pct 0.8 % [facility] Comment: Interpretive Data Percent cell count reference ranges are not reported, since discordance with absolute values may lead to misinterpretation of CBC data. Current Interpretive Data was last revised on 2018. Lymphocyte pct 23.8 % [facility] Comment: Interpretive Data Percent cell count reference ranges are not reported, since discordance with absolute values may lead to misinterpretation of CBC data. Current Interpretive Data was last revised on 2018. Monocyte pct 12.9 % [facility] Comment: Interpretive Data Percent cell count reference ranges are not reported, since discordance with absolute values may lead to misinterpretation of CBC data. Current Interpretive Data was last revised on 2018. Eosinophil pct 4.0 % [facility] Comment: Interpretive Data Percent cell count reference ranges are not reported, since discordance with absolute values may lead to misinterpretation of CBC data. Current Interpretive Data was last revised on 2018. Basophil pct 0.4 % [facility] Comment: Interpretive Data Percent cell count reference ranges are not reported, since discordance with absolute values may lead to misinterpretation of CBC data. Current Interpretive Data was last revised on 2018. Blood 09/09/2025 3:54 AM CDT 09/09/2025 5:00 AM CDT us Bouchra Dueñas MD LAB BLOOD ORDERABLES Final Result [facility] [place] [address] * (ABNORMAL) Pro B-type natriuretic peptide (09/09/2025 3:54 AM CDT) NT-proBNP 2,249(H) <=450 pg/mL Comment: Interpretive Comments: A. Dyspnea in Acute Care Setting All Ages: < 300 pg/ml, acute heart failure unlikely. < 50 yrs: 300 - 450 pg/ml, further investigation warranted. > 450 pg/ml, acute heart failure likely. 50 - 74 yrs: 300 - 900 pg/ml, further investigation warranted. > 900 pg/ml, acute heart failure likely . > or = 75 yrs: 450 - 1800 pg/ml, further investigation warranted. > 1800 pg/ml, acute heart failure likely. B. Non-acute Setting < 75 yrs < 125 pg/ml, rules out heart failure. > or = 125 pg/ml, further investigation warranted. > or = 75 yrs < 450 pg/ml, rules out heart failure. > or = 450 pg/ml, further investigation warranted. - Knowledge of each individual patient's NT-proBNP range may be more useful than using similar cut-points for every patient. Please note that marked elevations in NT-proBNP levels may be observed in state other than Left Ventricular Congestive Failure, including: acute coronary syndromes, right heart strain/failure (including pulmonary embolism and cor pulmonale), critical illness, renal failure, as well as advanced age. - References: 1. [facility] AGUILAR et.al. Eur Heart J. 2006:27:330-337. 2. Everardo RW, [place] WILSON. J. AM Michael Cardiol: Cardiovasc Imag. 2009;2: 216- 225. Interpretive Data Last Revised Date: 2018. Blood 09/09/2025 3:54 AM CDT 09/09/2025 5:01 AM CDT us Bouchra Dueñas MD LAB BLOOD ORDERABLES Final Result DAMIAN [facility] Department [place] [address] * (ABNORMAL) CBC with auto differential (09/09/2025 3:54 AM CDT) Pathologist [facility] WBC 5.04 3.80 - 9.90 K/cumm Hgb 8.3(L) 13.0 - 17.5 g/dL [facility] Hct 27.4(L) 38.9 - 50.3 % [facility] Plt 196 150 - 400 K/cumm [facility] MPV 10.0 9.1 - 12.3 fL [facility] RBC 3.22(L) 4.30 - 5.80 M/cumm [facility] MCV 85.1 81.3 - 96.4 fL [facility] MCH 25.8(L) 27.1 - 33.3 pg [facility] MCHC 30.3(L) 32.3 - 35.7 g/dL [facility] RDW CV 14.3 11.1 - 14.9 % [facility] RDW SD 44.1 35.7 - 48.1 fL [facility] NRBC abs 0.00 0.00 - 0.01 K/cumm [facility] Blood 09/09/2025 3:54 AM CDT 09/09/2025 5:00 AM CDT us Bouchra Dueñas MD LAB BLOOD ORDERABLES Final Result [facility] Department [place] [address] * (ABNORMAL) Vitamin D 25 hydroxy (09/09/2025 3:54 AM CDT) Pathologist [facility] Vitamin D 25-OH 17(L) 30 - 80 ng/mL Blood 09/09/2025 3:54 AM CDT 09/09/2025 5:01 AM CDT Bouchra Dueñas MD LAB BLOOD ORDERABLES Final Result [facility] [place] [address] * Phosphorus (09/09/2025 3:54 AM CDT) [facility] Phosphorus, pl 3.4 2.3 - 4.5 mg/dL Blood 09/09/2025 3:54 AM CDT 09/09/2025 5:01 AM CDT Bouchra Dueñas MD LAB BLOOD ORDERAB[place] [address] * Magnesium (09/09/2025 3:54 AM CDT) [facility] Magnesium 1.9 1.4 - 2.5 mg/dL Blood 09/09/2025 3:54 AM CDT 09/09/2025 5:01 AM CDT us Bouchra Dueñas MD LAB BLOOD ORDERABLES [place] [address] * (ABNORMAL) Hepatic function panel (09/09/2025 3:54 AM CDT) [facility] Bilirubin, total 0.5 0.1 - 1.2 mg/dL Bilirubin, direct 0.2 0.1 - 0.3 mg/dL [facility] Protein, pl 7.8 6.5 - 8.5 g/dL [facility] Albumin 4.0 3.5 - 5.0 g/dL [facility] Alk phos 27(L) 40 - 130 Units/L [facility] ALT 16 7 - 55 Units/L [facility] AST 26 10 - 50 Units/L [facility] Blood 09/09/2025 3:54 AM CDT 09/09/2025 5:01 AM CDT us Bouchra Dueñas MD LAB BLOOD ORDERABLES Final Result [facility] Department [place] [address] * (ABNORMAL) Basic metabolic panel (09/09/2025 3:54 AM CDT) Sodium 144 135 - 145 mmol/L Potassium, pl 3.6 3.3 - 4.9 mmol/L [facility] Chloride 100 97 - 110 mmol/L [facility] CO2 36(H) 22 - 32 mmol/L [facility] Anion gap 8 2 - 15 mmol/L [facility] BUN 29(H) 6 - 25 mg/dL [facility] Creatinine 1.47(H) 0.80 - 1.30 mg/dL [facility] Glucose 102 70 - 199 mg/dL [facility] Comment: Interpretive Data Fasting glucose >/= 126 mg/dl is diagnostic for diabetes. Fasting is defined as no caloric intake for at least 8 hours. Fasting glucose between 100 mg/dl to 125 mg/dl is diagnostic of prediabetes. In a patient with classic symptoms of hyperglycemia or hyperglycemic crisis, a random glucose >/= 200 mg/dl is diagnostic for diabetes. In the absence of unequivocal hyperglycemia, results should be confirmed by repeat testing. The classification and Diagnosis of Diabetes Diabetes Care 2021; 46: S19-S40. Current interpretive data was last revised 2022. Calcium 9.5 8.5 - 10.3 mg/dL [facility] Blood 09/09/2025 3:54 AM CDT 09/09/2025 5:01 AM CDT us Bouchra Dueñas MD LAB BLOOD ORDERABLES Final Result DAM[facility] Department [place] [address] * POCT glucose (09/08/2025 9:19 PM CDT) Glucose, POC 170 70 - 199 mg/dL Blood 09/08/2025 9:19 PM CDT 09/08/2025 9:19 PM CDT Bouchra Dueñas MD LAB POCT O RDERABLES - DEVICE Final Result Performing Organization Address [facility] de Phone Number [facility] [employer] [place] [address] * POCT glucose (09/08/2025 4:25 PM CDT) Glucose, POC 120 70 - 199 mg/dL Blood 09/08/2025 4:25 PM CDT 09/08/2025 4:25 PM CDT Bouchra Dueñas MD LAB POCT O RDERABLES - DEVICE Final Result Performing Organization Address [facility] de Phone Number [facility] [employer] [place] [address] * POCT glucose (09/08/2025 11:25 AM CDT) Glucose, POC 148 70 - 199 mg/dL Blood 09/08/2025 11:2 5 AM CDT 09/08/2025 11:25 AM CDT Bouchra Dueñas MD LAB POCT O RDERABLES - DEVICE Final Result Performing Organization Address [facility] de Phone Number [facility] [employer] [place] [address] * (ABNORMAL) Blood gas, arterial (09/08/2025 10:46 AM CDT) pH, Art 7.36 7.35 - 7.45 PCO2, Arterial 63(H) 35 - 45 mmHg [facility] PO2, Arterial 91 83 - 108 mmHg [facility] HCO3 Art (Calculated) 35(H) 20 - 30 mmol/L [facility] BE, art 9 mmol/L [facility] Comment: Interpretive Data No Reference Range Established Current Interpretive Data was last revised on 2017 O2 Sat Art (Measured) 98(H) 90 - 95 % [facility] Blood 09/08/2025 10:4 6 AM CDT 09/08/2025 11:02 AM CDT us Bouchra Dueñas MD LAB BLOOD ORDERABLES Final Result [facility] Department [place] [address] * XR Chest 1 View (09/08/2025 9:50 AM CDT) Anatomical Region Laterality Modality Body, Chest N/A Computed Radiogr aphy 09/08/2025 6:16 PM CDT Impressions 09/08/2025 6:16 PM CDT Comparison is made to prior study of 09/03/2025 at 2:36 PM. In the interval, no change in findings of median sternotomy with left atrial appendage clip. 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 The heart size is moderately enlarged. Bilateral small pleural effusions are seen with basilar atelectasis. There is no pulmonary edema or pneumonia. Electronically signed by: Lincoln Garibay M.D. Narrative 09/08/2025 6:16 PM CDT EXAMINATION: 1 view chest radiograph Procedure Note Lincoln Garibay MD - 09/08/2025 EXAMINATION: 1 view chest radiograph IMPRESSION: Comparison is made to prior study of 09/03/2025 at 2:36 PM. In the interval, no change in findings of median sternotomy with left atrial appendage clip. 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 The heart size is moderately enlarged. Bilateral small pleural effusions are seen with basilar atelectasis. There is no pulmonary edema or pneumonia. Electronically signed by: Lincoln Garibay M.D. Bouchra Dueñas MD IMG XR PRO CEDURES Final Result * POCT glucose (09/08/2025 6:16 AM CDT) Glucose, POC 141 70 - 199 mg/dL Blood 09/08/2025 6:16 AM CDT 09/08/2025 6:16 AM CDT Bouchra Dueñas MD LAB POCT O RDERABLES - DEVICE Final Result Performing Organization Address [facility] de Phone Number [facility] Department [place] [address] * POCT glucose (09/07/2025 8:15 PM CDT) Glucose, POC 169 70 - 199 mg/dL Blood 09/07/2025 8:15 PM CDT 09/07/2025 8:15 PM CDT Bouchra Dueñas MD LAB POCT O RDERABLES - DEVICE Final Result Performing Organization Address [facility] de Phone Number [facility] Department [place] [address] * POCT glucose (09/07/2025 4:33 PM CDT) Glucose, POC 131 70 - 199 mg/dL Blood 09/07/2025 4:33 PM CDT 09/07/2025 4:33 PM CDT Bouchra Dueñas MD LAB POCT O RDERABLES - DEVICE Final Result Performing Organization Address [facility] Co de Phone Number [facility] [employer] [place] [address] * POCT glucose (09/07/2025 11:52 AM CDT) Glucose, POC 160 70 - 199 mg/dL Blood 09/07/2025 11:5 2 AM CDT 09/07/2025 11:52 AM CDT us Bouchra Dueñas MD LAB POCT O RDERABLES - DEVICE Final Result Performing Organization Address City/[facility] [place] [address] * POCT glucose (09/07/2025 7:25 AM CDT) Glucose, POC 165 70 - 199 mg/dL Blood 09/07/2025 7:25 AM CDT 09/07/2025 7:25 AM CDT us Bouchra Dueñas MD LAB POCT O RDERABLES - DEVICE Final Result Performing Organization Address City/[facility]/ZIP Co de Phone Number [facility] [employer] [place] [address] * POCT glucose (09/06/2025 7:46 PM CDT) Glucose, POC 174 70 - 199 mg/dL Blood 09/06/2025 7:46 PM CDT 09/06/2025 7:46 PM CDT us Bouchra Dueñas MD LAB POCT O RDERABLES - DEVICE Final Result Performing Organization Address City/[facility]/ZIP Co de Phone Number [facility] [place] [address] * POCT glucose (09/06/2025 4:23 PM CDT) Glucose, POC 147 70 - 199 mg/dL Blood 09/06/2025 4:23 PM CDT 09/06/2025 4:23 PM CDT Bouchra Dueñas MD LAB POCT O RDERABLES - DEVICE Final Result Performing Organization Address [facility] de Phone Number [facility] Department [place] [address] * (ABNORMAL) Blood gas, arterial (09/06/2025 2:21 PM CDT) [facility] pH, Art 7.44 7.35 - 7.45 PCO2, Arterial 55(H) 35 - 45 mmHg [facility] PO2, Arterial 119(H) 83 - 108 mmHg [facility] HCO3 Art (Calculated) 37(H) 20 - 30 mmol/L [facility] BE, art 11 mmol/L [facility] Comment: Interpretive Data No Reference Range Established Current Interpretive Data was last revised on 2017 O2 Sat Art (Measured) 99(H) 90 - 95 % [facility] Blood 09/06/2025 2:21 PM CDT 09/06/2025 2:31 PM CDT Bouchra Dueñas MD LAB BLOOD ORDERABLES Final Result Performing Organization Address [facility] de Phone Number [facility] Department [place] [address] * POCT glucose (09/06/2025 2:15 PM CDT) Glucose, POC 145 70 - 199 mg/dL Blood 09/06/2025 2:15 PM CDT 09/06/2025 2:15 PM CDT Bouchra Dueñas MD LAB POCT O RDERABLES - [place]ICE [place] [address] * POCT glucose (09/06/2025 11:14 AM CDT) Glucose, POC 158 70 - 199 mg/dL Blood 09/06/2025 11:1 4 AM CDT 09/06/2025 11:14 AM CDT Bouchra Dueñas MD LAB POCT O RDERABLES - DEVICE Final Result Performing Organization Address City/[facility] Co de Phone Number DAMIAN [facility] [place] [address] * POCT glucose (09/06/2025 8:30 AM CDT) Glucose, POC 128 70 - 199 mg/dL Blood 09/06/2025 8:30 AM CDT 09/06/2025 8:30 AM CDT Bouchra Dueñas MD LAB POCT O RDERABLES - DEVICE Final Result Performing Organization Address City/[facility] Co de Phone Number DAMIAN [facility] [place] [address] * TRANSTHORACIC ECHO (TTE) COMPLETE W DOPPLER/CF W CONTRAST (09/06/2025 8:16 AM CDT) EF Mod BP 52 % CONS SCIMAGE Anatomical Region Laterality Modality Ultrasound 09/06/2025 7:19 AM CDT Narrative 09/06/2025 11:46 AM CDT [facility] [place] [address] Transthoracic Echocardiographic Report Patient Name: SHERICE ARMAS H : 1945 (80y 5m) Sex: M Study Date: 09/06/2025 07:19:27 AM Ht(Inch): 66 Wt(Lb): 307.1 BSA: 2.4 Algebraist: Yajaira Damon RDCS Location: [id number] Order Provider: GENE WALTER Heart Rate: 58 BMI: 49.56 BP: 124 / 48 Ref Provider: GENE WALTER Fellow: Aarti Ponce MD PROCEDURES: Echocardiographic Report: Transthoracic complete echo with strain imaging and contrast, 2D, spectral and tissue Doppler, color flow Doppler, M-mode. Contrast: Contrast Enhancement was Employed: After initial imaging due to sub- optimal quality related to co-morbidity defined by patient's body habitus and due to suboptimal image quality with inadequate visualization of at least 2 of 16 LV wall segments in any view after initial imaging. Perflutren contrast was administered using the volume necessary to obtain adequate images. 0.4 ml Optison Administered, (2.6 ml wasted). INDICATIONS: Shortness of Breath. CONCLUSIONS: 1. Normal left ventricular size based on volume index. Concentric LV hypertrophy. Normal left ventricular systolic function. The Ejection Fraction (Chicas's) is measured at 52 %. Grade III diastolic dysfunction (elevated LA pressure, restrictive physiology). 2. Right ventricular dilatation. Severe right ventricular hypokinesis with TV S' 0.06 m/s. 3. Moderate mitral annular calcification. Mild mitral valve regurgitation. 4. No aortic regurgitation seen (however mild AI is seen on recent AMNA 08/01/25). The mean transaortic gradient is 11 mmHg. Aortic valve dimensionless index is 0.67. 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 No paravalvular aortic regurgitation. 5. Normal pericardium without pericardial effusion. Left sided pleural effusion. 6. The estimated pulmonary artery systolic pressure is 46.0 mmHg. Estimated pulmonary artery systolic pressure is consistent with mild pulmonary hypertension (35- 50mmHg). 7. The IVC was >2.1 cm and collapsibility <50% (est. RA pressure 15 mmHg). COMPARISONS: Compared with AMNA 08/01/25, valvular function and BiV function appear similar. ATTESTATION: I have personally reviewed this study with a fellow in a teaching setting and attest to the findings and conclusions. Fellow that participated in the exam is Aarti Ponce MD. DISCLAIMER: The study images and the final report will be retained in the patient chart by the Echo Laboratory for the legally required time period. This chart constitutes the legal record of any testing performed. FINDINGS: Left Ventricle: Normal left ventricular size based on volume index. Concentric LV hypertrophy. Normal left ventricular systolic function. The Ejection Fraction (Chicas's) is measured at 52 %. Grade III diastolic dysfunction (elevated LA pressure, restrictive physiology). Right Ventricle: Right ventricular dilatation. Severe right ventricular hypokinesis with TV S' 0.06 m/s. Left Atrium: Severely dilated left atrium. Right Atrium: Right atrial dilatation. Mitral Valve: Moderate mitral annular calcification. Mild mitral valve regurgitation. The mitral regurgitation jet is eccentric and directed posteriorly. The mean transmitral gradient is: 1 mmHg. Aortic Valve: No aortic regurgitation seen (however mild AI is seen on recent AMNA 08/01/25). The mean transaortic gradient is 11 mmHg. Aortic valve dimensionless index is 0.67. 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 The aortic valve prosthesis appears well seated. No paravalvular aortic regurgitation. The aortic prosthesis demonstrates normal transvalvular gradient for valve type and size. Tricuspid Valve: Normal tricuspid valve structure. Mild tricuspid regurgitation. No tricuspid valve stenosis. Pulmonic Valve: Normal pulmonic valve structure. Mild pulmonic regurgitation. No pulmonic valve stenosis present. Pericardium: Normal pericardium without pericardial effusion. Left sided pleural effusion. Aorta: Mild aortic root dilation at sinuses of Valsalva. The ascending aorta is normal in size when indexed. IVC: The IVC was >2.1 cm and collapsibility <50% (est. RA pressure 15 mmHg). The estimated RA pressure is 15 mmHg. PASP: The estimated pulmonary artery systolic pressure is 46.0 mmHg. Estimated pulmonary artery systolic pressure is consistent with mild pulmonary hypertension (35- 50mmHg). Rhythm: The rhythm during the study was sinus bradycardia. MEASUREMENTS: 2D/MM Value Range Doppler Value Range LVIDd 2D 5.2 cm [ 4.2 - 5.8 ] AV Peak Mark 2.2 m/s [ 1.0 - 1.7 ] LVIDs 2D 3.7 cm [ 2.5 - 4.0 ] AV Peak PG 19 mmHg IVSd 2D 1.5 cm [ 0.6 - 1.0 ] AV Mean PG 11 mmHg LVPWd 2D 1.5 cm [ 0.6 - 1.0 ] AV VTI 49 cm LV Thickness Ratio 1.0 LVOT Peak Mark 1.4 m/s [ 0.7 - 1.1 ] LV FS 2D 29.33 % [ 25.00 - 43.00 ] LVOT Peak PG 8 mmHg LV Mass 2D 346.85 g LVOT Mean PG 4 mmHg LV Mass Index 2D 144.52 g/m2 LVOT VTI 33 cm RWT 0.58 LVOT Diam 2.2 cm EDV Mod BP 169 ml [ 62 - 150 ] CLARENCE VTI 2.6 cm2 LV EDV Index 70 ml/m2 LVOT/AV VTI 0.67 - Dimensionless index (DVI) ESV Mod BP 81 ml [ 21 - 61 ] MV E Peak Mark 1.40 m/s [ 0.60 - 1.30 ] EF Mod BP 52 % [ 52 - 72 ] MV A Peak Mark 0.56 m/s [ 1.00 - 1.20 ] LA Length 4C 7.8 cm MV E/A 2.5 ratio [ 0.8 - 1.5 ] LA Length 2C 6.9 cm MV Peak Mark 0.8 m/s LA Volume BP 116 ml MV Peak PG 3 mmHg LA Volume Index 48 ml/m2 [ 16 - 34 ] MV Mean PG 1 mmHg MV Annulus 2D 3.0 cm MV VTI 18 cm RV Base Dimen 2D 4.4 cm [ 2.5 - 4.2 ] MV Decel [place] 784 RV Mid Dimen 2D 2.9 cm MV Decel Time 179 msec [ 104 - 258 ] TAPSE 0.8 cm [ 1.7 - 5.0 ] Med E` Mark 8.2 cm/sec [ 8.0 - 25.0 ] RA Volume 97 ml Lat E` Mark 7.8 cm/sec [ 10.0 - 25.0 ] RA Volume Index 40 ml/m2 Average E/E` 18 IVC Diam 3.0 cm MR Peak Mark 5.2 m/s IVC Collapse 13.5 % MR Peak PG 108 mmHg AoR Diam 2D 3.9 cm [ 3.1 - 3.7 ] MR VTI 173 cm Ao Root Index 1.6 cm/m2 [ 1.0 - 2.0 ] RV S` 6.0 cm/sec Asc Ao Diam 2D 3.4 cm TR Peak Mark 2.8 m/s [ 1.0 - 2.8 ] Asc Ao Index 1.4 cm/m2 TR Peak PG 31 mmHg TV Annulus 2D 4.2 cm RA Pressure 15 mmHg RVSP 46 mmHg PV Peak Mark 1.1 m/s [ 0.4 - 0.8 ] PV Peak PG 5 mmHg PI ED Mark 87.2 m/sec Electronically Signed By: Sebastian Gresham [facility] 09/06/2025 11:45:48 AM CDT Procedure Note Sebastian Gresham MD - 09/06/2025 [facility] Cardiac [place] [address] Transthoracic Echocardiographic Report Patient Name: SHERICE ARMAS H : 1945 (80y 5m) Sex: M Study Date: 09/06/2025 07:19:27 AM Ht(Inch): 66 Wt(Lb): 307.1 BSA: 2.4 Algebraist: Yajaira Damon RDCS Location: [id number] Order Provider:GENE WALTER Heart Rate: 58 BMI: 49.56 BP: 124 / 48 Ref Provider: GENE WALTER Fellow: Aarti Ponce MD PROCEDURES: Echocardiographic Report: Transthoracic complete echo with strain imagingand contrast, 2D, spectral and tissue Doppler, color flow Doppler, M-mode. Contrast: Contrast Enhancement was Employed: After initial imaging due tosub- optimal quality related to co-morbidity defined by patient's body habitus and dueto suboptimal image quality with inadequate visualization of at least 2 of 16 LV wallsegments in any view after initial imaging. Perflutren contrast was administered using thevolume necessary to obtain adequate images. 0.4 ml Optison Administered, (2.6 mlwasted). INDICATIONS: Shortness of Breath. CONCLUSIONS: 1. Normal left ventricular size based on volume index. Concentric LVhypertrophy. Normal left ventricular systolic function. The Ejection Fraction (Chicas's) ismeasured at 52 %. Grade III diastolic dysfunction (elevated LA pressure, restrictivephysiology). 2. Right ventricular dilatation. Severe right ventricular hypokinesis withTV S' 0.06 m/s. 3. Moderate mitral annular calcification. Mild mitral valveregurgitation. 4. No aortic regurgitation seen (however mild AI is seen on recent TEE08/01/25). The mean transaortic gradient is 11 mmHg. Aortic valve dimensionless index is 0.67.A bioprosthetic valve is present in the aortic position. No paravalvularaortic regurgitation. 5. Normal pericardium without pericardial effusion. Left sided pleuraleffusion. 6. The estimated pulmonary artery systolic pressure is 46.0 mmHg.Estimated pulmonary artery systolic pressure is consistent with mild pulmonary hypertension(35- 50mmHg). 7. The IVC was >2.1 cm and collapsibility <50% (est. RA pressure 15mmHg). COMPARISONS: Compared with AMNA 08/01/25, valvular function and BiV function appearsimilar. ATTESTATION: I have personally reviewed this study with a fellow in a teaching settingand attest to the findings and conclusions. Fellow that participated in the exam Obey Ponce MD. DISCLAIMER: The study images and the final report will be retained in the patientchart by the Echo Laboratory for the legally required time period. This chart constitutesthe legal record of any testing performed. FINDINGS: Left Ventricle: Normal left ventricular size based on volume index.Concentric LV hypertrophy. Normal left ventricular systolic function. The EjectionFraction (Chicas's) is measured at 52 %. Grade III diastolic dysfunction (elevated LApressure, restrictive physiology). Right Ventricle: Right ventricular dilatation. Severe right ventricularhypokinesis with TV S' 0.06 m/s. Left Atrium: Severely dilated left atrium. Right Atrium: Right atrial dilatation. Mitral Valve: Moderate mitral annular calcification. Mild mitral valveregurgitation. The mitral regurgitation jet is eccentric and directed posteriorly. The meantransmitral gradient is: 1 mmHg. Aortic Valve: No aortic regurgitation seen (however mild AI is seen onrecent AMNA 08/01/25). The mean transaortic gradient is 11 mmHg. Aortic valvedimensionless index is 0.67. 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 The aorticvalve prosthesis appears well seated. No paravalvular aortic regurgitation. Theaortic prosthesis demonstrates normal transvalvular gradient for valve type andsize. Tricuspid Valve: Normal tricuspid valve structure. Mild tricuspidregurgitation. No tricuspid valve stenosis. Pulmonic Valve: Normal pulmonic valve structure. Mild pulmonicregurgitation. No pulmonic valve stenosis present. Pericardium: Normal pericardium without pericardial effusion. Left sidedpleural effusion. Aorta: Mild aortic root dilation at sinuses of Valsalva. The ascendingaorta is normal in size when indexed. IVC: The IVC was >2.1 cm and collapsibility <50% (est. RA pressure 15mmHg). The estimated RA pressure is 15 mmHg. PASP: The estimated pulmonary artery systolic pressure is 46.0 mmHg.Estimated pulmonary artery systolic pressure is consistent with mild pulmonary hypertension(35- 50mmHg). Rhythm: The rhythm during the study was sinus bradycardia. MEASUREMENTS: 2D/MM Value Range DopplerValue Range LVIDd 2D 5.2 cm [ 4.2 - 5.8 ] AV Peak Vel2.2 m/s [ 1.0 - 1.7 ] LVIDs 2D 3.7 cm [ 2.5 - 4.0 ] AV Peak PG19 mmHg IVSd 2D 1.5 cm [ 0.6 - 1.0 ] AV Mean PG11 mmHg LVPWd 2D 1.5 cm [ 0.6 - 1.0 ] AV VTI49 cm LV Thickness Ratio 1.0 LVOT Peak Vel1.4 m/s [ 0.7 - 1.1 ] LV FS 2D 29.33 % [ 25.00 - 43.00 ] LVOT Peak PG8 mmHg LV Mass 2D 346.85 g LVOT Mean PG4 mmHg LV Mass Index 2D 144.52 g/m2 LVOT VTI33 cm RWT 0.58 LVOT Diam2.2 cm EDV Mod BP 169 ml [ 62 - 150 ] CLARENCE VTI2.6 cm2 LV EDV Index 70 ml/m2 LVOT/AV VTI0.67 - Dimensionless index (DVI) ESV Mod BP 81 ml [ 21 - 61 ] MV E Peak Vel1.40 m/s [ 0.60 - 1.30 ] EF Mod BP 52 % [ 52 - 72 ] MV A Peak Vel0.56 m/s [ 1.00 - 1.20 ] LA Length 4C 7.8 cm MV E/A2.5 ratio [ 0.8 - 1.5 ] LA Length 2C 6.9 cm MV Peak Vel0.8 m/s LA Volume BP 116 ml MV Peak PG3 mmHg LA Volume Index 48 ml/m2 [ 16 - 34 ] MV Mean PG1 mmHg MV Annulus 2D 3.0 cm MV VTI18 cm RV Base Dimen 2D 4.4 cm [ 2.5 - 4.2 ] MV Decel [id number] RV Mid Dimen 2D 2.9 cm MV Decel Idcy606 msec [ 104 - 258 ] TAPSE 0.8 cm [ 1.7 - 5.0 ] Med E` Vel8.2 cm/sec [ 8.0 - 25.0 ] RA Volume 97 ml Lat E` Vel7.8 cm/sec [ 10.0 - 25.0 ] RA Volume Index 40 ml/m2 Average E/E`18 IVC Diam 3.0 cm MR Peak Vel5.2 m/s IVC Collapse 13.5 % MR Peak PG108 mmHg AoR Diam 2D 3.9 cm [ 3.1 - 3.7 ] MR [id number] cm Ao Root Index 1.6 cm/m2 [ 1.0 - 2.0 ] RV S`6.0 cm/sec Asc Ao Diam 2D 3.4 cm TR Peak Vel2.8 m/s [ 1.0 - 2.8 ] Asc Ao Index 1.4 cm/m2 TR Peak PG31 mmHg TV Annulus 2D 4.2 cm RA Harhhrbo74 mmHg RVSP 46 mmHg PV Peak Mark 1.1 m/s [ 0.4 - 0.8 ] PV Peak PG 5 mmHg PI ED Mark 87.2 m/sec Electronically Signed By: Sebastian Gresham [facility] 09/06/2025 11:45:48 AM CDT Gene Walter MD CV ECHO PROCEDURE S Final Result * (ABNORMAL) eGFR (09/05/2025 10:44 PM CDT) eGFR 36(L) >=60 mL/min/1. 73 m2 Comment: Interpretive Data Reference Interval Normal >/= 90 mL/min/1.73m2 Mildly decreased* 60 - 89 mL/min/1.73m2 Mildly to moderately decreased 45 - 59 mL/min/1.73m2 Moderately to severely decreased 30 - 44 mL/min/1.73m2 Severely decreased 15 - 29 mL/min/1.73m2 Kidney Failure < 15 mL/min/1.73m2 *Relative to young adult level Estimated glomerular filtration rate is determined by the 2020 CKD-EPI equation recommended by the National Kidney Foundation (A Unifying Approach to GFR Estimation: Recommendations of the NKF-ASK Task Force on Reassessing the Inclusion of Race in Diagnosing Kidney Disease, JASN 202). The CKD-EPI equation should not be used for patients with unstable renal function and has not been validated in children and those over 70. Current interpretive data was last reviewed 2021. Blood 09/05/2025 10:4 4 PM CDT 09/06/2025 12:35 AM CDT us Sarah Garsia MD LAB BLOOD ORDERABLES Final Re sult [facility] Department [place] [address] * (ABNORMAL) Pro B-type natriuretic peptide (09/05/2025 10:44 PM CDT) NT-proBNP 2,247(H) <=450 pg/mL Comment: Interpretive Comments: A. Dyspnea in Acute Care Setting All Ages: < 300 pg/ml, acute heart failure unlikely. < 50 yrs: 300 - 450 pg/ml, further investigation warranted. > 450 pg/ml, acute heart failure likely. 50 - 74 yrs: 300 - 900 pg/ml, further investigation warranted. > 900 pg/ml, acute heart failure likely . > or = 75 yrs: 450 - 1800 pg/ml, further investigation warranted. > 1800 pg/ml, acute heart failure likely. B. Non-acute Setting < 75 yrs < 125 pg/ml, rules out heart failure. > or = 125 pg/ml, further investigation warranted. > or = 75 yrs < 450 pg/ml, rules out heart failure. > or = 450 pg/ml, further investigation warranted. - Knowledge of each individual patient's NT-proBNP range may be more useful than using similar cut-points for every patient. Please note that marked elevations in NT-proBNP levels may be observed in state other than Left Ventricular Congestive Failure, including: acute coronary syndromes, right heart strain/failure (including pulmonary embolism and cor pulmonale), critical illness, renal failure, as well as advanced age. - References: 1. [place] AGUILAR et.al. Eur Heart J. 2006:27:330-337. 2. Everardo RW, [place] AM. J. AM Michael Cardiol: Cardiovasc Imag. 2009;2: 216- 225. Interpretive Data Last Revised Date: 2018. Blood 09/05/2025 10:4 4 PM CDT 09/06/2025 12:35 AM CDT us Bouchra Dueñas MD LAB BLOOD ORDERABLES Final Result Performing Organization Address [facility]/ZIP Co de Phone Number [facility] [place] [address] * (ABNORMAL) CBC without differential (09/05/2025 10:44 PM CDT) WBC 5.09 3.80 - 9.90 K/cumm Hgb 8.0(L) 13.0 - 17.5 g/dL [facility] Hct 26.4(L) 38.9 - 50.3 % [facility] Plt 154 150 - 400 K/cumm [facility] MPV 10.2 9.1 - 12.3 fL [facility] RBC 3.10(L) 4.30 - 5.80 M/cumm [facility] MCV 85.2 81.3 - 96.4 fL [facility] MCH 25.8(L) 27.1 - 33.3 pg [facility] MCHC 30.3(L) 32.3 - 35.7 g/dL [facility] RDW CV 14.2 11.1 - 14.9 % [facility] RDW SD 44.4 35.7 - 48.1 fL [facility] NRBC abs 0.00 0.00 - 0.01 K/cumm [facility] Blood 09/05/2025 10:4 4 PM CDT 09/06/2025 12:36 AM CDT us Sarah Garsia MD LAB BLOOD ORDERABLES Final Re sult [facility] [employer] [place] [address] * Magnesium (09/05/2025 10:44 PM CDT) Magnesium 2.1 1.4 - 2.5 mg/dL Blood 09/05/2025 10:4 4 PM CDT 09/06/2025 12:35 AM CDT Sarah Garsia MD LAB BLOOD ORDERABLES Final Re sult Performing Organization Address City/[facility]/ZIP Co de Phone Number [facility] [place] [address] * (ABNORMAL) Basic metabolic panel (09/05/2025 10:44 PM CDT) [facility] Sodium 141 135 - 145 mmol/L Potassium, pl 3.6 3.3 - 4.9 mmol/L [facility] Chloride 98 97 - 110 mmol/L [facility] CO2 40(H) 22 - 32 mmol/L [facility] Anion gap 3 2 - 15 mmol/L [facility] BUN 37(H) 6 - 25 mg/dL [facility] Creatinine 1.84(H) 0.80 - 1.30 mg/dL [facility] Glucose 121 70 - 199 mg/dL [facility] Comment: Interpretive Data Fasting glucose >/= 126 mg/dl is diagnostic for diabetes. Fasting is defined as no caloric intake for at least 8 hours. Fasting glucose between 100 mg/dl to 125 mg/dl is diagnostic of prediabetes. In a patient with classic symptoms of hyperglycemia or hyperglycemic crisis, a random glucose >/= 200 mg/dl is diagnostic for diabetes. In the absence of unequivocal hyperglycemia, results should be confirmed by repeat testing. The classification and Diagnosis of Diabetes Diabetes Care 202; 46: S19-S40. Current interpretive data was last revised 2022. Calcium 9.6 8.5 - 10.3 mg/dL [facility] Blood 09/05/2025 10:4 4 PM CDT 09/06/2025 12:35 AM CDT Sarah Garsia MD LAB BLOOD ORDERABLES Final Re sult Performing Organization Address [facility]/ZIP Co de Phone Number [facility] Department [place] [address] * POCT glucose (09/05/2025 8:07 PM CDT) Glucose, POC 118 70 - 199 mg/dL Blood 09/05/2025 8:07 PM CDT 09/05/2025 8:07 PM CDT Gene Walter MD LAB POCT ORDERABL ES - DEVICE Final Result Performing Organization Address [facility] Co de Phone Number [facility] [employer] [place] [address] * POCT glucose (09/05/2025 4:28 PM CDT) [facility] Signature Glucose, POC 135 70 - 199 mg/dL Blood 09/05/2025 4:28 PM CDT 09/05/2025 4:28 PM CDT Gene Walter MD LAB POCT ORDERABL ES - DEVICE Final Result Performing Organization Address [facility] Co de Phone Number [facility] [employer] [place] [address] * POCT glucose (09/05/2025 11:56 AM CDT) [facility] Glucose, POC 139 70 - 199 mg/dL Blood 09/05/2025 11:5 6 AM CDT 09/05/2025 11:56 AM CDT Result [facility] Gene Walter MD LAB POCT ORDERABL ES - DEVICE Final Result Performing Organization Address [facility] de Phone Number [facility] [employer] [place] [address] * (ABNORMAL) Blood gas, arterial (09/05/2025 11:15 AM CDT) [facility] pH, Art 7.43 7.35 - 7.45 PCO2, Arterial 62(H) 35 - 45 mmHg [facility] PO2, Arterial 111(H) 83 - 108 mmHg [facility] HCO3 Art (Calculated) 40(H) 20 - 30 mmol/L [facility] BE, art 14 mmol/L [facility] Comment: Interpretive Data No Reference Range Established Current Interpretive Data was last revised on 2017 O2 Sat Art (Measured) 98(H) 90 - 95 % [facility] Blood 09/05/2025 11:1 5 AM CDT 09/05/2025 11:23 AM CDT us Gene Walter MD LAB BLOOD ORDERAB LES Final Result [facility] Department [place] [address] * POCT glucose (09/05/2025 8:04 AM CDT) Glucose, POC 152 70 - 199 mg/dL Blood 09/05/2025 8:04 AM CDT 09/05/2025 8:04 AM CDT Gene Walter MD LAB POCT ORDERABL ES - DEVICE Final Result Performing Organization Address City/[facility]/ZIP Co de Phone Number [facility] Department [place] [address] * (ABNORMAL) eGFR (09/04/2025 9:03 PM CDT) eGFR 35(L) >=60 mL/min/1. 73 m2 Comment: Interpretive Data Reference Interval Normal >/= 90 mL/min/1.73m2 Mildly decreased* 60 - 89 mL/min/1.73m2 Mildly to moderately decreased 45 - 59 mL/min/1.73m2 Moderately to severely decreased 30 - 44 mL/min/1.73m2 Severely decreased 15 - 29 mL/min/1.73m2 Kidney Failure < 15 mL/min/1.73m2 *Relative to young adult level Estimated glomerular filtration rate is determined by the 2020 CKD-EPI equation recommended by the National Kidney Foundation (A Unifying Approach to GFR Estimation: Recommendations of the NKF-ASK Task Force on Reassessing the Inclusion of Race in Diagnosing Kidney Disease, JASN 2020). The CKD-EPI equation should not be used for patients with unstable renal function and has not been validated in children and those over 70. Current interpretive data was last reviewed 2021. Blood 09/04/2025 9:03 PM CDT 09/04/2025 9:17 PM CDT us Gene Walter MD LAB BLOOD ORDERAB LES Final Result [facility] Department [place] [address] * (ABNORMAL) CBC without differential (09/04/2025 9:03 PM CDT) WBC 4.35 3.80 - 9.90 K/cumm Hgb 8.1(L) 13.0 - 17.5 g/dL [facility] Hct 27.3(L) 38.9 - 50.3 % [facility] Plt 156 150 - 400 K/cumm [facility] MPV 9.9 9.1 - 12.3 fL [facility] RBC 3.12(L) 4.30 - 5.80 M/cumm [facility] MCV 87.5 81.3 - 96.4 fL [facility] MCH 26.0(L) 27.1 - 33.3 pg [facility] MCHC 29.7(L) 32.3 - 35.7 g/dL [facility] RDW CV 14.2 11.1 - 14.9 % [facility] RDW SD 45.3 35.7 - 48.1 fL [facility] NRBC abs 0.00 0.00 - 0.01 K/cumm [facility] Blood 09/04/2025 9:03 PM CDT 09/04/2025 9:17 PM CDT Gene Walter MD LAB BLOOD ORDERAB LES Final Result [facility] Department [place] [address] * (ABNORMAL) Comprehensive metabolic panel (09/04/2025 9:03 PM CDT) Sodium 143 135 - 145 mmol/L Potassium, pl 4.0 3.3 - 4.9 mmol/L [facility] Chloride 95(L) 97 - 110 mmol/L [facility] CO2 40(H) 22 - 32 mmol/L [facility] Anion gap 8 2 - 15 mmol/L [facility] BUN 39(H) 6 - 25 mg/dL [facility] Creatinine 1.91(H) 0.80 - 1.30 mg/dL [facility] Glucose 142 70 - 199 mg/dL [facility] Comment: Interpretive Data Fasting glucose >/= 126 mg/dl is diagnostic for diabetes. Fasting is defined as no caloric intake for at least 8 hours. Fasting glucose between 100 mg/dl to 125 mg/dl is diagnostic of prediabetes. In a patient with classic symptoms of hyperglycemia or hyperglycemic crisis, a random glucose >/= 200 mg/dl is diagnostic for diabetes. In the absence of unequivocal hyperglycemia, results should be confirmed by repeat testing. The classification and Diagnosis of Diabetes Diabetes Care 202; 46: S19-S40. Current interpretive data was last revised 2022. Calcium 8.9 8.5 - 10.3 mg/dL [facility] Bilirubin, total 0.3 0.1 - 1.2 mg/dL [facility] Protein, pl 7.5 6.5 - 8.5 g/dL [facility] Albumin 4.0 3.5 - 5.0 g/dL [facility] Alk phos 30(L) 40 - 130 Units/L [facility] ALT 18 7 - 55 Units/L [facility] AST 25 10 - 50 Units/L [facility] Blood 09/04/2025 9:03 PM CDT 09/04/2025 9:17 PM CDT us Gene Walter MD LAB BLOOD ORDERAB LES Final Result DAMIAN [facility] [employer] [place] [address] * POCT glucose (09/04/2025 8:49 PM CDT) Glucose, POC 161 70 - 199 mg/dL Blood 09/04/2025 8:49 PM CDT 09/04/2025 8:49 PM CDT us Gene Walter MD LAB POCT ORDERABL ES - DEVICE Final Result Performing Organization Address [facility] Co de Phone Number [facility] [employer] [place] [address] * POCT glucose (09/04/2025 6:21 PM CDT) Glucose, POC 185 70 - 199 mg/dL Blood 09/04/2025 6:21 PM CDT 09/04/2025 6:21 PM CDT us Gene Walter MD LAB POCT ORDERABL ES - DEVICE Final Result Performing Organization Address City/[facility] Co de Phone Number [facility] [place] [address] * Critical Result Callback Chemistry (09/04/2025 1:10 PM CDT) Date Notified [id number] Time Notified 1323 DAMIAN SHEPARD TestName pCO2 Hunter SHEPARD Called/Read Back Evan SHEPARD Credentials DONA WELLS Called By ashly WELLS Blood 09/04/2025 1:10 PM CDT 09/04/2025 1:16 PM CDT us Gene Walter MD LAB BLOOD ORDERAB LES Final Result Performing Organization Address [facility] Co de Phone Number [facility] of [employer] [place] [address] * (ABNORMAL) Blood gas, venous (09/04/2025 1:10 PM CDT) pH, Venous 7.33 7.32 - 7.43 PCO2, Venous 78(C) 40 - 50 mmHg [facility] PO2, Venous 41 mmHg [facility] Comment: Interpretive Data No Reference Range Established Current Interpretive Data was last revised on 2018. HCO3 Venous, Calculated 40(H) 20 - 30 mmol/L [facility] BE, venous 13 mmol/L [facility] Comment: Interpretive Data No Reference Range Established Current Interpretive Data was last revised on 2018. Blood 09/04/2025 1:10 PM CDT 09/04/2025 1:16 PM CDT us Gene Walter MD LAB BLOOD ORDERAB LES Final Result Performing Organization Address [facility] Co de Phone Number [facility] [employer] [place] [address] * POCT glucose (09/04/2025 11:08 AM CDT) [facility] Glucose, POC 80 70 - 199 mg/dL Blood 09/04/2025 11:0 8 AM CDT 09/04/2025 11:08 AM CDT Gene Walter MD LAB POCT ORDERABL ES - DEVICE Final Result Performing Organization Address [facility] Co de Phone Number [facility] [employer] [place] [address] * (ABNORMAL) eGFR (09/04/2025 11:07 AM CDT) Pathologist [facility] eGFR 39(L) >=60 mL/min/1. 73 m2 Comment: Interpretive Data Reference Interval Normal >/= 90 mL/min/1.73m2 Mildly decreased* 60 - 89 mL/min/1.73m2 Mildly to moderately decreased 45 - 59 mL/min/1.73m2 Moderately to severely decreased 30 - 44 mL/min/1.73m2 Severely decreased 15 - 29 mL/min/1.73m2 Kidney Failure < 15 mL/min/1.73m2 *Relative to young adult level Estimated glomerular filtration rate is determined by the 2020 CKD-EPI equation recommended by the National Kidney Foundation (A Unifying Approach to GFR Estimation: Recommendations of the NKF-ASK Task Force on Reassessing the Inclusion of Race in Diagnosing Kidney Disease, JASN 2020). The CKD-EPI equation should not be used for patients with unstable renal function and has not been validated in children and those over 70. Current interpretive data was last reviewed 2021. Blood 09/04/2025 11:0 7 AM CDT 09/04/2025 11:30 AM CDT us Gene Walter MD LAB BLOOD ORDERAB LES Final Result DAMIAN [facility] of [employer]™ [place] [address] * Magnesium (09/04/2025 11:07 AM CDT) Magnesium 2.2 1.4 - 2.5 mg/dL Blood 09/04/2025 11:0 7 AM CDT 09/04/2025 11:30 AM CDT Gene Walter MD LAB BLOOD ORDERAB LES Final Result DAMIAN [facility] Department of [employer]™ [place] [address] * (ABNORMAL) Basic metabolic panel (09/04/2025 11:07 AM CDT) Sodium 144 135 - 145 mmol/L Potassium, pl 3.5 3.3 - 4.9 mmol/L [facility] Chloride 98 97 - 110 mmol/L [facility] CO2 37(H) 22 - 32 mmol/L [facility] Anion gap 9 2 - 15 mmol/L [facility] BUN 35(H) 6 - 25 mg/dL [facility] Creatinine 1.72(H) 0.80 - 1.30 mg/dL [facility] Glucose 75 70 - 199 mg/dL [facility] Comment: Interpretive Data Fasting glucose >/= 126 mg/dl is diagnostic for diabetes. Fasting is defined as no caloric intake for at least 8 hours. Fasting glucose between 100 mg/dl to 125 mg/dl is diagnostic of prediabetes. In a patient with classic symptoms of hyperglycemia or hyperglycemic crisis, a random glucose >/= 200 mg/dl is diagnostic for diabetes. In the absence of unequivocal hyperglycemia, results should be confirmed by repeat testing. The classification and Diagnosis of Diabetes Diabetes Care 2021; 46: S19-S40. Current interpretive data was last revised 2022. Calcium 8.6 8.5 - 10.3 mg/dL [facility] Blood 09/04/2025 11:0 7 AM CDT 09/04/2025 11:30 AM CDT Gene Walter MD LAB BLOOD ORDERAB LES Final Result [facility] Department [place] [address] * (ABNORMAL) Blood gas, venous (09/04/2025 8:32 AM CDT) pH, Venous 7.41 7.32 - 7.43 PCO2, Venous 68(H) 40 - 50 mmHg [facility] PO2, Venous 43 mmHg [facility] Comment: Interpretive Data No Reference Range Established Current Interpretive Data was last revised on 2018. HCO3 Venous, Calculated 42(H) 20 - 30 mmol/L [facility] BE, venous 15 mmol/L [facility] Comment: Interpretive Data No Reference Range Established Current Interpretive Data was last revised on 2018. Blood 09/04/2025 8:32 AM CDT 09/04/2025 8:38 AM CDT us Gene Walter MD LAB BLOOD ORDERAB LES Final Result Performing Organization Address [facility] Co de Phone Number [facility] [place] [address] * POCT glucose (09/04/2025 7:54 AM CDT) Glucose, POC 80 70 - 199 mg/dL Blood 09/04/2025 7:54 AM CDT 09/04/2025 7:54 AM CDT Gene Walter MD LAB POCT ORDERABL ES - DEVICE Final Result Performing Organization Address [facility] de Phone Number [facility] [place] [address] * (ABNORMAL) Blood gas, venous (09/04/2025 5:32 AM CDT) pH, Venous 7.39 7.32 - 7.43 PCO2, Venous 70(H) 40 - 50 mmHg [facility] PO2, Venous 33 mmHg [facility] Comment: Interpretive Data No Reference Range Established Current Interpretive Data was last revised on 2018. HCO3 Venous, Calculated 41(H) 20 - 30 mmol/L [facility] BE, venous 15 mmol/L [facility] Comment: Interpretive Data No Reference Range Established Current Interpretive Data was last revised on 2018. Blood 09/04/2025 5:32 AM CDT 09/04/2025 5:51 AM CDT Gene Walter MD LAB BLOOD ORDERAB LES Final Result Performing Organization Address [facility] Co de Phone Number [facility] [place] [address] * POCT glucose (09/04/2025 4:19 AM CDT) Glucose, POC 77 70 - 199 mg/dL Blood 09/04/2025 4:19 AM CDT 09/04/2025 4:19 AM CDT Gene Walter MD LAB POCT ORDERABL ES - DEVICE Final Result Performing Organization Address City/[facility]/ZIP Co de Phone Number [facility] [place] [address] * Critical Result Callback Chemistry (09/03/2025 11:27 PM CDT) Date Notified [id number] Time Notified 2351 DAMIAN [facility] TestName pCO2 Hunter DAMIAN [facility] Called/Read Back Trish SALGADO [facility] Credentials RN DAMIAN [facility] Called By GABY SALGADO [facility] Blood 09/03/2025 11:2 7 PM CDT 09/03/2025 11:35 PM CDT Gene Walter MD LAB BLOOD ORDERAB LES Final Result Performing Organization Address City/[facility]/ZIP Co de Phone Number [facility] [place] [address] * (ABNORMAL) Blood gas, venous (09/03/2025 11:27 PM CDT) pH, Venous 7.34 7.32 - 7.43 PCO2, Venous 75(C) 40 - 50 mmHg DAMIAN [facility] PO2, Venous 46 mmHg [facility] Comment: Interpretive Data No Reference Range Established Current Interpretive Data was last revised on 2018. HCO3 Venous, Calculated 39(H) 20 - 30 mmol/L [facility]IAN [facility] BE, venous 12 mmol/L [facility] Comment: Interpretive Data No Reference Range Established Current Interpretive Data was last revised on 2018. Blood 09/03/2025 11:2 7 PM CDT 09/03/2025 11:35 PM CDT Gene Walter MD LAB BLOOD ORDERAB LES Final Result Performing Organization Address [facility]/ZIP Co de Phone Number [facility] Department [place] [address] * POCT glucose (09/03/2025 11:20 PM CDT) Pathologist [facility] Glucose, POC 79 70 - 199 mg/dL Blood 09/03/2025 11:2 0 PM CDT 09/03/2025 11:20 PM CDT Gene Walter MD LAB POCT ORDERABL ES - DEVICE Final Result Performing Organization Address City/[facility] de Phone Number [facility] [place] [address] * Differential, auto (09/03/2025 10:14 PM CDT) [facility] Neutrophil abs 2.62 1.50 - 6.50 K/cumm Imm gran abs 0.02 0.00 - 0.10 K/cumm [facility] Lymphocyte abs 0.80 0.80 - 3.30 K/cumm [facility] Monocyte abs 0.44 0.20 - 0.80 K/cumm [facility] Eosinophil abs 0.15 0.00 - 0.50 K/cumm [facility] Basophil abs 0.01 0.00 - 0.10 K/cumm [facility] Neutrophil pct 64.9 % [facility] Comment: Interpretive Data Percent cell count reference ranges are not reported, since discordance with absolute values may lead to misinterpretation of CBC data. Current Interpretive Data was last revised on 2018. Imm gran pct 0.5 % [facility] Comment: Interpretive Data Percent cell count reference ranges are not reported, since discordance with absolute values may lead to misinterpretation of CBC data. Current Interpretive Data was last revised on 2018. Lymphocyte pct 19.8 % [facility] Comment: Interpretive Data Percent cell count reference ranges are not reported, since discordance with absolute values may lead to misinterpretation of CBC data. Current Interpretive Data was last revised on 2018. Monocyte pct 10.9 % [facility] Comment: Interpretive Data Percent cell count reference ranges are not reported, since discordance with absolute values may lead to misinterpretation of CBC data. Current Interpretive Data was last revised on 2018. Eosinophil pct 3.7 % [facility] Comment: Interpretive Data Percent cell count reference ranges are not reported, since discordance with absolute values may lead to misinterpretation of CBC data. Current Interpretive Data was last revised on 2018. Basophil pct 0.2 % [facility] Comment: Interpretive Data Percent cell count reference ranges are not reported, since discordance with absolute values may lead to misinterpretation of CBC data. Current Interpretive Data was last revised on 2018. Blood 09/03/2025 10:1 4 PM CDT 09/03/2025 10:28 PM CDT us Braden Christie MD LAB BLOOD ORDERABLES Final Re sult [facility] Department [place] [address] * (ABNORMAL) CBC with auto differential (09/03/2025 10:14 PM CDT) WBC 4.04 3.80 - 9.90 K/cumm Hgb 8.3(L) 13.0 - 17.5 g/dL [facility] Hct 27.9(L) 38.9 - 50.3 % [facility] Plt 135(L) 150 - 400 K/cumm [facility] MPV 10.0 9.1 - 12.3 fL [facility] RBC 3.17(L) 4.30 - 5.80 M/cumm [facility] MCV 88.0 81.3 - 96.4 fL [facility] MCH 26.2(L) 27.1 - 33.3 pg [facility] MCHC 29.7(L) 32.3 - 35.7 g/dL [facility] RDW CV 14.2 11.1 - 14.9 % [facility] RDW SD 45.4 35.7 - 48.1 fL [facility] NRBC abs 0.00 0.00 - 0.01 K/cumm [facility] Blood 09/03/2025 10:1 4 PM CDT 09/03/2025 10:28 PM CDT us Braden Christie MD LAB BLOOD ORDERABLES Final Re sult Performing Organization Address [facility] Co de Phone Number [facility] Department [place] [address] * (ABNORMAL) Blood gas, venous (09/03/2025 10:14 PM CDT) pH, Venous 7.37 7.32 - 7.43 PCO2, Venous 68(H) 40 - 50 mmHg [facility] PO2, Venous 66 mmHg [facility] Comment: Interpretive Data No Reference Range Established Current Interpretive Data was last revised on 2018. HCO3 Venous, Calculated 39(H) 20 - 30 mmol/L [facility] BE, venous 12 mmol/L [facility] Comment: Interpretive Data No Reference Range Established Current Interpretive Data was last revised on 2018. Blood 09/03/2025 10:1 4 PM CDT 09/03/2025 10:23 PM CDT us Gene Walter MD LAB BLOOD ORDERAB LES Final Result Performing Organization Address [facility] Co de Phone Number [facility] Department [place] [address] * (ABNORMAL) eGFR (09/03/2025 10:13 PM CDT) eGFR 37(L) >=60 mL/min/1. 73 m2 Comment: Interpretive Data Reference Interval Normal >/= 90 mL/min/1.73m2 Mildly decreased* 60 - 89 mL/min/1.73m2 Mildly to moderately decreased 45 - 59 mL/min/1.73m2 Moderately to severely decreased 30 - 44 mL/min/1.73m2 Severely decreased 15 - 29 mL/min/1.73m2 Kidney Failure < 15 mL/min/1.73m2 *Relative to young adult level Estimated glomerular filtration rate is determined by the 2020 CKD-EPI equation recommended by the National Kidney Foundation (A Unifying Approach to GFR Estimation: Recommendations of the NKF-ASK Task Force on Reassessing the Inclusion of Race in Diagnosing Kidney Disease, JASN 2020). The CKD-EPI equation should not be used for patients with unstable renal function and has not been validated in children and those over 70. Current interpretive data was last reviewed 2021. Blood 09/03/2025 10:1 3 PM CDT 09/03/2025 10:28 PM CDT us Braden Christie MD LAB BLOOD ORDERABLES Final Re sult DAMIAN [facility] Department [place] [address] * (ABNORMAL) Pro B-type natriuretic peptide (09/03/2025 10:13 PM CDT) NT-proBNP 2,266(H) <=450 pg/mL Comment: Interpretive Comments: A. Dyspnea in Acute Care Setting All Ages: < 300 pg/ml, acute heart failure unlikely. < 50 yrs: 300 - 450 pg/ml, further investigation warranted. > 450 pg/ml, acute heart failure likely. 50 - 74 yrs: 300 - 900 pg/ml, further investigation warranted. > 900 pg/ml, acute heart failure likely . > or = 75 yrs: 450 - 1800 pg/ml, further investigation warranted. > 1800 pg/ml, acute heart failure likely. B. Non-acute Setting < 75 yrs < 125 pg/ml, rules out heart failure. > or = 125 pg/ml, further investigation warranted. > or = 75 yrs < 450 pg/ml, rules out heart failure. > or = 450 pg/ml, further investigation warranted. - Knowledge of each individual patient's NT-proBNP range may be more useful than using similar cut-points for every patient. Please note that marked elevations in NT-proBNP levels may be observed in state other than Left Ventricular Congestive Failure, including: acute coronary syndromes, right heart strain/failure (including pulmonary embolism and cor pulmonale), critical illness, renal failure, as well as advanced age. - References: 1. [facility] AGUILAR et.al. Eur Heart J. 2006:27:330-337. 2. Everardo RW, [place] AM. J. AM Michael Cardiol: Cardiovasc Imag. 2009;2: 216- 225. Interpretive Data Last Revised Date: 2018. Blood 09/03/2025 10:1 3 PM CDT 09/03/2025 10:28 PM CDT us Gene Walter MD LAB BLOOD ORDERAB LES Final Result Performing Organization Address [facility]/ZIP Co de Phone Number DAMIAN [facility] Department of [employer] [place] [address] * (ABNORMAL) Thyroid Function [place] (09/03/2025 10:13 PM CDT) TSH 6.19(H) 0.30 - 4.20 mcIUnit/mL Blood 09/03/2025 10:1 3 PM CDT 09/03/2025 10:28 PM CDT us Mami Garzon MD LAB BLOOD ORDERABLES Final Re sult Performing Organization Address City/[facility]/ZIP Co de Phone Number [facility] Department [place] [address] * (ABNORMAL) Iron profile w/ IBC (09/03/2025 10:13 PM CDT) Iron 31(L) 50 - 150 mcg/dL TIBC 386 250 - 400 mcg/dL [facility] Transferrin saturation 8(L) 20 - 50 % [facility] Blood 09/03/2025 10:1 3 PM CDT 09/03/2025 10:28 PM CDT Mami Garzon MD LAB BLOOD ORDERABLES Final Re sult Performing Organization Address [facility]/ZIP Co de Phone Number [facility] [employer] [place] [address] * Type and screen (09/03/2025 10:13 PM CDT) ABO Rh O Positive Cedric, indirect Negative [facility] Blood 09/03/2025 10:1 3 PM CDT 09/03/2025 10:45 PM CDT Narrative [facility] - 09/03/2025 11:35 PM CDT Has the patient had Daratumumab or Isatuximab in the past 6 months?->Unknown Braden Christie MD LAB BLOOD BANK TEST ORDERABLE S Final Result Performing Organization Address [facility] [place] [address] * Infection Prevention MRSA Only (Staphylococcus aureus) Culture Nasal (09/03/2025 10:13 PM CDT) Report Final Report: Negative Nasal 09/03/2025 10:1 3 PM CDT 09/03/2025 10:24 PM CDT Narrative [facility] - 09/05/2025 4:06 AM CDT Testing performed by [facility] ([phone]). Braden Christie MD LAB MICROBIOLOGY - GENERAL OR DERABLES Final Result Performing Organization Address City/[facility]/ZIP Co de Phone Number [place] [address] * T4, free (09/03/2025 10:13 PM CDT) Pathologist [facility] Free T4 0.90 0.90 - 1.70 ng/dL Blood 09/03/2025 10:1 3 PM CDT 09/03/2025 10:28 PM CDT Narrative [facility] - 09/04/2025 1:28 AM CDT This test was reflexed from a TSH result. us Mami Garzon MD LAB BLOOD ORDERABLES Edited R esult - Final [facility] [place] [address] * Phosphorus (09/03/2025 10:13 PM CDT) [facility] Phosphorus, pl 4.3 2.3 - 4.5 mg/dL Blood 09/03/2025 10:1 3 PM CDT 09/03/2025 10:28 PM CDT Gene Walter MD LAB BLOOD ORDERAB LES Final Result [facility] [employer] [place] [address] * Magnesium (09/03/2025 10:13 PM CDT) [facility] Magnesium 2.0 1.4 - 2.5 mg/dL Blood 09/03/2025 10:1 3 PM CDT 09/03/2025 10:28 PM CDT us Gene Walter MD LAB BLOOD ORDERAB LES Final Result [facility] Department [place] [address] * Ferritin (09/03/2025 10:13 PM CDT) Ferritin 95 30 - 400 ng/mL Blood 09/03/2025 10:1 3 PM CDT 09/03/2025 10:28 PM CDT us Mami Garzon MD LAB BLOOD ORDERABLES Final Re sult [facility] Department [place] [address] * (ABNORMAL) Comprehensive metabolic panel (09/03/2025 10:13 PM CDT) Pathologist [facility] Sodium 144 135 - 145 mmol/L Potassium, pl 3.7 3.3 - 4.9 mmol/L [facility] Chloride 99 97 - 110 mmol/L [facility] CO2 39(H) 22 - 32 mmol/L [facility] Anion gap 6 2 - 15 mmol/L [facility] BUN 37(H) 6 - 25 mg/dL [facility] Creatinine 1.80(H) 0.80 - 1.30 mg/dL [facility] Glucose 75 70 - 199 mg/dL [facility] Comment: Interpretive Data Fasting glucose >/= 126 mg/dl is diagnostic for diabetes. Fasting is defined as no caloric intake for at least 8 hours. Fasting glucose between 100 mg/dl to 125 mg/dl is diagnostic of prediabetes. In a patient with classic symptoms of hyperglycemia or hyperglycemic crisis, a random glucose >/= 200 mg/dl is diagnostic for diabetes. In the absence of unequivocal hyperglycemia, results should be confirmed by repeat testing. The classification and Diagnosis of Diabetes Diabetes Care 202; 46: S19-S40. Current interpretive data was last revised 2022. Calcium 9.1 8.5 - 10.3 mg/dL [facility] Bilirubin, total 0.4 0.1 - 1.2 mg/dL [facility] Protein, pl 7.6 6.5 - 8.5 g/dL [facility] Albumin 3.9 3.5 - 5.0 g/dL [facility] Alk phos 29(L) 40 - 130 Units/L [facility] ALT 14 7 - 55 Units/L [facility] AST 24 10 - 50 Units/L [facility] Blood 09/03/2025 10:1 3 PM CDT 09/03/2025 10:28 PM CDT us Braden Christie MD LAB BLOOD ORDERABLES Final Re sult [facility] Department [place] [address] * (ABNORMAL) POC Blood Gas and Chemistries, Venous - (09/03/2025 10:12 PM CDT) pH, Hunter POC 7.45(H) 7.32 - 7.43 pCO2, hunter POC 74(H) 40 - 50 mmHg [facility] pO2, hunter POC 56 mmHg [facility] Na, POC 144 135 - 145 mmol/L [facility] K POC 3.7 3.3 - 4.9 mmol/L [facility] Comment: Interpretive Data Not all point of care methods assess for hemolysis. Confirm with instrument and retest K+ if not consistent with clinical signs and symptoms. Current Interpretive Data was last revised on 2024. Cl, POC 102 97 - 110 mmol/L [facility] Ionized Ca, POC 4.81 4.50 - 5.10 mg/dL [facility] Glucose, POC 81 70 - 199 mg/dL [facility] Lactate POC 0.8 0.7 - 2.0 mmol/L [facility] O2 Sat, Hutner POC (Fortunato) 92 % [facility] Base excess, POC >20.0 mmol/L [facility] HCO3, Hunetr POC 51(C) 20 - 30 mmol/L [facility] Hct, POC 26.0(L) 41.4 - 51.6 % [facility] Total Hb, POC 8.7(L) 13.8 - 17.2 g/dL [facility] Blood 09/03/2025 10:1 2 PM CDT 09/03/2025 10:12 PM CDT us Gene Walter MD LAB POCT ORDERABL ES - DEVICE Final Result Performing Organization Address [facility] Co de Phone Number [facility] Department [place] [address] * ECG 12 lead (09/03/2025 9:39 PM CDT) Ventricular Rate EKG/Min 60 BPM [facility] Atrial Rate 60 BPM [facility] GA-Interval (MSEC) 262 ms [facility] QRS-Interval (MSEC) 110 ms [facility] QT-Interval (MSEC) 474 ms [facility] QTc 474 ms [facility] R Homer -30 degrees [facility] T Homer -10 degrees [facility] Diagnosis Sinus rhythm with 1st degree A-V block Left axis deviation Abnormal ECG Confirmed by Frank CHU [facility]ly [facility] ([id number]) on 09/05/2025 8:45:30 AM [facility] 09/03/2025 9:39 PM CDT 09/05/2025 8:45 AM CDT us Braden Christie MD ECG ORDERABLES Final Result Performing Organization Address [facility] de Phone Number [facility] * Critical Result Callback Chemistry (09/03/2025 6:56 PM CDT) Date Notified [id number] Time Notified 19:14 DAMIAN [facility] TestName Martha SALGADO [facility] Called/Read Back Barrington SALGADO [facility] Credentials MD SALGADO [facility] Called By DAMIAN [facility] Blood 09/03/2025 6:56 PM CDT 09/03/2025 7:06 PM CDT us Dayanna Pizarro MD LAB BLOOD ORDERABLES F inal Result Performing Organization Address [facility] Co de Phone Number [facility] Department [place] [address] * (ABNORMAL) Blood gas, venous (09/03/2025 6:56 PM CDT) pH, Venous 7.31(L) 7.32 - 7.43 PCO2, Venous 78(C) 40 - 50 mmHg [facility] PO2, Venous 44 mmHg [facility] Comment: Interpretive Data No Reference Range Established Current Interpretive Data was last revised on 2018. HCO3 Venous, Calculated 38(H) 20 - 30 mmol/L [facility] BE, venous 11 mmol/L [facility] Comment: Interpretive Data No Reference Range Established Current Interpretive Data was last revised on 2018. Blood 09/03/2025 6:56 PM CDT 09/03/2025 7:06 PM CDT us Dayanna Pizarro MD LAB BLOOD ORDERABLES F inal Result Performing Organization Address [facility]/ZIP Co de Phone Number [facility] Department [place] [address] * Troponin I high-sensitivity 2-hour (09/03/2025 4:42 PM CDT) Pathologist [facility] Trop I hs 12 <=35 ng/L Comment: Interpretive Data For further [facility] resources including the diagnostic algorithm and an aid in interpretation, copy and paste this link: [email or web address] Current Interpretive Data last revised 2020. Trop I hs delta -2 ng/L [facility] Trop I hs interp Insignificant [facility] Blood 09/03/2025 4:42 PM CDT 09/03/2025 4:52 PM CDT Vivian Fitzgerald MD LAB BLOOD ORDERABLE S Final Result Performing Organization Address [facility]/ZIP Co de Phone Number [facility] [place] [address] * GA CRITICAL CARE ILL/INJURED PATIENT INIT 30-74 MIN (09/03/2025 4:36 PM CDT) Narrative Nanette Ferris MD - 09/03/2025 4:36 PM CDT Nanette Ferris MD 09/04/2025 1:04 AM Critical Care Performed by: Nanette Ferris MD Authorized by: Nanette Ferris MD Critical care provider statement: As reflected in the history, physical exam, orders, notes, and/or MDM, I was personally present while the patient was critically ill and provided critical care services for 38 minutes, excluding time involved in separately billable procedures. Critical care was necessary to treat or prevent imminent or life-threatening deterioration of the following condition(s): hypercarbic respiratory failure Critical care was time spent by me providing the following: continuous telemetry, continuous pulse oximetry, interpretation of bedside monitors, imaging, and arterial/venous lab draws, serial bedside patient exams and serial laboratory checks non-invasive positive pressure ventilator management I provided emergent necessary critical care medicine services to this patient. I ordered and reviewed test results and/or imaging studies. I spent time discussing the management of this critically ill patient with consultants and the medical staff. I spent time discussing the management and therapeutic options for this critically ill patient with the patient themselves or with the appropriate designated surrogate decision-maker. I spent time documenting in the medical record. I admitted this patient to an Intensive Care unit (ICU) and discussed management with the admitting team. us Nanette Ferris MD IN CLINIC/BEDSIDE ORD ERABLES Final Result * CTA Chest Abdomen Pelvis (09/03/2025 4:30 PM CDT) Anatomical Region Laterality Modality Body N/A Computed Tomogra phy 09/03/2025 5:07 PM CDT Impressions 09/03/2025 5:07 PM CDT 1. Interval postoperative changes of ascending aorta and hemiarch replacements as well as aortic valve replacement and left atrial appendage clip placement with expected postoperative changes in the mediastinum. 2. Unchanged dimensions of the aortic root and descending aorta. 3. Findings of volume overload including mild pulmonary edema, moderate size bilateral pleural effusions, small volume ascites, and mild body wall edema. Electronically signed by: Xavi Coombs M.D. 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 TECHNIQUE: CT angiography of the chest, abdomen and pelvis was performed prior to and following the intravenous administration of 95 ml Optiray-350 using the dissection protocol. Vascular 3D images were generated on a dedicated workstation and also reviewed. COMPARISON: 04/25/2025 FINDINGS: VASCULAR FINDINGS: There are interval postoperative changes of ascending aorta and hemiarch replacements with aortic valve replacement. There are expected postoperative changes in the mediastinum with expected perigraft postoperative changes. The [place] aortic root and [place] descending aorta are unchanged with specific measurements provided below: Sinuses of Valsalva: 39 x 35 mm, unchanged Proximal descending aorta: 47 x 44 mm, unchanged Descending aorta at the hiatus 34 x 33 mm, unchanged The abdominal aorta is normal in caliber. The bilateral common iliac arteries are tortuous and dilated, with left common iliac artery measuring up to 2 cm in right common iliac artery measuring up to 1.6 cm, unchanged from prior. NON-VASCULAR FINDINGS: There is mild pulmonary edema with moderate sized bilateral pleural effusions. There is associated mild compressive atelectasis. There is no consolidation or pneumothorax. Postoperative changes of a median sternotomy are noted. A left atrial appendage clip is present. The heart size is at the upper limits of normal. There is no pericardial effusion. There are a few mildly enlarged paraesophageal lymph nodes in the region hiatus measuring up to 1.6 cm in short axis which may be reactive. There is no hepatic lesion or biliary duct dilation. The gallbladder is surgically absent. The spleen, pancreas, and adrenal glands are normal. There is an unchanged cyst of the right renal midpole. There is no left renal lesion. There is no hydronephrosis. The urinary bladder is normal. The large and small bowel are normal in caliber without obstruction. The appendix is normal. There is a small volume of ascites. There is no pneumoperitoneum. There are a few prominent subcentimeter and borderline enlarged retroperitoneal lymph nodes which are nonspecific and may be reactive. Mild body wall edema is noted. No aggressive osseous lesion is identified. 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 TECHNIQUE: CT angiography of the chest, abdomen and pelvis was performed prior to and following the intravenous administration of 95 ml Optiray-350 using the dissection protocol. Vascular 3D images were generated on a dedicated workstation and also reviewed. COMPARISON: 04/25/2025 FINDINGS: VASCULAR FINDINGS: There are interval postoperative changes of ascending aorta and hemiarch replacements with aortic valve replacement. There are expected postoperative changes in the mediastinum with expected perigraft postoperative changes. The [place] aortic root and [place] descending aorta are unchanged with specific measurements provided below: Sinuses of Valsalva: 39 x 35 mm, unchanged Proximal descending aorta: 47 x 44 mm, unchanged Descending aorta at the hiatus 34 x 33 mm, unchanged The abdominal aorta is normal in caliber. The bilateral common iliac arteries are tortuous and dilated, with left common iliac artery measuring up to 2 cm in right common iliac artery measuring up to 1.6 cm, unchanged from prior. NON-VASCULAR FINDINGS: There is mild pulmonary edema with moderate sized bilateral pleural effusions. There is associated mild compressive atelectasis. There is no consolidation or pneumothorax. Postoperative changes of a median sternotomy are noted. A left atrial appendage clip is present. The heart size is at the upper limits of normal. There is no pericardial effusion. There are a few mildly enlarged paraesophageal lymph nodes in the region hiatus measuring up to 1.6 cm in short axis which may be reactive. There is no hepatic lesion or biliary duct dilation. The gallbladder is surgically absent. The spleen, pancreas, and adrenal glands are normal. There is an unchanged cyst of the right renal midpole. There is no left renal lesion. There is no hydronephrosis. The urinary bladder is normal. The large and small bowel are normal in caliber without obstruction. The appendix is normal. There is a small volume of ascites. There is no pneumoperitoneum. There are a few prominent subcentimeter and borderline enlarged retroperitoneal lymph nodes which are nonspecific and may be reactive. Mild body wall edema is noted. No aggressive osseous lesion is identified. IMPRESSION: 1. Interval postoperative changes of ascending aorta and hemiarch replacements as well as aortic valve replacement and left atrial appendage clip placement with expected postoperative changes in the mediastinum. 2. Unchanged dimensions of the aortic root and descending aorta. 3. Findings of volume overload including mild pulmonary edema, moderate size bilateral pleural effusions, small volume ascites, and mild body wall edema. Electronically signed by: Xavi Coombs M.D. Vivian Fitzgerald MD IM CT PROCEDURES F inal Result * CT Head WO Contrast (09/03/2025 4:30 PM CDT) Anatomical Region Laterality Modality Head and Neck N/A Computed Tomogra phy 09/03/2025 5:03 PM CDT Impressions 09/03/2025 8:41 PM CDT No acute intracranial hemorrhage, enlargement, or hydrocephalus. Dictated by: Porfirio Porter M.D. The radiology attending physician has personally reviewed this study, and had reviewed and/or edited this written report and agrees with it. Electronically signed by: Enrique Coughlin MD Narrative 09/03/2025 8:41 PM CDT EXAMINATION: CT head without contrast HISTORY: 80-year-old male presenting with altered mental status. TECHNIQUE: CT of the head was performed with images acquired from skull base to vertex without intravenous contrast. COMPARISON: None available. 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 Additional scattered ill-defined hypodensities in the periventricular and subcortical white matter are nonspecific, likely on the basis of chronic small vessel ischemic change. There is mild global parenchymal volume loss. There are atherosclerotic calcifications of the intracranial vessels. There is no acute intracranial hemorrhage. Ventricles are of normal size and morphology. No mass effect or midline shift is present. The alexis-white matter differentiation is normal. Mild proptosis with bilateral lens replacement. No orbital mass. The visualized portions of the mastoids are normal. Mild mucosal thickening of the ethmoid air cells and bilateral maxillary sinuses. The remaining paranasal sinuses are normal.. No fractures are identified. Erosion within the left mandible with adjacent left molar periapical lucency in keeping with periodontal disease. Procedure Note Enrique Coughlin MD PhD - 09/03/2025 EXAMINATION: CT head without contrast HISTORY: 80-year-old male presenting with altered mental status. TECHNIQUE: CT of the head was performed with images acquired from skull base to vertex without intravenous contrast. COMPARISON: None available. 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 Additional scattered ill-defined hypodensities in the periventricular and subcortical white matter are nonspecific, likely on the basis of chronic small vessel ischemic change. There is mild global parenchymal volume loss. There are atherosclerotic calcifications of the intracranial vessels. There is no acute intracranial hemorrhage. Ventricles are of normal size and morphology. No mass effect or midline shift is present. The alexis-white matter differentiation is normal. Mild proptosis with bilateral lens replacement. No orbital mass. The visualized portions of the mastoids are normal. Mild mucosal thickening of the ethmoid air cells and bilateral maxillary sinuses. The remaining paranasal sinuses are normal.. No fractures are identified. Erosion within the left mandible with adjacent left molar periapical lucency in keeping with periodontal disease. IMPRESSION: No acute intracranial hemorrhage, enlargement, or hydrocephalus. Dictated by: Porfirio Porter M.D. The radiology attending physician has personally reviewed this study, and had reviewed and/or edited this written report and agrees with it. Electronically signed by: Enrique Coughlin MD Vivian Fitzgerald MD IMG CT PROCEDURES F inal Result * POCT glucose (09/03/2025 4:09 PM CDT) Glucose, POC 87 70 - 199 mg/dL Blood 09/03/2025 4:09 PM CDT 09/03/2025 4:09 PM CDT Nanette Ferris MD LAB POCT ORDERABLES - DEVICE Final Result [facility] Department [place] [address] * Critical Result Callback Chemistry (09/03/2025 3:15 PM CDT) Pathologist [facility] Date Notified [id number] Time Notified 16:16 [facility] TestName pCO2 Hunter [facility] Called/Read Back Nanette SALGADO [facility] Credentials MD DAMIAN SHEPARD [facility] Blood 09/03/2025 3:15 PM CDT 09/03/2025 4:04 PM CDT us Vivian Fitzgerald MD LAB BLOOD ORDERABLE S Final Result [facility] Department [place] [address] * Respiratory pathogen panel Nasopharyngeal (09/03/2025 3:15 PM CDT) [facility] Influenza A RNA Not Detected Not Detected Influenza B RNA Not Detected Not Detected [facility] RSV RNA Not Detected Not Detected [facility] COVID-19 RNA Not Detected Not Detected [facility] Coronavirus 229E RNA Not Detected Not Detected [facility] Coronavirus HKU1 RNA Not Detected Not Detected [facility] Coronavirus NL63 RNA Not Detected Not Detected [facility] Coronavirus OC43 RNA Not Detected Not Detected [facility] Adenovirus DNA Not Detected Not Detected [facility] Metapneumovirus RNA Not Detected Not Detected [facility] Rhinovirus/Enterov irus RNA Not Detected Not Detected [facility] Parainfluenza 1 RNA Not Detected Not Detected [facility] Parainfluenza 2 RNA Not Detected Not Detected [facility] Parainfluenza 3 RNA Not Detected Not Detected [facility] Parainfluenza 4 RNA Not Detected Not Detected [facility] B. pertussis DNA Not Detected Not Detected [facility] B. parapertussis DNA Not Detected Not Detected [facility] C. pneumoniae DNA Not Detected Not Detected [facility] M. pneumoniae DNA Not Detected Not Detected [facility] Nasopharyngeal 09/03/2025 3: 15 PM CDT 09/03/2025 4:07 PM CDT Davidson SALGADO [facility] - 09/03/2025 5:08 PM CDT Is the Patient experiencing symptoms consistent with COVID?->Yes Surveillance testing for transplant patient?->No Interpretive Data The [employer] FilmArray Respiratory Panel (RP2.1) assay is a multiplexed real-time PCR based nucleic acid test capable of simultaneous qualitative detection and identification of multiple respiratory viral and bacterial nucleic acids, including SARS Coronavirus 2 (the causative agent of COVID-19). The following bacteria, viruses and virus subtypes can be identified using the FilmArray RP2.1 assay: Bordetella pertussis, Bordetella parapertussis, Chlamydia pneumoniae, Mycoplasma pneumoniae, Adenovirus, SARS Coronavirus 2, seasonal coronaviruses (Coronavirus HKU1, Coronavirus NL63, Coronavirus 229E, and Coronavirus OC43), Influenza A, Influenza A subtype H1, Influenza A subtype H3, Influenza A subtype 2009 H1, Influenza B, Metapneumovirus, Parainfluenza 1, Parainfluenza 2, Parainfluenza 3, Parainfluenza 4, RSV, Rhinovirus/Enterovirus. Due to the genetic similarity between human Rhinovirus and Enterovirus, the FilmArray RP2.1 assay cannot reliably differentiate them. Coronavirus OC43 may cross-react with some isolates of Coronavirus HKU1. A dual positive result may be due to cross-reactivity or may indicate a co- infection. The detection and identification of specific viral and bacterial nucleic acids from individuals exhibiting signs and symptoms of a respiratory infection aids in the diagnosis of respiratory infection if used in conjunction with other clinical and epidemiological information. The results of this test should not be used as the sole basis for diagnosis, treatment, or other management decisions. Negative results in the setting of a respiratory illness may be due to infection with pathogens that are not detected by this test. Positive results do not rule out infection/co-infection with other organisms. The agent(s) detected by the FilmArray RP2.1 may not be the definite cause of disease. Additional testing (lab, imaging, etc.) may be necessary when evaluating a patient with possible respiratory tract infection. The FilmArray RP2.1 assay has FDA clearance for testing of HAND SPINNER swabs. The performance of additional specimen types has been assessed by the performing laboratory. The performance characteristics of this assay have been determined by [facility]. Current interpretive data was last revised on 22. Vivian Fitzgerald MD LAB MICROBIOLOGY - GENERAL ORDERABLES Final Result Performing Organization Address [facility] Co de Phone Number [facility] [place] [address] * (ABNORMAL) Blood gas, venous (09/03/2025 3:15 PM CDT) pH, Venous 7.29(L) 7.32 - 7.43 PCO2, Venous 83(C) 40 - 50 mmHg [facility] PO2, Venous 58 mmHg [facility] Comment: Interpretive Data No Reference Range Established Current Interpretive Data was last revised on 2018. HCO3 Venous, Calculated 39(H) 20 - 30 mmol/L [facility] BE, venous 11 mmol/L [facility] Comment: Interpretive Data No Reference Range Established Current Interpretive Data was last revised on 2018. Blood 09/03/2025 3:15 PM CDT 09/03/2025 4:04 PM CDT Vivian Fitzgerald MD LAB BLOOD ORDERABLE S Final Result Performing Organization Address [facility] de Phone Number [facility] Department [place] [address] * XR Chest 1 Vw Portable (09/03/2025 2:40 PM CDT) Anatomical Region Laterality Modality Body, Chest N/A Computed Radiogr aphy 09/03/2025 2:52 PM CDT Impressions 09/03/2025 2:52 PM CDT Comparison is made to prior study dated 08/12/2025. Interval decrease in size of left pleural effusion which is likely now small. Persistent moderate atelectasis left lower lobe and mild right basilar atelectasis. No pulmonary edema. No right pleural effusion. No pneumothorax. Heart and mediastinal contours are stable. Unchanged sternotomy and aortic valve replacement. Left atrial appendage clip. Electronically signed by: Som Coyne M.D. Narrative 09/03/2025 2:52 PM CDT EXAMINATION: 1 view chest radiograph Procedure Note Som Coyne MD - 09/03/2025 EXAMINATION: 1 view chest radiograph IMPRESSION: Comparison is made to prior study dated 08/12/2025. Interval decrease in size of left pleural effusion which is likely now small. Persistent moderate atelectasis left lower lobe and mild right basilar atelectasis. No pulmonary edema. No right pleural effusion. No pneumothorax. Heart and mediastinal contours are stable. Unchanged sternotomy and aortic valve replacement. Left atrial appendage clip. Electronically signed by: Som Coyne M.D. Vivian Fitzgerald MD IMG XR PROCEDURES F inal Result * ECG 12-LEAD (09/03/2025 2:29 PM CDT) Narrative [facility] - 09/03/2025 2:29 PM CDT Angelo Yee MD 09/03/2025 2:58 PM ECG 12 lead Date/Time: 09/03/2025 2:29 PM Performed by: Vivian Fitzgerald MD Authorized by: Vivian Fitzgerald MD Rate: ECG rate: 59 ECG rate assessment: normal Rhythm: Rhythm: sinus rhythm Ectopy: Ectopy: none QRS: QRS axis: Left QRS intervals: Normal Conduction: Conduction: abnormal Abnormal conduction: 1st degree and LAFB ST segments: ST segments: Normal T waves: T waves: normal Other findings: Other findings: low voltage Previous ECG: Previous ECG: Compared to current Date of previous EC08/14/2025 Similarity: No change Interpretation: Interpretation: No significant change Recommended Follow-up: Recommended follow up: further workup in the ED Vivian Fitzgerald MD ECG ORDERABLES Fin al Result [facility] * Troponin I high-sensitivity series (baseline, 2hr, 4hr, 6hr) (09/03/2025 2:12 PM CDT) Trop I hs 14 <=35 ng/L Comment: Interpretive Data For further hscTnI resources including the diagnostic algorithm and an aid in interpretation, copy and paste this link: [email or web address] Current Interpretive Data last revised 2020. Blood 09/03/2025 2:12 PM CDT 09/03/2025 2:38 PM CDT us Vivian Fitzgerald MD LAB BLOOD ORDERABLE S Final Result DAMIAN [facility] Department [place] [address] * (ABNORMAL) eGFR (09/03/2025 2:12 PM CDT) eGFR 34(L) >=60 mL/min/1. 73 m2 Comment: Interpretive Data Reference Interval Normal >/= 90 mL/min/1.73m2 Mildly decreased* 60 - 89 mL/min/1.73m2 Mildly to moderately decreased 45 - 59 mL/min/1.73m2 Moderately to severely decreased 30 - 44 mL/min/1.73m2 Severely decreased 15 - 29 mL/min/1.73m2 Kidney Failure < 15 mL/min/1.73m2 *Relative to young adult level Estimated glomerular filtration rate is determined by the 2020 CKD-EPI equation recommended by the National Kidney Foundation (A Unifying Approach to GFR Estimation: Recommendations of the NKF-ASK Task Force on Reassessing the Inclusion of Race in Diagnosing Kidney Disease, JASN 2020). The CKD-EPI equation should not be used for patients with unstable renal function and has not been validated in children and those over 70. Current interpretive data was last reviewed 2021. Blood 09/03/2025 2:12 PM CDT 09/03/2025 2:37 PM CDT us Vivian Fitzgerald MD LAB BLOOD ORDERABLE S Final Result DAMIAN [facility] Department [place] [address] * (ABNORMAL) Differential, auto (09/03/2025 2:12 PM CDT) Neutrophil abs 3.15 1.50 - 6.50 K/cumm Imm gran abs 0.02 0.00 - 0.10 K/cumm [facility] Lymphocyte abs 0.79(L) 0.80 - 3.30 K/cumm [facility] Monocyte abs 0.41 0.20 - 0.80 K/cumm [facility] Eosinophil abs 0.13 0.00 - 0.50 K/cumm [facility] Basophil abs 0.01 0.00 - 0.10 K/cumm [facility] Neutrophil pct 69.9 % [facility] Comment: Interpretive Data Percent cell count reference ranges are not reported, since discordance with absolute values may lead to misinterpretation of CBC data. Current Interpretive Data was last revised on 2018. Imm gran pct 0.4 % [facility] Comment: Interpretive Data Percent cell count reference ranges are not reported, since discordance with absolute values may lead to misinterpretation of CBC data. Current Interpretive Data was last revised on 2018. Lymphocyte pct 17.5 % [facility] Comment: Interpretive Data Percent cell count reference ranges are not reported, since discordance with absolute values may lead to misinterpretation of CBC data. Current Interpretive Data was last revised on 2018. Monocyte pct 9.1 % [facility] Comment: Interpretive Data Percent cell count reference ranges are not reported, since discordance with absolute values may lead to misinterpretation of CBC data. Current Interpretive Data was last revised on 2018. Eosinophil pct 2.9 % [facility] Comment: Interpretive Data Percent cell count reference ranges are not reported, since discordance with absolute values may lead to misinterpretation of CBC data. Current Interpretive Data was last revised on 2018. Basophil pct 0.2 % [facility] Comment: Interpretive Data Percent cell count reference ranges are not reported, since discordance with absolute values may lead to misinterpretation of CBC data. Current Interpretive Data was last revised on 2018. Blood 09/03/2025 2:12 PM CDT 09/03/2025 2:38 PM CDT us Vivian Fitzgerald MD LAB BLOOD ORDERABLE S Final Result DAMIAN [facility] Department [place] [address] * (ABNORMAL) Pro B-type natriuretic peptide (09/03/2025 2:12 PM CDT) NT-proBNP 2,589(H) <=450 pg/mL Comment: Interpretive Comments: A. Dyspnea in Acute Care Setting All Ages: < 300 pg/ml, acute heart failure unlikely. < 50 yrs: 300 - 450 pg/ml, further investigation warranted. > 450 pg/ml, acute heart failure likely. 50 - 74 yrs: 300 - 900 pg/ml, further investigation warranted. > 900 pg/ml, acute heart failure likely . > or = 75 yrs: 450 - 1800 pg/ml, further investigation warranted. > 1800 pg/ml, acute heart failure likely. B. Non-acute Setting < 75 yrs < 125 pg/ml, rules out heart failure. > or = 125 pg/ml, further investigation warranted. > or = 75 yrs < 450 pg/ml, rules out heart failure. > or = 450 pg/ml, further investigation warranted. - Knowledge of each individual patient's NT-proBNP range may be more useful than using similar cut-points for every patient. Please note that marked elevations in NT-proBNP levels may be observed in state other than Left Ventricular Congestive Failure, including: acute coronary syndromes, right heart strain/failure (including pulmonary embolism and cor pulmonale), critical illness, renal failure, as well as advanced age. - References: 1. [facility] AGUILAR et.al. Eur Heart J. 2006:27:330-337. 2. Everardo RW, [place] AM. J. AM Michael Cardiol: Cardiovasc Imag. 2009;2: 216- 225. Interpretive Data Last Revised Date: 2018. Blood 09/03/2025 2:12 PM CDT 09/03/2025 2:37 PM CDT Vivian Fitzgerald MD LAB BLOOD ORDERABLE S Final Result Performing Organization Address City/[facility]/ZIP Co de Phone Number [facility] Department [place] [address] * (ABNORMAL) CBC with auto differential (09/03/2025 2:12 PM CDT) [facility] WBC 4.51 3.80 - 9.90 K/cumm Hgb 8.4(L) 13.0 - 17.5 g/dL [facility] Hct 28.9(L) 38.9 - 50.3 % [facility] Plt 131(L) 150 - 400 K/cumm [facility] MPV 10.0 9.1 - 12.3 fL [facility] RBC 3.23(L) 4.30 - 5.80 M/cumm [facility] MCV 89.5 81.3 - 96.4 fL [facility] MCH 26.0(L) 27.1 - 33.3 pg [facility] MCHC 29.1(L) 32.3 - 35.7 g/dL [facility] RDW CV 14.2 11.1 - 14.9 % [facility] RDW SD 46.5 35.7 - 48.1 fL [facility] NRBC abs 0.00 0.00 - 0.01 K/cumm [facility] Blood 09/03/2025 2:12 PM CDT 09/03/2025 2:38 PM CDT Vivian Fitzgerald MD LAB BLOOD ORDERABLE S Final Result [facility] [place] [address] * (ABNORMAL) Comprehensive metabolic panel (09/03/2025 2:12 PM CDT) [facility] Sodium 142 135 - 145 mmol/L Potassium, pl 4.2 3.3 - 4.9 mmol/L [facility] Chloride 100 97 - 110 mmol/L [facility] CO2 37(H) 22 - 32 mmol/L [facility] Anion gap 5 2 - 15 mmol/L [facility] BUN 38(H) 6 - 25 mg/dL [facility] Creatinine 1.93(H) 0.80 - 1.30 mg/dL [facility] Glucose 86 70 - 199 mg/dL [facility] Comment: Interpretive Data Fasting glucose >/= 126 mg/dl is diagnostic for diabetes. Fasting is defined as no caloric intake for at least 8 hours. Fasting glucose between 100 mg/dl to 125 mg/dl is diagnostic of prediabetes. In a patient with classic symptoms of hyperglycemia or hyperglycemic crisis, a random glucose >/= 200 mg/dl is diagnostic for diabetes. In the absence of unequivocal hyperglycemia, results should be confirmed by repeat testing. The classification and Diagnosis of Diabetes Diabetes Care 202; 46: S19-S40. Current interpretive data was last revised 2022. Calcium 9.0 8.5 - 10.3 mg/dL [facility] Bilirubin, total 0.4 0.1 - 1.2 mg/dL [facility] Protein, pl 7.8 6.5 - 8.5 g/dL [facility] Albumin 3.9 3.5 - 5.0 g/dL [facility] Alk phos 29(L) 40 - 130 Units/L [facility] ALT 13 7 - 55 Units/L [facility] AST 24 10 - 50 Units/L [facility] Blood 09/03/2025 2:12 PM CDT 09/03/2025 2:37 PM CDT us Vivian Fitzgerald MD LAB BLOOD ORDERABLE S Final Result [facility] Department [place] [address] * POCT glucose (09/03/2025 2:09 PM CDT) Glucose, POC 95 70 - 199 mg/dL Blood 09/03/2025 2:09 PM CDT 09/03/2025 2:09 PM CDT us Notinfile Unknown LAB POCT ORDERABLES - DEVICE F inal Result Performing Organization Address City/[facility] Co de Phone Number [facility] [employer] [place] [address] * POCT glucose (08/14/2025 12:08 PM CDT) Glucose, POC 152 70 - 199 mg/dL Blood 08/14/2025 12:0 8 PM CDT 08/14/2025 12:08 PM CDT Washington Zaman MD LAB POCT ORDERABLES - DEVICE Final Result Performing Organization Address City/[facility] Co de Phone Number [facility] [employer] [place] [address] * POCT glucose (08/14/2025 8:19 AM CDT) Glucose, POC 130 70 - 199 mg/dL Blood 08/14/2025 8:19 AM CDT 08/14/2025 8:19 AM CDT Washington Zaman MD LAB POCT ORDERABLES - DEVICE Final Result Performing Organization Address City/[facility] Co de Phone Number [facility] [employer] [place] [address] * ECG 12 lead (08/14/2025 6:31 AM CDT) Ventricular Rate EKG/Min 53 BPM [facility] Atrial Rate 53 BPM [facility] GA-Interval (MSEC) 266 ms [facility] QRS-Interval (MSEC) 96 ms [facility] QT-Interval (MSEC) 502 ms [facility] QTc 471 ms [facility] P Homer 43 degrees [facility] R Homer -65 degrees [facility] T Homer 34 degrees [facility] Diagnosis Sinus bradycardia with 1st degree A-V block Left axis deviation Low voltage QRS Inferior infarct , age undetermined Cannot rule out Anteroseptal infarct (cited on or before 12-AUG-2025) Abnormal ECG Confirmed by Frank CHU, Janene ([id number]) on 08/14/2025 11:05:38 PM [facility] 08/14/2025 6:31 AM CDT 08/14/2025 11:05 PM CDT us Christelle Henley HAND SPINNER ECG ORDERABLES Final Result Performing Organization Address [facility] Co de Phone Number [facility] * POCT glucose (08/14/2025 2:02 AM CDT) Glucose, POC 147 70 - 199 mg/dL Blood 08/14/2025 2:02 AM CDT 08/14/2025 2:02 AM CDT Washington Zaman MD LAB POCT ORDERABLES - DEVICE Final Result Performing Organization Address [facility] Co de Phone Number [facility] Department [place] [address] * POCT glucose (08/13/2025 8:16 PM CDT) Glucose, POC 138 70 - 199 mg/dL Blood 08/13/2025 8:16 PM CDT 08/13/2025 8:16 PM CDT us Washington Zaman MD LAB POCT ORDERABLES - DEVICE Final Result Performing Organization Address [facility] Co de Phone Number [facility] Department [place] [address] * (ABNORMAL) eGFR (08/13/2025 8:06 PM CDT) [facility] eGFR 28(L) >=60 mL/min/1. 73 m2 Comment: Interpretive Data Reference Interval Normal >/= 90 mL/min/1.73m2 Mildly decreased* 60 - 89 mL/min/1.73m2 Mildly to moderately decreased 45 - 59 mL/min/1.73m2 Moderately to severely decreased 30 - 44 mL/min/1.73m2 Severely decreased 15 - 29 mL/min/1.73m2 Kidney Failure < 15 mL/min/1.73m2 *Relative to young adult level Estimated glomerular filtration rate is determined by the 2020 CKD-EPI equation recommended by the National Kidney Foundation (A Unifying Approach to GFR Estimation: Recommendations of the NKF-ASK Task Force on Reassessing the Inclusion of Race in Diagnosing Kidney Disease, JASN 2020). The CKD-EPI equation should not be used for patients with unstable renal function and has not been validated in children and those over 70. Current interpretive data was last reviewed 2021. Blood 08/13/2025 8:06 PM CDT 08/13/2025 8:50 PM CDT us Christelle Henley NP LAB BLOOD ORDERABLES Final R esult [facility] Department [place] [address] * (ABNORMAL) CBC without differential (08/13/2025 8:06 PM CDT) [facility] WBC 8.24 3.80 - 9.90 K/cumm Hgb 8.1(L) 13.0 - 17.5 g/dL [facility] Hct 25.4(L) 38.9 - 50.3 % [facility] Plt 298 150 - 400 K/cumm [facility] MPV 9.9 9.1 - 12.3 fL [facility] RBC 2.97(L) 4.30 - 5.80 M/cumm [facility] MCV 85.5 81.3 - 96.4 fL [facility] MCH 27.3 27.1 - 33.3 pg [facility] MCHC 31.9(L) 32.3 - 35.7 g/dL [facility] RDW CV 14.2 11.1 - 14.9 % [facility] RDW SD 44.6 35.7 - 48.1 fL [facility] NRBC abs 0.00 0.00 - 0.01 K/cumm [facility] Blood 08/13/2025 8:06 PM CDT 08/13/2025 8:50 PM CDT us Christelle Henley HAND SPINNER LAB BLOOD ORDERABLES Final R esult Performing Organization Address City/[facility]/ZIP Co de Phone Number [facility] [place] [address] * (ABNORMAL) Phosphorus (08/13/2025 8:06 PM CDT) Phosphorus, pl 5.7(H) 2.3 - 4.5 mg/dL Blood 08/13/2025 8:06 PM CDT 08/13/2025 8:50 PM CDT us Christelle Henley HAND SPINNER LAB BLOOD ORDERABLES Final R esult Performing Organization Address City/[facility] Co de Phone Number [facility] Department [place] [address] * Magnesium (08/13/2025 8:06 PM CDT) Magnesium 1.8 1.4 - 2.5 mg/dL Blood 08/13/2025 8:06 PM CDT 08/13/2025 8:50 PM CDT us Mami Garza HAND SPINNER LAB BLOOD ORDERABLES Final Resul t Performing Organization Address City/[facility] Co de Phone Number [facility] Department [place] [address] * (ABNORMAL) Basic metabolic panel (08/13/2025 8:06 PM CDT) Sodium 137 135 - 145 mmol/L Potassium, pl 4.4 3.3 - 4.9 mmol/L [facility] Chloride 95(L) 97 - 110 mmol/L [facility] CO2 33(H) 22 - 32 mmol/L [facility] Anion gap 9 2 - 15 mmol/L [facility] BUN 51(H) 6 - 25 mg/dL [facility] Creatinine 2.29(H) 0.80 - 1.30 mg/dL [facility] Glucose 133 70 - 199 mg/dL [facility] Comment: Interpretive Data Fasting glucose >/= 126 mg/dl is diagnostic for diabetes. Fasting is defined as no caloric intake for at least 8 hours. Fasting glucose between 100 mg/dl to 125 mg/dl is diagnostic of prediabetes. In a patient with classic symptoms of hyperglycemia or hyperglycemic crisis, a random glucose >/= 200 mg/dl is diagnostic for diabetes. In the absence of unequivocal hyperglycemia, results should be confirmed by repeat testing. The classification and Diagnosis of Diabetes Diabetes Care 202; 46: S19-S40. Current interpretive data was last revised 2022. Calcium 9.7 8.5 - 10.3 mg/dL [facility] Blood 08/13/2025 8:06 PM CDT 08/13/2025 8:50 PM CDT us Christelle Henley HAND SPINNER LAB BLOOD ORDERABLES Final R esult Performing Organization Address City/[facility]/ZIP Co de Phone Number [facility] Department [place] [address] * POCT glucose (08/13/2025 5:10 PM CDT) Glucose, POC 128 70 - 199 mg/dL Blood 08/13/2025 5:10 PM CDT 08/13/2025 5:10 PM CDT Washington Zaman MD LAB POCT ORDERABLES - DEVICE Final Result Performing Organization Address City/[facility] Co de Phone Number [facility] [place] [address] * POCT glucose (08/13/2025 12:03 PM CDT) Glucose, POC 175 70 - 199 mg/dL Blood 08/13/2025 12:0 3 PM CDT 08/13/2025 12:03 PM CDT Washington Zaman MD LAB POCT ORDERABLES - DEVICE Final Result Performing Organization Address City/[facility] Co de Phone Number [facility] [place] [address] * POCT glucose (08/13/2025 8:18 AM CDT) [facility] Glucose, POC 131 70 - 199 mg/dL Blood 08/13/2025 8:18 AM CDT 08/13/2025 8:18 AM CDT Washington Zaman MD LAB POCT ORDERABLES - DEVICE Final Result Performing Organization Address [facility] Co de Phone Number DAMIAN [facility] Department [place] [address] * (ABNORMAL) eGFR (08/12/2025 9:35 PM CDT) [facility] eGFR 31(L) >=60 mL/min/1. 73 m2 Comment: Interpretive Data Reference Interval Normal >/= 90 mL/min/1.73m2 Mildly decreased* 60 - 89 mL/min/1.73m2 Mildly to moderately decreased 45 - 59 mL/min/1.73m2 Moderately to severely decreased 30 - 44 mL/min/1.73m2 Severely decreased 15 - 29 mL/min/1.73m2 Kidney Failure < 15 mL/min/1.73m2 *Relative to young adult level Estimated glomerular filtration rate is determined by the 2020 CKD-EPI equation recommended by the National Kidney Foundation (A Unifying Approach to GFR Estimation: Recommendations of the NKF-ASK Task Force on Reassessing the Inclusion of Race in Diagnosing Kidney Disease, JASN 202). The CKD-EPI equation should not be used for patients with unstable renal function and has not been validated in children and those over 70. Current interpretive data was last reviewed 2021. Blood 08/12/2025 9:35 PM CDT 08/12/2025 10:36 PM CDT us Christelle Henley NP LAB BLOOD ORDERABLES Final R esult [facility] Department of Laboratories [place], [place] [id number] * (ABNORMAL) CBC without differential (08/12/2025 9:35 PM CDT) WBC 8.72 3.80 - 9.90 K/cumm Hgb 8.6(L) 13.0 - 17.5 g/dL [facility] Hct 27.5(L) 38.9 - 50.3 % [facility] Plt 314 150 - 400 K/cumm [facility] MPV 10.1 9.1 - 12.3 fL [facility] RBC 3.22(L) 4.30 - 5.80 M/cumm [facility] MCV 85.4 81.3 - 96.4 fL [facility] MCH 26.7(L) 27.1 - 33.3 pg [facility] MCHC 31.3(L) 32.3 - 35.7 g/dL [facility] RDW CV 14.4 11.1 - 14.9 % [facility] RDW SD 45.1 35.7 - 48.1 fL [facility] NRBC abs 0.00 0.00 - 0.01 K/cumm [facility] Blood 08/12/2025 9:35 PM CDT 08/12/2025 10:51 PM CDT Christelle Henley NP LAB BLOOD ORDERABLES Final R esult Performing Organization Address City/[facility] Co de Phone Number [facility] [place] [address] * (ABNORMAL) Phosphorus (08/12/2025 9:35 PM CDT) [facility] Phosphorus, pl 5.8(H) 2.3 - 4.5 mg/dL Blood 08/12/2025 9:35 PM CDT 08/12/2025 10:36 PM CDT us Christelle Henley HAND SPINNER LAB BLOOD ORDERABLES Final R esult Performing Organization Address [facility] Co de Phone Number [facility] Department [place] [address] * Magnesium (08/12/2025 9:35 PM CDT) [facility] Magnesium 1.9 1.4 - 2.5 mg/dL Blood 08/12/2025 9:35 PM CDT 08/12/2025 10:36 PM CDT us Mami Garza HAND SPINNER LAB BLOOD ORDERABLES Final Resul t Performing Organization Address [facility] Co de Phone Number [facility] Department [place] [address] * (ABNORMAL) Basic metabolic panel (08/12/2025 9:35 PM CDT) [facility] Sodium 137 135 - 145 mmol/L Potassium, pl 4.7 3.3 - 4.9 mmol/L [facility] Chloride 93(L) 97 - 110 mmol/L [facility] CO2 35(H) 22 - 32 mmol/L [facility] Anion gap 9 2 - 15 mmol/L [facility] BUN 49(H) 6 - 25 mg/dL [facility] Creatinine 2.10(H) 0.80 - 1.30 mg/dL [facility] Glucose 149 70 - 199 mg/dL [facility] Comment: Interpretive Data Fasting glucose >/= 126 mg/dl is diagnostic for diabetes. Fasting is defined as no caloric intake for at least 8 hours. Fasting glucose between 100 mg/dl to 125 mg/dl is diagnostic of prediabetes. In a patient with classic symptoms of hyperglycemia or hyperglycemic crisis, a random glucose >/= 200 mg/dl is diagnostic for diabetes. In the absence of unequivocal hyperglycemia, results should be confirmed by repeat testing. The classification and Diagnosis of Diabetes Diabetes Care 2021; 46: S19-S40. Current interpretive data was last revised 2022. Calcium 9.9 8.5 - 10.3 mg/dL [facility] Blood 08/12/2025 9:35 PM CDT 08/12/2025 10:36 PM CDT Christelle Henley HAND SPINNER LAB BLOOD ORDERABLES Final R esult Performing Organization Address [facility] Co de Phone Number [facility] Department [place] [address] * POCT glucose (08/12/2025 8:11 PM CDT) Glucose, POC 170 70 - 199 mg/dL Blood 08/12/2025 8:11 PM CDT 08/12/2025 8:11 PM CDT Wasihngton Zaman MD LAB POCT ORDERABLES - DEVICE Final Result Performing Organization Address City/[facility] Co de Phone Number [facility] Department [place] [address] * POCT glucose (08/12/2025 4:40 PM CDT) Glucose, POC 158 70 - 199 mg/dL Blood 08/12/2025 4:40 PM CDT 08/12/2025 4:40 PM CDT Washington Zaman MD LAB POCT ORDERABLES - DEVICE Final Result [facility] [place] [address] * XR Chest Pa Lateral 2 Views (08/12/2025 3:01 PM CDT) Anatomical Region Laterality Modality Body, Chest N/A Computed Radiogr aphy 08/13/2025 9:41 AM CDT Impressions 08/13/2025 10:43 AM CDT Comparison dated 08/11/2025. Patient is status post median sternotomy with stable positioning of sternotomy plates and screws, left atrial appendage occlusion device, and aortic valve replacement. Increased mild bibasilar atelectasis. Increased small right pleural effusion. No significant change in small to moderate left pleural effusion with mild associated atelectasis. No pneumothorax. Stable cardiomediastinal silhouette. Dictated by: King Nicolas M.D. The radiology attending physician has personally reviewed this study, and had reviewed and/or edited this written report and agrees with it. Electronically signed by: Rosa Isela Wood M.D. Narrative 08/13/2025 10:43 AM CDT EXAMINATION: 2 view chest radiograph Procedure Note Rosa Isela Wood MD - 08/13/2025 EXAMINATION: 2 view chest radiograph IMPRESSION: Comparison dated 08/11/2025. Patient is status post median sternotomy with stable positioning of sternotomy plates and screws, left atrial appendage occlusion device, and aortic valve replacement. Increased mild bibasilar atelectasis. Increased small right pleural effusion. No significant change in small to moderate left pleural effusion with mild associated atelectasis. No pneumothorax. Stable cardiomediastinal silhouette. Dictated by: King Nicolas M.D. The radiology attending physician has personally reviewed this study, and had reviewed and/or edited this written report and agrees with it. Electronically signed by: Rosa Isela Wood M.D. Mami Garza NP IMG XR PROCEDURES Final Result * ECG 12 lead (08/12/2025 12:47 PM CDT) [facility] Ventricular Rate EKG/Min 57 BPM [facility] Atrial Rate 57 BPM [facility] GA-Interval (MSEC) 254 ms [facility] QRS-Interval (MSEC) 114 ms [facility] QT-Interval (MSEC) 482 ms [facility] QTc 469 ms [facility] P Homer 44 degrees [facility] R Homer -56 degrees [facility] T Homer 65 degrees [facility] Diagnosis Sinus bradycardia with 1st degree A-V block Left axis deviation Incomplete right bundle branch block Cannot rule out Anterior infarct , age undetermined Abnormal ECG Confirmed by Janene Marie MD ([id number]) on 08/13/2025 6:16:09 PM [facility] 08/12/2025 12:4 7 PM CDT 08/13/2025 6:16 PM CDT us Christelle Henley HAND SPINNER ECG ORDERABLES Final Result Performing Organization Address [facility] Co de Phone Number [facility] * POCT glucose (08/12/2025 11:11 AM CDT) Glucose, POC 180 70 - 199 mg/dL Blood 08/12/2025 11:1 1 AM CDT 08/12/2025 11:11 AM CDT Washington Zaman MD LAB POCT ORDERABLES - DEVICE Final Result Performing Organization Address [facility] Co de Phone Number [facility] Department [place] [address] * POCT glucose (08/12/2025 7:29 AM CDT) Glucose, POC 153 70 - 199 mg/dL Blood 08/12/2025 7:29 AM CDT 08/12/2025 7:29 AM CDT Washington Zaman MD LAB POCT ORDERABLES - DEVICE Final Result Performing Organization Address City/[facility] de Phone Number [facility] [place] [address] * (ABNORMAL) eGFR (08/11/2025 9:08 PM CDT) Pathologist [facility] eGFR 34(L) >=60 mL/min/1. 73 m2 Comment: Interpretive Data Reference Interval Normal >/= 90 mL/min/1.73m2 Mildly decreased* 60 - 89 mL/min/1.73m2 Mildly to moderately decreased 45 - 59 mL/min/1.73m2 Moderately to severely decreased 30 - 44 mL/min/1.73m2 Severely decreased 15 - 29 mL/min/1.73m2 Kidney Failure < 15 mL/min/1.73m2 *Relative to young adult level Estimated glomerular filtration rate is determined by the 2020 CKD-EPI equation recommended by the National Kidney Foundation (A Unifying Approach to GFR Estimation: Recommendations of the NKF-ASK Task Force on Reassessing the Inclusion of Race in Diagnosing Kidney Disease, JASN 2020). The CKD-EPI equation should not be used for patients with unstable renal function and has not been validated in children and those over 70. Current interpretive data was last reviewed 2021. Blood 08/11/2025 9:08 PM CDT 08/11/2025 9:43 PM CDT us Christelle Henley HAND SPINNER LAB BLOOD ORDERABLES Final R esult Performing Organization Address [facility] de Phone Number [facility] [place] [address] * (ABNORMAL) CBC without differential (08/11/2025 9:08 PM CDT) [facility] WBC 7.04 3.80 - 9.90 K/cumm Hgb 8.3(L) 13.0 - 17.5 g/dL [facility] Hct 25.5(L) 38.9 - 50.3 % [facility] Plt 275 150 - 400 K/cumm [facility] MPV 9.7 9.1 - 12.3 fL [facility] RBC 3.02(L) 4.30 - 5.80 M/cumm [facility] MCV 84.4 81.3 - 96.4 fL [facility] MCH 27.5 27.1 - 33.3 pg [facility] MCHC 32.5 32.3 - 35.7 g/dL [facility] RDW CV 14.6 11.1 - 14.9 % [facility] RDW SD 44.7 35.7 - 48.1 fL [facility] NRBC abs 0.00 0.00 - 0.01 K/cumm [facility] Blood 08/11/2025 9:08 PM CDT 08/11/2025 9:44 PM CDT Christelle Henley HAND SPINNER LAB BLOOD ORDERABLES Final R esult Performing Organization Address [facility]/ZIP Co de Phone Number [facility] Department of [employer] [place] [address] * Type and screen (08/11/2025 9:08 PM CDT) ABO Rh O Positive Cedric, indirect Negative [facility] Blood 08/11/2025 9:08 PM CDT 08/11/2025 9:49 PM CDT Narrative [facility] - 08/11/2025 10:41 PM CDT Has the patient had Daratumumab or Isatuximab in the past 6 months?->Unknown Nina Mireles HAND SPINNER LAB BLOOD BANK TEST ORDERA BLES Final Result [facility] of [employer] [place] [address] * (ABNORMAL) Phosphorus (08/11/2025 9:08 PM CDT) Phosphorus, pl 5.7(H) 2.3 - 4.5 mg/dL Blood 08/11/2025 9:08 PM CDT 08/11/2025 9:43 PM CDT us Christelle Henley HAND SPINNER LAB BLOOD ORDERABLES Final R esult Performing Organization Address City/[facility]/ZIP Co de Phone Number [facility] Department [place] [address] * Magnesium (08/11/2025 9:08 PM CDT) Pathologist [facility] Magnesium 1.8 1.4 - 2.5 mg/dL Blood 08/11/2025 9:08 PM CDT 08/11/2025 9:43 PM CDT us Mami Garza HAND SPINNER LAB BLOOD ORDERABLES Final Resul t Performing Organization Address [facility] Co de Phone Number [facility] [place] [address] * (ABNORMAL) Basic metabolic panel (08/11/2025 9:08 PM CDT) [facility] Sodium 136 135 - 145 mmol/L Potassium, pl 4.7 3.3 - 4.9 mmol/L [facility] Chloride 93(L) 97 - 110 mmol/L [facility] CO2 34(H) 22 - 32 mmol/L [facility] Anion gap 9 2 - 15 mmol/L [facility] BUN 47(H) 6 - 25 mg/dL [facility] Creatinine 1.96(H) 0.80 - 1.30 mg/dL [facility] Glucose 171 70 - 199 mg/dL [facility] Comment: Interpretive Data Fasting glucose >/= 126 mg/dl is diagnostic for diabetes. Fasting is defined as no caloric intake for at least 8 hours. Fasting glucose between 100 mg/dl to 125 mg/dl is diagnostic of prediabetes. In a patient with classic symptoms of hyperglycemia or hyperglycemic crisis, a random glucose >/= 200 mg/dl is diagnostic for diabetes. In the absence of unequivocal hyperglycemia, results should be confirmed by repeat testing. The classification and Diagnosis of Diabetes Diabetes Care 2021; 46: S19-S40. Current interpretive data was last revised 2022. Calcium 9.7 8.5 - 10.3 mg/dL [facility] Blood 08/11/2025 9:08 PM CDT 08/11/2025 9:43 PM CDT us Christelle Henley HAND SPINNER LAB BLOOD ORDERABLES Final R esult Performing Organization Address City/[facility] Co de Phone Number [facility] of [employer] [place] [address] * POCT glucose (08/11/2025 9:05 PM CDT) Glucose, POC 186 70 - 199 mg/dL Blood 08/11/2025 9:05 PM CDT 08/11/2025 9:05 PM CDT Washington Zaman MD LAB POCT ORDERABLES - DEVICE Final Result Performing Organization Address City/[facility] Co de Phone Number [facility] [employer] [place] [address] * POCT glucose (08/11/2025 8:38 PM CDT) Glucose, POC 182 70 - 199 mg/dL Blood 08/11/2025 8:38 PM CDT 08/11/2025 8:38 PM CDT Washington Zaman MD LAB POCT ORDERABLES - DEVICE Final Result Performing Organization Address City/[facility] Co de Phone Number [facility] [employer] [place] [address] * POCT glucose (08/11/2025 5:18 PM CDT) Glucose, POC 164 70 - 199 mg/dL Blood 08/11/2025 5:18 PM CDT 08/11/2025 5:18 PM CDT Washington Zaman MD LAB POCT ORDERABLES - DEVICE Final Result Performing Organization Address [facility] de Phone Number [facility] of [employer] [place] [address] * POCT glucose (08/11/2025 11:48 AM CDT) Glucose, POC 198 70 - 199 mg/dL Blood 08/11/2025 11:4 8 AM CDT 08/11/2025 11:48 AM CDT Washington Zaman MD LAB POCT ORDERABLES - DEVICE Final Result Performing Organization Address [facility] de Phone Number [facility] [employer] [place] [address] * POCT glucose (08/11/2025 7:42 AM CDT) Glucose, POC 131 70 - 199 mg/dL Blood 08/11/2025 7:42 AM CDT 08/11/2025 7:42 AM CDT Washington Zaman MD LAB POCT ORDERABLES - DEVICE Final Result Performing Organization Address [facility] de Phone Number [facility] of [employer] [place] [address] * (ABNORMAL) eGFR (08/10/2025 9:13 PM CDT) eGFR 43(L) >=60 mL/min/1. 73 m2 Comment: Interpretive Data Reference Interval Normal >/= 90 mL/min/1.73m2 Mildly decreased* 60 - 89 mL/min/1.73m2 Mildly to moderately decreased 45 - 59 mL/min/1.73m2 Moderately to severely decreased 30 - 44 mL/min/1.73m2 Severely decreased 15 - 29 mL/min/1.73m2 Kidney Failure < 15 mL/min/1.73m2 *Relative to young adult level Estimated glomerular filtration rate is determined by the 2020 CKD-EPI equation recommended by the National Kidney Foundation (A Unifying Approach to GFR Estimation: Recommendations of the NKF-ASK Task Force on Reassessing the Inclusion of Race in Diagnosing Kidney Disease, JASN 2020). The CKD-EPI equation should not be used for patients with unstable renal function and has not been validated in children and those over 70. Current interpretive data was last reviewed 2021. Blood 08/10/2025 9:13 PM CDT 08/10/2025 9:57 PM CDT us Christelle Henley HAND SPINNER LAB BLOOD ORDERABLES Final R esult [facility] Department [place] [address] * (ABNORMAL) CBC without differential (08/10/2025 9:13 PM CDT) WBC 7.60 3.80 - 9.90 K/cumm Hgb 8.8(L) 13.0 - 17.5 g/dL [facility] Hct 28.1(L) 38.9 - 50.3 % [facility] Plt 290 150 - 400 K/cumm [facility] MPV 9.8 9.1 - 12.3 fL [facility] RBC 3.29(L) 4.30 - 5.80 M/cumm [facility] MCV 85.4 81.3 - 96.4 fL [facility] MCH 26.7(L) 27.1 - 33.3 pg [facility] MCHC 31.3(L) 32.3 - 35.7 g/dL [facility] RDW CV 14.5 11.1 - 14.9 % [facility] RDW SD 44.9 35.7 - 48.1 fL [facility] NRBC abs 0.00 0.00 - 0.01 K/cumm [facility] Blood 08/10/2025 9:13 PM CDT 08/10/2025 9:57 PM CDT Christelle Henley HAND SPINNER LAB BLOOD ORDERABLES Final R esult [facility] [place] [address] * (ABNORMAL) Phosphorus (08/10/2025 9:13 PM CDT) Pathologist [facility] Phosphorus, pl 5.0(H) 2.3 - 4.5 mg/dL Blood 08/10/2025 9:13 PM CDT 08/10/2025 9:57 PM CDT Christelle Henley HAND SPINNER LAB BLOOD ORDERABLES Final R ult Performing Organization Address [facility] Co de Phone Number [facility] [place] [address] * (ABNORMAL) Basic metabolic panel (08/10/2025 9:13 PM CDT) Pathologist [facility] Sodium 136 135 - 145 mmol/L Potassium, pl 4.7 3.3 - 4.9 mmol/L [facility] Chloride 94(L) 97 - 110 mmol/L [facility] CO2 36(H) 22 - 32 mmol/L [facility] Anion gap 6 2 - 15 mmol/L [facility] BUN 43(H) 6 - 25 mg/dL [facility] Creatinine 1.60(H) 0.80 - 1.30 mg/dL [facility] Glucose 142 70 - 199 mg/dL [facility] Comment: Interpretive Data Fasting glucose >/= 126 mg/dl is diagnostic for diabetes. Fasting is defined as no caloric intake for at least 8 hours. Fasting glucose between 100 mg/dl to 125 mg/dl is diagnostic of prediabetes. In a patient with classic symptoms of hyperglycemia or hyperglycemic crisis, a random glucose >/= 200 mg/dl is diagnostic for diabetes. In the absence of unequivocal hyperglycemia, results should be confirmed by repeat testing. The classification and Diagnosis of Diabetes Diabetes Care 202; 46: S19-S40. Current interpretive data was last revised 2022. Calcium 10.0 8.5 - 10.3 mg/dL [facility] Blood 08/10/2025 9:13 PM CDT 08/10/2025 9:57 PM CDT us Christelle Henley HAND SPINNER LAB BLOOD ORDERABLES Final R esult Performing Organization Address [facility] Co de Phone Number [facility] of [employer] [place] [address] * POCT glucose (08/10/2025 7:38 PM CDT) Glucose, POC 160 70 - 199 mg/dL Blood 08/10/2025 7:38 PM CDT 08/10/2025 7:38 PM CDT Washington Zaman MD LAB POCT ORDERABLES - DEVICE Final Result Performing Organization Address [facility] Co de Phone Number [facility] [employer] [place] [address] * POCT glucose (08/10/2025 5:17 PM CDT) Glucose, POC 155 70 - 199 mg/dL Blood 08/10/2025 5:17 PM CDT 08/10/2025 5:17 PM CDT Washington Zaman MD LAB POCT ORDERABLES - DEVICE Final Result Performing Organization Address [facility] Co de Phone Number [facility] [employer] [place] [address] * (ABNORMAL) POCT glucose (08/10/2025 11:11 AM CDT) Glucose, POC 204(H) 70 - 199 mg/dL Blood 08/10/2025 11:1 1 AM CDT 08/10/2025 11:11 AM CDT us Washington Zaman MD LAB POCT ORDERABLES - DEVICE Final Result [facility] [place] [address] * POCT glucose (08/10/2025 7:56 AM CDT) Glucose, POC 174 70 - 199 mg/dL Blood 08/10/2025 7:56 AM CDT 08/10/2025 7:56 AM CDT Washington Zaman MD LAB POCT ORDERABLES - DEVICE Final Result Performing Organization Address [facility] Co de Phone Number [facility] [place] [address] * (ABNORMAL) eGFR (08/09/2025 9:56 PM CDT) eGFR 47(L) >=60 mL/min/1. 73 m2 Comment: Interpretive Data Reference Interval Normal >/= 90 mL/min/1.73m2 Mildly decreased* 60 - 89 mL/min/1.73m2 Mildly to moderately decreased 45 - 59 mL/min/1.73m2 Moderately to severely decreased 30 - 44 mL/min/1.73m2 Severely decreased 15 - 29 mL/min/1.73m2 Kidney Failure < 15 mL/min/1.73m2 *Relative to young adult level Estimated glomerular filtration rate is determined by the 2020 CKD-EPI equation recommended by the National Kidney Foundation (A Unifying Approach to GFR Estimation: Recommendations of the NKF-ASK Task Force on Reassessing the Inclusion of Race in Diagnosing Kidney Disease, JASN 2020). The CKD-EPI equation should not be used for patients with unstable renal function and has not been validated in children and those over 70. Current interpretive data was last reviewed 2021. Blood 08/09/2025 9:56 PM CDT 08/09/2025 10:55 PM CDT Christelle Henley HAND SPINNER LAB BLOOD ORDERABLES Final R esult [facility] Department of [employer] [place] [address] * (ABNORMAL) CBC without differential (08/09/2025 9:56 PM CDT) Pathologist [facility] WBC 7.92 3.80 - 9.90 K/cumm Hgb 8.4(L) 13.0 - 17.5 g/dL [facility] Hct 27.5(L) 38.9 - 50.3 % [facility] Plt 251 150 - 400 K/cumm [facility] MPV 10.2 9.1 - 12.3 fL [facility] RBC 3.13(L) 4.30 - 5.80 M/cumm [facility] MCV 87.9 81.3 - 96.4 fL [facility] MCH 26.8(L) 27.1 - 33.3 pg [facility] MCHC 30.5(L) 32.3 - 35.7 g/dL [facility] RDW CV 14.5 11.1 - 14.9 % [facility] RDW SD 46.2 35.7 - 48.1 fL [facility] NRBC abs 0.00 0.00 - 0.01 K/cumm [facility] Blood 08/09/2025 9:56 PM CDT 08/09/2025 10:56 PM CDT us Christelle Henley HAND SPINNER LAB BLOOD ORDERABLES Final R esult [facility] of [employer] [place] [address] * Phosphorus (08/09/2025 9:56 PM CDT) Pathologist [facility] Phosphorus, pl 3.8 2.3 - 4.5 mg/dL Blood 08/09/2025 9:56 PM CDT 08/09/2025 10:55 PM CDT Christelle Henley HAND SPINNER LAB BLOOD ORDERABLES Final R esult Performing Organization Address City/[facility]/ZIP Co de Phone Number [facility] Department [place] [address] * (ABNORMAL) Basic metabolic panel (08/09/2025 9:56 PM CDT) [facility] Sodium 141 135 - 145 mmol/L Potassium, pl 4.9 3.3 - 4.9 mmol/L [facility] Chloride 99 97 - 110 mmol/L [facility] CO2 36(H) 22 - 32 mmol/L [facility] Anion gap 6 2 - 15 mmol/L [facility] BUN 42(H) 6 - 25 mg/dL [facility] Creatinine 1.49(H) 0.80 - 1.30 mg/dL [facility] Glucose 202(H) 70 - 199 mg/dL [facility] Comment: Interpretive Data Fasting glucose >/= 126 mg/dl is diagnostic for diabetes. Fasting is defined as no caloric intake for at least 8 hours. Fasting glucose between 100 mg/dl to 125 mg/dl is diagnostic of prediabetes. In a patient with classic symptoms of hyperglycemia or hyperglycemic crisis, a random glucose >/= 200 mg/dl is diagnostic for diabetes. In the absence of unequivocal hyperglycemia, results should be confirmed by repeat testing. The classification and Diagnosis of Diabetes Diabetes Care 2021; 46: S19-S40. Current interpretive data was last revised 2022. Calcium 9.6 8.5 - 10.3 mg/dL [facility] Blood 08/09/2025 9:56 PM CDT 08/09/2025 10:55 PM CDT us Christelle Henley HAND SPINNER LAB BLOOD ORDERABLES Final R esult Performing Organization Address [facility]/ZIP Co de Phone Number [facility] Department [place] [address] * (ABNORMAL) POCT glucose (08/09/2025 9:34 PM CDT) Glucose, POC 215(H) 70 - 199 mg/dL Blood 08/09/2025 9:34 PM CDT 08/09/2025 9:34 PM CDT Washington Zaman MD LAB POCT ORDERABLES - DEVICE Final Result Performing Organization Address [facility] Co de Phone Number [facility] [employer] [place] [address] * (ABNORMAL) POCT glucose (08/09/2025 7:49 PM CDT) Glucose, POC 215(H) 70 - 199 mg/dL Comment:Glu2: RN/MD Notified Glucose comment 1 Glu2: RN/MD Notified [facility] Blood 08/09/2025 7:49 PM CDT 08/09/2025 7:49 PM CDT Washington Zaman MD LAB POCT ORDERABLES - DEVICE Final Result Performing Organization Address [facility] de Phone Number [facility] [employer] [place] [address] * POCT glucose (08/09/2025 5:18 PM CDT) Glucose, POC 166 70 - 199 mg/dL Blood 08/09/2025 5:18 PM CDT 08/09/2025 5:18 PM CDT Washington Zaman MD LAB POCT ORDERABLES - DEVICE Final Result Performing Organization Address [facility] Co de Phone Number [facility] [place] [address] * POCT glucose (08/09/2025 11:29 AM CDT) Glucose, POC 179 70 - 199 mg/dL Blood 08/09/2025 11:2 9 AM CDT 08/09/2025 11:29 AM CDT us Washington Zaman MD LAB POCT ORDERABLES - DEVICE Final Result Performing Organization Address [facility] de Phone Number [facility] [employer] [place] [address] * POCT glucose (08/09/2025 7:12 AM CDT) Glucose, POC 180 70 - 199 mg/dL Blood 08/09/2025 7:12 AM CDT 08/09/2025 7:12 AM CDT us Washington Zaman MD LAB POCT ORDERABLES - DEVICE Final Result Performing Organization Address [facility] de Phone Number [facility] [employer] [place] [address] * POCT glucose (08/08/2025 7:59 PM CDT) [facility] Glucose, POC 189 70 - 199 mg/dL Blood 08/08/2025 7:59 PM CDT 08/08/2025 7:59 PM CDT Washington Zaman MD LAB POCT ORDERABLES - DEVICE Final Result Performing Organization Address [facility] de Phone Number [facility] [employer] [place] [address] * (ABNORMAL) eGFR (08/08/2025 6:41 PM CDT) [facility] eGFR 49(L) >=60 mL/min/1. 73 m2 Comment: Interpretive Data Reference Interval Normal >/= 90 mL/min/1.73m2 Mildly decreased* 60 - 89 mL/min/1.73m2 Mildly to moderately decreased 45 - 59 mL/min/1.73m2 Moderately to severely decreased 30 - 44 mL/min/1.73m2 Severely decreased 15 - 29 mL/min/1.73m2 Kidney Failure < 15 mL/min/1.73m2 *Relative to young adult level Estimated glomerular filtration rate is determined by the 2020 CKD-EPI equation recommended by the National Kidney Foundation (A Unifying Approach to GFR Estimation: Recommendations of the NKF-ASK Task Force on Reassessing the Inclusion of Race in Diagnosing Kidney Disease, JASN 2020). The CKD-EPI equation should not be used for patients with unstable renal function and has not been validated in children and those over 70. Current interpretive data was last reviewed 2021. Blood 08/08/2025 6:41 PM CDT 08/08/2025 7:08 PM CDT us Christelle Henley NP LAB BLOOD ORDERABLES Final R esult [facility] Department [place] [address] * (ABNORMAL) aPTT (08/08/2025 6:41 PM CDT) aPTT 58(H) 26 - 38 sec Comment: Interpretive Data Heparin therapeutic range: 66.0 - 100.0 seconds. Range based on correlation with therapeutic heparin activity range of 0.3 - 0.7 Units/mL. Current interpretive data was last revised on 2023. Blood 08/08/2025 6:41 PM CDT 08/08/2025 7:27 PM CDT Narrative [facility] [facility] - 08/08/2025 7:35 PM CDT Draw STAT PTT 2 hours after initiation of bivalirudin infusion, draw STAT PTT 2 hours after each dose change, and every 2 hours until 2 consecutive PTTs are within therapeutic range. Once two consecutive PTTs are therapeutic (50-80 seconds), then draw PTT every AM until bivalirudin is discontinued. us Eula Blakely HAND SPINNER LAB BLOOD ORDERABLES Tami l Result Performing Organization Address [facility] de Phone Number [facility] Department [place] [address] * (ABNORMAL) CBC without differential (08/08/2025 6:41 PM CDT) [facility] WBC 8.34 3.80 - 9.90 K/cumm Hgb 8.7(L) 13.0 - 17.5 g/dL [facility] Hct 27.9(L) 38.9 - 50.3 % [facility] Plt 259 150 - 400 K/cumm [facility] MPV 9.9 9.1 - 12.3 fL [facility] RBC 3.20(L) 4.30 - 5.80 M/cumm [facility] MCV 87.2 81.3 - 96.4 fL [facility] MCH 27.2 27.1 - 33.3 pg [facility] MCHC 31.2(L) 32.3 - 35.7 g/dL [facility] RDW CV 14.6 11.1 - 14.9 % [facility] RDW SD 47.2 35.7 - 48.1 fL [facility] NRBC abs 0.00 0.00 - 0.01 K/cumm [facility] Blood 08/08/2025 6:41 PM CDT 08/08/2025 7:08 PM CDT us Christelle Henley HAND SPINNER LAB BLOOD ORDERABLES Final R esult Performing Organization Address [facility] Co de Phone Number [facility] Department [place] [address] * Phosphorus (08/08/2025 6:41 PM CDT) [facility] Phosphorus, pl 4.2 2.3 - 4.5 mg/dL Blood 08/08/2025 6:41 PM CDT 08/08/2025 7:08 PM CDT us Christelle Henley HAND SPINNER LAB BLOOD ORDERABLES Final R esult Performing Organization Address City/[facility]/ZIP Co de Phone Number [facility] Department [place] [address] * Magnesium (08/08/2025 6:41 PM CDT) [facility] Magnesium 2.1 1.4 - 2.5 mg/dL Blood 08/08/2025 6:41 PM CDT 08/08/2025 7:08 PM CDT Brissa Wen HAND SPINNER LAB BLOOD ORDERABLES F inal Result Performing Organization Address [facility] Co de Phone Number [facility] Department [place] [address] * (ABNORMAL) Basic metabolic panel (08/08/2025 6:41 PM CDT) [facility] Sodium 138 135 - 145 mmol/L Potassium, pl 4.2 3.3 - 4.9 mmol/L [facility] Chloride 96(L) 97 - 110 mmol/L [facility] CO2 35(H) 22 - 32 mmol/L [facility] Anion gap 7 2 - 15 mmol/L [facility] BUN 43(H) 6 - 25 mg/dL [facility] Creatinine 1.43(H) 0.80 - 1.30 mg/dL [facility] Glucose 189 70 - 199 mg/dL [facility] Comment: Interpretive Data Fasting glucose >/= 126 mg/dl is diagnostic for diabetes. Fasting is defined as no caloric intake for at least 8 hours. Fasting glucose between 100 mg/dl to 125 mg/dl is diagnostic of prediabetes. In a patient with classic symptoms of hyperglycemia or hyperglycemic crisis, a random glucose >/= 200 mg/dl is diagnostic for diabetes. In the absence of unequivocal hyperglycemia, results should be confirmed by repeat testing. The classification and Diagnosis of Diabetes Diabetes Care 202; 46: S19-S40. Current interpretive data was last revised 2022. Calcium 9.3 8.5 - 10.3 mg/dL [facility] Blood 08/08/2025 6:41 PM CDT 08/08/2025 7:08 PM CDT us Christelle Henley HAND SPINNER LAB BLOOD ORDERABLES Final R esult DAMIAN [facility] Department [place] [address] * POCT glucose (08/08/2025 4:50 PM CDT) [facility] Signature Glucose, POC 168 70 - 199 mg/dL Blood 08/08/2025 4:50 PM CDT 08/08/2025 4:50 PM CDT us Washington Zaman MD LAB POCT ORDERABLES - DEVICE Final Result Performing Organization Address [facility] Co de Phone Number [facility] Department [place] [address] * XR Chest Pa Lateral 2 Views (08/08/2025 4:06 PM CDT) Anatomical Region Laterality Modality Body, Chest N/A Computed Radiogr aphy 08/09/2025 9:46 AM CDT Impressions 08/09/2025 12:53 PM CDT Comparison dated 08/05/2025. Chin overlies and partially obscures the chest on frontal view. Status post median sternotomy with plates and screws in stable positioning. Aortic valve replacement. Left atrial appendage exclusion device. Interval removal of right internal jugular central venous catheter and mediastinal drain. No right pulmonary consolidation or pleural effusion. Slightly increased opacity in left mid to lower hemithorax represents combination of effusion and atelectasis. There is no pneumothorax. Cardiac silhouette is partially obscured. Dictated by: King Nicolas M.D. The radiology attending physician has personally reviewed this study, and had reviewed and/or edited this written report and agrees with it. Electronically signed by: Rosa Isela Wood M.D. Narrative 08/09/2025 12:53 PM CDT EXAMINATION: 2 view chest radiograph Procedure Note Rosa Isela Wood MD - 08/09/2025 EXAMINATION: 2 view chest radiograph IMPRESSION: Comparison dated 08/05/2025. Chin overlies and partially obscures the chest on frontal view. Status post median sternotomy with plates and screws in stable positioning. Aortic valve replacement. Left atrial appendage exclusion device. Interval removal of right internal jugular central venous catheter and mediastinal drain. No right pulmonary consolidation or pleural effusion. Slightly increased opacity in left mid to lower hemithorax represents combination of effusion and atelectasis. There is no pneumothorax. Cardiac silhouette is partially obscured. Dictated by: King Nicolas M.D. The radiology attending physician has personally reviewed this study, and had reviewed and/or edited this written report and agrees with it. Electronically signed by: Rosa Isela Wood M.D. Brissa Wen HAND SPINNER IMG XR PROCEDURES Tami l Result * (ABNORMAL) aPTT (08/08/2025 3:19 PM CDT) aPTT 54(H) 26 - 38 sec Comment: Interpretive Data Heparin therapeutic range: 66.0 - 100.0 seconds. Range based on correlation with therapeutic heparin activity range of 0.3 - 0.7 Units/mL. Current interpretive data was last revised on 2023. Blood 08/08/2025 3:19 PM CDT 08/08/2025 4:02 PM CDT Davidson [facility] - 08/08/2025 4:12 PM CDT Draw STAT PTT 2 hours after initiation of bivalirudin infusion, draw STAT PTT 2 hours after each dose change, and every 2 hours until 2 consecutive PTTs are within therapeutic range. Once two consecutive PTTs are therapeutic (50-80 seconds), then draw PTT every AM until bivalirudin is discontinued. Eula Blakely NP LAB BLOOD ORDERABLES Tami l Result [facility] [place] [address] * POCT glucose (08/08/2025 11:54 AM CDT) Glucose, POC 182 70 - 199 mg/dL Blood 08/08/2025 11:5 4 AM CDT 08/08/2025 11:54 AM CDT Washington Zaman MD LAB POCT ORDERABLES - DEVICE Final Result Performing Organization Address [facility] [place] [address] * (ABNORMAL) POCT glucose (08/08/2025 11:09 AM CDT) Glucose, POC 224(H) 70 - 199 mg/dL Blood 08/08/2025 11:0 9 AM CDT 08/08/2025 11:09 AM CDT Washington Zaman MD LAB POCT ORDERABLES - DEVICE Final Result Performing Organization Address [facility] [place] [address] * (ABNORMAL) aPTT (08/08/2025 11:07 AM CDT) aPTT 48(H) 26 - 38 sec Comment: Interpretive Data Heparin therapeutic range: 66.0 - 100.0 seconds. Range based on correlation with therapeutic heparin activity range of 0.3 - 0.7 Units/mL. Current interpretive data was last revised on 2023. Blood 08/08/2025 11:0 7 AM CDT 08/08/2025 12:48 PM CDT Narrative [facility] - 08/08/2025 1:13 PM CDT Draw STAT PTT 2 hours after initiation of bivalirudin infusion, draw STAT PTT 2 hours after each dose change, and every 2 hours until 2 consecutive PTTs are within therapeutic range. Once two consecutive PTTs are therapeutic (50-80 seconds), then draw PTT every AM until bivalirudin is discontinued. us Eula Blakely NP LAB BLOOD ORDERABLES Tami l Result Performing Organization Address City/[facility]/ZIP Co de Phone Number [facility] [place] [address] * POCT glucose (08/08/2025 7:30 AM CDT) Glucose, POC 188 70 - 199 mg/dL Blood 08/08/2025 7:30 AM CDT 08/08/2025 7:30 AM CDT us Washington Zaman MD LAB POCT ORDERABLES - DEVICE Final Result Performing Organization Address [facility] Co de Phone Number [facility] Department [place] [address] * (ABNORMAL) eGFR (08/08/2025 12:08 AM CDT) [facility] eGFR 52(L) >=60 mL/min/1. 73 m2 Comment: Interpretive Data Reference Interval Normal >/= 90 mL/min/1.73m2 Mildly decreased* 60 - 89 mL/min/1.73m2 Mildly to moderately decreased 45 - 59 mL/min/1.73m2 Moderately to severely decreased 30 - 44 mL/min/1.73m2 Severely decreased 15 - 29 mL/min/1.73m2 Kidney Failure < 15 mL/min/1.73m2 *Relative to young adult level Estimated glomerular filtration rate is determined by the 2020 CKD-EPI equation recommended by the National Kidney Foundation (A Unifying Approach to GFR Estimation: Recommendations of the NKF-ASK Task Force on Reassessing the Inclusion of Race in Diagnosing Kidney Disease, JASN 2020). The CKD-EPI equation should not be used for patients with unstable renal function and has not been validated in children and those over 70. Current interpretive data was last reviewed 2021. Blood 08/08/2025 12:0 8 AM CDT 08/08/2025 12:49 AM CDT us Christelle Henley HAND SPINNER LAB BLOOD ORDERABLES Final R esult Performing Organization Address City/State/[facility] Co de Phone Number [facility] Department [place] [address] * (ABNORMAL) CBC without differential (08/08/2025 12:08 AM CDT) WBC 9.09 3.80 - 9.90 K/cumm Hgb 9.1(L) 13.0 - 17.5 g/dL [facility] Hct 28.7(L) 38.9 - 50.3 % [facility] Plt 244 150 - 400 K/cumm [facility] MPV 10.1 9.1 - 12.3 fL [facility] RBC 3.36(L) 4.30 - 5.80 M/cumm [facility] MCV 85.4 81.3 - 96.4 fL [facility] MCH 27.1 27.1 - 33.3 pg [facility] MCHC 31.7(L) 32.3 - 35.7 g/dL [facility] RDW CV 14.9 11.1 - 14.9 % [facility] RDW SD 46.3 35.7 - 48.1 fL [facility] NRBC abs 0.00 0.00 - 0.01 K/cumm [facility] Blood 08/08/2025 12:0 8 AM CDT 08/08/2025 12:49 AM CDT us Christelle Henley HAND SPINNER LAB BLOOD ORDERABLES Final R esult [facility] of [employer] [place] [address] * Type and screen (08/08/2025 12:08 AM CDT) ABO Rh O Positive Cedric, indirect Negative [facility] Blood 08/08/2025 12:0 8 AM CDT 08/08/2025 12:48 AM CDT Narrative [facility] - 08/08/2025 1:37 AM CDT Has the patient had Daratumumab or Isatuximab in the past 6 months?->Unknown Eula Blakely HAND SPINNER LAB BLOOD BANK TEST ORDER YANIQUE Final Result Performing Organization Address City/[facility] Co de Phone Number [facility] [place] [address] * Phosphorus (08/08/2025 12:08 AM CDT) Pathologist [facility] Phosphorus, pl 4.1 2.3 - 4.5 mg/dL Blood 08/08/2025 12:0 8 AM CDT 08/08/2025 12:49 AM CDT Christelle Henley NP LAB BLOOD ORDERABLES Final R esult Performing Organization Address [facility] Co de Phone Number [facility] [employer] [place] [address] * Magnesium (08/08/2025 12:08 AM CDT) Pathologist [facility] Magnesium 1.9 1.4 - 2.5 mg/dL Blood 08/08/2025 12:0 8 AM CDT 08/08/2025 12:49 AM CDT Christelle Henley NP LAB BLOOD ORDERABLES Final R esult Performing Organization Address City/[facility] Co de Phone Number [facility] [employer] [place] [address] * (ABNORMAL) Basic metabolic panel (08/08/2025 12:08 AM CDT) Sodium 140 135 - 145 mmol/L Potassium, pl 4.4 3.3 - 4.9 mmol/L [facility] Chloride 100 97 - 110 mmol/L [facility] CO2 34(H) 22 - 32 mmol/L [facility] Anion gap 6 2 - 15 mmol/L [facility] BUN 43(H) 6 - 25 mg/dL [facility] Creatinine 1.37(H) 0.80 - 1.30 mg/dL [facility] Glucose 139 70 - 199 mg/dL [facility] Comment: Interpretive Data Fasting glucose >/= 126 mg/dl is diagnostic for diabetes. Fasting is defined as no caloric intake for at least 8 hours. Fasting glucose between 100 mg/dl to 125 mg/dl is diagnostic of prediabetes. In a patient with classic symptoms of hyperglycemia or hyperglycemic crisis, a random glucose >/= 200 mg/dl is diagnostic for diabetes. In the absence of unequivocal hyperglycemia, results should be confirmed by repeat testing. The classification and Diagnosis of Diabetes Diabetes Care 2021; 46: S19-S40. Current interpretive data was last revised 2022. Calcium 9.6 8.5 - 10.3 mg/dL [facility] Blood 08/08/2025 12:0 8 AM CDT 08/08/2025 12:49 AM CDT us Christelle Henley NP LAB BLOOD ORDERABLES Final R esult Performing Organization Address City/[facility]/ZIP Co de Phone Number [facility] Department of [employer] [place] [address] * (ABNORMAL) POCT glucose (08/07/2025 7:40 PM CDT) [facility] Signature Glucose, POC 225(H) 70 - 199 mg/dL Blood 08/07/2025 7:40 PM CDT 08/07/2025 7:40 PM CDT us Washington Zaman MD LAB POCT ORDERABLES - DEVICE Final Result Performing Organization Address City/[facility]/ZIP Co de Phone Number [facility] Department of [employer] [place] [address] * Critical Care (08/07/2025 5:54 PM CDT) Narrative Som Sierra MD PhD - 08/07/2025 5:54 PM CDT Som Sierra MD PhD 08/08/2025 7:25 AM Critical Care Performed by: Eula Blakely NP Authorized by: Eula Blakely NP CRITICAL CARE: Team: 83 CTICU Shift: PM Level of Billing: Subsequent Hospital Visit Level 3 My time spent with this patient was 50 minutes: Critical Provider Statement: I have seen and examined the patient on this day of service. I have reviewed and confirmed the history, physical exam, laboratory, and radiographic data as documented in the ICU note. I have reviewed and discussed my treatment plan with the patient's team and other medical/organizational effectiveness consultant staff. This time was in addition to and separate from care provided by other practitioners on this day of service. I spent time reviewing and interpreting data from bedside monitors, laboratory results, and imaging, I spent time discussing the management of this critically ill patient with consultants and the medical staff and I spent time documenting in the medical record us Eula Blakely NP IN CLINIC/BEDSIDE ORDERAB LES Final Result * POCT glucose (08/07/2025 5:42 PM CDT) Glucose, POC 166 70 - 199 mg/dL Blood 08/07/2025 5:42 PM CDT 08/07/2025 5:42 PM CDT us Washington Zaman MD LAB POCT ORDERABLES - DEVICE Final Result [facility] Department [place] [address] * (ABNORMAL) aPTT (08/07/2025 2:10 PM CDT) aPTT 54(H) 26 - 38 sec Comment: Interpretive Data Heparin therapeutic range: 66.0 - 100.0 seconds. Range based on correlation with therapeutic heparin activity range of 0.3 - 0.7 Units/mL. Current interpretive data was last revised on 2023. Blood 08/07/2025 2:10 PM CDT 08/07/2025 2:41 PM CDT Narrative [facility] - 08/07/2025 2:51 PM CDT Draw STAT PTT 2 hours after initiation of bivalirudin infusion, draw STAT PTT 2 hours after each dose change, and every 2 hours until 2 consecutive PTTs are within therapeutic range. Once two consecutive PTTs are therapeutic (50-80 seconds), then draw PTT every AM until bivalirudin is discontinued. Eula Blakely NP LAB BLOOD ORDERABLES Tami l Result Performing Organization Address City/[facility] Co de Phone Number [facility] [employer] [place] [address] * Potassium, whole blood (08/07/2025 11:49 AM CDT) Potassium, bld 3.9 3.3 - 4.9 mmol/L Blood 08/07/2025 11:4 9 AM CDT 08/07/2025 11:58 AM CDT Eula Blakely NP LAB BLOOD ORDERABLES Tami l Result Performing Organization Address [facility] Co de Phone Number [facility] of [employer] [place] [address] * POCT glucose (08/07/2025 11:49 AM CDT) Glucose, POC 184 70 - 199 mg/dL Blood 08/07/2025 11:4 9 AM CDT 08/07/2025 11:49 AM CDT Washington Zaman MD LAB POCT ORDERABLES - DEVICE Final Result Performing Organization Address [facility] Co de Phone Number [facility] [employer] [place] [address] * (ABNORMAL) aPTT (08/07/2025 11:49 AM CDT) aPTT 53(H) 26 - 38 sec Comment: Interpretive Data Heparin therapeutic range: 66.0 - 100.0 seconds. Range based on correlation with therapeutic heparin activity range of 0.3 - 0.7 Units/mL. Current interpretive data was last revised on 2023. Blood 08/07/2025 11:4 9 AM CDT 08/07/2025 12:13 PM CDT Narrative [facility] 08/07/2025 12:37 PM CDT Draw STAT PTT 2 hours after initiation of bivalirudin infusion, draw STAT PTT 2 hours after each dose change, and every 2 hours until 2 consecutive PTTs are within therapeutic range. Once two consecutive PTTs are therapeutic (50-80 seconds), then draw PTT every AM until bivalirudin is discontinued. Eula Blakely HAND SPINNER LAB BLOOD ORDERABLES Tami l Result [facility] Department [place] [address] * (ABNORMAL) aPTT (08/07/2025 7:57 AM CDT) aPTT 47(H) 26 - 38 sec Comment: Interpretive Data Heparin therapeutic range: 66.0 - 100.0 seconds. Range based on correlation with therapeutic heparin activity range of 0.3 - 0.7 Units/mL. Current interpretive data was last revised on 2023. Blood 08/07/2025 7:57 AM CDT 08/07/2025 8:14 AM CDT Narrative [facility] - 08/07/2025 8:46 AM CDT Draw STAT PTT 2 hours after initiation of bivalirudin infusion, draw STAT PTT 2 hours after each dose change, and every 2 hours until 2 consecutive PTTs are within therapeutic range. Once two consecutive PTTs are therapeutic (50-80 seconds), then draw PTT every AM until bivalirudin is discontinued. us Eula Blakely NP LAB BLOOD ORDERABLES Tami l Result Performing Organization Address [facility]/ZIP Co de Phone Number [facility] [place] [address] * (ABNORMAL) POCT glucose (08/07/2025 7:56 AM CDT) Glucose, POC 223(H) 70 - 199 mg/dL Blood 08/07/2025 7:56 AM CDT 08/07/2025 7:56 AM CDT Washington Zaman MD LAB POCT ORDERABLES - DEVICE Final Result Performing Organization Address [facility] Co de Phone Number [facility] Department [place] [address] * Critical Care (08/07/2025 7:23 AM CDT) Narrative Som Sierra MD PhD - 08/07/2025 7:23 AM CDT Som Sierra MD PhD 08/08/2025 7:24 AM Critical Care Performed by: Peri Moscoso NP Authorized by: Peri Moscoso NP CRITICAL CARE: Team: 83 CTICU Shift: AM Level of Billing: Subsequent Hospital Visit Level 3 My time spent with this patient was 60 minutes: Critical Provider Statement: I have seen and examined the patient on this day of service. I have reviewed and confirmed the history, physical exam, laboratory, and radiographic data as documented in the ICU note. I have reviewed and discussed my treatment plan with the patient's team and other medical/organizational effectiveness consultant staff. This time was in addition to and separate from care provided by other practitioners on this day of service. us Peri Moscoso HAND SPINNER IN CLINIC/BEDSIDE ORDERA BLES Final Result * (ABNORMAL) aPTT (08/07/2025 5:50 AM CDT) aPTT 50(H) 26 - 38 sec Comment: Interpretive Data Heparin therapeutic range: 66.0 - 100.0 seconds. Range based on correlation with therapeutic heparin activity range of 0.3 - 0.7 Units/mL. Current interpretive data was last revised on 2023. Blood 08/07/2025 5:50 AM CDT 08/07/2025 6:03 AM CDT Davidson [facility] - 08/07/2025 6:24 AM CDT Draw STAT PTT 2 hours after initiation of bivalirudin infusion, draw STAT PTT 2 hours after each dose change, and every 2 hours until 2 consecutive PTTs are within therapeutic range. Once two consecutive PTTs are therapeutic (50-80 seconds), then draw PTT every AM until bivalirudin is discontinued. Eula Blakely NP LAB BLOOD ORDERABLES Tami l Result Performing Organization Address [facility] de Phone Number [facility] [place] [place] [address] * aPTT (08/07/2025 3:05 AM CDT) aPTT 32 26 - 38 sec Comment: Interpretive Data Heparin therapeutic range: 66.0 - 100.0 seconds. Range based on correlation with therapeutic heparin activity range of 0.3 - 0.7 Units/mL. Current interpretive data was last revised on 2023. Blood 08/07/2025 3:05 AM CDT 08/07/2025 3:23 AM CDT Davidson [facility] 08/07/2025 3:46 AM CDT Draw STAT PTT 2 hours after initiation of bivalirudin infusion, draw STAT PTT 2 hours after each dose change, and every 2 hours until 2 consecutive PTTs are within therapeutic range. Once two consecutive PTTs are therapeutic (50-80 seconds), then draw PTT every AM until bivalirudin is discontinued. Eula Blakely NP LAB BLOOD ORDERABLES Tami l Result Performing Organization Address [facility] de Phone Number [facility] Department [place] [address] * (ABNORMAL) eGFR (08/07/2025 12:01 AM CDT) eGFR 56(L) >=60 mL/min/1. 73 m2 Comment: Interpretive Data Reference Interval Normal >/= 90 mL/min/1.73m2 Mildly decreased* 60 - 89 mL/min/1.73m2 Mildly to moderately decreased 45 - 59 mL/min/1.73m2 Moderately to severely decreased 30 - 44 mL/min/1.73m2 Severely decreased 15 - 29 mL/min/1.73m2 Kidney Failure < 15 mL/min/1.73m2 *Relative to young adult level Estimated glomerular filtration rate is determined by the 2020 CKD-EPI equation recommended by the National Kidney Foundation (A Unifying Approach to GFR Estimation: Recommendations of the NKF-ASK Task Force on Reassessing the Inclusion of Race in Diagnosing Kidney Disease, JASN 2020). The CKD-EPI equation should not be used for patients with unstable renal function and has not been validated in children and those over 70. Current interpretive data was last reviewed 2021. Blood 08/07/2025 12:0 1 AM CDT 08/07/2025 12:32 AM CDT Leanne Rosario NP LAB BLOOD ORDERABLES F inal Result [facility] Department [place] [address] * (ABNORMAL) Calcium, ionized (08/07/2025 12:01 AM CDT) Calcium, Ionized 4.47(L) 4.50 - 5.10 mg/dL Blood 08/07/2025 12:0 1 AM CDT 08/07/2025 12:31 AM CDT Leanne Rosario NP LAB BLOOD ORDERABLES F inal Result [facility] Department [place] [address] * (ABNORMAL) CBC without differential (08/07/2025 12:01 AM CDT) Pathologist [facility] WBC 8.15 3.80 - 9.90 K/cumm Hgb 8.7(L) 13.0 - 17.5 g/dL [facility] Hct 27.2(L) 38.9 - 50.3 % [facility] Plt 198 150 - 400 K/cumm [facility] MPV 9.9 9.1 - 12.3 fL [facility] RBC 3.16(L) 4.30 - 5.80 M/cumm [facility] MCV 86.1 81.3 - 96.4 fL [facility] MCH 27.5 27.1 - 33.3 pg [facility] MCHC 32.0(L) 32.3 - 35.7 g/dL [facility] RDW CV 15.1(H) 11.1 - 14.9 % [facility] RDW SD 47.3 35.7 - 48.1 fL [facility] NRBC abs 0.00 0.00 - 0.01 K/cumm [facility] Blood 08/07/2025 12:0 1 AM CDT 08/07/2025 12:33 AM CDT Leanne Rosario NP LAB BLOOD ORDERABLES F inal Result [facility] Department [place] [address] * Phosphorus (08/07/2025 12:01 AM CDT) Pathologist [facility] Phosphorus, pl 2.7 2.3 - 4.5 mg/dL Blood 08/07/2025 12:0 1 AM CDT 08/07/2025 12:32 AM CDT Leanne Rosario HAND SPINNER LAB BLOOD ORDERABLES F inal Result Performing Organization Address City/[facility]/ZIP Co de Phone Number [facility] Department [place] [address] * Magnesium (08/07/2025 12:01 AM CDT) [facility] Magnesium 2.0 1.4 - 2.5 mg/dL Blood 08/07/2025 12:0 1 AM CDT 08/07/2025 12:32 AM CDT Leanne Nayana Rosario HAND SPINNER LAB BLOOD ORDERABLES F inal Result Performing Organization Address [facility] Co de Phone Number [facility] Department [place] [address] * (ABNORMAL) Basic metabolic panel (08/07/2025 12:01 AM CDT) [facility] Sodium 142 135 - 145 mmol/L Potassium, pl 4.2 3.3 - 4.9 mmol/L [facility] Chloride 98 97 - 110 mmol/L [facility] CO2 34(H) 22 - 32 mmol/L [facility] Anion gap 10 2 - 15 mmol/L [facility] BUN 45(H) 6 - 25 mg/dL [facility] Creatinine 1.28 0.80 - 1.30 mg/dL [facility] Glucose 182 70 - 199 mg/dL [facility] Comment: Interpretive Data Fasting glucose >/= 126 mg/dl is diagnostic for diabetes. Fasting is defined as no caloric intake for at least 8 hours. Fasting glucose between 100 mg/dl to 125 mg/dl is diagnostic of prediabetes. In a patient with classic symptoms of hyperglycemia or hyperglycemic crisis, a random glucose >/= 200 mg/dl is diagnostic for diabetes. In the absence of unequivocal hyperglycemia, results should be confirmed by repeat testing. The classification and Diagnosis of Diabetes Diabetes Care 2021; 46: S19-S40. Current interpretive data was last revised 2022. Calcium 9.4 8.5 - 10.3 mg/dL [facility] Blood 08/07/2025 12:0 1 AM CDT 08/07/2025 12:32 AM CDT Leanne Rosario HAND SPINNER LAB BLOOD ORDERABLES F inal Result Performing Organization Address [facility] de Phone Number [facility] [place] [address] * (ABNORMAL) aPTT (08/06/2025 11:51 PM CDT) aPTT 44(H) 26 - 38 sec Comment: Interpretive Data Heparin therapeutic range: 66.0 - 100.0 seconds. Range based on correlation with therapeutic heparin activity range of 0.3 - 0.7 Units/mL. Current interpretive data was last revised on 2023. Blood 08/06/2025 11:5 1 PM CDT 08/07/2025 12:37 AM CDT Narrative [facility] - 08/07/2025 12:48 AM CDT Draw STAT PTT 2 hours after initiation of bivalirudin infusion, draw STAT PTT 2 hours after each dose change, and every 2 hours until 2 consecutive PTTs are within therapeutic range. Once two consecutive PTTs are therapeutic (50-80 seconds), then draw PTT every AM until bivalirudin is discontinued. Eula Blakely HAND SPINNER LAB BLOOD ORDERABLES Tami l Result Performing Organization Address [facility] de Phone Number [facility] Department [place] [address] * (ABNORMAL) POCT glucose (08/06/2025 8:17 PM CDT) Pathologist [facility] Glucose, POC 205(H) 70 - 199 mg/dL Blood 08/06/2025 8:17 PM CDT 08/06/2025 8:17 PM CDT Washington Zaman MD LAB POCT ORDERABLES - DEVICE Final Result Performing Organization Address [facility] Co de Phone Number [facility] Department [place] [address] * Potassium, whole blood (08/06/2025 6:51 PM CDT) Potassium, bld 4.0 3.3 - 4.9 mmol/L Blood 08/06/2025 6:51 PM CDT 08/06/2025 7:15 PM CDT us Joe Romeo NP LAB BLOOD ORDERABLES Final Re sult Performing Organization Address [facility] Co de Phone Number [facility] [place] [address] * (ABNORMAL) POCT glucose (08/06/2025 6:01 PM CDT) Glucose, POC 201(H) 70 - 199 mg/dL Blood 08/06/2025 6:01 PM CDT 08/06/2025 6:01 PM CDT us Washington Zaman MD LAB POCT ORDERABLES - DEVICE Final Result Performing Organization Address [facility] Co de Phone Number [facility] Department [place] [address] * Critical Care (08/06/2025 5:54 PM CDT) Narrative Som Sierra MD PhD - 08/06/2025 5:54 PM CDT Som Sierra MD PhD 08/07/2025 6:30 AM Critical Care Performed by: Eula Blakely NP Authorized by: Eula Blakely NP CRITICAL CARE: Team: 83 CTICU Shift: PM Level of Billing: Subsequent Hospital Visit Level 3 My time spent with this patient was 65 minutes: Critical Provider Statement: I have seen and examined the patient on this day of service. I have reviewed and confirmed the history, physical exam, laboratory, and radiographic data as documented in the ICU note. I have reviewed and discussed my treatment plan with the patient's team and other medical/organizational effectiveness consultant staff. This time was in addition to and separate from care provided by other practitioners on this day of service. I spent time reviewing and interpreting data from bedside monitors, laboratory results, and imaging, I spent time discussing the management of this critically ill patient with consultants and the medical staff and I spent time documenting in the medical record Eula Blakely NP IN CLINIC/BEDSIDE ORDERAB LES Final Result * POCT glucose (08/06/2025 4:47 PM CDT) Glucose, POC 190 70 - 199 mg/dL Blood 08/06/2025 4:47 PM CDT 08/06/2025 4:47 PM CDT Washington Zaman MD LAB POCT ORDERABLES - DEVICE Final Result Performing Organization Address City/[facility] Co de Phone Number [facility] Department of [employer] [place] [address] * (ABNORMAL) POCT glucose (08/06/2025 12:16 PM CDT) Glucose, POC 235(H) 70 - 199 mg/dL Blood 08/06/2025 12:1 6 PM CDT 08/06/2025 12:16 PM CDT Washington Zaman MD LAB POCT ORDERABLES - DEVICE Final Result [facility] of [employer] [place] [address] * (ABNORMAL) POCT glucose (08/06/2025 8:15 AM CDT) Glucose, POC 274(H) 70 - 199 mg/dL Blood 08/06/2025 8:15 AM CDT 08/06/2025 8:15 AM CDT us Washington Zaman MD LAB POCT ORDERABLES - DEVICE Final Result [facility] Department [place] [address] * Critical Care (08/06/2025 6:46 AM CDT) Narrative Som Sierra MD PhD - 08/06/2025 6:46 AM CDT Som Sierra MD PhD 08/07/2025 6:29 AM Critical Care Performed by: Joe Romeo NP Authorized by: Joe Romeo NP CRITICAL CARE: Team: 83 CTICU Shift: AM Level of Billing: Subsequent Hospital Visit Level 3 My time spent with this patient was 50 minutes: Critical Provider Statement: I have seen and examined the patient on this day of service. I have reviewed and confirmed the history, physical exam, laboratory, and radiographic data as documented in the ICU note. I have reviewed and discussed my treatment plan with the patient's team and other medical/organizational effectiveness consultant staff. This time was in addition to and separate from care provided by other practitioners on this day of service. I spent time reviewing and interpreting data from bedside monitors, laboratory results, and imaging, I spent time discussing the management of this critically ill patient with consultants and the medical staff and I spent time documenting in the medical record Joe Romeo NP IN CLINIC/BEDSIDE ORDERABLES Final Result * (ABNORMAL) eGFR (08/06/2025 12:04 AM CDT) eGFR 54(L) >=60 mL/min/1. 73 m2 Comment: Interpretive Data Reference Interval Normal >/= 90 mL/min/1.73m2 Mildly decreased* 60 - 89 mL/min/1.73m2 Mildly to moderately decreased 45 - 59 mL/min/1.73m2 Moderately to severely decreased 30 - 44 mL/min/1.73m2 Severely decreased 15 - 29 mL/min/1.73m2 Kidney Failure < 15 mL/min/1.73m2 *Relative to young adult level Estimated glomerular filtration rate is determined by the 2020 CKD-EPI equation recommended by the National [employer] (A Unifying Approach to GFR Estimation: Recommendations of the [employer]F-ASK Task Force on Reassessing the Inclusion of Race in Diagnosing Kidney Disease, JASN 202). The CKD-EPI equation should not be used for patients with unstable renal function and has not been validated in children and those over 70. Current interpretive data was last reviewed 2021. Blood 08/06/2025 12:0 4 AM CDT 08/06/2025 12:52 AM CDT Leanne Rosario NP LAB BLOOD ORDERABLES F inal Result Performing Organization Address City/[facility]/ZIP Co de Phone Number [facility] Department [place] [address] * (ABNORMAL) Calcium, ionized (08/06/2025 12:04 AM CDT) Pathologist [facility] Calcium, Ionized 4.39(L) 4.50 - 5.10 mg/dL Blood 08/06/2025 12:0 4 AM CDT 08/06/2025 12:34 AM CDT Leanne Rosario HAND SPINNER LAB BLOOD ORDERABLES F inal Result Performing Organization Address City/[facility]/ZIP Co de Phone Number [facility] Department [place] [address] * (ABNORMAL) CBC without differential (08/06/2025 12:04 AM CDT) WBC 8.61 3.80 - 9.90 K/cumm Hgb 9.1(L) 13.0 - 17.5 g/dL [facility] Hct 28.2(L) 38.9 - 50.3 % [facility] Plt 194 150 - 400 K/cumm [facility] MPV 10.2 9.1 - 12.3 fL [facility] RBC 3.27(L) 4.30 - 5.80 M/cumm [facility] MCV 86.2 81.3 - 96.4 fL [facility] MCH 27.8 27.1 - 33.3 pg [facility] MCHC 32.3 32.3 - 35.7 g/dL [facility] RDW CV 15.6(H) 11.1 - 14.9 % [facility] RDW SD 48.7(H) 35.7 - 48.1 fL [facility] NRBC abs 0.00 0.00 - 0.01 K/cumm [facility] Blood 08/06/2025 12:0 4 AM CDT 08/06/2025 12:36 AM CDT Leanne Rosario NP LAB BLOOD ORDERABLES F inal Result Performing Organization Address City/[facility] Co de Phone Number [facility] Department [place] [address] * Phosphorus (08/06/2025 12:04 AM CDT) Phosphorus, pl 2.9 2.3 - 4.5 mg/dL Blood 08/06/2025 12:0 4 AM CDT 08/06/2025 12:34 AM CDT Leanne Rosario NP LAB BLOOD ORDERABLES F inal Result Performing Organization Address City/[facility] Co de Phone Number [facility] Department [place] [address] * Magnesium (08/06/2025 12:04 AM CDT) Magnesium 2.3 1.4 - 2.5 mg/dL Blood 08/06/2025 12:0 4 AM CDT 08/06/2025 12:34 AM CDT Leanne Rosario NP LAB BLOOD ORDERABLES F inal Result Performing Organization Address City/[facility]/ZIP Co de Phone Number [facility] Department [place] [address] * (ABNORMAL) Basic metabolic panel (08/06/2025 12:04 AM CDT) Pathologist [facility] Sodium 141 135 - 145 mmol/L Potassium, pl 4.2 3.3 - 4.9 mmol/L [facility] Chloride 103 97 - 110 mmol/L [facility] CO2 31 22 - 32 mmol/L [facility] Anion gap 7 2 - 15 mmol/L [facility] BUN 45(H) 6 - 25 mg/dL [facility] Creatinine 1.33(H) 0.80 - 1.30 mg/dL [facility] Glucose 155 70 - 199 mg/dL [facility] Comment: Interpretive Data Fasting glucose >/= 126 mg/dl is diagnostic for diabetes. Fasting is defined as no caloric intake for at least 8 hours. Fasting glucose between 100 mg/dl to 125 mg/dl is diagnostic of prediabetes. In a patient with classic symptoms of hyperglycemia or hyperglycemic crisis, a random glucose >/= 200 mg/dl is diagnostic for diabetes. In the absence of unequivocal hyperglycemia, results should be confirmed by repeat testing. The classification and Diagnosis of Diabetes Diabetes Care 202; 46: S19-S40. Current interpretive data was last revised 2022. Calcium 8.9 8.5 - 10.3 mg/dL [facility] Blood 08/06/2025 12:0 4 AM CDT 08/06/2025 12:34 AM CDT Leanne Rosario NP LAB BLOOD ORDERABLES F inal Result [facility] Department [place] [address] * (ABNORMAL) aPTT (08/05/2025 10:02 PM CDT) aPTT 51(H) 26 - 38 sec Comment: Interpretive Data Heparin therapeutic range: 66.0 - 100.0 seconds. Range based on correlation with therapeutic heparin activity range of 0.3 - 0.7 Units/mL. Current interpretive data was last revised on 2023. Blood 08/05/2025 10:0 2 PM CDT 08/05/2025 10:22 PM CDT Narrative [facility] - 08/05/2025 10:31 PM CDT Draw STAT PTT 2 hours after initiation of bivalirudin infusion, draw STAT PTT 2 hours after each dose change, and every 2 hours until 2 consecutive PTTs are within therapeutic range. Once two consecutive PTTs are therapeutic (50-80 seconds), then draw PTT every AM until bivalirudin is discontinued. us Eula Blakely NP LAB BLOOD ORDERABLES Tami l Result Performing Organization Address [facility] Co de Phone Number [facility] Department [place] [address] * Potassium, whole blood (08/05/2025 8:30 PM CDT) Potassium, bld 4.0 3.3 - 4.9 mmol/L Blood 08/05/2025 8:30 PM CDT 08/05/2025 8:39 PM CDT us Eula Blakely NP LAB BLOOD ORDERABLES Tami l Result Performing Organization Address [facility] Co de Phone Number [facility] Department of [employer] [place] [address] * POCT glucose (08/05/2025 8:30 PM CDT) Glucose, POC 169 70 - 199 mg/dL Blood 08/05/2025 8:30 PM CDT 08/05/2025 8:30 PM CDT Washington Zaman MD LAB POCT ORDERABLES - DEVICE Final Result Performing Organization Address [facility] Co de Phone Number [facility] Department [place] [address] * (ABNORMAL) aPTT (08/05/2025 8:30 PM CDT) aPTT 50(H) 26 - 38 sec Comment: Interpretive Data Heparin therapeutic range: 66.0 - 100.0 seconds. Range based on correlation with therapeutic heparin activity range of 0.3 - 0.7 Units/mL. Current interpretive data was last revised on 2023. Blood 08/05/2025 8:30 PM CDT 08/05/2025 8:46 PM CDT Narrative [facility] - 08/05/2025 8:56 PM CDT Draw STAT PTT 2 hours after initiation of bivalirudin infusion, draw STAT PTT 2 hours after each dose change, and every 2 hours until 2 consecutive PTTs are within therapeutic range. Once two consecutive PTTs are therapeutic (50-80 seconds), then draw PTT every AM until bivalirudin is discontinued. us Eula Blakely NP LAB BLOOD ORDERABLES Tami cervantes Result [facility] Department [place] [address] * XR Chest 1 View - in PM (08/05/2025 7:01 PM CDT) Anatomical Region Laterality Modality Body, Chest N/A Digital Radiogra phy 08/06/2025 8:43 AM CDT Impressions 08/06/2025 8:43 AM CDT Comparison is made to prior from 08/04/2025. A right internal jugular central venous catheter overlies the superior vena cava. Left atrial appendage clip and aortic valve replacement are again seen. There is a mediastinal drain. The cardiomediastinal silhouette is enlarged. There is left retrocardiac atelectasis. There is no pleural effusion or pneumothorax. Electronically signed by: Ronny Ashford M.D. Narrative 08/06/2025 8:43 AM CDT EXAMINATION: 1 view chest radiograph Procedure Note Ronny Ashford MD - 08/06/2025 EXAMINATION: 1 view chest radiograph IMPRESSION: Comparison is made to prior from 08/04/2025. A right internal jugular central venous catheter overlies the superior vena cava. Left atrial appendage clip and aortic valve replacement are again seen. There is a mediastinal drain. The cardiomediastinal silhouette is enlarged. There is left retrocardiac atelectasis. There is no pleural effusion or pneumothorax. Electronically signed by: Ronny Ashford M.D. us Luann Banks HAND SPINNER IMG XR PROCEDURES Fi nal Result * Oxyhemoglobin, central venous (08/05/2025 5:40 PM CDT) Oxyhemoglobin, CV 75.9 % Comment: Interpretive Data No reference range established. Current interpretive data was last revised 2020. Blood 08/05/2025 5:40 PM CDT 08/05/2025 5:51 PM CDT Washington Zaman MD LAB BLOOD ORDERABLES Final Re sult Performing Organization Address City/[facility]/ZIP Co de Phone Number [facility] Department of [employer] [place] [address] * Potassium, whole blood (08/05/2025 5:40 PM CDT) Pathologist [facility] Potassium, bld 4.0 3.3 - 4.9 mmol/L Blood 08/05/2025 5:40 PM CDT 08/05/2025 5:51 PM CDT Joe Romeo NP LAB BLOOD ORDERABLES Final Re sult Performing Organization Address City/[facility] Co de Phone Number [facility] Department [place] [address] * (ABNORMAL) aPTT (08/05/2025 5:40 PM CDT) [facility] aPTT 49(H) 26 - 38 sec Comment: Interpretive Data Heparin therapeutic range: 66.0 - 100.0 seconds. Range based on correlation with therapeutic heparin activity range of 0.3 - 0.7 Units/mL. Current interpretive data was last revised on 2023. Blood 08/05/2025 5:40 PM CDT 08/05/2025 6:12 PM CDT [facility]ative [facility] 08/05/[facility] 6:21 PM CDT Draw STAT PTT 2 hours after initiation of bivalirudin infusion, draw STAT PTT 2 hours after each dose change, and every 2 hours until 2 consecutive PTTs are within therapeutic range. Once two consecutive PTTs are therapeutic (50-80 seconds), then draw PTT every AM until bivalirudin is discontinued. Eula Blakely NP LAB BLOOD ORDERABLES Tami l Result Performing Organization Address City/[facility]/ZIP Co de Phone Number [facility] Department of [employer] [place] [address] * POCT glucose (08/05/2025 5:28 PM CDT) [facility] Glucose, POC 153 70 - 199 mg/dL Blood 08/05/2025 5:28 PM CDT 08/05/2025 5:28 PM CDT Washington Zaman MD LAB POCT ORDERABLES - DEVICE Final Result Performing Organization Address City/[facility]/ZIP Co de Phone Number [facility] of [employer] [place] [address] * (ABNORMAL) aPTT (08/05/2025 4:07 PM CDT) [facility] aPTT 46(H) 26 - 38 sec Comment: Interpretive Data Heparin therapeutic range: 66.0 - 100.0 seconds. Range based on correlation with therapeutic heparin activity range of 0.3 - 0.7 Units/mL. Current interpretive data was last revised on 2023. Blood 08/05/2025 4:07 PM CDT 08/05/2025 4:30 PM CDT [facility] 08/05/2025 4:39 PM CDT Draw STAT PTT 2 hours after initiation of bivalirudin infusion, draw STAT PTT 2 hours after each dose change, and every 2 hours until 2 consecutive PTTs are within therapeutic range. Once two consecutive PTTs are therapeutic (50-80 seconds), then draw PTT every AM until bivalirudin is discontinued. us Eula Blakely NP LAB BLOOD ORDERABLES Tami l Result Performing Organization Address [facility] Co de Phone Number [facility] Department of [employer] [place] [address] * (ABNORMAL) aPTT (08/05/2025 2:01 PM CDT) aPTT 49(H) 26 - 38 sec Comment: Interpretive Data Heparin therapeutic range: 66.0 - 100.0 seconds. Range based on correlation with therapeutic heparin activity range of 0.3 - 0.7 Units/mL. Current interpretive data was last revised on 2023. Blood 08/05/2025 2:01 PM CDT 08/05/2025 2:12 PM CDT [facility] 08/05/2025 2:34 PM CDT Draw STAT PTT 2 hours after initiation of bivalirudin infusion, draw STAT PTT 2 hours after each dose change, and every 2 hours until 2 consecutive PTTs are within therapeutic range. Once two consecutive PTTs are therapeutic (50-80 seconds), then draw PTT every AM until bivalirudin is discontinued. us Eula Blakely NP LAB BLOOD ORDERABLES Tami l Result Performing Organization Address [facility]/ZIP Co de Phone Number [facility] Department of [employer] [place] [address] * (ABNORMAL) POCT glucose (08/05/2025 11:03 AM CDT) Glucose, POC 240(H) 70 - 199 mg/dL Blood 08/05/2025 11:0 3 AM CDT 08/05/2025 11:03 AM CDT us Washington Zaman MD LAB POCT ORDERABLES - DEVICE Final Result Performing Organization Address [facility]/ZIP Co de Phone Number [facility] Department [place] [address] * (ABNORMAL) POCT glucose (08/05/2025 11:01 AM CDT) Glucose, POC 241(H) 70 - 199 mg/dL Blood 08/05/2025 11:0 1 AM CDT 08/05/2025 11:01 AM CDT us Washington Zaman MD LAB POCT ORDERABLES - DEVICE Final Result Performing Organization Address [facility] de Phone Number [facility] Department [place] [address] * (ABNORMAL) aPTT (08/05/2025 10:59 AM CDT) aPTT 44(H) 26 - 38 sec Comment: Interpretive Data Heparin therapeutic range: 66.0 - 100.0 seconds. Range based on correlation with therapeutic heparin activity range of 0.3 - 0.7 Units/mL. Current interpretive data was last revised on 2023. Blood 08/05/2025 10:5 9 AM CDT 08/05/2025 11:17 AM CDT Narrative [facility] 08/05/2025 11:39 AM CDT Draw STAT PTT 2 hours after initiation of bivalirudin infusion, draw STAT PTT 2 hours after each dose change, and every 2 hours until 2 consecutive PTTs are within therapeutic range. Once two consecutive PTTs are therapeutic (50-80 seconds), then draw PTT every AM until bivalirudin is discontinued. us Eula Blakely NP LAB BLOOD ORDERABLES Tami l Result Performing Organization Address [facility] Co de Phone Number [facility] [employer] [place] [address] * (ABNORMAL) aPTT (08/05/2025 8:53 AM CDT) aPTT 45(H) 26 - 38 sec Comment: Interpretive Data Heparin therapeutic range: 66.0 - 100.0 seconds. Range based on correlation with therapeutic heparin activity range of 0.3 - 0.7 Units/mL. Current interpretive data was last revised on 2023. Blood 08/05/2025 8:53 AM CDT 08/05/2025 9:05 AM CDT Narrative [facility] - 08/05/2025 9:35 AM CDT Draw STAT PTT 2 hours after initiation of bivalirudin infusion, draw STAT PTT 2 hours after each dose change, and every 2 hours until 2 consecutive PTTs are within therapeutic range. Once two consecutive PTTs are therapeutic (50-80 seconds), then draw PTT every AM until bivalirudin is discontinued. us Eula Blakely NP LAB BLOOD ORDERABLES Tami l Result Performing Organization Address [facility] de Phone Number [facility] [employer] [place] [address] * POCT glucose (08/05/2025 7:36 AM CDT) Glucose, POC 150 70 - 199 mg/dL Blood 08/05/2025 7:36 AM CDT 08/05/2025 7:36 AM CDT us Washington Zaman MD LAB POCT ORDERABLES - DEVICE Final Result Performing Organization Address [facility] Co de Phone Number [facility] [employer] [place] [address] * Critical Care (08/05/2025 7:01 AM CDT) Narrative Som Sierra MD PhD - 08/05/2025 7:01 AM CDT Som Sierra MD PhD 08/06/2025 6:37 AM Critical Care Performed by: Jeo Romeo NP Authorized by: Joe Romeo NP CRITICAL CARE: Team: 83 CTICU Shift: AM Level of Billing: Subsequent Hospital Visit Level 3 My time spent with this patient was 60 minutes: Critical Provider Statement: I have seen and examined the patient on this day of service. I have reviewed and confirmed the history, physical exam, laboratory, and radiographic data as documented in the ICU note. I have reviewed and discussed my treatment plan with the patient's team and other medical/organizational effectiveness consultant staff. This time was in addition to and separate from care provided by other practitioners on this day of service. I spent time reviewing and interpreting data from bedside monitors, laboratory results, and imaging, I spent time discussing the management of this critically ill patient with consultants and the medical staff and I spent time documenting in the medical record us Joe Romeo NP IN CLINIC/BEDSIDE ORDERABLES Final Result * (ABNORMAL) aPTT (08/05/2025 12:17 AM CDT) aPTT 41(H) 26 - 38 sec Comment: Interpretive Data Heparin therapeutic range: 66.0 - 100.0 seconds. Range based on correlation with therapeutic heparin activity range of 0.3 - 0.7 Units/mL. Current interpretive data was last revised on 2023. Blood 08/05/2025 12:1 7 AM CDT 08/05/2025 12:46 AM CDT Narrative [facility] - 08/05/2025 12:56 AM CDT Draw STAT PTT 2 hours after initiation of bivalirudin infusion, draw STAT PTT 2 hours after each dose change, and every 2 hours until 2 consecutive PTTs are within therapeutic range. Once two consecutive PTTs are therapeutic (50-80 seconds), then draw PTT every AM until bivalirudin is discontinued. us Eula Blakely HAND SPINNER LAB BLOOD ORDERABLES Tami l Result Performing Organization Address [facility] Co de Phone Number [facility] [place] [address] * (ABNORMAL) eGFR (08/04/2025 11:50 PM CDT) eGFR 52(L) >=60 mL/min/1. 73 m2 Comment: Interpretive Data Reference Interval Normal >/= 90 mL/min/1.73m2 Mildly decreased* 60 - 89 mL/min/1.73m2 Mildly to moderately decreased 45 - 59 mL/min/1.73m2 Moderately to severely decreased 30 - 44 mL/min/1.73m2 Severely decreased 15 - 29 mL/min/1.73m2 Kidney Failure < 15 mL/min/1.73m2 *Relative to young adult level Estimated glomerular filtration rate is determined by the 2020 CKD-EPI equation recommended by the National Kidney Foundation (A Unifying Approach to GFR Estimation: Recommendations of the NKF-ASK Task Force on Reassessing the Inclusion of Race in Diagnosing Kidney Disease, JASN 2020). The CKD-EPI equation should not be used for patients with unstable renal function and has not been validated in children and those over 70. Current interpretive data was last reviewed 2021. Blood 08/04/2025 11:5 0 PM CDT 08/05/2025 12:40 AM CDT Leanne Rosario NP LAB BLOOD ORDERABLES F inal Result Performing Organization Address City/[facility]/ZIP Co de Phone Number [facility] Department [place] [address] * Calcium, ionized (08/04/2025 11:50 PM CDT) Calcium, Ionized 4.75 4.50 - 5.10 mg/dL Blood 08/04/2025 11:5 0 PM CDT 08/05/2025 12:22 AM CDT Leanne Rosario NP LAB BLOOD ORDERABLES F inal Result Performing Organization Address [facility]/ZIP Co de Phone Number [facility] of [employer] [place] [address] * (ABNORMAL) CBC without differential (08/04/2025 11:50 PM CDT) WBC 8.13 3.80 - 9.90 K/cumm Hgb 9.0(L) 13.0 - 17.5 g/dL [facility] Hct 28.1(L) 38.9 - 50.3 % [facility] Plt 154 150 - 400 K/cumm [facility] MPV 10.5 9.1 - 12.3 fL [facility] RBC 3.21(L) 4.30 - 5.80 M/cumm [facility] MCV 87.5 81.3 - 96.4 fL [facility] MCH 28.0 27.1 - 33.3 pg [facility] MCHC 32.0(L) 32.3 - 35.7 g/dL [facility] RDW CV 15.8(H) 11.1 - 14.9 % [facility] RDW SD 49.9(H) 35.7 - 48.1 fL [facility] NRBC abs 0.00 0.00 - 0.01 K/cumm [facility] Blood 08/04/2025 11:5 0 PM CDT 08/05/2025 12:16 AM CDT Leanne Rosario NP LAB BLOOD ORDERABLES F inal Result [facility] [employer] [place] [address] * Type and screen (08/04/2025 11:50 PM CDT) ABO Rh O Positive Cedric, indirect Negative [facility] Blood 08/04/2025 11:5 0 PM CDT 08/05/2025 12:17 AM CDT Narrative [facility] - 08/05/2025 1:25 AM CDT Has the patient had Daratumumab or Isatuximab in the past 6 months?->Unknown Eula Blakely HAND SPINNER LAB BLOOD BANK TEST ORDER YANIQUE Final Result Performing Organization Address [facility] Co de Phone Number [facility] [place] [address] * Phosphorus (08/04/2025 11:50 PM CDT) [facility] Phosphorus, pl 2.3 2.3 - 4.5 mg/dL Blood 08/04/2025 11:5 0 PM CDT 08/05/2025 12:22 AM CDT Leanne Rosario NP LAB BLOOD ORDERABLES F inal Result Performing Organization Address [facility] Co de Phone Number [facility] [place] [address] * Magnesium (08/04/2025 11:50 PM CDT) [facility] Magnesium 2.3 1.4 - 2.5 mg/dL Blood 08/04/2025 11:5 0 PM CDT 08/05/2025 12:22 AM CDT Leanne Rosario HAND SPINNER LAB BLOOD ORDERABLES F inal Result Performing Organization Address [facility] Co de Phone Number [facility] [employer] [place] [address] * (ABNORMAL) Basic metabolic panel (08/04/2025 11:50 PM CDT) [facility] Sodium 139 135 - 145 mmol/L Potassium, pl 4.2 3.3 - 4.9 mmol/L [facility] Chloride 103 97 - 110 mmol/L [facility] CO2 30 22 - 32 mmol/L [facility] Anion gap 6 2 - 15 mmol/L [facility] BUN 44(H) 6 - 25 mg/dL [facility] Creatinine 1.36(H) 0.80 - 1.30 mg/dL [facility] Glucose 198 70 - 199 mg/dL [facility] Comment: Interpretive Data Fasting glucose >/= 126 mg/dl is diagnostic for diabetes. Fasting is defined as no caloric intake for at least 8 hours. Fasting glucose between 100 mg/dl to 125 mg/dl is diagnostic of prediabetes. In a patient with classic symptoms of hyperglycemia or hyperglycemic crisis, a random glucose >/= 200 mg/dl is diagnostic for diabetes. In the absence of unequivocal hyperglycemia, results should be confirmed by repeat testing. The classification and Diagnosis of Diabetes Diabetes Care 2021; 46: S19-S40. Current interpretive data was last revised 2022. Calcium 9.2 8.5 - 10.3 mg/dL [facility] Blood 08/04/2025 11:5 0 PM CDT 08/05/2025 12:22 AM CDT Leanne Rosario NP LAB BLOOD ORDERABLES F inal Result [facility] Department [place] [address] * XR Chest 1 View - in PM (08/04/2025 8:46 PM CDT) Anatomical Region Laterality Modality Body, Chest N/A Digital Radiogra phy 08/04/2025 9:33 PM CDT Impressions 08/04/2025 9:33 PM CDT A right internal jugular central venous catheter terminates at the superior vena cava. A left atrial appendage clip is present. An aortic valve replacement is present. A mediastinal drain is present. Sternal plates are in unchanged alignment. There is increased moderate left basilar atelectasis with an unchanged small left pleural effusion. There is no pneumothorax. The cardiomediastinal silhouette is unchanged. Electronically signed by: Xavi Coombs M.D. Narrative 08/04/2025 9:33 PM CDT EXAMINATION: XR CHEST 1 VIEW COMPARISON: 08/03/2025 6:22 PM Procedure Note Xavi Coombs MD PhD - 08/04/2025 EXAMINATION: XR CHEST 1 VIEW COMPARISON: 08/03/2025 6:22 PM IMPRESSION: A right internal jugular central venous catheter terminates at the superior vena cava. A left atrial appendage clip is present. An aortic valve replacement is present. A mediastinal drain is present. Sternal plates are in unchanged alignment. There is increased moderate left basilar atelectasis with an unchanged small left pleural effusion. There is no pneumothorax. The cardiomediastinal silhouette is unchanged. Electronically signed by: Xavi Coombs M.D. us Luann Banks HAND SPINNER IMG XR PROCEDURES Fi nal Result * Potassium, whole blood (08/04/2025 8:17 PM CDT) Potassium, bld 4.1 3.3 - 4.9 mmol/L Blood 08/04/2025 8:17 PM CDT 08/04/2025 8:22 PM CDT us Eula Blakely NP LAB BLOOD ORDERABLES Tami l Result Performing Organization Address [facility] Co de Phone Number [facility] Department of [employer] [place] [address] * (ABNORMAL) POCT glucose (08/04/2025 8:12 PM CDT) Glucose, POC 219(H) 70 - 199 mg/dL Blood 08/04/2025 8:12 PM CDT 08/04/2025 8:12 PM CDT Washington Zaman MD LAB POCT ORDERABLES - DEVICE Final Result Performing Organization Address [facility] Co de Phone Number [facility] Department [place] [address] * Potassium, whole blood (08/04/2025 4:57 PM CDT) Potassium, bld 4.4 3.3 - 4.9 mmol/L Blood 08/04/2025 4:57 PM CDT 08/04/2025 5:02 PM CDT us Eula Blakely HAND SPINNER LAB BLOOD ORDERABLES [place] [address] * POCT glucose (08/04/2025 3:59 PM CDT) Glucose, POC 148 70 - 199 mg/dL Blood 08/04/2025 3:59 PM CDT 08/04/2025 3:59 PM CDT us Washington Zaman MD LAB POCT ORDERABLES - DEVICE Final Result Performing Organization Address City/[facility]/ZIP [place] [address] * POCT glucose (08/04/2025 10:49 AM CDT) Glucose, POC 149 70 - 199 mg/dL Blood 08/04/2025 10:4 9 AM CDT 08/04/2025 10:49 AM CDT Washington Zaman MD LAB POCT ORDERABLES - DEVICE Final Result Performing Organization Address City/[facility]/ZIP [place] [address] * POCT glucose (08/04/2025 8:23 AM CDT) Glucose, POC 164 70 - 199 mg/dL Blood 08/04/2025 8:23 AM CDT 08/04/2025 8:23 AM CDT Washington Zaman MD LAB POCT ORDERABLES - DEVICE Final Result [facility] Department [place] [address] * Critical Care (08/04/2025 7:18 AM CDT) Narrative Som Sierra MD PhD - 08/04/2025 7:18 AM CDT Som Sierra MD PhD 08/05/2025 6:27 AM Critical Care Performed by: Joe Romeo NP Authorized by: Joe Romeo NP CRITICAL CARE: Team: 83 CTICU Shift: AM Level of Billing: Subsequent Hospital Visit Level 3 My time spent with this patient was 60 minutes: Critical Provider Statement: I have seen and examined the patient on this day of service. I have reviewed and confirmed the history, physical exam, laboratory, and radiographic data as documented in the ICU note. I have reviewed and discussed my treatment plan with the patient's team and other medical/organizational effectiveness consultant staff. This time was in addition to and separate from care provided by other practitioners on this day of service. I spent time reviewing and interpreting data from bedside monitors, laboratory results, and imaging, I spent time discussing the management of this critically ill patient with consultants and the medical staff and I spent time documenting in the medical record us Joe Romeo NP IN CLINIC/BEDSIDE ORDERABLES Final Result * XR Abdomen Ap 1 Vw (08/04/2025 3:49 AM CDT) Anatomical Region Laterality Modality Body, Abdomen N/A Digital Radiogra phy 08/04/2025 10:2 6 AM CDT Impressions 08/04/2025 10:26 AM CDT 08/03/2025 at 1823 hours: Gastric tube tip and side-port within the gastric body. Left atrial appendage clip and aortic valve replacement are present. Median sternotomy plate is present. Fine epicardial pacing wires are noted. Mediastinal drain is present. Partially imaged left basilar atelectasis. 08/04/2025 at 0346 hours: Interval advancement of gastric tube with tip and side-port still terminating within the gastric body. No other significant interval change. Electronically signed by: Callie Rich MD Narrative 08/04/2025 10:26 AM CDT EXAMINATION: XR ABDOMEN AP 1 VIEW HISTORY: Check tube placement COMPARISON: Abdominal radiograph dated 08/03/2025 at 0000 hours. Procedure Note Callie Rich MD - 08/04/2025 EXAMINATION: XR ABDOMEN AP 1 VIEW HISTORY: Check tube placement COMPARISON: Abdominal radiograph dated 08/03/2025 at 0000 hours. IMPRESSION: 08/03/2025 at 1823 hours: Gastric tube tip and side-port within the gastric body. Left atrial appendage clip and aortic valve replacement are present. Median sternotomy plate is present. Fine epicardial pacing wires are noted. Mediastinal drain is present. Partially imaged left basilar atelectasis. 08/04/2025 at 0346 hours: Interval advancement of gastric tube with tip and side-port still terminating within the gastric body. No other significant interval change. Electronically signed by: Callie Rich MD Washington Zaman MD IMG XR PROCEDURES Final Resul t * (ABNORMAL) eGFR (08/03/2025 11:48 PM CDT) eGFR 40(L) >=60 mL/min/1. 73 m2 Comment: Interpretive Data Reference Interval Normal >/= 90 mL/min/1.73m2 Mildly decreased* 60 - 89 mL/min/1.73m2 Mildly to moderately decreased 45 - 59 mL/min/1.73m2 Moderately to severely decreased 30 - 44 mL/min/1.73m2 Severely decreased 15 - 29 mL/min/1.73m2 Kidney Failure < 15 mL/min/1.73m2 *Relative to young adult level Estimated glomerular filtration rate is determined by the 2020 CKD-EPI equation recommended by the National Kidney Foundation (A Unifying Approach to GFR Estimation: Recommendations of the NKF-ASK Task Force on Reassessing the Inclusion of Race in Diagnosing Kidney Disease, JASN 2020). The CKD-EPI equation should not be used for patients with unstable renal function and has not been validated in children and those over 70. Current interpretive data was last reviewed 2021. Blood 08/03/2025 11:4 8 PM CDT 08/04/2025 12:23 AM CDT Leanne Rosario HAND SPINNER LAB BLOOD ORDERABLES F inal Result Performing Organization Address City/[facility]/ZIP Co de Phone Number [facility] [place] [address] * Calcium, ionized (08/03/2025 11:48 PM CDT) [facility] Calcium, Ionized 4.60 4.50 - 5.10 mg/dL Blood 08/03/2025 11:4 8 PM CDT 08/04/2025 12:23 AM CDT Leanne Rosario HAND SPINNER LAB BLOOD ORDERABLES F inal Result Performing Organization Address [facility] de Phone Number [facility] [employer] [place] [address] * (ABNORMAL) CBC without differential (08/03/2025 11:48 PM CDT) [facility] WBC 9.35 3.80 - 9.90 K/cumm Hgb 9.2(L) 13.0 - 17.5 g/dL [facility] Hct 30.0(L) 38.9 - 50.3 % [facility] Plt 124(L) 150 - 400 K/cumm [facility] MPV 10.4 9.1 - 12.3 fL [facility] RBC 3.40(L) 4.30 - 5.80 M/cumm [facility] MCV 88.2 81.3 - 96.4 fL [facility] MCH 27.1 27.1 - 33.3 pg [facility] MCHC 30.7(L) 32.3 - 35.7 g/dL [facility] RDW CV 15.8(H) 11.1 - 14.9 % [facility] RDW SD 50.6(H) 35.7 - 48.1 fL [facility] NRBC abs 0.00 0.00 - 0.01 K/cumm [facility] Blood 08/03/2025 11:4 8 PM CDT 08/04/2025 12:28 AM CDT Leanne Rosario HAND SPINNER LAB BLOOD ORDERABLES F inal Result [facility] Department [place] [address] * Phosphorus (08/03/2025 11:48 PM CDT) Phosphorus, pl 3.1 2.3 - 4.5 mg/dL Blood 08/03/2025 11:4 8 PM CDT 08/04/2025 12:23 AM CDT Leanne Rosario HAND SPINNER LAB BLOOD ORDERABLES F inal Result Performing Organization Address City/[facility] Co de Phone Number [facility] Department of [employer] [place] [address] * (ABNORMAL) Magnesium (08/03/2025 11:48 PM CDT) Magnesium 2.6(H) 1.4 - 2.5 mg/dL Blood 08/03/2025 11:4 8 PM CDT 08/04/2025 12:23 AM CDT Leanne Rosario HAND SPINNER LAB BLOOD ORDERABLES F inal Result [facility] Department [place] [address] * (ABNORMAL) Basic metabolic panel (08/03/2025 11:48 PM CDT) Sodium 139 135 - 145 mmol/L Potassium, pl 4.7 3.3 - 4.9 mmol/L [facility] Chloride 104 97 - 110 mmol/L [facility] CO2 28 22 - 32 mmol/L [facility] Anion gap 7 2 - 15 mmol/L [facility] BUN 42(H) 6 - 25 mg/dL [facility] Creatinine 1.69(H) 0.80 - 1.30 mg/dL [facility] Glucose 155 70 - 199 mg/dL [facility] Comment: Interpretive Data Fasting glucose >/= 126 mg/dl is diagnostic for diabetes. Fasting is defined as no caloric intake for at least 8 hours. Fasting glucose between 100 mg/dl to 125 mg/dl is diagnostic of prediabetes. In a patient with classic symptoms of hyperglycemia or hyperglycemic crisis, a random glucose >/= 200 mg/dl is diagnostic for diabetes. In the absence of unequivocal hyperglycemia, results should be confirmed by repeat testing. The classification and Diagnosis of Diabetes Diabetes Care 2021; 46: S19-S40. Current interpretive data was last revised 2022. Calcium 9.4 8.5 - 10.3 mg/dL [facility] Blood 08/03/2025 11:4 8 PM CDT 08/04/2025 12:23 AM CDT Leanne Rosario NP LAB BLOOD ORDERABLES F inal Result [facility] Department [place] [address] * (ABNORMAL) aPTT (08/03/2025 9:30 PM CDT) aPTT 42(H) 26 - 38 sec Comment: Interpretive Data Heparin therapeutic range: 66.0 - 100.0 seconds. Range based on correlation with therapeutic heparin activity range of 0.3 - 0.7 Units/mL. Current interpretive data was last revised on 2023. Blood 08/03/2025 9:30 PM CDT 08/03/2025 9:52 PM CDT Narrative [facility] - 08/03/2025 10:02 PM CDT Draw STAT PTT 2 hours after initiation of bivalirudin infusion, draw STAT PTT 2 hours after each dose change, and every 2 hours until 2 consecutive PTTs are within therapeutic range. Once two consecutive PTTs are therapeutic (50-80 seconds), then draw PTT every AM until bivalirudin is discontinued. Eula Blakely NP LAB BLOOD ORDERABLES Tami l Result Performing Organization Address City/[facility]/ZIP Co de Phone Number [facility] Department [place] [address] * POCT glucose (08/03/2025 7:51 PM CDT) Pathologist [facility] Glucose, POC 162 70 - 199 mg/dL Blood 08/03/2025 7:51 PM CDT 08/03/2025 7:51 PM CDT Washington Zaman MD LAB POCT ORDERABLES - DEVICE Final Result Performing Organization Address [facility] Co de Phone Number [facility] Department [place] [address] * (ABNORMAL) aPTT (08/03/2025 7:05 PM CDT) aPTT 40(H) 26 - 38 sec Comment: Interpretive Data Heparin therapeutic range: 66.0 - 100.0 seconds. Range based on correlation with therapeutic heparin activity range of 0.3 - 0.7 Units/mL. Current interpretive data was last revised on 2023. Blood 08/03/2025 7:05 PM CDT 08/03/2025 7:19 PM CDT Narrative [facility] - 08/03/2025 7:28 PM CDT Draw STAT PTT 2 hours after initiation of bivalirudin infusion, draw STAT PTT 2 hours after each dose change, and every 2 hours until 2 consecutive PTTs are within therapeutic range. Once two consecutive PTTs are therapeutic (50-80 seconds), then draw PTT every AM until bivalirudin is discontinued. us Eula Blakely NP LAB BLOOD ORDERABLES Tami cervantes Result [facility] [place] [address] * XR Chest 1 View - in PM (08/03/2025 6:42 PM CDT) Anatomical Region Laterality Modality Body, Chest N/A Digital Radiogra phy 08/04/2025 9:31 AM CDT Impressions 08/04/2025 10:20 AM CDT Comparison to 08/02/2025 at 7:[address] Left atrial appendage clip. Bioprosthetic aortic valve. Right internal jugular central venous catheter tip projects over the superior vena cava. Mediastinal drain. Mild left basilar atelectasis. No pleural effusion or pneumothorax. The heart and mediastinal contours are stable and is in keeping with surgery. Dictated by: Carlos Menard MD The radiology attending physician has personally reviewed this study, and had reviewed and/or edited this written report and agrees with it. Electronically signed by: Bassem Roberson M.D. Narrative 08/04/2025 10:20 AM CDT EXAMINATION: 1 view chest radiograph Procedure Note Bassem Roberson MD - 08/04/2025 EXAMINATION: 1 view chest radiograph IMPRESSION: Comparison to 08/02/2025 at 7:[address] Left atrial appendage clip. Bioprosthetic aortic valve. Right internal jugular central venous catheter tip projects over the superior vena cava. Mediastinal drain. Mild left basilar atelectasis. No pleural effusion or pneumothorax. The heart and mediastinal contours are stable and is in keeping with surgery. Dictated by: Carlos Menard MD The radiology attending physician has personally reviewed this study, and had reviewed and/or edited this written report and agrees with it. Electronically signed by: Bassem Roberson M.D. Luann Banks HAND SPINNER IMG XR PROCEDURES Fi nal Result * XR Abdomen 1 View AP (08/03/2025 6:41 PM CDT) Anatomical Region Laterality Modality Body, Abdomen N/A Digital Radiogra phy 08/04/2025 10:2 6 AM CDT Impressions 08/04/2025 10:26 AM CDT 08/03/2025 at 1823 hours: Gastric tube tip and side-port within the gastric body. Left atrial appendage clip and aortic valve replacement are present. Median sternotomy plate is present. Fine epicardial pacing wires are noted. Mediastinal drain is present. Partially imaged left basilar atelectasis. 08/04/2025 at 0346 hours: Interval advancement of gastric tube with tip and side-port still terminating within the gastric body. No other significant interval change. Electronically signed by: Callie Rich MD Narrative 08/04/2025 10:26 AM CDT EXAMINATION: XR ABDOMEN AP 1 VIEW HISTORY: Check tube placement COMPARISON: Abdominal radiograph dated 08/03/2025 at 0000 hours. Procedure Note Callie Rich MD - 08/04/2025 EXAMINATION: XR ABDOMEN AP 1 VIEW HISTORY: Check tube placement COMPARISON: Abdominal radiograph dated 08/03/2025 at 0000 hours. IMPRESSION: 08/03/2025 at 1823 hours: Gastric tube tip and side-port within the gastric body. Left atrial appendage clip and aortic valve replacement are present. Median sternotomy plate is present. Fine epicardial pacing wires are noted. Mediastinal drain is present. Partially imaged left basilar atelectasis. 08/04/2025 at 0346 hours: Interval advancement of gastric tube with tip and side-port still terminating within the gastric body. No other significant interval change. Electronically signed by: Callie Rich MD Joe Romeo HAND SPINNER IMG XR PROCEDURES Final Resul t * Potassium, whole blood (08/03/2025 4:16 PM CDT) Potassium, bld 4.4 3.3 - 4.9 mmol/L Blood 08/03/2025 4:16 PM CDT 08/03/2025 4:26 PM CDT Eula Blakely HAND SPINNER LAB BLOOD ORDERABLES Tami l Result Performing Organization Address [facility] Co de Phone Number [facility] of [employer] [place] [address] * (ABNORMAL) aPTT (08/03/2025 4:16 PM CDT) Pathologist [facility] aPTT 25(L) 26 - 38 sec Comment: Interpretive Data Heparin therapeutic range: 66.0 - 100.0 seconds. Range based on correlation with therapeutic heparin activity range of 0.3 - 0.7 Units/mL. Current interpretive data was last revised on 2023. Blood 08/03/2025 4:16 PM CDT 08/03/2025 4:34 PM CDT Narrative [facility] - 08/03/2025 4:43 PM CDT Baseline prior to bivalirudin initiation. Joe Romeo HAND SPINNER LAB BLOOD ORDERABLES Final Re sult Performing Organization Address [facility] Co de Phone Number [facility] of [employer] [place] [address] * Protime-INR (08/03/2025 4:16 PM CDT) PT 12.9 10.2 - 13.5 sec INR 1.14 0.90 - 1.20 [facility] Comment: Interpretive data Oral anticoagulant therapeutic ranges: Venous thromboembolism prophylaxis or treatment: 2.0-3.0 CARDIOLOGY Standard range: 2.0-3.0 High-intensity range: 2.5-3.5 Refer to indication-specific guidelines for appropriate target ranges for prosthetic heart valve replacement. Current interpretive data was last revised on 2019. Blood 08/03/2025 4:16 PM CDT 08/03/2025 4:34 PM CDT Narrative [facility] - 08/03/2025 4:43 PM CDT Baseline prior to bivalirudin initiation. [facility] Thi Romeo HAND SPINNER LAB BLOOD ORDERABLES Final Re sult [facility] Department [place] [address] * (ABNORMAL) CBC without differential (08/03/2025 4:16 PM CDT) WBC 7.86 3.80 - 9.90 K/cumm Hgb 9.1(L) 13.0 - 17.5 g/dL [facility] Hct 28.9(L) 38.9 - 50.3 % [facility] Plt 119(L) 150 - 400 K/cumm [facility] MPV 10.1 9.1 - 12.3 fL [facility] RBC 3.33(L) 4.30 - 5.80 M/cumm [facility] MCV 86.8 81.3 - 96.4 fL [facility] MCH 27.3 27.1 - 33.3 pg [facility] MCHC 31.5(L) 32.3 - 35.7 g/dL [facility] RDW CV 15.6(H) 11.1 - 14.9 % [facility] RDW SD 49.2(H) 35.7 - 48.1 fL [facility] NRBC abs 0.00 0.00 - 0.01 K/cumm [facility] Blood 08/03/2025 4:16 PM CDT 08/03/2025 4:30 PM CDT Narrative [facility] - 08/03/2025 4:42 PM CDT Baseline prior to bivalirudin initiation. [facility] HAND SPINNER LAB BLOOD ORDERABLES Final Re sult Performing Organization Address City/[facility]/ZIP [place] [address] * POCT glucose (08/03/2025 4:15 PM CDT) Glucose, POC 162 70 - 199 mg/dL Blood 08/03/2025 4:15 PM CDT 08/03/2025 4:15 PM CDT Washington Zaman MD LAB POCT ORDERABLES - DEVICE Final Result Performing Organization Address [facility] [place] [address] * POCT glucose (08/03/2025 1:04 PM CDT) Glucose, POC 173 70 - 199 mg/dL Blood 08/03/2025 1:04 PM CDT 08/03/2025 1:04 PM CDT Washington Zaman MD LAB POCT ORDERABLES - DEVICE Final Result Performing Organization Address [facility] de Phone Number [facility] [place] [address] * US Vein Duplex Lower Extremity Bilateral Complete (08/03/2025 12:27 PM CDT) Anatomical Region Laterality Modality Vascular Bilateral Ultrasound 08/03/2025 11:1 1 AM CDT Narrative 08/04/2025 10:39 AM CDT [employer] [facility] - Department of Vascular Surgery, Vascular Laboratory [address] [place] [id number] Lower Extremity Venous Ultrasound Report Patient Name: SHERICE ARMAS : 1945 (80y 4m) Study Date: 08/03/2025 11:11:33 AM Sex: M Tech: Location: [id number] Ref Provider: HENNY KLEIN Quality: Adequate Order Provider: HENNY KLEIN PROCEDURES: Vascular Report: Venous Duplex imaging was performed bilaterally in the lower extremities. The common femoral, femoral, popliteal, posterior tibial, peroneal veins were evaluated for patency, spontaneity and phasicity with Doppler, compression and augmentation maneuvers. Great saphenous vein proximal at the junction was evaluated with compression maneuvers. INDICATIONS: Swelling lower extremity, bilateral. FINDINGS: Performing Algebraist: Lory De La Fuente RVT, RDMS. Right: Duplex scan reveals hyperechoic, intraluminal, non-compressible material with wall thickening. The finding is consistent with chronic deep vein thrombosis in the right lower extremity. Deep veins involved include the right proximal femoral vein and peroneal veins. No evidence of superficial vein thrombus on the right. Left: Venous Doppler signals in the left lower extremity are within normal limits for spontaneity and phasicity and respond normally to augmentation maneuvers. No evidence of deep vein thrombus by duplex, proximal to the calf. No evidence of superficial vein thrombus on the left. Comments: Unable to visualize and assess the left common femoral, saphenofemoral junction, proximal femoral, and proximal profunda femoral veins due to left groin central line and associated bandages. Limited visualization of the deep calf veins due to edema and body habitus. CONCLUSIONS: 1. There is chronic deep vein thrombosis (post-thrombotic changes) in the right lower extremity. 2. There is no evidence of acute deep vein thrombosis on the left. Noninvasive venous studies cannot rule out isolated calf vein obstruction. HISTORY: 80 year old male who presents with s/p replace aneurysm ascending aortic hemiarch, replace AV, MAZE and sternal closing - PREVIOUS STUDIES: No previous studies for comparison. DISCLAIMER: The study images and the final report will be retained in the patient chart by the Vascular Laboratory for the legally required time period. This chart constitutes the legal record of any testing performed. ATTESTATION: I have reviewed and interpreted the pertinent images and measurements of this study. I attest to the conclusions in the final report that is provided above. Electronically Signed By: Vincent Khan MD FACS 08/04/2025 9:24:20 AM CDT Procedure Note Vincent Khan MD - 08/04/2025 [facility] - Department of Vascular Surgery,Vascular Laboratory [address] [place] [address] Lower Extremity Venous Ultrasound Report Patient Name: SHERICE ARMAS : 1945 (80y 4m) Study Date: 08/03/2025 11:11:33 AM Sex: M Tech: Location: [id number] Ref Provider: HENNY KLEIN Quality: Adequate Order Provider: HENNY KLEIN PROCEDURES: Vascular Report: Venous Duplex imaging was performed bilaterally in the lower extremities.The common femoral, femoral, popliteal, posterior tibial, peroneal veins wereevaluated for patency, spontaneity and phasicity with Doppler, compression and augmentationmaneuvers. Great saphenous vein proximal at the junction was evaluated with compressionmaneuvers. INDICATIONS: Swelling lower extremity, bilateral. FINDINGS: Performing Algebraist: Lory De La Fuente RVT, RDMS. Right: Duplex scan reveals hyperechoic, intraluminal, non-compressible materialwith wall thickening. The finding is consistent with chronic deep vein thrombosis inthe right lower extremity. Deep veins involved include the right proximal femoralvein and peroneal veins. No evidence of superficial vein thrombus on the right. Left: Venous Doppler signals in the left lower extremity are within normallimits for spontaneity and phasicity and respond normally to augmentation maneuvers.No evidence of deep vein thrombus by duplex, proximal to the calf. No evidence ofsuperficial vein thrombus on the left. Comments: Unable to visualize and assess the left common femoral, saphenofemoraljunction, proximal femoral, and proximal profunda femoral veins due to left groin centralline and associated bandages. Limited visualization of the deep calf veins due toedema and body habitus. CONCLUSIONS: 1. There is chronic deep vein thrombosis (post-thrombotic changes) in theright lower extremity. 2. There is no evidence of acute deep vein thrombosis on the left.Noninvasive venous studies cannot rule out isolated calf vein obstruction. HISTORY: 80 year old male who presents with s/p replace aneurysm ascending aortichemiarch, replace AV, MAZE and sternal closing - PREVIOUS STUDIES: No previous studies for comparison. DISCLAIMER: The study images and the final report will be retained in the patientchart by the Vascular Laboratory for the legally required time period. This chartconstitutes the legal record of any testing performed. ATTESTATION: I have reviewed and interpreted the pertinent images and measurements ofthis study. I attest to the conclusions in the final report that is provided above. Electronically Signed By: Vincent Khan MD, FACS 08/04/2025 9:24:20 AM CDT us Henny Klein HAND SPINNER IMG US PROCEDURES Tami l Result * XR Abdomen Ap 1 Vw (08/03/2025 12:09 PM CDT) Anatomical Region Laterality Modality Body, Abdomen N/A Digital Radiogra phy 08/03/2025 1:13 PM CDT Impressions 08/03/2025 1:14 PM CDT Interval gastric tube placement side port and distal tip in gastric body. Dictated by: Marium Mccoy M.D. The radiology attending physician has personally reviewed this study, and had reviewed and/or edited this written report and agrees with it. Electronically signed by: Paty Herrera M.D. Narrative 08/03/2025 1:14 PM CDT EXAMINATION: Abdomen, one view. HISTORY: Check tube placement. 80-year-old with ascending aortic aneurysm status post repair. COMPARISON: Radiograph 08/03/2025. Procedure Note Paty Herrera MD - 08/03/2025 EXAMINATION: Abdomen, one view. HISTORY: Check tube placement. 80-year-old with ascending aortic aneurysm status post repair. COMPARISON: Radiograph 08/03/2025. IMPRESSION: Interval gastric tube placement side port and distal tip in gastric body. Dictated by: Marium Mccoy M.D. The radiology attending physician has personally reviewed this study, and had reviewed and/or edited this written report and agrees with it. Electronically signed by: Paty Herrera M.D. us Thoa Lenore Romeo HAND SPINNER IMG XR PROCEDURES Final Resul t * Lactate, whole blood (08/03/2025 10:24 AM CDT) Lactate, bld 1.1 0.7 - 2.0 mmol/L Blood 08/03/2025 10:2 4 AM CDT 08/03/2025 10:34 AM CDT us Thoa Lenore Romeo HAND SPINNER LAB BLOOD ORDERABLES Final Re sult [facility] Department [place] [address] * (ABNORMAL) Blood gas, venous (08/03/2025 10:24 AM CDT) pH, Venous 7.33 7.32 - 7.43 PCO2, Venous 53(H) 40 - 50 mmHg [facility] PO2, Venous 54 mmHg [facility] Comment: Interpretive Data No Reference Range Established Current Interpretive Data was last revised on 2018. HCO3 Venous, Calculated 27 20 - 30 mmol/L [facility] BE, venous 1 mmol/L [facility] Comment: Interpretive Data No Reference Range Established Current Interpretive Data was last revised on 2018. Blood 08/03/2025 10:2 4 AM CDT 08/03/2025 10:34 AM CDT Washington Zaman MD LAB BLOOD ORDERABLES Final Re sult Performing Organization Address City/[facility]/ZIP Co de Phone Number [facility] [employer] [place] [address] * POCT glucose (08/03/2025 9:22 AM CDT) Glucose, POC 187 70 - 199 mg/dL Comment:Glu2: RN/MD Notified Glucose comment 1 Glu2: RN/MD Notified [facility] Blood 08/03/2025 9:22 AM CDT 08/03/2025 9:22 AM CDT Washington Zaman MD LAB POCT ORDERABLES - [place]ICE [place] [address] * XR Abdomen 1 View AP (08/03/2025 8:50 AM CDT) Anatomical Region Laterality Modality Body, Abdomen N/A Digital Radiogra phy 08/03/2025 9:31 AM CDT Impressions 08/03/2025 3:50 PM CDT Left atrial appendage closure device. Aortic valve replacement. Median sternotomy plates and the retained epicardial pacer wires. There is a Mckinney catheter in place.T here is partially imaged pericardial and mediastinal drains. There is minimal gaseous distention of colon loops throughout the abdomen with air to the level of the rectum likely representing postoperative ileus. Dictated by: Marium Mccoy M.D. The radiology attending physician has personally reviewed this study, and had reviewed and/or edited this written report and agrees with it. Electronically signed by: Stephanie Lugo M.D. Narrative 08/03/2025 3:50 PM CDT EXAMINATION: Abdomen, one view. HISTORY: 80-year-old, descending aortic aneurysm status post repair. COMPARISON: CT 04/25/2025. Procedure Note Stephanie Lugo MD - 08/03/2025 EXAMINATION: Abdomen, one view. HISTORY: 80-year-old, descending aortic aneurysm status post repair. COMPARISON: CT 04/25/2025. IMPRESSION: Left atrial appendage closure device. Aortic valve replacement. Median sternotomy plates and the retained epicardial pacer wires. There is a Mckinney catheter in place.T here is partially imaged pericardial and mediastinal drains. There is minimal gaseous distention of colon loops throughout the abdomen with air to the level of the rectum likely representing postoperative ileus. Dictated by: Marium Mccoy M.D. The radiology attending physician has personally reviewed this study, and had reviewed and/or edited this written report and agrees with it. Electronically signed by: Stephanie Lugo M.D. us Thoa Lenore Romeo HAND SPINNER IMG XR PROCEDURES Final Resul t * (ABNORMAL) POCT glucose (08/03/2025 7:54 AM CDT) Glucose, POC 221(H) 70 - 199 mg/dL Blood 08/03/2025 7:54 AM CDT 08/03/2025 7:54 AM CDT us Washington Zaman MD LAB POCT ORDERABLES - DEVICE Final Result [facility] Department [place] [address] * Critical Care (08/03/2025 7:04 AM CDT) Narrative Char Rolle, - 08/03/2025 7:04 AM CDT Char Rolle, 08/03/2025 6:38 PM Critical Care Performed by: Joe Romeo NP Authorized by: Joe Romeo NP CRITICAL CARE: Team: 83 CTICU Shift: AM Level of Billing: Subsequent Hospital Visit Level 3 My time spent with this patient was 80 minutes: Critical Provider Statement: I have seen and examined the patient on this day of service. I have reviewed and confirmed the history, physical exam, laboratory, and radiographic data as documented in the ICU note. I have reviewed and discussed my treatment plan with the patient's team and other medical/organizational effectiveness consultant staff. This time was in addition to and separate from care provided by other practitioners on this day of service. I spent time reviewing and interpreting data from bedside monitors, laboratory results, and imaging, I spent time discussing the management of this critically ill patient with consultants and the medical staff and I spent time documenting in the medical record us Joe Romeo NP IN CLINIC/BEDSIDE ORDERABLES Final Result * (ABNORMAL) eGFR (08/02/2025 11:51 PM CDT) eGFR 38(L) >=60 mL/min/1. 73 m2 Comment: Interpretive Data Reference Interval Normal >/= 90 mL/min/1.73m2 Mildly decreased* 60 - 89 mL/min/1.73m2 Mildly to moderately decreased 45 - 59 mL/min/1.73m2 Moderately to severely decreased 30 - 44 mL/min/1.73m2 Severely decreased 15 - 29 mL/min/1.73m2 Kidney Failure < 15 mL/min/1.73m2 *Relative to young adult level Estimated glomerular filtration rate is determined by the 2020 CKD-EPI equation recommended by the National Kidney Foundation (A Unifying Approach to GFR Estimation: Recommendations of the NKF-ASK Task Force on Reassessing the Inclusion of Race in Diagnosing Kidney Disease, JASN 2020). The CKD-EPI equation should not be used for patients with unstable renal function and has not been validated in children and those over 70. Current interpretive data was last reviewed 2021. Blood 08/02/2025 11:5 1 PM CDT 08/03/2025 12:20 AM CDT Leanne Rosario NP LAB BLOOD ORDERABLES F inal Result [facility] Department of [employer] [place] [address] * Calcium, ionized (08/02/2025 11:51 PM CDT) Pathologist [facility] Calcium, Ionized 4.60 4.50 - 5.10 mg/dL Blood 08/02/2025 11:5 1 PM CDT 08/02/2025 11:58 PM CDT Leanneolga Rosario NP LAB BLOOD ORDERABLES F inal Result Performing Organization Address City/[facility]/ZIP Co de Phone Number [facility] Department of [employer]™ [place] [address] * (ABNORMAL) CBC without differential (08/02/2025 11:51 PM CDT) WBC 9.91(H) 3.80 - 9.90 K/cumm Hgb 8.9(L) 13.0 - 17.5 g/dL [facility] Hct 28.7(L) 38.9 - 50.3 % [facility] Plt 127(L) 150 - 400 K/cumm [facility] MPV 10.2 9.1 - 12.3 fL [facility] RBC 3.29(L) 4.30 - 5.80 M/cumm [facility] MCV 87.2 81.3 - 96.4 fL [facility] MCH 27.1 27.1 - 33.3 pg [facility] MCHC 31.0(L) 32.3 - 35.7 g/dL [facility] RDW CV 15.5(H) 11.1 - 14.9 % [facility] RDW SD 48.8(H) 35.7 - 48.1 fL [facility] NRBC abs 0.00 0.00 - 0.01 K/cumm [facility] Blood 08/02/2025 11:5 1 PM CDT 08/03/2025 12:05 AM CDT Leanne Rosario NP LAB BLOOD ORDERABLES F inal Result Performing Organization Address City/[facility] Co de Phone Number [facility] Department [place] [address] * Phosphorus (08/02/2025 11:51 PM CDT) Phosphorus, pl 3.9 2.3 - 4.5 mg/dL Blood 08/02/2025 11:5 1 PM CDT 08/02/2025 11:58 PM CDT Leanne Rosario NP LAB BLOOD ORDERABLES F inal Result Performing Organization Address [facility] Co de Phone Number [facility] Department [place] [address] * (ABNORMAL) Magnesium (08/02/2025 11:51 PM CDT) Magnesium 2.7(H) 1.4 - 2.5 mg/dL Blood 08/02/2025 11:5 1 PM CDT 08/02/2025 11:58 PM CDT Leanne Rosario NP LAB BLOOD ORDERABLES F inal Result Performing Organization Address City/[facility]/ZIP Co de Phone Number [facility]ERNER [facility] Department [place] [address] * (ABNORMAL) Basic metabolic panel (08/02/2025 11:51 PM CDT) Sodium 141 135 - 145 mmol/L Potassium, pl 4.4 3.3 - 4.9 mmol/L [facility] Chloride 104 97 - 110 mmol/L [facility] CO2 27 22 - 32 mmol/L [facility] Anion gap 10 2 - 15 mmol/L [facility] BUN 33(H) 6 - 25 mg/dL [facility] Creatinine 1.79(H) 0.80 - 1.30 mg/dL [facility] Glucose 183 70 - 199 mg/dL [facility] Comment: Interpretive Data Fasting glucose >/= 126 mg/dl is diagnostic for diabetes. Fasting is defined as no caloric intake for at least 8 hours. Fasting glucose between 100 mg/dl to 125 mg/dl is diagnostic of prediabetes. In a patient with classic symptoms of hyperglycemia or hyperglycemic crisis, a random glucose >/= 200 mg/dl is diagnostic for diabetes. In the absence of unequivocal hyperglycemia, results should be confirmed by repeat testing. The classification and Diagnosis of Diabetes Diabetes Care 202; 46: S19-S40. Current interpretive data was last revised 2022. Calcium 8.6 8.5 - 10.3 mg/dL [facility] Blood 08/02/2025 11:5 1 PM CDT 08/02/2025 11:58 PM CDT Leanne Rosario NP LAB BLOOD ORDERABLES F inal Result [facility] [place] [address] * Critical Care (08/02/2025 9:36 PM CDT) Narrative Char Rolle DO - 08/02/2025 9:36 PM CDT Char Rolle DO 08/03/2025 10:43 AM Critical Care Performed by: Luann Banks NP Authorized by: Luann Banks NP CRITICAL CARE: Team: 83 CTICU Shift: PM Level of Billing: Subsequent Hospital Visit Level 3 My time spent with this patient was 60 minutes: Critical Provider Statement: I have seen and examined the patient on this day of service. I have reviewed and confirmed the history, physical exam, laboratory, and radiographic data as documented in the ICU note. I have reviewed and discussed my treatment plan with the patient's team and other medical/organizational effectiveness consultant staff. This time was in addition to and separate from care provided by other practitioners on this day of service. I spent time reviewing and interpreting data from bedside monitors, laboratory results, and imaging, I spent time discussing the management of this critically ill patient with consultants and the medical staff and I spent time documenting in the medical record us Luann Banks HAND SPINNER IN CLINIC/BEDSIDE OR DERABLES Final Result * POCT glucose (08/02/2025 8:47 PM CDT) Glucose, POC 116 70 - 199 mg/dL Blood 08/02/2025 8:47 PM CDT 08/02/2025 8:47 PM CDT us Washington Zaman MD LAB POCT ORDERABLES - DEVICE Final Result [facility] Department [place] [address] * XR Chest 1 View - in PM (08/02/2025 7:49 PM CDT) Anatomical Region Laterality Modality Body, Chest N/A Digital Radiogra phy 08/03/2025 11:5 8 AM CDT Impressions 08/03/2025 12:00 PM CDT The current study is compared with the prior radiograph dated 08/01/2025. Interval removal of an endotracheal tube. Again seen are sternal plates. A right internal jugular catheter is in place, tip overlies the superior vena cava. Again seen is a left atrial appendage clip. Interval removal of a Newbern-Caleb catheter. Again seen is an epicardial drain. Again seen is a prosthetic aortic valve. Mild pulmonary edema. Slightly increased left retrocardiac opacity which may represent atelectasis or aspiration changes. Small bilateral pleural effusions. Stable widening of the cardiomediastinal silhouette, likely representing postoperative changes. There is no pneumothorax. Dictated by: Jak Guajardo M.D. The radiology attending physician has personally reviewed this study, and had reviewed and/or edited this written report and agrees with it. Electronically signed by: Jessie Cruz M.D. Narrative 08/03/2025 12:00 PM CDT EXAMINATION: 1 view chest radiograph Procedure Note Jessie Cruz MD - 08/03/2025 EXAMINATION: 1 view chest radiograph IMPRESSION: The current study is compared with the prior radiograph dated 08/01/2025. Interval removal of an endotracheal tube. Again seen are sternal plates. A right internal jugular catheter is in place, tip overlies the superior vena cava. Again seen is a left atrial appendage clip. Interval removal of a Newbern-Caleb catheter. Again seen is an epicardial drain. Again seen is a prosthetic aortic valve. Mild pulmonary edema. Slightly increased left retrocardiac opacity which may represent atelectasis or aspiration changes. Small bilateral pleural effusions. Stable widening of the cardiomediastinal silhouette, likely representing postoperative changes. There is no pneumothorax. Dictated by: Jak Guajardo M.D. The radiology attending physician has personally reviewed this study, and had reviewed and/or edited this written report and agrees with it. Electronically signed by: Jessie Cruz M.D. Eula Blakely HAND SPINNER IMG XR PROCEDURES Final R esult * Potassium, whole blood (08/02/2025 4:35 PM CDT) Potassium, bld 4.0 3.3 - 4.9 mmol/L Blood 08/02/2025 4:35 PM CDT 08/02/2025 4:45 PM CDT Leanne Rosario HAND SPINNER LAB BLOOD ORDERABLES F inal Result Performing Organization Address City/[facility] Co de Phone Number [facility] [employer] [place] [address] * POCT glucose (08/02/2025 4:34 PM CDT) Glucose, POC 169 70 - 199 mg/dL Blood 08/02/2025 4:34 PM CDT 08/02/2025 4:34 PM CDT Washington Zaman MD LAB POCT ORDERABLES - DEVICE Final Result Performing Organization Address [facility] [place] [address] * POCT glucose (08/02/2025 12:02 PM CDT) Glucose, POC 188 70 - 199 mg/dL Blood 08/02/2025 12:0 2 PM CDT 08/02/2025 12:02 PM CDT Washington Zaman MD LAB POCT ORDERABLES - DEVICE Final Result Performing Organization Address [facility] Co de Phone Number [facility] Department [place] [address] * Potassium, whole blood (08/02/2025 12:01 PM CDT) Potassium, bld 4.3 3.3 - 4.9 mmol/L Blood 08/02/2025 12:0 1 PM CDT 08/02/2025 12:19 PM CDT Leanne Rosario HAND SPINNER LAB BLOOD ORDERABLES F inal Result Performing Organization Address City/[facility] Co de Phone Number [facility] Department [place] [address] * (ABNORMAL) Blood gas, arterial (08/02/2025 12:01 PM CDT) [facility] pH, Art 7.35 7.35 - 7.45 PCO2, Arterial 41 35 - 45 mmHg [facility] PO2, Arterial 151(H) 83 - 108 mmHg [facility] HCO3 Art (Calculated) 22 20 - 30 mmol/L [facility] BE, art -3 mmol/L [facility] Comment: Interpretive Data No Reference Range Established Current Interpretive Data was last revised on 2017 O2 Sat Art (Measured) 100(H) 90 - 95 % [facility] Blood 08/02/2025 12:0 1 PM CDT 08/02/2025 12:19 PM CDT Eula Blakely HAND SPINNER LAB BLOOD ORDERABLES Tami l Result Performing Organization Address City/[facility]/ZIP Co de Phone Number [facility] Department [place] [address] * Potassium, whole blood (08/02/2025 8:13 AM CDT) [facility] Potassium, bld 4.5 3.3 - 4.9 mmol/L Blood 08/02/2025 8:13 AM CDT 08/02/2025 8:35 AM CDT Eula Blakely NP LAB BLOOD ORDERABLES Tami l Result [facility] [place] [address] * (ABNORMAL) eGFR (08/02/2025 8:13 AM CDT) [facility] eGFR 33(L) >=60 mL/min/1. 73 m2 Comment: Interpretive Data Reference Interval Normal >/= 90 mL/min/1.73m2 Mildly decreased* 60 - 89 mL/min/1.73m2 Mildly to moderately decreased 45 - 59 mL/min/1.73m2 Moderately to severely decreased 30 - 44 mL/min/1.73m2 Severely decreased 15 - 29 mL/min/1.73m2 Kidney Failure < 15 mL/min/1.73m2 *Relative to young adult level Estimated glomerular filtration rate is determined by the 2020 CKD-EPI equation recommended by the National Kidney Foundation (A Unifying Approach to GFR Estimation: Recommendations of the NKF-ASK Task Force on Reassessing the Inclusion of Race in Diagnosing Kidney Disease, JASN 2020). The CKD-EPI equation should not be used for patients with unstable renal function and has not been validated in children and those over 70. Current interpretive data was last reviewed 2021. Blood 08/02/2025 8:13 AM CDT 08/02/2025 8:40 AM CDT Eula Blakely NP LAB BLOOD ORDERABLES Tami l Result Performing Organization Address City/[facility]/ZIP Co de Phone Number [facility] Department [place] [address] * Lactate, whole blood (08/02/2025 8:13 AM CDT) [facility] Lactate, bld 1.4 0.7 - 2.0 mmol/L Blood 08/02/2025 8:13 AM CDT 08/02/2025 8:35 AM CDT Eula Blakely NP LAB BLOOD ORDERABLES Tami l Result [facility] Department [place] [address] * (ABNORMAL) CBC without differential (08/02/2025 8:13 AM CDT) [facility] WBC 8.79 3.80 - 9.90 K/cumm Hgb 9.7(L) 13.0 - 17.5 g/dL [facility] Hct 30.5(L) 38.9 - 50.3 % [facility] Plt 120(L) 150 - 400 K/cumm [facility] MPV 10.2 9.1 - 12.3 fL [facility] RBC 3.56(L) 4.30 - 5.80 M/cumm [facility] MCV 85.7 81.3 - 96.4 fL [facility] MCH 27.2 27.1 - 33.3 pg [facility] MCHC 31.8(L) 32.3 - 35.7 g/dL [facility] RDW CV 15.1(H) 11.1 - 14.9 % [facility] RDW SD 46.7 35.7 - 48.1 fL [facility] NRBC abs 0.00 0.00 - 0.01 K/cumm [facility] Blood 08/02/2025 8:13 AM CDT 08/02/2025 8:40 AM CDT Eula Blakely HAND SPINNER LAB BLOOD ORDERABLES Tami cervantes Result [facility] Department [place] [address] * (ABNORMAL) Comprehensive metabolic panel (08/02/2025 8:13 AM CDT) Sodium 140 135 - 145 mmol/L Potassium, pl 4.7 3.3 - 4.9 mmol/L [facility] Chloride 105 97 - 110 mmol/L [facility] CO2 25 22 - 32 mmol/L [facility] Anion gap 10 2 - 15 mmol/L [facility] BUN 29(H) 6 - 25 mg/dL [facility] Creatinine 2.00(H) 0.80 - 1.30 mg/dL [facility] Glucose 172 70 - 199 mg/dL [facility] Comment: Interpretive Data Fasting glucose >/= 126 mg/dl is diagnostic for diabetes. Fasting is defined as no caloric intake for at least 8 hours. Fasting glucose between 100 mg/dl to 125 mg/dl is diagnostic of prediabetes. In a patient with classic symptoms of hyperglycemia or hyperglycemic crisis, a random glucose >/= 200 mg/dl is diagnostic for diabetes. In the absence of unequivocal hyperglycemia, results should be confirmed by repeat testing. The classification and Diagnosis of Diabetes Diabetes Care 2021; 46: S19-S40. Current interpretive data was last revised 2022. Calcium 8.3(L) 8.5 - 10.3 mg/dL [facility] Bilirubin, total 0.5 0.1 - 1.2 mg/dL [facility] Protein, pl 6.4(L) 6.5 - 8.5 g/dL [facility] Albumin 3.8 3.5 - 5.0 g/dL [facility] Alk phos <20(L) 40 - 130 Units/L [facility] Comment:Repeated and Verifie d ALT 54 7 - 55 Units/L [facility] AST 137(H) 10 - 50 Units/L [facility] Blood 08/02/2025 8:13 AM CDT 08/02/2025 8:40 AM CDT Eula Blakely NP LAB BLOOD ORDERABLES Tami l Result [facility] Department of [employer] [place] [address] * POCT glucose (08/02/2025 8:11 AM CDT) Glucose, POC 159 70 - 199 mg/dL Blood 08/02/2025 8:11 AM CDT 08/02/2025 8:11 AM CDT us Washington Zaman MD LAB POCT ORDERABLES - DEVICE Final Result [facility] Department of [employer] [place] [address] * POCT glucose (08/02/2025 6:16 AM CDT) Glucose, POC 176 70 - 199 mg/dL Blood 08/02/2025 6:16 AM CDT 08/02/2025 6:16 AM CDT us Washington Zaman MD LAB POCT ORDERABLES - DEVICE Final Result [facility] Department [place] [address] * Critical Care (08/02/2025 5:52 AM CDT) Narrative Char Rolle, - 08/02/2025 5:52 AM CDT Char Rolle, 08/02/2025 9:11 PM Critical Care Performed by: Eula Blakely NP Authorized by: Eula Blakely NP CRITICAL CARE: Team: 83 CTICU Shift: AM Level of Billing: Critical Care My time spent with this patient was 75 minutes: Critical Provider Statement: I have seen and examined the patient on this day of service. I have reviewed and confirmed the history, physical exam, laboratory and radiologic data as documented in the signed ICU note. I have reviewed and discussed my treatment plan with the ICU team and other medical/organizational effectiveness consultant staff, making frequent assessments and decisions regarding this patient's complex medical care. Critical Care time was exclusive of time spent performing separately billed procedures, treating other patients, and teaching. This time was in addition to and separate from critical care provided by other practitioners in my group on this day of service. Critical Care was necessary to treat or prevent imminent or life-threatening deterioration of the following conditions: I spent time reviewing and interpreting data from bedside monitors, laboratory results, and imaging, I spent time documenting in the medical record and I spent time discussing the management of this critically ill patient with consultants and the medical staff us Eula Blakely NP IN CLINIC/BEDSIDE ORDERAB LES Final Result * (ABNORMAL) Potassium, whole blood (08/02/2025 4:32 AM CDT) Potassium, bld 5.1(H) 3.3 - 4.9 mmol/L Blood 08/02/2025 4:32 AM CDT 08/02/2025 4:43 AM CDT Leanne Rosario NP LAB BLOOD ORDERABLES F inal Result Performing Organization Address [facility] Co de Phone Number [facility] [place] [address] * POCT glucose (08/02/2025 4:16 AM CDT) Glucose, POC 168 70 - 199 mg/dL Blood 08/02/2025 4:16 AM CDT 08/02/2025 4:16 AM CDT Washington Zaman MD LAB POCT ORDERABLES - DEVICE Final Result Performing Organization Address [facility] de Phone Number [facility] [place] [address] * POCT glucose (08/02/2025 2:08 AM CDT) Glucose, POC 161 70 - 199 mg/dL Blood 08/02/2025 2:08 AM CDT 08/02/2025 2:08 AM CDT Washington Zaman MD LAB POCT ORDERABLES - DEVICE Final Result Performing Organization Address [facility] de Phone Number [facility] [employer] [place] [address] * Oxyhemoglobin, pulmonary artery (08/01/2025 11:52 PM CDT) Oxyhemoglobin, PA 65.0 % Comment: Interpretive Data No reference range established. Current interpretive data was last revised 2020. Blood 08/01/2025 11:5 2 PM CDT 08/02/2025 12:04 AM CDT us Eula Blakely NP LAB BLOOD ORDERABLES Tami l Result [facility] of [employer] [place] [address] * (ABNORMAL) Potassium, whole blood (08/01/2025 11:52 PM CDT) Potassium, bld 5.0(H) 3.3 - 4.9 mmol/L Blood 08/01/2025 11:5 2 PM CDT 08/02/2025 12:03 AM CDT Eula Blakely NP LAB BLOOD ORDERABLES Tami l Result Performing Organization Address [facility] Co de Phone Number [facility] [place] [address] * (ABNORMAL) eGFR (08/01/2025 11:52 PM CDT) eGFR 36(L) >=60 mL/min/1. 73 m2 Comment: Interpretive Data Reference Interval Normal >/= 90 mL/min/1.73m2 Mildly decreased* 60 - 89 mL/min/1.73m2 Mildly to moderately decreased 45 - 59 mL/min/1.73m2 Moderately to severely decreased 30 - 44 mL/min/1.73m2 Severely decreased 15 - 29 mL/min/1.73m2 Kidney Failure < 15 mL/min/1.73m2 *Relative to young adult level Estimated glomerular filtration rate is determined by the 2020 CKD-EPI equation recommended by the National Kidney Foundation (A Unifying Approach to GFR Estimation: Recommendations of the NKF-ASK Task Force on Reassessing the Inclusion of Race in Diagnosing Kidney Disease, JASN 2020). The CKD-EPI equation should not be used for patients with unstable renal function and has not been validated in children and those over 70. Current interpretive data was last reviewed 2021. Blood 08/01/2025 11:5 2 PM CDT 08/02/2025 12:04 AM CDT Leanne Rosario HAND SPINNER LAB BLOOD ORDERABLES F inal Result [facility] [place] [address] * Calcium, ionized (08/01/2025 11:52 PM CDT) [facility] Calcium, Ionized 4.50 4.50 - 5.10 mg/dL Blood 08/01/2025 11:5 2 PM CDT 08/02/2025 12:07 AM CDT Leanneolga Rosario HAND SPINNER LAB BLOOD ORDERABLES F inal Result Performing Organization Address [facility] Co de Phone Number [facility] [place] [address] * (ABNORMAL) CBC without differential (08/01/2025 11:52 PM CDT) [facility] WBC 6.82 3.80 - 9.90 K/cumm Hgb 10.2(L) 13.0 - 17.5 g/dL [facility] Hct 30.8(L) 38.9 - 50.3 % [facility] Plt 120(L) 150 - 400 K/cumm [facility] Comment:No clot detected in sample. MPV 9.7 9.1 - 12.3 fL [facility] RBC 3.68(L) 4.30 - 5.80 M/cumm [facility] MCV 83.7 81.3 - 96.4 fL [facility] MCH 27.7 27.1 - 33.3 pg [facility] MCHC 33.1 32.3 - 35.7 g/dL [facility] RDW CV 15.0(H) 11.1 - 14.9 % [facility] RDW SD 45.7 35.7 - 48.1 fL [facility] NRBC abs 0.00 0.00 - 0.01 K/cumm [facility] Blood 08/01/2025 11:5 2 PM CDT 08/02/2025 12:20 AM CDT Leanne Rosario HAND SPINNER LAB BLOOD ORDERABLES F inal Result Performing Organization Address [facility] Co de Phone Number [facility] [place] [address] * Phosphorus (08/01/2025 11:52 PM CDT) [facility] Phosphorus, pl 3.6 2.3 - 4.5 mg/dL Blood 08/01/2025 11:5 2 PM CDT 08/02/2025 12:04 AM CDT Leanne Rosario HAND SPINNER LAB BLOOD ORDERABLES F inal Result Performing Organization Address [facility] de Phone Number [facility] Department of [employer] [place] [address] * Magnesium (08/01/2025 11:52 PM CDT) [facility] Magnesium 2.3 1.4 - 2.5 mg/dL Blood 08/01/2025 11:5 2 PM CDT 08/02/2025 12:04 AM CDT Leanneolga Rosario HAND SPINNER LAB BLOOD ORDERABLES F inal Result Performing Organization Address [facility] de Phone Number [facility] [employer] [place] [address] * (ABNORMAL) Blood gas, arterial (08/01/2025 11:52 PM CDT) [facility] pH, Art 7.32(L) 7.35 - 7.45 PCO2, Arterial 41 35 - 45 mmHg [facility] PO2, Arterial 124(H) 83 - 108 mmHg [facility] HCO3 Art (Calculated) 21 20 - 30 mmol/L [facility] BE, art -4 mmol/L [facility] Comment: Interpretive Data No Reference Range Established Current Interpretive Data was last revised on 2017 O2 Sat Art (Measured) 99(H) 90 - 95 % [facility] Blood 08/01/2025 11:5 2 PM CDT 08/02/2025 12:03 AM CDT us Eula Blakely NP LAB BLOOD ORDERABLES Tami l Result Performing Organization Address [facility] Co de Phone Number [facility] Department of [employer] [place] [address] * (ABNORMAL) Hepatic function panel (08/01/2025 11:52 PM CDT) Bilirubin, total 0.7 0.1 - 1.2 mg/dL Bilirubin, direct 0.4(H) 0.1 - 0.3 mg/dL [facility] Protein, pl 6.4(L) 6.5 - 8.5 g/dL [facility] Albumin 3.8 3.5 - 5.0 g/dL [facility] Alk phos <20(L) 40 - 130 Units/L [facility] Comment:Repeated and Verifie d ALT 76(H) 7 - 55 Units/L [facility] Comment:Repeated and Verifie d AST 194(H) 10 - 50 Units/L [facility] Comment:Repeated and Verifie d Blood 08/01/2025 11:5 2 PM CDT 08/02/2025 12:04 AM CDT us Washington Zaman MD LAB BLOOD ORDERABLES Final Re sult Performing Organization Address [facility] Co de Phone Number [facility] Department of [employer] [place] [address] * (ABNORMAL) Basic metabolic panel (08/01/2025 11:52 PM CDT) Sodium 140 135 - 145 mmol/L Potassium, pl 5.3(H) 3.3 - 4.9 mmol/L [facility] Chloride 106 97 - 110 mmol/L [facility] CO2 23 22 - 32 mmol/L [facility] Anion gap 11 2 - 15 mmol/L [facility] BUN 29(H) 6 - 25 mg/dL [facility] Creatinine 1.84(H) 0.80 - 1.30 mg/dL [facility] Glucose 150 70 - 199 mg/dL [facility] Comment: Interpretive Data Fasting glucose >/= 126 mg/dl is diagnostic for diabetes. Fasting is defined as no caloric intake for at least 8 hours. Fasting glucose between 100 mg/dl to 125 mg/dl is diagnostic of prediabetes. In a patient with classic symptoms of hyperglycemia or hyperglycemic crisis, a random glucose >/= 200 mg/dl is diagnostic for diabetes. In the absence of unequivocal hyperglycemia, results should be confirmed by repeat testing. The classification and Diagnosis of Diabetes Diabetes Care 2021; 46: S19-S40. Current interpretive data was last revised 2022. Calcium 8.6 8.5 - 10.3 mg/dL [facility] Blood 08/01/2025 11:5 2 PM CDT 08/02/2025 12:04 AM CDT us Leanne Rosario NP LAB BLOOD ORDERABLES F inal Result Performing Organization Address City/[facility]/ZIP Co de Phone Number [facility] Department of [employer] [place] [address] * POCT glucose (08/01/2025 11:51 PM CDT) [facility] Signature Glucose, POC 147 70 - 199 mg/dL Blood 08/01/2025 11:5 1 PM CDT 08/01/2025 11:51 PM CDT us Washington Zaman MD LAB POCT ORDERABLES - DEVICE Final Result Performing Organization Address [facility]/ZIP Co de Phone Number [facility] Department of [employer] [place] [address] * Critical Care (08/01/2025 10:37 PM CDT) Narrative Char Rolle DO - 08/01/2025 10:37 PM CDT Char Rolle DO 08/02/2025 9:44 AM Critical Care Performed by: Leanne Rosario NP Authorized by: Leanne Rosario NP CRITICAL CARE: Team: 83 CTICU Shift: PM Level of Billing: Critical Care My time spent with this patient was 120 minutes: Critical Provider Statement: I have seen and examined the patient on this day of service. I have reviewed and confirmed the history, physical exam, laboratory and radiologic data as documented in the signed ICU note. I have reviewed and discussed my treatment plan with the ICU team and other medical/organizational effectiveness consultant staff, making frequent assessments and decisions regarding this patient's complex medical care. Critical Care time was exclusive of time spent performing separately billed procedures, treating other patients, and teaching. This time was in addition to and separate from critical care provided by other practitioners in my group on this day of service. Critical Care was necessary to treat or prevent imminent or life-threatening deterioration of the following conditions: I spent time reviewing and interpreting data from bedside monitors, laboratory results, and imaging, I spent time discussing the management of this critically ill patient with consultants and the medical staff and I spent time documenting in the medical record us Leanne Rosario NP IN CLINIC/BEDSIDE JAYLIN GOODE Final Result * POCT glucose (08/01/2025 9:59 PM CDT) [facility] Signature Glucose, POC See Comment 70 - 199 mg/dL Comment:Credited, interface order error Blood 08/01/2025 9:59 PM CDT 08/01/2025 9:59 PM CDT us Washington Zaman MD LAB POCT ORDERABLES - DEVICE Edited Result - Final [facility] Department [place] [address] * Calcium, ionized, whole blood (08/01/2025 9:58 PM CDT) Ca, ionized, bld See Comment 4.50 - 5.10 mg/dL Comment:Credited, collection error. Results removed per Theodora Alfonso (RN)on 08/01/25. BPM Blood 08/01/2025 9:58 PM CDT 08/01/2025 10:09 PM CDT Washington Zaman MD LAB BLOOD ORDERABLES Edited R replaced by [facility] - Final Performing Organization Address [facility] Co de Phone Number [facility] [employer] [place] [address] * Potassium, whole blood (08/01/2025 9:56 PM CDT) Pathologist [facility] Potassium, bld See Comment 3.3 - 4.9 Comment:Credited, collection error. Results removed per Theodora Alfonso (DONA)on 08/01/25. BPM Blood 08/01/2025 9:56 PM CDT 08/01/2025 10:08 PM CDT Washington Zaman MD LAB BLOOD ORDERABLES Edited R [facility] Final Performing Organization Address [facility] Co de Phone Number [facility] [place] [place] [address] * Blood gas, arterial (08/01/2025 9:56 PM CDT) pH, Art See Comment 7.35 - 7.45 Comment:Credited, collection error. Results removed per Theodora Alfonso (DONA)on 08/01/25. BPM PCO2, Arterial See Comment 35 - 45 [facility] Comment:Credited, collection error. Results removed per Theodora CHU)on 08/01/25. BPM PO2, Arterial See Comment 83 - 108 [facility] Comment:Credited, collection error. Results removed per Theodora Alfonso (RN)on 08/01/25. BPM HCO3 Art (Calculated) See Comment 20 - 30 [facility] Comment:Credited, collection error. Results removed per Theodora Alfonso (RN)on 08/01/25. BPM BE, art See Comment [facility] Comment: Credited, collection error. Results removed per Theodora CHU)on 08/01/25. BPM Interpretive Data No Reference Range Established Current Interpretive Data was last revised on 2017 O2 Sat Art (Measured) See Comment 90 - 95 [facility] Comment:Credited, collection error. Results removed per Theodora Alfonso (DONA)on 08/01/25. BPM Blood 08/01/2025 9:56 PM CDT 08/01/2025 10:08 PM CDT us Washington Zaman MD LAB BLOOD ORDERABLES Edited R esult - Final [facility] Department [place] [address] * eGFR (08/01/2025 8:41 PM CDT) eGFR See Comment >=60 Comment: Credited, collection error. Remove Results per Theodora CHU) on 08/02/2025. BPM Interpretive Data Reference Interval Normal >/= 90 mL/min/1.73m2 Mildly decreased* 60 - 89 mL/min/1.73m2 Mildly to moderately decreased 45 - 59 mL/min/1.73m2 Moderately to severely decreased 30 - 44 mL/min/1.73m2 Severely decreased 15 - 29 mL/min/1.73m2 Kidney Failure < 15 mL/min/1.73m2 *Relative to young adult level Estimated glomerular filtration rate is determined by the 2020 CKD-EPI equation recommended by the National Kidney Foundation (A Unifying Approach to GFR Estimation: Recommendations of the NKF-ASK Task Force on Reassessing the Inclusion of Race in Diagnosing Kidney Disease, JASN 202). The CKD-EPI equation should not be used for patients with unstable renal function and has not been validated in children and those over 70. Current interpretive data was last reviewed 2021. Blood 08/01/2025 8:41 PM CDT 08/01/2025 9:15 PM CDT Eula Blakely NP LAB BLOOD ORDERABLES Edit ed Result - Final Performing Organization Address City/[facility] Co de Phone Number [facility] of [employer] [place] [address] * (ABNORMAL) CBC without differential (08/01/2025 8:41 PM CDT) WBC 14.83(H) 3.80 - 9.90 K/cumm Hgb 13.1 13.0 - 17.5 g/dL [facility] Hct 40.6 38.9 - 50.3 % [facility] Plt 257 150 - 400 K/cumm [facility] Comment:Consistent with suze ent history. MPV 9.5 9.1 - 12.3 fL [facility] RBC 4.70 4.30 - 5.80 M/cumm [facility] MCV 86.4 81.3 - 96.4 fL [facility] MCH 27.9 27.1 - 33.3 pg [facility] MCHC 32.3 32.3 - 35.7 g/dL [facility] RDW CV 16.9(H) 11.1 - 14.9 % [facility] RDW SD 53.3(H) 35.7 - 48.1 fL [facility] NRBC abs 0.00 0.00 - 0.01 K/cumm [facility] Blood 08/01/2025 8:41 PM CDT 08/01/2025 9:01 PM CDT Eula Blakely NP LAB BLOOD ORDERABLES Edit ed Result - Final [facility] [employer] [place] [address] * Triglycerides (08/01/2025 8:41 PM CDT) Triglycerides See Comment <=149 mg/dL Comment: Credited, collection error. Remove Results per Theodora Alfonso (RN) on 08/02/2025. BPM Interpretive Data Ages < or = 9 years Acceptable: <75 mg/dL Borderline high: 75-99 mg/dL High: >or= 100 mg/dL Ages 10 to 20 years Acceptable: <90 mg/dL Borderline high: 90-129 mg/dL High: >or= 130 mg/dL Ages > or = 20 years Desirable: <150 mg/dL Borderline high: 150-199 mg/dL High: 200-499 mg/dL Very high: >or= 499 mg/dL Literature References: 1. Expert Panel on Integrated Guidelines for Cardiovascular Health and Risk Reduction in Children and Adolescents. Pediatrics 2011;128:S213 2. NCEP Expert Panel. Circulation 2004;110:227 Current Interpretive Data was last revised on 2018. Blood 08/01/2025 8:41 PM CDT 08/01/2025 9:15 PM CDT us Washington Zaman MD LAB BLOOD ORDERABLES Edited R esult - Final Performing Organization Address City/[facility] Co de Phone Number [facility] [employer] [place] [address] * Phosphorus (08/01/2025 8:41 PM CDT) Phosphorus, pl See Comment 2.3 - 4.5 mg/dL Comment:Credited, collection error. Remove Results per Theodora Alfonso (DONA) on 08/02/2025. BPM Blood 08/01/2025 8:41 PM CDT 08/01/2025 9:15 PM CDT us Eula Blakely NP LAB BLOOD ORDERABLES Edit ed Result - Final Performing Organization Address City/[facility]/ZIP Co de Phone Number [facility] Department [place] [address] * Magnesium (08/01/2025 8:41 PM CDT) Magnesium See Comment 1.4 - 2.5 mg/dL Comment:Credited, collection error. Remove Results per Theodora Alfonso (RN) on 08/02/2025. BPM Blood 08/01/2025 8:41 PM CDT 08/01/2025 9:15 PM CDT Eula Blakely NP LAB BLOOD ORDERABLES Edit ed Result - Final [facility] Department [place] [address] * Basic metabolic panel (08/01/2025 8:41 PM CDT) Sodium See Comment 135 - 145 mmol/L Comment:Credited, collection error. Remove Results per Theodora Alfonso (RN) on 08/02/2025. BPM Potassium, pl See Comment 3.3 - 4.9 mmol/L [facility] Comment:Credited, collection error. Remove Results per Theodora Alfonso (RN) on 08/02/2025. BPM Chloride See Comment 97 - 110 mmol/L [facility] Comment:Credited, collection error. Remove Results per Theodora Alfonso (RN) on 08/02/2025. BPM CO2 See Comment 22 - 32 mmol/L [facility] Comment:Credited, collection error. Remove Results per Theodora Alfonso (RN) on 08/02/2025. BPM Anion gap See Comment 2 - 15 mmol/L [facility] Comment:Credited, collection error. Remove Results per Theodora Alfonso (RN) on 08/02/2025. BPM BUN See Comment 6 - 25 mg/dL [facility] Comment:Credited, collection error. Remove Results per Theodora Alfonso (RN) on 08/02/2025. BPM Creatinine See Comment 0.80 - 1.30 mg/dL [facility] Comment:Credited, collection error. Remove Results per Theodora Alfonso (RN) on 08/02/2025. BPM Glucose See Comment 70 - 199 mg/dL [facility] Comment: Credited, collection error. Remove Results per Theodora Alfonso (DONA) on 08/02/2025. BPM Interpretive Data Fasting glucose >/= 126 mg/dl is diagnostic for diabetes. Fasting is defined as no caloric intake for at least 8 hours. Fasting glucose between 100 mg/dl to 125 mg/dl is diagnostic of prediabetes. In a patient with classic symptoms of hyperglycemia or hyperglycemic crisis, a random glucose >/= 200 mg/dl is diagnostic for diabetes. In the absence of unequivocal hyperglycemia, results should be confirmed by repeat testing. The classification and Diagnosis of Diabetes Diabetes Care 2021; 46: S19-S40. Current interpretive data was last revised 2022. Calcium See Comment 8.5 - 10.3 mg/dL [facility] Comment:Credited, collection error. Remove Results per Theodora Alfonso (DONA) on 08/02/2025. BPM Blood 08/01/2025 8:41 PM CDT 08/01/2025 9:15 PM CDT Eula Blakely NP LAB BLOOD ORDERABLES Edit ed Result - Final [facility] Department [place] [address] * (ABNORMAL) POC Blood Gas and Chemistries, Arterial - (08/01/2025 8:14 PM CDT) pH, Art POC 7.37 7.35 - 7.45 pCO2, Art POC 40 35 - 45 mmHg [facility] pO2, Art POC 111(H) 83 - 108 mmHg [facility] Na, POC 138 135 - 145 mmol/L [facility] K POC 4.9 3.3 - 4.9 mmol/L [facility] Comment: Interpretive Data Not all point of care methods assess for hemolysis. Confirm with instrument and retest K+ if not consistent with clinical signs and symptoms. Current Interpretive Data was last revised on 2024. Cl, POC 109 97 - 110 mmol/L [facility] Ionized Ca, POC 4.71 4.50 - 5.10 mg/dL [facility] Glucose, POC 114 70 - 199 mg/dL [facility] Lactate POC 1.6 0.7 - 2.0 mmol/L [facility] SO2 (fortunato) arterial 100(H) 90 - 95 % [facility] Base excess, POC -2.0 mmol/L [facility] HCO3, Art POC 23 20 - 30 mmol/L [facility] Hct, POC 30.0(L) 41.4 - 51.6 % [facility] Total Hb, POC 10.1(L) 13.8 - 17.2 g/dL [facility] Blood 08/01/2025 8:14 PM CDT 08/01/2025 8:14 PM CDT Washington Zaman MD LAB POCT ORDERABLES - DEVICE Final Result Performing Organization Address [facility] Co de Phone Number [facility] Department [place] [address] * POCT glucose (08/01/2025 8:06 PM CDT) Glucose, POC 118 70 - 199 mg/dL Blood 08/01/2025 8:06 PM CDT 08/01/2025 8:06 PM CDT Washington Zaman MD LAB POCT ORDERABLES - DEVICE Final Result Performing Organization Address [facility] Co de Phone Number [facility] Department [place] [address] * Potassium, whole blood (08/01/2025 7:03 PM CDT) Potassium, bld 4.2 3.3 - 4.9 mmol/L Blood 08/01/2025 7:03 PM CDT 08/01/2025 7:12 PM CDT Eula Blakely NP LAB BLOOD ORDERABLES Tami l Result Performing Organization Address City/[facility] Co de Phone Number [facility] Department [place] [address] * POCT glucose (08/01/2025 6:58 PM CDT) Glucose, POC 98 70 - 199 mg/dL Blood 08/01/2025 6:58 PM CDT 08/01/2025 6:58 PM CDT Washington Zaman MD LAB POCT ORDERABLES - DEVICE Final Result Performing Organization Address [facility] Co de Phone Number [facility] Department [place] [address] * POCT glucose (08/01/2025 5:59 PM CDT) [facility] Signature Glucose, POC 99 70 - 199 mg/dL Blood 08/01/2025 5:59 PM CDT 08/01/2025 5:59 PM CDT Washington Zaman MD LAB POCT ORDERABLES - DEVICE Final Result Performing Organization Address [facility] Co de Phone Number [facility] Department [place] [address] * (ABNORMAL) POC Blood Gas and Chemistries, Arterial - (08/01/2025 5:04 PM CDT) pH, Art POC 7.33(L) 7.35 - 7.45 pCO2, Art POC 45 35 - 45 mmHg [facility] pO2, Art POC 104 83 - 108 mmHg [facility] Na, POC 139 135 - 145 mmol/L [facility] K POC 3.7 3.3 - 4.9 mmol/L [facility] Comment: Interpretive Data Not all point of care methods assess for hemolysis. Confirm with instrument and retest K+ if not consistent with clinical signs and symptoms. Current Interpretive Data was last revised on 2024. Cl, POC 109 97 - 110 mmol/L [facility] Ionized Ca, POC 4.63 4.50 - 5.10 mg/dL [facility] Glucose, POC 127 70 - 199 mg/dL [facility] Lactate POC 2.2(H) 0.7 - 2.0 mmol/L [facility] SO2 (fortunato) arterial 100(H) 90 - 95 % [facility] Base excess, POC -2.3 mmol/L [facility] HCO3, Art POC 24 20 - 30 mmol/L [facility] Hct, POC 30.0(L) 41.4 - 51.6 % [facility] Total Hb, POC 9.9(L) 13.8 - 17.2 g/dL [facility] Blood 08/01/2025 5:04 PM CDT 08/01/2025 5:04 PM CDT us Washington Zaman MD LAB POCT ORDERABLES - DEVICE Final Result [facility] Department [place] [address] * XR Chest 1 View (08/01/2025 4:29 PM CDT) Anatomical Region Laterality Modality Body, Chest N/A Computed Radiogr aphy 08/01/2025 7:01 PM CDT Impressions 08/01/2025 7:01 PM CDT Comparison 07/30/2025. New sternal plates seen. Left atrial appendage clip seen. New aortic valve replacement seen. Newbern-Caleb catheter tip projects over the right ventricular outflow tract. Right internal jugular central venous catheter tip overlies the superior vena cava. Interval widening of the cardiomediastinal silhouette in keeping with postoperative change in patient with history of aortic repair. New mild perihilar and bibasilar atelectasis seen, left greater than right. No pneumothorax seen. Electronically signed by: Yoan Santiago M.D. Narrative 08/01/2025 7:01 PM CDT EXAMINATION: 1 view chest radiograph Procedure Note Yoan Santiago MD - 08/01/2025 EXAMINATION: 1 view chest radiograph IMPRESSION: Comparison 07/30/2025. New sternal plates seen. Left atrial appendage clip seen. New aortic valve replacement seen. Newbern-Caleb catheter tip projects over the right ventricular outflow tract. Right internal jugular central venous catheter tip overlies the superior vena cava. Interval widening of the cardiomediastinal silhouette in keeping with postoperative change in patient with history of aortic repair. New mild perihilar and bibasilar atelectasis seen, left greater than right. No pneumothorax seen. Electronically signed by: Yoan Santiago M.D. us Washington Zaman MD IMG XR PROCEDURES Final Resul t * Oxyhemoglobin, pulmonary artery (08/01/2025 4:10 PM CDT) Oxyhemoglobin, PA 70.1 % Comment: Interpretive Data No reference range established. Current interpretive data was last revised 2020. Blood 08/01/2025 4:10 PM CDT 08/01/2025 4:32 PM CDT us Eula Blakely NP LAB BLOOD ORDERABLES Tami l Result [facility] Department [place] [address] * (ABNORMAL) eGFR (08/01/2025 4:09 PM CDT) eGFR 39(L) >=60 mL/min/1. 73 m2 Comment: Interpretive Data Reference Interval Normal >/= 90 mL/min/1.73m2 Mildly decreased* 60 - 89 mL/min/1.73m2 Mildly to moderately decreased 45 - 59 mL/min/1.73m2 Moderately to severely decreased 30 - 44 mL/min/1.73m2 Severely decreased 15 - 29 mL/min/1.73m2 Kidney Failure < 15 mL/min/1.73m2 *Relative to young adult level Estimated glomerular filtration rate is determined by the 2020 CKD-EPI equation recommended by the National Kidney Foundation (A Unifying Approach to GFR Estimation: Recommendations of the NKF-ASK Task Force on Reassessing the Inclusion of Race in Diagnosing Kidney Disease, JASN 2020). The CKD-EPI equation should not be used for patients with unstable renal function and has not been validated in children and those over 70. Current interpretive data was last reviewed 2021. Blood 08/01/2025 4:09 PM CDT 08/01/2025 4:38 PM CDT Washington Zaman MD LAB BLOOD ORDERABLES Final Re sult Performing Organization Address [facility] de Phone Number [facility] [place] [place] [address] * (ABNORMAL) aPTT (08/01/2025 4:09 PM CDT) aPTT 66(H) 26 - 38 sec Comment: Interpretive Data Heparin therapeutic range: 66.0 - 100.0 seconds. Range based on correlation with therapeutic heparin activity range of 0.3 - 0.7 Units/mL. Current interpretive data was last revised on 2023. Blood 08/01/2025 4:09 PM CDT 08/01/2025 4:37 PM CDT Washington Zaman MD LAB BLOOD ORDERABLES Final Re sult Performing Organization Address [facility] Co de Phone Number [facility] [employer] [place] [address] * (ABNORMAL) Protime-INR (08/01/2025 4:09 PM CDT) PT 15.2(H) 10.2 - 13.5 sec INR 1.35(H) 0.90 - 1.20 [facility] Comment: Interpretive data Oral anticoagulant therapeutic ranges: Venous thromboembolism prophylaxis or treatment: 2.0-3.0 CARDIOLOGY Standard range: 2.0-3.0 High-intensity range: 2.5-3.5 Refer to indication-specific guidelines for appropriate target ranges for prosthetic heart valve replacement. Current interpretive data was last revised on 2019. Blood 08/01/2025 4:09 PM CDT 08/01/2025 4:37 PM CDT Washington Zaman MD LAB BLOOD ORDERABLES Final Re sult Performing Organization Address [facility] Co de Phone Number [facility] Department [place] [address] * (ABNORMAL) CBC without differential (08/01/2025 4:09 PM CDT) WBC 5.35 3.80 - 9.90 K/cumm Hgb 9.0(L) 13.0 - 17.5 g/dL [facility] Hct 28.7(L) 38.9 - 50.3 % [facility] Plt 111(L) 150 - 400 K/cumm [facility] MPV 10.0 9.1 - 12.3 fL [facility] RBC 3.34(L) 4.30 - 5.80 M/cumm [facility] MCV 85.9 81.3 - 96.4 fL [facility] MCH 26.9(L) 27.1 - 33.3 pg [facility] MCHC 31.4(L) 32.3 - 35.7 g/dL [facility] RDW CV 14.6 11.1 - 14.9 % [facility] RDW SD 44.9 35.7 - 48.1 fL [facility] NRBC abs 0.00 0.00 - 0.01 K/cumm [facility] Blood 08/01/2025 4:09 PM CDT 08/01/2025 4:38 PM CDT Washington Zaman MD LAB BLOOD ORDERABLES Final Re sult Performing Organization Address [facility]/ZIP Co de Phone Number [facility] [place] [address] * Type and screen (08/01/2025 4:09 PM CDT) [facility] Cedric, indirect Negative ABO Rh O Positive [facility] Blood 08/01/2025 4:09 PM CDT 08/01/2025 4:43 PM CDT Narrative [facility] - 08/01/2025 5:45 PM CDT Has the patient had Daratumumab or Isatuximab in the past 6 months?->Unknown Washington Zaman MD LAB BLOOD BANK TEST ORDERABLE S Final Result [facility] [place] [address] * Magnesium (08/01/2025 4:09 PM CDT) [facility] Magnesium 2.5 1.4 - 2.5 mg/dL Blood 08/01/2025 4:09 PM CDT 08/01/2025 4:38 PM CDT Washington Zaman MD LAB BLOOD ORDERABLES Final Re sult [facility] [place] [address] * (ABNORMAL) Basic metabolic panel (08/01/2025 4:09 PM CDT) [facility] Sodium 143 135 - 145 mmol/L Potassium, pl 3.7 3.3 - 4.9 mmol/L [facility] Chloride 108 97 - 110 mmol/L [facility] CO2 24 22 - 32 mmol/L [facility] Anion gap 11 2 - 15 mmol/L [facility] BUN 26(H) 6 - 25 mg/dL [facility] Creatinine 1.74(H) 0.80 - 1.30 mg/dL [facility] Glucose 156 70 - 199 mg/dL [facility] Comment: Interpretive Data Fasting glucose >/= 126 mg/dl is diagnostic for diabetes. Fasting is defined as no caloric intake for at least 8 hours. Fasting glucose between 100 mg/dl to 125 mg/dl is diagnostic of prediabetes. In a patient with classic symptoms of hyperglycemia or hyperglycemic crisis, a random glucose >/= 200 mg/dl is diagnostic for diabetes. In the absence of unequivocal hyperglycemia, results should be confirmed by repeat testing. The classification and Diagnosis of Diabetes Diabetes Care 2021; 46: S19-S40. Current interpretive data was last revised 2022. Calcium 8.1(L) 8.5 - 10.3 mg/dL [facility] Blood 08/01/2025 4:09 PM CDT 08/01/2025 4:38 PM CDT us Washington Zaman MD LAB BLOOD ORDERABLES Final Re sult [facility] Department [place] [address] * (ABNORMAL) POC Blood Gas and Chemistries, Arterial - (08/01/2025 3:58 PM CDT) pH, Art POC 7.28(L) 7.35 - 7.45 pCO2, Art POC 50(H) 35 - 45 mmHg [facility] pO2, Art POC 81(L) 83 - 108 mmHg [facility] Na, POC 140 135 - 145 mmol/L [facility] K POC 3.6 3.3 - 4.9 mmol/L [facility] Comment: Interpretive Data Not all point of care methods assess for hemolysis. Confirm with instrument and retest K+ if not consistent with clinical signs and symptoms. Current Interpretive Data was last revised on 2024. Cl, POC 108 97 - 110 mmol/L [facility] Ionized Ca, POC 4.74 4.50 - 5.10 mg/dL [facility] Glucose, POC 154 70 - 199 mg/dL [facility] Lactate POC 2.9(H) 0.7 - 2.0 mmol/L [facility] SO2 (fortunato) arterial 97(H) 90 - 95 % [facility] Base excess, POC -3.4 mmol/L [facility] HCO3, Art POC 24 20 - 30 mmol/L [facility] Hct, POC 29.0(L) 41.4 - 51.6 % [facility] Total Hb, POC 9.7(L) 13.8 - 17.2 g/dL [facility] Blood 08/01/2025 3:58 PM CDT 08/01/2025 3:58 PM CDT Washington Zaman MD LAB POCT ORDERABLES - DEVICE Final Result [facility] [place] [address] * Critical Care (08/01/2025 3:51 PM CDT) Narrative Char Rolle DO - 08/01/2025 3:51 PM CDT Char Rolle DO 08/01/2025 10:27 PM Critical Care Performed by: Eula Blakely NP Authorized by: Eula Blakely NP CRITICAL CARE: Team: 83 CTICU Shift: AM Level of Billing: Critical Care My time spent with this patient was 120 minutes: Critical Provider Statement: I have seen and examined the patient on this day of service. I have reviewed and confirmed the history, physical exam, laboratory and radiologic data as documented in the signed ICU note. I have reviewed and discussed my treatment plan with the ICU team and other medical/organizational effectiveness consultant staff, making frequent assessments and decisions regarding this patient's complex medical care. Critical Care time was exclusive of time spent performing separately billed procedures, treating other patients, and teaching. This time was in addition to and separate from critical care provided by other practitioners in my group on this day of service. Critical Care was necessary to treat or prevent imminent or life-threatening deterioration of the following conditions: I spent time reviewing and interpreting data from bedside monitors, laboratory results, and imaging, I spent time documenting in the medical record and I spent time discussing the management of this critically ill patient with consultants and the medical staff Eula Blakely NP IN CLINIC/BEDSIDE ORDERAB LES Final Result * REPAIR ANEURYS[facility] ASCEND[facility]ORTIC (08/01/2025 3:44 PM CDT) Anatomical Region Laterality Modality X-Ray Angiograph y Narrative 08/01/2025 3:58 PM CDT Please see OpNote for result. Washington Zaman MD SURGICAL CASE ORDERS Final Re sult * POCT heparin/ACT CPB (08/01/2025 2:23 PM CDT) Heparin POC 0.4 units/mL ACT, CPB 136 112 - 174 sec [facility] Blood 08/01/2025 2:23 PM CDT 08/01/2025 2:23 PM CDT Washington Zaman MD LAB POCT ORDERABLES - DEVICE Final Result Performing Organization Address [facility] Co de Phone Number [facility] Department of [employer] [place] [address] * (ABNORMAL) POCT prothrombin time (08/01/2025 2:21 PM CDT) PT, POC 29.6(H) 11.7 - 16.6 sec INR, POC 2.3(H) 0.9 - 1.2 [facility] Blood 08/01/2025 2:21 PM CDT 08/01/2025 2:21 PM CDT Washington Zaman MD LAB POCT ORDERABLES - DEVICE Final Result Performing Organization Address City/[facility] Co de Phone Number [facility] Department of [employer] [place] [address] * (ABNORMAL) POCT Partial thromboplastin time (PTT) (08/01/2025 2:21 PM CDT) APTT, POC 46.5(H) 32.5 - 46.1 sec Blood 08/01/2025 2:21 PM CDT 08/01/2025 2:21 PM CDT us Washington Zaman MD LAB POCT ORDERABLES - DEVICE Final Result [facility] Department [place] [address] * (ABNORMAL) POC Blood Gas and Chemistries, Arterial - (08/01/2025 2:21 PM CDT) pH, Art POC 7.35 7.35 - 7.45 pCO2, Art POC 40 35 - 45 mmHg [facility] pO2, Art POC 236(H) 83 - 108 [facility] Na, POC 137 135 - 145 mmol/L [facility] K POC 3.5 3.3 - 4.9 mmol/L [facility] Comment: Interpretive Data Not all point of care methods assess for hemolysis. Confirm with instrument and retest K+ if not consistent with clinical signs and symptoms. Current Interpretive Data was last revised on 2024. Cl, POC 106 97 - 110 mmol/L [facility] Ionized Ca, POC 4.77 4.50 - 5.10 mg/dL [facility] Glucose, POC 212(H) 70 - 199 mg/dL [facility] Lactate POC 3.0(H) 0.7 - 2.0 mmol/L [facility] SO2 (fortunato) arterial 100(H) 90 - 95 % [facility] Base excess, POC -3.3 mmol/L [facility] HCO3, Art POC 22 20 - 30 mmol/L [facility] Hct, POC 31.0(L) 41.4 - 51.6 % [facility] Total Hb, POC 10.2(L) 13.8 - 17.2 g/dL [facility] Blood 08/01/2025 2:21 PM CDT 08/01/2025 2:21 PM CDT us Washington Zaman MD LAB POCT ORDERABLES - DEVICE Final Result Performing Organization Address [facility] [place] [address] * (ABNORMAL) POCT hemoglobin, hematocrit and platelet count (08/01/2025 2:18 PM CDT) [facility] Hgb, POC 9.3(L) 13.0 - 17.5 g/dL Hematocrit POC 29.9(L) 38.9 - 50.3 % [facility] Platelet POC 112(L) 150 - 400 K/cumm [facility] Blood 08/01/2025 2:18 PM CDT 08/01/2025 2:18 PM CDT Washington Zaman MD LAB POCT ORDERABLES - DEVICE Final Result Performing Organization Address [facility] de Phone Number [facility] of [employer] [place] [address] * (ABNORMAL) POCT heparin/ACT CPB (08/01/2025 1:24 PM CDT) [facility] Heparin POC >4.7 units/mL ACT, CPB 518(H) 112 - 174 sec [facility] Blood 08/01/2025 1:24 PM CDT 08/01/2025 1:24 PM CDT us Washington Zaman MD LAB POCT ORDERABLES - DEVICE Final Result Performing Organization Address [facility] de Phone Number [facility] [employer] [place] [address] * (ABNORMAL) POC Blood Gas and Chemistries, Arterial - (08/01/2025 1:18 PM CDT) [facility] pH, Art POC 7.38 7.35 - 7.45 pCO2, Art POC 37 35 - 45 mmHg [facility] pO2, Art POC 326(H) 83 - 108 mmHg [facility] Na, POC 137 135 - 145 mmol/L [facility] K POC 4.5 3.3 - 4.9 mmol/L [facility] Comment: Interpretive Data Not all point of care methods assess for hemolysis. Confirm with instrument and retest K+ if not consistent with clinical signs and symptoms. Current Interpretive Data was last revised on 2024. Cl, POC 105 97 - 110 mmol/L [facility] Ionized Ca, POC 4.52 4.50 - 5.10 mg/dL [facility] Glucose, POC 247(H) 70 - 199 mg/dL [facility] Lactate POC 3.3(H) 0.7 - 2.0 mmol/L [facility] SO2 (fortunato) arterial 100(H) 90 - 95 % [facility] Base excess, POC -2.9 mmol/L [facility] HCO3, Art POC 22 20 - 30 mmol/L [facility] Hct, POC 30.0(L) 41.4 - 51.6 % [facility] Total Hb, POC 9.9(L) 13.8 - 17.2 g/dL [facility] Blood 08/01/2025 1:18 PM CDT 08/01/2025 1:18 PM CDT us Washington Zaman MD LAB POCT ORDERABLES - DEVICE Final Result Performing Organization Address [facility]/ZIP Co de Phone Number [facility] Department [place] [address] * (ABNORMAL) POCT heparin/ACT CPB (08/01/2025 12:57 PM CDT) Heparin POC >4.7 units/mL ACT, CPB 489(H) 112 - 174 sec [facility] Blood 08/01/2025 12:5 7 PM CDT 08/01/2025 12:57 PM CDT us Washington Zaman MD LAB POCT ORDERABLES - DEVICE Final Result DAMIAN SHEPARD [facility] Department [place] [address] * (ABNORMAL) POC Blood Gas and Chemistries, Arterial - (08/01/2025 12:51 PM CDT) pH, Art POC 7.42 7.35 - 7.45 pCO2, Art POC 34(L) 35 - 45 mmHg [facility] pO2, Art POC 401(H) 83 - 108 mmHg [facility] Na, POC 137 135 - 145 mmol/L [facility] K POC 4.0 3.3 - 4.9 mmol/L [facility] Comment: Interpretive Data Not all point of care methods assess for hemolysis. Confirm with instrument and retest K+ if not consistent with clinical signs and symptoms. Current Interpretive Data was last revised on 2024. Cl, POC 104 97 - 110 mmol/L [facility] Ionized Ca, POC 4.56 4.50 - 5.10 mg/dL [facility] Glucose, POC 228(H) 70 - 199 mg/dL [facility] Lactate POC 2.5(H) 0.7 - 2.0 mmol/L [facility] SO2 (fortunato) arterial 100(H) 90 - 95 % [facility] Base excess, POC -1.9 mmol/L [facility] HCO3, Art POC 22 20 - 30 mmol/L [facility] Hct, POC 31.0(L) 41.4 - 51.6 % [facility] Total Hb, POC 10.4(L) 13.8 - 17.2 g/dL [facility] Blood 08/01/2025 12:5 1 PM CDT 08/01/2025 12:51 PM CDT us Washington Zaman MD LAB POCT ORDERABLES - DEVICE Final Result DAMIAN SHEPARD [facility] Department [place] [address] * (ABNORMAL) POCT heparin/ACT CPB (08/01/2025 12:26 PM CDT) Heparin POC >4.7 units/mL ACT, CPB 508(H) 112 - 174 sec [facility] Blood 08/01/2025 12:2 6 PM CDT 08/01/2025 12:26 PM CDT Washington Zaman MD LAB POCT ORDERABLES - DEVICE Final Result [facility] Department [place] [address] * (ABNORMAL) POC Blood Gas and Chemistries, Arterial - (08/01/2025 12:20 PM CDT) Pathologist [facility] pH, Art POC 7.38 7.35 - 7.45 pCO2, Art POC 40 35 - 45 mmHg [facility] pO2, Art POC 424(H) 83 - 108 mmHg [facility] Na, POC 139 135 - 145 mmol/L [facility] K POC 3.5 3.3 - 4.9 mmol/L [facility] Comment: Interpretive Data Not all point of care methods assess for hemolysis. Confirm with instrument and retest K+ if not consistent with clinical signs and symptoms. Current Interpretive Data was last revised on 2024. Cl, POC 105 97 - 110 mmol/L [facility] Ionized Ca, POC 4.63 4.50 - 5.10 mg/dL [facility] Glucose, POC 218(H) 70 - 199 mg/dL [facility] Lactate POC 2.4(H) 0.7 - 2.0 mmol/L [facility] SO2 (fortunato) arterial 100(H) 90 - 95 % [facility] Base excess, POC -1.3 mmol/L [facility] HCO3, Art POC 24 20 - 30 mmol/L [facility] Hct, POC 32.0(L) 41.4 - 51.6 % [facility] Total Hb, POC 10.6(L) 13.8 - 17.2 g/dL [facility] Blood 08/01/2025 12:2 0 PM CDT 08/01/2025 12:20 PM CDT Washington Zaman MD LAB POCT ORDERABLES - DEVICE Final Result Performing Organization Address City/[facility]/ZIP Co de Phone Number [facility] [place] [address] * (ABNORMAL) POCT heparin/ACT CPB (08/01/2025 11:53 AM CDT) Pathologist [facility] Heparin POC >4.7 units/mL ACT, CPB 623(H) 112 - 174 sec [facility] Blood 08/01/2025 11:5 3 AM CDT 08/01/2025 11:53 AM CDT Washington Zaman MD LAB POCT ORDERABLES - DEVICE Final Result Performing Organization Address [facility] de Phone Number [facility] [place] [address] * (ABNORMAL) POC Blood Gas and Chemistries, Arterial - (08/01/2025 11:47 AM CDT) [facility] pH, Art POC 7.31(L) 7.35 - 7.45 pCO2, Art POC 48(H) 35 - 45 mmHg [facility] pO2, Art POC 479(H) 83 - 108 mmHg [facility] Na, POC 138 135 - 145 mmol/L [facility] K POC 4.3 3.3 - 4.9 mmol/L [facility] Comment: Interpretive Data Not all point of care methods assess for hemolysis. Confirm with instrument and retest K+ if not consistent with clinical signs and symptoms. Current Interpretive Data was last revised on 2024. Cl, POC 105 97 - 110 mmol/L [facility] Ionized Ca, POC 4.71 4.50 - 5.10 mg/dL [facility] Glucose, POC 193 70 - 199 mg/dL [facility] Lactate POC 2.8(H) 0.7 - 2.0 mmol/L [facility] SO2 (fortunato) arterial 100(H) 90 - 95 % [facility] Base excess, POC -2.2 mmol/L [facility] HCO3, Art POC 24 20 - 30 mmol/L [facility] Hct, POC 31.0(L) 41.4 - 51.6 % [facility] Total Hb, POC 10.2(L) 13.8 - 17.2 g/dL [facility] Blood 08/01/2025 11:4 7 AM CDT 08/01/2025 11:47 AM CDT Washington Zaman MD LAB POCT ORDERABLES - DEVICE Final Result Performing Organization Address City/[facility]/ZIP Co de Phone Number [facility] [place] [address] * (ABNORMAL) POCT heparin/ACT CPB (08/01/2025 11:15 AM CDT) Heparin POC >4.7 units/mL ACT, CPB 593(H) 112 - 174 sec [facility] Blood 08/01/2025 11:1 5 AM CDT 08/01/2025 11:15 AM CDT Washington Zaman MD LAB POCT ORDERABLES - DEVICE Final Result Performing Organization Address [facility] Co de Phone Number [facility] Department [place] [address] * (ABNORMAL) POC Blood Gas and Chemistries, Arterial - (08/01/2025 11:10 AM CDT) pH, Art POC 7.35 7.35 - 7.45 pCO2, Art POC 45 35 - 45 mmHg [facility] pO2, Art POC 403(H) 83 - 108 mmHg [facility] Na, POC 138 135 - 145 mmol/L [facility] K POC 4.0 3.3 - 4.9 mmol/L [facility] Comment: Interpretive Data Not all point of care methods assess for hemolysis. Confirm with instrument and retest K+ if not consistent with clinical signs and symptoms. Current Interpretive Data was last revised on 2024. Cl, POC 105 97 - 110 mmol/L [facility] Ionized Ca, POC 4.57 4.50 - 5.10 mg/dL [facility] Glucose, POC 196 70 - 199 mg/dL [facility] Lactate POC 1.4 0.7 - 2.0 mmol/L [facility] SO2 (fortunato) arterial 100(H) 90 - 95 % [facility] Base excess, POC -1.0 mmol/L [facility] HCO3, Art POC 25 20 - 30 mmol/L [facility] Hct, POC 32.0(L) 41.4 - 51.6 % [facility] Total Hb, POC 10.6(L) 13.8 - 17.2 g/dL [facility] Blood 08/01/2025 11:1 0 AM CDT 08/01/2025 11:10 AM CDT Washington Zaman MD LAB POCT ORDERABLES - DEVICE Final Result [facility] [place] [address] * Surgical pathology (08/01/2025 11:04 AM CDT) Tissue (Heart Valve) 08/01/2025 11:04 AM CDT Tissue specimen (specimen) (Aorta) 08/01/2025 11:16 AM CDT Narrative PATHOLOGY [facility] - 08/06/2025 9:53 AM CDT EPIC results best viewed via link to PDF [facility] [place] [address] Note to Patients: This report may contain a detailed description of human tissue sent by a health care provider to the laboratory for pathologic evaluation. The content of this report is essential for diagnosis and may provide important critical findings. This information may be unfamiliar to patients to review without a medical professional present. It is advised that the patient review this report in the presence of a health care provider who can answer questions and explain the details. SURGICAL PATHOLOGY REPORT FINAL Patient Name: SHERICE ARMAS Gender: Mauro : 1945 (Age: 80) Address: [address] [place], [place] [id number] Hospital #: [id number] Taken:08/01/2025 Received:08/01/2025 Reported: 08/06/2025 Patient Type: [facility] Inpatient Service: Cardiothoracic Location: [place] [address] Physician(s): Andrei Clark DO Diagnosis: A. 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 Kapil Edmonds M.D. Report Electronically Reviewed and Signed Out By Kapil Edmonds M.D. 08/06/2025 09:53:27 Kim Mooney M.D. 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 Operative procedure: Replacement aneurysm ascending aorta and aortic valve Specimen(s) Received: A: Aortic valve B: Ascending aorta Gross Description: Received in two formalin jars labeled with the patient's identifiers. A. Labeled aortic valve are three aortic leaflets that range from 3.0-3.1 cm in greatest dimension and aggregating to 4.5 x 3.3 x 0.2 cm in aggregate. The leaflets are frias-white to frias-yellow with fatty streaking and fenestrations. The leaflets have multiple vegetations that range from 0.3-0.6 cm greatest dimension that are calcified. Escapement Matcher sections are submitted. Labeled A1. decal one. Jar 1. B. Labeled ascending aorta are multiple fragments of aorta that range from 3.5- 12.0 cm in greatest dimension and aggregating to 7.0 x 5.9 x 1.8 cm in aggregate. The tunica adventitia is frias pink and roughened to frias-yellow and lobulated, the tunica intima has focal areas of fatty streaking. Also received separately in the same container is a intact segment of aorta that measures 4.5 cm in length by 4.5 cm in diameter with a tunica adventitia is frias- pink with focal areas of hemorrhage and the tunica intima has yellow fatty streaking. The wall measures up to 0.6 cm in thickness Escapement Matcher sections are submitted. Labeled B1. Jar 1. 08/01/2025 17:16 PA(s): Ksenia Nathan MS, SANTINO(ASCP)CM By this signature, I attest that the above diagnosis is based upon my personal examination of the slides(and/or other material). Addenda/Procedures The performance characteristics of some immunohistochemical stains, fluorescence in-situ hybridization tests and immunophenotyping by flow cytometry cited in this report (if any) were determined by the Surgical Pathology and Flow Cytometry Departments at [facility] as part of an ongoing software quality assurance analyst program and in compliance with federally mandated regulations drawn from the Clinical Laboratory Improvement Act of 1988 (CLIA '88). Some of these tests rely on the use of analyte specific reagents and are subject to specific labeling requirements by the US Food and Drug Administration. Such diagnostic tests may only be performed in a facility that is certified by the Department of Health and Human Services as a high complexity laboratory under CLIA '88. The FDA has determined that such clearance or approval is not necessary. This test is used for clinical purposes. It should not be regarded as investigational or for research. Nevertheless, federal rules concerning the medical use of analyte specific reagents require that the following disclaimer be attached to the report: This test was developed and its performance characteristics determined by the Surgical Pathology and Flow Cytometry Departments of [facility]. It has not been cleared or approved by the U. S. Food and Drug Administration. IMAGES AND SCANNED DOCUMENTS, IF INCLUDED, ONLY VIEWABLE IN PDF VERSION OF REPORT us Washington Zaman MD LAB PATHOLOGY ORDERABLES Tami cervantes Result PATHOLOGY [facility] 3rd Floor [place], [place] [phone] * (ABNORMAL) POCT heparin/ACT CPB (08/01/2025 10:52 AM CDT) Heparin POC >4.7 units/mL ACT, CPB 523(H) 112 - 174 sec [facility] Blood 08/01/2025 10:5 2 AM CDT 08/01/2025 10:52 AM CDT Washington Zaman MD LAB POCT ORDERABLES - DEVICE Final Result [facility] Department [place] [address] * (ABNORMAL) POC Blood Gas and Chemistries, Arterial - (08/01/2025 10:52 AM CDT) Pathologist [facility] pH, Art POC 7.37 7.35 - 7.45 pCO2, Art POC 47(H) 35 - 45 mmHg [facility] pO2, Art POC 397(H) 83 - 108 mmHg [facility] Na, POC 139 135 - 145 mmol/L [facility] K POC 3.3 3.3 - 4.9 mmol/L [facility] Comment: Interpretive Data Not all point of care methods assess for hemolysis. Confirm with instrument and retest K+ if not consistent with clinical signs and symptoms. Current Interpretive Data was last revised on 2024. Cl, POC 107 97 - 110 mmol/L [facility] Ionized Ca, POC 4.61 4.50 - 5.10 mg/dL [facility] Glucose, POC 202(H) 70 - 199 mg/dL [facility] Lactate POC 1.4 0.7 - 2.0 mmol/L [facility] SO2 (fortunato) arterial 100(H) 90 - 95 % [facility] Base excess, POC 1.5 mmol/L [facility] HCO3, Art POC 27 20 - 30 mmol/L [facility] Hct, POC 31.0(L) 41.4 - 51.6 % [facility] Total Hb, POC 10.3(L) 13.8 - 17.2 g/dL [facility] Blood 08/01/2025 10:5 2 AM CDT 08/01/2025 10:52 AM CDT Washington Zaman MD LAB POCT ORDERABLES - DEVICE Final Result Performing Organization Address City/[facility]/ZIP Co de Phone Number [facility] [employer] [place] [address] * (ABNORMAL) POCT heparin/ACT CPB (08/01/2025 10:23 AM CDT) Pathologist [facility] Heparin POC <2.8 units/mL ACT, CPB 474(H) 112 - 174 sec [facility] Blood 08/01/2025 10:2 3 AM CDT 08/01/2025 10:23 AM CDT Washington Zaman MD LAB POCT ORDERABLES - DEVICE Final Result Performing Organization Address [facility] de Phone Number [facility] [place] [address] * (ABNORMAL) POC Blood Gas and Chemistries, Arterial - (08/01/2025 10:17 AM CDT) [facility] pH, Art POC 7.38 7.35 - 7.45 pCO2, Art POC 43 35 - 45 mmHg [facility] pO2, Art POC 425(H) 83 - 108 mmHg [facility] Na, POC 138 135 - 145 mmol/L [facility] K POC 4.0 3.3 - 4.9 mmol/L [facility] Comment: Interpretive Data Not all point of care methods assess for hemolysis. Confirm with instrument and retest K+ if not consistent with clinical signs and symptoms. Current Interpretive Data was last revised on 2024. Cl, POC 104 97 - 110 mmol/L [facility] Ionized Ca, POC 4.17(L) 4.50 - 5.10 mg/dL [facility] Glucose, POC 175 70 - 199 mg/dL [facility] Lactate POC 0.9 0.7 - 2.0 mmol/L [facility] SO2 (fortunato) arterial 100(H) 90 - 95 % [facility] Base excess, POC 0.1 mmol/L [facility] HCO3, Art POC 25 20 - 30 mmol/L [facility] Hct, POC 29.0(L) 41.4 - 51.6 % [facility] Total Hb, POC 9.7(L) 13.8 - 17.2 g/dL [facility] Blood 08/01/2025 10:1 7 AM CDT 08/01/2025 10:17 AM CDT Washington Zaman MD LAB POCT ORDERABLES - DEVICE Final Result Performing Organization Address [facility] Co de Phone Number [facility] [place] [address] * (ABNORMAL) POCT heparin/ACT CPB (08/01/2025 10:13 AM CDT) Heparin POC >4.7 units/mL ACT, CPB 451(H) 112 - 174 sec [facility] Blood 08/01/2025 10:1 3 AM CDT 08/01/2025 10:13 AM CDT Washington Zaman MD LAB POCT ORDERABLES - DEVICE Final Result Performing Organization Address [facility] Co de Phone Number [facility] Department [place] [address] * (ABNORMAL) POCT heparin/ACT CPB (08/01/2025 9:55 AM CDT) Heparin POC <2.8 units/mL ACT, CPB 404(H) 112 - 174 sec [facility] Blood 08/01/2025 9:55 AM CDT 08/01/2025 9:55 AM CDT us Washington Zaman MD LAB POCT ORDERABLES - DEVICE Final Result Performing Organization Address City/[facility] Co de Phone Number [facility] Department [place] [address] * GA AN PROCEDURE PLACEHOLDER (08/01/2025 9:46 AM CDT) Anatomical Region Laterality Modality Other Narrative 08/01/2025 9:46 AM CDT Juju Valenzuela MD 08/01/2025 7:17 PM AMNA Date/time: Staff: Supervising anesthesiologist: Juju Valenzuela MD Performed by: 1st Fellow: Rene Lantigua MD Preprocedure checklist: patient identified, procedure contraindications assessed, procedure consent, risks, benefits and alternatives discussed, monitors and equipment checked, timeout performed and AMNA probe inserted into esophagus using lubricating jelly General procedure Information: Reason for procedure/indications: assessment of ascending aorta, assessment of surgical repair and hemodynamic monitoring Performed: personally and with fellows Procedure performed at surgeon's request: yes Results discussed with surgeon: yes Images submitted to archive: yes Patient location: OR Intubated: yes Bite blocked placed: yes Probe Insertion: easy Complications: no Probe type: adult Modalities: 2D imaging, continuous wave Doppler, pulsed wave Doppler and color Doppler Billing information: Physician requesting echo: Washington Zaman MD CPT code: AMNA placement and diagnostic exam, non-congenital (84179) ICD code(s) for medical necessity: I71.2 - Thoracic aortic aneurysm, without rupture, I35.1 - Nonrheumatic aortic (valve) insufficiency Echocardiographic and doppler measurements: Ventricles: Left ventricle: Cavity size: normal Hypertrophy: No Thrombus: No Global function: hyperdynamic Right ventricle: Cavity size: normal Hypertrophy: no Thrombus: No Global function: normal Interventricular septum: hypertrophy Regional function: 1- Basal anteroseptal: normal 2- Basal anterior: normal 3- Basal anterolateral: normal 4- Basal inferolateral: normal 5- Basal inferior: normal 6- Basal inferoseptal: normal 7- Mid anteroseptal: normal 8- Mid anterior: normal 9- Mid anterolateral: normal 10- Mid inferolateral: normal 11- Mid inferior: normal 12- Mid inferoseptal: normal 13- Apical anterior: normal 14- Apical lateral: normal 15- Apical inferior: normal 16- Apical septal: normal 17- Aurora: normal Valves: Aortic Valve: Annulus: dilated Leaflet morphology: normal Leaflet motion: prolapse Stenosis: none Regurgitation: moderate Area: 1.66 cm Peak gradient: 12 mmHg Mean gradient: 8 mmHg Mitral valve: Annulus: normal Leaflet morphology anterior: normal Leaflet morphology posterior: normal Leaflet motion anterior: normal Leaflet motion posterior: normal Stenosis: none Regurgitation: mild Tricuspid valve: Annulus: normal Leaflet morphology: normal Leaflet motion: normal Stenosis: none Regurgitation: none Pulmonic valve: Annulus: normal Regurgitation: absent Aorta: Ascending aorta: Size: aneurysmal Diameter: 4.6 cm Dissection: no Plaque thickness(mm): 0-3 Plaque mobile: no Aortic arch: Size: normal Dissection: no Plaque thickness(mm): 0-3 Plaque mobile: no Descending aorta: Size: normal Dissection: no Plaque thickness(mm): 0-3 Plaque mobile: no Atria: Right atrium: Size: dilated Spontaneous echo contrast: No Thrombus: no Mass: No Left atrium: Size: dilated Spontaneous echo contrast: No Thrombus: no Mass: No Left atrial appendage: normal Interatrial septum: normal Diastolic function and other findings: Diastolic function: abnormal Pericardium: normal Left pleural effusion: none Right pleural effusion: normal Pulmonary venous flow: normal Pre-procedure AMNA exam summary: 80 y.o. male with ascedning aortic aneurysm presenting for repair Prebypass study performed under general anesthesia with no inotropic suppot Hypertrophied left ventricle with preserved function. EF>55% Normal RV size and function. Patient in Afib with abnormal diastolic function. Unable to fully characterize extent in absence of E/A ration, assessment SYLVIA, and inadequate TR jet) Tricuspid aortic valve with mild AI. AoR measures at 2.9. There is no aortic stenosis Mitral valve appears morphologically normal with mild regurgitation no stenosis. There does appear to be a cord segment. There is no tricuspid valve stenosis or regurgitation , no PI Biatrial enlargement is present. Left atrial appendage is free from clot with velocites >40 No PFO or intracardiac shunt appreciated. No pleural or percardia effusion Aorta with at least grade 3 disease, no dissection seen. Findings discussed with surgical team in real time Postprocedure (follow-up) AMNA exam: LV: unchanged RV: unchanged Interventricular septum: unchanged Aortic valve: bioprosthetic Aortic valve gradient mean: 14 mmHg Mitral valve: unchanged Pulmonic valve: unchanged Tricuspid valve: unchanged Atria: unchanged : Ascending and hemiarch replacement. Pericardium: unchanged Left pleural: unchanged Right pleural: unchanged Postprocedure (follow-up) AMNA exam comments: Post bypass AVR , Ascending Encompass MAZE. 29 AVR 28 Ascending graft Rhythm Sinus No inotropic support Preserved BiV function. SANAZ now ligated, 29 mm AVR bioprosthetic well seated no AI or PVL seen mean gradient 8-14. Mitral valve now with mild MR No dissection seen . No significant pleural or pericardial effusion. No other changes from pre bypass study Findings discussed in real time Attestation Statement: By signing this report the attending anesthesiologist certifies that he or she has personally reviewed and interpreted the echocardiogram and has reviewed and or edited and agrees with the written comments contained within the report. us Juju Valenzuela MD ANESTHESIA ORDERABLES Ed ited Result - Final * GA AN CENTRAL LINE QUADRUPLE LUMEN, GA AN PROCEDURE PLACEHOLDER (08/01/2025 8:56 AM CDT) Sarah Wilson CRNA - 08/01/2025 8:56 AM CDT Sarah Barba CRNA 08/01/2025 8:56 AM Central Venous Line Patient location: OR Indication: central venous access and CVP monitoring Staff: Placed by: ASSISTANT CLINICAL DIRECTOR: Sarah Barba CRNA Procedure prep: Patient position: Trendelenburg. PPE: provider hand hygiene, provider hat/mask, sterile gloves, sterile gown, large sterile drape and full body drape. Prep solution: chlorhexadine/alcohol was applied to area. Ultrasound Evaluation: Ultrasound was prepped into field and used prior to prep. Prior to the procedure, the cannulated vein was evaluated by ultrasound and deemed suitably patent for access.This vessel was accessed using real-time ultrasound guidance and an image was placed in the patient's medical record Central line: Laterality: right Site: internal jugular Catheter type: quad lumen Catheter size: 7 Fr. Catheter length: 16 cm Technique: anatomy identified with surface landmarks, anatomy identified with ultrasound, vein located with finder needle, Seldinger technique, wire threaded easily and wire removed intact Venous verification: AMNA confirmation Post insertion: all ports aspirated, all ports flushed easily, line sutured in place and occlusive dressing applied Number of attempts: 1 Assessment: Events: patient tolerated procedure well with no complications us Juju Valenzuela MD ANESTHESIA ORDERABLES Fi nal Result * BW AN SHEATH INTRODUCER PERFORMABLE, PULMONARY ARTERY CATH, GA AN PROCEDURE PLACEHOLDER (58:56 AM CDT) Sarah Wilson CRNA - 08/01/2025 8:56 AM CDT Sarah Barba CRNA 08/01/2025 8:56 AM Central Venous Line Patient location: OR Indication: central venous access and CVP monitoring Staff: Placed by: JONATHON: Sarah Barba CRNA Procedure prep: Patient position: Trendelenburg. PPE: provider hand hygiene, provider hat/mask, sterile gloves, sterile gown, full body drape and large sterile drape. Prep solution: chlorhexadine/alcohol was applied to area. Ultrasound Evaluation: Ultrasound was prepped into field and used prior to prep. Prior to the procedure, the cannulated vein was evaluated by ultrasound and deemed suitably patent for access.This vessel was accessed using real-time ultrasound guidance and an image was placed in the patient's medical record Central line: Laterality: right Site: internal jugular Catheter type: introducer sheath Catheter size: 9 Fr. Technique: anatomy identified with surface landmarks, anatomy identified with ultrasound, vein located with finder needle, Seldinger technique, wire threaded easily and wire removed intact Venous verification: manometry and AMNA confirmation Post insertion: all ports aspirated, all ports flushed easily, line sutured in place and occlusive dressing applied Number of attempts: 1 PA catheter placement: PA catheter type: oximetric PA catheter laterality: right PA catheter site: internal jugular Placement guided by: pressure tracing changesNo Assessment: Events: patient tolerated procedure well with no complications Juju Valenzuela MD ANESTHESIA ORDERABLES Fi nal Result * GA AN PROCEDURE PLACEHOLDER (08/01/2025 8:55 AM CDT) Sarah Wilson CRNA - 08/01/2025 8:55 AM CDT Sarah Barba CRNA 08/01/2025 8:56 AM Arterial Line Patient location: pre-op holding Indication: continuous blood pressure monitoring Staff: Placed by: JONATHON: Sarah Barba CRNA Procedure prep: Prep solution: chlorhexadine/alcohol Prep: sterile gloves, sterile drape and provider hat/mask Skin infiltrated with lidocaine 1%: yes Arterial line: Catheter size: 20 gauge Catheter length: 1 and 3/4 inch Catheter type: wire-guided catheter Seldinger technique: yes Laterality: right Site: radial artery Line secured: suture Results: good blood return Number of attempts: 1 Assessment: Events: patient tolerated procedure well with no complications Juju Valenzuela MD ANESTHESIA ORDERABLES Fi nal Result * POCT heparin dose response, CPB (08/01/2025 8:25 AM CDT) Baseline ACT POC 144 112 - 174 sec Heparin dose response slope POC 72 60 - 195 [facility] Projected Heparin Concentration POC 4.7 units/mL [facility] Blood 08/01/2025 8:25 AM CDT 08/01/2025 8:25 AM CDT Washington Zaman MD LAB POCT ORDERABLES - DEVICE Final Result [facility] Department [place] [address] * (ABNORMAL) POC Blood Gas and Chemistries, Arterial - (08/01/2025 8:21 AM CDT) pH, Art POC 7.42 7.35 - 7.45 pCO2, Art POC 46(H) 35 - 45 mmHg [facility] pO2, Art POC 257(H) 83 - 108 mmHg [facility] Na, POC 139 135 - 145 mmol/L [facility] K POC 3.6 3.3 - 4.9 mmol/L [facility] Comment: Interpretive Data Not all point of care methods assess for hemolysis. Confirm with instrument and retest K+ if not consistent with clinical signs and symptoms. Current Interpretive Data was last revised on 2024. Cl, POC 105 97 - 110 mmol/L [facility] Ionized Ca, POC 4.85 4.50 - 5.10 mg/dL [facility] Glucose, POC 131 70 - 199 mg/dL [facility] Lactate POC 1.0 0.7 - 2.0 mmol/L [facility] SO2 (fortunato) arterial 100(H) 90 - 95 % [facility] Base excess, POC 4.6 mmol/L [facility] HCO3, Art POC 29 20 - 30 mmol/L [facility] Hct, POC 34.0(L) 41.4 - 51.6 % [facility] Total Hb, POC 11.4(L) 13.8 - 17.2 g/dL [facility] Blood 08/01/2025 8:21 AM CDT 08/01/2025 8:21 AM CDT us Washington Zaman MD LAB POCT ORDERABLES - DEVICE Final Result [facility] Department [place] [address] * GA AN ELECTIVE ENDOTRACHEAL AIRWAY, GA AN PROCEDURE PLACEHOLDER (08/01/2025 8:19 AM CDT) Narrative Sarah Barba CRNA - 08/01/2025 8:19 AM CDT Sarah Barba CRNA 08/01/2025 8:20 AM Airway Patient location: OR Urgency: elective Indications for airway management: anesthesia Difficult airway: no Staff: Placed by: JONATHON: Sarah Barba CRNA Emergent airway documentation: Risks and benefits discussed: yes Consent obtained: yes Consent given by: patient Airway prep: Preoxygenated: yes Patient position: sniffing Mask difficulty assessment: 1 - vent by mask Spontaneous ventilation during airway: absent Sedation level during airway: GA Final airway details: Final airway type: endotracheal airway Tube type: ETT ETT size: 8.0 mm Cuffed: yes Technique used for successful ETT placement: video laryngoscopy Devices/Methods used in placement: intubating stylet Insertion site: oral Blade type: Perla Video blade type: Rivas Blade size: 3 Cormack-Lehane (video): grade I - full view of glottis Cuff inflated with: air Placement verified by: auscultation Airway secured with: silk tape Number of attempts: 1 us Juju Valenzuela MD ANESTHESIA ORDERABLES Fi nal Result * AMNA Add-On For OR (08/01/2025 7:03 AM CDT) BSA 2.51 m2 [facility] PROSOLV_CARDIORE PORT_CONS SCIMAGE Narrative [facility] PROSOLV_CARDIOREPORT_CONS SCIMAGE - 08/01/2025 7:03 AM CDT Procedure Auto Finalized by Rule: BW CV AMNA DURING CASE OR Please see the Anesthesiologist's Procedure Note for the results. Juju Valenzuela MD CV ECHO PROCEDURES Final Result Performing Organization Address [facility] Co de Phone Number [facility] RAYNEOLV_CARDIOREPORT_CONS SCIMAGE * (ABNORMAL) eGFR (08/01/2025 5:14 AM CDT) eGFR 35(L) >=60 mL/min/1. 73 m2 Comment: Interpretive Data Reference Interval Normal >/= 90 mL/min/1.73m2 Mildly decreased* 60 - 89 mL/min/1.73m2 Mildly to moderately decreased 45 - 59 mL/min/1.73m2 Moderately to severely decreased 30 - 44 mL/min/1.73m2 Severely decreased 15 - 29 mL/min/1.73m2 Kidney Failure < 15 mL/min/1.73m2 *Relative to young adult level Estimated glomerular filtration rate is determined by the 2020 CKD-EPI equation recommended by the National Kidney Foundation (A Unifying Approach to GFR Estimation: Recommendations of the NKF-ASK Task Force on Reassessing the Inclusion of Race in Diagnosing Kidney Disease, JASN 2020). The CKD-EPI equation should not be used for patients with unstable renal function and has not been validated in children and those over 70. Current interpretive data was last reviewed 2021. Blood 08/01/2025 5:14 AM CDT 08/01/2025 5:25 AM CDT us Sterling Dial MD LAB BLOOD ORDERABLES Fin al Result Performing Organization Address City/[facility]/ZIP Co de Phone Number DAMIAN SHEPARD [facility] Department [place] [address] * (ABNORMAL) Basic metabolic panel (08/01/2025 5:14 AM CDT) Pathologist [facility] Sodium 141 135 - 145 mmol/L Potassium, pl 3.9 3.3 - 4.9 mmol/L [facility] Chloride 101 97 - 110 mmol/L [facility] CO2 29 22 - 32 mmol/L [facility] Anion gap 11 2 - 15 mmol/L [facility] BUN 29(H) 6 - 25 mg/dL [facility] Creatinine 1.91(H) 0.80 - 1.30 mg/dL [facility] Glucose 153 70 - 199 mg/dL [facility] Comment: Interpretive Data Fasting glucose >/= 126 mg/dl is diagnostic for diabetes. Fasting is defined as no caloric intake for at least 8 hours. Fasting glucose between 100 mg/dl to 125 mg/dl is diagnostic of prediabetes. In a patient with classic symptoms of hyperglycemia or hyperglycemic crisis, a random glucose >/= 200 mg/dl is diagnostic for diabetes. In the absence of unequivocal hyperglycemia, results should be confirmed by repeat testing. The classification and Diagnosis of Diabetes Diabetes Care 2021; 46: S19-S40. Current interpretive data was last revised 2022. Calcium 9.8 8.5 - 10.3 mg/dL [facility] Blood 08/01/2025 5:14 AM CDT 08/01/2025 5:25 AM CDT Sterling Dial MD LAB BLOOD ORDERABLES Fin al Result DAMIAN SHEPARD [facility] Department [place] [address] * POCT glucose (07/31/2025 8:20 PM CDT) Glucose, POC 163 70 - 199 mg/dL Blood 07/31/2025 8:20 PM CDT 07/31/2025 8:20 PM CDT us Washington Zaman MD LAB POCT ORDERABLES - DEVICE Final Result Performing Organization Address [facility] Co de Phone Number [facility] [place] [address] * (ABNORMAL) eGFR (07/31/2025 8:18 PM CDT) eGFR 34(L) >=60 mL/min/1. 73 m2 Comment: Interpretive Data Reference Interval Normal >/= 90 mL/min/1.73m2 Mildly decreased* 60 - 89 mL/min/1.73m2 Mildly to moderately decreased 45 - 59 mL/min/1.73m2 Moderately to severely decreased 30 - 44 mL/min/1.73m2 Severely decreased 15 - 29 mL/min/1.73m2 Kidney Failure < 15 mL/min/1.73m2 *Relative to young adult level Estimated glomerular filtration rate is determined by the 2020 CKD-EPI equation recommended by the National Kidney Foundation (A Unifying Approach to GFR Estimation: Recommendations of the NKF-ASK Task Force on Reassessing the Inclusion of Race in Diagnosing Kidney Disease, JASN 2020). The CKD-EPI equation should not be used for patients with unstable renal function and has not been validated in children and those over 70. Current interpretive data was last reviewed 2021. Blood 07/31/2025 8:18 PM CDT 07/31/2025 9:36 PM CDT us Cary Damon HAND SPINNER LAB BLOOD ORDERABLES Final R esult Performing Organization Address City/[facility]/ZIP Co de Phone Number DAMIAN SHEPARD [facility] Department [place] [address] * (ABNORMAL) Antithrombin Activity (07/31/2025 8:18 PM CDT) Antithrombin III 68(L) 80 - 125 % Comment: Interpretive Data High concentrations of anti-Xa direct oral anticoagulants can cause Antithrombin activities to be falsely elevated. Current interpretive data was last reviewed 2024 Blood 07/31/2025 8:18 PM CDT 07/31/2025 9:43 PM CDT us Shai Reyes HAND SPINNER LAB BLOOD ORDERABLES Final Result Performing Organization Address [facility]/ZIP Co de Phone Number [facility] [employer] [place] [address] * (ABNORMAL) CBC without differential (07/31/2025 8:18 PM CDT) WBC 6.11 3.80 - 9.90 K/cumm Hgb 11.2(L) 13.0 - 17.5 g/dL [facility] Hct 33.8(L) 38.9 - 50.3 % [facility] Plt 210 150 - 400 K/cumm [facility] MPV 10.8 9.1 - 12.3 fL [facility] RBC 4.04(L) 4.30 - 5.80 M/cumm [facility] MCV 83.7 81.3 - 96.4 fL [facility] MCH 27.7 27.1 - 33.3 pg [facility] MCHC 33.1 32.3 - 35.7 g/dL [facility] RDW CV 14.6 11.1 - 14.9 % [facility] RDW SD 44.4 35.7 - 48.1 fL [facility] NRBC abs 0.00 0.00 - 0.01 K/cumm [facility] Blood 07/31/2025 8:18 PM CDT 07/31/2025 9:37 PM CDT us Cary Damon HAND SPINNER LAB BLOOD ORDERABLES Final R esult Performing Organization Address City/[facility]/ZIP Co de Phone Number [facility] [employer] [place] [address] * Magnesium (07/31/2025 8:18 PM CDT) Magnesium 2.0 1.4 - 2.5 mg/dL Blood 07/31/2025 8:18 PM CDT 07/31/2025 9:36 PM CDT Nina Mireles HAND SPINNER LAB BLOOD ORDERABLES Final Result Performing Organization Address [facility]/ZIP Co de Phone Number [facility] [place] [address] * (ABNORMAL) Basic metabolic panel (07/31/2025 8:18 PM CDT) [facility] Sodium 138 135 - 145 mmol/L Potassium, pl 3.6 3.3 - 4.9 mmol/L [facility] Chloride 99 97 - 110 mmol/L [facility] CO2 28 22 - 32 mmol/L [facility] Anion gap 11 2 - 15 mmol/L [facility] BUN 28(H) 6 - 25 mg/dL [facility] Creatinine 1.95(H) 0.80 - 1.30 mg/dL [facility] Glucose 154 70 - 199 mg/dL [facility] Comment: Interpretive Data Fasting glucose >/= 126 mg/dl is diagnostic for diabetes. Fasting is defined as no caloric intake for at least 8 hours. Fasting glucose between 100 mg/dl to 125 mg/dl is diagnostic of prediabetes. In a patient with classic symptoms of hyperglycemia or hyperglycemic crisis, a random glucose >/= 200 mg/dl is diagnostic for diabetes. In the absence of unequivocal hyperglycemia, results should be confirmed by repeat testing. The classification and Diagnosis of Diabetes Diabetes Care 2021; 46: S19-S40. Current interpretive data was last revised 2022. Calcium 9.6 8.5 - 10.3 mg/dL [facility] Blood 07/31/2025 8:18 PM CDT 07/31/2025 9:36 PM CDT us Cary Damon HAND SPINNER LAB BLOOD ORDERABLES Final R esult Performing Organization Address [facility]/ZIP Co de Phone Number [facility] Department of [employer] [place] [address] * aPTT (07/31/2025 6:20 PM CDT) Pathologist [facility] aPTT 38 26 - 38 sec Comment: Interpretive Data Heparin therapeutic range: 66.0 - 100.0 seconds. Range based on correlation with therapeutic heparin activity range of 0.3 - 0.7 Units/mL. Current interpretive data was last revised on 2023. Blood 07/31/2025 6:20 PM CDT 07/31/2025 7:04 PM CDT [facility]ative [facility] 07/31/2025 7:12 PM CDT STAT PTT timing: - Draw 6 hours after heparin infusion initiation - Draw 6 hours after every dose change until 2 consecutive PTTs are therapeutic - Once 2 consecutive PTTs are therapeutic, obtain with daily labs until infusion is discontinued - - Restart every 6 hour lab draws and follow instructions accordingly if PTT is outside of therapeutic range Do not draw lab from IV line that is actively infusing heparin. Use the opposite arm. If arm with actively infusing heparin must be used, pause the infusion for at least 2 minutes, and draw specimen below the IV site. For patients with a central venous catheter (CVC), lab must be drawn peripherally (not from CVC). us Cary Damon NP LAB BLOOD ORDERABLES Final R esult Performing Organization Address City/[facility]/ZIP Co de Phone Number [facility] Department of [employer] [place] [address] * POCT glucose (07/31/2025 5:05 PM CDT) [facility] Glucose, POC 174 70 - 199 mg/dL Blood 07/31/2025 5:05 PM CDT 07/31/2025 5:05 PM CDT us Washington Zaman MD LAB POCT ORDERABLES - DEVICE Final Result Performing Organization Address [facility]/ZIP Co de Phone Number [facility] [employer] [place] [address] * Check Sample (07/31/2025 4:16 PM CDT) ABO Rh O Positive [facility] OTHER 07/31/2025 4:16 PM CDT 07/31/2025 4:43 PM CDT us Washington Zaman MD LAB BLOOD ORDERABLES Final Re sult Performing Organization Address City/[facility]/ZIP Co de Phone Number [facility] [place] [place] [address] [facility] * Prepare RBC: 4 Units (07/31/2025 3:25 PM CDT) Product code [id number] CERNER BJ Unit Number [id number] 3-V CERNER BJ Product Blood Type OPOS CERNER BJH Dispense Status RETURNED CERNER BJ Product code [id number] CERNER BJ Unit Number [id number] 2-M CERNER BJ Product Blood Type OPOS CERNER BJH Dispense Status RETURNED CERNER BJ Product code [id number] Unit Number [id number] 1-A CERNER BJ Product Blood Type OPOS CERNER BJH Dispense Status RETURNED CERNER BJ Product code [id number] CERNER BJ Unit Number [id number] 0-W CERNER BJ Product Blood Type OPOS CERNER [facility] Dispense Status RETURNED CERNER BJ Blood 07/31/2025 3:25 PM CDT 07/31/2025 3:27 PM CDT Narrative [facility] - 08/01/2025 4:02 PM CDT Are special requirements needed? (All products are leukoreduced and CMV- safe)- >No Date required:-[id number] LRRBC # of [id number] Reasons:-Intra-op transfusion} us Shai Reyes NP BLOOD BANK PRODUCT ORDERABL ES Final Result Performing Organization Address City/[facility]/ZIP Co de Phone Number [facility] Department of [employer]™ [place] [address] * Pulmonary Function Test -[facility]; Standard, Spirometry with Bronchodilator, ABG, DLCO; Spirometry, Spirometry w/bronchodilator, DLCO and Lung Volumes; Room Air ABG; Spirometry (07/31/2025 1:45 PM CDT) FVC PRE 2.57 L [facility] FVC %PRE PRED 76 % [facility] FVC POST 2.71 L [facility] FVC %POST PRED 81 % [facility] FEV1 PRE 1.92 L [facility] FEV1 %PRE PRED 77 % [facility] FEV1 POST 2.17 L [facility] FEV1 %POST PRED 87 % [facility] FEV1/FVC PRE 74.9 % [facility] FEV1/FVC POST 80.2 % [facility] FRC PL PRE 2.91 L [facility] FRC PL %PRE PRED 86 % [facility] RV PRE 2.57 L [facility] RV %PRE PRED 104 % [facility] TLC PRE 5.03 L [facility] TLC %PRE PRED 80 % [facility] DLCO PRE 18.7 ml/min/mmH g [facility] DLCO %PRE PRED 87 % [facility] FIO2 % 21.00 % [facility] PaO2 74.0 mmHg [facility] PaCO2 44.0 mmHg [facility] pH 7.43 [facility] A-aDO2 POC 21.0 mmHg [facility] COHb POC 3.3 % [facility] HCO3 29.2 mEq/L [facility] Anatomical Region Laterality Modality PFT 07/31/2025 1:27 PM CDT Narrative 08/01/2025 9:19 AM CDT Please completed NELIA as patient is scheduled for OR on 08/01/25. Thank you. Patient Location:->[facility] Standard:->Spirometry, Spirometry w/bronchodilator, DLCO and Lung Volumes ABG:->Room Air ABG DLCO:->Spirometry Pulmonary Function Test Interpretation SPIROMETRY: The FEV1 to FVC ratio is normal. The FEV1 and FVC are reduced in a pattern suggestive of a restrictive abnormality. There is no significant improvement after inhaling a single dose of albuterol. The flow volume loop is normal. LUNG VOLUMES: TLC measured by plethysmography is normal. Overweight status may be the cause of the decreased ERV. DLCO: The diffusing capacity is normal. The diffusing capacity corrected for hemoglobin level (DLCO ADJ) is within normal limits. ARTERIAL BLOOD GAS: There is a compensated metabolic alkalosis. The arterial pO2 is normal at rest. The COHb level is 3.3%. Normal is less than 2%. Measured hemoglobin is 11.4 g/dL. Impression: There is a non-specific ventilatory defect. There is no impairment of alveolar gas exchange by DLCO. There is no impairment of gas exchange at rest by ABG. The COHb level is consistent with exposure to products of combustion or altered heme metabolism. Anemia is noted. Luke Kruse MD The attending pulmonary physician certifies a physician presence in the [facility] Suite during the administration of aerosolized bronchodilator. The attending pulmonary physician certifies that he/she has reviewed and interpreted the graphic and numerical data of this pulmonary function study and agrees with the written final report. The lower limit of normal for PaO2 and %HbO2 is age dependent. However, the [facility] Pulmonary Function Laboratory defines hypoxemia as a PaO2 <56 mm Hg or a %HbO2 <89%. Starting on November of 2024 the [facility] Pulmonary Function Laboratory utilizes race neutral GLI Global normative equations. us Cary Damon HAND SPINNER PFT ORDERABLES Final Result * aPTT (07/31/2025 11:42 AM CDT) aPTT 37 26 - 38 sec Comment: Interpretive Data Heparin therapeutic range: 66.0 - 100.0 seconds. Range based on correlation with therapeutic heparin activity range of 0.3 - 0.7 Units/mL. Current interpretive data was last revised on 2023. Blood 07/31/2025 11:4 2 AM CDT 07/31/2025 12:22 PM CDT Davidson [facility]O [facility] - 07/31/2025 12:45 PM CDT STAT PTT timing: - Draw 6 hours after heparin infusion initiation - Draw 6 hours after every dose change until 2 consecutive PTTs are therapeutic - Once 2 consecutive PTTs are therapeutic, obtain with daily labs until infusion is discontinued - - Restart every 6 hour lab draws and follow instructions accordingly if PTT is outside of therapeutic range Do not draw lab from IV line that is actively infusing heparin. Use the opposite arm. If arm with actively infusing heparin must be used, pause the infusion for at least 2 minutes, and draw specimen below the IV site. For patients with a central venous catheter (CVC), lab must be drawn peripherally (not from CVC). Cary Damon HAND SPINNER LAB BLOOD ORDERABLES Final R esult Performing Organization Address [facility] Co de Phone Number [facility] [place] [address] * POCT glucose (07/31/2025 11:04 AM CDT) Glucose, POC 157 70 - 199 mg/dL Blood 07/31/2025 11:0 4 AM CDT 07/31/2025 11:04 AM CDT Washington Zaman MD LAB POCT ORDERABLES - DEVICE Final Result Performing Organization Address [facility] Co de Phone Number [facility] [employer] [place] [address] * POCT glucose (07/31/2025 7:52 AM CDT) Glucose, POC 129 70 - 199 mg/dL Blood 07/31/2025 7:52 AM CDT 07/31/2025 7:52 AM CDT Washington aZman MD LAB POCT ORDERABLES - DEVICE Final Result Performing Organization Address [facility] Co de Phone Number [facility] [employer] [place] [address] * aPTT (07/31/2025 5:53 AM CDT) aPTT 38 26 - 38 sec Comment: Interpretive Data Heparin therapeutic range: 66.0 - 100.0 seconds. Range based on correlation with therapeutic heparin activity range of 0.3 - 0.7 Units/mL. Current interpretive data was last revised on 2023. Blood 07/31/2025 5:53 AM CDT 07/31/2025 6:04 AM CDT Davidson WELLS - 07/31/2025 6:19 AM CDT STAT PTT timing: - Draw 6 hours after heparin infusion initiation - Draw 6 hours after every dose change until 2 consecutive PTTs are therapeutic - Once 2 consecutive PTTs are therapeutic, obtain with daily labs until infusion is discontinued - - Restart every 6 hour lab draws and follow instructions accordingly if PTT is outside of therapeutic range Do not draw lab from IV line that is actively infusing heparin. Use the opposite arm. If arm with actively infusing heparin must be used, pause the infusion for at least 2 minutes, and draw specimen below the IV site. For patients with a central venous catheter (CVC), lab must be drawn peripherally (not from CVC). us Cary Damon NP LAB BLOOD ORDERABLES Final R esult DAMIAN SHEPARD [facility] Department [place] [address] * (ABNORMAL) eGFR (07/30/2025 9:53 PM CDT) eGFR 41(L) >=60 mL/min/1. 73 m2 Comment: Interpretive Data Reference Interval Normal >/= 90 mL/min/1.73m2 Mildly decreased* 60 - 89 mL/min/1.73m2 Mildly to moderately decreased 45 - 59 mL/min/1.73m2 Moderately to severely decreased 30 - 44 mL/min/1.73m2 Severely decreased 15 - 29 mL/min/1.73m2 Kidney Failure < 15 mL/min/1.73m2 *Relative to young adult level Estimated glomerular filtration rate is determined by the 2020 CKD-EPI equation recommended by the National Kidney Foundation (A Unifying Approach to GFR Estimation: Recommendations of the NKF-ASK Task Force on Reassessing the Inclusion of Race in Diagnosing Kidney Disease, JASN 2020). The CKD-EPI equation should not be used for patients with unstable renal function and has not been validated in children and those over 70. Current interpretive data was last reviewed 2021. Blood 07/30/2025 9:53 PM CDT 07/30/2025 11:10 PM CDT us Nina Mireles HAND SPINNER LAB BLOOD ORDERABLES Final Result Performing Organization Address [facility] Co de Phone Number [facility] [place] [address] * aPTT (07/30/2025 9:53 PM CDT) Pathologist [facility] aPTT 30 26 - 38 sec Comment: Interpretive Data Heparin therapeutic range: 66.0 - 100.0 seconds. Range based on correlation with therapeutic heparin activity range of 0.3 - 0.7 Units/mL. Current interpretive data was last revised on 2023. Blood 07/30/2025 9:53 PM CDT 07/30/2025 11:13 PM CDT Narrative [facility] - 07/30/2025 11:28 PM CDT STAT PTT timing: - Draw 6 hours after heparin infusion initiation - Draw 6 hours after every dose change until 2 consecutive PTTs are therapeutic - Once 2 consecutive PTTs are therapeutic, obtain with daily labs until infusion is discontinued - - Restart every 6 hour lab draws and follow instructions accordingly if PTT is outside of therapeutic range Do not draw lab from IV line that is actively infusing heparin. Use the opposite arm. If arm with actively infusing heparin must be used, pause the infusion for at least 2 minutes, and draw specimen below the IV site. For patients with a central venous catheter (CVC), lab must be drawn peripherally (not from CVC). us Cary Damon HAND SPINNER LAB BLOOD ORDERABLES Final R esult Performing Organization Address [facility]/ZIP Co de Phone Number [facility] Department [place] [address] * Magnesium (07/30/2025 9:53 PM CDT) Magnesium 1.6 1.4 - 2.5 mg/dL Blood 07/30/2025 9:53 PM CDT 07/30/2025 11:10 PM CDT Nina Mireles HAND SPINNER LAB BLOOD ORDERABLES Final Result [facility] Department [place] [address] * (ABNORMAL) Basic metabolic panel (07/30/2025 9:53 PM CDT) Pathologist [facility] Sodium 138 135 - 145 mmol/L Potassium, pl 3.7 3.3 - 4.9 mmol/L [facility] Chloride 100 97 - 110 mmol/L [facility] CO2 23 22 - 32 mmol/L [facility] Anion gap 15 2 - 15 mmol/L [facility] BUN 23 6 - 25 mg/dL [facility] Creatinine 1.68(H) 0.80 - 1.30 mg/dL [facility] Glucose 146 70 - 199 mg/dL [facility] Comment: Interpretive Data Fasting glucose >/= 126 mg/dl is diagnostic for diabetes. Fasting is defined as no caloric intake for at least 8 hours. Fasting glucose between 100 mg/dl to 125 mg/dl is diagnostic of prediabetes. In a patient with classic symptoms of hyperglycemia or hyperglycemic crisis, a random glucose >/= 200 mg/dl is diagnostic for diabetes. In the absence of unequivocal hyperglycemia, results should be confirmed by repeat testing. The classification and Diagnosis of Diabetes Diabetes Care 2021; 46: S19-S40. Current interpretive data was last revised 2022. Calcium 9.4 8.5 - 10.3 mg/dL [facility] Blood 07/30/2025 9:53 PM CDT 07/30/2025 11:10 PM CDT Nina Mireles HAND SPINNER LAB BLOOD ORDERABLES Final Result Performing Organization Address City/[facility]/ZIP Co de Phone Number [facility] [place] [address] * POCT glucose (07/30/2025 8:48 PM CDT) Glucose, POC 146 70 - 199 mg/dL Blood 07/30/2025 8:48 PM CDT 07/30/2025 8:48 PM CDT Washington Zaman MD LAB POCT ORDERABLES - DEVICE Final Result Performing Organization Address [facility] [place] [address] * POCT glucose (07/30/2025 5:47 PM CDT) Glucose, POC 130 70 - 199 mg/dL Blood 07/30/2025 5:47 PM CDT 07/30/2025 5:47 PM CDT Washington Zaman MD LAB POCT ORDERABLES - DEVICE Final Result Performing Organization Address [facility] de Phone Number [facility] [place] [address] * US Carotids Duplex Bilateral (07/30/2025 4:27 PM CDT) Anatomical Region Laterality Modality Vascular Bilateral Ultrasound 07/30/2025 2:46 PM CDT Narrative 07/30/2025 9:22 PM CDT [facility] - Department of Vascular Surgery, Vascular Laboratory [address] [place] [id number] Carotid Duplex Ultrasound Report Patient Name: SHERICE ARMAS : 1945 (80y 4m) Study Date: 07/30/2025 2:46:34 PM Gender: M Tech: BAKARI Location: [id number] Ref Provider: CARY DAMON Quality: Adequate Order Provider: CARY DAMON PROCEDURES: Carotid Report: Carotid duplex examination of the extracranial arteries was performed using 2D, color and spectral Doppler. INDICATIONS: Pre-Op Aortic Aneurysm Replacement. MEASUREMENTS: Right Value Units Left Value Units RT Prox CCA PSV 73 cm/sec LT Prox CCA PSV 102 cm/sec RT Prox CCA EDV 10 cm/sec LT Prox CCA EDV 12 cm/sec RT Distal CCA PSV 71 cm/sec LT Distal CCA PSV 80 cm/sec RT Distal CCA EDV 14 cm/sec LT Distal CCA EDV 13 cm/sec RT Prox ICA PSV 57 cm/sec LT Prox ICA PSV 85 cm/sec RT Prox ICA EDV 16 cm/sec LT Prox ICA EDV 20 cm/sec RT Mid ICA PSV 94 cm/sec LT Mid ICA PSV 94 cm/sec RT Mid ICA EDV 28 cm/sec LT Mid ICA EDV 21 cm/sec RT Distal ICA PSV 60 cm/sec LT Distal ICA PSV 52 cm/sec RT Distal ICA EDV 16 cm/sec LT Distal ICA EDV 16 cm/sec RT ECA Prx PSV 78 cm/sec LT ECA Prx PSV 77 cm/sec RT ICA/CCA 1.33 ratio LT ICA/CCA 1.18 ratio RT VERT PSV 27 cm/sec LT VERT PSV 44 cm/sec FINDINGS: Performing Algebraist: Obed Jones NVS, RVT. Rt Common Carotid Artery: Duplex imaging of the right common carotid artery is within normal limits without evidence of atherosclerotic disease. Rt Internal Carotid Artery: The plaque in the right internal carotid artery appears to be calcified and irregular. Atherosclerotic changes of the right internal carotid artery without hemodynamically significant Doppler findings. <50% stenosis. Rt External Carotid Artery: The right external carotid artery is patent without evidence of atherosclerotic plaque. Rt Vertebral Artery: Resistive flow in the right vertebral artery, may indicate more distal stenosis. Lt Common Carotid Artery: Duplex imaging of the left common carotid artery is within normal limits without evidence of atherosclerotic disease. Lt Internal Carotid Artery: The plaque in the left internal carotid artery appears to be calcified and irregular. Atherosclerotic changes of the left internal carotid artery without hemodynamically significant Doppler findings. <50% stenosis. Highly tortuous left internal carotid artery origin. Lt External Carotid Artery: The left external carotid artery is patent without evidence of atherosclerotic plaque. Lt Vertebral Artery: The left vertebral artery is patent with antegrade flow. CONCLUSIONS: 1. The right internal carotid artery disease is consistent with a less than 50% stenosis. 2. The left internal carotid artery disease is consistent with a less than 50% stenosis. 3. Resistive flow in the right vertebral artery, may indicate more distal stenosis. 4. Normal, antegrade flow is noted in the left vertebral artery. 5. No evidence of hemodynamically significant stenosis in the common carotid artery bilaterally. HISTORY: Mr. Sherice Armas is a 80 year old male with PMH of HTN, T2DM, BPH, atrial fibrillation on Xarelto, SBO s/p exploratory laparotomy with abdominal adhesiolysis who is referred to the cardiothoracic surgery clinic for evaluation of aortic aneurysm. He was admitted earlier this year for abdominal pain, with noted small bowel obstruction on abdominal CT scan. He underwent exploratory laparotomy with abdominal adhesiolysis. At that time CT of abdomen also showed ascending aortic aneurysm measuring 5.6cm, descending thoracic aorta is mildly dilated to 3.1. He underwent dissection protocol CTA which showed Ascending aortic aneurysm measuring up to 5.1 cm. Echocardiogram showed EF of 58%, aortic valve with mild/moderate regurgitation. PREVIOUS STUDIES: No previous studies for comparison. DISCLAIMER: The study images and the final report will be retained in the patient chart by the Vascular Laboratory for the legally required time period. This chart constitutes the legal record of any testing performed. ATTESTATION: I have reviewed and interpreted the pertinent images and measurements of this study. I attest to the conclusions in the final report that is provided above. Electronically Signed By: Vincent Khan MD FACS 07/30/2025 9:13:18 PM CDT Procedure Note Vincent Khan MD - 07/30/2025 [facility] - Department of Vascular Surgery,Vascular Laboratory [address] [place] [id number] Carotid Duplex Ultrasound Report Patient Name: SHERICE ARMAS : 1945 (80y 4m) Study Date: 07/30/2025 2:46:34 PM Gender: M Tech: Location: [id number] Ref Provider: CARY DAMON Quality: Adequate Order Provider: CARY DAMON PROCEDURES: Carotid Report: Carotid duplex examination of the extracranial arterieswas performed using 2D, color and spectral Doppler. INDICATIONS: Pre-Op Aortic Aneurysm Replacement. MEASUREMENTS: Right Value Units Left Value Units RT Prox CCA PSV 73 cm/sec LT Prox CCA PSV 102 cm/sec RT Prox CCA EDV 10 cm/sec LT Prox CCA EDV 12 cm/sec RT Distal CCA PSV 71 cm/sec LT Distal CCA PSV 80 cm/sec RT Distal CCA EDV 14 cm/sec LT Distal CCA EDV 13 cm/sec RT Prox ICA PSV 57 cm/sec LT Prox ICA PSV 85 cm/sec RT Prox ICA EDV 16 cm/sec LT Prox ICA EDV 20 cm/sec RT Mid ICA PSV 94 cm/sec LT Mid ICA PSV 94 cm/sec RT Mid ICA EDV 28 cm/sec LT Mid ICA EDV 21 cm/sec RT Distal ICA PSV 60 cm/sec LT Distal ICA PSV 52 cm/sec RT Distal ICA EDV 16 cm/sec LT Distal ICA EDV 16 cm/sec RT ECA Prx PSV 78 cm/sec LT ECA Prx PSV 77 cm/sec RT ICA/CCA 1.33 ratio LT ICA/CCA 1.18 ratio RT VERT PSV 27 cm/sec LT VERT PSV 44 cm/sec FINDINGS: Performing Algebraist: Obed Jones NVS, RVT. Rt Common Carotid Artery: Duplex imaging of the right common carotidartery is within normal limits without evidence of atherosclerotic disease. Rt Internal Carotid Artery: The plaque in the right internal carotidartery appears to be calcified and irregular. Atherosclerotic changes of the right internalcarotid artery without hemodynamically significant Doppler findings. <50% stenosis. Rt External Carotid Artery: The right external carotid artery is patentwithout evidence of atherosclerotic plaque. Rt Vertebral Artery: Resistive flow in the right vertebral artery, mayindicate more distal stenosis. Lt Common Carotid Artery: Duplex imaging of the left common carotid arteryis within normal limits without evidence of atherosclerotic disease. Lt Internal Carotid Artery: The plaque in the left internal carotid arteryappears to be calcified and irregular. Atherosclerotic changes of the left internalcarotid artery without hemodynamically significant Doppler findings. <50% stenosis. Highly tortuous left internal carotid artery origin. Lt External Carotid Artery: The left external carotid artery is patentwithout evidence of atherosclerotic plaque. Lt Vertebral Artery: The left vertebral artery is patent with antegradeflow. CONCLUSIONS: 1. The right internal carotid artery disease is consistent with a lessthan 50% stenosis. 2. The left internal carotid artery disease is consistent with a less than50% stenosis. 3. Resistive flow in the right vertebral artery, may indicate more distalstenosis. 4. Normal, antegrade flow is noted in the left vertebral artery. 5. No evidence of hemodynamically significant stenosis in the commoncarotid artery bilaterally. HISTORY: Mr. Sherice Armas is a 80 year old male with PMH of HTN, T2DM, BPH,atrial fibrillation on Xarelto, SBO s/p exploratory laparotomy with abdominaladhesiolysis who is referred to the cardiothoracic surgery clinic for evaluation of aorticaneurysm. He was admitted earlier this year for abdominal pain, with noted small bowelobstruction on abdominal CT scan. He underwent exploratory laparotomy with abdominaladhesiolysis. At that time CT of abdomen also showed ascending aortic aneurysm measuring5.6cm, descending thoracic aorta is mildly dilated to 3.1. He underwent dissection protocolCTA which showed Ascending aortic aneurysm measuring up to 5.1 cm. Echocardiogramshowed EF of 58%, aortic valve with mild/moderate regurgitation. PREVIOUS STUDIES: No previous studies for comparison. DISCLAIMER: The study images and the final report will be retained in the patientchart by the Vascular Laboratory for the legally required time period. This chartconstitutes the legal record of any testing performed. ATTESTATION: I have reviewed and interpreted the pertinent images and measurements ofthis study. I attest to the conclusions in the final report that is provided above. Electronically Signed By: Vincent Khan MD, FACS 07/30/2025 9:13:18 PM CDT us Cary Damon HAND SPINNER IMG US PROCEDURES Final Resu lt * ECG 12 lead (07/30/2025 1:47 PM CDT) Pathologist [facility] Ventricular Rate EKG/Min 53 BPM [facility] Atrial Rate 53 BPM [facility] GA-Interval (MSEC) 224 ms [facility] QRS-Interval (MSEC) 120 ms [facility] QT-Interval (MSEC) 448 ms [facility] QTc 420 ms [facility] P Homer 57 degrees [facility] R Homer -68 degrees [facility] T Homer 108 degrees [facility] Diagnosis Sinus bradycardia with 1st degree A-V block Pulmonary disease pattern Left anterior fascicular block Nonspecific T wave abnormality Abnormal ECG Confirmed by Frank CHU, Janene ([id number]) on 07/31/2025 9:08:16 AM [facility] 07/30/2025 1:47 PM CDT 07/31/2025 9:08 AM CDT us Cary Damon HAND SPINNER ECG ORDERABLES Final Result [facility] * Troponin I high-sensitivity (07/30/2025 1:44 PM CDT) Trop I hs 11 <=35 ng/L Comment: Interpretive Data For further hscTnI resources including the diagnostic algorithm and an aid in interpretation, copy and paste this link: [email or web address]/[email or web address] Current Interpretive Data last revised 2020. Blood 07/30/2025 1:44 PM CDT 07/30/2025 2:41 PM CDT us Cary Damon HAND SPINNER LAB BLOOD ORDERABLES Final R esult Performing Organization Address City/[facility] Co de Phone Number [facility] Department [place] [address] * (ABNORMAL) Pro B-type natriuretic peptide (07/30/2025 1:44 PM CDT) NT-proBNP 691(H) <=450 pg/mL Comment: Interpretive Comments: A. Dyspnea in Acute Care Setting All Ages: < 300 pg/ml, acute heart failure unlikely. < 50 yrs: 300 - 450 pg/ml, further investigation warranted. > 450 pg/ml, acute heart failure likely. 50 - 74 yrs: 300 - 900 pg/ml, further investigation warranted. > 900 pg/ml, acute heart failure likely . > or = 75 yrs: 450 - 1800 pg/ml, further investigation warranted. > 1800 pg/ml, acute heart failure likely. B. Non-acute Setting < 75 yrs < 125 pg/ml, rules out heart failure. > or = 125 pg/ml, further investigation warranted. > or = 75 yrs < 450 pg/ml, rules out heart failure. > or = 450 pg/ml, further investigation warranted. - Knowledge of each individual patient's NT-proBNP range may be more useful than using similar cut-points for every patient. Please note that marked elevations in NT-proBNP levels may be observed in state other than Left Ventricular Congestive Failure, including: acute coronary syndromes, right heart strain/failure (including pulmonary embolism and cor pulmonale), critical illness, renal failure, as well as advanced age. - References: 1. [facility] AGUILAR et.al. Eur Heart J. 2006:27:330-337. 2. Everardo SMITH, Kolton WILSON. J. AM Michael Cardiol: Cardiovasc Imag. 2009;2: 216- 225. Interpretive Data Last Revised Date: 2018. Blood 07/30/2025 1:44 PM CDT 07/30/2025 2:41 PM CDT Cary Damon HAND SPINNER LAB BLOOD ORDERABLES Final R esult Performing Organization Address [facility] de Phone Number [facility] [place] [address] * aPTT (07/30/2025 1:44 PM CDT) aPTT 31 26 - 38 sec Comment: Interpretive Data Heparin therapeutic range: 66.0 - 100.0 seconds. Range based on correlation with therapeutic heparin activity range of 0.3 - 0.7 Units/mL. Current interpretive data was last revised on 2023. Blood 07/30/2025 1:44 PM CDT 07/30/2025 2:20 PM CDT Narrative [facility] - 07/30/2025 2:36 PM CDT Baseline prior to heparin initiation Cary Damon HAND SPINNER LAB BLOOD ORDERABLES Final R esult Performing Organization Address [facility] Co de Phone Number [facility] [employer] [place] [address] * Protime-INR (07/30/2025 1:44 PM CDT) PT 13.1 10.2 - 13.5 sec INR 1.16 0.90 - 1.20 [facility] Comment: Interpretive data Oral anticoagulant therapeutic ranges: Venous thromboembolism prophylaxis or treatment: 2.0-3.0 CARDIOLOGY Standard range: 2.0-3.0 High-intensity range: 2.5-3.5 Refer to indication-specific guidelines for appropriate target ranges for prosthetic heart valve replacement. Current interpretive data was last revised on 2019. Blood 07/30/2025 1:44 PM CDT 07/30/2025 2:20 PM CDT Cary Damon HAND SPINNER LAB BLOOD ORDERABLES Final R esult Performing Organization Address [facility] Co de Phone Number [facility] [employer] [place] [address] * (ABNORMAL) TSH (07/30/2025 1:44 PM CDT) Thyroid Stimulating Hormone 6.28(H) 0.30 - 4.20 mcIUnit/mL Blood 07/30/2025 1:44 PM CDT 07/30/2025 2:41 PM CDT Result [facility] Cary Damon HAND SPINNER LAB BLOOD ORDERABLES Final R esult Performing Organization Address [facility] Co de Phone Number [facility] [employer] [place] [address] * T4, free (07/30/2025 1:44 PM CDT) Free T4 1.11 0.90 - 1.70 ng/dL Blood 07/30/2025 1:44 PM CDT 07/30/2025 2:41 PM CDT Result [facility] Cary Damon HAND SPINNER LAB BLOOD ORDERABLES Final R esult Performing Organization Address [facility] Co de Phone Number [facility] [employer] [place] [address] * Phosphorus (07/30/2025 1:44 PM CDT) Phosphorus, pl 4.2 2.3 - 4.5 mg/dL Blood 07/30/2025 1:44 PM CDT 07/30/2025 2:41 PM CDT Cary Damon HAND SPINNER LAB BLOOD ORDERABLES Final R esult Performing Organization Address City/[facility] Co de Phone Number [facility] [place] [address] * Magnesium (07/30/2025 1:44 PM CDT) Pathologist [facility] Magnesium 1.5 1.4 - 2.5 mg/dL Blood 07/30/2025 1:44 PM CDT 07/30/2025 2:41 PM CDT Cary Damon HAND SPINNER LAB BLOOD ORDERABLES Final R esult Performing Organization Address [facility] de Phone Number [facility] [place] [address] * (ABNORMAL) Lipid panel (07/30/2025 1:44 PM CDT) Pathologist [facility] Cholesterol 108 30 - 199 mg/dL Comment: Interpretive Data Ages < or = 19 years Acceptable: <170 mg/dL Borderline high: 170-199 mg/dL High: >or= 200 mg/dL Ages > or = 20 years Desirable: <200 mg/dL Borderline high: 200-239 mg/dL High: >or= 240 mg/dL Literature References: 1. Expert Panel on Integrated Guidelines for Cardiovascular Health and Risk Reduction in Children and Adolescents. Pediatrics 2011;128:S213 2. NCEP Expert Panel. Circulation 2004;110:227 Current Interpretive Data was last revised on 2018. Triglycerides 159(H) <=149 mg/dL [facility] Comment: Interpretive Data Ages < or = 9 years Acceptable: <75 mg/dL Borderline high: 75-99 mg/dL High: >or= 100 mg/dL Ages 10 to 20 years Acceptable: <90 mg/dL Borderline high: 90-129 mg/dL High: >or= 130 mg/dL Ages > or = 20 years Desirable: <150 mg/dL Borderline high: 150-199 mg/dL High: 200-499 mg/dL Very high: >or= 499 mg/dL Literature References: 1. Expert Panel on Integrated Guidelines for Cardiovascular Health and Risk Reduction in Children and Adolescents. Pediatrics 2011;128:S213 2. NCEP Expert Panel. Circulation 2004;110:227 Current Interpretive Data was last revised on 2018. HDL 25(L) >=40 mg/dL [facility] Comment: Interpretive Data Ages < or = 19 years Acceptable: >45 mg/dL Borderline low: 40-45 mg/dL Low: <40 mg/dL Ages > or = 20 years Desirable: >or= 60 mg/dL Low: <40 mg/dL Literature References: 1. Expert Panel on Integrated Guidelines for Cardiovascular Health and Risk Reduction in Children and Adolescents. Pediatrics 2011;128:S213 2. NCEP Expert Panel. Circulation 2004;110:227 Current Interpretive Data was last revised on 2018. LDL, calculated 56 <=129 mg/dL [facility] Comment: Interpretive Data Ages < or = 19 years Acceptable: <110 mg/dL Borderline high: 110-129 mg/dL High: >or= 130 mg/dL Ages > or = 20 years Optimal: <100 mg/dL Near optimal: 100-129 mg/dL Borderline high: 130-159 mg/dL High: >160 mg/dL Calculated using the Keith LDL-C estimating equation. This equation was implemented on 2024. Prior to this date LDL-C was estimated using the Friedewald equation. Literature References: 1. Expert Panel on Integrated Guidelines for Cardiovascular Health and Risk Reduction in Children and Adolescents. Pediatrics 2011;128:S213 2. NCEP Expert Panel. Circulation 2004;110:227 3. Keith Coffman al. FELICITAS Cardiol. 2020 March 22;5(5):540-548. doi: 10.1001/[email or web address] Current Interpretive Data was last revised on 2024. Non-HDL Cholesterol 83 mg/dL [facility] Comment: Interpretive Data Ages < or = 19 years Acceptable: <120 mg/dL Borderline high: 120-144 mg/dL High: >145 mg/dL Ages > or = 20 years When triglycerides are >200 mg/dL, Non-HDL cholesterol is a secondary target of therapy with treatment goals that are 30 mg/dL greater than the LDL cholesterol target. Literature References: 1. Expert Panel on Integrated Guidelines for Cardiovascular Health and Risk Reduction in Children and Adolescents. Pediatrics 2011;128:S213 2. NCEP Expert Panel. Circulation 2004;110:227 Current Interpretive Data was last revised on 2018. Chol/HDL ratio 4 [facility] Blood 07/30/2025 1:44 PM CDT 07/30/2025 2:41 PM CDT us Cary Damon NP LAB BLOOD ORDERABLES Final R esult [facility] [place] [address] * XR Chest PA Lateral 2 Views (07/30/2025 10:28 AM CDT) Anatomical Region Laterality Modality Body, Chest N/A Computed Radiogr aphy 07/30/2025 11:4 0 AM CDT Impressions 07/30/2025 11:57 AM CDT Comparison is made with prior study dated 04/25/2025. The cardiomediastinal silhouette is normal. Mild basilar atelectasis. No pleural effusion. No pneumothorax. Tortuous thoracic aorta. Aortic calcification. Dictated by: Amari Phelps M.D. The radiology attending physician has personally reviewed this study, and had reviewed and/or edited this written report and agrees with it. Electronically signed by: Cyndi Méndez M.D. Narrative 07/30/2025 11:57 AM CDT EXAMINATION: 2 view chest radiograph Procedure Note Cyndi Méndez MD - 07/30/2025 EXAMINATION: 2 view chest radiograph IMPRESSION: Comparison is made with prior study dated 04/25/2025. The cardiomediastinal silhouette is normal. Mild basilar atelectasis. No pleural effusion. No pneumothorax. Tortuous thoracic aorta. Aortic calcification. Dictated by: Amari Phelps M.D. The radiology attending physician has personally reviewed this study, and had reviewed and/or edited this written report and agrees with it. Electronically signed by: Cyndi Méndez M.D. Kristin Sharpe NP IMG XR PROCEDURES Final Res ult * (ABNORMAL) Urinalysis reflex to microscopic and culture Urine, clean voided (07/30/2025 10:11 AM CDT) Color, ur Straw Yellow Clarity, ur Clear Clear [facility] Specific gravity, ur 1.016 1.003 - 1.030 [facility] pH, urine 7.0 [facility] Comment: Interpretive Data U rine pH is affected by diet, medications, systemic acid-base disturbances, and renal tubular function. pH may affect urinary stone formation. For example, urine pH below 6.0 may help reduce the tendency for calcium phosphate stones and pH greater than 6.0 may reduce the tendency for uric acid stone formation. Source: [facility] [employer] Current Interpretive Data was last revised on 2017 Protein, ur ql 1+(A) Negative [facility] Glucose, ur ql Negative Negative [facility] Ketones, ur Negative Negative [facility] Bilirubin, ur Negative Negative [facility] Blood, ur Negative Negative [facility] Urobilinogen, ur <2.0 <2.0 mg/dL [facility] Nitrite, ur Negative Negative [facility] Leukocyte esterase, ur Negative Negative [facility] UA reflex comment Reflex to microscopic UA will be performed. [facility] Urine, clean voided 07/30/2025 10:11 AM CDT 07/30/2025 10:46 AM CDT Kristin Sharpe NP LAB MICROBIOLOGY - GENERAL ORDERABLES Final Result [facility] [place] [address] * (ABNORMAL) Urinalysis, microscopic only (07/30/2025 10:11 AM CDT) WBC, ur 0-5 0 - 5 /HPF RBC, ur 0-2 0 - 2 /HPF [facility] Mucous, ur Present(A) [facility] Culture Reflex Comment Reflex conditions for urine culture (WBC >10) not met. [facility] Urine, clean voided 07/30/2025 10:11 AM CDT 07/30/2025 10:46 AM CDT Kristin Sharpe NP LAB URINE ORDERABLES Final Result [facility] [place] [address] * (ABNORMAL) eGFR (07/30/2025 10:04 AM CDT) eGFR 42(L) >=60 mL/min/1. 73 m2 Comment: Interpretive Data Reference Interval Normal >/= 90 mL/min/1.73m2 Mildly decreased* 60 - 89 mL/min/1.73m2 Mildly to moderately decreased 45 - 59 mL/min/1.73m2 Moderately to severely decreased 30 - 44 mL/min/1.73m2 Severely decreased 15 - 29 mL/min/1.73m2 Kidney Failure < 15 mL/min/1.73m2 *Relative to young adult level Estimated glomerular filtration rate is determined by the 2020 CKD-EPI equation recommended by the National Kidney Foundation (A Unifying Approach to GFR Estimation: Recommendations of the NKF-ASK Task Force on Reassessing the Inclusion of Race in Diagnosing Kidney Disease, JASN 202). The CKD-EPI equation should not be used for patients with unstable renal function and has not been validated in children and those over 70. Current interpretive data was last reviewed 2021. Blood 07/30/2025 10:0 4 AM CDT 07/30/2025 10:54 AM CDT Kristin Sharpe NP LAB BLOOD ORDERABLES Final Result [facility] [place] [address] * Differential, auto (07/30/2025 10:04 AM CDT) Neutrophil abs 4.18 1.50 - 6.50 K/cumm Imm gran abs 0.02 0.00 - 0.10 K/cumm [facility] Lymphocyte abs 1.42 0.80 - 3.30 K/cumm [facility] Monocyte abs 0.60 0.20 - 0.80 K/cumm [facility] Eosinophil abs 0.28 0.00 - 0.50 K/cumm [facility] Basophil abs 0.03 0.00 - 0.10 K/cumm [facility] Neutrophil pct 64.0 % [facility] Comment: Interpretive Data Percent cell count reference ranges are not reported, since discordance with absolute values may lead to misinterpretation of CBC data. Current Interpretive Data was last revised on 2018. Imm gran pct 0.3 % [facility] Comment: Interpretive Data Percent cell count reference ranges are not reported, since discordance with absolute values may lead to misinterpretation of CBC data. Current Interpretive Data was last revised on 2018. Lymphocyte pct 21.7 % [facility] Comment: Interpretive Data Percent cell count reference ranges are not reported, since discordance with absolute values may lead to misinterpretation of CBC data. Current Interpretive Data was last revised on 2018. Monocyte pct 9.2 % [facility] Comment: Interpretive Data Percent cell count reference ranges are not reported, since discordance with absolute values may lead to misinterpretation of CBC data. Current Interpretive Data was last revised on 2018. Eosinophil pct 4.3 % [facility] Comment: Interpretive Data Percent cell count reference ranges are not reported, since discordance with absolute values may lead to misinterpretation of CBC data. Current Interpretive Data was last revised on 2018. Basophil pct 0.5 % [facility] Comment: Interpretive Data Percent cell count reference ranges are not reported, since discordance with absolute values may lead to misinterpretation of CBC data. Current Interpretive Data was last revised on 2018. Blood 07/30/2025 10:0 4 AM CDT 07/30/2025 10:54 AM CDT Kristin Sharpe NP LAB BLOOD ORDERABLES Final Result Performing Organization Address City/[facility]/ZIP Co de Phone Number [facility] Department [place] [address] * (ABNORMAL) CBC with auto differential (07/30/2025 10:04 AM CDT) WBC 6.53 3.80 - 9.90 K/cumm Hgb 11.0(L) 13.0 - 17.5 g/dL [facility] Hct 34.3(L) 38.9 - 50.3 % [facility] Plt 217 150 - 400 K/cumm [facility] MPV 9.9 9.1 - 12.3 fL [facility] RBC 4.09(L) 4.30 - 5.80 M/cumm [facility] MCV 83.9 81.3 - 96.4 fL [facility] MCH 26.9(L) 27.1 - 33.3 pg [facility] MCHC 32.1(L) 32.3 - 35.7 g/dL [facility] RDW CV 14.5 11.1 - 14.9 % [facility] RDW SD 44.2 35.7 - 48.1 fL [facility] NRBC abs 0.00 0.00 - 0.01 K/cumm [facility] Blood 07/30/2025 10:0 4 AM CDT 07/30/2025 10:54 AM CDT Kristin Sharpe NP LAB BLOOD ORDERABLES Final Result Performing Organization Address City/[facility]/ZIP Co de Phone Number [facility] [place] [address] * Type and screen (07/30/2025 10:04 AM CDT) ABO Rh O Positive Cedric, indirect Negative [facility] Blood 07/30/2025 10:0 4 AM CDT 07/30/2025 10:51 AM CDT Narrative [facility] - 07/30/2025 11:51 AM CDT Has the patient had Daratumumab or Isatuximab in the past 6 months?->Unknown Kristin Sharpe NP LAB BLOOD BANK TEST ORDERAB LES Final Result [facility] [place] [address] * (ABNORMAL) Comprehensive metabolic panel (07/30/2025 10:04 AM CDT) Sodium 140 135 - 145 mmol/L Potassium, pl 3.8 3.3 - 4.9 mmol/L [facility] Chloride 101 97 - 110 mmol/L [facility] CO2 29 22 - 32 mmol/L [facility] Anion gap 10 2 - 15 mmol/L [facility] BUN 23 6 - 25 mg/dL [facility] Creatinine 1.63(H) 0.80 - 1.30 mg/dL [facility] Glucose 168 70 - 199 mg/dL [facility] Comment: Interpretive Data Fasting glucose >/= 126 mg/dl is diagnostic for diabetes. Fasting is defined as no caloric intake for at least 8 hours. Fasting glucose between 100 mg/dl to 125 mg/dl is diagnostic of prediabetes. In a patient with classic symptoms of hyperglycemia or hyperglycemic crisis, a random glucose >/= 200 mg/dl is diagnostic for diabetes. In the absence of unequivocal hyperglycemia, results should be confirmed by repeat testing. The classification and Diagnosis of Diabetes Diabetes Care 2021; 46: S19-S40. Current interpretive data was last revised 2022. Calcium 9.5 8.5 - 10.3 mg/dL [facility] Bilirubin, total 0.5 0.1 - 1.2 mg/dL [facility] Protein, pl 8.1 6.5 - 8.5 g/dL [facility] Albumin 4.3 3.5 - 5.0 g/dL [facility] Alk phos 23(L) 40 - 130 Units/L [facility] ALT 23 7 - 55 Units/L [facility] AST 24 10 - 50 Units/L [facility] Blood 07/30/2025 10:0 4 AM CDT 07/30/2025 10:54 AM CDT Kristin Sharpe NP LAB BLOOD ORDERABLES Final Result Performing Organization Address [facility] de Phone Number [facility] Department [place] [address] * (ABNORMAL) POCT hemoglobin A1c (07/30/2025 8:47 AM CDT) Hgb A1C, POC 7.0(H) 4.0 - 5.6 % Est Average Gluc POC 154 mg/dL [facility] Comment: The ADA recommends reporting an estimated Average Glucose (eAG) with all Hemoglobin A1c results using the equation derived from a study of 507 normal and diabetic adults. Minority populations were underrepresented and children were not included. (Diabetes Care 31:5558-3128, 2008). The eAG is not equivalent to a fasting glucose. Blood 07/30/2025 8:47 AM CDT 07/30/2025 8:47 AM CDT Washington Zaman MD POINT OF CARE TEST ORDERABLES Final Result Performing Organization Address [facility] Co de Phone Number [facility] Department [place] [address] from Last 3 Months Insurance [employer] MEDICARE GOLD A[employer] MEDICARE GOLD [facility] Advance Directives For more information, please contact: [phone] * Full Code (Latest Code Status on File) Date Activated Date Inactivated Comments 09/03/2025 9:48 PM 09/19/2025 6:38 PM * Full Code Date Activated Date Inactivated Comments 08/01/2025 4:06 PM 08/14/2025 4:49 PM * Full Code Date Activated Date Inactivated Comments 07/30/2025 12:07 PM 08/01/2025 4:06 PM * Full Code Date Activated Date Inactivated Comments 06/27/2025 7:31 AM 06/27/2025 5:18 PM Care Teams [employer]ist Supp[employer] Salesperson Relationship Specialty Start Date End Date Rachelle Freitas DO PCP - General Family Medicine 03/08/25 Washington Zaman MD [id number] [place] [address] Surgeon Cardiothoracic Surgery 08/14/25 Unknown, Notinfile 08/14/25
--- OUTSIDE RECORDS SUMMARY | 2025-09-28 11:21 | XMS_ITS | Data Portability ---
Author Organization [place] - [facility], Main Office Address [address] [place] [address] Care Team Providers Care Car Blocker Name Role Phone P [facility] FAX OTHER NED BETHEA Primary Care Provider [phone] Assessment Encounter Date Assessment Date Assessment LastModified by Organization Details LastModified Time 08/23/2025 08/23/2025 Pt will d/c home with HHC and O2 at 2L/min per [place] on 08/24. Son is appealing this decision and actively working with SW on placement/private duty options as it is likely pt will not be able to manage his insulin. -- Addendum, pt won appeal. Due to pt's likely noncompliance, PCP will need to continue to continue taper off insulin lispro -- either by continuing up-titration of Tresiba or adding back a GLP-1 (pt was noncompliant with Ozempic in past due to cost). Not available 08/24/2025 12:44:37 08/24/2025 08/24/2025 Stop basal (5 units) insulin lispro. Continue TID SSI. Increase Tresiba to 35 units qhs starting 08/25 (give 30 units tonight). Expect to need further increase in Tresiba but will do gradually after monitoring through the weekend. Change Trazodone to PRN. Not available 08/25/2025 11:29:41 08/27/2025 08/27/2025 Labs pending fro m this AM. Monitor for need to further increase Tresiba. Son Orion requested a phone call today -- left a voicemail and waiting for return call. Not available 08/27/2025 14:34:08 08/29/2025 08/29/2025 Increase Lasix t o 40 mg BID x 3 days with KCL TID x 3 days. Labs on Wednesday -- need to closely monitor kidney function. Not available 08/29/2025 12:01:25 08/30/2025 08/30/2025 Pt will d/c home on 09/01 with [facility] and family oversight. Continues on increased Lasix (40 mg BID) through 09/01, then will resume normal dosing (20 mg BID) on 09/02. Will need closely monitoring of cardiopulmonary status as OP by PCP. Recommend referral to pulmonology for sleep study. Labs ordered for 08/31. Monitor for need to reduce Tresiba dosing as suspect his constant snacking here may decrease at home. Not available 08/30/2025 14:46:20 Plan of Treatment Reminders Order Date Submit Date Provider Last Modified By Organization Details Last Modified Time Details Appointments None recorded. Lab None recorded. Referral None recorded. Procedures None recorded. Surgeries None recorded. Imaging None recorded. Medication Orders hydralazine 25 mg tablet 2024 025 [facility] [address] [place], [address], 14:43:44 trazodone 50 mg tablet [email or web address] [facility] [address] [place], [address], 14:19:53 Tresiba FlexTouch U-100 insulin 100 unit/mL (3 mL) subcutaneou s pen [email or web address] [facility] [address] [place], [address], 14:19:36 insulin lispro (U-100) 100 unit/mL subcutaneou s pen [email or web address] [facility] [address] [place], [address], 10/02/202 5 16:58:13 rosuvastati n 10 mg tablet 2024 025 [facility] [address] [place], [address], 14:43:44 Patient TargetsNo targets recorded. Patient Instructions Encounter Date Encounter Id Patient Instructions Last Modified By Organization Details Last Modified Time 08/23/2025 [id number] I spent 40 minutes providing care to the patient today. [...] emergency room for new or worsening symptoms. Not available 08/23/2025 14:44:17 08/24/2025 [id number] I spent 37 minutes providing care to the patient today. More than 50% of that time was spent in discussing the expected course of the disease, discussing prognosis, coordinating care and counseling of the patient/family. Not available 08/25/2025 11:30:27 08/27/2025 [id number] I spent 37 minutes providing care to the patient today. More than 50% of that time was spent in discussing the expected course of the disease, discussing prognosis, coordinating care and counseling of the patient/family. Not available 08/27/2025 14:27:46 08/29/2025 [id number] I spent 46 minutes providing care to the patient today. More than 50% of that time was spent in discussing the expected course of the disease, discussing prognosis, coordinating care and counseling of the patient/family. Not available 08/29/2025 12:01:29 08/30/2025 [id number] I spent 37 minutes providing care to the patient today. More than 50% of that time was spent in discussing the expected course of the disease, discussing prognosis, coordinating care and counseling of the patient/family. Not available 08/30/2025 14:47:37 Reason for Referral None Reported. Results Created Date Observation Date Name Description Value Unit Range Abnormal Flag Note LastModifiedBy Organization Detail LastModifiedTime Result Notes None recorded. Procedures Surgical History Date Name Laterality Status Provider Name and Address Organization Details Recorded Time 11/22/18 93 nasal septoplasty completed Ana M Wu [place] - [facility] 02/09/2025 12:02:44 11/22/18 92 Cholecystectomy completed Ana M Khan [place] [facility] 02/09/2025 12:03:10 11/22/18 49 Tonsillectomy completed Ana Mpiotr [facility] - [facility] 02/09/2025 12:03:00 partial excision of [place] [address] [place], [address], [place] [facility] 02/12/2025 03:10:25 Imaging Results None recorded. Procedure Notes None recorded. Medical Equipment None Reported. Allergies No known drug allergies Medications Name Sig Start Date Stop Date Status Note LastModified by Organization Details LastModified Time Miralax 17 gram oral powder packet Take 1 packet every other day by oral route. 08/15 completed Not Available Not Available Not Available carvedilol 25 mg tablet Take 1 tablet twice a day by oral route. 2024 active Not Available Not Available Not Avai lable clonidine 0.1 mg/24 hr weekly transderma l patch Apply 1 patch every week by transder mal route. 08/15 completed Not Available Not Available Not Available trazodone 50 mg tablet Take 1 tablet every day by oral route as needed. active Not Available Not Available No t Available aspirin 325 mg tablet Take 1 tablet every day by oral route. 08/18 completed Not Available Not Available Not Available amiodarone 200 mg tablet Take 1 tablet every day by oral route for 3 days. 08/23 completed Stop Date: 08/21 Not Available Not Available Not Available hydrocodon e 5 mg-acetami nophen 325 mg tablet Take 1 tablet every 4 hours by oral route as needed. 08/15 completed Not Available Not Available Not Available simvastati n 10 mg tablet Take 1 tablet every day by oral route. 08/15 completed Not Available Not Available Not Available hydralazin e 25 mg tablet Take 3 tablets 3 times a day by oral route. 2024 active Not Available Not Available Not Avai lable melatonin 3 mg tablet Take 1 tablet every day by oral route as needed. 08/15 completed Not Available Not Available Not Available acetaminop hen 500 mg tablet Take 2 tablets every 6 hours by oral route as needed. active Not Available Not Available No t Available triamcinol one acetonide 0.1 % topical cream Apply 1 applicat ion twice a day by topical route as needed. 08/18 completed Not Available Not Available Not Available fenofibrat e micronized 134 mg capsule Take 1 capsule every day by oral route. 2024 active Not Available Not Available Not Avai lable levothyrox ine 25 mcg tablet Take 1 tablet every day by oral route. 2024 active Not Available Not Available Not Avai lable doxazosin 8 mg tablet Take 1 tablet every day by oral route. 2024 active Not Available Not Available Not Avai lable amlodipine 10 mg tablet Take 1 tablet every day by oral route. 2024 active Not Available Not Available Not Avai lable pantoprazo le 40 mg tablet,del ayed release Take 1 tablet every day by oral route. 08/15 completed Not Available Not Available Not Available metformin 1,000 mg tablet Take 1 tablet twice a day by oral route. 08/15 completed Not Available Not Available Not Available gabapentin 300 mg capsule Take 1 capsule twice a day by oral route. 2024 active Not Available Not Available Not Avai lable lisinopril 20 mg-hydroch lorothiazi de 25 mg tablet Take 1 tablet every day by oral route. 08/15 completed Not Available Not Available Not Available aspirin 81 mg chewable tablet Chew 1 tablet every day by oral route. active Not Available Not Available No t Available furosemide 20 mg tablet Take 1 tablet twice a day by oral route. 2024 active then [09/02] take 1 tablet twice a day. Not Available Not Available Not Available metoprolol succinate ER 25 mg tablet,ext ended release 24 hr Take 1 tablet every day by oral route. 08/15 completed Not Available Not Available Not Available insulin lispro (U-100) 100 unit/mL subcutaneo us solution Inject 5 units via subcutan eous route three times a day with meals. Also inject 0-5 units three times a day with meals as needed per sliding scale. 08/23 completed Not Available Not Available Not Available finasterid e 5 mg tablet Take 1 tablet every day by oral route. 2024 active Not Available Not Available Not Avai lable insulin lispro (U-100) 100 unit/mL subcutaneo us pen Inject 5 units via subcutan eous route three times a day with meals. Also inject 0-5 units three times a day with meals as needed per sliding scale. 08/23 completed Not Available Not Available Not Available rosuvastat in 10 mg tablet Take 1 tablet every day by oral route. 2024 active Not Available Not Available Not Avai lable saw palmetto 450 mg capsule Take 1 capsule every day by oral route. 08/15 completed Not Available Not Available Not Available Pen Needle 31 gauge x 3/16 Take 1 needle every day by miscell. route. 2024 active Not Available Not Available Not Avai lable Pedia-Lax (mag hydroxide) 400 mg (170 mg magnesium) chewable tablet Take 1 tablet every day by oral route. 08/15 completed Not Available Not Available Not Available Xarelto 20 mg tablet Take 1 tablet every day by oral route. 2024 active Not Available Not Available Not Avai lable potassium chloride ER 20 mEq tablet,ext ended release Take 1 tablet twice a day by oral route. 2024 active then [09/02] take 1 tablet by mouth twice a day. Not Available Not Available Not Available Tresiba FlexTouch U-100 insulin 100 unit/mL (3 mL) subcutaneo us pen Inject 35 units every day by subcutan eous route. 2024 active Not Available Not Available Not Avai lable Humalog Karan KwikPen (U-100) 100 unit/mL subcutaneo us half-unit pen Inject 0-12 units three times a day with meals as needed per sliding scale. 08/27 completed Not Available Not Available Not Available Glucosamin e Chondroiti n 550 mg-30 mg-1 mg capsule Take 1 capsule every day by oral route. 08/15 completed Not Available Not Available Not Available glucagon HCl 1 mg solution for injection Take 1 mg by injectio n route as needed. active Not Available Not Available No t Available Ozempic 0.25 mg or 0.5 mg (2 mg/3 mL) subcutaneo us pen injector Inject 0.5 mg every week by subcutan eous route. 08/15 completed Not Available Not Available Not Available Vitals Date Recorded Body height Heart rate Body temperature Respiratory rate Oxygen saturation Oxygen saturation in Arterial blood by Pulse oximetry Inhaled oxygen flow rate Systolic And Diastolic Provider Name and Address Organization Details Last Updated DateTime 167.64 cm 58 /min 98 [degF] 18 /min 91 % 91 % 2 L/min 128/68 mm[Hg] [place] [address] [place], [address], [facility] 09:43:26 Date Recorded Body height Heart rate Body temperature Respiratory rate Oxygen saturation Oxygen saturation in Arterial blood by Pulse oximetry Inhaled oxygen flow rate Systolic And Diastolic Provider Name and Address Organization Details Last Updated DateTime 167.64 cm 57.99 /min 98 [degF] 16 /min 95 % 95 % 3 L/min 128/66 mm[Hg] [place] [address] [place], [address], [place] [facility] 13:02:37 Date Recorded Body height Heart rate Body temperature Respiratory rate Oxygen saturation Oxygen saturation in Arterial blood by Pulse oximetry Inhaled oxygen flow rate Body mass index (BMI) Body weight Systolic And Diastolic Provider Name and Address Organization Details Last Updated DateTime 167.64 cm 69 /min 98 [degF] 18 /min 94 % 94 % 3 L/min 50.5 kg/m2 962919. 69 g 113/68 mm[Hg] [place] [address] [place], [address], [facility] 14:17:52 Date Recorded Body height Heart rate Body temperature Respiratory rate Oxygen saturation Oxygen saturation in Arterial blood by Pulse oximetry Inhaled oxygen flow rate Body mass index (BMI) Body weight Systolic And Diastolic Provider Name and Address Organization Details Last Updated DateTime 167.64 cm 64 /min 98.2 [degF] 16 /min 93 % 93 % 3 L/min 51.4 kg/m2 795035. 81 g 141/67 mm[Hg] [place] [address] [place], [address], [facility] 11:41:17 Date Recorded Body height Heart rate Body temperature Respiratory rate Oxygen saturation Oxygen saturation in Arterial blood by Pulse oximetry Inhaled oxygen flow rate Systolic And Diastolic Provider Name and Address Organization Details Last Updated DateTime 167.64 cm 60 /min 98 [degF] 18 /min 96 % 96 % 2 L/min 149/76 mm[Hg] [place] [address] [place], [address], [facility] 14:33:42 Social History Question Answer Notes LastModified by Xceive Details LastModified Time Tobacco Smoking Status Never Smoker Ana M Bill cannon, [facility] 02/09/2025 12:08:57 What Is Your Code Status? DNR [email or web address] Information not available 02/07/2025 Sex: Unknown Functional Status Question Answer Note LastModified by Xceive Details LastModified Time Do you use any illicit or recreational drugs? No [email or web address] Information not available 08/19/2025 What is your level of alcohol consumption? Occasional Information not available 02/09/2025 Mental Status None recorded. Family History Relationship Description Onset Age of this Age Resolved Age Notes LastModified by Organization Details LastModified Time Unspecified Relation Diabetes mellitus unspec ified grandp arent Not available 02/09/2025 12:04:21 Unspecified Relation Hypertensive disorder unspec ified grandp arents Not available 02/09/2025 12:05:01 Unspecified Relation Cerebrovascu lar accident unspec ified grandp arent Not available 02/09/2025 12:05:17 Father Hypertensive disorder Not available 2024 12:05:32 Father Family history of Raised blood lipids u Not available 2024 12:06:17 Father Cerebrovascu lar accident twu Not available 12:06:39 Father History of cardiovascul ar disease u Not available 02/09 12:08:17 Mother Hypertensive disorder u Not available 2024 12:05:40 Mother Family history of Raised blood lipids u Not available 2024 12:06:17 Mother Diabetes mellitus u Not available 2024 12:06:25 Mother Cerebrovascu lar accident u Not available 12:06:43 Mother History of cardiovascul ar disease u Not available 02/09 12:08:17 Medical History Condition Response GI Bleed Y Ulcer -- Venous Stasis Y Spinal Stenosis Y Fracture Y Past Encounters Encounter ID Performer Location Encounter Start Date Encounter Closed Date Diagnosis/Indication Diagnosis SNOMED-CT Code Diagnosis ICD10 Code Diagnosis IMO Codes Diagnosis Note [id number] Caity Thomas, [address] [address] 02/07/2025 08:50:05 02/18/2025 03:05:38 Small bowel obstruction 147914023 K56.609 s/p surgical interventi on 01/18contin ue wound caref/u with Dr. Gonsales 2 weeks - appt needs to be scheduledt he patient is tolerating a regular dietbowels are movingprn norco ordered for painmonito r clinically Aneurysm o f thoracic aorta 700531252 I71.20 descending thoracic aneurysm measuring 3.1 cmthe patient has been referred to CT surgery at [facility] - son has already called to schedule appointmen t. The office has requested records from [facility] prior to scheduling appointmen tcsalvatoreue ASA, optimize blood pressure control and monitor closely Aneurysm o f ascending aorta 625975806 I71.21 ascending aneurysm measuring 5.6 cmsee above Steatotic liver disease 039317315 K76.0 with hepatomega ly and mild ascites per CT imaging done during his hospitaliz ationLFTs were mildly elevated during his inpatient stay - they have since normalized He will need outpatient observatio n related to this Benign pro static hyperplasia without outflow obstruction 573857691 N40.0 he denies recent urinary retentionc ontinue proscar and doxazosin Hypothyroidism 52599578 E03.9 presumed stable - continue synthroid Essential hypertension 84350650 I10 poorly controlled during his hospitaliz ationhe had addition of amlodipine and clonidine patch to his usual outpatient meds to include lisinopril -HCTZ, doxazosin and metoprolol continue to trend and adjust meds as clinically indicated Diabetes mellitus 927411 09 E11.51 the patient was taking metformin as an outpatient - he also has ozempic ordered but he reports he was taking this for weight loss, not diabeteshe does not check blood sugars at home - does not have a glucometer no recent Hba1c per current hospital documents - might consider checking while herefor now, will follow blood sugars, continue metformin Hyperlipidemia 24170555 E78.5 presumed stable - continue statin therapy as well as fenofibrat e Gastritis 5935690 K29.70 continue ppi therapy History of deep vein thrombosis 842122425 Z86.718 continue xarelto Chronic ki dney disease stage 3 451616706 N18.30 stage 3 by history - avoid nephrotoxi ns, trend labs Delirium 2209506 F09 this complicate d his post operative course with a hospital elopement attempt - he ultimately required ICU admission and a precedex drip for sedationco nfusion is resolved and he has not required continued antipsycho tic meds or sedating medswill monitor clinically Obesity 507548527 E66.9 the patient had been taking ozempic [...] an outpatient . Diabetic p eripheral neuropathy 173286763 E11.40 continue neurontin and prn norco Physical deconditioning 3620261715 9102 R68.89 related to advanced age, recent hospitaliz ation / surgery and comorbidit iestherapi es are in place - the patient is hopeful to return home alone soon - will monitor progress [id number] Caity Thomas, [place] [address] [place] [address] 02/13/2025 09:52:07 02/18/2025 03:03:31 Small bowel obstruction 602653103 K56.609 s/p explorator y lap with abdominal adhesiolys is on 01/18.Robert nue wound careTolera ting a regular diet.Add [id number] Miralax.Co ntinue PRN APAP & [place] for pain.Monit or clinically .F/U with Dr. Gonsales on 02/22. Aneurysm o f thoracic aorta 852690585 I71.20 Descending thoracic aneurysm measuring 3.1 cm.Has been referred to CT surgery at [facility]. Son has already called to schedule appointmen t. The office has requested records from [facility] prior to scheduling appointmen tContinue ASA, optimize blood pressure control, and monitor closely. Aneurysm o f ascending aorta 168443758 I71.21 Ascending aneurysm measuring 5.6 cm.SEE ABOVE... Steatotic liver disease 419758739 K76.0 with hepatomega ly and mild ascites per CT imaging done during his hospitaliz ation.LFTs were mildly elevated during his inpatient stay. They have since normalized .He will need outpatient observatio n related to this. Benign pro static hyperplasia without outflow obstruction 594452821 N40.0 Denies recent urinary retention. Continue Proscar and Doxazosin. Hypothyroidism 18083997 E03.9 Presumed stable. Continue Synthroid. Essential hypertension 84492353 I10 Poorly-con trolled during his hospitaliz ation. Added Amlodipine and Clonidine patch to his usual outpatient regimen of Lisinopril -HCTZ, Doxazosin, and Metoprolol .Stable here. Continue to trend blood pressures, monitor lytes and renal function, and adjust meds as clinically indicated. Diabetes mellitus 901868 09 E11.51 Was taking Metformin and Ozempic as an outpatient . Continues on this regimen here.He does not check blood sugars at home - does not have a glucometer .No recent Hba1c per current hospital documents. Consider checking while here.For now, will follow blood sugars. Hyperlipidemia 54445216 E78.5 Presumed stable. Continue statin and fenofibrat e. Gastritis 4502662 K29.70 Stable. Continue PPI, especially as pt is on full-dose ASA & Xarelto. History of deep vein thrombosis 960684937 Z86.718 Details unclear. Continue full-dose ASA & Xarelto -- monitor for bleeding. Chronic ki dney disease stage 3 895422819 N18.30 Stage 3 by history.Av oid nephrotoxi ns and trend labs. Delirium 6887307 F09 Complicate d his post operative course with a hospital elopement attempt. He ultimately required ICU admission and a Precedex drip for sedation.C onfusion is resolved and he has not required continued antipsycho tic meds or sedating meds.Monit or clinically . Obesity 069424462 E66.9 Patient had been taking Ozempic as an outpatient per PCP for weight loss. He reports about a 30 pound weight loss over the recent months. Dr. Dorian leiva discussed with patient and family continued use especially in light of recent GI issues and surgery. Diabetic p eripheral neuropathy 453652447 E11.40 Stable. Continue Neurontin and PRN APAP & [place]. Physical deconditioning 8948637223 9102 R68.89 Related to advanced age, recent hospitaliz ation/surg raul, and comorbidit ies.Contin ue to monitor progress with therapies. Patient is hopeful to return home alone soon. Monitor progress. [id number] Caity Thomas, [address] [address] 02/16/2025 12:46:58 02/18/2025 03:05:00 Small bowel obstruction 218333763 K56.609 s/p explorator y lap with abdominal adhesiolys is on 01/18.Robert nue wound careTolera ting a regular diet.Add [id number] Miralax.Co ntinue PRN APAP & [place] for pain.Monit or clinically .F/U with Dr. Gonsales on 02/22. Aneurysm o f thoracic aorta 447415695 I71.20 Descending thoracic aneurysm measuring 3.1 cm.Has been referred to CT surgery at [facility]. Son has already called to schedule appointmen t. The office has requested records from [facility] prior to scheduling appointmen tContinue ASA, optimize blood pressure control, and monitor closely. Aneurysm o f ascending aorta 522582521 I71.21 Ascending aneurysm measuring 5.6 cm.SEE ABOVE... Essential hypertension 31536799 I10 Poorly-con trolled during his hospitaliz ation. Added Amlodipine and Clonidine patch to his usual outpatient regimen of Lisinopril -HCTZ, Doxazosin, and Metoprolol .Stable here. Continue to trend blood pressures. Diabetes mellitus 118762 09 E11.51 Was taking Metformin and Ozempic as an outpatient . Continues on this regimen here.He does not check blood sugars at home - does not have a glucometer .No recent Hba1c per current hospital documents. HgA1c on 02/14 is 6.7%.Follo w blood sugars as OP. Diabetic p eripheral neuropathy 510675337 E11.40 Stable. Continue Neurontin and PRN APAP & [place]. Chronic ki dney disease stage 3 812015741 N18.30 Stage 3 by history.Av oid nephrotoxi ns and trend labs. Hypothyroidism 48301976 E03.9 Presumed stable. Continue Synthroid. Hyperlipidemia 44614436 E78.5 Presumed stable. Continue statin and fenofibrat e. Benign pro static hyperplasia without outflow obstruction 049881585 N40.0 Denies recent urinary retention. Continue Proscar and Doxazosin. Steatotic liver disease 053795401 K76.0 with hepatomega ly and mild ascites per CT imaging done during his hospitaliz ation.LFTs were mildly elevated during his inpatient stay. They have since normalized .He will need outpatient observatio n related to this. Gastritis 5792491 K29.70 Stable. Continue PPI, especially as pt is on full-dose ASA & Xarelto. Obesity 756023907 E66.9 Patient had been taking Ozempic as an outpatient per PCP for weight loss. He reports about a 30 pound weight loss over the recent months. Dr. Thomas has discussed with patient and family continued use especially in light of recent GI issues and surgery. Delirium 7601138 F09 Complicate d his post operative course with a hospital elopement attempt. He ultimately required ICU admission and a Precedex drip for sedation.C onfusion is resolved and he has not required continued antipsycho tic meds or sedating meds.Monit or clinically . History of deep vein thrombosis 108229815 Z86.718 Details unclear. Continue full-dose ASA & Xarelto -- monitor for bleeding. [id number] Caity Thomas, DO PAC [facility] [address] [place] [address] 08/15/2025 07:35:50 08/24/2025 21:26:02 Aneurysm of ascending aorta [id number] I71.21 [id number] s/p surgical repair per Dr. Zaman 08/01/25 with AVR and MAZE proceduret he patient has tolerated the procedure fairly well without significan t post oeprative complicati ons.Wounds are well healing - SENTHIL at this point with continued need for close observatio n for secondary infection/ dehiscence especially in the setting of DM with poorly controlled blood sugars at timesconti nue sternal precaution s/therapie s/pain controlout patient f/u with CTS 4 weeks Paroxysmal atrial fibrillation 125478699 I48.0 91234 s/p MAZE procedure during his hospitaliz ationhe did have some post operative afib but reportedly converted to NSR prior to discharge which he still remains in at this timecontin ue coreg and amiodarone continue xarelto for VTE prophylaxi s (he also takes this related to LE DVTS)outpa tient f/u with cardiology Aortic inc ompetence, non-rheumatic 303650517 I35.1 9449596 s/p AVR as aboveconti nue wound care/pain control/th erapies Small kitty l obstruction 625022800 K56.609 s/p explorator y lap with abdominal adhesiolys is on 01/18/25 - the patient was admitted to [facility] for a short time following his inpatient stay related to thiscurren tly no acute issues related to thismonito r clinically Essential hypertension 03328952 I10 continue Amlodipine , coreg, doxazosin and hydralazin eACE and HCTZ have been discontinu ed due to GOLDIE - monitor for need to resume Diabetes mellitus 844972 09 E11.51 Was taking Metformin and Ozempic as an outpatient .seen by endocrine during his hospitaliz ation - started on lantus and TID insulinmet formin d/c'd due to renal diseaseHe does not check blood sugars at home - does not have a glucometer . which he will need prior to discharge from now that he is requiring insulinrec ent Hba1c 7% Diabetic p eripheral neuropathy 731616212 E11.40 Stable. Continue Neurontin and PRN APAP Hypothyroidism 21553094 E03.9 Presumed stable. Continue Synthroid. Hyperlipidemia 49903424 E78.5 stabe - Continue statin and fenofibrat e. Benign pro static hyperplasia without outflow obstruction 390094208 N40.0 Denies recent urinary retention. Continue Proscar and Doxazosin. Steatotic liver disease 129505908 K76.0 with hepatomega ly and mild ascites per CT imaging done during his hospitaliz ation back in [place] have been mildly elevatedf/ u with PCP related to this - will trend LFTS while here Gastritis 4070735 K29.70 Stable. PPI has been discontinu ed since his last rehab stay - monitor for need to resume especially IN A patient on ASA & Xarelto. Obesity 572140126 E66.9 Previously on Ozempic which the patient reports he has stopped due to cost and lack of weight loss History of deep vein thrombosis 325058225 Z86.718 recent LE dopplers c/w chronid RLE DVT - Continue xarelto Acute-on-c hronic renal failure 068265012 N17.9 N18.30 [id number] Stage 3 by history.cr eatinine uptrending during his inpatient stay - this was thought to be related to IV lasix which was switched to po and ultimately discontinu ed prior to hospital dischargem onitor for need to resume Physical deconditioning 4118084130 9102 R53.81 811496 related to advanced age, recent hospitaliz ation / surgery and comorbidit iestherapi es are in place - the patient is hopeful to return home alone upon d/c from [facility] [id number] Caity Thomas, [address] [address] 08/17/2025 09:40:51 08/24/2025 21:24:24 Aneurysm of ascending aorta 230296565 I71.21 [id number] s/p surgical repair per Dr. Zaman 08/01/25 with AVR, SANAZ closure, and MAZE procedure. Tolerated the procedure fairly well without significan t post-opera tive complicati ons documented .Wounds are well healing, SENTHIL at this point with continued need for close observatio n for secondary infection/ dehiscence especially in the setting of DM with poorly controlled blood sugars at times.Cont inue sternal precaution s/therapie s/pain control.Ou tpatient f/u with CTS 4 weeks. Paroxysmal atrial fibrillation 027137303 I48.0 42574 s/p MAZE procedure & SANAZ closure as above. Did have some post-opera tive afib but reportedly converted to NSR prior to discharge, which he still remains in at this time.Robert nue Coreg and Amiodarone .Continue Xarelto for VTE prophylaxi s (he also takes this related to BLE DVTs). Defer to cardiology whether to continue Xarelto in future.Out patient f/u with cardiology as directed and CTS as above. Aortic inc ompetence, non-rheumatic 669775824 I35.1 9347052 s/p AVR as above.SEE ABOVE... Diabetes mellitus 085485 09 E11.51 Metformin and Ozempic ordered as an outpatient , although it appears pt was noncomplia nt with Ozempic due to cost. He does not check his blood sugars at home, although he does have a glucometer at home. He was seen by endocrine during his hospitaliz ation, started on Lantus and TID SSI. Metformin d/c'd due to renal disease.Re cent Hba1c 7%.Continu e insulins for now. Goal would be to reduce insulin lispro and titrate upward on Tresiba, although unclear if pt will be compliant with insulin as OP.Monitor blood sugars and encourage LCS diet. Diabetic p eripheral neuropathy 408716426 E11.40 Stable. Continue Neurontin and PRN APAP Hypothyroidism 84278932 E03.9 Presumed stable. Continue Synthroid. Hyperlipidemia 07951762 E78.5 Stable. Continue statin and fenofibrat e. Benign pro static hyperplasia without outflow obstruction 154069069 N40.0 Denies recent urinary retention. Continue Proscar and Doxazosin. Checking post-void bladder scans as above to ensure not contributi ng to GOLDIE. Steatotic liver disease 589910079 K76.0 with hepatomega ly and mild ascites per CT imaging done during his hospitaliz ation back in December 2024. LFTs have been mildly elevated.T rend LFTS while here, avoid hepatotoxi ns, and f/u with PCP as OP. Gastritis 2814857 K29.70 Stable. PPI has been discontinu ed since his last rehab stay. Monitor for need to resume, especially with ASA & Xarelto. Obesity 836088387 E66.9 Previously on Ozempic, which the patient reports he has stopped due to cost and lack of weight loss.RD to follow. History of deep vein thrombosis 352675114 Z86.718 Recent BLE dopplers c/w chronic RLE DVT. Continue Xarelto. Acute-on-c hronic renal failure 463046775 N17.9 N18.30 [id number] Stage 3 by history. Cr uptrending during his inpatient stay - this was thought to be related to IV Lasix, which was switched to PO and ultimately discontinu ed prior to hospital discharge. Mildly improved although not back to baseline (Cr 1.1-1.2).P ush PO fluids.Mickie ck post-void residual bladder scans to ensure pt is not retaining urine.Labs on Wednesday. Physical deconditioning 5673896677 9102 R53.81 487025 Related to advanced age, recent hospitaliz ation / surgery and comorbidit ies.Therap ies are in place. Patient is hopeful to return home alone upon d/c from SNF, although son is uncertain if he will be able to manage his diabetes in this setting. Hypertensi ve renal disease 53082008 I12.9 N18.31 [id number] SEE ABOVE regarding GOLDIE on CKD.ACEi, Lasix, and HCTZ have been discontinu ed due to GOLDIE.BPs stable. Continue Amlodipine , Coreg, Doxazosin, and Hydralazin e.Of note, pt was previously also on Clonidine patches during last rehab stay in January 2025, no longer.Con tinue to trend blood pressures, monitor lytes and renal function, and adjust meds as clinically indicated. [id number] Caity Thomas, DO [facility] [address] [place] [address] 08/21/2025 11:21:41 08/24/2025 21:24:55 Aneurysm of ascending aorta 717762137 I71.21 [id number] s/p surgical repair per Dr. Zaman 08/01/25 with AVR, SANAZ closure, and MAZE procedure. Tolerated the procedure fairly well without significan t post-opera tive complicati ons documented .Wounds are well healed and SENTHIL.Contin ue sternal precaution s/therapie s/pain control.Ou tpatient f/u with CTS on 09/19. Paroxysmal atrial fibrillation 635520260 I48.0 01059 s/p MAZE procedure & SANAZ closure as above. Did have some post-opera tive afib but reportedly converted to NSR prior to discharge, which he still remains in at this time.Robert nue Coreg and Amiodarone .Continue Xarelto for VTE prophylaxi s (he also takes this related to BLE DVTs). Defer to cardiology whether to continue Xarelto in future.Out patient f/u with cardiology as directed and CTS as above. Aortic inc ompetence, non-rheumatic 100093287 I35.1 8872670 s/p AVR as above.SEE ABOVE... Acute-on-c hronic renal failure 197135869 N17.9 N18.30 5874098645 Stage 3 by history. Cr uptrending during his inpatient stay - this was thought to be related to IV Lasix, which was switched to PO and ultimately discontinu ed prior to hospital discharge. Improved although not back to baseline (Cr 1.1-1.2).C ontinue to trend labs. Hypertensi ve renal disease 13507939 I12.9 N18.31 [id number] SEE ABOVE regarding GOLDIE on CKD.ACEi, Lasix, and HCTZ have been discontinu ed due to GOLDIE.BPs stable. Continue Amlodipine , Coreg, Doxazosin, and Hydralazin e.Of note, pt was previously also on Clonidine patches during last rehab stay in January 2025, no longer.Con tinue to trend blood pressures, monitor lytes and renal function, and adjust meds as clinically indicated. Diabetes mellitus 599598 09 E11.51 Metformin and Ozempic ordered as an outpatient , although it appears pt was noncomplia nt with Ozempic due to cost. He does not check his blood sugars at home, although he does have a glucometer at home. He was seen by endocrine during his hospitaliz ation, started on Lantus and TID SSI. Metformin d/c'd due to renal disease.Re cent Hba1c 7%.Reduce basal insulin lispro to 5 units TID and increase Tresiba to 30 units daily. Will continue to transition away from lispro and to Tresiba.Mo nitor blood sugars and encourage LCS diet. Diabetic p eripheral neuropathy 171533274 E11.40 Stable. Continue Neurontin and PRN APAP Hypothyroidism 59907703 E03.9 Presumed stable. Continue Synthroid. Hyperlipidemia 82514581 E78.5 Stable. Continue statin and fenofibrat e. Benign pro static hyperplasia without outflow obstruction 147957161 N40.0 Denies recent urinary retention. Continue Proscar and Doxazosin. Checked post-void residual bladder scans -- no concern for retention here. Steatotic liver disease 489572939 K76.0 with hepatomega ly and mild ascites per CT imaging done during his hospitaliz ation back in December 2024. LFTs were mildly elevated, have since normalized .Continue to trend LFTs while here, avoid hepatotoxi ns, and f/u with PCP as OP. Gastritis 4197530 K29.70 Stable. PPI has been discontinu ed since his last rehab stay. Monitor for need to resume, especially with ASA & Xarelto. Obesity 273647993 E66.9 Previously on Ozempic, which the patient reports he has stopped due to cost and lack of weight loss.RD to follow. History of deep vein thrombosis 687642181 Z86.718 Recent BLE dopplers c/w chronic RLE DVT. Continue Xarelto. Physical deconditioning 1428438910 9102 R53.81 694849 Related to advanced age, recent hospitaliz ation / surgery and comorbidit ies.Therap ies are in place. Patient is hopeful to return home alone upon d/c from SNF, although son is uncertain if he will be able to manage his diabetes in this setting. [id number] Caity Thomas DO [address] [address] 08/23/2025 09:39:50 08/24/2025 21:25:25 Aneurysm of ascending aorta 998992644 I71.21 [id number] s/p surgical repair per Dr. Zaman 08/01/25 with AVR, SANAZ closure, and MAZE procedure. Tolerated the procedure fairly well without significan t post-opera tive complicati ons documented .Wounds are well healed and [employer].Contin ue sternal precaution s/therapie s/pain control.Ou tpatient f/u with CTS on 09/19. Paroxysmal atrial fibrillation 343652791 I48.0 67334 s/p MAZE procedure & SANAZ closure as above. Did have some post-opera tive afib but reportedly converted to NSR prior to discharge, which he still remains in at this time.Robert nue Coreg and Amiodarone .Continue Xarelto for VTE prophylaxi s (he also takes this related to BLE DVTs). Defer to cardiology whether to continue Xarelto in future.Out patient f/u with cardiology as directed and CTS as above. Aortic inc ompetence, non-rheumatic 062099303 I35.1 7829845 s/p AVR as above.SEE ABOVE... Acute-on-c hronic renal failure 646881528 N17.9 N18.30 [id number] Stage 3 by history. Cr uptrending during his inpatient stay - this was thought to be related to IV Lasix, which was switched to PO and ultimately discontinu ed prior to hospital discharge. Improved although not back to baseline (Cr 1.1-1.2).C ontinue to trend labs. Diabetes mellitus 248888 09 E11.51 Metformin and Ozempic ordered as an outpatient , although it appears pt was noncomplia nt with Ozempic due to cost. He does not check his blood sugars at home, although he does have a glucometer at home. He was seen by endocrine during his hospitaliz ation, started on Lantus and TID SSI. Metformin d/c'd due to renal disease.Re cent Hba1c 7%.Reduced basal insulin lispro to 5 units TID and increased Tresiba to 30 units daily.Due to pt's likely noncomplia nce, PCP will need to continue to continue taper off insulin lispro -- either by continuing up-titrati on of Tresiba or adding back a GLP-1 (pt was noncomplia nt with Ozempic in past due to cost).Lana tor blood sugars and encourage LCS diet. Diabetic p eripheral neuropathy 475657707 E11.40 Stable. Continue Neurontin and PRN APAP Hypothyroidism 38695283 E03.9 Presumed stable. Continue Synthroid. Hyperlipidemia 41441885 E78.5 Stable. Continue statin and fenofibrat e. Benign pro static hyperplasia without outflow obstruction 583692131 N40.0 Denies recent urinary retention. Continue Proscar and Doxazosin. Checked post-void residual bladder scans -- no concern for retention here. Steatotic liver disease 170783171 K76.0 with hepatomega ly and mild ascites per CT imaging done during his hospitaliz ation back in December 2024. LFTs were mildly elevated, have since normalized .Continue to trend LFTs while here, avoid hepatotoxi ns, and f/u with PCP as OP. Gastritis 1075725 K29.70 Stable. PPI has been discontinu ed since his last rehab stay. Monitor for need to resume, especially with ASA & Xarelto. Obesity 187421533 E66.9 Previously on Ozempic, which the patient reports he has stopped due to cost and lack of weight loss.RD to follow. History of deep vein thrombosis 759431474 Z86.718 Recent BLE dopplers c/w chronic RLE DVT. Continue Xarelto. 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 EF 58 %. Grade II diastolic dysfunctio n. Normal RV size and systolic function. ACEi, Lasix, and HCTZ have been discontinu ed due to GOLDIE.BPs stable. Continue Amlodipine , Coreg, Doxazosin, and Hydralazin e.Of note, pt was previously also on Clonidine patches during last rehab stay in January 2025, no longer.Con tinue to trend blood pressures, monitor lytes and renal function, and adjust meds as clinically indicated. Hypoxemic respiratory failure 1356412311 7979989 J96.91 221796283 Therapy obtained resting oxygen study, pt desatted to 88% on room air at rest. 2L NC was applied and O2 sat improved to 90-91%. SW is ordering home oxygen at 2L NC.SEE ABOVE... Primary insomnia 4362348 F51.01 42990 Stable. Continue Trazodone. Recommend pt establish with pulmonolog y as OP as would benefit from sleep study. However, unclear if pt would compliant with CPAP use. [id number] Caity Thomas, DO [facility] [address] [place] [address] 08/24/2025 12:44:55 08/26/2025 21:50:32 Aneurysm of ascending aorta 107410888 I71.21 [id number] s/p surgical repair per Dr. Zaman 08/01/25 with AVR, SANAZ closure, and MAZE procedure. Tolerated the procedure fairly well without significan t post-opera tive complicati ons documented .Wounds are well healed and SENTHIL.Contin ue sternal precaution s/therapie s/pain control.Ou tpatient f/u with CTS on 09/19. Paroxysmal atrial fibrillation 140634922 I48.0 09202 s/p MAZE procedure & SANAZ closure as above. Did have some post-opera tive afib but reportedly converted to NSR prior to discharge, which he still remains in at this time.Robert nue Coreg and Amiodarone .Continue Xarelto for VTE prophylaxi s (he also takes this related to BLE DVTs). Defer to cardiology whether to continue Xarelto in future.Out patient f/u with cardiology as directed and CTS as above. Aortic inc ompetence, non-rheumatic 381121478 I35.1 6799116 s/p AVR as above.SEE ABOVE... Acute-on-c hronic renal failure 069971025 N17.9 N18.30 5411423294 Stage 3 by history. Cr uptrending during his inpatient stay - this was thought to be related to IV Lasix, which was switched to PO and ultimately discontinu ed prior to hospital discharge. Improved although not back to baseline (Cr 1.1-1.2).C ontinue to trend labs. 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 EF 58 %. Grade II diastolic dysfunctio n. Normal RV size and systolic function. ACEi, Lasix, and HCTZ have been discontinu ed due to GOLDIE.BPs stable. Continue Amlodipine , Coreg, Doxazosin, and Hydralazin e.Of note, pt was previously also on Clonidine patches during last rehab stay in January 2025, no longer.Con tinue to trend blood pressures, monitor lytes and renal function, and adjust meds as clinically indicated. Hypoxemic respiratory failure 3566100129 9023330 J96.91 716586491 Therapy obtained resting oxygen study, pt desatted to 88% on room air at rest. 2L NC was applied and O2 sat improved to 90-91%. SW is ordering home oxygen at 2L NC.SEE ABOVE... Diabetes mellitus 500839 09 E11.51 Metformin and Ozempic ordered as an outpatient , although it appears pt was noncomplia nt with Ozempic due to cost. He does not check his blood sugars at home, although he does have a glucometer at home. He was seen by endocrine during his hospitaliz ation, started on Lantus and TID SSI. Metformin d/c'd due to renal disease.Re cent Hba1c 7%.Stop basal (5 units) insulin lispro. Continue TID SSI.Increa se Tresiba to 35 units qhs starting 08/25 (give 30 units tonight). Expect to need further increase in Tresiba but will do gradually after monitoring through the weekend.Mo nitor blood sugars and encourage LCS diet. Diabetic p eripheral neuropathy 390798230 E11.40 Stable. Continue Neurontin and PRN APAP Hypothyroidism 39848832 E03.9 Presumed stable. Continue Synthroid. Hyperlipidemia 05403923 E78.5 Stable. Continue statin and fenofibrat e. Benign pro static hyperplasia without outflow obstruction 701223265 N40.0 Denies recent urinary retention. Continue Proscar and Doxazosin. Checked post-void residual bladder scans -- no concern for retention here. Steatotic liver disease 315550867 K76.0 with hepatomega ly and mild ascites per CT imaging done during his hospitaliz ation back in December 2024. LFTs were mildly elevated, have since normalized .Continue to trend LFTs while here, avoid hepatotoxi ns, and f/u with PCP as OP. Gastritis 8891986 K29.70 Stable. PPI has been discontinu ed since his last rehab stay. Monitor for need to resume, especially with ASA & Xarelto. Primary insomnia 8005467 F51.01 56314 Pt is slow to wake up in AM, likely exacerbate d by suspicion for BHARATHI with lack of CPAP.Lorenzo hay Trazodone to PRN for now.Recomm end pt establish with pulmonolog y as OP as would benefit from sleep study. However, unclear if pt would compliant with CPAP use. Obesity 322775578 E66.9 Previously on Ozempic, which the patient reports he has stopped due to cost and lack of weight loss.RD to follow. History of deep vein thrombosis 501944546 Z86.718 Recent BLE dopplers c/w chronic RLE DVT. Continue Xarelto. [id number] Caity Thomas, DO [facility] [address] [place] [address] 08/27/2025 09:40:51 09/01/2025 23:33:43 Aneurysm of ascending aorta 049751094 I71.21 [id number] s/p surgical repair per Dr. Zaman 08/01/25 with AVR, SANAZ closure, and MAZE procedure. Tolerated the procedure fairly well without significan t post-opera tive complicati ons documented .Wounds are well healed and [employer].Contin ue sternal precaution s/therapie s/pain control.Ou tpatient f/u with CTS on 09/19. Paroxysmal atrial fibrillation 371730664 I48.0 83431 s/p MAZE procedure & SANAZ closure as above. Did have some post-opera tive afib but reportedly converted to NSR prior to discharge, which he still remains in at this time.Robert nue Coreg and Amiodarone .Continue Xarelto for VTE prophylaxi s (he also takes this related to BLE DVTs). Defer to cardiology whether to continue Xarelto in future.Out patient f/u with cardiology as directed and CTS as above. Aortic inc ompetence, non-rheumatic 540412236 I35.1 3864744 s/p AVR as above.SEE ABOVE... Acute-on-c hronic renal failure 419097506 N17.9 N18.30 2583353643 Stage 3 by history. Cr uptrending during his inpatient stay - this was thought to be related to IV Lasix, which was switched to PO and ultimately discontinu ed prior to hospital discharge. Improved although not back to baseline (Cr 1.1-1.2).C ontinue to trend labs. 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 Echo from April 2025 noted normal LV size & systolic function, concentric LV hypertroph y. EF 58 %. Grade II diastolic dysfunctio n. Normal RV size and systolic function. ACEi, Lasix, and HCTZ were discontinu ed due to GOLDIE.Stable . Continue Amlodipine , Coreg, Doxazosin, and Hydralazin e.Was restarted on Lasix & KCl on 08/25 by cardiology .Labs pending from this AM.Continu e to trend blood pressures, monitor lytes and renal function, and adjust meds as clinically indicated. Hypoxemic respiratory failure 5610392702 3677448 J96.91 599147948 Therapy obtained resting oxygen study, pt desatted to 88% on room air at rest. 2L NC was applied and O2 sat improved to 90-91%. SW is ordering home oxygen at 2L NC.SEE ABOVE... Diabetes mellitus 753850 09 E11.51 Metformin and Ozempic ordered as an outpatient , although it appears pt was noncomplia nt with Ozempic due to cost. He does not check his blood sugars at home, although he does have a glucometer at home. He was seen by endocrine during his hospitaliz ation, started on Lantus and TID SSI. Metformin d/c'd due to renal disease.Re cent Hba1c 7%.Stopped basal insulin lispro and will now stop SSI -- this has been a goal as we are fully aware that Chema will not be compliant with this as OP.Increas ed Tresiba to 35 units daily.Lana tor for need to further increase Tresiba.Mo nitor blood sugars and encourage LCS diet. Diabetic p eripheral neuropathy 766823429 E11.40 Stable. Continue Neurontin and PRN APAP Hypothyroidism 17083140 E03.9 Presumed stable. Continue Synthroid. Hyperlipidemia 10284418 E78.5 Stable. Continue statin and fenofibrat e. Benign pro static hyperplasia without outflow obstruction 221782810 N40.0 Denies recent urinary retention. Continue Proscar and Doxazosin. Checked post-void residual bladder scans -- no concern for retention here. Steatotic liver disease 444909108 K76.0 with hepatomega ly and mild ascites per CT imaging done during his hospitaliz ation back in December 2024. LFTs were mildly elevated, have since normalized .Continue to trend LFTs while here, avoid hepatotoxi ns, and f/u with PCP as OP. Gastritis 5456604 K29.70 Stable. PPI has been discontinu ed since his last rehab stay. Monitor for need to resume, especially with ASA & Xarelto. Primary insomnia 4070388 F51.01 09659 Pt is slow to wake up in AM, likely exacerbate d by suspicion for BHARATHI with lack of CPAP.Ventura ed Trazodone to PRN.Recomm end pt establish with pulmonolog y as OP as would benefit from sleep study. However, unclear if pt would compliant with CPAP use. Obesity [id number] E66.9 Previously on Ozempic, which the patient reports he has stopped due to cost and lack of weight loss.RD to follow. History of deep vein thrombosis [id number] Z86.718 Recent BLE dopplers c/w chronic RLE DVT. Continue Xarelto. [id number] Caity Thomas, DO [facility] [address] [place] [address] 08/29/2025 10:04:29 09/01/2025 23:36:28 Aneurysm of ascending aorta [id number] I71.21 [id number] s/p surgical repair per Dr. Zaman 08/01/25 with AVR, SANAZ closure, and MAZE procedure. 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 Paroxysmal atrial fibrillation [id number] I48.0 19299 s/p MAZE procedure & SANAZ closure as above. Did have some post-opera tive afib but reportedly converted to NSR prior to discharge, which he still remains in at this time.Robert nue Coreg and Amiodarone .Continue Xarelto for VTE prophylaxi s (he also takes this related to BLE DVTs). Defer to cardiology whether to continue Xarelto in future.Out patient f/u with cardiology as directed and CTS as above. Aortic inc ompetence, non-rheumatic 085045007 I35.1 0426661 s/p AVR as above.SEE ABOVE... Acute-on-c hronic renal failure 314842835 N17.9 N18.30 [id number] Stage 3 by history. Cr uptrending during his inpatient stay - this was thought to be related to IV Lasix, which was switched to PO and ultimately discontinu ed prior to hospital discharge. Lasix has been restarted as above.Avoi ding additional nephrotoxi ns when able.Cr markedly improved although he is not back to baseline (Cr 1.1-1.2).C ontinue to trend labs. 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 Echo from April 2025 noted normal LV size & systolic function, concentric LV hypertroph y. EF 58 %. Grade II diastolic dysfunctio n. Normal RV size and systolic function. ACEi, Lasix, and HCTZ were discontinu ed due to GOLDIE.Weight is climbing despite CTS restarting Lasix on 08/25.Robert nue Amlodipine , Coreg, Doxazosin, Lasix, KCl, and Hydralazin e.Will burst with low-dose Metolazone x 3 days -- need to cautiously diurese in this pt with recent GOLDIE but also have limited time before this pt is issued a discharge home, where his f/u will be questionab le.Continu e to trend blood pressures, weights, edema, lytes and renal function, and adjust meds as clinically indicated. Hypoxemic respiratory failure [id number] 9223365 J96.91 [id number] Therapy obtained resting oxygen study, pt desatted to 88% on room air at rest. 2L NC was applied and O2 sat improved to 90-91%.SEE ABOVE... Diabetes mellitus 709351 09 E11.51 Metformin and Ozempic ordered as an outpatient , although it appears pt was noncomplia nt with Ozempic due to cost. He does not check his blood sugars at home, although he does have a glucometer at home. He was seen by endocrine during his hospitaliz ation, started on Lantus and TID SSI. Metformin d/c'd due to renal disease.Re cent Hba1c 7%.Increas ed Tresiba to 35 units daily with rob t, have been able to stop both basal and sliding insulin lispro entirely as were aware pt would not be able to manage this as OP.Monitor blood sugars and encourage LCS diet.Did discuss with pt's son Orion on 08/27 that his Tresiba may need to be reduced if his eating habits change when he discharges , as the pt is snacking nearly constantly at this facility and may cease this when he discharges home. Orion notes his brother Anthony will be staying with his dad for the first week at home and will monitor his blood sugars closely. Diabetic p eripheral neuropathy 545348477 E11.40 Stable. Continue Neurontin and PRN APAP. Hypothyroidism 14802250 E03.9 Presumed stable. Continue Synthroid. Hyperlipidemia 17043912 E78.5 Stable. Continue statin and fenofibrat e. Benign pro static hyperplasia without outflow obstruction 587861688 N40.0 Denies recent urinary retention. Continue Proscar and Doxazosin. Checked post-void residual bladder scans -- no concern for retention here. Steatotic liver disease 261760539 K76.0 with hepatomega ly and mild ascites per CT imaging done during his hospitaliz ation back in December 2024. LFTs were mildly elevated, have since normalized .Continue to trend LFTs while here, avoid hepatotoxi ns, and f/u with PCP as OP. Gastritis 2027004 K29.70 Stable. PPI has been discontinu ed since his last rehab stay. Monitor for need to resume, especially with ASA & Xarelto. Primary insomnia 8212365 F51.01 17392 Pt was slow to wake up in AM, likely exacerbate d by suspicion for BHARATHI with lack of CPAP. Changed Trazodone to PRN with rob elias.Consider reducing Gabapentin dosing if recurs.Rec ommend pt establish with pulmonolog y as OP as would benefit from sleep study. However, unclear if pt would compliant with CPAP use. Obesity 433250095 E66.9 Previously on Ozempic, which the patient reports he has stopped due to cost and lack of weight loss.RD to follow. History of deep vein thrombosis 276948165 Z86.718 Recent BLE dopplers c/w chronic RLE DVT. Continue Xarelto. [id number] Caity Thomas, DO [facility] [address] [place] [address] 08/30/2025 14:27:56 09/05/2025 21:06:39 Aneurysm of ascending aorta [id number] I71.21 [id number] s/p surgical repair per Dr. Zaman 08/01/25 with AVR, SANAZ closure, and MAZE procedure. Tolerated the procedure fairly well without significan t post-opera tive complicati ons in the hospital, however progress and clinical status has been rather poor here post-op without actual acute concerns beyond general lack of expected reboundin g/improve ment in cardiac/re spiratory/ physical status.Wou nds are well healed and SENTHIL.Contin ue sternal precaution s/therapie s/pain control.Ou tpatient f/u with CTS on 09/19. Paroxysmal atrial fibrillation 468611371 I48.0 16009 s/p MAZE procedure & SANAZ closure as above. Did have some post-opera tive afib but reportedly converted to NSR prior to discharge, which he still remains in at this time.Robert nue Coreg and Amiodarone .Continue Xarelto for VTE prophylaxi s (he also takes this related to BLE DVTs). Defer to cardiology whether to continue Xarelto in future.Out patient f/u with cardiology as directed and CTS as above. Aortic inc ompetence, non-rheumatic 733087768 I35.1 3595052 s/p AVR as above.SEE ABOVE... Hypertensi ve heart AND chronic kidney disease with congestive heart failure 2067725219 9107 I13.0 I50.33 N18.31 [id number] SEE BELOW regarding GOLDIE on CKD. Echo from April 2025 noted normal LV size & systolic function, concentric LV hypertroph y. EF 58 %. Grade II diastolic dysfunctio n. Normal RV size and systolic function. ACEi, Lasix, and HCTZ were discontinu ed due to GOLDIE.Contin ue Amlodipine , Coreg, Doxazosin, Lasix, KCl, and Hydralazin e.Weight is climbing despite CTS restarting Lasix on 08/25. Increased Lasix & KCl x 3 days, then will resume usual dosing on 09/02. Will need monitor closely as OP.Continu e to trend blood pressures, weights, edema, lytes and renal function, and adjust meds as clinically indicated. Acute-on-c hronic renal failure 419591197 N17.9 N18.30 [id number] Stage 3 by history. Cr uptrending during his inpatient stay - this was thought to be related to IV Lasix, which was switched to PO and ultimately discontinu ed prior to hospital discharge. Lasix has been restarted as above.Avoi ding additional nephrotoxi ns when able.Cr markedly improved although he is not back to baseline (Cr 1.1-1.2).C ontinue to trend labs. Hypoxemic respiratory failure [id number] 3554228 J96.91 088622802 Chema satted 94% on RA at rest but desatted to 85% with activity. He improved to 89% during activity when O2 was applied at 2L. It took him 2 minutes on oxygen for recovery. 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 Continue to recommend pt establish with pulmonolog y for further titration and for a sleep study as have high suspicion pt has BHARATHI. Son is aware of duong skinner.SEE ABOVE... Diabetes mellitus 480407 09 E11.51 Metformin and Ozempic ordered as an outpatient , although it appears pt was noncomplia nt with Ozempic due to cost. He does not check his blood sugars at home, although he does have a glucometer at home. He was seen by endocrine during his hospitaliz ation, started on Lantus and TID SSI. Metformin d/c'd due to renal disease.Re cent Hba1c 7%.Increas ed Tresiba to 35 units daily with improvemen t, have been able to stop both basal and sliding insulin lispro entirely as were aware pt would not be able to manage this as OP.Monitor blood sugars and encourage LCS diet.Did discuss with pt's son Orion on 08/27 that Tresiba may need to be reduced if his eating habits change when he discharges , as the pt is snacking nearly constantly at this facility and may cease this when he discharges home. Orion notes his brother Anthony will be staying with his dad for the first week at home and will monitor his blood sugars closely. Diabetic p eripheral neuropathy 063799156 E11.40 Stable. Continue Neurontin and PRN APAP. Hypothyroidism 59239508 E03.9 Presumed stable. Continue Synthroid. Hyperlipidemia 62738502 E78.5 Stable. Continue statin and fenofibrat e. Benign pro static hyperplasia without outflow obstruction 298061643 N40.0 Denies recent urinary retention. Continue Proscar and Doxazosin. Checked post-void residual bladder scans -- no concern for retention here. Steatotic liver disease 165065092 K76.0 with hepatomega ly and mild ascites per CT imaging done during his hospitaliz ation back in December 2024. LFTs were mildly elevated, have since normalized .Continue to trend LFTs while here, avoid hepatotoxi ns, and f/u with PCP as OP. Gastritis 6453577 K29.70 Stable. PPI has been discontinu ed since his last rehab stay. Monitor for need to resume, especially with ASA & Xarelto. Primary insomnia 2395072 F51.01 14110 Pt was slow to wake up in AM, likely exacerbate d by suspicion for BHARATHI with lack of CPAP. Changed Trazodone to PRN with improvemen t.Consider reducing Gabapentin dosing if recurs.Rec ommend pt establish with pulmonolog y as OP as would benefit from sleep study. However, unclear if pt would compliant with CPAP use. Obesity 219628110 E66.9 Previously on Ozempic, which the patient reports he has stopped due to cost and lack of weight loss.RD to follow. History of deep vein thrombosis 853188221 Z86.718 Recent BLE dopplers c/w chronic RLE DVT. Continue Xarelto. Health Concerns Section Related Observation LastModified by Organization Detai ls LastModified Time None Recorded Concern Status LastModified by Organization Details LastModified Time None Recorded Advance Directives Directive None Recorded Payers Insurance Date Sequence Insurance Name Policy Number Policy Gramajo Covered Member ID Gramajo Member ID Guarantor Name 09/05/2025 1 [employer] (MEDICARE REPLACEMENT/ ADVANTAGE - HMO) [id number] Yash Aguirre [id number] Yash Aguirre 02/07/2025 1 [facility] (MEDICARE REPLACEMENT/ ADVANTAGE - HMO) Yash Aguirre [id number] Yash Aguirre Notes Date Note Type Note Provider Name and Address Organization Details Recorded Time 08/23/2025 text/html 80 Y/O male admitted to [facility] for post acute rehab subsequent to an inpatient stay at [facility] 07/30-08/14/2025 for surgical repair of an ascending aortic aneurysm. Per discharge summary:80 year old male with PMH of hypertension, type 2 diabetes, BPH, atrial fibrillation/RLE DVT on Xarelto, SBO s/p exploratory laparotomy with abdominal adhesiolysis in 12/2024, who has been evaluated by the cardiothoracic surgery clinic for evaluation of aortic aneurysm and recently had a visit on 07/19/25. He was admitted in December 2024 for abdominal pain, with noted small bowel obstruction on abdominal CT scan. He underwent exploratory laparotomy with abdominal adhesiolysis. At that time CT of abdomen also showed ascending aortic aneurysm measuring 5.6cm, descending thoracic aorta is mildly dilated to 3.1. He underwent dissection protocol CTA which showed ascending aortic aneurysm measuring up to 5.1 cm. His 04/25/25 echocardiogram showed EF of 58% and aortic valve with mild/moderate regurgitation. He underwent a fall in March 2025 while visiting his son in [place]. He then developed swelling in his left knee, and was admitted to [facility] in May 2025 for incision and drainage of the left knee, and placed on antibiotic therapy. He was scheduled for aortic aneurysm replacement with possible AVR with Dr. Zaman on 08/01/25.He was admitted today for Heparin bridge, carotid ultrasound and PFT prior to his planned OR on 08/01/25 for aortic aneurysm replacement and possible AVR with Dr. Zaman. He arrives in no acute distress. He denies chest pain, dyspnea, nausea, vomiting, or dizziness.Ms. Aguirre was taken to the operating room on 08/01/[address] [place] Zaman for:REPLACEMENT ANEURYSM ASCENDING AORTIC HEMIARCH-28MM GELWEAVE GRAFT (N/A)REPLACEMENT AORTIC VALVE- 29 mm AORTIC MAGNA EASE (N/A)MAZE PROCEDURE OPEN HEART - ENCOMPASS (N/A)CLIPPING ATRIAL APPENDAGE ATRICURE FLEX V 45MM (N/A)CLOSURE STERNAL - WITH PLATES- FIBERTAPE & KARLENE PLATING SYSTEM (N/A)Patient arrived to the ICU hemodynamically supported on NE at 0.6 and vaso at 0.04. He was orally intubated on full mechanical support and reported to be an easy airway. They received 1L albumin and 2L crystalloid intra-operatively. Post CPB AMNA showed normal biventricular function, no AI on no inotropes. When hemodynamically stable he was weaned from ventilatory and inotropic support.The patient was transferred to the stepdown unit in stable condition on 08/07. Post-op course notable for atrial fibrillation. He was started on bival and amiodarone infusions and eventually transitioned to Xarelto and oral amiodarone. Chest tubes were discontinued without difficulty and epicardial wires were cut at the skin prior to discharge. He remained in rate controlled atrial fibrillation but was protected with Xarelto, but fortunately converted to NSR on 06/12. He also still required low dose O2 during sleep and prn during the day. The patient progressed as expected. Aggressive physical therapy and pulmonary toilet were initiated, diet was advanced as tolerated, and wounds remained clean, dry and intact.Today he is ready for transfer to [facility] for further rehabilitation.Endocr terrell consulted during his hospitalization - recommended initiation of insulin to optimize control of his diabetes. New medications: tylenol, amiodarone, coreg, fenofibrate 145 mcg, glucagon, hydralazine, insulin degludec and insulin lispro, rosuvastatin, trazodoneStopped medications: peridex, clonidine, coenzyme Q10, fenofibrate 134 mcg, lisinopril/hctz, metformin, metoprolol, saw palmetto, simvastatin The patient is known to this service from a short rehab stay back in January of this year following a hospitalization at [facility] for a surgical small bowel obstruction. Code status is DNR.No POA - alternate contacts remain his sons or sister, Chel.PCP Ned Bethea.---08/15/25Rob ert is wheeling himself around the facility this evening. He is a fair historian. Pain is controlled. He has notable edema which he feels is probably worse than usual. We talk about his newly prescribed insulin which he has not previously used at home. He is not adverse to continuing this as long as it doesn't cost too much. He has not been compliant with his previously prescribed ozempic due to cost. No nursing concerns.---08/18/25Bo travis is resting in his recliner, awakens to my voice, is confused and transposes words throughout our conversation with notable difficulties word-finding. He denies pain or concerns at this time. VSS. Staff is without concerns beyond aforementioned confusion. Per therapy notes = failitated gait training with FWW for up to 110 ft increments with CGA wtih cues to slow gait speed for safety. cues for pursed lip breathing throughout as well.---08/21/25Botravis is seated in his recliner in his room, doing well, confused but pleasant and alert, noted to have self-removed his oxygen cannula. I assist him in replacing this -- he had not realized he had left it off. He is without concerns and reports pain is well-controlled. He does report he has not had a BM but is not able to tell me for how long. I have asked nursing to investigate this and add cathartics as appropriate per standing orders. VSS. Staff is without concerns at this time. Per therapy notes = Conducted gait training with FWW 125' CGA to SBA cues for keeping AD on the floor throughout turns. Decreased safety awareness. 24807: sit/stand SBA pvt transfer wc/recliner SBA cues for locking brakes.---08/23/25Botravis is resting in his recliner in his room, doing fairly well today. We discuss his pending discharge and his need to check his blood sugar so that he can dose his insulin appropriately. He does confirm he has a glucometer at home and knows how to use it, is not enthusiastic about having to check his blood sugar that often. I encourage her to f/u with PCP as they can continue to up-titrate his long-acting insulin so his insulin lispro can be stopped, but we do not have enough time here to do that. His son has filed an appeal with insurance but Chema says, what difference will a week really make? He tells me he thinks he will do fine at home. I discuss with him that the appeal would give his son more time to arrange in-home care for him, and Chema does admit it would be nice to have private duty nursing in his home for a few hours every day, especially to help with meals. VSS. Staff is without concerns beyond aforementioned. Therapy has performed oxygen test and SW is working on ordering home oxygen. Forms here for me to sign. Per therapy notes = Conducted gait training with FWW 125' CGA to SBA cues for keeping AD on the floor throughout turns. Decreased safety awareness. sit/stand SBA pvt transfer wc/recliner SBA cues for locking brakes. Edita Riley, LEAD INFRASTRUCTURE ARCHITECT [address] [facility], [place], [address], [place] [facility] 08/24/2025 12:44:40 08/24/2025 text/html F/U surgical repair of ascending aortic aneurysm, aortic valve replacement, maze procedure, and SANAZ closure, acute hypoxemic respiratory failure, poorly-controlled DM-2 due to noncompliance, deconditioning/weakne ss, and chronic medical conditions.---08/15/25 Yash is wheeling himself around the facility this evening. He is a fair historian. Pain is controlled. He has notable edema which he feels is probably worse than usual. We talk about his newly prescribed insulin which he has not previously used at home. He is not adverse to continuing this as long as it doesn't cost too much. He has not been compliant with his previously prescribed ozempic due to cost. No nursing concerns.---08/18/25Bo travis is resting in his recliner, awakens to my voice, is confused and transposes words throughout our conversation with notable difficulties word-finding. He denies pain or concerns at this time. VSS. Staff is without concerns beyond aforementioned confusion. Per therapy notes = failitated gait training with FWW for up to 110 ft increments with CGA wtih cues to slow gait speed for safety. cues for pursed lip breathing throughout as well.---08/21/25Botravis is seated in his recliner in his room, doing well, confused but pleasant and alert, noted to have self-removed his oxygen cannula. I assist him in replacing this -- he had not realized he had left it off. He is without concerns and reports pain is well-controlled. He does report he has not had a BM but is not able to tell me for how long. I have asked nursing to investigate this and add cathartics as appropriate per standing orders. VSS. Staff is without concerns at this time. Per therapy notes = Conducted gait training with FWW 125' CGA to SBA cues for keeping AD on the floor throughout turns. Decreased safety awareness. 39670: sit/stand SBA pvt transfer wc/recliner SBA cues for locking brakes.---08/23/25Botravis is resting in his recliner in his room, doing fairly well today. We discuss his pending discharge and his need to check his blood sugar so that he can dose his insulin appropriately. He does confirm he has a glucometer at home and knows how to use it, is not enthusiastic about having to check his blood sugar that often. I encourage her to f/u with PCP as they can continue to up-titrate his long-acting insulin so his insulin lispro can be stopped, but we do not have enough time here to do that. His son has filed an appeal with insurance but Chema says, what difference will a week really make? He tells me he thinks he will do fine at home. I discuss with him that the appeal would give his son more time to arrange in-home care for him, and Chema does admit it would be nice to have private duty nursing in his home for a few hours every day, especially to help with meals. VSS. Staff is without concerns beyond aforementioned. Therapy has performed oxygen test and SW is working on ordering home oxygen. Forms here for me to sign. Per therapy notes = Conducted gait training with FWW 125' CGA to SBA cues for keeping AD on the floor throughout turns. Decreased safety awareness. sit/stand SBA pvt transfer wc/recliner SBA cues for locking brakes.---08/24/25Botravis is seen returning from his physical therapy session, alert, self-transfers with standby assistance, alert, at baseline mental status, without concerns or complaints today. Both nursing and therapy have reported concerns that Chema appeared drowsy this morning, that he would nod off during his therapy session but then walk 150 feet. Nursing reports that he was slow to wake up and was confused, but this gradually improved. I discuss changing Chema's Trazodone to PRN but he does report he does not sleep well, although he attributes that to the arrival of a new suite-mate and staff coming in and out frequently to get them settled. Luckily insurance accepted his appeal so I discuss the plan to further reduce his insulin lispro in the hopes we can stop this before discharge, as it is clear pt will not be compliant with this. He expresses gratitude for this. VSS. He continues on 2-3L NC continuously. Staff is working on insulin & oxygen training. They are without concerns otherwise. Per therapy notes = facilitated gait training with FWW for up to 150 ft with cues for pursed lip breathing throughout with pt limited by SOB. SBA-CGA. Educated pt he should be using AD at all times due to pt in bathroom without AD or WC. Edita Riley, LEAD INFRASTRUCTURE ARCHITECT [address] [place], [address], [facility] [facility] 08/25/2025 11:30:49 08/27/2025 text/html F/U surgical repair of ascending aortic aneurysm, aortic valve replacement, maze procedure, and SANAZ closure, acute hypoxemic respiratory failure, poorly-controlled DM-2 due to noncompliance, deconditioning/weakne ss, and chronic medical conditions.---08/15/25 Yash is wheeling himself around the facility this evening. He is a fair historian. Pain is controlled. He has notable edema which he feels is probably worse than usual. We talk about his newly prescribed insulin which he has not previously used at home. He is not adverse to continuing this as long as it doesn't cost too much. He has not been compliant with his previously prescribed ozempic due to cost. No nursing concerns.---08/18/25Bo travis is resting in his recliner, awakens to my voice, is confused and transposes words throughout our conversation with notable difficulties word-finding. He denies pain or concerns at this time. VSS. Staff is without concerns beyond aforementioned confusion. Per therapy notes = failitated gait training with FWW for up to 110 ft increments with CGA wtih cues to slow gait speed for safety. cues for pursed lip breathing throughout as well.---08/21/25Botravis is seated in his recliner in his room, doing well, confused but pleasant and alert, noted to have self-removed his oxygen cannula. I assist him in replacing this -- he had not realized he had left it off. He is without concerns and reports pain is well-controlled. He does report he has not had a BM but is not able to tell me for how long. I have asked nursing to investigate this and add cathartics as appropriate per standing orders. VSS. Staff is without concerns at this time. Per therapy notes = Conducted gait training with FWW 125' CGA to SBA cues for keeping AD on the floor throughout turns. Decreased safety awareness. 49688: sit/stand SBA pvt transfer wc/recliner SBA cues for locking brakes.---08/23/25Botravis is resting in his recliner in his room, doing fairly well today. We discuss his pending discharge and his need to check his blood sugar so that he can dose his insulin appropriately. He does confirm he has a glucometer at home and knows how to use it, is not enthusiastic about having to check his blood sugar that often. I encourage her to f/u with PCP as they can continue to up-titrate his long-acting insulin so his insulin lispro can be stopped, but we do not have enough time here to do that. His son has filed an appeal with insurance but Chema says, what difference will a week really make? He tells me he thinks he will do fine at home. I discuss with him that the appeal would give his son more time to arrange in-home care for him, and Chema does admit it would be nice to have private duty nursing in his home for a few hours every day, especially to help with meals. VSS. Staff is without concerns beyond aforementioned. Therapy has performed oxygen test and SW is working on ordering home oxygen. Forms here for me to sign. Per therapy notes = Conducted gait training with FWW 125' CGA to SBA cues for keeping AD on the floor throughout turns. Decreased safety awareness. sit/stand SBA pvt transfer wc/recliner SBA cues for locking brakes.---08/24/25Botravis is seen returning from his physical therapy session, alert, self-transfers with standby assistance, alert, at baseline mental status, without concerns or complaints today. Both nursing and therapy have reported concerns that Chema appeared drowsy this morning, that he would nod off during his therapy session but then walk 150 feet. Nursing reports that he was slow to wake up and was confused, but this gradually improved. I discuss changing Chema's Trazodone to PRN but he does report he does not sleep well, although he attributes that to the arrival of a new suite-mate and staff coming in and out frequently to get them settled. Luckily insurance accepted his appeal so I discuss the plan to further reduce his insulin lispro in the hopes we can stop this before discharge, as it is clear pt will not be compliant with this. He expresses gratitude for this. VSS. He continues on 2-3L NC continuously. Staff is working on insulin & oxygen training. They are without concerns otherwise. Per therapy notes = facilitated gait training with FWW for up to 150 ft with cues for pursed lip breathing throughout with pt limited by SOB. SBA-CGA. Educated pt he should be using AD at all times due to pt in bathroom without AD or WC.---08/27/25Bob is seated in his recliner in his room, alert, mildly confused, but appears at baseline, without concerns or pain to report today. VSS. Blood sugars are improved. Will stop SSI today and continue to monitor. VSS. Staff is without concerns today. Per therapy notes = gait training with FWW with cues for pursed lip breathing throughout to reduce SOB and to avoid excessive trunk flexion when beginning to fatigue for up to 150 ft. Edita Riley, ANDR[address] [address] [place], [phone], [facility] [place] [facility] 08/27/2025 14:34:14 08/29/2025 text/html F/U surgical repair of ascending aortic aneurysm, aortic valve replacement, maze procedure, and SANAZ closure, acute hypoxemic respiratory failure, poorly-controlled DM-2 due to noncompliance, deconditioning/weakne ss, and chronic medical conditions.---08/15/25 Yash is wheeling himself around the facility this evening. He is a fair historian. Pain is controlled. He has notable edema which he feels is probably worse than usual. We talk about his newly prescribed insulin which he has not previously used at home. He is not adverse to continuing this as long as it doesn't cost too much. He has not been compliant with his previously prescribed ozempic due to cost. No nursing concerns.---08/18/25Bo travis is resting in his recliner, awakens to my voice, is confused and transposes words throughout our conversation with notable difficulties word-finding. He denies pain or concerns at this time. VSS. Staff is without concerns beyond aforementioned confusion. Per therapy notes = failitated gait training with FWW for up to 110 ft increments with CGA wtih cues to slow gait speed for safety. cues for pursed lip breathing throughout as well.---08/21/25Botravis is seated in his recliner in his room, doing well, confused but pleasant and alert, noted to have self-removed his oxygen cannula. I assist him in replacing this -- he had not realized he had left it off. He is without concerns and reports pain is well-controlled. He does report he has not had a BM but is not able to tell me for how long. I have asked nursing to investigate this and add cathartics as appropriate per standing orders. VSS. Staff is without concerns at this time. Per therapy notes = Conducted gait training with FWW 125' CGA to SBA cues for keeping AD on the floor throughout turns. Decreased safety awareness. 29663: sit/stand SBA pvt transfer wc/recliner SBA cues for locking brakes.---08/23/25Botravis is resting in his recliner in his room, doing fairly well today. We discuss his pending discharge and his need to check his blood sugar so that he can dose his insulin appropriately. He does confirm he has a glucometer at home and knows how to use it, is not enthusiastic about having to check his blood sugar that often. I encourage her to f/u with PCP as they can continue to up-titrate his long-acting insulin so his insulin lispro can be stopped, but we do not have enough time here to do that. His son has filed an appeal with insurance but Chema says, what difference will a week really make? He tells me he thinks he will do fine at home. I discuss with him that the appeal would give his son more time to arrange in-home care for him, and Chema does admit it would be nice to have private duty nursing in his home for a few hours every day, especially to help with meals. VSS. Staff is without concerns beyond aforementioned. Therapy has performed oxygen test and SW is working on ordering home oxygen. Forms here for me to sign. Per therapy notes = Conducted gait training with FWW 125' CGA to SBA cues for keeping AD on the floor throughout turns. Decreased safety awareness. sit/stand SBA pvt transfer wc/recliner SBA cues for locking brakes.---08/24/25Botravis is seen returning from his physical therapy session, alert, self-transfers with standby assistance, alert, at baseline mental status, without concerns or complaints today. Both nursing and therapy have reported concerns that Chema appeared drowsy this morning, that he would nod off during his therapy session but then walk 150 feet. Nursing reports that he was slow to wake up and was confused, but this gradually improved. I discuss changing Chema's Trazodone to PRN but he does report he does not sleep well, although he attributes that to the arrival of a new suite-mate and staff coming in and out frequently to get them settled. Luckily insurance accepted his appeal so I discuss the plan to further reduce his insulin lispro in the hopes we can stop this before discharge, as it is clear pt will not be compliant with this. He expresses gratitude for this. VSS. He continues on 2-3L NC continuously. Of note, nursing has called CTS' office through this week to make aware of concern for weight gain. Tensas back today with orders to restart Lasix 20 mg BID. Staff is working on insulin & oxygen training. They are otherwise without concerns. Per therapy notes = facilitated gait training with FWW for up to 150 ft with cues for pursed lip breathing throughout with pt limited by SOB. SBA-CGA. Educated pt he should be using AD at all times due to pt in bathroom without AD or WC.---08/27/25Botravis is seated in his recliner in his room, alert, mildly confused, but appears at baseline, without concerns or pain to report today. VSS. Blood sugars are improved. Will stop SSI today and continue to monitor. VSS. Staff is without concerns today. Per therapy notes = gait training with FWW with cues for pursed lip breathing throughout to reduce SOB and to avoid excessive trunk flexion when beginning to fatigue for up to 150 ft.---08/29/25Bob is fairing well today, alert, conversant, remains confused but at baseline. He continues on oxygen at 3-4 L NC. His weight continues to climb despite addition of Lasix by CTS on 08/24. Lymphedema is 3-4+. He is not able to accurately answer ROS symptoms but denies respiratory symptoms at present. VSS. Staff is without concerns today. To summarize my phone call with pt's son Orion on 08/27, we discussed the concern that Chema will likely not be able to meet his own care needs independently at home. Orion is aware of this concern but wants to give it an attempt anyway, as he says they thought this same thing the last time he was at our rehab but his father surprised him when he got home and was much more independent than he had let on when he was at our rehab. He is hoping to see this again. His brother Anthony will be staying with his dad for the first week of his discharge and Anthony & Orion have been looking at [facility] facilities for their father in case this does not go as well as they hope. I also discuss with him the adjustments made in his insulin regimen and our concern that the pt is snacking nearly non-stop at this facility and it is possible that he will not have the same access to food at his home, so his blood sugars might drop on the regimen we have him on. He expresses understanding and notes Anthony will be watching his blood sugars for that first week. Per therapy notes = Conducted gait training with [facility] 100' SBA cues for breathing technique Edita Riley, [address] [address] [place], [phone], [facility] [place] [facility] 08/29/2025 12:02:15 08/30/2025 text/html 80 Y/O male admitted to [facility] for post acute rehab subsequent to an inpatient stay at [facility] 07/30-08/14/2025 for surgical repair of an ascending aortic aneurysm. Per discharge summary:80 year old male with PMH of hypertension, type 2 diabetes, BPH, atrial fibrillation/RLE DVT on Xarelto, SBO s/p exploratory laparotomy with abdominal adhesiolysis in 12/2024, who has been evaluated by the cardiothoracic surgery clinic for evaluation of aortic aneurysm and recently had a visit on 07/19/25. He was admitted in December 2024 for abdominal pain, with noted small bowel obstruction on abdominal CT scan. He underwent exploratory laparotomy with abdominal adhesiolysis. At that time CT of abdomen also showed ascending aortic aneurysm measuring 5.6cm, descending thoracic aorta is mildly dilated to 3.1. He underwent dissection protocol CTA which showed ascending aortic aneurysm measuring up to 5.1 cm. His 04/25/25 echocardiogram showed EF of 58% and aortic valve with mild/moderate regurgitation. He underwent a fall in March 2025 while visiting his son in [place]. He then developed swelling in his left knee, and was admitted to [facility] in May 2025 for incision and drainage of the left knee, and placed on antibiotic therapy. He was scheduled for aortic aneurysm replacement with possible AVR with Dr. Zaman on 08/01/25.He was admitted today for Heparin bridge, carotid ultrasound and PFT prior to his planned OR on 08/01/25 for aortic aneurysm replacement and possible AVR with Dr. Zaman. He arrives in no acute distress. He denies chest pain, dyspnea, nausea, vomiting, or dizziness.Ms. Aguirre was taken to the operating room on 08/01/[address] Washington Zaman for:REPLACEMENT ANEURYSM ASCENDING AORTIC HEMIARCH-28MM GELWEAVE GRAFT (N/A)REPLACEMENT AORTIC VALVE- 29 mm AORTIC MAGNA EASE (N/A)MAZE PROCEDURE OPEN HEART - ENCOMPASS (N/A)CLIPPING ATRIAL APPENDAGE ATRICURE FLEX V 45MM (N/A)CLOSURE STERNAL - WITH PLATES- FIBERTAPE & KARLENE PLATING SYSTEM (N/A)Patient arrived to the ICU hemodynamically supported on NE at 0.6 and vaso at 0.04. He was orally intubated on full mechanical support and reported to be an easy airway. They received 1L albumin and 2L crystalloid intra-operatively. Post CPB AMNA showed normal biventricular function, no AI on no inotropes. When hemodynamically stable he was weaned from ventilatory and inotropic support.The patient was transferred to the stepdown unit in stable condition on 08/07. Post-op course notable for atrial fibrillation. He was started on bival and amiodarone infusions and eventually transitioned to Xarelto and oral amiodarone. Chest tubes were discontinued without difficulty and epicardial wires were cut at the skin prior to discharge. He remained in rate controlled atrial fibrillation but was protected with Xarelto, but fortunately converted to NSR on 06/12. He also still required low dose O2 during sleep and prn during the day. The patient progressed as expected. Aggressive physical therapy and pulmonary toilet were initiated, diet was advanced as tolerated, and wounds remained clean, dry and intact.Today he is ready for transfer to [facility] for further rehabilitation.Endocr terrell consulted during his hospitalization - recommended initiation of insulin to optimize control of his diabetes. New medications: tylenol, amiodarone, coreg, fenofibrate 145 mcg, glucagon, hydralazine, insulin degludec and insulin lispro, rosuvastatin, trazodoneStopped medications: peridex, clonidine, coenzyme Q10, fenofibrate 134 mcg, lisinopril/hctz, metformin, metoprolol, saw palmetto, simvastatin The patient is known to this service from a short rehab stay back in January of this year following a hospitalization at [facility] for a surgical small bowel obstruction. Code status is DNR.No POA - alternate contacts remain his sons or sister, Chel.PCP Ned Bethea.---08/15/25Rob ert is wheeling himself around the facility this evening. He is a fair historian. Pain is controlled. He has notable edema which he feels is probably worse than usual. We talk about his newly prescribed insulin which he has not previously used at home. He is not adverse to continuing this as long as it doesn't cost too much. He has not been compliant with his previously prescribed ozempic due to cost. No nursing concerns.---08/18/25Bo b is resting in his recliner, awakens to my voice, is confused and transposes words throughout our conversation with notable difficulties word-finding. He denies pain or concerns at this time. VSS. Staff is without concerns beyond aforementioned confusion. Per therapy notes = failitated gait training with FWW for up to 110 ft increments with CGA wtih cues to slow gait speed for safety. cues for pursed lip breathing throughout as well.---08/21/25Bob is seated in his recliner in his room, doing well, confused but pleasant and alert, noted to have self-removed his oxygen cannula. I assist him in replacing this -- he had not realized he had left it off. He is without concerns and reports pain is well-controlled. He does report he has not had a BM but is not able to tell me for how long. I have asked nursing to investigate this and add cathartics as appropriate per standing orders. VSS. Staff is without concerns at this time. Per therapy notes = Conducted gait training with FWW 125' CGA to SBA cues for keeping AD on the floor throughout turns. Decreased safety awareness. 56275: sit/stand SBA pvt transfer wc/recliner SBA cues for locking brakes.---08/23/25Botravis is resting in his recliner in his room, doing fairly well today. We discuss his pending discharge and his need to check his blood sugar so that he can dose his insulin appropriately. He does confirm he has a glucometer at home and knows how to use it, is not enthusiastic about having to check his blood sugar that often. I encourage her to f/u with PCP as they can continue to up-titrate his long-acting insulin so his insulin lispro can be stopped, but we do not have enough time here to do that. His son has filed an appeal with insurance but Chema says, what difference will a week really make? He tells me he thinks he will do fine at home. I discuss with him that the appeal would give his son more time to arrange in-home care for him, and Chema does admit it would be nice to have private duty nursing in his home for a few hours every day, especially to help with meals. VSS. Staff is without concerns beyond aforementioned. Therapy has performed oxygen test and SW is working on ordering home oxygen. Forms here for me to sign. Per therapy notes = Conducted gait training with FWW 125' CGA to SBA cues for keeping AD on the floor throughout turns. Decreased safety awareness. sit/stand SBA pvt transfer wc/recliner SBA cues for locking brakes.---08/24/25Botravis is seen returning from his physical therapy session, alert, self-transfers with standby assistance, alert, at baseline mental status, without concerns or complaints today. Both nursing and therapy have reported concerns that Chema appeared drowsy this morning, that he would nod off during his therapy session but then walk 150 feet. Nursing reports that he was slow to wake up and was confused, but this gradually improved. I discuss changing Chema's Trazodone to PRN but he does report he does not sleep well, although he attributes that to the arrival of a new suite-mate and staff coming in and out frequently to get them settled. Luckily insurance accepted his appeal so I discuss the plan to further reduce his insulin lispro in the hopes we can stop this before discharge, as it is clear pt will not be compliant with this. He expresses gratitude for this. VSS. He continues on 2-3L NC continuously. Of note, nursing has called CTS' office through this week to make aware of concern for weight gain. Tensas back today with orders to restart Lasix 20 mg BID. Staff is working on insulin & oxygen training. They are otherwise without concerns. Per therapy notes = facilitated gait training with FWW for up to 150 ft with cues for pursed lip breathing throughout with pt limited by SOB. SBA-CGA. Educated pt he should be using AD at all times due to pt in bathroom without AD or WC.---08/27/25Bob is seated in his recliner in his room, alert, mildly confused, but appears at baseline, without concerns or pain to report today. VSS. Blood sugars are improved. Will stop SSI today and continue to monitor. VSS. Staff is without concerns today. Per therapy notes = gait training with FWW with cues for pursed lip breathing throughout to reduce SOB and to avoid excessive trunk flexion when beginning to fatigue for up to 150 ft.---08/29/25Bob is fairing well today, alert, conversant, remains confused but at baseline. He continues on oxygen at 3-4 L NC. His weight continues to climb despite addition of Lasix by CTS on 08/24. Lymphedema is 3-4+. He is not able to accurately answer ROS symptoms but denies respiratory symptoms at present. VSS. Staff is without concerns today. To summarize my phone call with pt's son Orion on 08/27, we discussed the concern that Chema will likely not be able to meet his own care needs independently at home. Orion is aware of this concern but wants to give it an attempt anyway, as he says they thought this same thing the last time he was at our rehab but his father surprised him when he got home and was much more independent than he had let on when he was at our rehab. He is hoping to see this again. His brother Anthony will be staying with his dad for the first week of his discharge and Anthony & Orion have been looking at [facility] facilities for their father in case this does not go as well as they hope. I also discuss with him the adjustments made in his insulin regimen and our concern that the pt is snacking nearly non-stop at this facility and it is possible that he will not have the same access to food at his home, so his blood sugars might drop on the regimen we have him on. He expresses understanding and notes Anthony will be watching his blood sugars for that first week. Per therapy notes = Conducted gait training with FWW 100' SBA cues for breathing technique---08/30/25 ob is seated in his w/c in his room, initially sleeping but awakens to my voice. He is at baseline mental status/alertness, denies concerns or pain today. He will be discharging home on Wednesday with [facility] and family oversight -- his son Anthony will be staying with him for the first week. He continues on 2L NC at rest. Note, he did sat at 94% when at rest on RA but desatted to 85% with activity on RA. He improved to 89% during activity when O2 was applied at 2L. It took him 2 minutes on oxygen for recovery. 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 Continue to recommend pt establish with pulmonology for further titration and for a sleep study as have high suspicion pt has BHARATHI. Son is aware of recommendations. Otherwise he appears to be doing fairly well -- continues on increased Lasix dosing through 09/01, then will drop back to Lasix 20 mg BID on 09/02. Will need close monitoring of cardiorespiratory progress. Visit with Dr. Bethea PCP is set-up already and they have been in contact with our SW to clarify his actual discharge date so they can be ready. VSS. Staff is without concerns today. Per therapy notes = Pt ambulated 120 ft x 50 ft on level surfaces without O2, per nursing request. Patient O2 sats ranging from 85-90%. Reported to nursing. 2 min to recover with O2 back on. Edita Riley, ANDR[address]S [address] [facility], [place], [address], [place] - [facility] 08/30/2025 14:48:11
[2025-09-28 12:58] LABS: Iron 65 ug/dL (49-181)
[2025-09-28 13:07] LABS: Percent Iron Saturation 17 % (20-50)
[2025-09-28 13:15] LABS: Alanine Aminotransferase 22 U/L (6-50); Albumin Level 4.3 g/dL (3.5-5.1); Alkaline Phosphatase 27 U/L (38-126); Anion Gap 9 mmol/L (4-12); Aspartate Amino Transferase 33 U/L (17-59); Bilirubin,Total 0.5 mg/dL (0.2-1.3); Blood Urea Nitrogen 18 mg/dL (9-20); Calcium 9.1 mg/dL (8.4-10.2); Carbon Dioxide 27 mmol/L (22-30); Chloride 103 mmol/L (98-107); Cholesterol 85 mg/dL (0-200); Estimated Glomerular Filt Rate 47; Glucose 115 mg/dL (65-110); HDL Direct 33 mg/dL; Magnesium 1.7 mg/dL (1.6-2.3); Potassium 5.0 mmol/L (3.4-5.0); Sodium 139 mmol/L (137-145); Total Protein 8.0 g/dL (6.3-8.2); Triglycerides 89 mg/dL (<150)
[2025-09-28 13:20] LABS: Free T4 Free Thyroxine 0.83 ng/dL (0.78-2.19)
[2025-09-28 13:50] LABS: Thyroid Stimulating Hormone 10.900 uIU/mL (0.465-4.680)
[2025-09-28 14:07] LABS: Hemoglobin A1C 5.9 % (<5.7)
[2025-09-28 14:09] LABS: Vitamin B12 246.0 pg/mL (239-931)
[2025-09-28 15:11] LABS: MALB Creatinine Ratio 661.3 mg/g (0-30)
--- OUTSIDE RECORDS SUMMARY | 2025-11-21 18:00 | XMS_ITS | Clinical Summary ---
Author Organization Unknown Care Team Providers Care Manuscripts Archivist Name Role Phone NED BETHEA DO Unavailable Unavailable AZRA JAEGER RN Unavailable Unavailable Payers Payer Name Policy Type Policy Number Effective Date Expira tion Date [id number] Problems Condition Name Condition Details Condition Category Status Onset Date Resolution Date Last Treatment Date Treating Clinician Comments ESSENTIAL (PRIMARY) HYPERTENSION Active 2024-11 00:00: 00 Allergies, Adverse Reactions, Alerts Allergy Name Allergy Type Status Severity Reaction(s) Onset Date Inactive Date Treating Clinician Comments NO KNOWN ALLERGIES Propensity to adverse reactions Active 2024-11 10:27: 23 Vital Signs Vital Name Observation Time Observation Value Commen ts Temperature 2025-09-25 11:32:00.000 96.7 [degF] Temperature 2025-09-24 19:32:00.000 98.4 [degF] BMI (%) 2025-09-24 09:55:28.000 45 kg/m2 Height 2025-09-24 09:55:19.000 66 [in_us] Pulse 2025-09-25 11:32:00.000 72 /min Pulse 2025-09-24 19:32:00.000 65 /min O2 Saturation (%) 2025-09-25 11:32:00.000 97 % O2 Saturation (%) 2025-09-24 19:32:00.000 96 % Respirations 2025-09-25 11:32:00.000 20 /min Respirations 2025-09-24 19:32:00.000 20 /min Weight (lbs) 2025-09-24 09:55:28.000 280 [lb_av] Systolic Blood Pressure 2025-09-25 11:32:00.000 146 mm [Hg] Systolic Blood Pressure 2025-09-24 19:32:00.000 139 mm [Hg] Diastolic Blood Pressure 2025-09-25 11:32:00.000 70 mm [Hg] Diastolic Blood Pressure 2025-09-24 19:32:00.000 76 mm [Hg] Plan of Treatment Planned Activity Planned Date Details Comments Future Scheduled Test RN TO OBSE RVE, ASSESS, EVALUATE, AND DEVELOP AN INDIVIDUALIZED PLAN OF CARE. AGENCY MAY ACCEPT ORDERS FROM CONSULTING PHYSICIANS RN TO OBSERVE AND ASSESS, ER REGISTRAR/JOB SPOTTER TO OBSERVE FOR RISK FOR FALLS AND INSTRUCT IN FALL PREVENTION, HOME SAFETY, MEDICATION MANAGEMENT, INFECTION PREVENTION, AND NUTRITION MANAGEMENT. RN/ER REGISTRAR/JOB SPOTTER NURSE MAY PERFORM O2 SATURATION LEVEL ON ADMISSION AND PRN FOR 1 VISIT RN TO ASSESS/ER REGISTRAR TO OBSERVE PATIENT, WITH NOTIFICATION TO THE PHYSICIAN IF SATURATION IS 90% IN THE ABSENCE OF MORE SPECIFIC PARAMETERS FROM THE PHYSICIAN. AGENCY MAY PERFORM A RESUMPTION OF CARE VISIT FOLLOWING ANY HOSPITAL ADMISSION. RN/ER REGISTRAR/JOB SPOTTER TO MONITOR CO-MORBID CONDITIONS LISTED ON THE PLAN OF CARE AND ANY NEW CONDITIONS THAT PRESENT THEMSELVES DURING THIS EPISODE TO IDENTIFY CHANGES AND INTERVENE TO MINIMIZE COMPLICATIONS. [code = RN TO OBSERVE, ASSESS, EVALUATE, AND DEVELOP AN INDIVIDUALIZED PLAN OF CARE. AGENCY MAY ACCEPT ORDERS FROM CONSULTING PHYSICIANS RN TO OBSERVE AND ASSESS, ER REGISTRAR/JOB SPOTTER TO OBSERVE FOR RISK FOR FALLS AND INSTRUCT IN FALL PREVENTION, HOME SAFETY, MEDICATION MANAGEMENT, INFECTION PREVENTION, AND NUTRITION MANAGEMENT. RN/ER REGISTRAR/JOB SPOTTER NURSE MAY PERFORM O2 SATURATION LEVEL ON ADMISSION AND PRN FOR 1 VISIT RN TO ASSESS/ER REGISTRAR TO OBSERVE PATIENT, WITH NOTIFICATION TO THE PHYSICIAN IF SATURATION IS 90% IN THE ABSENCE OF MORE SPECIFIC PARAMETERS FROM THE PHYSICIAN. AGENCY MAY PERFORM A RESUMPTION OF CARE VISIT FOLLOWING ANY HOSPITAL ADMISSION. RN/ER REGISTRAR/JOB SPOTTER TO MONITOR CO-MORBID CONDITIONS LISTED ON THE PLAN OF CARE AND ANY NEW CONDITIONS THAT PRESENT THEMSELVES DURING THIS EPISODE TO IDENTIFY CHANGES AND INTERVENE TO MINIMIZE COMPLICATIONS.] Future Scheduled Test MEDICATION MANAGEMENT; RN/ER REGISTRAR/JOB SPOTTER TO REVIEW MEDICATIONS FOR INTERACTIONS, EFFECTIVENESS OF DRUG THERAPY, AND SIGNS/SYMPTOMS OF ADVERSE REACTIONS. MAY INSTRUCT AND REINFORCE MEDICATION TEACHING RELATED TO THE USE OF MEDICATIONS, DOSAGE, FREQUENCY, PURPOSE, SIDE EFFECTS, AND TO REPORT COMPLICATIONS. [code = MEDICATION MANAGEMENT; RN/ER REGISTRAR/JOB SPOTTER TO REVIEW MEDICATIONS FOR INTERACTIONS, EFFECTIVENESS OF DRUG THERAPY, AND SIGNS/SYMPTOMS OF ADVERSE REACTIONS. MAY INSTRUCT AND REINFORCE MEDICATION TEACHING RELATED TO THE USE OF MEDICATIONS, DOSAGE, FREQUENCY, PURPOSE, SIDE EFFECTS, AND TO REPORT COMPLICATIONS.] Future Scheduled Test RISK FOR H OSPITALIZATION; RN TO ASSESS/TEACH, JOB SPOTTER/ER REGISTRAR TO OBSERVE/TEACH PATIENT/CAREGIVER ON RISK FOR HOSPITALIZATION/EMERGENCY ROOM VISITS, TEACH SIGNS AND SYMPTOMS THAT PUT PATIENT AT RISK, WHEN TO NOTIFY NURSE/PHYSICIAN OF COMPLICATIONS/DECLINE, AND WHEN TO CALL 911. [code = RISK FOR HOSPITALIZATION; RN TO ASSESS/TEACH, JOB SPOTTER/ER REGISTRAR TO OBSERVE/TEACH PATIENT/CAREGIVER ON RISK FOR HOSPITALIZATION/EMERGENCY ROOM VISITS, TEACH SIGNS AND SYMPTOMS THAT PUT PATIENT AT RISK, WHEN TO NOTIFY NURSE/PHYSICIAN OF COMPLICATIONS/DECLINE, AND WHEN TO CALL 911.] Future Scheduled Test CARDIOVASC ULAR SYSTEM; RN TO ASSESS/TEACH, ER REGISTRAR/JOB SPOTTER TO OBSERVE/TEACH RELATED TO ALTERED CARDIOVASCULAR STATUS TO MINIMIZE COMPLICATIONS AND REDUCE HOSPITALIZATION. [code = CARDIOVASCULAR SYSTEM; RN TO ASSESS/TEACH, ER REGISTRAR/JOB SPOTTER TO OBSERVE/TEACH RELATED TO ALTERED CARDIOVASCULAR STATUS TO MINIMIZE COMPLICATIONS AND REDUCE HOSPITALIZATION.] Future Scheduled Test HYPERTENSI ON MANAGEMENT; RN TO ASSESS AND TEACH, ER REGISTRAR/JOB SPOTTER TO OBSERVE AND TEACH WARNING SIGNS AND SYMPTOMS TO AVOID HOSPITALIZATION. [code = HYPERTENSION MANAGEMENT; RN TO ASSESS AND TEACH, ER REGISTRAR/JOB SPOTTER TO OBSERVE AND TEACH WARNING SIGNS AND SYMPTOMS TO AVOID HOSPITALIZATION.] Future Scheduled Test ARRHYTHMIA MANAGEMENT; RN TO ASSESS AND TEACH, ER REGISTRAR/JOB SPOTTER TO OBSERVE AND TEACH WARNING SIGNS AND SYMPTOMS TO AVOID HOSPITALIZATION. [code = ARRHYTHMIA MANAGEMENT; RN TO ASSESS AND TEACH, ER REGISTRAR/JOB SPOTTER TO OBSERVE AND TEACH WARNING SIGNS AND SYMPTOMS TO AVOID HOSPITALIZATION.] Future Scheduled Test HEART FAIL URE; RN TO ASSESS/TEACH, ER REGISTRAR/JOB SPOTTER TO OBSERVE/TEACH CARDIOPULMONARY SYSTEM TO IDENTIFY SIGNS OF DECOMPENSATION AND INTERVENE TO MINIMIZE THE SEVERITY OF FLUID OVERLOAD. OBSERVE PATIENT ABILITY TO MONITOR AND RECORD DAILY WEIGHTS AND VITAL SIGNS, INCLUDING PULSE AND BLOOD PRESSURE; RECORD PATIENT REPORTED WEIGHT, OR WEIGH PATIENT NEEDED. REPORT INCREASED EDEMA OR WEIGHT GAIN OF >2 LBS IN 1 DAY OR >5 LBS IN 1 WEEK OR 5LBS OR MORE OVER TARGET WEIGHT. MAY MEASURE ABDOMINAL GIRTH IF UNABLE TO WEIGH. SCALES AND BP MONITOR TO BE PROVIDED IF NEEDED. [code = HEART FAILURE; RN TO ASSESS/TEACH, ER REGISTRAR/JOB SPOTTER TO OBSERVE/TEACH CARDIOPULMONARY SYSTEM TO IDENTIFY SIGNS OF DECOMPENSATION AND INTERVENE TO MINIMIZE THE SEVERITY OF FLUID OVERLOAD. OBSERVE PATIENT ABILITY TO MONITOR AND RECORD DAILY WEIGHTS AND VITAL SIGNS, INCLUDING PULSE AND BLOOD PRESSURE; RECORD PATIENT REPORTED WEIGHT, OR WEIGH PATIENT NEEDED. REPORT INCREASED EDEMA OR WEIGHT GAIN OF >2 LBS IN 1 DAY OR >5 LBS IN 1 WEEK OR 5LBS OR MORE OVER TARGET WEIGHT. MAY MEASURE ABDOMINAL GIRTH IF UNABLE TO WEIGH. SCALES AND BP MONITOR TO BE PROVIDED IF NEEDED.] Future Scheduled Test RESPIRATOR Y SYSTEM MANAGEMENT; RN TO ASSESS AND TEACH, ER REGISTRAR/JOB SPOTTER TO OBSERVE AND TEACH RELATED TO ALTERED RESPIRATORY STATUS TO MINIMIZE COMPLICATIONS AND REDUCE HOSPITALIZATION. [code = RESPIRATORY SYSTEM MANAGEMENT; RN TO ASSESS AND TEACH, ER REGISTRAR/JOB SPOTTER TO OBSERVE AND TEACH RELATED TO ALTERED RESPIRATORY STATUS TO MINIMIZE COMPLICATIONS AND REDUCE HOSPITALIZATION.] Future Scheduled Test COPD MANAG EMENT; RN TO ASSESS AND TEACH, ER REGISTRAR/JOB SPOTTER TO OBSERVE AND TEACH SIGNS/SYMPTOMS OF COPD EXACERBATION AND PROVIDE EARLY INTERVENTIONS TO MINIMIZE RISK OF HOSPITALIZATION. RN/ER REGISTRAR/JOB SPOTTER TO INSTRUCT ON SELF-CARE MANAGEMENT INCLUDING BREATHING TECHNIQUES, AIRWAY CLEARANCE, AND PROPER USE OF COPD MEDICATIONS. RN TO ASSESS AND TEACH, ER REGISTRAR/JOB SPOTTER TO OBSERVE AND TEACH PATIENT/CAREGIVER ABILITY TO MONITOR AND RECORD VITAL SIGNS INCLUDING PULSE OXIMETRY AND BLOOD PRESSURE. PULSE OXIMETER AND BP MONITOR TO BE PROVIDED IF NEEDED / ORDERED [code = COPD MANAGEMENT; RN TO ASSESS AND TEACH, ER REGISTRAR/JOB SPOTTER TO OBSERVE AND TEACH SIGNS/SYMPTOMS OF COPD EXACERBATION AND PROVIDE EARLY INTERVENTIONS TO MINIMIZE RISK OF HOSPITALIZATION. RN/ER REGISTRAR/JOB SPOTTER TO INSTRUCT ON SELF-CARE MANAGEMENT INCLUDING BREATHING TECHNIQUES, AIRWAY CLEARANCE, AND PROPER USE OF COPD MEDICATIONS. RN TO ASSESS AND TEACH, ER REGISTRAR/JOB SPOTTER TO OBSERVE AND TEACH PATIENT/CAREGIVER ABILITY TO MONITOR AND RECORD VITAL SIGNS INCLUDING PULSE OXIMETRY AND BLOOD PRESSURE. PULSE OXIMETER AND BP MONITOR TO BE PROVIDED IF NEEDED / ORDERED] Future Scheduled Test PAIN MANAG EMENT; RN TO ASSESS AND TEACH, JOB SPOTTER/ER REGISTRAR TO OBSERVE AND TEACH AND PROVIDE EDUCATION ON PAIN MANAGEMENT TECHNIQUES. [code = PAIN MANAGEMENT; RN TO ASSESS AND TEACH, JOB SPOTTER/ER REGISTRAR TO OBSERVE AND TEACH AND PROVIDE EDUCATION ON PAIN MANAGEMENT TECHNIQUES.] Future Scheduled Test DIABETES M ANAGEMENT; RN TO ASSESS AND TEACH, JOB SPOTTER/ER REGISTRAR TO OBSERVE AND TEACH INSTRUCTIONS OF DIABETIC CARE TO INCLUDE: DIET ADA SKIN CARE, SIGNS AND SYMPTOMS OF HYPO/HYPERGLYCEMIA, PROPER ADMINISTRATION OF DIABETIC MEDICATION. RN/JOB SPOTTER/ER REGISTRAR TO INSTRUCT ON DIABETIC FOOT CARE AND MONITOR FOR SKIN LESIONS ON LOWER EXTREMITIES. BLOOD GLUCOSE TESTING PRN FREQ. RN TO ASSESS AND TEACH, JOB SPOTTER/ER REGISTRAR TO OBSERVE AND TEACH PATIENT/CAREGIVER ABILITY TO PERFORM AND RECORD BLOOD GLUCOSE TESTING ORDERED AND TO REPORT ABNORMAL FINDINGS TO PHYSICIAN. RN/JOB SPOTTER/ER REGISTRAR MAY PERFORM BLOOD GLUCOSE TEST NEEDED. RN/JOB SPOTTER/ER REGISTRAR TO REPORT TO PHYSICIAN BLOOD GLUCOSE READINGS GREATER THAN 300 OR LESS THAN 70 RN/JOB SPOTTER/ER REGISTRAR TO INSTRUCT PATIENT ON IMPORTANCE OF HGBA1C MONITORING, KIDNEY FUNCTION TEST, EYE AND FOOT EXAMS. [code = DIABETES MANAGEMENT; RN TO ASSESS AND TEACH, JOB SPOTTER/ER REGISTRAR TO OBSERVE AND TEACH INSTRUCTIONS OF DIABETIC CARE TO INCLUDE: DIET ADA SKIN CARE, SIGNS AND SYMPTOMS OF HYPO/HYPERGLYCEMIA, PROPER ADMINISTRATION OF DIABETIC MEDICATION. RN/JOB SPOTTER/ER REGISTRAR TO INSTRUCT ON DIABETIC FOOT CARE AND MONITOR FOR SKIN LESIONS ON LOWER EXTREMITIES. BLOOD GLUCOSE TESTING PRN FREQ. RN TO ASSESS AND TEACH, JOB SPOTTER/ER REGISTRAR TO OBSERVE AND TEACH PATIENT/CAREGIVER ABILITY TO PERFORM AND RECORD BLOOD GLUCOSE TESTING ORDERED AND TO REPORT ABNORMAL FINDINGS TO PHYSICIAN. RN/JOB SPOTTER/ER REGISTRAR MAY PERFORM BLOOD GLUCOSE TEST NEEDED. RN/JOB SPOTTER/ER REGISTRAR TO REPORT TO PHYSICIAN BLOOD GLUCOSE READINGS GREATER THAN 300 OR LESS THAN 70 RN/JOB SPOTTER/ER REGISTRAR TO INSTRUCT PATIENT ON IMPORTANCE OF HGBA1C MONITORING, KIDNEY FUNCTION TEST, EYE AND FOOT EXAMS.] Future Scheduled Test GENITOURIN ALONSO MANAGEMENT; RN TO ASSESS AND TEACH, ER REGISTRAR/JOB SPOTTER TO OBSERVE AND TEACH RELATED TO ALTERED GENITOURINARY STATUS TO MINIMIZE COMPLICATIONS AND REDUCE HOSPITALIZATION. [code = GENITOURINARY MANAGEMENT; RN TO ASSESS AND TEACH, ER REGISTRAR/JOB SPOTTER TO OBSERVE AND TEACH RELATED TO ALTERED GENITOURINARY STATUS TO MINIMIZE COMPLICATIONS AND REDUCE HOSPITALIZATION.] Future Scheduled Test URINARY MO LECULAR TESTING PROTOCOL UP TO 2 PRN RN/ER REGISTRAR/JOB SPOTTER VISITS MAY BE PERFORMED FOR S/S OF UTI. RN TO ASSESS, ER REGISTRAR/JOB SPOTTER TO OBSERVE INITIATION OF UTI PROTOCOL. RN/JOB SPOTTER/ER REGISTRAR TO INSTRUCT PATIENT AND/OR CAREGIVER ON S/S OF UTI TO REPORT TO RN/JOB SPOTTER/ER REGISTRAR IF NEW OR WORSENING SYMPTOMS. DRINK PLENTY OF WATER THROUGHOUT THE DAY TO MAINTAIN HYDRATION (UNLESS CONTRAINDICATED.) URINATE WHEN THE URGE IS FELT, DO NOT WAIT. WASH GENITALS DAILY. WIPE FROM FRONT TO BACK AFTER HAVING A BOWEL MOVEMENT. RN/JOB SPOTTER/ER REGISTRAR TO OBTAIN URINE SPECIMEN FOR MOLECULAR URINE TESTING BY OPTION 1 OR OPTION 2 (OPTION 1) RN/JOB SPOTTER/ER REGISTRAR TO OBTAIN URINE SPECIMEN FOR U/A WITH REFLEX TO UTI PANEL (MOLECULAR) VIA CLEAN CATCH URINE AND IF UNABLE TO OBTAIN MAY PERFORM AN IN AND OUT CATH. IF PATIENT HAS INDWELLING CATHETER MAY OBTAIN FROM SAMPLING PORT. (OPTION 2) RN/JOB SPOTTER/ER REGISTRAR TO OBTAIN URINE SPECIMEN FOR UTI PANEL (MOLECULAR) VIA SWAB COLLECTION METHOD FROM ADULT BRIEF/DIAPER OR PAD IF PATIENT IS INCONTINENT. INCLUDE ANTIBIOTIC/ANTIFUNGAL RESISTANCE TESTING INCLUDE URINALYSIS (ONLY FOR CLEAN CATCH/ IN AND OUT CATH) NOTIFY PROVIDER OF RESULTS AND OBTAIN FURTHER ORDERS. [code = URINARY MOLECULAR TESTING PROTOCOL UP TO 2 PRN RN/ER REGISTRAR/JOB SPOTTER VISITS MAY BE PERFORMED FOR S/S OF UTI. RN TO ASSESS, ER REGISTRAR/JOB SPOTTER TO OBSERVE INITIATION OF UTI PROTOCOL. RN/JOB SPOTTER/ER REGISTRAR TO INSTRUCT PATIENT AND/OR CAREGIVER ON S/S OF UTI TO REPORT TO RN/JOB SPOTTER/ER REGISTRAR IF NEW OR WORSENING SYMPTOMS. DRINK PLENTY OF WATER THROUGHOUT THE DAY TO MAINTAIN HYDRATION (UNLESS CONTRAINDICATED.) URINATE WHEN THE URGE IS FELT, DO NOT WAIT. WASH GENITALS DAILY. WIPE FROM FRONT TO BACK AFTER HAVING A BOWEL MOVEMENT. RN/JOB SPOTTER/ER REGISTRAR TO OBTAIN URINE SPECIMEN FOR MOLECULAR URINE TESTING BY OPTION 1 OR OPTION 2 (OPTION 1) RN/JOB SPOTTER/ER REGISTRAR TO OBTAIN URINE SPECIMEN FOR U/A WITH REFLEX TO UTI PANEL (MOLECULAR) VIA CLEAN CATCH URINE AND IF UNABLE TO OBTAIN MAY PERFORM AN IN AND OUT CATH. IF PATIENT HAS INDWELLING CATHETER MAY OBTAIN FROM SAMPLING PORT. (OPTION 2) RN/JOB SPOTTER/ER REGISTRAR TO OBTAIN URINE SPECIMEN FOR UTI PANEL (MOLECULAR) VIA SWAB COLLECTION METHOD FROM ADULT BRIEF/DIAPER OR PAD IF PATIENT IS INCONTINENT. INCLUDE ANTIBIOTIC/ANTIFUNGAL RESISTANCE TESTING INCLUDE URINALYSIS (ONLY FOR CLEAN CATCH/ IN AND OUT CATH) NOTIFY PROVIDER OF RESULTS AND OBTAIN FURTHER ORDERS.] Future Scheduled Test FALL REDUC TION MANAGEMENT; RN TO ASSESS AND OBSERVE, ER REGISTRAR/JOB SPOTTER TO OBSERVE FALL RISK FACTORS AND EDUCATE PATIENT/CAREGIVER ON STRATEGIES TO MINIMIZE THE RISK OF FALLING. [code = FALL REDUCTION MANAGEMENT; RN TO ASSESS AND OBSERVE, ER REGISTRAR/JOB SPOTTER TO OBSERVE FALL RISK FACTORS AND EDUCATE PATIENT/CAREGIVER ON STRATEGIES TO MINIMIZE THE RISK OF FALLING.] Future Scheduled Test PHYSICAL T HERAPIST TO EVALUATE FOR STRENGTHENING AND BALANCE ... [code = PHYSICAL THERAPIST TO EVALUATE FOR STRENGTHENING AND BALANCE ...] Future Scheduled Test OCCUPATION AL THERAPIST TO EVALUATE FOR FINE MOTOR SKILLS ADLS AND SAFE ENVIRONMENT ... [code = OCCUPATIONAL THERAPIST TO EVALUATE FOR FINE MOTOR SKILLS ADLS AND SAFE ENVIRONMENT ...] Future Scheduled Test PRN VISITS ; NUMBER OF RN/ER REGISTRAR/JOB SPOTTER VISITS: 1 RN/ER REGISTRAR/JOB SPOTTER TO PERFORM: ASSESSMENT FOR THE FOLLOWING REASONS: CARDIAC COMPLICATIONS [code = PRN VISITS; NUMBER OF RN/ER REGISTRAR/JOB SPOTTER VISITS: 1 RN/ER REGISTRAR/JOB SPOTTER TO PERFORM: ASSESSMENT FOR THE FOLLOWING REASONS: CARDIAC COMPLICATIONS] Future Scheduled Test CANCER MAN AGEMENT; RN TO ASSESS AND TEACH, JOB SPOTTER/ER REGISTRAR TO OBSERVE AND TEACH AND PROVIDE EDUCATION ON CANCER. [code = CANCER MANAGEMENT; RN TO ASSESS AND TEACH, JOB SPOTTER/ER REGISTRAR TO OBSERVE AND TEACH AND PROVIDE EDUCATION ON CANCER.] Future Scheduled Test PHYSICAL T HERAPY EVALUATION PERFORMED. NO ADDITIONAL VISITS REQUIRED. PROVIDED SKILLED INTERVENTION INCLUDING ASSESSING VITAL SIGNS, STRENGTH, BALANCE, TRANSFERS, AND AMBULATION. ... [code = PHYSICAL THERAPY EVALUATION PERFORMED. NO ADDITIONAL VISITS REQUIRED. PROVIDED SKILLED INTERVENTION INCLUDING ASSESSING VITAL SIGNS, STRENGTH, BALANCE, TRANSFERS, AND AMBULATION. ...] Goal Patient Goal - FEEL BETTER, STRONGER Goal Provider Goal - A PLAN OF CARE WILL BE ESTABLISHED THAT MEETS THE PATIENT S NEEDS. PATIENT WILL DEMONSTRATE OXYGEN SATURATION WITHIN NORMAL LIMITS OR PATIENT S OPTIMAL LEVEL ESTABLISHED BY THE PHYSICIAN THROUGHOUT CARE. CHANGES TO CO-MORBID CONDITIONS AND ANY NEW CONDITIONS WILL BE IDENTIFIED AND REPORTED TO THE PHYSICIAN. Goal Provider Goal - PATIENT/CAREGIVER TO VERBALIZE, AND CONSISTENTLY DEMONSTRATE EFFECTIVE, SAFE MANAGEMENT OF MEDICATION INCLUDING KNOWLEDGE OF EFFECTIVENESS, POTENTIAL SIDE EFFECTS AND DRUG REACTIONS AND WHEN TO CONTACT THE APPROPRIATE CARE PROVIDER. PATIENT/CAREGIVER WILL BE ABLE TO VERBALIZE UNDERSTANDING OF MEDICATION REGIMEN AND ACCURATELY TAKE MEDICATIONS PRESCRIBED WITHOUT ADVERSE EFFECTS BY EOE Goal Provider Goal - PATIENT/CAREGIVER WILL VERBALIZE UNDERSTANDING OF SIGNS AND SYMPTOMS THAT PUT THE PATIENT AT RISK FOR HOSPITALIZATION /EMERGENCY ROOM VISITS, WHEN TO NOTIFY NURSE/PHYSICIAN OF COMPLICATIONS/DECLINE AND WHEN TO CALL 911. Goal Provider Goal - PATIENT / CAREGIVER WILL VERBALIZE/DEMONSTRATE UNDERSTANDING OF MEASURES TO MANAGE ALTERED CARDIOVASCULAR STATUS BY EOE Goal Provider Goal - PATIENT / CAREGIVER WILL VERBALIZE/DEMONSTRATE AN ABILITY TO ADHERE TO SELF-MANAGEMENT OF HTN TO MINIMIZE COMPLICATIONS AND AVOID HOSPITALIZATION BY END OF EPISODE. Goal Provider Goal - PATIENT / CAREGIVER WILL VERBALIZE/DEMONSTRATE AN ABILITY TO ADHERE TO SELF-MANAGEMENT OF HEART ARRHYTHMIA TO MINIMIZE COMPLICATIONS AND AVOID HOSPITALIZATION BY END OF EPISODE. Goal Provider Goal - PATIENT / CAREGIVER WILL VERBALIZE/DEMONSTRATE AN ABILITY TO ADHERE TO SELF-MANAGEMENT OF HF TO MINIMIZE COMPLICATIONS AND AVOID HOSPITALIZATION BY END OF EPISODE. Goal Provider Goal - PATIENT / CAREGIVER WILL VERBALIZE/DEMONSTRATE UNDERSTANDING OF MEASURES TO MANAGE ALTERED RESPIRATORY STATUS BY END OF EPISODE. Goal Provider Goal - PATIENT / CAREGIVER WILL VERBALIZE/DEMONSTRATE AN ABILITY TO ADHERE TO SELF-MANAGEMENT OF COPD TO MINIMIZE COMPLICATIONS AND AVOID HOSPITALIZATION BY END OF EPISODE. Goal Provider Goal - PATIENT / CAREGIVER WILL VERBALIZE / DEMONSTRATE UNDERSTANDING OF PAIN CONTROL MEASURES BY EOE Goal Provider Goal - PATIENT / CAREGIVER WILL VERBALIZE / DEMONSTRATE AN ABILITY TO ADHERE TO SELF-MANAGEMENT OF DIABETES MANAGEMENT BY EOE Goal Provider Goal - PATIENT / CAREGIVER WILL VERBALIZE/DEMONSTRATE UNDERSTANDING OF MEASURES TO MANAGE ALTERED GENITOURINARY STATUS BY END OF EPISODE. Goal Provider Goal - PATIENT WILL DEMONSTRATE IMPROVEMENT IN S/S OF UTI TO AVOID HOSPITALIZATION. Goal Provider Goal - PATIENT/CAREGIVER WILL VERBALIZE/DEMONSTRATE UNDERSTANDING OF FALL RISK FACTORS AND IMPLEMENT STRATEGIES TO MINIMIZE FALL RISK. PATIENT/CAREGIVER WILL VERBALIZE/DEMONSTRATE AN ABILITY TO ADHERE TO FALL REDUCTION SELF-MANAGEMENT AND LIFE-STYLE CHANGES BY EOE Goal Provider Goal - Goal Provider Goal - Goal Provider Goal - Goal Provider Goal - PATIENT / CAREGIVER WILL VERBALIZE/DEMONSTRATE UNDERSTANDING OF MEASURES TO MINIMIZE COMPLICATIONS AND REDUCE HOSPITALIZATION RELATED TO CANCER BY END OF EPISODE. Goal Provider Goal - PATIENT / CAREGIVER WITHIN 1 VISIT WILL BE ABLE TO VERBALIZE / DEMONSTRATE UNDERSTANDING OF SAFE INDEPENDENT AMBULATION AND PROGRESSION OF ACTIVITY TOLERANCE ... Progress Notes Progress Notes <paragraph>[Visit Date: 2024 by LEROY MOSES PT]:</paragraph><paragraph>PROVIDED CARE: PATIENT IS AN 80-YEAR-OLD MALE WHO WAS RECENTLY HOSPITALIZED AFTER HAVING AN AAA REPAIR FOLLOWED BY [facility] FOLLOWED BY RETURNING HOME FOR 2 DAYS AND THEN GOING BACK TO THE HOSPITAL DUE TO DECREASED RESPONSIVENESS. HE HAS A PAST MEDICAL HISTORY SIGNIFICANT FOR HYPERTENSION, DIABETES, BPH, AND AFIB. HE LIVES ALONE ON THE MAIN LEVEL OF A 2 LEVEL HOME WITH 3 STEPS IN A HANDRAIL TO ENTER. HIS PRIOR LEVEL OF FUNCTION WAS INDEPENDENT WITHOUT A DEVICE.</paragraph><paragraph></paragraph><paragraph>PATIENT SCORED 28/28 ON THE TINETTI GAIT AND BALANCE ASSESSMENT. HE COMPLETED THE 5XSTESN 17 SECONDS. HE IS AMBULATING INDEPENDENTLY WITHOUT A DEVICE OVER LEVEL AND UNLEVEL SURFACES WELL UP AND DOWN 3 STEPS WITH A HANDRAIL. HE DOES FATIGUE BUT RECOVERS QUICKLY AND OXYGEN SATURATIONS REMAINED ABOVE 90% ON ROOM AIR. PATIENT INSTRUCTED TO AMBULATE THROUGHOUT HIS HOME 2-3 TIMES EACH DAY IN ORDER TO BUILD ACTIVITY TOLERANCE. NO SKILLED NEED IDENTIFIED AT THIS TIME WILL DISCHARGE FROM PHYSICAL THERAPY</paragraph> Encounters Start Date/Time End Date/Time Encounter Type Admission Type Attending [facility] Care Department Encounter ID Discharge Date Discharge Status Discharge Condition Discharge Reason Percent Goals Met 2025-09-24 00:00:00 2025-11-22 00:00:00 Outpatient NEW ADMISSION [facility] [id number] 80.00
--- OUTSIDE RECORDS SUMMARY | 2025-11-21 18:00 | XMS_ITS | Clinical Summary ---
Author Organization Unknown Care Team Providers Care Ornamental Painter Name Role Phone NED BETHEA DO Unavailable Unavailable AZRA JAEGER RN Unavailable Unavailable Payers Payer Name Policy Type Policy Number Effective Date Expira tion Date [id number] Problems Condition Name Condition Details Condition Category [...] CONSULTING PHYSICIANS RN TO OBSERVE AND ASSESS, GAS PROVER/MANAGEMENT TECH TO OBSERVE FOR RISK FOR FALLS AND INSTRUCT IN FALL PREVENTION, HOME SAFETY, MEDICATION MANAGEMENT, INFECTION PREVENTION, AND NUTRITION MANAGEMENT. RN/GAS PROVER/MANAGEMENT TECH NURSE MAY PERFORM O2 SATURATION LEVEL ON ADMISSION AND PRN FOR 1 VISIT RN TO ASSESS/GAS PROVER TO OBSERVE PATIENT, WITH NOTIFICATION TO THE PHYSICIAN IF SATURATION IS 90% IN THE ABSENCE OF MORE SPECIFIC PARAMETERS FROM THE PHYSICIAN. AGENCY MAY PERFORM A RESUMPTION OF CARE VISIT FOLLOWING ANY HOSPITAL ADMISSION. RN/GAS PROVER/MANAGEMENT TECH TO MONITOR CO-MORBID CONDITIONS LISTED ON THE PLAN OF CARE AND ANY NEW CONDITIONS THAT PRESENT THEMSELVES DURING THIS EPISODE TO IDENTIFY CHANGES AND INTERVENE TO MINIMIZE COMPLICATIONS. [code = RN TO OBSERVE, ASSESS, EVALUATE, AND DEVELOP AN INDIVIDUALIZED PLAN OF CARE. AGENCY MAY ACCEPT ORDERS FROM CONSULTING PHYSICIANS RN TO OBSERVE AND ASSESS, GAS PROVER/MANAGEMENT TECH TO OBSERVE FOR RISK FOR FALLS AND INSTRUCT IN FALL PREVENTION, HOME SAFETY, MEDICATION MANAGEMENT, INFECTION PREVENTION, AND NUTRITION MANAGEMENT. RN/GAS PROVER/MANAGEMENT TECH NURSE MAY PERFORM O2 SATURATION LEVEL ON ADMISSION AND PRN FOR 1 VISIT RN TO ASSESS/GAS PROVER TO OBSERVE PATIENT, WITH NOTIFICATION TO THE PHYSICIAN IF SATURATION IS 90% IN THE ABSENCE OF MORE SPECIFIC PARAMETERS FROM THE PHYSICIAN. AGENCY MAY PERFORM A RESUMPTION OF CARE VISIT FOLLOWING ANY HOSPITAL ADMISSION. RN/GAS PROVER/MANAGEMENT TECH TO MONITOR CO-MORBID CONDITIONS LISTED ON THE PLAN OF CARE AND ANY NEW CONDITIONS THAT PRESENT THEMSELVES DURING THIS EPISODE TO IDENTIFY CHANGES AND INTERVENE TO MINIMIZE COMPLICATIONS.] Future Scheduled Test MEDICATION MANAGEMENT; RN/GAS PROVER/MANAGEMENT TECH TO REVIEW MEDICATIONS FOR INTERACTIONS, EFFECTIVENESS OF DRUG THERAPY, AND SIGNS/SYMPTOMS OF ADVERSE REACTIONS. MAY INSTRUCT AND REINFORCE MEDICATION TEACHING RELATED TO THE USE OF MEDICATIONS, DOSAGE, FREQUENCY, PURPOSE, SIDE EFFECTS, AND TO REPORT COMPLICATIONS. [code = MEDICATION MANAGEMENT; RN/GAS PROVER/MANAGEMENT TECH TO REVIEW MEDICATIONS FOR INTERACTIONS, EFFECTIVENESS OF DRUG THERAPY, AND SIGNS/SYMPTOMS OF ADVERSE REACTIONS. MAY INSTRUCT AND REINFORCE MEDICATION TEACHING RELATED TO THE USE OF MEDICATIONS, DOSAGE, FREQUENCY, PURPOSE, SIDE EFFECTS, AND TO REPORT COMPLICATIONS.] Future Scheduled Test RISK FOR H OSPITALIZATION; RN TO ASSESS/TEACH, MANAGEMENT TECH/GAS PROVER TO OBSERVE/TEACH PATIENT/CAREGIVER ON RISK FOR HOSPITALIZATION/EMERGENCY ROOM VISITS, TEACH SIGNS AND SYMPTOMS THAT PUT PATIENT AT RISK, WHEN TO NOTIFY NURSE/PHYSICIAN OF COMPLICATIONS/DECLINE, AND WHEN TO CALL 911. [code = RISK FOR HOSPITALIZATION; RN TO ASSESS/TEACH, MANAGEMENT TECH/GAS PROVER TO OBSERVE/TEACH PATIENT/CAREGIVER ON RISK FOR HOSPITALIZATION/EMERGENCY ROOM VISITS, TEACH SIGNS AND SYMPTOMS THAT PUT PATIENT AT RISK, WHEN TO NOTIFY NURSE/PHYSICIAN OF COMPLICATIONS/DECLINE, AND WHEN TO CALL 911.] Future Scheduled Test CARDIOVASC ULAR SYSTEM; RN TO ASSESS/TEACH, GAS PROVER/MANAGEMENT TECH TO OBSERVE/TEACH RELATED TO ALTERED CARDIOVASCULAR STATUS TO MINIMIZE COMPLICATIONS AND REDUCE HOSPITALIZATION. [code = CARDIOVASCULAR SYSTEM; RN TO ASSESS/TEACH, GAS PROVER/MANAGEMENT TECH TO OBSERVE/TEACH RELATED TO ALTERED CARDIOVASCULAR STATUS TO MINIMIZE COMPLICATIONS AND REDUCE HOSPITALIZATION.] Future Scheduled Test HYPERTENSI ON MANAGEMENT; RN TO ASSESS AND TEACH, GAS PROVER/MANAGEMENT TECH TO OBSERVE AND TEACH WARNING SIGNS AND SYMPTOMS TO AVOID HOSPITALIZATION. [code = HYPERTENSION MANAGEMENT; RN TO ASSESS AND TEACH, GAS PROVER/MANAGEMENT TECH TO OBSERVE AND TEACH WARNING SIGNS AND SYMPTOMS TO AVOID HOSPITALIZATION.] Future Scheduled Test ARRHYTHMIA MANAGEMENT; RN TO ASSESS AND TEACH, GAS PROVER/MANAGEMENT TECH TO OBSERVE AND TEACH WARNING SIGNS AND SYMPTOMS TO AVOID HOSPITALIZATION. [code = ARRHYTHMIA MANAGEMENT; RN TO ASSESS AND TEACH, GAS PROVER/MANAGEMENT TECH TO OBSERVE AND TEACH WARNING SIGNS AND SYMPTOMS TO AVOID HOSPITALIZATION.] Future Scheduled Test HEART FAIL URE; RN TO ASSESS/TEACH, GAS PROVER/MANAGEMENT TECH TO OBSERVE/TEACH CARDIOPULMONARY SYSTEM TO IDENTIFY SIGNS [...] [code = HEART FAILURE; RN TO ASSESS/TEACH, GAS PROVER/MANAGEMENT TECH TO OBSERVE/TEACH CARDIOPULMONARY SYSTEM TO IDENTIFY SIGNS [...] SYSTEM MANAGEMENT; RN TO ASSESS AND TEACH, GAS PROVER/MANAGEMENT TECH TO OBSERVE AND TEACH RELATED TO ALTERED RESPIRATORY STATUS TO MINIMIZE COMPLICATIONS AND REDUCE HOSPITALIZATION. [code = RESPIRATORY SYSTEM MANAGEMENT; RN TO ASSESS AND TEACH, GAS PROVER/MANAGEMENT TECH TO OBSERVE AND TEACH RELATED TO ALTERED RESPIRATORY STATUS TO MINIMIZE COMPLICATIONS AND REDUCE HOSPITALIZATION.] Future Scheduled Test COPD MANAG EMENT; RN TO ASSESS AND TEACH, GAS PROVER/MANAGEMENT TECH TO OBSERVE AND TEACH SIGNS/SYMPTOMS OF COPD EXACERBATION AND PROVIDE EARLY INTERVENTIONS TO MINIMIZE RISK OF HOSPITALIZATION. RN/GAS PROVER/MANAGEMENT TECH TO INSTRUCT ON SELF-CARE MANAGEMENT INCLUDING BREATHING TECHNIQUES, AIRWAY CLEARANCE, AND PROPER USE OF COPD MEDICATIONS. RN TO ASSESS AND TEACH, GAS PROVER/MANAGEMENT TECH TO OBSERVE AND TEACH PATIENT/CAREGIVER ABILITY TO MONITOR AND RECORD VITAL SIGNS INCLUDING PULSE OXIMETRY AND BLOOD PRESSURE. PULSE OXIMETER AND BP MONITOR TO BE PROVIDED IF NEEDED / ORDERED [code = COPD MANAGEMENT; RN TO ASSESS AND TEACH, GAS PROVER/MANAGEMENT TECH TO OBSERVE AND TEACH SIGNS/SYMPTOMS OF COPD EXACERBATION AND PROVIDE EARLY INTERVENTIONS TO MINIMIZE RISK OF HOSPITALIZATION. RN/GAS PROVER/MANAGEMENT TECH TO INSTRUCT ON SELF-CARE MANAGEMENT INCLUDING BREATHING TECHNIQUES, AIRWAY CLEARANCE, AND PROPER USE OF COPD MEDICATIONS. RN TO ASSESS AND TEACH, GAS PROVER/MANAGEMENT TECH TO OBSERVE AND TEACH PATIENT/CAREGIVER ABILITY TO MONITOR AND RECORD VITAL SIGNS INCLUDING PULSE OXIMETRY AND BLOOD PRESSURE. PULSE OXIMETER AND BP MONITOR TO BE PROVIDED IF NEEDED / ORDERED] Future Scheduled Test PAIN MANAG EMENT; RN TO ASSESS AND TEACH, MANAGEMENT TECH/GAS PROVER TO OBSERVE AND TEACH AND PROVIDE EDUCATION ON PAIN MANAGEMENT TECHNIQUES. [code = PAIN MANAGEMENT; RN TO ASSESS AND TEACH, MANAGEMENT TECH/GAS PROVER TO OBSERVE AND TEACH AND PROVIDE EDUCATION ON PAIN MANAGEMENT TECHNIQUES.] Future Scheduled Test DIABETES M ANAGEMENT; RN TO ASSESS AND TEACH, MANAGEMENT TECH/GAS PROVER TO OBSERVE AND TEACH INSTRUCTIONS OF DIABETIC CARE TO INCLUDE: DIET ADA SKIN CARE, SIGNS AND SYMPTOMS OF HYPO/HYPERGLYCEMIA, PROPER ADMINISTRATION OF DIABETIC MEDICATION. RN/MANAGEMENT TECH/GAS PROVER TO INSTRUCT ON DIABETIC FOOT CARE AND MONITOR FOR SKIN LESIONS ON LOWER EXTREMITIES. BLOOD GLUCOSE TESTING PRN FREQ. RN TO ASSESS AND TEACH, MANAGEMENT TECH/GAS PROVER TO OBSERVE AND TEACH PATIENT/CAREGIVER ABILITY TO PERFORM AND RECORD BLOOD GLUCOSE TESTING ORDERED AND TO REPORT ABNORMAL FINDINGS TO PHYSICIAN. RN/MANAGEMENT TECH/GAS PROVER MAY PERFORM BLOOD GLUCOSE TEST NEEDED. RN/MANAGEMENT TECH/GAS PROVER TO REPORT TO PHYSICIAN BLOOD GLUCOSE READINGS GREATER THAN 300 OR LESS THAN 70 RN/MANAGEMENT TECH/GAS PROVER TO INSTRUCT PATIENT ON IMPORTANCE OF HGBA1C MONITORING, KIDNEY FUNCTION TEST, EYE AND FOOT EXAMS. [code = DIABETES MANAGEMENT; RN TO ASSESS AND TEACH, MANAGEMENT TECH/GAS PROVER TO OBSERVE AND TEACH INSTRUCTIONS OF DIABETIC CARE TO INCLUDE: DIET ADA SKIN CARE, SIGNS AND SYMPTOMS OF HYPO/HYPERGLYCEMIA, PROPER ADMINISTRATION OF DIABETIC MEDICATION. RN/MANAGEMENT TECH/GAS PROVER TO INSTRUCT ON DIABETIC FOOT CARE AND MONITOR FOR SKIN LESIONS ON LOWER EXTREMITIES. BLOOD GLUCOSE TESTING PRN FREQ. RN TO ASSESS AND TEACH, MANAGEMENT TECH/GAS PROVER TO OBSERVE AND TEACH PATIENT/CAREGIVER ABILITY TO PERFORM AND RECORD BLOOD GLUCOSE TESTING ORDERED AND TO REPORT ABNORMAL FINDINGS TO PHYSICIAN. RN/MANAGEMENT TECH/GAS PROVER MAY PERFORM BLOOD GLUCOSE TEST NEEDED. RN/MANAGEMENT TECH/GAS PROVER TO REPORT TO PHYSICIAN BLOOD GLUCOSE READINGS GREATER THAN 300 OR LESS THAN 70 RN/MANAGEMENT TECH/GAS PROVER TO INSTRUCT PATIENT ON IMPORTANCE OF HGBA1C MONITORING, KIDNEY FUNCTION TEST, EYE AND FOOT EXAMS.] Future Scheduled Test GENITOURIN ALONSO MANAGEMENT; RN TO ASSESS AND TEACH, GAS PROVER/MANAGEMENT TECH TO OBSERVE AND TEACH RELATED TO ALTERED GENITOURINARY STATUS TO MINIMIZE COMPLICATIONS AND REDUCE HOSPITALIZATION. [code = GENITOURINARY MANAGEMENT; RN TO ASSESS AND TEACH, GAS PROVER/MANAGEMENT TECH TO OBSERVE AND TEACH RELATED TO ALTERED GENITOURINARY STATUS TO MINIMIZE COMPLICATIONS AND REDUCE HOSPITALIZATION.] Future Scheduled Test URINARY MO LECULAR TESTING PROTOCOL UP TO 2 PRN RN/GAS PROVER/MANAGEMENT TECH VISITS MAY BE PERFORMED FOR S/S OF UTI. RN TO ASSESS, GAS PROVER/MANAGEMENT TECH TO OBSERVE INITIATION OF UTI PROTOCOL. RN/MANAGEMENT TECH/GAS PROVER TO INSTRUCT PATIENT AND/OR CAREGIVER ON S/S OF UTI TO REPORT TO RN/MANAGEMENT TECH/GAS PROVER IF NEW OR WORSENING SYMPTOMS. DRINK PLENTY OF WATER THROUGHOUT THE DAY TO MAINTAIN HYDRATION (UNLESS CONTRAINDICATED.) URINATE WHEN THE URGE IS FELT, DO NOT WAIT. WASH GENITALS DAILY. WIPE FROM FRONT TO BACK AFTER HAVING A BOWEL MOVEMENT. RN/MANAGEMENT TECH/GAS PROVER TO OBTAIN URINE SPECIMEN FOR MOLECULAR URINE TESTING BY OPTION 1 OR OPTION 2 (OPTION 1) RN/MANAGEMENT TECH/GAS PROVER TO OBTAIN URINE SPECIMEN FOR U/A WITH REFLEX TO UTI PANEL (MOLECULAR) VIA CLEAN CATCH URINE AND IF UNABLE TO OBTAIN MAY PERFORM AN IN AND OUT CATH. IF PATIENT HAS INDWELLING CATHETER MAY OBTAIN FROM SAMPLING PORT. (OPTION 2) RN/MANAGEMENT TECH/GAS PROVER TO OBTAIN URINE SPECIMEN FOR UTI PANEL (MOLECULAR) VIA SWAB COLLECTION METHOD FROM ADULT BRIEF/DIAPER OR PAD IF PATIENT IS INCONTINENT. INCLUDE ANTIBIOTIC/ANTIFUNGAL RESISTANCE TESTING INCLUDE URINALYSIS (ONLY FOR CLEAN CATCH/ IN AND OUT CATH) NOTIFY PROVIDER OF RESULTS AND OBTAIN FURTHER ORDERS. [code = URINARY MOLECULAR TESTING PROTOCOL UP TO 2 PRN RN/GAS PROVER/MANAGEMENT TECH VISITS MAY BE PERFORMED FOR S/S OF UTI. RN TO ASSESS, GAS PROVER/MANAGEMENT TECH TO OBSERVE INITIATION OF UTI PROTOCOL. RN/MANAGEMENT TECH/GAS PROVER TO INSTRUCT PATIENT AND/OR CAREGIVER ON S/S OF UTI TO REPORT TO RN/MANAGEMENT TECH/GAS PROVER IF NEW OR WORSENING SYMPTOMS. DRINK PLENTY OF WATER THROUGHOUT THE DAY TO MAINTAIN HYDRATION (UNLESS CONTRAINDICATED.) URINATE WHEN THE URGE IS FELT, DO NOT WAIT. WASH GENITALS DAILY. WIPE FROM FRONT TO BACK AFTER HAVING A BOWEL MOVEMENT. RN/MANAGEMENT TECH/GAS PROVER TO OBTAIN URINE SPECIMEN FOR MOLECULAR URINE TESTING BY OPTION 1 OR OPTION 2 (OPTION 1) RN/MANAGEMENT TECH/GAS PROVER TO OBTAIN URINE SPECIMEN FOR U/A WITH REFLEX TO UTI PANEL (MOLECULAR) VIA CLEAN CATCH URINE AND IF UNABLE TO OBTAIN MAY PERFORM AN IN AND OUT CATH. IF PATIENT HAS INDWELLING CATHETER MAY OBTAIN FROM SAMPLING PORT. (OPTION 2) RN/MANAGEMENT TECH/GAS PROVER TO OBTAIN URINE SPECIMEN FOR UTI PANEL (MOLECULAR) VIA SWAB COLLECTION METHOD FROM ADULT BRIEF/DIAPER OR PAD IF PATIENT IS INCONTINENT. INCLUDE ANTIBIOTIC/ANTIFUNGAL RESISTANCE TESTING INCLUDE URINALYSIS (ONLY FOR CLEAN CATCH/ IN AND OUT CATH) NOTIFY PROVIDER OF RESULTS AND OBTAIN FURTHER ORDERS.] Future Scheduled Test FALL REDUC TION MANAGEMENT; RN TO ASSESS AND OBSERVE, GAS PROVER/MANAGEMENT TECH TO OBSERVE FALL RISK FACTORS AND EDUCATE PATIENT/CAREGIVER ON STRATEGIES TO MINIMIZE THE RISK OF FALLING. [code = FALL REDUCTION MANAGEMENT; RN TO ASSESS AND OBSERVE, GAS PROVER/MANAGEMENT TECH TO OBSERVE FALL RISK FACTORS AND EDUCATE [...] Scheduled Test PRN VISITS ; NUMBER OF RN/GAS PROVER/MANAGEMENT TECH VISITS: 1 RN/GAS PROVER/MANAGEMENT TECH TO PERFORM: ASSESSMENT FOR THE FOLLOWING REASONS: CARDIAC COMPLICATIONS [code = PRN VISITS; NUMBER OF RN/GAS PROVER/MANAGEMENT TECH VISITS: 1 RN/GAS PROVER/MANAGEMENT TECH TO PERFORM: ASSESSMENT FOR THE FOLLOWING REASONS: CARDIAC COMPLICATIONS] Future Scheduled Test CANCER MAN AGEMENT; RN TO ASSESS AND TEACH, MANAGEMENT TECH/GAS PROVER TO OBSERVE AND TEACH AND PROVIDE EDUCATION ON CANCER. [code = CANCER MANAGEMENT; RN TO ASSESS AND TEACH, MANAGEMENT TECH/GAS PROVER TO OBSERVE AND TEACH AND PROVIDE EDUCATION [...] End Date/Time Encounter Type Admission Type Attending [facility] Care Department Encounter ID Discharge Date Discharge Status Discharge Condition Discharge Reason Percent Goals Met 2025-09-24 00:00:00 2025-11-22 00:00:00 Outpatient NEW ADMISSION [facility] [id number] [id number]
== END 2025-09-28 10:40 | disposition home or self-care (01) ==
PROVIDERS: PCP Family Medicine; Visit Provider Nurse Practitioner Family
DX: D64.9 Anemia, unspecified (principal); E78.2 Mixed hyperlipidemia; I10 Essential (primary) hypertension; E11.21 Type 2 diabetes mellitus with diabetic nephropathy; E55.9 Vitamin D deficiency, unspecified; R79.89 Other specified abnormal findings of blood chemistry
CPT/HCPCS: 36415; 80053; 80061; 82043; 82306; 82607; 83036; 83540; 83550; 83735; 84439; 84443